=== PATIENT | male | born 1950 | race Caucasian/White ===

== ENCOUNTER 2016-08-28 05:53 | Outpatient (CLI) | payer MEDICARE ==
[~2016-08-28] VITALS: Ht 175.3 cm; Wt 158.9 kg
[~2016-08-28 05:53] MED LIST: ADV500-14 IH; ALBU2.5V4 NEB; AMOX-355 PO; APIX5TAB PO; ASPI-808 PO; ASPI-983 PO; BETA15CR37 TP; BLOO-662 MC; CALC-9 PO; CEFD300C3 PO; CEPH500C PO; CETI1TAB61 PO; CIPR-225 PO; CIPR500T4 PO; CLIN150C17 PO; CLOB15CR2 TP; CLOP75TA; CLOP75TA28 PO; DILT240C47 PO; DOCU100C37 PO; FINA5TAB6 PO; FLUT1BLS IH; FLUT1DIS27 IH; FRSM20T PO; FURO20TA4 PO; FURO40TA4 PO; GLUC1TAB9 PO; GUAI600T59 PO; HYDR-3816 PO; HYDR-700 PO; INSU100C4 SQ; INSU100I10 SQ; INSU100I14 SQ; LACT10SO PO; LEVO25TA5 PO; LEVO750T24 PO; LOSA100T16 PO; LOSA100T28 PO; LVT.025T PO; MAGN400T6 PO; MELO-195 PO; MELO15TA39 PO; METF-380; METO-272 PO; METO5TAB6 PO; MONT10TA24 PO; MTL5T PO; NAPR220T66 PO; NFIPRATRNS NSEACH; NITR-65 PO; ONDA8TAB13 SL; PHEN-640 PO; POTA20TA15 PO; POTA20TA8 PO; PRD10T PO; PRD20T PO; ROSU10TA12; ROSU5TAB PO; ROSU5TAB9 PO; RT-ALBUINH IH; SENN25TA8 PO; SPIR25TA3 PO; TAMS0.4C2 PO; TAMS0.4C98 PO; TIOT4MIS2 IH; [UNRECOGNIZED DRUG - CODE] INH
== END 2016-08-28 13:37 ==
LOC: PREOP 05:53
PROVIDERS: ATTEND Surgery Pediatric Surgery
DX: Z01.818 Encounter for other preprocedural examination (principal); K92.1 Melena; K21.9 Gastro-esophageal reflux disease without esophagitis

== ENCOUNTER 2016-08-30 08:54 | Day surgery (SDC) | payer OTHER, MEDICARE ==
[~2016-08-30] VITALS: Ht 175.3 cm; Wt 158.9 kg
[~2016-08-30 08:54] MED LIST changes: -PANT40TA2 PO
[2016-08-30] MEDS ORDERED: NS IV 500 ML 500 ML ONE (09:20)
[2016-08-30] MEDS ORDERED: LIDOCAINE JELLY 2% (XYLOCAINE) 5 ML TUBE MM PRN (10:00)
[2016-08-30] MEDS ORDERED: FLUMAZENIL (ROMAZICON) 0.1 MG/ML 5 ML VIAL INJ PRN (10:00)
[2016-08-30] MEDS ORDERED: HURRICAINE EXT TUBE (BENZOCAINE) XX PRN (10:00)
[2016-08-30] MEDS ORDERED: fentaNYL INJECTION 100 MCG/2 ML AMP IVP PRN (10:00)
[2016-08-30] MEDS ORDERED: NS IV 500 ML 500 ML IV SCH (10:00)
[2016-08-30] MEDS ORDERED: NALOXONE 0.4 MG/ML 1 ML (NARCAN) VIAL IVP PRN (10:00)
[2016-08-30] MEDS ORDERED: MIDAZOLAM 2 MG/2 ML (VERSED) VIAL IVP PRN (10:00)
[2016-08-30 10:04] VITALS: BP 132/70
--- NOTE | 2016-08-30 10:27 | Progress Note-Pre Operative ---
Pre-Operative Progress Note H&P Reviewed The H&P was reviewed, patient examined and no changes noted. Date H&P Reviewed: Aug 30, 2016 Time H&P Reviewed: 09:52 Pre-Operative Diagnosis: PUD, dark tarry stools HAWK GREENWOOD MD Aug 30, 2016 10:27 am
[2016-08-30] MEDS ORDERED: morphine INJ 10 MG/ML 1ML (SYR OR VIAL) IV PRN (10:30)
[2016-08-30] MEDS ORDERED: ONDANSETRON 4 MG/2 ML (SDV) Z0FRAN IV PRN (10:30)
[2016-08-30] MEDS ORDERED: HYDROcodone/APAP 5 MG/325 MG (LORTAB) TAB PO PRN (10:30)
[2016-08-30] MEDS ORDERED: ACETAMINOPHEN 325 MG TABLET/CAPLET (TYLENOL) PO PRN (10:30)
[2016-08-30] MEDS ORDERED: ROSU5TAB PO (10:33)
[2016-08-30] MEDS ORDERED: MIDAZOLAM 2 MG/2 ML (VERSED) VIAL ONE (11:32)
[2016-08-30] MEDS ORDERED: PROPOFOL INJECTION 50 ML IV ONE (11:32)
[2016-08-30] MEDS ORDERED: proPOfol 200 MG/20 ML (DIPRIVAN) VIAL IV ONE (12:11)
--- NOTE | 2016-08-30 12:39 | Progress Note-Post Operative ---
Post-Operative Progess Note Pre-Operative Diagnosis PUD, dark tarry stools Post-Operative Diagnosis reflux esophagitis(class B), small HH(1cm), moderate gastritis. chronic stage 2 ext and int hemorrhoids, moderate sigmoid diverticulosis, splenic flexure polyp. Post-Op Procedure Note Date of Procedure: Aug 30, 2016 Name of Procedure: EGD with bx. Colonoscopy with bx. Anesthesia Type MAC Estimated blood loss (mL): minimal Specimen(s) collected GE jxn, antrum, splenic flexure polyp HAWK GREENWOOD MD Aug 30, 2016 12:39 pm
[2016-08-30] MEDS ORDERED: PANT40TA2 PO (12:40)
--- NOTE | 2016-08-30 12:41 | Discharge Inst-Surgical ---
D/C Lap Instructions-TIMO New, Converted, or Re-Newed RX: RX on Chart Follow Up 5 years Activity as tolerated High Fiber Diet 25g or more per day Avoid Alcohol, Caffeine, Spicy [place] and Acid foods. Drink 64 fluid oz or more of fluids per day. Symptoms to Report: Fever over 101 degree F, Nausea/Vomiting If any problems/questions: Contact your physician or go to Emergency Room HAWK GREENWOOD MD Aug 30, 2016 12:41 pm
[2016-08-30] MEDS ORDERED: HURRICAINE EXT TUBE (BENZOCAINE) ONE (12:47)
[2016-08-30] MEDS ORDERED: LIDOCAINE JELLY 2% (XYLOCAINE) 5 ML TUBE ONE (12:47)
[2016-08-30 12:50] VITALS: BP 115/59
[2016-08-30 13:20] VITALS: BP 130/70
[2016-08-30 13:25] VITALS: BP 130/70
--- NOTE | 2016-08-31 12:41 | OPERATIVE REPORT ---
PROCEDURE PHYSICIAN: HAWK JOY DATE OF PROCEDURE: 08/30/2016 ATTENDING PHYSICIAN: Dr. Hutton. PREOPERATIVE DIAGNOSIS: 1. Peptic ulcer disease. 2. Screening colonoscopy. POSTOPERATIVE DIAGNOSES: 1. Reflux esophagitis, class B. 2. Small hiatal hernia, approximately 1 cm in size. 3. Moderate severity gastritis. 4. Chronic, stage II external and internal hemorrhoids. 5. Moderate sigmoid diverticulosis. 6. Polyp at near the splenic flexure, approximately 3 mm in size. PROCEDURE: 1. EGD with biopsy. 2. Colonoscopy with biopsy. SURGEON: Dr. Joy. ANESTHESIA: Monitored anesthesia care, administered by anesthesia. ESTIMATED BLOOD LOSS: Minimal. FINDINGS: EGD: 1. Reflux esophagitis, class B. 2. Small hiatal hernia, approximately 1 cm in size. 3. Moderate severity gastritis. 4. Pylorus and duodenum appeared normal. COLONOSCOPY: 1. Chronic stage II external and internal hemorrhoids, not actively edematous or inflamed and no bleeding. 2. Prostate gland was palpable and appeared normal. 3. There was a moderate sigmoid diverticulosis. 4. A small polyp at the splenic flexure approximately 3 mm in size. DISPOSITION: The patient tolerated the procedure well. BRIEF HISTORY: Mr. Augutso Ferraro is a 65-year-old male with a history of multiple medical problems including COPD, hypertension, hypercholesterolemia, as well as history of myocardial infarction in November 2015 and diabetes. He has also recently admitted for pneumonia approximately one month ago and admitted for 3 days. He reports that he did receive steroids and at the time he noticed dark tarry stools followed by black stools. He has a history of peptic ulcer disease. He also reports intermittent episodes of a reflux type of symptoms. He also reports his last colonoscopy was in 1989 due to what sounds to be anorectal pain; however only benign findings. He does not report any family history of colon cancer. PROCEDURE: The patient was brought to the endoscopy suite, laid in the left lateral decubitus position. After adequate IV pain medications and monitored anesthesia care administered by anesthesia, the mouthpiece was applied. The endoscope was placed in the mouth, visualizing the pharynx and hypopharyngeal region. Vocal cords, epiglottis and vallecula identified and appeared to be normal. The endoscope was then gently intubated in the esophageal opening and the esophagus insufflated. The endoscope was advanced through the first, second, and 3rd portions esophagus. At the level of the GE junction, a reflux esophagitis, class B identified. There were no ulcers or strictures identified in this region. A biopsy was taken with forceps with visualization of good hemostasis. The endoscope was then easily advanced into stomach and endoscope retroflexed visualizing a small hiatal hernia, approximately 1 cm in size. There was a moderate severity gastritis more towards the stomach antrum. There were no polyps, ulcers or any neoplasms identified. A biopsy was taken of the stomach antrum, with forceps with visualization of good hemostasis. The endoscope was then advanced through the pylorus and first and second portions of duodenum which appeared normal. The endoscope was slowly withdrawn while taking a second look and suctioning of residual air with no additional findings. The patient tolerated this portion of the procedure well. For his reflux esophagitis, hiatal hernia and gastritis, we will start him on Protonix 40 mg daily, as well as the necessary lifestyle and diet accommodation including smaller, more frequent meals, avoidance of eating at night, as well as head elevation while lying supine. He also needs to avoid caffeinated beverages, spicy, greasy and acidic foods and proceed with a weight loss regimen as well. Under the same monitored anesthesia care, we then proceeded with the colonoscopy portion of the procedure. A digital rectal examination was performed, which revealed chronic, stage II external and internal hemorrhoids which were not actively edematous or inflamed and no bleeding. Normal sphincter tone was felt and there were no palpable masses. Prostate gland was palpable and appeared normal. The endoscope was then intubated into the anus, rectum gently insufflated. The endoscope was then advanced into valves of [place] the rectum with no polyps or any neoplasms identified. We then proceeded through the sigmoid colon where a moderate sigmoid diverticulosis identified. There were no mucosal inflammatory changes to indicate any active diverticulitis. The endoscope was then advanced through descending colon. At approximately the splenic flexure a small sessile polyp, approximately 3 mm in size was identified. This was biopsied and destroyed using forceps and electrocautery with visualization of good hemostasis. The endoscope was then advanced through the remainder of the transverse, and ascending colon to the cecum. These segments were normal. The endoscope was then slowly withdrawn while taking a second look and suctioning residual air with no additional findings. The patient tolerated the procedure well. We will have him continue with medical management with a high fiber diet with least 30 grams of fiber per day, as well as at least 64 fluid ounces of water daily to promote soft stools on a daily basis. We will recommend a follow-up colonoscopy in 5 years. Job ID: [id number] Dictated Date: 08/30/2016 12:47:53 American Sign Language Interpreter Date: 08/31/2016 12:30:45 / elvie BOYER
== END 2016-08-30 13:25 | disposition home or self-care (01) ==
LOC: SDC 08:54
PROVIDERS: ATTEND Surgery Pediatric Surgery
DX: Z12.11 Encounter for screening for malignant neoplasm of colon (principal); K21.0 Gastro-esophageal reflux disease with esophagitis; K44.9 Diaphragmatic hernia without obstruction or gangrene; K64.1 Second degree hemorrhoids; K57.90 Diverticulosis of intestine, part unspecified, without perforation or abscess without bleeding; K63.5 Polyp of colon

== ENCOUNTER → 2016-08-30 | Outpatient (CLI) | payer OTHER, MEDICARE ==
[~2016-08-30] MED LIST changes: +PANT40TA2 PO
--- NOTE | 2016-08-30 14:14 | Diagnostic Imaging Report ---
INDICATION: Pneumonia. TECHNIQUE: PA and lateral views of the chest were obtained. COMPARISON: 07/26/2016. FINDINGS: There is persistent cardiomegaly and pulmonary venous congestion. Mixed interstitial and alveolar density in both lungs has remained stable. There is no evidence of pneumothorax or new infiltrate. There is no significant pleural effusion. Post operative changes in the sternum are again noted. IMPRESSION: The pulmonary densities have not significantly changed and may reflect edema and/or pneumonitis. There is no consolidation or new infiltrate identified. Dictated by: Dictated on workstation # [id number]
== END ==
LOC: RAD 13:54
PROVIDERS: ATTEND Nurse Practitioner Family
DX: J18.9 Pneumonia, unspecified organism (principal)
CPT/HCPCS: 71020

== ENCOUNTER 2016-12-22 11:20 | Outpatient (RCR) | payer OTHER, MEDICARE ==
[~2016-12-22 11:20] MED LIST changes: +PANT40TA2 PO
== END 2016-12-22 12:04 | disposition home or self-care (01) ==
PROVIDERS: ATTEND Orthopaedic Surgery
DX: M25.551 Pain in right hip (principal)

== ENCOUNTER 2017-04-21 14:11 | Inpatient (IN) | payer OTHER, MEDICARE ==
[~2017-04-21] VITALS: Ht 175.3 cm; Wt 161.3 kg
[~2017-04-21 14:11] MED LIST changes: -GUAI600T59 PO; +GUAI600T86 PO; -METO-272 PO; +METO-370 PO
--- OUTSIDE RECORDS SUMMARY | 2017-04-21 14:18 | XMS REPORT | Clinical Summary ---
Author Author User, [employer] America Hutton DO, FACP Address Unknown Phone Allergies, Adverse Reactions, Alerts Allergy Name Reaction Description Start Date Severity Status Provider CODEINE Critical Active America Hutton [facility] NATURAL FISH OIL nausea Critical Active America Hutton STATINS nausea Critical No Longer Active America Hutton FISH OIL nausea Critical No Longer Active America Hutton Conditions or Problems Problem Name Problem Code Onset Date Status Entry Date Provider Comment Standard Description Annotate DIABETES MELLITUS, NONINSULIN DEPENDENT (NIDDM) 250.00 Active America Hutton Diabetes mellitus without mention of complication, type II or unspecified type, not stated as uncontrolled HYPERTENSION 401.1 Active America Hutton Benign essential hypertension HYPERCHOLESTEROLEMIA 272.0 Active America Hutton Pure hypercholesterolemia CAD 414.00 Active America Hutton Coronary atherosclerosis of unspecified type of vessel, [place] or graft CHRONIC AIRWAY OBSTRUCTION (COPD) 496 Resolved America Hutton Chronic airway obstruction, not elsewhere classified VACCINE AGAINST INFLUENZA V04.81 Resolved America Hutton Need for prophylactic vaccination and inoculation against influenza URINARY FREQUENCY 788.41 Resolved America Hutton Urinary frequency UTI 599.0 Resolved America Hutton Urinary tract infection, site not specified PROSTATITIS, ACUTE 601.0 Resolved America Hutton Acute prostatitis INFLUENZA W/RESPIRATORY MANIFESTATION NEC 487.1 Resolved America Hutton Influenza with other respiratory manifestations FEVER 780.6 Resolved America Hutton Fever and other physiologic disturbances of temperature regulation DERMATITIS 692.9 Resolved America Hutton Contact dermatitis and other eczema, unspecified cause WHEEZING 786.07 Resolved America Hutton Wheezing ASTHMA, CHRN OBST W/(ACUTE) EXACERBATION 493.22 Resolved America Hutton Chronic obstructive asthma, with (acute) exacerbation PHARYNGITIS, ACUTE 462 Resolved America Hutton Acute pharyngitis HYPOKALEMIA 276.8 Active America Hutton Hypopotassemia HYPOMAGNESEMIA 275.2 Active America Hutton Disorders of magnesium metabolism SINUSITIS, SPHENOIDAL, ACUTE 461.3 Resolved America Hutton Acute sphenoidal sinusitis RESPIRATORY FAILURE, ACUTE 518.81 Resolved America Hutton Acute respiratory failure LUNG ABSCESS 513.0 Resolved America Hutton Abscess of lung TESTOSTERONE DEFICIENCY 257.2 Active America Hutton Other testicular hypofunction COUGH 786.2 Resolved America Hutton Cough PNEUMONIA 486 Resolved America Hutton Pneumonia, organism unspecified BRONCHIECTASIS 494.0 Resolved America Hutton Bronchiectasis without acute exacerbation MASS, LUNG 786.6 Resolved America Hutton Swelling, mass, or lump in chest CHF 428.0 Active America Hutton Congestive heart failure, unspecified CATARACT ASSOCIATED WITH OTHER SYNDROMES 366.44 Resolved America Hutton Cataract associated with other syndromes BACK PAIN 724.5 Resolved America Hutton Backache, unspecified LEUKOCYTOSIS 288.60 Resolved America Hutton Leukocytosis, unspecified HEALTH SCREENING V70.0 Resolved America Hutton Routine general medical examination at a health care facility URTICARIA, ACUTE 708.9 Resolved America Hutton Unspecified urticaria DERMATITIS 692.9 Resolved America Hutton Contact dermatitis and other eczema, unspecified cause BRONCHITIS 490 Inactive America Hutton Bronchitis, not specified as acute or chronic BRONCHITIS 490 Inactive America Hutton Bronchitis, not specified as acute or chronic WHEEZING 786.07 Inactive America Hutton Wheezing BRONCHITIS 490 Inactive America Hutton Bronchitis, not specified as acute or chronic WHEEZING 786.07 Inactive America Chaveze Hutton Wheezing BRONCHITIS 490 Inactive America Hutton Bronchitis, not specified as acute or chronic WHEEZING 786.07 Inactive America Hutton Wheezing HEALTH SCREENING V70.0 Resolved America Hutton Routine general medical examination at a health care facility HYPOTHYROIDISM, PRIMARY 244.9 Active America Hutton Unspecified hypothyroidism ORTHOSTATIC DIZZINESS 780.4 Resolved America Hutton Dizziness and giddiness OBSTRUCTIVE CHRONIC BRONCHITIS, WITHOUT EXACERBATION 491.20 Active America Hutton Obstructive chronic bronchitis, without exacerbation HEALTH SCREENING V70.0 Resolved America Hutton Routine general medical examination at a health care facility INFLUENZA W/RESPIRATORY MANIFESTATION NEC 487.1 Resolved America Hutton Influenza with other respiratory manifestations ULCER OF OTHER PART OF FOOT 707.15 Active America Hutton Ulcer of other part of foot Medication List Medication Instructions Start Date Stop Date Generic Name NDC Status Provider Patient Instruction GENTAMICIN SULFATE 0.1 % CREA Apply to affected areas BID GENTAMICIN SULFATE 04434499925 Active Ramila Oates NOVOLOG 100 U/ML SOLN 20 units before meals INSULIN ASPART 82420470012 Active America Hutton ATROVENT 0.06 % SOLN 2 puffs each nostril TID prn runny nose 2014 IPRATROPIUM BROMIDE 51785690329 No Longer Active Ramila Oates NYSTATIN 395799 U/ML SUSP 5cc PO QID for 7 days NYSTATIN 52806385506 No Longer Active America Hutton TAMIFLU 75 MG CAPS 1 po BID OSELTAMIVIR PHOSPHATE 77188757835 No Longer Active America Hutton NYSTATIN 204940 UNIT/GM CREA apply to affected areas BID for 7 days NYSTATIN 42124934186 No Longer Active Ramila Oates SPIRIVA HANDIHALER 18 MCG CAPS ONE INHALATION DAILY TIOTROPIUM BROMIDE MONOHYDRATE 99718478859 Active America Hutton ATROVENT HFA 17 MCG/ACT AERS 2 puffs BID IPRATROPIUM BROMIDE HFA 81931325853 No Longer Active America Hutton PERFOROMIST 20 MCG/2ML NEBU 1 vial Neb treatment BID FORMOTEROL FUMARATE 94747922980 No Longer Active America Hutton VENTOLIN HFA 108 (90 BASE) MCG/ACT AERS 2 puffs Q 4 hours prn ALBUTEROL SULFATE 03595882677 No Longer Active America Hutton HYDROXYZINE HCL 25 MG TABS 1 PO Q 6HRS PRN HYDROXYZINE HCL 89891427591 Active Ramila Oates SINGULAIR 10 MG TABS 1 PO AT Q HS MONTELUKAST SODIUM 55456453001 Active America Hutton LANTUS SOLOSTAR 100 UNIT/ML SOLN 20 units at night INSULIN GLARGINE 10059634951 Active America Hutton AMLACTIN 12 % LOTN Apply a small amount to affected areas BID AMMONIUM LACTATE 20147910092 No Longer Active America Hutton ADVAIR DISKUS 500-50 MCG/DOSE AEPB 1 puff BID FLUTICASONE- SALMETEROL 79647831826 Active Ramila Oates POTASSIUM CHLORIDE ER 20 MEQ CR-TABS 1-2 PO BID POTASSIUM CHLORIDE 72950760756 Active Ramila Oates NOVOFINE 30G X 8 MM MISC DIRECTED DX: 250.00 INSULIN PEN NEEDLE 90879095133 Active Ramila Oates PREDNISONE 10 MG TAB 2 PO daily for for 3 days then 1 PO daily for 5 days. PREDNISONE 53059319576 No Longer Active America DE PAZ'Akira NASAL SPRAY (DEXAMETHASONE, GENTAMICIN, SALINE) 2 puffs each nostril TID for [address] STRAUSS NASAL SPRAY ( DEXAMETHASONE, GENTAMICIN, SALINE) No Longer Active America Hutton CEFDINIR 300 MG CAPS 1 PO BID for 6 weeks CEFDINIR 08106878286 No Longer Active America Hutton PREDNISONE 20 MG TAB 2 pills at once for 2 days then 1 pill daily for 5 days PREDNISONE 77035799885 No Longer Active America Hutton DOXYCYCLINE HYCLATE 100 MG CAP 1 po BID DOXYCYCLINE HYCLATE 49245576587 No Longer Active America Hutton NYSTATIN 825295 U/ML SUSP 5cc PO QID for 7 days NYSTATIN 14871118483 No Longer Active America Rivka Hutton NYSTATIN 967133 U/ML SUSP 5cc PO QID for 7 days NYSTATIN 90959484309 No Longer Active America Rikva Hutton ASPIRIN 325 MG TABS 1 PO daily ASPIRIN 06389527341 No Longer Active America Rivka Hutton COZAAR 100 MG TAB 1 PO Daily LOSARTAN POTASSIUM 06711625568 Active Ramila Oates PREDNISONE 20 MG TAB 2 pills at once for 2 days then 1 pill daily for 5 days PREDNISONE 46955734107 No Longer Active America Rivka Hutton DOXYCYCLINE HYCLATE 100 MG CAP 1 po BID DOXYCYCLINE HYCLATE 62563007482 No Longer Active America Rivka Hutton HYZAAR 100-12.5 MG TABS 1 PO daily LOSARTAN POTASSIUM-HCTZ 34961950463 No Longer Active America Rivka Hutton MOBIC 15 MG TABS 1 PO daily for arthritis MELOXICAM 98857669378 Active America Rivka Hutton PREDNISONE 20 MG TAB 2 pills at once for 2 days then 1 pill daily for 5 days PREDNISONE 23594968619 No Longer Active Americaedy Hutton LEVAQUIN 750 MG TABS 1 PO daily LEVOFLOXACIN 66161376430 No Longer Active America Rivka Hutton ANDROGEL PUMP 20.25 MG/ACT (1.62%) GEL rub in two pumps into skin daily TESTOSTERONE 84435279658 No Longer Active America Rivka Hutton ULTRAM 50 MG TAB 1 PO q 6 hrs prn TRAMADOL HCL 52626810280 No Longer Active America Rivka Hutton VITAMIN D 1000 UNIT TABS 1 PO Daily CHOLECALCIFEROL 15333069112 No Longer Active America Rivka Hutton ETODOLAC 400 MG TABS 1 PO BID ETODOLAC 64604134051 No Longer Active Americaedy Hutton LORTAB 7.5 7.5-500 MG TABS 1-2 q 4-6 hrs. prn HYDROCODONE- ACETAMINOPHEN 48518490148 No Longer Active Americaedy Hutton PLAVIX 75 MG TABS 1 po daily CLOPIDOGREL BISULFATE 09292040075 No Longer Active Americaedy Hutton ATARAX 25 MG TAB 1 PO Q6 hours prn HYDROXYZINE HCL Active Rosario Moyer PREDNISONE 20 MG TAB 2 pills at once for 2 days then 1 pill daily for 5 days PREDNISONE 60862774409 No Longer Active Americaedy Hutton ONETOUCH ULTRA BLUE STRP TEST BS QID DX: DIABETES GLUCOSE BLOOD 73084280873 Active Ramila Oates ATARAX 25 MG TAB 1 PO Q6hrs prn HYDROXYZINE HCL No Longer Active Americaedy Hutton PREDNISONE 20 MG TAB 2 pills at once for 2 days then 1 pill daily for 2 days PREDNISONE 67448286379 No Longer Active Americaedy Hutton PEN NEEDLES 5/16" 31G X 8 MM MISC as directed INSULIN PEN NEEDLE 87244681426 No Longer Active Americaedy Hutton NASONEX 50 MCG/ACT SUSP 2 Puffs ea. nostril daily MOMETASONE FUROATE 09094554332 No Longer Active Americaedy Hutton CLARINEX 5 MG TABS 1 po daily DESLORATADINE 15302395666 No Longer Active Americaedy Hutton MIRALAX POWD 1 scoop in 4oz of water PO daily POLYETHYLENE GLYCOL 3350 41919207451 No Longer Active Americaedy Hutton 10% LCD IN THC .1% Apply to arms at bedtime 10% LCD IN THC .1% No Longer Active America Rivka Hutton TRIAMCINOLONE ACETONIDE 0.025 % OINT Apply to rash on arms daily as needed. TRIAMCINOLONE ACETONIDE 00415411609 No Longer Active America Hutton ONE TOUCH ULTRA TEST STRP Test BS TID DX: Diabetes GLUCOSE BLOOD 64456376356 No Longer Active America Hutton BD U/F SHORT PEN NEEDLE 31G X 8 MM MISC as directed with insulin DX: Diabetes INSULIN PEN NEEDLE 13709660401 No Longer Active America Hutton CIALIS 20 MG TABS 1 PO as directed TADALAFIL 02629916277 No Longer Active America Hutton ONE TOUCH ULTRA MINI W/DEVICE KIT BLOOD GLUCOSE MONITORING SUPPL 76520787049 No Longer Active America Hutton PEN NEEDLES /16" 31G X 8 MM MISC as directed INSULIN PEN NEEDLE 13420016979 No Longer Active America Hutton ATARAX 25 MG TAB 1 PO Q6hrs prn itching HYDROXYZINE HCL No Longer Active America Hutton PREDNISONE 20 MG TAB 2 pills at once for 2 days then 1 pill daily for 2 days PREDNISONE 26853199954 No Longer Active America Hutton METFORMIN HCL 500 MG TABS 1 po daily METFORMIN HCL 13611294236 No Longer Active America Hutton CLOTRIMAZOLE 10 MG TROC Dissolve 1 tab in mouth QID for 14 days CLOTRIMAZOLE 78128391295 No Longer Active Ramila Oates PREDNISONE 20 MG TAB 2 pills at once for 3 days then 1 pill daily for 3 days PREDNISONE 27992359665 No Longer Active America Hutton LEVAQUIN 750 MG TABS 1 PO daily for 7 days LEVOFLOXACIN 48302280168 No Longer Active America Hutton MYCELEX 10 MG TROC Dissovle in mouth QID for 14 days CLOTRIMAZOLE 84062152566 No Longer Active Ramírez Gtz LEVITRA 20 MG TABS 1 po daily prn VARDENAFIL HCL 39090153438 No Longer Active Americaedy Hutton PROAIR HFA AERS Inhale 1-2 puffs 4x daily prn ALBUTEROL SULFATE AERS 68872208172 No Longer Active America Hutton PREDNISONE 20 MG TAB 3 pills daily at once for 2 days, 2 pills daily at once for 2 days, 1 once daily for 2 days PREDNISONE 63306752535 No Longer Active America Hutton LEVAQUIN 750 MG TABS 1 PO daily LEVOFLOXACIN 13126769606 No Longer Active America Hutton HUMALOG KWIKPEN 100 UNIT/ML SOLN 40 units before meals INSULIN LISPRO (HUMAN) 61933429717 No Longer Active America Hutton MICRONASE 2.5 MG TAB 1 PO BID GLYBURIDE No Longer Active Ramila Oates SYNTHROID 0.025 MG TAB 1 PO Daily on empty stomach LEVOTHYROXINE SODIUM 40285240822 Active Ramila Oates METFORMIN HCL 1000 MG TABS 1 PO BID METFORMIN HCL 89088692298 No Longer Active America Hutton ATROVENT 0.06 % SOLN 2 puffs each nostril TID prn runny nose 2010 IPRATROPIUM BROMIDE 99296867764 No Longer Active Americaedy Hutton VICTOZA 18 MG/3ML SOLN 0.6mg injection once daily for one month, then 1.2mg injection once daily LIRAGLUTIDE 23951444786 No Longer Active Americaedy Hutton FLONASE 50 MCG/DOSE INHALANT 2 puffs each nostril daily FLONASE 50 MCG/ DOSE INHALANT No Longer Active America Rivka Hutton ZYRTEC 10 MG TAB 1 PO QD CETIRIZINE HCL No Longer Active America Rivka Hutton FLUCONAZOLE 200 MG TABS 1 PO daily for 5 days FLUCONAZOLE 01596533858 No Longer Active America Rivka Hutton ADVAIR DISKUS 500-50 MCG/DOSE MISC 1 puff BID FLUTICASONE-SALMETEROL 35063494317 No Longer Active America Rivka Hutton LEVAQUIN 500 MG TAB 1 PO QD LEVOFLOXACIN 76778906573 No Longer Active America Rivka Hutton ASTEPRO 137 MCG/SPRAY SOLN 2 puffs each nostril QHS AZELASTINE HCL 25770561795 No Longer Active America Rivka Hutton SPIRIVA HANDIHALER 18 MCG CAPS 1 inhalation daily TIOTROPIUM BROMIDE MONOHYDRATE 37882071578 No Longer Active America Rivka Hutton AZALEA-D 24 HOUR 180-240 MG [id number] 1 PO daily FEXOFENADINE-PSEUDOEPHEDRINE 66231869581 No Longer Active America Rivka Hutton BACTRIM DS 800-160 MG TAB 1 PO BID TRIMETHOPRIM- SULFAMETHOXAZOLE 94850458420 No Longer Active America Rivka Hutton LEVAQUIN 500 MG TAB 1 PO QD LEVOFLOXACIN 04558135419 No Longer Active America Rivka Hutton PREDNISONE 20 MG TAB 2 pills at once for 2 days then 1 pill daily for 2 days PREDNISONE 81066025514 No Longer Active America Rivka Hutton ROBITUSSIN A-C 10-100 MG/5ML SYRUP 1 teaspoon PO Q 4-6 hr prn ROBITUSSIN A-C 10-100 MG/5ML SYRUP No Longer Active America Rivka DE PAZ'S NASAL SPRAY (DEXAMETHASONE, GENTAMICIN, SALINE) 2 puffs each nostril TID for [address] STRAUSS NASAL SPRAY ( DEXAMETHASONE, GENTAMICIN, SALINE) No Longer Active America Hutton LEVAQUIN 750 MG TABS 1 po daily for 7 days LEVOFLOXACIN 37827887227 No Longer Active America Hutton BACTRIM DS 800-160 MG TAB 1 PO BID TRIMETHOPRIM- SULFAMETHOXAZOLE 02120446282 No Longer Active America Hutton HUMALOG PEN 100 UNIT/ML SOLN 25 units twice daily INSULIN LISPRO (HUMAN) 02135950373 No Longer Active America Hutton LANTUS FOR OPTICLIK 100 UNIT/ML SOLN 20 units injection every night 09/09 INSULIN GLARGINE 89143561666 No Longer Active America Hutton ROBITUSSIN A-C 10-100 MG/5ML SYRUP 1 teaspoon PO Q 4-6 hr prn ROBITUSSIN A-C 10-100 MG/5ML SYRUP No Longer Active Ramila STRAUSS NASAL SPRAY (DEXAMETHASONE, GENTAMICIN, SALINE) 2 puffs each nostril TID for [address] STRAUSS NASAL SPRAY ( DEXAMETHASONE, GENTAMICIN, SALINE) No Longer Active America Hutton AUGMENTIN 875-125 MG TAB 1 PO BID AMOXICILLIN-POT CLAVULANATE 57221065163 No Longer Active America Hutton ROBITUSSIN A-C 10-100 MG/5ML SYRUP 1 teaspoon PO Q 4-6 hr prn ROBITUSSIN A-C 10-100 MG/5ML SYRUP No Longer Active America STRAUSS NASAL SPRAY (DEXAMETHASONE, GENTAMICIN, SALINE) 2 puffs each nostril TID for [address] STRAUSS NASAL SPRAY ( DEXAMETHASONE, GENTAMICIN, SALINE) No Longer Active Barron Joi LEVAQUIN 500 MG TAB 1 PO QD LEVOFLOXACIN 95559641505 No Longer Active Barron Brunswick PREDNISONE 20 MG TAB 2 pills at once for 2 days then 1 pill daily for 2 days PREDNISONE 34535731509 No Longer Active Americaedy DE PAZ'Akira NASAL SPRAY (DEXAMETHASONE, GENTAMICIN, SALINE) 2 puffs each nostril TID for [address] STRAUSS NASAL SPRAY ( DEXAMETHASONE, GENTAMICIN, SALINE) No Longer Active America Hutton AMOXICILLIN 500 MG CAP 1 PO TID AMOXICILLIN 92149893610 No Longer Active America Hutton LISINOPRIL 10 MG TABS 1 PO Daily LISINOPRIL 76336704199 No Longer Active Ramila Oates FLOMAX 0.4 MG CP24 1 PO QHS for prostate TAMSULOSIN HCL 23527346167 No Longer Active America Hutton MAGNESIUM OXIDE 400 MG TABS 1 PO daily MAGNESIUM OXIDE 30513491963 Active Suyapa Christie LASIX 20 MG TAB Take 2 PO BID FUROSEMIDE 96825232215 Active Ramial Loeratis KEFLEX 500 MG CAP 1 PO TID for 7 days CEPHALEXIN 45227319351 No Longer Active America Hutton ATROVENT 0.06 % SOLN 2 puffs each nostril TID prn runny nose 2008 IPRATROPIUM BROMIDE 70058472267 No Longer Active America Hutton PREDNISONE 20 MG TAB 3 pills daily at once for 3 days, 2 pills daily at once for 3 days, 1 once daily for 3 days PREDNISONE 74330008797 No Longer Active America Hutton LEVAQUIN 500 MG TAB 1 PO QD LEVOFLOXACIN 91718124074 No Longer Active America Hutton CRESTOR 5 MG TABS 1 PO daily ROSUVASTATIN CALCIUM 22007929028 Active America Hutton PREDNISONE 20 MG TAB 2 pills at once for 2 days then 1 pill daily for 2 days PREDNISONE 65719033699 No Longer Active America DE PAZ'Akira NASAL SPRAY (DEXAMETHASONE, GENTAMICIN, SALINE) 2 puffs each nostril TID for [address] STRAUSS NASAL SPRAY ( DEXAMETHASONE, GENTAMICIN, SALINE) No Longer Active America Hutton AUGMENTIN 875-125 MG TAB 1 PO BID AMOXICILLIN-POT CLAVULANATE 84077617077 No Longer Active America Hutton BIAXIN 500 MG TAB 1 PO BID for 7 days CLARITHROMYCIN 84133611896 No Longer Active Da Tse ALBUTEROL SULFATE (2.5 MG/3ML) 0.083% NEBU 1 treatment QID ALBUTEROL SULFATE 55894683089 Active America Hutton ROBITUSSIN A-C 10-100 MG/5ML SYRUP 1 teaspoon PO Q 4-6 hr prn ROBITUSSIN A-C 10-100 MG/5ML SYRUP 87597256794 No Longer Active Y Y DOXYCYCLINE HYCLATE 100 MG CAP 1 po BID. Take with food to avoid nausea. 2007 DOXYCYCLINE HYCLATE 69567089532 No Longer Active Y Y BIAXIN 500 MG TAB 1 PO BID for lung infection CLARITHROMYCIN 85152799312 No Longer Active America Hutton MEVACOR 40 MG TABS 1 PO daily LOVASTATIN 09457666868 No Longer Active America Hutton BYETTA 10 MCG PEN SOLN i injection am and at supper(On hold 09/04/07 while re- starting Humalog) EXENATIDE SOLN 26278321513 No Longer Active America Hutton LEVITRA 10 MG TABS 1 PO as directed VARDENAFIL HCL 91937906213 No Longer Active Tyler Bolton AUGMENTIN 500-125 MG TAB 1 PO BID AMOXICILLIN-POT CLAVULANATE 75634499998 No Longer Active Ramila DE PAZ'Akira NASAL SPRAY (DEXAMETHASONE, GENTAMICIN, SALINE) 2 puffs each nostril TID for [address] STRAUSS NASAL SPRAY ( DEXAMETHASONE, GENTAMICIN, SALINE) No Longer Active Ramila Oates KENALOG 1 injection monthly, 2nd week of the month KENALOG No Longer Active America Hutton VITAMIN B-12 1 injection monthly VITAMIN B-12 No Longer Active America Hutton CHANTIX 1 MG TABS as directed VARENICLINE TARTRATE 09541360372 No Longer Active Americaedy Hutton LEVEMIR FLEXPEN SOLN 15 units QHS INSULIN DETEMIR SOLN 77245525576 No Longer Active Americaedy Hutton CIALIS 20 MG TABS 1po daily prn TADALAFIL 03050177189 No Longer Active Americaedy Hutton VIAGRA 50 MG TABS Take 1 PO prn SILDENAFIL CITRATE 66295921531 No Longer Active Americaedy Hutton LOTRISONE 1-0.05 % CREA Apply to both arms BID CLOTRIMAZOLE-BETAMETHASONE 23109633345 No Longer Active Americaedy Hutton LEVAQUIN 500 MG TAB 1 PO QD LEVOFLOXACIN 20748524047 No Longer Active Americaedy Hutton SPIRONOLACTONE 25 MG TABS 2 po daily SPIRONOLACTONE 57349078052 Active Ramila Oates TAMIFLU 75 MG CAPS 1 po BID x 5 days OSELTAMIVIR PHOSPHATE 49194087559 No Longer Active Americaedy Hutton LANTUS FOR OPTICLIK 100 UNIT/ML SOLN 10 units QHS INSULIN GLARGINE 79442928223 No Longer Active America Rivka Hutton ATROVENT 0.06 % SOLN 2 puffs each nostril BID x 7 days IPRATROPIUM BROMIDE 27508559731 No Longer Active America Chaveze Anni AUGMENTIN 875-125 MG TABS 1 po BID for 7 days. AMOXICILLIN-POT CLAVULANATE 98782059338 No Longer Active America Hutton AZALEA 180 MG TABS 1 po daily FEXOFENADINE HCL 29720159968 No Longer Active Americaedy Chaveze Anni PYRIDIUM 200 MG TABS 1 po TID for 3 days PHENAZOPYRIDINE HCL 17742140167 No Longer Active America Chaveze Anni ZAROXOLYN 5 MG TABS 1 PO daily METOLAZONE Active Ramila Oates NOVOLOG PENFILL SOLN 4 units before meals INSULIN ASPART SOLN 09005646754 No Longer Active America Hutton Immunizations Vaccine Administration Date Value Standard Description pneumococcal immunization administered Done pneumococcal polysaccharide vaccine, 23 valent Influenza vaccine given Done influenza virus vaccine, unspecified formulation Influenza vaccine given done influenza virus vaccine, unspecified formulation Influenza vaccine given 05/23 received influenza virus vaccine, unspecified formulation Vital Signs Date Name Value Unit Range Description blood pressure, diastolic - 8462-4 68 mm[Hg] BP parson blood pressure, systolic - 8480-6 128 mm[Hg] BP sys pulse rate E&M - 8867-4 84 /min Heart rate respiratory rate E&M - 9279-1 14 /min Resp rate weight E&M - 3141-9 330 [lb_av] Weight Measured blood pressure, diastolic - 8462-4 60 mm[Hg] BP parson blood pressure, systolic - 8480-6 120 mm[Hg] BP sys pulse rate E&M - 8867-4 68 /min Heart rate respiratory rate E&M - 9279-1 14 /min Resp rate temperature E&M 98.2 [degF] Body temperature weight E&M - 3141-9 330 [lb_av] Weight Measured blood pressure, diastolic - 8462-4 60 mm[Hg] BP parson blood pressure, systolic - 8480-6 125 mm[Hg] BP sys pulse rate E&M - 8867-4 70 /min Heart rate respiratory rate E&M - 9279-1 14 /min Resp rate temperature E&M 98.6 [degF] Body temperature weight E&M - 3141-9 330 [lb_av] Weight Measured blood pressure, diastolic - 8462-4 70 mm[Hg] BP parson blood pressure, systolic - 8480-6 130 mm[Hg] BP sys pulse rate E&M - 8867-4 80 /min Heart rate respiratory rate E&M - 9279-1 14 /min Resp rate temperature E&M 98.5 [degF] Body temperature weight E&M - 3141-9 330 [lb_av] Weight Measured blood pressure, diastolic - 8462-4 76 mm[Hg] BP parson blood pressure, systolic - 8480-6 120 mm[Hg] BP sys pulse rate E&M - 8867-4 76 /min Heart rate respiratory rate E&M - 9279-1 14 /min Resp rate weight E&M - 3141-9 327 [lb_av] Weight Measured blood pressure, diastolic - 8462-4 70 mm[Hg] BP parson blood pressure, systolic - 8480-6 140 mm[Hg] BP sys pulse rate E&M - 8867-4 50 /min Heart rate respiratory rate E&M - 9279-1 14 /min Resp rate temperature E&M 98.6 [degF] Body temperature weight E&M - 3141-9 320 [lb_av] Weight Measured Diagnostic Results Date Name Value Unit Range Description Clinical Lists Update: CBC,[facility] - Chemistry urea nitrogen, blood 22 mg/dL chloride, serum 93 mmol/L glucose, plasma fasting 294 mg/dL carbon dioxide, venous blood 30.0 mmol/L bilirubin, serum, total 0.5 mg/dL creatinine, serum 1.4 mg/dL potassium, serum 3.9 mmol/L protein, total, serum 7.1 g/dL albumin, serum 3.0 g/dL anion gap, serum 12 alkaline phosphatase, serum 71 U/L aspartate aminotransferase (SGOT), serum 11 U/L alanine aminotransferase (SGPT), serum 18 U/L Estimated Glomerular Filtration Rate (calc) 55 mL/min/1.73m2 calcium, serum 9.6 mg/dL sodium, serum 131 mmol/L Clinical Lists Update: CBC,[facility] - Hematology hematocrit, blood 45 % red blood cell distribution width 13.7 % hemoglobin, blood 14.2 g/dL mean corpuscular volume, RBC 95 fL platelet count 297 10*3/mm3 leukocyte count, blood 15.0 10*3/mm3 erythrocyte (RBC) count 4.76 10*6/mm3 Clinical Lists Update: CBC,[facility] RE: [facility] - Chemistry albumin, serum 4.0 g/dL alkaline phosphatase, serum 87 U/L urea nitrogen, blood 22 mg/dL calcium, serum 10.4 mg/dL chloride, serum 97 mmol/L carbon dioxide, venous blood 26 mmol/L creatinine, serum 1.42 mg/dL potassium, serum 3.8 mmol/L protein, total, serum 7.8 g/dL aspartate aminotransferase (SGOT), serum 13 U/L alanine aminotransferase (SGPT), serum 16 U/L bilirubin, serum, total 0.5 mg/dL sodium, serum 134 mmol/L glucose, plasma fasting 205 mg/dL Estimated Glomerular Filtration Rate (calc) 50 mL/min/1.73m2 Clinical Lists Update: CBC,[facility] RE: [facility] - Hematology erythrocyte (RBC) count 4.75 10*6/mm3 mean corpuscular volume, RBC 87 fL platelet count 342 10*3/mm3 red blood cell distribution width 13.3 % hemoglobin, blood 14.0 g/dL hematocrit, blood 41 % leukocyte count, blood 13.3 10*3/mm3 Clinical Lists Update: CMP,Chol,Trig,TSH,Free T4,HgA1c - Chemistry Estimated Glomerular Filtration Rate (calc) 70 mL/min/1.73m2 glucose, plasma fasting 161 mg/dL anion gap, serum 14 sodium, serum 133 mmol/L triglyceride, serum, fasting 207 mg/dL bilirubin, serum, total 0.5 mg/dL alanine aminotransferase (SGPT), serum 12 U/L aspartate aminotransferase (SGOT), serum 12 U/L protein, total, serum 7.2 g/dL potassium, serum 3.5 mmol/L thyroid stimulating hormone, serum 1.73 u[iU]/mL hemoglobin A1C, blood, as % of total hemoglobin 9.2 % thyroxine, serum, free 0.90 ng/dL creatinine, serum 1.1 mg/dL carbon dioxide, venous blood 23.0 mmol/L cholesterol, serum 144 mg/dL chloride, serum 100 mmol/L calcium, serum 9.3 mg/dL urea nitrogen, blood 13 mg/dL alkaline phosphatase, serum 71 U/L albumin, serum 4.2 g/dL Clinical Lists Update: CMP,FLP,TSH,FREE T4,HGA1C - Chemistry potassium, serum 4.0 mmol/L triglyceride, serum, fasting 126 mg/dL sodium, serum 133 mmol/L urea nitrogen, blood 19 mg/dL protein, total, serum 7.1 g/dL calcium, serum 9.5 mg/dL glucose, plasma fasting 201 mg/dL chloride, serum 98 mmol/L aspartate aminotransferase (SGOT), serum 10 U/L cholesterol, serum 135 mg/dL anion gap, serum 12 carbon dioxide, venous blood 27.0 mmol/L alanine aminotransferase (SGPT), serum 10 U/L creatinine, serum 1.3 mg/dL albumin, serum 4.1 g/dL thyroxine, serum, free 0.80 ng/dL bilirubin, serum, total 0.4 mg/dL HDL cholesterol, serum 32.0 mg/dL hemoglobin A1C, blood, as % of total hemoglobin 9.6 % cholesterol/HDL ratio, serum, percent 4.2 thyroid stimulating hormone, serum 1.34 u[iU]/mL Estimated Glomerular Filtration Rate (calc) 62 mL/min/1.73m2 LDL cholesterol, serum 78 mg/dL alkaline phosphatase, serum 82 U/L Clinical Lists Update: CMP,FLP,TSH,FREE T4,MICROALBUMIN - Chemistry alkaline phosphatase, serum 73 U/L urea nitrogen, blood 16 mg/dL calcium, serum 9.7 mg/dL chloride, serum 98 mmol/L cholesterol, serum 139 mg/dL carbon dioxide, venous blood 27.0 mmol/L creatinine, serum 1.2 mg/dL thyroxine, serum, free 0.95 ng/dL HDL cholesterol, serum 27.0 mg/dL thyroid stimulating hormone, serum 1.83 u[iU]/mL LDL cholesterol, serum 77 mg/dL potassium, serum 3.4 mmol/L protein, total, serum 7.4 g/dL aspartate aminotransferase (SGOT), serum 16 U/L alanine aminotransferase (SGPT), serum 19 U/L bilirubin, serum, total 0.5 mg/dL triglyceride, serum, fasting 177 mg/dL sodium, serum 131 mmol/L anion gap, serum 9 cholesterol/HDL ratio, serum, percent 5.1 glucose, plasma fasting 150 mg/dL Estimated Glomerular Filtration Rate (calc) 62 mL/min/1.73m2 albumin, serum 4.1 g/dL Clinical Lists Update: CMP,FLP,TSH,FREE T4,MICROALBUMIN - Urinalysis microalbumin, urine, semiquantitative 0.3 mg/dL Clinical Lists Update: ER LABS - Chemistry Estimated Glomerular Filtration Rate (calc) 43 mL/min/1.73m2 glucose, plasma fasting 237 mg/dL albumin, serum 4.0 g/dL alkaline phosphatase, serum 95 U/L urea nitrogen, blood 21 mg/dL calcium, serum 10.1 mg/dL chloride, serum 97 mmol/L carbon dioxide, venous blood 24 mmol/L anion gap, serum 17 sodium, serum 134 mmol/L bilirubin, serum, total 0.3 mg/dL alanine aminotransferase (SGPT), serum 17 U/L aspartate aminotransferase (SGOT), serum 13 U/L protein, total, serum 7.5 g/dL potassium, serum 3.8 mmol/L creatinine, serum 1.64 mg/dL Clinical Lists Update: ER LABS - Hematology erythrocyte (RBC) count 4.92 10*6/mm3 leukocyte count, blood 19.36 10*3/mm3 mean corpuscular volume, RBC 89.0 fL red blood cell distribution width 13.0 % hemoglobin, blood 15.2 g/dL platelet count 310 10*3/mm3 hematocrit, blood 43.9 % Clinical Lists Update: HgA1c - Chemistry hemoglobin A1C, blood, as % of total hemoglobin 9.30 % Clinical Lists Update: HgA1c DR [facility] LABS - Chemistry hemoglobin A1C, blood, as % of total hemoglobin 11.3 % Encounters Code Encounter Date Provider Facility CPT-15296 Ofc Vst, Est Level III 19:33:22 CDT America Arellanoner, DO, FACP CPT-28309 Ofc Vst, Est Level III 17:18:19 CDT America Arellanoner, DO, FACP CPT-30255 Ofc Vst, Est Level IV 15:55:02 CDT America Hutton, DO, FACP CPT-55960 Ofc Vst, Est Level IV 12:24:37 MAINTENANCE TECHNICIAN America Hutton, DO, FACP CPT-03516 Ofc Vst, Est Level IV 17:38:12 CDT America Hutton, DO, FACP CPT-11659 Ofc Vst, Est Level III 14:37:41 CDT America Hutton, DO, FACP CPT-45264 Ofc Vst, Est Level III 12:43:48 MAINTENANCE TECHNICIAN America Champion Hutton, DO, FACP CPT-99075 Ofc Vst, Est Level IV 10:57:08 MAINTENANCE TECHNICIAN America Champion Hutton, DO, FACP CPT-78804 Ofc Vst, Est Level IV 16:59:13 CDT America Rivka Champion Anni, DO, FACP CPT-22027 Ofc Vst, Est Level IV 16:43:56 CDT [facility] C[facility]-80642 Ofc Vst, Est Level III 16:27:39 CDT America Rivka Champion Anni, DO, FACP CPT-62772 Ofc Vst, Est Level IV 14:14:50 CDT [facility] Champion Anni, DO, FACP CPT-22974 Ofc Vst, Est Level III 11:30:50 CDT [facility] Champion Hutton, DO, FACP CPT-37041 Ofc Vst, Est Level III 16:29:28 CDT America Champion Hutton, DO, FACP CPT-40422 Ofc Vst, Est Level IV 16:50:49 MAINTENANCE TECHNICIAN America Champion Anni, DO, FACP CPT-93987 Ofc Vst, Est Level IV 11:54:05 CDT America[facility] Champion Hutton, DO, FACP CPT-44758 Ofc Vst, Est Level IV 10:52:34 CDT America Rivka Champion Hutton, DO, FACP CPT-70719 Ofc Vst, Est Level IV 11:30:28 MAINTENANCE TECHNICIAN America Rivka Champion Hutton, DO, FACP CPT-83215 Ofc Vst, Est Level IV 10:48:08 MAINTENANCE TECHNICIAN America Rivka Champion Hutton, DO, FACP CPT-29122 Ofc Vst, Est Level IV 11:36:11 CDT Americaedy Champion Hutton, DO, FACP CPT-38560 Ofc Vst, Est Level IV 10:59:29 CDT America Champion Hutton, DO, FACP CPT-81889 Ofc Vst, Est Level IV 11:57:28 CDT America Rivka Champion Hutton, DO, FACP CPT-58093 Ofc Vst, Est Level IV 11:04:42 MAINTENANCE TECHNICIAN America Champion Anni, DO, FACP CPT-54214 Ofc Vst, Est Level V 11:03:29 MAINTENANCE TECHNICIAN America Champion Anni, DO, FACP CPT-18384 Ofc Vst, Est Level IV 10:53:30 CDT America[facility] Champion Anni, DO, FACP CPT-80878 Ofc Vst, Est Level IV 11:12:42 CDT [facility] Champion Anni, DO, FACP CPT-18578 Ofc Vst, Est Level IV 11:25:49 CDT America Champion Anni, DO, FACP CPT-22453 Ofc Vst, Est Level IV 14:19:05 CDT [facility] Champion Anni, DO, FACP CPT-35656 Ofc Vst, Est Level V 15:01:50 MAINTENANCE TECHNICIAN America Hutton [facility] CPT-80297 Ofc Vst, Est Level IV 11:18:30 MAINTENANCE TECHNICIAN America Champion Anni, DO, FACP CPT-72532 Ofc Vst, Est Level IV 14:33:19 CDT America Champion Anni, DO, FACP CPT-19552 Ofc Vst, Est Level IV 14:24:09 CDT Americaedy Champion Anni, DO, FACP CPT-65749 Ofc Vst, Est Level IV 16:24:25 CDT [facility] CPT-13179 Ofc Vst, Est Level V 12:06:18 CDT America[facility] Champion Anni, DO, FACP CPT-80835 Ofc Vst, Est Level IV 11:32:52 CDT [facility] Champion Anni, DO, FACP CPT-81905 Ofc Vst, Est Level V 15:54:46 CDT America Rivka Champion Anni, DO, FACP CPT-26288 Ofc Vst, Est Level IV 14:32:33 CDT [facility] Champion Anni, DO, FACP CPT-67241 Ofc Vst, Est Level IV 14:06:04 MAINTENANCE TECHNICIAN America Champion Anni, DO, FACP CPT-78244 Ofc Vst, Est Level IV 10:36:45 MAINTENANCE TECHNICIAN America Champion Anni, DO, FACP CPT-78073 Ofc Vst, Est Level IV 13:12:16 CDT America Champion Anni, DO, FACP CPT-39321 Ofc Vst, Est Level IV 15:20:36 CDT America[facility] Champion Anni, DO, FACP CPT-99205 Ofc Vst, Est Level III 12:05:11 CDT America Rivka Champion Anni, DO, FACP CPT-19545 Ofc Vst, Est Level III 13:05:33 CDT [facility] Champion Anni, DO, FACP CPT-95195 Ofc Vst, Est Level IV 14:09:19 CDT America Rivka Champion Hutton, DO, FACP CPT-56612 Ofc Vst, Est Level IV 14:00:30 MAINTENANCE TECHNICIAN America Champion Hutton, DO, FACP CPT-18684 Ofc Vst, Est Level IV 17:29:08 MAINTENANCE TECHNICIAN America Champion Hutton, DO, FACP CPT-20455 Ofc Vst, Est Level III 13:45:01 MAINTENANCE TECHNICIAN America Champion Hutton, DO, FACP CPT-21625 Ofc Vst, Est Level IV 15:24:26 MAINTENANCE TECHNICIAN America Champion Anni, DO, FACP CPT-16523 Ofc Vst, Est Level IV 15:54:58 MAINTENANCE TECHNICIAN America Champion Hutton, DO, FACP CPT-09936 Ofc Vst, Est Level IV 10:17:27 MAINTENANCE TECHNICIAN America Champion Hutton, DO, FACP CPT-25162 Ofc Vst, Est Level IV 11:40:37 CDT America Champion Hutton, DO, FACP CPT-14572 Ofc Vst, New Level IV 17:22:52 CDT America Champion Hutton, DO, FACP Procedures Code Procedure Name Date Entry Date Standard Description CPT-14515 Preventive, Est, (40-64) 13:27:46 CDT CPT-56473 Preventive, Est, (40-64) 21:40:47 CDT CPT-74330 Preventive, Est, (40-64) 20:22:44 MAINTENANCE TECHNICIAN CPT-67772 Injection 11:25:49 CDT CPT-83605 Injection 14:19:05 CDT CPT-28839 Injection 14:33:19 CDT CPT-59266 Injection 14:24:09 CDT CPT-52608 Injection 16:24:25 CDT CPT-93298 Injection 14:32:33 CDT CPT-48971 Injection 14:06:04 MAINTENANCE TECHNICIAN CPT-52268 Biopsy, skin/subcut/mucous membrane; sngl lsn 14:21:51 CDT CPT-G0008 Administration Influenza Vaccine 11:40:37 CDT CPT-72284 Influenza Vaccine 11:40:37 CDT
--- OUTSIDE RECORDS SUMMARY | 2017-04-21 14:21 | XMS REPORT | Clinical Summary ---
Author Author User, [employer] Organization America Hutton DO, FACP Address Unknown [...] Coronary atherosclerosis of unspecified type of vessel, [place] or graft CHRONIC AIRWAY OBSTRUCTION (COPD) 496 [...] Chaveze Hutton Wheezing BRONCHITIS 490 Inactive America Huttno Bronchitis, not specified as acute or chronic [...] care facility INFLUENZA W/RESPIRATORY MANIFESTATION NEC 487.1 Active America Hutton Influenza with other respiratory manifestations ULCER OF OTHER PART OF FOOT 707.15 Active America Hutton Ulcer of other part of foot Medication List Medication Instructions Start Date Stop Date Generic Name NDC Status Provider Patient Instruction TAMIFLU 75 MG CAPS 1 po BID OSELTAMIVIR PHOSPHATE 19062354357 No Longer Active America Hutton NYSTATIN 547659 UNIT/GM CREA apply to affected areas BID for 7 days NYSTATIN 64788515229 No Longer Active Ramila Oates NYSTATIN 380975 U/ML SUSP 5cc PO QID for 7 days NYSTATIN 27459816963 Active Ramila Oates SPIRIVA HANDIHALER 18 MCG CAPS ONE INHALATION DAILY TIOTROPIUM BROMIDE MONOHYDRATE 88673243282 Active America Hutton ATROVENT HFA 17 MCG/ACT AERS 2 puffs BID IPRATROPIUM BROMIDE HFA 67440870139 No Longer Active America Hutton PERFOROMIST 20 MCG/2ML NEBU 1 vial Neb treatment BID FORMOTEROL FUMARATE 87731760098 No Longer Active America Hutton VENTOLIN HFA 108 (90 BASE) MCG/ACT AERS 2 puffs Q 4 hours prn ALBUTEROL SULFATE 59707698445 No Longer Active America Hutton HYDROXYZINE HCL 25 MG TABS 1 PO Q 6HRS PRN HYDROXYZINE HCL 98671210908 Active Ramila Oates SINGULAIR 10 MG TABS 1 PO AT Q HS MONTELUKAST SODIUM 88658505411 Active America Hutton NOVOLOG 100 U/ML SOLN 12 units before meals INSULIN ASPART 04933688087 Active America Hutton LANTUS SOLOSTAR 100 UNIT/ML SOLN 20 units at night INSULIN GLARGINE 55724131705 Active Ramila Oates AMLACTIN 12 % LOTN Apply a small amount to affected areas BID AMMONIUM LACTATE 97219486970 No Longer Active America Hutton ADVAIR DISKUS 500-50 MCG/DOSE AEPB 1 puff BID FLUTICASONE- SALMETEROL 05392409210 Active Ramila Oates POTASSIUM CHLORIDE ER 20 MEQ CR-TABS 1-2 PO BID POTASSIUM CHLORIDE 89533687314 Active Ramila Oates NOVOFINE 30G X 8 MM MISC DIRECTED DX: 250.00 INSULIN PEN NEEDLE 92448349980 Active Ramila Oates PREDNISONE 10 MG TAB 2 PO daily for for 3 days then 1 PO daily for 5 days. PREDNISONE 33668342784 No Longer Active America DE PAZ'Akira NASAL SPRAY (DEXAMETHASONE, GENTAMICIN, SALINE) 2 puffs each nostril TID for [address] DE PAZ'Akira NASAL SPRAY ( DEXAMETHASONE, GENTAMICIN, SALINE) No Longer Active America Hutton CEFDINIR 300 MG CAPS 1 PO BID for 6 weeks CEFDINIR 59704967891 No Longer Active America Hutton PREDNISONE 20 MG TAB 2 pills at once for 2 days then 1 pill daily for 5 days PREDNISONE 11540734948 No Longer Active America Hutton DOXYCYCLINE HYCLATE 100 MG CAP 1 po BID DOXYCYCLINE HYCLATE 39027398393 No Longer Active America Hutton NYSTATIN 607687 U/ML SUSP 5cc PO QID for 7 days NYSTATIN 15983757552 No Longer Active America Hutton NYSTATIN 627189 U/ML SUSP 5cc PO QID for 7 days NYSTATIN 96505223529 No Longer Active America Hutton ASPIRIN 325 MG TABS 1 PO daily ASPIRIN 93246830050 No Longer Active America Rivka Hutton COZAAR 100 MG TAB 1 PO Daily [place] POTASSIUM 97085707995 Active Ramila Oates PREDNISONE 20 MG TAB 2 pills at once for 2 days then 1 pill daily for 5 days PREDNISONE 44148124533 No Longer Active America Rivka Hutton DOXYCYCLINE HYCLATE 100 MG CAP 1 po BID DOXYCYCLINE HYCLATE 56583564489 No Longer Active America Rivka Hutton HYZAAR 100-12.5 MG TABS 1 PO daily LOSART[place] POTASSIUM-HCTZ 27334478708 No Longer Active America Rivka Hutton MOBIC 15 MG TABS 1 PO daily for arthritis MELOXICAM 23238697385 Active America Rivka Hutton PREDNISONE 20 MG TAB 2 pills at once for 2 days then 1 pill daily for 5 days PREDNISONE 31520772039 No Longer Active America Rivka Hutton LEVAQUIN 750 MG TABS 1 PO daily LEVOFLOXACIN 40023094433 No Longer Active America Rivka Hutton ANDROGEL PUMP 20.25 MG/ACT (1.62%) GEL rub in two pumps into skin daily TESTOSTERONE 65740046395 No Longer Active America Rivka Hutton ULTRAM 50 MG TAB 1 PO q 6 hrs prn TRAMADOL HCL 14469661836 No Longer Active America Rivka Hutton VITAMIN D 1000 UNIT TABS 1 PO Daily CHOLECALCIFEROL 28518554878 No Longer Active America Rivka Hutton ETODOLAC 400 MG TABS 1 PO BID ETODOLAC 79788808331 No Longer Active America Rivka Hutton LORTAB 7.5 7.5-500 MG TABS 1-2 q 4-6 hrs. prn HYDROCODONE- ACETAMINOPHEN 60971727306 No Longer Active America Rivka Hutton PLAVIX 75 MG TABS 1 po daily CLOPIDOGREL BISULFATE 27393457982 No Longer Active Americaedy Hutton ATARAX 25 MG TAB 1 PO Q6 hours prn HYDROXYZINE HCL Active Rosario Moyer PREDNISONE 20 MG TAB 2 pills at once for 2 days then 1 pill daily for 5 days PREDNISONE 84579304214 No Longer Active America Rivka Hutton ONETOUCH ULTRA BLUE STRP TEST BS QID DX: DIABETES GLUCOSE BLOOD 27848458188 Active Ramila Oates ATARAX 25 MG TAB 1 PO Q6hrs prn HYDROXYZINE HCL No Longer Active Americaedy Hutton PREDNISONE 20 MG TAB 2 pills at once for 2 days then 1 pill daily for 2 days PREDNISONE 90960328110 No Longer Active America Hutton PEN NEEDLES 5/16" 31G X 8 MM MISC as directed INSULIN PEN NEEDLE 03954791233 No Longer Active Americaedy Hutton NASONEX 50 MCG/ACT SUSP 2 Puffs ea. nostril daily MOMETASONE FUROATE 99575864488 No Longer Active Americaedy Hutton CLARINEX 5 MG TABS 1 po daily DESLORATADINE 62052644381 No Longer Active America Hutton MIRALAX POWD 1 scoop in 4oz of water PO daily POLYETHYLENE GLYCOL 3350 41655250500 No Longer Active Americaedy Hutton 10% LCD IN THC .1% Apply to arms at bedtime 10% LCD IN THC .1% No Longer Active Americaedy Hutton TRIAMCINOLONE ACETONIDE 0.025 % OINT Apply to rash on arms daily as needed. TRIAMCINOLONE ACETONIDE 97514679182 No Longer Active America Hutton ONE TOUCH ULTRA TEST STRP Test BS TID DX: Diabetes GLUCOSE BLOOD 00748229558 No Longer Active Americaedy Hutton BD U/F SHORT PEN NEEDLE 31G X 8 MM MISC as directed with insulin DX: Diabetes INSULIN PEN NEEDLE 82267769012 No Longer Active Americaedy Hutton CIALIS 20 MG TABS 1 PO as directed TADALAFIL 80113080487 No Longer Active Americaedy Hutton ONE TOUCH ULTRA MINI W/DEVICE KIT BLOOD GLUCOSE MONITORING SUPPL 73711787252 No Longer Active Americaedy Hutton PEN NEEDLES /16" 31G X 8 MM MISC as directed INSULIN PEN NEEDLE 32993855442 No Longer Active Americaedy Hutton ATARAX 25 MG TAB 1 PO Q6hrs prn itching HYDROXYZINE HCL No Longer Active Americaedy Hutton PREDNISONE 20 MG TAB 2 pills at once for 2 days then 1 pill daily for 2 days PREDNISONE 80670852280 No Longer Active Americaedy Hutton METFORMIN HCL 500 MG TABS 1 po daily METFORMIN HCL 14893159051 No Longer Active America Hutton CLOTRIMAZOLE 10 MG TROC Dissolve 1 tab in mouth QID for 14 days CLOTRIMAZOLE 93681316606 No Longer Active Ramila Oates PREDNISONE 20 MG TAB 2 pills at once for 3 days then 1 pill daily for 3 days PREDNISONE 57946059856 No Longer Active Americaedy Hutton LEVAQUIN 750 MG TABS 1 PO daily for 7 days LEVOFLOXACIN 36086970841 No Longer Active Americaedy Hutton MYCELEX 10 MG TROC Dissovle in mouth QID for 14 days CLOTRIMAZOLE 37328545377 No Longer Active Ramírez Gtz LEVITRA 20 MG TABS 1 po daily prn VARDENAFIL HCL 14148228236 No Longer Active America Rivka Hutton PROAIR HFA AERS Inhale 1-2 puffs 4x daily prn ALBUTEROL SULFATE AERS 78150696680 No Longer Active America Rivka Hutton PREDNISONE 20 MG TAB 3 pills daily at once for 2 days, 2 pills daily at once for 2 days, 1 once daily for 2 days PREDNISONE 23856703231 No Longer Active America Rivka Hutton LEVAQUIN 750 MG TABS 1 PO daily LEVOFLOXACIN 27509308215 No Longer Active America Rivka Hutton HUMALOG KWIKPEN 100 UNIT/ML SOLN 40 units before meals INSULIN LISPRO (HUMAN) 10177473826 No Longer Active Americaedy Hutton MICRONASE 2.5 MG TAB 1 PO BID GLYBURIDE No Longer Active Ramila Oates SYNTHROID 0.025 MG TAB 1 PO Daily on empty stomach LEVOTHYROXINE SODIUM 98591312384 Active Ramila Oates METFORMIN HCL 1000 MG TABS 1 PO BID METFORMIN HCL 24341619817 No Longer Active America Hutton ATROVENT 0.06 % SOLN 2 puffs each nostril TID prn runny nose 2010 IPRATROPIUM BROMIDE 95629831220 No Longer Active Americaedy Hutton VICTOZA 18 MG/3ML SOLN 0.6mg injection once daily for one month, then 1.2mg injection once daily LIRAGLUTIDE 05496292906 No Longer Active Americaedy Hutton FLONASE 50 MCG/DOSE INHALANT 2 puffs each nostril daily FLONASE 50 MCG/ DOSE INHALANT No Longer Active Americaedy Hutton ZYRTEC 10 MG TAB 1 PO QD CETIRIZINE HCL No Longer Active Americaedy Hutton FLUCONAZOLE 200 MG TABS 1 PO daily for 5 days FLUCONAZOLE 14668703404 No Longer Active America Rivka Hutton ADVAIR DISKUS 500-50 MCG/DOSE MISC 1 puff BID FLUTICASONE-SALMETEROL 49146153090 No Longer Active America Rivka Hutton LEVAQUIN 500 MG TAB 1 PO QD LEVOFLOXACIN 71285741741 No Longer Active America Rivka Hutton ASTEPRO 137 MCG/SPRAY SOLN 2 puffs each nostril QHS AZELASTINE HCL 44715434358 No Longer Active America Rivka Hutton SPIRIVA HANDIHALER 18 MCG CAPS 1 inhalation daily TIOTROPIUM BROMIDE MONOHYDRATE 02107249057 No Longer Active America Rivka Hutton AZALEA-D 24 HOUR 180-240 MG LW12V-RIM 1 PO daily FEXOFENADINE-PSEUDOEPHEDRINE 10101736683 No Longer Active America Rivka Hutton BACTRIM DS 800-160 MG TAB 1 PO BID TRIMETHOPRIM- SULFAMETHOXAZOLE 71625424431 No Longer Active America Rivka Hutton LEVAQUIN 500 MG TAB 1 PO QD LEVOFLOXACIN 18310190003 No Longer Active America Rivka Hutton PREDNISONE 20 MG TAB 2 pills at once for 2 days then 1 pill daily for 2 days PREDNISONE 02718849323 No Longer Active America Rivka Hutton ROBITUSSIN A-C 10-100 MG/5ML SYRUP 1 teaspoon PO Q 4-6 hr prn ROBITUSSIN A-C 10-100 MG/5ML SYRUP No Longer Active America Rivka DE PAZ'S NASAL SPRAY (DEXAMETHASONE, GENTAMICIN, SALINE) 2 puffs each nostril TID for [address] DE PAZ'Akira NASAL SPRAY ( DEXAMETHASONE, GENTAMICIN, SALINE) No Longer Active America Rivka Hutton LEVAQUIN 750 MG TABS 1 po daily for 7 days LEVOFLOXACIN 47210485093 No Longer Active America Hutton BACTRIM DS 800-160 MG TAB 1 PO BID TRIMETHOPRIM- SULFAMETHOXAZOLE 29063701760 No Longer Active America Hutton HUMALOG PEN 100 UNIT/ML SOLN 25 units twice daily INSULIN LISPRO (HUMAN) 35876802195 No Longer Active America Hutton LANTUS FOR OPTICLIK 100 UNIT/ML SOLN 20 units injection every night 09/09 INSULIN GLARGINE 87638200177 No Longer Active America Hutton ROBITUSSIN A-C 10-100 MG/5ML SYRUP 1 teaspoon PO Q 4-6 hr prn ROBITUSSIN A-C 10-100 MG/5ML SYRUP No Longer Active Ramila STRAUSS NASAL SPRAY (DEXAMETHASONE, GENTAMICIN, SALINE) 2 puffs each nostril TID for [address] STRAUSS NASAL SPRAY ( DEXAMETHASONE, GENTAMICIN, SALINE) No Longer Active America Hutton AUGMENTIN 875-125 MG TAB 1 PO BID AMOXICILLIN-POT CLAVULANATE 85893760978 No Longer Active America Hutton ROBITUSSIN A-C 10-100 MG/5ML SYRUP 1 teaspoon PO Q 4-6 hr prn ROBITUSSIN A-C 10-100 MG/5ML SYRUP No Longer Active America STRAUSS NASAL SPRAY (DEXAMETHASONE, GENTAMICIN, SALINE) 2 puffs each nostril TID for [address] STRAUSS NASAL SPRAY ( DEXAMETHASONE, GENTAMICIN, SALINE) No Longer Active Barron Joi LEVAQUIN 500 MG TAB 1 PO QD LEVOFLOXACIN 80497520802 No Longer Active Barron Joi PREDNISONE 20 MG TAB 2 pills at once for 2 days then 1 pill daily for 2 days PREDNISONE 74840025056 No Longer Active America STRAUSS NASAL SPRAY (DEXAMETHASONE, GENTAMICIN, SALINE) 2 puffs each nostril TID for [address] STRAUSS NASAL SPRAY ( DEXAMETHASONE, GENTAMICIN, SALINE) No Longer Active America Hutton AMOXICILLIN 500 MG CAP 1 PO TID AMOXICILLIN 94482121618 No Longer Active America Hutton LISINOPRIL 10 MG TABS 1 PO Daily LISINOPRIL 29571782557 No Longer Active Ramilahattie Loeratis FLOMAX 0.4 MG CP24 1 PO QHS for prostate TAMSULOSIN HCL 28372325963 No Longer Active America Hutton MAGNESIUM OXIDE 400 MG TABS 1 PO daily MAGNESIUM OXIDE 87482040187 Active Suyapa Christie LASIX 20 MG TAB Take 2 PO BID FUROSEMIDE 14476636336 Active Ramila Loeratis KEFLEX 500 MG CAP 1 PO TID for 7 days CEPHALEXIN 59506840885 No Longer Active America Hutton ATROVENT 0.06 % SOLN 2 puffs each nostril TID prn runny nose 2008 IPRATROPIUM BROMIDE 50525018862 No Longer Active America Hutton PREDNISONE 20 MG TAB 3 pills daily at once for 3 days, 2 pills daily at once for 3 days, 1 once daily for 3 days PREDNISONE 13522688236 No Longer Active America Hutton LEVAQUIN 500 MG TAB 1 PO QD LEVOFLOXACIN 28455073457 No Longer Active America Hutton CRESTOR 5 MG TABS 1 PO daily ROSUVASTATIN CALCIUM 24015055309 Active America Hutton PREDNISONE 20 MG TAB 2 pills at once for 2 days then 1 pill daily for 2 days PREDNISONE 30542102639 No Longer Active America STRAUSS NASAL SPRAY (DEXAMETHASONE, GENTAMICIN, SALINE) 2 puffs each nostril TID for [address] DE PAZ'S NASAL SPRAY ( DEXAMETHASONE, GENTAMICIN, SALINE) No Longer Active America Hutton AUGMENTIN 875-125 MG TAB 1 PO BID AMOXICILLIN-POT CLAVULANATE 02961876734 No Longer Active America Hutton BIAXIN 500 MG TAB 1 PO BID for 7 days CLARITHROMYCIN 79957677305 No Longer Active [facility] ALBUTEROL SULFATE (2.5 MG/3ML) 0.083% NEBU 1 treatment QID ALBUTEROL SULFATE 08279615146 Active America Hutton ROBITUSSIN A-C 10-100 MG/5ML SYRUP 1 teaspoon PO Q 4-6 hr prn ROBITUSSIN A-C 10-100 MG/5ML SYRUP 52522944029 No Longer Active Y Y DOXYCYCLINE HYCLATE 100 MG CAP 1 po BID. Take with food to avoid nausea. 2007 DOXYCYCLINE HYCLATE 57803632448 No Longer Active Y Y BIAXIN 500 MG TAB 1 PO BID for lung infection CLARITHROMYCIN 40136577880 No Longer Active America Hutton MEVACOR 40 MG TABS 1 PO daily LOVASTATIN 76166882072 No Longer Active America Hutton BYETTA 10 MCG PEN SOLN i injection am and at supper(On hold 09/04/07 while re- starting Humalog) EXENATIDE SOLN 04903872771 No Longer Active America Hutton LEVITRA 10 MG TABS 1 PO as directed VARDENAFIL HCL 93974536418 No Longer Active Tyler Bolton AUGMENTIN 500-125 MG TAB 1 PO BID AMOXICILLIN-POT CLAVULANATE 52461917872 No Longer Active Ramila STRAUSS NASAL SPRAY (DEXAMETHASONE, GENTAMICIN, SALINE) 2 puffs each nostril TID for [address] STRAUSS NASAL SPRAY ( DEXAMETHASONE, GENTAMICIN, SALINE) No Longer Active Ramila Luana KENALOG 1 injection monthly, 2nd week of the month KENALOG No Longer Active America Rivka Hutton VITAMIN B-12 1 injection monthly VITAMIN B-12 No Longer Active America Rivka Hutton CHANTIX 1 MG TABS as directed VARENICLINE TARTRATE 26853683113 No Longer Active America Rivka Hutton LEVEMIR FLEXPEN SOLN 15 units QHS INSULIN DETEMIR SOLN 28821209720 No Longer Active America Rivka Hutton CIALIS 20 MG TABS 1po daily prn TADALAFIL 78114801937 No Longer Active America Rivka Hutton VIAGRA 50 MG TABS Take 1 PO prn SILDENAFIL CITRATE 08676301339 No Longer Active America Rivka Hutton LOTRISONE 1-0.05 % CREA Apply to both arms BID CLOTRIMAZOLE-BETAMETHASONE 99902422577 No Longer Active America Rivka Hutton LEVAQUIN 500 MG TAB 1 PO QD LEVOFLOXACIN 42626700329 No Longer Active America Rivka Hutton SPIRONOLACTONE 25 MG TABS 2 po daily SPIRONOLACTONE 60529407238 Active Ramila Oates TAMIFLU 75 MG CAPS 1 po BID x 5 days OSELTAMIVIR PHOSPHATE 63963362961 No Longer Active America Rivka Hutton LANTUS FOR OPTICLIK 100 UNIT/ML SOLN 10 units QHS INSULIN GLARGINE 20425912407 No Longer Active America Rivka Hutton ATROVENT 0.06 % SOLN 2 puffs each nostril BID x 7 days IPRATROPIUM BROMIDE 67863805228 No Longer Active America Rivka Hutton AUGMENTIN 875-125 MG TABS 1 po BID for 7 days. AMOXICILLIN-POT CLAVULANATE 71481296093 No Longer Active America Rivka Hutton AZALEA 180 MG TABS 1 po daily FEXOFENADINE HCL 15860797062 No Longer Active America Hutton PYRIDIUM 200 MG TABS 1 po TID for 3 days PHENAZOPYRIDINE HCL 92912816171 No Longer Active America Hutton ZAROXOLYN 5 MG TABS 1 PO daily METOLAZONE 72774558580 Active Ramila Oates NOVOLOG PENFILL SOLN 4 units before meals INSULIN ASPART SOLN 50225309452 No Longer Active America Hutton Immunizations Vaccine Administration Date Value Standard Description pneumococcal immunization administered Done pneumococcal polysaccharide vaccine, 23 valent Influenza vaccine given Done influenza virus vaccine, unspecified formulation Influenza vaccine given done influenza virus vaccine, unspecified formulation Influenza vaccine given 05/23 received influenza virus vaccine, unspecified formulation Vital Signs Date Name Value Unit Range Description blood pressure, diastolic - 8462-4 60 mm[Hg] [...] E&M - 3141-9 320 [lb_av] Weight Measured blood pressure, diastolic - 8462-4 60 mm[Hg] BP parson blood pressure, systolic - 8480-6 122 mm[Hg] BP sys pulse rate E&M - 8867-4 78 /min Heart rate respiratory rate E&M - 9279-1 18 /min Resp rate Diagnostic Results Date Name Value Unit Range Description Clinical Lists Update: CBC,CMP - Chemistry anion gap, serum 12 urea nitrogen, blood 22 mg/dL creatinine, serum 1.4 mg/dL carbon dioxide, venous blood 30.0 mmol/L chloride, serum 93 mmol/L calcium, serum 9.6 mg/dL glucose, plasma fasting 294 mg/dL Estimated Glomerular Filtration Rate (calc) 55 mL/min/1.73m2 protein, total, serum 7.1 g/dL aspartate aminotransferase (SGOT), serum 11 U/L alanine aminotransferase (SGPT), serum 18 U/L albumin, serum 3.0 g/dL bilirubin, serum, total 0.5 mg/dL sodium, serum 131 mmol/L alkaline phosphatase, serum 71 U/L potassium, serum 3.9 mmol/L Clinical Lists Update: CBC,CMP - Hematology red blood cell distribution width 13.7 % mean corpuscular volume, RBC 95 fL leukocyte count, blood 15.0 10*3/mm3 platelet count 297 10*3/mm3 hemoglobin, blood 14.2 g/dL hematocrit, blood 45 % erythrocyte (RBC) count 4.76 10*6/mm3 Clinical Lists Update: CBC,CMP RE: DR SILVESTRE [facility] - Chemistry albumin, serum 4.0 g/dL alkaline phosphatase, serum 87 U/L urea nitrogen, blood 22 mg/dL calcium, serum 10.4 mg/dL chloride, serum 97 mmol/L carbon dioxide, venous blood 26 mmol/L potassium, serum 3.8 mmol/L protein, total, serum 7.8 g/dL aspartate aminotransferase (SGOT), serum 13 U/L alanine aminotransferase (SGPT), serum 16 U/L bilirubin, serum, total 0.5 mg/dL sodium, serum 134 mmol/L glucose, plasma fasting 205 mg/dL Estimated Glomerular Filtration Rate (calc) 50 mL/min/1.73m2 creatinine, serum 1.42 mg/dL Clinical Lists Update: CBC,CMP RE: DR SILVESTRE [facility] - Hematology hemoglobin, blood 14.0 g/dL platelet count 342 10*3/mm3 erythrocyte (RBC) count 4.75 10*6/mm3 leukocyte count, blood 13.3 10*3/mm3 mean corpuscular volume, RBC 87 fL red blood cell distribution width 13.3 % hematocrit, blood 41 % Clinical Lists Update: CMP,Chol,Trig,TSH,Free T4,HgA1c - Chemistry potassium, serum 3.5 mmol/L thyroid stimulating hormone, serum 1.73 u[iU]/mL hemoglobin A1C, blood, as % of total hemoglobin 9.2 % thyroxine, serum, free 0.90 ng/dL creatinine, serum 1.1 mg/dL carbon dioxide, venous blood 23.0 mmol/L cholesterol, serum 144 mg/dL chloride, serum 100 mmol/L calcium, serum 9.3 mg/dL urea nitrogen, blood 13 mg/dL alkaline phosphatase, serum 71 U/L albumin, serum 4.2 g/dL Estimated Glomerular Filtration Rate (calc) 53 mL/min/1.73m2 glucose, plasma fasting 221 mg/dL anion gap, serum 13 sodium, serum 133 mmol/L triglyceride, serum, fasting 196 mg/dL bilirubin, serum, total 0.4 mg/dL alanine aminotransferase (SGPT), serum 14 U/L aspartate aminotransferase (SGOT), serum 13 U/L protein, total, serum 7.6 g/dL potassium, serum 4.2 mmol/L thyroid stimulating hormone, serum 1.36 u[iU]/mL hemoglobin A1C, blood, as % of total hemoglobin 8.9 % thyroxine, serum, free 0.80 ng/dL creatinine, serum 1.4 mg/dL carbon dioxide, venous blood 26.0 mmol/L cholesterol, serum 130 mg/dL chloride, serum 98 mmol/L calcium, serum 9.8 mg/dL urea nitrogen, blood 21 mg/dL alkaline phosphatase, serum 73 U/L albumin, serum 4.3 g/dL Estimated Glomerular Filtration Rate (calc) 70 mL/min/1.73m2 glucose, plasma fasting 161 mg/dL anion gap, serum 14 sodium, serum 133 mmol/L triglyceride, serum, fasting 207 mg/dL bilirubin, serum, total 0.5 mg/dL alanine aminotransferase (SGPT), serum 12 U/L aspartate aminotransferase (SGOT), serum 12 U/L protein, total, serum 7.2 g/dL Clinical Lists Update: CMP,FLP,TSH,FREE T4,HGA1C - Chemistry Estimated Glomerular Filtration Rate (calc) 62 mL/min/1.73m2 albumin, serum 4.1 g/dL cholesterol/HDL ratio, serum, percent 4.2 anion gap, serum 12 sodium, serum 133 mmol/L triglyceride, serum, fasting 126 mg/dL bilirubin, serum, total 0.4 mg/dL alanine aminotransferase (SGPT), serum 10 U/L aspartate aminotransferase (SGOT), serum 10 U/L protein, total, serum 7.1 g/dL potassium, serum 4.0 mmol/L LDL cholesterol, serum 78 mg/dL thyroid stimulating hormone, serum 1.34 u[iU]/mL hemoglobin A1C, blood, as % of total hemoglobin 9.6 % HDL cholesterol, serum 32.0 mg/dL thyroxine, serum, free 0.80 ng/dL creatinine, serum 1.3 mg/dL carbon dioxide, venous blood 27.0 mmol/L cholesterol, serum 135 mg/dL chloride, serum 98 mmol/L calcium, serum 9.5 mg/dL urea nitrogen, blood 19 mg/dL alkaline phosphatase, serum 82 U/L glucose, plasma fasting 201 mg/dL Clinical Lists Update: ER [facility] - Chemistry Estimated Glomerular Filtration Rate (calc) 43 mL/min/1.73m2 glucose, plasma fasting 237 mg/dL anion gap, serum 17 sodium, serum 134 mmol/L bilirubin, serum, total 0.3 mg/dL alanine aminotransferase (SGPT), serum 17 U/L aspartate aminotransferase (SGOT), serum 13 U/L protein, total, serum 7.5 g/dL potassium, serum 3.8 mmol/L creatinine, serum 1.64 mg/dL carbon dioxide, venous blood 24 mmol/L chloride, serum 97 mmol/L calcium, serum 10.1 mg/dL urea nitrogen, blood 21 mg/dL alkaline phosphatase, serum 95 U/L albumin, serum 4.0 g/dL Clinical Lists Update: ER [facility] - Hematology leukocyte count, blood 19.36 10*3/mm3 hemoglobin, blood 15.2 g/dL red blood cell distribution width 13.0 % mean corpuscular volume, RBC 89.0 fL hematocrit, blood 43.9 % erythrocyte (RBC) count 4.92 10*6/mm3 platelet count 310 10*3/mm3 Clinical Lists Update: HgA1c - Chemistry hemoglobin A1C, blood, as % of total hemoglobin 9.30 % Clinical Lists Update: HgA1c DR SILVESTRE [facility] - Chemistry hemoglobin A1C, blood, as % of total hemoglobin 11.3 % Encounters Code Encounter Date Provider Facility CPT-87226 Ofc Vst, Est Level IV 15:55:02 CDT America Hutton DO, FACP CPT-52547 Ofc Vst, Est Level IV 12:24:37 CLAM GRADER America Rivka Hutton America S Hutton, DO, FACP CPT-04806 Ofc Vst, Est Level IV 17:38:12 CDT America Rivka Champion Anni, DO, FACP CPT-58383 Ofc Vst, Est Level III 14:37:41 CDT America Rivka Champion Anni, DO, FACP CPT-31045 Ofc Vst, Est Level III 12:43:48 CLAM GRADER America Champion Hutton, DO, FACP CPT-52527 Ofc Vst, Est Level IV 10:57:08 CLAM GRADER America Champion Anni, DO, FACP CPT-57795 Ofc Vst, Est Level IV 16:59:13 CDT Americaedy Champion Anni, DO, FACP CPT-20636 Ofc Vst, Est Level IV 16:43:56 CDT America Rivka [facility] CPT-32223 Ofc Vst, Est Level III 16:27:39 CDT America Rivka Champion Anni, DO, FACP CPT-49044 Ofc Vst, Est Level IV 14:14:50 CDT Americaedy Champion Anni, DO, FACP CPT-01395 Ofc Vst, Est Level III 11:30:50 CDT America Rivka Champion Anni, DO, FACP CPT-45726 Ofc Vst, Est Level III 16:29:28 CDT America Rivka Champion Anni, DO, FACP CPT-18601 Ofc Vst, Est Level IV 16:50:49 CLAM GRADER America Champion Anni, DO, FACP CPT-83047 Ofc Vst, Est Level IV 11:54:05 CDT America Rivka Champion Anni, DO, FACP CPT-75570 Ofc Vst, Est Level IV 10:52:34 CDT Americaedy Champion Hutton, DO, FACP CPT-18197 Ofc Vst, Est Level IV 11:30:28 CLAM GRADER America Rivka Champion Hutton, DO, FACP CPT-95307 Ofc Vst, Est Level IV 10:48:08 CLAM GRADER America Rivka Champion Hutton, DO, FACP CPT-96140 Ofc Vst, Est Level IV 11:36:11 CDT America Rivka Champion Hutton, DO, FACP CPT-74885 Ofc Vst, Est Level IV 10:59:29 CDT America Rivka Champion Hutton, DO, FACP CPT-79652 Ofc Vst, Est Level IV 11:57:28 CDT America Rivka Champion Hutton, DO, FACP CPT-79006 Ofc Vst, Est Level IV 11:04:42 CLAM GRADER America Champion Hutton, DO, FACP CPT-44814 Ofc Vst, Est Level V 11:03:29 CLAM GRADER America Champion Hutton, DO, FACP CPT-47338 Ofc Vst, Est Level IV 10:53:30 CDT Americaedy Champion Hutton, DO, FACP CPT-71639 Ofc Vst, Est Level IV 11:12:42 CDT America Rivka Champion Hutton, DO, FACP CPT-53914 Ofc Vst, Est Level IV 11:25:49 CDT [place] Riv[place] Cross S Hutton, DO, FACP CPT-74833 Ofc Vst, Est Level IV 14:19:05 CDT Americaedy Champion Hutton, DO, FACP CPT-04655 Ofc Vst, Est Level V 15:01:50 CLAM [employer]ER America Hutton [facility] CPT-85788 Ofc Vst, Est Level IV 11:18:30 CLAM [employer]ER [place] Champion Hutton, DO, FACP CPT-69636 Ofc Vst, Est Level IV 14:33:19 CDT [place] Champion Hutton, DO, FACP CPT-72896 Ofc Vst, Est Level IV 14:24:09 CDT [place] Champion Anni, DO, FACP CPT-29572 Ofc Vst, Est Level IV 16:24:25 CDT [place] Rivka Hutton [facility] CPT-91329 Ofc Vst, Est Level V 12:06:18 CDT [place] Champion Anni, DO, FACP CPT-61531 Ofc Vst, Est Level IV 11:32:52 CDT America[place] Champion Anni, DO, FACP CPT-39377 Ofc Vst, Est Level V 15:54:46 CDT [place] Champion Anni, DO, FACP CPT-29050 Ofc Vst, Est Level IV 14:32:33 CDT [employer] Champion Anni, DO, FACP CPT-12138 Ofc Vst, Est Level IV 14:06:04 CLAM GR[employer]ER [place] Champion Anni, DO, FACP CPT-31543 Ofc Vst, Est Level IV 10:36:45 CLAM GR[employer]ER [place] Champion Anni, DO, FACP CPT-77415 Ofc Vst, Est Level IV 13:12:16 CDT [place] Champion Anni, DO, FACP CPT-83197 Ofc Vst, Est Level IV 15:20:36 CDT [place] Champion Anni, DO, FACP CPT-02571 Ofc Vst, Est Level III 12:05:11 CDT Americaedy Champion Hutton, DO, FACP CPT-46934 Ofc Vst, Est Level III 13:05:33 CDT [place] Champion Hutton, DO, FACP CPT-63182 Ofc Vst, Est Level IV 14:09:19 CDT [place] Champion Hutton, DO, FACP CPT-03891 Ofc Vst, Est Level IV 14:00:30 CLAM GR[employer]ER [place] Champion Hutton, DO, FACP CPT-55996 Ofc Vst, Est Level IV 17:29:08 CLAM GR[employer]ER [place] Champion Hutton, DO, FACP CPT-88161 Ofc Vst, Est Level III 13:45:01 CLAM GRADER [place] Champion Anni, DO, FACP CPT-07323 Ofc Vst, Est Level IV 15:24:26 CLAM GR[employer]ER [place] Champion Hutton, DO, FACP CPT-51477 Ofc Vst, Est Level IV 15:54:58 CLAM GRADER America Champion Hutotn, DO, FACP CPT-78217 Ofc Vst, Est Level IV 10:17:27 CLAM GR[employer]ER [place] Champion Anni, DO, FACP CPT-72380 Ofc Vst, Est Level IV 11:40:37 CDT Americaedy Champion Hutton, DO, FACP CPT-65543 Ofc Vst, New Level IV 17:22:52 CDT [place] Champion Hutton, DO, FACP Procedures Code Procedure Name Date Entry Date Standard Description CPT-44063 Preventive, Est, (40-64) 13:27:46 CDT CPT-37034 Preventive, Est, (40-64) 21:40:47 CDT CPT-35623 Preventive, Est, (40-64) 20:22:44 CLAM GRADER CPT-12711 Injection 11:25:49 CDT CPT-11821 Injection 14:19:05 CDT CPT-40475 Injection 14:33:19 CDT CPT-98512 Injection 14:24:09 CDT CPT-70303 Injection 16:24:25 CDT CPT-93207 Injection 14:32:33 CDT CPT-15589 Injection 14:06:04 CLAM GRADER CPT-65321 Biopsy, skin/subcut/mucous membrane; sngl lsn 14:21:51 CDT CPT-G0008 Administration Influenza Vaccine 11:40:37 CDT CPT-60168 Influenza Vaccine 11:40:37 CDT
--- OUTSIDE RECORDS SUMMARY | 2017-04-21 14:22 | XMS REPORT | Clinical Summary ---
Author Author User, [facility] America Hutton DO, FACP Address Unknown [...] Coronary atherosclerosis of unspecified type of vessel, emmonak or graft CHRONIC AIRWAY OBSTRUCTION (COPD) 496 [...] Generic Name NDC Status Provider Patient Instruction NYSTATIN 122486 U/ML SUSP 5cc PO QID for 7 days NYSTATIN 25073809189 No Longer Active America Hutton TAMIFLU 75 MG CAPS 1 po BID OSELTAMIVIR PHOSPHATE 59397780175 No Longer Active America Hutton NYSTATIN 131599 UNIT/GM CREA apply to affected areas BID for 7 days NYSTATIN 00083854320 No Longer Active Ramila Oates SPIRIVA HANDIHALER 18 MCG CAPS ONE INHALATION DAILY TIOTROPIUM BROMIDE MONOHYDRATE 18680636348 Active America Hutton ATROVENT HFA 17 MCG/ACT AERS 2 puffs BID IPRATROPIUM BROMIDE HFA 80518802122 No Longer Active America Hutton PERFOROMIST 20 MCG/2ML NEBU 1 vial Neb treatment BID FORMOTEROL FUMARATE 73082959264 No Longer Active America Hutton VENTOLIN HFA 108 (90 BASE) MCG/ACT AERS 2 puffs Q 4 hours prn ALBUTEROL SULFATE 58125258600 No Longer Active America Hutton HYDROXYZINE HCL 25 MG TABS 1 PO Q 6HRS PRN HYDROXYZINE HCL 92420473170 Active Ramila Oates SINGULAIR 10 MG TABS 1 PO AT Q HS MONTELUKAST SODIUM 54778574626 Active America Hutton NOVOLOG 100 U/ML SOLN 12 units before meals INSULIN ASPART 68373855977 Active America Hutton LANTUS SOLOSTAR 100 UNIT/ML SOLN 20 units at night INSULIN GLARGINE 97015073911 Active America Hutton AMLACTIN 12 % LOTN Apply a small amount to affected areas BID AMMONIUM LACTATE 23997046240 No Longer Active America Hutton ADVAIR DISKUS 500-50 MCG/DOSE AEPB 1 puff BID FLUTICASONE- SALMETEROL 01973134715 Active Ramila Oates POTASSIUM CHLORIDE ER 20 MEQ CR-TABS 1-2 PO BID POTASSIUM CHLORIDE 25647192678 Active Ramila Oates NOVOFINE 30G X 8 MM MISC DIRECTED DX: 250.00 INSULIN PEN NEEDLE 37217720945 Active Ramila Oates PREDNISONE 10 MG TAB 2 PO daily for for 3 days then 1 PO daily for 5 days. PREDNISONE 88680021274 No Longer Active America DE PAZ'Akira NASAL SPRAY (DEXAMETHASONE, GENTAMICIN, SALINE) 2 puffs each nostril TID for [address] DE PAZ'Akira NASAL SPRAY ( DEXAMETHASONE, GENTAMICIN, SALINE) No Longer Active America Hutton CEFDINIR 300 MG CAPS 1 PO BID for 6 weeks CEFDINIR 70510831691 No Longer Active America Hutton PREDNISONE 20 MG TAB 2 pills at once for 2 days then 1 pill daily for 5 days PREDNISONE 21338341463 No Longer Active America Hutton DOXYCYCLINE HYCLATE 100 MG CAP 1 po BID DOXYCYCLINE HYCLATE 49589303986 No Longer Active America Hutton NYSTATIN 539024 U/ML SUSP 5cc PO QID for 7 days NYSTATIN 03433437286 No Longer Active America Hutton NYSTATIN 237496 U/ML SUSP 5cc PO QID for 7 days NYSTATIN 85844632337 No Longer Active America Rikva Hutton ASPIRIN 325 MG TABS 1 PO daily ASPIRIN 46942790815 No Longer Active America Rivka Hutton COZAAR 100 MG TAB 1 PO Daily LOSARTAN POTASSIUM 60606084430 Active Ramila Иван PREDNISONE 20 MG TAB 2 pills at once for 2 days then 1 pill daily for 5 days PREDNISONE 58383007178 No Longer Active America Rivka Hutton DOXYCYCLINE HYCLATE 100 MG CAP 1 po BID DOXYCYCLINE HYCLATE 03887198250 No Longer Active America Rivka Hutton HYZAAR 100-12.5 MG TABS 1 PO daily LOSARTAN POTASSIUM-HCTZ 21239108026 No Longer Active America Rivka Huttno MOBIC 15 MG TABS 1 PO daily for arthritis MELOXICAM 09367854318 Active America Rivka Hutton PREDNISONE 20 MG TAB 2 pills at once for 2 days then 1 pill daily for 5 days PREDNISONE 83759501040 No Longer Active Americaedy Hutton LEVAQUIN 750 MG TABS 1 PO daily LEVOFLOXACIN 27651432228 No Longer Active Americaedy Hutton ANDROGEL PUMP 20.25 MG/ACT (1.62%) GEL rub in two pumps into skin daily TESTOSTERONE 00969242089 No Longer Active America Rivka Hutton ULTRAM 50 MG TAB 1 PO q 6 hrs prn TRAMADOL HCL 02697173094 No Longer Active America Rivka Hutton VITAMIN D 1000 UNIT TABS 1 PO Daily CHOLECALCIFEROL 57104767264 No Longer Active America Rivka Hutton ETODOLAC 400 MG TABS 1 PO BID ETODOLAC 67252701904 No Longer Active America Rivka Hutton LORTAB 7.5 7.5-500 MG TABS 1-2 q 4-6 hrs. prn HYDROCODONE- ACETAMINOPHEN 20770355432 No Longer Active America Rivka Hutton PLAVIX 75 MG TABS 1 po daily CLOPIDOGREL BISULFATE 39101273539 No Longer Active America Rivka Hutton ATARAX 25 MG TAB 1 PO Q6 hours prn HYDROXYZINE HCL Active Rosario Moyer PREDNISONE 20 MG TAB 2 pills at once for 2 days then 1 pill daily for 5 days PREDNISONE 39425093518 No Longer Active America Rivka Hutton ONETOUCH ULTRA BLUE STRP TEST BS QID DX: DIABETES GLUCOSE BLOOD 61921248456 Active Ramila Oates ATARAX 25 MG TAB 1 PO Q6hrs prn HYDROXYZINE HCL No Longer Active Americaedy Hutton PREDNISONE 20 MG TAB 2 pills at once for 2 days then 1 pill daily for 2 days PREDNISONE 78044326526 No Longer Active Americaedy Hutton PEN NEEDLES 5/16" 31G X 8 MM MISC as directed INSULIN PEN NEEDLE 40806616361 No Longer Active Americaedy Hutton NASONEX 50 MCG/ACT SUSP 2 Puffs ea. nostril daily MOMETASONE FUROATE 65817267079 No Longer Active Americaedy Hutton CLARINEX 5 MG TABS 1 po daily DESLORATADINE 53436827110 No Longer Active Americaedy Hutton MIRALAX POWD 1 scoop in 4oz of water PO daily POLYETHYLENE GLYCOL 3350 87330828335 No Longer Active Americaedy Hutton 10% LCD IN THC .1% Apply to arms at bedtime 10% LCD IN THC .1% No Longer Active America Rivka Hutton TRIAMCINOLONE ACETONIDE 0.025 % OINT Apply to rash on arms daily as needed. TRIAMCINOLONE ACETONIDE 01641010040 No Longer Active Americaedy Hutton ONE TOUCH ULTRA TEST STRP Test BS TID DX: Diabetes GLUCOSE BLOOD 17549809457 No Longer Active America Hutton BD U/F SHORT PEN NEEDLE 31G X 8 MM MISC as directed with insulin DX: Diabetes INSULIN PEN NEEDLE 53052426155 No Longer Active America Hutton CIALIS 20 MG TABS 1 PO as directed TADALAFIL 85399171834 No Longer Active America Hutton ONE TOUCH ULTRA MINI W/DEVICE KIT BLOOD GLUCOSE MONITORING SUPPL 66799905120 No Longer Active America Hutton PEN NEEDLES /16" 31G X 8 MM MISC as directed INSULIN PEN NEEDLE 98616848701 No Longer Active America Hutton ATARAX 25 MG TAB 1 PO Q6hrs prn itching HYDROXYZINE HCL No Longer Active America Hutton PREDNISONE 20 MG TAB 2 pills at once for 2 days then 1 pill daily for 2 days PREDNISONE 57233605541 No Longer Active America Hutton METFORMIN HCL 500 MG TABS 1 po daily METFORMIN HCL 52013218899 No Longer Active America Hutton CLOTRIMAZOLE 10 MG TROC Dissolve 1 tab in mouth QID for 14 days CLOTRIMAZOLE 10880192872 No Longer Active Ramila Oates PREDNISONE 20 MG TAB 2 pills at once for 3 days then 1 pill daily for 3 days PREDNISONE 53054343910 No Longer Active America Hutton LEVAQUIN 750 MG TABS 1 PO daily for 7 days LEVOFLOXACIN 16974764294 No Longer Active America Hutton MYCELEX 10 MG TROC Dissovle in mouth QID for 14 days CLOTRIMAZOLE 59352706259 No Longer Active Ramírez Gtz LEVITRA 20 MG TABS 1 po daily prn VARDENAFIL HCL 71738467587 No Longer Active Americaedy Hutton PROAIR HFA AERS Inhale 1-2 puffs 4x daily prn ALBUTEROL SULFATE AERS 56724555433 No Longer Active America Rivka Hutton PREDNISONE 20 MG TAB 3 pills daily at once for 2 days, 2 pills daily at once for 2 days, 1 once daily for 2 days PREDNISONE 52313091410 No Longer Active America Rivka Hutton LEVAQUIN 750 MG TABS 1 PO daily LEVOFLOXACIN 93613758426 No Longer Active Americaedy Hutton HUMALOG KWIKPEN 100 UNIT/ML SOLN 40 units before meals INSULIN LISPRO (HUMAN) 55515504839 No Longer Active Americaedy Hutton MICRONASE 2.5 MG TAB 1 PO BID GLYBURIDE No Longer Active Ramila Oates SYNTHROID 0.025 MG TAB 1 PO Daily on empty stomach LEVOTHYROXINE SODIUM 59253965984 Active Ramila Oates METFORMIN HCL 1000 MG TABS 1 PO BID METFORMIN HCL 64344782662 No Longer Active America Hutton ATROVENT 0.06 % SOLN 2 puffs each nostril TID prn runny nose 2010 IPRATROPIUM BROMIDE 86969834952 No Longer Active Americaedy Hutton VICTOZA 18 MG/3ML SOLN 0.6mg injection once daily for one month, then 1.2mg injection once daily LIRAGLUTIDE 50202658460 No Longer Active Americaedy Hutton FLONASE 50 MCG/DOSE INHALANT 2 puffs each nostril daily FLONASE 50 MCG/ DOSE INHALANT No Longer Active America Hutton ZYRTEC 10 MG TAB 1 PO QD CETIRIZINE HCL No Longer Active Americaedy Hutton FLUCONAZOLE 200 MG TABS 1 PO daily for 5 days FLUCONAZOLE 05387398629 No Longer Active America Rivka Hutton ADVAIR DISKUS 500-50 MCG/DOSE MISC 1 puff BID FLUTICASONE-SALMETEROL 13567939736 No Longer Active America Rivka Hutton LEVAQUIN 500 MG TAB 1 PO QD LEVOFLOXACIN 28765672742 No Longer Active America Rivka Hutton ASTEPRO 137 MCG/SPRAY SOLN 2 puffs each nostril QHS AZELASTINE HCL 34986434377 No Longer Active America Rivka Hutton SPIRIVA HANDIHALER 18 MCG CAPS 1 inhalation daily TIOTROPIUM BROMIDE MONOHYDRATE 90516839915 No Longer Active America Rivka Hutton AZALEA-D 24 HOUR 180-240 MG [id number] 1 PO daily FEXOFENADINE-PSEUDOEPHEDRINE 85466209847 No Longer Active America Rivka Hutton BACTRIM DS 800-160 MG TAB 1 PO BID TRIMETHOPRIM- SULFAMETHOXAZOLE 38103886023 No Longer Active America Rivka Hutton LEVAQUIN 500 MG TAB 1 PO QD LEVOFLOXACIN 70726493381 No Longer Active America Rivka Hutton PREDNISONE 20 MG TAB 2 pills at once for 2 days then 1 pill daily for 2 days PREDNISONE 73248336766 No Longer Active America Rivka Hutton ROBITUSSIN A-C 10-100 MG/5ML SYRUP 1 teaspoon PO Q 4-6 hr prn ROBITUSSIN A-C 10-100 MG/5ML SYRUP No Longer Active America Rivka DE PAZ'Akira NASAL SPRAY (DEXAMETHASONE, GENTAMICIN, SALINE) 2 puffs each nostril TID for [address] DE PAZ'Akira NASAL SPRAY ( DEXAMETHASONE, GENTAMICIN, SALINE) No Longer Active America Rivka Hutton LEVAQUIN 750 MG TABS 1 po daily for 7 days LEVOFLOXACIN 07938282271 No Longer Active America Hutton BACTRIM DS 800-160 MG TAB 1 PO BID TRIMETHOPRIM- SULFAMETHOXAZOLE 06632061688 No Longer Active America Hutton HUMALOG PEN 100 UNIT/ML SOLN 25 units twice daily INSULIN LISPRO (HUMAN) 90057202839 No Longer Active America Hutton LANTUS FOR OPTICLIK 100 UNIT/ML SOLN 20 units injection every night 09/09 INSULIN GLARGINE 36421232744 No Longer Active America Hutton ROBITUSSIN A-C 10-100 MG/5ML SYRUP 1 teaspoon PO Q 4-6 hr prn ROBITUSSIN A-C 10-100 MG/5ML SYRUP No Longer Active Ramila DE PAZ'Akira NASAL SPRAY (DEXAMETHASONE, GENTAMICIN, SALINE) 2 puffs each nostril TID for [address] STRAUSS NASAL SPRAY ( DEXAMETHASONE, GENTAMICIN, SALINE) No Longer Active America Hutton AUGMENTIN 875-125 MG TAB 1 PO BID AMOXICILLIN-POT CLAVULANATE 78190778485 No Longer Active America Hutton ROBITUSSIN A-C 10-100 MG/5ML SYRUP 1 teaspoon PO Q 4-6 hr prn ROBITUSSIN A-C 10-100 MG/5ML SYRUP No Longer Active America STRAUSS NASAL SPRAY (DEXAMETHASONE, GENTAMICIN, SALINE) 2 puffs each nostril TID for [address] STRAUSS NASAL SPRAY ( DEXAMETHASONE, GENTAMICIN, SALINE) No Longer Active Barron Lowell LEVAQUIN 500 MG TAB 1 PO QD LEVOFLOXACIN 19512144714 No Longer Active Barron Joi PREDNISONE 20 MG TAB 2 pills at once for 2 days then 1 pill daily for 2 days PREDNISONE 00991684161 No Longer Active America STRAUSS NASAL SPRAY (DEXAMETHASONE, GENTAMICIN, SALINE) 2 puffs each nostril TID for [address] STRAUSS NASAL SPRAY ( DEXAMETHASONE, GENTAMICIN, SALINE) No Longer Active America Hutton AMOXICILLIN 500 MG CAP 1 PO TID AMOXICILLIN 83589442570 No Longer Active America Hutton LISINOPRIL 10 MG TABS 1 PO Daily LISINOPRIL 37930145272 No Longer Active Ramila Oates FLOMAX 0.4 MG CP24 1 PO QHS for prostate TAMSULOSIN HCL 64469988124 No Longer Active America Hutton MAGNESIUM OXIDE 400 MG TABS 1 PO daily MAGNESIUM OXIDE 06947568793 Active Suyapa Shahnaz LASIX 20 MG TAB Take 2 PO BID FUROSEMIDE 04724724953 Active Ramila Oates KEFLEX 500 MG CAP 1 PO TID for 7 days CEPHALEXIN 05013298724 No Longer Active America Hutton ATROVENT 0.06 % SOLN 2 puffs each nostril TID prn runny nose 2008 IPRATROPIUM BROMIDE 56641946883 No Longer Active America Hutton PREDNISONE 20 MG TAB 3 pills daily at once for 3 days, 2 pills daily at once for 3 days, 1 once daily for 3 days PREDNISONE 42779392284 No Longer Active America Hutton LEVAQUIN 500 MG TAB 1 PO QD LEVOFLOXACIN 56167006116 No Longer Active America Hutton CRESTOR 5 MG TABS 1 PO daily ROSUVASTATIN CALCIUM 99790444323 Active America Hutton PREDNISONE 20 MG TAB 2 pills at once for 2 days then 1 pill daily for 2 days PREDNISONE 28397988155 No Longer Active America STRAUSS NASAL SPRAY (DEXAMETHASONE, GENTAMICIN, SALINE) 2 puffs each nostril TID for [address] STRAUSS NASAL SPRAY ( DEXAMETHASONE, GENTAMICIN, SALINE) No Longer Active America Hutton AUGMENTIN 875-125 MG TAB 1 PO BID AMOXICILLIN-POT CLAVULANATE 93332699129 No Longer Active America Hutton BIAXIN 500 MG TAB 1 PO BID for 7 days CLARITHROMYCIN 29969561963 No Longer Active [facility] ALBUTEROL SULFATE (2.5 MG/3ML) 0.083% NEBU 1 treatment QID ALBUTEROL SULFATE 03566407039 Active America Hutton ROBITUSSIN A-C 10-100 MG/5ML SYRUP 1 teaspoon PO Q 4-6 hr prn ROBITUSSIN A-C 10-100 MG/5ML SYRUP 35960578009 No Longer Active Y Y DOXYCYCLINE HYCLATE 100 MG CAP 1 po BID. Take with food to avoid nausea. 2007 DOXYCYCLINE HYCLATE 08018527508 No Longer Active Y Y BIAXIN 500 MG TAB 1 PO BID for lung infection CLARITHROMYCIN 78358510481 No Longer Active America Hutton MEVACOR 40 MG TABS 1 PO daily LOVASTATIN 51355695388 No Longer Active America Hutton BYETTA 10 MCG PEN SOLN i injection am and at supper(On hold 09/04/07 while re- starting Humalog) EXENATIDE SOLN 35321805377 No Longer Active America Hutton LEVITRA 10 MG TABS 1 PO as directed VARDENAFIL HCL 68400059574 No Longer Active Tyler Bolton AUGMENTIN 500-125 MG TAB 1 PO BID AMOXICILLIN-POT CLAVULANATE 42878684129 No Longer Active Ramila STRAUSS NASAL SPRAY (DEXAMETHASONE, GENTAMICIN, SALINE) 2 puffs each nostril TID for [address] DE PAZ'S NASAL SPRAY ( DEXAMETHASONE, GENTAMICIN, SALINE) No Longer Active Ramila Oates KENALOG 1 injection monthly, 2nd week of the month KENALOG No Longer Active Americaedy Hutton VITAMIN B-12 1 injection monthly VITAMIN B-12 No Longer Active America Rivka Hutton CHANTIX 1 MG TABS as directed VARENICLINE TARTRATE 35976766234 No Longer Active America Rivka Hutton LEVEMIR FLEXPEN SOLN 15 units QHS INSULIN DETEMIR SOLN 48094780783 No Longer Active America Rivka Hutton CIALIS 20 MG TABS 1po daily prn TADALAFIL 78642019870 No Longer Active America Rivka Hutton VIAGRA 50 MG TABS Take 1 PO prn SILDENAFIL CITRATE 74677654605 No Longer Active America Rivka Hutton LOTRISONE 1-0.05 % CREA Apply to both arms BID CLOTRIMAZOLE-BETAMETHASONE 49176065899 No Longer Active America Rivka Hutton LEVAQUIN 500 MG TAB 1 PO QD LEVOFLOXACIN 09892983344 No Longer Active Americaedy Hutton SPIRONOLACTONE 25 MG TABS 2 po daily SPIRONOLACTONE 57040148758 Active Ramila Oates TAMIFLU 75 MG CAPS 1 po BID x 5 days OSELTAMIVIR PHOSPHATE 91654677389 No Longer Active America Rivka Hutton LANTUS FOR OPTICLIK 100 UNIT/ML SOLN 10 units QHS INSULIN GLARGINE 44263545596 No Longer Active America Rivka Hutton ATROVENT 0.06 % SOLN 2 puffs each nostril BID x 7 days IPRATROPIUM BROMIDE 38487953295 No Longer Active America Rivka Hutton AUGMENTIN 875-125 MG TABS 1 po BID for 7 days. AMOXICILLIN-POT CLAVULANATE 10465597339 No Longer Active America Rivka Hutton AZALEA 180 MG TABS 1 po daily FEXOFENADINE HCL 80328733851 No Longer Active America Hutton PYRIDIUM 200 MG TABS 1 po TID for 3 days PHENAZOPYRIDINE HCL 10311409567 No Longer Active America Hutton ZAROXOLYN 5 MG TABS 1 PO daily METOLAZONE Active Ramila Mcintyre NOVOLOG PENFILL SOLN 4 units before meals INSULIN ASPART SOLN 44479975347 No Longer Active America Arellanoner Immunizations Vaccine Administration Date Value Standard Description [...] Description Clinical Lists Update: CBC,CMP - Chemistry urea nitrogen, blood 22 mg/dL [...] sodium, serum 131 mmol/L Clinical Lists Update: CBC,CMP - Hematology hematocrit, blood 45 % red [...] - Chemistry Estimated Glomerular Filtration Rate (calc) 53 mL/min/1.73m2 Estimated Glomerular Filtration Rate (calc) 70 mL/min/1.73m2 glucose, plasma fasting 221 mg/dL glucose, plasma fasting 161 mg/dL anion gap, serum 13 anion gap, serum 14 sodium, serum 133 mmol/L sodium, serum 133 mmol/L triglyceride, serum, fasting 196 mg/dL triglyceride, serum, fasting 207 mg/dL bilirubin, serum, total 0.4 mg/dL bilirubin, serum, total 0.5 mg/dL alanine aminotransferase (SGPT), serum 14 U/L alanine aminotransferase (SGPT), serum 12 U/L aspartate aminotransferase (SGOT), serum 13 U/L aspartate aminotransferase (SGOT), serum 12 U/L protein, total, serum 7.6 g/dL protein, total, serum 7.2 g/dL potassium, serum 4.2 mmol/L potassium, serum 3.5 mmol/L thyroid stimulating hormone, serum 1.36 u[iU]/mL thyroid stimulating hormone, serum 1.73 u[iU]/mL hemoglobin A1C, blood, as % of total hemoglobin 8.9 % hemoglobin A1C, blood, as % of total hemoglobin 9.2 % thyroxine, serum, free 0.80 ng/dL thyroxine, serum, free 0.90 ng/dL creatinine, serum 1.4 mg/dL creatinine, serum 1.1 mg/dL carbon dioxide, venous blood 26.0 mmol/L carbon dioxide, venous blood 23.0 mmol/L cholesterol, serum 130 mg/dL cholesterol, serum 144 mg/dL chloride, serum 98 mmol/L chloride, serum 100 mmol/L calcium, serum 9.8 mg/dL calcium, serum 9.3 mg/dL urea nitrogen, blood 21 mg/dL urea nitrogen, blood 13 mg/dL alkaline phosphatase, serum 73 U/L alkaline phosphatase, serum 71 U/L albumin, serum 4.3 g/dL albumin, serum 4.2 g/dL Clinical Lists Update: CMP,FLP,TSH,FREE T4,HGA1C - Chemistry alkaline phosphatase, serum 82 U/L triglyceride, serum, fasting 126 mg/dL urea nitrogen, blood 19 mg/dL anion gap, serum 12 calcium, serum 9.5 mg/dL alanine aminotransferase (SGPT), serum 10 U/L chloride, serum 98 mmol/L cholesterol, serum 135 mg/dL cholesterol/HDL ratio, serum, percent 4.2 carbon dioxide, venous blood 27.0 mmol/L bilirubin, serum, total 0.4 mg/dL creatinine, serum 1.3 mg/dL thyroxine, serum, free 0.80 ng/dL HDL cholesterol, serum 32.0 mg/dL albumin, serum 4.1 g/dL glucose, plasma fasting 201 mg/dL protein, total, serum 7.1 g/dL sodium, serum 133 mmol/L potassium, serum 4.0 mmol/L Estimated Glomerular Filtration Rate (calc) 62 mL/min/1.73m2 LDL cholesterol, serum 78 mg/dL thyroid stimulating hormone, serum 1.34 u[iU]/mL hemoglobin A1C, blood, as % of total hemoglobin 9.6 % aspartate aminotransferase (SGOT), serum 10 U/L Clinical Lists Update: ER LABS - Chemistry urea nitrogen, blood 21 mg/dL calcium, serum 10.1 mg/dL chloride, serum 97 mmol/L carbon dioxide, venous blood 24 mmol/L creatinine, serum 1.64 mg/dL albumin, serum 4.0 g/dL potassium, serum 3.8 mmol/L protein, total, serum 7.5 g/dL aspartate aminotransferase (SGOT), serum 13 U/L alanine aminotransferase (SGPT), serum 17 U/L bilirubin, serum, total 0.3 mg/dL sodium, serum 134 mmol/L anion gap, serum 17 glucose, plasma fasting 237 mg/dL alkaline phosphatase, serum 95 U/L Estimated Glomerular Filtration Rate (calc) 43 mL/min/1.73m2 Clinical Lists Update: ER LABS - Hematology hemoglobin, blood 15.2 g/dL hematocrit, blood 43.9 % red blood cell distribution width 13.0 % mean corpuscular volume, RBC 89.0 fL leukocyte count, blood 19.36 10*3/mm3 erythrocyte (RBC) count 4.92 10*6/mm3 platelet count 310 10*3/mm3 Clinical Lists Update: HgA1c - Chemistry hemoglobin A1C, blood, as % of total hemoglobin 9.30 % Clinical Lists Update: HgA1c DR [facility] LABS - Chemistry hemoglobin A1C, blood, as % of total hemoglobin 11.3 % Encounters Code Encounter Date Provider Facility CPT-77806 Ofc Vst, Est Level III 17:18:19 CDT America Rivka Anni Arellanoner, DO, FACP CPT-94361 Ofc Vst, Est Level IV 15:55:02 CDT America Rivka Anni Hutton, DO, FACP CPT-07154 Ofc Vst, Est Level IV 12:24:37 GRIEVANCE COORDINATOR America Rivka Anni Hutton, DO, FACP CPT-95701 Ofc Vst, Est Level IV 17:38:12 CDT America Rivka Anni Hutton, DO, FACP CPT-36424 Ofc Vst, Est Level III 14:37:41 CDT America Rivka Anni Hutton, DO, FACP CPT-39436 Ofc Vst, Est Level III 12:43:48 GRIEVANCE COORDINATOR America Rivka Anni Hutton, DO, FACP CPT-17233 Ofc Vst, Est Level IV 10:57:08 GRIEVANCE COORDINATOR America Hutton, DO, FACP CPT-87047 Ofc Vst, Est Level IV 16:59:13 CDT America Rivka Anni Hutton, DO, FACP CPT-60454 Ofc Vst, Est Level IV 16:43:56 CDT America Rivkabobbi [facility] CPT-14695 Ofc Vst, Est Level III 16:27:39 CDT Americaedy Hutton, DO, FACP CPT-81956 Ofc Vst, Est Level IV 14:14:50 CDT America Rivka Anni Hutton, DO, FACP CPT-69850 Ofc Vst, Est Level III 11:30:50 CDT Americaedy Champion Hutton, DO, FACP CPT-51164 Ofc Vst, Est Level III 16:29:28 CDT America Champion Hutton, DO, FACP CPT-48977 Ofc Vst, Est Level IV 16:50:49 GRIEVANCE COORDINATOR Americaedy Champion Hutton, DO, FACP CPT-84612 Ofc Vst, Est Level IV 11:54:05 CDT Americaedy Champion Hutton, DO, FACP CPT-42566 Ofc Vst, Est Level IV 10:52:34 CDT America Champion Hutton, DO, FACP CPT-99217 Ofc Vst, Est Level IV 11:30:28 GRIEVANCE COORDINATOR America Champion Anni, DO, FACP CPT-30222 Ofc Vst, Est Level IV 10:48:08 GRIEVANCE COORDINATOR America Champion Hutton, DO, FACP CPT-67158 Ofc Vst, Est Level IV 11:36:11 CDT America Champion Hutton, DO, FACP CPT-93547 Ofc Vst, Est Level IV 10:59:29 CDT Americaedy Champion Hutton, DO, FACP CPT-15957 Ofc Vst, Est Level IV 11:57:28 CDT Americaedy Champion Hutton, DO, FACP CPT-58932 Ofc Vst, Est Level IV 11:04:42 GRIEVANCE COORDINATOR America Champion Hutton, DO, FACP CPT-01327 Ofc Vst, Est Level V 11:03:29 GRIEVANCE COORDINATOR mAerica Champion Anni, DO, FACP CPT-14636 Ofc Vst, Est Level IV 10:53:30 CDT America Rivka Champion Hutton, DO, FACP CPT-03346 Ofc Vst, Est Level IV 11:12:42 CDT America Rivka Champion Hutton, DO, FACP CPT-97518 Ofc Vst, Est Level IV 11:25:49 CDT America Rivka Champion Hutton, DO, FACP CPT-68160 Ofc Vst, Est Level IV 14:19:05 CDT America Rivka Champion Hutton, DO, FACP CPT-56541 Ofc Vst, Est Level V 15:01:50 GRIEVANCE COORDINATOR America Hutton [facility] CPT-30471 Ofc Vst, Est Level IV 11:18:30 GRIEVANCE COORDINATOR America Rivka Champion Anni, DO, FACP CPT-87238 Ofc Vst, Est Level IV 14:33:19 CDT America Rivka Champion Hutton, DO, FACP CPT-44402 Ofc Vst, Est Level IV 14:24:09 CDT America Rivka Champion Hutton, DO, FACP CPT-60411 Ofc Vst, Est Level IV 16:24:25 CDT Americaedy Hutton [facility] CPT-92526 Ofc Vst, Est Level V 12:06:18 CDT America Rivka Champion Hutton, DO, FACP CPT-87219 Ofc Vst, Est Level IV 11:32:52 CDT America Rivka Cross S Hutton, DO, FACP CPT-79906 Ofc Vst, Est Level V 15:54:46 CDT America Rivka Champion Hutton, DO, FACP CPT-83378 Ofc Vst, Est Level IV 14:32:33 CDT America Rivka Champion Hutton, DO, FACP CPT-63182 Ofc Vst, Est Level IV 14:06:04 GRIEVANCE COORDINATOR America Champion Hutton, DO, FACP CPT-95197 Ofc Vst, Est Level IV 10:36:45 GRIEVANCE COORDINATOR America Champion Hutton, DO, FACP CPT-30333 Ofc Vst, Est Level IV 13:12:16 CDT America Rivka Champion Hutton, DO, FACP CPT-83923 Ofc Vst, Est Level IV 15:20:36 CDT America Rivka Champion Hutton, DO, FACP CPT-45181 Ofc Vst, Est Level III 12:05:11 CDT America Rivka Champion Hutton, DO, FACP CPT-74537 Ofc Vst, Est Level III 13:05:33 CDT Americaedy Champion Hutton, DO, FACP CPT-78964 Ofc Vst, Est Level IV 14:09:19 CDT Americaedy Champion Hutton, DO, FACP CPT-70188 Ofc Vst, Est Level IV 14:00:30 GRIEVANCE COORDINATOR America Champion Hutton, DO, FACP CPT-33539 Ofc Vst, Est Level IV 17:29:08 GRIEVANCE COORDINATOR America Champion Hutton, DO, FACP CPT-61133 Ofc Vst, Est Level III 13:45:01 GRIEVANCE COORDINATOR America Champion Hutton, DO, FACP CPT-33599 Ofc Vst, Est Level IV 15:24:26 GRIEVANCE COORDINATOR America Cross S Hutton, DO, FACP CPT-95235 Ofc Vst, Est Level IV 15:54:58 GRIEVANCE COORDINATOR America Champion Hutton, DO, FACP CPT-37096 Ofc Vst, Est Level IV 10:17:27 GRIEVANCE COORDINATOR Americaedy Champion DO Anni, FACP CPT-56578 Ofc Vst, Est Level IV 11:40:37 CDT America Rivka Hutton Americaedy Hutton DO, FACP CPT-73531 Ofc Vst, New Level IV 17:22:52 CDT America Arellanoner Aemricaedy Hutton DO, FACP Procedures Code Procedure Name Date Entry Date Standard Description CPT-58832 Preventive, Est, (40-64) 13:27:46 CDT CPT-16736 Preventive, Est, (40-64) 21:40:47 CDT CPT-33234 Preventive, Est, (40-64) 20:22:44 GRIEVANCE COORDINATOR CPT-89992 Injection 11:25:49 CDT CPT-18423 Injection 14:19:05 CDT CPT-40994 Injection 14:33:19 CDT CPT-74332 Injection 14:24:09 CDT CPT-21007 Injection 16:24:25 CDT CPT-32311 Injection 14:32:33 CDT CPT-88669 Injection 14:06:04 GRIEVANCE COORDINATOR CPT-91417 Biopsy, skin/subcut/mucous membrane; sngl lsn 14:21:51 CDT CPT-G0008 Administration Influenza Vaccine 11:40:37 CDT CPT-17168 Influenza Vaccine 11:40:37 CDT
--- OUTSIDE RECORDS SUMMARY | 2017-04-21 14:23 | XMS REPORT | Clinical Summary ---
Author Author User, clipsync Organization America Hutton DO, FACP Address Unknown Phone Allergies, Adverse Reactions, Alerts Allergy Name Reaction Description Start Date Severity Status Provider CODEINE Critical Active America Hutton [facility] NATURAL FISH OIL nausea Critical Active America Hutton STATINS nausea Critical No Longer Active Ameriac Hutton FISH OIL nausea Critical No Longer [...] Coronary atherosclerosis of unspecified type of vessel, penobscot or graft CHRONIC AIRWAY OBSTRUCTION (COPD) 496 [...] acute exacerbation MASS, LUNG 786.6 Resolved America Huttno Swelling, mass, or lump in chest CHF [...] Generic Name NDC Status Provider Patient Instruction ATROVENT 0.06 % SOLN 2 puffs each nostril TID prn runny nose 2014 IPRATROPIUM BROMIDE [id number] No Longer Active Ramila Oates NYSTATIN 411002 U/ML SUSP 5cc PO QID for 7 days NYSTATIN 31489919948 No Longer Active America Hutton TAMIFLU 75 MG CAPS 1 po BID OSELTAMIVIR PHOSPHATE 72844655640 No Longer Active America Hutton NYSTATIN 284514 UNIT/GM CREA apply to affected areas BID for 7 days NYSTATIN 57449278232 No Longer Active Ramila Oates SPIRIVA HANDIHALER 18 MCG CAPS ONE INHALATION DAILY TIOTROPIUM BROMIDE MONOHYDRATE 98719924794 Active America Hutton ATROVENT HFA 17 MCG/ACT AERS 2 puffs BID IPRATROPIUM BROMIDE HFA 45840233361 No Longer Active America Hutton PERFOROMIST 20 MCG/2ML NEBU 1 vial Neb treatment BID FORMOTEROL FUMARATE 10227707181 No Longer Active America Hutton VENTOLIN HFA 108 (90 BASE) MCG/ACT AERS 2 puffs Q 4 hours prn ALBUTEROL SULFATE 90421506755 No Longer Active America Hutton HYDROXYZINE HCL 25 MG TABS 1 PO Q 6HRS PRN HYDROXYZINE HCL 77827101602 Active Ramila Oates SINGULAIR 10 MG TABS 1 PO AT Q HS MONTELUKAST SODIUM 99650212210 Active America Hutton NOVOLOG 100 U/ML SOLN 12 units before meals INSULIN ASPART 35540607875 Active America Hutton LANTUS SOLOSTAR 100 UNIT/ML SOLN 20 units at night INSULIN GLARGINE 36385177712 Active America Hutton AMLACTIN 12 % LOTN Apply a small amount to affected areas BID AMMONIUM LACTATE 87736862149 No Longer Active America Hutton ADVAIR DISKUS 500-50 MCG/DOSE AEPB 1 puff BID FLUTICASONE- SALMETEROL 02146002479 Active Ramila Oates POTASSIUM CHLORIDE ER 20 MEQ CR-TABS 1-2 PO BID POTASSIUM CHLORIDE 28674785469 Active Ramila Oates NOVOFINE 30G X 8 MM MISC DIRECTED DX: 250.00 INSULIN PEN NEEDLE 05854093073 Active Ramila Oates PREDNISONE 10 MG TAB 2 PO daily for for 3 days then 1 PO daily for 5 days. PREDNISONE 67273728665 No Longer Active America DE PAZ'Akira NASAL SPRAY (DEXAMETHASONE, GENTAMICIN, SALINE) 2 puffs each nostril TID for [address] STRAUSS NASAL SPRAY ( DEXAMETHASONE, GENTAMICIN, SALINE) No Longer Active America Hutton CEFDINIR 300 MG CAPS 1 PO BID for 6 weeks CEFDINIR 70257007049 No Longer Active America Hutton PREDNISONE 20 MG TAB 2 pills at once for 2 days then 1 pill daily for 5 days PREDNISONE 07520515794 No Longer Active America Hutton DOXYCYCLINE HYCLATE 100 MG CAP 1 po BID DOXYCYCLINE HYCLATE 82588307779 No Longer Active America Hutton NYSTATIN 060259 U/ML SUSP 5cc PO QID for 7 days NYSTATIN 02926123039 No Longer Active America Rivka Hutton NYSTATIN 306556 U/ML SUSP 5cc PO QID for 7 days NYSTATIN 22598235352 No Longer Active America Rivka Hutton ASPIRIN 325 MG TABS 1 PO daily ASPIRIN 59766621892 No Longer Active America Rivka Hutton COZAAR 100 MG TAB 1 PO Daily LOSARTAN POTASSIUM 55752242573 Active Ramila Oates PREDNISONE 20 MG TAB 2 pills at once for 2 days then 1 pill daily for 5 days PREDNISONE 56721541103 No Longer Active America Rivka Hutton DOXYCYCLINE HYCLATE 100 MG CAP 1 po BID DOXYCYCLINE HYCLATE 99477690376 No Longer Active America Rivka Hutton HYZAAR 100-12.5 MG TABS 1 PO daily LOSARTAN POTASSIUM-HCTZ 24570605325 No Longer Active America Rivka Hutton MOBIC 15 MG TABS 1 PO daily for arthritis MELOXICAM 31828484579 Active America Rivka Hutton PREDNISONE 20 MG TAB 2 pills at once for 2 days then 1 pill daily for 5 days PREDNISONE 59357707371 No Longer Active Americaedy Hutton LEVAQUIN 750 MG TABS 1 PO daily LEVOFLOXACIN 85001865510 No Longer Active America Rivka Hutton ANDROGEL PUMP 20.25 MG/ACT (1.62%) GEL rub in two pumps into skin daily TESTOSTERONE 45702993320 No Longer Active America Rivka Hutton ULTRAM 50 MG TAB 1 PO q 6 hrs prn TRAMADOL HCL 11094789619 No Longer Active America Rivka Hutton VITAMIN D 1000 UNIT TABS 1 PO Daily CHOLECALCIFEROL 17880493318 No Longer Active America Rivka Hutton ETODOLAC 400 MG TABS 1 PO BID ETODOLAC 44202436961 No Longer Active America Rivka Hutton LORTAB 7.5 7.5-500 MG TABS 1-2 q 4-6 hrs. prn HYDROCODONE- ACETAMINOPHEN 81895399177 No Longer Active America Hutton PLAVIX 75 MG TABS 1 po daily CLOPIDOGREL BISULFATE 47373499349 No Longer Active America Hutton ATARAX 25 MG TAB 1 PO Q6 hours prn HYDROXYZINE HCL Active Rosario Moyer PREDNISONE 20 MG TAB 2 pills at once for 2 days then 1 pill daily for 5 days PREDNISONE 21954431581 No Longer Active America Hutton ONETOUCH ULTRA BLUE STRP TEST BS QID DX: DIABETES GLUCOSE BLOOD 33318302136 Active Ramila Oates ATARAX 25 MG TAB 1 PO Q6hrs prn HYDROXYZINE HCL No Longer Active America uHtton PREDNISONE 20 MG TAB 2 pills at once for 2 days then 1 pill daily for 2 days PREDNISONE 12480995664 No Longer Active America Hutton PEN NEEDLES 5/16" 31G X 8 MM MISC as directed INSULIN PEN NEEDLE 71067499376 No Longer Active America Hutton NASONEX 50 MCG/ACT SUSP 2 Puffs ea. nostril daily MOMETASONE FUROATE 13816763415 No Longer Active America Hutton CLARINEX 5 MG TABS 1 po daily DESLORATADINE 08997155426 No Longer Active Americaedy Hutton MIRALAX POWD 1 scoop in 4oz of water PO daily POLYETHYLENE GLYCOL 3350 64914407558 No Longer Active Americaedy Hutton 10% LCD IN THC .1% Apply to arms at bedtime 10% LCD IN THC .1% No Longer Active Americaedy Hutton TRIAMCINOLONE ACETONIDE 0.025 % OINT Apply to rash on arms daily as needed. TRIAMCINOLONE ACETONIDE 41039423094 No Longer Active America Hutton ONE TOUCH ULTRA TEST STRP Test BS TID DX: Diabetes GLUCOSE BLOOD 22781054864 No Longer Active America Hutton BD U/F SHORT PEN NEEDLE 31G X 8 MM MISC as directed with insulin DX: Diabetes INSULIN PEN NEEDLE 87937466347 No Longer Active Americaedy Hutton CIALIS 20 MG TABS 1 PO as directed TADALAFIL 93391467875 No Longer Active Americaedy Hutton ONE TOUCH ULTRA MINI W/DEVICE KIT BLOOD GLUCOSE MONITORING SUPPL 10413982173 No Longer Active America Hutton PEN NEEDLES 5/16" 31G X 8 MM MISC as directed INSULIN PEN NEEDLE 16026914378 No Longer Active America Hutton ATARAX 25 MG TAB 1 PO Q6hrs prn itching HYDROXYZINE HCL No Longer Active Americaedy Hutton PREDNISONE 20 MG TAB 2 pills at once for 2 days then 1 pill daily for 2 days PREDNISONE 41810174712 No Longer Active America Hutton METFORMIN HCL 500 MG TABS 1 po daily METFORMIN HCL 13222088447 No Longer Active America Hutton CLOTRIMAZOLE 10 MG TROC Dissolve 1 tab in mouth QID for 14 days CLOTRIMAZOLE 23388657975 No Longer Active Ramila Oates PREDNISONE 20 MG TAB 2 pills at once for 3 days then 1 pill daily for 3 days PREDNISONE 65513718720 No Longer Active America Hutton LEVAQUIN 750 MG TABS 1 PO daily for 7 days LEVOFLOXACIN 47609304562 No Longer Active America Hutton MYCELEX 10 MG TROC Dissovle in mouth QID for 14 days CLOTRIMAZOLE 67641374430 No Longer Active Ramírez Gtz LEVITRA 20 MG TABS 1 po daily prn VARDENAFIL HCL 34159704474 No Longer Active America Hutton PROAIR HFA AERS Inhale 1-2 puffs 4x daily prn ALBUTEROL SULFATE AERS 89909776601 No Longer Active America Hutton PREDNISONE 20 MG TAB 3 pills daily at once for 2 days, 2 pills daily at once for 2 days, 1 once daily for 2 days PREDNISONE 61037523535 No Longer Active America Hutton LEVAQUIN 750 MG TABS 1 PO daily LEVOFLOXACIN 92073011479 No Longer Active America Hutton HUMALOG KWIKPEN 100 UNIT/ML SOLN 40 units before meals INSULIN LISPRO (HUMAN) 55203121700 No Longer Active America Hutton MICRONASE 2.5 MG TAB 1 PO BID GLYBURIDE No Longer Active Ramila Oates SYNTHROID 0.025 MG TAB 1 PO Daily on empty stomach LEVOTHYROXINE SODIUM 15025735800 Active Ramila Oates METFORMIN HCL 1000 MG TABS 1 PO BID METFORMIN HCL 31294252359 No Longer Active America Hutton ATROVENT 0.06 % SOLN 2 puffs each nostril TID prn runny nose 2010 IPRATROPIUM BROMIDE 88137003574 No Longer Active America Hutton VICTOZA 18 MG/3ML SOLN 0.6mg injection once daily for one month, then 1.2mg injection once daily LIRAGLUTIDE 20024099828 No Longer Active America Hutton FLONASE 50 MCG/DOSE INHALANT 2 puffs each nostril daily FLONASE 50 MCG/ DOSE INHALANT No Longer Active America Hutton ZYRTEC 10 MG TAB 1 PO QD CETIRIZINE HCL No Longer Active America Rivka Hutton FLUCONAZOLE 200 MG TABS 1 PO daily for 5 days FLUCONAZOLE 72041741156 No Longer Active America Rivka Hutton ADVAIR DISKUS 500-50 MCG/DOSE MISC 1 puff BID FLUTICASONE-SALMETEROL 61632369846 No Longer Active America Rivka Hutton LEVAQUIN 500 MG TAB 1 PO QD LEVOFLOXACIN 06545707054 No Longer Active America Rivka Hutton ASTEPRO 137 MCG/SPRAY SOLN 2 puffs each nostril QHS AZELASTINE HCL 22971964602 No Longer Active America Rivka Hutton SPIRIVA HANDIHALER 18 MCG CAPS 1 inhalation daily TIOTROPIUM BROMIDE MONOHYDRATE 92481439031 No Longer Active America Rivka Hutton AZALEA-D 24 HOUR 180-240 MG [id number]-XOD 1 PO daily FEXOFENADINE-PSEUDOEPHEDRINE 13525342586 No Longer Active America Rivka Hutton BACTRIM DS 800-160 MG TAB 1 PO BID TRIMETHOPRIM- SULFAMETHOXAZOLE 09357828042 No Longer Active America Rivka Hutton LEVAQUIN 500 MG TAB 1 PO QD LEVOFLOXACIN 20615544685 No Longer Active America Rivka Hutton PREDNISONE 20 MG TAB 2 pills at once for 2 days then 1 pill daily for 2 days PREDNISONE 71859888515 No Longer Active America Rivka Hutton ROBITUSSIN [...] 1 po daily for 7 days LEVOFLOXACIN 57388639964 No Longer Active America Hutton BACTRIM DS 800-160 MG TAB 1 PO BID TRIMETHOPRIM- SULFAMETHOXAZOLE 25490908465 No Longer Active America Hutton HUMALOG PEN 100 UNIT/ML SOLN 25 units twice daily INSULIN LISPRO (HUMAN) 35799098096 No Longer Active America Hutton LANTUS FOR OPTICLIK 100 UNIT/ML SOLN 20 units injection every night 09/09 INSULIN GLARGINE 92791949107 No Longer Active America Hutton ROBITUSSIN A-C 10-100 MG/5ML SYRUP 1 teaspoon PO Q 4-6 hr prn ROBITUSSIN A-C 10-100 MG/5ML SYRUP No Longer Active Ramila DE PAZ'S NASAL SPRAY (DEXAMETHASONE, GENTAMICIN, SALINE) 2 puffs each nostril TID for [address] STRAUSS NASAL SPRAY ( DEXAMETHASONE, GENTAMICIN, SALINE) No Longer Active America Hutton AUGMENTIN 875-125 MG TAB 1 PO BID AMOXICILLIN-POT CLAVULANATE 92635429942 No Longer Active America Hutton ROBITUSSIN A-C 10-100 MG/5ML SYRUP 1 teaspoon PO Q 4-6 hr prn ROBITUSSIN A-C 10-100 MG/5ML SYRUP No Longer Active America NULLS NASAL SPRAY (DEXAMETHASONE, GENTAMICIN, SALINE) 2 puffs each nostril TID for [address] STRAUSS NASAL SPRAY ( DEXAMETHASONE, GENTAMICIN, SALINE) No Longer Active Barron Joi LEVAQUIN 500 MG TAB 1 PO QD LEVOFLOXACIN 76848456430 No Longer Active Barron [place] PREDNISONE 20 MG TAB 2 pills at once for 2 days then 1 pill daily for 2 days PREDNISONE 03640511813 No Longer Active America DE PAZ'Akira NASAL SPRAY (DEXAMETHASONE, GENTAMICIN, SALINE) 2 puffs each nostril TID for [address] STRAUSS NASAL SPRAY ( DEXAMETHASONE, GENTAMICIN, SALINE) No Longer Active America Hutton AMOXICILLIN 500 MG CAP 1 PO TID AMOXICILLIN 80559998954 No Longer Active America Hutton LISINOPRIL 10 MG TABS 1 PO Daily LISINOPRIL 51361856662 No Longer Active Ramila Oates FLOMAX 0.4 MG CP24 1 PO QHS for prostate TAMSULOSIN HCL 24162452320 No Longer Active America Hutton MAGNESIUM OXIDE 400 MG TABS 1 PO daily MAGNESIUM OXIDE 23653285043 Active Suyapa Christie LASIX 20 MG TAB Take 2 PO BID FUROSEMIDE 19865100294 Active Ramila Oates KEFLEX 500 MG CAP 1 PO TID for 7 days CEPHALEXIN 98707077570 No Longer Active America Hutton ATROVENT 0.06 % SOLN 2 puffs each nostril TID prn runny nose 2008 IPRATROPIUM BROMIDE 11636686565 No Longer Active America Hutton PREDNISONE 20 MG TAB 3 pills daily at once for 3 days, 2 pills daily at once for 3 days, 1 once daily for 3 days PREDNISONE 24794087088 No Longer Active America Hutton LEVAQUIN 500 MG TAB 1 PO QD LEVOFLOXACIN 27467495658 No Longer Active America Hutton CRESTOR 5 MG TABS 1 PO daily ROSUVASTATIN CALCIUM 51497145106 Active America Hutton PREDNISONE 20 MG TAB 2 pills at once for 2 days then 1 pill daily for 2 days PREDNISONE 18329411778 No Longer Active America DE PAZ'Akira NASAL SPRAY (DEXAMETHASONE, GENTAMICIN, SALINE) 2 puffs each nostril TID for [address] STRAUSS NASAL SPRAY ( DEXAMETHASONE, GENTAMICIN, SALINE) No Longer Active America Hutton AUGMENTIN 875-125 MG TAB 1 PO BID AMOXICILLIN-POT CLAVULANATE 80953671495 No Longer Active America Hutton BIAXIN 500 MG TAB 1 PO BID for 7 days CLARITHROMYCIN 28168609587 No Longer Active Da Tse ALBUTEROL SULFATE (2.5 MG/3ML) 0.083% NEBU 1 treatment QID ALBUTEROL SULFATE 45864961558 Active America Hutton ROBITUSSIN A-C 10-100 MG/5ML SYRUP 1 teaspoon PO Q 4-6 hr prn ROBITUSSIN A-C 10-100 MG/5ML SYRUP 40081661147 No Longer Active Y Y DOXYCYCLINE HYCLATE 100 MG CAP 1 po BID. Take with food to avoid nausea. 2007 DOXYCYCLINE HYCLATE 43634490998 No Longer Active Y Y BIAXIN 500 MG TAB 1 PO BID for lung infection CLARITHROMYCIN 91855478428 No Longer Active America Hutton MEVACOR 40 MG TABS 1 PO daily LOVASTATIN 61235447824 No Longer Active America Hutton BYETTA 10 MCG PEN SOLN i injection am and at supper(On hold 09/04/07 while re- starting Humalog) EXENATIDE SOLN 29437248157 No Longer Active America Hutton LEVITRA 10 MG TABS 1 PO as directed VARDENAFIL HCL 43910825353 No Longer Active Tyler Bolton AUGMENTIN 500-125 MG TAB 1 PO BID AMOXICILLIN-POT CLAVULANATE 57493696701 No Longer Active Ramila DE PAZ'Akira NASAL [...] 1 MG TABS as directed VARENICLINE TARTRATE 60070701931 No Longer Active Americaedy Hutton LEVEMIR FLEXPEN SOLN 15 units QHS INSULIN DETEMIR SOLN 20013118550 No Longer Active America Hutton CIALIS 20 MG TABS 1po daily prn TADALAFIL 26155813667 No Longer Active Americaedy Hutton VIAGRA 50 MG TABS Take 1 PO prn SILDENAFIL CITRATE 67219297509 No Longer Active Americaedy Hutton LOTRISONE 1-0.05 % CREA Apply to both arms BID CLOTRIMAZOLE-BETAMETHASONE 08880575587 No Longer Active America Hutton LEVAQUIN 500 MG TAB 1 PO QD LEVOFLOXACIN 93596664666 No Longer Active America Hutton SPIRONOLACTONE 25 MG TABS 2 po daily SPIRONOLACTONE 56673551090 Active Ramila Oates TAMIFLU 75 MG CAPS 1 po BID x 5 days OSELTAMIVIR PHOSPHATE 56942525533 No Longer Active Americaedy Hutton LANTUS FOR OPTICLIK 100 UNIT/ML SOLN 10 units QHS INSULIN GLARGINE 61989202051 No Longer Active Americaedy Hutton ATROVENT 0.06 % SOLN 2 puffs each nostril BID x 7 days IPRATROPIUM BROMIDE 76199183181 No Longer Active America Rivka Arellanoner AUGMENTIN 875-125 MG TABS 1 po BID for 7 days. AMOXICILLIN-POT CLAVULANATE 96187264543 No Longer Active America Hutton AZALEA 180 MG TABS 1 po daily FEXOFENADINE HCL 97708659967 No Longer Active America Hutton PYRIDIUM 200 MG TABS 1 po TID for 3 days PHENAZOPYRIDINE HCL 89344691131 No Longer Active America Hutton ZAROXOLYN 5 MG TABS 1 PO daily METOLAZONE Active Ramila Oates NOVOLOG PENFILL SOLN 4 units before meals INSULIN ASPART SOLN 93750439454 No Longer Active America Hutton Immunizations Vaccine [...] Description Clinical Lists Update: CBC,CMP - Chemistry albumin, serum 3.0 g/dL Estimated Glomerular Filtration Rate (calc) 55 mL/min/1.73m2 urea nitrogen, blood 22 mg/dL calcium, serum 9.6 mg/dL chloride, serum 93 mmol/L carbon dioxide, venous blood 30.0 mmol/L creatinine, serum 1.4 mg/dL potassium, serum 3.9 mmol/L protein, total, serum 7.1 g/dL aspartate aminotransferase (SGOT), serum 11 U/L alanine aminotransferase (SGPT), serum 18 U/L bilirubin, serum, total 0.5 mg/dL sodium, serum 131 mmol/L anion gap, serum 12 glucose, plasma fasting 294 mg/dL alkaline phosphatase, serum 71 U/L Clinical Lists Update: CBC,CMP - Hematology hemoglobin, blood 14.2 g/dL hematocrit, blood 45 % platelet count 297 10*3/mm3 erythrocyte (RBC) count 4.76 10*6/mm3 leukocyte count, blood 15.0 10*3/mm3 mean corpuscular volume, RBC 95 fL red blood cell distribution width 13.7 % Clinical Lists Update: CBC,CMP RE: DR SILVESTRE [facility] - Chemistry potassium, serum 3.8 mmol/L albumin, serum 4.0 g/dL aspartate aminotransferase (SGOT), serum 13 U/L alanine aminotransferase (SGPT), serum 16 U/L bilirubin, serum, total 0.5 mg/dL sodium, serum 134 mmol/L glucose, plasma fasting 205 mg/dL Estimated Glomerular Filtration Rate (calc) 50 mL/min/1.73m2 protein, total, serum 7.8 g/dL alkaline phosphatase, serum 87 U/L urea nitrogen, blood 22 mg/dL calcium, serum 10.4 mg/dL chloride, serum 97 mmol/L carbon dioxide, venous blood 26 mmol/L creatinine, serum 1.42 mg/dL Clinical Lists Update: CBC,CMP RE: DR SILVESTRE [facility] - Hematology hematocrit, blood 41 % hemoglobin, blood 14.0 g/dL platelet count 342 10*3/mm3 erythrocyte (RBC) count 4.75 10*6/mm3 leukocyte count, blood 13.3 10*3/mm3 mean corpuscular volume, RBC 87 fL red blood cell distribution width 13.3 % Clinical Lists Update: CMP,Chol,Trig,TSH,Free T4,HgA1c - Chemistry alkaline phosphatase, serum 71 U/L albumin, serum 4.2 g/dL calcium, serum 9.3 mg/dL chloride, serum 100 mmol/L cholesterol, serum 144 mg/dL carbon dioxide, venous blood 23.0 mmol/L creatinine, serum 1.1 mg/dL thyroxine, serum, free 0.90 ng/dL hemoglobin A1C, blood, as % of total hemoglobin 9.2 % thyroid stimulating hormone, serum 1.73 u[iU]/mL potassium, serum 3.5 mmol/L protein, total, serum 7.2 g/dL aspartate aminotransferase (SGOT), serum 12 U/L alanine aminotransferase (SGPT), serum 12 U/L bilirubin, serum, total 0.5 mg/dL triglyceride, serum, fasting 207 mg/dL sodium, serum 133 mmol/L anion gap, serum 14 glucose, plasma fasting 161 mg/dL Estimated Glomerular Filtration Rate (calc) 70 mL/min/1.73m2 urea nitrogen, blood 13 mg/dL Clinical Lists Update: CMP,FLP,TSH,FREE T4,HGA1C - Chemistry alkaline phosphatase, serum 82 U/L albumin, serum 4.1 g/dL urea nitrogen, blood 19 mg/dL calcium, serum 9.5 mg/dL chloride, serum 98 mmol/L cholesterol, serum 135 mg/dL carbon dioxide, venous blood 27.0 mmol/L creatinine, serum 1.3 mg/dL thyroxine, serum, free 0.80 ng/dL HDL cholesterol, serum 32.0 mg/dL hemoglobin A1C, blood, as % of total hemoglobin 9.6 % thyroid stimulating hormone, serum 1.34 u[iU]/mL LDL cholesterol, serum 78 mg/dL potassium, serum 4.0 mmol/L protein, total, serum 7.1 g/dL aspartate aminotransferase (SGOT), serum 10 U/L alanine aminotransferase (SGPT), serum 10 U/L bilirubin, serum, total 0.4 mg/dL triglyceride, serum, fasting 126 mg/dL sodium, serum 133 mmol/L anion gap, serum 12 cholesterol/HDL ratio, serum, percent 4.2 Estimated Glomerular Filtration Rate (calc) 62 mL/min/1.73m2 glucose, plasma fasting 201 mg/dL Clinical Lists Update: CMP,FLP,TSH,FREE T4,MICROALBUMIN - Chemistry Estimated Glomerular Filtration Rate (calc) 62 mL/min/1.73m2 glucose, plasma fasting 150 mg/dL cholesterol/HDL ratio, serum, percent 5.1 anion gap, serum 9 sodium, serum 131 mmol/L triglyceride, serum, fasting 177 mg/dL bilirubin, serum, total 0.5 mg/dL alanine aminotransferase (SGPT), serum 19 U/L aspartate aminotransferase (SGOT), serum 16 U/L protein, total, serum 7.4 g/dL potassium, serum 3.4 mmol/L LDL cholesterol, serum 77 mg/dL thyroid stimulating hormone, serum 1.83 u[iU]/mL HDL cholesterol, serum 27.0 mg/dL thyroxine, serum, free 0.95 ng/dL creatinine, serum 1.2 mg/dL carbon dioxide, venous blood 27.0 mmol/L cholesterol, serum 139 mg/dL chloride, serum 98 mmol/L calcium, serum 9.7 mg/dL urea nitrogen, blood 16 mg/dL alkaline phosphatase, serum 73 U/L albumin, serum 4.1 g/dL Clinical Lists Update: CMP,FLP,TSH,FREE T4,MICROALBUMIN - Urinalysis microalbumin, urine, semiquantitative 0.3 mg/dL Clinical Lists Update: ER [facility] - Chemistry Estimated Glomerular Filtration Rate (calc) 43 mL/min/1.73m2 albumin, serum 4.0 g/dL alkaline phosphatase, serum 95 U/L urea nitrogen, blood 21 mg/dL calcium, serum 10.1 mg/dL chloride, serum 97 mmol/L carbon dioxide, venous blood 24 mmol/L creatinine, serum 1.64 mg/dL potassium, serum 3.8 mmol/L glucose, plasma fasting 237 mg/dL anion gap, serum 17 sodium, serum 134 mmol/L bilirubin, serum, total 0.3 mg/dL alanine aminotransferase (SGPT), serum 17 U/L aspartate aminotransferase (SGOT), serum 13 U/L protein, total, serum 7.5 g/dL Clinical Lists Update: ER LAB[facility] - Hematology erythrocyte (RBC) count 4.92 10*6/mm3 red blood cell distribution width 13.0 % hematocrit, blood 43.9 % hemoglobin, blood 15.2 g/dL platelet count 310 10*3/mm3 leukocyte count, blood 19.36 10*3/mm3 mean corpuscular volume, RBC 89.0 fL Clinical Lists Update: HgA1c - Chemistry hemoglobin A1C, blood, as % of total hemoglobin 9.30 % Clinical Lists Update: HgA1c DR SILVESTRE [facility] - Chemistry hemoglobin A1C, blood, as % of total hemoglobin 11.3 % Encounters Code Encounter Date Provider Facility CPT-45656 Ofc Vst, Est Level III 17:18:19 CDT Americaedy Hutton, DO, FACP CPT-18465 Ofc Vst, Est Level IV 15:55:02 CDT America Rivka Hutton, DO, FACP CPT-04227 Ofc Vst, Est Level IV 12:24:37 [employer] America Hutton DO, FACP CPT-35500 Ofc Vst, Est Level IV 17:38:12 CDT Americaedy Hutton DO, FACP CPT-67829 Ofc Vst, Est Level III 14:37:41 CDT Americaedy Hutton DO, FACP CPT-89696 Ofc Vst, Est Level III 12:43:48 [employer] America Hutton DO, FACP CPT-30581 Ofc Vst, Est Level IV 10:57:08 [employer] America Hutton DO, FACP CPT-91902 Ofc Vst, Est Level IV 16:59:13 CDT America Hutton DO, FACP CPT-66438 Ofc Vst, Est Level IV 16:43:56 CDT America HAYWOOD CPT-58303 Ofc Vst, Est Level III 16:27:39 CDT America Rivka Hutton America S Hutton, DO, FACP CPT-12300 Ofc Vst, Est Level IV 14:14:50 CDT America Rivka Champion Hutton, DO, FACP CPT-09479 Ofc Vst, Est Level III 11:30:50 CDT America Rivka Champion Hutton, DO, FACP CPT-61202 Ofc Vst, Est Level III 16:29:28 CDT America Rivka Champion Hutton, DO, FACP CPT-06483 Ofc Vst, Est Level IV 16:50:49 [employer] America Champion Anni, DO, FACP CPT-06505 Ofc Vst, Est Level IV 11:54:05 CDT America Rivka Champion Anni, DO, FACP CPT-61102 Ofc Vst, Est Level IV 10:52:34 CDT Americaedy Champion Anni, DO, FACP CPT-55298 Ofc Vst, Est Level IV 11:30:28 [employer] America Champion Anni, DO, FACP CPT-98500 Ofc Vst, Est Level IV 10:48:08 [employer] America Champion Anni, DO, FACP CPT-83042 Ofc Vst, Est Level IV 11:36:11 CDT Americaedy Champion Anni, DO, FACP CPT-18342 Ofc Vst, Est Level IV 10:59:29 CDT America Rivka Champion Anni, DO, FACP CPT-54879 Ofc Vst, Est Level IV 11:57:28 CDT America Champion Anni, DO, FACP CPT-66500 Ofc Vst, Est Level IV 11:04:42 [employer] America Champion Anni, DO, FACP CPT-50286 Ofc Vst, Est Level V 11:03:29 [employer] Americaedy Champion Hutton, DO, FACP CPT-27144 Ofc Vst, Est Level IV 10:53:30 CDT America Rivka Champion Anni, DO, FACP CPT-84056 Ofc Vst, Est Level IV 11:12:42 CDT America Rivka Champion Hutton, DO, FACP CPT-75058 Ofc Vst, Est Level IV 11:25:49 CDT America Rivka Champion Anni, DO, FACP CPT-26757 Ofc Vst, Est Level IV 14:19:05 CDT Americaedy Champion Anni, DO, FACP CPT-28309 Ofc Vst, Est Level V 15:01:50 [employer] Americaedy Hutton [facility] CPT-55015 Ofc Vst, Est Level IV 11:18:30 [employer] America Rivka Champion Anni, DO, FACP CPT-55937 Ofc Vst, Est Level IV 14:33:19 CDT Americaedy Champion Anni, DO, FACP CPT-36687 Ofc Vst, Est Level IV 14:24:09 CDT Americaedy Champion Anni, DO, FACP CPT-23690 Ofc Vst, Est Level IV 16:24:25 CDT Americaedy Hutton [facility] CPT-70260 Ofc Vst, Est Level V 12:06:18 CDT America Rivka Champion Anni, DO, FACP CPT-19207 Ofc Vst, Est Level IV 11:32:52 CDT America Rivka Champion Anni, DO, FACP CPT-28302 Ofc Vst, Est Level V 15:54:46 CDT America Rivka Champion Hutton, DO, FACP CPT-85204 Ofc Vst, Est Level IV 14:32:33 CDT America Rivka Champion Anni, DO, FACP CPT-34074 Ofc Vst, Est Level IV 14:06:04 [employer] America Rivka Champion Hutton, DO, FACP CPT-60669 Ofc Vst, Est Level IV 10:36:45 [employer] [place] Rivka Champion Hutton, DO, FACP CPT-33755 Ofc Vst, Est Level IV 13:12:16 CDT America Rivka Champion Anni, DO, FACP CPT-24332 Ofc Vst, Est Level IV 15:20:36 CDT America Rivka Champion Anni, DO, FACP CPT-57972 Ofc Vst, Est Level III 12:05:11 CDT America Rivka Champion Anni, DO, FACP CPT-06921 Ofc Vst, Est Level III 13:05:33 CDT America Rivka Champion Anni, DO, FACP CPT-49178 Ofc Vst, Est Level IV 14:09:19 CDT America Rivka Champion Anni, DO, FACP CPT-74840 Ofc Vst, Est Level IV 14:00:30 [employer] America Rivka Champion Anni, DO, FACP CPT-72498 Ofc Vst, Est Level IV 17:29:08 [employer] America Champion Anni, DO, FACP CPT-42693 Ofc Vst, Est Level III 13:45:01 [employer] America Cross S Hutton, DO, FACP CPT-49247 Ofc Vst, Est Level IV 15:24:26 [employer] America Rivka Champion Anni, DO, FACP CPT-48493 Ofc Vst, Est Level IV 15:54:58 [employer] America Champion Anni, DO, FACP CPT-33611 Ofc Vst, Est Level IV 10:17:27 [employer] America Champion Anni, DO, FACP CPT-36230 Ofc Vst, Est Level IV 11:40:37 CDT America Champion Anni, DO, FACP CPT-97659 Ofc Vst, New Level IV 17:22:52 CDT America Champion Anni, DO, FACP Procedures Code Procedure Name Date Entry Date Standard Description CPT-27051 Preventive, Est, (40-64) 13:27:46 CDT CPT-24386 Preventive, Est, (40-64) 21:40:47 CDT CPT-79989 Preventive, Est, (40-64) 20:22:44 [employer] CPT-31587 Injection 11:25:49 CDT CPT-11125 Injection 14:19:05 CDT CPT-29372 Injection 14:33:19 CDT CPT-34143 Injection 14:24:09 CDT CPT-92214 Injection 16:24:25 CDT CPT-02124 Injection 14:32:33 CDT CPT-30482 Injection 14:06:04 [employer] CPT-93547 Biopsy, skin/subcut/mucous membrane; sngl lsn 14:21:51 CDT CPT-G0008 Administration Influenza Vaccine 11:40:37 CDT CPT-73636 Influenza Vaccine 11:40:37 CDT
--- OUTSIDE RECORDS SUMMARY | 2017-04-21 14:26 | XMS REPORT | Clinical Summary ---
Author Author User, [email or web address] America Hutton DO, FACP Address Unknown [...] Coronary atherosclerosis of unspecified type of vessel, [place] or graft CHRONIC AIRWAY OBSTRUCTION (COPD) 496 [...] TID prn runny nose 2014 IPRATROPIUM BROMIDE 17725299831 Active Ramila Oates NYSTATIN 304461 U/ML SUSP 5cc PO QID for 7 days NYSTATIN 71623265869 No Longer Active America Hutton TAMIFLU 75 MG CAPS 1 po BID OSELTAMIVIR PHOSPHATE 59041093003 No Longer Active America Hutton NYSTATIN 862327 UNIT/GM CREA apply to affected areas BID for 7 days NYSTATIN 50343873869 No Longer Active Ramila Oates SPIRIVA HANDIHALER 18 MCG CAPS ONE INHALATION DAILY TIOTROPIUM BROMIDE MONOHYDRATE 42658317225 Active America Hutton ATROVENT HFA 17 MCG/ACT AERS 2 puffs BID IPRATROPIUM BROMIDE HFA 20596147104 No Longer Active America Hutton PERFOROMIST 20 MCG/2ML NEBU 1 vial Neb treatment BID FORMOTEROL FUMARATE 21848469225 No Longer Active America Hutton VENTOLIN HFA 108 (90 BASE) MCG/ACT AERS 2 puffs Q 4 hours prn ALBUTEROL SULFATE 29368473871 No Longer Active America Hutton HYDROXYZINE HCL 25 MG TABS 1 PO Q 6HRS PRN HYDROXYZINE HCL 96714096093 Active Ramila Oates SINGULAIR 10 MG TABS 1 PO AT Q HS MONTELUKAST SODIUM 41389370906 Active America Hutton NOVOLOG 100 U/ML SOLN 12 units before meals INSULIN ASPART 14335245762 Active America Hutton LANTUS SOLOSTAR 100 UNIT/ML SOLN 20 units at night INSULIN GLARGINE 92373069437 Active America Hutton AMLACTIN 12 % LOTN Apply a small amount to affected areas BID AMMONIUM LACTATE 25982100962 No Longer Active America Hutton ADVAIR DISKUS 500-50 MCG/DOSE AEPB 1 puff BID FLUTICASONE- SALMETEROL 29872244336 Active Ramila Oates POTASSIUM CHLORIDE ER 20 MEQ CR-TABS 1-2 PO BID POTASSIUM CHLORIDE 74414120738 Active Ramila Oates NOVOFINE 30G X 8 MM MISC DIRECTED DX: 250.00 INSULIN PEN NEEDLE 03716374532 Active Ramila Oates PREDNISONE 10 MG TAB 2 PO daily for for 3 days then 1 PO daily for 5 days. PREDNISONE 66405711341 No Longer Active America DE PAZ'Akira NASAL SPRAY (DEXAMETHASONE, GENTAMICIN, SALINE) 2 puffs each nostril TID for [address] STRAUSS NASAL SPRAY ( DEXAMETHASONE, GENTAMICIN, SALINE) No Longer Active America Hutton CEFDINIR 300 MG CAPS 1 PO BID for 6 weeks CEFDINIR 11768664625 No Longer Active America Hutton PREDNISONE 20 MG TAB 2 pills at once for 2 days then 1 pill daily for 5 days PREDNISONE 55012182256 No Longer Active America Hutton DOXYCYCLINE HYCLATE 100 MG CAP 1 po BID DOXYCYCLINE HYCLATE 81038920706 No Longer Active America Hutton NYSTATIN 656888 U/ML SUSP 5cc PO QID for 7 days NYSTATIN 55643512397 No Longer Active America Rivka Hutton NYSTATIN 483435 U/ML SUSP 5cc PO QID for 7 days NYSTATIN 59242157485 No Longer Active America Rivka Hutton ASPIRIN 325 MG TABS 1 PO daily ASPIRIN 33189802537 No Longer Active America iRvka Hutton COZAAR 100 MG TAB 1 PO Daily LOSARTAN POTASSIUM 37660642739 Active Ramila Oates PREDNISONE 20 MG TAB 2 pills at once for 2 days then 1 pill daily for 5 days PREDNISONE 67322498757 No Longer Active America Rivka Hutton DOXYCYCLINE HYCLATE 100 MG CAP 1 po BID DOXYCYCLINE HYCLATE 70466259892 No Longer Active America Rivka Hutton HYZAAR 100-12.5 MG TABS 1 PO daily LOSARTAN POTASSIUM-HCTZ 05676298405 No Longer Active America Rivka Hutton MOBIC 15 MG TABS 1 PO daily for arthritis MELOXICAM 82930458727 Active America Rivka Hutton PREDNISONE 20 MG TAB 2 pills at once for 2 days then 1 pill daily for 5 days PREDNISONE 94248917977 No Longer Active Americaedy Hutton LEVAQUIN 750 MG TABS 1 PO daily LEVOFLOXACIN 24339222667 No Longer Active America Rivka Hutton ANDROGEL PUMP 20.25 MG/ACT (1.62%) GEL rub in two pumps into skin daily TESTOSTERONE 54029281940 No Longer Active America Rivka Hutton ULTRAM 50 MG TAB 1 PO q 6 hrs prn TRAMADOL HCL 89419065509 No Longer Active America Rivka Hutton VITAMIN D 1000 UNIT TABS 1 PO Daily CHOLECALCIFEROL 25582578234 No Longer Active America Rivka Hutton ETODOLAC 400 MG TABS 1 PO BID ETODOLAC 63499473313 No Longer Active America Rivka Hutton LORTAB 7.5 7.5-500 MG TABS 1-2 q 4-6 hrs. prn HYDROCODONE- ACETAMINOPHEN 42327944624 No Longer Active Americaedy Hutton PLAVIX 75 MG TABS 1 po daily CLOPIDOGREL BISULFATE 20968820064 No Longer Active America Rivka Hutton ATARAX 25 MG TAB 1 PO Q6 hours prn HYDROXYZINE HCL Active Rosario Moyer PREDNISONE 20 MG TAB 2 pills at once for 2 days then 1 pill daily for 5 days PREDNISONE 50624214973 No Longer Active Americaedy Hutton ONETOUCH ULTRA BLUE STRP TEST BS QID DX: DIABETES GLUCOSE BLOOD 36124117133 Active Ramila Oates ATARAX 25 MG TAB 1 PO Q6hrs prn HYDROXYZINE HCL No Longer Active Americaedy Hutton PREDNISONE 20 MG TAB 2 pills at once for 2 days then 1 pill daily for 2 days PREDNISONE 91463832304 No Longer Active Americaedy Hutton PEN NEEDLES 5/16" 31G X 8 MM MISC as directed INSULIN PEN NEEDLE 77641112830 No Longer Active Americaedy Hutton NASONEX 50 MCG/ACT SUSP 2 Puffs ea. nostril daily MOMETASONE FUROATE 93172916513 No Longer Active Americaedy Hutton CLARINEX 5 MG TABS 1 po daily DESLORATADINE 72817251024 No Longer Active Americaedy Hutton MIRALAX POWD 1 scoop in 4oz of water PO daily POLYETHYLENE GLYCOL 3350 80053220906 No Longer Active America Rivka Hutton 10% LCD IN THC .1% Apply to arms at bedtime 10% LCD IN THC .1% No Longer Active America Rivka Hutton TRIAMCINOLONE ACETONIDE 0.025 % OINT Apply to rash on arms daily as needed. TRIAMCINOLONE ACETONIDE 18479942358 No Longer Active America Hutton ONE TOUCH ULTRA TEST STRP Test BS TID DX: Diabetes GLUCOSE BLOOD 24260023519 No Longer Active America Hutton BD U/F SHORT PEN NEEDLE 31G X 8 MM MISC as directed with insulin DX: Diabetes INSULIN PEN NEEDLE 62966233663 No Longer Active Americaedy Hutton CIALIS 20 MG TABS 1 PO as directed TADALAFIL 54021733741 No Longer Active America Hutton ONE TOUCH ULTRA MINI W/DEVICE KIT BLOOD GLUCOSE MONITORING SUPPL 94894781892 No Longer Active America Hutton PEN NEEDLES 5/16" 31G X 8 MM MISC as directed INSULIN PEN NEEDLE 68288564104 No Longer Active America Hutton ATARAX 25 MG TAB 1 PO Q6hrs prn itching HYDROXYZINE HCL No Longer Active Americaedy Hutton PREDNISONE 20 MG TAB 2 pills at once for 2 days then 1 pill daily for 2 days PREDNISONE 80507637988 No Longer Active America Hutton METFORMIN HCL 500 MG TABS 1 po daily METFORMIN HCL 11628922773 No Longer Active America Hutton CLOTRIMAZOLE 10 MG TROC Dissolve 1 tab in mouth QID for 14 days CLOTRIMAZOLE 70278450829 No Longer Active Ramila Oates PREDNISONE 20 MG TAB 2 pills at once for 3 days then 1 pill daily for 3 days PREDNISONE 03934065056 No Longer Active America Hutton LEVAQUIN 750 MG TABS 1 PO daily for 7 days LEVOFLOXACIN 21842652849 No Longer Active America Hutton MYCELEX 10 MG TROC Dissovle in mouth QID for 14 days CLOTRIMAZOLE 40952708631 No Longer Active Ramírez Gtz LEVITRA 20 MG TABS 1 po daily prn VARDENAFIL HCL 50197439446 No Longer Active America Hutton PROAIR HFA AERS Inhale 1-2 puffs 4x daily prn ALBUTEROL SULFATE AERS 02540838513 No Longer Active America Hutton PREDNISONE 20 MG TAB 3 pills daily at once for 2 days, 2 pills daily at once for 2 days, 1 once daily for 2 days PREDNISONE 51978739842 No Longer Active America Hutton LEVAQUIN 750 MG TABS 1 PO daily LEVOFLOXACIN 86595331959 No Longer Active America Hutton HUMALOG KWIKPEN 100 UNIT/ML SOLN 40 units before meals INSULIN LISPRO (HUMAN) 95634349196 No Longer Active America Hutton MICRONASE 2.5 MG TAB 1 PO BID GLYBURIDE No Longer Active Ramila Oates SYNTHROID 0.025 MG TAB 1 PO Daily on empty stomach LEVOTHYROXINE SODIUM 77728233650 Active Ramila Oates METFORMIN HCL 1000 MG TABS 1 PO BID METFORMIN HCL 58848800855 No Longer Active America Hutton ATROVENT 0.06 % SOLN 2 puffs each nostril TID prn runny nose 2010 IPRATROPIUM BROMIDE 63961420266 No Longer Active America Hutton VICTOZA 18 MG/3ML SOLN 0.6mg injection once daily for one month, then 1.2mg injection once daily LIRAGLUTIDE 19676259045 No Longer Active America Hutton FLONASE 50 MCG/DOSE INHALANT 2 puffs each nostril daily FLONASE 50 MCG/ DOSE INHALANT No Longer Active America Hutton ZYRTEC 10 MG TAB 1 PO QD CETIRIZINE HCL No Longer Active America Rivka Hutton FLUCONAZOLE 200 MG TABS 1 PO daily for 5 days FLUCONAZOLE 38303347222 No Longer Active America Rivka Hutton ADVAIR DISKUS 500-50 MCG/DOSE MISC 1 puff BID FLUTICASONE-SALMETEROL 15936008861 No Longer Active America Rivka Hutton LEVAQUIN 500 MG TAB 1 PO QD LEVOFLOXACIN 74432543046 No Longer Active America Rivka Hutton ASTEPRO 137 MCG/SPRAY SOLN 2 puffs each nostril QHS AZELASTINE HCL 46817000650 No Longer Active America Rivka Hutton SPIRIVA HANDIHALER 18 MCG CAPS 1 inhalation daily TIOTROPIUM BROMIDE MONOHYDRATE 75900376726 No Longer Active America Rivka Hutton AZALEA-D 24 HOUR 180-240 MG [id number] 1 PO daily FEXOFENADINE-PSEUDOEPHEDRINE 43267684336 No Longer Active America Rivka Hutton BACTRIM DS 800-160 MG TAB 1 PO BID TRIMETHOPRIM- SULFAMETHOXAZOLE 28864254041 No Longer Active America Rivka Hutton LEVAQUIN 500 MG TAB 1 PO QD LEVOFLOXACIN 10883476440 No Longer Active America Rivka Hutton PREDNISONE 20 MG TAB 2 pills at once for 2 days then 1 pill daily for 2 days PREDNISONE 59798562326 No Longer Active America Rivka Hutton ROBITUSSIN [...] 1 po daily for 7 days LEVOFLOXACIN 95694515170 No Longer Active America Hutton BACTRIM DS 800-160 MG TAB 1 PO BID TRIMETHOPRIM- SULFAMETHOXAZOLE 60123222395 No Longer Active America Hutton HUMALOG PEN 100 UNIT/ML SOLN 25 units twice daily INSULIN LISPRO (HUMAN) 45250593655 No Longer Active America Hutton LANTUS FOR OPTICLIK 100 UNIT/ML SOLN 20 units injection every night 09/09 INSULIN GLARGINE 94712907394 No Longer Active America Hutton ROBITUSSIN A-C 10-100 MG/5ML SYRUP 1 teaspoon PO Q 4-6 hr prn ROBITUSSIN A-C 10-100 MG/5ML SYRUP No Longer Active Ramila DE PAZ'S NASAL SPRAY (DEXAMETHASONE, GENTAMICIN, SALINE) 2 puffs each nostril TID for [address] STRAUSS NASAL SPRAY ( DEXAMETHASONE, GENTAMICIN, SALINE) No Longer Active America Hutton AUGMENTIN 875-125 MG TAB 1 PO BID AMOXICILLIN-POT CLAVULANATE 45725864984 No Longer Active America Hutton ROBITUSSIN A-C 10-100 MG/5ML SYRUP 1 teaspoon PO Q 4-6 hr prn ROBITUSSIN A-C 10-100 MG/5ML SYRUP No Longer Active America STRAUSS NASAL SPRAY (DEXAMETHASONE, GENTAMICIN, SALINE) 2 puffs each nostril TID for [address] STRAUSS NASAL SPRAY ( DEXAMETHASONE, GENTAMICIN, SALINE) No Longer Active Barron [place] LEVAQUIN 500 MG TAB 1 PO QD LEVOFLOXACIN 45485006070 No Longer Active Barron Joi PREDNISONE 20 MG TAB 2 pills at once for 2 days then 1 pill daily for 2 days PREDNISONE 91942098778 No Longer Active America DE PAZ'Akira NASAL SPRAY (DEXAMETHASONE, GENTAMICIN, SALINE) 2 puffs each nostril TID for [address] STRAUSS NASAL SPRAY ( DEXAMETHASONE, GENTAMICIN, SALINE) No Longer Active America Hutton AMOXICILLIN 500 MG CAP 1 PO TID AMOXICILLIN 97095463497 No Longer Active America Hutton LISINOPRIL 10 MG TABS 1 PO Daily LISINOPRIL 40355879777 No Longer Active Ramila Oates FLOMAX 0.4 MG CP24 1 PO QHS for prostate TAMSULOSIN HCL 32762535321 No Longer Active America Hutton MAGNESIUM OXIDE 400 MG TABS 1 PO daily MAGNESIUM OXIDE 81297116291 Active Suyapa Christie LASIX 20 MG TAB Take 2 PO BID FUROSEMIDE 08414613562 Active Ramila Oates KEFLEX 500 MG CAP 1 PO TID for 7 days CEPHALEXIN 35396461923 No Longer Active America Hutton ATROVENT 0.06 % SOLN 2 puffs each nostril TID prn runny nose 2008 IPRATROPIUM BROMIDE 45316909959 No Longer Active America Hutton PREDNISONE 20 MG TAB 3 pills daily at once for 3 days, 2 pills daily at once for 3 days, 1 once daily for 3 days PREDNISONE 76021047532 No Longer Active America Hutton LEVAQUIN 500 MG TAB 1 PO QD LEVOFLOXACIN 22726715113 No Longer Active America Hutton CRESTOR 5 MG TABS 1 PO daily ROSUVASTATIN CALCIUM 11995673034 Active America Hutton PREDNISONE 20 MG TAB 2 pills at once for 2 days then 1 pill daily for 2 days PREDNISONE 95214292835 No Longer Active America DE PAZ'Akira NASAL SPRAY (DEXAMETHASONE, GENTAMICIN, SALINE) 2 puffs each nostril TID for [address] STRAUSS NASAL SPRAY ( DEXAMETHASONE, GENTAMICIN, SALINE) No Longer Active America Hutton AUGMENTIN 875-125 MG TAB 1 PO BID AMOXICILLIN-POT CLAVULANATE 94235405188 No Longer Active America Hutton BIAXIN 500 MG TAB 1 PO BID for 7 days CLARITHROMYCIN 85837822048 No Longer Active [facility] ALBUTEROL SULFATE (2.5 MG/3ML) 0.083% NEBU 1 treatment QID ALBUTEROL SULFATE 04265574462 Active America Hutton ROBITUSSIN A-C 10-100 MG/5ML SYRUP 1 teaspoon PO Q 4-6 hr prn ROBITUSSIN A-C 10-100 MG/5ML SYRUP 14985407488 No Longer Active Y Y DOXYCYCLINE HYCLATE 100 MG CAP 1 po BID. Take with food to avoid nausea. 2007 DOXYCYCLINE HYCLATE 38151009892 No Longer Active Y Y BIAXIN 500 MG TAB 1 PO BID for lung infection CLARITHROMYCIN 50622784587 No Longer Active America Hutton MEVACOR 40 MG TABS 1 PO daily LOVASTATIN 97902449902 No Longer Active America Hutton BYETTA 10 MCG PEN SOLN i injection am and at supper(On hold 09/04/07 while re- starting Humalog) EXENATIDE SOLN 72841452202 No Longer Active America Hutton LEVITRA 10 MG TABS 1 PO as directed VARDENAFIL HCL 71535592541 No Longer Active Tyler Bolton AUGMENTIN 500-125 MG TAB 1 PO BID AMOXICILLIN-POT CLAVULANATE 32570281462 No Longer Active Ramila DE PAZ'Akira NASAL [...] 1 MG TABS as directed VARENICLINE TARTRATE 73493202542 No Longer Active America Rivka Hutton LEVEMIR FLEXPEN SOLN 15 units QHS INSULIN DETEMIR SOLN 14521389770 No Longer Active America Hutton CIALIS 20 MG TABS 1po daily prn TADALAFIL 18955868300 No Longer Active Americaedy Hutton VIAGRA 50 MG TABS Take 1 PO prn SILDENAFIL CITRATE 59240440451 No Longer Active Americaedy Hutton LOTRISONE 1-0.05 % CREA Apply to both arms BID CLOTRIMAZOLE-BETAMETHASONE 71924059255 No Longer Active America Hutton LEVAQUIN 500 MG TAB 1 PO QD LEVOFLOXACIN 68682109372 No Longer Active America Hutton SPIRONOLACTONE 25 MG TABS 2 po daily SPIRONOLACTONE 73061741110 Active Ramila Oates TAMIFLU 75 MG CAPS 1 po BID x 5 days OSELTAMIVIR PHOSPHATE 24280607736 No Longer Active Americaedy uHtton LANTUS FOR OPTICLIK 100 UNIT/ML SOLN 10 units QHS INSULIN GLARGINE 35298933410 No Longer Active Americaedy Hutton ATROVENT 0.06 % SOLN 2 puffs each nostril BID x 7 days IPRATROPIUM BROMIDE 10590940271 No Longer Active America Rivka Hutton AUGMENTIN 875-125 MG TABS 1 po BID for 7 days. AMOXICILLIN-POT CLAVULANATE 30635474305 No Longer Active America Chaveze Anni AZALEA 180 MG TABS 1 po daily FEXOFENADINE HCL 59182832669 No Longer Active America Hutton PYRIDIUM 200 MG TABS 1 po TID for 3 days PHENAZOPYRIDINE HCL 28529541219 No Longer Active Americaedy Chaveze Anni ZAROXOLYN 5 MG TABS 1 PO daily METOLAZONE Active Ramila Oates NOVOLOG PENFILL SOLN 4 units before meals INSULIN ASPART SOLN 71500825551 No Longer Active America Hutton Immunizations Vaccine [...] % Encounters Code Encounter Date Provider Facility CPT-98828 Ofc Vst, Est Level III 17:18:19 CDT America Rivka Hutton, DO, FACP CPT-21553 Ofc Vst, Est Level IV 15:55:02 CDT America Rivka Hutton, DO, FACP CPT-66547 Ofc Vst, Est Level IV 12:24:37 MARKET ANALYSIS DIRECTOR Americaedy Hutton DO, FACP CPT-53574 Ofc Vst, Est Level IV 17:38:12 CDT Americaedy Hutton, DO, FACP CPT-11582 Ofc Vst, Est Level III 14:37:41 CDT Americaedy Hutton, DO, FACP CPT-34637 Ofc Vst, Est Level III 12:43:48 MARKET ANALYSIS DIRECTOR America Hutton, DO, FACP CPT-91430 Ofc Vst, Est Level IV 10:57:08 MARKET ANALYSIS DIRECTOR America Hutton, DO, FACP CPT-01231 Ofc Vst, Est Level IV 16:59:13 CDT Americaedy Hutton, DO, FACP CPT-66761 Ofc Vst, Est Level IV 16:43:56 CDT Americaedy H[place]OD CPT-56057 Ofc Vst, Est Level III 16:27:39 CDT America Rivka Hutton America S Hutton, DO, FACP CPT-77700 Ofc Vst, Est Level IV 14:14:50 CDT America Rivka Champion Anni, DO, FACP CPT-05847 Ofc Vst, Est Level III 11:30:50 CDT America Rivka Champion Hutton, DO, FACP CPT-34562 Ofc Vst, Est Level III 16:29:28 CDT America Rivka Champion Hutton, DO, FACP CPT-28367 Ofc Vst, Est Level IV 16:50:49 MARKET ANALYSIS DIRECTOR America Champion Anni, DO, FACP CPT-77698 Ofc Vst, Est Level IV 11:54:05 CDT America Rivka Champion Anni, DO, FACP CPT-01209 Ofc Vst, Est Level IV 10:52:34 CDT America Rivka Champion Anni, DO, FACP CPT-26745 Ofc Vst, Est Level IV 11:30:28 MARKET ANALYSIS DIRECTOR America Champion Anni, DO, FACP CPT-93648 Ofc Vst, Est Level IV 10:48:08 MARKET ANALYSIS DIRECTOR America Champion nAni, DO, FACP CPT-87587 Ofc Vst, Est Level IV 11:36:11 CDT America Rivka Champion Anni, DO, FACP CPT-85580 Ofc Vst, Est Level IV 10:59:29 CDT America Rivka Champion Anni, DO, FACP CPT-19423 Ofc Vst, Est Level IV 11:57:28 CDT America Rivka Champion Anni, DO, FACP CPT-49558 Ofc Vst, Est Level IV 11:04:42 MARKET ANALYSIS DIRECTOR America Rivka Champion Anni, DO, FACP CPT-93975 Ofc Vst, Est Level V 11:03:29 MARKET ANALYSIS DIRECTOR Americaedy Champion Anni, DO, FACP CPT-14352 Ofc Vst, Est Level IV 10:53:30 CDT America Rivka Champion Anni, DO, FACP CPT-75198 Ofc Vst, Est Level IV 11:12:42 CDT America Rivka Champion Anni, DO, FACP CPT-53178 Ofc Vst, Est Level IV 11:25:49 CDT America Rivka Champion Anni, DO, FACP CPT-91646 Ofc Vst, Est Level IV 14:19:05 CDT America Champion Anni, DO, FACP CPT-91930 Ofc Vst, Est Level V 15:01:50 MARKET ANALYSIS DIRECTOR Americaedy Hutton [facility] CPT-26994 Ofc Vst, Est Level IV 11:18:30 MARKET ANALYSIS DIRECTOR Americaedy Champion Anni, DO, FACP CPT-78113 Ofc Vst, Est Level IV 14:33:19 CDT Americaedy Champion Anni, DO, FACP CPT-21709 Ofc Vst, Est Level IV 14:24:09 CDT Americaedy Champion Anni, DO, FACP CPT-42834 Ofc Vst, Est Level IV 16:24:25 CDT Americadey Hutton [facility] [facility] CPT-86404 Ofc Vst, Est Level V 12:06:18 CDT Americaedy Champion Anni, DO, FACP CPT-66930 Ofc Vst, Est Level IV 11:32:52 CDT Americaedy Champion Anni, DO, FACP CPT-60784 Ofc Vst, Est Level V 15:54:46 CDT America Rivka Champion Hutton, DO, FACP CPT-22336 Ofc Vst, Est Level IV 14:32:33 CDT America Rivka Champion Hutton, DO, FACP CPT-58484 Ofc Vst, Est Level IV 14:06:04 MARKET ANALYSIS DIRECTOR America Champion Hutton, DO, FACP CPT-56106 Ofc Vst, Est Level IV 10:36:45 MARKET ANALYSIS DIRECTOR America Rivka Champion Hutton, DO, FACP CPT-12201 Ofc Vst, Est Level IV 13:12:16 CDT America Rivka Champion Anni, DO, FACP CPT-51663 Ofc Vst, Est Level IV 15:20:36 CDT America Rivka Champion Anni, DO, FACP CPT-06568 Ofc Vst, Est Level III 12:05:11 CDT America Rivka Champion Anni, DO, FACP CPT-37950 Ofc Vst, Est Level III 13:05:33 CDT America Rivka Champion Anni, DO, FACP CPT-14037 Ofc Vst, Est Level IV 14:09:19 CDT Americaedy Champion Anni, DO, FACP CPT-87668 Ofc Vst, Est Level IV 14:00:30 MARKET ANALYSIS DIRECTOR America Rivka Champion Anni, DO, FACP CPT-16564 Ofc Vst, Est Level IV 17:29:08 MARKET ANALYSIS DIRECTOR America Champion Anni, DO, FACP CPT-20158 Ofc Vst, Est Level III 13:45:01 MARKET ANALYSIS DIRECTOR America Champion Anni, DO, FACP CPT-95294 Ofc Vst, Est Level IV 15:24:26 MARKET ANALYSIS DIRECTOR America Rivka Champion Anni, DO, FACP CPT-47618 Ofc Vst, Est Level IV 15:54:58 MARKET ANALYSIS DIRECTOR America Champion Anni DO, FACP CPT-48647 Ofc Vst, Est Level IV 10:17:27 MARKET ANALYSIS DIRECTOR America Champion Anni DO, FACP CPT-41317 Ofc Vst, Est Level IV 11:40:37 CDT America hCampion Anni DO, FACP CPT-24479 Ofc Vst, New Level IV 17:22:52 CDT America Champion Anni, DO, FACP Procedures Code Procedure Name Date Entry Date Standard Description CPT-39135 Preventive, Est, (40-64) 13:27:46 CDT CPT-83768 Preventive, Est, (40-64) 21:40:47 CDT CPT-70522 Preventive, Est, (40-64) 20:22:44 MARKET ANALYSIS DIRECTOR CPT-21407 Injection 11:25:49 CDT CPT-77920 Injection 14:19:05 CDT CPT-85098 Injection 14:33:19 CDT CPT-84265 Injection 14:24:09 CDT CPT-53092 Injection 16:24:25 CDT CPT-38183 Injection 14:32:33 CDT CPT-35612 Injection 14:06:04 MARKET ANALYSIS DIRECTOR CPT-14231 Biopsy, skin/subcut/mucous membrane; sngl lsn 14:21:51 CDT CPT-G0008 Administration Influenza Vaccine 11:40:37 CDT CPT-98186 Influenza Vaccine 11:40:37 CDT
--- OUTSIDE RECORDS SUMMARY | 2017-04-21 14:28 | XMS REPORT | Clinical Summary ---
Author Author User, [employer] America Hutton DO, ERICAP Address Unknown Phone Allergies, Adverse Reactions, Alerts [...] Apply to affected areas BID GENTAMICIN SULFATE 50790784783 Active Ramila Oates NOVOLOG 100 U/ML SOLN 20 units before meals INSULIN ASPART 01914321052 Active Ameirca Hutton ATROVENT 0.06 % SOLN 2 puffs each nostril TID prn runny nose 2014 IPRATROPIUM BROMIDE 30608867855 No Longer Active Ramila Oates NYSTATIN 094031 U/ML SUSP 5cc PO QID for 7 days NYSTATIN 86223866140 No Longer Active America Hutton TAMIFLU 75 MG CAPS 1 po BID OSELTAMIVIR PHOSPHATE 49408963934 No Longer Active America Hutton NYSTATIN 714431 UNIT/GM CREA apply to affected areas BID for 7 days NYSTATIN 40382251844 No Longer Active Ramila Oates SPIRIVA HANDIHALER 18 MCG CAPS ONE INHALATION DAILY TIOTROPIUM BROMIDE MONOHYDRATE 51867843466 Active America Hutton ATROVENT HFA 17 MCG/ACT AERS 2 puffs BID IPRATROPIUM BROMIDE HFA 37852510828 No Longer Active America Hutton PERFOROMIST 20 MCG/2ML NEBU 1 vial Neb treatment BID FORMOTEROL FUMARATE 23543760319 No Longer Active America Hutton VENTOLIN HFA 108 (90 BASE) MCG/ACT AERS 2 puffs Q 4 hours prn ALBUTEROL SULFATE 21926276991 No Longer Active America Hutton HYDROXYZINE HCL 25 MG TABS 1 PO Q 6HRS PRN HYDROXYZINE HCL 44575377661 Active Ramila Oates SINGULAIR 10 MG TABS 1 PO AT Q HS MONTELUKAST SODIUM 72089816356 Active Ramila Oates LANTUS SOLOSTAR 100 UNIT/ML SOLN 20 units at night INSULIN GLARGINE 63534396751 Active America Hutton AMLACTIN 12 % LOTN Apply a small amount to affected areas BID AMMONIUM LACTATE 97419641140 No Longer Active America Hutton ADVAIR DISKUS 500-50 MCG/DOSE AEPB 1 puff BID FLUTICASONE- SALMETEROL 67275034693 Active Ramila Oates POTASSIUM CHLORIDE ER 20 MEQ CR-TABS 1-2 PO BID POTASSIUM CHLORIDE 13174259531 Active Ramila Oates NOVOFINE 30G X 8 MM MISC DIRECTED DX: 250.00 INSULIN PEN NEEDLE 62306305381 Active Ramila Oates PREDNISONE 10 MG TAB 2 PO daily for for 3 days then 1 PO daily for 5 days. PREDNISONE 53918678134 No Longer Active America DE PAZ'Akira NASAL SPRAY (DEXAMETHASONE, GENTAMICIN, SALINE) 2 puffs each nostril TID for [address] STRAUSS NASAL SPRAY ( DEXAMETHASONE, GENTAMICIN, SALINE) No Longer Active America Hutton CEFDINIR 300 MG CAPS 1 PO BID for 6 weeks CEFDINIR 05264111591 No Longer Active America Hutton PREDNISONE 20 MG TAB 2 pills at once for 2 days then 1 pill daily for 5 days PREDNISONE 70847211182 No Longer Active America Hutton DOXYCYCLINE HYCLATE 100 MG CAP 1 po BID DOXYCYCLINE HYCLATE 43828447261 No Longer Active America Hutton NYSTATIN 278762 U/ML SUSP 5cc PO QID for 7 days NYSTATIN 45113912196 No Longer Active America Rivka Hutton NYSTATIN 793940 U/ML SUSP 5cc PO QID for 7 days NYSTATIN 91588877374 No Longer Active America Rivka Hutton ASPIRIN 325 MG TABS 1 PO daily ASPIRIN 31280444777 No Longer Active America Rivka Hutton COZAAR 100 MG TAB 1 PO Daily LOSARTAN POTASSIUM 95355532745 Active Ramila Oates PREDNISONE 20 MG TAB 2 pills at once for 2 days then 1 pill daily for 5 days PREDNISONE 41596059740 No Longer Active America Rivka Hutton DOXYCYCLINE HYCLATE 100 MG CAP 1 po BID DOXYCYCLINE HYCLATE 17009505208 No Longer Active America Rivka Hutton HYZAAR 100-12.5 MG TABS 1 PO daily LOSARTAN POTASSIUM-HCTZ 18168479969 No Longer Active America Rivka Hutton MOBIC 15 MG TABS 1 PO daily for arthritis MELOXICAM 82612618480 Active America Rivka Hutton PREDNISONE 20 MG TAB 2 pills at once for 2 days then 1 pill daily for 5 days PREDNISONE 27329761702 No Longer Active Americaedy Hutton LEVAQUIN 750 MG TABS 1 PO daily LEVOFLOXACIN 50286561396 No Longer Active America Rivka Hutton ANDROGEL PUMP 20.25 MG/ACT (1.62%) GEL rub in two pumps into skin daily TESTOSTERONE 42025332783 No Longer Active America Rivka Hutton ULTRAM 50 MG TAB 1 PO q 6 hrs prn TRAMADOL HCL 89006465342 No Longer Active America Rivka Hutton VITAMIN D 1000 UNIT TABS 1 PO Daily CHOLECALCIFEROL 97370759871 No Longer Active America Rivka Hutton ETODOLAC 400 MG TABS 1 PO BID ETODOLAC 32686755296 No Longer Active Americaedy Hutton LORTAB 7.5 7.5-500 MG TABS 1-2 q 4-6 hrs. prn HYDROCODONE- ACETAMINOPHEN 95042173754 No Longer Active America Rivka Hutton PLAVIX 75 MG TABS 1 po daily CLOPIDOGREL BISULFATE 31118248353 No Longer Active America Rivka Hutton ATARAX 25 MG TAB 1 PO Q6 hours prn HYDROXYZINE HCL Active Rosario Moyer PREDNISONE 20 MG TAB 2 pills at once for 2 days then 1 pill daily for 5 days PREDNISONE 39672867099 No Longer Active Americaedy Hutton ONETOUCH ULTRA BLUE STRP TEST BS QID DX: DIABETES GLUCOSE BLOOD 27778528859 Active Ramila Oates ATARAX 25 MG TAB 1 PO Q6hrs prn HYDROXYZINE HCL No Longer Active Americaedy Hutton PREDNISONE 20 MG TAB 2 pills at once for 2 days then 1 pill daily for 2 days PREDNISONE 29640295384 No Longer Active Americaedy Hutton PEN NEEDLES 5/16" 31G X 8 MM MISC as directed INSULIN PEN NEEDLE 09005481316 No Longer Active Americaedy Hutton NASONEX 50 MCG/ACT SUSP 2 Puffs ea. nostril daily MOMETASONE FUROATE 69504179784 No Longer Active Americaedy Hutton CLARINEX 5 MG TABS 1 po daily DESLORATADINE 39313501506 No Longer Active Americaedy Hutton MIRALAX POWD 1 scoop in 4oz of water PO daily POLYETHYLENE GLYCOL 3350 33126211326 No Longer Active Americaedy Hutton 10% LCD IN THC .1% Apply to arms at bedtime 10% LCD IN THC .1% No Longer Active America Rivka Hutton TRIAMCINOLONE ACETONIDE 0.025 % OINT Apply to rash on arms daily as needed. TRIAMCINOLONE ACETONIDE 33419603950 No Longer Active Americaedy Hutton ONE TOUCH ULTRA TEST STRP Test BS TID DX: Diabetes GLUCOSE BLOOD 66106732438 No Longer Active Americaedy Hutton BD U/F SHORT PEN NEEDLE 31G X 8 MM MISC as directed with insulin DX: Diabetes INSULIN PEN NEEDLE 10516212183 No Longer Active Americaedy Hutton CIALIS 20 MG TABS 1 PO as directed TADALAFIL 16381898986 No Longer Active Americaedy Hutton ONE TOUCH ULTRA MINI W/DEVICE KIT BLOOD GLUCOSE MONITORING SUPPL 94838560255 No Longer Active Americaedy Hutton PEN NEEDLES /16" 31G X 8 MM MISC as directed INSULIN PEN NEEDLE 15365751748 No Longer Active America Hutton ATARAX 25 MG TAB 1 PO Q6hrs prn itching HYDROXYZINE HCL No Longer Active Americaedy Hutton PREDNISONE 20 MG TAB 2 pills at once for 2 days then 1 pill daily for 2 days PREDNISONE 08017787914 No Longer Active America Hutton METFORMIN HCL 500 MG TABS 1 po daily METFORMIN HCL 88802873871 No Longer Active Americaedy Hutton CLOTRIMAZOLE 10 MG TROC Dissolve 1 tab in mouth QID for 14 days CLOTRIMAZOLE 35628571845 No Longer Active Ramila Oates PREDNISONE 20 MG TAB 2 pills at once for 3 days then 1 pill daily for 3 days PREDNISONE 99506943302 No Longer Active Americaedy Hutton LEVAQUIN 750 MG TABS 1 PO daily for 7 days LEVOFLOXACIN 07521677129 No Longer Active America Rivka Hutton MYCELEX 10 MG TROC Dissovle in mouth QID for 14 days CLOTRIMAZOLE 08400356641 No Longer Active Ramírez Gtz LEVITRA 20 MG TABS 1 po daily prn VARDENAFIL HCL 95709823696 No Longer Active Americaedy Hutton PROAIR HFA AERS Inhale 1-2 puffs 4x daily prn ALBUTEROL SULFATE AERS 59546179072 No Longer Active America Hutton PREDNISONE 20 MG TAB 3 pills daily at once for 2 days, 2 pills daily at once for 2 days, 1 once daily for 2 days PREDNISONE 40522142098 No Longer Active America Hutton LEVAQUIN 750 MG TABS 1 PO daily LEVOFLOXACIN 49323483503 No Longer Active America Hutton HUMALOG KWIKPEN 100 UNIT/ML SOLN 40 units before meals INSULIN LISPRO (HUMAN) 28949532931 No Longer Active America Hutton MICRONASE 2.5 MG TAB 1 PO BID GLYBURIDE No Longer Active Ramila Oates SYNTHROID 0.025 MG TAB 1 PO Daily on empty stomach LEVOTHYROXINE SODIUM 32654518819 Active Ramila Oates METFORMIN HCL 1000 MG TABS 1 PO BID METFORMIN HCL 08421070918 No Longer Active America Hutton ATROVENT 0.06 % SOLN 2 puffs each nostril TID prn runny nose 2010 IPRATROPIUM BROMIDE 92729838858 No Longer Active Americaedy Hutton VICTOZA 18 MG/3ML SOLN 0.6mg injection once daily for one month, then 1.2mg injection once daily LIRAGLUTIDE 90507104383 No Longer Active Americaedy Hutton FLONASE 50 MCG/DOSE INHALANT 2 puffs each nostril daily FLONASE 50 MCG/ DOSE INHALANT No Longer Active America Rivka Hutton ZYRTEC 10 MG TAB 1 PO QD CETIRIZINE HCL No Longer Active America Rivka Hutton FLUCONAZOLE 200 MG TABS 1 PO daily for 5 days FLUCONAZOLE 46979484711 No Longer Active America Rivka Hutton ADVAIR DISKUS 500-50 MCG/DOSE MISC 1 puff BID FLUTICASONE-SALMETEROL 46000528370 No Longer Active America Rivka Hutton LEVAQUIN 500 MG TAB 1 PO QD LEVOFLOXACIN 67802251391 No Longer Active America Rivka Hutton ASTEPRO 137 MCG/SPRAY SOLN 2 puffs each nostril QHS AZELASTINE HCL 94981809641 No Longer Active America Rivka Hutton SPIRIVA HANDIHALER 18 MCG CAPS 1 inhalation daily TIOTROPIUM BROMIDE MONOHYDRATE 73611665227 No Longer Active America Rivka Hutton AZALEA-D 24 HOUR 180-240 MG [id number] 1 PO daily FEXOFENADINE-PSEUDOEPHEDRINE 94879736519 No Longer Active America Rivka Hutton BACTRIM DS 800-160 MG TAB 1 PO BID TRIMETHOPRIM- SULFAMETHOXAZOLE 23577291769 No Longer Active America Rivka Hutton LEVAQUIN 500 MG TAB 1 PO QD LEVOFLOXACIN 53661304216 No Longer Active America Rivka Hutton PREDNISONE 20 MG TAB 2 pills at once for 2 days then 1 pill daily for 2 days PREDNISONE 08227149363 No Longer Active America Rivka Hutton ROBITUSSIN [...] 1 po daily for 7 days LEVOFLOXACIN 47177672407 No Longer Active America Hutton BACTRIM DS 800-160 MG TAB 1 PO BID TRIMETHOPRIM- SULFAMETHOXAZOLE 04265998111 No Longer Active America Hutton HUMALOG PEN 100 UNIT/ML SOLN 25 units twice daily INSULIN LISPRO (HUMAN) 33476598641 No Longer Active America Hutton LANTUS FOR OPTICLIK 100 UNIT/ML SOLN 20 units injection every night 09/09 INSULIN GLARGINE 24840221464 No Longer Active America Hutton ROBITUSSIN A-C 10-100 MG/5ML SYRUP 1 teaspoon PO Q 4-6 hr prn ROBITUSSIN A-C 10-100 MG/5ML SYRUP No Longer Active Ramila STRAUSS NASAL SPRAY (DEXAMETHASONE, GENTAMICIN, SALINE) 2 puffs each nostril TID for [address] STRAUSS NASAL SPRAY ( DEXAMETHASONE, GENTAMICIN, SALINE) No Longer Active America Hutton AUGMENTIN 875-125 MG TAB 1 PO BID AMOXICILLIN-POT CLAVULANATE 63115506096 No Longer Active America Hutton ROBITUSSIN A-C 10-100 MG/5ML SYRUP 1 teaspoon PO Q 4-6 hr prn ROBITUSSIN A-C 10-100 MG/5ML SYRUP No Longer Active America STRAUSS NASAL SPRAY (DEXAMETHASONE, GENTAMICIN, SALINE) 2 puffs each nostril TID for [address] STRAUSS NASAL SPRAY ( DEXAMETHASONE, GENTAMICIN, SALINE) No Longer Active Barron Cazenovia LEVAQUIN 500 MG TAB 1 PO QD LEVOFLOXACIN 80940265080 No Longer Active Barron Joi PREDNISONE 20 MG TAB 2 pills at once for 2 days then 1 pill daily for 2 days PREDNISONE 61079954890 No Longer Active America DE PAZ'Akira NASAL SPRAY (DEXAMETHASONE, GENTAMICIN, SALINE) 2 puffs each nostril TID for [address] STRAUSS NASAL SPRAY ( DEXAMETHASONE, GENTAMICIN, SALINE) No Longer Active America Hutton AMOXICILLIN 500 MG CAP 1 PO TID AMOXICILLIN 94497643736 No Longer Active America Hutton LISINOPRIL 10 MG TABS 1 PO Daily LISINOPRIL 01281022153 No Longer Active Ramila Oates FLOMAX 0.4 MG CP24 1 PO QHS for prostate TAMSULOSIN HCL 38895768892 No Longer Active America Hutton MAGNESIUM OXIDE 400 MG TABS 1 PO daily MAGNESIUM OXIDE 00570964740 Active Suyapa Christie LASIX 20 MG TAB Take 2 PO BID FUROSEMIDE 43667850943 Active Ramila Loeratis KEFLEX 500 MG CAP 1 PO TID for 7 days CEPHALEXIN 90214003322 No Longer Active America Hutton ATROVENT 0.06 % SOLN 2 puffs each nostril TID prn runny nose 2008 IPRATROPIUM BROMIDE 29956995409 No Longer Active America Hutton PREDNISONE 20 MG TAB 3 pills daily at once for 3 days, 2 pills daily at once for 3 days, 1 once daily for 3 days PREDNISONE 10475589054 No Longer Active America Hutton LEVAQUIN 500 MG TAB 1 PO QD LEVOFLOXACIN 00746183153 No Longer Active America Hutton CRESTOR 5 MG TABS 1 PO daily ROSUVASTATIN CALCIUM 44188816284 Active America Hutton PREDNISONE 20 MG TAB 2 pills at once for 2 days then 1 pill daily for 2 days PREDNISONE 31037060211 No Longer Active America DE PAZ'Akira NASAL SPRAY (DEXAMETHASONE, GENTAMICIN, SALINE) 2 puffs each nostril TID for [address] STRAUSS NASAL SPRAY ( DEXAMETHASONE, GENTAMICIN, SALINE) No Longer Active America Hutton AUGMENTIN 875-125 MG TAB 1 PO BID AMOXICILLIN-POT CLAVULANATE 81900849820 No Longer Active America Hutton BIAXIN 500 MG TAB 1 PO BID for 7 days CLARITHROMYCIN 80957837818 No Longer Active Da Tse ALBUTEROL SULFATE (2.5 MG/3ML) 0.083% NEBU 1 treatment QID ALBUTEROL SULFATE 65634153107 Active America Hutton ROBITUSSIN A-C 10-100 MG/5ML SYRUP 1 teaspoon PO Q 4-6 hr prn ROBITUSSIN A-C 10-100 MG/5ML SYRUP 06724261450 No Longer Active Y Y DOXYCYCLINE HYCLATE 100 MG CAP 1 po BID. Take with food to avoid nausea. 2007 DOXYCYCLINE HYCLATE 19904903797 No Longer Active Y Y BIAXIN 500 MG TAB 1 PO BID for lung infection CLARITHROMYCIN 64538005219 No Longer Active America Hutton MEVACOR 40 MG TABS 1 PO daily LOVASTATIN 58039996386 No Longer Active America Hutton BYETTA 10 MCG PEN SOLN i injection am and at supper(On hold 09/04/07 while re- starting Humalog) EXENATIDE SOLN 42786589411 No Longer Active America Hutton LEVITRA 10 MG TABS 1 PO as directed VARDENAFIL HCL 18406647008 No Longer Active Tyler Bolton AUGMENTIN 500-125 MG TAB 1 PO BID AMOXICILLIN-POT CLAVULANATE 70675495314 No Longer Active Ramila DE PAZ'S NASAL [...] 1 MG TABS as directed VARENICLINE TARTRATE 81214436472 No Longer Active Americaedy Hutton LEVEMIR FLEXPEN SOLN 15 units QHS INSULIN DETEMIR SOLN 69676564084 No Longer Active Americaedy Hutton CIALIS 20 MG TABS 1po daily prn TADALAFIL 01776117876 No Longer Active Americaedy Hutton VIAGRA 50 MG TABS Take 1 PO prn SILDENAFIL CITRATE 87105040425 No Longer Active Americaedy Hutton LOTRISONE 1-0.05 % CREA Apply to both arms BID CLOTRIMAZOLE-BETAMETHASONE 27971902947 No Longer Active Americaedy Hutton LEVAQUIN 500 MG TAB 1 PO QD LEVOFLOXACIN 82520879965 No Longer Active Americaedy Hutton SPIRONOLACTONE 25 MG TABS 2 po daily SPIRONOLACTONE 26052228633 Active Ramila Oates TAMIFLU 75 MG CAPS 1 po BID x 5 days OSELTAMIVIR PHOSPHATE 50492633492 No Longer Active Americaedy Hutton LANTUS FOR OPTICLIK 100 UNIT/ML SOLN 10 units QHS INSULIN GLARGINE 58736075331 No Longer Active America Rivka Hutton ATROVENT 0.06 % SOLN 2 puffs each nostril BID x 7 days IPRATROPIUM BROMIDE 26387678340 No Longer Active America Hansonanne Anni AUGMENTIN 875-125 MG TABS 1 po BID for 7 days. AMOXICILLIN-POT CLAVULANATE 59744326621 No Longer Active America Chaveze Anni AZALEA 180 MG TABS 1 po daily FEXOFENADINE HCL 37612289453 No Longer Active America Rivka Anni PYRIDIUM 200 MG TABS 1 po TID for 3 days PHENAZOPYRIDINE HCL 88036087709 No Longer Active America Chaveze Anni ZAROXOLYN 5 MG TABS 1 PO daily METOLAZONE Active Ramila Oates NOVOLOG PENFILL SOLN 4 units before meals INSULIN ASPART SOLN 23544274736 No Longer Active America Hutton Immunizations Vaccine [...] Value Unit Range Description Clinical Lists Update: CBC,[facility] - Chemistry albumin, serum 3.0 g/dL Estimated [...] phosphatase, serum 71 U/L Clinical Lists Update: CBC,[facility] - Hematology hemoglobin, blood 14.2 g/dL hematocrit, blood 45 % platelet count 297 10*3/mm3 erythrocyte (RBC) count 4.76 10*6/mm3 leukocyte count, blood 15.0 10*3/mm3 mean corpuscular volume, RBC 95 fL red blood cell distribution width 13.7 % Clinical Lists Update: CBC,[facility] RE: [facility] - Chemistry potassium, [...] % Encounters Code Encounter Date Provider Facility CPT-79954 Ofc Vst, Est Level III 19:33:22 CDT America Arellanoner, DO, FACP CPT-90673 Ofc Vst, Est Level III 17:18:19 CDT America Arellanoner, DO, FACP CPT-75778 Ofc Vst, Est Level IV 15:55:02 CDT America Hutton, DO, FACP CPT-55654 Ofc Vst, Est Level IV 12:24:37 CYLINDER PRESS OPERATOR APPRENTICE America Hutton, DO, FACP CPT-73262 Ofc Vst, Est Level IV 17:38:12 CDT America Hutton, DO, FACP CPT-48903 Ofc Vst, Est Level III 14:37:41 CDT America Hutton, DO, FACP CPT-92706 Ofc Vst, Est Level III 12:43:48 CYLINDER PRESS OPERATOR APPRENTICE America Champion Hutton, DO, FACP CPT-87323 Ofc Vst, Est Level IV 10:57:08 CYLINDER PRESS OPERATOR APPRENTICE America Champion Hutton, DO, FACP CPT-55648 Ofc Vst, Est Level IV 16:59:13 CDT America Rivka Champion Anni, DO, FACP CPT-98506 Ofc Vst, Est Level IV 16:43:56 CDT [facility] C[facility] Ofc Vst, Est Level III 16:27:39 CDT America Rivka Champion Anni, DO, FACP CPT-10959 Ofc Vst, Est Level IV 14:14:50 CDT Americaedy Champion Anni, DO, FACP CPT-99478 Ofc Vst, Est Level III 11:30:50 CDT Americaedy Champion Anni, DO, FACP CPT-94224 Ofc Vst, Est Level III 16:29:28 CDT Americaedy Champion Hutton, DO, FACP CPT-27094 Ofc Vst, Est Level IV 16:50:49 CYLINDER PRESS OPERATOR APPRENTICE America Champion Anni, DO, FACP CPT-76058 Ofc Vst, Est Level IV 11:54:05 CDT America Rivka Champion Hutton, DO, FACP CPT-94596 Ofc Vst, Est Level IV 10:52:34 CDT America Rivka Champion Hutton, DO, FACP CPT-71974 Ofc Vst, Est Level IV 11:30:28 CYLINDER PRESS OPERATOR APPRENTICE America Rivka Champion Hutton, DO, FACP CPT-72967 Ofc Vst, Est Level IV 10:48:08 CYLINDER PRESS OPERATOR APPRENTICE America Rivka Champion Hutton, DO, FACP CPT-39180 Ofc Vst, Est Level IV 11:36:11 CDT Americaedy Champion Hutton, DO, FACP CPT-50115 Ofc Vst, Est Level IV 10:59:29 CDT America Champion Hutton, DO, FACP CPT-89671 Ofc Vst, Est Level IV 11:57:28 CDT America Rivka Champino Hutton, DO, FACP CPT-01774 Ofc Vst, Est Level IV 11:04:42 CYLINDER PRESS OPERATOR APPRENTICE America Champion Anni, DO, FACP CPT-94869 Ofc Vst, Est Level V 11:03:29 CYLINDER PRESS OPERATOR APPRENTICE America Champion Hutton, DO, FACP CPT-74310 Ofc Vst, Est Level IV 10:53:30 CDT Americaedy Champion Anni, DO, FACP CPT-05392 Ofc Vst, Est Level IV 11:12:42 CDT Americaedy Champion Anni, DO, FACP CPT-66062 Ofc Vst, Est Level IV 11:25:49 CDT America Champion Anni, DO, FACP CPT-65957 Ofc Vst, Est Level IV 14:19:05 CDT Americaedy Champion Anni, DO, FACP CPT-52809 Ofc Vst, Est Level V 15:01:50 CYLINDER PRESS OPERATOR APPRENTICE America Hutton [facility] CPT-39402 Ofc Vst, Est Level IV 11:18:30 CYLINDER PRESS OPERATOR APPRENTICE America Champion Anni, DO, FACP CPT-44967 Ofc Vst, Est Level IV 14:33:19 CDT America Champion Anni, DO, FACP CPT-15473 Ofc Vst, Est Level IV 14:24:09 CDT Americaedy Champion Anni, DO, FACP CPT-74432 Ofc Vst, Est Level IV 16:24:25 CDT Americaedy [facility] CPT-41602 Ofc Vst, Est Level V 12:06:18 CDT Americadey Champion Anni, DO, FACP CPT-57795 Ofc Vst, Est Level IV 11:32:52 CDT Americaedy Champion Anni, DO, FACP CPT-82618 Ofc Vst, Est Level V 15:54:46 CDT America Rivka Champion Anni, DO, FACP CPT-30109 Ofc Vst, Est Level IV 14:32:33 CDT America Champion Anni, DO, FACP CPT-55528 Ofc Vst, Est Level IV 14:06:04 CYLINDER PRESS OPERATOR APPRENTICE America Champion Anni, DO, FACP CPT-73474 Ofc Vst, Est Level IV 10:36:45 CYLINDER PRESS OPERATOR APPRENTICE America Champion Hutton, DO, FACP CPT-89516 Ofc Vst, Est Level IV 13:12:16 CDT America Champion Anni, DO, FACP CPT-72401 Ofc Vst, Est Level IV 15:20:36 CDT Americaedy Champion Anni, DO, FACP CPT-92160 Ofc Vst, Est Level III 12:05:11 CDT America Rivka Champion Hutton, DO, FACP CPT-98603 Ofc Vst, Est Level III 13:05:33 CDT Americaedy Champion Anni, DO, FACP CPT-20905 Ofc Vst, Est Level IV 14:09:19 CDT Americaedy Champion Hutton, DO, FACP CPT-56639 Ofc Vst, Est Level IV 14:00:30 CYLINDER PRESS OPERATOR APPRENTICE America Champion Hutton, DO, FACP CPT-53734 Ofc Vst, Est Level IV 17:29:08 CYLINDER PRESS OPERATOR APPRENTICE America Champion Hutton, DO, FACP CPT-33478 Ofc Vst, Est Level III 13:45:01 CYLINDER PRESS OPERATOR APPRENTICE America Champion Hutton, DO, FACP CPT-20076 Ofc Vst, Est Level IV 15:24:26 CYLINDER PRESS OPERATOR APPRENTICE America Champion Hutton, DO, FACP CPT-18883 Ofc Vst, Est Level IV 15:54:58 CYLINDER PRESS OPERATOR APPRENTICE America Champion Hutton, DO, FACP CPT-37220 Ofc Vst, Est Level IV 10:17:27 CYLINDER PRESS OPERATOR APPRENTICE America Champion Hutton, DO, FACP CPT-43673 Ofc Vst, Est Level IV 11:40:37 CDT America Champion Hutton, DO, FACP CPT-13722 Ofc Vst, New Level IV 17:22:52 CDT America Champion Hutton, DO, FACP Procedures Code Procedure Name Date Entry Date Standard Description CPT-04685 Preventive, Est, (40-64) 13:27:46 CDT CPT-76780 Preventive, Est, (40-64) 21:40:47 CDT CPT-69354 Preventive, Est, (40-64) 20:22:44 CYLINDER PRESS OPERATOR APPRENTICE CPT-04449 Injection 11:25:49 CDT CPT-10927 Injection 14:19:05 CDT CPT-61702 Injection 14:33:19 CDT CPT-52894 Injection 14:24:09 CDT CPT-48346 Injection 16:24:25 CDT CPT-96929 Injection 14:32:33 CDT CPT-45343 Injection 14:06:04 CYLINDER PRESS OPERATOR APPRENTICE CPT-32078 Biopsy, skin/subcut/mucous membrane; sngl lsn 14:21:51 CDT CPT-G0008 Administration Influenza Vaccine 11:40:37 CDT CPT-03854 Influenza Vaccine 11:40:37 CDT
--- OUTSIDE RECORDS SUMMARY | 2017-04-21 14:30 | XMS REPORT | Clinical Summary ---
Author Author User, [employer] America Hutton DO, FACP Address Unknown [...] Coronary atherosclerosis of unspecified type of vessel, ramona or graft CHRONIC AIRWAY OBSTRUCTION (COPD) 496 [...] Generic Name NDC Status Provider Patient Instruction NOVOLOG 100 U/ML SOLN 20 units before meals INSULIN ASPART 64803993312 Active America Hutton ATROVENT 0.06 % SOLN 2 puffs each nostril TID prn runny nose 2014 IPRATROPIUM BROMIDE 50837496813 No Longer Active Ramila Oates NYSTATIN 017675 U/ML SUSP 5cc PO QID for 7 days NYSTATIN 37604054007 No Longer Active America Hutton TAMIFLU 75 MG CAPS 1 po BID OSELTAMIVIR PHOSPHATE 84274039341 No Longer Active America Hutton NYSTATIN 909722 UNIT/GM CREA apply to affected areas BID for 7 days NYSTATIN 69372815377 No Longer Active Ramila Oates SPIRIVA HANDIHALER 18 MCG CAPS ONE INHALATION DAILY TIOTROPIUM BROMIDE MONOHYDRATE 89209418324 Active America Hutton ATROVENT HFA 17 MCG/ACT AERS 2 puffs BID IPRATROPIUM BROMIDE HFA 65786279059 No Longer Active America Hutton PERFOROMIST 20 MCG/2ML NEBU 1 vial Neb treatment BID FORMOTEROL FUMARATE 71385131027 No Longer Active America Hutton VENTOLIN HFA 108 (90 BASE) MCG/ACT AERS 2 puffs Q 4 hours prn ALBUTEROL SULFATE 08685322917 No Longer Active America Hutton HYDROXYZINE HCL 25 MG TABS 1 PO Q 6HRS PRN HYDROXYZINE HCL 71697801324 Active Ramila Oates SINGULAIR 10 MG TABS 1 PO AT Q HS MONTELUKAST SODIUM 69446551092 Active America Hutton LANTUS SOLOSTAR 100 UNIT/ML SOLN 20 units at night INSULIN GLARGINE 76248640783 Active America Hutton AMLACTIN 12 % LOTN Apply a small amount to affected areas BID AMMONIUM LACTATE 74343169803 No Longer Active America Hutton ADVAIR DISKUS 500-50 MCG/DOSE AEPB 1 puff BID FLUTICASONE- SALMETEROL 56760134562 Active Ramila Oates POTASSIUM CHLORIDE ER 20 MEQ CR-TABS 1-2 PO BID POTASSIUM CHLORIDE 78959819108 Active Ramila Oates NOVOFINE 30G X 8 MM MISC DIRECTED DX: 250.00 INSULIN PEN NEEDLE 22680111959 Active Ramila Oates PREDNISONE 10 MG TAB 2 PO daily for for 3 days then 1 PO daily for 5 days. PREDNISONE 67864118314 No Longer Active America DE PAZ'Akira NASAL SPRAY (DEXAMETHASONE, GENTAMICIN, SALINE) 2 puffs each nostril TID for [address] DE PAZ'Akira NASAL SPRAY ( DEXAMETHASONE, GENTAMICIN, SALINE) No Longer Active America Hutton CEFDINIR 300 MG CAPS 1 PO BID for 6 weeks CEFDINIR 48978903079 No Longer Active America Hutton PREDNISONE 20 MG TAB 2 pills at once for 2 days then 1 pill daily for 5 days PREDNISONE 75816261314 No Longer Active America Hutton DOXYCYCLINE HYCLATE 100 MG CAP 1 po BID DOXYCYCLINE HYCLATE 08045477870 No Longer Active America Hutton NYSTATIN 206833 U/ML SUSP 5cc PO QID for 7 days NYSTATIN 40083737846 No Longer Active America Rivka Hutton NYSTATIN 437705 U/ML SUSP 5cc PO QID for 7 days NYSTATIN 98312845851 No Longer Active America Rivka Hutton ASPIRIN 325 MG TABS 1 PO daily ASPIRIN 09127858492 No Longer Active America Rivka Hutton COZAAR 100 MG TAB 1 PO Daily LOSARTAN POTASSIUM 87261431557 Active Ramila Oates PREDNISONE 20 MG TAB 2 pills at once for 2 days then 1 pill daily for 5 days PREDNISONE 73488030637 No Longer Active America Rivka Hutton DOXYCYCLINE HYCLATE 100 MG CAP 1 po BID DOXYCYCLINE HYCLATE 18360188113 No Longer Active America Rivka Hutton HYZAAR 100-12.5 MG TABS 1 PO daily LOSARTAN POTASSIUM-HCTZ 69896784629 No Longer Active America Rivka Hutton MOBIC 15 MG TABS 1 PO daily for arthritis MELOXICAM 66040842013 Active America Rivka Hutton PREDNISONE 20 MG TAB 2 pills at once for 2 days then 1 pill daily for 5 days PREDNISONE 05125171745 No Longer Active Americaedy Hutton LEVAQUIN 750 MG TABS 1 PO daily LEVOFLOXACIN 88679093263 No Longer Active Americaedy Hutton ANDROGEL PUMP 20.25 MG/ACT (1.62%) GEL rub in two pumps into skin daily TESTOSTERONE 08536113445 No Longer Active America Rivka Hutton ULTRAM 50 MG TAB 1 PO q 6 hrs prn TRAMADOL HCL 99787091715 No Longer Active America Rivka Hutton VITAMIN D 1000 UNIT TABS 1 PO Daily CHOLECALCIFEROL 87685301702 No Longer Active America Rivka Hutton ETODOLAC 400 MG TABS 1 PO BID ETODOLAC 11466461482 No Longer Active America Rivka Hutton LORTAB 7.5 7.5-500 MG TABS 1-2 q 4-6 hrs. prn HYDROCODONE- ACETAMINOPHEN 10279381458 No Longer Active Americaedy Hutton PLAVIX 75 MG TABS 1 po daily CLOPIDOGREL BISULFATE 33285953904 No Longer Active Americaedy Hutton ATARAX 25 MG TAB 1 PO Q6 hours prn HYDROXYZINE HCL Active Rosario Moyer PREDNISONE 20 MG TAB 2 pills at once for 2 days then 1 pill daily for 5 days PREDNISONE 35768263258 No Longer Active Americaedy Hutton ONETOUCH ULTRA BLUE STRP TEST BS QID DX: DIABETES GLUCOSE BLOOD 10188224892 Active Ramila Oates ATARAX 25 MG TAB 1 PO Q6hrs prn HYDROXYZINE HCL No Longer Active Americaedy Hutton PREDNISONE 20 MG TAB 2 pills at once for 2 days then 1 pill daily for 2 days PREDNISONE 09907154372 No Longer Active Americaedy Hutton PEN NEEDLES /16" 31G X 8 MM MISC as directed INSULIN PEN NEEDLE 33615490305 No Longer Active Americaedy Hutton NASONEX 50 MCG/ACT SUSP 2 Puffs ea. nostril daily MOMETASONE FUROATE 20398486203 No Longer Active Americaedy Hutton CLARINEX 5 MG TABS 1 po daily DESLORATADINE 30388431040 No Longer Active Americaedy Hutton MIRALAX POWD 1 scoop in 4oz of water PO daily POLYETHYLENE GLYCOL 3350 21060384562 No Longer Active Americaedy Hutton 10% LCD IN THC .1% Apply to arms at bedtime 10% LCD IN THC .1% No Longer Active America Rivka Hutton TRIAMCINOLONE ACETONIDE 0.025 % OINT Apply to rash on arms daily as needed. TRIAMCINOLONE ACETONIDE 41478909320 No Longer Active America Hutton ONE TOUCH ULTRA TEST STRP Test BS TID DX: Diabetes GLUCOSE BLOOD 80015641991 No Longer Active America Hutton BD U/F SHORT PEN NEEDLE 31G X 8 MM MISC as directed with insulin DX: Diabetes INSULIN PEN NEEDLE 88613685761 No Longer Active Americaedy Hutton CIALIS 20 MG TABS 1 PO as directed TADALAFIL 00214110035 No Longer Active America Hutton ONE TOUCH ULTRA MINI W/DEVICE KIT BLOOD GLUCOSE MONITORING SUPPL 56623982945 No Longer Active America Hutton PEN NEEDLES 5/16" 31G X 8 MM MISC as directed INSULIN PEN NEEDLE 06835222277 No Longer Active America Hutton ATARAX 25 MG TAB 1 PO Q6hrs prn itching HYDROXYZINE HCL No Longer Active Americaedy Hutton PREDNISONE 20 MG TAB 2 pills at once for 2 days then 1 pill daily for 2 days PREDNISONE 72663140495 No Longer Active America Hutton METFORMIN HCL 500 MG TABS 1 po daily METFORMIN HCL 79635879953 No Longer Active America Hutton CLOTRIMAZOLE 10 MG TROC Dissolve 1 tab in mouth QID for 14 days CLOTRIMAZOLE 82416753320 No Longer Active Ramila Oates PREDNISONE 20 MG TAB 2 pills at once for 3 days then 1 pill daily for 3 days PREDNISONE 21417353427 No Longer Active America Hutton LEVAQUIN 750 MG TABS 1 PO daily for 7 days LEVOFLOXACIN 84432090629 No Longer Active America Hutton MYCELEX 10 MG TROC Dissovle in mouth QID for 14 days CLOTRIMAZOLE 89117671312 No Longer Active Ramírez Gtz LEVITRA 20 MG TABS 1 po daily prn VARDENAFIL HCL 43311206152 No Longer Active America Hutton PROAIR HFA AERS Inhale 1-2 puffs 4x daily prn ALBUTEROL SULFATE AERS 77178522507 No Longer Active America Hutton PREDNISONE 20 MG TAB 3 pills daily at once for 2 days, 2 pills daily at once for 2 days, 1 once daily for 2 days PREDNISONE 24453905418 No Longer Active America Hutton LEVAQUIN 750 MG TABS 1 PO daily LEVOFLOXACIN 97186531365 No Longer Active America Hutton HUMALOG KWIKPEN 100 UNIT/ML SOLN 40 units before meals INSULIN LISPRO (HUMAN) 07731068278 No Longer Active America Hutton MICRONASE 2.5 MG TAB 1 PO BID GLYBURIDE No Longer Active Ramila Oates SYNTHROID 0.025 MG TAB 1 PO Daily on empty stomach LEVOTHYROXINE SODIUM 68455625085 Active Ramila Oates METFORMIN HCL 1000 MG TABS 1 PO BID METFORMIN HCL 10196121545 No Longer Active America Hutton ATROVENT 0.06 % SOLN 2 puffs each nostril TID prn runny nose 2010 IPRATROPIUM BROMIDE 02458169261 No Longer Active America Hutton VICTOZA 18 MG/3ML SOLN 0.6mg injection once daily for one month, then 1.2mg injection once daily LIRAGLUTIDE 91157279166 No Longer Active America Hutton FLONASE 50 MCG/DOSE INHALANT 2 puffs each nostril daily FLONASE 50 MCG/ DOSE INHALANT No Longer Active America Hutton ZYRTEC 10 MG TAB 1 PO QD CETIRIZINE HCL No Longer Active America Rivka Hutton FLUCONAZOLE 200 MG TABS 1 PO daily for 5 days FLUCONAZOLE 05707066638 No Longer Active America Rivka Hutton ADVAIR DISKUS 500-50 MCG/DOSE MISC 1 puff BID FLUTICASONE-SALMETEROL 18971222873 No Longer Active America Rivka Hutton LEVAQUIN 500 MG TAB 1 PO QD LEVOFLOXACIN 70427788354 No Longer Active America Rivka Hutton ASTEPRO 137 MCG/SPRAY SOLN 2 puffs each nostril QHS AZELASTINE HCL 35220784856 No Longer Active America Rivka Hutton SPIRIVA HANDIHALER 18 MCG CAPS 1 inhalation daily TIOTROPIUM BROMIDE MONOHYDRATE 63201471630 No Longer Active America Rivka Hutton AZALEA-D 24 HOUR 180-240 MG [id number] 1 PO daily FEXOFENADINE-PSEUDOEPHEDRINE 51278340292 No Longer Active America Rivka Hutton BACTRIM DS 800-160 MG TAB 1 PO BID TRIMETHOPRIM- SULFAMETHOXAZOLE 31498813730 No Longer Active America Rivka Hutton LEVAQUIN 500 MG TAB 1 PO QD LEVOFLOXACIN 68974524975 No Longer Active America Rivka Hutton PREDNISONE 20 MG TAB 2 pills at once for 2 days then 1 pill daily for 2 days PREDNISONE 88747770251 No Longer Active America Rivka Hutton ROBITUSSIN [...] 1 po daily for 7 days LEVOFLOXACIN 49493605319 No Longer Active America Hutton BACTRIM DS 800-160 MG TAB 1 PO BID TRIMETHOPRIM- SULFAMETHOXAZOLE 63107008281 No Longer Active America Hutton HUMALOG PEN 100 UNIT/ML SOLN 25 units twice daily INSULIN LISPRO (HUMAN) 10761676486 No Longer Active America Hutton LANTUS FOR OPTICLIK 100 UNIT/ML SOLN 20 units injection every night 09/09 INSULIN GLARGINE 59723073050 No Longer Active America Hutton ROBITUSSIN A-C 10-100 MG/5ML SYRUP 1 teaspoon PO Q 4-6 hr prn ROBITUSSIN A-C 10-100 MG/5ML SYRUP No Longer Active Ramila DE PAZ'Akira NASAL SPRAY (DEXAMETHASONE, GENTAMICIN, SALINE) 2 puffs each nostril TID for [address] STRAUSS NASAL SPRAY ( DEXAMETHASONE, GENTAMICIN, SALINE) No Longer Active America Hutton AUGMENTIN 875-125 MG TAB 1 PO BID AMOXICILLIN-POT CLAVULANATE 56862637279 No Longer Active America Hutton ROBITUSSIN A-C 10-100 MG/5ML SYRUP 1 teaspoon PO Q 4-6 hr prn ROBITUSSIN A-C 10-100 MG/5ML SYRUP No Longer Active America STRAUSS NASAL SPRAY (DEXAMETHASONE, GENTAMICIN, SALINE) 2 puffs each nostril TID for [address] STRAUSS NASAL SPRAY ( DEXAMETHASONE, GENTAMICIN, SALINE) No Longer Active Barron Walkerton LEVAQUIN 500 MG TAB 1 PO QD LEVOFLOXACIN 51291148921 No Longer Active Barron Walkerton PREDNISONE 20 MG TAB 2 pills at once for 2 days then 1 pill daily for 2 days PREDNISONE 82750962829 No Longer Active America DE PAZ'Akira NASAL SPRAY (DEXAMETHASONE, GENTAMICIN, SALINE) 2 puffs each nostril TID for [address] STRAUSS NASAL SPRAY ( DEXAMETHASONE, GENTAMICIN, SALINE) No Longer Active America Hutton AMOXICILLIN 500 MG CAP 1 PO TID AMOXICILLIN 71766198197 No Longer Active America Hutton LISINOPRIL 10 MG TABS 1 PO Daily LISINOPRIL 15936815796 No Longer Active Ramila Oates FLOMAX 0.4 MG CP24 1 PO QHS for prostate TAMSULOSIN HCL 60680316573 No Longer Active America Hutton MAGNESIUM OXIDE 400 MG TABS 1 PO daily MAGNESIUM OXIDE 12998830326 Active Suyapa Christie LASIX 20 MG TAB Take 2 PO BID FUROSEMIDE 68362012358 Active Ramila Oates KEFLEX 500 MG CAP 1 PO TID for 7 days CEPHALEXIN 12300792439 No Longer Active America Hutton ATROVENT 0.06 % SOLN 2 puffs each nostril TID prn runny nose 2008 IPRATROPIUM BROMIDE 05799864959 No Longer Active America Hutton PREDNISONE 20 MG TAB 3 pills daily at once for 3 days, 2 pills daily at once for 3 days, 1 once daily for 3 days PREDNISONE 81607260145 No Longer Active America Hutton LEVAQUIN 500 MG TAB 1 PO QD LEVOFLOXACIN 18716071682 No Longer Active America Hutton CRESTOR 5 MG TABS 1 PO daily ROSUVASTATIN CALCIUM 72580620359 Active America Hutton PREDNISONE 20 MG TAB 2 pills at once for 2 days then 1 pill daily for 2 days PREDNISONE 73974233211 No Longer Active America DE PAZ'S NASAL SPRAY (DEXAMETHASONE, GENTAMICIN, SALINE) 2 puffs each nostril TID for [address] DE PAZ'Akira NASAL SPRAY ( DEXAMETHASONE, GENTAMICIN, SALINE) No Longer Active America Hutton AUGMENTIN 875-125 MG TAB 1 PO BID AMOXICILLIN-POT CLAVULANATE 97966968209 No Longer Active America Hutton BIAXIN 500 MG TAB 1 PO BID for 7 days CLARITHROMYCIN 59843125212 No Longer Active [facility] ALBUTEROL SULFATE (2.5 MG/3ML) 0.083% NEBU 1 treatment QID ALBUTEROL SULFATE 33112535558 Active America Hutton ROBITUSSIN A-C 10-100 MG/5ML SYRUP 1 teaspoon PO Q 4-6 hr prn ROBITUSSIN A-C 10-100 MG/5ML SYRUP 89256344564 No Longer Active Y Y DOXYCYCLINE HYCLATE 100 MG CAP 1 po BID. Take with food to avoid nausea. 2007 DOXYCYCLINE HYCLATE 90137619509 No Longer Active Y Y BIAXIN 500 MG TAB 1 PO BID for lung infection CLARITHROMYCIN 78803650182 No Longer Active America Hutton MEVACOR 40 MG TABS 1 PO daily LOVASTATIN 86565103878 No Longer Active America Hutton BYETTA 10 MCG PEN SOLN i injection am and at supper(On hold 09/04/07 while re- starting Humalog) EXENATIDE SOLN 92718481411 No Longer Active America Hutton LEVITRA 10 MG TABS 1 PO as directed VARDENAFIL HCL 54421536312 No Longer Active Tyler Bolton AUGMENTIN 500-125 MG TAB 1 PO BID AMOXICILLIN-POT CLAVULANATE 24139826926 No Longer Active Ramila STRAUSS NASAL SPRAY [...] 1 MG TABS as directed VARENICLINE TARTRATE 82182098719 No Longer Active Americaedy Hutton LEVEMIR FLEXPEN SOLN 15 units QHS INSULIN DETEMIR SOLN 80636519912 No Longer Active America Hutton CIALIS 20 MG TABS 1po daily prn TADALAFIL 15922990141 No Longer Active Americaedy Hutton VIAGRA 50 MG TABS Take 1 PO prn SILDENAFIL CITRATE 94696799345 No Longer Active Americaedy Hutton LOTRISONE 1-0.05 % CREA Apply to both arms BID CLOTRIMAZOLE-BETAMETHASONE 62461104094 No Longer Active America Hutton LEVAQUIN 500 MG TAB 1 PO QD LEVOFLOXACIN 67433427924 No Longer Active Americaedy Hutton SPIRONOLACTONE 25 MG TABS 2 po daily SPIRONOLACTONE 07767030255 Active Ramila Oates TAMIFLU 75 MG CAPS 1 po BID x 5 days OSELTAMIVIR PHOSPHATE 66937092859 No Longer Active Americaedy Hutton LANTUS FOR OPTICLIK 100 UNIT/ML SOLN 10 units QHS INSULIN GLARGINE 88910978291 No Longer Active Americaedy Hutton ATROVENT 0.06 % SOLN 2 puffs each nostril BID x 7 days IPRATROPIUM BROMIDE 72130100253 No Longer Active America Rivka Hutton AUGMENTIN 875-125 MG TABS 1 po BID for 7 days. AMOXICILLIN-POT CLAVULANATE 04390883017 No Longer Active America Hutton AZALEA 180 MG TABS 1 po daily FEXOFENADINE HCL 77264578238 No Longer Active America Hutton PYRIDIUM 200 MG TABS 1 po TID for 3 days PHENAZOPYRIDINE HCL 56104719383 No Longer Active America Hutton ZAROXOLYN 5 MG TABS 1 PO daily METOLAZONE Active Ramila Oates NOVOLOG PENFILL SOLN 4 units before meals INSULIN ASPART SOLN 34046018933 No Longer Active America Hutton Immunizations Vaccine [...] phosphatase, serum 71 U/L Clinical Lists Update: CBC,[facility] - Hematology hemoglobin, blood 14.2 g/dL hematocrit, blood 45 % platelet count 297 10*3/mm3 erythrocyte (RBC) count 4.76 10*6/mm3 leukocyte count, blood 15.0 10*3/mm3 mean corpuscular volume, RBC 95 fL red blood cell distribution width 13.7 % Clinical Lists Update: CBC,[facility] RE: [facility] - Chemistry potassium, [...] % Encounters Code Encounter Date Provider Facility CPT-69547 Ofc Vst, Est Level III 19:33:22 CDT Americaedy Hutton, DO, FACP CPT-96266 Ofc Vst, Est Level III 17:18:19 CDT Americaedy Arellanoner, DO, FACP CPT-78607 Ofc Vst, Est Level IV 15:55:02 CDT America Arellanoner, DO, FACP CPT-79100 Ofc Vst, Est Level IV 12:24:37 VENDING MACHINE REFILLER America Hutton, DO, FACP CPT-10400 Ofc Vst, Est Level IV 17:38:12 CDT Americaedy Arellanoner, DO, FACP CPT-31195 Ofc Vst, Est Level III 14:37:41 CDT America Hutton, DO, FACP CPT-11112 Ofc Vst, Est Level III 12:43:48 VENDING MACHINE REFILLER America Hutton, DO, FACP CPT-97587 Ofc Vst, Est Level IV 10:57:08 VENDING MACHINE REFILLER Americaedy Champion Hutton, DO, FACP CPT-40823 Ofc Vst, Est Level IV 16:59:13 CDT America Rivka Champion Hutton, DO, FACP CPT-31594 Ofc Vst, Est Level IV 16:43:56 CDT America Rivka [facility] CPT-40320 Ofc Vst, Est Level III 16:27:39 CDT America Rivka Champion Hutton, DO, FACP CPT-55924 Ofc Vst, Est Level IV 14:14:50 CDT America Rivka Champion Hutton, DO, FACP CPT-58304 Ofc Vst, Est Level III 11:30:50 CDT America Rivka Champion Anni, DO, FACP CPT-39196 Ofc Vst, Est Level III 16:29:28 CDT America Rivka Champion Hutton, DO, FACP CPT-31994 Ofc Vst, Est Level IV 16:50:49 VENDING MACHINE REFILLER America Champion Hutton, DO, FACP CPT-79685 Ofc Vst, Est Level IV 11:54:05 CDT Americaedy Champion Anni, DO, FACP CPT-68767 Ofc Vst, Est Level IV 10:52:34 CDT America Rivka Champion Hutton, DO, FACP CPT-75130 Ofc Vst, Est Level IV 11:30:28 VENDING MACHINE REFILLER America Rivka Champion Hutton, DO, FACP CPT-75013 Ofc Vst, Est Level IV 10:48:08 VENDING MACHINE REFILLER America Rivka Champion Hutton, DO, FACP CPT-80703 Ofc Vst, Est Level IV 11:36:11 CDT America Rivka Champion Anni, DO, FACP CPT-21013 Ofc Vst, Est Level IV 10:59:29 CDT America Rivka Champion Hutton, DO, FACP CPT-46210 Ofc Vst, Est Level IV 11:57:28 CDT America Rivka Champion Anni, DO, FACP CPT-81256 Ofc Vst, Est Level IV 11:04:42 VENDING MACHINE REFILLER Americaedy Champion Anni, DO, FACP CPT-99531 Ofc Vst, Est Level V 11:03:29 VENDING MACHINE REFILLER America Champion Anni, DO, FACP CPT-59551 Ofc Vst, Est Level IV 10:53:30 CDT America Rivka Champion Anni, DO, FACP CPT-23343 Ofc Vst, Est Level IV 11:12:42 CDT America Rivka Champion Anni, DO, FACP CPT-35388 Ofc Vst, Est Level IV 11:25:49 CDT Americaedy Champion Anni, DO, FACP CPT-09464 Ofc Vst, Est Level IV 14:19:05 CDT Americaedy Champion Anni, DO, FACP CPT-51850 Ofc Vst, Est Level V 15:01:50 VENDING MACHINE REFILLER America [facility] CPT-97826 Ofc Vst, Est Level IV 11:18:30 VENDING MACHINE REFILLER America Champion Anni, DO, FACP CPT-04157 Ofc Vst, Est Level IV 14:33:19 CDT America Champion Anni, DO, FACP CPT-58485 Ofc Vst, Est Level IV 14:24:09 CDT America Rivka Champion Anni, DO, FACP CPT-43029 Ofc Vst, Est Level IV 16:24:25 CDT America Rivka Hutton [facility] CPT-54839 Ofc Vst, Est Level V 12:06:18 CDT America Rivka Champion Hutton, DO, FACP CPT-27769 Ofc Vst, Est Level IV 11:32:52 CDT America Rivka Champion Hutton, DO, FACP CPT-31062 Ofc Vst, Est Level V 15:54:46 CDT America Rivka Betancuri S Hutton, DO, FACP CPT-17294 Ofc Vst, Est Level IV 14:32:33 CDT America Rivka Champion Anni, DO, FACP CPT-78628 Ofc Vst, Est Level IV 14:06:04 VENDING MACHINE REFILLER [place]er[place] Rivka Champion Anni, DO, FACP CPT-61242 Ofc Vst, Est Level IV 10:36:45 VENDING MACHINE REFILLER America Rivka Betancuri Akira Anni, DO, FACP CPT-26228 Ofc Vst, Est Level IV 13:12:16 CDT America Rivka Champion Anni, DO, FACP CPT-70192 Ofc Vst, Est Level IV 15:20:36 CDT America Rivka Champion Anni, DO, FACP CPT-50976 Ofc Vst, Est Level III 12:05:11 CDT America Rivka Champion Anni, DO, FACP CPT-71187 Ofc Vst, Est Level III 13:05:33 CDT America Rivka Cross S Anni, DO, FACP CPT-10111 Ofc Vst, Est Level IV 14:09:19 CDT America Rivka Cross S Anni, DO, FACP CPT-56209 Ofc Vst, Est Level IV 14:00:30 VENDING MACHINE REFILLER America Champion Hutton, DO, FACP CPT-18519 Ofc Vst, Est Level IV 17:29:08 VENDING MACHINE REFILLER America Champion Hutton, DO, FACP CPT-77129 Ofc Vst, Est Level III 13:45:01 VENDING MACHINE REFILLER America Champion Hutton, DO, FACP CPT-16438 Ofc Vst, Est Level IV 15:24:26 VENDING MACHINE REFILLER America Champion Hutton, DO, FACP CPT-18386 Ofc Vst, Est Level IV 15:54:58 VENDING MACHINE REFILLER America Champion Hutton, DO, FACP CPT-22737 Ofc Vst, Est Level IV 10:17:27 VENDING MACHINE REFILLER America Champion Hutton, DO, FACP CPT-94971 Ofc Vst, Est Level IV 11:40:37 CDT America Hutton, DO, FACP CPT-09819 Ofc Vst, New Level IV 17:22:52 CDT America Champion Hutton, DO, FACP Procedures Code Procedure Name Date Entry Date Standard Description CPT-49912 Preventive, Est, (40-64) 13:27:46 CDT CPT-62649 Preventive, Est, (40-64) 21:40:47 CDT CPT-29552 Preventive, Est, (40-64) 20:22:44 VENDING MACHINE REFILLER CPT-45573 Injection 11:25:49 CDT CPT-63115 Injection 14:19:05 CDT CPT-59696 Injection 14:33:19 CDT CPT-45652 Injection 14:24:09 CDT CPT-40162 Injection 16:24:25 CDT CPT-88764 Injection 14:32:33 CDT CPT-72256 Injection 14:06:04 VENDING MACHINE REFILLER CPT-38547 Biopsy, skin/subcut/mucous membrane; sngl lsn 14:21:51 CDT CPT-G0008 Administration Influenza Vaccine 11:40:37 CDT CPT-04797 Influenza Vaccine 11:40:37 CDT
--- OUTSIDE RECORDS SUMMARY | 2017-04-21 14:32 | XMS REPORT | Clinical Summary ---
Author Author User, [employer] Organization America Hutton DO, FACP Address Unknown [...] Coronary atherosclerosis of unspecified type of vessel, [place] or graft CHRONIC AIRWAY OBSTRUCTION (COPD) 496 [...] Apply to affected areas BID GENTAMICIN SULFATE 24459218456 Active Ramila Oates NOVOLOG 100 U/ML SOLN 20 units before meals INSULIN ASPART 55859196152 Active America Hutton ATROVENT 0.06 % SOLN 2 puffs each nostril TID prn runny nose 2014 IPRATROPIUM BROMIDE 57174091625 No Longer Active Ramila Oates NYSTATIN 868344 U/ML SUSP 5cc PO QID for 7 days NYSTATIN 24323399008 No Longer Active America Hutton TAMIFLU 75 MG CAPS 1 po BID OSELTAMIVIR PHOSPHATE 56253744422 No Longer Active America Hutton NYSTATIN 604065 UNIT/GM CREA apply to affected areas BID for 7 days NYSTATIN 85983530558 No Longer Active Ramila Oates SPIRIVA HANDIHALER 18 MCG CAPS ONE INHALATION DAILY TIOTROPIUM BROMIDE MONOHYDRATE 88908356235 Active America Hutton ATROVENT HFA 17 MCG/ACT AERS 2 puffs BID IPRATROPIUM BROMIDE HFA 77509140046 No Longer Active America Hutton PERFOROMIST 20 MCG/2ML NEBU 1 vial Neb treatment BID FORMOTEROL FUMARATE 29538254633 No Longer Active America Hutton VENTOLIN HFA 108 (90 BASE) MCG/ACT AERS 2 puffs Q 4 hours prn ALBUTEROL SULFATE 92974508455 No Longer Active America Hutton HYDROXYZINE HCL 25 MG TABS 1 PO Q 6HRS PRN HYDROXYZINE HCL 21895040175 Active Ramila Oates SINGULAIR 10 MG TABS 1 PO AT Q HS MONTELUKAST SODIUM 99444214967 Active America Hutton LANTUS SOLOSTAR 100 UNIT/ML SOLN 20 units at night INSULIN GLARGINE 83880564496 Active America Hutton AMLACTIN 12 % LOTN Apply a small amount to affected areas BID AMMONIUM LACTATE 88857068393 No Longer Active America Hutton ADVAIR DISKUS 500-50 MCG/DOSE AEPB 1 puff BID FLUTICASONE- SALMETEROL 65653970734 Active Ramila Oates POTASSIUM CHLORIDE ER 20 MEQ CR-TABS 1-2 PO BID POTASSIUM CHLORIDE 88430769212 Active Ramila Oates NOVOFINE 30G X 8 MM MISC DIRECTED DX: 250.00 INSULIN PEN NEEDLE 21105974518 Active Ramila Oates PREDNISONE 10 MG TAB 2 PO daily for for 3 days then 1 PO daily for 5 days. PREDNISONE 19606447795 No Longer Active America DE PAZ'Akira NASAL SPRAY (DEXAMETHASONE, GENTAMICIN, SALINE) 2 puffs each nostril TID for [address] STRAUSS NASAL SPRAY ( DEXAMETHASONE, GENTAMICIN, SALINE) No Longer Active America Hutton CEFDINIR 300 MG CAPS 1 PO BID for 6 weeks CEFDINIR 95525968718 No Longer Active America Hutton PREDNISONE 20 MG TAB 2 pills at once for 2 days then 1 pill daily for 5 days PREDNISONE 86324604901 No Longer Active America Hutton DOXYCYCLINE HYCLATE 100 MG CAP 1 po BID DOXYCYCLINE HYCLATE 53957002472 No Longer Active America Hutton NYSTATIN 700323 U/ML SUSP 5cc PO QID for 7 days NYSTATIN 02372951953 No Longer Active America Rivka Hutton NYSTATIN 960287 U/ML SUSP 5cc PO QID for 7 days NYSTATIN 68140016768 No Longer Active America Rivka Hutton ASPIRIN 325 MG TABS 1 PO daily ASPIRIN 67984722025 No Longer Active America Rivka Hutton COZAAR 100 MG TAB 1 PO Daily LOSARTAN POTASSIUM 80538755601 Active Ramila Oates PREDNISONE 20 MG TAB 2 pills at once for 2 days then 1 pill daily for 5 days PREDNISONE 61415671981 No Longer Active America Rivka Hutton DOXYCYCLINE HYCLATE 100 MG CAP 1 po BID DOXYCYCLINE HYCLATE 75076805114 No Longer Active America Rivka Hutton HYZAAR 100-12.5 MG TABS 1 PO daily LOSARTAN POTASSIUM-HCTZ 71376807614 No Longer Active America Rivka Hutton MOBIC 15 MG TABS 1 PO daily for arthritis MELOXICAM 63195555367 Active America Rivka Hutton PREDNISONE 20 MG TAB 2 pills at once for 2 days then 1 pill daily for 5 days PREDNISONE 78194143015 No Longer Active Americaedy Hutton LEVAQUIN 750 MG TABS 1 PO daily LEVOFLOXACIN 86822832136 No Longer Active America Rivka Hutton ANDROGEL PUMP 20.25 MG/ACT (1.62%) GEL rub in two pumps into skin daily TESTOSTERONE 80515051493 No Longer Active America Rivka Hutton ULTRAM 50 MG TAB 1 PO q 6 hrs prn TRAMADOL HCL 60562077703 No Longer Active America Rivka Hutton VITAMIN D 1000 UNIT TABS 1 PO Daily CHOLECALCIFEROL 69497503663 No Longer Active America Rivka Hutton ETODOLAC 400 MG TABS 1 PO BID ETODOLAC 04676626877 No Longer Active Americaedy Hutton LORTAB 7.5 7.5-500 MG TABS 1-2 q 4-6 hrs. prn HYDROCODONE- ACETAMINOPHEN 46533734495 No Longer Active Americaedy Hutton PLAVIX 75 MG TABS 1 po daily CLOPIDOGREL BISULFATE 03025984884 No Longer Active Americaedy Hutton ATARAX 25 MG TAB 1 PO Q6 hours prn HYDROXYZINE HCL Active Rosario Moyer PREDNISONE 20 MG TAB 2 pills at once for 2 days then 1 pill daily for 5 days PREDNISONE 90658378697 No Longer Active Americaedy Hutton ONETOUCH ULTRA BLUE STRP TEST BS QID DX: DIABETES GLUCOSE BLOOD 19866841742 Active Ramila Oates ATARAX 25 MG TAB 1 PO Q6hrs prn HYDROXYZINE HCL No Longer Active Americaedy Hutton PREDNISONE 20 MG TAB 2 pills at once for 2 days then 1 pill daily for 2 days PREDNISONE 49952416597 No Longer Active Americaedy Hutton PEN NEEDLES 5/16" 31G X 8 MM MISC as directed INSULIN PEN NEEDLE 42904060745 No Longer Active Americaedy Hutton NASONEX 50 MCG/ACT SUSP 2 Puffs ea. nostril daily MOMETASONE FUROATE 93335290208 No Longer Active Americaedy Hutton CLARINEX 5 MG TABS 1 po daily DESLORATADINE 19682650367 No Longer Active Americaedy Hutton MIRALAX POWD 1 scoop in 4oz of water PO daily POLYETHYLENE GLYCOL 3350 90626728260 No Longer Active Americaedy Hutton 10% LCD IN THC .1% Apply to arms at bedtime 10% LCD IN THC .1% No Longer Active America Rivka Hutton TRIAMCINOLONE ACETONIDE 0.025 % OINT Apply to rash on arms daily as needed. TRIAMCINOLONE ACETONIDE 47502204240 No Longer Active America Hutton ONE TOUCH ULTRA TEST STRP Test BS TID DX: Diabetes GLUCOSE BLOOD 69324615298 No Longer Active America Hutton BD U/F SHORT PEN NEEDLE 31G X 8 MM MISC as directed with insulin DX: Diabetes INSULIN PEN NEEDLE 01147381072 No Longer Active America Hutton CIALIS 20 MG TABS 1 PO as directed TADALAFIL 35121295318 No Longer Active America Hutton ONE TOUCH ULTRA MINI W/DEVICE KIT BLOOD GLUCOSE MONITORING SUPPL 47671523953 No Longer Active America Hutton PEN NEEDLES /16" 31G X 8 MM MISC as directed INSULIN PEN NEEDLE 22555354001 No Longer Active America Hutton ATARAX 25 MG TAB 1 PO Q6hrs prn itching HYDROXYZINE HCL No Longer Active America Hutton PREDNISONE 20 MG TAB 2 pills at once for 2 days then 1 pill daily for 2 days PREDNISONE 49983925734 No Longer Active America Hutton METFORMIN HCL 500 MG TABS 1 po daily METFORMIN HCL 20060040464 No Longer Active America Hutton CLOTRIMAZOLE 10 MG TROC Dissolve 1 tab in mouth QID for 14 days CLOTRIMAZOLE 28166332010 No Longer Active Ramila Oates PREDNISONE 20 MG TAB 2 pills at once for 3 days then 1 pill daily for 3 days PREDNISONE 96403657666 No Longer Active America Hutton LEVAQUIN 750 MG TABS 1 PO daily for 7 days LEVOFLOXACIN 46942439773 No Longer Active America Hutton MYCELEX 10 MG TROC Dissovle in mouth QID for 14 days CLOTRIMAZOLE 93841808382 No Longer Active Ramírez Gtz LEVITRA 20 MG TABS 1 po daily prn VARDENAFIL HCL 51097508363 No Longer Active Americaedy Hutton PROAIR HFA AERS Inhale 1-2 puffs 4x daily prn ALBUTEROL SULFATE AERS 72553490195 No Longer Active America Hutton PREDNISONE 20 MG TAB 3 pills daily at once for 2 days, 2 pills daily at once for 2 days, 1 once daily for 2 days PREDNISONE 18882948982 No Longer Active America Hutton LEVAQUIN 750 MG TABS 1 PO daily LEVOFLOXACIN 15122544006 No Longer Active America Hutton HUMALOG KWIKPEN 100 UNIT/ML SOLN 40 units before meals INSULIN LISPRO (HUMAN) 60701115472 No Longer Active America Hutton MICRONASE 2.5 MG TAB 1 PO BID GLYBURIDE No Longer Active Ramila Oates SYNTHROID 0.025 MG TAB 1 PO Daily on empty stomach LEVOTHYROXINE SODIUM 75528835136 Active Ramila Oates METFORMIN HCL 1000 MG TABS 1 PO BID METFORMIN HCL 68150855013 No Longer Active America Hutton ATROVENT 0.06 % SOLN 2 puffs each nostril TID prn runny nose 2010 IPRATROPIUM BROMIDE 89475633111 No Longer Active Americaedy Hutton VICTOZA 18 MG/3ML SOLN 0.6mg injection once daily for one month, then 1.2mg injection once daily LIRAGLUTIDE 14163612847 No Longer Active Americaedy Hutton FLONASE 50 MCG/DOSE INHALANT 2 puffs each nostril daily FLONASE 50 MCG/ DOSE INHALANT No Longer Active America Rivka Hutton ZYRTEC 10 MG TAB 1 PO QD CETIRIZINE HCL No Longer Active America Rivka Hutton FLUCONAZOLE 200 MG TABS 1 PO daily for 5 days FLUCONAZOLE 74524975896 No Longer Active America Rivka Hutton ADVAIR DISKUS 500-50 MCG/DOSE MISC 1 puff BID FLUTICASONE-SALMETEROL 32597911296 No Longer Active America Rivka Hutton LEVAQUIN 500 MG TAB 1 PO QD LEVOFLOXACIN 76311422425 No Longer Active America Rivka Hutton ASTEPRO 137 MCG/SPRAY SOLN 2 puffs each nostril QHS AZELASTINE HCL 76641259495 No Longer Active America Rivka Hutton SPIRIVA HANDIHALER 18 MCG CAPS 1 inhalation daily TIOTROPIUM BROMIDE MONOHYDRATE 23272412706 No Longer Active America Rivka Hutton AZALEA-D 24 HOUR 180-240 MG SL64W-PVO 1 PO daily FEXOFENADINE-PSEUDOEPHEDRINE 29040210708 No Longer Active America Rivka Hutton BACTRIM DS 800-160 MG TAB 1 PO BID TRIMETHOPRIM- SULFAMETHOXAZOLE 90240417296 No Longer Active America Rivka Hutton LEVAQUIN 500 MG TAB 1 PO QD LEVOFLOXACIN 23581025409 No Longer Active America Rivka Hutton PREDNISONE 20 MG TAB 2 pills at once for 2 days then 1 pill daily for 2 days PREDNISONE 32753552397 No Longer Active America Rivka Hutton ROBITUSSIN [...] 1 po daily for 7 days LEVOFLOXACIN 33827411416 No Longer Active America uHtton BACTRIM DS 800-160 MG TAB 1 PO BID TRIMETHOPRIM- SULFAMETHOXAZOLE 53846251228 No Longer Active America Hutton HUMALOG PEN 100 UNIT/ML SOLN 25 units twice daily INSULIN LISPRO (HUMAN) 13924011512 No Longer Active America Hutton LANTUS FOR OPTICLIK 100 UNIT/ML SOLN 20 units injection every night 09/09 INSULIN GLARGINE 75602797364 No Longer Active America Hutton ROBITUSSIN A-C 10-100 MG/5ML SYRUP 1 teaspoon PO Q 4-6 hr prn ROBITUSSIN A-C 10-100 MG/5ML SYRUP No Longer Active Ramila STRAUSS NASAL SPRAY (DEXAMETHASONE, GENTAMICIN, SALINE) 2 puffs each nostril TID for [address] STRAUSS NASAL SPRAY ( DEXAMETHASONE, GENTAMICIN, SALINE) No Longer Active America Hutton AUGMENTIN 875-125 MG TAB 1 PO BID AMOXICILLIN-POT CLAVULANATE 23803931572 No Longer Active America Hutton ROBITUSSIN A-C 10-100 MG/5ML SYRUP 1 teaspoon PO Q 4-6 hr prn ROBITUSSIN A-C 10-100 MG/5ML SYRUP No Longer Active America STRAUSS NASAL SPRAY (DEXAMETHASONE, GENTAMICIN, SALINE) 2 puffs each nostril TID for [address] STRAUSS NASAL SPRAY ( DEXAMETHASONE, GENTAMICIN, SALINE) No Longer Active Barron Joi LEVAQUIN 500 MG TAB 1 PO QD LEVOFLOXACIN 17263788284 No Longer Active Barron Oilton PREDNISONE 20 MG TAB 2 pills at once for 2 days then 1 pill daily for 2 days PREDNISONE 90771383486 No Longer Active Americaedy DE PAZ'Akira NASAL SPRAY (DEXAMETHASONE, GENTAMICIN, SALINE) 2 puffs each nostril TID for [address] STRAUSS NASAL SPRAY ( DEXAMETHASONE, GENTAMICIN, SALINE) No Longer Active America Hutton AMOXICILLIN 500 MG CAP 1 PO TID AMOXICILLIN 41165210093 No Longer Active America Hutton LISINOPRIL 10 MG TABS 1 PO Daily LISINOPRIL 79659856177 No Longer Active Ramila Oates FLOMAX 0.4 MG CP24 1 PO QHS for prostate TAMSULOSIN HCL 27454357954 No Longer Active America Hutton MAGNESIUM OXIDE 400 MG TABS 1 PO daily MAGNESIUM OXIDE 18483916379 Active Suyapa Christie LASIX 20 MG TAB Take 2 PO BID FUROSEMIDE 60284540979 Active Ramila Loeratis KEFLEX 500 MG CAP 1 PO TID for 7 days CEPHALEXIN 99140865350 No Longer Active America Hutton ATROVENT 0.06 % SOLN 2 puffs each nostril TID prn runny nose 2008 IPRATROPIUM BROMIDE 17125628116 No Longer Active America Hutton PREDNISONE 20 MG TAB 3 pills daily at once for 3 days, 2 pills daily at once for 3 days, 1 once daily for 3 days PREDNISONE 19244181657 No Longer Active America Hutton LEVAQUIN 500 MG TAB 1 PO QD LEVOFLOXACIN 75163763668 No Longer Active America Hutton CRESTOR 5 MG TABS 1 PO daily ROSUVASTATIN CALCIUM 29057644538 Active America Hutton PREDNISONE 20 MG TAB 2 pills at once for 2 days then 1 pill daily for 2 days PREDNISONE 00498658498 No Longer Active America DE PAZ'Akira NASAL SPRAY (DEXAMETHASONE, GENTAMICIN, SALINE) 2 puffs each nostril TID for [address] STRAUSS NASAL SPRAY ( DEXAMETHASONE, GENTAMICIN, SALINE) No Longer Active America Hutton AUGMENTIN 875-125 MG TAB 1 PO BID AMOXICILLIN-POT CLAVULANATE 88771466860 No Longer Active America Hutton BIAXIN 500 MG TAB 1 PO BID for 7 days CLARITHROMYCIN 63641151081 No Longer Active Da Tse ALBUTEROL SULFATE (2.5 MG/3ML) 0.083% NEBU 1 treatment QID ALBUTEROL SULFATE 69126009139 Active America Hutton ROBITUSSIN A-C 10-100 MG/5ML SYRUP 1 teaspoon PO Q 4-6 hr prn ROBITUSSIN A-C 10-100 MG/5ML SYRUP 33300826878 No Longer Active Y Y DOXYCYCLINE HYCLATE 100 MG CAP 1 po BID. Take with food to avoid nausea. 2007 DOXYCYCLINE HYCLATE 08316784928 No Longer Active Y Y BIAXIN 500 MG TAB 1 PO BID for lung infection CLARITHROMYCIN 62897754588 No Longer Active America Hutton MEVACOR 40 MG TABS 1 PO daily LOVASTATIN 03131504957 No Longer Active America Hutton BYETTA 10 MCG PEN SOLN i injection am and at supper(On hold 09/04/07 while re- starting Humalog) EXENATIDE SOLN 11440323657 No Longer Active America Hutton LEVITRA 10 MG TABS 1 PO as directed VARDENAFIL HCL 06849315231 No Longer Active Tyler Bolton AUGMENTIN 500-125 MG TAB 1 PO BID AMOXICILLIN-POT CLAVULANATE 46023230467 No Longer Active Ramila DE PAZ'Akira NASAL [...] 1 MG TABS as directed VARENICLINE TARTRATE 36597067168 No Longer Active Americaedy Hutton LEVEMIR FLEXPEN SOLN 15 units QHS INSULIN DETEMIR SOLN 51154351204 No Longer Active Americaedy Hutton CIALIS 20 MG TABS 1po daily prn TADALAFIL 41947170736 No Longer Active Americaedy Hutton VIAGRA 50 MG TABS Take 1 PO prn SILDENAFIL CITRATE 11274602253 No Longer Active Americaedy Hutton LOTRISONE 1-0.05 % CREA Apply to both arms BID CLOTRIMAZOLE-BETAMETHASONE 45991287572 No Longer Active Americaedy Hutton LEVAQUIN 500 MG TAB 1 PO QD LEVOFLOXACIN 81781863508 No Longer Active Americaedy Hutton SPIRONOLACTONE 25 MG TABS 2 po daily SPIRONOLACTONE 37464936634 Active Ramila Oates TAMIFLU 75 MG CAPS 1 po BID x 5 days OSELTAMIVIR PHOSPHATE 03277783202 No Longer Active Americaedy Hutton LANTUS FOR OPTICLIK 100 UNIT/ML SOLN 10 units QHS INSULIN GLARGINE 62275956779 No Longer Active America Rivka Hutton ATROVENT 0.06 % SOLN 2 puffs each nostril BID x 7 days IPRATROPIUM BROMIDE 47842275901 No Longer Active America Chaveze Anni AUGMENTIN 875-125 MG TABS 1 po BID for 7 days. AMOXICILLIN-POT CLAVULANATE 09592701983 No Longer Active America Hutton AZALEA 180 MG TABS 1 po daily FEXOFENADINE HCL 16624783160 No Longer Active Americaedy Chaveze Anni PYRIDIUM 200 MG TABS 1 po TID for 3 days PHENAZOPYRIDINE HCL 45910349419 No Longer Active America Chaveze Anni ZAROXOLYN 5 MG TABS 1 PO daily METOLAZONE Active Ramila Oates NOVOLOG PENFILL SOLN 4 units before meals INSULIN ASPART SOLN 08503995351 No Longer Active America Hutton Immunizations Vaccine [...] Value Unit Range Description Clinical Lists Update: CBC,[facility] - Chemistry albumin, serum 3.0 g/dL Estimated [...] phosphatase, serum 71 U/L Clinical Lists Update: CBC,[facility] - Hematology hemoglobin, blood 14.2 g/dL hematocrit, blood 45 % platelet count 297 10*3/mm3 erythrocyte (RBC) count 4.76 10*6/mm3 leukocyte count, blood 15.0 10*3/mm3 mean corpuscular volume, RBC 95 fL red blood cell distribution width 13.7 % Clinical Lists Update: CBC,[facility] RE: [facility] - Chemistry potassium, [...] % Encounters Code Encounter Date Provider Facility CPT-69952 Ofc Vst, Est Level III 19:33:22 CDT America Arellanoner, DO, FACP CPT-40914 Ofc Vst, Est Level III 17:18:19 CDT America Arellanoner, DO, FACP CPT-46765 Ofc Vst, Est Level IV 15:55:02 CDT America Hutton, DO, FACP CPT-39900 Ofc Vst, Est Level IV 12:24:37 [employer] America Hutton, DO, FACP CPT-01181 Ofc Vst, Est Level IV 17:38:12 CDT America Hutton, DO, FACP CPT-86931 Ofc Vst, Est Level III 14:37:41 CDT America Htuton, DO, FACP CPT-02389 Ofc Vst, Est Level III 12:43:48 [employer] America Champion Hutton, DO, FACP CPT-10843 Ofc Vst, Est Level IV 10:57:08 [employer] America Champion Hutton, DO, FACP CPT-63600 Ofc Vst, Est Level IV 16:59:13 CDT America Rivka Champion Anni, DO, FACP CPT-09049 Ofc Vst, Est Level IV 16:43:56 CDT Americaedy [facility] CPT-21260 Ofc Vst, Est Level III 16:27:39 CDT America Rivka Champion Anni, DO, FACP CPT-14591 Ofc Vst, Est Level IV 14:14:50 CDT Americaedy Champion Anni, DO, FACP CPT-97810 Ofc Vst, Est Level III 11:30:50 CDT Americaedy Champion Hutton, DO, FACP CPT-38374 Ofc Vst, Est Level III 16:29:28 CDT America Champion Hutton, DO, FACP CPT-31025 Ofc Vst, Est Level IV 16:50:49 [employer] America Champion Anni, DO, FACP CPT-40087 Ofc Vst, Est Level IV 11:54:05 CDT Americaedy Champion Hutton, DO, FACP CPT-37959 Ofc Vst, Est Level IV 10:52:34 CDT America Rivka Champion Hutton, DO, FACP CPT-07812 Ofc Vst, Est Level IV 11:30:28 [employer] America Rivka Champion Hutton, DO, FACP CPT-72277 Ofc Vst, Est Level IV 10:48:08 [employer] America Rivka Champion Hutton, DO, FACP CPT-93840 Ofc Vst, Est Level IV 11:36:11 CDT Americaedy Champion Hutton, DO, FACP CPT-36225 Ofc Vst, Est Level IV 10:59:29 CDT America Champion Hutton, DO, FACP CPT-99060 Ofc Vst, Est Level IV 11:57:28 CDT America Rivka Champion Hutton, DO, FACP CPT-24287 Ofc Vst, Est Level IV 11:04:42 [employer] America Champion Anni, DO, FACP CPT-65039 Ofc Vst, Est Level V 11:03:29 [employer] America Champion Anni, DO, FACP CPT-34754 Ofc Vst, Est Level IV 10:53:30 CDT Americaedy Champion Anni, DO, FACP CPT-43491 Ofc Vst, Est Level IV 11:12:42 CDT Americaedy Champion Anni, DO, FACP CPT-06672 Ofc Vst, Est Level IV 11:25:49 CDT America Champion Anni, DO, FACP CPT-21473 Ofc Vst, Est Level IV 14:19:05 CDT Americaedy Champion Anni, DO, FACP CPT-29515 Ofc Vst, Est Level V 15:01:50 [employer] America Hutton [facility] CPT-95709 Ofc Vst, Est Level IV 11:18:30 [employer] America Champion Anni, DO, FACP CPT-49049 Ofc Vst, Est Level IV 14:33:19 CDT America Champion Anni, DO, FACP CPT-69476 Ofc Vst, Est Level IV 14:24:09 CDT Americaedy Champion Anni, DO, FACP CPT-84389 Ofc Vst, Est Level IV 16:24:25 CDT Americaedy [facility] CPT-35346 Ofc Vst, Est Level V 12:06:18 CDT Americaedy Champion Anni, DO, FACP CPT-67174 Ofc Vst, Est Level IV 11:32:52 CDT Americaedy Champion Anni, DO, FACP CPT-85376 Ofc Vst, Est Level V 15:54:46 CDT America Rivka Champion Anni, DO, FACP CPT-45324 Ofc Vst, Est Level IV 14:32:33 CDT Americaedy Champion Anni, DO, FACP CPT-70011 Ofc Vst, Est Level IV 14:06:04 [employer] America Champion Anni, DO, FACP CPT-37320 Ofc Vst, Est Level IV 10:36:45 [employer] America Champion Anni, DO, FACP CPT-64766 Ofc Vst, Est Level IV 13:12:16 CDT America Champion Anni, DO, FACP CPT-96263 Ofc Vst, Est Level IV 15:20:36 CDT Americaedy Champion Anni, DO, FACP CPT-04103 Ofc Vst, Est Level III 12:05:11 CDT America Rivka Champion Anni, DO, FACP CPT-94676 Ofc Vst, Est Level III 13:05:33 CDT Americaedy Champion Anni, DO, FACP CPT-26167 Ofc Vst, Est Level IV 14:09:19 CDT America Rivka Champion Hutton, DO, FACP CPT-68508 Ofc Vst, Est Level IV 14:00:30 [employer] America Champion Hutton, DO, FACP CPT-55795 Ofc Vst, Est Level IV 17:29:08 [employer] America Champion Hutton, DO, FACP CPT-33170 Ofc Vst, Est Level III 13:45:01 [employer] America Champion Hutton, DO, FACP CPT-09962 Ofc Vst, Est Level IV 15:24:26 [employer] America Champion Anni, DO, FACP CPT-98225 Ofc Vst, Est Level IV 15:54:58 [employer] America Champion Hutton, DO, FACP CPT-46037 Ofc Vst, Est Level IV 10:17:27 [employer] America Champion Hutton, DO, FACP CPT-95124 Ofc Vst, Est Level IV 11:40:37 CDT America Champion Hutton, DO, FACP CPT-33497 Ofc Vst, New Level IV 17:22:52 CDT America Champion Hutton, DO, FACP Procedures Code Procedure Name Date Entry Date Standard Description CPT-46818 Preventive, Est, (40-64) 13:27:46 CDT CPT-53010 Preventive, Est, (40-64) 21:40:47 CDT CPT-85706 Preventive, Est, (40-64) 20:22:44 [employer] CPT-27173 Injection 11:25:49 CDT CPT-10781 Injection 14:19:05 CDT CPT-13762 Injection 14:33:19 CDT CPT-97638 Injection 14:24:09 CDT CPT-93397 Injection 16:24:25 CDT CPT-28236 Injection 14:32:33 CDT CPT-22336 Injection 14:06:04 [employer] CPT-17190 Biopsy, skin/subcut/mucous membrane; sngl lsn 14:21:51 CDT CPT-G0008 Administration Influenza Vaccine 11:40:37 CDT CPT-46241 Influenza Vaccine 11:40:37 CDT
[2017-04-21 14:33] LABS: BASOPHILS # (AUTO) 0.1 10^3/uL (0.0-0.1); BASOPHILS % (AUTO) 1 % (0-10); EOSINOPHILS # (AUTO) 0.8 10^3/uL (0.0-0.3); EOSINOPHILS % (AUTO) 6 % (0-10); LYMPHOCYTES # (AUTO) 2.3 X 10^3 (1.0-4.0); LYMPHOCYTES % (AUTO) 19 % (12-44); MEAN CORPUSCULAR HEMOGLOBIN 28 PG (25-34); MEAN CORPUSCULAR HGB CONC 33 G/DL (32-36); MEAN CORPUSCULAR VOLUME 85 FL (80-99); MEAN PLATELET VOLUME 10.4 FL (7.4-10.4); MONOCYTES # (AUTO) 1.5 X 10^3 (0.0-1.0); MONOCYTES % (AUTO) 12 % (0-12); NEUTROPHILS # (AUTO) 7.3 X 10^3 (1.8-7.8); NEUTROPHILS % (AUTO) 62 % (42-75); PLATELET COUNT 255 10^3/uL (130-400); RED CELL DISTRIBUTION WIDTH 17.5 % (10.0-14.5); WHITE BLOOD COUNT 11.8 10^3/uL (4.3-11.0)
--- OUTSIDE RECORDS SUMMARY | 2017-04-21 14:34 | XMS REPORT | Clinical Summary ---
Author Author User, [employer] America Hutton DO, FACP Address Unknown [...] Coronary atherosclerosis of unspecified type of vessel, salamatof or graft CHRONIC AIRWAY OBSTRUCTION (COPD) 496 [...] Name NDC Status Provider Patient Instruction NYSTATIN 007678 U/ML SUSP 5cc PO QID for 7 days NYSTATIN [id number] No Longer Active America Hutton TAMIFLU 75 MG CAPS 1 po BID OSELTAMIVIR PHOSPHATE 73480566471 No Longer Active America Hutton NYSTATIN 218354 UNIT/GM CREA apply to affected areas BID for 7 days NYSTATIN 32438072824 No Longer Active Ramila Oates SPIRIVA HANDIHALER 18 MCG CAPS ONE INHALATION DAILY TIOTROPIUM BROMIDE MONOHYDRATE 06658421708 Active America Hutton ATROVENT HFA 17 MCG/ACT AERS 2 puffs BID IPRATROPIUM BROMIDE HFA 83894982207 No Longer Active America Hutton PERFOROMIST 20 MCG/2ML NEBU 1 vial Neb treatment BID FORMOTEROL FUMARATE 93699363474 No Longer Active America Hutton VENTOLIN HFA 108 (90 BASE) MCG/ACT AERS 2 puffs Q 4 hours prn ALBUTEROL SULFATE 89713684692 No Longer Active America Hutton HYDROXYZINE HCL 25 MG TABS 1 PO Q 6HRS PRN HYDROXYZINE HCL 49304199639 Active Ramila Oates SINGULAIR 10 MG TABS 1 PO AT Q HS MONTELUKAST SODIUM 81640379059 Active America Hutton NOVOLOG 100 U/ML SOLN 12 units before meals INSULIN ASPART 61592748067 Active America Hutton LANTUS SOLOSTAR 100 UNIT/ML SOLN 20 units at night INSULIN GLARGINE 44066252259 Active America Hutton AMLACTIN 12 % LOTN Apply a small amount to affected areas BID AMMONIUM LACTATE 67353679805 No Longer Active America Hutton ADVAIR DISKUS 500-50 MCG/DOSE AEPB 1 puff BID FLUTICASONE- SALMETEROL 97275757153 Active Ramila Oates POTASSIUM CHLORIDE ER 20 MEQ CR-TABS 1-2 PO BID POTASSIUM CHLORIDE 36167304476 Active Ramila Oates NOVOFINE 30G X 8 MM MISC DIRECTED DX: 250.00 INSULIN PEN NEEDLE 57004036409 Active Ramila Oates PREDNISONE 10 MG TAB 2 PO daily for for 3 days then 1 PO daily for 5 days. PREDNISONE 10627836799 No Longer Active America DE PAZ'Akira NASAL SPRAY (DEXAMETHASONE, GENTAMICIN, SALINE) 2 puffs each nostril TID for [address] DE PAZ'Akira NASAL SPRAY ( DEXAMETHASONE, GENTAMICIN, SALINE) No Longer Active America Hutton CEFDINIR 300 MG CAPS 1 PO BID for 6 weeks CEFDINIR 55442458619 No Longer Active America Hutton PREDNISONE 20 MG TAB 2 pills at once for 2 days then 1 pill daily for 5 days PREDNISONE 11918569179 No Longer Active America Hutton DOXYCYCLINE HYCLATE 100 MG CAP 1 po BID DOXYCYCLINE HYCLATE 32381930736 No Longer Active America Hutton NYSTATIN 363563 U/ML SUSP 5cc PO QID for 7 days NYSTATIN 02219128257 No Longer Active America Hutton NYSTATIN 143278 U/ML SUSP 5cc PO QID for 7 days NYSTATIN 02397829791 No Longer Active America Rivka Hutton ASPIRIN 325 MG TABS 1 PO daily ASPIRIN 21010107955 No Longer Active America Rivka Hutton COZAAR 100 MG TAB 1 PO Daily LOSARTAN POTASSIUM 55988335463 Active Ramila Иван PREDNISONE 20 MG TAB 2 pills at once for 2 days then 1 pill daily for 5 days PREDNISONE 67096147388 No Longer Active America Rivka Hutton DOXYCYCLINE HYCLATE 100 MG CAP 1 po BID DOXYCYCLINE HYCLATE 89190645435 No Longer Active America Rivka Hutton HYZAAR 100-12.5 MG TABS 1 PO daily LOSARTAN POTASSIUM-HCTZ 84808540471 No Longer Active America Rivka Hutton MOBIC 15 MG TABS 1 PO daily for arthritis MELOXICAM 68270182669 Active America Rivka Hutton PREDNISONE 20 MG TAB 2 pills at once for 2 days then 1 pill daily for 5 days PREDNISONE 98910207960 No Longer Active Americaedy Hutton LEVAQUIN 750 MG TABS 1 PO daily LEVOFLOXACIN 60139942714 No Longer Active Americaedy Hutton ANDROGEL PUMP 20.25 MG/ACT (1.62%) GEL rub in two pumps into skin daily TESTOSTERONE 21764150979 No Longer Active America Rivka Hutton ULTRAM 50 MG TAB 1 PO q 6 hrs prn TRAMADOL HCL 47838180995 No Longer Active America Rivka Hutton VITAMIN D 1000 UNIT TABS 1 PO Daily CHOLECALCIFEROL 17109456497 No Longer Active America Rivka Hutton ETODOLAC 400 MG TABS 1 PO BID ETODOLAC 08022637572 No Longer Active America Rivka Hutton LORTAB 7.5 7.5-500 MG TABS 1-2 q 4-6 hrs. prn HYDROCODONE- ACETAMINOPHEN 70083380818 No Longer Active America Rivka Hutton PLAVIX 75 MG TABS 1 po daily CLOPIDOGREL BISULFATE 47201724763 No Longer Active America Rivka Hutton ATARAX 25 MG TAB 1 PO Q6 hours prn HYDROXYZINE HCL Active Rosario Moyer PREDNISONE 20 MG TAB 2 pills at once for 2 days then 1 pill daily for 5 days PREDNISONE 46800809109 No Longer Active America Rivka Hutton ONETOUCH ULTRA BLUE STRP TEST BS QID DX: DIABETES GLUCOSE BLOOD 31814696677 Active Ramila Oates ATARAX 25 MG TAB 1 PO Q6hrs prn HYDROXYZINE HCL No Longer Active Americaedy Hutton PREDNISONE 20 MG TAB 2 pills at once for 2 days then 1 pill daily for 2 days PREDNISONE 16566872826 No Longer Active Americaedy Hutton PEN NEEDLES 5/16" 31G X 8 MM MISC as directed INSULIN PEN NEEDLE 87850534195 No Longer Active Americaedy Hutton NASONEX 50 MCG/ACT SUSP 2 Puffs ea. nostril daily MOMETASONE FUROATE 51507407343 No Longer Active Americaedy Hutton CLARINEX 5 MG TABS 1 po daily DESLORATADINE 56336768633 No Longer Active Americaedy Hutton MIRALAX POWD 1 scoop in 4oz of water PO daily POLYETHYLENE GLYCOL 3350 33972402815 No Longer Active Americaedy Hutton 10% LCD IN THC .1% Apply to arms at bedtime 10% LCD IN THC .1% No Longer Active America Rivka Hutton TRIAMCINOLONE ACETONIDE 0.025 % OINT Apply to rash on arms daily as needed. TRIAMCINOLONE ACETONIDE 54253752496 No Longer Active Americaedy Hutton ONE TOUCH ULTRA TEST STRP Test BS TID DX: Diabetes GLUCOSE BLOOD 81099610001 No Longer Active America Hutton BD U/F SHORT PEN NEEDLE 31G X 8 MM MISC as directed with insulin DX: Diabetes INSULIN PEN NEEDLE 56187100140 No Longer Active America Hutton CIALIS 20 MG TABS 1 PO as directed TADALAFIL 86977589651 No Longer Active America Hutton ONE TOUCH ULTRA MINI W/DEVICE KIT BLOOD GLUCOSE MONITORING SUPPL 66642809197 No Longer Active America Hutton PEN NEEDLES /16" 31G X 8 MM MISC as directed INSULIN PEN NEEDLE 64167104081 No Longer Active America Hutton ATARAX 25 MG TAB 1 PO Q6hrs prn itching HYDROXYZINE HCL No Longer Active America Hutton PREDNISONE 20 MG TAB 2 pills at once for 2 days then 1 pill daily for 2 days PREDNISONE 69368187632 No Longer Active America Hutton METFORMIN HCL 500 MG TABS 1 po daily METFORMIN HCL 20716361262 No Longer Active America Hutton CLOTRIMAZOLE 10 MG TROC Dissolve 1 tab in mouth QID for 14 days CLOTRIMAZOLE 29900918743 No Longer Active Ramila Oates PREDNISONE 20 MG TAB 2 pills at once for 3 days then 1 pill daily for 3 days PREDNISONE 84510622760 No Longer Active America Hutton LEVAQUIN 750 MG TABS 1 PO daily for 7 days LEVOFLOXACIN 88812677366 No Longer Active America Hutton MYCELEX 10 MG TROC Dissovle in mouth QID for 14 days CLOTRIMAZOLE 93070638800 No Longer Active Ramírez Gtz LEVITRA 20 MG TABS 1 po daily prn VARDENAFIL HCL 73722486871 No Longer Active Americaedy Hutton PROAIR HFA AERS Inhale 1-2 puffs 4x daily prn ALBUTEROL SULFATE AERS 39380828907 No Longer Active America Rivka Hutton PREDNISONE 20 MG TAB 3 pills daily at once for 2 days, 2 pills daily at once for 2 days, 1 once daily for 2 days PREDNISONE 03814963907 No Longer Active America Rivka Hutton LEVAQUIN 750 MG TABS 1 PO daily LEVOFLOXACIN 88179194862 No Longer Active Americaedy Hutton HUMALOG KWIKPEN 100 UNIT/ML SOLN 40 units before meals INSULIN LISPRO (HUMAN) 14533943240 No Longer Active Americaedy Hutton MICRONASE 2.5 MG TAB 1 PO BID GLYBURIDE No Longer Active Ramila Oates SYNTHROID 0.025 MG TAB 1 PO Daily on empty stomach LEVOTHYROXINE SODIUM 82382123396 Active Ramila Oates METFORMIN HCL 1000 MG TABS 1 PO BID METFORMIN HCL 82079936845 No Longer Active America Hutton ATROVENT 0.06 % SOLN 2 puffs each nostril TID prn runny nose 2010 IPRATROPIUM BROMIDE 63168523922 No Longer Active Americaedy Hutton VICTOZA 18 MG/3ML SOLN 0.6mg injection once daily for one month, then 1.2mg injection once daily LIRAGLUTIDE 39901001451 No Longer Active Americaedy Hutton FLONASE 50 MCG/DOSE INHALANT 2 puffs each nostril daily FLONASE 50 MCG/ DOSE INHALANT No Longer Active America Hutton ZYRTEC 10 MG TAB 1 PO QD CETIRIZINE HCL No Longer Active Americaedy Hutton FLUCONAZOLE 200 MG TABS 1 PO daily for 5 days FLUCONAZOLE 50589510249 No Longer Active America Rivka Hutton ADVAIR DISKUS 500-50 MCG/DOSE MISC 1 puff BID FLUTICASONE-SALMETEROL 05842786783 No Longer Active America Rivka Hutton LEVAQUIN 500 MG TAB 1 PO QD LEVOFLOXACIN 83879425997 No Longer Active America Rivka Hutton ASTEPRO 137 MCG/SPRAY SOLN 2 puffs each nostril QHS AZELASTINE HCL 53830749180 No Longer Active America Rivka Hutton SPIRIVA HANDIHALER 18 MCG CAPS 1 inhalation daily TIOTROPIUM BROMIDE MONOHYDRATE 13405156190 No Longer Active America Rivka Hutton AZALEA-D 24 HOUR 180-240 MG [id number]-[id number] 1 PO daily FEXOFENADINE-PSEUDOEPHEDRINE 24719605493 No Longer Active America Rivka Hutton BACTRIM DS 800-160 MG TAB 1 PO BID TRIMETHOPRIM- SULFAMETHOXAZOLE 27397647721 No Longer Active America Rivka Hutton LEVAQUIN 500 MG TAB 1 PO QD LEVOFLOXACIN 42649811619 No Longer Active America Rivka Hutton PREDNISONE 20 MG TAB 2 pills at once for 2 days then 1 pill daily for 2 days PREDNISONE 51211862249 No Longer Active America Rivka Hutton ROBITUSSIN [...] 1 po daily for 7 days LEVOFLOXACIN 21458279290 No Longer Active America Hutton BACTRIM DS 800-160 MG TAB 1 PO BID TRIMETHOPRIM- SULFAMETHOXAZOLE 38914026480 No Longer Active America Hutton HUMALOG PEN 100 UNIT/ML SOLN 25 units twice daily INSULIN LISPRO (HUMAN) 25604059931 No Longer Active America Hutton LANTUS FOR OPTICLIK 100 UNIT/ML SOLN 20 units injection every night 09/09 INSULIN GLARGINE 80222362056 No Longer Active America Hutton ROBITUSSIN A-C 10-100 MG/5ML SYRUP 1 teaspoon PO Q 4-6 hr prn ROBITUSSIN A-C 10-100 MG/5ML SYRUP No Longer Active Ramila DE PAZ'Akira NASAL SPRAY (DEXAMETHASONE, GENTAMICIN, SALINE) 2 puffs each nostril TID for [address] STRAUSS NASAL SPRAY ( DEXAMETHASONE, GENTAMICIN, SALINE) No Longer Active America Hutton AUGMENTIN 875-125 MG TAB 1 PO BID AMOXICILLIN-POT CLAVULANATE 67775923705 No Longer Active America Hutton ROBITUSSIN A-C 10-100 MG/5ML SYRUP 1 teaspoon PO Q 4-6 hr prn ROBITUSSIN A-C 10-100 MG/5ML SYRUP No Longer Active America STRAUSS NASAL SPRAY (DEXAMETHASONE, GENTAMICIN, SALINE) 2 puffs each nostril TID for [address] STRAUSS NASAL SPRAY ( DEXAMETHASONE, GENTAMICIN, SALINE) No Longer Active Barron [place] LEVAQUIN 500 MG TAB 1 PO QD LEVOFLOXACIN 16997413308 No Longer Active Barron Joi PREDNISONE 20 MG TAB 2 pills at once for 2 days then 1 pill daily for 2 days PREDNISONE 30649989633 No Longer Active America STRAUSS NASAL SPRAY (DEXAMETHASONE, GENTAMICIN, SALINE) 2 puffs each nostril TID for [address] STRAUSS NASAL SPRAY ( DEXAMETHASONE, GENTAMICIN, SALINE) No Longer Active America Hutton AMOXICILLIN 500 MG CAP 1 PO TID AMOXICILLIN 93159095157 No Longer Active America Hutton LISINOPRIL 10 MG TABS 1 PO Daily LISINOPRIL 05244167744 No Longer Active Ramila Oates FLOMAX 0.4 MG CP24 1 PO QHS for prostate TAMSULOSIN HCL 96208121982 No Longer Active America Hutton MAGNESIUM OXIDE 400 MG TABS 1 PO daily MAGNESIUM OXIDE 92783374502 Active Suyapa Shahnaz LASIX 20 MG TAB Take 2 PO BID FUROSEMIDE 58533079908 Active Ramila Oates KEFLEX 500 MG CAP 1 PO TID for 7 days CEPHALEXIN 81756795572 No Longer Active America Hutton ATROVENT 0.06 % SOLN 2 puffs each nostril TID prn runny nose 2008 IPRATROPIUM BROMIDE 15523608531 No Longer Active America Hutton PREDNISONE 20 MG TAB 3 pills daily at once for 3 days, 2 pills daily at once for 3 days, 1 once daily for 3 days PREDNISONE 74154820343 No Longer Active America Hutton LEVAQUIN 500 MG TAB 1 PO QD LEVOFLOXACIN 99913373042 No Longer Active America Hutton CRESTOR 5 MG TABS 1 PO daily ROSUVASTATIN CALCIUM 43251474574 Active America Hutton PREDNISONE 20 MG TAB 2 pills at once for 2 days then 1 pill daily for 2 days PREDNISONE 45392779336 No Longer Active America STRAUSS NASAL SPRAY (DEXAMETHASONE, GENTAMICIN, SALINE) 2 puffs each nostril TID for [address] STRAUSS NASAL SPRAY ( DEXAMETHASONE, GENTAMICIN, SALINE) No Longer Active America Hutton AUGMENTIN 875-125 MG TAB 1 PO BID AMOXICILLIN-POT CLAVULANATE 92408523503 No Longer Active America Hutton BIAXIN 500 MG TAB 1 PO BID for 7 days CLARITHROMYCIN 04908523523 No Longer Active [facility] ALBUTEROL SULFATE (2.5 MG/3ML) 0.083% NEBU 1 treatment QID ALBUTEROL SULFATE 07516794272 Active America Hutton ROBITUSSIN A-C 10-100 MG/5ML SYRUP 1 teaspoon PO Q 4-6 hr prn ROBITUSSIN A-C 10-100 MG/5ML SYRUP 57181073342 No Longer Active Y Y DOXYCYCLINE HYCLATE 100 MG CAP 1 po BID. Take with food to avoid nausea. 2007 DOXYCYCLINE HYCLATE 82895431603 No Longer Active Y Y BIAXIN 500 MG TAB 1 PO BID for lung infection CLARITHROMYCIN 77246611221 No Longer Active America Hutton MEVACOR 40 MG TABS 1 PO daily LOVASTATIN 73219493746 No Longer Active America Hutton BYETTA 10 MCG PEN SOLN i injection am and at supper(On hold 09/04/07 while re- starting Humalog) EXENATIDE SOLN 95840626887 No Longer Active America Hutton LEVITRA 10 MG TABS 1 PO as directed VARDENAFIL HCL 94186853605 No Longer Active Tyler Bolton AUGMENTIN 500-125 MG TAB 1 PO BID AMOXICILLIN-POT CLAVULANATE 05107860636 No Longer Active Ramila STRAUSS NASAL SPRAY [...] 1 MG TABS as directed VARENICLINE TARTRATE 19541323537 No Longer Active America Rivka Hutton LEVEMIR FLEXPEN SOLN 15 units QHS INSULIN DETEMIR SOLN 32367914376 No Longer Active America Rivka Hutton CIALIS 20 MG TABS 1po daily prn TADALAFIL 38235691159 No Longer Active America Rivka Hutton VIAGRA 50 MG TABS Take 1 PO prn SILDENAFIL CITRATE 17863183202 No Longer Active America Rivka Hutton LOTRISONE 1-0.05 % CREA Apply to both arms BID CLOTRIMAZOLE-BETAMETHASONE 03183669893 No Longer Active America Rivka Hutton LEVAQUIN 500 MG TAB 1 PO QD LEVOFLOXACIN 41465395017 No Longer Active Americaedy Hutton SPIRONOLACTONE 25 MG TABS 2 po daily SPIRONOLACTONE 99052420909 Active Ramila Oates TAMIFLU 75 MG CAPS 1 po BID x 5 days OSELTAMIVIR PHOSPHATE 76897558616 No Longer Active America Rivka Hutton LANTUS FOR OPTICLIK 100 UNIT/ML SOLN 10 units QHS INSULIN GLARGINE 57712939066 No Longer Active America Rivka Hutton ATROVENT 0.06 % SOLN 2 puffs each nostril BID x 7 days IPRATROPIUM BROMIDE 52001292265 No Longer Active America Rivka Hutton AUGMENTIN 875-125 MG TABS 1 po BID for 7 days. AMOXICILLIN-POT CLAVULANATE 58873445211 No Longer Active America Rivka Hutton AZALEA 180 MG TABS 1 po daily FEXOFENADINE HCL 99196192487 No Longer Active America Hutton PYRIDIUM 200 MG TABS 1 po TID for 3 days PHENAZOPYRIDINE HCL 29736407173 No Longer Active America Hutton ZAROXOLYN 5 MG TABS 1 PO daily METOLAZONE 91799036208 Active Ramila Oates NOVOLOG PENFILL SOLN 4 units before meals INSULIN ASPART SOLN 31039775572 No Longer Active America Tineo Hutton Immunizations Vaccine Administration Date Value Standard [...] % Encounters Code Encounter Date Provider Facility CPT-07676 Ofc Vst, Est Level III 17:18:19 CDT America Rivka Hutton, DO, FACP CPT-01499 Ofc Vst, Est Level IV 15:55:02 CDT America Rivka Hutton, DO, FACP CPT-15482 Ofc Vst, Est Level IV 12:24:37 [facility] Americaedy Hutton, DO, FACP CPT-77304 Ofc Vst, Est Level IV 17:38:12 CDT Americaedy Hutton, DO, FACP CPT-64430 Ofc Vst, Est Level III 14:37:41 CDT America Rivka Hutton, DO, FACP CPT-66860 Ofc Vst, Est Level III 12:43:48 [facility] America Hutton, DO, FACP CPT-79510 Ofc Vst, Est Level IV 10:57:08 [facility] America Hutton, DO, FACP CPT-38809 Ofc Vst, Est Level IV 16:59:13 CDT Americaedy Hutton, DO, FACP CPT-64939 Ofc Vst, Est Level IV 16:43:56 CDT Americaedy [facility] CPT-34759 Ofc Vst, Est Level III 16:27:39 CDT Americaedy Hutton, DO, FACP CPT-19737 Ofc Vst, Est Level IV 14:14:50 CDT America Rivka Hutton America S Hutton, DO, FACP CPT-91128 Ofc Vst, Est Level III 11:30:50 CDT America Rivka Champion Anni, DO, FACP CPT-50598 Ofc Vst, Est Level III 16:29:28 CDT America Rivka Champion Hutton, DO, FACP CPT-90572 Ofc Vst, Est Level IV 16:50:49 [facility] Americaedy Champion nAni, DO, FACP CPT-38635 Ofc Vst, Est Level IV 11:54:05 CDT America Rivka Champion Anni, DO, FACP CPT-75744 Ofc Vst, Est Level IV 10:52:34 CDT Americaedy Champion Anni, DO, FACP CPT-40343 Ofc Vst, Est Level IV 11:30:28 [facility] America Champion Anni, DO, FACP CPT-67839 Ofc Vst, Est Level IV 10:48:08 [facility] America Champion Anni, DO, FACP CPT-66249 Ofc Vst, Est Level IV 11:36:11 CDT Americaedy Champion Anni, DO, FACP CPT-23918 Ofc Vst, Est Level IV 10:59:29 CDT America Rivka Champion Anni, DO, FACP CPT-73912 Ofc Vst, Est Level IV 11:57:28 CDT America Rivka Champion Anni, DO, FACP CPT-03765 Ofc Vst, Est Level IV 11:04:42 [facility] America Champion Anni, DO, FACP CPT-72754 Ofc Vst, Est Level V 11:03:29 [facility] America Champion Anin, DO, FACP CPT-69249 Ofc Vst, Est Level IV 10:53:30 CDT America Rivka Champion Hutton, DO, FACP CPT-71270 Ofc Vst, Est Level IV 11:12:42 CDT America Rivka Champion Hutton, DO, FACP CPT-58974 Ofc Vst, Est Level IV 11:25:49 CDT America Rivka Champion Hutton, DO, FACP CPT-27060 Ofc Vst, Est Level IV 14:19:05 CDT America Rivka Champion Hutton, DO, FACP CPT-58540 Ofc Vst, Est Level V 15:01:50 [facility] America Hutton [place] [facility] CPT-12677 Ofc Vst, Est Level IV 11:18:30 [facility] America Rivka Champion Anni, DO, FACP CPT-55588 Ofc Vst, Est Level IV 14:33:19 CDT America Rivka Champion Hutton, DO, FACP CPT-26253 Ofc Vst, Est Level IV 14:24:09 CDT America Rivka Champion Anni, DO, FACP CPT-61700 Ofc Vst, Est Level IV 16:24:25 CDT Americaedy Hutton [place] [facility] CPT-84703 Ofc Vst, Est Level V 12:06:18 CDT America Rivka Champion Hutton, DO, FACP CPT-51930 Ofc Vst, Est Level IV 11:32:52 CDT America Rivka [place] Hutton, DO, FACP CPT-94912 Ofc Vst, Est Level V 15:54:46 CDT America Rivka Champion Anni, DO, FACP CPT-37199 Ofc Vst, Est Level IV 14:32:33 CDT America Rivka Champion Hutton, DO, FACP CPT-26445 Ofc Vst, Est Level IV 14:06:04 [facility] America Champion Hutton, DO, FACP CPT-26284 Ofc Vst, Est Level IV 10:36:45 [facility] America Champion Hutton, DO, FACP CPT-62489 Ofc Vst, Est Level IV 13:12:16 CDT America Rivka Champion Anni, DO, FACP CPT-08361 Ofc Vst, Est Level IV 15:20:36 CDT America Rivka Champion Anni, DO, FACP CPT-13845 Ofc Vst, Est Level III 12:05:11 CDT America Rivka Champion Anni, DO, FACP CPT-77731 Ofc Vst, Est Level III 13:05:33 CDT America Rivka Champion Anni, DO, FACP CPT-14937 Ofc Vst, Est Level IV 14:09:19 CDT America Rivka Champion Anni, DO, FACP CPT-06766 Ofc Vst, Est Level IV 14:00:30 [facility] America Champion Anni, DO, FACP CPT-76284 Ofc Vst, Est Level IV 17:29:08 [facility] America Champion Hutton, DO, FACP CPT-05293 Ofc Vst, Est Level III 13:45:01 [facility] America Cross [place] Hutton, DO, FACP CPT-76171 Ofc Vst, Est Level IV 15:24:26 [facility] America [place] Hutton, DO, FACP CPT-28291 Ofc Vst, Est Level IV 15:54:58 [facility] America Rivka Champion Anni, DO, FACP CPT-66043 Ofc Vst, Est Level IV 10:17:27 [facility] America Betancuri Akira DO Anni, FACP CPT-04808 Ofc Vst, Est Level IV 11:40:37 CDT America Tineo Hutton Americaedy Hutton DO, FACP CPT-16291 Ofc Vst, New Level IV 17:22:52 CDT America Betancuri Akira DO Anni, FACP Procedures Code Procedure Name Date Entry Date Standard Description CPT-92864 Preventive, Est, (40-64) 13:27:46 CDT CPT-22095 Preventive, Est, (40-64) 21:40:47 CDT CPT-66625 Preventive, Est, (40-64) 20:22:44 [facility] CPT-24629 Injection 11:25:49 CDT CPT-40727 Injection 14:19:05 CDT CPT-89576 Injection 14:33:19 CDT CPT-63384 Injection 14:24:09 CDT CPT-76474 Injection 16:24:25 CDT CPT-97383 Injection 14:32:33 CDT CPT-65088 Injection 14:06:04 [facility] CPT-43409 Biopsy, skin/subcut/mucous membrane; sngl lsn 14:21:51 CDT CPT-G0008 Administration Influenza Vaccine 11:40:37 CDT CPT-80954 Influenza Vaccine 11:40:37 CDT
--- NOTE | 2017-04-21 14:36 | ED Respiratory ---
General Chief Complaint: Respiratory Problems Stated Complaint: SOA Source: patient History of Present Illness Time seen by provider: 14:15 Initial Comments PT ARRIVES VIA POV FROM HOME, IN ELECTRIC WHEELCHAIR C/O SHORTNESS OF BREATH--CHRONIC PROBLEM, WORSE FOR THE LAST SEVERAL DAYS AND TODAY WAS THE WORST NO CHEST PAIN HAS CHRONIC LEG SWELLING, HAD BEEN BETTER, THEN STARTED TO SWELL MORE THE LAST MONTH OR TWO AND WORSE FOR THE LAST FEW DAYS HAS HAD MINIMAL COUGH TODAY, BUT HAS BEEN COUGHING MORE THAN NORMAL LATELY--NON- PRODUCTIVE. COUGHED SO HARD A FEW DAYS AGO THAT HE PASSED OUT. NO FEVER/SWEATS/CHILLS PT HAS BEEN ON OXYGEN IN THE PAST, STATES HE WAS ON IT FOR 10 YEARS "THEN MEDICARE TOOK IT AWAY" --NONE FOR A COUPLE OF YEARS DOES HAVE NEBULIZER AND USED IT X 2 TODAY WITH SLIGHT IMPROVEMENT PT WITH HX OF ATRIAL FIBRILLATION--IS ON ELIQUIS AND PLAVIX PT WITH HX OF CAD--S/P CABG AND STENTS X 2 PT ALSO WITH COPD PCP: DR. PAT MAINTENANCE PLUMBER: DR. PENALOZA LEGGER PRESS OPERATOR: DR. MATTHEWS Allergies and Home Medications Allergies Coded Allergies: Mxlklja-Wjx-Ahg Reductase Inhibitor (Verified Allergy, Unknown, 11/27/15) codeine (Verified Allergy, Unknown, 11/27/15) fish oil (Verified Allergy, Unknown, 11/27/15) Home Medications Albuterol Sulfate 2.5 Mg/3 Ml Vial.neb, 2.5 MG NEB QID, (Reported) Albuterol Sulfate 18 Gm Hfa.aer.ad, 1 PUFF IH Q4H PRN for SHORTNESS OF BREATH, ( Reported) Apixaban 5 Mg Tablet, 5 MG PO BID, (Reported) Cetirizine HCl/Pseudoephedrine 1 Each Tab.er.12h, 1 TAB PO BID, (Reported) Clopidogrel Bisulfate 75 Mg Tablet, 75 MG PO DAILY, (Reported) Diltiazem HCl 240 Mg Cap.er.deg, 240 MG PO DAILY, (Reported) Fluticasone/Salmeterol 1 Each Blst.w.dev, 1 PUFF IH BID, (Reported) Hydrocodone/Acetaminophen 1 Each Tablet, 1 TAB PO Q6H PRN for PAIN, (Reported) Insulin Aspart 300 Units/3 Ml Solution, 20 UNITS SQ ACHS, (Reported) WILL HOLD IF BS IS 140-150 Insulin Glargine,Hum.rec.anlog 100 Unit/1 Ml Insuln.pen, 20 UNITS SQ HS, ( Reported) Ipratropium Modale 15 Ml Naspr, 1 SPRAY NSEACH HS, (Reported) LAST FILLED 12-06-15 Lactulose 10 Gm/15 Ml Solution, 60 ML PO HS PRN for CONSTIPATION, (Reported) Levothyroxine Sodium 25 Mcg Tablet, 25 MCG PO DAILY, (Reported) Metoprolol Succinate 50 Mg Tab.er.24h, 50 MG PO DAILY, (Reported) Pantoprazole Sodium 40 Mg Tablet.dr, 40 MG PO DAILY, #90 Prescribed by: HAWK GREENWOOD on 08/30/16 1240 Potassium Chloride 20 Meq Tab.er.prt, 40 MEQ PO BID, (Reported) TAKES 2 (20MEQ) TABLETS Rosuvastatin Calcium 5 Mg Tablet, 5 MG PO HS, (Reported) Rosuvastatin Calcium 5 Mg Tablet, 5 MG PO DAILY, (Reported) Tiotropium Modale 4 Gm Mist.inhal, 1 PUFF IH DAILY, (Reported) LAST FILLED 05-20-16 Constitutional: no symptoms reported EENTM: no symptoms reported Respiratory: see HPI, dyspnea on exertion, short of breath Cardiovascular: No chest pain, edema, No palpitations, vascular heart diseas Gastrointestinal: no symptoms reported Genitourinary: no symptoms reported Musculoskeletal: see HPI Skin: no symptoms reported Psychiatric/Neurological: No Symptoms Reported Hematologic/Lymphatic: No Symptoms Reported Immunological/Allergic: no symptoms reported Past Asneyuz-Qbnofm-Lnungy Hx Patient Social History Alcohol Use: Occasionally Uses Alcohol Beverage of Choice: Other Recreational Drug Use: No Smoking Status: Former Smoker (1 PPD, QUIT APPROXIMATELY 2006, PER PT ON ) Type Used: Cigarettes Former Smoker, Quit: Aug 13, 1996 Recent Foreign Travel: No Contact w/Someone Who Travel: No Recent Hopitalizations: No Physical Abuse: No Sexual Abuse: No Immunizations Up To Date Tetanus Booster (TDap): Less than 5yrs Date of Pneumonia Vaccine: May 13, 2015 Date of Influenza Vaccine: May 13, 2016 Seasonal Allergies Seasonal Allergies: Yes Surgeries History of Surgeries: Yes (CABG; STENTS X 2 ) Surgeries: Adenoidectomy, Cardiac, CABG, Coronary Stent, Tonsillectomy, Transurethral Resection, Vasectomy Respiratory History of Respiratory Disorde: Yes (SEVERE ASTHMA/COPD, CHRONIC RESP/LUNG INFECTION; HX OF PEANUT ASPIRATION) Respiratory Disorders: Asthma, Pneumonia, Chronic Bronchitis, Sleep Apnea, COPD Currently Using CPAP: Yes Cardiovascular History of Cardiac Disorders: Yes Cardiac Disorders: Chronic Edema/Swelling, Coronary Artery Disease, Heart Attack, High Cholesterol, Hypertension Neurological History of Neurological Disord: Yes Neurological Disorders: Neuropathy Reproductive System Hx Reproductive Disorders: No Genitourinary History of Genitourinary Disor: Yes Genitourinary Disorders: Benign Prostatic Hyperpl, UTI-Chronic Gastrointestinal History of Gastrointestinal Di: Yes Gastrointestinal Disorders: Gastroesophageal Reflux, Irritable Bowel Musculoskeletal History of Musculoskeletal Dis: Yes (MINIMALLY AMBULATORY DUE TO OBESITY--USES ELECTRIC WHEELCHAIR) Musculoskeletal Disorders: Arthritis Endocrine History of Endocrine Disorders: Yes (MORBID OBESITY) Endocrine Disorders: Diabetes, Insulin dep, Hypothyroidsim HEENT History of HEENT Disorders: No Cancer History of Cancer: No Psychosocial History of Psychiatric Problem: Yes Behavioral Health Disorders: Sleep Difficulties, Anxiety Suicide Risk Score: 0 Integumentary History of Skin or Integumenta: Yes Skin/Integumentary Disorders: Pruritis Blood Transfusions History of Blood Disorders: No Adverse Reaction to a Blood Tr: No Family Medical History Significant Family History: No Pertinent Family Hx Family Medial History: Cancer 03 FATHER Congestive heart failure 03 MOTHER Family history: Arthritis 03 MOTHER Family history: Asthma 03 MOTHER Family history: Cardiovascular disease 03 MOTHER Family history: Diabetes mellitus 09 BROTHER Family history: Gastrointestinal disease 03 FATHER History of drug abuse 09 BROTHER Physical Exam Vital Signs Vital Sign - Last 12Hours 04/21/17 14:15 Temp 98.9 Pulse 66 Resp 26 B/P (MAP) 120/72 Pulse Ox 94 O2 Delivery Nasal Cannula O2 Flow Rate 2.00 Capillary Refill : General Appearance: obese, other (MILDLY DYSPNEIC WITH MINIMAL EXERTION) HEENT: PERRL/EOMI Neck: normal inspection Respiratory: decreased breath sounds (DIMISHED IN BASES BILATERALLY), No rales , No rhonchi, No wheezing, other (MILDLY DYSPNEIC WITH MINIMAL EXERTION) Cardiovascular: no murmur, irregularly irregular Gastrointestinal: non tender, soft Extremities: non-tender, no calf tenderness, pedal edema (2-3 + PITTING EDEMA BILATERALLY--DIFFICULT TO DETERMINE EXACTLY HOW MUCH EDEMA PT HAS DUE TO BODY HABITUS) Neurologic/Psychiatric: tube worker II-XII nml as tested, no motor/sensory deficits ( GROSSLY INTACT), alert, normal mood/affect, oriented x 3 Skin: normal color, warm/dry Laceration Repair : Suture Size: 4-0 Progress/Results/Core Measures Results/Orders Lab Results Laboratory Tests Test 04/21/17 14:25 Range/Units White Blood Count 11.8 H 4.3-11.0 10^3/uL Red Blood Count 4.10 L 4.35-5.85 10^6/uL Hemoglobin 11.4 L 13.3-17.7 G/DL Hematocrit 35 L 40-54 % Mean Corpuscular Volume 85 80-99 FL Mean Corpuscular Hemoglobin 28 25-34 PG Mean Corpuscular Hemoglobin Concent 33 32-36 G/DL Red Cell Distribution Width 17.5 H 10.0-14.5 % Platelet Count 255 130-400 10^3/uL Mean Platelet Volume 10.4 7.4-10.4 FL Neutrophils (%) (Auto) 62 42-75 % Lymphocytes (%) (Auto) 19 12-44 % Monocytes (%) (Auto) 12 0-12 % Eosinophils (%) (Auto) 6 0-10 % Basophils (%) (Auto) 1 0-10 % Neutrophils # (Auto) 7.3 1.8-7.8 X 10^3 Lymphocytes # (Auto) 2.3 1.0-4.0 X 10^3 Monocytes # (Auto) 1.5 H 0.0-1.0 X 10^3 Eosinophils # (Auto) 0.8 H 0.0-0.3 10^3/uL Basophils # (Auto) 0.1 0.0-0.1 10^3/uL Prothrombin Time 18.6 H 12.2-14.7 SEC INR Comment 1.6 H 0.8-1.4 Activated Partial Thromboplast Time 40 H 24-35 SEC Sodium Level 138 135-145 MMOL/L Potassium Level 3.9 3.6-5.0 MMOL/L Chloride Level 105 98-107 MMOL/L Carbon Dioxide Level 22 21-32 MMOL/L Anion Gap 11 5-14 MMOL/L Blood Urea Nitrogen 21 H 7-18 MG/DL Creatinine 1.60 H 0.60-1.30 MG/DL Estimat Glomerular Filtration Rate 43 BUN/Creatinine Ratio 13 Glucose Level 87 70-105 MG/DL Calcium Level 9.5 8.5-10.1 MG/DL Magnesium Level 2.2 1.8-2.4 MG/DL Total Bilirubin 0.6 0.1-1.0 MG/DL Aspartate Amino Transf (AST/SGOT) 21 5-34 U/L Alanine Aminotransferase (ALT/SGPT) 22 0-55 U/L Alkaline Phosphatase 88 40-136 U/L Total Creatine Kinase 73 30-200 U/L Creatine Kinase MB 2.0 <6.6 NG/ML Troponin I < 0.30 <0.30 NG/ML B-Type Natriuretic Peptide 168.0 H <100.0 PG/ML Total Protein 8.2 6.4-8.2 GM/DL Albumin 4.1 3.2-4.5 GM/DL My Orders Orders - LORENE GOMEZ DO Saline Lock/Iv-Start (04/21/17 14:15) Ekg Tracing (04/21/17 14:15) O2 (04/21/17 14:15) Monitor-Rhythm Ecg Trace Only (04/21/17 14:15) BNP (04/21/17 14:15) Cbc With Automated Diff (04/21/17 14:15) Comprehensive Metabolic Panel (04/21/17 14:15) Creatine Kinase (04/21/17 14:15) Creatine Kinase Mb (04/21/17 14:15) Magnesium (04/21/17 14:15) Protime With Inr (04/21/17 14:15) Partial Thromboplastin Time (04/21/17 14:15) Troponin I (04/21/17 14:15) Chest 1 View, Ap/Pa Only (04/21/17 14:15) Methylprednisolone Sod Succ (Solu-Medrol (04/21/17 16:15) Furosemide Injection (Lasix Injection) (04/21/17 16:15) Albuterol/Ipra Inhalation Soln (Duoneb I (04/21/17 16:15) Dexamethasone Injection (Decadron Inject (04/21/17 16:15) Rt Request For Service (04/21/17 16:13) Svn Sm Volume Nebulizer Rt-Rfs (04/21/17 16:13) Svn Sm Volume Nebulizer Rt-Rfs (04/21/17 16:13) Medications Given in ED Current Medications Medications Dose Ordered Sig/Jt Route Start Time Stop Time Status Last Admin Dose Admin Albuterol/ Ipratropium 3 ml ONCE ONCE INH 04/21/17 16:15 04/21/17 16:16 DC 04/21/17 16:32 3 ML Dexamethasone Sodium Phosphate 20 mg ONCE ONCE IH 04/21/17 16:15 04/21/17 16:16 DC 04/21/17 16:15 20 MG Furosemide 80 mg ONCE ONCE IVP 04/21/17 16:15 04/21/17 16:16 DC 04/21/17 16:21 80 MG Methylprednisolone Sodium Succinate 125 mg ONCE ONCE IVP 04/21/17 16:15 04/21/17 16:16 DC 04/21/17 16:13 125 MG Vital Signs/I&O Vital Sign - Last 12Hours 04/21/17 04/21/17 14:15 14:45 Temp 98.9 Pulse 66 Resp 26 B/P (MAP) 120/72 Pulse Ox 94 O2 Delivery Nasal Cannula Nasal Cannula O2 Flow Rate 2.00 2.00 Progress Note : Progress Note O2 SATS 90-92 ON ROOM AIR, UP TO 96% ON 2L/NC, BUT STILL DYSPNEIC AT REST AND VERY DYSPNEIC WITH VERY MINIMAL ACTIVITY SUCH TRANSFERRING FROM CART TO WHEEL CHAIR OR VICE-VERSA. NO DETERIORATION IN PT'S CONDITION DURING ER STAY ECG Initial ECG Impression Time: 14:17 Initial ECG Rate: 68 Initial ECG Rhythm: A Fib/Flutter Initial ECG Comparisson: No Previous ECG Available Diagnostic Imaging Comments CXR--CARDIOMEGALY WITH PULMONARY VASCULAR CONGESTION--PER RADIOLOGIST REPORT @ 1606 Reviewed: Reviewed by Me Departure Communication (Admissions) Progress Notes 1614--ATTEMPTING TO CONTACT DR. DELACRUZ, HOSPITALIST, MESSAGE LEFT ON CELL PHONE 1626--SPOKE WITH DR. DELACRUZ, ACCEPTS PT FOR ADMIT. WILL BE DOWN TO SEE PT 1630--DR. DELACRUZ HERE, CARE TURNED OVER TO HER Impression Impression: Primary Impression: COPD (chronic obstructive pulmonary disease) Additional Impressions: CHF (congestive heart failure) Chronic atrial fibrillation Morbid obesity IDDM (insulin dependent diabetes mellitus) Hypoxia Disposition: ADMITTED INPATIENT Condition: Stable Admissions Decision to Admit Reason: Admit from ER (General) Decision to Admit/Date: Apr 21, 2017 Time/Decision to Admit Time: 16:25 Departure-Patient Inst. Referrals: JENNIFER GODOY DO (PCP) Primary Care Physician LORENE GOMEZ DO Apr 21, 2017 14:36
--- OUTSIDE RECORDS SUMMARY | 2017-04-21 14:36 | XMS REPORT | Clinical Summary ---
Author Author User, Direct Access Software Organization America Hutton DO, FACP Address Unknown [...] Coronary atherosclerosis of unspecified type of vessel, tlingit & ha[place] or graft CHRONIC AIRWAY OBSTRUCTION (COPD) 496 [...] 100 U/ML SOLN 20 units before meals and QHS INSULIN ASPART 37483750390 Active America Hutton GENTAMICIN SULFATE 0.1 % CREA Apply to affected areas BID GENTAMICIN SULFATE 56646171859 Active Ramila Oates ATROVENT 0.06 % SOLN 2 puffs each nostril TID prn runny nose 2014 IPRATROPIUM BROMIDE 24497596600 No Longer Active Ramila Oates NYSTATIN 015382 U/ML SUSP 5cc PO QID for 7 days NYSTATIN 85275692004 No Longer Active America Hutton TAMIFLU 75 MG CAPS 1 po BID OSELTAMIVIR PHOSPHATE 41060619611 No Longer Active America Hutton NYSTATIN 039263 UNIT/GM CREA apply to affected areas BID for 7 days NYSTATIN 75913015965 No Longer Active Ramila Oates SPIRIVA HANDIHALER 18 MCG CAPS ONE INHALATION DAILY TIOTROPIUM BROMIDE MONOHYDRATE 85314327091 Active America Hutton ATROVENT HFA 17 MCG/ACT AERS 2 puffs BID IPRATROPIUM BROMIDE HFA 85738729266 No Longer Active America Hutton PERFOROMIST 20 MCG/2ML NEBU 1 vial Neb treatment BID FORMOTEROL FUMARATE 53164839957 No Longer Active America Hutton VENTOLIN HFA 108 (90 BASE) MCG/ACT AERS 2 puffs Q 4 hours prn ALBUTEROL SULFATE 18727944180 No Longer Active America Hutton HYDROXYZINE HCL 25 MG TABS 1 PO Q 6HRS PRN HYDROXYZINE HCL 00977000633 Active Ramila Oates SINGULAIR 10 MG TABS 1 PO AT Q HS MONTELUKAST SODIUM 61872993220 Active Ramila Oates LANTUS SOLOSTAR 100 UNIT/ML SOLN 20 units at night INSULIN GLARGINE 71351831287 Active America Hutton AMLACTIN 12 % LOTN Apply a small amount to affected areas BID AMMONIUM LACTATE 43694735206 No Longer Active America Hutton ADVAIR DISKUS 500-50 MCG/DOSE AEPB 1 puff BID FLUTICASONE- SALMETEROL 40134352399 Active Ramila Oates POTASSIUM CHLORIDE ER 20 MEQ CR-TABS 1-2 PO BID POTASSIUM CHLORIDE 64351478354 Active Ramila Oates NOVOFINE 30G X 8 MM MISC DIRECTED DX: 250.00 INSULIN PEN NEEDLE 52868595085 Active Ramila Oates PREDNISONE 10 MG TAB 2 PO daily for for 3 days then 1 PO daily for 5 days. PREDNISONE 45038774341 No Longer Active America STRAUSS NASAL SPRAY (DEXAMETHASONE, GENTAMICIN, SALINE) 2 puffs each nostril TID for [address] STRAUSS NASAL SPRAY ( DEXAMETHASONE, GENTAMICIN, SALINE) No Longer Active America Hutton CEFDINIR 300 MG CAPS 1 PO BID for 6 weeks CEFDINIR 29445958041 No Longer Active America Hutton PREDNISONE 20 MG TAB 2 pills at once for 2 days then 1 pill daily for 5 days PREDNISONE 22156450764 No Longer Active America Hutton DOXYCYCLINE HYCLATE 100 MG CAP 1 po BID DOXYCYCLINE HYCLATE 41937509974 No Longer Active America Hutton NYSTATIN 387373 U/ML SUSP 5cc PO QID for 7 days NYSTATIN 09101829708 No Longer Active America Rivka Hutton NYSTATIN 931998 U/ML SUSP 5cc PO QID for 7 days NYSTATIN 42259597490 No Longer Active America Rivka Hutton ASPIRIN 325 MG TABS 1 PO daily ASPIRIN 21532363972 No Longer Active America Rivka Hutton COZAAR 100 MG TAB 1 PO Daily LOSARTAN POTASSIUM 32432911139 Active Ramila Oates PREDNISONE 20 MG TAB 2 pills at once for 2 days then 1 pill daily for 5 days PREDNISONE 05188739990 No Longer Active Americaedy Hutton DOXYCYCLINE HYCLATE 100 MG CAP 1 po BID DOXYCYCLINE HYCLATE 22055123087 No Longer Active America Rivka Hutton HYZAAR 100-12.5 MG TABS 1 PO daily LOSARTAN POTASSIUM-HCTZ 55979419440 No Longer Active America Rivka Hutton MOBIC 15 MG TABS 1 PO daily for arthritis MELOXICAM 16460528911 Active America Rivka Hutton PREDNISONE 20 MG TAB 2 pills at once for 2 days then 1 pill daily for 5 days PREDNISONE 65488878948 No Longer Active Americaedy Hutton LEVAQUIN 750 MG TABS 1 PO daily LEVOFLOXACIN 63346427920 No Longer Active Americaedy Hutton ANDROGEL PUMP 20.25 MG/ACT (1.62%) GEL rub in two pumps into skin daily TESTOSTERONE 41753334294 No Longer Active America Rivka Hutton ULTRAM 50 MG TAB 1 PO q 6 hrs prn TRAMADOL HCL 17911366851 No Longer Active Americaedy Hutton VITAMIN D 1000 UNIT TABS 1 PO Daily CHOLECALCIFEROL 06459478205 No Longer Active America Rivka Hutton ETODOLAC 400 MG TABS 1 PO BID ETODOLAC 15481439139 No Longer Active America Rivka Hutton LORTAB 7.5 7.5-500 MG TABS 1-2 q 4-6 hrs. prn HYDROCODONE- ACETAMINOPHEN 64590139196 No Longer Active America Rivka Hutton PLAVIX 75 MG TABS 1 po daily CLOPIDOGREL BISULFATE 95109804188 No Longer Active America Rivka Hutton ATARAX 25 MG TAB 1 PO Q6 hours prn HYDROXYZINE HCL Active Rosario Moyer PREDNISONE 20 MG TAB 2 pills at once for 2 days then 1 pill daily for 5 days PREDNISONE 55689458114 No Longer Active America Rivka Hutton ONETOUCH ULTRA BLUE STRP TEST BS QID DX: DIABETES GLUCOSE BLOOD 40080480874 Active Ramila Иван ATARAX 25 MG TAB 1 PO Q6hrs prn HYDROXYZINE HCL No Longer Active America Rivka Hutton PREDNISONE 20 MG TAB 2 pills at once for 2 days then 1 pill daily for 2 days PREDNISONE 93140248153 No Longer Active Americaedy Hutton PEN NEEDLES 5/16" 31G X 8 MM MISC as directed INSULIN PEN NEEDLE 47238782538 No Longer Active America Rivka Hutton NASONEX 50 MCG/ACT SUSP 2 Puffs ea. nostril daily MOMETASONE FUROATE 51684934567 No Longer Active America Rivka Hutton CLARINEX 5 MG TABS 1 po daily DESLORATADINE 18859291158 No Longer Active America Rivka Hutton MIRALAX POWD 1 scoop in 4oz of water PO daily POLYETHYLENE GLYCOL 3350 50504345643 No Longer Active America Rivka Hutton 10% LCD IN THC .1% Apply to arms at bedtime 10% LCD IN THC .1% No Longer Active America Rivka Hutton TRIAMCINOLONE ACETONIDE 0.025 % OINT Apply to rash on arms daily as needed. TRIAMCINOLONE ACETONIDE 37900330268 No Longer Active America Hutton ONE TOUCH ULTRA TEST STRP Test BS TID DX: Diabetes GLUCOSE BLOOD 95465308780 No Longer Active America Hutton BD U/F SHORT PEN NEEDLE 31G X 8 MM MISC as directed with insulin DX: Diabetes INSULIN PEN NEEDLE 96799058146 No Longer Active America Hutton CIALIS 20 MG TABS 1 PO as directed TADALAFIL 32884107106 No Longer Active America Hutton ONE TOUCH ULTRA MINI W/DEVICE KIT BLOOD GLUCOSE MONITORING SUPPL 09711128508 No Longer Active America Hutton PEN NEEDLES 5/16" 31G X 8 MM MISC as directed INSULIN PEN NEEDLE 92972295434 No Longer Active America Hutton ATARAX 25 MG TAB 1 PO Q6hrs prn itching HYDROXYZINE HCL No Longer Active America Hutton PREDNISONE 20 MG TAB 2 pills at once for 2 days then 1 pill daily for 2 days PREDNISONE 79936675175 No Longer Active America Hutton METFORMIN HCL 500 MG TABS 1 po daily METFORMIN HCL 23511526154 No Longer Active America Hutton CLOTRIMAZOLE 10 MG TROC Dissolve 1 tab in mouth QID for 14 days CLOTRIMAZOLE 47028218274 No Longer Active Ramila Oates PREDNISONE 20 MG TAB 2 pills at once for 3 days then 1 pill daily for 3 days PREDNISONE 71824454023 No Longer Active America Hutton LEVAQUIN 750 MG TABS 1 PO daily for 7 days LEVOFLOXACIN 78725693472 No Longer Active America Hutton MYCELEX 10 MG TROC Dissovle in mouth QID for 14 days CLOTRIMAZOLE 57422205762 No Longer Active Ramírez Gtz LEVITRA 20 MG TABS 1 po daily prn VARDENAFIL HCL 25737972074 No Longer Active America Hutton PROAIR HFA AERS Inhale 1-2 puffs 4x daily prn ALBUTEROL SULFATE AERS 99705302616 No Longer Active America Hutton PREDNISONE 20 MG TAB 3 pills daily at once for 2 days, 2 pills daily at once for 2 days, 1 once daily for 2 days PREDNISONE 94719154949 No Longer Active America Hutton LEVAQUIN 750 MG TABS 1 PO daily LEVOFLOXACIN 88171952920 No Longer Active America Hutton HUMALOG KWIKPEN 100 UNIT/ML SOLN 40 units before meals INSULIN LISPRO (HUMAN) 23136524011 No Longer Active America Hutton MICRONASE 2.5 MG TAB 1 PO BID GLYBURIDE No Longer Active Ramila Oates SYNTHROID 0.025 MG TAB 1 PO Daily on empty stomach LEVOTHYROXINE SODIUM 13046168653 Active Ramila Oates METFORMIN HCL 1000 MG TABS 1 PO BID METFORMIN HCL 68129425782 No Longer Active America Hutton ATROVENT 0.06 % SOLN 2 puffs each nostril TID prn runny nose 2010 IPRATROPIUM BROMIDE 88993747703 No Longer Active America Hutton VICTOZA 18 MG/3ML SOLN 0.6mg injection once daily for one month, then 1.2mg injection once daily LIRAGLUTIDE 44131808459 No Longer Active America Hutton FLONASE 50 MCG/DOSE INHALANT 2 puffs each nostril daily FLONASE 50 MCG/ DOSE INHALANT No Longer Active America Rivka Hutton ZYRTEC 10 MG TAB 1 PO QD CETIRIZINE HCL No Longer Active America Rivka Hutton FLUCONAZOLE 200 MG TABS 1 PO daily for 5 days FLUCONAZOLE 81186669300 No Longer Active America Rivka Hutton ADVAIR DISKUS 500-50 MCG/DOSE MISC 1 puff BID FLUTICASONE-SALMETEROL 50112257390 No Longer Active America Rivka Hutton LEVAQUIN 500 MG TAB 1 PO QD LEVOFLOXACIN 29035431425 No Longer Active America Rivka Hutton ASTEPRO 137 MCG/SPRAY SOLN 2 puffs each nostril QHS AZELASTINE HCL 55643961181 No Longer Active America Rivka Hutton SPIRIVA HANDIHALER 18 MCG CAPS 1 inhalation daily TIOTROPIUM BROMIDE MONOHYDRATE 33592687385 No Longer Active America Rivka Hutton AZALEA-D 24 HOUR 180-240 MG FH54F-POS 1 PO daily FEXOFENADINE-PSEUDOEPHEDRINE 82768774789 No Longer Active America Rivka Hutton BACTRIM DS 800-160 MG TAB 1 PO BID TRIMETHOPRIM- SULFAMETHOXAZOLE 20307304828 No Longer Active America Rivka Hutton LEVAQUIN 500 MG TAB 1 PO QD LEVOFLOXACIN 63035217314 No Longer Active America Rivka Hutton PREDNISONE 20 MG TAB 2 pills at once for 2 days then 1 pill daily for 2 days PREDNISONE 30905013287 No Longer Active America Rivka Hutton ROBITUSSIN A-C 10-100 MG/5ML SYRUP 1 teaspoon PO Q 4-6 hr prn ROBITUSSIN A-C 10-100 MG/5ML SYRUP No Longer Active America Rivka Hutton DR. DE PAZ'S NASAL SPRAY (DEXAMETHASONE, GENTAMICIN, SALINE) 2 puffs each nostril TID for [address] STRAUSS NASAL SPRAY ( DEXAMETHASONE, GENTAMICIN, SALINE) No Longer Active America Hutton LEVAQUIN 750 MG TABS 1 po daily for 7 days LEVOFLOXACIN 50597705147 No Longer Active America Hutton BACTRIM DS 800-160 MG TAB 1 PO BID TRIMETHOPRIM- SULFAMETHOXAZOLE 14257514593 No Longer Active America Hutton HUMALOG PEN 100 UNIT/ML SOLN 25 units twice daily INSULIN LISPRO (HUMAN) 21396313578 No Longer Active America Hutton LANTUS FOR OPTICLIK 100 UNIT/ML SOLN 20 units injection every night 09/09 INSULIN GLARGINE 20073908865 No Longer Active America Hutton ROBITUSSIN A-C 10-100 MG/5ML SYRUP 1 teaspoon PO Q 4-6 hr prn ROBITUSSIN A-C 10-100 MG/5ML SYRUP No Longer Active Ramila STRAUSS NASAL SPRAY (DEXAMETHASONE, GENTAMICIN, SALINE) 2 puffs each nostril TID for [address] STRAUSS NASAL SPRAY ( DEXAMETHASONE, GENTAMICIN, SALINE) No Longer Active America Hutton AUGMENTIN 875-125 MG TAB 1 PO BID AMOXICILLIN-POT CLAVULANATE 00261102872 No Longer Active America Hutton ROBITUSSIN A-C 10-100 MG/5ML SYRUP 1 teaspoon PO Q 4-6 hr prn ROBITUSSIN A-C 10-100 MG/5ML SYRUP No Longer Active America STRAUSS NASAL SPRAY (DEXAMETHASONE, GENTAMICIN, SALINE) 2 puffs each nostril TID for [address] STRAUSS NASAL SPRAY ( DEXAMETHASONE, GENTAMICIN, SALINE) No Longer Active Barron Whitewater LEVAQUIN 500 MG TAB 1 PO QD LEVOFLOXACIN 79365994219 No Longer Active Barron Joi PREDNISONE 20 MG TAB 2 pills at once for 2 days then 1 pill daily for 2 days PREDNISONE 11005706533 No Longer Active America DE PAZ'Akira NASAL SPRAY (DEXAMETHASONE, GENTAMICIN, SALINE) 2 puffs each nostril TID for [address] DE PAZ'Akira NASAL SPRAY ( DEXAMETHASONE, GENTAMICIN, SALINE) No Longer Active America Hutton AMOXICILLIN 500 MG CAP 1 PO TID AMOXICILLIN 00472437237 No Longer Active America Hutton LISINOPRIL 10 MG TABS 1 PO Daily LISINOPRIL 26570860762 No Longer Active Ramila Oates FLOMAX 0.4 MG CP24 1 PO QHS for prostate TAMSULOSIN HCL 75158488292 No Longer Active America Hutton MAGNESIUM OXIDE 400 MG TABS 1 PO daily MAGNESIUM OXIDE 96734164554 Active Suyapa Shahnaz LASIX 20 MG TAB Take 2 PO BID FUROSEMIDE 70116874810 Active Ramila Oates KEFLEX 500 MG CAP 1 PO TID for 7 days CEPHALEXIN 65955942838 No Longer Active America Hutton ATROVENT 0.06 % SOLN 2 puffs each nostril TID prn runny nose 2008 IPRATROPIUM BROMIDE 09835677577 No Longer Active America Hutton PREDNISONE 20 MG TAB 3 pills daily at once for 3 days, 2 pills daily at once for 3 days, 1 once daily for 3 days PREDNISONE 52959790659 No Longer Active America Hutton LEVAQUIN 500 MG TAB 1 PO QD LEVOFLOXACIN 96256642143 No Longer Active America Hutton CRESTOR 5 MG TABS 1 PO daily ROSUVASTATIN CALCIUM 85093535023 Active America Hutton PREDNISONE 20 MG TAB 2 pills at once for 2 days then 1 pill daily for 2 days PREDNISONE 14736824314 No Longer Active America DE PAZ'Akira NASAL SPRAY (DEXAMETHASONE, GENTAMICIN, SALINE) 2 puffs each nostril TID for [address] STRAUSS NASAL SPRAY ( DEXAMETHASONE, GENTAMICIN, SALINE) No Longer Active America Hutton AUGMENTIN 875-125 MG TAB 1 PO BID AMOXICILLIN-POT CLAVULANATE 52485648066 No Longer Active America Hutton BIAXIN 500 MG TAB 1 PO BID for 7 days CLARITHROMYCIN 27390821330 No Longer Active Da Tse ALBUTEROL SULFATE (2.5 MG/3ML) 0.083% NEBU 1 treatment QID ALBUTEROL SULFATE 74101843830 Active America Hutton ROBITUSSIN A-C 10-100 MG/5ML SYRUP 1 teaspoon PO Q 4-6 hr prn ROBITUSSIN A-C 10-100 MG/5ML SYRUP 95770917526 No Longer Active Y Y DOXYCYCLINE HYCLATE 100 MG CAP 1 po BID. Take with food to avoid nausea. 2007 DOXYCYCLINE HYCLATE 10367383682 No Longer Active Y Y BIAXIN 500 MG TAB 1 PO BID for lung infection CLARITHROMYCIN 22023757709 No Longer Active America Hutton MEVACOR 40 MG TABS 1 PO daily LOVASTATIN 35228132437 No Longer Active America Hutton BYETTA 10 MCG PEN SOLN i injection am and at supper(On hold 09/04/07 while re- starting Humalog) EXENATIDE SOLN 30955063742 No Longer Active America Hutton LEVITRA 10 MG TABS 1 PO as directed VARDENAFIL HCL 54711003319 No Longer Active Tyler Bolton AUGMENTIN 500-125 MG TAB 1 PO BID AMOXICILLIN-POT CLAVULANATE 89753954124 No Longer Active Ramila DE PAZ'Akira NASAL [...] 1 MG TABS as directed VARENICLINE TARTRATE 14143912076 No Longer Active America Hutton LEVEMIR FLEXPEN SOLN 15 units QHS INSULIN DETEMIR SOLN 94154124829 No Longer Active America Hutton CIALIS 20 MG TABS 1po daily prn TADALAFIL 88407188318 No Longer Active America Hutton VIAGRA 50 MG TABS Take 1 PO prn SILDENAFIL CITRATE 21143676807 No Longer Active America Hutton LOTRISONE 1-0.05 % CREA Apply to both arms BID CLOTRIMAZOLE-BETAMETHASONE 30216586848 No Longer Active America Hutton LEVAQUIN 500 MG TAB 1 PO QD LEVOFLOXACIN 58497311371 No Longer Active America Hutton SPIRONOLACTONE 25 MG TABS 2 po daily SPIRONOLACTONE 45134147526 Active Ramila Oates TAMIFLU 75 MG CAPS 1 po BID x 5 days OSELTAMIVIR PHOSPHATE 99013762817 No Longer Active Amercia Hutton LANTUS FOR OPTICLIK 100 UNIT/ML SOLN 10 units QHS INSULIN GLARGINE 31084241652 No Longer Active America Hutton ATROVENT 0.06 % SOLN 2 puffs each nostril BID x 7 days IPRATROPIUM BROMIDE 67355796788 No Longer Active America Hansonanne Anni AUGMENTIN 875-125 MG TABS 1 po BID for 7 days. AMOXICILLIN-POT CLAVULANATE 03287146969 No Longer Active Americaedy Chaveze Anni AZALEA 180 MG TABS 1 po daily FEXOFENADINE HCL 29662896302 No Longer Active Americaedy Chaveze Anni PYRIDIUM 200 MG TABS 1 po TID for 3 days PHENAZOPYRIDINE HCL 41690740385 No Longer Active America Rivka Anni ZAROXOLYN 5 MG TABS 1 PO daily METOLAZONE Active Ramila Oates NOVOLOG PENFILL SOLN 4 units before meals INSULIN ASPART SOLN 59927829332 No Longer Active America Hutton Immunizations Vaccine [...] phosphatase, serum 71 U/L Clinical Lists Update: [facility] - Hematology hemoglobin, blood 14.2 g/dL hematocrit, [...] % Encounters Code Encounter Date Provider Facility CPT-83910 Ofc Vst, Est Level III 19:33:22 CDT America Hutton, DO, FACP CPT-47984 Ofc Vst, Est Level III 17:18:19 CDT America Arellanoner, DO, FACP CPT-20195 Ofc Vst, Est Level IV 15:55:02 CDT America Hutton, DO, FACP CPT-61162 Ofc Vst, Est Level IV 12:24:37 [employer] Americaedy Arellanoner, DO, FACP CPT-05583 Ofc Vst, Est Level IV 17:38:12 CDT America Hutton, DO, FACP CPT-34220 Ofc Vst, Est Level III 14:37:41 CDT America Hutton, DO, FACP CPT-70744 Ofc Vst, Est Level III 12:43:48 [employer] America Champion Hutton, DO, FACP CPT-02320 Ofc Vst, Est Level IV 10:57:08 [employer] America Champion Hutton, DO, FACP CPT-36345 Ofc Vst, Est Level IV 16:59:13 CDT America Rivka Champion Hutton, DO, FACP CPT-22391 Ofc Vst, Est Level IV 16:43:56 CDT Americaedy [facility] CPT-11865 Ofc Vst, Est Level III 16:27:39 CDT America Rivka Champion Hutton, DO, FACP CPT-49825 Ofc Vst, Est Level IV 14:14:50 CDT America Rivka Champion Anni, DO, FACP CPT-63307 Ofc Vst, Est Level III 11:30:50 CDT Americaedy Champion Hutton, DO, FACP CPT-69325 Ofc Vst, Est Level III 16:29:28 CDT America Rivka Champion Hutton, DO, FACP CPT-11050 Ofc Vst, Est Level IV 16:50:49 [employer] America Champion Anni, DO, FACP CPT-30994 Ofc Vst, Est Level IV 11:54:05 CDT America Rivka Champion Hutton, DO, FACP CPT-89950 Ofc Vst, Est Level IV 10:52:34 CDT America Rivka Champion Hutton, DO, FACP CPT-02924 Ofc Vst, Est Level IV 11:30:28 [employer] America Rivka Champion Hutton, DO, FACP CPT-31106 Ofc Vst, Est Level IV 10:48:08 [employer] America Rivka Cross S Hutton, DO, FACP CPT-36872 Ofc Vst, Est Level IV 11:36:11 CDT America Rivka Champion Anni, DO, FACP CPT-42072 Ofc Vst, Est Level IV 10:59:29 CDT America Rivka Champion Hutton, DO, FACP CPT-55684 Ofc Vst, Est Level IV 11:57:28 CDT America Rivka Champion Hutton, DO, FACP CPT-57629 Ofc Vst, Est Level IV 11:04:42 [employer] America Champion Anni, DO, FACP CPT-62254 Ofc Vst, Est Level V 11:03:29 [employer] America Champion Anni, DO, FACP CPT-27825 Ofc Vst, Est Level IV 10:53:30 CDT America Rivka Champion Anni, DO, FACP CPT-76153 Ofc Vst, Est Level IV 11:12:42 CDT Americaedy Champion Anni, DO, FACP CPT-47078 Ofc Vst, Est Level IV 11:25:49 CDT America Champion Anni, DO, FACP CPT-19137 Ofc Vst, Est Level IV 14:19:05 CDT America Rivka Champion Anni, DO, FACP CPT-63376 Ofc Vst, Est Level V 15:01:50 [employer] America Hutton [place] [facility] CPT-40075 Ofc Vst, Est Level IV 11:18:30 [employer] America Champion Anni, DO, FACP CPT-58581 Ofc Vst, Est Level IV 14:33:19 CDT America Rivka Champion Anni, DO, FACP CPT-23722 Ofc Vst, Est Level IV 14:24:09 CDT Americaedy Champion Hutton, DO, FACP CPT-34424 Ofc Vst, Est Level IV 16:24:25 CDT Americaedy [place] [facility] CPT-05964 Ofc Vst, Est Level V 12:06:18 CDT America Rivka Champion Hutton, DO, FACP CPT-53482 Ofc Vst, Est Level IV 11:32:52 CDT Americaedy Champion Hutton, DO, FACP CPT-97339 Ofc Vst, Est Level V 15:54:46 CDT America Rivka Champion Hutton, DO, FACP CPT-11612 Ofc Vst, Est Level IV 14:32:33 CDT Americaedy Champion Anni, DO, FACP CPT-20669 Ofc Vst, Est Level IV 14:06:04 [employer] America Champion Hutton, DO, FACP CPT-28045 Ofc Vst, Est Level IV 10:36:45 [employer] America Champion Hutton, DO, FACP CPT-95488 Ofc Vst, Est Level IV 13:12:16 CDT America Champion Anni, DO, FACP CPT-26498 Ofc Vst, Est Level IV 15:20:36 CDT America Rivka Champion Hutton, DO, FACP CPT-13141 Ofc Vst, Est Level III 12:05:11 CDT America Rivka Champion Hutton, DO, FACP CPT-52867 Ofc Vst, Est Level III 13:05:33 CDT Americaedy Betancuri Akira Hutton, DO, FACP CPT-14112 Ofc Vst, Est Level IV 14:09:19 CDT Americaedy Champion Hutton, DO, FACP CPT-64485 Ofc Vst, Est Level IV 14:00:30 [employer] America Champion Hutton, DO, FACP CPT-33196 Ofc Vst, Est Level IV 17:29:08 [employer] America Champion Hutton, DO, FACP CPT-75492 Ofc Vst, Est Level III 13:45:01 [employer] America Champion Hutton, DO, FACP CPT-39302 Ofc Vst, Est Level IV 15:24:26 [employer] America Champion Anni, DO, FACP CPT-45323 Ofc Vst, Est Level IV 15:54:58 [employer] America Champion Hutton, DO, FACP CPT-40468 Ofc Vst, Est Level IV 10:17:27 [employer] America Hutton, DO, FACP CPT-67429 Ofc Vst, Est Level IV 11:40:37 CDT America Champion Hutton, DO, FACP CPT-95601 Ofc Vst, New Level IV 17:22:52 CDT America Champion Hutton, DO, FACP Procedures Code Procedure Name Date Entry Date Standard Description CPT-41407 Preventive, Est, (40-64) 13:27:46 CDT CPT-30960 Preventive, Est, (40-64) 21:40:47 CDT CPT-98563 Preventive, Est, (40-64) 20:22:44 [employer]NER CPT-68916 Injection 11:25:49 CDT CPT-15748 Injection 14:19:05 CDT CPT-68599 Injection 14:33:19 CDT CPT-58415 Injection 14:24:09 CDT CPT-96179 Injection 16:24:25 CDT CPT-64012 Injection 14:32:33 CDT CPT-80913 Injection 14:06:04 [employer] CPT-75074 Biopsy, skin/subcut/mucous membrane; sngl lsn 14:21:51 CDT CPT-G0008 Administration Influenza Vaccine 11:40:37 CDT CPT-78639 Influenza Vaccine 11:40:37 CDT
--- OUTSIDE RECORDS SUMMARY | 2017-04-21 14:40 | XMS REPORT | Clinical Summary ---
Author Author User, [employer] Organization America Hutton DO, FACP Address Unknown [...] Coronary atherosclerosis of unspecified type of vessel, [place] or graft CHRONIC AIRWAY OBSTRUCTION (COPD) 496 [...] Name NDC Status Provider Patient Instruction NYSTATIN 642920 U/ML SUSP 5cc PO QID for 7 days NYSTATIN 73447234876 No Longer Active America Hutton TAMIFLU 75 MG CAPS 1 po BID OSELTAMIVIR PHOSPHATE 53863216077 No Longer Active America Hutton NYSTATIN 184212 UNIT/GM CREA apply to affected areas BID for 7 days NYSTATIN 86711505792 No Longer Active Ramila Oates SPIRIVA HANDIHALER 18 MCG CAPS ONE INHALATION DAILY TIOTROPIUM BROMIDE MONOHYDRATE 68574491638 Active America Hutton ATROVENT HFA 17 MCG/ACT AERS 2 puffs BID IPRATROPIUM BROMIDE HFA 65753789402 No Longer Active America Hutton PERFOROMIST 20 MCG/2ML NEBU 1 vial Neb treatment BID FORMOTEROL FUMARATE 74990706999 No Longer Active America Hutton VENTOLIN HFA 108 (90 BASE) MCG/ACT AERS 2 puffs Q 4 hours prn ALBUTEROL SULFATE 59180920043 No Longer Active America Hutton HYDROXYZINE HCL 25 MG TABS 1 PO Q 6HRS PRN HYDROXYZINE HCL 49166788431 Active Ramila Oates SINGULAIR 10 MG TABS 1 PO AT Q HS MONTELUKAST SODIUM 07984432587 Active America Hutton NOVOLOG 100 U/ML SOLN 12 units before meals INSULIN ASPART 54459318098 Active America Hutton LANTUS SOLOSTAR 100 UNIT/ML SOLN 20 units at night INSULIN GLARGINE 16676692683 Active America Hutton AMLACTIN 12 % LOTN Apply a small amount to affected areas BID AMMONIUM LACTATE 81925456068 No Longer Active America Hutton ADVAIR DISKUS 500-50 MCG/DOSE AEPB 1 puff BID FLUTICASONE- SALMETEROL 75056092309 Active Ramila Oates POTASSIUM CHLORIDE ER 20 MEQ CR-TABS 1-2 PO BID POTASSIUM CHLORIDE 08231596762 Active Ramila Oates NOVOFINE 30G X 8 MM MISC DIRECTED DX: 250.00 INSULIN PEN NEEDLE 01035958200 Active Ramila Oates PREDNISONE 10 MG TAB 2 PO daily for for 3 days then 1 PO daily for 5 days. PREDNISONE 48580438616 No Longer Active America DE PAZ'Akira NASAL SPRAY (DEXAMETHASONE, GENTAMICIN, SALINE) 2 puffs each nostril TID for [address] DE PAZ'Akira NASAL SPRAY ( DEXAMETHASONE, GENTAMICIN, SALINE) No Longer Active America Hutton CEFDINIR 300 MG CAPS 1 PO BID for 6 weeks CEFDINIR 19764953709 No Longer Active America Hutton PREDNISONE 20 MG TAB 2 pills at once for 2 days then 1 pill daily for 5 days PREDNISONE 33464154810 No Longer Active America Hutton DOXYCYCLINE HYCLATE 100 MG CAP 1 po BID DOXYCYCLINE HYCLATE 12230534702 No Longer Active America Hutton NYSTATIN 952043 U/ML SUSP 5cc PO QID for 7 days NYSTATIN 16876468366 No Longer Active America Hutton NYSTATIN 593146 U/ML SUSP 5cc PO QID for 7 days NYSTATIN 96596537471 No Longer Active America Rivka Hutton ASPIRIN 325 MG TABS 1 PO daily ASPIRIN 17185417659 No Longer Active America Rivka Hutton COZAAR 100 MG TAB 1 PO Daily LOSARTAN POTASSIUM 71670969315 Active Ramila Иван PREDNISONE 20 MG TAB 2 pills at once for 2 days then 1 pill daily for 5 days PREDNISONE 67450472723 No Longer Active America Rivka Hutton DOXYCYCLINE HYCLATE 100 MG CAP 1 po BID DOXYCYCLINE HYCLATE 73941263672 No Longer Active America Rivka Hutton HYZAAR 100-12.5 MG TABS 1 PO daily LOSARTAN POTASSIUM-HCTZ 29561779210 No Longer Active America Rivka Hutton MOBIC 15 MG TABS 1 PO daily for arthritis MELOXICAM 13817804870 Active America Rivka Hutton PREDNISONE 20 MG TAB 2 pills at once for 2 days then 1 pill daily for 5 days PREDNISONE 45972322792 No Longer Active Americaedy Hutton LEVAQUIN 750 MG TABS 1 PO daily LEVOFLOXACIN 54706361818 No Longer Active Americaedy Hutton ANDROGEL PUMP 20.25 MG/ACT (1.62%) GEL rub in two pumps into skin daily TESTOSTERONE 90587123057 No Longer Active America Rivka Hutton ULTRAM 50 MG TAB 1 PO q 6 hrs prn TRAMADOL HCL 66018013593 No Longer Active America Rivka Hutton VITAMIN D 1000 UNIT TABS 1 PO Daily CHOLECALCIFEROL 69473666288 No Longer Active America Rivka Hutton ETODOLAC 400 MG TABS 1 PO BID ETODOLAC 42567275216 No Longer Active America Rivka Hutton LORTAB 7.5 7.5-500 MG TABS 1-2 q 4-6 hrs. prn HYDROCODONE- ACETAMINOPHEN 04623345897 No Longer Active America Rivka Hutton PLAVIX 75 MG TABS 1 po daily CLOPIDOGREL BISULFATE 06253213141 No Longer Active America Rivka Hutton ATARAX 25 MG TAB 1 PO Q6 hours prn HYDROXYZINE HCL Active Rosario Moyer PREDNISONE 20 MG TAB 2 pills at once for 2 days then 1 pill daily for 5 days PREDNISONE 57902758166 No Longer Active America Rivka Hutton ONETOUCH ULTRA BLUE STRP TEST BS QID DX: DIABETES GLUCOSE BLOOD 49383370292 Active Ramila Oates ATARAX 25 MG TAB 1 PO Q6hrs prn HYDROXYZINE HCL No Longer Active Americaedy Hutton PREDNISONE 20 MG TAB 2 pills at once for 2 days then 1 pill daily for 2 days PREDNISONE 98168318361 No Longer Active Americaedy Hutton PEN NEEDLES 5/16" 31G X 8 MM MISC as directed INSULIN PEN NEEDLE 41296086454 No Longer Active Americaedy Hutton NASONEX 50 MCG/ACT SUSP 2 Puffs ea. nostril daily MOMETASONE FUROATE 25236353511 No Longer Active Americaedy Hutton CLARINEX 5 MG TABS 1 po daily DESLORATADINE 56134861833 No Longer Active Americaedy Hutton MIRALAX POWD 1 scoop in 4oz of water PO daily POLYETHYLENE GLYCOL 3350 60989476961 No Longer Active Americaedy Hutton 10% LCD IN THC .1% Apply to arms at bedtime 10% LCD IN THC .1% No Longer Active America Rivka Hutton TRIAMCINOLONE ACETONIDE 0.025 % OINT Apply to rash on arms daily as needed. TRIAMCINOLONE ACETONIDE 95098991807 No Longer Active Americaedy Hutton ONE TOUCH ULTRA TEST STRP Test BS TID DX: Diabetes GLUCOSE BLOOD 61468945038 No Longer Active America Hutton BD U/F SHORT PEN NEEDLE 31G X 8 MM MISC as directed with insulin DX: Diabetes INSULIN PEN NEEDLE 12495293772 No Longer Active America Hutton CIALIS 20 MG TABS 1 PO as directed TADALAFIL 75378690579 No Longer Active America Hutton ONE TOUCH ULTRA MINI W/DEVICE KIT BLOOD GLUCOSE MONITORING SUPPL 12449337701 No Longer Active America Hutton PEN NEEDLES /16" 31G X 8 MM MISC as directed INSULIN PEN NEEDLE 81922375839 No Longer Active America Hutton ATARAX 25 MG TAB 1 PO Q6hrs prn itching HYDROXYZINE HCL No Longer Active America Hutton PREDNISONE 20 MG TAB 2 pills at once for 2 days then 1 pill daily for 2 days PREDNISONE 44741340770 No Longer Active America Hutton METFORMIN HCL 500 MG TABS 1 po daily METFORMIN HCL 82156258932 No Longer Active America Hutton CLOTRIMAZOLE 10 MG TROC Dissolve 1 tab in mouth QID for 14 days CLOTRIMAZOLE 93634816886 No Longer Active Ramila Oates PREDNISONE 20 MG TAB 2 pills at once for 3 days then 1 pill daily for 3 days PREDNISONE 60057073852 No Longer Active America Hutton LEVAQUIN 750 MG TABS 1 PO daily for 7 days LEVOFLOXACIN 61189888992 No Longer Active America Hutton MYCELEX 10 MG TROC Dissovle in mouth QID for 14 days CLOTRIMAZOLE 62391672892 No Longer Active Ramírez Gtz LEVITRA 20 MG TABS 1 po daily prn VARDENAFIL HCL 85580778069 No Longer Active Americaedy Hutton PROAIR HFA AERS Inhale 1-2 puffs 4x daily prn ALBUTEROL SULFATE AERS 81483593550 No Longer Active America Rivka Hutton PREDNISONE 20 MG TAB 3 pills daily at once for 2 days, 2 pills daily at once for 2 days, 1 once daily for 2 days PREDNISONE 51163435555 No Longer Active America Rivka Hutton LEVAQUIN 750 MG TABS 1 PO daily LEVOFLOXACIN 46953723580 No Longer Active Americaedy Hutton HUMALOG KWIKPEN 100 UNIT/ML SOLN 40 units before meals INSULIN LISPRO (HUMAN) 22491277325 No Longer Active Americaedy Hutton MICRONASE 2.5 MG TAB 1 PO BID GLYBURIDE No Longer Active Ramila Oates SYNTHROID 0.025 MG TAB 1 PO Daily on empty stomach LEVOTHYROXINE SODIUM 82506322030 Active Ramila Oates METFORMIN HCL 1000 MG TABS 1 PO BID METFORMIN HCL 70087350440 No Longer Active America Hutton ATROVENT 0.06 % SOLN 2 puffs each nostril TID prn runny nose 2010 IPRATROPIUM BROMIDE 54099732165 No Longer Active Americaedy Hutton VICTOZA 18 MG/3ML SOLN 0.6mg injection once daily for one month, then 1.2mg injection once daily LIRAGLUTIDE 71636150873 No Longer Active Americaedy Hutton FLONASE 50 MCG/DOSE INHALANT 2 puffs each nostril daily FLONASE 50 MCG/ DOSE INHALANT No Longer Active America Hutton ZYRTEC 10 MG TAB 1 PO QD CETIRIZINE HCL No Longer Active Americaedy Hutton FLUCONAZOLE 200 MG TABS 1 PO daily for 5 days FLUCONAZOLE 03654025689 No Longer Active America Rivka Hutton ADVAIR DISKUS 500-50 MCG/DOSE MISC 1 puff BID FLUTICASONE-SALMETEROL 31934598281 No Longer Active America Rivka Hutton LEVAQUIN 500 MG TAB 1 PO QD LEVOFLOXACIN 69214034173 No Longer Active America Rivka Hutton ASTEPRO 137 MCG/SPRAY SOLN 2 puffs each nostril QHS AZELASTINE HCL 90282016175 No Longer Active America Rivka Hutton SPIRIVA HANDIHALER 18 MCG CAPS 1 inhalation daily TIOTROPIUM BROMIDE MONOHYDRATE 07229556588 No Longer Active America Rivka Hutton AZALEA-D 24 HOUR 180-240 MG [id number] 1 PO daily FEXOFENADINE-PSEUDOEPHEDRINE 94206005866 No Longer Active America Rivka Hutton BACTRIM DS 800-160 MG TAB 1 PO BID TRIMETHOPRIM- SULFAMETHOXAZOLE 95008990586 No Longer Active America Rivka Hutton LEVAQUIN 500 MG TAB 1 PO QD LEVOFLOXACIN 59741128055 No Longer Active America Rivka Hutton PREDNISONE 20 MG TAB 2 pills at once for 2 days then 1 pill daily for 2 days PREDNISONE 95186094265 No Longer Active America Rivka Hutton ROBITUSSIN [...] 1 po daily for 7 days LEVOFLOXACIN 34049758374 No Longer Active America Hutton BACTRIM DS 800-160 MG TAB 1 PO BID TRIMETHOPRIM- SULFAMETHOXAZOLE 48021973668 No Longer Active America Hutton HUMALOG PEN 100 UNIT/ML SOLN 25 units twice daily INSULIN LISPRO (HUMAN) 28937220692 No Longer Active America Hutton LANTUS FOR OPTICLIK 100 UNIT/ML SOLN 20 units injection every night 09/09 INSULIN GLARGINE 40738658155 No Longer Active America Hutton ROBITUSSIN A-C 10-100 MG/5ML SYRUP 1 teaspoon PO Q 4-6 hr prn ROBITUSSIN A-C 10-100 MG/5ML SYRUP No Longer Active Ramila DE PAZ'Akira NASAL SPRAY (DEXAMETHASONE, GENTAMICIN, SALINE) 2 puffs each nostril TID for [address] STRAUSS NASAL SPRAY ( DEXAMETHASONE, GENTAMICIN, SALINE) No Longer Active America Hutton AUGMENTIN 875-125 MG TAB 1 PO BID AMOXICILLIN-POT CLAVULANATE 53034424192 No Longer Active America Hutton ROBITUSSIN A-C 10-100 MG/5ML SYRUP 1 teaspoon PO Q 4-6 hr prn ROBITUSSIN A-C 10-100 MG/5ML SYRUP No Longer Active America STRAUSS NASAL SPRAY (DEXAMETHASONE, GENTAMICIN, SALINE) 2 puffs each nostril TID for [address] STRAUSS NASAL SPRAY ( DEXAMETHASONE, GENTAMICIN, SALINE) No Longer Active [employer] LEVAQUIN 500 MG TAB 1 PO QD LEVOFLOXACIN 23126384113 No Longer Active Barron Joi PREDNISONE 20 MG TAB 2 pills at once for 2 days then 1 pill daily for 2 days PREDNISONE 76814934159 No Longer Active America STRAUSS NASAL SPRAY (DEXAMETHASONE, GENTAMICIN, SALINE) 2 puffs each nostril TID for [address] STRAUSS NASAL SPRAY ( DEXAMETHASONE, GENTAMICIN, SALINE) No Longer Active America Hutton AMOXICILLIN 500 MG CAP 1 PO TID AMOXICILLIN 35977635076 No Longer Active America Hutton LISINOPRIL 10 MG TABS 1 PO Daily LISINOPRIL 48305733522 No Longer Active Ramila Oates FLOMAX 0.4 MG CP24 1 PO QHS for prostate TAMSULOSIN HCL 01810820191 No Longer Active America Hutton MAGNESIUM OXIDE 400 MG TABS 1 PO daily MAGNESIUM OXIDE 57062498190 Active Suyapa Shahnaz LASIX 20 MG TAB Take 2 PO BID FUROSEMIDE 62632677357 Active Ramila Oates KEFLEX 500 MG CAP 1 PO TID for 7 days CEPHALEXIN 90374587025 No Longer Active America Hutton ATROVENT 0.06 % SOLN 2 puffs each nostril TID prn runny nose 2008 IPRATROPIUM BROMIDE 73437711446 No Longer Active America Hutton PREDNISONE 20 MG TAB 3 pills daily at once for 3 days, 2 pills daily at once for 3 days, 1 once daily for 3 days PREDNISONE 31629669969 No Longer Active America Hutton LEVAQUIN 500 MG TAB 1 PO QD LEVOFLOXACIN 81459800821 No Longer Active America Hutton CRESTOR 5 MG TABS 1 PO daily ROSUVASTATIN CALCIUM 44832401507 Active America Hutton PREDNISONE 20 MG TAB 2 pills at once for 2 days then 1 pill daily for 2 days PREDNISONE 38241489892 No Longer Active America STRAUSS NASAL SPRAY (DEXAMETHASONE, GENTAMICIN, SALINE) 2 puffs each nostril TID for [address] STRAUSS NASAL SPRAY ( DEXAMETHASONE, GENTAMICIN, SALINE) No Longer Active America Hutton AUGMENTIN 875-125 MG TAB 1 PO BID AMOXICILLIN-POT CLAVULANATE 86757372298 No Longer Active America Hutton BIAXIN 500 MG TAB 1 PO BID for 7 days CLARITHROMYCIN 61620453808 No Longer Active [facility] ALBUTEROL SULFATE (2.5 MG/3ML) 0.083% NEBU 1 treatment QID ALBUTEROL SULFATE 18639028200 Active America Hutton ROBITUSSIN A-C 10-100 MG/5ML SYRUP 1 teaspoon PO Q 4-6 hr prn ROBITUSSIN A-C 10-100 MG/5ML SYRUP 27229787409 No Longer Active Y Y DOXYCYCLINE HYCLATE 100 MG CAP 1 po BID. Take with food to avoid nausea. 2007 DOXYCYCLINE HYCLATE 03506949877 No Longer Active Y Y BIAXIN 500 MG TAB 1 PO BID for lung infection CLARITHROMYCIN 46354025473 No Longer Active America Hutton MEVACOR 40 MG TABS 1 PO daily LOVASTATIN 69755101592 No Longer Active America Hutton BYETTA 10 MCG PEN SOLN i injection am and at supper(On hold 09/04/07 while re- starting Humalog) EXENATIDE SOLN 78042582722 No Longer Active America Hutton LEVITRA 10 MG TABS 1 PO as directed VARDENAFIL HCL 61231420015 No Longer Active Tyler Bolton AUGMENTIN 500-125 MG TAB 1 PO BID AMOXICILLIN-POT CLAVULANATE 09722341830 No Longer Active Ramila STRAUSS NASAL SPRAY [...] 1 MG TABS as directed VARENICLINE TARTRATE 73268075767 No Longer Active America Rivka Hutton LEVEMIR FLEXPEN SOLN 15 units QHS INSULIN DETEMIR SOLN 11084135905 No Longer Active America Rivka Hutton CIALIS 20 MG TABS 1po daily prn TADALAFIL 12100741968 No Longer Active America Rivka Hutton VIAGRA 50 MG TABS Take 1 PO prn SILDENAFIL CITRATE 62312056095 No Longer Active America Rivka Hutton LOTRISONE 1-0.05 % CREA Apply to both arms BID CLOTRIMAZOLE-BETAMETHASONE 86908891638 No Longer Active America Rivka Hutton LEVAQUIN 500 MG TAB 1 PO QD LEVOFLOXACIN 95202255159 No Longer Active Americaedy Hutton SPIRONOLACTONE 25 MG TABS 2 po daily SPIRONOLACTONE 12425425399 Active Ramila Oates TAMIFLU 75 MG CAPS 1 po BID x 5 days OSELTAMIVIR PHOSPHATE 55341423918 No Longer Active America Rivka Hutton LANTUS FOR OPTICLIK 100 UNIT/ML SOLN 10 units QHS INSULIN GLARGINE 05419412489 No Longer Active America Rivka Hutton ATROVENT 0.06 % SOLN 2 puffs each nostril BID x 7 days IPRATROPIUM BROMIDE 09576608360 No Longer Active America Rivka Hutton AUGMENTIN 875-125 MG TABS 1 po BID for 7 days. AMOXICILLIN-POT CLAVULANATE 29766848380 No Longer Active America Rivka Hutton AZALEA 180 MG TABS 1 po daily FEXOFENADINE HCL 26337196643 No Longer Active America Hutton PYRIDIUM 200 MG TABS 1 po TID for 3 days PHENAZOPYRIDINE HCL 71820718259 No Longer Active America Hutton ZAROXOLYN 5 MG TABS 1 PO daily METOLAZONE Active Ramila [place] NOVOLOG PENFILL SOLN 4 units before meals INSULIN ASPART SOLN 45476591263 No Longer Active America Arellanoner Immunizations Vaccine [...] % Encounters Code Encounter Date Provider Facility CPT-56281 Ofc Vst, Est Level III 17:18:19 CDT America Rivka Anni Arellanoner, DO, FACP CPT-20738 Ofc Vst, Est Level IV 15:55:02 CDT America Rivka Anni Hutton, DO, FACP CPT-47580 Ofc Vst, Est Level IV 12:24:37 STROKE COORDINATOR America Rivka Anni Hutton, DO, FACP CPT-45355 Ofc Vst, Est Level IV 17:38:12 CDT America Rivka Anni Hutton, DO, FACP CPT-86880 Ofc Vst, Est Level III 14:37:41 CDT America Rivka Anni Hutton, DO, FACP CPT-32457 Ofc Vst, Est Level III 12:43:48 STROKE COORDINATOR America Rivka Anni Hutton, DO, FACP CPT-54195 Ofc Vst, Est Level IV 10:57:08 STROKE COORDINATOR America Hutton, DO, FACP CPT-59428 Ofc Vst, Est Level IV 16:59:13 CDT America Rivka Anni Hutton, DO, FACP CPT-80601 Ofc Vst, Est Level IV 16:43:56 CDT America Rivkabobbi [facility] CPT-24013 Ofc Vst, Est Level III 16:27:39 CDT Americaedy Hutton, DO, FACP CPT-46653 Ofc Vst, Est Level IV 14:14:50 CDT America Rivka Anni Hutton, DO, FACP CPT-86459 Ofc Vst, Est Level III 11:30:50 CDT Americaedy Champion Hutton, DO, FACP CPT-01347 Ofc Vst, Est Level III 16:29:28 CDT America Champion Hutton, DO, FACP CPT-34356 Ofc Vst, Est Level IV 16:50:49 STROKE COORDINATOR Americaedy Champion Hutton, DO, FACP CPT-76935 Ofc Vst, Est Level IV 11:54:05 CDT Americaedy Champion Hutton, DO, FACP CPT-55443 Ofc Vst, Est Level IV 10:52:34 CDT America Champion Hutton, DO, FACP CPT-85427 Ofc Vst, Est Level IV 11:30:28 STROKE COORDINATOR America Champion Anni, DO, FACP CPT-14079 Ofc Vst, Est Level IV 10:48:08 STROKE COORDINATOR America Champion Hutton, DO, FACP CPT-80785 Ofc Vst, Est Level IV 11:36:11 CDT America Champion Hutton, DO, FACP CPT-32876 Ofc Vst, Est Level IV 10:59:29 CDT Americaedy Champion Hutton, DO, FACP CPT-12863 Ofc Vst, Est Level IV 11:57:28 CDT Americaedy Champion Hutton, DO, FACP CPT-60324 Ofc Vst, Est Level IV 11:04:42 STROKE COORDINATOR America Champion Hutton, DO, FACP CPT-21183 Ofc Vst, Est Level V 11:03:29 STROKE COORDINATOR America Champion Anni, DO, FACP CPT-83668 Ofc Vst, Est Level IV 10:53:30 CDT America Rivka Champion Hutton, DO, FACP CPT-15959 Ofc Vst, Est Level IV 11:12:42 CDT America Rivka Champion Hutton, DO, FACP CPT-45978 Ofc Vst, Est Level IV 11:25:49 CDT America Rivka Champion Hutton, DO, FACP CPT-11546 Ofc Vst, Est Level IV 14:19:05 CDT America Rivka Champion Hutton, DO, FACP CPT-29516 Ofc Vst, Est Level V 15:01:50 STROKE COORDINATOR America Hutton [facility] CPT-20666 Ofc Vst, Est Level IV 11:18:30 STROKE COORDINATOR America Rivka Champion Anni, DO, FACP CPT-29972 Ofc Vst, Est Level IV 14:33:19 CDT America Rivka Champion Hutton, DO, FACP CPT-86676 Ofc Vst, Est Level IV 14:24:09 CDT America Rivka Champion Hutton, DO, FACP CPT-00837 Ofc Vst, Est Level IV 16:24:25 CDT Americaedy Hutton [facility] CPT-86518 Ofc Vst, Est Level V 12:06:18 CDT America Rivka Champion Hutton, DO, FACP CPT-40421 Ofc Vst, Est Level IV 11:32:52 CDT America Rivka Cross S Hutton, DO, FACP CPT-05206 Ofc Vst, Est Level V 15:54:46 CDT America Rivka Champion Hutton, DO, FACP CPT-13006 Ofc Vst, Est Level IV 14:32:33 CDT America Rivka Champion Hutton, DO, FACP CPT-88526 Ofc Vst, Est Level IV 14:06:04 STROKE COORDINATOR America Champion Hutton, DO, FACP CPT-18322 Ofc Vst, Est Level IV 10:36:45 STROKE COORDINATOR America Champion Hutton, DO, FACP CPT-74604 Ofc Vst, Est Level IV 13:12:16 CDT America Rivka Champion Hutton, DO, FACP CPT-92214 Ofc Vst, Est Level IV 15:20:36 CDT America Rivka Champion Hutton, DO, FACP CPT-45296 Ofc Vst, Est Level III 12:05:11 CDT America Rivka Champion Hutton, DO, FACP CPT-65467 Ofc Vst, Est Level III 13:05:33 CDT Americaedy Champion Hutton, DO, FACP CPT-33673 Ofc Vst, Est Level IV 14:09:19 CDT Americaedy Champion Hutton, DO, FACP CPT-46138 Ofc Vst, Est Level IV 14:00:30 STROKE COORDINATOR America Champion Hutton, DO, FACP CPT-54668 Ofc Vst, Est Level IV 17:29:08 STROKE COORDINATOR America Champion Hutton, DO, FACP CPT-22348 Ofc Vst, Est Level III 13:45:01 STROKE COORDINATOR America Champion Hutton, DO, FACP CPT-05961 Ofc Vst, Est Level IV 15:24:26 STROKE COORDINATOR America Cross S Hutton, DO, FACP CPT-60001 Ofc Vst, Est Level IV 15:54:58 STROKE COORDINATOR America Champion Hutton, DO, FACP CPT-53753 Ofc Vst, Est Level IV 10:17:27 STROKE COORDINATOR Americaedy Champion DO Anni, FACP CPT-67921 Ofc Vst, Est Level IV 11:40:37 CDT America Rivka Hutton Americaedy Hutton DO, FACP CPT-05322 Ofc Vst, New Level IV 17:22:52 CDT America Arellanoner Americaedy Hutton DO, FACP Procedures Code Procedure Name Date Entry Date Standard Description CPT-43095 Preventive, Est, (40-64) 13:27:46 CDT CPT-64980 Preventive, Est, (40-64) 21:40:47 CDT CPT-33876 Preventive, Est, (40-64) 20:22:44 STROKE COORDINATOR CPT-10549 Injection 11:25:49 CDT CPT-26630 Injection 14:19:05 CDT CPT-47740 Injection 14:33:19 CDT CPT-80199 Injection 14:24:09 CDT CPT-04006 Injection 16:24:25 CDT CPT-15338 Injection 14:32:33 CDT CPT-85019 Injection 14:06:04 STROKE COORDINATOR CPT-73292 Biopsy, skin/subcut/mucous membrane; sngl lsn 14:21:51 CDT CPT-G0008 Administration Influenza Vaccine 11:40:37 CDT CPT-89657 Influenza Vaccine 11:40:37 CDT
--- OUTSIDE RECORDS SUMMARY | 2017-04-21 14:43 | XMS REPORT | Clinical Summary ---
Author Author User, [employer] America Hutton DO, FACP Address [...] Coronary atherosclerosis of unspecified type of vessel, [place] or graft CHRONIC AIRWAY OBSTRUCTION (COPD) 496 [...] INFLUENZA W/RESPIRATORY MANIFESTATION NEC 487.1 Resolved America uHtton Influenza with other respiratory manifestations FEVER 780.6 [...] respiratory failure LUNG ABSCESS 513.0 Resolved America Hutotn Abscess of lung TESTOSTERONE DEFICIENCY 257.2 Active [...] Name NDC Status Provider Patient Instruction NYSTATIN 731852 U/ML SUSP 5cc PO QID for 7 days NYSTATIN 45780505541 No Longer Active America Hutton TAMIFLU 75 MG CAPS 1 po BID OSELTAMIVIR PHOSPHATE 53735786940 No Longer Active America Hutton NYSTATIN 483045 UNIT/GM CREA apply to affected areas BID for 7 days NYSTATIN 63865646451 No Longer Active Ramila Oates SPIRIVA HANDIHALER 18 MCG CAPS ONE INHALATION DAILY TIOTROPIUM BROMIDE MONOHYDRATE 75243582887 Active America Hutton ATROVENT HFA 17 MCG/ACT AERS 2 puffs BID IPRATROPIUM BROMIDE HFA 90867789955 No Longer Active America Hutton PERFOROMIST 20 MCG/2ML NEBU 1 vial Neb treatment BID FORMOTEROL FUMARATE 88661595882 No Longer Active America Hutton VENTOLIN HFA 108 (90 BASE) MCG/ACT AERS 2 puffs Q 4 hours prn ALBUTEROL SULFATE 47172587270 No Longer Active America Hutton HYDROXYZINE HCL 25 MG TABS 1 PO Q 6HRS PRN HYDROXYZINE HCL 26808795875 Active Ramila Oates SINGULAIR 10 MG TABS 1 PO AT Q HS MONTELUKAST SODIUM 98440583774 Active America Hutton NOVOLOG 100 U/ML SOLN 12 units before meals INSULIN ASPART 60267767271 Active America Hutton LANTUS SOLOSTAR 100 UNIT/ML SOLN 20 units at night INSULIN GLARGINE 64112167598 Active America Hutton AMLACTIN 12 % LOTN Apply a small amount to affected areas BID AMMONIUM LACTATE 28717232754 No Longer Active America Hutton ADVAIR DISKUS 500-50 MCG/DOSE AEPB 1 puff BID FLUTICASONE- SALMETEROL 64852456614 Active Ramila Oates POTASSIUM CHLORIDE ER 20 MEQ CR-TABS 1-2 PO BID POTASSIUM CHLORIDE 24576826855 Active Ramila Oates NOVOFINE 30G X 8 MM MISC DIRECTED DX: 250.00 INSULIN PEN NEEDLE 82507756715 Active Ramila Oates PREDNISONE 10 MG TAB 2 PO daily for for 3 days then 1 PO daily for 5 days. PREDNISONE 80940756436 No Longer Active America DE PAZ'Akira NASAL SPRAY (DEXAMETHASONE, GENTAMICIN, SALINE) 2 puffs each nostril TID for [address] DE PAZ'Akira NASAL SPRAY ( DEXAMETHASONE, GENTAMICIN, SALINE) No Longer Active America Hutton CEFDINIR 300 MG CAPS 1 PO BID for 6 weeks CEFDINIR 97513990141 No Longer Active America Hutton PREDNISONE 20 MG TAB 2 pills at once for 2 days then 1 pill daily for 5 days PREDNISONE 79570767155 No Longer Active America Hutton DOXYCYCLINE HYCLATE 100 MG CAP 1 po BID DOXYCYCLINE HYCLATE 79919367824 No Longer Active America Hutton NYSTATIN 664290 U/ML SUSP 5cc PO QID for 7 days NYSTATIN 23978302880 No Longer Active America Hutton NYSTATIN 583956 U/ML SUSP 5cc PO QID for 7 days NYSTATIN 28449163412 No Longer Active America Rivka Hutton ASPIRIN 325 MG TABS 1 PO daily ASPIRIN 62225276145 No Longer Active America Rivka Hutton COZAAR 100 MG TAB 1 PO Daily LOSARTAN POTASSIUM 74255642335 Active Ramila Иван PREDNISONE 20 MG TAB 2 pills at once for 2 days then 1 pill daily for 5 days PREDNISONE 34810893866 No Longer Active America Rivak Hutton DOXYCYCLINE HYCLATE 100 MG CAP 1 po BID DOXYCYCLINE HYCLATE 70273975038 No Longer Active America Rivka Hutton HYZAAR 100-12.5 MG TABS 1 PO daily LOSARTAN POTASSIUM-HCTZ 38073926668 No Longer Active America Rivka Hutton MOBIC 15 MG TABS 1 PO daily for arthritis MELOXICAM 04756705643 Active America Rivka Hutton PREDNISONE 20 MG TAB 2 pills at once for 2 days then 1 pill daily for 5 days PREDNISONE 55350225072 No Longer Active Americaedy Hutton LEVAQUIN 750 MG TABS 1 PO daily LEVOFLOXACIN 49032660460 No Longer Active Americaedy Hutton ANDROGEL PUMP 20.25 MG/ACT (1.62%) GEL rub in two pumps into skin daily TESTOSTERONE 62639530754 No Longer Active America Rivka Hutton ULTRAM 50 MG TAB 1 PO q 6 hrs prn TRAMADOL HCL 16906236679 No Longer Active America Rivka Hutton VITAMIN D 1000 UNIT TABS 1 PO Daily CHOLECALCIFEROL 30965040734 No Longer Active America Rivka Hutton ETODOLAC 400 MG TABS 1 PO BID ETODOLAC 90547244244 No Longer Active America Rivka Hutton LORTAB 7.5 7.5-500 MG TABS 1-2 q 4-6 hrs. prn HYDROCODONE- ACETAMINOPHEN 19111871448 No Longer Active America Rivka Hutton PLAVIX 75 MG TABS 1 po daily CLOPIDOGREL BISULFATE 96610200952 No Longer Active America Rivka Hutton ATARAX 25 MG TAB 1 PO Q6 hours prn HYDROXYZINE HCL Active Rosario Moyer PREDNISONE 20 MG TAB 2 pills at once for 2 days then 1 pill daily for 5 days PREDNISONE 45871301915 No Longer Active America Rivka Hutton ONETOUCH ULTRA BLUE STRP TEST BS QID DX: DIABETES GLUCOSE BLOOD 91444849348 Active Ramila Oates ATARAX 25 MG TAB 1 PO Q6hrs prn HYDROXYZINE HCL No Longer Active Americaedy Hutton PREDNISONE 20 MG TAB 2 pills at once for 2 days then 1 pill daily for 2 days PREDNISONE 95721544404 No Longer Active Americaedy Hutton PEN NEEDLES 5/16" 31G X 8 MM MISC as directed INSULIN PEN NEEDLE 40985454154 No Longer Active Americaedy Hutton NASONEX 50 MCG/ACT SUSP 2 Puffs ea. nostril daily MOMETASONE FUROATE 94438338488 No Longer Active Americaedy Hutton CLARINEX 5 MG TABS 1 po daily DESLORATADINE 82538287569 No Longer Active Americaedy Hutton MIRALAX POWD 1 scoop in 4oz of water PO daily POLYETHYLENE GLYCOL 3350 87678481316 No Longer Active Americaedy Hutton 10% LCD IN THC .1% Apply to arms at bedtime 10% LCD IN THC .1% No Longer Active America Rivka Hutton TRIAMCINOLONE ACETONIDE 0.025 % OINT Apply to rash on arms daily as needed. TRIAMCINOLONE ACETONIDE 10861450868 No Longer Active Americaedy Hutton ONE TOUCH ULTRA TEST STRP Test BS TID DX: Diabetes GLUCOSE BLOOD 51101131169 No Longer Active America Hutton BD U/F SHORT PEN NEEDLE 31G X 8 MM MISC as directed with insulin DX: Diabetes INSULIN PEN NEEDLE 53586340552 No Longer Active America Hutton CIALIS 20 MG TABS 1 PO as directed TADALAFIL 80151273784 No Longer Active America Hutton ONE TOUCH ULTRA MINI W/DEVICE KIT BLOOD GLUCOSE MONITORING SUPPL 84860734730 No Longer Active America Hutton PEN NEEDLES /16" 31G X 8 MM MISC as directed INSULIN PEN NEEDLE 04990864316 No Longer Active America Hutton ATARAX 25 MG TAB 1 PO Q6hrs prn itching HYDROXYZINE HCL No Longer Active America Hutton PREDNISONE 20 MG TAB 2 pills at once for 2 days then 1 pill daily for 2 days PREDNISONE 27923756318 No Longer Active America Hutton METFORMIN HCL 500 MG TABS 1 po daily METFORMIN HCL 21810341681 No Longer Active America Hutton CLOTRIMAZOLE 10 MG TROC Dissolve 1 tab in mouth QID for 14 days CLOTRIMAZOLE 14519240064 No Longer Active Ramila Oates PREDNISONE 20 MG TAB 2 pills at once for 3 days then 1 pill daily for 3 days PREDNISONE 45419545937 No Longer Active America Hutton LEVAQUIN 750 MG TABS 1 PO daily for 7 days LEVOFLOXACIN 08450716000 No Longer Active America Hutton MYCELEX 10 MG TROC Dissovle in mouth QID for 14 days CLOTRIMAZOLE 89541990632 No Longer Active Ramírez Gtz LEVITRA 20 MG TABS 1 po daily prn VARDENAFIL HCL 67456093734 No Longer Active Americaedy Hutton PROAIR HFA AERS Inhale 1-2 puffs 4x daily prn ALBUTEROL SULFATE AERS 45911325357 No Longer Active America Rivka Hutton PREDNISONE 20 MG TAB 3 pills daily at once for 2 days, 2 pills daily at once for 2 days, 1 once daily for 2 days PREDNISONE 29060384484 No Longer Active America Rivka Hutton LEVAQUIN 750 MG TABS 1 PO daily LEVOFLOXACIN 85724482740 No Longer Active Americaedy Hutton HUMALOG KWIKPEN 100 UNIT/ML SOLN 40 units before meals INSULIN LISPRO (HUMAN) 32138648331 No Longer Active Americaedy Hutton MICRONASE 2.5 MG TAB 1 PO BID GLYBURIDE No Longer Active Ramila Oates SYNTHROID 0.025 MG TAB 1 PO Daily on empty stomach LEVOTHYROXINE SODIUM 20021228488 Active Ramila Oates METFORMIN HCL 1000 MG TABS 1 PO BID METFORMIN HCL 78064872798 No Longer Active America Hutton ATROVENT 0.06 % SOLN 2 puffs each nostril TID prn runny nose 2010 IPRATROPIUM BROMIDE 00727535224 No Longer Active Americaedy Hutton VICTOZA 18 MG/3ML SOLN 0.6mg injection once daily for one month, then 1.2mg injection once daily LIRAGLUTIDE 49194038405 No Longer Active Americaedy Hutton FLONASE 50 MCG/DOSE INHALANT 2 puffs each nostril daily FLONASE 50 MCG/ DOSE INHALANT No Longer Active America Hutton ZYRTEC 10 MG TAB 1 PO QD CETIRIZINE HCL No Longer Active Americaedy Hutton FLUCONAZOLE 200 MG TABS 1 PO daily for 5 days FLUCONAZOLE 85055643604 No Longer Active America Rivka Hutton ADVAIR DISKUS 500-50 MCG/DOSE MISC 1 puff BID FLUTICASONE-SALMETEROL 37615108961 No Longer Active America Rivka Hutton LEVAQUIN 500 MG TAB 1 PO QD LEVOFLOXACIN 40055991075 No Longer Active America Rivka Hutton ASTEPRO 137 MCG/SPRAY SOLN 2 puffs each nostril QHS AZELASTINE HCL 17835110002 No Longer Active America Rivka Hutton SPIRIVA HANDIHALER 18 MCG CAPS 1 inhalation daily TIOTROPIUM BROMIDE MONOHYDRATE 30336743936 No Longer Active America Rivka Hutton AZALEA-D 24 HOUR 180-240 MG YX42W-MAN 1 PO daily FEXOFENADINE-PSEUDOEPHEDRINE 12484189244 No Longer Active America Rivka Hutton BACTRIM DS 800-160 MG TAB 1 PO BID TRIMETHOPRIM- SULFAMETHOXAZOLE 42728261658 No Longer Active America Rivka Hutton LEVAQUIN 500 MG TAB 1 PO QD LEVOFLOXACIN 24923212053 No Longer Active America Rivka Hutton PREDNISONE 20 MG TAB 2 pills at once for 2 days then 1 pill daily for 2 days PREDNISONE 93941004866 No Longer Active America Rivka Hutton ROBITUSSIN [...] 1 po daily for 7 days LEVOFLOXACIN 86032686165 No Longer Active America Hutton BACTRIM DS 800-160 MG TAB 1 PO BID TRIMETHOPRIM- SULFAMETHOXAZOLE 13233304856 No Longer Active America Hutton HUMALOG PEN 100 UNIT/ML SOLN 25 units twice daily INSULIN LISPRO (HUMAN) 59345174037 No Longer Active America Hutton LANTUS FOR OPTICLIK 100 UNIT/ML SOLN 20 units injection every night 09/09 INSULIN GLARGINE 55005473298 No Longer Active America Hutton ROBITUSSIN A-C 10-100 MG/5ML SYRUP 1 teaspoon PO Q 4-6 hr prn ROBITUSSIN A-C 10-100 MG/5ML SYRUP No Longer Active Ramila DE PAZ'Akira NASAL SPRAY (DEXAMETHASONE, GENTAMICIN, SALINE) 2 puffs each nostril TID for [address] STRAUSS NASAL SPRAY ( DEXAMETHASONE, GENTAMICIN, SALINE) No Longer Active America Hutton AUGMENTIN 875-125 MG TAB 1 PO BID AMOXICILLIN-POT CLAVULANATE 05326910781 No Longer Active America Hutton ROBITUSSIN A-C 10-100 MG/5ML SYRUP 1 teaspoon PO Q 4-6 hr prn ROBITUSSIN A-C 10-100 MG/5ML SYRUP No Longer Active America STRAUSS NASAL SPRAY (DEXAMETHASONE, GENTAMICIN, SALINE) 2 puffs each nostril TID for [address] STRAUSS NASAL SPRAY ( DEXAMETHASONE, GENTAMICIN, SALINE) No Longer Active Barron Dilworth LEVAQUIN 500 MG TAB 1 PO QD LEVOFLOXACIN 82260461993 No Longer Active Barron Joi PREDNISONE 20 MG TAB 2 pills at once for 2 days then 1 pill daily for 2 days PREDNISONE 04338664917 No Longer Active America STRAUSS NASAL SPRAY (DEXAMETHASONE, GENTAMICIN, SALINE) 2 puffs each nostril TID for [address] STRAUSS NASAL SPRAY ( DEXAMETHASONE, GENTAMICIN, SALINE) No Longer Active America Hutton AMOXICILLIN 500 MG CAP 1 PO TID AMOXICILLIN 61124866819 No Longer Active America Hutton LISINOPRIL 10 MG TABS 1 PO Daily LISINOPRIL 08834796852 No Longer Active Ramila Oates FLOMAX 0.4 MG CP24 1 PO QHS for prostate TAMSULOSIN HCL 84445271143 No Longer Active America Hutton MAGNESIUM OXIDE 400 MG TABS 1 PO daily MAGNESIUM OXIDE 42431865463 Active Suyapa Shahnaz LASIX 20 MG TAB Take 2 PO BID FUROSEMIDE 19384628651 Active Ramila Oates KEFLEX 500 MG CAP 1 PO TID for 7 days CEPHALEXIN 11508102617 No Longer Active America Hutton ATROVENT 0.06 % SOLN 2 puffs each nostril TID prn runny nose 2008 IPRATROPIUM BROMIDE 78798857563 No Longer Active America Hutton PREDNISONE 20 MG TAB 3 pills daily at once for 3 days, 2 pills daily at once for 3 days, 1 once daily for 3 days PREDNISONE 50324301895 No Longer Active America Hutton LEVAQUIN 500 MG TAB 1 PO QD LEVOFLOXACIN 72198357264 No Longer Active America Hutton CRESTOR 5 MG TABS 1 PO daily ROSUVASTATIN CALCIUM 57956128470 Active America Hutton PREDNISONE 20 MG TAB 2 pills at once for 2 days then 1 pill daily for 2 days PREDNISONE 35772992208 No Longer Active America STRAUSS NASAL SPRAY (DEXAMETHASONE, GENTAMICIN, SALINE) 2 puffs each nostril TID for [address] STRAUSS NASAL SPRAY ( DEXAMETHASONE, GENTAMICIN, SALINE) No Longer Active America Hutton AUGMENTIN 875-125 MG TAB 1 PO BID AMOXICILLIN-POT CLAVULANATE 92817969759 No Longer Active America Hutton BIAXIN 500 MG TAB 1 PO BID for 7 days CLARITHROMYCIN 65242055210 No Longer Active [facility] ALBUTEROL SULFATE (2.5 MG/3ML) 0.083% NEBU 1 treatment QID ALBUTEROL SULFATE 80520743583 Active America Hutton ROBITUSSIN A-C 10-100 MG/5ML SYRUP 1 teaspoon PO Q 4-6 hr prn ROBITUSSIN A-C 10-100 MG/5ML SYRUP 05371274601 No Longer Active Y Y DOXYCYCLINE HYCLATE 100 MG CAP 1 po BID. Take with food to avoid nausea. 2007 DOXYCYCLINE HYCLATE 42560571066 No Longer Active Y Y BIAXIN 500 MG TAB 1 PO BID for lung infection CLARITHROMYCIN 66222410001 No Longer Active America Hutton MEVACOR 40 MG TABS 1 PO daily LOVASTATIN 90856688303 No Longer Active America Hutton BYETTA 10 MCG PEN SOLN i injection am and at supper(On hold 09/04/07 while re- starting Humalog) EXENATIDE SOLN 53080851955 No Longer Active America Hutton LEVITRA 10 MG TABS 1 PO as directed VARDENAFIL HCL 56781381746 No Longer Active Tyler Bolton AUGMENTIN 500-125 MG TAB 1 PO BID AMOXICILLIN-POT CLAVULANATE 06441754352 No Longer Active Ramila STRAUSS NASAL SPRAY [...] 1 MG TABS as directed VARENICLINE TARTRATE 68856594429 No Longer Active America Rivka Hutton LEVEMIR FLEXPEN SOLN 15 units QHS INSULIN DETEMIR SOLN 38057467704 No Longer Active America Rivka Hutton CIALIS 20 MG TABS 1po daily prn TADALAFIL 95066543927 No Longer Active America Rivka Hutton VIAGRA 50 MG TABS Take 1 PO prn SILDENAFIL CITRATE 56624486227 No Longer Active America Rivka Hutton LOTRISONE 1-0.05 % CREA Apply to both arms BID CLOTRIMAZOLE-BETAMETHASONE 47777520392 No Longer Active America Rivka Hutton LEVAQUIN 500 MG TAB 1 PO QD LEVOFLOXACIN 18336680962 No Longer Active Americaedy Hutton SPIRONOLACTONE 25 MG TABS 2 po daily SPIRONOLACTONE 45977904538 Active Ramila Oates TAMIFLU 75 MG CAPS 1 po BID x 5 days OSELTAMIVIR PHOSPHATE 28182580534 No Longer Active America Rivka Hutton LANTUS FOR OPTICLIK 100 UNIT/ML SOLN 10 units QHS INSULIN GLARGINE 21178273869 No Longer Active America Rivka Hutton ATROVENT 0.06 % SOLN 2 puffs each nostril BID x 7 days IPRATROPIUM BROMIDE 96754179266 No Longer Active America Rivka Hutton AUGMENTIN 875-125 MG TABS 1 po BID for 7 days. AMOXICILLIN-POT CLAVULANATE 50312188849 No Longer Active America Rivka Hutton AZALEA 180 MG TABS 1 po daily FEXOFENADINE HCL 34146828121 No Longer Active America Hutton PYRIDIUM 200 MG TABS 1 po TID for 3 days PHENAZOPYRIDINE HCL 43629330873 No Longer Active America Hutton ZAROXOLYN 5 MG TABS 1 PO daily METOLAZONE Active Ramila [place] NOVOLOG PENFILL SOLN 4 units before meals INSULIN ASPART SOLN 50234977559 No Longer Active America Arellanoner Immunizations Vaccine [...] % Encounters Code Encounter Date Provider Facility CPT-87868 Ofc Vst, Est Level III 17:18:19 CDT America Rivka Anni Arellanoner, DO, FACP CPT-00591 Ofc Vst, Est Level IV 15:55:02 CDT America Rivka Anni Hutton, DO, FACP CPT-33511 Ofc Vst, Est Level IV 12:24:37 BENDING PRESS OPERATOR America Rivka Anni Hutton, DO, FACP CPT-29015 Ofc Vst, Est Level IV 17:38:12 CDT America Rivka Anni Hutton, DO, FACP CPT-33176 Ofc Vst, Est Level III 14:37:41 CDT America Rivka Anni Hutton, DO, FACP CPT-54371 Ofc Vst, Est Level III 12:43:48 BENDING PRESS OPERATOR America Rivka Anni Hutton, DO, FACP CPT-23254 Ofc Vst, Est Level IV 10:57:08 BENDING PRESS OPERATOR America Hutton, DO, FACP CPT-26938 Ofc Vst, Est Level IV 16:59:13 CDT America Rivka Anni Hutton, DO, FACP CPT-03080 Ofc Vst, Est Level IV 16:43:56 CDT America Rivkabobbi [facility] CPT-54244 Ofc Vst, Est Level III 16:27:39 CDT Americaedy Hutton, DO, FACP CPT-63174 Ofc Vst, Est Level IV 14:14:50 CDT America Rivka Anni Hutton, DO, FACP CPT-26753 Ofc Vst, Est Level III 11:30:50 CDT Americaedy Champion Hutton, DO, FACP CPT-07136 Ofc Vst, Est Level III 16:29:28 CDT America Champion Hutton, DO, FACP CPT-50232 Ofc Vst, Est Level IV 16:50:49 BENDING PRESS OPERATOR Americaedy Champion Hutton, DO, FACP CPT-24472 Ofc Vst, Est Level IV 11:54:05 CDT Americaedy Champion Hutton, DO, FACP CPT-20828 Ofc Vst, Est Level IV 10:52:34 CDT America Champion Hutton, DO, FACP CPT-28810 Ofc Vst, Est Level IV 11:30:28 BENDING PRESS OPERATOR America Champion Anni, DO, FACP CPT-09038 Ofc Vst, Est Level IV 10:48:08 BENDING PRESS OPERATOR America Champion Hutton, DO, FACP CPT-90979 Ofc Vst, Est Level IV 11:36:11 CDT America Champion Hutton, DO, FACP CPT-86586 Ofc Vst, Est Level IV 10:59:29 CDT Americaedy Champion Hutton, DO, FACP CPT-21864 Ofc Vst, Est Level IV 11:57:28 CDT Americaedy Champion Hutton, DO, FACP CPT-12594 Ofc Vst, Est Level IV 11:04:42 BENDING PRESS OPERATOR America Champion Hutton, DO, FACP CPT-78670 Ofc Vst, Est Level V 11:03:29 BENDING PRESS OPERATOR America Champion Anni, DO, FACP CPT-78251 Ofc Vst, Est Level IV 10:53:30 CDT America Rivka Champion Hutton, DO, FACP CPT-76244 Ofc Vst, Est Level IV 11:12:42 CDT America Rivka Champion Hutotn, DO, FACP CPT-77420 Ofc Vst, Est Level IV 11:25:49 CDT America Rivka Champion Hutton, DO, FACP CPT-56648 Ofc Vst, Est Level IV 14:19:05 CDT America Rivka Champion Hutton, DO, FACP CPT-74691 Ofc Vst, Est Level V 15:01:50 BENDING PRESS OPERATOR America Hutton [facility] CPT-43109 Ofc Vst, Est Level IV 11:18:30 BENDING PRESS OPERATOR America Rivka Champion Anni, DO, FACP CPT-57748 Ofc Vst, Est Level IV 14:33:19 CDT America Rivka Champion Hutton, DO, FACP CPT-04500 Ofc Vst, Est Level IV 14:24:09 CDT America Rivka Champion Hutton, DO, FACP CPT-50758 Ofc Vst, Est Level IV 16:24:25 CDT Americaedy Hutton [facility] CPT-01613 Ofc Vst, Est Level V 12:06:18 CDT America Rivka Champion Hutton, DO, FACP CPT-22782 Ofc Vst, Est Level IV 11:32:52 CDT America Rivka Cross S Hutton, DO, FACP CPT-03607 Ofc Vst, Est Level V 15:54:46 CDT America Rivka Champion Hutton, DO, FACP CPT-20985 Ofc Vst, Est Level IV 14:32:33 CDT America Rivka Champion Hutton, DO, FACP CPT-35763 Ofc Vst, Est Level IV 14:06:04 BENDING PRESS OPERATOR America Champion Hutton, DO, FACP CPT-02768 Ofc Vst, Est Level IV 10:36:45 BENDING PRESS OPERATOR America Champion Hutton, DO, FACP CPT-21360 Ofc Vst, Est Level IV 13:12:16 CDT America Rivka Champion Hutton, DO, FACP CPT-44989 Ofc Vst, Est Level IV 15:20:36 CDT America Rivka Champion Hutton, DO, FACP CPT-16755 Ofc Vst, Est Level III 12:05:11 CDT America Rivka Champion Hutton, DO, FACP CPT-74788 Ofc Vst, Est Level III 13:05:33 CDT Americaedy Champion Hutton, DO, FACP CPT-66572 Ofc Vst, Est Level IV 14:09:19 CDT Americaedy Champion Hutton, DO, FACP CPT-83441 Ofc Vst, Est Level IV 14:00:30 BENDING PRESS OPERATOR America Champion Hutton, DO, FACP CPT-27411 Ofc Vst, Est Level IV 17:29:08 BENDING PRESS OPERATOR America Champion Hutton, DO, FACP CPT-76435 Ofc Vst, Est Level III 13:45:01 BENDING PRESS OPERATOR America Champion Hutton, DO, FACP CPT-41578 Ofc Vst, Est Level IV 15:24:26 BENDING PRESS OPERATOR America Cross S Hutton, DO, FACP CPT-18717 Ofc Vst, Est Level IV 15:54:58 BENDING PRESS OPERATOR America Champion Hutton, DO, FACP CPT-96511 Ofc Vst, Est Level IV 10:17:27 BENDING PRESS OPERATOR Americaedy Champion DO Anni, FACP CPT-75995 Ofc Vst, Est Level IV 11:40:37 CDT America Rivka Hutton Americaedy Hutton DO, FACP CPT-97807 Ofc Vst, New Level IV 17:22:52 CDT America Arellanoner Americaedy Hutton DO, FACP Procedures Code Procedure Name Date Entry Date Standard Description CPT-71159 Preventive, Est, (40-64) 13:27:46 CDT CPT-88054 Preventive, Est, (40-64) 21:40:47 CDT CPT-77592 Preventive, Est, (40-64) 20:22:44 BENDING PRESS OPERATOR CPT-64333 Injection 11:25:49 CDT CPT-35758 Injection 14:19:05 CDT CPT-27990 Injection 14:33:19 CDT CPT-00400 Injection 14:24:09 CDT CPT-57832 Injection 16:24:25 CDT CPT-26248 Injection 14:32:33 CDT CPT-77747 Injection 14:06:04 BENDING PRESS OPERATOR CPT-95277 Biopsy, skin/subcut/mucous membrane; sngl lsn 14:21:51 CDT CPT-G0008 Administration Influenza Vaccine 11:40:37 CDT CPT-60762 Influenza Vaccine 11:40:37 CDT
[2017-04-21 14:46] LABS: INR 1.6 (0.8-1.4); PROTHROMBIN TIME PATIENT 18.6 SEC (12.2-14.7)
[2017-04-21 14:53] LABS: ALANINE AMINOTRANSFERASE 22 U/L (0-55); ALBUMIN 4.1 GM/DL (3.2-4.5); ANION GAP 11 MMOL/L (5-14); ASPARTATE AMINO TRANSFERASE 21 U/L (5-34); BILIRUBIN,TOTAL 0.6 MG/DL (0.1-1.0); BLOOD UREA NITROGEN 21 MG/DL (7-18); BUN/CREATININE RATIO 13; CALCIUM 9.5 MG/DL (8.5-10.1); CARBON DIOXIDE 22 MMOL/L (21-32); CHLORIDE 105 MMOL/L (98-107); CREATINE KINASE 73 U/L (30-200); GFR ESTIMATED 43; GLUCOSE 87 MG/DL (70-105); MAGNESIUM 2.2 MG/DL (1.8-2.4); POTASSIUM 3.9 MMOL/L (3.6-5.0); SODIUM 138 MMOL/L (135-145); TOTAL PROTEIN 8.2 GM/DL (6.4-8.2)
[2017-04-21 14:59] LABS: TROPONIN I < 0.30 NG/ML (<0.30)
--- NOTE | 2017-04-21 15:59 | Diagnostic Imaging Report ---
EXAM: chest 1 view, AP/PA only. INDICATION: Shortness of breath. COMPARISON: Chest radiograph of 08/30/2016. FINDINGS: Persistent cardiomegaly and pulmonary venous congestion. No dense consolidation, pleural effusion or pneumothorax. Sternotomy. IMPRESSION: Persistent cardiomegaly and pulmonary venous congestion. Dictated by: Dictated on workstation # [id number]
[2017-04-21] MEDS ORDERED: RT-ALBUTEROL/IPRATROPIUM 3 ML (DUONEB) VIAL INH ONE (16:15)
[2017-04-21] MEDS ORDERED: methylPREDNISolone 125 MG (Solu-MEDROL) VIAL IVP ONE (16:15)
[2017-04-21] MEDS ORDERED: FUROSEMIDE 40 MG/4 ML INJ (LASIX) IVP ONE (16:15)
[2017-04-21] MEDS ORDERED: DEXAMETHASONE 4 MG/ML SDV (DECADRON) IH ONE (16:15)
--- NOTE | 2017-04-21 16:58 | History & Physical-Hospitalist ---
HPI History of Present Illness: HPI/Chief Complaint chief complaint: Shortness of breath History of present illness:Patient is a 66-year-old male with a past medical history of coronary disease status post CABG and stenting hypertension chronic A. fib obstructive sleep apnea and some lipid and diabetes type II chronic kidney disease and congestive heart failure who presented to the emergency department with chief complaint of shortness of breath for the past one week to 10 days. He reports it's been getting worse over the past few days , He denies any fever or sputum production but he does have a dry cough. He has dyspnea on exertion that he is mostly wheelchair-bound and is hard for him to even transfer. He does not wear oxygen at home he had previously worn it for 10 years but for the past year he has had no longer worn it. He is noticed increased swelling in his legs and orthopnea. He does endorse a history of asthma but denies any wheezing or increased inhaler use. Source: patient, RN/MD, old records Exam Limitations: no limitations Date Seen 04/21/17 Time Seen by Provider: 16:30 Attending Physician Branden Santiago MD PCP Abilio Schwarz DO Referring Physician Date of Admission Home Medications & Allergies Home Medications Reviewed patient Home Medication Reconciliation Form Allergies Allergies Coded Allergies Dfgvlal-Xdx-Ryi Reductase Inhibitor (Verified Allergy, Unknown, 11/27/15) codeine (Verified Allergy, Unknown, 11/27/15) fish oil (Verified Allergy, Unknown, 11/27/15) Past Rxnzobv-Gzwlhf-Vkienk Hx Patient Social History Marrital Status: Alcohol Use: Occasionally Uses Alcohol Beverage of Choice: Other Recreational Drug Use: No Smoking Status: Former Smoker (1 PPD, QUIT APPROXIMATELY 2006, PER PT ON ) Former Smoker, Quit: Aug 13, 1996 Type Used: Cigarettes Recent Foreign Travel: No Contact w/other who traveled: No Recent Hopitalizations: No Recent Infectious Disease Expo: No Immunizations Up To Date Tetanus Booster (TDap): Less than 5yrs Date of Pneumonia Vaccine: May 13, 2015 Date of Influenza Vaccine: May 13, 2016 Seasonal Allergies Seasonal Allergies: Yes Surgeries Yes (CABG; STENTS X 2 ) Adenoidectomy, Cardiac, CABG, Coronary Stent, Tonsillectomy, Transurethral Resection, Vasectomy Respiratory Yes (SEVERE ASTHMA/COPD, CHRONIC RESP/LUNG INFECTION; HX OF PEANUT ASPIRATION) Chronic Bronchitis, COPD, Pneumonia, Sleep Apnea Currently Using CPAP: Yes Cardiovascular Yes Chronic Edema/Swelling, Coronary Artery Disease, Heart Attack, High Cholesterol , Hypertension Neurological Yes Neuropathy Reproductive System Hx Reproductive Disorders: No Genitourinary Yes Benign Prostatic Hyperpl, UTI-Chronic Gastrointestinal Yes Gastroesophageal Reflux, Irritable Bowel Musculoskeletal Yes (MINIMALLY AMBULATORY DUE TO OBESITY--USES ELECTRIC WHEELCHAIR) Arthritis Endocrine History of Endocrine Disorders: Yes (MORBID OBESITY) Endocrine Disorders: Diabetes, Insulin dep, Hypothyroidsim HEENT History of HEENT Disorders: No Cancer No Psychosocial History of Psychiatric Problem: Yes Behavioral Health Disorders: Sleep Difficulties, Anxiety Integumentary History of Skin or Integumenta: Yes Skin/Integumentary Disorders: Pruritis Blood Transfusions History of Blood Disorders: No Adverse Reaction to a Blood Tr: No Family Medical History Significant Family History: Asthma, Heart Disease, Hypertension Family Hx: Cancer 03 FATHER Congestive heart failure 03 MOTHER Family history: Arthritis 03 MOTHER Family history: Asthma 03 MOTHER Family history: Cardiovascular disease 03 MOTHER Family history: Diabetes mellitus 09 BROTHER Family history: Gastrointestinal disease 03 FATHER History of drug abuse 09 BROTHER Review of Systems Constitutional: No chills, No fever EENTM: No blurred vision, No double vision Respiratory: cough, dyspnea on exertion, orthopnea, No phlegm, short of breath , No wheezing Cardiovascular: No chest pain, No palpitations Gastrointestinal: No abdominal pain, No constipation, No diarrhea, No nausea, No vomiting Genitourinary: No dysuria, No frequency Musculoskeletal: joint pain Skin: No lesions, No rash Psychiatric/Neurological: Denies Headache, Denies Weakness Physical Exam Physical Exam Vital Signs Vital Sign - Last 12Hours 04/21/17 14:15 Temp 98.9 Pulse 66 Resp 26 B/P (MAP) 120/72 Pulse Ox 94 O2 Delivery Nasal Cannula O2 Flow Rate 2.00 Capillary Refill : Less Than 3 Seconds General Appearance: No Apparent Distress, Obese HEENT: PERRL/EOMI, No Scleral Icterus (L), No Scleral Icterus (R) Neck: Non Tender, Supple, JVD Respiratory: No Accessory Muscle Use, No Respiratory Distress, Crackles, Wheezing Cardiovascular: No No Murmur, Normal Peripheral Pulses, Irregularly Irregular Gastrointestinal: Normal Bowel Sounds, Non Tender, Soft Extremity: No Calf Tenderness, Swelling (3-4+ pitting edema bilaterally to knees) Neurologic/Psychiatric: Alert, Oriented x3, Normal Mood/Affect Skin: Normal Color, Warm/Dry, Other (venous stasis dermatitis noted bilaterally ) Results Results/Procedures Lab Laboratory Tests 04/21/17 14:25 Radiology Chest 1 View: IMPRESSION: Persistent cardiomegaly and pulmonary venous congestion. Assessment/Plan Admission Diagnosis Acutely decompensated heart failure Diagnosis/Problems Diagnosis/Problems (1) Congestive heart failure with preserved LV function, NYHA class 3 Status: Acute Assessment & Plan: Acutely decompensated heart failure CXR consistent with vascular congestion Review of old echos shows essentially preserved EF Will diurese with IV lasix Monitor I/Os Low Na Diet Fluid Restrict 1.5L (2) COPD (chronic obstructive pulmonary disease) Status: Chronic Assessment & Plan: Wheezing on exam as well but less rest of exam less consistent with COPD exacerbation MAT Protocol and Duonebs Will hold further steroids (3) Essential (primary) hypertension Status: Chronic Assessment & Plan: Well controlled, continue home medications (4) Hypothyroidism Status: Chronic Assessment & Plan: Continue home Synthroid Qualifiers: Qualified Codes: E03.9 - Hypothyroidism, unspecified (5) JOSE MANUEL (obstructive sleep apnea) Status: Chronic Assessment & Plan: Wears CPAP, reports will bring in home CPAP to wear tonight (6) Obesity hypoventilation syndrome Status: Chronic (7) Chronic kidney disease Status: Chronic Assessment & Plan: At baseline, will watch renal function with diuresis (8) CAD (coronary artery disease) Status: Chronic Assessment & Plan: At baseline, continue on Plavix Has allergy to Statin Qualifiers: Qualified Codes: I25.810 - Atherosclerosis of coronary artery bypass graft(s ) without angina pectoris (9) IDDM (insulin dependent diabetes mellitus) Status: Chronic Assessment & Plan: Continue on home insulin SSI B (10) Chronic atrial fibrillation Status: Chronic Assessment & Plan: Rate well controlled Continue Eliquis (11) Prophylactic measure Assessment & Plan: Eliquis for a-fib, no further DVT ppx Low Sodium Diet Saline Lock BRANDEN SANTIAGO MD Apr 21, 2017 16:58
[2017-04-21] MEDS ORDERED: PATIENT MAY USE OWN MEDS, ALL MC SCH (17:30)
[2017-04-21] MEDS ORDERED: RT-ALBUTEROL SULF 2.5 MG/3 ML PRE-MIX VIAL IH PRN (17:30)
[2017-04-21] MEDS ORDERED: PATIENT MAY USE OWN MEDS, ALL PO SCH (17:30)
[2017-04-21] MEDS ORDERED: ACETAMINOPHEN 325 MG TABLET/CAPLET (TYLENOL) PO PRN (18:00)
[2017-04-21] MEDS ORDERED: ANTACID SUSP 30 ML UDC (MYLANTA) PO PRN (18:00)
[2017-04-21] MEDS ORDERED: MILK OF MAGNESIA 400 MG/5 ML 30 ML UDC PO PRN (18:00)
[2017-04-21] MEDS ORDERED: HYDROcodone/APAP 7.5 MG/325 MG (LORTAB, LORCET PLUS) TABLET PO PRN (18:00)
[2017-04-21] MEDS: RT-ALBUTEROL/IPRATROPIUM 3 ML (DUONEB) VIAL INH SCH ×2 (18:37→21:58)
[2017-04-21] MEDS: KCL 20 MEQ TAB (K-DUR) PO SCH (18:53)
[2017-04-21] MEDS: inSUlin ASPART (NovoLOG) 1 UNIT/0.01 ML (CHARGE PER UNIT) SC SCH ×2 (18:54→21:25)
[2017-04-21 20:00] VITALS: BP 177/83
[2017-04-21] MEDS: ROSUVASTATIN 5 MG (CRESTOR) TABLET PO SCH (21:24)
[2017-04-21] MEDS: APIXABAN 5 MG (ELIQUIS) TABLET PO SCH (21:24)
[2017-04-21] MEDS: methylPREDNISolone 125 MG (Solu-MEDROL) VIAL IV SCH (21:24)
[2017-04-21] MEDS: inSUlin DETERMIR 1 UNIT/0.01 ML (LEVEMIR) CHARGE PER UNIT SQ SCH (21:25)
[2017-04-21] MEDS: FUROSEMIDE 40 MG/4 ML INJ (LASIX) IV SCH (21:29)
[2017-04-21] MEDS ORDERED: FUROSEMIDE 40 MG/4 ML INJ (LASIX) IV SCH (22:00)
[2017-04-22] VITALS (10 sets, daily range): BP systolic 100–151; BP diastolic 55–98
[2017-04-22] MEDS: inSUlin ASPART (NovoLOG) 1 UNIT/0.01 ML (CHARGE PER UNIT) SC SCH ×14 (00:29→21:42)
[2017-04-22] MEDS: RT-ALBUTEROL/IPRATROPIUM 3 ML (DUONEB) VIAL INH SCH ×6 (02:02→22:26)
[2017-04-22] MEDS: methylPREDNISolone 125 MG (Solu-MEDROL) VIAL IV SCH (02:47)
[2017-04-22 04:55] LABS: BASOPHILS % (AUTO) 0 % (0-10); EOSINOPHILS % (AUTO) 0 % (0-10); LYMPHOCYTES # (AUTO) 0.8 X 10^3 (1.0-4.0); LYMPHOCYTES % (AUTO) 7 % (12-44); MEAN CORPUSCULAR HEMOGLOBIN 28 PG (25-34); MEAN CORPUSCULAR HGB CONC 33 G/DL (32-36); MEAN CORPUSCULAR VOLUME 85 FL (80-99); MONOCYTES # (AUTO) 0.1 X 10^3 (0.0-1.0); MONOCYTES % (AUTO) 1 % (0-12); NEUTROPHILS # (AUTO) 11.7 X 10^3 (1.8-7.8); NEUTROPHILS % (AUTO) 93 % (42-75); PLATELET COUNT 229 10^3/uL (130-400); RED BLOOD COUNT 3.99 10^6/uL (4.35-5.85); RED CELL DISTRIBUTION WIDTH 17.5 % (10.0-14.5); WHITE BLOOD COUNT 12.6 10^3/uL (4.3-11.0)
[2017-04-22 05:16] LABS: ALBUMIN 4.1 GM/DL (3.2-4.5); BILIRUBIN,TOTAL 0.5 MG/DL (0.1-1.0); CALCIUM 9.1 MG/DL (8.5-10.1); CREATININE SERUM 2.11 MG/DL (0.60-1.30); POTASSIUM 3.7 MMOL/L (3.6-5.0); TOTAL PROTEIN 8.1 GM/DL (6.4-8.2)
[2017-04-22] MEDS ORDERED: DEXTROSE 50% 50 ML (IMS) SYR IV PRN (06:30)
[2017-04-22] MEDS ORDERED: inSUlin (REGULAR) HUMAN 1 UNIT/0.01 ML (CHARGE PER UNIT) IV PRN (06:30)
[2017-04-22] MEDS: KCL 20 MEQ TAB (K-DUR) PO SCH ×2 (06:58→19:27)
[2017-04-22] MEDS: PANTOPRAZOLE 40 MG (PROTONIX) TAB PO SCH (06:58)
[2017-04-22] MEDS: LEVOTHYROXINE 25 MCG (LEVOTHROID) TAB PO SCH (06:58)
[2017-04-22] MEDS: APIXABAN 5 MG (ELIQUIS) TABLET PO SCH ×2 (08:31→22:34)
[2017-04-22] MEDS: FUROSEMIDE 40 MG/4 ML INJ (LASIX) IV SCH ×2 (08:31→21:41)
[2017-04-22] MEDS: DILTIAZEM 240 MG (CARDIZEM CD) CAP PO SCH (08:31)
[2017-04-22] MEDS: INSULIN DRIP 250 UNITS/NS 250 ML IV SCH ×2 (08:31)
[2017-04-22] MEDS: meTOproloL SUCCINATE 50 MG (TOPROL XL) TAB PO SCH (08:32)
[2017-04-22] MEDS: CLOPIDOGREL 75 MG (PLAVIX) TABLET PO SCH (08:32)
--- NOTE | 2017-04-22 09:39 | Diagnostic Imaging Report ---
INDICATION: Shortness of breath. Comparison with 04/21/2017. FINDINGS: There has been increasing cardiac size. There has been development of bilateral pulmonary venous congestion with bilateral interstitial infiltrates. Could not exclude small pleural effusions as well. IMPRESSION: 1. Finding consistent with congestive failure with cardiomegaly and increasing bilateral interstitial infiltrates as well as pulmonary venous congestion. Dictated by: Dictated on workstation # [id number]
[2017-04-22] MEDS: RT-ADVAIR HFA 115/21 MCG PER PUFF IH SCH ×2 (10:19→19:01)
[2017-04-22] MEDS: UMECLIDINIUM BROMIDE (INCRUSE ELLIPTA) 7'S IH SCH (10:19)
--- NOTE | 2017-04-22 11:15 | Progress Note-Hospitalist ---
Subjective HPI/CC On Admission Date Seen by Provider: Apr 22, 2017 Time Seen by Provider: 10:55 chief complaint: Shortness of breath History of present illness:Patient is a 66-year-old male with a past medical history of coronary disease status post CABG and stenting hypertension chronic A. fib obstructive sleep apnea and some lipid and diabetes type II chronic kidney disease and congestive heart failure who presented to the emergency department with chief complaint of shortness of breath for the past one week to 10 days. He reports it's been getting worse over the past few days , He denies any fever or sputum production but he does have a dry cough. He has dyspnea on exertion that he is mostly wheelchair-bound and is hard for him to even transfer. He does not wear oxygen at home he had previously worn it for 10 years but for the past year he has had no longer worn it. He is noticed increased swelling in his legs and orthopnea. He does endorse a history of asthma but denies any wheezing or increased inhaler use. Subjective/Events-last exam Pt. reports feeling slightly better than yesterday. Still feels somewhat SOB but feels less swollen. Continue to have good urine output.Is worried about getting oxygen back at his home. Objective Exam Vital Signs Vital Sign - Last 12Hours 04/21/17 14:15 Temp 98.9 Pulse 66 Resp 26 B/P (MAP) 120/72 Pulse Ox 94 O2 Delivery Nasal Cannula O2 Flow Rate 2.00 Capillary Refill : Less Than 3 Seconds General Appearance: No Apparent Distress, WD/WN Respiratory: Decreased Breath Sounds (bilateral bases, no crackles/wheezes) Cardiovascular: Regular Rate, Rhythm, No Murmur Gastrointestinal: Normal Bowel Sounds, Non Tender, Soft Neurologic/Psychiatric: Alert, Oriented x3 Results/Procedures Lab Laboratory Tests 04/21/17 14:25 04/22/17 04:05 04/22/17 04:08 Assessment/Plan Assessment and Plan Assess & Plan/Chief Complaint CHF exacerbation Diagnosis/Problems Diagnosis/Problems (1) Congestive heart failure with preserved LV function, NYHA class 3 Status: Acute Assessment & Plan: Acutely decompensated heart failure CXR consistent with vascular congestion Review of old echos shows essentially preserved EF Continue to diurese with IV lasix Monitor I/Os Low Na Diet Fluid Restrict 1.5L (2) IDDM (insulin dependent diabetes mellitus) Status: Chronic Assessment & Plan: Blood sugars very elevated overnight, DC steroids Concerning for DKA (new acidosis on BMP this AM) but given fluid overloaded and already apparent respiratory compromise will hold IVF for now Started on insulin gtt A1c ordered Repeat BMP ordered for now (3) Chronic kidney disease Status: Chronic Assessment & Plan: Near baseline (baseline ~1.8), but up from yesterday If further elevation tomorrow will need to adjust lasix dosing (4) COPD (chronic obstructive pulmonary disease) Status: Chronic Assessment & Plan: Wheezing on exam as well but rest of exam less consistent with COPD exacerbation MAT Protocol and Duonebs Will hold further steroids (5) Essential (primary) hypertension Status: Chronic Assessment & Plan: Well controlled, continue home medications (6) Hypothyroidism Status: Chronic Assessment & Plan: Continue home Synthroid Qualifiers: Qualified Codes: E03.9 - Hypothyroidism, unspecified (7) JOSE MANUEL (obstructive sleep apnea) Status: Chronic Assessment & Plan: Wears CPAP, reports will bring in home CPAP to wear tonight (8) Obesity hypoventilation syndrome Status: Chronic (9) CAD (coronary artery disease) Status: Chronic Assessment & Plan: At baseline, continue on Plavix Has allergy to Statin Qualifiers: Qualified Codes: I25.810 - Atherosclerosis of coronary artery bypass graft(s ) without angina pectoris (10) Chronic atrial fibrillation Status: Chronic Assessment & Plan: Rate well controlled Continue Eliquis (11) Prophylactic measure Assessment & Plan: Eliquis for a-fib, no further DVT ppx Low Sodium Diet Saline Lock BRANDEN DELACRUZ MD Apr 22, 2017 11:15
[2017-04-22 12:53] LABS: CALCIUM 9.5 MG/DL (8.5-10.1); CREATININE SERUM 2.08 MG/DL (0.60-1.30); POTASSIUM 3.2 MMOL/L (3.6-5.0)
[2017-04-22] MEDS ORDERED: SULF-11 PO (16:48)
[2017-04-22] MEDS ORDERED: MELO15TA39 PO (16:48)
[2017-04-22] MEDS ORDERED: POTA10TA10 PO (16:48)
[2017-04-22] MEDS ORDERED: MONT10TA24 PO (16:48)
[2017-04-22] MEDS ORDERED: INSU100I23 SQ (16:48)
[2017-04-22] MEDS ORDERED: SPIR25TA3 PO (16:48)
[2017-04-22] MEDS ORDERED: FURO40TA4 PO (16:48)
[2017-04-22] MEDS ORDERED: METO5TAB6 PO (16:48)
[2017-04-22] MEDS ORDERED: TAMS0.4C2 PO (16:48)
[2017-04-22] MEDS ORDERED: ONDA8TAB13 PO (16:48)
[2017-04-22 21:05] LABS: CALCIUM 9.6 MG/DL (8.5-10.1); CREATININE SERUM 2.23 MG/DL (0.60-1.30); MAGNESIUM 2.1 MG/DL (1.8-2.4); POTASSIUM 3.2 MMOL/L (3.6-5.0)
[2017-04-22] MEDS ORDERED: D5 NS 1000 ML IV SOLUTION 1,000 ML IV ONE (21:23)
[2017-04-22] MEDS ORDERED: POTASSIUM CL 10MEQ/50ML IVPB 300 ML IV ONE (21:24)
[2017-04-22] MEDS ORDERED: MAGNESIUM 1 GM/100 ML IVPB 200 ML IV ONE (21:24)
[2017-04-22] MEDS ORDERED: LIDOCAINE UROJET 2% GEL 10 ML PKG ONE (21:39)
[2017-04-22] MEDS: inSUlin DETERMIR 1 UNIT/0.01 ML (LEVEMIR) CHARGE PER UNIT SQ SCH (21:42)
[2017-04-22] MEDS: POTASSIUM CL 10 MEQ/50 ML IVPB (PRE-MIX) IV SCH ×2 (22:19→23:28)
[2017-04-22] MEDS: MAGNESIUM 1 GM/D5W 100 ML IVPB IV SCH ×2 (22:23→23:28)
[2017-04-22] MEDS: ROSUVASTATIN 5 MG (CRESTOR) TABLET PO SCH (22:33)
[2017-04-22] MEDS: D5 NS 1000 ML IV SOLUTION 1,000 ML IV SCH (22:34)
[2017-04-23] VITALS (16 sets, daily range): BP systolic 97–169; BP diastolic 41–96
[2017-04-23] MEDS: POTASSIUM CL 10 MEQ/50 ML IVPB (PRE-MIX) IV SCH ×4 (01:07→03:28)
[2017-04-23 01:40] LABS: CREATININE SERUM 2.06 MG/DL (0.60-1.30); MAGNESIUM 2.4 MG/DL (1.8-2.4); PHOSPHORUS 4.7 MG/DL (2.3-4.7); POTASSIUM 3.8 MMOL/L (3.6-5.0)
[2017-04-23] MEDS: inSUlin ASPART (NovoLOG) 1 UNIT/0.01 ML (CHARGE PER UNIT) SC SCH ×9 (03:36→20:13)
[2017-04-23] MEDS: RT-ALBUTEROL/IPRATROPIUM 3 ML (DUONEB) VIAL INH SCH ×2 (03:39→06:39)
[2017-04-23 04:10] LABS: BASOPHILS % (AUTO) 0 % (0-10); EOSINOPHILS # (AUTO) 0.1 10^3/uL (0.0-0.3); EOSINOPHILS % (AUTO) 0 % (0-10); LYMPHOCYTES # (AUTO) 1.1 X 10^3 (1.0-4.0); LYMPHOCYTES % (AUTO) 5 % (12-44); MEAN CORPUSCULAR HEMOGLOBIN 28 PG (25-34); MEAN CORPUSCULAR HGB CONC 33 G/DL (32-36); MEAN CORPUSCULAR VOLUME 84 FL (80-99); MEAN PLATELET VOLUME 10.6 FL (7.4-10.4); MONOCYTES # (AUTO) 1.3 X 10^3 (0.0-1.0); MONOCYTES % (AUTO) 5 % (0-12); NEUTROPHILS # (AUTO) 21.3 X 10^3 (1.8-7.8); NEUTROPHILS % (AUTO) 90 % (42-75); PLATELET COUNT 237 10^3/uL (130-400); RED BLOOD COUNT 3.86 10^6/uL (4.35-5.85); RED CELL DISTRIBUTION WIDTH 17.3 % (10.0-14.5); WHITE BLOOD COUNT 23.7 10^3/uL (4.3-11.0)
[2017-04-23 04:25] LABS: BAND NEUTROPHILS 5 %; LYMPHOCYTES % (MANUAL) 1 %; NEUTROPHILS % (MANUAL) 88 %
[2017-04-23 04:27] LABS: CALCIUM 8.8 MG/DL (8.5-10.1); CREATININE SERUM 1.96 MG/DL (0.60-1.30); MAGNESIUM 2.4 MG/DL (1.8-2.4); POTASSIUM 3.6 MMOL/L (3.6-5.0)
[2017-04-23] MEDS ORDERED: NORMAL SALINE 250 ML ONE (04:59)
[2017-04-23] MEDS: PANTOPRAZOLE 40 MG (PROTONIX) TAB PO SCH (05:17)
[2017-04-23] MEDS: LEVOTHYROXINE 25 MCG (LEVOTHROID) TAB PO SCH (05:17)
[2017-04-23] MEDS: KCL 20 MEQ TAB (K-DUR) PO SCH ×2 (05:17→18:18)
[2017-04-23] MEDS: INSULIN DRIP 250 UNITS/NS 250 ML IV SCH ×2 (05:45)
[2017-04-23] MEDS: RT-ADVAIR HFA 115/21 MCG PER PUFF IH SCH ×2 (06:41→18:14)
[2017-04-23] MEDS: UMECLIDINIUM BROMIDE (INCRUSE ELLIPTA) 7'S IH SCH (06:41)
[2017-04-23] MEDS: D5 NS 1000 ML IV SOLUTION 1,000 ML IV SCH (07:51)
[2017-04-23] MEDS ORDERED: inSUlin DETERMIR 1 UNIT/0.01 ML (LEVEMIR) CHARGE PER UNIT SQ NR (09:00)
[2017-04-23] MEDS: DILTIAZEM 240 MG (CARDIZEM CD) CAP PO SCH (09:03)
[2017-04-23] MEDS: APIXABAN 5 MG (ELIQUIS) TABLET PO SCH ×2 (09:03→20:03)
[2017-04-23] MEDS: meTOproloL SUCCINATE 50 MG (TOPROL XL) TAB PO SCH (09:03)
[2017-04-23] MEDS: CLOPIDOGREL 75 MG (PLAVIX) TABLET PO SCH (09:03)
[2017-04-23] MEDS ORDERED: RT-ALBUTEROL SULF 2.5 MG/3 ML PRE-MIX VIAL IH PRN (09:15)
--- NOTE | 2017-04-23 09:20 | Pulmonary Consultation ---
History of Present Illness History of Present Illness Date of Consultation 04/23/17 09:04 Time Seen by Provider: 09:04 Date of Admission History of Present Illness 66yo with hx of JOSE MANUEL, CAD, asthma, CHF, Afib, and DM II presented to ED secondary to worsening SOB over the last 10 days. Pt was placed on insulin gtt secondary to hyperglycemia. Pt is wheel chair bound. He has had pedal edema. He does have 3 liters of oxygen with his home CPAP set up at home however he does not use it continuously. He also complains of asthma over the last week. I am consulted for pulmonary/CC management. Allergies and Home Medications Allergies Coded Allergies: Zebjzuy-Njp-Tzx Reductase Inhibitor (Verified Allergy, Unknown, 11/27/15) codeine (Verified Allergy, Unknown, 11/27/15) fish oil (Verified Allergy, Unknown, 11/27/15) Home Medications Albuterol Sulfate 2.5 Mg/3 Ml Vial.neb, 2.5 MG NEB QID, (Reported) Albuterol Sulfate 18 Gm Hfa.aer.ad, 1 PUFF IH Q4H PRN for SHORTNESS OF BREATH, ( Reported) Apixaban 5 Mg Tablet, 5 MG PO BID, (Reported) Cetirizine HCl/Pseudoephedrine 1 Each Tab.er.12h, 1 TAB PO DAILY, (Reported) Clopidogrel Bisulfate 75 Mg Tablet, 75 MG PO DAILY, (Reported) Diltiazem HCl 240 Mg Cap.er.deg, 240 MG PO DAILY, (Reported) Fluticasone/Salmeterol 1 Each Blst.w.dev, 1 PUFF IH BID, (Reported) Furosemide 40 Mg Tablet, 40 MG PO DAILY, (Reported) Hydrocodone/Acetaminophen 1 Each Tablet, 1 TAB PO Q6H PRN for PAIN-MODERATE, ( Reported) Insulin Glargine,Hum.rec.anlog 100 Unit/1 Ml Insuln.pen, 20 UNITS SQ HS, ( Reported) Insulin Lispro 100 Unit/1 Ml Insuln.pen, 20 UNITS SQ QID, (Reported) Levothyroxine Sodium 25 Mcg Tablet, 25 MCG PO DAILY, (Reported) Meloxicam 15 Mg Tablet, 15 MG PO DAILY, (Reported) Metolazone 5 Mg Tablet, 5 MG PO DAILY, (Reported) Metoprolol Succinate 50 Mg Tab.er.24h, 50 MG PO DAILY, (Reported) Montelukast Sodium 10 Mg Tablet, 10 MG PO HS, (Reported) Ondansetron 8 Mg Tab.rapdis, 8 MG PO Q4H PRN for NAUSEA/VOMITING-1ST LINE, ( Reported) Potassium Chloride 10 Meq Tablet.er, 10 MEQ PO BID, (Reported) Rosuvastatin Calcium 5 Mg Tablet, 5 MG PO DAILY, (Reported) Spironolactone 25 Mg Tablet, 25 MG PO DAILY, (Reported) Sulfamethoxazole/Trimethoprim 1 Each Tablet, 0.5 MG PO HS, (Reported) Tamsulosin HCl 0.4 Mg Cap.er.24h, 0.4 MG PO DAILY, (Reported) Tiotropium Everetts 4 Gm Mist.inhal, 1 PUFF IH DAILY, (Reported) Past Kmdalsf-Lkyygx-Ypznzc Hx Patient Social History Alcohol Use: Occasionally Uses Number of Drinks Today: 1 Alcohol Beverage of Choice: Whiskey Recreational Drug Use: No Smoking Status: Former Smoker Type Used: Cigarettes Former Smoker, Quit: Aug 13, 1996 Recent Foreign Travel: No Contact w/Someone Who Travel: No Recent Infectious Disease Expo: No Recent Hopitalizations: No Physical Abuse: No Sexual Abuse: No Immunizations Up To Date Tetanus Booster (TDap): Less than 5yrs PED Vaccines UTD: Yes Date of Pneumonia Vaccine: Jan 11, 2017 Date of Influenza Vaccine: May 13, 2016 Seasonal Allergies Seasonal Allergies: Yes Surgeries History of Surgeries: Yes Surgeries: Adenoidectomy, Cardiac, CABG, Coronary Stent, Tonsillectomy, Transurethral Resection, Vasectomy Respiratory History of Respiratory Disorde: Yes Respiratory Disorders: Asthma, Sleep Apnea, COPD Currently Using CPAP: Yes Cardiovascular History of Cardiac Disorders: Yes Cardiac Disorders: Chronic Edema/Swelling, Coronary Artery Disease, Heart Attack, High Cholesterol, Hypertension Neurological History of Neurological Disord: No Neurological Disorders: Neuropathy Reproductive System Hx Reproductive Disorders: No Genitourinary History of Genitourinary Disor: Yes Genitourinary Disorders: Bladder Infection, UTI-Chronic Gastrointestinal History of Gastrointestinal Di: Yes Gastrointestinal Disorders: Chronic Constipation Musculoskeletal History of Musculoskeletal Dis: Yes Musculoskeletal Disorders: Arthritis, Chronic Back Pain Endocrine History of Endocrine Disorders: Yes Endocrine Disorders: Diabetes, Insulin dep, Hypothyroidsim Are Your Blood Sugars Over 250: No HEENT History of HEENT Disorders: No Cancer History of Cancer: No Psychosocial History of Psychiatric Problem: No Behavioral Health Disorders: Sleep Difficulties, Anxiety Suicide Risk Score: 0 Integumentary History of Skin or Integumenta: No Skin/Integumentary Disorders: Pruritis Blood Transfusions History of Blood Disorders: No Adverse Reaction to a Blood Tr: No Family Medical History Significant Family History: Asthma, Heart Disease, Hypertension Family Medial History: Cancer 03 FATHER Congestive heart failure 03 MOTHER Family history: Arthritis 03 MOTHER Family history: Asthma 03 MOTHER Family history: Cardiovascular disease 03 MOTHER Family history: Diabetes mellitus 09 BROTHER Family history: Gastrointestinal disease 03 FATHER History of drug abuse 09 BROTHER Review of Systems Time Seen by Provider: 09:31 Exam Exam Vital Signs Date Time Temp Pulse Resp B/P (MAP) Pulse Ox O2 Delivery O2 Flow Rate FiO2 04/23/17 08:00 70 111/82 95 Nasal Cannula 3.00 04/23/17 07:00 77 26 114/56 94 Nasal Cannula 3.00 04/23/17 07:00 77 04/23/17 06:39 95 Nasal Cannula 4.50 04/23/17 06:00 74 26 129/87 92 Nasal Cannula 3.00 04/23/17 05:00 58 21 121/69 95 Nasal Cannula 3.00 04/23/17 04:00 98.8 04/23/17 04:00 70 34 113/54 90 Nasal Cannula 3.00 04/23/17 03:00 58 23 114/49 93 Nasal Cannula 3.00 04/23/17 02:00 68 39 123/61 91 Nasal Cannula 3.00 04/23/17 01:00 63 17 113/83 94 Nasal Cannula 3.00 04/23/17 01:00 68 04/23/17 00:00 61 13 93 Nasal Cannula 3.00 04/22/17 23:00 62 21 114/73 96 Nasal Cannula 3.00 04/22/17 22:26 96 NIV CPAP 3.00 04/22/17 22:00 61 30 100/55 96 Nasal Cannula 3.00 04/22/17 21:00 65 28 112/59 97 Nasal Cannula 3.00 04/22/17 21:00 Nasal Cannula 2.00 04/22/17 20:00 61 20 136/89 95 Nasal Cannula 3.00 04/22/17 19:45 97.3 66 24 142/73 96 Nasal Cannula 3.00 04/22/17 19:00 92 3.00 04/22/17 19:00 72 33 151/98 95 Room Air 04/22/17 19:00 73 04/22/17 18:44 Room Air 04/22/17 18:00 61 32 94 Room Air 04/22/17 17:00 60 17 96 Room Air 04/22/17 16:00 71 95 Room Air 04/22/17 14:57 97 2.00 04/22/17 13:00 73 04/22/17 12:00 98.0 78 24 130/78 96 Nasal Cannula 2.00 04/22/17 10:20 92 2.00 I & O 04/24/17 07:00 Intake Total 1000 ml Balance 1000 ml General Appearance: No Apparent Distress, WD/WN HEENT: PERRL/EOMI, No Scleral Icterus (L), No Scleral Icterus (R) Neck: Non Tender, Supple, JVD Respiratory: Decreased Breath Sounds (bilateral bases, no crackles/wheezes) Cardiovascular: Regular Rate, Rhythm, No Murmur Capillary Refill: Less Than 3 Seconds Gastrointestinal: non tender, soft Extremity: No Calf Tenderness, Swelling (3-4+ pitting edema bilaterally to knees) Neurologic/Psychiatric: Alert, Oriented x3 Skin: Normal Color, Warm/Dry, Other (venous stasis dermatitis noted bilaterally ) Results Lab Laboratory Tests 04/21/17 14:25 04/22/17 04:05 04/22/17 04:08 04/22/17 12:14 04/22/17 20:32 04/23/17 01:13 04/23/17 03:35 Assessment/Plan Assessment/Plan COPD/asthma -oxygen, SVNS -Check CT of chest Leukocytosis probably secondary to steroids -Steroids have been D/Cd CHF -Lasix, monitor JOSE MANUEL -Pt is compliant with CPAP and uses 3 liters of oxygen with it. CKD -monitor IDDM Restart home insulin -D/C insulin gtt Chronic Afib - controlled 255 Diagnosis/Problems Problems/Diagonsis (1) Congestive heart failure with preserved LV function, NYHA class 3 Status: Acute Assessment & Plan: Acutely decompensated heart failure CXR consistent with vascular congestion Review of old echos shows essentially preserved EF Continue to diurese with IV lasix Monitor I/Os Low Na Diet Fluid Restrict 1.5L (2) IDDM (insulin dependent diabetes mellitus) Status: Chronic Assessment & Plan: Blood sugars very elevated overnight, DC steroids Concerning for DKA (new acidosis on BMP this AM) but given fluid overloaded and already apparent respiratory compromise will hold IVF for now Started on insulin gtt A1c ordered Repeat BMP ordered for now (3) Chronic kidney disease Status: Chronic Assessment & Plan: Near baseline (baseline ~1.8), but up from yesterday If further elevation tomorrow will need to adjust lasix dosing (4) COPD (chronic obstructive pulmonary disease) Status: Chronic Assessment & Plan: Wheezing on exam as well but rest of exam less consistent with COPD exacerbation MAT Protocol and Duonebs Will hold further steroids (5) Essential (primary) hypertension Status: Chronic Assessment & Plan: Well controlled, continue home medications (6) Hypothyroidism Status: Chronic Assessment & Plan: Continue home Synthroid Qualifiers: Qualified Codes: E03.9 - Hypothyroidism, unspecified (7) JOSE MANUEL (obstructive sleep apnea) Status: Chronic Assessment & Plan: Wears CPAP, reports will bring in home CPAP to wear tonight (8) Obesity hypoventilation syndrome Status: Chronic (9) CAD (coronary artery disease) Status: Chronic Assessment & Plan: At baseline, continue on Plavix Has allergy to Statin Qualifiers: Qualified Codes: I25.810 - Atherosclerosis of coronary artery bypass graft(s ) without angina pectoris (10) Chronic atrial fibrillation Status: Chronic Assessment & Plan: Rate well controlled Continue Eliquis (11) Prophylactic measure Assessment & Plan: Eliquis for a-fib, no further DVT ppx Low Sodium Diet Saline Lock Clinical Quality Measures DVT/VTE Risk/Contraindication: Risk Factor Score Per Nursin RFS Level Per Nursing on Admit: 4+=Very High RAIMUNDO MATTHEWS DO Apr 23, 2017 09:20
--- NOTE | 2017-04-23 09:33 | Diagnostic Imaging Report ---
EXAMINATION: Portable upright radiograph of the chest. INDICATION: COPD. COMPARISON: 04/22/2017. FINDINGS: There is cardiomegaly with persistent pulmonary vascular congestion. The mediastinum and claribel appear unremarkable. There are low lung volumes. No effusion or pneumothorax. Fractured sternotomy wires are again seen. IMPRESSION: Cardiomegaly with pulmonary vascular congestion. No significant change. Dictated by: Dictated on workstation # [id number]
[2017-04-23 09:39] LABS: CALCIUM 9.2 MG/DL (8.5-10.1); CREATININE SERUM 1.84 MG/DL (0.60-1.30); MAGNESIUM 2.4 MG/DL (1.8-2.4); PHOSPHORUS 3.9 MG/DL (2.3-4.7); POTASSIUM 3.7 MMOL/L (3.6-5.0)
[2017-04-23] MEDS: RT-ALBUTEROL SULF 2.5 MG/3 ML PRE-MIX VIAL IH SCH ×4 (09:51→21:53)
--- NOTE | 2017-04-23 09:58 | Progress Note-Hospitalist ---
Progress Note HPI/CC on Admission chief complaint: Shortness of breath History of present illness:Patient is a 66-year-old male with a past medical history of coronary disease status post CABG and stenting hypertension chronic A. fib obstructive sleep apnea and some lipid and diabetes type II chronic kidney disease and congestive heart failure who presented to the emergency department with chief complaint of shortness of breath for the past one week to 10 days. He reports it's been getting worse over the past few days , He denies any fever or sputum production but he does have a dry cough. He has dyspnea on exertion that he is mostly wheelchair-bound and is hard for him to even transfer. He does not wear oxygen at home he had previously worn it for 10 years but for the past year he has had no longer worn it. He is noticed increased swelling in his legs and orthopnea. He does endorse a history of asthma but denies any wheezing or increased inhaler use. Progress Notes/Assess & Plan Date Seen 04/23/17 Time Seen by Provider: 10:30 Diagonsis/Assessment & Plan Patient feeling better today Less SOB Sugars are improved Checked meds and labs No pain is reported Wants catheter out AFVSS, Pleasant, O x 3, sitting in chair, improved irr Irr, CTAB diminished in bases Noted edema Assessment: (1) Congestive heart failure with preserved LV function, NYHA class 3 Status: Acute Assessment & Plan: Acutely decompensated heart failure CXR consistent with vascular congestion Review of old echos shows essentially preserved EF Continue to diurese with IV lasix Monitor I/Os Low Na Diet Fluid Restrict 1.5L (2) IDDM (insulin dependent diabetes mellitus) Status: Chronic Assessment & Plan: Blood sugars very elevated overnight, DC steroids Concerning for DKA (new acidosis on BMP this AM) but given fluid overloaded and already apparent respiratory compromise will hold IVF for now Started on insulin gtt yesterday now transitioning to SQ home dosing A1c ordered (3) Chronic kidney disease Status: Chronic Assessment & Plan: Near baseline (baseline ~1.8), but up from yesterday If further elevation will need to adjust lasix dosing (4) COPD (chronic obstructive pulmonary disease) Status: Chronic Assessment & Plan: Wheezing on exam as well but rest of exam less consistent with COPD exacerbation MAT Protocol and Duonebs Will hold further steroids (5) Essential (primary) hypertension Status: Chronic Assessment & Plan: Well controlled, continue home medications (6) Hypothyroidism Status: Chronic Assessment & Plan: Continue home Synthroid Qualifiers: Qualified Codes: E03.9 - Hypothyroidism, unspecified (7) JOSE MANUEL (obstructive sleep apnea) Status: Chronic Assessment & Plan: Wears CPAP, reports will bring in home CPAP to wear tonight (8) Obesity hypoventilation syndrome Status: Chronic (9) CAD (coronary artery disease) Status: Chronic Assessment & Plan: At baseline, continue on Plavix Has allergy to Statin Qualifiers: Qualified Codes: I25.810 - Atherosclerosis of coronary artery bypass graft(s ) without angina pectoris (10) Chronic atrial fibrillation Status: Chronic Assessment & Plan: Rate well controlled Continue Eliquis (11) Prophylactic measure Assessment & Plan: Eliquis for a-fib, no further DVT ppx Low Sodium Diet Saline Lock Plan: DC catheter Appreciate Pulmonary and Cardiology management CHAO PAT DO Apr 23, 2017 09:58
--- NOTE | 2017-04-23 10:10 | Consultation-Cardiology ---
HPI-Cardiology Cardiology Consultation: Date of Consultation 04/23/17 Time Seen by Provider: 10:10 Date of Admission 04-21-17 Attending Physician America Hutton DO Admitting Physician Jennifer Schwarz DO Consulting Physician Kayla Bishop MD HPI: Chief Complaint: Dyspnea Mr. Garcia is a 66 year old male admitted to ICU 6. He reports for approx the last 10 days prior to admission he has been having increasing shortness of breath and swelling. He reports frequent non-productive cough. He reports chills in the evening. He currently is sitting up in a chair at the bedside. He states he is feeling much better. He reports the LE edema is much better. No c/o CP, palpitations, syncope or near syncope. Review of Systems-Cardiology Review of Systems Constitutional: As described under HPI, No As described under HPI, chills, No fever, No lightheadedness Eyes: No blindness, No blurred vision, No contact lenses, No drainage, No decreased acuity, No foreign body sensation, No pain, No vision change Ears/Nose/Throat: No chronic hearing loss, No ear discharge, No ear pain, nasal drainage, No ulcerations Respiratory: As described under HPI Cardiovascular: As described under HPI Gastrointestinal: No abdomen distended, No abdominal pain, No blood streaked bowels, No constipation, No diarrhea, No nausea, No vomiting, No stool coloration changes Genitourinary: No burning, No dysuria, No discharge, No frequency, No flank pain, No hematuria, No urgency Musculoskeletal: joint pain (chronic) Skin: No rash, No skin related problems, No ulcerations Psychiatric/Neurological: No anxiety, No depression, No seizure, No focal weakness, No syncope Hematologic: No bleeding abnormalities UQI-Uqwzxb-Vqgpmc Hx Patient Social History Marrital Status: Alcohol Use: Occasionally Uses Recreational Drug Use: No Smoking Status: Former Smoker Former smoker/When Quit: Aug 13, 2006 Type Used: Cigarettes Recent Foreign Travel: No Recent Infectious Disease Expo: No Hospitalization with Isolation: Denies Physical Abuse Screen: No Sexual Abuse: No Immunizations Up To Date Tetanus Booster (TDap): Less than 5yrs Date of Pneumonia Vaccine: Jan 11, 2017 Date of Influenza Vaccine: May 13, 2016 Past Medical History PMH As described under Assessment. Family Medical History Family Medical History: Reports mother had CAD and CHF. No reported h/o premature CAD or SCD. Family History: Cancer 03 FATHER Congestive heart failure 03 MOTHER Family history: Arthritis 03 MOTHER Family history: Asthma 03 MOTHER Family history: Cardiovascular disease 03 MOTHER Family history: Diabetes mellitus 09 BROTHER Family history: Gastrointestinal disease 03 FATHER History of drug abuse 09 BROTHER Allergies and Home Medications Allergies Coded Allergies: Ssqfmwz-Xpt-Yxj Reductase Inhibitor (Verified Allergy, Unknown, 11/27/15) codeine (Verified Allergy, Unknown, 11/27/15) fish oil (Verified Allergy, Unknown, 11/27/15) Home Medications Albuterol Sulfate 2.5 Mg/3 Ml Vial.neb, 2.5 MG NEB QID, (Reported) Albuterol Sulfate 18 Gm Hfa.aer.ad, 1 PUFF IH Q4H PRN for SHORTNESS OF BREATH, ( Reported) Apixaban 5 Mg Tablet, 5 MG PO BID, (Reported) Cetirizine HCl/Pseudoephedrine 1 Each Tab.er.12h, 1 TAB PO DAILY, (Reported) Clopidogrel Bisulfate 75 Mg Tablet, 75 MG PO DAILY, (Reported) Diltiazem HCl 240 Mg Cap.er.deg, 240 MG PO DAILY, (Reported) Fluticasone/Salmeterol 1 Each Blst.w.dev, 1 PUFF IH BID, (Reported) Furosemide 40 Mg Tablet, 40 MG PO DAILY, (Reported) Hydrocodone/Acetaminophen 1 Each Tablet, 1 TAB PO Q6H PRN for PAIN-MODERATE, ( Reported) Insulin Glargine,Hum.rec.anlog 100 Unit/1 Ml Insuln.pen, 20 UNITS SQ HS, ( Reported) Insulin Lispro 100 Unit/1 Ml Insuln.pen, 20 UNITS SQ QID, (Reported) Levothyroxine Sodium 25 Mcg Tablet, 25 MCG PO DAILY, (Reported) Meloxicam 15 Mg Tablet, 15 MG PO DAILY, (Reported) Metolazone 5 Mg Tablet, 5 MG PO DAILY, (Reported) Metoprolol Succinate 50 Mg Tab.er.24h, 50 MG PO DAILY, (Reported) Montelukast Sodium 10 Mg Tablet, 10 MG PO HS, (Reported) Ondansetron 8 Mg Tab.rapdis, 8 MG PO Q4H PRN for NAUSEA/VOMITING-1ST LINE, ( Reported) Potassium Chloride 10 Meq Tablet.er, 10 MEQ PO BID, (Reported) Rosuvastatin Calcium 5 Mg Tablet, 5 MG PO DAILY, (Reported) Spironolactone 25 Mg Tablet, 25 MG PO DAILY, (Reported) Sulfamethoxazole/Trimethoprim 1 Each Tablet, 0.5 MG PO HS, (Reported) Tamsulosin HCl 0.4 Mg Cap.er.24h, 0.4 MG PO DAILY, (Reported) Tiotropium [place] 4 Gm Mist.inhal, 1 PUFF IH DAILY, (Reported) Physical Exam-Cardiology Physical Exam Vital Signs/I&O Vital Sign - Last 12Hours 04/23/17 04/23/17 04/23/17 04/23/17 06:00 06:39 07:00 07:00 Pulse 74 77 77 Resp 26 26 B/P (MAP) 129/87 114/56 Pulse Ox 92 95 94 O2 Delivery Nasal Cannula Nasal Cannula Nasal Cannula O2 Flow Rate 3.00 4.50 3.00 04/23/17 04/23/17 04/23/17 04/23/17 08:00 08:00 09:00 09:00 Temp 97.7 Pulse 70 77 B/P (MAP) 111/82 126/ Pulse Ox 95 94 O2 Delivery Nasal Cannula Nasal Cannula Nasal Cannula Nasal Cannula O2 Flow Rate 2.00 3.00 2.00 2.00 04/23/17 04/23/17 04/23/17 04/23/17 09:51 10:00 11:00 12:00 Pulse 77 68 65 Resp 24 21 25 B/P (MAP) 117/ 128/73 109/41 Pulse Ox 96 95 94 94 O2 Delivery Nasal Cannula Nasal Cannula Nasal Cannula Nasal Cannula O2 Flow Rate 2.00 2.00 2.00 2.00 04/23/17 04/23/17 04/23/17 04/23/17 12:00 13:00 13:00 13:00 Temp 97.4 Pulse 62 61 Resp 14 B/P (MAP) Pulse Ox 93 O2 Delivery Nasal Cannula Nasal Cannula Nasal Cannula O2 Flow Rate 2.00 2.00 2.00 04/23/17 04/23/17 04/23/17 04/23/17 14:00 14:11 15:00 16:00 Pulse 61 56 56 Resp 18 32 15 B/P (MAP) 97/81 127/84 Pulse Ox 95 95 92 95 O2 Delivery Nasal Cannula Nasal Cannula Nasal Cannula Nasal Cannula O2 Flow Rate 2.00 2.00 1.00 1.00 04/23/17 04/23/17 16:13 16:16 Temp 97.4 O2 Delivery Nasal Cannula Nasal Cannula O2 Flow Rate 2.00 1.00 Intake and Output 04/24/17 00:00 Intake Total 480 ml Output Total 600 ml Balance -120 ml Capillary Refill : Less Than 3 Seconds Constitutional: appears stated age, No apparent distress, well-developed, well- nourished HEENT: PERRL, No discharge, hearing is well preserved, oral hygience is good, No ulceration, No xanthelasmas are seen Neck: No carotid bruit, carotid pulses are 2 + bilaterally Respiratory: lungs clear to auscultation, other (prolonged expiratory phase) Gastrointestinal: No tender, soft, No spleenomegaly Extremities: No clubbing, No cyanosis, significant edema (mod bilat pedal edema ) Neurologic/Psychiatric: alert, oriented x 3, power is 5/5 both on sides Skin: No rash, No ulcerations Data Review Labs Laboratory Tests 04/22/17 18:12: Glucometer 246H 04/22/17 19:20: Glucometer 240H 04/22/17 20:32: Sodium Level 134L, Potassium Level 3.2L, Chloride Level 97L, Carbon Dioxide Level 21, Anion Gap 16H, Blood Urea Nitrogen 47H, Creatinine 2.23H, Estimat Glomerular Filtration Rate 30, BUN/Creatinine Ratio 21, Glucose Level 176H, Lactic Acid Level 2.74*H, Calcium Level 9.6, Phosphorus Level 4.0, Magnesium Level 2.1 04/22/17 20:35: Glucometer 163H 04/22/17 21:40: Glucometer 164H 04/22/17 22:31: Glucometer 154H 04/22/17 22:55: Lactic Acid Level 2.83*H 04/22/17 23:33: Glucometer 243H 04/23/17 00:41: Glucometer 312H 04/23/17 01:13: Sodium Level 132L, Potassium Level 3.8, Chloride Level 96L, Carbon Dioxide Level 20L, Anion Gap 16H, Blood Urea Nitrogen 50H, Creatinine 2.06H, Estimat Glomerular Filtration Rate 32, BUN/Creatinine Ratio 24, Glucose Level 327H, Lactic Acid Level 2.23*H, Calcium Level 9.0, Phosphorus Level 4.7, Magnesium Level 2.4 04/23/17 01:36: Glucometer 330H 04/23/17 02:34: Glucometer 330H 04/23/17 03:35: White Blood Count 23.7H, Red Blood Count 3.86L, Hemoglobin 10.6L, Hematocrit 32L , Mean Corpuscular Volume 84, Mean Corpuscular Hemoglobin 28, Mean Corpuscular Hemoglobin Concent 33, Red Cell Distribution Width 17.3H, Platelet Count 237, Mean Platelet Volume 10.6H, Neutrophils (%) (Auto) 90H, Lymphocytes (%) (Auto) 5L, Monocytes (%) (Auto) 5, Eosinophils (%) (Auto) 0, Basophils (%) (Auto) 0, Neutrophils # (Auto) 21.3H, Lymphocytes # (Auto) 1.1, Monocytes # (Auto) 1.3H, Eosinophils # (Auto) 0.1, Basophils # (Auto) 0.0, Neutrophils % (Manual) 88, Lymphocytes % (Manual) 1, Monocytes % (Manual) 6, Band Neutrophils 5, Blood Morphology Comment NORMAL, Sodium Level 133L, Potassium Level 3.6, Chloride Level 98, Carbon Dioxide Level 21, Anion Gap 14, Blood Urea Nitrogen 50H, Creatinine 1.96H, Estimat Glomerular Filtration Rate 34, BUN/Creatinine Ratio 26 , Glucose Level 327H, Lactic Acid Level 1.81, Calcium Level 8.8, Phosphorus Level 4.0, Magnesium Level 2.4 04/23/17 03:40: Glucometer 324H 04/23/17 04:31: Glucometer 297H 04/23/17 05:38: Glucometer 256H 04/23/17 06:44: Glucometer 247H 04/23/17 07:50: Glucometer 249H 04/23/17 09:09: Sodium Level 136, Potassium Level 3.7, Chloride Level 101, Carbon Dioxide Level 23, Anion Gap 12, Blood Urea Nitrogen 53H, Creatinine 1.84H, Estimat Glomerular Filtration Rate 37, BUN/Creatinine Ratio 29, Glucose Level 125H, Calcium Level 9.2, Phosphorus Level 3.9, Magnesium Level 2.4 04/23/17 09:45: B-Type Natriuretic Peptide 246.7H 04/23/17 11:05: Glucometer 211H Radiology NAME: JENNIFER GARCIA REC#: [id number] PT STATUS: ADM IN : 1950 PHYSICIAN: RAIMUNDO MATTHEWS DO ADMIT DATE: 04/21/17/ICU Draft Date of Exam:04/23/17 CHEST 1 VIEW, AP/PA ONLY EXAMINATION: Portable upright radiograph of the chest. INDICATION: COPD. COMPARISON: 04/22/2017. FINDINGS: There is cardiomegaly with persistent pulmonary vascular congestion. The mediastinum and claribel appear unremarkable. There are low lung volumes. No effusion or pneumothorax. Fractured sternotomy wires are again seen. IMPRESSION: Cardiomegaly with pulmonary vascular congestion. No significant change. Dictated on workstation # [id number] Dict: 04/23/1725 Trans: 04/23/1733 [id number] Interpreted by: KATLEYNN WADDELL MD Electronically signed by: A/P-Cardiology Assessment/Admission Diagnosis Multifactorial shortness of breath (see below) Acute on chronic exacerbation of COPD Acute on chronic diastolic CHF. Echo of 04/23/17: mod cardiomegaly, LVEF 50-55%, mild MR, PASP 35 mmHg Obesity-hypoventilation syndrome Persistent a-fib first diagnosed in early February 2016, rate controlled DKA - management per medical services OAC with Eliquis Sepsis with fever and recurrent right lower extremity cellulitis with history of ulcerations of the right foot in January 2016 CAD with a h/o CABG in 2006 at [facility] in [place], [place]. On cardiac cath of 11-11-15: Multivessel coronary disease including multiple more than 90% stenosis of the proximal and mid left anterior descending artery. The mid to distal left anterior descending artery is protected with a widely patent left internal mammary artery graft. The left circumflex artery had 99% ostial/ proximal stenosis to which successful stenting was carried out with Promus Premier 3.5 x 20 mm stent with a reduction of stenosis to 0% residual. The distal left circumflex and its obtuse marginal branches have diffuse moderate to moderately severe disease which were not intervened on. The right coronary artery is dominant and had 90% proximal stenosis to which successful stenting was carried out with Promus Premier 2.75 x 28 mm stent with reduction of stenosis to 0% residual. The distal right coronary artery has multiple stenoses of 50 to 60%, which were not intervened on. Cardiac cath of 11-11-15 showed well preserved global left ventricular systolic function and ejection fraction of 55 to 60%. Elevated left ventricular end- diastolic pressure which was measured at approximately 20 mmHg. No significant mitral regurgitation. ABIs on 01/13/16 at [place], [place]: 1.1 on both sides Echocardiogram of July 2016: LVEF 55-60%. Mild TR. PASP approx 30mmHg. No evidence of valvular stenosis Hypertension Quit smoking in early Obesity with BMI approx 50 DM II Diabetic R foot ulcer, being managed by Dr Estrella Acute on Chronic renal insufficiency - chronic likely due in some part to diabetic nephropathy Sleep apnea syndrome - CPAP therapy - managed by Dr. Paris Minimal carotid dz on u/s of November 2015 Discussion and Recomendations Dyspnea likely multifactorial. Acute on chronic exacerbation of COPD which is being managed by medical services. Acute on chronic diastolic CHF for which he has received IV diuretics. We will continue home diuretic regimen. Chronic a- fib with a controlled rate. We will continue CCB and BB. We will also continue OAC with Eliquis for stroke prophylaxis. We will continue Plavix d/t known CAD. Monitor lab closely. DKA being managed by medical services. We would like to thank medical services for this consult. Further recommendations will be based on his hospital course. This consult is being scribed by Simon Gabriel APRN on behalf of Dr. Bishop after discussion regarding plan of care. Clinical Quality Measures DVT/VTE Risk/Contraindication: Risk Factor Score Per Nursin RFS Level Per Nursing on Admit: 4+=Very High Physician Assessment Physician Assessment Lungs: fair to good air entry Cor: irreg, soft FELECIA at card base Ext: mod edema A&R * As documented in our note above that I updated (italics) and as noted below * We discussed echo results * We discussed pathophys of his shortness of breath and our treatment plan * Monitor labs BENJAMIN GABRIEL STAMPING BENCH DIE MAKER Apr 23, 2017 10:10 KAYLA BISHOP MD FACP [facility] Apr 23, 2017 17:51
--- NOTE | 2017-04-23 11:19 | Diagnostic Imaging Report ---
PROCEDURE: CT chest without contrast. TECHNIQUE: Multiple contiguous axial images were obtained through the chest without the use of intravenous contrast. INDICATION: Shortness of breath. FINDINGS: There are nonspecific mild groundglass opacities in the lower lobes which may relate to atelectasis. There is no significant consolidation, mass, or suspicious pulmonary nodule otherwise. There is mild respiratory motion artifact affecting particularly the mid and lower lung zones. The heart size is mildly enlarged. There are prominent coronary artery calcifications seen. There are no significant pleural or pericardial effusions. The thoracic aorta is normal in caliber. 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 There is distraction between the two sides of the sternum with an average gap width of about 7 mm at the sternotomy site. At the inferior aspect of the sternotomy, there is dense material, probably related to cement. A nonspecific mildly enlarged 1.4 cm aortopulmonary lymph node and prevascular lymph nodes of about 1 cm in size are seen. Also, there is a right paratracheal lymph node measuring 1.6 cm also noted. These are slightly more prominent compared to 03/21/2016. The etiology is indeterminate. In the upper abdomen, there is thickening of the gallbladder wall and stranding around the gallbladder. This is not entirely included on this exam. No obvious calcified stone is noted. The osseous structures demonstrate multiple old rib fractures on the right side, some demonstrating nonunion, without significant displacement. There is also multilevel significant likely degenerative changes at the mid and lower thoracic spine levels, similar to 03/21/2016. IMPRESSION: 1. Gallbladder wall thickening and stranding around it is seen, concerning for cholecystitis. No obvious calcified stone. Correlate clinically and with a gallbladder ultrasound as needed. 2. Minimal groundglass opacities in the lower lobes are nonspecific, possibly related to mild atelectasis. 3. 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 The sternotomy wires are fractured. 4. The findings in the gallbladder were discussed with Dr. Whitney at the time of dictation. Dictated by: Dictated on workstation # [id number]
[2017-04-23] MEDS: NS IV 1000 ML 1,000 ML IV SCH ×3 (11:25→20:03)
--- NOTE | 2017-04-23 12:42 | Diagnostic Imaging Report ---
PROCEDURE: US Abdomen, limited. TECHNIQUE: Multiple realtime grayscale images were obtained over the abdomen in various projections. INDICATION: Gallbladder wall thickening seen on CT scan. FINDINGS: The pancreas is obscured by bowel gas. The liver is fairly homogeneous with no focal lesion. Its echogenicity is increased with mild enlargement of the liver measuring 20 cm craniocaudally. The gallbladder demonstrates prominent wall thickening measuring 1.1 cm without stones or pericholecystic fluid. The CBD is obscured. Sonographic Pablo sign is reportedly negative. Hepatopetal flow in the portal vein is seen. The right kidney is 11.7 cm in length with no hydronephrosis or focal lesion. No fluid collection is identified. IMPRESSION: 1. Mild hepatomegaly. The liver echogenicity is also increased which could relate to hepatitis or fatty infiltration. 2. Significant gallbladder wall thickening without stones or pericholecystic fluid. This could relate to acalculus cholecystitis. Sonographic Pablo sign however is reportedly negative. Alternatively, this could be secondary to liver disease. Correlate clinically. Dictated by: Dictated on workstation # [id number]
[2017-04-23] MEDS: ROSUVASTATIN 5 MG (CRESTOR) TABLET PO SCH (20:03)
[2017-04-23] MEDS: inSUlin DETERMIR 1 UNIT/0.01 ML (LEVEMIR) CHARGE PER UNIT SQ SCH (20:06)
[2017-04-24] MEDS: RT-ALBUTEROL SULF 2.5 MG/3 ML PRE-MIX VIAL IH SCH ×6 (02:07→22:03)
[2017-04-24] MEDS: NS IV 1000 ML 1,000 ML IV SCH ×3 (02:53→20:20)
[2017-04-24 04:00] VITALS: BP 154/89
[2017-04-24 05:12] LABS: BASOPHILS % (AUTO) 0 % (0-10); EOSINOPHILS % (AUTO) 0 % (0-10); LYMPHOCYTES # (AUTO) 2.6 X 10^3 (1.0-4.0); LYMPHOCYTES % (AUTO) 11 % (12-44); MEAN CORPUSCULAR HEMOGLOBIN 28 PG (25-34); MEAN CORPUSCULAR HGB CONC 33 G/DL (32-36); MEAN CORPUSCULAR VOLUME 84 FL (80-99); MEAN PLATELET VOLUME 10.6 FL (7.4-10.4); MONOCYTES # (AUTO) 2.4 X 10^3 (0.0-1.0); MONOCYTES % (AUTO) 10 % (0-12); NEUTROPHILS # (AUTO) 18.1 X 10^3 (1.8-7.8); NEUTROPHILS % (AUTO) 79 % (42-75); PLATELET COUNT 267 10^3/uL (130-400); RED BLOOD COUNT 4.04 10^6/uL (4.35-5.85); RED CELL DISTRIBUTION WIDTH 17.4 % (10.0-14.5); WHITE BLOOD COUNT 23.1 10^3/uL (4.3-11.0)
[2017-04-24 05:30] LABS: CALCIUM 8.6 MG/DL (8.5-10.1); CREATININE SERUM 1.45 MG/DL (0.60-1.30); MAGNESIUM 2.5 MG/DL (1.8-2.4); PHOSPHORUS 3.6 MG/DL (2.3-4.7); POTASSIUM 3.3 MMOL/L (3.6-5.0)
[2017-04-24] MEDS: inSUlin ASPART (NovoLOG) 1 UNIT/0.01 ML (CHARGE PER UNIT) SC SCH ×8 (05:51→21:24)
[2017-04-24] MEDS: UMECLIDINIUM BROMIDE (INCRUSE ELLIPTA) 7'S IH SCH (06:26)
[2017-04-24] MEDS: RT-ADVAIR HFA 115/21 MCG PER PUFF IH SCH ×2 (06:26→18:49)
[2017-04-24] MEDS: KCL 20 MEQ TAB (K-DUR) PO SCH ×2 (06:43→17:28)
[2017-04-24] MEDS: PANTOPRAZOLE 40 MG (PROTONIX) TAB PO SCH (06:43)
[2017-04-24] MEDS: LEVOTHYROXINE 25 MCG (LEVOTHROID) TAB PO SCH (06:43)
--- NOTE | 2017-04-24 07:06 | Diagnostic Imaging Report ---
INDICATION: COPD. COMPARISON: 04/23/2017 FINDINGS: 2 frontal radiographic views of the chest were obtained and demonstrate persistent moderate cardiomegaly and prominence of the pulmonary vasculature. Lung araiza show slight prominence of the interstitium. There is no focal alveolar consolidation, large effusion, pneumothorax. Bony structures show no gross acute abnormalities. Sternotomy wires are noted. IMPRESSION: 1. Essentially stable exam of the chest showing cardiomegaly, pulmonary vascular congestion and probable mild diffuse interstitial edema. Dictated by: Dictated on workstation # [id number]
--- NOTE | 2017-04-24 07:12 | Pulmonary Progress Note ---
Subjective Time Seen by Provider: 07:07 Subjective/Events-last exam Pt is doing better however still SOB and strong nonproductive cough. Exam Exam Vital Signs Date Time Temp Pulse Resp B/P (MAP) Pulse Ox O2 Delivery O2 Flow Rate FiO2 04/24/17 06:26 95 Nasal Cannula 1.00 04/24/17 04:00 97.6 77 18 154/89 95 Nasal Cannula 1.00 04/24/17 02:09 98 NIV CPAP 4.00 04/24/17 01:00 60 04/23/17 23:51 97.3 73 16 169/96 94 Nasal Cannula 2.00 04/23/17 21:57 95 NIV CPAP 4.00 04/23/17 21:00 Nasal Cannula 2.00 04/23/17 19:59 97.7 67 18 143/80 94 Nasal Cannula 1.00 04/23/17 19:00 75 04/23/17 18:16 93 04/23/17 16:16 97.4 Nasal Cannula 1.00 04/23/17 16:13 Nasal Cannula 2.00 04/23/17 16:00 56 15 127/84 95 Nasal Cannula 1.00 04/23/17 15:00 56 32 97/81 92 Nasal Cannula 1.00 04/23/17 14:11 95 Nasal Cannula 2.00 04/23/17 14:00 61 18 95 Nasal Cannula 2.00 04/23/17 13:00 61 04/23/17 13:00 62 14 93 Nasal Cannula 2.00 04/23/17 13:00 Nasal Cannula 2.00 04/23/17 12:00 97.4 Nasal Cannula 2.00 04/23/17 12:00 65 25 109/41 94 Nasal Cannula 2.00 04/23/17 11:00 68 21 128/73 94 Nasal Cannula 2.00 04/23/17 10:00 77 24 117/ 95 Nasal Cannula 2.00 04/23/17 09:51 96 Nasal Cannula 2.00 04/23/17 09:00 77 126/ 94 Nasal Cannula 2.00 04/23/17 09:00 Nasal Cannula 2.00 04/23/17 08:00 70 111/82 95 Nasal Cannula 3.00 04/23/17 08:00 97.7 Nasal Cannula 2.00 General Appearance: No Apparent Distress, WD/WN HEENT: PERRL/EOMI, No Scleral Icterus (L), No Scleral Icterus (R) Neck: Non Tender, Supple, JVD Respiratory: Decreased Breath Sounds (bilateral bases, no crackles/wheezes) Cardiovascular: Regular Rate, Rhythm, No Murmur Capillary Refill: Less Than 3 Seconds Gastrointestinal: non tender, soft Extremity: No Calf Tenderness, Swelling (3-4+ pitting edema bilaterally to knees) Neurologic/Psychiatric: Alert, Oriented x3 Skin: Normal Color, Warm/Dry, Other (venous stasis dermatitis noted bilaterally ) Results Lab Laboratory Tests 04/22/17 12:14 04/22/17 20:32 04/23/17 01:13 04/23/17 03:35 04/23/17 09:09 04/24/17 04:57 04/24/17 04:59 Assessment/Plan Assessment/Plan COPD/asthmaAE - No signs of PNA -oxygen, SVNS -CT of chest reviewed -solumedrol 40 IV Q 6 -Will give 1hr long SVN today Leukocytosis probably secondary to steroids -Steroids have been D/Cd -Cabrera culture - hold off on Abx for now CHF -Lasix, monitor JOSE MANUEL -Pt is compliant with CPAP and uses 3 liters of oxygen with it. CKD -monitor IDDM Restart home insulin -D/C insulin gtt Chronic Afib - controlled 233 Clinical Quality Measures DVT/VTE Risk/Contraindication: Risk Factor Score Per Nursin RFS Level Per Nursing on Admit: 4+=Very High RAIMUNDO MATTHEWS DO Apr 24, 2017 07:12
[2017-04-24 08:00] VITALS: BP 155/88
[2017-04-24] MEDS ORDERED: RT-ALBUTEROL SULF 2.5 MG/3 ML PRE-MIX VIAL IH ONE (08:00)
[2017-04-24] MEDS ORDERED: RT-IPRATROPIUM (ATROVENT) 0.5MG/2.5ML AMP IH ONE (08:00)
[2017-04-24] MEDS: CLOPIDOGREL 75 MG (PLAVIX) TABLET PO SCH (08:17)
[2017-04-24] MEDS: APIXABAN 5 MG (ELIQUIS) TABLET PO SCH ×2 (08:17→21:23)
[2017-04-24] MEDS: DILTIAZEM 240 MG (CARDIZEM CD) CAP PO SCH (08:17)
[2017-04-24] MEDS: SPIRONOLACTONE 25 MG (ALDACTONE) TAB PO SCH (08:17)
[2017-04-24] MEDS: FUROSEMIDE 40 MG (LASIX) TAB PO SCH (08:17)
[2017-04-24] MEDS: meTOproloL SUCCINATE 50 MG (TOPROL XL) TAB PO SCH (08:17)
[2017-04-24 08:54] LABS: BILIRUBIN,URINE NEGATIVE (NEGATIVE); KETONES,URINE NEGATIVE (NEGATIVE); LEUKOCYTE ESTERASE ,URINE NEGATIVE (NEGATIVE); NITRITE,URINE NEGATIVE (NEGATIVE); PH,URINE 6 (5-9); PROTEIN,URINE NEGATIVE (NEGATIVE); UROBILINOGEN,URINE NORMAL (NORMAL)
[2017-04-24 09:02] LABS: SQUAMOUS EPITHELIAL CELL,UR RARE /HPF; WBC,URINE RARE /HPF
--- NOTE | 2017-04-24 09:04 | Progress Note-Cardiology ---
Cardiology SOAP Progress Note Subjective: Sitting up in a chair at the bedside. Feels more SOB today. No c/o CP, palpitations, syncope or near syncope. Objective: I&O/Vital Signs Vital Sign - Last 12Hours 04/24/17 04/24/17 04/24/17 04/24/17 06:26 08:00 08:14 09:00 Temp 97.3 Pulse 88 Resp 20 B/P (MAP) 155/88 Pulse Ox 95 93 94 O2 Delivery Nasal Cannula Room Air Room Air Room Air O2 Flow Rate 1.00 04/24/17 04/24/17 04/24/17 04/24/17 09:07 11:20 12:00 13:00 Temp 97.7 Pulse 77 92 80 Resp 20 B/P (MAP) 145/87 Pulse Ox 96 93 O2 Delivery Room Air Room Air 04/24/17 04/24/17 13:41 13:42 Pulse 80 Pulse Ox 98 98 O2 Delivery Room Air Weight (Pounds): 392 Weight (Ounces): 5.0 Weight (Calculated Kilograms): 177.645539 Constitutional: appears stated age, No apparent distress, well-developed, well- nourished Respiratory: wheezing (scattered expiratory), other (prolonged expiratory phase ) Gastrointestional: No tender, soft, No spleenomegaly Extremities: No clubbing, No cyanosis, significant edema (mod bilat pedal edema ) Neurologic/Psychiatric: alert, oriented x 3, power is 5/5 both on sides Skin: No rash, No ulcerations Results/Procedures: Labs Laboratory Tests 04/23/17 18:12: Glucometer 358H 04/23/17 20:05: Glucometer 352H 04/24/17 04:57: Sodium Level 136, Potassium Level 3.3L, Chloride Level 104, Carbon Dioxide Level 16L, Anion Gap 16H, Blood Urea Nitrogen 43H, Creatinine 1.45H, Estimat Glomerular Filtration Rate 49, BUN/Creatinine Ratio 30, Glucose Level 111H, Calcium Level 8.6, Phosphorus Level 3.6, Magnesium Level 2.5H 04/24/17 04:59: White Blood Count 23.1H, Red Blood Count 4.04L, Hemoglobin 11.2L, Hematocrit 34L , Mean Corpuscular Volume 84, Mean Corpuscular Hemoglobin 28, Mean Corpuscular Hemoglobin Concent 33, Red Cell Distribution Width 17.4H, Platelet Count 267, Mean Platelet Volume 10.6H, Neutrophils (%) (Auto) 79H, Lymphocytes (%) (Auto) 11L, Monocytes (%) (Auto) 10, Eosinophils (%) (Auto) 0, Basophils (%) (Auto) 0, Neutrophils # (Auto) 18.1H, Lymphocytes # (Auto) 2.6, Monocytes # (Auto) 2.4H, Eosinophils # (Auto) 0.0, Basophils # (Auto) 0.0 04/24/17 08:00: Lactic Acid Level 2.28*H 04/24/17 08:15: B-Type Natriuretic Peptide 172.7H 04/24/17 08:40: Urine Color YELLOW, Urine Clarity CLEAR, Urine pH 6, Urine Specific Emmett 1.010L, Urine Protein NEGATIVE, Urine Glucose (UA) NEGATIVE, Urine Ketones NEGATIVE, Urine Nitrite NEGATIVE, Urine Bilirubin NEGATIVE, Urine Urobilinogen NORMAL, Urine Leukocyte Esterase NEGATIVE, Urine RBC (Auto) 2+H, Urine RBC 2-5H , Urine WBC RARE, Urine Squamous Epithelial Cells RARE, Urine Crystals NONE, Urine Bacteria NEGATIVE, Urine Casts NONE, Urine Mucus NEGATIVE, Urine Culture Indicated NO 04/24/17 10:55: Lactic Acid Level 2.79*H 04/24/17 11:10: Glucometer 190H Laboratory Tests 04/22/17 20:32 04/23/17 01:13 04/23/17 03:35 04/23/17 09:09 04/24/17 04:57 04/24/17 04:59 A/P: Assessment: Multifactorial shortness of breath (see below) Acute on chronic exacerbation of COPD Acute on chronic diastolic CHF. Echo of 04/23/17: mod cardiomegaly, LVEF 50-55%, mild MR, PASP 35 mmHg Obesity-hypoventilation syndrome Persistent a-fib first diagnosed in early February 2016, rate controlled DKA - management per medical services OAC with Eliquis Sepsis with fever and recurrent right lower extremity cellulitis with history of ulcerations of the right foot in January 2016 CAD with a h/o CABG in 2006 at [facility] in [place], [place]. On cardiac cath of 11-11-15: Multivessel coronary disease including multiple more than 90% stenosis of the proximal and mid left anterior descending artery. The mid to distal left anterior descending artery is protected with a widely patent left internal mammary artery graft. The left circumflex artery had 99% ostial/ proximal stenosis to which successful stenting was carried out with Promus Premier 3.5 x 20 mm stent with a reduction of stenosis to 0% residual. The distal left circumflex and its obtuse marginal branches have diffuse moderate to moderately severe disease which were not intervened on. The right coronary artery is dominant and had 90% proximal stenosis to which successful stenting was carried out with Promus Premier 2.75 x 28 mm stent with reduction of stenosis to 0% residual. The distal right coronary artery has multiple stenoses of 50 to 60%, which were not intervened on. Cardiac cath of 11-11-15 showed well preserved global left ventricular systolic function and ejection fraction of 55 to 60%. Elevated left ventricular end- diastolic pressure which was measured at approximately 20 mmHg. No significant mitral regurgitation. ABIs on 01/13/[address] [facility] [place]: 1.1 on both sides Echocardiogram of July 2016: LVEF 55-60%. Mild TR. PASP approx 30mmHg. No evidence of valvular stenosis Hypertension Quit smoking in early Obesity with BMI approx 50 DM II Diabetic R foot ulcer, being managed by Dr Estrella Acute on Chronic renal insufficiency - chronic likely due in some part to diabetic nephropathy Sleep apnea syndrome - CPAP therapy - managed by Dr. Pairs Minimal carotid dz on u/s of November 2015 Plan: Dyspnea likely multifactorial. Acute on chronic exacerbation of COPD which is being managed by medical services. Acute on chronic diastolic CHF - clinically improved - continue diuretics Chronic a-fib with a controlled rate. We will continue CCB and BB. Continue OAC with Eliquis for stroke prophylaxis. Continue Plavix d/t known CAD. Monitor lab closely Replace electrolytes Physician Assessment Physician Assessment Lungs: fair to good air entry Cor: irreg, soft FELECIA at card base Abd: mod distention, audible bs, nontender Ext: mod edema A&R * As documented in our note above that I updated (italics) and as noted below * Complex management due to multiple comorbidities * Continues to be acidotic and has has leucocytosis. This is being managed by the Med and ICU services * Monitor labs BENJAMIN ARROYO BALL SHAGGER Apr 24, 2017 09:04 CATY PENALOZA MD FACP FAC CCDS Apr 24, 2017 16:06
--- NOTE | 2017-04-24 11:08 | Progress Note-Hospitalist ---
Subjective HPI/CC On Admission Date Seen by Provider: Apr 24, 2017 Time Seen by Provider: 09:15 chief complaint: Shortness of breath History of present illness:Patient is a 66-year-old male with a past medical history of coronary disease status post CABG and stenting hypertension chronic A. fib obstructive sleep apnea and some lipid and diabetes type II chronic kidney disease and congestive heart failure who presented to the emergency department with chief complaint of shortness of breath for the past one week to 10 days. He reports it's been getting worse over the past few days , He denies any fever or sputum production but he does have a dry cough. He has dyspnea on exertion that he is mostly wheelchair-bound and is hard for him to even transfer. He does not wear oxygen at home he had previously worn it for 10 years but for the past year he has had no longer worn it. He is noticed increased swelling in his legs and orthopnea. He does endorse a history of asthma but denies any wheezing or increased inhaler use. Subjective/Events-last exam Mr. pineda reported feeling more short of breath with increased wheezing this morning. He was given an hour-long breathing treatment upon my arrival was feeling a little bit better reporting only mild shortness of breath. He was maintaining saturations 95-96 percent on room air. His cough continues to be nonproductive. He denies chest pain only reporting shortness of breath and a restricted breathing sensation. He reports edema in the lower extremities continues to decrease. Appetite is improved a little. Objective Exam Vital Signs Vital Sign - Last 12Hours 04/21/17 14:15 Temp 98.9 Pulse 66 Resp 26 B/P (MAP) 120/72 Pulse Ox 94 O2 Delivery Nasal Cannula O2 Flow Rate 2.00 Capillary Refill : Less Than 3 Seconds General Appearance: Anxious, Chronically ill, Mild Distress, Obese Respiratory: Other (breath sounds throughout with mild expiratory wheezing bilaterally. He is using accessory muscles of respiration mildly with respiratory rate of 20) Cardiovascular: No Gallop, No Murmur, Irregularly Irregular Gastrointestinal: Normal Bowel Sounds, Non Tender, Soft, Other (due to morbid obesity unable to evaluate for organomegaly) Extremity: Other (on a bilateral 1-2+ lower extremity edema pitting with mild erythema. No evidence for skin breakdown is noted. No tenderness is noted.) Results/Procedures Lab Laboratory Tests 04/24/17 04:57 04/24/17 04:59 Assessment/Plan Assessment and Plan Assess & Plan/Chief Complaint 1. Acute on chronic COPD exacerbation no evidence for bacterial infection continue bronchodilator therapy and pulmonary toilet. Due to some increase in distress will hold transfer to fourth floor and continue to monitor. Chest x- ray are continues to reveal no evidence for pneumonia. His lactic acid level however was slightly higher at 2.2 this morning. He does not meet sepsis criteria and suspected bump due to diminished oxygenation overnight. 2. Leukocytosis likely steroid related. Dr. Whitney is holding steroids for now but he'll have to be reinitiated if breathing does not improve. 3. Acute on chronic diastolic heart failure appears to be moderating and is not likely contributing to this patient's shortness of breath considering BNP levels that are normalizing now just a little over 100. We'll continue to monitor. 4. Peripheral edema secondary to COPD with pulmonary hypertension and diastolic heart failure improving. 5. Type II diabetes mellitus insulin requiring patient has been switched back to basal bolus therapy from his insulin drip. No evidence for ketoacidosis. 6. Stage III chronic renal disease with decreasing BUN/creatinine ratio. Diagnosis/Problems Diagnosis/Problems (1) Congestive heart failure with preserved LV function, NYHA class 3 Status: Acute Assessment & Plan: Acutely decompensated heart failure CXR consistent with vascular congestion Review of old echos shows essentially preserved EF Continue to diurese with IV lasix Monitor I/Os Low Na Diet Fluid Restrict 1.5L (2) IDDM (insulin dependent diabetes mellitus) Status: Chronic Assessment & Plan: Blood sugars very elevated overnight, DC steroids Concerning for DKA (new acidosis on BMP this AM) but given fluid overloaded and already apparent respiratory compromise will hold IVF for now Started on insulin gtt A1c ordered Repeat BMP ordered for now (3) Chronic kidney disease Status: Chronic Assessment & Plan: Near baseline (baseline ~1.8), but up from yesterday If further elevation tomorrow will need to adjust lasix dosing (4) COPD (chronic obstructive pulmonary disease) Status: Chronic Assessment & Plan: Wheezing on exam as well but rest of exam less consistent with COPD exacerbation MAT Protocol and Duonebs Will hold further steroids (5) Essential (primary) hypertension Status: Chronic Assessment & Plan: Well controlled, continue home medications (6) Hypothyroidism Status: Chronic Assessment & Plan: Continue home Synthroid Qualifiers: Qualified Codes: E03.9 - Hypothyroidism, unspecified (7) JOSE MANUEL (obstructive sleep apnea) Status: Chronic Assessment & Plan: Wears CPAP, reports will bring in home CPAP to wear tonight (8) Obesity hypoventilation syndrome Status: Chronic (9) CAD (coronary artery disease) Status: Chronic Assessment & Plan: At baseline, continue on Plavix Has allergy to Statin Qualifiers: Qualified Codes: I25.810 - Atherosclerosis of coronary artery bypass graft(s ) without angina pectoris (10) Chronic atrial fibrillation Status: Chronic Assessment & Plan: Rate well controlled Continue Eliquis (11) Prophylactic measure Assessment & Plan: Eliquis for a-fib, no further DVT ppx Low Sodium Diet Saline Lock JOCELYNE MENJIVAR MD Apr 24, 2017 11:08
[2017-04-24] MEDS: methylPREDNISolone 40 MG/ML (Solu-MEDROL) VIAL IV SCH ×2 (11:55→17:29)
[2017-04-24 12:00] VITALS: BP 145/87
[2017-04-24 13:42] VITALS: BP 142/82
[2017-04-24 16:00] VITALS: BP 173/74
[2017-04-24] MEDS: ROSUVASTATIN 5 MG (CRESTOR) TABLET PO SCH (21:23)
[2017-04-24] MEDS: inSUlin DETERMIR 1 UNIT/0.01 ML (LEVEMIR) CHARGE PER UNIT SQ SCH (21:25)
[2017-04-25 00:27] VITALS: BP 146/86
[2017-04-25] MEDS: methylPREDNISolone 40 MG/ML (Solu-MEDROL) VIAL IV SCH ×3 (00:30→17:35)
[2017-04-25] MEDS: RT-ALBUTEROL SULF 2.5 MG/3 ML PRE-MIX VIAL IH SCH ×5 (02:53→21:11)
[2017-04-25] MEDS: NS IV 1000 ML 1,000 ML IV SCH (03:02)
[2017-04-25 04:27] VITALS: BP 140/80
[2017-04-25 06:08] LABS: BASOPHILS % (AUTO) 0 % (0-10); EOSINOPHILS % (AUTO) 0 % (0-10); LYMPHOCYTES % (AUTO) 8 % (12-44); MEAN CORPUSCULAR HEMOGLOBIN 28 PG (25-34); MEAN CORPUSCULAR HGB CONC 33 G/DL (32-36); MEAN CORPUSCULAR VOLUME 85 FL (80-99); MEAN PLATELET VOLUME 10.7 FL (7.4-10.4); MONOCYTES # (AUTO) 0.5 X 10^3 (0.0-1.0); MONOCYTES % (AUTO) 4 % (0-12); NEUTROPHILS # (AUTO) 12.3 X 10^3 (1.8-7.8); NEUTROPHILS % (AUTO) 89 % (42-75); PLATELET COUNT 244 10^3/uL (130-400); RED BLOOD COUNT 3.99 10^6/uL (4.35-5.85); RED CELL DISTRIBUTION WIDTH 17.4 % (10.0-14.5); WHITE BLOOD COUNT 13.9 10^3/uL (4.3-11.0)
--- NOTE | 2017-04-25 06:18 | Pulmonary Progress Note ---
Subjective Time Seen by Provider: 06:30 Subjective/Events-last exam No complications noted. Pt is currently Sp02 92% on RA. Exam Exam Vital Signs Date Time Temp Pulse Resp B/P (MAP) Pulse Ox O2 Delivery O2 Flow Rate FiO2 04/25/17 04:32 Room Air 04/25/17 04:27 97.5 66 16 140/80 92 NIV CPAP 3.00 04/25/17 02:53 92 NIV CPAP 3.00 04/25/17 01:00 66 04/25/17 00:27 97.6 75 16 146/86 92 NIV CPAP 3.00 04/25/17 00:00 90 Room Air 04/24/17 22:03 92 Room Air 04/24/17 21:00 Room Air 04/24/17 20:00 90 Room Air 04/24/17 19:00 77 04/24/17 18:47 92 Room Air 04/24/17 16:00 98.6 73 20 173/74 93 Room Air 04/24/17 13:42 80 98 04/24/17 13:41 98 Room Air 04/24/17 13:00 80 04/24/17 12:00 97.7 92 20 145/87 93 Room Air 04/24/17 11:20 96 Room Air 04/24/17 09:07 77 04/24/17 09:00 Room Air 04/24/17 08:14 94 Room Air 04/24/17 08:00 97.3 88 20 155/88 93 Room Air 04/24/17 06:26 95 Nasal Cannula 1.00 General Appearance: No Apparent Distress, WD/WN HEENT: PERRL/EOMI, No Scleral Icterus (L), No Scleral Icterus (R) Neck: Non Tender, Supple, JVD Respiratory: Decreased Breath Sounds (bilateral bases, no crackles/wheezes-- improved) Cardiovascular: Regular Rate, Rhythm, No Murmur Capillary Refill: Less Than 3 Seconds Gastrointestinal: non tender, soft Extremity: No Calf Tenderness, Swelling (3-4+ pitting edema bilaterally to knees) Neurologic/Psychiatric: Alert, Oriented x3 Skin: Normal Color, Warm/Dry, Other (venous stasis dermatitis noted bilaterally ) Results Lab Laboratory Tests 04/23/17 09:09 04/24/17 04:57 04/24/17 04:59 04/25/17 05:49 Assessment/Plan Assessment/Plan COPD/asthmaAE - No signs of PNA -oxygen, SVNS -CT of chest reviewed -solumedrol 40 IV Q 6 -- change to prednisone taper Leukocytosis probably secondary to steroids -Steroids have been D/Cd -Cabrrea culture - hold off on Abx for now CHF diastolic EF 50-55% -Lasix, monitor JOSE MANUEL -Pt is compliant with CPAP and uses 3 liters of oxygen with it. CKD -monitor IDDM Restart home insulin -D/C insulin gtt Chronic Afib - controlled To 4th floor if ok with cardiology pt is currently cardiac step down status. 232 Clinical Quality Measures DVT/VTE Risk/Contraindication: Risk Factor Score Per Nursin RFS Level Per Nursing on Admit: 4+=Very High RAIUMNDO MATTHEWS DO Apr 25, 2017 06:18
[2017-04-25 06:25] LABS: CALCIUM 8.7 MG/DL (8.5-10.1); CREATININE SERUM 1.29 MG/DL (0.60-1.30); MAGNESIUM 2.5 MG/DL (1.8-2.4); PHOSPHORUS 2.4 MG/DL (2.3-4.7); POTASSIUM 3.6 MMOL/L (3.6-5.0)
[2017-04-25] MEDS: LEVOTHYROXINE 25 MCG (LEVOTHROID) TAB PO SCH (06:44)
[2017-04-25] MEDS: RT-ADVAIR HFA 115/21 MCG PER PUFF IH SCH ×2 (06:44→21:14)
[2017-04-25] MEDS: PANTOPRAZOLE 40 MG (PROTONIX) TAB PO SCH (06:44)
[2017-04-25] MEDS: inSUlin ASPART (NovoLOG) 1 UNIT/0.01 ML (CHARGE PER UNIT) SC SCH ×8 (06:45→21:27)
[2017-04-25] MEDS: UMECLIDINIUM BROMIDE (INCRUSE ELLIPTA) 7'S IH SCH (06:45)
[2017-04-25] MEDS: KCL 20 MEQ TAB (K-DUR) PO SCH (06:45)
[2017-04-25 08:00] VITALS: BP 154/101
[2017-04-25] MEDS: SPIRONOLACTONE 25 MG (ALDACTONE) TAB PO SCH (08:37)
[2017-04-25] MEDS: APIXABAN 5 MG (ELIQUIS) TABLET PO SCH ×2 (08:37→21:26)
[2017-04-25] MEDS: meTOproloL SUCCINATE 50 MG (TOPROL XL) TAB PO SCH (08:37)
[2017-04-25] MEDS: DILTIAZEM 240 MG (CARDIZEM CD) CAP PO SCH (08:37)
[2017-04-25] MEDS: FUROSEMIDE 40 MG (LASIX) TAB PO SCH (08:37)
[2017-04-25] MEDS: CLOPIDOGREL 75 MG (PLAVIX) TABLET PO SCH (08:37)
[2017-04-25] MEDS ORDERED: predniSONE 10 MG TAB PO SCH (09:00)
--- NOTE | 2017-04-25 09:16 | Diagnostic Imaging Report ---
EXAMINATION: Portable upright radiograph of the chest. COMPARISON: 04/24/2017. FINDINGS: The cardiac size is moderately enlarged. There is minimal vascular congestion suggested with no focal infiltrate. The mediastinum and claribel appear unremarkable. Fractured sternotomy wires are seen. There is slight improvement in the lung aeration compared to the prior study. IMPRESSION: Cardiomegaly with minimal vascular congestion. Dictated by: Dictated on workstation # [id number]
[2017-04-25] MEDS ORDERED: ONDANSETRON 8 MG (ZOFRAN) ORAL DISSOLVE TAB PO PRN (10:00)
[2017-04-25] MEDS ORDERED: RT-ALBUTEROL SULF 2.5 MG/3 ML PRE-MIX VIAL IH PRN (10:30)
--- NOTE | 2017-04-25 11:13 | Progress Note-Cardiology ---
Cardiology SOAP Progress Note Subjective: He feels that his abd is bloated that causes him to be short of breath. No cp or palp or syncope Objective: I&O/Vital Signs Vital Sign - Last 12Hours 04/25/17 04/25/17 04/25/17 04/25/17 00:00 00:27 01:00 02:53 Temp 97.6 Pulse 75 66 Resp 16 B/P (MAP) 146/86 Pulse Ox 90 92 92 O2 Delivery Room Air NIV CPAP NIV CPAP O2 Flow Rate 3.00 3.00 04/25/17 04/25/17 04/25/17 04/25/17 04:27 04:32 06:40 07:00 Temp 97.5 Pulse 66 92 Resp 16 B/P (MAP) 140/80 Pulse Ox 92 91 O2 Delivery NIV CPAP Room Air Room Air O2 Flow Rate 3.00 04/25/17 08:00 Temp 96.7 Pulse 72 Resp 24 B/P (MAP) 154/101 Pulse Ox 94 O2 Delivery Nasal Cannula O2 Flow Rate 3.00 Weight (Pounds): 394 Weight (Ounces): 0.0 Weight (Calculated Kilograms): 178.588821 Constitutional: appears stated age, No apparent distress, well-developed, well- nourished Respiratory: wheezing (scattered expiratory), other (prolonged expiratory phase ) Gastrointestional: No tender, soft, No spleenomegaly Extremities: No clubbing, No cyanosis, significant edema (mod bilat pedal edema ) Neurologic/Psychiatric: alert, oriented x 3, power is 5/5 both on sides Skin: No rash, No ulcerations Results/Procedures: Labs Laboratory Tests 04/24/17 16:43: Glucometer 284H 04/24/17 21:05: Glucometer 329H 04/25/17 05:49: White Blood Count 13.9H, Red Blood Count 3.99L, Hemoglobin 11.0L, Hematocrit 34L , Mean Corpuscular Volume 85, Mean Corpuscular Hemoglobin 28, Mean Corpuscular Hemoglobin Concent 33, Red Cell Distribution Width 17.4H, Platelet Count 244, Mean Platelet Volume 10.7H, Neutrophils (%) (Auto) 89H, Lymphocytes (%) (Auto) 8L, Monocytes (%) (Auto) 4, Eosinophils (%) (Auto) 0, Basophils (%) (Auto) 0, Neutrophils # (Auto) 12.3H, Lymphocytes # (Auto) 1.0, Monocytes # (Auto) 0.5, Eosinophils # (Auto) 0.0, Basophils # (Auto) 0.0, Sodium Level 136, Potassium Level 3.6, Chloride Level 103, Carbon Dioxide Level 23, Anion Gap 10, Blood Urea Nitrogen 32H, Creatinine 1.29, Estimat Glomerular Filtration Rate 56, BUN/ Creatinine Ratio 25, Glucose Level 192H, Lactic Acid Level 1.62, Calcium Level 8.7, Phosphorus Level 2.4, Magnesium Level 2.5H 04/25/17 11:01: Laboratory Tests 04/24/17 04:57 04/24/17 04:59 04/25/17 05:49 Laboratory Tests 04/24/17 04:57 04/24/17 04:59 04/25/17 05:49 A/P: Assessment: Multifactorial shortness of breath (see below) Acute on chronic exacerbation of COPD Acute on chronic diastolic CHF. This appears clinically improved Echo of 04/23/17: mod cardiomegaly, LVEF 50-55%, mild MR, PASP 35 mmHg Obesity-hypoventilation syndrome Persistent a-fib first diagnosed in early February 2016, rate controlled DKA - management per medical services OAC with Eliquis Sepsis with fever and recurrent right lower extremity cellulitis with history of ulcerations of the right foot in January 2016 CAD with a h/o CABG in 2006 at [facility] in [place], [place]. On cardiac cath of 11-11-15: Multivessel coronary disease including multiple more than 90% stenosis of the proximal and mid left anterior descending artery. The mid to distal left anterior descending artery is protected with a widely patent left internal mammary artery graft. The left circumflex artery had 99% ostial/ proximal stenosis to which successful stenting was carried out with Promus Premier 3.5 x 20 mm stent with a reduction of stenosis to 0% residual. The distal left circumflex and its obtuse marginal branches have diffuse moderate to moderately severe disease which were not intervened on. The right coronary artery is dominant and had 90% proximal stenosis to which successful stenting was carried out with Promus Premier 2.75 x 28 mm stent with reduction of stenosis to 0% residual. The distal right coronary artery has multiple stenoses of 50 to 60%, which were not intervened on. Cardiac cath of 11-11-15 showed well preserved global left ventricular systolic function and ejection fraction of 55 to 60%. Elevated left ventricular end- diastolic pressure which was measured at approximately 20 mmHg. No significant mitral regurgitation. ABIs on 01/13/16 at [place], [place]: 1.1 on both sides Echocardiogram of July 2016: LVEF 55-60%. Mild TR. PASP approx 30mmHg. No evidence of valvular stenosis Hypertension Quit smoking in early Obesity with BMI approx 50 DM II Diabetic R foot ulcer, being managed by Dr Estrella Acute on Chronic renal insufficiency - chronic likely due in some part to diabetic nephropathy Sleep apnea syndrome - CPAP therapy - managed by Dr. Paris Minimal carotid dz on u/s of November 2015 Plan: Continue current regimen Monitor labs CATY PENALOZA MD FACP FAC CCDS Apr 25, 2017 11:13
--- NOTE | 2017-04-25 11:24 | Progress Note-Hospitalist ---
Progress Note HPI/CC on Admission chief complaint: Shortness of breath History of present illness:Patient is a 66-year-old male with a past medical history of coronary disease status post CABG and stenting hypertension chronic A. fib obstructive sleep apnea and some lipid and diabetes type II chronic kidney disease and congestive heart failure who presented to the emergency department with chief complaint of shortness of breath for the past one week to 10 days. He reports it's been getting worse over the past few days , He denies any fever or sputum production but he does have a dry cough. He has dyspnea on exertion that he is mostly wheelchair-bound and is hard for him to even transfer. He does not wear oxygen at home he had previously worn it for 10 years but for the past year he has had no longer worn it. He is noticed increased swelling in his legs and orthopnea. He does endorse a history of asthma but denies any wheezing or increased inhaler use. Progress Notes/Assess & Plan Date Seen 04/25/17 Time Seen by Provider: 10:00 Diagonsis/Assessment & Plan Chart Review: WBC elevated Lactic acid still normal Dr. Whitney Review: Dr. 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 Whitney has put in transfer orders for pt to 4th Pt is complaining of SOB, but pt is at 96% O2 US showed gallbladder thickening. There is not currently a general surgeon yet. Family is very curious about his treatment Patient Interview: US discussed with pt and is shows gallbladder thickening. Labs look okay. Pt admits to seeing Dr. Joy for general surgery. Pt states he knows he has some gallbladder issues and has had them for decades. Pt admits feeling SOB. Pt states that Dr. Whitney started him on Prednisone after he was seen coughing up 'garbage'. Pt was informed that he will be moving to 4th floor. Physical exam stable. Lungs sound okay Pt states that his SOB started to get worse during the humid weather recently. Pt asked if his gallbladder issues have caused some of his SOB. I informed him that we will confer with Dr. Joy for more information on this. AFVSS, Pleasant, O x 3, sitting in chair, unchanged essentially irr Irr, CTAB diminished in bases Noted trace edema Assessment: (1) Congestive heart failure with preserved LV function, NYHA class 3 Status: Acute Assessment & Plan: Acutely decompensated heart failure CXR consistent with vascular congestion Review of old echos shows essentially preserved EF Continue to diurese with IV lasix Monitor I/Os Low Na Diet Fluid Restrict 1.5L (2) IDDM (insulin dependent diabetes mellitus) Status: Chronic Assessment & Plan: Blood sugars very elevated overnight, DC steroids Concerning for DKA (new acidosis on BMP this AM) but given fluid overloaded and already apparent respiratory compromise will hold IVF for now Started on insulin gtt 3 days ago now transitioned to SQ home dosing A1c ordered (3) Chronic kidney disease Status: Chronic Assessment & Plan: Near baseline (baseline ~1.8), but up from yesterday If further elevation will need to adjust lasix dosing (4) COPD (chronic obstructive pulmonary disease) Status: Chronic Assessment & Plan: Wheezing on exam as well but rest of exam less consistent with COPD exacerbation MAT Protocol and Duonebs IV steroids low dose due to PO prednisone not as effective for the patient in the past (5) Essential (primary) hypertension Status: Chronic Assessment & Plan: Well controlled, continue home medications (6) Hypothyroidism Status: Chronic Assessment & Plan: Continue home Synthroid Qualifiers: Qualified Codes: E03.9 - Hypothyroidism, unspecified (7) JOSE MANUEL (obstructive sleep apnea) Status: Chronic Assessment & Plan: Wears CPAP, reports will bring in home CPAP to wear tonight (8) Obesity hypoventilation syndrome Status: Chronic (9) CAD (coronary artery disease) Status: Chronic Assessment & Plan: At baseline, continue on Plavix Has allergy to Statin Qualifiers: Qualified Codes: I25.810 - Atherosclerosis of coronary artery bypass graft(s ) without angina pectoris (10) Chronic atrial fibrillation Status: Chronic Assessment & Plan: Rate well controlled Continue Eliquis (11) Prophylactic measure Assessment & Plan: Eliquis for a-fib, no further DVT ppx Low Sodium Diet Saline Lock Plan: Appreciate Pulmonary and Cardiology management Conferred with Dr. Joy Possible DC next week? Heplock IVF Transfer to 4th floor Swingbed eval? restart IV steroids Scribed by Sarah Dowling under the direct supervision of Dr. Pat. CHAO PAT DO Apr 25, 2017 11:23
[2017-04-25 12:00] VITALS: BP 166/74
--- NOTE | 2017-04-25 13:32 | CONSULTATION REPORT ---
DATE OF SERVICE: 04/25/2017 ATTENDING/PRIMARY CARE PHYSICIAN: Dr. America Hutton. HISTORY OF PRESENT ILLNESS: The patient is a 66-year-old male known to us. We had seen him in 07/2016 for endoscopy. This gentleman has multiple medical problems including COPD, hypertension, hypercholesterolemia, history of myocardial infarction in 11/2015, atrial fibrillation, coronary artery disease as well as diabetes. He has been admitted for pneumonia several times with the most recent one being at this admission and exacerbation of COPD. He reports that he became short of breath at rest and could not keep his breath. He was admitted to the ICU where scans were performed which were consistent with pneumonia. He was started on IV antibiotics and over time has improved some. A CT scan was also performed of the chest as well as the upper abdomen. There was an incidental finding of gallbladder wall thickening as well as mild inflammatory changes around the gallbladder. He reports that he has had some intermittent issues with pain in the upper abdomen in the past; however, this has been ongoing for greater than 10 years. He states at this time this may occur few times a month; however, may not occur for a year. He reports at this time there is no pain along the right upper abdomen as well as no pain with radiation towards the back. He also does not report any nausea or vomiting. Upon palpation of the right upper abdominal quadrant, there is no pain. PAST MEDICAL HISTORY: COPD, asthma, chronic pharyngitis, prostatitis, hypertension, hypercholesterolemia, history of myocardial infarction, coronary artery disease, diabetes, peptic ulcer disease, atrial fibrillation. PAST SURGICAL HISTORY: Coronary artery bypass graft x 1 vessel in 2007, cardiac catheterization and stent placement x 2 vessels 11/2015. ALLERGIES: STATINS and FISH OIL cause nausea. MEDICATIONS: Metaxalone 5 mg daily, Synthroid 25 mcg daily, potassium 20 mEq daily, Eliquis 5 mg b.i.d., aspirin 81 mg daily, Plavix 75 mg daily, Cardizem 120 mg daily, Spiriva 2.5 mcg 2 puffs daily, Zofran p.r.n., hydrocodone p.r.n., insulin sliding scale, Lantus insulin 20 units each day at bedtime, Singulair 10 mg daily, albuterol nebulizer q.i.d., Atrovent t.i.d., Zyrtec daily, Crestor 5 mg daily, metoprolol 50 mg daily, Advair Diskus 500/50 mg b.i.d., spironolactone 25 mg b.i.d., Proscar 5 mg daily, Flomax 0.4 mg daily. SOCIAL HISTORY: Previous smoker quit 1999, mild social alcohol. FAMILY HISTORY: Noncontributory. VITAL SIGNS: Temperature 96.7, blood pressure 154/101, pulse 72, respirations 24, pulse ox 94% on 3 L nasal cannula. REVIEW OF SYSTEMS: This is a well-nourished male currently in no acute distress. He is on oxygen nasal cannula and states that his shortness of breath has improved; however, it is worsened upon ambulation. He reports some cough and sputum production; however, this has improved as well. No nausea, vomiting, no diarrhea or constipation, no red blood per rectum, no dark tarry stools. No fever or chills. No recent inadvertent weight loss. All other review of systems negative. PHYSICAL EXAMINATION: CHEST: Scattered wheezes and rhonchi bilaterally with decreased breath sounds at the lung bases. HEART: Regular, no murmurs. EXTREMITIES: +2/3 bilateral lower extremity edema, negative Homans sign. HEENT: No scleral icterus. No cervical lymphadenopathy. ABDOMEN: Obese with a large overlying pannus. Upon deep palpation of the right upper abdominal quadrant as well as the epigastric region, there is no elicited pain. SKIN: Warm and dry. LABORATORY DATA: WBC 13.9, hemoglobin 11.0, hematocrit 34, platelets 244. Liver function enzymes are normal. ASSESSMENT AND PLAN: A 66-year-old male with chronic acalculous cholecystitis. He reports having intermittent symptoms in the past; however, this has been greater than 10 years. He does have a multitude of medical problems and most likely he did have exacerbation of COPD from pneumonia. Upon physical examination, he does not have any Pablo's sign as well as no pain in the abdomen or in the epigastric region as well as no radiation of pain towards his shoulder or back. He is also tolerating a regular diet without any nausea or vomiting. His initial white count was elevated; however, this has improved. At this time, due to his multitude of medical problems including exacerbation of COPD and being oxygen dependent as well as being on anticoagulation for atrial fibrillation, we will recommend conservative management. We will continue antibiotics as well as low fat diet; however, if he becomes symptomatic with increasing frequencies of pain in the right upper abdominal quadrant as well as the epigastric region with radiation towards the back as well as possible fevers and chills and nausea and vomiting, he may potentially need surgery and we would want him to be an optimal condition with optimal cardiorespiratory status and potentially plan this as an outpatient with cessation of blood thinners and bridging with Lovenox. For the time being, we will continue to monitor his progress. Job ID: [id number] DocumentID: [id number] Dictated Date: 04/25/2017 12:31:07 Medical Cost Consultant Date: 04/25/2017 13:22:38 Dictated By: HAWK GREENWOOD MD MTDD
[2017-04-25 16:13] VITALS: BP 151/85
[2017-04-25 19:36] VITALS: BP 179/88
[2017-04-25] MEDS: ROSUVASTATIN 5 MG (CRESTOR) TABLET PO SCH (21:25)
[2017-04-25] MEDS: MONTELUKAST 10 MG (SINGULAIR) TAB PO SCH (21:26)
[2017-04-25] MEDS: KCL 10 MEQ TAB (MICRO K) PO SCH (21:26)
[2017-04-25] MEDS: inSUlin DETERMIR 1 UNIT/0.01 ML (LEVEMIR) CHARGE PER UNIT SQ SCH (21:27)
[2017-04-26] VITALS: BP 117/81
[2017-04-26] MEDS: methylPREDNISolone 40 MG/ML (Solu-MEDROL) VIAL IV SCH ×4 (00:21→21:26)
[2017-04-26 04:00] VITALS: BP 153/90
[2017-04-26] MEDS: inSUlin ASPART (NovoLOG) 1 UNIT/0.01 ML (CHARGE PER UNIT) SC SCH ×8 (05:36→21:28)
[2017-04-26] MEDS: PANTOPRAZOLE 40 MG (PROTONIX) TAB PO SCH (05:44)
[2017-04-26] MEDS: LEVOTHYROXINE 25 MCG (LEVOTHROID) TAB PO SCH (05:44)
[2017-04-26 05:45] LABS: BASOPHILS % (AUTO) 0 % (0-10); EOSINOPHILS % (AUTO) 0 % (0-10); LYMPHOCYTES # (AUTO) 1.3 X 10^3 (1.0-4.0); LYMPHOCYTES % (AUTO) 7 % (12-44); MEAN CORPUSCULAR HEMOGLOBIN 28 PG (25-34); MEAN CORPUSCULAR HGB CONC 33 G/DL (32-36); MEAN CORPUSCULAR VOLUME 86 FL (80-99); MEAN PLATELET VOLUME 10.8 FL (7.4-10.4); MONOCYTES # (AUTO) 1.2 X 10^3 (0.0-1.0); MONOCYTES % (AUTO) 6 % (0-12); NEUTROPHILS # (AUTO) 16.4 X 10^3 (1.8-7.8); NEUTROPHILS % (AUTO) 87 % (42-75); PLATELET COUNT 247 10^3/uL (130-400); RED BLOOD COUNT 4.06 10^6/uL (4.35-5.85); RED CELL DISTRIBUTION WIDTH 17.5 % (10.0-14.5); WHITE BLOOD COUNT 18.8 10^3/uL (4.3-11.0)
[2017-04-26 06:06] LABS: CALCIUM 8.9 MG/DL (8.5-10.1); CREATININE SERUM 1.33 MG/DL (0.60-1.30); POTASSIUM 3.5 MMOL/L (3.6-5.0)
--- NOTE | 2017-04-26 06:09 | Pulmonary Progress Note ---
Subjective Time Seen by Provider: 09:37 Subjective/Events-last exam No complications noted. Exam Exam Vital Signs Date Time Temp Pulse Resp B/P (MAP) Pulse Ox O2 Delivery O2 Flow Rate FiO2 04/26/17 00:00 99.1 77 19 117/81 93 Room Air 04/25/17 21:23 94 Nasal Cannula 2.50 04/25/17 21:15 93 Nasal Cannula 2.50 04/25/17 21:00 Nasal Cannula 2.00 04/25/17 19:36 98.7 66 18 179/88 95 Nasal Cannula 3.00 04/25/17 16:13 97.8 64 20 151/85 92 Nasal Cannula 3.00 04/25/17 14:51 91 Room Air 04/25/17 12:00 97.7 77 24 166/74 94 Nasal Cannula 3.00 04/25/17 09:00 Room Air 04/25/17 08:00 96.7 72 24 154/101 94 Nasal Cannula 3.00 04/25/17 07:00 92 04/25/17 06:40 91 Room Air General Appearance: No Apparent Distress, WD/WN HEENT: PERRL/EOMI, No Scleral Icterus (L), No Scleral Icterus (R) Neck: Non Tender, Supple, JVD Respiratory: Decreased Breath Sounds (bilateral bases, no crackles/wheezes-- improved) Cardiovascular: Regular Rate, Rhythm, No Murmur Capillary Refill: Less Than 3 Seconds Gastrointestinal: non tender, soft Extremity: No Calf Tenderness, Swelling (3-4+ pitting edema bilaterally to knees) Neurologic/Psychiatric: Alert, Oriented x3 Skin: Normal Color, Warm/Dry, Other (venous stasis dermatitis noted bilaterally ) Results Lab Laboratory Tests 04/25/17 05:49 04/26/17 05:11 Assessment/Plan Assessment/Plan COPD/asthmaAE - No signs of PNA -oxygen, SVNS -CT of chest reviewed -solumedrol 40 IV Q 6 -- change to Q12 Leukocytosis probably secondary to steroids -Steroids have been D/Cd -Cabrera culture - hold off on Abx for now CHF diastolic EF 50-55% -Lasix, monitor JOSE MANUEL -Pt is compliant with CPAP and uses 3 liters of oxygen with it. CKD -monitor IDDM Restart home insulin -D/C insulin gtt Chronic Afib - controlled 232 Clinical Quality Measures DVT/VTE Risk/Contraindication: Risk Factor Score Per Nursin RFS Level Per Nursing on Admit: 4+=Very High RAIMUNDO MATTHEWS DO Apr 26, 2017 06:09
[2017-04-26] MEDS: RT-ALBUTEROL SULF 2.5 MG/3 ML PRE-MIX VIAL IH SCH ×4 (06:45→19:48)
[2017-04-26] MEDS: RT-ADVAIR HFA 115/21 MCG PER PUFF IH SCH ×2 (06:46→19:48)
[2017-04-26] MEDS: meTOproloL SUCCINATE 50 MG (TOPROL XL) TAB PO SCH (08:17)
[2017-04-26] MEDS: KCL 10 MEQ TAB (MICRO K) PO SCH ×2 (08:17→21:26)
[2017-04-26] MEDS: CLOPIDOGREL 75 MG (PLAVIX) TABLET PO SCH (08:17)
[2017-04-26] MEDS: METOLAZONE 5 MG (ZAROXOLYN) TAB PO SCH (08:17)
[2017-04-26] MEDS: APIXABAN 5 MG (ELIQUIS) TABLET PO SCH ×2 (08:17→21:26)
[2017-04-26] MEDS: FUROSEMIDE 40 MG (LASIX) TAB PO SCH (08:17)
[2017-04-26] MEDS: SPIRONOLACTONE 25 MG (ALDACTONE) TAB PO SCH (08:17)
[2017-04-26] MEDS: DILTIAZEM 240 MG (CARDIZEM CD) CAP PO SCH (08:17)
[2017-04-26 08:26] VITALS: BP 149/77
[2017-04-26] MEDS ORDERED: FUROSEMIDE 40 MG (LASIX) TAB PO SCH (09:00)
[2017-04-26] MEDS ORDERED: SPIRONOLACTONE 25 MG (ALDACTONE) TAB PO SCH (09:00)
[2017-04-26] MEDS ORDERED: KCL 20 MEQ TAB (K-DUR) PO ONE (09:45)
[2017-04-26] MEDS ORDERED: FUROSEMIDE 40 MG/4 ML INJ (LASIX) IVP ONE (09:45)
--- NOTE | 2017-04-26 09:46 | Progress Note-Cardiology ---
Cardiology SOAP Progress Note Subjective: C/O SOB and orthopnea. No c/o CP, palpitations, syncope or near syncope. States he does not feel much better from yesterday. C/O LE edema. Objective: I&O/Vital Signs Vital Sign - Last 12Hours 04/26/17 04/26/17 04/26/17 04/26/17 06:47 06:47 08:20 08:26 Temp 97.8 Pulse 73 Resp 22 B/P (MAP) 149/77 Pulse Ox 89 90 92 94 O2 Delivery Room Air Room Air Nasal Cannula Room Air O2 Flow Rate 2.00 04/26/17 04/26/17 04/26/17 04/26/17 10:44 12:00 14:34 16:36 Temp 98.7 96.7 Pulse 77 70 Resp 22 19 B/P (MAP) 139/70 171/78 Pulse Ox 92 92 92 96 O2 Delivery Nasal Cannula Room Air Nasal Cannula Room Air O2 Flow Rate 2.00 2.00 Intake and Output 04/27/17 00:00 Intake Total 1276 ml Output Total 3050 ml Balance -1774 ml Weight (Pounds): 399 Weight (Ounces): 6.0 Weight (Calculated Kilograms): [phone] Constitutional: appears stated age, No apparent distress, well-developed, well- nourished Respiratory: wheezing (scattered throughout all araiza; orthopnea), other ( prolonged expiratory phase) Cardiovascular: irregularly irregular Gastrointestional: No tender, soft, No spleenomegaly Extremities: No clubbing, No cyanosis, significant edema (2-3(+) bilat pitting edema) Neurologic/Psychiatric: alert, oriented x 3, power is 5/5 both on sides Skin: No rash, No ulcerations Results/Procedures: Labs Laboratory Tests 04/25/17 20:29: Glucometer 191H 04/26/17 05:11: White Blood Count 18.8H, Red Blood Count 4.06L, Hemoglobin 11.3L, Hematocrit 35L , Mean Corpuscular Volume 86, Mean Corpuscular Hemoglobin 28, Mean Corpuscular Hemoglobin Concent 33, Red Cell Distribution Width 17.5H, Platelet Count 247, Mean Platelet Volume 10.8H, Neutrophils (%) (Auto) 87H, Lymphocytes (%) (Auto) 7L, Monocytes (%) (Auto) 6, Eosinophils (%) (Auto) 0, Basophils (%) (Auto) 0, Neutrophils # (Auto) 16.4H, Lymphocytes # (Auto) 1.3, Monocytes # (Auto) 1.2H, Eosinophils # (Auto) 0.0, Basophils # (Auto) 0.0, Sodium Level 138, Potassium Level 3.5L, Chloride Level 102, Carbon Dioxide Level 25, Anion Gap 11, Blood Urea Nitrogen 36H, Creatinine 1.33H, Estimat Glomerular Filtration Rate 54, BUN/ Creatinine Ratio 27, Glucose Level 101, Calcium Level 8.9 04/26/17 05:36: Glucometer 125H 04/26/17 11:29: Glucometer 198H 04/26/17 16:32: Glucometer 174H Microbiology 04/24/17 Blood Culture - Preliminary, Resulted No growth A/P: Assessment: Multifactorial shortness of breath (see below) Acute on chronic exacerbation of COPD Acute on chronic diastolic CHF Echo of 04/23/17: mod cardiomegaly, LVEF 50-55%, mild MR, PASP 35 mmHg Obesity-hypoventilation syndrome Persistent a-fib first diagnosed in early February 2016, rate controlled DKA - management per medical services OAC with Eliquis Sepsis with fever and recurrent right lower extremity cellulitis with history of ulcerations of the right foot in January 2016 CAD with a h/o CABG in 2006 at [facility] in [place], [place]. On cardiac cath of 11-11-15: Multivessel coronary disease including multiple more than 90% stenosis of the proximal and mid left anterior descending artery. The mid to distal left anterior descending artery is protected with a widely patent left internal mammary artery graft. The left circumflex artery had 99% ostial/ proximal stenosis to which successful stenting was carried out with Promus Premier 3.5 x 20 mm stent with a reduction of stenosis to 0% residual. The distal left circumflex and its obtuse marginal branches have diffuse moderate to moderately severe disease which were not intervened on. The right coronary artery is dominant and had 90% proximal stenosis to which successful stenting was carried out with Promus Premier 2.75 x 28 mm stent with reduction of stenosis to 0% residual. The distal right coronary artery has multiple stenoses of 50 to 60%, which were not intervened on. Cardiac cath of 11-11-15 showed well preserved global left ventricular systolic function and ejection fraction of 55 to 60%. Elevated left ventricular end- diastolic pressure which was measured at approximately 20 mmHg. No significant mitral regurgitation. ABIs on 01/13/16 at [place], [place]: 1.1 on both sides Echocardiogram of July 2016: LVEF 55-60%. Mild TR. PASP approx 30mmHg. No evidence of valvular stenosis Hypertension Quit smoking in early Obesity with BMI approx 50 DM II Diabetic R foot ulcer, being managed by Dr Estrella Acute on Chronic renal insufficiency - chronic likely due in some part to diabetic nephropathy Sleep apnea syndrome - CPAP therapy - managed by Dr. Paris Minimal carotid dz on u/s of November 2015 Plan: Worsening dyspnea, weight gain and lower extremity edema - give additional Lasix IV x 1 dose today Replace electrolytes Monitor lab closely CXR - pending Physician Assessment Physician Assessment Feels short of breath w/o oxygen. No other complaints Lungs: good bilat air entry Cor: reg Ext: no c/c A&R * As documented in our note above that I updated (italics) and as noted below * Continue current cardiac regimen BENJAMIN ARROYO TEAM FACILITATOR Apr 26, 2017 09:46 CTAY PENALOZA MD FACP FAC CCDS Apr 26, 2017 18:33
--- NOTE | 2017-04-26 09:50 | Diagnostic Imaging Report ---
INDICATION: COPD. Frontal chest obtained at 3:46 a.m. and compared to yesterday. FINDINGS: There is cardiomegaly and poststernotomy change. There is no pneumothorax or pleural fluid. There is central vascular congestion. IMPRESSION: Cardiomegaly and poststernotomy change with central vascular congestion. No focal infiltrate or pneumothorax or pleural fluid. Dictated by: Dictated on workstation # [id number]
--- NOTE | 2017-04-26 11:48 | Progress Note-Hospitalist ---
Progress Note HPI/CC on Admission chief complaint: Shortness of breath History of present illness:Patient is a 66-year-old male with a past medical history of coronary disease status post CABG and stenting hypertension chronic A. fib obstructive sleep apnea and some lipid and diabetes type II chronic kidney disease and congestive heart failure who presented to the emergency department with chief complaint of shortness of breath for the past one week to 10 days. He reports it's been getting worse over the past few days , He denies any fever or sputum production but he does have a dry cough. He has dyspnea on exertion that he is mostly wheelchair-bound and is hard for him to even transfer. He does not wear oxygen at home he had previously worn it for 10 years but for the past year he has had no longer worn it. He is noticed increased swelling in his legs and orthopnea. He does endorse a history of asthma but denies any wheezing or increased inhaler use. 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 Dr. Estrella will be consulted Patient Interview: Bloodwork and CXR discussed Pt asked about weaning off O2. Pt was informed that he needs to stay on O2 to support his lungs Pt denies having BMs Pt confirms eating and drinking Physical exam stable. Lungs still wheezing Pt was informed that he will need to stay at [facility] due to his lung function for a few more days and the pt was not very happy with this. Pt would like a small O2 tank so he could be more mobile in the halls. Pt states he called [facility] and had it set up for DC, but pt would like it for the rest of his stay as well AFVSS, Pleasant, O x 3, sitting in chair, unchanged essentially irr Irr, CTAB diminished in bases w/wheezing Noted trace edema Assessment: (1) Congestive heart failure with preserved LV function, NYHA class 3 Status: Acute Assessment & Plan: Acutely decompensated heart failure CXR consistent with vascular congestion Review of old echos shows essentially preserved EF Continue to diurese with IV lasix Monitor I/Os Low Na Diet Fluid Restrict 1.5L (2) IDDM (insulin dependent diabetes mellitus) Status: Chronic Assessment & Plan: Blood sugars very elevated overnight, DC steroids Concerning for DKA (new acidosis on BMP this AM) but given fluid overloaded and already apparent respiratory compromise will hold IVF for now Started on insulin gtt 3 days ago now transitioned to SQ home dosing A1c ordered (3) Chronic kidney disease Status: Chronic Assessment & Plan: Near baseline (baseline ~1.8), but up from yesterday If further elevation will need to adjust lasix dosing (4) COPD (chronic obstructive pulmonary disease) Status: Chronic Assessment & Plan: Wheezing on exam as well but rest of exam less consistent with COPD exacerbation MAT Protocol and Duonebs IV steroids low dose due to PO prednisone not as effective for the patient in the past (5) Essential (primary) hypertension Status: Chronic Assessment & Plan: Well controlled, continue home medications (6) Hypothyroidism Status: Chronic Assessment & Plan: Continue home Synthroid Qualifiers: Qualified Codes: E03.9 - Hypothyroidism, unspecified (7) JOSE MANUEL (obstructive sleep apnea) Status: Chronic Assessment & Plan: Wears CPAP, reports will bring in home CPAP to wear tonight (8) Obesity hypoventilation syndrome Status: Chronic (9) CAD (coronary artery disease) Status: Chronic Assessment & Plan: At baseline, continue on Plavix Has allergy to Statin Qualifiers: Qualified Codes: I25.810 - Atherosclerosis of coronary artery bypass graft(s ) without angina pectoris (10) Chronic atrial fibrillation Status: Chronic Assessment & Plan: Rate well controlled Continue Eliquis (11) Prophylactic measure Assessment & Plan: Eliquis for a-fib, no further DVT ppx Low Sodium Diet Saline Lock 12. Toe ulcer Plan: Appreciate Pulmonary and Cardiology management Possible DC next week? Heplock IVF Swingbed eval? Restart IV steroids Dr. Estrella consult for foot wound Small O2 tank to ambulate in the halls End point is unclear at this time due to complex chronic conditions Scribed by Sarah Dowling under the direct supervision of Dr. Hutton. CHAO HUTTON DO Apr 26, 2017 11:48
[2017-04-26 12:00] VITALS: BP 139/70
[2017-04-26] MEDS: UMECLIDINIUM BROMIDE (INCRUSE ELLIPTA) 7'S IH SCH (14:34)
[2017-04-26 16:36] VITALS: BP 171/78
--- NOTE | 2017-04-26 17:45 | Progress Note (SOAP) ---
Subjective Date Seen by Provider: Apr 26, 2017 Time Seen by Provider: 17:40 Subjective/Events-last exam doing ok. no abdominal pain. tolerating diet. still has exertional SOB and cough. Objective Exam Vital Signs Date Time Temp Pulse Resp B/P (MAP) Pulse Ox O2 Delivery O2 Flow Rate FiO2 04/26/17 16:36 96.7 70 19 171/78 96 Room Air 04/26/17 14:34 92 Nasal Cannula 2.00 04/26/17 12:00 98.7 77 22 139/70 92 Room Air 04/26/17 10:44 92 Nasal Cannula 2.00 04/26/17 08:26 97.8 73 22 149/77 94 Room Air 04/26/17 08:20 92 Nasal Cannula 2.00 04/26/17 06:47 90 Room Air 04/26/17 06:47 89 Room Air 04/26/17 04:00 98.7 68 18 153/90 99 NIV CPAP 04/26/17 00:00 99.1 77 19 117/81 93 Room Air 04/25/17 21:23 94 Nasal Cannula 2.50 04/25/17 21:15 93 Nasal Cannula 2.50 04/25/17 21:00 Nasal Cannula 2.00 04/25/17 19:36 98.7 66 18 179/88 95 Nasal Cannula 3.00 I & O 04/27/17 07:00 Intake Total 1276 ml Output Total 3050 ml Balance -1774 ml Capillary Refill : Less Than 3 Seconds General Appearance: No Apparent Distress HEENT: PERRL/EOMI Neck: Full Range of Motion Respiratory: Rales, Rhonci, Wheezing Cardiovascular: Regular Rate, Rhythm Gastrointestinal: normal bowel sounds, non tender, soft Extremity: Normal Capillary Refill Neurologic/Psychiatric: Alert, Oriented x3 Skin: Normal Color Lymphatic: No Adenopathy Results Lab Laboratory Tests 04/25/17 20:29: Glucometer 191H 04/26/17 05:11: White Blood Count 18.8H, Red Blood Count 4.06L, Hemoglobin 11.3L, Hematocrit 35L , Mean Corpuscular Volume 86, Mean Corpuscular Hemoglobin 28, Mean Corpuscular Hemoglobin Concent 33, Red Cell Distribution Width 17.5H, Platelet Count 247, Mean Platelet Volume 10.8H, Neutrophils (%) (Auto) 87H, Lymphocytes (%) (Auto) 7L, Monocytes (%) (Auto) 6, Eosinophils (%) (Auto) 0, Basophils (%) (Auto) 0, Neutrophils # (Auto) 16.4H, Lymphocytes # (Auto) 1.3, Monocytes # (Auto) 1.2H, Eosinophils # (Auto) 0.0, Basophils # (Auto) 0.0, Sodium Level 138, Potassium Level 3.5L, Chloride Level 102, Carbon Dioxide Level 25, Anion Gap 11, Blood Urea Nitrogen 36H, Creatinine 1.33H, Estimat Glomerular Filtration Rate 54, BUN/ Creatinine Ratio 27, Glucose Level 101, Calcium Level 8.9 04/26/17 05:36: Glucometer 125H 04/26/17 11:29: Glucometer 198H 04/26/17 16:32: Glucometer 174H Microbiology 04/24/17 Blood Culture - Preliminary, Resulted No growth Assessment/Plan Assessment/Plan Assess & Plan/Chief Complaint exacerbation COPD, pneumonia, asymptomatic chronic acalculous cholecystitis. increase ambulation and exercise ability. low fat diet. ok for home per PMD Clinical Quality Measures DVT/VTE Risk/Contraindication: Risk Factor Score Per Nursin RFS Level Per Nursing on Admit: 4+=Very High HAWK GREENWOOD MD Apr 26, 2017 5:45 pm
[2017-04-26 20:00] VITALS: BP 168/80
[2017-04-26] MEDS: MONTELUKAST 10 MG (SINGULAIR) TAB PO SCH (21:26)
[2017-04-26] MEDS: ROSUVASTATIN 5 MG (CRESTOR) TABLET PO SCH (21:26)
[2017-04-26] MEDS: inSUlin DETERMIR 1 UNIT/0.01 ML (LEVEMIR) CHARGE PER UNIT SQ SCH (21:27)
--- NOTE | 2017-04-26 23:32 | Wound Care Progress Note ---
Subjective Subjective Subjective/Events-last exam 66 year old male known to me from previous diabetic foot ulcer, now with dark callus overlying area of previous ulceration at the base of the R 3rd toe. Will plan to remove callus tomorrow. PMH: DM, CAD, COPD Review of Systems Date Seen by Provider: Apr 26, 2017 Time Seen by Provider: 17:30 General: No Chills Pulmonary: Dyspnea (Mild) Cardiovascular: No: Chest Pain Objective Exam Last Set of Vital Signs Vital Signs Date Time Temp Pulse Resp B/P (MAP) Pulse Ox O2 Delivery O2 Flow Rate FiO2 04/26/17 19:48 93 Nasal Cannula 3.00 04/26/17 16:36 96.7 70 19 171/78 Capillary Refill : Less Than 3 Seconds I&O Intake and Output 04/27/17 00:00 Intake Total 1698 ml Output Total 3750 ml Balance -2052 ml Intake Oral 1698 ml Output Urine Total 3750 ml General: Alert, No Acute Distress Lungs: Normal Air Movement Skin: Other (Base of R 3rd toe --- 0.8 x 1.2 x 0.1 cm, 100% eschar.) Results Lab Laboratory Tests 04/26/17 05:11: White Blood Count 18.8H, Red Blood Count 4.06L, Hemoglobin 11.3L, Hematocrit 35L , Mean Corpuscular Volume 86, Mean Corpuscular Hemoglobin 28, Mean Corpuscular Hemoglobin Concent 33, Red Cell Distribution Width 17.5H, Platelet Count 247, Mean Platelet Volume 10.8H, Neutrophils (%) (Auto) 87H, Lymphocytes (%) (Auto) 7L, Monocytes (%) (Auto) 6, Eosinophils (%) (Auto) 0, Basophils (%) (Auto) 0, Neutrophils # (Auto) 16.4H, Lymphocytes # (Auto) 1.3, Monocytes # (Auto) 1.2H, Eosinophils # (Auto) 0.0, Basophils # (Auto) 0.0, Sodium Level 138, Potassium Level 3.5L, Chloride Level 102, Carbon Dioxide Level 25, Anion Gap 11, Blood Urea Nitrogen 36H, Creatinine 1.33H, Estimat Glomerular Filtration Rate 54, BUN/ Creatinine Ratio 27, Glucose Level 101, Calcium Level 8.9 04/26/17 05:36: Glucometer 125H 04/26/17 11:29: Glucometer 198H 04/26/17 16:32: Glucometer 174H 04/26/17 21:04: Glucometer 282H Microbiology 04/24/17 Blood Culture - Preliminary, Resulted No growth Assessment/Plan Assessment/Plan Assessment/Plan 1. Diabetic foot ulcer, R 3rd toe, appears superficial. 2. Diabetic neuropathy. 3. COPD, with exacerbation. Plan: Will debride to make sure there is no underlying ulcer. MATI ZIMMERMAN MD Apr 26, 2017 23:32
[2017-04-27] VITALS: BP 145/84
[2017-04-27 04:00] VITALS: BP 162/89
[2017-04-27 05:36] LABS: BASOPHILS % (AUTO) 0 % (0-10); EOSINOPHILS % (AUTO) 0 % (0-10); LYMPHOCYTES # (AUTO) 1.3 X 10^3 (1.0-4.0); LYMPHOCYTES % (AUTO) 6 % (12-44); MEAN CORPUSCULAR HEMOGLOBIN 28 PG (25-34); MEAN CORPUSCULAR HGB CONC 33 G/DL (32-36); MEAN CORPUSCULAR VOLUME 84 FL (80-99); MEAN PLATELET VOLUME 10.5 FL (7.4-10.4); MONOCYTES # (AUTO) 1.6 X 10^3 (0.0-1.0); MONOCYTES % (AUTO) 7 % (0-12); NEUTROPHILS # (AUTO) 19.2 X 10^3 (1.8-7.8); NEUTROPHILS % (AUTO) 87 % (42-75); PLATELET COUNT 248 10^3/uL (130-400); RED BLOOD COUNT 4.15 10^6/uL (4.35-5.85); RED CELL DISTRIBUTION WIDTH 17.3 % (10.0-14.5); WHITE BLOOD COUNT 22.1 10^3/uL (4.3-11.0)
[2017-04-27 05:56] LABS: CREATININE SERUM 1.23 MG/DL (0.60-1.30); MAGNESIUM 2.5 MG/DL (1.8-2.4); POTASSIUM 3.1 MMOL/L (3.6-5.0)
[2017-04-27] MEDS: inSUlin ASPART (NovoLOG) 1 UNIT/0.01 ML (CHARGE PER UNIT) SC SCH ×4 (06:05→11:49)
[2017-04-27] MEDS: LEVOTHYROXINE 25 MCG (LEVOTHROID) TAB PO SCH (06:05)
[2017-04-27] MEDS: PANTOPRAZOLE 40 MG (PROTONIX) TAB PO SCH (06:05)
[2017-04-27 08:00] VITALS: BP 124/64
[2017-04-27] MEDS: meTOproloL SUCCINATE 50 MG (TOPROL XL) TAB PO SCH (08:25)
[2017-04-27] MEDS: FUROSEMIDE 40 MG (LASIX) TAB PO SCH (08:25)
[2017-04-27] MEDS: APIXABAN 5 MG (ELIQUIS) TABLET PO SCH (08:25)
[2017-04-27] MEDS: METOLAZONE 5 MG (ZAROXOLYN) TAB PO SCH (08:25)
[2017-04-27] MEDS: CLOPIDOGREL 75 MG (PLAVIX) TABLET PO SCH (08:25)
[2017-04-27] MEDS: DILTIAZEM 240 MG (CARDIZEM CD) CAP PO SCH (08:25)
[2017-04-27] MEDS: SPIRONOLACTONE 25 MG (ALDACTONE) TAB PO SCH (08:25)
[2017-04-27] MEDS: KCL 10 MEQ TAB (MICRO K) PO SCH (08:25)
[2017-04-27] MEDS: methylPREDNISolone 40 MG/ML (Solu-MEDROL) VIAL IV SCH (08:25)
[2017-04-27] MEDS: RT-ADVAIR HFA 115/21 MCG PER PUFF IH SCH (09:11)
[2017-04-27] MEDS: RT-ALBUTEROL SULF 2.5 MG/3 ML PRE-MIX VIAL IH SCH ×2 (09:11→11:45)
[2017-04-27] MEDS: UMECLIDINIUM BROMIDE (INCRUSE ELLIPTA) 7'S IH SCH (09:11)
--- NOTE | 2017-04-27 09:46 | Pulmonary Progress Note ---
Subjective Time Seen by Provider: 09:46 Subjective/Events-last exam NO complications noted.. Exam Exam Vital Signs Date Time Temp Pulse Resp B/P (MAP) Pulse Ox O2 Delivery O2 Flow Rate FiO2 04/27/17 09:11 93 Nasal Cannula 3.00 04/27/17 04:00 97.8 87 20 162/89 95 NIV CPAP 04/27/17 00:00 98.7 78 24 145/84 94 NIV CPAP 04/26/17 21:00 92 Nasal Cannula 2.00 04/26/17 20:00 97.0 64 28 168/80 92 Room Air 04/26/17 19:48 93 Nasal Cannula 3.00 04/26/17 16:36 96.7 70 19 171/78 96 Room Air 04/26/17 14:34 92 Nasal Cannula 2.00 04/26/17 12:00 98.7 77 22 139/70 92 Room Air 04/26/17 10:44 92 Nasal Cannula 2.00 General Appearance: No Apparent Distress, WD/WN HEENT: PERRL/EOMI, No Scleral Icterus (L), No Scleral Icterus (R) Neck: Non Tender, Supple, JVD Respiratory: Decreased Breath Sounds (bilateral bases, no crackles/wheezes-- improved) Cardiovascular: Regular Rate, Rhythm, No Murmur Capillary Refill: Less Than 3 Seconds Gastrointestinal: non tender, soft Extremity: No Calf Tenderness, Swelling (3-4+ pitting edema bilaterally to knees) Neurologic/Psychiatric: Alert, Oriented x3 Skin: Normal Color, Warm/Dry, Other (venous stasis dermatitis noted bilaterally ) Lymphatic: No Adenopathy Results Lab Laboratory Tests 04/26/17 05:11 04/27/17 05:24 Assessment/Plan Assessment/Plan COPD/asthmaAE - No signs of PNA -oxygen, SVNS -CT of chest reviewed Leukocytosis probably secondary to steroids -Cabrera culture - hold off on Abx for now CHF diastolic EF 50-55% -Lasix, monitor JOSE MANUEL -Pt is compliant with CPAP and uses 3 liters of oxygen with it. CKD -monitor IDDM Chronic Afib - controlled PT is ok from pulmonary standpoint for d/c with steroid taper. I will have him f /u with me 232 Clinical Quality Measures DVT/VTE Risk/Contraindication: Risk Factor Score Per Nursin RFS Level Per Nursing on Admit: 4+=Very High RAIMUNDO MATTHEWS DO Apr 27, 2017 09:46
[2017-04-27] MEDS ORDERED: PRED10TA22 PO (10:52)
[2017-04-27] MEDS ORDERED: PANT40TA3 PO (10:52)
--- NOTE | 2017-04-27 10:53 | Discharge Summary-Hospitalist ---
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 Dr. Estrella will be consulted Patient Interview: Bloodwork and CXR discussed Pt asked about weaning off O2. Pt was informed that he needs to stay on O2 to support his lungs Pt denies having BMs Pt confirms eating and drinking Physical exam stable. Lungs still wheezing Pt was informed that he will need to stay at [facility] due to his lung function for a few more days and the pt was not very happy with this. Pt would like a small O2 tank so he could be more mobile in the halls. Pt states he called [facility] and had it set up for DC, but pt would like it for the rest of his stay as well AFVSS, Pleasant, O x 3, sitting in chair, unchanged essentially irr Irr, CTAB diminished in bases w/wheezing Noted trace edema Assessment: (1) Congestive heart failure with preserved LV function, NYHA class 3 Status: Acute Assessment & Plan: Acutely decompensated heart failure CXR consistent with vascular congestion Review of old echos shows essentially preserved EF Continue to diurese with IV lasix Monitor I/Os Low Na Diet Fluid Restrict 1.5L (2) IDDM (insulin dependent diabetes mellitus) Status: Chronic Assessment & Plan: Blood sugars very elevated overnight, DC steroids Concerning for DKA (new acidosis on BMP this AM) but given fluid overloaded and already apparent respiratory compromise will hold IVF for now Started on insulin gtt 3 days ago now transitioned to SQ home dosing A1c ordered (3) Chronic kidney disease Status: Chronic Assessment & Plan: Near baseline (baseline ~1.8), but up from yesterday If further elevation will need to adjust lasix dosing (4) COPD (chronic obstructive pulmonary disease) Status: Chronic Assessment & Plan: Wheezing on exam as well but rest of exam less consistent with COPD exacerbation MAT Protocol and Duonebs IV steroids low dose due to PO prednisone not as effective for the patient in the past (5) Essential (primary) hypertension Status: Chronic Assessment & Plan: Well controlled, continue home medications (6) Hypothyroidism Status: Chronic Assessment & Plan: Continue home Synthroid Qualifiers: Qualified Codes: E03.9 - Hypothyroidism, unspecified (7) JOSE MANUEL (obstructive sleep apnea) Status: Chronic Assessment & Plan: Wears CPAP, reports will bring in home CPAP to wear tonight (8) Obesity hypoventilation syndrome Status: Chronic (9) CAD (coronary artery disease) Status: Chronic Assessment & Plan: At baseline, continue on Plavix Has allergy to Statin Qualifiers: Qualified Codes: I25.810 - Atherosclerosis of coronary artery bypass graft(s ) without angina pectoris (10) Chronic atrial fibrillation Status: Chronic Assessment & Plan: Rate well controlled Continue Eliquis (11) Prophylactic measure Assessment & Plan: Eliquis for a-fib, no further DVT ppx Low Sodium Diet Saline Lock 12. Toe ulcer Plan: Appreciate Pulmonary and Cardiology management Possible DC next week? Heplock IVF Swingbed eval? Restart IV steroids Dr. Estrella consult for foot wound Small O2 tank to ambulate in the halls End point is unclear at this time due to complex chronic conditions Scribed by Sarah Dowling under the direct supervision of Dr. Pat. Notes from 04/27/17 SW Review: Pt is adamant about not wanting to stay here. Pt knows he is not breathing well , but he does not believe he can afford to stay Pt's weight looks like it is down Pt was not moving Patient Interview: Pt looks good but confirms that he is still experiencing congestion Home O2, 2L, discussed and pt was advised to use it when he is up and around, even if he is not technically exerting himself. Pt confirms wearing O2 at night Pt confirms having BMs, but denies having one last night Physical exam stable. Lungs sound good Pt confirms pharmacy as [facility] Pt discussed his insurance and his dislike for it. Steroids discussed and pt agreed to start on 3 pills. Pt states he cannot sleep if he is on 4-5 tablets. Plan: Follow up with me in clinic 04/30/17, [address] Chelo DANG on steroids 2L home O2 on exertion Scribed by Sarah Dowling under the direct supervision of Dr. Pat. (1) Congestive heart failure with preserved LV function, NYHA class 3 Status: Acute Assessment & Plan: Acutely decompensated heart failure CXR consistent with vascular congestion Review of old echos shows essentially preserved EF Continue to diurese with IV lasix Monitor I/Os Low Na Diet Fluid Restrict 1.5L (2) IDDM (insulin dependent diabetes mellitus) Status: Chronic Assessment & Plan: Blood sugars very elevated overnight, DC steroids Concerning for DKA (new acidosis on BMP this AM) but given fluid overloaded and already apparent respiratory compromise will hold IVF for now Started on insulin gtt A1c ordered Repeat BMP ordered for now (3) Chronic kidney disease Status: Chronic Assessment & Plan: Near baseline (baseline ~1.8), but up from yesterday If further elevation tomorrow will need to adjust lasix dosing (4) COPD (chronic obstructive pulmonary disease) Status: Chronic Assessment & Plan: Wheezing on exam as well but rest of exam less consistent with COPD exacerbation MAT Protocol and Duonebs Will hold further steroids (5) Essential (primary) hypertension Status: Chronic Assessment & Plan: Well controlled, continue home medications (6) Hypothyroidism Status: Chronic Assessment & Plan: Continue home Synthroid (7) JOSE MANUEL (obstructive sleep apnea) Status: Chronic Assessment & Plan: Wears CPAP, reports will bring in home CPAP to wear tonight (8) Obesity hypoventilation syndrome Status: Chronic (9) CAD (coronary artery disease) Status: Chronic Assessment & Plan: At baseline, continue on Plavix Has allergy to Statin (10) Chronic atrial fibrillation Status: Chronic Assessment & Plan: Rate well controlled Continue Eliquis (11) Prophylactic measure Assessment & Plan: Eliquis for a-fib, no further DVT ppx Low Sodium Diet Saline Lock Discharge Summary Discharge Physical Examination Allergies: Coded Allergies: Cokuhiu-Ahi-Gvf Reductase Inhibitor (Verified Allergy, Unknown, 11/27/15) codeine (Verified Allergy, Unknown, 11/27/15) fish oil (Verified Allergy, Unknown, 11/27/15) Vitals & I&Os Vital Signs Date Time Temp Pulse Resp B/P (MAP) Pulse Ox O2 Delivery O2 Flow Rate FiO2 04/27/17 09:25 3 92.00 04/27/17 09:11 Nasal Cannula 04/27/17 08:00 97.5 50 20 124/64 Hospital Course Hospital course: Patient had a lengthy hospital course which began in the ICU due to severe shortness of breath due to exacerbation of COPD and volume overload. He is placed on steroids along with other medication and ultimately became severely hyperglycemic and required insulin drip with good results. Overall patient progressed slowly and diuresis well require 2 L of oxygen on exertion and those orders were placed and overall such significant comorbidities all were deemed stable for discharge and he was ready and in agreement for planned with close follow-up. Prednisone taper dose will be continued and home insulin dose maintained and will return if worsens but overall prognosis guarded considering the severity of his COPD. Labs (last 24 hrs) Laboratory Tests 04/26/17 11:29: Glucometer 198H 04/26/17 16:32: Glucometer 174H 04/26/17 21:04: Glucometer 282H 04/27/17 05:22: Glucometer 110 04/27/17 05:24: White Blood Count 22.1H, Red Blood Count 4.15L, Hemoglobin 11.4L, Hematocrit 35L , Mean Corpuscular Volume 84, Mean Corpuscular Hemoglobin 28, Mean Corpuscular Hemoglobin Concent 33, Red Cell Distribution Width 17.3H, Platelet Count 248, Mean Platelet Volume 10.5H, Neutrophils (%) (Auto) 87H, Lymphocytes (%) (Auto) 6L, Monocytes (%) (Auto) 7, Eosinophils (%) (Auto) 0, Basophils (%) (Auto) 0, Neutrophils # (Auto) 19.2H, Lymphocytes # (Auto) 1.3, Monocytes # (Auto) 1.6H, Eosinophils # (Auto) 0.0, Basophils # (Auto) 0.0, Sodium Level 136, Potassium Level 3.1L, Chloride Level 96L, Carbon Dioxide Level 26, Anion Gap 14, Blood Urea Nitrogen 34H, Creatinine 1.23, Estimat Glomerular Filtration Rate 59, BUN/ Creatinine Ratio 28, Glucose Level 96, Calcium Level 9.0, Magnesium Level 2.5H Microbiology 04/24/17 Blood Culture - Preliminary, Resulted No growth Pending Labs Laboratory Tests 04/27/17 05:22: Glucometer 110 04/27/17 05:24: White Blood Count 22.1, Red Blood Count 4.15, Hemoglobin 11.4, Hematocrit 35, Mean Corpuscular Volume 84, Mean Corpuscular Hemoglobin 28, Mean Corpuscular Hemoglobin Concent 33, Red Cell Distribution Width 17.3, Platelet Count 248, Mean Platelet Volume 10.5, Neutrophils (%) (Auto) 87, Lymphocytes (%) (Auto) 6, Monocytes (%) (Auto) 7, Eosinophils (%) (Auto) 0, Basophils (%) (Auto) 0, Neutrophils # (Auto) 19.2, Lymphocytes # (Auto) 1.3, Monocytes # (Auto) 1.6, Eosinophils # (Auto) 0.0, Basophils # (Auto) 0.0, Sodium Level 136, Potassium Level 3.1, Chloride Level 96, Carbon Dioxide Level 26, Anion Gap 14, Blood Urea Nitrogen 34, Creatinine 1.23, Estimat Glomerular Filtration Rate 59, BUN/ Creatinine Ratio 28, Glucose Level 96, Calcium Level 9.0, Magnesium Level 2.5 Discharge Home Medications: Active Scripts Active Prednisone 10 Mg Tab.ds.pk 10 Mg PO DAILY Take 3 pills once daily for 2 days then 2 pills once daily for 2 days then 1 pill daily for 5 days Pantoprazole Sodium 40 Mg Tablet.dr 40 Mg PO DAILY@0700 Reported Metolazone 5 Mg Tablet 5 Mg PO DAILY Furosemide 40 Mg Tablet 40 Mg PO DAILY Spironolactone 25 Mg Tablet 25 Mg PO DAILY Meloxicam 15 Mg Tablet 15 Mg PO DAILY Humalog Kwikpen (Insulin Lispro) 100 Unit/1 Ml Insuln.pen 20 Units SQ QID Ondansetron Odt (Ondansetron) 8 Mg Tab.rapdis 8 Mg PO Q4H PRN Sulfamethoxazole-Tmp Ss Tablet (Sulfamethoxazole/Trimethoprim) 1 Each Tablet 0.5 Mg PO HS Potassium Chloride 10 Meq Tablet.er 10 Meq PO BID Tamsulosin HCl 0.4 Mg Cap.er.24h 0.4 Mg PO DAILY Montelukast Sodium 10 Mg Tablet 10 Mg PO HS Eliquis (Apixaban) 5 Mg Tablet 5 Mg PO BID Rosuvastatin Calcium 5 Mg Tablet 5 Mg PO DAILY Dilt-Xr (Diltiazem HCl) 240 Mg Cap.er.deg 240 Mg PO DAILY Advair 500-50 Diskus (Fluticasone/Salmeterol) 1 Each Blst.w.dev 1 Puff IH BID Clopidogrel (Clopidogrel Bisulfate) 75 Mg Tablet 75 Mg PO DAILY Metoprolol Succinate 50 Mg Tab.er.24h 50 Mg PO DAILY Lantus Solostar (Insulin Glargine,Hum.rec.anlog) 100 Unit/1 Ml Insuln.pen 20 Units SQ HS Hydrocodon-Acetaminoph 7.5-325 (Hydrocodone/Acetaminophen) 1 Each Tablet 1 Tab PO Q6H PRN Ventolin Hfa (Albuterol Sulfate) 18 Gm Hfa.aer.ad 1 Puff IH Q4H PRN Albuterol Sulfate 2.5 Mg/3 Ml Vial.neb 2.5 Mg NEB QID Levothyroxine Sodium 25 Mcg Tablet 25 Mcg PO DAILY Zyrtec-D Tablet (Cetirizine HCl/Pseudoephedrine) 1 Each Tab.er.12h 1 Tab PO DAILY Spiriva Respimat 2.5MCG/ACTUATION (Tiotropium [place]) 4 Gm Mist.inhal 1 Puff IH DAILY Instructions to patient/family Please see electronic discharge instructions given to patient. Clinical Quality Measures DVT/VTE Risk/Contraindication: Risk Factor Score Per Nursin RFS Level Per Nursing on Admit: 4+=Very High Problem Qualifiers (1) Hypothyroidism: Hypothyroidism type: unspecified Qualified Codes: E03.9 - Hypothyroidism, unspecified (2) CAD (coronary artery disease): Coronary Disease-Associated Artery/Lesion type: bypass graft, autologous artery Associated angina: without angina Qualified Codes: I25.810 - Atherosclerosis of coronary artery bypass graft(s) without angina pectoris CHAO PAT DO Apr 27, 2017 10:53
--- NOTE | 2017-04-27 18:52 | Wound Care Progress Note ---
Subjective Subjective Subjective/Events-last exam Seen today for debridement of R foot ulcer. No new complaints. Plans to go home later today. PMH: DM, COPD, CAD. Review of Systems Date Seen by Provider: Apr 27, 2017 Time Seen by Provider: 11:15 General: No Chills Pulmonary: No Dyspnea Cardiovascular: No: Chest Pain Objective Exam Last Set of Vital Signs Vital Signs Date Time Temp Pulse Resp B/P (MAP) Pulse Ox O2 Delivery O2 Flow Rate FiO2 04/27/17 13:30 04/27/17 11:45 92 Nasal Cannula 3.00 04/27/17 08:00 97.5 50 20 Capillary Refill : Less Than 3 Seconds I&O Intake and Output 04/28/17 00:00 Intake Total 150 ml Balance 150 ml Intake Oral 150 ml # Voids 2 General: Alert, No Acute Distress Lungs: Normal Air Movement Skin: Other (R 3rd toe, base --- 0.6 x 1.1 x 0.1 cm, 100% eschar, no drainage.) Results Lab Laboratory Tests 04/26/17 21:04: Glucometer 282H 04/27/17 05:22: Glucometer 110 04/27/17 05:24: White Blood Count 22.1H, Red Blood Count 4.15L, Hemoglobin 11.4L, Hematocrit 35L , Mean Corpuscular Volume 84, Mean Corpuscular Hemoglobin 28, Mean Corpuscular Hemoglobin Concent 33, Red Cell Distribution Width 17.3H, Platelet Count 248, Mean Platelet Volume 10.5H, Neutrophils (%) (Auto) 87H, Lymphocytes (%) (Auto) 6L, Monocytes (%) (Auto) 7, Eosinophils (%) (Auto) 0, Basophils (%) (Auto) 0, Neutrophils # (Auto) 19.2H, Lymphocytes # (Auto) 1.3, Monocytes # (Auto) 1.6H, Eosinophils # (Auto) 0.0, Basophils # (Auto) 0.0, Sodium Level 136, Potassium Level 3.1L, Chloride Level 96L, Carbon Dioxide Level 26, Anion Gap 14, Blood Urea Nitrogen 34H, Creatinine 1.23, Estimat Glomerular Filtration Rate 59, BUN/ Creatinine Ratio 28, Glucose Level 96, Calcium Level 9.0, Magnesium Level 2.5H 04/27/17 11:24: Glucometer 169H Microbiology 04/24/17 Blood Culture - Preliminary, Resulted No growth Procedures Procedures Following appropriate consent and time out procedure, under on topical anesthesia, excisional debridement was performed using a #15 scalpel, removing Skin, callus, eschar, slough, and subcutaneous tissue. The deepest tissue removed was subcutaneous tissue. The patient tolerated the procedure well, with no procedural or post-procedural pain. Minimal bleeding was controlled with pressure. Assessment/Plan Assessment/Plan Assessment/Plan 1. Diabetic R 3rd toe ulcer, Grade 2. 2. COPD. Plan: Dressings ordered. Will follow in Wound Clinic. MATI ZIMMERMAN MD Apr 27, 2017 18:52
[2017-04-28] MEDS ORDERED: predniSONE 10 MG TAB PO SCH (09:00)
== END 2017-04-27 13:30 | disposition home or self-care (01) | DRG 264 ==
LOC: EDUNIT# 14:11 → ER 14:12 → ICU 16:20 → 4TH 04-25 11:17
PROVIDERS: ADMIT Family Medicine; ATTEND Internal Medicine
PROC: 0JBQ0ZZ Excision of Right Foot Subcutaneous Tissue and Fascia, Open Approach (ICD-10-PCS; principal; 2017-04-27)
DX: I50.33 Acute on chronic diastolic (congestive) heart failure (principal); E66.2 Morbid (severe) obesity with alveolar hypoventilation; Z68.43 Body mass index [BMI] 50.0-59.9, adult; J44.1 Chronic obstructive pulmonary disease with (acute) exacerbation; L97.511 Non-pressure chronic ulcer of other part of right foot limited to breakdown of skin; J45.901 Unspecified asthma with (acute) exacerbation; I12.9 Hypertensive chronic kidney disease with stage 1 through stage 4 chronic kidney disease, or unspecified chronic kidney disease; E03.9 Hypothyroidism, unspecified; L84 Corns and callosities; E11.621 Type 2 diabetes mellitus with foot ulcer; N18.3 Chronic kidney disease, stage 3 (moderate); I25.10 Atherosclerotic heart disease of native coronary artery without angina pectoris; E11.21 Type 2 diabetes mellitus with diabetic nephropathy; I48.2 Chronic atrial fibrillation; F41.9 Anxiety disorder, unspecified; K81.1 Chronic cholecystitis; I25.2 Old myocardial infarction; T38.0X5A Adverse effect of glucocorticoids and synthetic analogues, initial encounter; Z79.4 Long term (current) use of insulin; Z95.1 Presence of aortocoronary bypass graft; Z95.5 Presence of coronary angioplasty implant and graft; Z87.891 Personal history of nicotine dependence; Z79.01 Long term (current) use of anticoagulants; D72.829 Elevated white blood cell count, unspecified
CPT/HCPCS: 36415; 71010; 71250; 76705; 80048; 80053; 81000; 82550; 82553; 82962; 83036; 83605; 83735; 83880; 84100; 84484; 85007; 85025; 85027; 85610; 85730; 87040; 93005; 93041; 93306; 94640; 94760; 94761; 96374; 96375

== ENCOUNTER → 2017-05-02 | Outpatient (CLI) | payer OTHER, MEDICARE ==
[~2017-05-02] MED LIST changes: +INSU100I23 SQ; +ONDA8TAB13 PO; +PANT40TA3 PO; +POTA10TA10 PO; +PRED10TA22 PO; +SULF-11 PO
== END ==
LOC: WOUNDCARE 08:25
PROVIDERS: ATTEND Surgery
DX: E11.621 Type 2 diabetes mellitus with foot ulcer (principal); L97.511 Non-pressure chronic ulcer of other part of right foot limited to breakdown of skin; I70.235 Atherosclerosis of native arteries of right leg with ulceration of other part of foot; E11.42 Type 2 diabetes mellitus with diabetic polyneuropathy; E11.65 Type 2 diabetes mellitus with hyperglycemia; I89.0 Lymphedema, not elsewhere classified; J44.9 Chronic obstructive pulmonary disease, unspecified; E66.01 Morbid (severe) obesity due to excess calories; Z68.43 Body mass index [BMI] 50.0-59.9, adult
CPT/HCPCS: 97597

== ENCOUNTER → 2017-05-07 | Outpatient (CLI) | payer OTHER, MEDICARE ==
[~2017-05-07] MED LIST changes: +METO-272 PO; -METO-370 PO
== END ==
LOC: WOUNDCARE 09:25
PROVIDERS: ATTEND Surgery
DX: E11.621 Type 2 diabetes mellitus with foot ulcer (principal); E11.42 Type 2 diabetes mellitus with diabetic polyneuropathy; E11.65 Type 2 diabetes mellitus with hyperglycemia; L97.511 Non-pressure chronic ulcer of other part of right foot limited to breakdown of skin; I70.235 Atherosclerosis of native arteries of right leg with ulceration of other part of foot; I89.0 Lymphedema, not elsewhere classified; J44.9 Chronic obstructive pulmonary disease, unspecified; E66.01 Morbid (severe) obesity due to excess calories; Z68.43 Body mass index [BMI] 50.0-59.9, adult
CPT/HCPCS: 99212

== ENCOUNTER 2017-05-21 12:02 | Emergency (ER) | payer OTHER, MEDICARE ==
[~2017-05-21] VITALS: Ht 175.3 cm; Wt 161.3 kg
[2017-05-21 13:13] LABS: BILIRUBIN,URINE NEGATIVE (NEGATIVE); KETONES,URINE 1+ (NEGATIVE); LEUKOCYTE ESTERASE ,URINE 3+ (NEGATIVE); NITRITE,URINE NEGATIVE (NEGATIVE); PH,URINE 5 (5-9); PROTEIN,URINE 3+ (NEGATIVE); UROBILINOGEN,URINE 1 MG/DL (NORMAL)
[2017-05-21 13:28] LABS: WBC,URINE TNTC /HPF
--- NOTE | 2017-05-21 13:57 | ED GU-Male ---
General Chief Complaint: -Male Stated Complaint: UTI Nursing Triage Note: C/o burning and difficulty urinating since last night- freq issue Source: patient, old records Exam Limitations: no limitations Allergies and Home Medications Allergies Coded Allergies: Lyoovxv-Gdt-Bjo Reductase Inhibitor (Verified Allergy, Unknown, 11/27/15) codeine (Verified Allergy, Unknown, 11/27/15) fish oil (Verified Allergy, Unknown, 11/27/15) Home Medications Albuterol Sulfate 2.5 Mg/3 Ml Vial.neb, 2.5 MG NEB QID, (Reported) Albuterol Sulfate 18 Gm Hfa.aer.ad, 1 PUFF IH Q4H PRN for SHORTNESS OF BREATH, ( Reported) Apixaban 5 Mg Tablet, 5 MG PO BID, (Reported) Cetirizine HCl/Pseudoephedrine 1 Each Tab.er.12h, 1 TAB PO DAILY, (Reported) Clopidogrel Bisulfate 75 Mg Tablet, 75 MG PO DAILY, (Reported) Diltiazem HCl 240 Mg Cap.er.deg, 240 MG PO DAILY, (Reported) Fluticasone/Salmeterol 1 Each Blst.w.dev, 1 PUFF IH BID, (Reported) Furosemide 40 Mg Tablet, 40 MG PO DAILY, (Reported) Hydrocodone/Acetaminophen 1 Each Tablet, 1 TAB PO Q6H PRN for PAIN-MODERATE, ( Reported) Insulin Glargine,Hum.rec.anlog 100 Unit/1 Ml Insuln.pen, 20 UNITS SQ HS, ( Reported) Insulin Lispro 100 Unit/1 Ml Insuln.pen, 20 UNITS SQ QID, (Reported) Levothyroxine Sodium 25 Mcg Tablet, 25 MCG PO DAILY, (Reported) Meloxicam 15 Mg Tablet, 15 MG PO DAILY, (Reported) Metolazone 5 Mg Tablet, 5 MG PO DAILY, (Reported) Metoprolol Succinate 50 Mg Tab.er.24h, 50 MG PO DAILY, (Reported) Montelukast Sodium 10 Mg Tablet, 10 MG PO HS, (Reported) Ondansetron 8 Mg Tab.rapdis, 8 MG PO Q4H PRN for NAUSEA/VOMITING-1ST LINE, ( Reported) Pantoprazole Sodium 40 Mg Tablet.dr, 40 MG PO DAILY@0700, #30 Prescribed by: CHAO PAT on 04/27/17 1052 Potassium Chloride 10 Meq Tablet.er, 10 MEQ PO BID, (Reported) Prednisone 10 Mg Tab.ds.pk, 10 MG PO DAILY, #15 Take 3 pills once daily for 2 days then 2 pills once daily for 2 days then 1 pill daily for 5 days Prescribed by: CHAO PAT on 04/27/17 1052 Rosuvastatin Calcium 5 Mg Tablet, 5 MG PO DAILY, (Reported) Spironolactone 25 Mg Tablet, 25 MG PO DAILY, (Reported) Sulfamethoxazole/Trimethoprim 1 Each Tablet, 0.5 MG PO HS, (Reported) Tamsulosin HCl 0.4 Mg Cap.er.24h, 0.4 MG PO DAILY, (Reported) Tiotropium Willis 4 Gm Mist.inhal, 1 PUFF IH DAILY, (Reported) Past Huigkqj-Aimwvn-Pjqxtg Hx Patient Social History Alcohol Use: Denies Use Number of Drinks Today: GG Alcohol Beverage of Choice: Whiskey Recreational Drug Use: No Type Used: Cigarettes Former Smoker, Quit: Aug 13, 1996 Recent Foreign Travel: No Contact w/Someone Who Travel: No Recent Infectious Disease Expo: No Recent Hopitalizations: No Physical Abuse: No Sexual Abuse: No Mistreated: No Fear: No Immunizations Up To Date Tetanus Booster (TDap): Less than 5yrs PED Vaccines UTD: Yes Date of Pneumonia Vaccine: Jan 11, 2017 Date of Influenza Vaccine: May 13, 2016 Seasonal Allergies Seasonal Allergies: Yes Surgeries History of Surgeries: Yes Surgeries: Adenoidectomy, Cardiac, CABG, Coronary Stent, Tonsillectomy, Transurethral Resection, Vasectomy Respiratory History of Respiratory Disorde: Yes Respiratory Disorders: Asthma, Sleep Apnea, COPD Currently Using CPAP: Yes Cardiovascular History of Cardiac Disorders: Yes Cardiac Disorders: Chronic Edema/Swelling, Coronary Artery Disease, Heart Attack, High Cholesterol, Hypertension Neurological History of Neurological Disord: No Neurological Disorders: Neuropathy Reproductive System Hx Reproductive Disorders: No Genitourinary History of Genitourinary Disor: Yes Genitourinary Disorders: Bladder Infection, UTI-Chronic Gastrointestinal History of Gastrointestinal Di: Yes Gastrointestinal Disorders: Chronic Constipation Musculoskeletal History of Musculoskeletal Dis: Yes Musculoskeletal Disorders: Arthritis, Chronic Back Pain Endocrine History of Endocrine Disorders: Yes Endocrine Disorders: Diabetes, Insulin dep, Hypothyroidsim HEENT History of HEENT Disorders: No Cancer History of Cancer: No Psychosocial History of Psychiatric Problem: No Behavioral Health Disorders: Sleep Difficulties, Anxiety Suicide Risk Score: 0 Integumentary History of Skin or Integumenta: No Skin/Integumentary Disorders: Pruritis Blood Transfusions History of Blood Disorders: No Adverse Reaction to a Blood Tr: No Family Medical History Significant Family History: Asthma, Heart Disease, Hypertension Family Medial History: Cancer 03 FATHER Congestive heart failure 03 MOTHER Family history: Arthritis 03 MOTHER Family history: Asthma 03 MOTHER Family history: Cardiovascular disease 03 MOTHER Family history: Diabetes mellitus 09 BROTHER Family history: Gastrointestinal disease 03 FATHER History of drug abuse 09 BROTHER Physical Exam Vital Signs Vital Sign - Last 12Hours 05/21/17 12:56 Temp 98.4 Pulse 91 Resp 18 B/P (MAP) 125/106 Pulse Ox 98 O2 Delivery Nasal Cannula O2 Flow Rate 2.00 Capillary Refill : Less Than 3 Seconds Laceration Repair : Suture Size: 4-0 Progress/Results/Core Measures Results/Orders Lab Results Laboratory Tests Test 05/21/17 12:57 Range/Units Urine Color BROWN H Urine Clarity SLIGHTLY CLOUDY Urine pH 5 5-9 Urine Specific [place] 1.020 1.016-1.022 Urine Protein 3+ H NEGATIVE Urine Glucose (UA) 2+ H NEGATIVE Urine Ketones 1+ H NEGATIVE Urine Nitrite NEGATIVE NEGATIVE Urine Bilirubin NEGATIVE NEGATIVE Urine Urobilinogen 1 NORMAL MG/DL Urine Leukocyte Esterase 3+ H NEGATIVE Urine RBC (Auto) 2+ H NEGATIVE Urine RBC NONE /HPF Urine WBC TNTC H /HPF Urine Squamous Epithelial Cells 2-5 /HPF Urine Crystals NONE /LPF Urine Bacteria FEW H /HPF Urine Casts NONE /LPF Urine Mucus NEGATIVE /LPF Urine Culture Indicated YES My Orders Orders - MERLE VYAS MD Ua Culture If Indicated (05/21/17 12:31) Urine Culture (05/21/17 12:57) Ceftriaxone Injection (Rocephin Injectio (05/21/17 14:00) Lidocaine 1% Injection (Xylocaine 1% Inj (05/21/17 14:00) Vital Signs/I&O Vital Sign - Last 12Hours 05/21/17 12:56 Temp 98.4 Pulse 91 Resp 18 B/P (MAP) 125/106 Pulse Ox 98 O2 Delivery Nasal Cannula O2 Flow Rate 2.00 Blood Pressure Mean: 112 Departure Impression Impression: Primary Impression: Urinary tract infection Qualified Codes: N39.0 - Urinary tract infection, site not specified Disposition: 01 HOME, SELF-CARE Condition: Improved Departure-Patient Inst. Decision time for Depature: 13:45 Referrals: CHAO PAT DO (PCP/Family) Primary Care Physician Patient Instructions: Urinary Tract Infections in Adults Add. Discharge Instructions: Complete your antibiotic as prescribed. Drink plenty of clear liquids. Follow- up with Dr. Gonzáles late this week. Return to the emergency room or call your doctors if you are having any problems or concerns. All discharge instructions reviewed with patient and/or family. Voiced understanding. Scripts Cefdinir (Cefdinir) 300 Mg Capsule 300 MG PO BID, #14 CAP Prov: MERLE VYAS MD 05/21/17 MRELE VYAS MD May 21, 2017 13:57
[2017-05-21] MEDS ORDERED: CEFD300C3 PO (13:59)
[2017-05-21] MEDS ORDERED: cefTRIAXone 1 GM (ROCEPHIN) VIAL IM ONE (14:00)
[2017-05-21] MEDS ORDERED: LIDOCAINE 1% INJ 20 ML (XYLOCAINE) VIAL INJ ONE (14:00)
[2017-05-21 14:10] VITALS: BP 118/71
== END 2017-05-21 14:09 | disposition home or self-care (01) ==
LOC: EDUNIT# 12:02 → ER 12:04
DX: N39.0 Urinary tract infection, site not specified (principal); F41.9 Anxiety disorder, unspecified; K59.09 Other constipation; E11.40 Type 2 diabetes mellitus with diabetic neuropathy, unspecified; J44.9 Chronic obstructive pulmonary disease, unspecified; G47.30 Sleep apnea, unspecified; E03.9 Hypothyroidism, unspecified; I25.2 Old myocardial infarction; I25.10 Atherosclerotic heart disease of native coronary artery without angina pectoris; I10 Essential (primary) hypertension; Z87.891 Personal history of nicotine dependence; Z90.89 Acquired absence of other organs; Z98.52 Vasectomy status; Z90.79 Acquired absence of other genital organ(s); Z95.1 Presence of aortocoronary bypass graft; Z79.4 Long term (current) use of insulin; Z82.49 Family history of ischemic heart disease and other diseases of the circulatory system
CPT/HCPCS: 81000; 87088; 87186; 99284

== ENCOUNTER 2017-08-30 18:18 | Emergency (ER) | payer MEDICARE, OTHER ==
[~2017-08-30] VITALS: Ht 177.8 cm; Wt 158.8 kg
[~2017-08-30 18:18] MED LIST changes: -METO-272 PO; +METO-370 PO; +ROSU5TAB11 PO; -ROSU5TAB9 PO
--- NOTE | 2017-08-30 19:16 | ED Upper Extremity ---
General Chief Complaint: Upper Extremity Stated Complaint: PT FELL,LT ELBOW SWELLING History of Present Illness Date Seen by Provider: Aug 30, 2017 Time Seen by Provider: 19:15 Initial Comments Pt is a 66 yo male who presents to the ED in his power wheelchair via PV c/o L elbow pain onset yesterday s/p falling forward out of his power chair onto the ground, landing on both elbows. Pt states that he was playing with his grandkids and that is what caused the fall. Pt denies any head injury, loc, syncope, dizziness, vision changes or any other associated sx. Pt is on two blood thinners and states that he does have some L elbow swelling and bruising and scratches on both arms, but otherwise is able to move them both freely. States his made him come in to make sure nothing is bborken. Denies any R arm or elbow pain. Severity: mild Pain/Injury Location: left elbow Method of Injury: fell Modifying Factors: Improves With Movement (RAIN [employer]W MEDICAL STUDENT) Allergies and Home Medications Allergies Coded Allergies: Liroxnq-Zno-Xog Reductase Inhibitor (Verified Allergy, Unknown, 11/27/15) codeine (Verified Allergy, Unknown, 11/27/15) fish oil (Verified Allergy, Unknown, 11/27/15) Home Medications Albuterol Sulfate 2.5 Mg/3 Ml Vial.neb, 2.5 MG NEB QID, (Reported) Albuterol Sulfate 18 Gm Hfa.aer.ad, 1 PUFF IH Q4H PRN for SHORTNESS OF BREATH, ( Reported) Apixaban 5 Mg Tablet, 5 MG PO BID, (Reported) Cefdinir 300 Mg Capsule, 300 MG PO BID, #14 Prescribed by: MERLE BLAKE on 05/21/17 4349 Cetirizine HCl/Pseudoephedrine 1 Each Tab.er.12h, 1 TAB PO DAILY, (Reported) Clopidogrel Bisulfate 75 Mg Tablet, 75 MG PO DAILY, (Reported) Diltiazem HCl 240 Mg Cap.er.deg, 240 MG PO DAILY, (Reported) Fluticasone/Salmeterol 1 Each Blst.w.dev, 1 PUFF IH BID, (Reported) Furosemide 40 Mg Tablet, 40 MG PO DAILY, (Reported) Hydrocodone/Acetaminophen 1 Each Tablet, 1 TAB PO Q6H PRN for PAIN-MODERATE, ( Reported) Insulin Glargine,Hum.rec.anlog 100 Unit/1 Ml Insuln.pen, 20 UNITS SQ HS, ( Reported) Insulin Lispro 100 Unit/1 Ml Insuln.pen, 20 UNITS SQ QID, (Reported) Levothyroxine Sodium 25 Mcg Tablet, 25 MCG PO DAILY, (Reported) Meloxicam 15 Mg Tablet, 15 MG PO DAILY, (Reported) Metolazone 5 Mg Tablet, 5 MG PO DAILY, (Reported) Metoprolol Succinate 50 Mg Tab.er.24h, 50 MG PO DAILY, (Reported) Montelukast Sodium 10 Mg Tablet, 10 MG PO HS, (Reported) Ondansetron 8 Mg Tab.rapdis, 8 MG PO Q4H PRN for NAUSEA/VOMITING-1ST LINE, ( Reported) Pantoprazole Sodium 40 Mg Tablet.dr, 40 MG PO DAILY@0700, #30 Prescribed by: CHAO PAT on 04/27/17 1052 Potassium Chloride 10 Meq Tablet.er, 10 MEQ PO BID, (Reported) Prednisone 10 Mg Tab.ds.pk, 10 MG PO DAILY, #15 Take 3 pills once daily for 2 days then 2 pills once daily for 2 days then 1 pill daily for 5 days Prescribed by: CHAO PAT on 04/27/17 1052 Rosuvastatin Calcium 5 Mg Tablet, 5 MG PO DAILY, (Reported) Spironolactone 25 Mg Tablet, 25 MG PO DAILY, (Reported) Sulfamethoxazole/Trimethoprim 1 Each Tablet, 0.5 MG PO HS, (Reported) Tamsulosin HCl 0.4 Mg Cap.er.24h, 0.4 MG PO DAILY, (Reported) Tiotropium Headrick 4 Gm Mist.inhal, 1 PUFF IH DAILY, (Reported) Constitutional: no symptoms reported, No dizziness, No fever, No weakness EENTM: no symptoms reported, No blurred vision, No double vision, No eye pain, No vision loss Respiratory: no symptoms reported, No cough, No short of breath Cardiovascular: no symptoms reported, No chest pain, No palpitations Gastrointestinal: No abdominal pain, No constipation, No diarrhea, No nausea, No vomiting Musculoskeletal: joint pain (L elbow), joint swelling (L elbow) Skin: No rash, other (bruising and abrasions L elbow and R arm) (RA[employer]W MEDICAL STUDENT) All Other Systems Reviewed Negative Unless Noted: Yes (Negative excepted noted.) (RAIN [employer]W MEDICAL STUDENT) Past Neyekwt-Evcodx-Yrzbmi Hx Patient Social History Alcohol Beverage of Choice: Whiskey Type Used: Cigarettes Former Smoker, Quit: Aug 13, 1996 Recent Foreign Travel: No Contact w/Someone Who Travel: No Recent Hopitalizations: No (RA[employer]W MEDICAL STUDENT) Immunizations Up To Date Tetanus Booster (TDap): Less than 5yrs PED Vaccines UTD: Yes Date of Pneumonia Vaccine: Jan 11, 2017 Date of Influenza Vaccine: May 13, 2016 (RA[employer]W MEDICAL STUDENT) Seasonal Allergies Seasonal Allergies: Yes ([employer]W MED[employer] STUDENT) Surgeries History of Surgeries: Yes Surgeries: Adenoidectomy, Cardiac, CABG, Coronary Stent, Tonsillectomy, Transurethral Resection, Vasectomy ([employer]W MEDICAL STUDENT) Respiratory History of Respiratory Disorde: Yes Respiratory Disorders: Asthma, Sleep Apnea, COPD Currently Using CPAP: Yes ([employer] MED[employer] STUDENT) Cardiovascular History of Cardiac Disorders: Yes Cardiac Disorders: Chronic Edema/Swelling, Coronary Artery Disease, Heart Attack, High Cholesterol, Hypertension ([employer] MED[employer] STUDENT) Neurological History of Neurological Disord: No Neurological Disorders: Neuropathy ([employer] MEDICAL STUDENT) Reproductive System Hx Reproductive Disorders: No ([employer]W MEDICAL STUDENT) Genitourinary History of Genitourinary Disor: Yes Genitourinary Disorders: Bladder Infection, UTI-Chronic ([employer] MEDICAL STUDENT) Gastrointestinal History of Gastrointestinal Di: Yes Gastrointestinal Disorders: Chronic Constipation ([employer] MEDICAL STUDENT) Musculoskeletal History of Musculoskeletal Dis: Yes Musculoskeletal Disorders: Arthritis, Chronic Back Pain (RA[employer]W MEDICAL STUDENT) Endocrine History of Endocrine Disorders: Yes Endocrine Disorders: Diabetes, Insulin dep, Hypothyroidsim ([employer]W MEDICAL STUDENT) HEENT History of HEENT Disorders: No (RA[employer]W MEDICAL STUDENT) Cancer History of Cancer: No (RA[employer]W MEDICAL STUDENT) Psychosocial History of Psychiatric Problem: Yes Behavioral Health Disorders: Sleep Difficulties, Anxiety ([employer]W MEDICAL STUDENT) Integumentary History of Skin or Integumenta: Yes Skin/Integumentary Disorders: Pruritis ([employer]W MEDICAL STUDENT) Blood Transfusions History of Blood Disorders: No Adverse Reaction to a Blood Tr: No (RA[employer]W MEDICAL STUDENT) Family Medical History Significant Family History: Asthma, Heart Disease, Hypertension Family Medial History: Cancer 03 FATHER Congestive heart failure 03 MOTHER Family history: Arthritis 03 MOTHER Family history: Asthma 03 MOTHER Family history: Cardiovascular disease 03 MOTHER Family history: Diabetes mellitus 09 BROTHER Family history: Gastrointestinal disease 03 FATHER History of drug abuse 09 BROTHER (RA[employer] ANDREW MEDICAL STUDENT) Family Medial History: Cancer 03 FATHER Congestive heart failure 03 MOTHER Family history: Arthritis 03 MOTHER Family history: Asthma 03 MOTHER Family history: Cardiovascular disease 03 MOTHER Family history: Diabetes mellitus 09 BROTHER Family history: Gastrointestinal disease 03 FATHER History of drug abuse 09 BROTHER (CIRILO PAEZ MD) Physical Exam Vital Signs Vital Sign - Last 12Hours 08/30/17 18:30 Temp 98.2 Pulse 86 Resp 18 B/P (MAP) 145/90 (108) Pulse Ox 95 O2 Delivery Nasal Cannula (CIRILO PAEZ MD) Vital Signs Capillary Refill : ([employer]W MEDICAL STUDENT) General Appearance: no apparent distress, obese HEENT: TMs normal, pharynx normal Neck: non-tender, full range of motion, normal inspection Cardiovascular: normal peripheral pulses, regular rate, rhythm Respiratory: chest non-tender, normal breath sounds, no respiratory distress Elbow/Forearm: abrasions (bilat elbows), ecchymosis (bilat elbows and arms), soft tissue tenderness (L elbow), swelling (L elbow) Wrist: Yes normal inspection, Yes non-tender, Yes no evidence of injury, Yes normal ROM Hand: normal inspection, non-tender, no evidence of injury, Bilateral Neurologic/Tendon: normal sensation, normal motor functions, normal tendon functions, no evidence tendon injury Neurologic/Psychiatric: alert, normal mood/affect, oriented x 3 Skin: ecchymosis (L elbow, bilat arms), other (L elbow hematoma) (RA[employer]W MEDICAL STUDENT) Laceration Repair : Suture Size: 4-0 (RAIN ANDREW MEDICAL STUDENT) Progress/Results/Core Measures Results/Orders My Orders Orders - CIRILO PAEZ MD Elbow, Left, 3 Views (08/30/17 18:51) (CIRILO PAEZ MD) Vital Signs/I&O Vital Sign - Last 12Hours 08/30/17 18:30 Temp 98.2 Pulse 86 Resp 18 B/P (MAP) 145/90 (108) Pulse Ox 95 O2 Delivery Nasal Cannula (CIRILO PAEZ MD) Progress Note : Time: 19:24 Progress Note Pt is a 66 yo male on two blood thinners who fell out of his wheelchair and landed on his elbows. Pt denies any head injury, loc, vision changes, hearing changes, n/v, or anything to provide clinical suspicion of a head injury causing a bleed, feel not necessary to perform a head CT at this time. Pt is able to flex and move bilat arms and elbows without any difficulty or much pain , it looks like there is a hematoma in the L elbow, anticpate RICE therapy with DERICK wrap and to return to have it drained if it continues to get bigger. Will get 3 view L elbow x-ray to confirm. (RA[employer] AND[employer]W MEDICAL STUDENT) Progress Note : Progress Note I have seen and evaluated the patient and agree with above except as indicated. Have directed the plan of care. Patient is here after fall with complaint of left elbow swelling. Patient has free range of motion of the left elbow without any pain. There is hematoma noted and he is concerned about fracture. Patient did not hit his head and adamantly denies any symptoms related to head injury including vision problems, vomiting, weakness or dizziness. X-ray of the left elbow ordered and completed and does not show any significant findings. Derick wrap to left elbow. Discharged home with return precautions. Patient verbalize understanding instructions and agreement with plan. (CIRILO PAEZ MD) Departure Impression Impression: Primary Impression: Contusion of left elbow Qualified Codes: S50.02XA - Contusion of left elbow, initial encounter Additional Impression: Abrasion forearm Disposition: 01 HOME, SELF-CARE Condition: Improved Departure-Patient Inst. Decision time for Depature: 20:10 (CIRILO PAEZ MD) Referrals: CHAO PAT DO (PCP/Family) Primary Care Physician Patient Instructions: Contusion (DC), Skin Abrasions (DC) Add. Discharge Instructions: All discharge instructions reviewed with patient and/or family. Voiced understanding. Continue medications as directed. You may use the Derick wrap to the left elbow daily for the next few days to help reduce swelling and hematoma. We do believe there is a blood collection there that should reabsorb on its own in time. If it worsens or pain increases, you should follow-up for recheck and reevaluation as this may need to be drained. Return for worse pain, weakness, fever, decreased range of motion or sensation or other concerns as needed. You may use ice packs to the area of concern 20 minutes per hour. The skin abrasions may be covered with antibiotic ointment and dressing as needed. RAIN ANDREW MEDICAL STUDENT Aug 30, 2017 19:16 CIRILO PAEZ MD Aug 30, 2017 20:11
--- NOTE | 2017-08-30 19:26 | Diagnostic Imaging Report ---
INDICATION: Fall. Elbow pain. COMPARISON: None FINDINGS: 3 views of the left elbow are obtained. No acute fracture, malalignment or osseous destructive process is seen. There is some soft tissue swelling dorsal to the proximal ulna. IMPRESSION: Soft tissue swelling. No acute osseous abnormality is demonstrated. Dictated by: Dictated on workstation # [id number]
[2017-08-30 20:19] VITALS: BP 135/76
== END 2017-08-30 20:18 | disposition home or self-care (01) ==
LOC: EDUNIT# 18:18 → ER 18:20
DX: S50.02XA Contusion of left elbow, initial encounter (principal); S50.811A Abrasion of right forearm, initial encounter; S50.812A Abrasion of left forearm, initial encounter; F41.9 Anxiety disorder, unspecified; J44.9 Chronic obstructive pulmonary disease, unspecified; G47.30 Sleep apnea, unspecified; E11.40 Type 2 diabetes mellitus with diabetic neuropathy, unspecified; I25.10 Atherosclerotic heart disease of native coronary artery without angina pectoris; I25.2 Old myocardial infarction; E78.00 Pure hypercholesterolemia, unspecified; I10 Essential (primary) hypertension; E03.9 Hypothyroidism, unspecified; Z95.1 Presence of aortocoronary bypass graft; Z95.5 Presence of coronary angioplasty implant and graft; Z90.89 Acquired absence of other organs; Z90.79 Acquired absence of other genital organ(s); Z98.52 Vasectomy status; Z87.891 Personal history of nicotine dependence; Z79.4 Long term (current) use of insulin; Z82.49 Family history of ischemic heart disease and other diseases of the circulatory system; W05.0XXA Fall from non-moving wheelchair, initial encounter
CPT/HCPCS: 73080; 99282

== ENCOUNTER → 2017-10-08 | Outpatient (CLI) | payer OTHER, MEDICARE ==
[~2017-10-08] MED LIST changes: +CEPH-507 PO; +HYDR-34 PO; -HYDR-3816 PO; +INSU100I29 SC; +LIDO700A45 TP
--- NOTE | 2017-10-08 10:09 | Diagnostic Imaging Report ---
PROCEDURE: US abdomen complete. TECHNIQUE: Multiple real-time grayscale images were obtained over the abdomen in various projections. INDICATION: Abdominal pain. FINDINGS: The liver is enlarged at 22 cm. The portal vein is patent and demonstrates normal direction of flow. No discrete liver mass is identified. The gallbladder does contain a small stone. The gallbladder wall is borderline in thickness at 3-4 mm. No pericholecystic fluid is identified. No biliary ductal dilatation is identified. The spleen is normal in size at 12.2 cm. The pancreas and aorta were obscured by bowel gas. The right and left kidneys appear grossly unremarkable. No calculi or hydronephrosis is identified. No discrete renal mass is seen. There is no ascites. IMPRESSION: 1. Hepatomegaly. 2. Cholelithiasis with borderline gallbladder wall thickening. Acute cholecystitis cannot be entirely excluded. If there is clinical concern for acute cholecystitis, hepatobiliary scan could be performed. Dictated by: Dictated on workstation # [id number]
== END ==
LOC: RAD 08:08
PROVIDERS: ATTEND Internal Medicine
DX: R10.9 Unspecified abdominal pain (principal); R16.0 Hepatomegaly, not elsewhere classified; Z90.49 Acquired absence of other specified parts of digestive tract
CPT/HCPCS: 76700

== ENCOUNTER 2017-10-15 10:07 | Day surgery (SDC) | payer OTHER, MEDICARE ==
[~2017-10-15] VITALS: Ht 172.7 cm; Wt 171.6 kg
[2017-10-15 09:10] VITALS: BP 167/84
[2017-10-15] MEDS ORDERED: PHARMACY TO DOSE IV SCH (10:15)
[2017-10-15] MEDS ORDERED: PIPERACILLIN SODIUM/TAZOBACTAM 4.5 GM in NS (IVPB) 100 ML IV ONE (10:15)
[2017-10-15] MEDS ORDERED: VANCOMYCIN INJECTION 1,000 MG in NS (IVPB) 250 ML IV SCH (10:15)
[2017-10-15] MEDS ORDERED: PIPERACILLIN SODIUM/TAZOBACTAM 4.5 GM in NS (IVPB) 100 ML IV NR ×4 (10:30)
[2017-10-15] MEDS ORDERED: VANCOMYCIN 2000 MG/NS 500 ML IVPB IV SCH ×2 (11:00)
--- NOTE | 2017-10-15 11:07 | Diagnostic Imaging Report ---
INDICATION: Shortness of air and COPD. Time of exam 10:57 AM Correlation is made with prior study from 09/13/2017. The heart is enlarged. There are changes of median sternotomy and CABG. Lungs do show some hyperinflation consistent with COPD. No infiltrate or failure is detected. No effusion or pneumothorax is identified. IMPRESSION: Cardiomegaly and COPD. No other significant abnormality is detected. Dictated by: Dictated on workstation # [id number]
[2017-10-15 11:24] LABS: BASOPHILS # (AUTO) 0.1 10^3/uL (0.0-0.1); BASOPHILS % (AUTO) 1 % (0-10); EOSINOPHILS # (AUTO) 0.3 10^3/uL (0.0-0.3); EOSINOPHILS % (AUTO) 3 % (0-10); HEMATOCRIT 37 % (40-54); HEMOGLOBIN 12.2 G/DL (13.3-17.7); LYMPHOCYTES # (AUTO) 1.9 X 10^3 (1.0-4.0); LYMPHOCYTES % (AUTO) 18 % (12-44); MEAN CORPUSCULAR HEMOGLOBIN 28 PG (25-34); MEAN CORPUSCULAR HGB CONC 33 G/DL (32-36); MEAN CORPUSCULAR VOLUME 85 FL (80-99); MEAN PLATELET VOLUME 10.1 FL (7.4-10.4); MONOCYTES # (AUTO) 1.2 X 10^3 (0.0-1.0); MONOCYTES % (AUTO) 11 % (0-12); NEUTROPHILS # (AUTO) 7.2 X 10^3 (1.8-7.8); NEUTROPHILS % (AUTO) 67 % (42-75); PLATELET COUNT 260 10^3/uL (130-400); RED CELL DISTRIBUTION WIDTH 16.3 % (10.0-14.5); WHITE BLOOD COUNT 10.7 10^3/uL (4.3-11.0)
[2017-10-15 11:37] LABS: ABG BASE EXCESS 1.2 MMOL/L (-2.5-2.5); ABG OXYGEN SATURATION 97 % (94-100); ABG PCO2 34 MMHG (35-45); ABG PH 7.47 (7.37-7.43); ABG PO2 71 MMHG (79-93); ABG TCO2 25.7 MMOL/L (21.0-31.0)
[2017-10-15] MEDS: inSUlin ASPART (NovoLOG) 1 UNIT/0.01 ML (CHARGE PER UNIT) SC SCH ×5 (11:40→20:48)
[2017-10-15 11:43] LABS: ALLENS TEST POSITIVE; INSPIRED O2 2 L; PATIENT TEMP 97.7; VENTILATOR NO
[2017-10-15 11:47] LABS: ALANINE AMINOTRANSFERASE 15 U/L (0-55); ALBUMIN 4.3 GM/DL (3.2-4.5); ALKALINE PHOSPHATASE 83 U/L (40-136); BILIRUBIN,TOTAL 0.6 MG/DL (0.1-1.0); BUN/CREATININE RATIO 14; CALCIUM 9.9 MG/DL (8.5-10.1); CARBON DIOXIDE 27 MMOL/L (21-32); CHLORIDE 97 MMOL/L (98-107); CREATININE SERUM 1.32 MG/DL (0.60-1.30); GFR ESTIMATED 54; GLUCOSE 117 MG/DL (70-105); POTASSIUM 3.5 MMOL/L (3.6-5.0); SODIUM 133 MMOL/L (135-145); TOTAL PROTEIN 8.5 GM/DL (6.4-8.2)
[2017-10-15] MEDS: methylPREDNISolone 40 MG/ML (Solu-MEDROL) VIAL IV SCH ×2 (11:54→18:10)
[2017-10-15 12:00] VITALS: BP 135/71
[2017-10-15] MEDS: RT-ALBUTEROL/IPRATROPIUM 3 ML (DUONEB) VIAL INH SCH ×2 (14:28→19:17)
[2017-10-15] MEDS ORDERED: DOCU-143 PO (14:57)
[2017-10-15] MEDS ORDERED: SENN15TA PO (14:57)
[2017-10-15 16:00] VITALS: BP 136/77
--- NOTE | 2017-10-15 16:27 | History & Physical-Hospitalist ---
HPI History of Present Illness: HPI/Chief Complaint Pt is a 66yoCM with a PMH of COPD, CHF who was admitted to the hospital by his PCP Dr Hutton today for cough. He reports that he is having a cough and some postnasal drainage. He states that Dr Hutton was worried about a lung infection. He denies any SOB and other than the cough feels "pretty good." He does complain of some abdominal pain and has been undergoing a workup as outpatient for his gallbladder. He was scheduled to have it removed on 10/18/17. He states that when his pain is bad it makes him short of breath. Source: patient Exam Limitations: no limitations Date Seen 10/15/17 Time Seen by Provider: 16:30 Attending Physician America Hutton DO PCP America Hutton DO Referring Physician Date of Admission Oct 15, 2017 at 10:07 Home Medications & Allergies Home Medications Reviewed patient Home Medication Reconciliation Form Allergies Allergies Coded Allergies Lynwwfk-Pvh-Kxj Reductase Inhibitor (Verified Allergy, Unknown, 10/15/17) codeine (Verified Allergy, Unknown, 10/15/17) fish oil (Verified Allergy, Unknown, 10/15/17) Past Sfmfybm-Flgnog-Tvbvdn Hx Patient Social History Marrital Status: Employed/Student: retired Alcohol Use: Occasionally Uses Alcohol Beverage of Choice: Whiskey Smoking Status: Former Smoker Former Smoker, Quit: Aug 13, 1996 Type Used: Cigarettes Recent Foreign Travel: No Contact w/other who traveled: No Recent Hopitalizations: No Recent Infectious Disease Expo: No Immunizations Up To Date Tetanus Booster (TDap): Less than 5yrs Pediatric: Yes Date of Pneumonia Vaccine: Jan 11, 2017 Date of Influenza Vaccine: May 13, 2017 Seasonal Allergies Seasonal Allergies: Yes Surgeries Yes Adenoidectomy, Cardiac, CABG, Coronary Stent, Tonsillectomy, Transurethral Resection, Vasectomy Respiratory Yes Chronic Bronchitis, COPD, Pneumonia, Sleep Apnea Currently Using CPAP: Yes Currently Using BIPAP: No Cardiovascular Yes Atrial Fibrillation, Chronic Edema/Swelling, Coronary Artery Disease, Heart Attack, High Cholesterol, Hypertension Neurological No Neuropathy Reproductive System Hx Reproductive Disorders: No Genitourinary Yes Prostate Problems, Bladder Infection, UTI-Chronic Gastrointestinal Yes Chronic Constipation Musculoskeletal Yes Degenerate Disk Disease, Arthritis, Chronic Back Pain Endocrine History of Endocrine Disorders: Yes Endocrine Disorders: Diabetes, Insulin dep, Hypothyroidsim HEENT History of HEENT Disorders: Yes HEENT Disorders: Cataract Loss of Vision: Denies Hearing Impairment: Hard of Hearing Cancer No Psychosocial History of Psychiatric Problem: Yes Behavioral Health Disorders: Sleep Difficulties, Anxiety Integumentary History of Skin or Integumenta: Yes Skin/Integumentary Disorders: Pruritis Blood Transfusions History of Blood Disorders: No Adverse Reaction to a Blood Tr: No Family Medical History Significant Family History: Asthma, Heart Disease, Hypertension Family Hx: Cancer 03 FATHER Congestive heart failure 03 MOTHER Family history: Arthritis 03 MOTHER Family history: Asthma 03 MOTHER Family history: Cardiovascular disease 03 MOTHER Family history: Diabetes mellitus 09 BROTHER Family history: Gastrointestinal disease 03 FATHER History of drug abuse 09 BROTHER Review of Systems Constitutional: No chills, No fever EENTM: No blurred vision, No double vision, No nose congestion, No throat pain Respiratory: cough, No dyspnea on exertion, No phlegm, No short of breath, No wheezing Cardiovascular: No chest pain, No edema, No palpitations Gastrointestinal: abdominal pain (RUQ), No constipation, No diarrhea, No nausea , No vomiting Genitourinary: No dysuria, No frequency Musculoskeletal: No joint pain, No muscle pain Skin: No lesions, No rash Psychiatric/Neurological: Denies Headache, Denies Numbness, Denies Tingling Physical Exam Physical Exam Vital Signs Vital Signs - First Documented 10/15/17 10/15/17 09:10 11:38 Temp 98.0 Pulse 85 Resp 20 B/P (MAP) 167/84 (111) Pulse Ox 97 O2 Delivery Nasal Cannula O2 Flow Rate 2.00 FiO2 28 Capillary Refill : General Appearance: No Apparent Distress, Obese HEENT: Moist Mucous Membranes, No Scleral Icterus (L), No Scleral Icterus (R) Neck: No Supple, No JVD, No Thyromegaly Respiratory: Lungs Clear, No Accessory Muscle Use, No Respiratory Distress, Other (on oxygen) Cardiovascular: Regular Rate, Rhythm, No Murmur Gastrointestinal: Normal Bowel Sounds, Non Tender, Soft Extremity: No Calf Tenderness, No Pedal Edema Neurologic/Psychiatric: Alert, Oriented x3 Skin: Normal Color, Warm/Dry Lymphatic: No Adenopathy Results Results/Procedures Lab Laboratory Tests 10/15/17 11:04 Radiology Signed Date of Exam: 10/15/17 CHEST PA/LAT (2 VIEW) INDICATION: Shortness of air and COPD. Time of exam 10:57 AM Correlation is made with prior study from 09/13/2017. The heart is enlarged. There are changes of median sternotomy and CABG. Lungs do show some hyperinflation consistent with COPD. No infiltrate or failure is detected. No effusion or pneumothorax is identified. IMPRESSION: Cardiomegaly and COPD. No other significant abnormality is detected. Assessment/Plan Admission Diagnosis Cough Admission Status: Observation Diagnosis/Problems Diagnosis/Problems (1) Cough Assessment & Plan: Having cough Will monitor overnight MAT Protocol Pulm consulted, appreciate recs (2) Cholecystitis Assessment & Plan: Dr Joy consulted, appreciate recs Abx as above (3) Chronic atrial fibrillation Status: Chronic Assessment & Plan: Will start Lovenox tonight, hold Eliquis for surgery Continue metoprolol (4) COPD (chronic obstructive pulmonary disease) Status: Chronic Assessment & Plan: Continue home inhalers Pulm consulted (5) IDDM (insulin dependent diabetes mellitus) Status: Chronic Assessment & Plan: Continue home insulin (6) Essential (primary) hypertension Status: Chronic Assessment & Plan: Continue home meds (7) Hypothyroidism Status: Chronic Assessment & Plan: Continue home synthroid Qualifiers: Qualified Codes: E03.9 - Hypothyroidism, unspecified (8) CAD (coronary artery disease) Status: Chronic Assessment & Plan: Cardiology consulted, appreciate recs No chest pain Clinical Quality Measures DVT/VTE Risk/Contraindication: Risk Factor Score Per Nursin RFS Level Per Nursing on Admit: 4+=Very High BRANDEN DELACRUZ MD Oct 15, 2017 16:27
[2017-10-15] MEDS ORDERED: DOCUSATE SODIUM 100 MG (COLACE) CAP PO PRN (16:45)
[2017-10-15] MEDS ORDERED: SENNOSIDES 8.6 MG (SENOKOT) TAB PO PRN (17:15)
[2017-10-15] MEDS ORDERED: PATIENT MAY USE OWN MEDS, ALL MC SCH (17:15)
[2017-10-15] MEDS ORDERED: LACTULOSE SYRUP 10GM/15ML (ENULOSE) 30ML UDC PO PRN (17:15)
[2017-10-15] MEDS: KCL 10 MEQ TAB (MICRO K) PO SCH ×2 (18:11→19:49)
[2017-10-15] MEDS ORDERED: PIPERACILLIN SODIUM/TAZOBACTAM 4.5 GM in NS (IVPB) 100 ML IV SCH (19:00)
--- NOTE | 2017-10-15 19:08 | CONSULTATION REPORT ---
DATE OF SERVICE: 10/15/2017 ATTENDING PRIMARY CARE PHYSICIAN: Dr. Hutton. ADMITTING PHYSICIAN: Dr. Kim. HISTORY OF PRESENT ILLNESS: The patient is a 66-year-old male known to us. He has a multitude of medical problems including COPD, hypertension, hypercholesterolemia, history of myocardial infarction in November 2015, coronary artery disease and diabetes. He did have gastrointestinal symptoms in the past and underwent an EGD and colonoscopy on 08/30/2016 and found to have a reflux esophagitis class B, small hiatal hernia and a moderate severity gastritis. Biopsies were negative for H. pylori; however, positive for Roth esophagus and he continues to be treated medically. Colonoscopy showed a moderate sigmoid diverticulosis as well as a small polyp of the splenic flexure, which was benign. We have seen before him before for pain in the right upper abdominal quadrant with associated nausea and vomiting. He was seen for this issue in 04/2017 during an admission for exacerbation of COPD. A CT scan was performed, which did show gallbladder wall thickening as well as gallstones. Upon further questioning, he had reported pain in the right upper abdominal quadrant now ongoing for greater than 10 years. Another episode did occur in more recently with pain in the right upper abdominal quadrant, which was on an intermittent basis with radiation towards the back with associated nausea; however, no vomiting. He also did not report any fever nor chills as well as no recent inadvertent weight loss. An ultrasound was performed at the time, which did show gallbladder wall thickening as well as cholelithiasis. He states that his symptoms have increased in frequency as well as severity. Today, he had reported again the pain; however, because of the pain, also some worsening shortness of breath and a mild exacerbation of COPD. He is currently on breathing treatments as well as incentive spirometer and prophylactic antibiotics for pneumonia. Due to his progressive symptomatology of his gallbladder and risk of acute cholecystitis, he would like to have his gallbladder removed on this admission, which we will proceed with. We will also continue to consult pulmonology, cardiology as well as internal medicine. He will need a close monitoring as well as aggressive pulmonary support after surgery. PAST MEDICAL HISTORY: COPD, asthma, chronic pharyngitis, prostatitis, hypertension, hypercholesterolemia, history of myocardial infarction in 11/2015, coronary artery disease, peptic ulcer disease, history of Roth's esophagus, chronic symptomatic calculous cholecystitis. PAST SURGICAL HISTORY: Coronary artery bypass grafting x1 vessel in 2007, cardiac catheterization and stent placement x2 in 11/2015. ALLERGIES: STATINS, FISH OIL. MEDICATIONS: Metaxalone 5 mg daily, lactulose 10 mg p.r.n., Synthroid 25 mcg daily, potassium 20 mEq daily, Eliquis 5 mg b.i.d., aspirin 81 mg daily, Plavix 75 mg daily, Cardizem 120 mg daily, Spiriva 2.5 mcg 2 puffs daily, hydroxyzine 25 mcg p.r.n., Zofran p.r.n., hydrocodone p.r.n., insulin sliding scale, Lantus insulin 20 units at bedtime, Singulair 10 mg daily, albuterol nebulizer q.i.d., Atrovent t.i.d., Zyrtec daily, Crestor 5 mg daily, metoprolol 50 mg daily, Advair Diskus 500/50 mg b.i.d., spironolactone 25 mg b.i.d., Proscar 5 mg daily, Flomax 0.4 mg daily, clindamycin 150 mg daily. SOCIAL HISTORY: Previous smoker, quit in 1999. Mild social alcohol. FAMILY HISTORY: Noncontributory. VITAL SIGNS: Blood pressure 167/84, temperature 98.0, pulse 85, respirations 20, pulse ox 97% on O2 nasal cannula at 2 liters. Current weight is approximately 280 pounds and 5 feet 9 inches with an approximate body mass index of 56.0. REVIEW OF SYSTEMS: Well-nourished male, currently in no acute distress. He states that his respiratory status was initially worsened over the weekend; however, has gone back to baseline over today. He is on oxygen nasal cannula at the same rate, which he normally is at home. He does not report any cough or sputum production. No chest pain, palpitations or any diaphoresis. He does report pain in the right upper abdominal quadrant with associated nausea; however, is able to eat and no vomiting. No diarrhea, constipation. No red blood per rectum, no dark tarry stools. No fever, chills. No recent inadvertent weight loss. The patient states that overall feels better than he normally has in the past despite the pain in the right upper abdominal quadrant. All other review of systems negative. PHYSICAL EXAMINATION: CHEST: Scattered rales, rhonchi and expiratory wheezes bilaterally. HEART: Regular, no murmurs. EXTREMITIES: A +2/3 bilateral lower extremity edema. Negative Homans sign. HEENT: No scleral icterus. NECK: No cervical lymphadenopathy. ABDOMEN: Soft, nondistended. There is pain in the right upper abdominal quadrant upon deep palpation. No peritoneal signs. SKIN: Warm, dry. ASSESSMENT AND PLAN: A 66-year-old male with symptomatic chronic calculous cholecystitis. We initially tried to manage this conservatively; however, he has had increased frequency as well as severity of symptoms related to gallbladder with findings of gallbladder wall inflammation consistent with a progression of the disease process. The risks and benefits of laparoscopic cholecystectomy as well as possible open cholecystectomy were explained to the patient, also in lieu with his multitude of medical problems. He is in full understanding of these risks and benefits. However, due to the symptoms, we would like to proceed with surgery, which we will schedule on this admission. Again, we will involve all consultants and proceed with their evaluations and input as well as preventive strategies including aggressive pulmonary support and tight glycemic control and adequate blood pressure and rate maintenance. Job ID: [id number] DocumentID: [id number] Dictated Date: 10/15/2017 18:23:48 Auto Vinyl Top Installer Date: 10/15/2017 19:08:14 Dictated By: HAWK GREENWOOD MD
[2017-10-15 20:00] VITALS: BP 147/76
[2017-10-15] MEDS ORDERED: ADVAIR HFA 115/21 MCG INHALER 8 GM IH SCH (20:00)
[2017-10-15] MEDS ORDERED: RT-ADVAIR HFA 115/21 MCG PER PUFF IH SCH (20:00)
[2017-10-15] MEDS: MONTELUKAST 10 MG (SINGULAIR) TAB PO SCH (20:32)
[2017-10-15] MEDS: PIPERACILLIN SODIUM/TAZOBACTAM 4.5 GM in NS (IVPB) 100 ML IV SCH (20:33)
[2017-10-15] MEDS: inSUlin DETERMIR 1 UNIT/0.01 ML (LEVEMIR) CHARGE PER UNIT SQ SCH (20:48)
[2017-10-15] MEDS: LIDOCAINE PATCH REMOVAL TP SCH (20:49)
[2017-10-15] MEDS: ADVAIR HFA 115/21 MCG INHALER 8 GM IH SCH (21:26)
[2017-10-16] VITALS: BP 128/59
[2017-10-16] MEDS: methylPREDNISolone 40 MG/ML (Solu-MEDROL) VIAL IV SCH ×4 (00:06→15:45)
[2017-10-16] MEDS ORDERED: VANCOMYCIN 1250 MG/NS 250 ML IVPB IV SCH ×2 (02:00)
[2017-10-16] MEDS: PIPERACILLIN SODIUM/TAZOBACTAM 4.5 GM in NS (IVPB) 100 ML IV SCH ×3 (03:12→20:54)
[2017-10-16 04:00] VITALS: BP 173/79
[2017-10-16 06:00] VITALS: BP 149/80
[2017-10-16] MEDS: KCL 10 MEQ TAB (MICRO K) PO SCH ×2 (06:41→18:13)
[2017-10-16] MEDS: LEVOTHYROXINE 25 MCG (LEVOTHROID) TAB PO SCH (06:41)
[2017-10-16] MEDS: inSUlin ASPART (NovoLOG) 1 UNIT/0.01 ML (CHARGE PER UNIT) SC SCH ×8 (06:41→20:55)
--- NOTE | 2017-10-16 06:42 | Pulmonary Consultation ---
History of Present Illness History of Present Illness Date of Consultation 10/16/17 06:37 Date of Admission History of Present Illness 66yo with hx of COPD, morbid obesity, JOSE MANUEL and multiple hospitalizations. PT has been diagnosed with chronic cholecystitis and has been having progressive symptoms. Dr. Joy is planning on performing cholecystectomy today. PT was admitted secondary to pending surgery and persistent cough and RUQ pain. Secondary to patients comorbidities pt is high risk for surgery. Pt wants surgery JAZMINE secondary to persistent worsening symptoms. I am consulted for pulmonary management and to assist with optimizing patients pulmonary status prior to surgery. Allergies and Home Medications Allergies Coded Allergies: Pvebfyj-Ycs-Hvn Reductase Inhibitor (Verified Allergy, Unknown, 10/15/17) codeine (Verified Allergy, Unknown, 10/15/17) fish oil (Verified Allergy, Unknown, 10/15/17) Home Medications Albuterol Sulfate 2.5 Mg/3 Ml Vial.neb, 2.5 MG NEB QID, (Reported) Albuterol Sulfate 18 Gm Hfa.aer.ad, 1 PUFF IH Q4H PRN for SHORTNESS OF BREATH, ( Reported) Apixaban 5 Mg Tablet, 5 MG PO BID, (Reported) Cetirizine HCl/Pseudoephedrine 1 Each Tab.er.12h, 1 TAB PO DAILY, (Reported) Clopidogrel Bisulfate 75 Mg Tablet, 75 MG PO DAILY, (Reported) Diltiazem HCl 240 Mg Cap.er.deg, 240 MG PO DAILY, (Reported) Docusate Sodium 100 Mg Capsule, 500 MG PO DAILY PRN for CONSTIPATION-1ST LINE, ( Reported) Finasteride 5 Mg Tablet, 2.5 MG PO HS, (Reported) TAKES 1/2 (5MG) TABLET Fluticasone/Salmeterol 1 Each Blst.w.dev, 1 PUFF IH BID, (Reported) Furosemide 40 Mg Tablet, 80 MG PO DAILY, (Reported) Hydrocodone Bit/Acetaminophen 1 Each Tablet, 1 TAB PO Q6H PRN for PAIN-MODERATE, (Reported) Insulin Detemir 100 Unit/1 Ml Insuln.pen, 20 UNITS SC BID, (Reported) Insulin Lispro 100 Unit/1 Ml Insuln.pen, 50 UNITS SQ ACHS, (Reported) Lactulose 10 Gm/15 Ml Solution, 2 TBS PO Q4H PRN for CONSTIPATION-3RD LINE, ( Reported) Levothyroxine Sodium 25 Mcg Tablet, 25 MCG PO DAILY, (Reported) Lidocaine 1 Each Adh..patch, 1 PATCH TP DAILY, (Reported) 5% Meloxicam 15 Mg Tablet, 15 MG PO DAILY, (Reported) Metolazone 5 Mg Tablet, 5 MG PO DAILY, (Reported) Metoprolol Succinate 50 Mg Tab.er.24h, 50 MG PO DAILY, (Reported) Montelukast Sodium 10 Mg Tablet, 10 MG PO HS, (Reported) Potassium Chloride 10 Meq Tablet.er, 20 MEQ PO BID, (Reported) TAKES 2 (10MEQ) TABLETS Rosuvastatin Calcium 5 Mg Tablet, 5 MG PO DAILY, (Reported) Sennosides 15 Mg Tablet, 5 TAB PO DAILY PRN for CONSTIPATION-2ND LINE, (Reported ) Spironolactone 25 Mg Tablet, 50 MG PO DAILY, (Reported) Tamsulosin HCl 0.4 Mg Cap.er.24h, 0.4 MG PO DAILY, (Reported) Tiotropium [place] 4 Gm Mist.inhal, 2 PUFF IH DAILY, (Reported) Past Ckqrgfi-Ndyrks-Skpiwn Hx Patient Social History Alcohol Use: Occasionally Uses Alcohol Beverage of Choice: [employer]time[employer] Smoking Status: Former Smoker Type Used: Cigarettes Former Smoker, Quit: Aug 13, 1996 Recent Foreign Travel: No Contact w/Someone Who Travel: No Recent Infectious Disease Expo: No Recent Hopitalizations: No Immunizations Up To Date Tetanus Booster (TDap): Less than 5yrs PED Vaccines UTD: Yes Date of Pneumonia Vaccine: Jan 11, 2017 Date of Influenza Vaccine: May 13, 2017 Seasonal Allergies Seasonal Allergies: Yes Surgeries History of Surgeries: Yes Surgeries: Adenoidectomy, Cardiac, CABG, Coronary Stent, Tonsillectomy, Transurethral Resection, Vasectomy Respiratory History of Respiratory Disorde: Yes Respiratory Disorders: Asthma, Pneumonia, Sleep Apnea, COPD Currently Using CPAP: Yes Currently Using BIPAP: No Cardiovascular History of Cardiac Disorders: Yes Cardiac Disorders: Atrial Fibrillation, Chronic Edema/Swelling, Coronary Artery Disease, Heart Attack, High Cholesterol, Hypertension Neurological History of Neurological Disord: No Neurological Disorders: Neuropathy Reproductive System Hx Reproductive Disorders: No Genitourinary History of Genitourinary Disor: Yes Genitourinary Disorders: Prostate Problems, Bladder Infection, UTI-Chronic Gastrointestinal History of Gastrointestinal Di: Yes Gastrointestinal Disorders: Chronic Constipation Musculoskeletal History of Musculoskeletal Dis: Yes Musculoskeletal Disorders: Degenerate Disk Disease, Arthritis, Chronic Back Pain Endocrine History of Endocrine Disorders: Yes Endocrine Disorders: Diabetes, Insulin dep, Hypothyroidsim HEENT History of HEENT Disorders: Yes HEENT Disorders: Cataract Loss of Vision: Denies Hearing Impairment: Hard of Hearing Cancer History of Cancer: No Psychosocial History of Psychiatric Problem: Yes Behavioral Health Disorders: Sleep Difficulties, Anxiety Integumentary History of Skin or Integumenta: Yes Skin/Integumentary Disorders: Pruritis Blood Transfusions History of Blood Disorders: No Adverse Reaction to a Blood Tr: No Family Medical History Significant Family History: Asthma, Heart Disease, Hypertension Family Medial History: Cancer 03 FATHER Congestive heart failure 03 MOTHER Family history: Arthritis 03 MOTHER Family history: Asthma 03 MOTHER Family history: Cardiovascular disease 03 MOTHER Family history: Diabetes mellitus 09 BROTHER Family history: Gastrointestinal disease 03 FATHER History of drug abuse 09 BROTHER Exam Exam Vital Signs Date Time Temp Pulse Resp B/P (MAP) Pulse Ox O2 Delivery O2 Flow Rate FiO2 10/16/17 01:00 81 10/16/17 00:00 97.6 72 18 128/59 (82) 97 NIV CPAP 10/15/17 21:26 93 Nasal Cannula 2.00 10/15/17 21:00 Nasal Cannula 2.00 10/15/17 20:00 98.6 78 20 147/76 (99) 94 Nasal Cannula 2.00 10/15/17 19:17 93 Nasal Cannula 2.00 10/15/17 19:00 85 10/15/17 16:00 97.7 75 20 136/77 (96) 98 Nasal Cannula 2.00 10/15/17 14:28 97 Nasal Cannula 2.00 10/15/17 13:00 61 10/15/17 12:00 98.0 63 20 135/71 (92) 97 Nasal Cannula 2.00 10/15/17 11:38 87 96 28 10/15/17 11:00 Nasal Cannula 2.00 10/15/17 09:10 98.0 85 20 167/84 (111) 97 Nasal Cannula 2.00 I & O 10/16/17 07:00 Intake Total 1360 ml Balance 1360 ml General Appearance: No Apparent Distress, Obese HEENT: Moist Mucous Membranes, No Scleral Icterus (L), No Scleral Icterus (R) Neck: No Supple, No JVD, No Thyromegaly Respiratory: Lungs Clear, No Accessory Muscle Use, No Respiratory Distress, Other (on oxygen) Cardiovascular: Regular Rate, Rhythm, No Murmur Extremity: No Calf Tenderness, No Pedal Edema Neurologic/Psychiatric: Alert, Oriented x3 Skin: Normal Color, Warm/Dry Lymphatic: No Adenopathy Results Lab Laboratory Tests 10/15/17 11:04 Assessment/Plan Assessment/Plan Symptomatic chronic calculous cholecystitis with worsening symptoms -Pt is at least a moderate to severe risk of surgery however his pulmonary status is currently at his baseline. Pt is ok to proceed with surgery from pulmonary standpoint. I will continue to follow and help manage any pulmonary complications. -Scheduled for surgery today COPD with persistent cough- -Continue Solumedrol for now -SVNs Morbid obesity with JOSE MANUEL -Home CPAP Chronic Afib and CAD -Cardiology following CKD IDDM [id number] RAIMUNDO MATTHEWS DO Oct 16, 2017 06:42
[2017-10-16 06:49] LABS: BASOPHILS % (AUTO) 0 % (0-10); EOSINOPHILS % (AUTO) 0 % (0-10); HEMATOCRIT 35 % (40-54); HEMOGLOBIN 11.7 G/DL (13.3-17.7); LYMPHOCYTES % (AUTO) 7 % (12-44); MEAN CORPUSCULAR HEMOGLOBIN 28 PG (25-34); MEAN CORPUSCULAR HGB CONC 34 G/DL (32-36); MEAN CORPUSCULAR VOLUME 84 FL (80-99); MEAN PLATELET VOLUME 10.1 FL (7.4-10.4); MONOCYTES # (AUTO) 0.3 X 10^3 (0.0-1.0); MONOCYTES % (AUTO) 2 % (0-12); NEUTROPHILS # (AUTO) 13.5 X 10^3 (1.8-7.8); NEUTROPHILS % (AUTO) 91 % (42-75); PLATELET COUNT 240 10^3/uL (130-400); RED BLOOD COUNT 4.14 10^6/uL (4.35-5.85); WHITE BLOOD COUNT 14.8 10^3/uL (4.3-11.0)
[2017-10-16] MEDS: RT-ALBUTEROL/IPRATROPIUM 3 ML (DUONEB) VIAL INH SCH ×4 (07:04→19:36)
[2017-10-16] MEDS: ADVAIR HFA 115/21 MCG INHALER 8 GM IH SCH ×2 (07:08→19:36)
[2017-10-16 07:10] LABS: ALBUMIN 4.2 GM/DL (3.2-4.5); BILIRUBIN,TOTAL 0.7 MG/DL (0.1-1.0); CALCIUM 9.4 MG/DL (8.5-10.1); CREATININE SERUM 1.36 MG/DL (0.60-1.30); TOTAL PROTEIN 8.5 GM/DL (6.4-8.2)
[2017-10-16 07:25] LABS: BAND NEUTROPHILS 1 %; BASOPHILS % (MANUAL) 0 %; EOSINOPHILS % (MANUAL) 0 %; LYMPHOCYTES % (MANUAL) 7 %; MONOCYTES % (MANUAL) 4 %; NEUTROPHILS % (MANUAL) 88 %
[2017-10-16 07:26] LABS: ANISOCYTOSIS SLIGHT
[2017-10-16] MEDS: meTOproloL SUCCINATE 50 MG (TOPROL XL) TAB PO SCH (07:54)
[2017-10-16] MEDS: HYDROcodone/APAP 7.5 MG/325 MG (LORTAB, LORCET PLUS) TABLET PO PRN ×2 (07:54→15:45)
[2017-10-16 08:00] VITALS: BP 136/68
[2017-10-16] MEDS ORDERED: UMECLIDINIUM BROMIDE (INCRUSE ELLIPTA) 7'S IH SCH (08:00)
[2017-10-16] MEDS: METOLAZONE 5 MG (ZAROXOLYN) TAB PO SCH (09:08)
[2017-10-16] MEDS: PSEUDOEPHEDRINE HCL 30 MG (SUDAFED) TAB PO SCH ×4 (09:08→20:55)
[2017-10-16] MEDS: SPIRONOLACTONE 25 MG (ALDACTONE) TAB PO SCH (09:08)
[2017-10-16] MEDS: TAMSULOSIN 0.4 MG (FLOMAX) CAP PO SCH (09:09)
[2017-10-16] MEDS: FUROSEMIDE 40 MG (LASIX) TAB PO SCH (09:09)
[2017-10-16] MEDS: ROSUVASTATIN 5 MG (CRESTOR) TABLET PO SCH (09:09)
[2017-10-16] MEDS: LORATADINE (CLARITIN) 10 MG TAB PO SCH (09:09)
[2017-10-16] MEDS: inSUlin DETERMIR 1 UNIT/0.01 ML (LEVEMIR) CHARGE PER UNIT SQ SCH ×2 (09:09→20:54)
[2017-10-16] MEDS: LIDOCAINE (LIDODERM) 5% PATCH TP SCH (09:11)
[2017-10-16] MEDS ORDERED: TROUGH ORDER-PHARMACY XX NR ×2 (10:00→13:00)
[2017-10-16] MEDS ORDERED: BUP/EPI 0.5% 1:200,000 (SENSORCAINE) 30 ML VIAL ONE (10:11)
--- NOTE | 2017-10-16 10:40 | Consultation-Cardiology ---
HPI-Cardiology Cardiology Consultation: Date of Consultation 10/16/17 Time Seen by Provider: 10:30 Date of Admission 10-15-17 Attending Physician America Pat DO Admitting Physician America Pat DO Consulting Physician Kayla Bishop MD HPI: Chief Complaint: SOB Mr. Garcia is a 66 year old male admitted to [facility] with c/o increased shortness of breath and RUQ pain for which he is scheduled to undergo cholecystectomy later today. He reports he feels his shortness of breath is chronic and unchanged in the recent past. He denies any c/o CP, palpitations, syncope or near syncope. He has chronic bilat LE edema, which he feels is unchanged. He does report RUQ discomfort. Review of Systems-Cardiology Review of Systems Constitutional: No chills, No fever Eyes: No vision change Ears/Nose/Throat: No recent hearing loss Respiratory: As described under HPI Cardiovascular: As described under HPI Gastrointestinal: constipation, other (RUQ pain) Genitourinary: No dysuria, No hematuria Musculoskeletal: joint swelling (chronic) Skin: rash (left forearm), No ulcerations Psychiatric/Neurological: No anxiety, No seizure, No focal weakness, No syncope Hematologic: No bleeding abnormalities VYH-Zexwwr-Rcfupd Hx Patient Social History Marrital Status: Employed/Student: retired Alcohol Use: Occasionally Uses Smoking Status: Former Smoker Former smoker/When Quit: Aug 13, 2006 Type Used: Cigarettes Recent Foreign Travel: No Recent Infectious Disease Expo: No Immunizations Up To Date Tetanus Booster (TDap): Less than 5yrs Date of Pneumonia Vaccine: Jan 11, 2017 Date of Influenza Vaccine: May 13, 2017 Past Medical History PMH As described under Assessment. Family Medical History Family Medical History: Reports mother had CAD and CHF. No reported h/o premature CAD or SCD. Family History: 03 FATHER Cancer Family history: Gastrointestinal disease 03 MOTHER Congestive heart failure Family history: Arthritis Family history: Asthma Family history: Cardiovascular disease 09 BROTHER Family history: Diabetes mellitus History of drug abuse Allergies and Home Medications Allergies Coded Allergies: Dkiwhmf-Rzu-Vnr Reductase Inhibitor (Verified Allergy, Unknown, 10/15/17) codeine (Verified Allergy, Unknown, 10/15/17) fish oil (Verified Allergy, Unknown, 10/15/17) Home Medications Albuterol Sulfate 2.5 Mg/3 Ml Vial.neb, 2.5 MG NEB QID, (Reported) Albuterol Sulfate 18 Gm Hfa.aer.ad, 1 PUFF IH Q4H PRN for SHORTNESS OF BREATH, ( Reported) Apixaban 5 Mg Tablet, 5 MG PO BID, (Reported) Cetirizine HCl/Pseudoephedrine 1 Each Tab.er.12h, 1 TAB PO DAILY, (Reported) Clopidogrel Bisulfate 75 Mg Tablet, 75 MG PO DAILY, (Reported) Diltiazem HCl 240 Mg Cap.er.deg, 240 MG PO DAILY, (Reported) Docusate Sodium 100 Mg Capsule, 500 MG PO DAILY PRN for CONSTIPATION-1ST LINE, ( Reported) Finasteride 5 Mg Tablet, 2.5 MG PO HS, (Reported) TAKES 1/2 (5MG) TABLET Fluticasone/Salmeterol 1 Each Blst.w.dev, 1 PUFF IH BID, (Reported) Furosemide 40 Mg Tablet, 80 MG PO DAILY, (Reported) Hydrocodone Bit/Acetaminophen 1 Each Tablet, 1 TAB PO Q6H PRN for PAIN-MODERATE, (Reported) Insulin Detemir 100 Unit/1 Ml Insuln.pen, 20 UNITS SC BID, (Reported) Insulin Lispro 100 Unit/1 Ml Insuln.pen, 50 UNITS SQ ACHS, (Reported) Lactulose 10 Gm/15 Ml Solution, 2 TBS PO Q4H PRN for CONSTIPATION-3RD LINE, ( Reported) Levothyroxine Sodium 25 Mcg Tablet, 25 MCG PO DAILY, (Reported) Lidocaine 1 Each Adh..patch, 1 PATCH TP DAILY, (Reported) 5% Meloxicam 15 Mg Tablet, 15 MG PO DAILY, (Reported) Metolazone 5 Mg Tablet, 5 MG PO DAILY, (Reported) Metoprolol Succinate 50 Mg Tab.er.24h, 50 MG PO DAILY, (Reported) Montelukast Sodium 10 Mg Tablet, 10 MG PO HS, (Reported) Potassium Chloride 10 Meq Tablet.er, 20 MEQ PO BID, (Reported) TAKES 2 (10MEQ) TABLETS Rosuvastatin Calcium 5 Mg Tablet, 5 MG PO DAILY, (Reported) Sennosides 15 Mg Tablet, 5 TAB PO DAILY PRN for CONSTIPATION-2ND LINE, (Reported ) Spironolactone 25 Mg Tablet, 50 MG PO DAILY, (Reported) Tamsulosin HCl 0.4 Mg Cap.er.24h, 0.4 MG PO DAILY, (Reported) Tiotropium [place] 4 Gm Mist.inhal, 2 PUFF IH DAILY, (Reported) Patient Home Medication List Home Medication List Reviewed: Yes Physical Exam-Cardiology Physical Exam Vital Signs/I&O Vital Sign - Last 12Hours 10/16/17 10/16/17 10/16/17 10/16/17 06:00 07:05 08:00 15:32 Temp 96.2 Pulse 70 Resp 20 B/P (MAP) 149/80 (103) 136/68 (90) Pulse Ox 94 O2 Delivery Nasal Cannula Nasal Cannula Room Air O2 Flow Rate 2.00 2.00 Intake and Output 10/16/17 00:00 Intake Total 1360 ml Balance 1360 ml Capillary Refill : Constitutional: AAO x 3, well-developed, well-nourished HEENT: PERRL, hearing is well preserved, oral hygience is good Neck: No carotid bruit, carotid pulses are 2 + bilaterally Respiratory: No accessory muscle use, No respiratory distress, chest expansion is symmetric, other (good air entry) Cardiovascular: irregularly irregular, No JVD, S1 and S2, systolic murmur Gastrointestinal: No soft, No round, audible bowel sounds Rectal: deferred Extremities: significant edema (2 (+) bilat pedal/ankle edema) Neurologic/Psychiatric: grossly intact, power is 5/5 both on sides Skin: rash (left posterior foream with macular/papular rash with excoriations) Data Review Labs Laboratory Tests 10/15/17 20:37: Glucometer 374H 10/16/17 06:31: Glucometer 277H 10/16/17 06:35: White Blood Count 14.8H, Red Blood Count 4.14L, Hemoglobin 11.7L, Hematocrit 35L , Mean Corpuscular Volume 84, Mean Corpuscular Hemoglobin 28, Mean Corpuscular Hemoglobin Concent 34, Red Cell Distribution Width 16.0H, Platelet Count 240, Mean Platelet Volume 10.1, Neutrophils (%) (Auto) 91H, Lymphocytes (%) (Auto) 7L , Monocytes (%) (Auto) 2, Eosinophils (%) (Auto) 0, Basophils (%) (Auto) 0, Neutrophils # (Auto) 13.5H, Lymphocytes # (Auto) 1.0, Monocytes # (Auto) 0.3, Eosinophils # (Auto) 0.0, Basophils # (Auto) 0.0, Neutrophils % (Manual) 88, Lymphocytes % (Manual) 7, Monocytes % (Manual) 4, Eosinophils % (Manual) 0, Basophils % (Manual) 0, Band Neutrophils 1, Anisocytosis SLIGHT, Sodium Level 132L, Potassium Level 4.0, Chloride Level 100, Carbon Dioxide Level 17L, Anion Gap 15H, Blood Urea Nitrogen 24H, Creatinine 1.36H, Estimat Glomerular Filtration Rate 52, BUN/Creatinine Ratio 18, Glucose Level 285H, Calcium Level 9.4, Total Bilirubin 0.7, Aspartate Amino Transf (AST/SGOT) 20, Alanine Aminotransferase (ALT/SGPT) 20, Alkaline Phosphatase 81, Total Protein 8.5H, Albumin 4.2 10/16/17 10:45: Glucometer 305H 10/16/17 14:36: Glucometer 291H 10/16/17 16:04: Glucometer 348H Microbiology 10/15/17 Blood Culture - Preliminary, Resulted No growth Radiology NAME: JENNIFER GARCIA [facility] REC#: [id number] PT STATUS: ADM IN : 1950 PHYSICIAN: AMERICA PAT DO ADMIT DATE: 10/15/17 Signed Date of Exam: 10/15/17 CHEST PA/LAT (2 VIEW) INDICATION: Shortness of air and COPD. Time of exam 10:57 AM Correlation is made with prior study from 09/13/2017. The heart is enlarged. There are changes of median sternotomy and CABG. Lungs do show some hyperinflation consistent with COPD. No infiltrate or failure is detected. No effusion or pneumothorax is identified. IMPRESSION: Cardiomegaly and COPD. No other significant abnormality is detected. Dictated by: Dictated on workstation # [id number] Dict: 10/15/17 1051 Trans: 10/15/17 1602 Interpreted by: LOREN COLEMAN MD Electronically signed by: LOREN COLEMAN MD 10/15/17 1608 A/P-Cardiology Assessment/Admission Diagnosis Dyspnea, multi-factorial (see below) Mobid obesity with BMI approx 57 Obesity hypoventilation Chronic intermittent diastolic CHF Persistent a-fib first diagnosed in early February 2016, rate controlled COPD Quit smoking in early 2000s Cholecystitis - s/p laparoscopic cholecystectomy on 10/16/[address] Joy Recurrent leg cellulitis in Sep 2017 OAC with Eliquis CAD with a h/o CABG in 2006 at [facility] in [place], [place]. On cardiac cath of 11-11-15: Multivessel coronary disease including multiple more than 90% stenosis of the proximal and mid left anterior descending artery. The mid to distal left anterior descending artery is protected with a widely patent left internal mammary artery graft. The left circumflex artery had 99% ostial/ proximal stenosis to which successful stenting was carried out with Promus Premier 3.5 x 20 mm stent with a reduction of stenosis to 0% residual. The distal left circumflex and its obtuse marginal branches have diffuse moderate to moderately severe disease which were not intervened on. The right coronary artery is dominant and had 90% proximal stenosis to which successful stenting was carried out with Promus Premier 2.75 x 28 mm stent with reduction of stenosis to 0% residual. The distal right coronary artery has multiple stenoses of 50 to 60%, which were not intervened on. Cardiac cath of 11-11-15 showed well preserved global left ventricular systolic function and ejection fraction of 55 to 60%. Elevated left ventricular end- diastolic pressure which was measured at approximately 20 mmHg. No significant mitral regurgitation. ABIs on 01/13/16 at [place], [place]: 1.1 on both sides Echocardiogram of 09/14/17 (Dr Costello): LVEF 55-65%, dilated LA, supotimal study Chronic bilat leg swelling, likely due to venous insuff, no evidence of DVT on on venous duplex of 09/13/17 Hypertension Obesity-hypoventilation syndrome DM II Diabetic R foot ulcer, being managed by Dr Estrella Chronic renal insufficiency - chronic likely due in some part to diabetic nephropathy Sleep apnea syndrome - CPAP therapy - managed by Dr. Paris Minimal carotid dz on u/s of November 2015 Discussion and Recomendations Multi-factorial dyspnea as noted above Continue current regimen Chronic PAF for which he is on OAC with Eliquis for stroke prophylaxis. This is currently being withheld d/t surgery. Advise resumption JAZMINE following surgery when ok from surgical stand point CAD with h/o stenting approx 2 years ago. Plavix being withheld for now d/t surgery. Resume when ok with surgical services Continue current regimen Monitor lab closely We would like to thank medical services for this consult Further recs will be based on his hospital course Risk considered to be intermediate. We have discussed with him his cardiac risks. He verbalizes understanding. OK to proceed with necessary surgery. This consult is being scribed by Simon Gabriel APRN on behalf of Dr. Bishop after discussion regarding plan of care. Clinical Quality Measures DVT/VTE Risk/Contraindication: Risk Factor Score Per Nursin RFS Level Per Nursing on Admit: 4+=Very High Physician Assessment Physician Assessment Reports shortness of breath (chronic, mod to severe), no cp, no palp, no syncope Cor: irreg Lungs: dec bs at bases, prolonged exp Ext: 2+ edema A&R * As documented in our note above that I updated (italics) as the time of this writing * I spoke with him and discussed his CV issues * Monitor labs BENJAMIN GABRIEL Oct 16, 2017 10:40 KAYLA BISHOP MD [facility] Oct 16, 2017 16:53
--- NOTE | 2017-10-16 10:42 | Progress Note-Hospitalist ---
Subjective HPI/CC On Admission Date Seen by Provider: Oct 16, 2017 Time Seen by Provider: 10:10 Pt is a 66yoCM with a PMH of COPD, CHF who was admitted to the hospital by his PCP Dr Hutton today for cough. He reports that he is having a cough and some postnasal drainage. He states that Dr Hutton was worried about a lung infection. He denies any SOB and other than the cough feels "pretty good." He does complain of some abdominal pain and has been undergoing a workup as outpatient for his gallbladder. He was scheduled to have it removed on 10/18/17. He states that when his pain is bad it makes him short of breath. Subjective/Events-last exam Pt reports feeling well. Ready for surgery. Would like to know when it will be. Otherwise no complaints. Reports breathing well. No cough or SOB. Abd pain ok today. Objective Exam Vital Signs Vital Signs Date Time Temp Pulse Resp B/P (MAP) Pulse Ox O2 Delivery O2 Flow Rate FiO2 10/15/17 09:10 98.0 85 20 167/84 (111) 97 Nasal Cannula 2.00 10/15/17 11:38 28 Capillary Refill : General Appearance: No Apparent Distress, Chronically ill, Obese Respiratory: Lungs Clear, No Respiratory Distress, Other (on oxygen) Cardiovascular: Regular Rate, Rhythm, No Murmur Gastrointestinal: Normal Bowel Sounds, Non Tender, Soft Extremity: Non Tender, No Calf Tenderness Neurologic/Psychiatric: Alert, Oriented x3 Results/Procedures Lab Laboratory Tests 10/15/17 11:04 10/16/17 06:35 Assessment/Plan Assessment and Plan Assess & Plan/Chief Complaint Cough Diagnosis/Problems Diagnosis/Problems (1) Cholecystitis Assessment & Plan: Dr Joy consulted, appreciate recs Planning for OR today to cholecystectomy On Vanc and Zosyn No indication that I can see for Vanc so will DC (2) Cough Assessment & Plan: Cough improving Will monitor overnight MAT Protocol Pulm consulted, appreciate recs (3) Chronic atrial fibrillation Status: Chronic Assessment & Plan: Holding anticoagulation for surgery (4) COPD (chronic obstructive pulmonary disease) Status: Chronic Assessment & Plan: Continue home inhalers Pulm consulted Qualifiers: Qualified Codes: J44.9 - Chronic obstructive pulmonary disease, unspecified (5) IDDM (insulin dependent diabetes mellitus) Status: Chronic Assessment & Plan: Continue home insulin (6) Essential (primary) hypertension Status: Chronic Assessment & Plan: Continue home meds (7) Hypothyroidism Status: Chronic Assessment & Plan: Continue home synthroid Qualifiers: Qualified Codes: E03.9 - Hypothyroidism, unspecified (8) CAD (coronary artery disease) Status: Chronic Assessment & Plan: Cardiology consulted, appreciate recs No chest pain Qualifiers: Qualified Codes: I25.10 - Atherosclerotic heart disease of [place] coronary artery without angina pectoris BRANDEN DELACRUZ MD Oct 16, 2017 10:42 am
[2017-10-16] MEDS: LACTATED RINGERS 1,000 ML IV PRN ×2 (10:53→13:40)
[2017-10-16] MEDS ORDERED: ROCURONIUM 10 MG/ML 5 ML SYRINGE IV ONE ×2 (10:57→13:16)
[2017-10-16] MEDS ORDERED: SUCCINYLCHOLINE INJ 100 MG/5 ML SYR ONE (10:57)
[2017-10-16] MEDS ORDERED: fentaNYL INJECTION 100 MCG/2 ML AMP ONE (10:57)
[2017-10-16] MEDS ORDERED: LIDOCAINE PF 2% 5 ML (XYLOCAINE) VIAL ONE (10:57)
[2017-10-16] MEDS ORDERED: SEVOFLURANE (ULTANE) 15 ML INHAL SOLN ONE (10:57)
[2017-10-16] MEDS ORDERED: ONDANSETRON 4 MG/2 ML (SDV) Z0FRAN ONE (10:57)
[2017-10-16] MEDS ORDERED: proPOfol 200 MG/20 ML (DIPRIVAN) VIAL IV ONE (10:57)
[2017-10-16] MEDS ORDERED: MIDAZOLAM 2 MG/2 ML (VERSED) VIAL ONE (10:58)
--- NOTE | 2017-10-16 11:36 | Progress Note-Pre Operative ---
Pre-Operative Progress Note H&P Reviewed The H&P was reviewed, patient examined and no changes noted. Date Seen by Provider: Oct 16, 2017 Time Seen by Provider: 11:30 Date H&P Reviewed: Oct 16, 2017 Time H&P Reviewed: :30 Pre-Operative Diagnosis: symptomatic chronic calculous cholecystitis HAWK GREENWOOD MD Oct 16, 2017 11:36
[2017-10-16] MEDS ORDERED: ONDANSETRON 4 MG/2 ML (SDV) Z0FRAN IVP PRN ×2 (11:45→14:30)
[2017-10-16] MEDS ORDERED: fentaNYL INJECTION 100 MCG/2 ML AMP IVP PRN (11:45)
[2017-10-16] MEDS ORDERED: LABETALOL HCL 20 MG/4 ML VIAL ONE (12:38)
[2017-10-16] MEDS: DILTIAZEM 240 MG (CARDIZEM CD) CAP PO SCH (13:06)
[2017-10-16] MEDS ORDERED: LACTATED RINGERS 1,000 ML IV ONE (13:21)
[2017-10-16] MEDS ORDERED: GLYCOPYRROLATE 0.2 MG/ML (ROBINUL) 2 ML VIAL ONE (13:37)
[2017-10-16] MEDS ORDERED: NEOSTIGMINE 1 MG/ML 5 ML SYRINGE ONE (13:37)
--- NOTE | 2017-10-16 13:43 | Progress Note-Post Operative ---
Post-Operative Progess Note Surgeon (s)/Mechanical Spreader Operator (s) Surgeon HAWK GREENWOOD MD Mechanical Spreader Operator: juan dejesus DIRECTOR GIFT Pre-Operative Diagnosis symptomatic chronic calculous cholecystitis Post-Operative Diagnosis same Procedure & Operative Findings Date of Procedure 10/16/17 Procedure Performed/Findings laparoscopic cholecystectomy. Anesthesia Type GET Estimated Blood Loss Estimated blood loss (mL): minimal Specimens/Packing Specimens Removed gallbladder HAWK GREENWOOD MD Oct 16, 2017 13:43
[2017-10-16] MEDS: fentaNYL INJECTION 100 MCG/2 ML AMP IVP PRN ×2 (14:25→14:30)
[2017-10-16] MEDS ORDERED: RT-ALBUTEROL SULF 2.5 MG/3 ML PRE-MIX VIAL ONE (15:03)
[2017-10-16] MEDS ORDERED: RT-ALBUTEROL SULF 2.5 MG/3 ML PRE-MIX VIAL INH ONE (15:15)
[2017-10-16 16:00] VITALS: BP 138/76
[2017-10-16] MEDS: LACTATED RINGERS 1,000 ML IV SCH ×2 (18:09→20:54)
--- NOTE | 2017-10-16 18:25 | OPERATIVE REPORT ---
DATE OF SERVICE: 10/16/2017 ATTENDING PRIMARY CARE PHYSICIAN: Dr. Hutton. PREOPERATIVE DIAGNOSIS: Symptomatic chronic calculous cholecystitis. POSTOPERATIVE DIAGNOSIS: Symptomatic chronic calculous cholecystitis. PROCEDURE: Laparoscopic cholecystectomy. SURGEON: Dr. Greenwood. ANESTHESIA: General endotracheal. ESTIMATED BLOOD LOSS: Minimal. FINDINGS: Hepatomegaly with a significant gallbladder wall thickening with multiple stones. DISPOSITION: The patient tolerated the procedure well. The patient is a 66-year-old male known to us. He has a multitude of medical problems including COPD, hypertension, hypercholesterolemia, history of myocardial infarction in 11/2015, coronary artery disease and diabetes. He also has had previous gastrointestinal symptoms and underwent an EGD and colonoscopy 08/30/2016 and found to have a reflux esophagitis class B, small hiatal hernia as well as a moderate severity gastritis. 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 He was treated medically. Colonoscopy showed moderate sigmoid diverticulosis as well as a small polyp of the splenic flexure, which was benign. He has had pain in the right upper abdominal quadrant with associated nausea and vomiting. This has been an ongoing issue. He was seen for this as an inpatient on 04/29/2017 during admission for exacerbation of COPD. CT scan did show gallbladder wall thickening as well as gallstones. He had reported that he has had this type of discomfort, as well as the nausea and vomiting for the past 10 years; however, this has become much more frequent as well as much more severe. An ultrasound was performed of the gallbladder as well, which again showed gallbladder wall thickening as well as cholelithiasis. Due to his progressive symptomatology of his gallbladder and risk of acute cholecystitis, he would like to have his gallbladder removed on this admission. He does have significant risk factors and we will continue to consult pulmonology, cardiology as well as internal medicine and proceed with a close monitoring with aggressive pulmonary support. DESCRIPTION OF PROCEDURE: The patient was brought to the operating room, laid supine on the table. After adequate IV pain and sedating medications and general endotracheal intubation, the abdomen was prepped and draped in standard surgical fashion. A 0.5% Marcaine with epinephrine was used to anesthetize the overlying skin in the left upper abdominal quadrant. A small transverse skin incision was made using 15 blade. An 0 silk suture was applied to the medial aspect of the incision for retraction and a Veress needle inserted with a low opening pressure of 0 mmHg and the abdomen was then insufflated to 15 mmHg pressure. The Veress needle was removed and a 5 mm Xcel trocar placed followed by a 5 mm 45-degree angle laparoscope visualizing the peritoneal cavity. A four-quadrant abdominal exploration was performed. Hepatomegaly was identified as well as a very thick omentum and mesentery. Under direct visualization, we then proceed to place a supraumbilical 10 mm port after the skin and peritoneal lining were anesthetized using 0.5% Marcaine with epinephrine and a transverse skin incision was made using a 15 blade. In a similar manner, 2 right upper abdominal quadrant 5 mm ports were placed. The patient was then placed in steep reverse Trendelenburg position as well as placed right side up, left side down. The gallbladder fundus was then retracted anteriorly and superiorly and the neck retracted right lateral. The hepatoduodenal ligament was then opened using electrocautery on the hook instrument as well as blunt dissection. The entire critical view of safety was identified including the triangle of Calot as well as the cystic duct and artery as the only two structures going into the gallbladder as well as the cystic plate behind the proximal gallbladder. A timeout was then taken and the cystic duct and artery were then clipped proximally and distally and cut with EndoShears. The gallbladder was then dissected off the liver bed using electrocautery and hook instrument with visualization of good hemostasis as well as no leaking ducts of [place]. FloSeal was then placed in the hepatic bed due to his recent administration of anticoagulation. Good hemostasis was observed. The gallbladder was removed through the 10 mm port site using an EndoCatch bag. The gallbladder was examined on the back table with visualization of a thick gallbladder wall as well as multiple gallstones. The fascia and peritoneum to the 10 mm port were then closed under direct visualization using Nik-Katja device and 0 Vicryl suture. The abdomen was desufflated and remaining ports were removed. All skin incisions were closed using 4-0 Monocryl running subcuticular sutures. Wounds were then cleaned and covered with Dermabond. The patient tolerated the procedure well. We will admit him back to the floor. We will again start with aggressive respiratory therapy with breathing treatments as well as incentive spirometry as well as early ambulation and sitting upright. We will also continue with DVT prophylaxis with calf SCDs and restarting of his Eliquis. Job ID: [id number] DocumentID: [id number] Dictated Date: 10/16/2017 13:55:42 Modeling Teacher Date: 10/16/2017 18:25:23 Dictated By: HAWK GREENWOOD MD
[2017-10-16 20:00] VITALS: BP 169/71
[2017-10-16] MEDS: MONTELUKAST 10 MG (SINGULAIR) TAB PO SCH (20:55)
[2017-10-16] MEDS: LIDOCAINE PATCH REMOVAL TP SCH (20:59)
[2017-10-17] VITALS: BP 139/67
[2017-10-17] MEDS: methylPREDNISolone 40 MG/ML (Solu-MEDROL) VIAL IV SCH ×2 (00:29→06:28)
[2017-10-17 04:00] VITALS: BP 124/84
[2017-10-17] MEDS: PIPERACILLIN SODIUM/TAZOBACTAM 4.5 GM in NS (IVPB) 100 ML IV SCH (04:46)
[2017-10-17] MEDS: KCL 10 MEQ TAB (MICRO K) PO SCH (06:28)
[2017-10-17] MEDS: LACTATED RINGERS 1,000 ML IV SCH (06:28)
[2017-10-17] MEDS: inSUlin ASPART (NovoLOG) 1 UNIT/0.01 ML (CHARGE PER UNIT) SC SCH ×2 (06:28)
[2017-10-17] MEDS: LEVOTHYROXINE 25 MCG (LEVOTHROID) TAB PO SCH (06:29)
--- NOTE | 2017-10-17 06:42 | Pulmonary Progress Note ---
Subjective Time Seen by Provider: 06:40 Subjective/Events-last exam No complications noted. Pt did well with surgery. Exam Exam Vital Signs Date Time Temp Pulse Resp B/P (MAP) Pulse Ox O2 Delivery O2 Flow Rate FiO2 10/17/17 01:00 65 10/17/17 00:00 98.4 68 22 139/67 (91) 92 NIV CPAP 4.00 10/16/17 21:00 Nasal Cannula 2.00 10/16/17 20:00 96.8 76 18 169/71 (103) 98 Nasal Cannula 4.00 10/16/17 19:36 94 Nasal Cannula 4.00 10/16/17 19:36 94 Nasal Cannula 4.00 10/16/17 19:00 64 10/16/17 16:00 96.9 62 16 138/76 (96) 94 OxyMask 10/16/17 15:32 Room Air 10/16/17 08:00 96.2 70 20 136/68 (90) Nasal Cannula 2.00 10/16/17 07:05 94 Nasal Cannula 2.00 I & O 10/17/17 07:00 Intake Total 3800 ml Output Total 1850 ml Balance 1950 ml General Appearance: No Apparent Distress, Chronically ill, Obese HEENT: Moist Mucous Membranes, No Scleral Icterus (L), No Scleral Icterus (R) Neck: No Supple, No JVD, No Thyromegaly Respiratory: Lungs Clear, No Respiratory Distress, Other (on oxygen) Cardiovascular: Regular Rate, Rhythm, No Murmur Extremity: Non Tender, No Calf Tenderness Neurologic/Psychiatric: Alert, Oriented x3 Skin: Normal Color, Warm/Dry Lymphatic: No Adenopathy Results Lab Laboratory Tests 10/15/17 11:04 10/16/17 06:35 Assessment/Plan Assessment/Plan Symptomatic chronic calculous cholecystitis with worsening symptoms -S/p surgery - pt did well. No complications noted. COPD with persistent cough- -Solumedrol-- D/C -SVNs Morbid obesity with JOSE MANUEL -Home CPAP Chronic Afib and CAD -Cardiology following CKD IDDM Will have pt f/u with me in 1-2 wks. RAIMUNDO MATTHEWS DO Oct 17, 2017 06:42
[2017-10-17 08:00] VITALS: BP 146/88
[2017-10-17] MEDS: ADVAIR HFA 115/21 MCG INHALER 8 GM IH SCH (08:07)
[2017-10-17] MEDS: RT-ALBUTEROL/IPRATROPIUM 3 ML (DUONEB) VIAL INH SCH (08:07)
--- NOTE | 2017-10-17 08:17 | Discharge Inst-Simple/Standard ---
Discharge Inst-Standard Discharge Medications New, Converted or Re-Newed RX: Other Patient Instructions/Follow Up Plan of Care/Instructions/FU: Please continue to take your medications as written. You can resume you Eliquis tomorrow as you normally take it. Please follow up with Dr Whitney in 1-[address] Joy in 2 weeks. Please follow up with Dr Hutton as scheduled. If your symptoms return or worse please seek evaluation. Activity as Tolerated: Yes Discharge Diet: ADA Diet, Cardiac Diet BRANDEN DELACRUZ MD Oct 17, 2017 08:17
--- NOTE | 2017-10-17 08:56 | Discharge Summary-Hospitalist ---
Diagnosis/Chief Complaint Date of Admission Oct 15, 2017 at 10:07 am Date of Discharge Admission Diagnosis Cough Discharge Diagnosis Cough (1) Cholecystitis Assessment & Plan: Dr Joy consulted, chapin barker Underwent cholecystectomy on 10/16 (2) Cough Status: Resolved Assessment & Plan: MAT Protocol Pulm consulted, chapin barker (3) Chronic atrial fibrillation Status: Chronic Assessment & Plan: Holding anticoagulation for surgery (4) COPD (chronic obstructive pulmonary disease) Status: Chronic Assessment & Plan: Continue home inhalers Pulm consulted (5) IDDM (insulin dependent diabetes mellitus) Status: Chronic Assessment & Plan: Continue home insulin (6) Essential (primary) hypertension Status: Chronic Assessment & Plan: Continue home meds (7) Hypothyroidism Status: Chronic Assessment & Plan: Continue home synthroid (8) CAD (coronary artery disease) Status: Chronic Assessment & Plan: Cardiology consulted, chapin barker No chest pain Discharge Summary Consultations Dr Chelo Joy Discharge Physical Examination Allergies: Coded Allergies: [id number] Reductase Inhibitor (Verified Allergy, Unknown, 10/15/17) codeine (Verified Allergy, Unknown, 10/15/17) fish oil (Verified Allergy, Unknown, 10/15/17) Vitals & I&Os Vital Signs Date Time Temp Pulse Resp B/P (MAP) Pulse Ox O2 Delivery O2 Flow Rate FiO2 10/17/17 09:00 Nasal Cannula 2.00 10/17/17 08:11 97 10/17/17 08:00 97.0 74 18 146/88 (107) 10/15/17 11:38 28 Hospital Course Pt is a 66yoCM who was direct admitted by his PCP Dr Pat due to complaints of cough. He has COPD and CHF with chronic oxygen requirement. He underwent work up for pna and respiratory infection which were both negative. He was to have a cholecystectomy done on 10/18/[address] Joy but has was admitted currently and pain may have been contributing to SOB he underwent cholecystectomy on 10/16 without incident. Today he reported he was breathing better and was able to sleep well without any pain. He requested discharge today as he was feeling well. Discussed with consulted who were in agreement. Labs (last 24 hrs) Laboratory Tests 10/16/17 14:36: Glucometer 291H 10/16/17 16:04: Glucometer 348H 10/16/17 20:46: Glucometer 499*H 10/17/17 06:23: Glucometer 224H Microbiology 10/15/17 Blood Culture - Preliminary, Resulted No growth 10/15/17 MRSA Screen - Final, Complete MRSA not isolated Pending Labs Laboratory Tests 10/17/17 06:23: Glucometer 224 Discussion & Recommendations Discharge Planning: >30 minutes discharge planning Discharge Home Medications: Active Scripts Active Reported Ex-Lax (Sennosides) 15 Mg Tablet 5 Tab PO DAILY PRN Colace (Docusate Sodium) 100 Mg Capsule 500 Mg PO DAILY PRN Lactulose 10 Gm/15 Ml Solution 2 Tbs PO Q4H PRN Lidocaine 1 Each Adh..patch 1 Patch TP DAILY 5% Finasteride 5 Mg Tablet 2.5 Mg PO HS TAKES 1/2 (5MG) TABLET Levemir Flextouch (Insulin Detemir) 100 Unit/1 Ml Insuln.pen 20 Units SC BID Metolazone 5 Mg Tablet 5 Mg PO DAILY Furosemide 40 Mg Tablet 80 Mg PO DAILY Spironolactone 25 Mg Tablet 50 Mg PO DAILY Meloxicam 15 Mg Tablet 15 Mg PO DAILY Humalog Kwikpen (Insulin Lispro) 100 Unit/1 Ml Insuln.pen 50 Units SQ ACHS Potassium Chloride 10 Meq Tablet.er 20 Meq PO BID TAKES 2 (10MEQ) TABLETS Tamsulosin HCl 0.4 Mg Cap.er.24h 0.4 Mg PO DAILY Montelukast Sodium 10 Mg Tablet 10 Mg PO HS Eliquis (Apixaban) 5 Mg Tablet 5 Mg PO BID Rosuvastatin Calcium 5 Mg Tablet 5 Mg PO DAILY Dilt-Xr (Diltiazem HCl) 240 Mg Cap.er.deg 240 Mg PO DAILY Advair 500-50 Diskus (Fluticasone/Salmeterol) 1 Each Blst.w.dev 1 Puff IH BID Clopidogrel (Clopidogrel Bisulfate) 75 Mg Tablet 75 Mg PO DAILY Metoprolol Succinate 50 Mg Tab.er.24h 50 Mg PO DAILY Lortab 7.5 Mg Tablet (Acetaminophen/Hydrocodone Bitart) 1 Each Tablet 1 Tab PO Q6H PRN Ventolin Hfa (Albuterol Sulfate) 18 Gm Hfa.aer.ad 1 Puff IH Q4H PRN Albuterol Sulfate 2.5 Mg/3 Ml Vial.neb 2.5 Mg NEB QID Levothyroxine Sodium 25 Mcg Tablet 25 Mcg PO DAILY Zyrtec-D Tablet (Cetirizine HCl/Pseudoephedrine) 1 Each Tab.er.12h 1 Tab PO DAILY Spiriva Respimat 2.5MCG/ACTUATION (Tiotropium [place]) 4 Gm Mist.inhal 2 Puff IH DAILY Instructions to patient/family Please see electronic discharge instructions given to patient. Clinical Quality Measures DVT/VTE Risk/Contraindication: Risk Factor Score Per Nursin RFS Level Per Nursing on Admit: 4+=Very High Copy Copies To 1: CHAO PAT DO Problem Qualifiers (1) COPD (chronic obstructive pulmonary disease): COPD type: unspecified COPD Qualified Codes: J44.9 - Chronic obstructive pulmonary disease, unspecified (2) Hypothyroidism: Hypothyroidism type: unspecified Qualified Codes: E03.9 - Hypothyroidism, unspecified (3) CAD (coronary artery disease): Coronary Disease-Associated Artery/Lesion type: [place] artery [place] vs. transplanted heart: [place] heart Associated angina: without angina Qualified Codes: I25.10 - Atherosclerotic heart disease of [place] coronary artery without angina pectoris BRANDEN DELACRUZ MD Oct 17, 2017 08:56
[2017-10-17] MEDS: SPIRONOLACTONE 25 MG (ALDACTONE) TAB PO SCH (09:14)
[2017-10-17] MEDS: METOLAZONE 5 MG (ZAROXOLYN) TAB PO SCH (09:14)
[2017-10-17] MEDS: ROSUVASTATIN 5 MG (CRESTOR) TABLET PO SCH (09:14)
[2017-10-17] MEDS: meTOproloL SUCCINATE 50 MG (TOPROL XL) TAB PO SCH (09:15)
[2017-10-17] MEDS: DILTIAZEM 240 MG (CARDIZEM CD) CAP PO SCH (09:15)
[2017-10-17] MEDS: PSEUDOEPHEDRINE HCL 30 MG (SUDAFED) TAB PO SCH (09:15)
[2017-10-17] MEDS: FUROSEMIDE 40 MG (LASIX) TAB PO SCH (09:15)
[2017-10-17] MEDS: TAMSULOSIN 0.4 MG (FLOMAX) CAP PO SCH (09:15)
[2017-10-17] MEDS: inSUlin DETERMIR 1 UNIT/0.01 ML (LEVEMIR) CHARGE PER UNIT SQ SCH (09:16)
[2017-10-17] MEDS: LIDOCAINE (LIDODERM) 5% PATCH TP SCH (09:19)
[2017-10-17] MEDS: LORATADINE (CLARITIN) 10 MG TAB PO SCH (09:19)
--- NOTE | 2017-10-17 10:18 | Progress Note-Cardiology ---
Cardiology SOAP Progress Note Subjective: Shortness of breath back to usual baseline today No cp or palp or syncope Chronic mild to mod leg swelling as before Objective: I&O/Vital Signs Vital Sign - Last 12Hours 10/17/17 10/17/17 10/17/17 10/17/17 00:00 01:00 04:00 07:00 Temp 98.4 97.8 Pulse 68 65 82 74 Resp 22 19 B/P (MAP) 139/67 (91) 124/84 (97) Pulse Ox 92 94 O2 Delivery NIV CPAP NIV CPAP O2 Flow Rate 4.00 4.00 10/17/17 10/17/17 10/17/17 10/17/17 08:00 08:08 08:10 08:11 Temp 97.0 Pulse 74 Resp 18 B/P (MAP) 146/88 (107) Pulse Ox 94 97 97 97 O2 Delivery NIV CPAP Nasal Cannula Nasal Cannula Nasal Cannula O2 Flow Rate 4.00 4.00 4.00 Intake and Output 10/17/17 00:00 Intake Total 3300 ml Output Total 1250 ml Balance 2050 ml Weight (Pounds): 378 Weight (Ounces): 4.0 Weight (Calculated Kilograms): [id number] Constitutional: AAO x 3, well-developed, well-nourished Respiratory: No accessory muscle use, No respiratory distress, chest expansion is symmetric, other (good air entry) Cardiovascular: irregularly irregular, No JVD, S1 and S2, systolic murmur Gastrointestional: No soft, No round, audible bowel sounds Extremities: significant edema (2 (+) bilat pedal/ankle edema) Neurologic/Psychiatric: grossly intact, power is 5/5 both on sides Skin: rash (left posterior foream with macular/papular rash with excoriations) Results/Procedures: Labs Laboratory Tests 10/16/17 10:45: Glucometer 305H 10/16/17 14:36: Glucometer 291H 10/16/17 16:04: Glucometer 348H 10/16/17 20:46: Glucometer 499*H 10/17/17 06:23: Glucometer 224H Microbiology 10/15/17 Blood Culture - Preliminary, Resulted No growth 10/15/17 MRSA Screen - Final, Complete MRSA not isolated Laboratory Tests 10/15/17 11:04 10/16/17 06:35 A/P: Assessment: Dyspnea, multi-factorial (see below) Mobid obesity with BMI approx 57 Obesity hypoventilation Chronic intermittent diastolic CHF Persistent a-fib first diagnosed in early February 2016, rate controlled COPD Quit smoking in early Cholecystitis - s/p laparoscopic cholecystectomy on 10/16/[address] Joy Recurrent leg cellulitis in Sep 2017 OAC with Eliquis CAD with a h/o CABG in 2006 at [facility] in [place], [place]. On cardiac cath of 11-11-15: Multivessel coronary disease including multiple more than 90% stenosis of the proximal and mid left anterior descending artery. The mid to distal left anterior descending artery is protected with a widely patent left internal mammary artery graft. The left circumflex artery had 99% ostial/ proximal stenosis to which successful stenting was carried out with Promus Premier 3.5 x 20 mm stent with a reduction of stenosis to 0% residual. The distal left circumflex and its obtuse marginal branches have diffuse moderate to moderately severe disease which were not intervened on. The right coronary artery is dominant and had 90% proximal stenosis to which successful stenting was carried out with Promus Premier 2.75 x 28 mm stent with reduction of stenosis to 0% residual. The distal right coronary artery has multiple stenoses of 50 to 60%, which were not intervened on. Cardiac cath of 11-11-15 showed well preserved global left ventricular systolic function and ejection fraction of 55 to 60%. Elevated left ventricular end- diastolic pressure which was measured at approximately 20 mmHg. No significant mitral regurgitation. ABIs on 01/13/16 at [place], [place]: 1.1 on both sides Echocardiogram of 09/14/17 (Dr Costello): LVEF 55-65%, dilated LA, supotimal study Chronic bilat leg swelling, likely due to venous insuff, no evidence of DVT on on venous duplex of 09/13/17 Hypertension Obesity-hypoventilation syndrome DM II Diabetic R foot ulcer, being managed by Dr Estrella Chronic renal insufficiency - chronic likely due in some part to diabetic nephropathy Sleep apnea syndrome - CPAP therapy - managed by Dr. Paris Minimal carotid dz on u/s of November 2015 Plan: Resume Eliquis this evening and Plavix in am, if OK with the Surgical Svce Monitor labs I spoke with him and answered CV-related questions and management plan CATY PENALOZA MD FACP FACC CCDS Oct 17, 2017 10:18
--- NOTE | 2017-10-17 14:30 | Anesthesia-General Post-Op ---
General Patient Condition Mental Status/LOC: Same as Preop Cardiovascular: Satisfactory Nausea/Vomiting: Absent Respiratory: Satisfactory Pain: Controlled Complications: Absent Post Op Complications Complications None Follow Up Care/Instructions Patient Instructions None needed. Anesthesia/Patient Condition Patient Condition Patient is doing well, no complaints, stable vital signs, no apparent adverse anesthesia problems. No complications reported per nursing. RUMA DAVIS CRNA Oct 17, 2017 14:30
[2017-10-17] MEDS ORDERED: APIXABAN 5 MG (ELIQUIS) TABLET PO SCH ×2 (21:00→21:15)
[2017-10-18] MEDS ORDERED: APIXABAN 5 MG (ELIQUIS) TABLET PO SCH (08:45)
[2017-10-18] MEDS ORDERED: CLOPIDOGREL 75 MG (PLAVIX) TABLET PO SCH ×3 (09:00)
== END 2017-10-17 10:35 | disposition home or self-care (01) ==
LOC: 4TH 10:07 → SDC 10:07 → 4TH 10:07 → UNDOADMOB 10:07 → INTOOBSV 10:07 → 4TH 15:49 → UNDODISOB 10-17 10:35 → SDC 10-17 10:35
PROVIDERS: ATTEND Internal Medicine
DX: K80.10 Calculus of gallbladder with chronic cholecystitis without obstruction (principal); R16.0 Hepatomegaly, not elsewhere classified; K21.0 Gastro-esophageal reflux disease with esophagitis; K44.9 Diaphragmatic hernia without obstruction or gangrene; K29.70 Gastritis, unspecified, without bleeding; K22.70 Barrett's esophagus without dysplasia; E11.22 Type 2 diabetes mellitus with diabetic chronic kidney disease; I12.9 Hypertensive chronic kidney disease with stage 1 through stage 4 chronic kidney disease, or unspecified chronic kidney disease; N18.9 Chronic kidney disease, unspecified; E66.2 Morbid (severe) obesity with alveolar hypoventilation; Z68.43 Body mass index [BMI] 50.0-59.9, adult; R60.0 Localized edema; I50.32 Chronic diastolic (congestive) heart failure; I25.10 Atherosclerotic heart disease of native coronary artery without angina pectoris; I48.2 Chronic atrial fibrillation; J44.9 Chronic obstructive pulmonary disease, unspecified; E03.9 Hypothyroidism, unspecified; E78.00 Pure hypercholesterolemia, unspecified; R05 Cough; I25.2 Old myocardial infarction; Z79.4 Long term (current) use of insulin; Z87.891 Personal history of nicotine dependence; Z95.1 Presence of aortocoronary bypass graft; Z95.5 Presence of coronary angioplasty implant and graft
CPT/HCPCS: 36415; 71046; 80053; 82805; 82962; 83605; 83880; 84484; 85007; 85025; 85027; 87040; 87081; 93005; 94640; 94760; 99211

== ENCOUNTER 2017-10-22 21:16 | Emergency (ER) | payer OTHER, MEDICARE ==
[~2017-10-22] VITALS: Ht 172.7 cm; Wt 173.7 kg
[~2017-10-22 21:16] MED LIST changes: +DOCU-143 PO; +SENN15TA PO
[2017-10-22 23:15] LABS: BASOPHILS # (AUTO) 0.1 10^3/uL (0.0-0.1); BASOPHILS % (AUTO) 0 % (0-10); EOSINOPHILS # (AUTO) 0.3 10^3/uL (0.0-0.3); EOSINOPHILS % (AUTO) 2 % (0-10); HEMATOCRIT 39 % (40-54); HEMOGLOBIN 12.7 G/DL (13.3-17.7); LYMPHOCYTES # (AUTO) 1.5 X 10^3 (1.0-4.0); LYMPHOCYTES % (AUTO) 9 % (12-44); MEAN CORPUSCULAR HEMOGLOBIN 28 PG (25-34); MEAN CORPUSCULAR HGB CONC 33 G/DL (32-36); MEAN CORPUSCULAR VOLUME 85 FL (80-99); MEAN PLATELET VOLUME 9.8 FL (7.4-10.4); MONOCYTES # (AUTO) 1.6 X 10^3 (0.0-1.0); MONOCYTES % (AUTO) 10 % (0-12); NEUTROPHILS # (AUTO) 12.9 X 10^3 (1.8-7.8); NEUTROPHILS % (AUTO) 79 % (42-75); PLATELET COUNT 297 10^3/uL (130-400); RED BLOOD COUNT 4.55 10^6/uL (4.35-5.85); RED CELL DISTRIBUTION WIDTH 16.5 % (10.0-14.5); WHITE BLOOD COUNT 16.3 10^3/uL (4.3-11.0)
[2017-10-22 23:28] LABS: BAND NEUTROPHILS 0 %; BASOPHILS % (MANUAL) 0 %; EOSINOPHILS % (MANUAL) 2 %; LYMPHOCYTES % (MANUAL) 5 %; MONOCYTES % (MANUAL) 8 %; NEUTROPHILS % (MANUAL) 85 %; RBC MORPH NORMAL
--- NOTE | 2017-10-22 23:41 | ED EENT ---
History of Present Illness General Chief Complaint: Nasal Problems Stated Complaint: BLOODY NOSE/ON BLOOD THINNERS Nursing Triage Note: pt reports nose bleed starting at 1730. resolved while in the waiting room. reports it was bleeding 4 approx 4 hours. Source: patient Exam Limitations: no limitations History of Present Illness Date Seen by Provider: Oct 22, 2017 Time Seen by Provider: 22:00 Initial Comments Here with report of nosebleed that started about 530 p.m. States that it persisted for several hours until arrival here. He is on blood thinners. He is oxygen dependent. He did call his doctor who instructed him to come to the ER for the persistent nosebleed. He has skipped his dose of eliquis tonight. He did take his Plavix this morning. Had gallbladder surgery last week. Seen by his provider today and started on prednisone for probable COPD exacerbation. Lungs are improved now. Denies fevers. Nose bleeding has stopped at time of arrival. Timing/Duration: abrupt Severity: moderate Location: nose Prearrival Treatment: squeezing nostrils Associated Symptoms: cough, No fever, No sinus infection Allergies and Home Medications Allergies Coded Allergies: Vokuhib-Osq-Ajc Reductase Inhibitor (Verified Allergy, Unknown, 10/15/17) codeine (Verified Allergy, Unknown, 10/15/17) fish oil (Verified Allergy, Unknown, 10/15/17) Home Medications Albuterol Sulfate 2.5 Mg/3 Ml Vial.neb, 2.5 MG NEB QID, (Reported) Albuterol Sulfate 18 Gm Hfa.aer.ad, 1 PUFF IH Q4H PRN for SHORTNESS OF BREATH, ( Reported) Apixaban 5 Mg Tablet, 5 MG PO BID, (Reported) Cetirizine HCl/Pseudoephedrine 1 Each Tab.er.12h, 1 TAB PO DAILY, (Reported) Clopidogrel Bisulfate 75 Mg Tablet, 75 MG PO DAILY, (Reported) Diltiazem HCl 240 Mg Cap.er.deg, 240 MG PO DAILY, (Reported) Docusate Sodium 100 Mg Capsule, 500 MG PO DAILY PRN for CONSTIPATION-1ST LINE, ( Reported) Finasteride 5 Mg Tablet, 2.5 MG PO HS, (Reported) TAKES 1/2 (5MG) TABLET Fluticasone/Salmeterol 1 Each Blst.w.dev, 1 PUFF IH BID, (Reported) Furosemide 40 Mg Tablet, 80 MG PO DAILY, (Reported) Hydrocodone Bit/Acetaminophen 1 Each Tablet, 1 TAB PO Q6H PRN for PAIN-MODERATE, (Reported) Insulin Detemir 100 Unit/1 Ml Insuln.pen, 20 UNITS SC BID, (Reported) Insulin Lispro 100 Unit/1 Ml Insuln.pen, 50 UNITS SQ ACHS, (Reported) Lactulose 10 Gm/15 Ml Solution, 2 TBS PO Q4H PRN for CONSTIPATION-3RD LINE, ( Reported) Levothyroxine Sodium 25 Mcg Tablet, 25 MCG PO DAILY, (Reported) Lidocaine 1 Each Adh..patch, 1 PATCH TP DAILY, (Reported) 5% Meloxicam 15 Mg Tablet, 15 MG PO DAILY, (Reported) Metolazone 5 Mg Tablet, 5 MG PO DAILY, (Reported) Metoprolol Succinate 50 Mg Tab.er.24h, 50 MG PO DAILY, (Reported) Montelukast Sodium 10 Mg Tablet, 10 MG PO HS, (Reported) Potassium Chloride 10 Meq Tablet.er, 20 MEQ PO BID, (Reported) TAKES 2 (10MEQ) TABLETS Rosuvastatin Calcium 5 Mg Tablet, 5 MG PO DAILY, (Reported) Sennosides 15 Mg Tablet, 5 TAB PO DAILY PRN for CONSTIPATION-2ND LINE, (Reported ) Spironolactone 25 Mg Tablet, 50 MG PO DAILY, (Reported) Tamsulosin HCl 0.4 Mg Cap.er.24h, 0.4 MG PO DAILY, (Reported) Tiotropium [place] 4 Gm Mist.inhal, 2 PUFF IH DAILY, (Reported) Patient Home Medication List Home Medication List Reviewed: Yes Review of Systems Constitutional: see HPI, No chills, No fever Eyes: No Symptoms Reported Nose: see HPI, clots, epistaxis, denies pain Mouth: no symptoms reported Throat: no symptoms reported Respiratory: see HPI, cough, wheezing Cardiovascular: no symptoms reported Gastrointestinal: No abdominal pain, No nausea, No vomiting Past Tgwjnwf-Kwamhl-Sstots Hx Patient Social History Alcohol Use: Rarely Uses Number of Drinks Today: GG Alcohol Beverage of Choice: Whiskey Recreational Drug Use: No Smoking Status: Former Smoker Type Used: Cigarettes Former Smoker, Quit: Aug 13, 1996 Recent Foreign Travel: No Contact w/Someone Who Travel: No Recent Infectious Disease Expo: No Recent Hopitalizations: No Physical Abuse: No Sexual Abuse: No Mistreated: No Fear: No Immunizations Up To Date Tetanus Booster (TDap): Less than 5yrs PED Vaccines UTD: Yes Date of Pneumonia Vaccine: Jan 11, 2017 Date of Influenza Vaccine: May 13, 2017 Seasonal Allergies Seasonal Allergies: Yes Surgeries History of Surgeries: Yes Surgeries: Adenoidectomy, Cardiac, CABG, Coronary Stent, Tonsillectomy, Transurethral Resection, Vasectomy Respiratory History of Respiratory Disorde: Yes Respiratory Disorders: Asthma, Pneumonia, Sleep Apnea, COPD Currently Using CPAP: Yes Currently Using BIPAP: No Cardiovascular History of Cardiac Disorders: Yes Cardiac Disorders: Atrial Fibrillation, Chronic Edema/Swelling, Coronary Artery Disease, Heart Attack, High Cholesterol, Hypertension Neurological History of Neurological Disord: No Neurological Disorders: Neuropathy Reproductive System Hx Reproductive Disorders: No Genitourinary History of Genitourinary Disor: Yes Genitourinary Disorders: Prostate Problems, Bladder Infection, UTI-Chronic Gastrointestinal History of Gastrointestinal Di: Yes Gastrointestinal Disorders: Chronic Constipation Musculoskeletal History of Musculoskeletal Dis: Yes Musculoskeletal Disorders: Degenerate Disk Disease, Arthritis, Chronic Back Pain Endocrine History of Endocrine Disorders: Yes Endocrine Disorders: Diabetes, Insulin dep, Hypothyroidsim HEENT History of HEENT Disorders: Yes HEENT Disorders: Cataract Loss of Vision: Denies Hearing Impairment: Hard of Hearing Cancer History of Cancer: No Psychosocial History of Psychiatric Problem: Yes Behavioral Health Disorders: Sleep Difficulties, Anxiety Suicide Risk Score: 0 Integumentary History of Skin or Integumenta: Yes Skin/Integumentary Disorders: Pruritis Blood Transfusions History of Blood Disorders: No Adverse Reaction to a Blood Tr: No Reviewed Nursing Assessment Reviewed/Agree w Nursing PMH: Yes Family Medical History Significant Family History: Asthma, Heart Disease, Hypertension Family Medial History: Cancer 03 FATHER Congestive heart failure 03 MOTHER Family history: Arthritis 03 MOTHER Family history: Asthma 03 MOTHER Family history: Cardiovascular disease 03 MOTHER Family history: Diabetes mellitus 09 BROTHER Family history: Gastrointestinal disease 03 FATHER History of drug abuse 09 BROTHER Physical Exam Vital Signs Vital Signs - First Documented 10/22/17 21:56 Temp 98.5 Pulse 85 Resp 22 B/P (MAP) 150/68 (95) General Appearance: WD/WN, no apparent distress Nose: No active bleeding, dried blood (left near), No sinus tenderness Mouth/Throat: pharynx normal, No voice changes Neck: full range of motion, supple Cardiovascular: regular rate, rhythm, no murmur Respiratory: no respiratory distress, no accessory muscle use, wheezing (a few trace wheezes scattered throughout) Neurologic/Psychiatric: alert, oriented x 3 Skin: normal color, warm/dry Laceration Repair : Suture Size: 4-0 Progress/Results/Core Measures Results/Orders Lab Results Laboratory Tests Test 10/22/17 23:06 Range/Units White Blood Count 16.3 H 4.3-11.0 10^3/uL Red Blood Count 4.55 4.35-5.85 10^6/uL Hemoglobin 12.7 L 13.3-17.7 G/DL Hematocrit 39 L 40-54 % Mean Corpuscular Volume 85 80-99 FL Mean Corpuscular Hemoglobin 28 25-34 PG Mean Corpuscular Hemoglobin Concent 33 32-36 G/DL Red Cell Distribution Width 16.5 H 10.0-14.5 % Platelet Count 297 130-400 10^3/uL Mean Platelet Volume 9.8 7.4-10.4 FL Neutrophils (%) (Auto) 79 H 42-75 % Lymphocytes (%) (Auto) 9 L 12-44 % Monocytes (%) (Auto) 10 0-12 % Eosinophils (%) (Auto) 2 0-10 % Basophils (%) (Auto) 0 0-10 % Neutrophils # (Auto) 12.9 H 1.8-7.8 X 10^3 Lymphocytes # (Auto) 1.5 1.0-4.0 X 10^3 Monocytes # (Auto) 1.6 H 0.0-1.0 X 10^3 Eosinophils # (Auto) 0.3 0.0-0.3 10^3/uL Basophils # (Auto) 0.1 0.0-0.1 10^3/uL Neutrophils % (Manual) 85 % Lymphocytes % (Manual) 5 % Monocytes % (Manual) 8 % Eosinophils % (Manual) 2 % Basophils % (Manual) 0 % Band Neutrophils 0 % Blood Morphology Comment NORMAL My Orders Orders - CIRILO PAEZ MD Cbc With Automated Diff (10/22/17 22:00) Manual Differential (10/22/17 23:06) Vital Signs/I&O Vital Sign - Last 12Hours 10/22/17 21:56 Temp 98.5 Pulse 85 Resp 22 B/P (MAP) 150/68 (95) Blood Pressure Mean: 95 Progress Note : Progress Note Seen at triage. CBC ordered. For evaluation after being roomed. CBC shows blood counts improved with respect to hemoglobin from last week. White count is elevated but he is on steroids now. Bleeding has remained stopped. He has kept his oxygen and his mouth and that is working to keep his O2 saturations in normal range. I did reevaluate the nose and he has no active bleeding. Nasal clamp was given in case bleeding returned. Instructions were given. Discharge home with return precautions. Patient verbalize understanding instructions and agreement with plan. Departure Impression Impression: Primary Impression: Epistaxis Disposition: HOME, SELF-CARE Condition: Improved Departure-Patient Inst. Decision time for Depature: 23:48 Referrals: CHAO PAT DO (PCP/Family) Primary Care Physician Patient Instructions: Nosebleeds (DC) Add. Discharge Instructions: All discharge instructions reviewed with patient and/or family. Voiced understanding. Use Afrin nasal spray the generic, 12 hour relief, 2 sprays to each nostril twice daily for 1 or 2 days and then stop. Do not use more than 3 days. Follow package directions if you have a different version of the abdomen that has different times of dosing but still did not use more than 3 days. Do not blow your nose for the next couple of days to reduce the chance of rebleeding. You may use nasal clamp as instructed if bleeding returns. If bleeding does not stop within 15 minutes, return to the ER for further evaluation. Follow-up with your DrNelly in a few days for recheck. Return for worse pain, fever, vomiting , weakness, breathing problems or other concerns as needed. CIRILO PAEZ MD Oct 22, 2017 23:41
[2017-10-23] VITALS: BP 123/78
== END 2017-10-23 | disposition home or self-care (01) ==
LOC: EDUNIT# 21:16 → ER 21:17
DX: R04.0 Epistaxis (principal); F41.9 Anxiety disorder, unspecified; G47.9 Sleep disorder, unspecified; E11.40 Type 2 diabetes mellitus with diabetic neuropathy, unspecified; E03.9 Hypothyroidism, unspecified; M47.9 Spondylosis, unspecified; K59.09 Other constipation; I48.91 Unspecified atrial fibrillation; I25.10 Atherosclerotic heart disease of native coronary artery without angina pectoris; I25.2 Old myocardial infarction; J44.9 Chronic obstructive pulmonary disease, unspecified; E78.00 Pure hypercholesterolemia, unspecified; I10 Essential (primary) hypertension; Z95.5 Presence of coronary angioplasty implant and graft; Z95.1 Presence of aortocoronary bypass graft; Z90.89 Acquired absence of other organs; Z90.79 Acquired absence of other genital organ(s); Z98.52 Vasectomy status; Z87.891 Personal history of nicotine dependence; Z79.4 Long term (current) use of insulin; Z88.5 Allergy status to narcotic agent; Z79.02 Long term (current) use of antithrombotics/antiplatelets
CPT/HCPCS: 36415; 85007; 85027; 99283

== ENCOUNTER 2017-11-25 21:17 | Inpatient (IN) | payer OTHER, MEDICARE ==
[~2017-11-25] VITALS: Ht 172.7 cm; Wt 184.2 kg
[2017-11-25] MEDS ORDERED: RT-ALBUTEROL SULF 2.5 MG/3 ML PRE-MIX VIAL INH STA (21:34)
--- NOTE | 2017-11-25 21:42 | ED Respiratory ---
General Chief Complaint: Respiratory Problems Stated Complaint: SOB Nursing Triage Note: pt presents to er with complaint of sob, bloating. states he had gallbladder surgery 5 weeks ago. Source: patient Exam Limitations: no limitations History of Present Illness Date Seen by Provider: Nov 25, 2017 Time Seen by Provider: 21:29 Initial Comments The patient presents to the ER by private conveyance with his significant other and a power wheelchair and a chief complaint that his shortness of breath progressively gotten worse today. He is having orthopnea, nonproductive cough. No fevers or chills or chest pain. He has a history of congestive heart failure on Lasix 40 mg twice a day, bumetanide 5 mg and spent a lactate and 25 mg. He is followed by Dr. Bishop and was recently in the hospital about 5 weeks ago with a gallbladder surgery. He is having no early pain but he feels his belly is getting tight in his legs have gotten more swollen than the last few days. He is also having some redness on his right lower extremity which she thought might of been his cellulitis coming back. He takes breathing treatments at home and is had 4 today so far. Allergies and Home Medications Allergies Coded Allergies: Qgljuzd-Jcr-Wnm Reductase Inhibitor (Verified Allergy, Unknown, 10/15/17) codeine (Verified Allergy, Unknown, 10/15/17) fish oil (Verified Allergy, Unknown, 10/15/17) Home Medications Albuterol Sulfate 2.5 Mg/3 Ml Vial.neb, 2.5 MG NEB QID, (Reported) Albuterol Sulfate 18 Gm Hfa.aer.ad, 1 PUFF IH Q4H PRN for SHORTNESS OF BREATH, ( Reported) Apixaban 5 Mg Tablet, 5 MG PO BID, (Reported) Cetirizine HCl/Pseudoephedrine 1 Each Tab.er.12h, 1 TAB PO DAILY, (Reported) Clopidogrel Bisulfate 75 Mg Tablet, 75 MG PO DAILY, (Reported) Diltiazem HCl 240 Mg Cap.er.deg, 240 MG PO DAILY, (Reported) Docusate Sodium 100 Mg Capsule, 500 MG PO DAILY PRN for CONSTIPATION-1ST LINE, ( Reported) Finasteride 5 Mg Tablet, 2.5 MG PO HS, (Reported) TAKES 1/2 (5MG) TABLET Fluticasone/Salmeterol 1 Each Blst.w.dev, 1 PUFF IH BID, (Reported) Furosemide 40 Mg Tablet, 80 MG PO DAILY, (Reported) Hydrocodone Bit/Acetaminophen 1 Each Tablet, 1 TAB PO Q6H PRN for PAIN-MODERATE, (Reported) Insulin Detemir 100 Unit/1 Ml Insuln.pen, 20 UNITS SC BID, (Reported) Insulin Lispro 100 Unit/1 Ml Insuln.pen, 50 UNITS SQ ACHS, (Reported) Lactulose 10 Gm/15 Ml Solution, 2 TBS PO Q4H PRN for CONSTIPATION-3RD LINE, ( Reported) Levothyroxine Sodium 25 Mcg Tablet, 25 MCG PO DAILY, (Reported) Lidocaine 1 Each Adh..patch, 1 PATCH TP DAILY, (Reported) 5% Meloxicam 15 Mg Tablet, 15 MG PO DAILY, (Reported) Metolazone 5 Mg Tablet, 5 MG PO DAILY, (Reported) Metoprolol Succinate 50 Mg Tab.er.24h, 50 MG PO DAILY, (Reported) Montelukast Sodium 10 Mg Tablet, 10 MG PO HS, (Reported) Potassium Chloride 10 Meq Tablet.er, 20 MEQ PO BID, (Reported) TAKES 2 (10MEQ) TABLETS Rosuvastatin Calcium 5 Mg Tablet, 5 MG PO DAILY, (Reported) Sennosides 15 Mg Tablet, 5 TAB PO DAILY PRN for CONSTIPATION-2ND LINE, (Reported ) Spironolactone 25 Mg Tablet, 50 MG PO DAILY, (Reported) Tamsulosin HCl 0.4 Mg Cap.er.24h, 0.4 MG PO DAILY, (Reported) Tiotropium [place] 4 Gm Mist.inhal, 2 PUFF IH DAILY, (Reported) Patient Home Medication List Home Medication List Reviewed: Yes Review of Systems Constitutional: No chills, No diaphoresis, No fever, No malaise EENTM: No ear discharge, No ear pain Respiratory: cough; No hemoptysis; orthopnea; No phlegm; short of breath; No wheezing Cardiovascular: No chest pain; edema; No palpitations; vascular heart diseas Gastrointestinal: No abdominal pain, No constipation, No diarrhea, No nausea, No vomiting Genitourinary: No discharge, No dysuria Musculoskeletal: No back pain, No joint pain Skin: No pruritus, No rash Psychiatric/Neurological: Denies Headache, Denies Numbness Past Sndpbia-Tvlcbd-Ccenvj Hx Patient Social History Alcohol Use: Occasionally Uses Number of Drinks Today: GG Alcohol Beverage of Choice: Whiskey Recreational Drug Use: No Smoking Status: Former Smoker Type Used: Cigarettes Former Smoker, Quit: Aug 13, 1996 Recent Foreign Travel: No Contact w/Someone Who Travel: No Recent Infectious Disease Expo: No Recent Hopitalizations: No Immunizations Up To Date Tetanus Booster (TDap): Less than 5yrs PED Vaccines UTD: Yes Date of Pneumonia Vaccine: Jan 11, 2017 Date of Influenza Vaccine: May 13, 2017 Seasonal Allergies Seasonal Allergies: Yes Past Medical History Surgeries: Yes Adenoidectomy, Cardiac, CABG, Coronary Stent, Gallbladder, Tonsillectomy, Transurethral Resection, Vasectomy Respiratory: Yes Asthma, Pneumonia, Sleep Apnea, COPD Currently Using CPAP: Yes Currently Using BIPAP: No Cardiac: Yes Atrial Fibrillation, Chronic Edema/Swelling, Coronary Artery Disease, Heart Attack, High Cholesterol, Hypertension Neurological: No Neuropathy Reproductive Disorders: No Genitourinary: Yes Prostate Problems, Bladder Infection, UTI-Chronic Gastrointestinal: Yes Chronic Constipation Musculoskeletal: Yes Degenerate Disk Disease, Arthritis, Chronic Back Pain Endocrine: Yes Diabetes, Insulin dep, Hypothyroidsim HEENT: Yes Cataract Loss of Vision: Denies Hearing Impairment: Hard of Hearing Cancer: No Psychosocial: Yes Sleep Difficulties, Anxiety Integumentary: Yes Pruritis Blood Disorders: No Adverse Reaction/Blood Tranf: No Family Medical History Cancer 03 FATHER Congestive heart failure 03 MOTHER Family history: Arthritis 03 MOTHER Family history: Asthma 03 MOTHER Family history: Cardiovascular disease 03 MOTHER Family history: Diabetes mellitus 09 BROTHER Family history: Gastrointestinal disease 03 FATHER History of drug abuse 09 BROTHER Asthma, Heart Disease, Hypertension Physical Exam Vital Signs Vital Signs - First Documented 11/25/17 11/25/17 21:20 22:02 Temp 97.0 Pulse 78 Resp 20 B/P (MAP) 132/76 (94) Pulse Ox 93 O2 Delivery Nasal Cannula O2 Flow Rate 3.00 Capillary Refill : Less Than 3 Seconds General Appearance: WD/WN, no apparent distress Eyes: Bilateral Eye Normal Inspection, Bilateral Eye PERRL, Bilateral Eye EOMI HEENT: PERRL/EOMI, normal ENT inspection, pharynx normal (oral mucosa is moist) Neck: full range of motion, normal inspection Respiratory: chest non-tender, respiratory distress (mild), decreased breath sounds, accessory muscle use (mild), wheezing (faint) Cardiovascular: normal peripheral pulses, regular rate, rhythm, other (edema from his feet up to his low abdomen. 2+ pitting) Gastrointestinal: normal bowel sounds, non tender, soft Neurologic/Psychiatric: alert, oriented x 3 Skin: normal color, warm/dry Focused Exam Lactate Level 11/25/17 23:02: Lactic Acid Level 2.22*H Lactic Acid Level Laboratory Tests Test 11/25/17 23:02 Lactic Acid Level 2.22 MMOL/L (0.50-2.00) *H Procedures/Interventions Suture Size: 4-0 Progress/Results/Core Measures Suspected Sepsis Recent Fever Within 48 Hours: No Infection Criteria Present: None New/Unexplained Altered Menta: No Sepsis Screen: No Definite Risk SIRS Temperature:97.0 Pulse: 78 Respiratory Rate: 20 Laboratory Tests 11/25/17 21:31: White Blood Count 12.2H Blood Pressure 132 /76 Mean: 94 11/25/17 23:02: Lactic Acid Level 2.22*H Laboratory Tests 11/25/17 21:31: Creatinine 1.66H, Platelet Count 349, Total Bilirubin 0.4 Results/Orders Lab Results Laboratory Tests Test 11/25/17 21:31 11/25/17 22:19 11/25/17 23:00 11/25/17 23:02 Range/Units White Blood Count 12.2 H 4.3-11.0 10^3/uL Red Blood Count 3.02 L 4.35-5.85 10^6/uL Hemoglobin 8.2 L 13.3-17.7 G/DL Hematocrit 26 L 40-54 % Mean Corpuscular Volume 85 80-99 FL Mean Corpuscular Hemoglobin 27 25-34 PG Mean Corpuscular Hemoglobin Concent 32 32-36 G/DL Red Cell Distribution Width 15.5 H 10.0-14.5 % Platelet Count 349 130-400 10^3/uL Mean Platelet Volume 9.3 7.4-10.4 FL Neutrophils (%) (Auto) 64 42-75 % Lymphocytes (%) (Auto) 20 12-44 % Monocytes (%) (Auto) 12 0-12 % Eosinophils (%) (Auto) 4 0-10 % Basophils (%) (Auto) 0 0-10 % Neutrophils # (Auto) 7.8 1.8-7.8 X 10^3 Lymphocytes # (Auto) 2.4 1.0-4.0 X 10^3 Monocytes # (Auto) 1.5 H 0.0-1.0 X 10^3 Eosinophils # (Auto) 0.4 H 0.0-0.3 10^3/uL Basophils # (Auto) 0.1 0.0-0.1 10^3/uL Sodium Level 137 135-145 MMOL/L Potassium Level 3.2 L 3.6-5.0 MMOL/L Chloride Level 101 98-107 MMOL/L Carbon Dioxide Level 23 21-32 MMOL/L Anion Gap 13 5-14 MMOL/L Blood Urea Nitrogen 21 H 7-18 MG/DL Creatinine 1.66 H 0.60-1.30 MG/DL Estimat Glomerular Filtration Rate 42 BUN/Creatinine Ratio 13 Glucose Level 186 H 70-105 MG/DL Calcium Level 9.4 8.5-10.1 MG/DL Magnesium Level 1.9 1.8-2.4 MG/DL Total Bilirubin 0.4 0.1-1.0 MG/DL Aspartate Amino Transf (AST/SGOT) 12 5-34 U/L Alanine Aminotransferase (ALT/SGPT) 15 0-55 U/L Alkaline Phosphatase 89 40-136 U/L Troponin I < 0.30 <0.30 NG/ML C-Reactive Protein High Sensitivity 1.48 H 0.00-0.50 MG/DL B-Type Natriuretic Peptide 186.0 H <100.0 PG/ML Total Protein 7.7 6.4-8.2 GM/DL Albumin 4.1 3.2-4.5 GM/DL Blood Gas Puncture Site LEFT RADIAL Blood Gas Patient Temperature 97.0 Arterial Blood pH 7.50 H 7.37-7.43 Arterial Blood Partial Pressure CO2 34 L 35-45 MMHG Arterial Blood Partial Pressure O2 69 L 79-93 MMHG Arterial Blood HCO3 27 23-27 MMOL/L Arterial Blood Total CO2 27.7 21.0-31.0 MMOL/L Arterial Blood Oxygen Saturation 97 94-100 % Arterial Blood Base Excess 3.3 H -2.5-2.5 MMOL/L Michael Test POSITIVE Blood Gas Ventilator Setting NO Blood Gas Inspired Oxygen 3L Urine Color YELLOW Urine Clarity CLEAR Urine pH 6 5-9 Urine Specific Painter 1.010 L 1.016-1.022 Urine Protein NEGATIVE NEGATIVE Urine Glucose (UA) NEGATIVE NEGATIVE Urine Ketones NEGATIVE NEGATIVE Urine Nitrite NEGATIVE NEGATIVE Urine Bilirubin NEGATIVE NEGATIVE Urine Urobilinogen NORMAL NORMAL MG/DL Urine Leukocyte Esterase NEGATIVE NEGATIVE Urine RBC (Auto) NEGATIVE NEGATIVE Urine RBC RARE /HPF Urine WBC 0-2 /HPF Urine Squamous Epithelial Cells 0-2 /HPF Urine Crystals NONE /LPF Urine Bacteria NEGATIVE /HPF Urine Casts PRESENT /LPF Urine Hyaline Casts 5-10 H /LPF Urine Mucus NEGATIVE /LPF Urine Culture Indicated NO Lactic Acid Level 2.22 *H 0.50-2.00 MMOL/L My Orders Orders - WIL POTTS BNP (11/25/17 21:34) Cbc With Automated Diff (11/25/17 21:34) Comprehensive Metabolic Panel (11/25/17 21:34) Hs C Reactive Protein (11/25/17 21:34) Magnesium (11/25/17 21:34) Troponin I (11/25/17 21:34) Ua Culture If Indicated (11/25/17 21:34) Albuterol Pre-Mix Nebs (Rt) (Proventil (11/25/17 21:34) Albuterol/Ipra Inhalation Soln (Duoneb I (11/25/17 21:45) Chest 1 View, Ap/Pa Only (11/25/17 21:34) Ekg Tracing (11/25/17 21:34) Saline Lock/Iv-Start (11/25/17 21:34) Monitor-Rhythm Ecg Trace Only (11/25/17 21:34) Svn Sm Volume Nebulizer Rt-Rfs (11/25/17 21:34) Furosemide Injection (Lasix Injection) (11/25/17 21:45) Arterial Blood Gas (11/25/17 22:24) Blood Culture (11/25/17 22:59) Lactic Acid Analyzer (11/25/17 22:59) Cefepime Injection (Maxipime Injection) (11/25/17 23:15) Medications Given in ED Current Medications Medications Dose Ordered Sig/Jt Route Start Time Stop Time Status Last Admin Dose Admin Albuterol/ Ipratropium 3 ml ONCE ONCE INH 11/25/17 21:45 11/25/17 21:46 DC 11/25/17 22:01 3 ML Cefepime HCl 2000 mg/Sodium Chloride 100 ml @ 200 mls/hr ONCE ONCE IV 11/25/17 23:15 11/25/17 23:44 11/25/17 23:20 200 MLS/HR Furosemide 80 mg ONCE ONCE IVP 11/25/17 21:45 11/25/17 21:46 DC 11/25/17 21:46 80 MG Vital Signs/I&O 11/25/17 11/25/17 11/25/17 21:20 22:02 22:10 Temp 97.0 Pulse 78 Resp 20 B/P (MAP) 132/76 (94) Pulse Ox 93 99 O2 Delivery Nasal Cannula Nasal Cannula O2 Flow Rate 3.00 3.00 Capillary Refill : Less Than 3 Seconds Blood Pressure Mean: 94 Progress Note #1: Time: 21:41 Progress Note 80 mg IV Lasix, establish an IV get some lab work look for evidence of inflammatory inflammation or infection. The redness on his feet could be consistent with cellulitis and we may cover him on Keflex or Rocephin. We have an ABG to see what his respirator status and it get some breathing treatments. History of coronary artery disease and CABG in 2006 with [facility] in [facility]. Cardiac catheter 2015 showed multivessel coronary disease with more than 90% proximal mid left anterior descending artery. Echocardiogram from September [address] Costello shows a left ventricular ejection fraction of 55-65% with a dilated left atrium. Cellulitis September 2017. Progress Note #2: Time: 22:50 Progress Note BNP is only 180 which would be inconsistent with CHF exacerbation however he is having quite a bit of edema. He has some erythema on his legs could be consistent with cellulitis as well as an elevated white count. Rocephin could be a good choice to cover for long since he has a cough elevated white count and also the cellulitis. His breathing is pretty much the same after the breathing treatment. He is not really having any wheezing. . And the ABG reveals that he is actually a little on the alkalotic side meaning he's blowing off all of his CO2 secondary to hypoxia most likely and would also be more consistent with a primary diagnosis of pneumonia community acquired. Progress Note #3: Time: 23:25 Progress Note Patient's oxygenating okay on 3 L per nasal cannula room switch him over to his home CPAP For his obesity hypoventilation syndrome. Lactate mildly elevated which is probably due to being hypovolemic. He did not put out much volume with 80 of Lasix and his BNP is not impressive so give him a small fluid bolus 500 cc an hour over the next 2 hours which would be less than the typical 20 mL/kg and run some fluids in overnight. We have held all of his diuretics. ECG Initial ECG Impression Date: Nov 25, 2017 Initial ECG Impression Time: 21:34 Initial ECG Rate: 72 Initial ECG Rhythm: A Fib/Flutter Initial ECG Intervals: QT (451) Initial ECG Impression: Atrial Fibrillation Initial ECG Comparisson: Unchanged Comment A 2 fibrillation without rapid ventricular response. No ST segment elevation or depression. Diagnostic Imaging Diagonstic Imaging: Xray Plain Films/CT/US/NM/MRI: chest (1v) Comments Technically difficult study secondary to body habitus. Underpenetrated but no definite infiltrate or pulmonary congestion. Reviewed: Reviewed by Me Departure Communication (Admissions) Time/Spoke to Admitting Phy: 23:20 Discussed case lab imaging findings with Dr. Richey. He will see the patient. He agrees with plan for cefepime, holding diuretics and a small volume fluid bolus. He would like to have Dr. Whitney, pulmonology consult in the morning. Impression Primary Impression: Pneumonia Qualified Codes: J18.9 - Pneumonia, unspecified organism Additional Impressions: Cellulitis and abscess of foot Hypoxemia Disposition: 09 ADMITTED INPATIENT Condition: Stable Admissions Decision to Admit Reason: Admit from ER (General) Decision to Admit/Date: Nov 25, 2017 Time/Decision to Admit Time: 22:57 Departure-Patient Inst. Referrals: CHAO PAT DO (PCP/Family) Primary Care Physician Copy Copies To 1: CHAO PAT TITUS J Nov 25, 2017 21:42
[2017-11-25 21:44] LABS: BASOPHILS # (AUTO) 0.1 10^3/uL (0.0-0.1); BASOPHILS % (AUTO) 0 % (0-10); EOSINOPHILS # (AUTO) 0.4 10^3/uL (0.0-0.3); EOSINOPHILS % (AUTO) 4 % (0-10); HEMATOCRIT 26 % (40-54); HEMOGLOBIN 8.2 G/DL (13.3-17.7); LYMPHOCYTES # (AUTO) 2.4 X 10^3 (1.0-4.0); LYMPHOCYTES % (AUTO) 20 % (12-44); MEAN CORPUSCULAR HEMOGLOBIN 27 PG (25-34); MEAN CORPUSCULAR HGB CONC 32 G/DL (32-36); MEAN CORPUSCULAR VOLUME 85 FL (80-99); MEAN PLATELET VOLUME 9.3 FL (7.4-10.4); MONOCYTES # (AUTO) 1.5 X 10^3 (0.0-1.0); MONOCYTES % (AUTO) 12 % (0-12); NEUTROPHILS # (AUTO) 7.8 X 10^3 (1.8-7.8); NEUTROPHILS % (AUTO) 64 % (42-75); PLATELET COUNT 349 10^3/uL (130-400); RED BLOOD COUNT 3.02 10^6/uL (4.35-5.85); RED CELL DISTRIBUTION WIDTH 15.5 % (10.0-14.5); WHITE BLOOD COUNT 12.2 10^3/uL (4.3-11.0)
[2017-11-25] MEDS ORDERED: FUROSEMIDE 40 MG/4 ML INJ (LASIX) IVP ONE (21:45)
[2017-11-25] MEDS ORDERED: RT-ALBUTEROL/IPRATROPIUM 3 ML (DUONEB) VIAL INH ONE (21:45)
[2017-11-25 22:03] LABS: ALANINE AMINOTRANSFERASE 15 U/L (0-55); ALBUMIN 4.1 GM/DL (3.2-4.5); ALKALINE PHOSPHATASE 89 U/L (40-136); BILIRUBIN,TOTAL 0.4 MG/DL (0.1-1.0); BUN/CREATININE RATIO 13; CALCIUM 9.4 MG/DL (8.5-10.1); CARBON DIOXIDE 23 MMOL/L (21-32); CHLORIDE 101 MMOL/L (98-107); CREATININE SERUM 1.66 MG/DL (0.60-1.30); GFR ESTIMATED 42; GLUCOSE 186 MG/DL (70-105); MAGNESIUM 1.9 MG/DL (1.8-2.4); POTASSIUM 3.2 MMOL/L (3.6-5.0); SODIUM 137 MMOL/L (135-145); TOTAL PROTEIN 7.7 GM/DL (6.4-8.2)
[2017-11-25 22:30] LABS: ABG BASE EXCESS 3.3 MMOL/L (-2.5-2.5); ABG OXYGEN SATURATION 97 % (94-100); ABG PCO2 34 MMHG (35-45); ABG PO2 69 MMHG (79-93); ABG TCO2 27.7 MMOL/L (21.0-31.0)
[2017-11-25 22:32] LABS: ALLENS TEST POSITIVE; INSPIRED O2 3L; VENTILATOR NO
[2017-11-25 23:10] LABS: BILIRUBIN,URINE NEGATIVE (NEGATIVE); COLOR,URINE YELLOW; GLUCOSE, URINE (UA) NEGATIVE (NEGATIVE); KETONES,URINE NEGATIVE (NEGATIVE); LEUKOCYTE ESTERASE ,URINE NEGATIVE (NEGATIVE); NITRITE,URINE NEGATIVE (NEGATIVE); PH,URINE 6 (5-9); PROTEIN,URINE NEGATIVE (NEGATIVE); UROBILINOGEN,URINE NORMAL (NORMAL)
[2017-11-25] MEDS ORDERED: CEFEPIME INJECTION 2,000 MG in NS (IVPB) 100 ML IV ONE (23:15)
[2017-11-25 23:17] LABS: BACTERIA,URINE NEGATIVE /HPF; CLARITY,URINE CLEAR; RBC,URINE RARE /HPF; SQUAMOUS EPITHELIAL CELL,UR 0-2 /HPF; WBC,URINE 0-2 /HPF
[2017-11-25] MEDS ORDERED: NS IV 1000 ML 1,000 ML IV SCH (23:28)
[2017-11-26] VITALS (7 sets, daily range): BP systolic 109–156; BP diastolic 58–76
[2017-11-26] MEDS ORDERED: RT-ALBUTEROL/IPRATROPIUM 3 ML (DUONEB) VIAL INH PRN ×2 (01:15→13:15)
[2017-11-26] MEDS ORDERED: ONDANSETRON 4 MG/2 ML (SDV) Z0FRAN IV PRN (03:00)
[2017-11-26] MEDS ORDERED: ACETAMINOPHEN 500 MG TAB (TYLENOL) PO PRN (03:00)
[2017-11-26] MEDS: RT-ALBUTEROL/IPRATROPIUM 3 ML (DUONEB) VIAL INH SCH ×5 (03:08→22:10)
[2017-11-26] MEDS: 1/2 NS W/KCL 20 MEQ/L 1,000 ML IV SCH ×2 (03:28→11:45)
[2017-11-26 06:01] LABS: BASOPHILS % (AUTO) 0 % (0-10); EOSINOPHILS # (AUTO) 0.4 10^3/uL (0.0-0.3); EOSINOPHILS % (AUTO) 4 % (0-10); HEMATOCRIT 25 % (40-54); HEMOGLOBIN 7.6 G/DL (13.3-17.7); LYMPHOCYTES # (AUTO) 1.6 X 10^3 (1.0-4.0); LYMPHOCYTES % (AUTO) 16 % (12-44); MEAN CORPUSCULAR HEMOGLOBIN 27 PG (25-34); MEAN CORPUSCULAR HGB CONC 31 G/DL (32-36); MEAN CORPUSCULAR VOLUME 86 FL (80-99); MEAN PLATELET VOLUME 9.8 FL (7.4-10.4); MONOCYTES # (AUTO) 1.2 X 10^3 (0.0-1.0); MONOCYTES % (AUTO) 12 % (0-12); NEUTROPHILS # (AUTO) 6.6 X 10^3 (1.8-7.8); NEUTROPHILS % (AUTO) 67 % (42-75); PLATELET COUNT 303 10^3/uL (130-400); RED BLOOD COUNT 2.86 10^6/uL (4.35-5.85); RED CELL DISTRIBUTION WIDTH 15.6 % (10.0-14.5); WHITE BLOOD COUNT 9.9 10^3/uL (4.3-11.0)
--- NOTE | 2017-11-26 06:04 | Pulmonary Consultation ---
History of Present Illness History of Present Illness Date of Consultation 11/26/17 05:59 Time Seen by Provider: 05:59 Date of Admission History of Present Illness 66yo with hx of COPD, morbid obesity, CHF and recent hospitalization presented to ED secondary to worsening SOB, bilateral LE edema, and nonproductive cough over the last 1-2 days. No fevers or chills or chest pain. He also complains of RLE erythema and does have a hx of cellulitis. He has had previous episodes in the past. I am consulted for pulmonary management. Allergies and Home Medications Allergies Coded Allergies: Hguuwdo-Pbp-Pjl Reductase Inhibitor (Verified Allergy, Unknown, 10/15/17) codeine (Verified Allergy, Unknown, 10/15/17) fish oil (Verified Allergy, Unknown, 10/15/17) Home Medications Albuterol Sulfate 2.5 Mg/3 Ml Vial.neb, 2.5 MG NEB QID, (Reported) Albuterol Sulfate 18 Gm Hfa.aer.ad, 1 PUFF IH Q4H PRN for SHORTNESS OF BREATH, ( Reported) Apixaban 5 Mg Tablet, 5 MG PO BID, (Reported) Cetirizine HCl/Pseudoephedrine 1 Each Tab.er.12h, 1 TAB PO DAILY, (Reported) Clopidogrel Bisulfate 75 Mg Tablet, 75 MG PO DAILY, (Reported) Diltiazem HCl 240 Mg Cap.er.deg, 240 MG PO DAILY, (Reported) Docusate Sodium 100 Mg Capsule, 500 MG PO DAILY PRN for CONSTIPATION-1ST LINE, ( Reported) Finasteride 5 Mg Tablet, 2.5 MG PO HS, (Reported) TAKES 1/2 (5MG) TABLET Fluticasone/Salmeterol 1 Each Blst.w.dev, 1 PUFF IH BID, (Reported) Furosemide 40 Mg Tablet, 80 MG PO DAILY, (Reported) Hydrocodone Bit/Acetaminophen 1 Each Tablet, 1 TAB PO Q6H PRN for PAIN-MODERATE, (Reported) Insulin Detemir 100 Unit/1 Ml Insuln.pen, 20 UNITS SC BID, (Reported) Insulin Lispro 100 Unit/1 Ml Insuln.pen, 50 UNITS SQ ACHS, (Reported) Lactulose 10 Gm/15 Ml Solution, 2 TBS PO Q4H PRN for CONSTIPATION-3RD LINE, ( Reported) Levothyroxine Sodium 25 Mcg Tablet, 25 MCG PO DAILY, (Reported) Lidocaine 1 Each Adh..patch, 1 PATCH TP DAILY, (Reported) 5% Meloxicam 15 Mg Tablet, 15 MG PO DAILY, (Reported) Metolazone 5 Mg Tablet, 5 MG PO DAILY, (Reported) Metoprolol Succinate 50 Mg Tab.er.24h, 50 MG PO DAILY, (Reported) Montelukast Sodium 10 Mg Tablet, 10 MG PO HS, (Reported) Potassium Chloride 10 Meq Tablet.er, 20 MEQ PO BID, (Reported) TAKES 2 (10MEQ) TABLETS Rosuvastatin Calcium 5 Mg Tablet, 5 MG PO DAILY, (Reported) Sennosides 15 Mg Tablet, 5 TAB PO DAILY PRN for CONSTIPATION-2ND LINE, (Reported ) Spironolactone 25 Mg Tablet, 50 MG PO DAILY, (Reported) Tamsulosin HCl 0.4 Mg Cap.er.24h, 0.4 MG PO DAILY, (Reported) Tiotropium [place] 4 Gm Mist.inhal, 2 PUFF IH DAILY, (Reported) Past Yrgezzh-Lznxyp-Ugedfs Hx Patient Social History Alcohol Use: Occasionally Uses Number of Drinks Today: GG Alcohol Beverage of Choice: Whiskey Recreational Drug Use: No Smoking Status: Former Smoker Type Used: Cigarettes Former Smoker, Quit: Aug 13, 1996 Recent Foreign Travel: No Contact w/Someone Who Travel: No Recent Infectious Disease Expo: No Recent Hopitalizations: Yes Immunizations Up To Date Tetanus Booster (TDap): Less than 5yrs PED Vaccines UTD: No Date of Pneumonia Vaccine: May 13, 2017 Date of Influenza Vaccine: May 13, 2017 Seasonal Allergies Seasonal Allergies: Yes Past Medical History Surgeries: Yes Adenoidectomy, Cardiac, CABG, Coronary Stent, Gallbladder, Tonsillectomy, Transurethral Resection, Vasectomy Respiratory: Yes Asthma, Pneumonia, COPD Currently Using CPAP: Yes Currently Using BIPAP: No Cardiac: Yes Atrial Fibrillation, Chronic Edema/Swelling, Coronary Artery Disease, Heart Attack, High Cholesterol, Hypertension Neurological: Yes Neuropathy Reproductive Disorders: No Genitourinary: Yes Prostate Problems, Bladder Infection, UTI-Chronic Gastrointestinal: Yes Chronic Constipation Musculoskeletal: Yes Arthritis, Chronic Back Pain Endocrine: Yes Diabetes, Insulin dep, Hypothyroidsim Are Your Blood Sugars Over 250: No HEENT: Yes Cataract Loss of Vision: Denies Hearing Impairment: Denies Cancer: No Psychosocial: Yes Anxiety Integumentary: Yes Pruritis Blood Disorders: No Adverse Reaction/Blood Tranf: No Family Medical History Cancer 03 FATHER Congestive heart failure 03 MOTHER Family history: Arthritis 03 MOTHER Family history: Asthma 03 MOTHER Family history: Cardiovascular disease 03 MOTHER Family history: Diabetes mellitus 09 BROTHER Family history: Gastrointestinal disease 03 FATHER History of drug abuse 09 BROTHER Asthma, Heart Disease, Hypertension Exam Exam Vital Signs Date Time Temp Pulse Resp B/P (MAP) Pulse Ox O2 Delivery O2 Flow Rate FiO2 11/26/17 04:00 98.0 73 18 109/58 (75) 97 NIV CPAP 3.00 3.00 11/26/17 03:11 98 NIV CPAP 3.00 11/26/17 01:01 87 95 11/26/17 00:30 97.7 87 26 142/65 (90) Nasal Cannula 3.00 11/26/17 00:25 Nasal Cannula 3.00 11/26/17 00:20 98.3 80 20 127/91 99 Nasal Cannula 3.00 11/26/17 00:20 98.3 80 20 127/91 (94) 95 Nasal Cannula 3.00 11/25/17 23:15 97.9 83 20 102/51 96 Nasal Cannula 3.00 11/25/17 22:15 97.2 83 20 123/74 100 Nasal Cannula 3.00 11/25/17 22:10 99 Nasal Cannula 3.00 11/25/17 22:02 93 Nasal Cannula 3.00 11/25/17 21:20 97.0 78 20 132/76 95 Nasal Cannula 3.00 11/25/17 21:20 97.0 78 20 132/76 (94) I & O 11/26/17 07:00 Intake Total 100 ml Balance 100 ml Capillary Refill: Less Than 3 Seconds Gastrointestinal: normal bowel sounds, non tender, soft Results Lab Laboratory Tests 11/25/17 21:31 Assessment/Plan Assessment/Plan Acute on chronic respiratory failure -Monitor, oxygen -Check 2 view CXR this AM COPDAE with persistent cough- -oxygen -SVNs PNA -Check [place]rera cultures -Continue cefepime -IVF -oxygen Anemia -monitor -check occult stools. Allergic rhiniits -start Claritin, Singulair, and Flonase. Morbid obesity with JOSE MANUEL -Home CPAP Chronic Afib and CAD -Cardiology following CKD IDDM Cellulitis and abscess of foot 255 RAIMUNDO MATTHEWS DO Nov 26, 2017 06:04
[2017-11-26 06:21] LABS: CALCIUM 8.9 MG/DL (8.5-10.1); CREATININE SERUM 1.67 MG/DL (0.60-1.30); POTASSIUM 3.3 MMOL/L (3.6-5.0)
[2017-11-26] MEDS: LEVOTHYROXINE 25 MCG (LEVOTHROID) TAB PO SCH (06:38)
[2017-11-26] MEDS: inSUlin (REGULAR) HUMAN 1 UNIT/0.01 ML (CHARGE PER UNIT) SC SCH ×4 (06:38→21:22)
[2017-11-26] MEDS: inSUlin ASPART (NovoLOG) 1 UNIT/0.01 ML (CHARGE PER UNIT) SC SCH ×4 (06:38→21:21)
--- NOTE | 2017-11-26 07:52 | Diagnostic Imaging Report ---
INDICATION: Cough, congestion, and shortness of air. Compared 10/15/2017. FINDINGS: The heart is enlarged and increased in size from prior, similar degrees of distention of the vascularity are noted. No focal consolidation, effusion or pneumothorax. Displaced fractured sternal wires unchanged from prior. IMPRESSION: Worsened cardiomegaly and vascular congestion but no focal pleural fluid, pneumothorax or jd alveolar consolidation. Dictated by: Dictated on workstation # [id number]
[2017-11-26] MEDS: CLOPIDOGREL 75 MG (PLAVIX) TABLET PO SCH (08:23)
[2017-11-26] MEDS: APIXABAN 5 MG (ELIQUIS) TABLET PO SCH ×2 (08:23→21:21)
[2017-11-26] MEDS: DILTIAZEM 240 MG (CARDIZEM CD) CAP PO SCH (08:23)
[2017-11-26] MEDS: LORATADINE (CLARITIN) 10 MG TAB PO SCH (08:24)
[2017-11-26] MEDS: inSUlin DETERMIR 1 UNIT/0.01 ML (LEVEMIR) CHARGE PER UNIT SQ SCH ×2 (08:24→21:21)
[2017-11-26] MEDS: meTOproloL SUCCINATE 50 MG (TOPROL XL) TAB PO SCH (08:24)
[2017-11-26] MEDS: CEFEPIME 2 GM/NS 100 ML IVPB IV SCH ×4 (08:24→21:22)
[2017-11-26] MEDS: FLUTICASONE NASAL SPRAY (FLONASE) 16 GM BTL NS SCH ×2 (08:24→21:22)
--- NOTE | 2017-11-26 09:16 | Diagnostic Imaging Report ---
INDICATION: Pneumonia and hypoxia. Time of exam 8:36 AM Correlation is made with prior study from 11/25/2017. The heart is enlarged but stable. Changes of median sternotomy are noted. There are interstitial changes in both lungs perhaps on basis of mild congestive failure. No parenchymal consolidation is seen. No effusion is identified. There is no pneumothorax. IMPRESSION: Cardiomegaly and interstitial changes, perhaps owing into mild congestive site. Overall appearance is similar to the exam from one day earlier. Dictated by: Dictated on workstation # [id number]
[2017-11-26] MEDS ORDERED: RT-ALBUINH INH (09:33)
[2017-11-26] MEDS ORDERED: SULF-222 PO (09:33)
[2017-11-26] MEDS ORDERED: ESOM20CA58 PO (09:43)
--- NOTE | 2017-11-26 13:11 | History & Physical-Hospitalist ---
History of Present Illness HPI/Chief Complaint Pt is a 66yoCM with a PMH of COPD, CAD, CHF who presented to the ER for increased SOB. He states over the past month he has had increased SOB but over the past few days he had been needing his inhalers every 2-3 hours. Despite this he has had cough and orthopnea. He also has heart failure for which he takes lasix, bumetanide, and spirolactone but this as not helped. He also thought he right leg was more red than normal and was concerned that his cellulitis was getting worse. Source: patient Exam Limitations: no limitations Date Seen 11/26/17 Time Seen by Provider: 13:09 Attending Physician Sam Richey MD PCP America Hutton DO Referring Physician Date of Admission Nov 25, 2017 at 11:10 pm Home Medications & Allergies Home Medications Reviewed patient Home Medication Reconciliation performed by pharmacy medication reconciliations prosthetic lab technician and/or nursing. Patients Allergies have been reviewed. Allergies Allergies Coded Allergies Twnqtsq-Ade-Eph Reductase Inhibitor (Verified Allergy, Unknown, 10/15/17) codeine (Verified Allergy, Unknown, 10/15/17) fish oil (Verified Allergy, Unknown, 10/15/17) Past Cweezol-Unxjto-Bqvqmr Hx Past Med/Social Hx: Reviewed Nursing Past Med/Soc Hx, Reviewed and Corrections made Patient Social History Marrital Status: Alcohol Use: Occasionally Uses Number of Drinks Today: GG Alcohol Beverage of Choice: Whiskey Recreational Drug Use: No Smoking Status: Former Smoker Former Smoker, Quit: Aug 13, 1996 Type Used: Cigarettes Physical Abuse Screen: No Sexual Abuse: No Recent Foreign Travel: No Contact w/other who traveled: No Recent Hopitalizations: Yes Recent Infectious Disease Expo: No Immunizations Up To Date Tetanus Booster (TDap): Less than 5yrs Pediatric: No Date of Pneumonia Vaccine: May 13, 2017 Date of Influenza Vaccine: May 13, 2017 Seasonal Allergies Seasonal Allergies: Yes Past Medical History Surgeries: Adenoidectomy, Cardiac, CABG, Coronary Stent, Gallbladder, Tonsillectomy, Transurethral Resection, Vasectomy Respiratory: Chronic Bronchitis, COPD, Pneumonia, Sleep Apnea Currently Using CPAP: Yes Currently Using BIPAP: No Cardiac: Atrial Fibrillation, Chronic Edema/Swelling, Coronary Artery Disease, Heart Attack, High Cholesterol, Hypertension Neurological: Neuropathy Reproductive: No Genitourinary: Prostate Problems, Bladder Infection, UTI-Chronic Gastrointestinal: Chronic Constipation Musculoskeletal: Arthritis, Chronic Back Pain Endocrine: Diabetes, Insulin dep, Hypothyroidsim Are Your Blood Sugars Over 250: No HEENT: Cataract Loss of Vision: Denies Hearing Impairment: Denies Psychosocial: Anxiety Skin/Integumentary: Pruritis History of Blood Disorders: No Adverse Reaction to Blood Leal: No Family History Cancer 03 FATHER Congestive heart failure 03 MOTHER Family history: Arthritis 03 MOTHER Family history: Asthma 03 MOTHER Family history: Cardiovascular disease 03 MOTHER Family history: Diabetes mellitus 09 BROTHER Family history: Gastrointestinal disease 03 FATHER History of drug abuse 09 BROTHER Asthma, Heart Disease, Hypertension Review of Systems Constitutional: No chills, No fever EENTM: No blurred vision, No double vision, No nose congestion, No throat pain Respiratory: see HPI, cough, dyspnea on exertion, orthopnea, short of breath, wheezing Cardiovascular: No chest pain, No edema, No palpitations Gastrointestinal: No abdominal pain, No constipation, No diarrhea, No nausea, No vomiting Genitourinary: No dysuria, No frequency Musculoskeletal: No joint pain, No muscle pain Skin: see HPI; No lesions, No rash Psychiatric/Neurological: Denies Headache, Denies Numbness, Denies Tingling Physical Exam Physical Exam Vital Signs Vital Signs - First Documented 11/25/17 21:20 Temp 97.0 Pulse 78 Resp 20 B/P (MAP) 132/76 (94) Pulse Ox 95 O2 Delivery Nasal Cannula O2 Flow Rate 3.00 Capillary Refill : Less Than 3 Seconds General Appearance: No Apparent Distress, WD/WN HEENT: PERRL/EOMI, Moist Mucous Membranes Neck: Non Tender, Supple Respiratory: No Respiratory Distress, Wheezing Cardiovascular: Regular Rate, Rhythm, No Murmur Gastrointestinal: Normal Bowel Sounds, Non Tender, Soft Extremity: Normal Capillary Refill, No Calf Tenderness Neurologic/Psychiatric: Alert, Oriented x3, No Motor/Sensory Deficits, Normal Mood/Affect Skin: Normal Color, Warm/Dry, Erythema (lower extremity) Results Results/Procedures Labs Laboratory Tests 11/25/17 21:31 11/26/17 05:24 Patient resulted labs reviewed. Imaging: Reviewed Imaging Report Assessment/Plan Admission Diagnosis Dyspnea Admission Status: Inpatient Order (span 2 midnights) Reason for Inpatient Admission: failed outpatient oral diuretics, no IV antibiotics Diagnosis/Problems Diagnosis/Problems (1) COPD (chronic obstructive pulmonary disease) Status: Chronic Assessment & Plan: Pulm consulted, appreciate recs Continue on inhalers MAT Protocol Will add mucomyst as he feels congested Consider steroids if no improvement Qualifiers: COPD type: unspecified COPD Qualified Codes: J44.9 - Chronic obstructive pulmonary disease, unspecified (2) IDDM (insulin dependent diabetes mellitus) Status: Chronic Assessment & Plan: Continue home insulin SSI (3) CAD (coronary artery disease) Status: Chronic Assessment & Plan: Cardiology consulted appreciate recs Continue diuretics Qualifiers: Coronary Disease-Associated Artery/Lesion type: [place] artery [place] vs. transplanted heart: [place] heart Associated angina: without angina Qualified Codes: I25.10 - Atherosclerotic heart disease of [place] coronary artery without angina pectoris (4) Chronic atrial fibrillation Status: Chronic Assessment & Plan: Continue home medications (5) Cellulitis Assessment & Plan: Continue on cefepime Does not appear to have sepsis Lactic acid likely to due CHF Qualifiers: Site of cellulitis: extremity Site of cellulitis of extremity: lower extremity Laterality: right Qualified Codes: L03.115 - Cellulitis of right lower limb (6) Chronic kidney disease Status: Chronic Assessment & Plan: Near baseline Qualifiers: Chronic kidney disease stage: stage 3 (moderate) Qualified Codes: N18.3 - Chronic kidney disease, stage 3 (moderate) (7) Prophylactic measure Assessment & Plan: Eliquis ADA Saline Lock Clinical Quality Measures DVT/VTE Risk/Contraindication: Risk Factor Score Per Nursin RFS Level Per Nursing on Admit: 4+=Very High BRANDEN DELACRUZ MD Nov 26, 2017 1:11 pm
[2017-11-26] MEDS ORDERED: NON-FORMULARY MEDICATION 1 EA EA (Fluticasone/Salmeterol (Advair 500-50 Diskus) 1 PUFF) IH SCH (13:15)
[2017-11-26] MEDS ORDERED: aCETylcysteine 20% (MUCOMYST) 30ML SOLN VIAL ONE (15:05)
[2017-11-26] MEDS: aCETylcysteine 20% (MUCOMYST) 30ML SOLN VIAL INH SCH (18:31)
[2017-11-26] MEDS ORDERED: RT-ADVAIR HFA 115/21 MCG PER PUFF IH SCH (20:00)
[2017-11-26] MEDS: FINASTERIDE (PROSCAR) 5 MG TAB PO SCH (21:21)
[2017-11-26] MEDS: MONTELUKAST 10 MG (SINGULAIR) TAB PO SCH (21:21)
[2017-11-27 00:03] VITALS: BP 157/85
[2017-11-27] MEDS: RT-ALBUTEROL/IPRATROPIUM 3 ML (DUONEB) VIAL INH SCH ×6 (02:22→22:42)
[2017-11-27 04:00] VITALS: BP 143/65
[2017-11-27] MEDS: inSUlin (REGULAR) HUMAN 1 UNIT/0.01 ML (CHARGE PER UNIT) SC SCH (05:31)
[2017-11-27] MEDS: LEVOTHYROXINE 25 MCG (LEVOTHROID) TAB PO SCH (06:37)
[2017-11-27] MEDS: inSUlin ASPART (NovoLOG) 1 UNIT/0.01 ML (CHARGE PER UNIT) SC SCH ×7 (06:37→21:47)
[2017-11-27 06:55] LABS: BASOPHILS # (AUTO) 0.1 10^3/uL (0.0-0.1); BASOPHILS % (AUTO) 1 % (0-10); EOSINOPHILS # (AUTO) 0.5 10^3/uL (0.0-0.3); EOSINOPHILS % (AUTO) 5 % (0-10); HEMATOCRIT 26 % (40-54); LYMPHOCYTES # (AUTO) 1.6 X 10^3 (1.0-4.0); LYMPHOCYTES % (AUTO) 14 % (12-44); MEAN CORPUSCULAR HEMOGLOBIN 26 PG (25-34); MEAN CORPUSCULAR HGB CONC 31 G/DL (32-36); MEAN CORPUSCULAR VOLUME 86 FL (80-99); MONOCYTES # (AUTO) 1.3 X 10^3 (0.0-1.0); MONOCYTES % (AUTO) 11 % (0-12); NEUTROPHILS # (AUTO) 7.8 X 10^3 (1.8-7.8); NEUTROPHILS % (AUTO) 69 % (42-75); PLATELET COUNT 330 10^3/uL (130-400); RED BLOOD COUNT 3.04 10^6/uL (4.35-5.85); RED CELL DISTRIBUTION WIDTH 15.6 % (10.0-14.5); WHITE BLOOD COUNT 11.3 10^3/uL (4.3-11.0)
[2017-11-27 07:20] LABS: CREATININE SERUM 1.25 MG/DL (0.60-1.30); POTASSIUM 3.1 MMOL/L (3.6-5.0)
[2017-11-27 08:00] VITALS: BP 139/78
[2017-11-27] MEDS: APIXABAN 5 MG (ELIQUIS) TABLET PO SCH ×2 (08:01→21:46)
[2017-11-27] MEDS: CLOPIDOGREL 75 MG (PLAVIX) TABLET PO SCH (08:01)
[2017-11-27] MEDS: METOLAZONE 5 MG (ZAROXOLYN) TAB PO SCH (08:01)
[2017-11-27] MEDS: FUROSEMIDE 40 MG (LASIX) TAB PO SCH (08:01)
[2017-11-27] MEDS: LORATADINE (CLARITIN) 10 MG TAB PO SCH (08:01)
[2017-11-27] MEDS: meTOproloL SUCCINATE 50 MG (TOPROL XL) TAB PO SCH (08:02)
[2017-11-27] MEDS: DILTIAZEM 240 MG (CARDIZEM CD) CAP PO SCH (08:02)
[2017-11-27] MEDS: FLUTICASONE NASAL SPRAY (FLONASE) 16 GM BTL NS SCH ×2 (08:02→21:46)
--- NOTE | 2017-11-27 08:08 | Consultation-Cardiology ---
HPI-Cardiology Cardiology Consultation: Date of Consultation 11/27/17 Time Seen by Provider: 08:15 Date of Admission 11/25/17 Attending Physician Chelsie Veras MD Admitting Physician America Hutton DO Consulting Physician Kayla Bishop MD HPI: Chief Complaint: Dyspnea Lower extremity edema Mr. Garcia is a 66 year old male admitted to 408 from the ED with c/o increasing shortness of breath and lower extremity edema. He reports he has chronic SOB, but starting on Sunday it became progressively worse. He reports his chronic lower extremity edema also became increasingly worse. He reports he had some redness to his legs bilat and was concerned this was d/t cellulitis. He reports occ lose cough. He reports chills on Sunday. He denies any CP, palpitations, syncope or near syncope. He states he feels his breathing is better today, but not yet back to baseline. He also reports the redness and swelling to his legs has also improved. No c/o n/v/d. No report of fever. Review of Systems-Cardiology Review of Systems Constitutional: chills; No fever Eyes: No vision change Ears/Nose/Throat: No epistaxis, No nasal drainage Respiratory: As described under HPI Cardiovascular: As described under HPI Gastrointestinal: No constipation, No diarrhea, No nausea, No vomiting Genitourinary: No dysuria, No hematuria Musculoskeletal: joint pain (chronic) Skin: As described under HPI Psychiatric/Neurological: No anxiety, No depression, No focal weakness, No syncope Hematologic: No bleeding abnormalities WKM-Qolgjc-Laarvw Hx Patient Social History Marrital Status: Alcohol Use: Occasionally Uses Recreational Drug Use: No Smoking Status: Former Smoker Former smoker/When Quit: Aug 13, 2006 Type Used: Cigarettes Recent Foreign Travel: No Recent Infectious Disease Expo: No Hospitalization with Isolation: Contact Physical Abuse Screen: No Sexual Abuse: No Immunizations Up To Date Tetanus Booster (TDap): Less than 5yrs Date of Pneumonia Vaccine: May 13, 2017 Date of Influenza Vaccine: May 13, 2017 Past Medical History PMH As described under Assessment. Family Medical History Family Medical History: Reports mother had CAD and CHF. No reported h/o premature CAD or SCD. Family History: Cancer 03 FATHER Congestive heart failure 03 MOTHER Family history: Arthritis 03 MOTHER Family history: Asthma 03 MOTHER Family history: Cardiovascular disease 03 MOTHER Family history: Diabetes mellitus 09 BROTHER Family history: Gastrointestinal disease 03 FATHER History of drug abuse 09 BROTHER Allergies and Home Medications Allergies Coded Allergies: Klbtxfg-Iey-Ysp Reductase Inhibitor (Verified Allergy, Unknown, 10/15/17) codeine (Verified Allergy, Unknown, 10/15/17) fish oil (Verified Allergy, Unknown, 10/15/17) Home Medications Albuterol Sulfate 2.5 Mg/3 Ml Vial.neb, 2.5 MG NEB Q4H PRN for SHORTNESS OF BREATH, (Reported) Albuterol Sulfate 1 Puff Puff, 2 PUFF INH Q4H PRN for SHORTNESS OF BREATH, ( Reported) Apixaban 5 Mg Tablet, 5 MG PO BID, (Reported) Cetirizine HCl/Pseudoephedrine 1 Each Tab.er.12h, 1 TAB PO DAILY, (Reported) Clopidogrel Bisulfate 75 Mg Tablet, 75 MG PO DAILY, (Reported) Diltiazem HCl 240 Mg Cap.er.deg, 240 MG PO DAILY, (Reported) Docusate Sodium 100 Mg Capsule, 500 MG PO DAILY PRN for CONSTIPATION-1ST LINE, ( Reported) Esomeprazole Magnesium 20 Mg Capsule.dr, 20 MG PO HS, (Reported) Finasteride 5 Mg Tablet, 2.5 MG PO HS, (Reported) TAKES 1/2 (5MG) TABLET Fluticasone/Salmeterol 1 Each Blst.w.dev, 1 PUFF IH BID, (Reported) Furosemide 40 Mg Tablet, 80 MG PO DAILY, (Reported) TAKES 2 (40MG) TABLETS Hydrocodone Bit/Acetaminophen 1 Each Tablet, 1 TAB PO Q6H PRN for PAIN-MODERATE, (Reported) Insulin Detemir 100 Unit/1 Ml Insuln.pen, 20 UNITS SC BID, (Reported) Insulin Lispro 100 Unit/1 Ml Insuln.pen, 50 UNITS SQ ACHS, (Reported) Lactulose 10 Gm/15 Ml Solution, 2 TBS PO Q4H PRN for CONSTIPATION-3RD LINE, ( Reported) Levothyroxine Sodium 25 Mcg Tablet, 25 MCG PO DAILY, (Reported) Lidocaine 1 Each Adh..patch, 1 PATCH TP DAILY PRN for KNEE/BACK PAIN, (Reported) 5% Meloxicam 15 Mg Tablet, 15 MG PO DAILY, (Reported) Metolazone 5 Mg Tablet, 5 MG PO DAILY, (Reported) Metoprolol Succinate 50 Mg Tab.er.24h, 50 MG PO DAILY, (Reported) Montelukast Sodium 10 Mg Tablet, 10 MG PO HS, (Reported) Potassium Chloride 10 Meq Tablet.er, 20 MEQ PO BID, (Reported) TAKES 2 (10MEQ) TABLETS Rosuvastatin Calcium 5 Mg Tablet, 5 MG PO DAILY, (Reported) Sennosides 15 Mg Tablet, 1 TAB PO DAILY PRN for CONSTIPATION-5TH LINE, (Reported ) Spironolactone 25 Mg Tablet, 50 MG PO DAILY, (Reported) TAKES 2 (25MG) TABLETS Sulfamethoxazole/Trimethoprim 1 Each Tablet, 1 TAB PO DAILY, (Reported) Tamsulosin HCl 0.4 Mg Cap.er.24h, 0.4 MG PO DAILY, (Reported) Patient Home Medication List Home Medication List Reviewed: Yes Physical Exam-Cardiology Physical Exam Vital Signs/I&O 11/27/17 11/27/17 11/28/17 11/28/17 21:00 22:43 00:00 02:15 Temp 97.5 Pulse 68 Resp 21 B/P (MAP) 121/63 (82) Pulse Ox 95 97 92 O2 Delivery Nasal Cannula NIV CPAP NIV CPAP Nasal Cannula O2 Flow Rate 3.00 3.00 3.00 3.00 11/28/17 11/28/17 11/28/17 04:00 06:55 07:43 Temp 97.5 97.9 Pulse 65 78 Resp 19 20 B/P (MAP) 109/56 (73) 130/61 (84) Pulse Ox 96 95 93 O2 Delivery NIV CPAP Nasal Cannula Nasal Cannula O2 Flow Rate 3.00 3.00 3.00 11/28/17 00:00 Intake Total 2040 ml Output Total 3975 ml Balance -1935 ml Capillary Refill : Less Than 3 Seconds Constitutional: AAO x 3, well-developed, well-nourished HEENT: PERRL, hearing is well preserved, oral hygience is good; No xanthelasmas are seen Neck: No carotid bruit Respiratory: crackles (bi-basilar), other (prolonged expiratory phase) Cardiovascular: irregularly irregular; No JVD; S1 and S2 Gastrointestinal: No tender; soft, audible bowel sounds Rectal: deferred Extremities: significant edema (bilat LE edema) Neurologic/Psychiatric: grossly intact, power is 5/5 both on sides Skin: other (redness to LE bilat) Data Review Labs Laboratory Tests 11/27/17 11:18: Glucometer 212H 11/27/17 15:36: Glucometer 299H 11/27/17 20:17: Glucometer 319H 11/28/17 05:09: White Blood Count 13.1H, Red Blood Count 2.99L, Hemoglobin 8.1L, Hematocrit 25L , Mean Corpuscular Volume 85, Mean Corpuscular Hemoglobin 27, Mean Corpuscular Hemoglobin Concent 32, Red Cell Distribution Width 15.8H, Platelet Count 357, Mean Platelet Volume 9.9, Neutrophils (%) (Auto) 78H, Lymphocytes (%) (Auto) 13 , Monocytes (%) (Auto) 10, Eosinophils (%) (Auto) 0, Basophils (%) (Auto) 0, Neutrophils # (Auto) 10.2H, Lymphocytes # (Auto) 1.6, Monocytes # (Auto) 1.3H, Eosinophils # (Auto) 0.0, Basophils # (Auto) 0.0, Sodium Level 134L, Potassium Level 3.5L, Chloride Level 99, Carbon Dioxide Level 24, Anion Gap 11, Blood Urea Nitrogen 25H, Creatinine 1.25, Estimat Glomerular Filtration Rate 58, BUN/ Creatinine Ratio 20, Glucose Level 178H, Calcium Level 9.6, Magnesium Level 2.0 , Total Bilirubin 0.5, Aspartate Amino Transf (AST/SGOT) 16, Alanine Aminotransferase (ALT/SGPT) 15, Alkaline Phosphatase 77, Total Protein 7.6, Albumin 4.0 11/28/17 05:39: Glucometer 181H Microbiology 11/25/17 Blood Culture - Preliminary, Resulted No growth 11/26/17 Gram Stain - Final, Resulted 11/26/17 Sputum Culture - Preliminary, Resulted Enterobacter aerogenes Radiology NAME: [facility] GARC[facility] REC#: [id number] PT STATUS: ADM IN : 1950 PHYSICIAN: CHELSIE VERAS MD ADMIT DATE: 11/25/17 Signed Date of Exam: 11/26/17 CHEST PA/LAT (2 VIEW) INDICATION: Pneumonia and hypoxia. Time of exam 8:36 AM Correlation is made with prior study from 11/25/2017. The heart is enlarged but stable. Changes of median sternotomy are noted. There are interstitial changes in both lungs perhaps on basis of mild congestive failure. No parenchymal consolidation is seen. No effusion is identified. There is no pneumothorax. IMPRESSION: Cardiomegaly and interstitial changes, perhaps owing into mild congestive site. Overall appearance is similar to the exam from one day earlier. Dictated by: Dictated on workstation # [id number] Dict: 11/26/17 0911 Trans: 11/26/17 1611 Interpreted by: LOREN COLEMAN MD Electronically signed by: LOREN COLEMAN MD 11/26/17 1611 ECG Impression ECG Initial ECG Impression: Atrial Fibrillation A/P-Cardiology Assessment/Admission Diagnosis Dyspnea likely multifactorial - ac on chronic diastolic CHF, ac exacerbation of COPD, pneumonia and obesity hypoventilation syndrome Acute on chr exacerbation of COPD Pneumonia - management per medical services Ac on chronic diastolic CHF - continue diuretic regimen Persistent a-fib first diagnosed in early February 2016, rate controlled Anemia of undetermined etiology OAC with Eliquis CAD with a h/o CABG in 2006 at [facility] in [place], [place]. On cardiac cath of 11-11-15: Multivessel coronary disease including multiple more than 90% stenosis of the proximal and mid left anterior descending artery. The mid to distal left anterior descending artery is protected with a widely patent left internal mammary artery graft. The left circumflex artery had 99% ostial/ proximal stenosis to which successful stenting was carried out with Promus Premier 3.5 x 20 mm stent with a reduction of stenosis to 0% residual. The distal left circumflex and its obtuse marginal branches have diffuse moderate to moderately severe disease which were not intervened on. The right coronary artery is dominant and had 90% proximal stenosis to which successful stenting was carried out with Promus Premier 2.75 x 28 mm stent with reduction of stenosis to 0% residual. The distal right coronary artery has multiple stenoses of 50 to 60%, which were not intervened on. Cardiac cath of 11-11-15 showed well preserved global left ventricular systolic function and ejection fraction of 55 to 60%. Elevated left ventricular end- diastolic pressure which was measured at approximately 20 mmHg. No significant mitral regurgitation. ABIs on 01/13/16 at [place], [place]: 1.1 on both sides Echocardiogram of 09/14/17 (Dr Costello): LVEF 55-65%, dilated LA, supotimal study Chronic bilat leg swelling, likely due to venous insuff, no evidence of DVT on on venous duplex of 09/13/17 Hypertension COPD Quit smoking in early Obesity with BMI approx 63 Obesity-hypoventilation syndrome DM II Diabetic R foot ulcer with cellulitis, being managed by Dr Estrella and medical services Chronic renal insufficiency - chronic likely due in some part to diabetic nephropathy Sleep apnea syndrome - CPAP therapy - managed by Dr. Paris Minimal carotid dz on u/s of November 2015 Electrolyte abnormalities - likely d/t diuretic tx - replace Clinical Quality Measures DVT/VTE Risk/Contraindication: Risk Factor Score Per Nursin RFS Level Per Nursing on Admit: 4+=Very High BENJAMIN ARROYO Nov 27, 2017 08:08
[2017-11-27] MEDS: CEFEPIME 2 GM/NS 100 ML IVPB IV SCH ×4 (08:10→21:45)
[2017-11-27] MEDS: inSUlin DETERMIR 1 UNIT/0.01 ML (LEVEMIR) CHARGE PER UNIT SQ SCH ×2 (08:10→21:47)
[2017-11-27] MEDS ORDERED: KCL 20 MEQ TAB (K-DUR) PO NR ×2 (09:00→12:00)
[2017-11-27] MEDS: ADVAIR HFA 115/21 MCG INHALER 8 GM IH SCH ×2 (10:25→18:23)
[2017-11-27] MEDS: aCETylcysteine 20% (MUCOMYST) 30ML SOLN VIAL INH SCH ×2 (10:26→18:23)
[2017-11-27 12:00] VITALS: BP 128/67
--- NOTE | 2017-11-27 12:10 | Progress Note-Hospitalist ---
Subjective HPI/CC On Admission Date Seen by Provider: Nov 27, 2017 Time Seen by Provider: 12:05 Pt is a 66yoCM with a PMH of COPD, CAD, CHF who presented to the ER for increased SOB. He states over the past month he has had increased SOB but over the past few days he had been needing his inhalers every 2-3 hours. Despite this he has had cough and orthopnea. He also has heart failure for which he takes lasix, bumetanide, and spirolactone but this as not helped. He also thought he right leg was more red than normal and was concerned that his cellulitis was getting worse. Subjective/Events-last exam Pt reports breathing slightly better but still SOB and wheezing. Otherwise eating and drinking well. RN Reports pitting edema in legs. Focused Exam Lactate Level 11/25/17 23:02: Lactic Acid Level 2.22*H 11/26/17 01:00: Lactic Acid Level 1.44 Objective Exam Vital Signs Vital Signs Date Time Temp Pulse Resp B/P (MAP) Pulse Ox O2 Delivery O2 Flow Rate FiO2 11/25/17 21:20 97.0 78 20 132/76 (94) 11/25/17 21:20 95 Nasal Cannula 3.00 Capillary Refill : Less Than 3 Seconds General Appearance: No Apparent Distress, WD/WN Respiratory: No Respiratory Distress, Wheezing Cardiovascular: Regular Rate, Rhythm, No Murmur Gastrointestinal: Normal Bowel Sounds, Soft Extremity: Swelling (2+ to calves) Neurologic/Psychiatric: Alert, Oriented x3, Normal Mood/Affect Results/Procedures Lab Laboratory Tests 11/27/17 05:36 Patient resulted labs reviewed. Imaging: Reviewed Imaging Report Assessment/Plan Assessment and Plan Assess & Plan/Chief Complaint COPD Exacerbation Diagnosis/Problems Diagnosis/Problems (1) COPD (chronic obstructive pulmonary disease) Status: Chronic Assessment & Plan: Pulm consulted, appreciate recs Continue on inhalers Will add steroids for persistent wheezing and dyspnea MAT Protocol Continue mucomyst as he feels congested Qualifiers: COPD type: COPD with acute exacerbation Qualified Codes: J44.1 - Chronic obstructive pulmonary disease with (acute) exacerbation (2) Pneumonia Status: Acute Assessment & Plan: Continue Cefepime Sputum growing GNR Await ID and sensitivities Qualifiers: Pneumonia type: due to unspecified organism Laterality: unspecified laterality Lung location: unspecified part of lung Qualified Codes: J18.9 - Pneumonia, unspecified organism (3) IDDM (insulin dependent diabetes mellitus) Status: Chronic Assessment & Plan: Continue home insulin SSI C May need increase given steroids (4) CAD (coronary artery disease) Status: Chronic Assessment & Plan: Cardiology consulted appreciate recs Continue diuretics Qualifiers: Coronary Disease-Associated Artery/Lesion type: [place] artery [place] vs. transplanted heart: [place] heart Associated angina: without angina Qualified Codes: I25.10 - Atherosclerotic heart disease of [place] coronary artery without angina pectoris (5) Chronic atrial fibrillation Status: Chronic Assessment & Plan: Continue home medications On Eliquis for anticoagulation Cardiology consulted, appreciate recs (6) Cellulitis Assessment & Plan: Continue on cefepime Does not appear to have sepsis Lactic acid likely to due CHF Qualifiers: Site of cellulitis: extremity Site of cellulitis of extremity: lower extremity Laterality: right Qualified Codes: L03.115 - Cellulitis of right lower limb (7) Hypokalemia Assessment & Plan: likely due to diuretics Replaced per cardiology this AM Check in AM (8) Chronic kidney disease Status: Chronic Assessment & Plan: Tobacco Educator 1.25 today Qualifiers: Chronic kidney disease stage: stage 3 (moderate) Qualified Codes: N18.3 - Chronic kidney disease, stage 3 (moderate) (9) Prophylactic measure Assessment & Plan: Eliquis ADA Saline Lock Clinical Quality Measures DVT/VTE Risk/Contraindication: Risk Factor Score Per Nursin RFS Level Per Nursing on Admit: 4+=Very High BRANDEN DELACRUZ MD Nov 27, 2017 12:10 pm
[2017-11-27] MEDS: predniSONE 20 MG TAB PO SCH (14:05)
--- NOTE | 2017-11-27 15:11 | Pulmonary Progress Note ---
Subjective Time Seen by Provider: 15:10 Focused Exam Lactate Level 11/25/17 23:02: Lactic Acid Level 2.22*H 11/26/17 01:00: Lactic Acid Level 1.44 Exam Exam Vital Signs Date Time Temp Pulse Resp B/P (MAP) Pulse Ox O2 Delivery O2 Flow Rate FiO2 11/27/17 14:55 95 Nasal Cannula 3.00 11/27/17 12:00 96.8 78 20 128/67 (87) 95 Nasal Cannula 3.00 11/27/17 10:30 94 Nasal Cannula 3.00 11/27/17 09:00 Nasal Cannula 3.00 11/27/17 08:00 96.5 89 22 139/78 (98) 95 Nasal Cannula 3.00 11/27/17 06:40 94 Nasal Cannula 3.00 11/27/17 04:00 99.1 69 22 143/65 (91) 95 NIV CPAP 3.00 11/27/17 02:23 97 NIV CPAP 3.00 11/27/17 00:03 98.0 78 24 157/85 (109) 97 NIV CPAP 3.00 11/26/17 22:13 90 NIV CPAP 3.00 11/26/17 21:00 Nasal Cannula 3.00 11/26/17 20:28 98.2 75 18 129/60 (83) 100 Nasal Cannula 3.00 3.00 11/26/17 18:34 96 Nasal Cannula 3.00 11/26/17 16:13 97.1 67 26 122/59 (80) 98 Nasal Cannula 3.00 3.00 11/26/17 15:15 98 Nasal Cannula 3.00 I & O 11/27/17 07:00 Intake Total 3270 ml Output Total 2950 ml Balance 320 ml General Appearance: No Apparent Distress, WD/WN HEENT: PERRL/EOMI, Moist Mucous Membranes Neck: Non Tender, Supple Respiratory: No Respiratory Distress, Wheezing Cardiovascular: Regular Rate, Rhythm, No Murmur Capillary Refill: Less Than 3 Seconds Gastrointestinal: normal bowel sounds, non tender, soft Extremity: Swelling (2+ to calves) Neurologic/Psychiatric: Alert, Oriented x3, Normal Mood/Affect Skin: Normal Color, Warm/Dry, Erythema (lower extremity) Results Lab Laboratory Tests 11/25/17 21:31 11/26/17 05:24 11/27/17 05:36 Assessment/Plan Assessment/Plan Acute on chronic respiratory failure -Monitor, oxygen -Check 2 view CXR this AM COPDAE with persistent cough- -oxygen -SVNs PNA -Check Cabrera cultures - cefepime -IVF -oxygen Anemia -monitor -check occult stools. Allergic rhinitis -Claritin, Singulair, and Flonase. Morbid obesity with JOSE MANUEL -Home CPAP Chronic Afib and CAD -Cardiology following CKD IDDM Cellulitis and abscess of foot 232 RAIMUNDO MATTHEWS DO Nov 27, 2017 15:10
[2017-11-27 15:33] VITALS: BP 122/70
--- NOTE | 2017-11-27 16:41 | Consultation-Cardiology ---
HPI-Cardiology Cardiology Consultation: Date of Consultation 11/27/17 Time Seen by Provider: 16:15 Date of Admission Attending Physician Sam Richey MD Admitting Physician America Hutton DO Consulting Physician CATY PENALOZA MD, MA, FACP, FACC, FSCAI, CCDS HPI: Chief Complaint: Dyspnea Lower extremity edema Mr. Ferraro is a 66 year old male admitted to [facility] from the ED with c/o increasing shortness of breath and lower extremity edema. He reports he has chronic SOB, but starting on Sunday it became progressively worse. He reports his chronic lower extremity edema also became increasingly worse. He reports he had some redness to his legs bilat and was concerned this was d/t cellulitis. He reports occ lose cough. He reports chills on Sunday. He denies any CP, palpitations, syncope or near syncope. He states he feels his breathing is better today, but not yet back to baseline. He also reports the redness and swelling to his legs has also improved. No c/o n/v/d. No report of fever. Review of Systems-Cardiology Review of Systems Constitutional: chills; No fever Eyes: No vision change Ears/Nose/Throat: No epistaxis, No nasal drainage Respiratory: As described under HPI Cardiovascular: As described under HPI Gastrointestinal: No constipation, No diarrhea, No nausea, No vomiting Genitourinary: No dysuria, No hematuria Musculoskeletal: joint pain (chronic) Skin: As described under HPI Psychiatric/Neurological: No anxiety, No depression, No focal weakness, No syncope Hematologic: No bleeding abnormalities RDF-Yaqcni-Ctpime Hx Patient Social History Marrital Status: Alcohol Use: Occasionally Uses Recreational Drug Use: No Smoking Status: Former Smoker Former smoker/When Quit: Aug 13, 2006 Type Used: Cigarettes Recent Foreign Travel: No Recent Infectious Disease Expo: No Hospitalization with Isolation: Contact Physical Abuse Screen: No Sexual Abuse: No Immunizations Up To Date Tetanus Booster (TDap): Less than 5yrs Date of Pneumonia Vaccine: May 13, 2017 Date of Influenza Vaccine: May 13, 2017 Past Medical History PMH As described under Assessment. Family Medical History Family Medical History: Reports mother had CAD and CHF. No reported h/o premature CAD or SCD. Family History: Cancer 03 FATHER Congestive heart failure 03 MOTHER Family history: Arthritis 03 MOTHER Family history: Asthma 03 MOTHER Family history: Cardiovascular disease 03 MOTHER Family history: Diabetes mellitus 09 BROTHER Family history: Gastrointestinal disease 03 FATHER History of drug abuse 09 BROTHER Allergies and Home Medications Allergies Coded Allergies: Wtrzgut-Xgv-Dfo Reductase Inhibitor (Verified Allergy, Unknown, 10/15/17) codeine (Verified Allergy, Unknown, 10/15/17) fish oil (Verified Allergy, Unknown, 10/15/17) Home Medications Albuterol Sulfate 2.5 Mg/3 Ml Vial.neb, 2.5 MG NEB Q4H PRN for SHORTNESS OF BREATH, (Reported) Albuterol Sulfate 1 Puff Puff, 2 PUFF INH Q4H PRN for SHORTNESS OF BREATH, ( Reported) Apixaban 5 Mg Tablet, 5 MG PO BID, (Reported) Cetirizine HCl/Pseudoephedrine 1 Each Tab.er.12h, 1 TAB PO DAILY, (Reported) Clopidogrel Bisulfate 75 Mg Tablet, 75 MG PO DAILY, (Reported) Diltiazem HCl 240 Mg Cap.er.deg, 240 MG PO DAILY, (Reported) Docusate Sodium 100 Mg Capsule, 500 MG PO DAILY PRN for CONSTIPATION-1ST LINE, ( Reported) Esomeprazole Magnesium 20 Mg Capsule.dr, 20 MG PO HS, (Reported) Finasteride 5 Mg Tablet, 2.5 MG PO HS, (Reported) TAKES 1/2 (5MG) TABLET Fluticasone/Salmeterol 1 Each Blst.w.dev, 1 PUFF IH BID, (Reported) Furosemide 40 Mg Tablet, 80 MG PO DAILY, (Reported) TAKES 2 (40MG) TABLETS Hydrocodone Bit/Acetaminophen 1 Each Tablet, 1 TAB PO Q6H PRN for PAIN-MODERATE, (Reported) Insulin Detemir 100 Unit/1 Ml Insuln.pen, 20 UNITS SC BID, (Reported) Insulin Lispro 100 Unit/1 Ml Insuln.pen, 50 UNITS SQ ACHS, (Reported) Lactulose 10 Gm/15 Ml Solution, 2 TBS PO Q4H PRN for CONSTIPATION-3RD LINE, ( Reported) Levothyroxine Sodium 25 Mcg Tablet, 25 MCG PO DAILY, (Reported) Lidocaine 1 Each Adh..patch, 1 PATCH TP DAILY PRN for KNEE/BACK PAIN, (Reported) 5% Meloxicam 15 Mg Tablet, 15 MG PO DAILY, (Reported) Metolazone 5 Mg Tablet, 5 MG PO DAILY, (Reported) Metoprolol Succinate 50 Mg Tab.er.24h, 50 MG PO DAILY, (Reported) Montelukast Sodium 10 Mg Tablet, 10 MG PO HS, (Reported) Potassium Chloride 10 Meq Tablet.er, 20 MEQ PO BID, (Reported) TAKES 2 (10MEQ) TABLETS Rosuvastatin Calcium 5 Mg Tablet, 5 MG PO DAILY, (Reported) Sennosides 15 Mg Tablet, 1 TAB PO DAILY PRN for CONSTIPATION-5TH LINE, (Reported ) Spironolactone 25 Mg Tablet, 50 MG PO DAILY, (Reported) TAKES 2 (25MG) TABLETS Sulfamethoxazole/Trimethoprim 1 Each Tablet, 1 TAB PO DAILY, (Reported) Tamsulosin HCl 0.4 Mg Cap.er.24h, 0.4 MG PO DAILY, (Reported) Patient Home Medication List Home Medication List Reviewed: Yes Physical Exam-Cardiology Physical Exam Vital Signs/I&O 11/27/17 11/27/17 11/27/17 11/27/17 06:40 08:00 09:00 10:30 Temp 96.5 Pulse 89 Resp 22 B/P (MAP) 139/78 (98) Pulse Ox 94 95 94 O2 Delivery Nasal Cannula Nasal Cannula Nasal Cannula Nasal Cannula O2 Flow Rate 3.00 3.00 3.00 3.00 11/27/17 11/27/17 12:00 14:55 Temp 96.8 Pulse 78 Resp 20 B/P (MAP) 128/67 (87) Pulse Ox 95 95 O2 Delivery Nasal Cannula Nasal Cannula O2 Flow Rate 3.00 3.00 11/27/17 00:00 Intake Total 1990 ml Output Total 1850 ml Balance 140 ml Capillary Refill : Less Than 3 Seconds Constitutional: AAO x 3, well-developed, well-nourished HEENT: PERRL, hearing is well preserved, oral hygience is good; No xanthelasmas are seen Neck: No carotid bruit Respiratory: crackles (bi-basilar), other (prolonged expiratory phase) Cardiovascular: irregularly irregular; No JVD; S1 and S2 Gastrointestinal: No tender; soft, audible bowel sounds Rectal: deferred Extremities: significant edema (bilat LE edema) Neurologic/Psychiatric: grossly intact, power is 5/5 both on sides Skin: other (redness to LE bilat) Data Review Labs Laboratory Tests 11/26/17 20:27: Glucometer 162H 11/27/17 01:50: Glucometer 72 11/27/17 05:28: Glucometer 118H 11/27/17 05:36: White Blood Count 11.3H, Red Blood Count 3.04L, Hemoglobin 8.0L, Hematocrit 26L , Mean Corpuscular Volume 86, Mean Corpuscular Hemoglobin 26, Mean Corpuscular Hemoglobin Concent 31L, Red Cell Distribution Width 15.6H, Platelet Count 330, Mean Platelet Volume 10.0, Neutrophils (%) (Auto) 69, Lymphocytes (%) (Auto) 14 , Monocytes (%) (Auto) 11, Eosinophils (%) (Auto) 5, Basophils (%) (Auto) 1, Neutrophils # (Auto) 7.8, Lymphocytes # (Auto) 1.6, Monocytes # (Auto) 1.3H, Eosinophils # (Auto) 0.5H, Basophils # (Auto) 0.1, Sodium Level 134L, Potassium Level 3.1L, Chloride Level 100, Carbon Dioxide Level 24, Anion Gap 10, Blood Urea Nitrogen 23H, Creatinine 1.25, Estimat Glomerular Filtration Rate 58, BUN/ Creatinine Ratio 18, Glucose Level 101, Calcium Level 9.0 11/27/17 11:18: Glucometer 212H 11/27/17 15:36: Glucometer 299H Microbiology 11/25/17 Blood Culture - Preliminary, Resulted No growth 11/26/17 Gram Stain - Final, Resulted 11/26/17 Sputum Culture - Preliminary, Resulted Enterobacter aerogenes A/P-Cardiology Assessment/Admission Diagnosis Dyspnea likely multifactorial - ac on chronic diastolic CHF, ac exacerbation of COPD, pneumonia and obesity hypoventilation syndrome Acute on chr exacerbation of COPD Pneumonia - management per medical services Ac on chronic diastolic CHF - continue diuretic regimen Persistent a-fib first diagnosed in early February 2016, rate controlled Anemia of undetermined etiology OAC with Eliquis CAD with a h/o CABG in 2006 at [facility] in [place], [place]. On cardiac cath of 11-11-15: Multivessel coronary disease including multiple more than 90% stenosis of the proximal and mid left anterior descending artery. The mid to distal left anterior descending artery is protected with a widely patent left internal mammary artery graft. The left circumflex artery had 99% ostial/ proximal stenosis to which successful stenting was carried out with Promus Premier 3.5 x 20 mm stent with a reduction of stenosis to 0% residual. The distal left circumflex and its obtuse marginal branches have diffuse moderate to moderately severe disease which were not intervened on. The right coronary artery is dominant and had 90% proximal stenosis to which successful stenting was carried out with Promus Premier 2.75 x 28 mm stent with reduction of stenosis to 0% residual. The distal right coronary artery has multiple stenoses of 50 to 60%, which were not intervened on. Cardiac cath of 11-11-15 showed well preserved global left ventricular systolic function and ejection fraction of 55 to 60%. Elevated left ventricular end- diastolic pressure which was measured at approximately 20 mmHg. No significant mitral regurgitation. ABIs on 01/13/16 at [place], [place]: 1.1 on both sides Echocardiogram of 09/14/17 (Dr Costello): LVEF 55-65%, dilated LA, supotimal study Chronic bilat leg swelling, likely due to venous insuff, no evidence of DVT on on venous duplex of 09/13/17 Hypertension COPD Quit smoking in early Obesity with BMI approx 63 Obesity-hypoventilation syndrome DM II Diabetic R foot ulcer with cellulitis, being managed by Dr Estrella and medical services Chronic renal insufficiency - chronic likely due in some part to diabetic nephropathy Sleep apnea syndrome - CPAP therapy - managed by Dr. Paris Minimal carotid dz on u/s of November 2015 Electrolyte abnormalities - likely d/t diuretic tx - replace Discussion and Recomendations * He suffers from multiple comorbidities that are outlined above * Continue diuretic regimen * Monitor labs * I discussed his CV issues with him and answered questions Clinical Quality Measures DVT/VTE Risk/Contraindication: Risk Factor Score Per Nursin RFS Level Per Nursing on Admit: 4+=Very High CATY PENALOZA MD FACP FAC CCDS Nov 27, 2017 16:41
[2017-11-27 19:17] VITALS: BP 135/80
[2017-11-27] MEDS: FINASTERIDE (PROSCAR) 5 MG TAB PO SCH (21:46)
[2017-11-27] MEDS: MONTELUKAST 10 MG (SINGULAIR) TAB PO SCH (21:46)
[2017-11-28] VITALS: BP 121/63
[2017-11-28] MEDS: RT-ALBUTEROL/IPRATROPIUM 3 ML (DUONEB) VIAL INH SCH ×6 (02:14→22:54)
[2017-11-28 04:00] VITALS: BP 109/56
--- NOTE | 2017-11-28 05:32 | Pulmonary Progress Note ---
Focused Exam Lactate Level 11/25/17 23:02: Lactic Acid Level 2.22*H 11/26/17 01:00: Lactic Acid Level 1.44 Exam Exam Vital Signs Date Time Temp Pulse Resp B/P (MAP) Pulse Ox O2 Delivery O2 Flow Rate FiO2 11/28/17 02:15 92 Nasal Cannula 3.00 11/28/17 00:00 97.5 68 21 121/63 (82) 97 NIV CPAP 3.00 11/27/17 22:43 95 NIV CPAP 3.00 11/27/17 21:00 Nasal Cannula 3.00 11/27/17 19:17 98.8 77 22 135/80 (98) 94 Nasal Cannula 3.00 11/27/17 18:26 93 Nasal Cannula 3.00 11/27/17 15:33 98.4 72 18 122/70 (87) 98 Nasal Cannula 3.00 11/27/17 14:55 95 Nasal Cannula 3.00 11/27/17 12:00 96.8 78 20 128/67 (87) 95 Nasal Cannula 3.00 11/27/17 10:30 94 Nasal Cannula 3.00 11/27/17 09:00 Nasal Cannula 3.00 11/27/17 08:00 96.5 89 22 139/78 (98) 95 Nasal Cannula 3.00 11/27/17 06:40 94 Nasal Cannula 3.00 I & O 11/28/17 07:00 Intake Total 2140 ml Output Total 3975 ml Balance -1835 ml General Appearance: No Apparent Distress, WD/WN HEENT: PERRL/EOMI, Moist Mucous Membranes Neck: Non Tender, Supple Respiratory: No Respiratory Distress, Wheezing Cardiovascular: Regular Rate, Rhythm, No Murmur Capillary Refill: Less Than 3 Seconds Gastrointestinal: normal bowel sounds, non tender, soft Extremity: Swelling (2+ to calves) Neurologic/Psychiatric: Alert, Oriented x3, Normal Mood/Affect Skin: Normal Color, Warm/Dry, Erythema (lower extremity) Results Lab Laboratory Tests 11/27/17 05:36 Assessment/Plan Assessment/Plan Acute on chronic respiratory failure -Monitor, oxygen -Check 2 view CXR this AM COPDAE with persistent cough- -oxygen -SVNs -prednisone Pulmonary edema -Continue lasix PNA with Enterobacter -Check Cabrera cultures - cefepime -IVF -oxygen Anemia -monitor -check occult stools. Allergic rhinitis -Claritin, Singulair, and Flonase. Morbid obesity with JOSE MANUEL -Home CPAP Chronic Afib and CAD -Cardiology following CKD IDDM Cellulitis and abscess of foot 232 RAIMUNDO MATTHEWS DO Nov 28, 2017 05:32
[2017-11-28] MEDS: KCL 10 MEQ TAB (MICRO K) PO SCH (06:04)
[2017-11-28] MEDS: inSUlin ASPART (NovoLOG) 1 UNIT/0.01 ML (CHARGE PER UNIT) SC SCH ×8 (06:04→21:00)
[2017-11-28] MEDS: LEVOTHYROXINE 25 MCG (LEVOTHROID) TAB PO SCH (06:04)
[2017-11-28] MEDS: predniSONE 20 MG TAB PO SCH (06:04)
[2017-11-28 06:14] LABS: BASOPHILS % (AUTO) 0 % (0-10); EOSINOPHILS % (AUTO) 0 % (0-10); HEMATOCRIT 25 % (40-54); HEMOGLOBIN 8.1 G/DL (13.3-17.7); LYMPHOCYTES # (AUTO) 1.6 X 10^3 (1.0-4.0); LYMPHOCYTES % (AUTO) 13 % (12-44); MEAN CORPUSCULAR HEMOGLOBIN 27 PG (25-34); MEAN CORPUSCULAR HGB CONC 32 G/DL (32-36); MEAN CORPUSCULAR VOLUME 85 FL (80-99); MEAN PLATELET VOLUME 9.9 FL (7.4-10.4); MONOCYTES # (AUTO) 1.3 X 10^3 (0.0-1.0); MONOCYTES % (AUTO) 10 % (0-12); NEUTROPHILS # (AUTO) 10.2 X 10^3 (1.8-7.8); NEUTROPHILS % (AUTO) 78 % (42-75); PLATELET COUNT 357 10^3/uL (130-400); RED BLOOD COUNT 2.99 10^6/uL (4.35-5.85); RED CELL DISTRIBUTION WIDTH 15.8 % (10.0-14.5); WHITE BLOOD COUNT 13.1 10^3/uL (4.3-11.0)
[2017-11-28 06:38] LABS: BILIRUBIN,TOTAL 0.5 MG/DL (0.1-1.0); CALCIUM 9.6 MG/DL (8.5-10.1); CREATININE SERUM 1.25 MG/DL (0.60-1.30); POTASSIUM 3.5 MMOL/L (3.6-5.0); TOTAL PROTEIN 7.6 GM/DL (6.4-8.2)
[2017-11-28] MEDS: aCETylcysteine 20% (MUCOMYST) 30ML SOLN VIAL INH SCH ×2 (06:55→18:31)
[2017-11-28] MEDS: ADVAIR HFA 115/21 MCG INHALER 8 GM IH SCH ×2 (06:57→18:34)
[2017-11-28 07:43] VITALS: BP 130/61
[2017-11-28] MEDS: inSUlin DETERMIR 1 UNIT/0.01 ML (LEVEMIR) CHARGE PER UNIT SQ SCH ×2 (09:31→20:59)
[2017-11-28] MEDS: METOLAZONE 5 MG (ZAROXOLYN) TAB PO SCH (09:32)
[2017-11-28] MEDS: CIPROFLOXACIN 500 MG (CIPRO) TABLET PO SCH ×2 (09:32→21:00)
[2017-11-28] MEDS: LORATADINE (CLARITIN) 10 MG TAB PO SCH (09:32)
[2017-11-28] MEDS: DILTIAZEM 240 MG (CARDIZEM CD) CAP PO SCH (09:32)
[2017-11-28] MEDS: meTOproloL SUCCINATE 50 MG (TOPROL XL) TAB PO SCH (09:32)
[2017-11-28] MEDS: APIXABAN 5 MG (ELIQUIS) TABLET PO SCH ×2 (09:32→21:00)
[2017-11-28] MEDS: FLUTICASONE NASAL SPRAY (FLONASE) 16 GM BTL NS SCH ×2 (09:32→20:59)
[2017-11-28] MEDS: CLOPIDOGREL 75 MG (PLAVIX) TABLET PO SCH (09:32)
[2017-11-28] MEDS: FUROSEMIDE 40 MG (LASIX) TAB PO SCH (09:32)
--- NOTE | 2017-11-28 09:49 | Progress Note-Cardiology ---
Cardiology SOAP Progress Note Subjective: C/O SOB and feeling congested in his lungs. No c/o CP or palpitations. Feels LE edema has improved Objective: I&O/Vital Signs 11/28/17 11/28/17 11/28/17 11/28/17 02:15 04:00 06:55 07:43 Temp 97.5 97.9 Pulse 65 78 Resp 19 20 B/P (MAP) 109/56 (73) 130/61 (84) Pulse Ox 92 96 95 93 O2 Delivery Nasal Cannula NIV CPAP Nasal Cannula Nasal Cannula O2 Flow Rate 3.00 3.00 3.00 3.00 11/28/17 10:39 Pulse Ox 96 O2 Delivery Nasal Cannula O2 Flow Rate 3.00 11/28/17 00:00 Intake Total 2040 ml Output Total 3975 ml Balance -1935 ml Weight (Pounds): 403 Weight (Ounces): 2.0 Weight (Calculated Kilograms): [phone] Constitutional: AAO x 3, well-developed, well-nourished Respiratory: crackles (bi-basilar), other (prolonged expiratory phase) Cardiovascular: irregularly irregular; No JVD; S1 and S2 Gastrointestional: No tender; soft, audible bowel sounds Extremities: significant edema (bilat LE edema) Neurologic/Psychiatric: grossly intact, power is 5/5 both on sides Skin: No rash, No ulcerations Results/Procedures: Labs Laboratory Tests 11/27/17 15:36: Glucometer 299H 11/27/17 20:17: Glucometer 319H 11/28/17 05:09: White Blood Count 13.1H, Red Blood Count 2.99L, Hemoglobin 8.1L, Hematocrit 25L , Mean Corpuscular Volume 85, Mean Corpuscular Hemoglobin 27, Mean Corpuscular Hemoglobin Concent 32, Red Cell Distribution Width 15.8H, Platelet Count 357, Mean Platelet Volume 9.9, Neutrophils (%) (Auto) 78H, Lymphocytes (%) (Auto) 13 , Monocytes (%) (Auto) 10, Eosinophils (%) (Auto) 0, Basophils (%) (Auto) 0, Neutrophils # (Auto) 10.2H, Lymphocytes # (Auto) 1.6, Monocytes # (Auto) 1.3H, Eosinophils # (Auto) 0.0, Basophils # (Auto) 0.0, Sodium Level 134L, Potassium Level 3.5L, Chloride Level 99, Carbon Dioxide Level 24, Anion Gap 11, Blood Urea Nitrogen 25H, Creatinine 1.25, Estimat Glomerular Filtration Rate 58, BUN/ Creatinine Ratio 20, Glucose Level 178H, Calcium Level 9.6, Magnesium Level 2.0 , Total Bilirubin 0.5, Aspartate Amino Transf (AST/SGOT) 16, Alanine Aminotransferase (ALT/SGPT) 15, Alkaline Phosphatase 77, Total Protein 7.6, Albumin 4.0 11/28/17 05:39: Glucometer 181H 11/28/17 10:52: Glucometer 205H Microbiology 11/25/17 Blood Culture - Preliminary, Resulted No growth 11/26/17 Gram Stain - Final, Complete 11/26/17 Sputum Culture - Final, Complete Enterobacter aerogenes Normal swetha Laboratory Tests 11/27/17 05:36 11/28/17 05:09 A/P: Assessment: Dyspnea likely multifactorial - ac on chronic diastolic CHF, ac exacerbation of COPD, pneumonia and obesity hypoventilation syndrome Acute on chr exacerbation of COPD Pneumonia - management per medical services Ac on chronic diastolic CHF - continue diuretic regimen Persistent a-fib first diagnosed in early February 2016, rate controlled Anemia of undetermined etiology OAC with Eliquis CAD with a h/o CABG in 2006 at [facility] in [place], [place]. On cardiac cath of 11-11-15: Multivessel coronary disease including multiple more than 90% stenosis of the proximal and mid left anterior descending artery. The mid to distal left anterior descending artery is protected with a widely patent left internal mammary artery graft. The left circumflex artery had 99% ostial/ proximal stenosis to which successful stenting was carried out with Promus Premier 3.5 x 20 mm stent with a reduction of stenosis to 0% residual. The distal left circumflex and its obtuse marginal branches have diffuse moderate to moderately severe disease which were not intervened on. The right coronary artery is dominant and had 90% proximal stenosis to which successful stenting was carried out with Promus Premier 2.75 x 28 mm stent with reduction of stenosis to 0% residual. The distal right coronary artery has multiple stenoses of 50 to 60%, which were not intervened on. Cardiac cath of 11-11-15 showed well preserved global left ventricular systolic function and ejection fraction of 55 to 60%. Elevated left ventricular end- diastolic pressure which was measured at approximately 20 mmHg. No significant mitral regurgitation. ABIs on 01/13/16 at [facility], [place], [place]: 1.1 on both sides Echocardiogram of 09/14/17 (Dr Costello): LVEF 55-65%, dilated LA, supotimal study Chronic bilat leg swelling, likely due to venous insuff, no evidence of DVT on on venous duplex of 09/13/17 Hypertension COPD Quit smoking in early Obesity with BMI approx 63 Obesity-hypoventilation syndrome DM II Chronic renal insufficiency - chronic likely due in some part to diabetic nephropathy Sleep apnea syndrome - CPAP therapy - managed by Dr. Paris Minimal carotid dz on u/s of November 2015 Electrolyte abnormalities - likely d/t diuretic tx - replace Plan: * He suffers from multiple comorbidities that are outlined above * Continue diuretic regimen * Monitor labs * Dr. Bishop discussed his CV issues with him and answered questions * Anemia of undetermined etiology - management per medical services * Replace electrolytes BENJAMIN ARROYO Nov 28, 2017 09:49
--- NOTE | 2017-11-28 10:22 | Progress Note-Hospitalist ---
Subjective HPI/CC On Admission Date Seen by Provider: Nov 28, 2017 Time Seen by Provider: 10:00 Pt is a 66yoCM with a PMH of COPD, CAD, CHF who presented to the ER for increased SOB. He states over the past month he has had increased SOB but over the past few days he had been needing his inhalers every 2-3 hours. Despite this he has had cough and orthopnea. He also has heart failure for which he takes lasix, bumetanide, and spirolactone but this as not helped. He also thought he right leg was more red than normal and was concerned that his cellulitis was getting worse. Subjective/Events-last exam Patient doing a little better but still feels upper respiratory infection congestion Reviewed sputum culture and modified antibiotics to Cipjerald Hasn't had a BM since this weekend when he had several loose stools after taking lactulose Denies any pain issues Not able to walk around too much Overall he is stable but his prognosis remains poor considering his advanced COPD and volume overload and multiple other medical issues Checked meds and labs and imaging scans Review of Systems General: Malaise Pulmonary: Dyspnea, Cough Gastrointestinal: Constipation Focused Exam Lactate Level 11/25/17 23:02: Lactic Acid Level 2.22*H 11/26/17 01:00: Lactic Acid Level 1.44 Objective Exam Vital Signs Vital Signs Date Time Temp Pulse Resp B/P (MAP) Pulse Ox O2 Delivery O2 Flow Rate FiO2 11/28/17 07:43 97.9 78 20 130/61 (84) 93 Nasal Cannula 3.00 Capillary Refill : Less Than 3 Seconds General Appearance: No Apparent Distress, WD/WN, Chronically ill, Obese Respiratory: Lungs Clear, Normal Breath Sounds, No Accessory Muscle Use, No Respiratory Distress Cardiovascular: Irregularly Irregular Extremity: Pedal Edema Neurologic/Psychiatric: Alert, Oriented x3, No Motor/Sensory Deficits, Normal Mood/Affect, elevated guard II-XII Norm as Tested Skin: Normal Color, Warm/Dry Lymphatic: No Adenopathy Results/Procedures Lab Laboratory Tests 11/28/17 05:09 Patient resulted labs reviewed. Imaging: Reviewed Imaging Report Assessment/Plan Assessment and Plan Assess & Plan/Chief Complaint Pneumonia with Enterobacter Volume overload AECOPD AF CHF DM CRI JOSE MANUEL Constipation Plan: Cipro Nebs O2 Constipation treatment Home meds insulin Diagnosis/Problems Diagnosis/Problems (1) Pneumonia Status: Acute Qualifiers: Pneumonia type: due to unspecified organism Laterality: unspecified laterality Lung location: unspecified part of lung Qualified Codes: J18.9 - Pneumonia, unspecified organism (2) COPD (chronic obstructive pulmonary disease) with acute bronchitis Status: Acute (3) Chronic atrial fibrillation Status: Chronic (4) Chronic kidney disease Status: Chronic Qualifiers: Chronic kidney disease stage: stage 3 (moderate) Qualified Codes: N18.3 - Chronic kidney disease, stage 3 (moderate) (5) CAD (coronary artery disease) Status: Chronic Qualifiers: Coronary Disease-Associated Artery/Lesion type: [place] artery [place] vs. transplanted heart: [place] heart Associated angina: without angina Qualified Codes: I25.10 - Atherosclerotic heart disease of [place] coronary artery without angina pectoris (6) IDDM (insulin dependent diabetes mellitus) Status: Chronic Clinical Quality Measures DVT/VTE Risk/Contraindication: Risk Factor Score Per Nursin RFS Level Per Nursing on Admit: 4+=Very High CHAO PAT DO Nov 28, 2017 10:21
[2017-11-28] MEDS: POLYETHYLENE GLYCOL 17 GM (MIRALAX) PACK PO SCH ×2 (11:48→20:59)
[2017-11-28 12:00] VITALS: BP 121/63
--- NOTE | 2017-11-28 13:28 | Diagnostic Imaging Report ---
INDICATION: Abnormal breath sounds. TECHNIQUE: Two view chest at 10:53 AM. CORRELATION STUDY: 11/26/2017. FINDINGS: Post sternotomy changes with multiple fragmented sternal wires. Unchanged cardiac enlargement. There is presence of vascular congestion which does appear to be slightly improved. Mildly prominent interstitial markings appear improved with overall improved aeration through the lung araiza. No definitive consolidating infiltrate. Multilevel degenerative changes about the thoracic spine. Disc space narrowing and endplate osteophyte formation are present. Asymmetrically advanced degenerative changes of the left shoulder. IMPRESSION: There is cardiac enlargement and pulmonary vascular congestion which overall appear to be somewhat less severe from the prior study. Dictated by: Dictated on workstation # [id number]
[2017-11-28 16:00] VITALS: BP 131/73
[2017-11-28] MEDS: MONTELUKAST 10 MG (SINGULAIR) TAB PO SCH (21:00)
[2017-11-28] MEDS: SENNA W/DOCUSATE (SENOKOT S) TABLET PO SCH (21:00)
[2017-11-28] MEDS: FINASTERIDE (PROSCAR) 5 MG TAB PO SCH (21:00)
[2017-11-29] VITALS: BP 105/47
[2017-11-29] MEDS: RT-ALBUTEROL/IPRATROPIUM 3 ML (DUONEB) VIAL INH SCH ×6 (02:50→22:09)
[2017-11-29] MEDS: KCL 10 MEQ TAB (MICRO K) PO SCH (05:35)
[2017-11-29] MEDS: inSUlin ASPART (NovoLOG) 1 UNIT/0.01 ML (CHARGE PER UNIT) SC SCH ×8 (05:35→20:39)
[2017-11-29] MEDS: predniSONE 20 MG TAB PO SCH (05:35)
[2017-11-29] MEDS: LEVOTHYROXINE 25 MCG (LEVOTHROID) TAB PO SCH (05:35)
[2017-11-29 05:45] LABS: BASOPHILS # (AUTO) 0.1 10^3/uL (0.0-0.1); BASOPHILS % (AUTO) 0 % (0-10); EOSINOPHILS # (AUTO) 0.3 10^3/uL (0.0-0.3); EOSINOPHILS % (AUTO) 2 % (0-10); HEMATOCRIT 27 % (40-54); HEMOGLOBIN 8.3 G/DL (13.3-17.7); LYMPHOCYTES # (AUTO) 2.8 X 10^3 (1.0-4.0); LYMPHOCYTES % (AUTO) 18 % (12-44); MEAN CORPUSCULAR HEMOGLOBIN 26 PG (25-34); MEAN CORPUSCULAR HGB CONC 31 G/DL (32-36); MEAN CORPUSCULAR VOLUME 85 FL (80-99); MEAN PLATELET VOLUME 9.1 FL (7.4-10.4); MONOCYTES % (AUTO) 13 % (0-12); NEUTROPHILS # (AUTO) 10.1 X 10^3 (1.8-7.8); NEUTROPHILS % (AUTO) 66 % (42-75); PLATELET COUNT 352 10^3/uL (130-400); RED BLOOD COUNT 3.14 10^6/uL (4.35-5.85); RED CELL DISTRIBUTION WIDTH 15.6 % (10.0-14.5); WHITE BLOOD COUNT 15.3 10^3/uL (4.3-11.0)
[2017-11-29 05:59] LABS: ANISOCYTOSIS SLIGHT; BAND NEUTROPHILS 2 %; BASOPHILS % (MANUAL) 0 %; EOSINOPHILS % (MANUAL) 2 %; HYPOCHROMASIA SLIGHT; LYMPHOCYTES % (MANUAL) 23 %; MONOCYTES % (MANUAL) 11 %; NEUTROPHILS % (MANUAL) 62 %; POLYCHROMASIA SLIGHT; STOMATOCYTES SLIGHT; TARGET CELLS SLIGHT
[2017-11-29 06:07] LABS: ALBUMIN 3.8 GM/DL (3.2-4.5); BILIRUBIN,TOTAL 0.3 MG/DL (0.1-1.0); CALCIUM 9.4 MG/DL (8.5-10.1); CREATININE SERUM 1.26 MG/DL (0.60-1.30); POTASSIUM 3.1 MMOL/L (3.6-5.0); TOTAL PROTEIN 7.2 GM/DL (6.4-8.2)
--- NOTE | 2017-11-29 07:07 | Pulmonary Progress Note ---
Subjective Time Seen by Provider: 07:09 Subjective/Events-last exam Pt is doing better. He is setting up on edge of bed eating a large breakfast. Exam Exam Vital Signs Date Time Temp Pulse Resp B/P (MAP) Pulse Ox O2 Delivery O2 Flow Rate FiO2 11/29/17 02:51 96 NIV CPAP 3.00 11/29/17 00:00 97.3 78 22 105/47 (66) 93 NIV CPAP 3.00 11/28/17 22:55 96 NIV CPAP 3.00 11/28/17 21:00 Nasal Cannula 3.00 11/28/17 18:32 96 Nasal Cannula 3.00 11/28/17 16:00 97.9 75 24 131/73 (92) 94 Nasal Cannula 3.00 11/28/17 14:38 95 Nasal Cannula 3.00 11/28/17 12:00 98.0 77 20 121/63 (82) 93 Nasal Cannula 3.00 11/28/17 10:39 96 Nasal Cannula 3.00 11/28/17 09:00 Nasal Cannula 3.00 11/28/17 07:43 97.9 78 20 130/61 (84) 93 Nasal Cannula 3.00 I & O 11/29/17 07:00 Intake Total 2220 ml Output Total 3825 ml Balance -1605 ml General Appearance: No Apparent Distress, WD/WN, Chronically ill, Obese HEENT: PERRL/EOMI, Moist Mucous Membranes Neck: Non Tender, Supple Respiratory: Lungs Clear, Normal Breath Sounds, No Accessory Muscle Use, No Respiratory Distress Cardiovascular: Irregularly Irregular Capillary Refill: Less Than 3 Seconds Gastrointestinal: normal bowel sounds, non tender, soft Extremity: Pedal Edema Neurologic/Psychiatric: Alert, Oriented x3, No Motor/Sensory Deficits, Normal Mood/Affect, product support specialist II-XII Norm as Tested Skin: Normal Color, Warm/Dry Lymphatic: No Adenopathy Results Lab Laboratory Tests 11/28/17 05:09 11/29/17 05:33 Assessment/Plan Assessment/Plan Acute on chronic respiratory failure - pt is back to his baseline -Monitor, oxygen COPDAE with persistent cough- -oxygen -SVNs -prednisone taper Pulmonary edema - lasix PNA with Enterobacter - cefepime switched to Cipro secondary to sensitivities -oxygen Anemia -monitor -check occult stools. Allergic rhinitis -Claritin, Singulair, and Flonase. Morbid obesity with JOSE MANUEL -Home CPAP Chronic Afib and CAD -Cardiology following CKD IDDM Cellulitis and abscess of foot PT is ok from pulmonary standpoint for discharge with cipro PO x total 7 days 232 RAIMUNDO MATTHEWS DO Nov 29, 2017 07:07
[2017-11-29] MEDS: aCETylcysteine 20% (MUCOMYST) 30ML SOLN VIAL INH SCH ×2 (07:12→22:09)
[2017-11-29] MEDS: ADVAIR HFA 115/21 MCG INHALER 8 GM IH SCH ×2 (07:13→19:02)
[2017-11-29 08:00] VITALS: BP 130/61
[2017-11-29] MEDS: meTOproloL SUCCINATE 50 MG (TOPROL XL) TAB PO SCH (08:21)
[2017-11-29] MEDS: METOLAZONE 5 MG (ZAROXOLYN) TAB PO SCH (08:21)
[2017-11-29] MEDS: LORATADINE (CLARITIN) 10 MG TAB PO SCH (08:21)
[2017-11-29] MEDS: DILTIAZEM 240 MG (CARDIZEM CD) CAP PO SCH (08:21)
[2017-11-29] MEDS: SENNA W/DOCUSATE (SENOKOT S) TABLET PO SCH ×2 (08:21→20:40)
[2017-11-29] MEDS: APIXABAN 5 MG (ELIQUIS) TABLET PO SCH ×2 (08:21→20:40)
[2017-11-29] MEDS: FUROSEMIDE 40 MG (LASIX) TAB PO SCH (08:21)
[2017-11-29] MEDS: CLOPIDOGREL 75 MG (PLAVIX) TABLET PO SCH (08:21)
[2017-11-29] MEDS: CIPROFLOXACIN 500 MG (CIPRO) TABLET PO SCH ×2 (08:21→20:40)
[2017-11-29] MEDS: inSUlin DETERMIR 1 UNIT/0.01 ML (LEVEMIR) CHARGE PER UNIT SQ SCH ×2 (08:22→20:39)
[2017-11-29] MEDS: POLYETHYLENE GLYCOL 17 GM (MIRALAX) PACK PO SCH ×2 (08:22→20:39)
[2017-11-29] MEDS: FLUTICASONE NASAL SPRAY (FLONASE) 16 GM BTL NS SCH ×2 (08:22→20:40)
[2017-11-29] MEDS ORDERED: BUMETANIDE 1 MG (BUMEX) TAB PO NR (10:00)
--- NOTE | 2017-11-29 10:06 | Progress Note-Cardiology ---
Cardiology SOAP Progress Note Subjective: Sitting up on the side of the bed. He feels his breathing is somewhat better than yesterday. No c/o CP or palpitations. Objective: I&O/Vital Signs 11/28/17 11/29/17 11/29/17 11/29/17 22:55 00:00 02:51 07:13 Temp 97.3 Pulse 78 Resp 22 B/P (MAP) 105/47 (66) Pulse Ox 96 93 96 94 O2 Delivery NIV CPAP NIV CPAP NIV CPAP Nasal Cannula O2 Flow Rate 3.00 3.00 3.00 3.00 11/29/17 11/29/17 08:00 09:00 Temp 97.9 Pulse 78 Resp 20 B/P (MAP) 130/61 (84) Pulse Ox 93 O2 Delivery Nasal Cannula Nasal Cannula O2 Flow Rate 3.00 3.00 11/29/17 00:00 Intake Total 2020 ml Output Total 3575 ml Balance -1555 ml Weight (Pounds): 405 Weight (Ounces): 8.0 Weight (Calculated Kilograms): [phone] Constitutional: AAO x 3, well-developed, well-nourished Respiratory: crackles (bi-basilar), other (prolonged expiratory phase) Cardiovascular: irregularly irregular; No JVD; S1 and S2 Gastrointestional: No tender; soft, audible bowel sounds Extremities: significant edema (bilat LE edema) Neurologic/Psychiatric: grossly intact, power is 5/5 both on sides Skin: No rash, No ulcerations Results/Procedures: Labs Laboratory Tests 11/28/17 10:52: Glucometer 205H 11/28/17 15:38: Glucometer 303H 11/28/17 20:18: Glucometer 416*H 11/28/17 21:43: Stool Occult Blood Immunoassay POSITIVEH 11/29/17 05:08: Glucometer 90 11/29/17 05:33: White Blood Count 15.3H, Red Blood Count 3.14L, Hemoglobin 8.3L, Hematocrit 27L , Mean Corpuscular Volume 85, Mean Corpuscular Hemoglobin 26, Mean Corpuscular Hemoglobin Concent 31L, Red Cell Distribution Width 15.6H, Platelet Count 352, Mean Platelet Volume 9.1, Neutrophils (%) (Auto) 66, Lymphocytes (%) (Auto) 18, Monocytes (%) (Auto) 13H, Eosinophils (%) (Auto) 2, Basophils (%) (Auto) 0, Neutrophils # (Auto) 10.1H, Lymphocytes # (Auto) 2.8, Monocytes # (Auto) 2.0H, Eosinophils # (Auto) 0.3, Basophils # (Auto) 0.1, Neutrophils % (Manual) 62, Lymphocytes % (Manual) 23, Monocytes % (Manual) 11, Eosinophils % (Manual) 2, Basophils % (Manual) 0, Band Neutrophils 2, Polychromasia SLIGHT, Hypochromasia SLIGHT, Anisocytosis SLIGHT, Target Cells SLIGHT, Stomatocytes SLIGHT, Sodium Level 138, Potassium Level 3.1L, Chloride Level 101, Carbon Dioxide Level 25, Anion Gap 12, Blood Urea Nitrogen 31H, Creatinine 1.26, Estimat Glomerular Filtration Rate 57, BUN/Creatinine Ratio 25, Glucose Level 80, Calcium Level 9.4 , Total Bilirubin 0.3, Aspartate Amino Transf (AST/SGOT) 15, Alanine Aminotransferase (ALT/SGPT) 15, Alkaline Phosphatase 74, Total Protein 7.2, Albumin 3.8 Microbiology 11/25/17 Blood Culture - Preliminary, Resulted No growth 11/26/17 Gram Stain - Final, Complete 11/26/17 Sputum Culture - Final, Complete Enterobacter aerogenes Normal swetha Laboratory Tests 11/28/17 05:09 11/29/17 05:33 A/P: Assessment: Dyspnea likely multifactorial - ac on chronic diastolic CHF, ac exacerbation of COPD, pneumonia and obesity hypoventilation syndrome Obesity (BMI approx 62) with obesity-hypoventilation Acute on chr exacerbation of COPD Pneumonia - management per medical services Ac on chronic diastolic CHF - continue diuretic regimen Persistent a-fib first diagnosed in early February 2016, rate controlled Anemia of undetermined etiology OAC with Eliquis CAD with a h/o CABG in 2006 at [facility] in [place], [place]. On cardiac cath of 11-11-15: Multivessel coronary disease including multiple more than 90% stenosis of the proximal and mid left anterior descending artery. The mid to distal left anterior descending artery is protected with a widely patent left internal mammary artery graft. The left circumflex artery had 99% ostial/ proximal stenosis to which successful stenting was carried out with Promus Premier 3.5 x 20 mm stent with a reduction of stenosis to 0% residual. The distal left circumflex and its obtuse marginal branches have diffuse moderate to moderately severe disease which were not intervened on. The right coronary artery is dominant and had 90% proximal stenosis to which successful stenting was carried out with Promus Premier 2.75 x 28 mm stent with reduction of stenosis to 0% residual. The distal right coronary artery has multiple stenoses of 50 to 60%, which were not intervened on. Cardiac cath of 11-11-15 showed well preserved global left ventricular systolic function and ejection fraction of 55 to 60%. Elevated left ventricular end- diastolic pressure which was measured at approximately 20 mmHg. No significant mitral regurgitation. ABIs on 01/13/16 at [facility], [place]: 1.1 on both sides Echocardiogram of 09/14/17 (Dr Costello): LVEF 55-65%, dilated LA, supotimal study Chronic bilat leg swelling, likely due to venous insuff, no evidence of DVT on on venous duplex of 09/13/17 Hypertension COPD Quit smoking in early DM II Chronic renal insufficiency - chronic likely due in some part to diabetic nephropathy Sleep apnea syndrome - CPAP therapy - managed by Dr. Paris Minimal carotid dz on u/s of November 2015 Electrolyte abnormalities - likely d/t diuretic tx - replace Plan: * He suffers from multiple comorbidities that are outlined above * Spoke with Dr. Santiago this morning * We will change diuretic regimen. We will stop the Lasix and change it to Bumex. * Monitor labs * Dr. Bishop discussed his CV issues with him and answered questions * Anemia of undetermined etiology - management per medical services - H/H gradually improving * Occult stool (+) * Replace electrolytes Physician Assessment Physician Assessment Shortness of breath better, but not resolved Leg swelling as before No cp or palp or syncope Lungs: fair entry, diminished at the bases Cor: irreg Ext: 2-3+ pitting and nonpitting edema A&R * As documented in our note above that I updated (italics) and as noted below * Has multiple comorbidities that make management complex * Does not seem to be in significant clinical heart failure at this time * Reasonable to switch furosemide to bumetanide for leg swelling control * Replenish K * Monitor labs * W/u and treatment of anemia is recommended BENJAMIN ARROYO CYLINDER GRINDER Nov 29, 2017 10:06 CATY BISHOP MD [facility] Nov 29, 2017 10:55
[2017-11-29] MEDS ORDERED: KCL 20 MEQ TAB (K-DUR) PO NR ×2 (10:15→13:00)
--- NOTE | 2017-11-29 11:12 | Progress Note-Hospitalist ---
Subjective HPI/CC On Admission Date Seen by Provider: Nov 29, 2017 Time Seen by Provider: 10:45 Pt is a 66yoCM with a PMH of COPD, CAD, CHF who presented to the ER for increased SOB. He states over the past month he has had increased SOB but over the past few days he had been needing his inhalers every 2-3 hours. Despite this he has had cough and orthopnea. He also has heart failure for which he takes lasix, bumetanide, and spirolactone but this as not helped. He also thought he right leg was more red than normal and was concerned that his cellulitis was getting worse. Subjective/Events-last exam Patient feels less congested since he coughed last night and is productive of sputum now Bumex will replace Lasix to obtain more diuretic power to stop readmissions for COPD exacerbations and heart failure volume overload issues Bowels are moving a little bit after MiraLAX and Dulcolax Denies any pain Cipro will be continued for 7 days Will plan for discharge tomorrow Review of Systems Pulmonary: Dyspnea, Cough Gastrointestinal: Constipation Objective Exam Vital Signs Vital Signs Date Time Temp Pulse Resp B/P (MAP) Pulse Ox O2 Delivery O2 Flow Rate FiO2 11/29/17 10:54 96 Nasal Cannula 3.00 11/29/17 08:00 97.9 78 20 130/61 (84) Capillary Refill : Less Than 3 Seconds General Appearance: No Apparent Distress, WD/WN, Chronically ill, Obese Neck: Full Range of Motion, Normal Inspection Respiratory: Lungs Clear, Normal Breath Sounds, Decreased Breath Sounds Extremity: Pedal Edema Neurologic/Psychiatric: Alert, Oriented x3, No Motor/Sensory Deficits, Normal Mood/Affect, dealership 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 Imaging: Reviewed Imaging Report Assessment/Plan Assessment and Plan Assess & Plan/Chief Complaint Pneumonia with Enterobacter ESBL on Cipro Volume overload AECOPD AF CHF DM CRI JOSE MANUEL Constipation Hypokalemia Anemia with hemoccult + stools Plan: Cipro Nebs O2 Constipation treatment Home meds Insulin Change Lasix to Bumex DC tomorrow Replace potassium Diagnosis/Problems Diagnosis/Problems (1) Pneumonia Status: Acute Qualifiers: Pneumonia type: due to unspecified organism Laterality: unspecified laterality Lung location: unspecified part of lung Qualified Codes: J18.9 - Pneumonia, unspecified organism (2) COPD (chronic obstructive pulmonary disease) with acute bronchitis Status: Acute (3) Chronic atrial fibrillation Status: Chronic (4) Chronic kidney disease Status: Chronic Qualifiers: Chronic kidney disease stage: stage 3 (moderate) Qualified Codes: N18.3 - Chronic kidney disease, stage 3 (moderate) (5) CAD (coronary artery disease) Status: Chronic Qualifiers: Coronary Disease-Associated Artery/Lesion type: [place] artery [place] vs. transplanted heart: [place] heart Associated angina: without angina Qualified Codes: I25.10 - Atherosclerotic heart disease of [place] coronary artery without angina pectoris (6) IDDM (insulin dependent diabetes mellitus) Status: Chronic Clinical Quality Measures DVT/VTE Risk/Contraindication: Risk Factor Score Per Nursin RFS Level Per Nursing on Admit: 4+=Very High CHAO PAT DO Nov 29, 2017 11:12
[2017-11-29 15:28] VITALS: BP 158/81
[2017-11-29] MEDS: FINASTERIDE (PROSCAR) 5 MG TAB PO SCH (20:40)
[2017-11-29] MEDS: MONTELUKAST 10 MG (SINGULAIR) TAB PO SCH (20:40)
[2017-11-30] VITALS: BP 132/74
[2017-11-30] MEDS: RT-ALBUTEROL/IPRATROPIUM 3 ML (DUONEB) VIAL INH SCH ×3 (02:11→10:36)
[2017-11-30 05:36] LABS: BASOPHILS # (AUTO) 0.1 10^3/uL (0.0-0.1); BASOPHILS % (AUTO) 0 % (0-10); EOSINOPHILS # (AUTO) 0.3 10^3/uL (0.0-0.3); EOSINOPHILS % (AUTO) 2 % (0-10); HEMATOCRIT 27 % (40-54); HEMOGLOBIN 8.3 G/DL (13.3-17.7); LYMPHOCYTES # (AUTO) 3.3 X 10^3 (1.0-4.0); LYMPHOCYTES % (AUTO) 21 % (12-44); MEAN CORPUSCULAR HEMOGLOBIN 26 PG (25-34); MEAN CORPUSCULAR HGB CONC 31 G/DL (32-36); MEAN CORPUSCULAR VOLUME 85 FL (80-99); MONOCYTES # (AUTO) 2.2 X 10^3 (0.0-1.0); MONOCYTES % (AUTO) 14 % (0-12); NEUTROPHILS # (AUTO) 9.7 X 10^3 (1.8-7.8); NEUTROPHILS % (AUTO) 62 % (42-75); PLATELET COUNT 389 10^3/uL (130-400); RED BLOOD COUNT 3.17 10^6/uL (4.35-5.85); RED CELL DISTRIBUTION WIDTH 15.7 % (10.0-14.5); WHITE BLOOD COUNT 15.6 10^3/uL (4.3-11.0)
[2017-11-30 05:57] LABS: ALBUMIN 4.1 GM/DL (3.2-4.5); BILIRUBIN,TOTAL 0.4 MG/DL (0.1-1.0); CALCIUM 9.6 MG/DL (8.5-10.1); CREATININE SERUM 1.39 MG/DL (0.60-1.30); MAGNESIUM 1.8 MG/DL (1.8-2.4); POTASSIUM 3.1 MMOL/L (3.6-5.0); TOTAL PROTEIN 7.4 GM/DL (6.4-8.2)
[2017-11-30] MEDS: predniSONE 20 MG TAB PO SCH (06:07)
[2017-11-30] MEDS: LEVOTHYROXINE 25 MCG (LEVOTHROID) TAB PO SCH (06:07)
[2017-11-30] MEDS: inSUlin ASPART (NovoLOG) 1 UNIT/0.01 ML (CHARGE PER UNIT) SC SCH ×4 (06:07→11:50)
--- NOTE | 2017-11-30 06:45 | Pulmonary Progress Note ---
Exam Exam Vital Signs Date Time Temp Pulse Resp B/P (MAP) Pulse Ox O2 Delivery O2 Flow Rate FiO2 11/30/17 02:11 97 NIV CPAP 3.00 11/30/17 00:00 96.3 87 19 132/74 (93) 96 Nasal Cannula 3.00 11/29/17 22:09 97 Nasal Cannula 3.00 11/29/17 21:00 Nasal Cannula 3.00 11/29/17 19:01 95 Nasal Cannula 3.00 11/29/17 15:28 97.4 82 20 158/81 (106) 96 Nasal Cannula 3.00 11/29/17 13:43 95 Nasal Cannula 3.00 11/29/17 10:54 96 Nasal Cannula 3.00 11/29/17 09:00 Nasal Cannula 3.00 11/29/17 08:00 97.9 78 20 130/61 (84) 93 Nasal Cannula 3.00 11/29/17 07:13 94 Nasal Cannula 3.00 I & O 11/30/17 07:00 Intake Total 3200 ml Output Total 6900 ml Balance -3700 ml General Appearance: No Apparent Distress, WD/WN, Chronically ill, Obese HEENT: PERRL/EOMI, Moist Mucous Membranes Neck: Full Range of Motion, Normal Inspection Respiratory: Lungs Clear, Normal Breath Sounds, Decreased Breath Sounds Cardiovascular: Irregularly Irregular Capillary Refill: Less Than 3 Seconds Gastrointestinal: normal bowel sounds, non tender, soft Extremity: Pedal Edema Neurologic/Psychiatric: Alert, Oriented x3, No Motor/Sensory Deficits, Normal Mood/Affect, creative 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 Allergic rhinitis -Claritin, Singulair, and Flonase. Morbid obesity with JOSE MANUEL -Home CPAP Chronic Afib and CAD -Cardiology following CKD IDDM Cellulitis and abscess of foot possible discharge today with cipro PO x total 7 days 232 RAIMUNDO MATTHEWS DO Nov 30, 2017 06:45
[2017-11-30] MEDS: ADVAIR HFA 115/21 MCG INHALER 8 GM IH SCH (06:53)
[2017-11-30] MEDS: aCETylcysteine 20% (MUCOMYST) 30ML SOLN VIAL INH SCH (06:53)
[2017-11-30] MEDS ORDERED: KCL 20 MEQ TAB (K-DUR) PO SCH (07:00)
[2017-11-30] MEDS ORDERED: BUMETANIDE 1 MG (BUMEX) TAB PO SCH (07:00)
[2017-11-30 08:00] VITALS: BP 142/81
[2017-11-30] MEDS: DILTIAZEM 240 MG (CARDIZEM CD) CAP PO SCH (08:24)
[2017-11-30] MEDS: LORATADINE (CLARITIN) 10 MG TAB PO SCH (08:24)
[2017-11-30] MEDS: APIXABAN 5 MG (ELIQUIS) TABLET PO SCH (08:24)
[2017-11-30] MEDS: CLOPIDOGREL 75 MG (PLAVIX) TABLET PO SCH (08:24)
[2017-11-30] MEDS: POLYETHYLENE GLYCOL 17 GM (MIRALAX) PACK PO SCH (08:24)
[2017-11-30] MEDS: CIPROFLOXACIN 500 MG (CIPRO) TABLET PO SCH (08:24)
[2017-11-30] MEDS: SENNA W/DOCUSATE (SENOKOT S) TABLET PO SCH (08:25)
[2017-11-30] MEDS: FLUTICASONE NASAL SPRAY (FLONASE) 16 GM BTL NS SCH (08:25)
[2017-11-30] MEDS: METOLAZONE 5 MG (ZAROXOLYN) TAB PO SCH (08:25)
[2017-11-30] MEDS: inSUlin DETERMIR 1 UNIT/0.01 ML (LEVEMIR) CHARGE PER UNIT SQ SCH (08:25)
[2017-11-30] MEDS: meTOproloL SUCCINATE 50 MG (TOPROL XL) TAB PO SCH (08:25)
[2017-11-30] MEDS ORDERED: BUME1TAB4 PO (11:35)
[2017-11-30] MEDS ORDERED: PRD10T PO (11:35)
[2017-11-30] MEDS ORDERED: CIPR500T4 PO (11:35)
[2017-11-30] MEDS ORDERED: FLUT16SP22 NS (11:35)
--- NOTE | 2017-11-30 12:31 | Discharge Summary-Hospitalist ---
Diagnosis/Chief Complaint Date of Admission Nov 25, 2017 at 23:10 Date of Discharge Discharge Date: Nov 30, 2017 Admission Diagnosis Dyspnea Discharge Diagnosis Pneumonia with Enterobacter ESBL on Cipro Volume overload AECOPD AF CHF DM CRI JOSE MANUEL Constipation Hypokalemia Anemia with hemoccult + stools Plan: Cipro Nebs O2 Constipation treatment Home meds Insulin Change Lasix to Bumex DC tomorrow Replace potassium (1) Pneumonia Status: Acute (2) COPD (chronic obstructive pulmonary disease) with acute bronchitis Status: Acute (3) Chronic atrial fibrillation Status: Chronic (4) Chronic kidney disease Status: Chronic (5) CAD (coronary artery disease) Status: Chronic (6) IDDM (insulin dependent diabetes mellitus) Status: Chronic Discharge Summary Discharge Physical Exam Allergies: Coded Allergies: Osgxdof-Swh-Kds Reductase Inhibitor (Verified Allergy, Unknown, 10/15/17) codeine (Verified Allergy, Unknown, 10/15/17) fish oil (Verified Allergy, Unknown, 10/15/17) Vitals & I&Os Vital Signs Date Time Temp Pulse Resp B/P (MAP) Pulse Ox O2 Delivery O2 Flow Rate FiO2 11/30/17 09:00 Nasal Cannula 3.00 11/30/17 08:00 98.0 77 20 142/81 (101) 99 General Appearance: Alert, Oriented X3, Cooperative Respiratory: Clear to Auscultation, Normal Air Movement Cardiovascular: Other (Irr Irr) Extremities: Other (edema lower legs) Neuro: Normal Gait, Normal Speech, Strength at 5/5 X4 Ext Hospital Course Hospital course: Patient had an uneventful hospital course although it was lengthy period due to severe comorbidities of end-stage COPD with 24/7 oxygen dependency along with diabetes mellitus [id number] chronic active fibrillation and propensity for volume overload due to diastolic dysfunction and CAD previous stent placed with bypass surgery in the past who presented to the ER with shortness of breath was found to have infiltrate on chest x-ray that sputum revealed ESBL so patient was placed on empiric antibiotics with steroids and insulin regimen along with diuresis by cardiology and improved quickly. Due to the significant obesity with JOSE MANUEL maintained on sleep apnea treatment and other comorbidities he is high risk for readmissions so pulmonary [facility] was [facility] with [facility] and that was arranged with social media sr strategy manager and I will see the patient on Sunday with close follow-up evaluate the change of the Bumex and discontinuation of the Lasix in addition to completing Cipro 750 MG twice daily for 7 days and we'll might monitor closely by cardiology also from Dr. Bishop in 2 weeks. Labs (last 24 hrs) Laboratory Tests 11/29/17 15:30: Glucometer 427*H 11/29/17 20:23: Glucometer 330H 11/30/17 05:21: Glucometer 179H 11/30/17 05:25: White Blood Count 15.6H, Red Blood Count 3.17L, Hemoglobin 8.3L, Hematocrit 27L , Mean Corpuscular Volume 85, Mean Corpuscular Hemoglobin 26, Mean Corpuscular Hemoglobin Concent 31L, Red Cell Distribution Width 15.7H, Platelet Count 389, Mean Platelet Volume 9.0, Neutrophils (%) (Auto) 62, Lymphocytes (%) (Auto) 21, Monocytes (%) (Auto) 14H, Eosinophils (%) (Auto) 2, Basophils (%) (Auto) 0, Neutrophils # (Auto) 9.7H, Lymphocytes # (Auto) 3.3, Monocytes # (Auto) 2.2H, Eosinophils # (Auto) 0.3, Basophils # (Auto) 0.1, Sodium Level 137, Potassium Level 3.1L, Chloride Level 99, Carbon Dioxide Level 26, Anion Gap 12, Blood Urea Nitrogen 36H, Creatinine 1.39H, Estimat Glomerular Filtration Rate 51, BUN/ Creatinine Ratio 26, Glucose Level 84, Calcium Level 9.6, Magnesium Level 1.8, Total Bilirubin 0.4, Aspartate Amino Transf (AST/SGOT) 17, Alanine Aminotransferase (ALT/SGPT) 17, Alkaline Phosphatase 83, Total Protein 7.4, Albumin 4.1 11/30/17 11:34: Glucometer 236H Microbiology 11/25/17 Blood Culture - Preliminary, Resulted No growth 11/26/17 Gram Stain - Final, Complete 11/26/17 Sputum Culture - Final, Complete Enterobacter aerogenes Normal swetha Patient resulted labs reviewed. Pending Labs Laboratory Tests 11/30/17 05:21: Glucometer 179 11/30/17 05:25: White Blood Count 15.6, Red Blood Count 3.17, Hemoglobin 8.3, Hematocrit 27, Mean Corpuscular Volume 85, Mean Corpuscular Hemoglobin 26, Mean Corpuscular Hemoglobin Concent 31, Red Cell Distribution Width 15.7, Platelet Count 389, Mean Platelet Volume 9.0, Neutrophils (%) (Auto) 62, Lymphocytes (%) (Auto) 21, Monocytes (%) (Auto) 14, Eosinophils (%) (Auto) 2, Basophils (%) (Auto) 0, Neutrophils # (Auto) 9.7, Lymphocytes # (Auto) 3.3, Monocytes # (Auto) 2.2, Eosinophils # (Auto) 0.3, Basophils # (Auto) 0.1, Sodium Level 137, Potassium Level 3.1, Chloride Level 99, Carbon Dioxide Level 26, Anion Gap 12, Blood Urea Nitrogen 36, Creatinine 1.39, Estimat Glomerular Filtration Rate 51, BUN/ Creatinine Ratio 26, Glucose Level 84, Calcium Level 9.6, Magnesium Level 1.8, Total Bilirubin 0.4, Aspartate Amino Transf (AST/SGOT) 17, Alanine Aminotransferase (ALT/SGPT) 17, Alkaline Phosphatase 83, Total Protein 7.4, Albumin 4.1 11/30/17 11:34: Glucometer 236 Imaging: Reviewed Imaging Report Discussion & Recommendations Discharge Planning: <30 minutes discharge planning Discharge Home Medications: Active Scripts Active Prednisone 10 Mg Tab 20 Mg PO DAILY 2 pills once daily for 3 days then 1 pill norma for 4 days Fluticasone Propionate 16 Gm [place].susp 2 [place] NS BID Bumetanide 1 Mg Tablet 2 Mg PO DAILY@0700 Ciprofloxacin HCl 500 Mg Tablet 750 Mg PO BID Reported Nexium 24Hr (Esomeprazole Magnesium) 20 Mg Capsule.dr 20 Mg PO HS Proair Hfa (Albuterol Sulfate) 1 Puff Puff 2 Puff INH Q4H PRN Sulfamethoxazole-Tmp Ds Tablet (Sulfamethoxazole/Trimethoprim) 1 Each Tablet 1 Tab PO DAILY Ex-Lax (Sennosides) 15 Mg Tablet 1 Tab PO DAILY PRN Colace (Docusate Sodium) 100 Mg Capsule 500 Mg PO DAILY PRN Lactulose 10 Gm/15 Ml Solution 2 Tbs PO Q4H PRN Lidocaine 1 Each Adh..patch 1 Patch TP DAILY PRN 5% Finasteride 5 Mg Tablet 2.5 Mg PO HS TAKES 1/2 (5MG) TABLET Levemir Flextouch (Insulin Detemir) 100 Unit/1 Ml Insuln.pen 20 Units SC BID Metolazone 5 Mg Tablet 5 Mg PO DAILY Furosemide 40 Mg Tablet 80 Mg PO DAILY TAKES 2 (40MG) TABLETS Spironolactone 25 Mg Tablet 50 Mg PO DAILY TAKES 2 (25MG) TABLETS Meloxicam 15 Mg Tablet 15 Mg PO DAILY Humalog Kwikpen (Insulin Lispro) 100 Unit/1 Ml Insuln.pen 50 Units SQ ACHS Potassium Chloride 10 Meq Tablet.er 20 Meq PO BID TAKES 2 (10MEQ) TABLETS Tamsulosin HCl 0.4 Mg Cap.er.24h 0.4 Mg PO DAILY Montelukast Sodium 10 Mg Tablet 10 Mg PO HS Eliquis (Apixaban) 5 Mg Tablet 5 Mg PO BID Rosuvastatin Calcium 5 Mg Tablet 5 Mg PO DAILY Dilt-Xr (Diltiazem HCl) 240 Mg Cap.er.deg 240 Mg PO DAILY Advair 500-50 Diskus (Fluticasone/Salmeterol) 1 Each Blst.w.dev 1 Puff IH BID Clopidogrel (Clopidogrel Bisulfate) 75 Mg Tablet 75 Mg PO DAILY Metoprolol Succinate 50 Mg Tab.er.24h 50 Mg PO DAILY Lortab 7.5 Mg Tablet (Acetaminophen/Hydrocodone Bitart) 1 Each Tablet 1 Tab PO Q6H PRN Albuterol Sulfate 2.5 Mg/3 Ml Vial.neb 2.5 Mg NEB Q4H PRN Levothyroxine Sodium 25 Mcg Tablet 25 Mcg PO DAILY Zyrtec-D Tablet (Cetirizine HCl/Pseudoephedrine) 1 Each Tab.er.12h 1 Tab PO DAILY Instructions to patient/family Please see electronic discharge instructions given to patient. Clinical Quality Measures DVT/VTE Risk/Contraindication: Risk Factor Score Per Nursin RFS Level Per Nursing on Admit: 4+=Very High Problem Qualifiers (1) Pneumonia: Pneumonia type: due to unspecified organism Laterality: unspecified laterality Lung location: unspecified part of lung Qualified Codes: J18.9 - Pneumonia, unspecified organism (2) Chronic kidney disease: Chronic kidney disease stage: stage 3 (moderate) Qualified Codes: N18.3 - Chronic kidney disease, stage 3 (moderate) (3) CAD (coronary artery disease): Coronary Disease-Associated Artery/Lesion type: [place] artery [place] vs. transplanted heart: [place] heart Associated angina: without angina Qualified Codes: I25.10 - Atherosclerotic heart disease of [place] coronary artery without angina pectoris CHAO PAT DO Nov 30, 2017 12:30
--- NOTE | 2017-11-30 15:04 | Progress Note-Cardiology ---
Cardiology SOAP Progress Note Subjective: Feels well today No cp Shortness of breath and leg swelling at their usual baseline now Objective: I&O/Vital Signs 11/30/17 11/30/17 11/30/17 11/30/17 06:54 08:00 09:00 13:25 Temp 98.0 Pulse 77 Resp 20 B/P (MAP) 142/81 (101) Pulse Ox 94 99 O2 Delivery Nasal Cannula Nasal Cannula Nasal Cannula O2 Flow Rate 3.00 3.00 3.00 11/30/17 00:00 Intake Total 2200 ml Output Total 6000 ml Balance -3800 ml Weight (Pounds): 406 Weight (Ounces): 8.0 Weight (Calculated Kilograms): [phone] Constitutional: AAO x 3, well-developed, well-nourished Respiratory: crackles (bi-basilar), other (prolonged expiratory phase) Cardiovascular: irregularly irregular; No JVD; S1 and S2 Gastrointestional: No tender; soft, audible bowel sounds Extremities: significant edema (bilat LE edema) Neurologic/Psychiatric: grossly intact, power is 5/5 both on sides Skin: No rash, No ulcerations Results/Procedures: Labs Laboratory Tests 11/29/17 15:30: Glucometer 427*H 11/29/17 20:23: Glucometer 330H 11/30/17 05:21: Glucometer 179H 11/30/17 05:25: White Blood Count 15.6H, Red Blood Count 3.17L, Hemoglobin 8.3L, Hematocrit 27L , Mean Corpuscular Volume 85, Mean Corpuscular Hemoglobin 26, Mean Corpuscular Hemoglobin Concent 31L, Red Cell Distribution Width 15.7H, Platelet Count 389, Mean Platelet Volume 9.0, Neutrophils (%) (Auto) 62, Lymphocytes (%) (Auto) 21, Monocytes (%) (Auto) 14H, Eosinophils (%) (Auto) 2, Basophils (%) (Auto) 0, Neutrophils # (Auto) 9.7H, Lymphocytes # (Auto) 3.3, Monocytes # (Auto) 2.2H, Eosinophils # (Auto) 0.3, Basophils # (Auto) 0.1, Sodium Level 137, Potassium Level 3.1L, Chloride Level 99, Carbon Dioxide Level 26, Anion Gap 12, Blood Urea Nitrogen 36H, Creatinine 1.39H, Estimat Glomerular Filtration Rate 51, BUN/ Creatinine Ratio 26, Glucose Level 84, Calcium Level 9.6, Magnesium Level 1.8, Total Bilirubin 0.4, Aspartate Amino Transf (AST/SGOT) 17, Alanine Aminotransferase (ALT/SGPT) 17, Alkaline Phosphatase 83, Total Protein 7.4, Albumin 4.1 11/30/17 11:34: Glucometer 236H Microbiology 11/25/17 Blood Culture - Preliminary, Resulted No growth 11/26/17 Gram Stain - Final, Complete 11/26/17 Sputum Culture - Final, Complete Enterobacter aerogenes Normal swetha A/P: Assessment: Dyspnea likely multifactorial - ac on chronic diastolic CHF, ac exacerbation of COPD, pneumonia and obesity hypoventilation syndrome Obesity (BMI approx 62) with obesity-hypoventilation Acute on chr exacerbation of COPD Pneumonia - management per medical services Ac on chronic diastolic CHF - continue diuretic regimen Persistent a-fib first diagnosed in early February 2016, rate controlled Anemia of undetermined etiology OAC with Eliquis CAD with a h/o CABG in 2006 at [facility] in [place], [place]. On cardiac cath of 11-11-15: Multivessel coronary disease including multiple more than 90% stenosis of the proximal and mid left anterior descending artery. The mid to distal left anterior descending artery is protected with a widely patent left internal mammary artery graft. The left circumflex artery had 99% ostial/ proximal stenosis to which successful stenting was carried out with Promus Premier 3.5 x 20 mm stent with a reduction of stenosis to 0% residual. The distal left circumflex and its obtuse marginal branches have diffuse moderate to moderately severe disease which were not intervened on. The right coronary artery is dominant and had 90% proximal stenosis to which successful stenting was carried out with Promus Premier 2.75 x 28 mm stent with reduction of stenosis to 0% residual. The distal right coronary artery has multiple stenoses of 50 to 60%, which were not intervened on. Cardiac cath of 11-11-15 showed well preserved global left ventricular systolic function and ejection fraction of 55 to 60%. Elevated left ventricular end- diastolic pressure which was measured at approximately 20 mmHg. No significant mitral regurgitation. ABIs on 01/13/16 at [place], [place]: 1.1 on both sides Echocardiogram of 09/14/17 (Dr Costello): LVEF 55-65%, dilated LA, supotimal study Chronic bilat leg swelling, likely due to venous insuff, no evidence of DVT on on venous duplex of 09/13/17 Hypertension COPD Quit smoking in early DM II Chronic renal insufficiency - chronic likely due in some part to diabetic nephropathy Sleep apnea syndrome - CPAP therapy - managed by Dr. Paris Minimal carotid dz on u/s of November 2015 Electrolyte abnormalities - likely d/t diuretic tx - replace Plan: * He suffers from multiple comorbidities that are outlined above * Continue current card regimen * Outpt f/u advised * I discussed his case with Dr Santiago this am CATY PENALOZA MD FACP FACC CCDS Nov 30, 2017 15:04
== END 2017-11-30 13:30 | disposition home or self-care (01) | DRG 189 ==
LOC: EDUNIT# 21:17 → ER 21:18 → 4TH 23:10
PROVIDERS: ADMIT Internal Medicine; ATTEND Internal Medicine
DX: J96.20 Acute and chronic respiratory failure, unspecified whether with hypoxia or hypercapnia (principal); J44.1 Chronic obstructive pulmonary disease with (acute) exacerbation; J15.6 Pneumonia due to other Gram-negative bacteria; J44.0 Chronic obstructive pulmonary disease with (acute) lower respiratory infection; L03.115 Cellulitis of right lower limb; L03.116 Cellulitis of left lower limb; I13.0 Hypertensive heart and chronic kidney disease with heart failure and stage 1 through stage 4 chronic kidney disease, or unspecified chronic kidney disease; I50.33 Acute on chronic diastolic (congestive) heart failure; N18.3 Chronic kidney disease, stage 3 (moderate); E11.21 Type 2 diabetes mellitus with diabetic nephropathy; E11.65 Type 2 diabetes mellitus with hyperglycemia; E66.2 Morbid (severe) obesity with alveolar hypoventilation; Z68.44 Body mass index [BMI] 60.0-69.9, adult; R60.0 Localized edema; D64.9 Anemia, unspecified; R19.5 Other fecal abnormalities; E87.6 Hypokalemia; I48.2 Chronic atrial fibrillation; I25.10 Atherosclerotic heart disease of native coronary artery without angina pectoris; J45.909 Unspecified asthma, uncomplicated; E78.00 Pure hypercholesterolemia, unspecified; K59.09 Other constipation; E03.9 Hypothyroidism, unspecified; I25.2 Old myocardial infarction; Z79.4 Long term (current) use of insulin; Z95.0 Presence of cardiac pacemaker; Z95.5 Presence of coronary angioplasty implant and graft; Z87.891 Personal history of nicotine dependence
CPT/HCPCS: 36415; 36600; 71045; 71046; 80048; 80053; 81000; 82274; 82805; 82962; 83605; 83735; 83880; 84484; 85007; 85025; 85027; 86141; 87040; 87070; 87077; 87186; 87205; 94640; 94664; 94760; 96365; 96375

== ENCOUNTER 2017-12-06 22:29 | Emergency (ER) | payer OTHER, MEDICARE ==
[~2017-12-06] VITALS: Ht 172.7 cm; Wt 172.4 kg
[~2017-12-06 22:29] MED LIST changes: +BUME1TAB4 PO; +ESOM20CA58 PO; +FLUT16SP22 NS; +RT-ALBUINH INH; +SULF-222 PO
[2017-12-06] MEDS ORDERED: LIDOCAINE/EPI 2% 1:100,00 (XYLOCAINE) 20 ML VIAL ONE (23:12)
--- NOTE | 2017-12-06 23:26 | ED Lower Extremity ---
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 PT REPORTS HE HAS DIABETIC NEUROPATHY ET DENIES KNOWLEDGE OF INJURY. STATES "I LOOKED DOWN AND WAS BLEEDING". NO OTHER C/O VOICED Nursing Sepsis Screen: No Definite Risk Source: patient Exam Limitations: no limitations History of Present Illness Date Seen by Provider: Dec 06, 2017 Time Seen by Provider: 22:45 Initial Comments Here with complaint of laceration to the bottom of the left foot. He is not sure what he cut it on. He was in the bathroom and then noted some burning of his foot and then noticed the blood. He is on 2 blood thinners. Does have history of diabetes and neuropathy of both feet. Previously recently hospitalized for pneumonia and was discharged discharge to few days ago. Does note some bilateral lower extremity edema. Tetanus is up-to-date within the last 3 years. Onset: just prior to arrival Severity: moderate Pain/Injury Location: left foot Method of Injury: unknown Modifying Factors: Improves With Immobilization Allergies and Home Medications Allergies Coded Allergies: Yfxcrra-Eai-Fsw Reductase Inhibitor (Verified Allergy, Unknown, 10/15/17) codeine (Verified Allergy, Unknown, 10/15/17) fish oil (Verified Allergy, Unknown, 10/15/17) Home Medications Albuterol Sulfate 2.5 Mg/3 Ml Vial.neb, 2.5 MG NEB Q4H PRN for SHORTNESS OF BREATH, (Reported) Albuterol Sulfate 1 Puff Puff, 2 PUFF INH Q4H PRN for SHORTNESS OF BREATH, ( Reported) Apixaban 5 Mg Tablet, 5 MG PO BID, (Reported) Bumetanide 1 Mg Tablet, 2 MG PO DAILY@0700 Prescribed by: CHAO PAT on 11/30/17 1135 Cetirizine HCl/Pseudoephedrine 1 Each Tab.er.12h, 1 TAB PO DAILY, (Reported) Ciprofloxacin HCl 500 Mg Tablet, 750 MG PO BID Prescribed by: CHAO PAT on 11/30/17 1135 Clopidogrel Bisulfate 75 Mg Tablet, 75 MG PO DAILY, (Reported) Diltiazem HCl 240 Mg Cap.er.deg, 240 MG PO DAILY, (Reported) Docusate Sodium 100 Mg Capsule, 500 MG PO DAILY PRN for CONSTIPATION-1ST LINE, ( Reported) Esomeprazole Magnesium 20 Mg Capsule.dr, 20 MG PO HS, (Reported) Finasteride 5 Mg Tablet, 2.5 MG PO HS, (Reported) TAKES 1/2 (5MG) TABLET Fluticasone Propionate 16 Gm [place].susp, 2 SPRAY NS BID Prescribed by: CHAO PAT on 11/30/17 1135 Fluticasone/Salmeterol 1 Each Blst.w.dev, 1 PUFF IH BID, (Reported) Hydrocodone Bit/Acetaminophen 1 Each Tablet, 1 TAB PO Q6H PRN for PAIN-MODERATE, (Reported) Insulin Detemir 100 Unit/1 Ml Insuln.pen, 20 UNITS SC BID, (Reported) Insulin Lispro 100 Unit/1 Ml Insuln.pen, 50 UNITS SQ ACHS, (Reported) Lactulose 10 Gm/15 Ml Solution, 2 TBS PO Q4H PRN for CONSTIPATION-3RD LINE, ( Reported) Levothyroxine Sodium 25 Mcg Tablet, 25 MCG PO DAILY, (Reported) Lidocaine 1 Each Adh..patch, 1 PATCH TP DAILY PRN for KNEE/BACK PAIN, (Reported) 5% Meloxicam 15 Mg Tablet, 15 MG PO DAILY, (Reported) Metolazone 5 Mg Tablet, 5 MG PO DAILY, (Reported) Metoprolol Succinate 50 Mg Tab.er.24h, 50 MG PO DAILY, (Reported) Montelukast Sodium 10 Mg Tablet, 10 MG PO HS, (Reported) Potassium Chloride 10 Meq Tablet.er, 20 MEQ PO BID, (Reported) TAKES 2 (10MEQ) TABLETS Prednisone 10 Mg Tab, 20 MG PO DAILY 2 pills once daily for 3 days then 1 pill norma for 4 days Prescribed by: CHAO PAT on 11/30/171134 Rosuvastatin Calcium 5 Mg Tablet, 5 MG PO DAILY, (Reported) Sennosides 15 Mg Tablet, 1 TAB PO DAILY PRN for CONSTIPATION-5TH LINE, (Reported ) Spironolactone 25 Mg Tablet, 50 MG PO DAILY, (Reported) TAKES 2 (25MG) TABLETS Sulfamethoxazole/Trimethoprim 1 Each Tablet, 1 TAB PO DAILY, (Reported) Tamsulosin HCl 0.4 Mg Cap.er.24h, 0.4 MG PO DAILY, (Reported) Patient Home Medication List Home Medication List Reviewed: Yes Constitutional: no symptoms reported Respiratory: No cough, No short of breath Cardiovascular: No chest pain; edema Musculoskeletal: no symptoms reported; No muscle pain, No muscle weakness Skin: see HPI; No change in color; lesions Psychiatric/Neurological: See HPI, Paresthesia; Denies Weakness Past Mfvfgvx-Rijjrh-Qsecne Hx Past Med/Social Hx: Reviewed Nursing Past Med/Soc Hx Patient Social History Alcohol Use: Occasionally Uses Number of Drinks Today: GG Alcohol Beverage of Choice: Whiskey Recreational Drug Use: No Smoking Status: Former Smoker Type Used: Cigarettes Former Smoker, Quit: Aug 13, 1996 Recent Foreign Travel: No Contact w/Someone Who Travel: No Recent Infectious Disease Expo: No Recent Hopitalizations: Yes Physical Abuse: No Sexual Abuse: No Mistreated: No Fear: No Immunizations Up To Date Tetanus Booster (TDap): Less than 5yrs PED Vaccines UTD: No Date of Pneumonia Vaccine: May 13, 2017 Date of Influenza Vaccine: May 13, 2017 Seasonal Allergies Seasonal Allergies: Yes Past Medical History Surgeries: Yes Adenoidectomy, Cardiac, CABG, Coronary Stent, Gallbladder, Tonsillectomy, Transurethral Resection, Vasectomy Respiratory: Yes Asthma, Pneumonia, COPD Currently Using CPAP: Yes Currently Using BIPAP: No Cardiac: Yes Atrial Fibrillation, Chronic Edema/Swelling, Coronary Artery Disease, Heart Attack, High Cholesterol, Hypertension Neurological: Yes Neuropathy Reproductive Disorders: No Genitourinary: Yes Prostate Problems, Bladder Infection, UTI-Chronic Gastrointestinal: Yes Chronic Constipation Musculoskeletal: Yes Arthritis, Chronic Back Pain Endocrine: Yes Diabetes, Insulin dep, Hypothyroidsim HEENT: Yes Cataract Loss of Vision: Denies Hearing Impairment: Denies Cancer: No Psychosocial: Yes Anxiety Nursing Suicide Risk Score: 0 Integumentary: Yes Pruritis Blood Disorders: No Adverse Reaction/Blood Tranf: No Family Medical History Reviewed Nursing Family Hx Cancer 03 FATHER Congestive heart failure 03 MOTHER Family history: Arthritis 03 MOTHER Family history: Asthma 03 MOTHER Family history: Cardiovascular disease 03 MOTHER Family history: Diabetes mellitus 09 BROTHER Family history: Gastrointestinal disease 03 FATHER History of drug abuse 09 BROTHER Asthma, Heart Disease, Hypertension Physical Exam Vital Signs Vital Signs - First Documented 12/06/17 22:31 Temp 98.1 Pulse 86 Resp 24 B/P (MAP) 130/87 (101) Pulse Ox 96 O2 Delivery Nasal Cannula O2 Flow Rate 2.00 Capillary Refill : Less Than 3 Seconds General Appearance: WD/WN, no apparent distress Cardiovascular: regular rate, rhythm, no murmur Respiratory: lungs clear, normal breath sounds Feet: bilateral foot swelling; left foot other (approximately 6 cm laceration to the bottom of the left foot with persistent bleeding despite pressure dressing and ice pack.) Neurologic/Psychiatric: alert, oriented x 3 Skin: warm/dry, other (laceration as noted above.) Procedures/Interventions Wound Location: Lower Extremities Other Wound Location Left foot on the sole Wound Length (cm): 8 Wound's Depth, Shape: linear Wound Explored: contaminated Irrigated w/ Saline (ccs): 250 Betadine Prep?: Yes Anesthesia: Lidocaine w/ Epi Volume Anesthetic (ccs): 6 Suture: Prolene Suture Size: 4-0 Number of Sutures: 9 Layer Closure?: 1 Number Deep Layer Sutures: 0 Sterile Dressing Applied?: Yes Progress Covered with antibiotic ointment and dressing. Tolerated procedure well with no complications. Bleeding controlled. Progress/Results/Core Measures My Orders Orders - CIRILO PAEZ MD Lidocaine/Epi 2% 1:100,000 (Xylocaine/Ep (12/06/17 23:12) Lidocaine/Epi 2% 1:100,000 (Xylocaine/Ep (12/06/17 23:30) Medications Given in ED Current Medications Medications Dose Ordered Sig/Jt Route Start Time Stop Time Status Last Admin Dose Admin Lidocaine/ Epinephrine 20 ml ONCE ONCE INJ 12/06/17 23:30 12/06/17 23:31 DC 12/06/17 23:34 20 ML Vital Signs/I&O 12/06/17 22:31 Temp 98.1 Pulse 86 Resp 24 B/P (MAP) 130/87 (101) Pulse Ox 96 O2 Delivery Nasal Cannula O2 Flow Rate 2.00 Blood Pressure Mean: 101 Progress Note : Progress Note Seen and evaluated. Pressure dressing and ice pack placed. Rechecked approximately 20 minutes later and bleeding continues. This will require suture repair. Discussed with patient who agrees. Repair by me. Covered with dressing and antibiotic ointment. Discharged home with return precautions. Patient verbalize understanding instructions and agreement with plan. Departure Impression Primary Impression: Laceration of left foot excluding toes Qualified Codes: S91.312A - Laceration without foreign body, left foot, initial encounter Disposition: HOME, SELF-CARE Condition: Improved Departure-Patient Inst. Decision time for Depature: 23:26 Referrals: CHAO PAT DO (PCP/Family) Primary Care Physician Patient Instructions: Laceration Repair With Stitches (DC) Add. Discharge Instructions: All discharge instructions reviewed with patient and/or family. Voiced understanding. Sutures out in 10-14 days. Use antibiotic ointment and dressing over foot. Replace dressing once or twice daily for the next several days and then as needed. Follow-up with your Dr. in a few days for recheck as needed. Return for worse pain, fever, vomiting, weakness, breathing problems, persistent bleeding or other concerns as needed. CIRILO PAEZ MD Dec 06, 2017 23:26
[2017-12-06] MEDS: LIDOCAINE/EPI 2% 1:100,00 (XYLOCAINE) 20 ML VIAL INJ ONE (23:34)
[2017-12-07 00:09] VITALS: BP 139/81
[2017-12-19] MEDS ORDERED: PRD20T PO (11:43)
[2017-12-19] MEDS ORDERED: FURO80TA83 PO (11:43)
[2017-12-19] MEDS ORDERED: FLUC100T PO (11:43)
[2017-12-19] MEDS ORDERED: ASPI-999 PO (11:43)
== END 2017-12-07 00:09 | disposition home or self-care (01) ==
LOC: EDUNIT# 22:29 → ER 22:31
DX: S91.312A Laceration without foreign body, left foot, initial encounter (principal); J44.9 Chronic obstructive pulmonary disease, unspecified; I48.91 Unspecified atrial fibrillation; I25.10 Atherosclerotic heart disease of native coronary artery without angina pectoris; I25.2 Old myocardial infarction; E78.00 Pure hypercholesterolemia, unspecified; I10 Essential (primary) hypertension; E03.9 Hypothyroidism, unspecified; E11.42 Type 2 diabetes mellitus with diabetic polyneuropathy; F41.9 Anxiety disorder, unspecified; Z87.19 Personal history of other diseases of the digestive system; Z87.440 Personal history of urinary (tract) infections; Z87.891 Personal history of nicotine dependence; Z95.1 Presence of aortocoronary bypass graft; Z95.5 Presence of coronary angioplasty implant and graft; Z82.49 Family history of ischemic heart disease and other diseases of the circulatory system; Z90.89 Acquired absence of other organs; Z98.52 Vasectomy status; Z79.51 Long term (current) use of inhaled steroids; Z79.4 Long term (current) use of insulin; Z87.01 Personal history of pneumonia (recurrent); Z88.5 Allergy status to narcotic agent; Z91.018 Allergy to other foods; X58.XXXA Exposure to other specified factors, initial encounter
CPT/HCPCS: 12002

== ENCOUNTER 2017-12-11 22:21 | Inpatient (IN) | payer OTHER, MEDICARE ==
[~2017-12-11] VITALS: Ht 172.7 cm; Wt 183.4 kg
--- NOTE | 2017-12-11 22:34 | ED Respiratory ---
General Chief Complaint: Respiratory Problems Stated Complaint: SOA Source: patient Exam Limitations: no limitations History of Present Illness Date Seen by Provider: December 11, 2017 Time Seen by Provider: 22:22 Initial Comments Here with report of worsening shortness of breath. Also complains of increasing eye bilateral lower extremities. Recent changes to his Lasix to Bumex and states that is not working. Denies chest pain. Denies fever. Did recently pull his left groin and has swelling and bruising from that. Patient is on Plavix and eliquis. Denies nausea or vomiting. Shortness of breath was so severe he was unable to walk to the car. EMS brought patient in on CPAP which greatly improved his symptoms. Timing/Duration: this afternoon, getting worse Severity: severe Prior Episodes/Possible Cause: occasional episodes Modifying Factors: Worse With Coughing; Improves With Oxygen Associated Symptoms: No cough, No fever/chills, No nasal congestion; shortness of breath; No wheezing Allergies and Home Medications Allergies Coded Allergies: Bbjnynn-Ipg-Qil Reductase Inhibitor (Verified Allergy, Unknown, 10/15/17) codeine (Verified Allergy, Unknown, 10/15/17) fish oil (Verified Allergy, Unknown, 10/15/17) Home Medications Albuterol Sulfate 2.5 Mg/3 Ml Vial.neb, 2.5 MG NEB Q4H PRN for SHORTNESS OF BREATH, (Reported) Albuterol Sulfate 1 Puff Puff, 2 PUFF INH Q4H PRN for SHORTNESS OF BREATH, ( Reported) Apixaban 5 Mg Tablet, 5 MG PO BID, (Reported) Bumetanide 1 Mg Tablet, 2 MG PO DAILY@0700 Prescribed by: CHAO PAT on 11/30/17 1135 Cetirizine HCl/Pseudoephedrine 1 Each Tab.er.12h, 1 TAB PO DAILY, (Reported) Ciprofloxacin HCl 500 Mg Tablet, 750 MG PO BID Prescribed by: CHAO PAT on 11/30/17 1135 Clopidogrel Bisulfate 75 Mg Tablet, 75 MG PO DAILY, (Reported) Diltiazem HCl 240 Mg Cap.er.deg, 240 MG PO DAILY, (Reported) Docusate Sodium 100 Mg Capsule, 500 MG PO DAILY PRN for CONSTIPATION-1ST LINE, ( Reported) Esomeprazole Magnesium 20 Mg Capsule.dr, 20 MG PO HS, (Reported) Finasteride 5 Mg Tablet, 2.5 MG PO HS, (Reported) TAKES 1/2 (5MG) TABLET Fluticasone Propionate 16 Gm [place].susp, 2 SPRAY NS BID Prescribed by: CHAO PAT on 11/30/17 1135 Fluticasone/Salmeterol 1 Each Blst.w.dev, 1 PUFF IH BID, (Reported) Hydrocodone Bit/Acetaminophen 1 Each Tablet, 1 TAB PO Q6H PRN for PAIN-MODERATE, (Reported) Insulin Detemir 100 Unit/1 Ml Insuln.pen, 20 UNITS SC BID, (Reported) Insulin Lispro 100 Unit/1 Ml Insuln.pen, 50 UNITS SQ ACHS, (Reported) Lactulose 10 Gm/15 Ml Solution, 2 TBS PO Q4H PRN for CONSTIPATION-3RD LINE, ( Reported) Levothyroxine Sodium 25 Mcg Tablet, 25 MCG PO DAILY, (Reported) Lidocaine 1 Each Adh..patch, 1 PATCH TP DAILY PRN for KNEE/BACK PAIN, (Reported) 5% Meloxicam 15 Mg Tablet, 15 MG PO DAILY, (Reported) Metolazone 5 Mg Tablet, 5 MG PO DAILY, (Reported) Metoprolol Succinate 50 Mg Tab.er.24h, 50 MG PO DAILY, (Reported) Montelukast Sodium 10 Mg Tablet, 10 MG PO HS, (Reported) Potassium Chloride 10 Meq Tablet.er, 20 MEQ PO BID, (Reported) TAKES 2 (10MEQ) TABLETS Prednisone 10 Mg Tab, 20 MG PO DAILY 2 pills once daily for 3 days then 1 pill norma for 4 days Prescribed by: CHAO PAT on 11/30/17 113 Rosuvastatin Calcium 5 Mg Tablet, 5 MG PO DAILY, (Reported) Sennosides 15 Mg Tablet, 1 TAB PO DAILY PRN for CONSTIPATION-5TH LINE, (Reported ) Spironolactone 25 Mg Tablet, 50 MG PO DAILY, (Reported) TAKES 2 (25MG) TABLETS Sulfamethoxazole/Trimethoprim 1 Each Tablet, 1 TAB PO DAILY, (Reported) Tamsulosin HCl 0.4 Mg Cap.er.24h, 0.4 MG PO DAILY, (Reported) Patient Home Medication List Home Medication List Reviewed: Yes Review of Systems Constitutional: see HPI; No chills, No fever EENTM: no symptoms reported Respiratory: see HPI, short of breath; No wheezing Cardiovascular: No chest pain, No edema, No palpitations Gastrointestinal: No abdominal pain, No nausea, No vomiting Genitourinary: no symptoms reported Musculoskeletal: see HPI, muscle pain, muscle stiffness Skin: change in color; No lesions Psychiatric/Neurological: Denies Anxiety; Weakness Hematologic/Lymphatic: Easy Bleeding, Easy Bruising All Other Systems Reviewed Negative Unless Noted: Yes Past Igaeden-Iijvhy-Cglsuu Hx Past Med/Social Hx: Reviewed Nursing Past Med/Soc Hx Patient Social History Alcohol Use: Occasionally Uses Alcohol Beverage of Choice: Whiskey Recreational Drug Use: No Smoking Status: Former Smoker Type Used: Cigarettes Former Smoker, Quit: Aug 13, 1996 Recent Hopitalizations: Yes Immunizations Up To Date Tetanus Booster (TDap): Less than 5yrs PED Vaccines UTD: No Date of Pneumonia Vaccine: May 13, 2017 Date of Influenza Vaccine: May 13, 2017 Seasonal Allergies Seasonal Allergies: Yes Past Medical History Surgeries: Yes Adenoidectomy, Cardiac, CABG, Coronary Stent, Gallbladder, Tonsillectomy, Transurethral Resection, Vasectomy Respiratory: Yes Asthma, Pneumonia, COPD Currently Using CPAP: Yes Currently Using BIPAP: No Cardiac: Yes Atrial Fibrillation, Chronic Edema/Swelling, Coronary Artery Disease, Heart Attack, High Cholesterol, Hypertension Neurological: Yes Neuropathy Reproductive Disorders: No Genitourinary: Yes Prostate Problems, Bladder Infection, UTI-Chronic Gastrointestinal: Yes Chronic Constipation Musculoskeletal: Yes Arthritis, Chronic Back Pain Endocrine: Yes Diabetes, Insulin dep, Hypothyroidsim HEENT: Yes Cataract Loss of Vision: Denies Hearing Impairment: Denies Cancer: No Psychosocial: Yes Anxiety Integumentary: Yes Pruritis Blood Disorders: No Adverse Reaction/Blood Tranf: No Family Medical History Reviewed Nursing Family Hx Cancer 03 FATHER Congestive heart failure 03 MOTHER Family history: Arthritis 03 MOTHER Family history: Asthma 03 MOTHER Family history: Cardiovascular disease 03 MOTHER Family history: Diabetes mellitus 09 BROTHER Family history: Gastrointestinal disease 03 FATHER History of drug abuse 09 BROTHER Asthma, Heart Disease, Hypertension Physical Exam Vital Signs Vital Signs - First Documented 12/11/17 12/11/17 22:23 22:29 Temp 98.4 Pulse 83 Resp 25 B/P (MAP) 108/78 (88) Pulse Ox 100 O2 Delivery NIV/Bilevel O2 Flow Rate 50.00 Capillary Refill : General Appearance: WD/WN, no apparent distress HEENT: PERRL/EOMI, pharynx normal Neck: full range of motion, supple Respiratory: lungs clear (on BiPAP); No wheezing Cardiovascular: regular rate, rhythm, no murmur Gastrointestinal: non tender, soft Extremities: non-tender, normal inspection Neurologic/Psychiatric: alert, oriented x 3 Skin: normal color, warm/dry Focused Exam Lactate Level 12/11/17 00:00: Lactic Acid Level Laboratory Tests Test 12/11/17 00:00 Procedures/Interventions Suture Size: 4-0 Progress/Results/Core Measures Suspected Sepsis SIRS Temperature: Pulse: Respiratory Rate: Laboratory Tests 12/11/17 22:25: White Blood Count 16.9H Blood Pressure / Mean: 12/11/17 00:00: Laboratory Tests 12/11/17 22:25: Creatinine 1.58H, INR Comment 1.5H, Platelet Count 322, Total Bilirubin 0.8 Results/Orders Lab Results Laboratory Tests Test 12/11/17 00:00 12/11/17 22:25 12/11/17 22:32 Range/Units White Blood Count 16.9 H 4.3-11.0 10^3/uL Red Blood Count 2.72 L 4.35-5.85 10^6/uL Hemoglobin 7.0 L 13.3-17.7 G/DL Hematocrit 23 L 40-54 % Mean Corpuscular Volume 83 80-99 FL Mean Corpuscular Hemoglobin 26 25-34 PG Mean Corpuscular Hemoglobin Concent 31 L 32-36 G/DL Red Cell Distribution Width 15.7 H 10.0-14.5 % Platelet Count 322 130-400 10^3/uL Mean Platelet Volume 9.4 7.4-10.4 FL Neutrophils (%) (Auto) 76 H 42-75 % Lymphocytes (%) (Auto) 11 L 12-44 % Monocytes (%) (Auto) 10 0-12 % Eosinophils (%) (Auto) 3 0-10 % Basophils (%) (Auto) 0 0-10 % Neutrophils # (Auto) 12.8 H 1.8-7.8 X 10^3 Lymphocytes # (Auto) 1.9 1.0-4.0 X 10^3 Monocytes # (Auto) 1.6 H 0.0-1.0 X 10^3 Eosinophils # (Auto) 0.6 H 0.0-0.3 10^3/uL Basophils # (Auto) 0.0 0.0-0.1 10^3/uL Neutrophils % (Manual) 86 % Lymphocytes % (Manual) 4 % Monocytes % (Manual) 5 % Eosinophils % (Manual) 1 % Basophils % (Manual) 0 % Band Neutrophils 4 % Blood Morphology Comment NORMAL Prothrombin Time 17.9 H 12.2-14.7 SEC INR Comment 1.5 H 0.8-1.4 Activated Partial Thromboplast Time 46 H 24-35 SEC Sodium Level 136 135-145 MMOL/L Potassium Level 3.5 L 3.6-5.0 MMOL/L Chloride Level 100 98-107 MMOL/L Carbon Dioxide Level 24 21-32 MMOL/L Anion Gap 12 5-14 MMOL/L Blood Urea Nitrogen 24 H 7-18 MG/DL Creatinine 1.58 H 0.60-1.30 MG/DL Estimat Glomerular Filtration Rate 44 BUN/Creatinine Ratio 15 Glucose Level 283 H 70-105 MG/DL Calcium Level 8.9 8.5-10.1 MG/DL Magnesium Level 1.9 1.8-2.4 MG/DL Total Bilirubin 0.8 0.1-1.0 MG/DL Aspartate Amino Transf (AST/SGOT) 18 5-34 U/L Alanine Aminotransferase (ALT/SGPT) 17 0-55 U/L Alkaline Phosphatase 80 40-136 U/L C-Reactive Protein High Sensitivity 4.54 H 0.00-0.50 MG/DL B-Type Natriuretic Peptide 162.1 H <100.0 PG/ML Total Protein 7.1 6.4-8.2 GM/DL Albumin 3.7 3.2-4.5 GM/DL Blood Gas Puncture Site RIGHT RADIAL Blood Gas Patient Temperature 98.4 Arterial Blood pH 7.43 7.37-7.43 Arterial Blood Partial Pressure CO2 39 35-45 MMHG Arterial Blood Partial Pressure O2 163 H 79-93 MMHG Arterial Blood HCO3 25 23-27 MMOL/L Arterial Blood Total CO2 26.6 21.0-31.0 MMOL/L Arterial Blood Oxygen Saturation 100 94-100 % Arterial Blood Base Excess 1.6 -2.5-2.5 MMOL/L Michael Test POSITIVE Blood Gas Ventilator Setting NO Blood Gas Inspired Oxygen 50% BIPAP My Orders Orders - CIRILO PAEZ MD Arterial Blood Gas (12/11/17 22:28) BNP (12/11/17 22:28) Cbc With Automated Diff (12/11/17 22:28) Comprehensive Metabolic Panel (12/11/17 22:28) Hs C Reactive Protein (12/11/17 22:28) Magnesium (12/11/17 22:28) Protime With Inr (12/11/17 22:28) Partial Thromboplastin Time (12/11/17 22:28) Chest 1 View, Ap/Pa Only (12/11/17 22:28) Ekg Tracing (12/11/17 22:34) Albuterol/Ipra Inhalation Soln (Duoneb I (12/11/17 22:40) Manual Differential (12/11/17 22:25) Furosemide Injection (Lasix Injection) (12/11/17 23:31) Lactic Acid Analyzer (12/11/17 23:34) Blood Culture (12/11/17 23:34) Meropenem (Merrem 500 Mg) (12/12/17 00:00) Medications Given in ED Current Medications Medications Dose Ordered Sig/Jt Route Start Time Stop Time Status Last Admin Dose Admin Albuterol/ Ipratropium 3 ml STK-MED ONCE .ROUTE 12/11/17 22:40 12/11/17 22:45 DC 12/11/17 22:45 3 ML Vital Signs/I&O 12/11/17 12/11/17 12/11/17 22:23 22:29 22:45 Temp 98.4 Pulse 83 76 80 Resp 25 20 31 B/P (MAP) 108/78 (88) Pulse Ox 100 99 98 O2 Delivery NIV/Bilevel O2 Flow Rate 50.00 40.00 Capillary Refill : Progress Note : Progress Note Seen and evaluated. IV by EMS. Labs, chest x-ray and ABG ordered. Patient converted to BiPAP at 16/8 on 50 percent with excellent response. Monitor patient. 2332: I did discuss the case with Dr. Noel, patient's primary. She accepts patient for admission, inpatient status. Patient does have elevated white count and findings concerning for the possibility of pneumonia. Does have history of resistant organism that is sensitive to meropenem and Cipro. I will initiate meropenem currently and adjustments can be made later. Meropenem 500 mg IV ordered. We will also put the patient on vancomycin given his multiple recent hospitalizations. Patient to be admitted to cardiac step down. Findings concerns discussed with patient and family who agree with plan. Lasix 80 mg IV ordered. ECG Initial ECG Impression Date: December 11, 2017 Initial ECG Impression Time: 22:52 Initial ECG Rate: 85 Initial ECG Rhythm: A Fib/Flutter Initial ECG Comparisson: Unchanged Comment Atrial fibrillation with normal axis. No evidence of ST elevation NC. Similar to previous. Interpreted by me. Diagnostic Imaging Diagonstic Imaging: Xray Plain Films/CT/US/NM/MRI: chest Comments Left lower lobe infiltrate with moderate pulmonary vascular congestion. Departure Impression Primary Impression: Left lower lobe pneumonia Qualified Codes: J18.1 - Lobar pneumonia, unspecified organism Additional Impressions: Bilateral lower extremity edema Respiratory failure Qualified Codes: J96.01 - Acute respiratory failure with hypoxia Disposition: 09 ADMITTED INPATIENT Condition: Stable Admissions Decision to Admit Reason: Admit from ER (General) Decision to Admit/Date: December 11, 2017 Time/Decision to Admit Time: 23:32 Departure-Patient Inst. Referrals: CHAO PAT DO (PCP/Family) Primary Care Physician CIRILO PAEZ MD December 11, 2017 22:34
[2017-12-11 22:35] LABS: BASOPHILS % (AUTO) 0 % (0-10); EOSINOPHILS # (AUTO) 0.6 10^3/uL (0.0-0.3); EOSINOPHILS % (AUTO) 3 % (0-10); HEMATOCRIT 23 % (40-54); LYMPHOCYTES # (AUTO) 1.9 X 10^3 (1.0-4.0); LYMPHOCYTES % (AUTO) 11 % (12-44); MEAN CORPUSCULAR HEMOGLOBIN 26 PG (25-34); MEAN CORPUSCULAR HGB CONC 31 G/DL (32-36); MEAN CORPUSCULAR VOLUME 83 FL (80-99); MEAN PLATELET VOLUME 9.4 FL (7.4-10.4); MONOCYTES # (AUTO) 1.6 X 10^3 (0.0-1.0); MONOCYTES % (AUTO) 10 % (0-12); NEUTROPHILS # (AUTO) 12.8 X 10^3 (1.8-7.8); NEUTROPHILS % (AUTO) 76 % (42-75); PLATELET COUNT 322 10^3/uL (130-400); RED BLOOD COUNT 2.72 10^6/uL (4.35-5.85); RED CELL DISTRIBUTION WIDTH 15.7 % (10.0-14.5); WHITE BLOOD COUNT 16.9 10^3/uL (4.3-11.0)
[2017-12-11] MEDS ORDERED: RT-ALBUTEROL/IPRATROPIUM 3 ML (DUONEB) VIAL ONE (22:40)
[2017-12-11 22:43] LABS: ABG BASE EXCESS 1.6 MMOL/L (-2.5-2.5); ABG OXYGEN SATURATION 100 % (94-100); ABG PCO2 39 MMHG (35-45); ABG PH 7.43 (7.37-7.43); ABG PO2 163 MMHG (79-93); ABG TCO2 26.6 MMOL/L (21.0-31.0)
[2017-12-11 22:44] LABS: ALLENS TEST POSITIVE; INSPIRED O2 50% BIPAP; PATIENT TEMP 98.4; VENTILATOR NO
[2017-12-11 22:47] LABS: INR 1.5 (0.8-1.4); PROTHROMBIN TIME PATIENT 17.9 SEC (12.2-14.7)
[2017-12-11 22:54] LABS: ALBUMIN 3.7 GM/DL (3.2-4.5); BILIRUBIN,TOTAL 0.8 MG/DL (0.1-1.0); CALCIUM 8.9 MG/DL (8.5-10.1); CREATININE SERUM 1.58 MG/DL (0.60-1.30); MAGNESIUM 1.9 MG/DL (1.8-2.4); POTASSIUM 3.5 MMOL/L (3.6-5.0); TOTAL PROTEIN 7.1 GM/DL (6.4-8.2)
[2017-12-11 23:14] LABS: BAND NEUTROPHILS 4 %; BASOPHILS % (MANUAL) 0 %; EOSINOPHILS % (MANUAL) 1 %; LYMPHOCYTES % (MANUAL) 4 %; MONOCYTES % (MANUAL) 5 %; NEUTROPHILS % (MANUAL) 86 %; RBC MORPH NORMAL
[2017-12-11] MEDS ORDERED: FUROSEMIDE 40 MG/4 ML INJ (LASIX) IV STA (23:31)
[2017-12-12] VITALS (27 sets, daily range): BP systolic 80–165; BP diastolic 30–102
[2017-12-12] MEDS ORDERED: MEROPENEM 500 MG in NS (IVPB) 100 ML IV ONE ×2
[2017-12-12] MEDS ORDERED: RT-ALBUTEROL/IPRATROPIUM 3 ML (DUONEB) VIAL INH PRN (03:15)
[2017-12-12 03:53] LABS: BASOPHILS % (AUTO) 0 % (0-10); EOSINOPHILS # (AUTO) 0.5 10^3/uL (0.0-0.3); EOSINOPHILS % (AUTO) 4 % (0-10); HEMATOCRIT 23 % (40-54); LYMPHOCYTES # (AUTO) 1.8 X 10^3 (1.0-4.0); LYMPHOCYTES % (AUTO) 12 % (12-44); MEAN CORPUSCULAR HEMOGLOBIN 25 PG (25-34); MEAN CORPUSCULAR HGB CONC 30 G/DL (32-36); MEAN CORPUSCULAR VOLUME 83 FL (80-99); MONOCYTES # (AUTO) 1.5 X 10^3 (0.0-1.0); MONOCYTES % (AUTO) 9 % (0-12); NEUTROPHILS # (AUTO) 11.6 X 10^3 (1.8-7.8); NEUTROPHILS % (AUTO) 75 % (42-75); PLATELET COUNT 328 10^3/uL (130-400); RED BLOOD COUNT 2.76 10^6/uL (4.35-5.85); WHITE BLOOD COUNT 15.5 10^3/uL (4.3-11.0)
[2017-12-12 04:22] LABS: ALBUMIN 3.8 GM/DL (3.2-4.5); BILIRUBIN,TOTAL 0.9 MG/DL (0.1-1.0); CALCIUM 9.1 MG/DL (8.5-10.1); CREATININE SERUM 1.5 MG/DL (0.60-1.30); MAGNESIUM 1.8 MG/DL (1.8-2.4); PHOSPHORUS 2.8 MG/DL (2.3-4.7); POTASSIUM 3.5 MMOL/L (3.6-5.0); TOTAL PROTEIN 7.4 GM/DL (6.4-8.2)
[2017-12-12] MEDS ORDERED: VANCOMYCIN 1 GM/NS 250 ML IVPB IV SCH ×2 (04:30)
[2017-12-12] MEDS ORDERED: CATHETER FLUSH 10 ML SYR IV PRN (04:30)
[2017-12-12] MEDS: MAGNESIUM 1 GM/100 ML IVPB 100 ML IV SCH (04:54)
[2017-12-12] MEDS: POTASSIUM CL 10MEQ/50ML IVPB 50 ML IV SCH (04:54)
[2017-12-12] MEDS: KCL 20 MEQ TAB (K-DUR) PO SCH (04:55)
[2017-12-12] MEDS: NS IV 1000 ML 1,000 ML IV SCH (05:08)
[2017-12-12] MEDS: CATHETER FLUSH 10 ML SYR IV SCH ×2 (05:09→14:30)
[2017-12-12] MEDS: RT-ALBUTEROL/IPRATROPIUM 3 ML (DUONEB) VIAL INH SCH ×5 (06:32→22:43)
--- NOTE | 2017-12-12 06:45 | Diagnostic Imaging Report ---
INDICATION: Shortness of breath with swelling of legs. Comparison with 11/28/2017. FINDINGS: Study is quite limited due to morbid obesity and portable technique. There is cardiomegaly. There does appear to be some pulmonary edema. There is probable left basilar effusion. Median sternotomy changes are present. IMPRESSION: Very limited study with findings suggesting mild congestive failure. Dictated by: Dictated on workstation # [id number]
[2017-12-12] MEDS: MEROPENEM 500 MG in NS (IVPB) 100 ML IV SCH ×3 (07:45→18:55)
[2017-12-12] MEDS: inSUlin ASPART (NovoLOG) 1 UNIT/0.01 ML (CHARGE PER UNIT) SC SCH ×6 (07:45→17:56)
--- NOTE | 2017-12-12 07:54 | Diagnostic Imaging Report ---
INDICATION: Respiratory distress. Hypoxia. Comparison with 12/11/2017. FINDINGS: There has been improved aeration since previous exam. There continues to be cardiomegaly with median sternotomy changes. The lungs appear well-aerated and clear. No pneumothorax or pleural effusion. Study is limited due to morbid obesity and portable technique. IMPRESSION: 1. Continued cardiomegaly with no changes to suggest congestive failure or pneumonia. Dictated by: Dictated on workstation # [id number]
[2017-12-12] MEDS ORDERED: VANCOMYCIN 750 MG/NS 250 ML IVPB IV NR ×2 (08:03)
--- NOTE | 2017-12-12 08:53 | Consultation-Cardiology ---
HPI-Cardiology Cardiology Consultation: Date of Consultation 12/12/17 Time Seen by Provider: 09:00 Date of Admission 12-11-17 Attending Physician America Pat DO Admitting Physician America Pat DO Consulting Physician Kayla Bishop MD HPI: Chief Complaint: Respiratory failure Dyspnea Mr. Ferraro is a 66 year old male admitted to ICU2 from the ED. He reports increasing shortness of breath over the last few days. He reports his shortness of breath is limiting his ability to do his activities of daily living. He reports an occ loose cough. He reports increasing bilat LE edema. He states he does have a wound, which required 9 stitches to the bottom of he left foot a few days ago. He states he has been having several nose bleeds. He reports he stood up by his chair at home on Sunday and felt something pull in his left leg and he fell down. He reports he notice he had bruising from behind his knee to his thigh. He reports he has intermittent sharp, abdominal pain. No c/o CP, fever or palpitations. No c/o syncope or near syncope. Review of Systems-Cardiology Review of Systems Constitutional: malaise Eyes: No vision change Ears/Nose/Throat: epistaxis Respiratory: As described under HPI Cardiovascular: As described under HPI Gastrointestinal: As described under HPI; No constipation, No diarrhea Genitourinary: No dysuria, No hematuria Musculoskeletal: No joint swelling, No muscle pain Skin: As described under HPI Psychiatric/Neurological: No seizure, No focal weakness, No syncope Hematologic: As described under HPI All Other Systems Reviewed Negative Unless Noted: Yes SSY-Gfvzii-Festlz Hx Patient Social History Alcohol Use: Occasionally Uses Recreational Drug Use: No Smoking Status: Former Smoker Former smoker/When Quit: Aug 13, 2006 Type Used: Cigarettes 2nd Hand Smoke Exposure: No Recent Foreign Travel: No Recent Infectious Disease Expo: No Hospitalization with Isolation: Denies Physical Abuse Screen: No Sexual Abuse: No Immunizations Up To Date Tetanus Booster (TDap): Less than 5yrs Date of Pneumonia Vaccine: May 13, 2017 Date of Influenza Vaccine: May 13, 2017 Past Medical History PMH As described under Assessment. Family Medical History Family Medical History: Reports mother had CAD and CHF. No reported h/o premature CAD or SCD. Family History: Cancer 03 FATHER Congestive heart failure 03 MOTHER Family history: Arthritis 03 MOTHER Family history: Asthma 03 MOTHER Family history: Cardiovascular disease 03 MOTHER Family history: Diabetes mellitus 09 BROTHER Family history: Gastrointestinal disease 03 FATHER History of drug abuse 09 BROTHER Allergies and Home Medications Allergies Coded Allergies: Dapqwkz-Qpr-Bkb Reductase Inhibitor (Verified Allergy, Unknown, 10/15/17) codeine (Verified Allergy, Unknown, 10/15/17) fish oil (Verified Allergy, Unknown, 10/15/17) Home Medications Albuterol Sulfate 2.5 Mg/3 Ml Vial.neb, 2.5 MG NEB Q4H PRN for SHORTNESS OF BREATH, (Reported) Albuterol Sulfate 1 Puff Puff, 2 PUFF INH Q4H PRN for SHORTNESS OF BREATH, ( Reported) Apixaban 5 Mg Tablet, 5 MG PO BID, (Reported) Bumetanide 1 Mg Tablet, 2 MG PO DAILY@0700 Prescribed by: AMERICA PAT on 11/30/17 8338 Cetirizine HCl/Pseudoephedrine 1 Each Tab.er.12h, 1 TAB PO DAILY, (Reported) Clopidogrel Bisulfate 75 Mg Tablet, 75 MG PO DAILY, (Reported) Diltiazem HCl 240 Mg Cap.er.deg, 240 MG PO DAILY, (Reported) Docusate Sodium 100 Mg Capsule, 500 MG PO DAILY PRN for CONSTIPATION-1ST LINE, ( Reported) Esomeprazole Magnesium 20 Mg Capsule.dr, 20 MG PO HS, (Reported) Finasteride 5 Mg Tablet, 2.5 MG PO HS, (Reported) TAKES 1/2 (5MG) TABLET Fluticasone Propionate 16 Gm [place].susp, 2 SPRAYS NS HS, (Reported) Fluticasone/Salmeterol 1 Each Blst.w.dev, 1 PUFF IH BID, (Reported) Hydrocodone Bit/Acetaminophen 1 Each Tablet, 1 TAB PO Q6H PRN for PAIN-MODERATE, (Reported) Insulin Detemir 100 Unit/1 Ml Insuln.pen, 20 UNITS SC BID, (Reported) Insulin Lispro 100 Unit/1 Ml Insuln.pen, 50 UNITS SQ ACHS, (Reported) Lactulose 10 Gm/15 Ml Solution, 2 TBS PO Q4H PRN for CONSTIPATION-3RD LINE, ( Reported) Levothyroxine Sodium 25 Mcg Tablet, 25 MCG PO DAILY, (Reported) Lidocaine 1 Each Adh..patch, 1 PATCH TP DAILY PRN for KNEE/BACK PAIN, (Reported) 5% Meloxicam 15 Mg Tablet, 15 MG PO DAILY, (Reported) Metolazone 5 Mg Tablet, 5 MG PO DAILY, (Reported) Metoprolol Succinate 50 Mg Tab.er.24h, 50 MG PO DAILY, (Reported) Montelukast Sodium 10 Mg Tablet, 10 MG PO HS, (Reported) Potassium Chloride 10 Meq Tablet.er, 20 MEQ PO BID, (Reported) TAKES 2 (10MEQ) TABLETS Rosuvastatin Calcium 5 Mg Tablet, 5 MG PO DAILY, (Reported) Sennosides 15 Mg Tablet, 1 TAB PO DAILY PRN for CONSTIPATION-5TH LINE, (Reported ) Spironolactone 25 Mg Tablet, 50 MG PO DAILY, (Reported) TAKES 2 (25MG) TABLETS Sulfamethoxazole/Trimethoprim 1 Each Tablet, 1 TAB PO DAILY, (Reported) Tamsulosin HCl 0.4 Mg Cap.er.24h, 0.4 MG PO DAILY, (Reported) Umeclidinium [place] 62.5 Mcg Blst.w.dev, 1 PUFF INH DAILY, (Reported) Patient Home Medication List Home Medication List Reviewed: Yes Physical Exam-Cardiology Physical Exam Vital Signs/I&O 12/12/17 12/12/17 12/12/17 12/12/17 22:00 22:20 22:43 23:00 Pulse 87 90 90 Resp 24 28 33 B/P (MAP) 132/74 (93) 109/66 (80) Pulse Ox 95 93 92 95 O2 Delivery High Flow N/C NIV Bilevel Nasal Cannula NIV Bilevel O2 Flow Rate 8.00 3.00 8.00 3.00 12/13/17 12/13/17 12/13/17 12/13/17 00:00 00:00 00:00 01:00 Temp 97.8 Pulse 81 95 Resp 23 23 B/P (MAP) 112/57 (75) 143/91 (108) Pulse Ox 94 100 O2 Delivery NIV CPAP NIV Bilevel NIV Bilevel O2 Flow Rate 3.00 3.00 3.00 12/13/17 12/13/17 12/13/17 12/13/17 01:00 02:00 03:00 03:07 Pulse 95 77 67 Resp 19 17 B/P (MAP) 131/64 (86) 138/72 (94) Pulse Ox 96 95 95 O2 Delivery NIV Bilevel NIV Bilevel Nasal Cannula O2 Flow Rate 3.00 3.00 3.00 12/13/17 12/13/17 12/13/17 12/13/17 04:00 04:00 04:00 05:00 Temp 98.0 Pulse 70 81 Resp 21 19 B/P (MAP) 127/72 (90) 144/92 (109) Pulse Ox 93 O2 Delivery NIV CPAP NIV Bilevel NIV Bilevel O2 Flow Rate 3.00 3.00 3.00 12/13/17 12/13/17 12/13/17 12/13/17 06:00 07:01 08:00 09:00 Pulse 66 Resp 22 B/P (MAP) 121/59 (79) Pulse Ox 96 95 O2 Delivery NIV Bilevel Nasal Cannula NIV CPAP High Flow N/C O2 Flow Rate 3.00 3.00 3.00 5.00 12/13/17 00:00 Intake Total 2140 ml Output Total 2875 ml Balance -735 ml Capillary Refill : Less Than 3 Seconds Constitutional: AAO x 3, well-developed HEENT: PERRL, hearing is well preserved, oral hygience is good Neck: carotid pulses are 2 + bilaterally Respiratory: other (good air entry) Cardiovascular: irregularly irregular, S1 and S2, systolic murmur Gastrointestinal: No tender; soft Extremities: other (bilat pitting and non-pitting LE edema) Neurologic/Psychiatric: oriented x 3 Skin: ecchymosis (Left leg from the groin area, inner thigh to knee; dressing to left foot ) Data Review Labs Laboratory Tests 12/12/17 12:15: Glucometer 302H 12/12/17 14:36: Glucometer 363H 12/12/17 16:03: Glucometer 379H 12/12/17 17:08: Glucometer 449*H 12/12/17 17:59: Glucometer 326H 12/12/17 18:36: Glucometer 379H 12/12/17 19:25: Glucometer 412*H 12/12/17 21:13: Glucometer 183H 12/12/17 21:50: Glucometer 139H 12/12/17 22:49: Glucometer 136H 12/12/17 23:44: Glucometer 134H 12/13/17 00:49: Glucometer 149H 12/13/17 01:47: Glucometer 152H 12/13/17 02:54: Glucometer 160H 12/13/17 03:11: White Blood Count 14.5H, Red Blood Count 2.92L, Hemoglobin 7.5L, Hematocrit 24L , Mean Corpuscular Volume 81, Mean Corpuscular Hemoglobin 26, Mean Corpuscular Hemoglobin Concent 32, Red Cell Distribution Width 15.3H, Platelet Count 329, Mean Platelet Volume 9.8, Neutrophils (%) (Auto) 93H, Lymphocytes (%) (Auto) 5L , Monocytes (%) (Auto) 2, Eosinophils (%) (Auto) 0, Basophils (%) (Auto) 0, Neutrophils # (Auto) 13.5H, Lymphocytes # (Auto) 0.8L, Monocytes # (Auto) 0.2, Eosinophils # (Auto) 0.0, Basophils # (Auto) 0.0, Sodium Level 133L, Potassium Level 3.2L, Chloride Level 95L, Carbon Dioxide Level 25, Anion Gap 13, Blood Urea Nitrogen 29H, Creatinine 1.41H, Estimat Glomerular Filtration Rate 50, BUN/ Creatinine Ratio 21, Glucose Level 136H, Calcium Level 9.1, Phosphorus Level 3.2 , Magnesium Level 1.8, Total Bilirubin 0.9, Aspartate Amino Transf (AST/SGOT) 26 , Alanine Aminotransferase (ALT/SGPT) 15, Alkaline Phosphatase 75, Total Protein 6.9, Albumin 3.6 12/13/17 04:07: Glucometer 154H 12/13/17 05:16: Glucometer 151H 12/13/17 06:10: Glucometer 157H 12/13/17 07:37: Glucometer 141H 12/13/17 08:30: Glucometer 161H Microbiology 12/12/17 Blood Culture - Preliminary, Resulted No growth Radiology NAME: JOSEJENNIFER Sanches [place] REC#: [id number] PT STATUS: ADM IN : 1950 PHYSICIAN: AMERICA PAT DO ADMIT DATE: 12/11/17/ICU Draft Date of Exam:12/12/17 CHEST 1 VIEW, AP/PA ONLY INDICATION: Respiratory distress. Hypoxia. Comparison with 12/11/2017. FINDINGS: There has been improved aeration since previous exam. There continues to be cardiomegaly with median sternotomy changes. The lungs appear well-aerated and clear. No pneumothorax or pleural effusion. Study is limited due to morbid obesity and portable technique. IMPRESSION: 1. Continued cardiomegaly with no changes to suggest congestive failure or pneumonia. Dictated on workstation # [id number] Dict: 12/12/17 0746 Trans: 12/12/17 [id number] [id number] Interpreted by: MARTINE ROSE MD Electronically signed by: A/P-Cardiology Assessment/Admission Diagnosis Dyspnea likely multifactorial - ac on chronic diastolic CHF, ac exacerbation of COPD, pneumonia and obesity hypoventilation syndrome Obesity (BMI approx 62) with obesity-hypoventilation Acute on chr exacerbation of COPD Pneumonia - management per medical services Ac on chronic diastolic CHF - continue diuretic regimen Persistent a-fib first diagnosed in early February 2016, rate controlled Anemia of undetermined etiology - management by Dr. Pat of medical services OAC with Eliquis CAD with a h/o CABG in 2006 at [facility] in [place], [place]. On cardiac cath of 11-11-15: Multivessel coronary disease including multiple more than 90% stenosis of the proximal and mid left anterior descending artery. The mid to distal left anterior descending artery is protected with a widely patent left internal mammary artery graft. The left circumflex artery had 99% ostial/ proximal stenosis to which successful stenting was carried out with Promus Premier 3.5 x 20 mm stent with a reduction of stenosis to 0% residual. The distal left circumflex and its obtuse marginal branches have diffuse moderate to moderately severe disease which were not intervened on. The right coronary artery is dominant and had 90% proximal stenosis to which successful stenting was carried out with Promus Premier 2.75 x 28 mm stent with reduction of stenosis to 0% residual. The distal right coronary artery has multiple stenoses of 50 to 60%, which were not intervened on. Cardiac cath of 11-11-15 showed well preserved global left ventricular systolic function and ejection fraction of 55 to 60%. Elevated left ventricular end- diastolic pressure which was measured at approximately 20 mmHg. No significant mitral regurgitation. ABIs on 01/13/16 at [place], [place]: 1.1 on both sides Echocardiogram of 09/14/17 (Dr Costello): LVEF 55-65%, dilated LA, supotimal study Chronic bilat leg swelling, likely due to venous insuff, no evidence of DVT on on venous duplex of 09/13/17 Hypertension COPD Quit smoking in early DM II Chronic renal insufficiency - chronic likely due in some part to diabetic nephropathy Sleep apnea syndrome - CPAP therapy - managed by Dr. Paris Minimal carotid dz on u/s of November 2015 Electrolyte abnormalities - likely d/t diuretic tx - replace Clinical Quality Measures DVT/VTE Risk/Contraindication: Risk Factor Score Per Nursin RFS Level Per Nursing on Admit: 2=Moderate BENJAMIN ARROYO December 12, 2017 08:53
[2017-12-12] MEDS ORDERED: KCL 20 MEQ TAB (K-DUR) PO ONE (09:00)
[2017-12-12] MEDS ORDERED: FLUT16SP22 NS (09:35)
[2017-12-12] MEDS ORDERED: UMEC62.5 INH (09:35)
[2017-12-12] MEDS ORDERED: SENNOSIDES PO PRN (10:00)
[2017-12-12] MEDS ORDERED: RT-ALBUTEROL SULF 2.5 MG/3 ML PRE-MIX VIAL IH PRN ×2 (10:00→10:30)
[2017-12-12] MEDS ORDERED: LIDOCAINE (LIDODERM) 5% PATCH TP PRN (10:00)
[2017-12-12] MEDS ORDERED: NON-FORMULARY MEDICATION 1 EA EA (Albuterol Sulfate (Proair Hfa) 2 PUFF) INH PRN (10:00)
[2017-12-12] MEDS ORDERED: LACTULOSE 10 GM/15 ML 30 ML POUR BOTTLE FOR ENEMA PO PRN (10:00)
[2017-12-12] MEDS ORDERED: LIDODERM PATCH REMOVAL TP PRN (10:15)
[2017-12-12] MEDS ORDERED: FUROSEMIDE 40 MG/4 ML INJ (LASIX) ONE ×2 (10:23→10:32)
[2017-12-12] MEDS ORDERED: SENNOSIDES 8.6 MG (SENOKOT) TAB PO PRN (10:45)
[2017-12-12] MEDS: FUROSEMIDE 40 MG/4 ML INJ (LASIX) IVP SCH ×2 (10:46→16:59)
[2017-12-12] MEDS ORDERED: INSULIN LISPRO 50 UNIT SQ SCH (11:00)
[2017-12-12] MEDS ORDERED: NS IV 1000 ML 1,000 ML IV SCH (11:24)
[2017-12-12] MEDS ORDERED: NS IV 500 ML 500 ML IV SCH (11:28)
[2017-12-12] MEDS ORDERED: methylPREDNISolone 40 MG/ML (Solu-MEDROL) VIAL ONE (11:29)
[2017-12-12] MEDS ORDERED: inSUlin (REGULAR) HUMAN 1 UNIT/0.01 ML (CHARGE PER UNIT) IV ONE (11:30)
[2017-12-12] MEDS ORDERED: SENNOSIDES 8.6 MG (SENOKOT) TAB PO NR (11:30)
--- NOTE | 2017-12-12 11:35 | History & Physical-Hospitalist ---
History of Present Illness HPI/Chief Complaint CC: Dyspnea HPI: This is a 66yoWM clinic patient of mine who has had multiple hospital stays in the last 6 months for either congestive heart failure or exacerbation of COPD or pneumonia who presented to the ER with shortness of breath after his brought him on a ride around town. He reports that he has had syncopal episodes at home several per day of which he failed to mention to me when I saw him on Sunday but his has made it clear that he is declining rapidly and became upset during this interview process. I did have Sid with palliative care with me during this visit because the severe medical conditions he has is apparently declining rapidly and I had a long talk with him about the fact that all of his medical problems had up to multiple issues resulting in a major decline in his status. He reports no evidence of any fever but did lose a lot of blood when he had a cut on his left foot and presented to the ER and had sutures but has been having bleeding episodes from different type of minor abrasion since that time and his hemoglobin is 7.0. He is also having abdominal cramping severe in nature that is occurring periodically that was present before gallbladder removal but has since returned at times. I will have Dr. Joy see him likely will need transfusion but volume overload is a concern. He was placed on empiric antibiotics for presumed pneumonia but chest x-ray reveals only atelectasis but will continue the current treatment that he is wheezing so I will add Solu-Medrol and initiate non-DKA insulin infusion protocol. Source: patient, RN/MD, caregiver Exam Limitations: no limitations Date Seen 12/12/17 Time Seen by Provider: 10:00 Attending Physician America Hutton DO PCP America Hutton DO Referring Physician Date of Admission December 11, 2017 at 23:40 Home Medications & Allergies Home Medications Reviewed patient Home Medication Reconciliation performed by pharmacy medication reconciliations pharmacy technician inpatient and/or nursing. Patients Allergies have been reviewed. Allergies Allergies Coded Allergies Rfrldve-Mcc-Hwa Reductase Inhibitor (Verified Allergy, Unknown, 10/15/17) codeine (Verified Allergy, Unknown, 10/15/17) fish oil (Verified Allergy, Unknown, 10/15/17) Past Ykgjqps-Fmjlzo-Jwnspi Hx Past Med/Social Hx: Reviewed Nursing Past Med/Soc Hx, Reviewed and Corrections made Patient Social History Marrital Status: Employed/Student: retired Alcohol Use: Occasionally Uses Number of Drinks Today: 0 Alcohol Beverage of Choice: Whiskey Recreational Drug Use: No Smoking Status: Former Smoker Former Smoker, Quit: Aug 13, 1996 Type Used: Cigarettes 2nd Hand Smoke Exposure: No Physical Abuse Screen: No Sexual Abuse: No Recent Foreign Travel: No Contact w/other who traveled: No Recent Hopitalizations: Yes Recent Infectious Disease Expo: No Immunizations Up To Date Tetanus Booster (TDap): Less than 5yrs Pediatric: No Date of Pneumonia Vaccine: May 13, 2017 Date of Influenza Vaccine: May 13, 2017 Seasonal Allergies Seasonal Allergies: Yes Past Medical History Surgeries: Adenoidectomy, Cardiac, CABG, Coronary Stent, Gallbladder, Tonsillectomy, Transurethral Resection, Vasectomy Respiratory: Chronic Bronchitis, COPD, Pneumonia, Sleep Apnea Currently Using CPAP: Yes Currently Using BIPAP: No Cardiac: Atrial Fibrillation, Chronic Edema/Swelling, Coronary Artery Disease, Heart Attack, High Cholesterol, Hypertension Neurological: Neuropathy Reproductive: No Genitourinary: Prostate Problems, Bladder Infection, UTI-Chronic Gastrointestinal: Chronic Constipation Musculoskeletal: Arthritis, Chronic Back Pain Endocrine: Diabetes, Insulin dep, Hypothyroidsim HEENT: Cataract Loss of Vision: Denies Hearing Impairment: Denies Psychosocial: Anxiety Skin/Integumentary: Pruritis History of Blood Disorders: No Adverse Reaction to Blood Leal: No Family History Reviewed Nursing Family Hx Cancer 03 FATHER Congestive heart failure 03 MOTHER Family history: Arthritis 03 MOTHER Family history: Asthma 03 MOTHER Family history: Cardiovascular disease 03 MOTHER Family history: Diabetes mellitus 09 BROTHER Family history: Gastrointestinal disease 03 FATHER History of drug abuse 09 BROTHER Asthma, Heart Disease, Hypertension Review of Systems Constitutional: see HPI, dizziness, weakness EENTM: no symptoms reported Respiratory: dyspnea on exertion, short of breath, wheezing Cardiovascular: no symptoms reported Gastrointestinal: abdominal pain (RUQ) Genitourinary: no symptoms reported Musculoskeletal: back pain Skin: no symptoms reported Psychiatric/Neurological: Anxiety, Depressed, Weakness All Other Systems Reviewed Negative Unless Noted: Yes Physical Exam Physical Exam Vital Signs Vital Signs - First Documented 12/11/17 12/11/17 12/12/17 22:23 22:29 02:00 Temp 98.4 Pulse 83 Resp 25 B/P (MAP) 108/78 (88) Pulse Ox 100 O2 Delivery NIV/Bilevel O2 Flow Rate 50.00 FiO2 40 Capillary Refill : Less Than 3 Seconds General Appearance: No Apparent Distress, WD/WN, Chronically ill, Obese Eyes: Bilateral Eye Normal Inspection, Bilateral Eye PERRL HEENT: PERRL/EOMI, Normal ENT Inspection, Pharynx Normal Neck: Full Range of Motion, Normal Inspection, Non Tender, Supple, Carotid Bruit Respiratory: Chest Non Tender, No Accessory Muscle Use, No Respiratory Distress , Wheezing Cardiovascular: No Edema, No Gallop, No JVD, No Murmur, Normal Peripheral Pulses, Irregularly Irregular Gastrointestinal: Normal Bowel Sounds, No Organomegaly, No Pulsatile Mass, Non Tender, Soft Back: Normal Inspection, No CVA Tenderness, No Vertebral Tenderness Extremity: Normal Capillary Refill, Normal Inspection, Normal Range of Motion, Non Tender, No Calf Tenderness, Pedal Edema Neurologic/Psychiatric: Alert, Oriented x3, No Motor/Sensory Deficits, Normal Mood/Affect Skin: Normal Color, Warm/Dry Lymphatic: No Adenopathy Results Results/Procedures Labs Laboratory Tests 12/11/17 22:25 12/12/17 03:23 Patient resulted labs reviewed. Assessment/Plan Admission Diagnosis Dyspnea due to early pneumonia/bacterial bronchitis with exacerbation of COPD with severe anemia Plan: Transfuse 1 unit of blood Consult Dr. Joy Reconcile all home meds High-dose steroids with non-DKA insulin infusion protocol Palliative care consult Poor prognosis long-term Admission Status: Inpatient Order (span 2 midnights) Reason for Inpatient Admission: Severe anemia with acute exacerbation of COPD with volume overload Diagnosis/Problems Diagnosis/Problems (1) Respiratory failure Status: Acute Qualifiers: Chronicity: acute Respiratory failure complication: hypoxia Qualified Codes: J96.01 - Acute respiratory failure with hypoxia (2) Anemia Status: Acute Qualifiers: Anemia type: iron deficiency Iron deficiency anemia type: chronic blood loss Qualified Codes: D50.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) (3) Abdominal pain Status: Chronic Qualifiers: Abdominal location: right upper quadrant Qualified Codes: R10.11 - Right upper quadrant pain (4) COPD (chronic obstructive pulmonary disease) with acute bronchitis Status: Acute (5) Chronic atrial fibrillation Status: Chronic (6) Chronic kidney disease Status: Chronic Qualifiers: Chronic kidney disease stage: stage 3 (moderate) Qualified Codes: N18.3 - Chronic kidney disease, stage 3 (moderate) (7) CAD (coronary artery disease) Status: Chronic Qualifiers: Coronary Disease-Associated Artery/Lesion type: [place] artery [place] vs. transplanted heart: [place] heart Associated angina: without angina Qualified Codes: I25.10 - Atherosclerotic heart disease of [place] coronary artery without angina pectoris (8) IDDM (insulin dependent diabetes mellitus) Status: Chronic (9) Hypothyroidism Status: Chronic (10) Obesity hypoventilation syndrome Status: Chronic (11) JOSE MANUEL (obstructive sleep apnea) Status: Chronic (12) Poor prognosis Status: Chronic Clinical Quality Measures DVT/VTE Risk/Contraindication: Risk Factor Score Per Nursin RFS Level Per Nursing on Admit: 2=Moderate AMERICA HUTTON DO December 12, 2017 11:35
[2017-12-12] MEDS: SPIRONOLACTONE 25 MG (ALDACTONE) TAB PO SCH (11:40)
[2017-12-12] MEDS: METOLAZONE 5 MG (ZAROXOLYN) TAB PO SCH (11:40)
[2017-12-12] MEDS: meTOproloL SUCCINATE 50 MG (TOPROL XL) TAB PO SCH (11:40)
[2017-12-12] MEDS: CLOPIDOGREL 75 MG (PLAVIX) TABLET PO SCH (11:43)
[2017-12-12] MEDS ORDERED: methylPREDNISolone 125 MG (Solu-MEDROL) VIAL IV SCH (12:00)
[2017-12-12] MEDS ORDERED: methylPREDNISolone 40 MG/ML (Solu-MEDROL) VIAL IV NR (12:00)
[2017-12-12] MEDS ORDERED: methylPREDNISolone 40 MG/ML (Solu-MEDROL) VIAL IV SCH (12:00)
[2017-12-12] MEDS: inSUlin REGULAR TPN/DRIP ONLY 250 UNITS in NORMAL SALINE 250 ML IV SCH (14:47)
--- NOTE | 2017-12-12 16:01 | CONSULTATION REPORT ---
DATE OF SERVICE: 12/12/2017 ATTENDING PRIMARY CARE PHYSICIAN: America Hutton DO. HISTORY OF PRESENT ILLNESS: The patient is a 66-year-old male known to us. He has a multitude of medical problems including COPD, hypertension, hypercholesterolemia, history of myocardial infarction in November of 2015, coronary artery disease and diabetes. He has had gastrointestinal issues before in the past and underwent an EGD and colonoscopy by us in March of 2017. The EGD did show a small hiatal hernia as well as a reflux esophagitis as well as a moderate gastritis; however, there were no ulcers, polyps or any neoplasms identified as well as no H. pylori. Colonoscopy showed a moderate diverticulosis as well as a small polyp of the splenic flexure, which is benign. This gentleman also had developed pain in the right upper abdominal quadrant and a CT scan was performed, which did show gallbladder wall thickening as well as gallstones. He had recurrent discomfort and symptoms and he did undergo a laparoscopic cholecystectomy on 10/16/2017. He did well after the surgery and was discharged home. He was admitted late last night for worsening shortness of breath as well as bilateral lower extremity edema. This is not a new phenomenon and he is oxygen dependent at home. Based on his signs and symptoms, it appears that he is fluid overloaded and does have bilateral lower extremity edema; however, also does have exacerbation of COPD with pneumonia. On this admission, he was also found to be anemic with a hemoglobin of 7.1. He does not report any episodes of nausea or vomiting and states that he is tolerating a regular diet. He also does not report any red blood per rectum nor any dark tarry stools; however, has had constipation in the past. PAST MEDICAL HISTORY: COPD, asthma, chronic pharyngitis, prostatitis, hypertension, hypercholesterolemia, history of myocardial infarction 11/2015, coronary artery disease, peptic ulcer disease, history of Roth esophagus, and bilateral lower extremity edema. PAST SURGICAL HISTORY: Coronary artery bypass grafting x1 vessel in 2007, cardiac catheterization and stent placement x2 11/2015 and laparoscopic cholecystectomy 10/2017. ALLERGIES: STATINS and FISH OIL. MEDICATIONS: Metaxalone 5 mg daily, lactulose 10 mg p.r.n., Synthroid 25 mcg daily, potassium 20 mEq daily, Eliquis 5 mg b.i.d., Plavix 75 mg daily, aspirin 81 mg daily, Cardizem 120 mg daily, Spiriva 2.5 mcg 2 puffs daily, hydroxyzine 25 mcg p.r.n., Zofran p.r.n., hydrocodone p.r.n., insulin sliding scale, Lantus insulin 20 units each at bedtime, Singulair 10 mg daily, albuterol nebulizer q.i.d., Atrovent inhaler t.i.d., Zyrtec daily, Crestor 5 mg daily, metoprolol 50 mg daily, Advair Diskus 500/50 mg b.i.d., spironolactone 25 mg b.i.d., Proscar 5 mg daily and Flomax 0.4 mg daily. SOCIAL HISTORY: Previous smoker, quit in 1999 and mild social alcohol. FAMILY HISTORY: Noncontributory. REVIEW OF SYSTEMS: A well-nourished male currently awake and alert, sitting at bedside. He does have some labored breathing; however, tolerable with oxygen therapy. He does report cough; however, states that this occurs most of the time. He does not report any new sputum production. No chest pain, palpitations or diaphoresis. No nausea or vomiting, history of chronic constipation, no red blood per rectum, no dark tarry stools. No fever, chills and no recent inadvertent weight loss. There is bilateral lower extremity edema, negative Shruthi's sign. All other review of systems is negative. PHYSICAL EXAMINATION: VITAL SIGNS: Temperature 97.6, blood pressure 129/70, pulse 101, respirations 30, pulse ox 92% on 8 liters nasal cannula. CHEST: Scattered rales and rhonchi bilaterally as well as expiratory wheezes. HEART: Regular, no murmurs. EXTREMITIES: +3/3 bilateral lower extremity edema. Negative Shruthi's sign. HEENT: No scleral icterus. NECK: No cervical lymphadenopathy. ABDOMEN: Soft, nontender and nondistended. SKIN: Warm and dry. LABORATORY DATA: WBCs 15.5, hemoglobin 7.0, hematocrit 23 and platelets 328. ASSESSMENT AND PLAN: A 66-year-old male with exacerbation of COPD, congestive heart failure and bilateral lower extremity edema as well as pneumonia and anemia. He does have a history of coronary artery disease and is on 3 different anticoagulants. We did do an EGD and colonoscopy on him March of 2017, which did not show any active bleeding as well as no potential bleeding sources. At this time, we feel that his anemia is multifactorial and may be due to his multiple disease processes versus small amounts of gastrointestinal bleeding due to the anticoagulation that is undetected. For now, we will recommend conservative management with continued monitoring of hemoglobin as well as proton pump inhibitor and prevention of constipation. Job ID: [id number] DocumentID: [id number] Dictated Date: 12/12/2017 15:09:20 Stringed Instrument Repairer Date: 12/12/2017 16:00:44 Dictated By: HAWK GREENWOOD MD MTDMary Lou
--- NOTE | 2017-12-12 16:54 | Consultation-Cardiology ---
HPI-Cardiology Cardiology Consultation: Date of Consultation 12/12/17 Time Seen by Provider: 12:30 Date of Admission Attending Physician America Pat DO Admitting Physician America Pat DO Consulting Physician CATY PENALOZA MD, FACP, FACC HPI: Chief Complaint: Respiratory failure Dyspnea Mr. Ferraro is a 66 year old male admitted to ICU2 from the ED. He reports increasing shortness of breath over the last few days. He reports his shortness of breath is limiting his ability to do his activities of daily living. He reports an occ loose cough. He reports increasing bilat LE edema. He states he does have a wound, which required 9 stitches to the bottom of he left foot a few days ago. He states he has been having several nose bleeds. He reports he stood up by his chair at home on Sunday and felt something pull in his left leg and he fell down. He reports he notice he had bruising from behind his knee to his thigh. He reports he has intermittent sharp, abdominal pain. No c/o CP, fever or palpitations. No c/o syncope or near syncope. Review of Systems-Cardiology Review of Systems Constitutional: malaise Eyes: No vision change Ears/Nose/Throat: epistaxis Respiratory: As described under HPI Cardiovascular: As described under HPI Gastrointestinal: As described under HPI; No constipation, No diarrhea Genitourinary: No dysuria, No hematuria Musculoskeletal: No joint swelling, No muscle pain Skin: As described under HPI Psychiatric/Neurological: No seizure, No focal weakness, No syncope Hematologic: As described under HPI All Other Systems Reviewed Negative Unless Noted: Yes WZD-Jamnau-Fsieom Hx Patient Social History Marrital Status: Employed/Student: retired Alcohol Use: Occasionally Uses Recreational Drug Use: No Smoking Status: Former Smoker Former smoker/When Quit: Aug 13, 2006 Type Used: Cigarettes 2nd Hand Smoke Exposure: No Recent Foreign Travel: No Recent Infectious Disease Expo: No Hospitalization with Isolation: Denies Physical Abuse Screen: No Sexual Abuse: No Immunizations Up To Date Tetanus Booster (TDap): Less than 5yrs Date of Pneumonia Vaccine: May 13, 2017 Date of Influenza Vaccine: May 13, 2017 Past Medical History PMH As described under Assessment. Family Medical History Family Medical History: Reports mother had CAD and CHF. No reported h/o premature CAD or SCD. Family History: Cancer 03 FATHER Congestive heart failure 03 MOTHER Family history: Arthritis 03 MOTHER Family history: Asthma 03 MOTHER Family history: Cardiovascular disease 03 MOTHER Family history: Diabetes mellitus 09 BROTHER Family history: Gastrointestinal disease 03 FATHER History of drug abuse 09 BROTHER Allergies and Home Medications Allergies Coded Allergies: Bgavfry-Rky-Fyo Reductase Inhibitor (Verified Allergy, Unknown, 10/15/17) codeine (Verified Allergy, Unknown, 10/15/17) fish oil (Verified Allergy, Unknown, 10/15/17) Home Medications Albuterol Sulfate 2.5 Mg/3 Ml Vial.neb, 2.5 MG NEB Q4H PRN for SHORTNESS OF BREATH, (Reported) Albuterol Sulfate 1 Puff Puff, 2 PUFF INH Q4H PRN for SHORTNESS OF BREATH, ( Reported) Apixaban 5 Mg Tablet, 5 MG PO BID, (Reported) Bumetanide 1 Mg Tablet, 2 MG PO DAILY@0700 Prescribed by: AMERICA PAT on 11/30/17 1135 Cetirizine HCl/Pseudoephedrine 1 Each Tab.er.12h, 1 TAB PO DAILY, (Reported) Clopidogrel Bisulfate 75 Mg Tablet, 75 MG PO DAILY, (Reported) Diltiazem HCl 240 Mg Cap.er.deg, 240 MG PO DAILY, (Reported) Docusate Sodium 100 Mg Capsule, 500 MG PO DAILY PRN for CONSTIPATION-1ST LINE, ( Reported) Esomeprazole Magnesium 20 Mg Capsule.dr, 20 MG PO HS, (Reported) Finasteride 5 Mg Tablet, 2.5 MG PO HS, (Reported) TAKES 1/2 (5MG) TABLET Fluticasone Propionate 16 Gm Petroleum.susp, 2 SPRAYS NS HS, (Reported) Fluticasone/Salmeterol 1 Each Blst.w.dev, 1 PUFF IH BID, (Reported) Hydrocodone Bit/Acetaminophen 1 Each Tablet, 1 TAB PO Q6H PRN for PAIN-MODERATE, (Reported) Insulin Detemir 100 Unit/1 Ml Insuln.pen, 20 UNITS SC BID, (Reported) Insulin Lispro 100 Unit/1 Ml Insuln.pen, 50 UNITS SQ ACHS, (Reported) Lactulose 10 Gm/15 Ml Solution, 2 TBS PO Q4H PRN for CONSTIPATION-3RD LINE, ( Reported) Levothyroxine Sodium 25 Mcg Tablet, 25 MCG PO DAILY, (Reported) Lidocaine 1 Each Adh..patch, 1 PATCH TP DAILY PRN for KNEE/BACK PAIN, (Reported) 5% Meloxicam 15 Mg Tablet, 15 MG PO DAILY, (Reported) Metolazone 5 Mg Tablet, 5 MG PO DAILY, (Reported) Metoprolol Succinate 50 Mg Tab.er.24h, 50 MG PO DAILY, (Reported) Montelukast Sodium 10 Mg Tablet, 10 MG PO HS, (Reported) Potassium Chloride 10 Meq Tablet.er, 20 MEQ PO BID, (Reported) TAKES 2 (10MEQ) TABLETS Rosuvastatin Calcium 5 Mg Tablet, 5 MG PO DAILY, (Reported) Sennosides 15 Mg Tablet, 1 TAB PO DAILY PRN for CONSTIPATION-5TH LINE, (Reported ) Spironolactone 25 Mg Tablet, 50 MG PO DAILY, (Reported) TAKES 2 (25MG) TABLETS Sulfamethoxazole/Trimethoprim 1 Each Tablet, 1 TAB PO DAILY, (Reported) Tamsulosin HCl 0.4 Mg Cap.er.24h, 0.4 MG PO DAILY, (Reported) Umeclidinium [place] 62.5 Mcg Blst.w.dev, 1 PUFF INH DAILY, (Reported) Patient Home Medication List Home Medication List Reviewed: Yes Physical Exam-Cardiology Physical Exam Vital Signs/I&O 12/12/17 12/12/17 12/12/17 12/12/17 05:00 06:00 06:32 06:40 Pulse 76 93 80 Resp 17 19 25 B/P (MAP) 80/54 (63) 105/57 (73) Pulse Ox 100 99 97 O2 Delivery NIV Bilevel NIV Bilevel High Flow N/C O2 Flow Rate 40.00 40.00 40.00 8.00 12/12/17 12/12/17 12/12/17 12/12/17 06:46 07:00 08:00 08:00 Pulse 88 Pulse Ox 92 O2 Delivery Nasal Cannula High Flow N/C High Flow N/C O2 Flow Rate 8.00 8.00 8.00 12/12/17 12/12/17 12/12/17 12/12/17 08:00 11:32 12:00 12:00 Temp 99.0 97.6 Pulse 101 Resp 30 B/P (MAP) 129/70 (89) Pulse Ox 96 92 O2 Delivery High Flow N/C Nasal Cannula High Flow N/C O2 Flow Rate 8.00 8.00 8.00 5/2/18 5/2/18 5/2/18 5/2/18 14:27 15:12 15:27 16:00 Temp 99.1 98.8 Pulse 92 86 Resp 16 22 B/P (MAP) 154/89 139/71 Pulse Ox 92 92 100 O2 Delivery Nasal Cannula High Flow N/C High Flow N/C High Flow N/C O2 Flow Rate 8.00 8.00 8.00 8.00 Capillary Refill : Less Than 3 Seconds Constitutional: AAO x 3, well-developed HEENT: PERRL, hearing is well preserved, oral hygience is good Neck: carotid pulses are 2 + bilaterally Respiratory: other (good air entry) Cardiovascular: irregularly irregular, S1 and S2, systolic murmur Gastrointestinal: No tender; soft Extremities: other (bilat pitting and non-pitting LE edema) Neurologic/Psychiatric: oriented x 3 Skin: ecchymosis (Left leg from the groin area, inner thigh to knee; dressing to left foot ) Data Review Labs Laboratory Tests 12/11/17 22:25: White Blood Count 16.9H, Red Blood Count 2.72L, Hemoglobin 7.0L, Hematocrit 23L , Mean Corpuscular Volume 83, Mean Corpuscular Hemoglobin 26, Mean Corpuscular Hemoglobin Concent 31L, Red Cell Distribution Width 15.7H, Platelet Count 322, Mean Platelet Volume 9.4, Neutrophils (%) (Auto) 76H, Lymphocytes (%) (Auto) 11L , Monocytes (%) (Auto) 10, Eosinophils (%) (Auto) 3, Basophils (%) (Auto) 0, Neutrophils # (Auto) 12.8H, Lymphocytes # (Auto) 1.9, Monocytes # (Auto) 1.6H, Eosinophils # (Auto) 0.6H, Basophils # (Auto) 0.0, Neutrophils % (Manual) 86, Lymphocytes % (Manual) 4, Monocytes % (Manual) 5, Eosinophils % (Manual) 1, Basophils % (Manual) 0, Band Neutrophils 4, Blood Morphology Comment NORMAL, Prothrombin Time 17.9H, INR Comment 1.5H, Activated Partial Thromboplast Time 46H, Sodium Level 136, Potassium Level 3.5L, Chloride Level 100, Carbon Dioxide Level 24, Anion Gap 12, Blood Urea Nitrogen 24H, Creatinine 1.58H, Estimat Glomerular Filtration Rate 44, BUN/Creatinine Ratio 15, Glucose Level 283H, Calcium Level 8.9, Magnesium Level 1.9, Total Bilirubin 0.8, Aspartate Amino Transf (AST/SGOT) 18, Alanine Aminotransferase (ALT/SGPT) 17, Alkaline Phosphatase 80, C-Reactive Protein High Sensitivity 4.54H, B-Type Natriuretic Peptide 162.1H, Total Protein 7.1, Albumin 3.7 12/11/17 22:32: Blood Gas Puncture Site RIGHT RADIAL, Blood Gas Patient Temperature 98.4, Arterial Blood pH 7.43, Arterial Blood Partial Pressure CO2 39, Arterial Blood Partial Pressure O2 163H, Arterial Blood HCO3 25, Arterial Blood Total CO2 26.6 , Arterial Blood Oxygen Saturation 100, Arterial Blood Base Excess 1.6, Michael Test POSITIVE, Blood Gas Ventilator Setting NO, Blood Gas Inspired Oxygen 50% BIPAP 12/12/17 00:07: Lactic Acid Level 1.11 12/12/17 03:23: White Blood Count 15.5H, Red Blood Count 2.76L, Hemoglobin 7.0L, Hematocrit 23L , Mean Corpuscular Volume 83, Mean Corpuscular Hemoglobin 25, Mean Corpuscular Hemoglobin Concent 30L, Red Cell Distribution Width 16.0H, Platelet Count 328, Mean Platelet Volume 10.0, Neutrophils (%) (Auto) 75, Lymphocytes (%) (Auto) 12 , Monocytes (%) (Auto) 9, Eosinophils (%) (Auto) 4, Basophils (%) (Auto) 0, Neutrophils # (Auto) 11.6H, Lymphocytes # (Auto) 1.8, Monocytes # (Auto) 1.5H, Eosinophils # (Auto) 0.5H, Basophils # (Auto) 0.0, Sodium Level 136, Potassium Level 3.5L, Chloride Level 99, Carbon Dioxide Level 25, Anion Gap 12, Blood Urea Nitrogen 23H, Creatinine 1.50H, Estimat Glomerular Filtration Rate 47, BUN/ Creatinine Ratio 15, Glucose Level 264H, Calcium Level 9.1, Magnesium Level 1.8 , Total Bilirubin 0.9, Aspartate Amino Transf (AST/SGOT) 22, Alanine Aminotransferase (ALT/SGPT) 14, Alkaline Phosphatase 79, Total Protein 7.4, Albumin 3.8, Phosphorus Level 2.8 12/12/17 12:15: Glucometer 302H 12/12/17 14:36: Glucometer 363H 12/12/17 16:03: Glucometer 379H Microbiology 12/12/17 Blood Culture - Preliminary, Resulted No growth A/P-Cardiology Assessment/Admission Diagnosis Dyspnea likely multifactorial - ac on chronic diastolic CHF, ac exacerbation of COPD, pneumonia and obesity hypoventilation syndrome Obesity (BMI approx 62) with obesity-hypoventilation Acute on chr exacerbation of COPD Pneumonia - management per medical services Ac on chronic diastolic CHF - continue diuretic regimen Persistent a-fib first diagnosed in early February 2016, rate controlled Anemia of undetermined etiology - management by Dr. Pat of medical services OAC with Eliquis CAD with a h/o CABG in 2006 at [facility] in [place], [place]. On cardiac cath of 11-11-15: Multivessel coronary disease including multiple more than 90% stenosis of the proximal and mid left anterior descending artery. The mid to distal left anterior descending artery is protected with a widely patent left internal mammary artery graft. The left circumflex artery had 99% ostial/ proximal stenosis to which successful stenting was carried out with Promus Premier 3.5 x 20 mm stent with a reduction of stenosis to 0% residual. The distal left circumflex and its obtuse marginal branches have diffuse moderate to moderately severe disease which were not intervened on. The right coronary artery is dominant and had 90% proximal stenosis to which successful stenting was carried out with Promus Premier 2.75 x 28 mm stent with reduction of stenosis to 0% residual. The distal right coronary artery has multiple stenoses of 50 to 60%, which were not intervened on. Cardiac cath of 11-11-15 showed well preserved global left ventricular systolic function and ejection fraction of 55 to 60%. Elevated left ventricular end- diastolic pressure which was measured at approximately 20 mmHg. No significant mitral regurgitation. ABIs on 01/13/16 at [place], [place]: 1.1 on both sides Echocardiogram of 09/14/17 (Dr Costello): LVEF 55-65%, dilated LA, supotimal study Chronic bilat leg swelling, likely due to venous insuff, no evidence of DVT on on venous duplex of 09/13/17 Hypertension COPD Quit smoking in early DM II Chronic renal insufficiency - chronic likely due in some part to diabetic nephropathy Sleep apnea syndrome - CPAP therapy - managed by Dr. aPris Minimal carotid dz on u/s of November 2015 Electrolyte abnormalities - likely d/t diuretic tx - replace Discussion and Recomendations * Complex management issue * Transfuse to maintain Hgb 10 or greater * Stop OAC * Investigate anemia * iv diuretics * Treat pneumonia * I spoke with him and answered questions Clinical Quality Measures DVT/VTE Risk/Contraindication: Risk Factor Score Per Nursin RFS Level Per Nursing on Admit: 2=Moderate CATY PENALOZA MD FACP [facility] December 12, 2017 16:54
[2017-12-12] MEDS: KCL 10 MEQ TAB (MICRO K) PO SCH (17:04)
[2017-12-12] MEDS: ENOXAPARIN 40 MG/0.4 ML (LOVENOX) SYR SC SCH (17:55)
[2017-12-12] MEDS: methylPREDNISolone 125 MG (Solu-MEDROL) VIAL IV SCH (17:56)
[2017-12-12] MEDS: TAMSULOSIN 0.4 MG (FLOMAX) CAP PO SCH (17:56)
[2017-12-12] MEDS: RT-ADVAIR HFA 115/21 MCG PER PUFF IH SCH (19:30)
[2017-12-12] MEDS ORDERED: FINASTERIDE PO SCH (21:00)
[2017-12-12] MEDS ORDERED: NON-FORMULARY MEDICATION 1 EA EA (Montelukast Sodium 10 MG) PO SCH (21:00)
[2017-12-12] MEDS ORDERED: NON-FORMULARY MEDICATION 1 EA EA (Fluticasone/Salmeterol (Advair 500-50 Diskus) 1 PUFF) IH SCH (21:00)
[2017-12-12] MEDS ORDERED: NON-FORMULARY MEDICATION 1 EA EA (Fluticasone Propionate 2 SPRAYS) NS SCH (21:00)
[2017-12-12] MEDS ORDERED: inSUlin DETERMIR 1 UNIT/0.01 ML (LEVEMIR) CHARGE PER UNIT SQ SCH (21:00)
[2017-12-12] MEDS ORDERED: APIXABAN 5 MG (ELIQUIS) TABLET PO SCH (21:00)
[2017-12-12] MEDS ORDERED: NON-FORMULARY MEDICATION 1 EA EA (Insulin Detemir (Levemir Flextouch) 20 UNITS) SC SCH (21:00)
[2017-12-12] MEDS ORDERED: NON-FORMULARY MEDICATION 1 EA EA (Esomeprazole Magnesium (Nexium 24Hr) 20 MG) PO SCH (21:00)
[2017-12-12] MEDS ORDERED: inSUlin DETERMIR 1 UNIT/0.01 ML (LEVEMIR) CHARGE PER UNIT SQ ONE (21:06)
[2017-12-12] MEDS: HYDROcodone/APAP 7.5 MG/325 MG (LORTAB, LORCET PLUS) TABLET PO PRN (21:15)
[2017-12-12] MEDS: inSUlin DETERMIR 1 UNIT/0.01 ML (LEVEMIR) CHARGE PER UNIT SQ SCH (21:16)
[2017-12-12] MEDS: PANTOPRAZOLE 20 MG TABLET (PROTONIX) PO SCH (21:16)
[2017-12-12] MEDS: MONTELUKAST 10 MG (SINGULAIR) TAB PO SCH (21:16)
[2017-12-12] MEDS: FINASTERIDE (PROSCAR) 5 MG TAB PO SCH (21:16)
[2017-12-13] VITALS (16 sets, daily range): BP systolic 97–149; BP diastolic 57–99
[2017-12-13] MEDS: methylPREDNISolone 125 MG (Solu-MEDROL) VIAL IV SCH ×4 (01:05→17:59)
[2017-12-13] MEDS: MEROPENEM 500 MG in NS (IVPB) 100 ML IV SCH ×4 (01:05→17:59)
[2017-12-13] MEDS: RT-ALBUTEROL/IPRATROPIUM 3 ML (DUONEB) VIAL INH SCH ×6 (03:07→22:50)
[2017-12-13 03:36] LABS: BASOPHILS % (AUTO) 0 % (0-10); EOSINOPHILS % (AUTO) 0 % (0-10); HEMATOCRIT 24 % (40-54); HEMOGLOBIN 7.5 G/DL (13.3-17.7); LYMPHOCYTES # (AUTO) 0.8 X 10^3 (1.0-4.0); LYMPHOCYTES % (AUTO) 5 % (12-44); MEAN CORPUSCULAR HEMOGLOBIN 26 PG (25-34); MEAN CORPUSCULAR HGB CONC 32 G/DL (32-36); MEAN CORPUSCULAR VOLUME 81 FL (80-99); MEAN PLATELET VOLUME 9.8 FL (7.4-10.4); MONOCYTES # (AUTO) 0.2 X 10^3 (0.0-1.0); MONOCYTES % (AUTO) 2 % (0-12); NEUTROPHILS # (AUTO) 13.5 X 10^3 (1.8-7.8); NEUTROPHILS % (AUTO) 93 % (42-75); PLATELET COUNT 329 10^3/uL (130-400); RED BLOOD COUNT 2.92 10^6/uL (4.35-5.85); RED CELL DISTRIBUTION WIDTH 15.3 % (10.0-14.5); WHITE BLOOD COUNT 14.5 10^3/uL (4.3-11.0)
[2017-12-13 04:03] LABS: ALBUMIN 3.6 GM/DL (3.2-4.5); BILIRUBIN,TOTAL 0.9 MG/DL (0.1-1.0); CALCIUM 9.1 MG/DL (8.5-10.1); CREATININE SERUM 1.41 MG/DL (0.60-1.30); MAGNESIUM 1.8 MG/DL (1.8-2.4); PHOSPHORUS 3.2 MG/DL (2.3-4.7); POTASSIUM 3.2 MMOL/L (3.6-5.0); TOTAL PROTEIN 6.9 GM/DL (6.4-8.2)
[2017-12-13] MEDS ORDERED: VANCOMYCIN INJECTION 1,750 MG in NS IV 500 ML 500 ML IV SCH (06:00)
[2017-12-13] MEDS: CATHETER FLUSH 10 ML SYR IV SCH ×4 (06:19→22:00)
[2017-12-13] MEDS: NS IV 1000 ML 1,000 ML IV SCH (06:20)
[2017-12-13] MEDS: POTASSIUM CL 10MEQ/50ML IVPB 50 ML IV SCH (06:20)
[2017-12-13] MEDS: MAGNESIUM 1 GM/100 ML IVPB 100 ML IV SCH (06:20)
[2017-12-13] MEDS: KCL 20 MEQ TAB (K-DUR) PO SCH (06:46)
[2017-12-13] MEDS: LEVOTHYROXINE 25 MCG (LEVOTHROID) TAB PO SCH (06:54)
[2017-12-13] MEDS: RT-ADVAIR HFA 115/21 MCG PER PUFF IH SCH ×2 (07:01→19:03)
[2017-12-13] MEDS: UMECLIDINIUM BROMIDE (INCRUSE ELLIPTA) 7'S IH SCH (07:01)
[2017-12-13] MEDS: KCL 10 MEQ TAB (MICRO K) PO SCH ×2 (08:14→17:59)
[2017-12-13] MEDS: SPIRONOLACTONE 25 MG (ALDACTONE) TAB PO SCH (08:14)
[2017-12-13] MEDS: CLOPIDOGREL 75 MG (PLAVIX) TABLET PO SCH (08:15)
[2017-12-13] MEDS: PSEUDOEPHEDRINE HCL 30 MG (SUDAFED) TAB PO SCH (08:15)
[2017-12-13] MEDS: ROSUVASTATIN 5 MG (CRESTOR) TABLET PO SCH (08:15)
[2017-12-13] MEDS: METOLAZONE 5 MG (ZAROXOLYN) TAB PO SCH (08:15)
[2017-12-13] MEDS: MELOXICAM 7.5 MG (MOBIC) TABLET PO SCH (08:15)
[2017-12-13] MEDS: meTOproloL SUCCINATE 50 MG (TOPROL XL) TAB PO SCH (08:15)
[2017-12-13] MEDS: LORATADINE (CLARITIN) 10 MG TAB PO SCH (08:16)
[2017-12-13] MEDS: TRIM/SULFAMETH 160/800 (SEPTRA DS) TAB PO SCH (08:16)
[2017-12-13] MEDS: FUROSEMIDE 40 MG/4 ML INJ (LASIX) IVP SCH ×2 (08:16→17:58)
[2017-12-13] MEDS: DILTIAZEM 240 MG (CARDIZEM CD) CAP PO SCH (08:16)
--- NOTE | 2017-12-13 08:36 | Diagnostic Imaging Report ---
INDICATION: Respiratory failure, hypoxia.. TECHNIQUE: Single view chest 3:18 AM. CORRELATION STUDY: 12/12/2017 FINDINGS: Sternotomy changes with multiple fragmented sternal wires. Cardiac enlargement, prominent mediastinum appears increased. Vascular remains prominent perhaps slightly less severe. Right pleural effusion is present. Superimposed edema versus infiltrate is noted. IMPRESSION: 1. Cardiac enlargement and vascular congestion. The severity of congestion may presently be minimally improved. Pleural effusions, scattered areas of atelectasis, infiltrate or edema throughout both lung araiza. Dictated by: Dictated on workstation # [id number]
[2017-12-13] MEDS ORDERED: TRIMETHOPRIM PO SCH (09:00)
[2017-12-13] MEDS ORDERED: KCL 20 MEQ TAB (K-DUR) PO ONE ×2 (09:00→11:00)
[2017-12-13] MEDS ORDERED: NON-FORMULARY MEDICATION 1 EA EA (Metoprolol Succinate 50 MG) PO SCH (09:00)
[2017-12-13] MEDS ORDERED: METOLAZONE 5 MG PO SCH (09:00)
[2017-12-13] MEDS ORDERED: PSEUDOEPHEDRINE PO SCH (09:00)
[2017-12-13] MEDS ORDERED: SULFAMETHOXAZOLE PO SCH (09:00)
[2017-12-13] MEDS ORDERED: CETIRIZINE HCL PO SCH (09:00)
[2017-12-13] MEDS ORDERED: [UNRECOGNIZED DRUG - OTHER] PO SCH (09:00)
[2017-12-13] MEDS ORDERED: NON-FORMULARY MEDICATION 1 EA EA (Diltiazem HCl (Dilt-Xr) 240 MG) PO SCH (09:00)
[2017-12-13] MEDS ORDERED: TAMSULOSIN 0.4 MG (FLOMAX) CAP PO SCH (09:00)
[2017-12-13] MEDS ORDERED: NON-FORMULARY MEDICATION 1 EA EA (Meloxicam 15 MG) PO SCH (09:00)
[2017-12-13] MEDS ORDERED: [UNRECOGNIZED DRUG - OTHER] PO SCH (09:00)
--- NOTE | 2017-12-13 09:19 | Progress Note-Cardiology ---
Cardiology SOAP Progress Note Subjective: Sitting up on the side of the bed. States he feels his breathing is better today. No c/o CP or palpitations. Feels LE swelling is somewhat better. Objective: I&O/Vital Signs 12/12/17 12/12/17 12/13/17 12/13/17 22:43 23:00 00:00 00:00 Temp 97.8 Pulse 90 Resp 33 B/P (MAP) 109/66 (80) Pulse Ox 92 95 O2 Delivery Nasal Cannula NIV Bilevel NIV CPAP O2 Flow Rate 8.00 3.00 3.00 12/13/17 12/13/17 12/13/17 12/13/17 00:00 01:00 01:00 02:00 Pulse 81 95 95 77 Resp 23 23 19 B/P (MAP) 112/57 (75) 143/91 (108) 131/64 (86) Pulse Ox 94 100 96 O2 Delivery NIV Bilevel NIV Bilevel NIV Bilevel O2 Flow Rate 3.00 3.00 3.00 12/13/17 12/13/17 12/13/17 12/13/17 03:00 03:07 04:00 04:00 Temp 98.0 Pulse 67 Resp 17 B/P (MAP) 138/72 (94) Pulse Ox 95 95 O2 Delivery NIV Bilevel Nasal Cannula NIV CPAP O2 Flow Rate 3.00 3.00 3.00 12/13/17 12/13/17 12/13/17 12/13/17 04:00 05:00 06:00 07:00 Pulse 70 81 66 88 Resp 21 19 22 B/P (MAP) 127/72 (90) 144/92 (109) 121/59 (79) Pulse Ox 93 96 O2 Delivery NIV Bilevel NIV Bilevel NIV Bilevel O2 Flow Rate 3.00 3.00 3.00 12/13/17 12/13/17 12/13/17 07:01 08:00 09:00 Pulse Ox 95 O2 Delivery Nasal Cannula NIV CPAP High Flow N/C O2 Flow Rate 3.00 3.00 5.12/13/17 00:00 Intake Total 2140 ml Output Total 2875 ml Balance -735 ml Weight (Pounds): 400 Weight (Ounces): 0.0 Weight (Calculated Kilograms): [phone] Constitutional: AAO x 3, well-developed Respiratory: other (good air entry) Cardiovascular: irregularly irregular, S1 and S2, systolic murmur Gastrointestional: No tender; soft Extremities: other (bilat pitting and non-pitting LE edema) Neurologic/Psychiatric: oriented x 3 Skin: ecchymosis (Left leg from the groin area, inner thigh to knee; dressing to left foot ) Results/Procedures: Labs Laboratory Tests 12/12/17 12:15: Glucometer 302H 12/12/17 14:36: Glucometer 363H 12/12/17 16:03: Glucometer 379H 12/12/17 17:08: Glucometer 449*H 12/12/17 17:59: Glucometer 326H 12/12/17 18:36: Glucometer 379H 12/12/17 19:25: Glucometer 412*H 12/12/17 21:13: Glucometer 183H 12/12/17 21:50: Glucometer 139H 12/12/17 22:49: Glucometer 136H 12/12/17 23:44: Glucometer 134H 12/13/17 00:49: Glucometer 149H 12/13/17 01:47: Glucometer 152H 12/13/17 02:54: Glucometer 160H 12/13/17 03:11: White Blood Count 14.5H, Red Blood Count 2.92L, Hemoglobin 7.5L, Hematocrit 24L , Mean Corpuscular Volume 81, Mean Corpuscular Hemoglobin 26, Mean Corpuscular Hemoglobin Concent 32, Red Cell Distribution Width 15.3H, Platelet Count 329, Mean Platelet Volume 9.8, Neutrophils (%) (Auto) 93H, Lymphocytes (%) (Auto) 5L , Monocytes (%) (Auto) 2, Eosinophils (%) (Auto) 0, Basophils (%) (Auto) 0, Neutrophils # (Auto) 13.5H, Lymphocytes # (Auto) 0.8L, Monocytes # (Auto) 0.2, Eosinophils # (Auto) 0.0, Basophils # (Auto) 0.0, Sodium Level 133L, Potassium Level 3.2L, Chloride Level 95L, Carbon Dioxide Level 25, Anion Gap 13, Blood Urea Nitrogen 29H, Creatinine 1.41H, Estimat Glomerular Filtration Rate 50, BUN/ Creatinine Ratio 21, Glucose Level 136H, Calcium Level 9.1, Phosphorus Level 3.2 , Magnesium Level 1.8, Total Bilirubin 0.9, Aspartate Amino Transf (AST/SGOT) 26 , Alanine Aminotransferase (ALT/SGPT) 15, Alkaline Phosphatase 75, Total Protein 6.9, Albumin 3.6 12/13/17 04:07: Glucometer 154H 12/13/17 05:16: Glucometer 151H 12/13/17 06:10: Glucometer 157H 12/13/17 07:37: Glucometer 141H 12/13/17 08:30: Glucometer 161H 12/13/17 09:33: Glucometer 173H Microbiology 12/12/17 Blood Culture - Preliminary, Resulted No growth Procedures NAME: JENNIFER GARCIA [facility] REC#: [id number] PT STATUS: ADM IN : 1950 PHYSICIAN: CHAO PAT DO ADMIT DATE: 12/11/17/ICU Signed Date of Exam: 12/13/17 CHEST 1 VIEW, AP/PA ONLY INDICATION: Respiratory failure, hypoxia.. TECHNIQUE: Single view chest 3:18 AM. CORRELATION STUDY: 12/12/2017 FINDINGS: Sternotomy changes with multiple fragmented sternal wires. Cardiac enlargement, prominent mediastinum appears increased. Vascular remains prominent perhaps slightly less severe. Right pleural effusion is present. Superimposed edema versus infiltrate is noted. IMPRESSION: 1. Cardiac enlargement and vascular congestion. The severity of congestion may presently be minimally improved. Pleural effusions, scattered areas of atelectasis, infiltrate or edema throughout both lung araiza. Dictated by: Dictated on workstation # [id number] Dict: 12/13/17 0748 Trans: 12/13/17 0834 Interpreted by: TATI ESPAÑA DO Electronically signed by: TATI ESPAÑA DO 12/13/17 0834 A/P: Assessment: Dyspnea likely multifactorial - ac on chronic diastolic CHF, ac exacerbation of COPD, pneumonia and obesity hypoventilation syndrome Obesity (BMI approx 62) with obesity-hypoventilation Acute on chr exacerbation of COPD Pneumonia - management per medical services Ac on chronic diastolic CHF - continue diuretic regimen Persistent a-fib first diagnosed in early February 2016, rate controlled Anemia of undetermined etiology - management by Dr. Pat of medical services OAC with Eliquis - currently being held d/t anemia that is suspected to be due to occult bleeding and that is requiring multiple blood transfusions CAD with a h/o CABG in 2006 at [facility] in [place], [place]. On cardiac cath of 11-11-15: Multivessel coronary disease including multiple more than 90% stenosis of the proximal and mid left anterior descending artery. The mid to distal left anterior descending artery is protected with a widely patent left internal mammary artery graft. The left circumflex artery had 99% ostial/ proximal stenosis to which successful stenting was carried out with Promus Premier 3.5 x 20 mm stent with a reduction of stenosis to 0% residual. The distal left circumflex and its obtuse marginal branches have diffuse moderate to moderately severe disease which were not intervened on. The right coronary artery is dominant and had 90% proximal stenosis to which successful stenting was carried out with Promus Premier 2.75 x 28 mm stent with reduction of stenosis to 0% residual. The distal right coronary artery has multiple stenoses of 50 to 60%, which were not intervened on. Cardiac cath of 11-11-15 showed well preserved global left ventricular systolic function and ejection fraction of 55 to 60%. Elevated left ventricular end- diastolic pressure which was measured at approximately 20 mmHg. No significant mitral regurgitation. ABIs on 01/13/16 at [place], [place]: 1.1 on both sides Echocardiogram of 09/14/17 (Dr Costello): LVEF 55-65%, dilated LA, supotimal study Chronic bilat leg swelling, likely due to venous insuff, no evidence of DVT on on venous duplex of 09/13/17 Hypertension COPD Quit smoking in early DM II Chronic renal insufficiency - chronic likely due in some part to diabetic nephropathy Sleep apnea syndrome - CPAP therapy - managed by Dr. Paris Minimal carotid dz on u/s of November 2015 Electrolyte abnormalities - likely d/t diuretic tx - replace Plan: * Complex management issue * Transfuse to maintain Hgb 10 or greater - H/H 7.5/24 after one unit - give 2 units today * Stop OAC * Investigate anemia - Dr. Joy has been consulted per medical services * iv diuretics * Treat pneumonia * Replace electrolytes * Palliative care consult per medical services Physician Assessment Physician Assessment Shortness of breath modestly improved. No cp or palp. Leg swelling present Lungs: diminished air entry at the bases Cor: irreg Ext: 2-3+ edema A&R * As documented in our note above that I updated at the time of this writing ( italics) and as noted below * Transfuse blood * Continue diuretics * Monitor labs * I spoke with him and answered CV-related questions BENJAMIN ARROYO GERIATRIC NURSING ASSISTANT December 13, 2017 09:19 CATY PENALOZA MD FACP [facility] December 13, 2017 10:23
[2017-12-13] MEDS ORDERED: NS IV 500 ML 500 ML IV SCH (09:25)
--- NOTE | 2017-12-13 09:30 | Progress Note-Hospitalist ---
Subjective HPI/CC On Admission Date Seen by Provider: December 13, 2017 Time Seen by Provider: 09:00 CC: Dyspnea HPI: This is a 66yoWM clinic patient of mine who has had multiple hospital stays in the last 6 months for either congestive heart failure or exacerbation of COPD or pneumonia who presented to the ER with shortness of breath after his brought him on a ride around [facility]. He reports that he has had syncopal episodes at home several per day of which he failed to mention to me when I saw him on Sunday but his has made it clear that he is declining rapidly and became upset during this interview process. I did have Sid with palliative care with me during this visit because the severe medical conditions he has is apparently declining rapidly and I had a long talk with him about the fact that all of his medical problems had up to multiple issues resulting in a major decline in his status. He reports no evidence of any fever but did lose a lot of blood when he had a cut on his left foot and presented to the ER and had sutures but has been having bleeding episodes from different type of minor abrasion since that time and his hemoglobin is 7.0. He is also having abdominal cramping severe in nature that is occurring periodically that was present before gallbladder removal but has since returned at times. I will have Dr. Joy see him likely will need transfusion but volume overload is a concern. He was placed on empiric antibiotics for presumed pneumonia but chest x-ray reveals only atelectasis but will continue the current treatment that he is wheezing so I will add Solu-Medrol and initiate non-DKA insulin infusion protocol. Subjective/Events-last exam Patient requiring 2 more units of blood transfusions due to hemoglobin only rising to 7.5 up from 7.0 after one unit transfused yesterday Feels about the same Palliative care nurse saw patient with me Creatinine stable We'll discontinue vancomycin and maintain meropenem due to ESBL history We'll hold anticoagulation due to the severity of the anemia and significant bleeding Review of Systems Pulmonary: Dyspnea Cardiovascular: Edema Focused Exam Lactate Level 12/12/17 00:07: Lactic Acid Level 1.11 Objective Exam Vital Signs Vital Signs Date Time Temp Pulse Resp B/P (MAP) Pulse Ox O2 Delivery O2 Flow Rate FiO2 12/13/17 19:30 98.5 12/13/17 19:00 88 12/13/17 18:03 97/62 12/13/17 16:02 20 96 Nasal Cannula 5.00 12/12/17 04:00 40 Capillary Refill : Less Than 3 Seconds General Appearance: No Apparent Distress, WD/WN, Chronically ill, Obese Respiratory: Decreased Breath Sounds, Wheezing Cardiovascular: Irregularly Irregular, Tachycardia Extremity: Pedal Edema Neurologic/Psychiatric: Alert, Oriented x3, No Motor/Sensory Deficits, Normal Mood/Affect, information systems security officer II-XII Norm as Tested Skin: Normal Color, Warm/Dry Results/Procedures Lab Laboratory Tests 12/13/17 03:11 Patient resulted labs reviewed. Assessment/Plan Assessment and Plan Assess & Plan/Chief Complaint Assessment: Acute on chronic respiratory failure Exacerbation of COPD requiring IV steroids Diabetes mellitus [id number] with early DKA placed on non-DKA insulin infusion Profound anemia requiring discontinuation of anticoagulation temporarily requiring 3 units packed red blood cells since admission Chronic renal insufficiency Early pneumonia/bacterial bronchitis Congestive heart failure Cardiomyopathy Plan: Complete 3 units of packed red blood cells since admission Lasix Oxygen Nebulizers Hold anticoagulation Prognosis guarded Diagnosis/Problems Diagnosis/Problems (1) Respiratory failure Status: Acute Qualifiers: Chronicity: acute Respiratory failure complication: hypoxia Qualified Codes: J96.01 - Acute respiratory failure with hypoxia (2) Anemia Status: Acute Qualifiers: Anemia type: iron deficiency Iron deficiency anemia type: chronic blood loss Qualified Codes: D50.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) (3) Abdominal pain Status: Chronic Qualifiers: Abdominal location: right upper quadrant Qualified Codes: R10.11 - Right upper quadrant pain (4) COPD (chronic obstructive pulmonary disease) with acute bronchitis Status: Acute (5) Chronic atrial fibrillation Status: Chronic (6) Chronic kidney disease Status: Chronic Qualifiers: Chronic kidney disease stage: stage 3 (moderate) Qualified Codes: N18.3 - Chronic kidney disease, stage 3 (moderate) (7) CAD (coronary artery disease) Status: Chronic Qualifiers: Coronary Disease-Associated Artery/Lesion type: [place] artery [place] vs. transplanted heart: [place] heart Associated angina: without angina Qualified Codes: I25.10 - Atherosclerotic heart disease of [place] coronary artery without angina pectoris (8) IDDM (insulin dependent diabetes mellitus) Status: Chronic (9) Hypothyroidism Status: Chronic (10) Obesity hypoventilation syndrome Status: Chronic (11) JOSE MANUEL (obstructive sleep apnea) Status: Chronic (12) Poor prognosis Status: Chronic Clinical Quality Measures DVT/VTE Risk/Contraindication: Risk Factor Score Per Nursin RFS Level Per Nursing on Admit: 2=Moderate CHAO PAT DO December 13, 2017 09:30
[2017-12-13] MEDS ORDERED: BISACODYL 10 MG SUPP (DULCOLAX) PR NR (09:32)
[2017-12-13] MEDS ORDERED: KCL 20 MEQ TAB (K-DUR) PO NR (09:35)
[2017-12-13] MEDS: LACTULOSE SYRUP 10GM/15ML (ENULOSE) 30ML UDC PO PRN (09:58)
[2017-12-13] MEDS ORDERED: FUROSEMIDE 40 MG/4 ML INJ (LASIX) IVP SCH (10:15)
[2017-12-13] MEDS: inSUlin REGULAR TPN/DRIP ONLY 250 UNITS in NORMAL SALINE 250 ML IV SCH ×2 (11:04→15:12)
--- NOTE | 2017-12-13 15:45 | Progress Note (SOAP) ---
Subjective Date Seen by Provider: December 13, 2017 Time Seen by Provider: 12:00 Subjective/Events-last exam doing better today. no SOB with O2 NC at 5L/min. no fever/chills. bilat leg compression stockings on. Hb increase 0.5 after one unit. no clinical bleeding. scheduled for slow infusion 2 more PRBC. Focused Exam Lactate Level 12/12/17 00:07: Lactic Acid Level 1.11 Objective Exam Vital Signs Date Time Temp Pulse Resp B/P (MAP) Pulse Ox O2 Delivery O2 Flow Rate FiO2 12/13/17 14:21 92 Nasal Cannula 3.00 12/13/17 13:01 97.8 81 20 149/99 91 Nasal Cannula 5.00 12/13/17 13:00 86 12/13/17 12:00 98.0 93 22 125/73 (90) Nasal Cannula 5.00 12/13/17 11:15 NIV CPAP 3.00 12/13/17 11:03 97.6 92 20 116/88 97 Nasal Cannula 5.00 12/13/17 10:48 97.2 20 138/81 98 Nasal Cannula 5.00 12/13/17 10:38 93 Nasal Cannula 3.00 12/13/17 09:00 High Flow N/C 5.00 12/13/17 08:00 NIV CPAP 3.00 12/13/17 08:00 97.6 87 20 149/89 (109) 96 Nasal Cannula 5.00 12/13/17 07:01 95 Nasal Cannula 3.00 12/13/17 07:00 88 12/13/17 06:00 66 22 121/59 (79) 96 NIV Bilevel 3.00 12/13/17 05:00 81 19 144/92 (109) NIV Bilevel 3.00 12/13/17 04:00 70 21 127/72 (90) 93 NIV Bilevel 3.00 12/13/17 04:00 98.0 12/13/17 04:00 NIV CPAP 3.00 12/13/17 03:07 95 Nasal Cannula 3.00 12/13/17 03:00 67 17 138/72 (94) 95 NIV Bilevel 3.00 12/13/17 02:00 77 19 131/64 (86) 96 NIV Bilevel 3.00 12/13/17 01:00 95 12/13/17 01:00 95 23 143/91 (108) 100 NIV Bilevel 3.00 12/13/17 00:00 81 23 112/57 (75) 94 NIV Bilevel 3.00 12/13/17 00:00 NIV CPAP 3.00 12/13/17 00:00 97.8 12/12/17 23:00 90 33 109/66 (80) 95 NIV Bilevel 3.00 12/12/17 22:43 92 Nasal Cannula 8.00 12/12/17 22:20 90 28 93 NIV Bilevel 3.00 12/12/17 22:00 87 24 132/74 (93) 95 High Flow N/C 8.00 12/12/17 21:00 High Flow N/C 8.00 12/12/17 21:00 93 16 155/86 (109) 98 High Flow N/C 8.00 12/12/17 20:00 High Flow N/C 8.00 12/12/17 20:00 90 20 107/82 (90) 90 High Flow N/C 8.00 12/12/17 20:00 98.1 12/12/17 19:30 92 Nasal Cannula 10.00 12/12/17 19:00 91 23 121/68 (85) 90 High Flow N/C 8.00 12/12/17 19:00 91 12/12/17 18:04 99.2 101 24 140/99 93 High Flow N/C 8.00 12/12/17 17:00 82 19 165/90 (115) 100 High Flow N/C 8.00 12/12/17 16:45 99.0 12/12/17 16:00 High Flow N/C 8.00 12/12/17 16:00 93 17 97 High Flow N/C 8.00 I & O 12/13/17 07:00 Intake Total 2480 ml Output Total 4575 ml Balance -2095 ml Capillary Refill : Less Than 3 Seconds General Appearance: No Apparent Distress HEENT: PERRL/EOMI Neck: Full Range of Motion Respiratory: Chest Non Tender, Rales, Rhonci, Wheezing Cardiovascular: Regular Rate, Rhythm Gastrointestinal: normal bowel sounds, non tender, soft Extremity: Normal Capillary Refill Neurologic/Psychiatric: Alert, Oriented x3 Skin: Normal Color Lymphatic: No Adenopathy Results Lab Laboratory Tests 12/12/17 16:03: Glucometer 379H 5/2/18 17:08: Glucometer 449*H 12/12/17 17:59: Glucometer 326H 12/12/17 18:36: Glucometer 379H 12/12/17 19:25: Glucometer 412*H 12/12/17 21:13: Glucometer 183H 12/12/17 21:50: Glucometer 139H 12/12/17 22:49: Glucometer 136H 12/12/17 23:44: Glucometer 134H 12/13/17 00:49: Glucometer 149H 12/13/17 01:47: Glucometer 152H 12/13/17 02:54: Glucometer 160H 12/13/17 03:11: White Blood Count 14.5H, Red Blood Count 2.92L, Hemoglobin 7.5L, Hematocrit 24L , Mean Corpuscular Volume 81, Mean Corpuscular Hemoglobin 26, Mean Corpuscular Hemoglobin Concent 32, Red Cell Distribution Width 15.3H, Platelet Count 329, Mean Platelet Volume 9.8, Neutrophils (%) (Auto) 93H, Lymphocytes (%) (Auto) 5L , Monocytes (%) (Auto) 2, Eosinophils (%) (Auto) 0, Basophils (%) (Auto) 0, Neutrophils # (Auto) 13.5H, Lymphocytes # (Auto) 0.8L, Monocytes # (Auto) 0.2, Eosinophils # (Auto) 0.0, Basophils # (Auto) 0.0, Sodium Level 133L, Potassium Level 3.2L, Chloride Level 95L, Carbon Dioxide Level 25, Anion Gap 13, Blood Urea Nitrogen 29H, Creatinine 1.41H, Estimat Glomerular Filtration Rate 50, BUN/ Creatinine Ratio 21, Glucose Level 136H, Calcium Level 9.1, Phosphorus Level 3.2 , Magnesium Level 1.8, Total Bilirubin 0.9, Aspartate Amino Transf (AST/SGOT) 26 , Alanine Aminotransferase (ALT/SGPT) 15, Alkaline Phosphatase 75, Total Protein 6.9, Albumin 3.6 12/13/17 04:07: Glucometer 154H 12/13/17 05:16: Glucometer 151H 12/13/17 06:10: Glucometer 157H 12/13/17 07:37: Glucometer 141H 12/13/17 08:30: Glucometer 161H 12/13/17 09:33: Glucometer 173H 12/13/17 10:38: Glucometer 182H 12/13/17 11:39: Glucometer 215H 12/13/17 12:56: Glucometer 302H 12/13/17 12:58: Lab Scanned Report Transfusion Reaction Form 12/13/17 13:58: Glucometer 269H 12/13/17 14:58: Glucometer 245H Microbiology 12/12/17 Blood Culture - Preliminary, Resulted No growth Assessment/Plan Assessment/Plan Assess & Plan/Chief Complaint exacerbation COPD with pneumonia and anemia. no clinical bleeding. Hb stable after first unit and patient clinically improving. scheduled for 2 units slow infusion PRBC. continue conservative management. Clinical Quality Measures DVT/VTE Risk/Contraindication: Risk Factor Score Per Nursin RFS Level Per Nursing on Admit: 2=Moderate HAWK GREENWOOD MD December 13, 2017 3:45 pm
[2017-12-13] MEDS: ENOXAPARIN 40 MG/0.4 ML (LOVENOX) SYR SC SCH (17:59)
[2017-12-13] MEDS: TAMSULOSIN 0.4 MG (FLOMAX) CAP PO SCH (18:00)
[2017-12-13] MEDS: FINASTERIDE (PROSCAR) 5 MG TAB PO SCH (20:35)
[2017-12-13] MEDS: MONTELUKAST 10 MG (SINGULAIR) TAB PO SCH (20:35)
[2017-12-13] MEDS: PANTOPRAZOLE 20 MG TABLET (PROTONIX) PO SCH (20:35)
[2017-12-13] MEDS: inSUlin DETERMIR 1 UNIT/0.01 ML (LEVEMIR) CHARGE PER UNIT SQ SCH (20:35)
[2017-12-13] MEDS: FLUTICASONE NASAL SPRAY (FLONASE) 16 GM BTL NS SCH ×2 (20:36→21:00)
[2017-12-13] MEDS ORDERED: NS (IVPB) 0 ML ONE (22:34)
[2017-12-13] MEDS ORDERED: inSUlin (REGULAR) HUMAN 1 UNIT/0.01 ML (CHARGE PER UNIT) ONE ×3 (22:35→23:30)
[2017-12-13] MEDS ORDERED: NORMAL SALINE 250 ML ONE (22:37)
[2017-12-14] VITALS (10 sets, daily range): BP systolic 121–154; BP diastolic 66–94
[2017-12-14] MEDS: MEROPENEM 500 MG in NS (IVPB) 100 ML IV SCH ×5 (00:02→23:33)
[2017-12-14] MEDS: methylPREDNISolone 125 MG (Solu-MEDROL) VIAL IV SCH ×2 (00:05→06:12)
[2017-12-14] MEDS: NS IV 1000 ML 1,000 ML IV SCH (00:18)
[2017-12-14] MEDS: RT-ALBUTEROL/IPRATROPIUM 3 ML (DUONEB) VIAL INH SCH ×5 (03:30→21:46)
[2017-12-14 03:39] LABS: BASOPHILS % (AUTO) 0 % (0-10); EOSINOPHILS % (AUTO) 0 % (0-10); HEMATOCRIT 28 % (40-54); HEMOGLOBIN 8.8 G/DL (13.3-17.7); LYMPHOCYTES # (AUTO) 0.8 X 10^3 (1.0-4.0); LYMPHOCYTES % (AUTO) 3 % (12-44); MEAN CORPUSCULAR HEMOGLOBIN 26 PG (25-34); MEAN CORPUSCULAR HGB CONC 32 G/DL (32-36); MEAN CORPUSCULAR VOLUME 81 FL (80-99); MEAN PLATELET VOLUME 9.7 FL (7.4-10.4); MONOCYTES # (AUTO) 1.2 X 10^3 (0.0-1.0); MONOCYTES % (AUTO) 5 % (0-12); NEUTROPHILS # (AUTO) 21.6 X 10^3 (1.8-7.8); NEUTROPHILS % (AUTO) 92 % (42-75); PLATELET COUNT 353 10^3/uL (130-400); RED BLOOD COUNT 3.41 10^6/uL (4.35-5.85); WHITE BLOOD COUNT 23.5 10^3/uL (4.3-11.0)
[2017-12-14 03:59] LABS: CALCIUM 9.2 MG/DL (8.5-10.1); CREATININE SERUM 1.48 MG/DL (0.60-1.30); MAGNESIUM 1.9 MG/DL (1.8-2.4); PHOSPHORUS 4.2 MG/DL (2.3-4.7); POTASSIUM 2.7 MMOL/L (3.6-5.0)
[2017-12-14] MEDS: FUROSEMIDE 40 MG/4 ML INJ (LASIX) IVP SCH ×2 (06:12→16:42)
[2017-12-14] MEDS: CATHETER FLUSH 10 ML SYR IV SCH ×3 (06:12→21:44)
[2017-12-14] MEDS: TRIM/SULFAMETH 160/800 (SEPTRA DS) TAB PO SCH (06:13)
[2017-12-14] MEDS: KCL 10 MEQ TAB (MICRO K) PO SCH ×2 (06:13→16:40)
[2017-12-14] MEDS: MAGNESIUM 1 GM/100 ML IVPB 100 ML IV SCH (06:13)
[2017-12-14] MEDS: LEVOTHYROXINE 25 MCG (LEVOTHROID) TAB PO SCH (06:13)
[2017-12-14] MEDS: POTASSIUM CL 10MEQ/50ML IVPB 50 ML IV SCH (06:25)
[2017-12-14] MEDS: KCL 20 MEQ TAB (K-DUR) PO SCH (06:25)
[2017-12-14] MEDS: RT-ADVAIR HFA 115/21 MCG PER PUFF IH SCH ×2 (06:28→19:01)
[2017-12-14] MEDS: LORATADINE (CLARITIN) 10 MG TAB PO SCH (07:53)
[2017-12-14] MEDS: PSEUDOEPHEDRINE HCL 30 MG (SUDAFED) TAB PO SCH (07:53)
[2017-12-14] MEDS: SPIRONOLACTONE 25 MG (ALDACTONE) TAB PO SCH (07:55)
[2017-12-14] MEDS: DILTIAZEM 240 MG (CARDIZEM CD) CAP PO SCH (07:56)
[2017-12-14] MEDS: MELOXICAM 7.5 MG (MOBIC) TABLET PO SCH (07:56)
[2017-12-14] MEDS: ROSUVASTATIN 5 MG (CRESTOR) TABLET PO SCH (07:57)
[2017-12-14] MEDS: meTOproloL SUCCINATE 50 MG (TOPROL XL) TAB PO SCH (07:57)
[2017-12-14] MEDS: METOLAZONE 5 MG (ZAROXOLYN) TAB PO SCH (07:57)
[2017-12-14] MEDS ORDERED: KCL 20 MEQ TAB (K-DUR) PO NR ×4 (08:00→14:00)
--- NOTE | 2017-12-14 08:28 | Diagnostic Imaging Report ---
INDICATION: Hypoxia and pneumonia. Comparison is made with prior examination 12/13/2017. FINDINGS: There is cardiomegaly. There is some minimal venous congestion. There is no pleural effusion or pneumothorax. There has been previous median sternotomy. IMPRESSION: Cardiomegaly and some mild central pulmonary venous congestion. Dictated by: Dictated on workstation # [id number]
--- NOTE | 2017-12-14 08:45 | Progress Note-Cardiology ---
Cardiology SOAP Progress Note Subjective: He feels his breathing is better today. Feels LE swelling is worse today. No c /o CP or palpitations. No c/o syncope or near syncope. Objective: I&O/Vital Signs 12/14/17 12/14/17 12/14/17 12/14/17 03:30 04:00 04:00 06:29 Temp 96.8 Pulse Ox 94 94 O2 Delivery NIV CPAP NIV CPAP Nasal Cannula O2 Flow Rate 3.00 3.00 3.00 12/14/17 12/14/17 12/14/17 12/14/17 07:00 08:00 08:00 09:00 Temp 97.6 Pulse 83 85 Resp 20 B/P (MAP) 154/90 (111) Pulse Ox 96 O2 Delivery Nasal Cannula NIV CPAP NIV CPAP O2 Flow Rate 5.00 5.00 5.00 12/14/17 12/14/17 12/14/17 12/14/17 09:54 11:56 12:00 12:00 Temp 98.7 98.6 Pulse 85 89 Resp 22 24 B/P (MAP) 133/66 132/75 (94) Pulse Ox 94 96 93 O2 Delivery Nasal Cannula Nasal Cannula NIV CPAP Nasal Cannula O2 Flow Rate 3.00 5.00 5.00 5.00 12/14/17 12/14/17 12/14/17 12/14/17 12:11 14:29 14:52 15:06 Temp 98.5 98.6 98.6 97.2 Pulse 83 82 104 83 Resp 18 20 24 20 B/P (MAP) 121/77 141/75 141/75 145/83 Pulse Ox 98 93 94 O2 Delivery Nasal Cannula Nasal Cannula Nasal Cannula O2 Flow Rate 5.00 5.00 5.00 12/14/17 00:00 Intake Total 1637.5 ml Output Total 2650 ml Balance -1012.5 ml Weight (Pounds): 400 Weight (Ounces): 0.0 Weight (Calculated Kilograms): [phone] Constitutional: AAO x 3, well-developed Respiratory: other (good air entry) Cardiovascular: irregularly irregular, S1 and S2, systolic murmur Gastrointestional: No tender; soft Extremities: other (bilat pitting 4 + and non-pitting LE edema) Neurologic/Psychiatric: oriented x 3 Skin: ecchymosis (Left leg from the groin area, inner thigh to knee; dressing to left foot ) Results/Procedures: Labs Laboratory Tests 12/13/17 16:04: Glucometer 207H 12/13/17 17:07: Glucometer 166H 12/13/17 18:22: Glucometer 144H 12/13/17 18:47: Glucometer 134H 12/13/17 20:09: Glucometer 112H 12/13/17 21:00: Glucometer 80 12/13/17 21:55: Glucometer 98 12/13/17 22:59: Glucometer 152H 12/13/17 23:59: Glucometer 141H 12/14/17 00:59: Glucometer 121H 12/14/17 02:04: Glucometer 66L 12/14/17 02:39: Glucometer 90 12/14/17 03:25: White Blood Count 23.5H, Red Blood Count 3.41L, Hemoglobin 8.8L, Hematocrit 28L , Mean Corpuscular Volume 81, Mean Corpuscular Hemoglobin 26, Mean Corpuscular Hemoglobin Concent 32, Red Cell Distribution Width 16.0H, Platelet Count 353, Mean Platelet Volume 9.7, Neutrophils (%) (Auto) 92H, Lymphocytes (%) (Auto) 3L , Monocytes (%) (Auto) 5, Eosinophils (%) (Auto) 0, Basophils (%) (Auto) 0, Neutrophils # (Auto) 21.6H, Lymphocytes # (Auto) 0.8L, Monocytes # (Auto) 1.2H, Eosinophils # (Auto) 0.0, Basophils # (Auto) 0.0, Sodium Level 135, Potassium Level 2.7L, Chloride Level 96L, Carbon Dioxide Level 23, Anion Gap 16H, Blood Urea Nitrogen 42H, Creatinine 1.48H, Estimat Glomerular Filtration Rate 47, BUN/ Creatinine Ratio 28, Glucose Level 63L, Calcium Level 9.2, Phosphorus Level 4.2 , Magnesium Level 1.9 12/14/17 03:39: Glucometer 73 12/14/17 04:36: Glucometer 64L 12/14/17 05:03: Glucometer 92 12/14/17 06:10: Glucometer 88 12/14/17 07:24: Glucometer 104 12/14/17 08:02: Glucometer 135H 12/14/17 09:08: Glucometer 125H 12/14/17 10:08: Glucometer 136H 12/14/17 10:46: Glucometer 171H Microbiology 12/12/17 Blood Culture - Preliminary, Resulted No growth Laboratory Tests 12/13/17 03:11 12/14/17 03:25 Procedures NAME: JENNIFER GARCIA REC#: [id number] PT STATUS: ADM IN : 1950 PHYSICIAN: CHAO PAT DO ADMIT DATE: 12/11/17/ICU Draft Date of Exam:12/14/17 CHEST 1 VIEW, AP/PA ONLY INDICATION: Hypoxia and pneumonia. Comparison is made with prior examination 12/13/2017. FINDINGS: There is cardiomegaly. There is some minimal venous congestion. There is no pleural effusion or pneumothorax. There has been previous median sternotomy. IMPRESSION: Cardiomegaly and some mild central pulmonary venous congestion. Dictated on workstation # [id number] Dict: 12/14/17 0736 Trans: 12/14/17 0828 [id number] Interpreted by: ANDREW GRAMAJO MD Electronically signed by: A/P: Assessment: Dyspnea likely multifactorial - ac on chronic diastolic CHF, ac exacerbation of COPD, pneumonia and obesity hypoventilation syndrome Obesity (BMI approx 62) with obesity-hypoventilation Acute on chr exacerbation of COPD due to pneumonia - management by Dr Pat Ac on chronic diastolic CHF - continue diuretic regimen Persistent a-fib first diagnosed in early February 2016, rate controlled Anemia of undetermined etiology; ongoing occult bleed suspected - management by Dr. Pat of medical services OAC with Eliquis - currently being held d/t anemia that is suspected to be due to occult bleeding and that is requiring multiple blood transfusions CAD with a h/o CABG in 2006 at [facility] in [place], [place]. On cardiac cath of 11-11-15: Multivessel coronary disease including multiple more than 90% stenosis of the proximal and mid left anterior descending artery. The mid to distal left anterior descending artery is protected with a widely patent left internal mammary artery graft. The left circumflex artery had 99% ostial/ proximal stenosis to which successful stenting was carried out with Promus Premier 3.5 x 20 mm stent with a reduction of stenosis to 0% residual. The distal left circumflex and its obtuse marginal branches have diffuse moderate to moderately severe disease which were not intervened on. The right coronary artery is dominant and had 90% proximal stenosis to which successful stenting was carried out with Promus Premier 2.75 x 28 mm stent with reduction of stenosis to 0% residual. The distal right coronary artery has multiple stenoses of 50 to 60%, which were not intervened on. Cardiac cath of 11-11-15 showed well preserved global left ventricular systolic function and ejection fraction of 55 to 60%. Elevated left ventricular end- diastolic pressure which was measured at approximately 20 mmHg. No significant mitral regurgitation. ABIs on 01/13/16 at [place], [place]: 1.1 on both sides Echocardiogram of 09/14/17 (Dr Costello): LVEF 55-65%, dilated LA, supotimal study Chronic bilat leg swelling, likely due to venous insuff, no evidence of DVT on on venous duplex of 09/13/17 Hypertension COPD Quit smoking in early DM II Chronic renal insufficiency - chronic likely due in some part to diabetic nephropathy Sleep apnea syndrome - CPAP therapy - managed by Dr. Paris Minimal carotid dz on u/s of November 2015 Electrolyte abnormalities - likely d/t diuretic tx - replace Plan: * Complex management issue * Transfuse to maintain Hgb 10 or greater - H/H 8.04/09 after a total of 3 units have been given * Continue to hold OAC * Stop Plavix since last stenting was greater than 2 years ago * Start low dose ASA d/t CAD * Continue enoxaparin for DVT prophylaxis * Investigate anemia - Dr. Joy has been consulted per medical services * Continue IV diuretics - give additional lasix today along with increased metolazone * Monitor lab closely and replace electrolytes as indicated * Treat pneumonia * Replace electrolytes * Palliative care consult per medical services Physician Assessment Physician Assessment Shortness of breath modestly improved. No cp or palp. Leg swelling present Lungs: diminished air entry at the bases Cor: irreg Ext: 2-3+ edema A&R * As documented in our note above that I updated at the time of this writing ( italics) and as noted below * Transfuse more blood * Hold OAC and antiplatelet therapy because of likely ongoing occult bleeding requiring multiple transfusions * Bolster diuretics * Replenish lytes * Monitor labs * I spoke with him and answered CV-related questions * Dr Costello covering over the weekend BENJAMIN ARROYO PART MAKER December 14, 2017 08:44 CATY PENALOZA MD FACP FAC CCDS December 14, 2017 15:24
[2017-12-14] MEDS: UMECLIDINIUM BROMIDE (INCRUSE ELLIPTA) 7'S IH SCH (09:53)
[2017-12-14] MEDS ORDERED: MAGNESIUM 1 GM/100 ML IVPB 100 ML IV ONE ×2 (10:00)
[2017-12-14] MEDS ORDERED: METOLAZONE 5 MG (ZAROXOLYN) TAB PO NR (10:00)
[2017-12-14] MEDS ORDERED: FUROSEMIDE 40 MG/4 ML INJ (LASIX) IVP NR ×2 (10:00)
--- NOTE | 2017-12-14 10:35 | Progress Note-Hospitalist ---
Subjective HPI/CC On Admission Date Seen by Provider: December 14, 2017 Time Seen by Provider: 09:30 CC: Dyspnea HPI: This is a 66yoWM clinic patient of mine who has had multiple hospital stays in the last 6 months for either congestive heart failure or exacerbation of COPD or pneumonia who presented to the ER with shortness of breath after his brought him on a ride around [facility]. He reports that he has had syncopal episodes at home several per day of which he failed to mention to me when I saw him on Sunday but his has made it clear that he is declining rapidly and became upset during this interview process. I did have Sid with palliative care with me during this visit because the severe medical conditions he has is apparently declining rapidly and I had a long talk with him about the fact that all of his medical problems had up to multiple issues resulting in a major decline in his status. He reports no evidence of any fever but did lose a lot of blood when he had a cut on his left foot and presented to the ER and had sutures but has been having bleeding episodes from different type of minor abrasion since that time and his hemoglobin is 7.0. He is also having abdominal cramping severe in nature that is occurring periodically that was present before gallbladder removal but has since returned at times. I will have Dr. Joy see him likely will need transfusion but volume overload is a concern. He was placed on empiric antibiotics for presumed pneumonia but chest x-ray reveals only atelectasis but will continue the current treatment that he is wheezing so I will add Solu-Medrol and initiate non-DKA insulin infusion protocol. 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 Cadet No bowel movement yet after multiple meds so will initiate fleets and soapsuds enema Laboratory Tests 12/14/17 03:25 Review of Systems Pulmonary: Dyspnea Gastrointestinal: Constipation Focused Exam Lactate Level 12/12/17 00:07: Lactic Acid Level 1.11 Objective Exam Vital Signs Vital Signs Date Time Temp Pulse Resp B/P (MAP) Pulse Ox O2 Delivery O2 Flow Rate FiO2 12/14/17 09:54 94 Nasal Cannula 3.00 12/14/17 07:00 83 12/14/17 04:00 96.8 12/13/17 18:03 97/62 12/13/17 16:02 20 12/12/17 04:00 40 Capillary Refill : Less Than 3 Seconds General Appearance: No Apparent Distress, WD/WN, Chronically ill, Obese Respiratory: Wheezing Cardiovascular: Irregularly Irregular, Tachycardia Extremity: Pedal Edema (2+) Neurologic/Psychiatric: Alert, Oriented x3, No Motor/Sensory Deficits, Normal Mood/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 Assessment/Plan Assessment and Plan Assess & Plan/Chief Complaint Assessment: Acute on chronic respiratory failure Exacerbation of COPD requiring IV steroids changing to PO steroids today 12/14/17 Diabetes mellitus [id number] with early DKA placed on non-DKA insulin infusion now placing on SSI and ac/hs accuchecks Profound anemia requiring discontinuation of anticoagulation temporarily requiring 3 units packed red blood cells since admission Chronic renal insufficiency Early pneumonia/bacterial bronchitis on Rhonda due to ESBL Congestive heart failure Cardiomyopathy Plan: Complete 2 more units of packed red blood cells to equal 5 units since admission Lasix Oxygen Nebulizers Hold anticoagulation Prognosis guarded Diagnosis/Problems Diagnosis/Problems (1) Respiratory failure Status: Acute Qualifiers: Chronicity: acute Respiratory failure complication: hypoxia Qualified Codes: J96.01 - Acute respiratory failure with hypoxia (2) Anemia Status: Acute Qualifiers: Anemia type: iron deficiency Iron deficiency anemia type: chronic blood loss Qualified Codes: D50.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) (3) Abdominal pain Status: Chronic Qualifiers: Abdominal location: right upper quadrant Qualified Codes: R10.11 - Right upper quadrant pain (4) COPD (chronic obstructive pulmonary disease) with acute bronchitis Status: Acute (5) Chronic atrial fibrillation Status: Chronic (6) Chronic kidney disease Status: Chronic Qualifiers: Chronic kidney disease stage: stage 3 (moderate) Qualified Codes: N18.3 - Chronic kidney disease, stage 3 (moderate) (7) CAD (coronary artery disease) Status: Chronic Qualifiers: Coronary Disease-Associated Artery/Lesion type: [place] artery [place] vs. transplanted heart: [place] heart Associated angina: without angina Qualified Codes: I25.10 - Atherosclerotic heart disease of [place] coronary artery without angina pectoris (8) IDDM (insulin dependent diabetes mellitus) Status: Chronic (9) Hypothyroidism Status: Chronic (10) Obesity hypoventilation syndrome Status: Chronic (11) JOSE MANUEL (obstructive sleep apnea) Status: Chronic (12) Poor prognosis Status: Chronic Clinical Quality Measures DVT/VTE Risk/Contraindication: Risk Factor Score Per Nursin RFS Level Per Nursing on Admit: 2=Moderate CHAO PAT DO December 14, 2017 10:35
[2017-12-14] MEDS ORDERED: FLEET ENEMA ADULT 1 EA BTL PR NR (10:45)
[2017-12-14] MEDS ORDERED: FLEET ENEMA ADULT 1 EA BTL PR PRN (10:45)
[2017-12-14] MEDS: inSUlin ASPART (NovoLOG) 1 UNIT/0.01 ML (CHARGE PER UNIT) SC SCH ×3 (11:00→21:43)
--- NOTE | 2017-12-14 13:02 | Progress Note (SOAP) ---
Subjective Date Seen by Provider: December 14, 2017 Time Seen by Provider: 12:00 Subjective/Events-last exam doing better. clinically improving. Hb 8.0 after 3 units PRBC but states most of 1st unit did not infuse due to dislodgement catheter. no clinical signs of bleeding. Focused Exam Lactate Level 12/12/17 00:07: Lactic Acid Level 1.11 Objective Exam Vital Signs Date Time Temp Pulse Resp B/P (MAP) Pulse Ox O2 Delivery O2 Flow Rate FiO2 12/14/17 12:11 98.5 83 18 121/77 98 Nasal Cannula 5.00 12/14/17 12:00 NIV CPAP 5.00 12/14/17 11:56 98.7 85 22 133/66 96 Nasal Cannula 5.00 12/14/17 09:54 94 Nasal Cannula 3.00 12/14/17 09:00 NIV CPAP 5.00 12/14/17 08:00 NIV CPAP 5.00 12/14/17 07:00 83 12/14/17 06:29 94 Nasal Cannula 3.00 12/14/17 04:00 96.8 12/14/17 04:00 NIV CPAP 3.00 12/14/17 03:30 94 NIV CPAP 3.00 12/14/17 01:00 77 12/14/17 00:20 NIV CPAP 3.00 12/14/17 00:00 98.1 12/14/17 00:00 NIV CPAP 3.00 12/13/17 22:50 92 NIV CPAP 3.00 12/13/17 22:45 NIV CPAP 3.00 12/13/17 21:30 High Flow N/C 5.00 12/13/17 20:15 Nasal Cannula 5.00 12/13/17 19:30 98.5 12/13/17 19:03 95 Nasal Cannula 3.00 12/13/17 19:00 88 12/13/17 18:03 98.5 83 97/62 12/13/17 16:02 97.6 77 20 127/80 96 Nasal Cannula 5.00 12/13/17 16:00 NIV CPAP 5.00 12/13/17 16:00 98.1 86 20 127/80 (96) 95 Nasal Cannula 5.00 12/13/17 15:40 97.8 86 22 147/91 97 Nasal Cannula 5.00 12/13/17 14:21 92 Nasal Cannula 3.00 12/13/17 13:01 97.8 81 20 149/99 91 Nasal Cannula 5.00 12/13/17 13:00 86 I & O 12/14/17 07:00 Intake Total 3397.5 ml Output Total 3800 ml Balance -402.5 ml Capillary Refill : Less Than 3 Seconds General Appearance: No Apparent Distress HEENT: PERRL/EOMI Neck: Full Range of Motion Respiratory: Decreased Breath Sounds, Rhonci, Wheezing Cardiovascular: Regular Rate, Rhythm Gastrointestinal: normal bowel sounds, non tender, soft Extremity: Normal Capillary Refill Neurologic/Psychiatric: Alert, Oriented x3 Skin: Normal Color Lymphatic: No Adenopathy Results Lab Laboratory Tests 12/13/17 13:58: Glucometer 269H 12/13/17 14:58: Glucometer 245H 12/13/17 16:04: Glucometer 207H 12/13/17 17:07: Glucometer 166H 12/13/17 18:22: Glucometer 144H 12/13/17 18:47: Glucometer 134H 12/13/17 20:09: Glucometer 112H 12/13/17 21:00: Glucometer 80 12/13/17 21:55: Glucometer 98 12/13/17 22:59: Glucometer 152H 12/13/17 23:59: Glucometer 141H 12/14/17 00:59: Glucometer 121H 12/14/17 02:04: Glucometer 66L 12/14/17 02:39: Glucometer 90 12/14/17 03:25: White Blood Count 23.5H, Red Blood Count 3.41L, Hemoglobin 8.8L, Hematocrit 28L , Mean Corpuscular Volume 81, Mean Corpuscular Hemoglobin 26, Mean Corpuscular Hemoglobin Concent 32, Red Cell Distribution Width 16.0H, Platelet Count 353, Mean Platelet Volume 9.7, Neutrophils (%) (Auto) 92H, Lymphocytes (%) (Auto) 3L , Monocytes (%) (Auto) 5, Eosinophils (%) (Auto) 0, Basophils (%) (Auto) 0, Neutrophils # (Auto) 21.6H, Lymphocytes # (Auto) 0.8L, Monocytes # (Auto) 1.2H, Eosinophils # (Auto) 0.0, Basophils # (Auto) 0.0, Sodium Level 135, Potassium Level 2.7L, Chloride Level 96L, Carbon Dioxide Level 23, Anion Gap 16H, Blood Urea Nitrogen 42H, Creatinine 1.48H, Estimat Glomerular Filtration Rate 47, BUN/ Creatinine Ratio 28, Glucose Level 63L, Calcium Level 9.2, Phosphorus Level 4.2 , Magnesium Level 1.9 12/14/17 03:39: Glucometer 73 12/14/17 04:36: Glucometer 64L 12/14/17 05:03: Glucometer 92 12/14/17 06:10: Glucometer 88 12/14/17 07:24: Glucometer 104 12/14/17 08:02: Glucometer 135H 12/14/17 09:08: Glucometer 125H 12/14/17 10:08: Glucometer 136H 12/14/17 10:46: Glucometer 171H Microbiology 12/12/17 Blood Culture - Preliminary, Resulted No growth Assessment/Plan Assessment/Plan Assess & Plan/Chief Complaint exacerbation COPD with pneumonia and anemia. no clinical bleeding. Hb stable at 8 and clinically improving. scheduled for 2 more units over weekend. continue conservative management. Clinical Quality Measures DVT/VTE Risk/Contraindication: Risk Factor Score Per Nursin RFS Level Per Nursing on Admit: 2=Moderate HAWK GREENWOOD MD December 14, 2017 1:02 pm
[2017-12-14] MEDS ORDERED: FUROSEMIDE 40 MG/4 ML INJ (LASIX) IVP ONE (14:45)
[2017-12-14] MEDS: ENOXAPARIN 40 MG/0.4 ML (LOVENOX) SYR SC SCH (16:39)
[2017-12-14] MEDS: predniSONE 20 MG TAB PO SCH (16:41)
[2017-12-14] MEDS: TAMSULOSIN 0.4 MG (FLOMAX) CAP PO SCH (16:58)
[2017-12-14] MEDS: inSUlin REGULAR TPN/DRIP ONLY 250 UNITS in NORMAL SALINE 250 ML IV SCH (18:05)
[2017-12-14 19:23] LABS: HEMOGLOBIN 10.4 G/DL (13.3-17.7)
[2017-12-14] MEDS: PANTOPRAZOLE 20 MG TABLET (PROTONIX) PO SCH (20:13)
[2017-12-14] MEDS: MONTELUKAST 10 MG (SINGULAIR) TAB PO SCH (20:13)
[2017-12-14] MEDS: FLUTICASONE NASAL SPRAY (FLONASE) 16 GM BTL NS SCH (20:13)
[2017-12-14] MEDS: FINASTERIDE (PROSCAR) 5 MG TAB PO SCH (20:13)
[2017-12-14] MEDS: inSUlin DETERMIR 1 UNIT/0.01 ML (LEVEMIR) CHARGE PER UNIT SQ SCH (20:13)
[2017-12-14] MEDS: ADVAIR HFA 115/21 MCG INHALER 8 GM IH SCH (21:50)
[2017-12-15] MEDS: RT-ALBUTEROL/IPRATROPIUM 3 ML (DUONEB) VIAL INH SCH ×6 (01:53→21:24)
[2017-12-15 03:47] LABS: BASOPHILS % (AUTO) 0 % (0-10); EOSINOPHILS % (AUTO) 0 % (0-10); HEMATOCRIT 31 % (40-54); HEMOGLOBIN 10.1 G/DL (13.3-17.7); LYMPHOCYTES # (AUTO) 0.5 X 10^3 (1.0-4.0); LYMPHOCYTES % (AUTO) 2 % (12-44); MEAN CORPUSCULAR HEMOGLOBIN 26 PG (25-34); MEAN CORPUSCULAR HGB CONC 33 G/DL (32-36); MEAN CORPUSCULAR VOLUME 81 FL (80-99); MEAN PLATELET VOLUME 9.6 FL (7.4-10.4); MONOCYTES # (AUTO) 1.4 X 10^3 (0.0-1.0); MONOCYTES % (AUTO) 7 % (0-12); NEUTROPHILS # (AUTO) 18.2 X 10^3 (1.8-7.8); NEUTROPHILS % (AUTO) 91 % (42-75); PLATELET COUNT 371 10^3/uL (130-400); RED BLOOD COUNT 3.86 10^6/uL (4.35-5.85); RED CELL DISTRIBUTION WIDTH 15.7 % (10.0-14.5); WHITE BLOOD COUNT 20.1 10^3/uL (4.3-11.0)
[2017-12-15 04:00] VITALS: BP 163/85
[2017-12-15 04:07] LABS: CREATININE SERUM 1.79 MG/DL (0.60-1.30); MAGNESIUM 2.2 MG/DL (1.8-2.4); PHOSPHORUS 4.9 MG/DL (2.3-4.7)
[2017-12-15] MEDS: KCL 20 MEQ TAB (K-DUR) PO SCH (05:31)
[2017-12-15] MEDS: inSUlin ASPART (NovoLOG) 1 UNIT/0.01 ML (CHARGE PER UNIT) SC SCH ×4 (05:31→22:05)
[2017-12-15] MEDS: MAGNESIUM 1 GM/100 ML IVPB 100 ML IV SCH (05:31)
[2017-12-15] MEDS: POTASSIUM CL 10MEQ/50ML IVPB 50 ML IV SCH (05:31)
[2017-12-15] MEDS: KCL 10 MEQ TAB (MICRO K) PO SCH ×2 (06:29→16:20)
[2017-12-15] MEDS: predniSONE 20 MG TAB PO SCH ×2 (06:29→16:20)
[2017-12-15] MEDS: CATHETER FLUSH 10 ML SYR IV SCH ×3 (06:29→22:07)
[2017-12-15] MEDS: MEROPENEM 500 MG in NS (IVPB) 100 ML IV SCH ×3 (06:29→17:29)
[2017-12-15] MEDS: TRIM/SULFAMETH 160/800 (SEPTRA DS) TAB PO SCH (06:29)
[2017-12-15] MEDS: LEVOTHYROXINE 25 MCG (LEVOTHROID) TAB PO SCH (06:29)
[2017-12-15] MEDS: FUROSEMIDE 40 MG/4 ML INJ (LASIX) IVP SCH ×2 (06:30→16:20)
[2017-12-15] MEDS: UMECLIDINIUM BROMIDE (INCRUSE ELLIPTA) 7'S IH SCH (06:39)
[2017-12-15] MEDS: ADVAIR HFA 115/21 MCG INHALER 8 GM IH SCH ×2 (06:39→18:27)
--- NOTE | 2017-12-15 08:01 | Diagnostic Imaging Report ---
PATIENT HISTORY: Pneumonia, respiratory failure, hypoxia. TECHNIQUE: Single frontal view of the chest COMPARISON: 12/14/2017 FINDINGS: There is haziness throughout the lungs, likely due to overlying soft tissue. There is marked cardiomegaly. There is interstitial prominence. No large pleural effusion or pneumothorax is seen. Fractured sternotomy wires are noted. IMPRESSION: Suboptimal examination due to body habitus. There is marked cardiomegaly with interstitial edema. Dictated by: Dictated on workstation # [id number]
[2017-12-15] MEDS ORDERED: inSUlin DETERMIR 1 UNIT/0.01 ML (LEVEMIR) CHARGE PER UNIT SQ NR (08:15)
--- NOTE | 2017-12-15 08:38 | Progress Note-Hospitalist ---
Subjective HPI/CC On Admission Date Seen by Provider: December 15, 2017 Time Seen by Provider: 08:10 CC: Dyspnea HPI: This is a 66yoWM clinic patient of mine who has had multiple hospital stays in the last 6 months for either congestive heart failure or exacerbation of COPD or pneumonia who presented to the ER with shortness of breath after his brought him on a ride around [facility]. He reports that he has had syncopal episodes at home several per day of which he failed to mention to me when I saw him on Sunday but his has made it clear that he is declining rapidly and became upset during this interview process. I did have Sid with palliative care with me during this visit because the severe medical conditions he has is apparently declining rapidly and I had a long talk with him about the fact that all of his medical problems had up to multiple issues resulting in a major decline in his status. He reports no evidence of any fever but did lose a lot of blood when he had a cut on his left foot and presented to the ER and had sutures but has been having bleeding episodes from different type of minor abrasion since that time and his hemoglobin is 7.0. He is also having abdominal cramping severe in nature that is occurring periodically that was present before gallbladder removal but has since returned at times. I will have Dr. Joy see him likely will need transfusion but volume overload is a concern. He was placed on empiric antibiotics for presumed pneumonia but chest x-ray reveals only atelectasis but will continue the current treatment that he is wheezing so I will add Solu-Medrol and initiate non-DKA insulin infusion protocol. Subjective/Events-last exam Patient doing much better but has not had a bowel movement and has had multiple doses of MiraLAX and Senokot Tried fleets and that didn't really help either Insulin drip had to be restarted due to significantly elevated too high to read blood sugars Prednisone maintained Hemoglobin much improved at 10.1 No wheezing today on exam Patient appears to be improved overall but prognosis remains poor Review of Systems Pulmonary: Dyspnea Gastrointestinal: Constipation Objective Exam Vital Signs Vital Signs Date Time Temp Pulse Resp B/P (MAP) Pulse Ox O2 Delivery O2 Flow Rate FiO2 12/15/17 15:32 Nasal Cannula 3.00 12/15/17 15:28 96.9 74 20 150/92 (111) 12/15/17 12:14 96 12/15/17 09:34 38 Capillary Refill : Less Than 3 Seconds General Appearance: No Apparent Distress, WD/WN, Chronically ill, Obese Respiratory: Lungs Clear, Normal Breath Sounds, Decreased Breath Sounds Cardiovascular: Irregularly Irregular Gastrointestinal: Non Tender, Soft Neurologic/Psychiatric: Alert, Oriented x3, No Motor/Sensory Deficits, Normal Mood/Affect, 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 Assessment/Plan Assessment and Plan Assess & Plan/Chief Complaint Assessment: Acute on chronic respiratory failure Exacerbation of COPD requiring IV steroids changing to PO steroids today 12/14/17 Diabetes mellitus [id number] with early DKA placed on non-DKA insulin infusion now placing on SSI and ac/hs accuchecks Profound anemia requiring discontinuation of anticoagulation temporarily requiring 3 units packed red blood cells since admission Chronic renal insufficiency Early pneumonia/bacterial bronchitis on Rhonda due to ESBL Congestive heart failure Cardiomyopathy Constipation Plan: Completed 2 more units of packed red blood cells to equal 5 units since admission Lasix Oxygen Nebulizers Hold anticoagulation Prognosis guarded BM regimen Diagnosis/Problems Diagnosis/Problems (1) Respiratory failure Status: Chronic Qualifiers: Chronicity: acute Respiratory failure complication: hypoxia Qualified Codes: J96.01 - Acute respiratory failure with hypoxia (2) Anemia Status: Acute Qualifiers: Anemia type: iron deficiency Iron deficiency anemia type: chronic blood loss Qualified Codes: D50.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) (3) Abdominal pain Status: Chronic Qualifiers: Abdominal location: right upper quadrant Qualified Codes: R10.11 - Right upper quadrant pain (4) COPD (chronic obstructive pulmonary disease) with acute bronchitis Status: Acute (5) Chronic atrial fibrillation Status: Chronic (6) Chronic kidney disease Status: Chronic Qualifiers: Chronic kidney disease stage: stage 3 (moderate) Qualified Codes: N18.3 - Chronic kidney disease, stage 3 (moderate) (7) CAD (coronary artery disease) Status: Chronic Qualifiers: Coronary Disease-Associated Artery/Lesion type: [place] artery [place] vs. transplanted heart: [place] heart Associated angina: without angina Qualified Codes: I25.10 - Atherosclerotic heart disease of [place] coronary artery without angina pectoris (8) IDDM (insulin dependent diabetes mellitus) Status: Chronic (9) Hypothyroidism Status: Chronic (10) Obesity hypoventilation syndrome Status: Chronic (11) JOSE MANUEL (obstructive sleep apnea) Status: Chronic (12) Poor prognosis Status: Chronic (13) Constipation Status: Acute Qualifiers: Constipation type: slow transit constipation Qualified Codes: K59.01 - Slow transit constipation Clinical Quality Measures DVT/VTE Risk/Contraindication: Risk Factor Score Per Nursin RFS Level Per Nursing on Admit: 2=Moderate CHAO PAT DO December 15, 2017 08:38
[2017-12-15] MEDS ORDERED: ASPIRIN 325 MG (5 GR) TABLET PO SCH (09:00)
[2017-12-15] MEDS: LACTULOSE SYRUP 10GM/15ML (ENULOSE) 30ML UDC PO PRN (09:06)
[2017-12-15] MEDS: DILTIAZEM 240 MG (CARDIZEM CD) CAP PO SCH (09:07)
[2017-12-15] MEDS: LORATADINE (CLARITIN) 10 MG TAB PO SCH (09:07)
[2017-12-15] MEDS: DOCUSATE SODIUM 100 MG (COLACE) CAP PO PRN (09:07)
[2017-12-15] MEDS: METOLAZONE 5 MG (ZAROXOLYN) TAB PO SCH (09:07)
[2017-12-15] MEDS: MELOXICAM 7.5 MG (MOBIC) TABLET PO SCH (09:08)
[2017-12-15] MEDS: ROSUVASTATIN 5 MG (CRESTOR) TABLET PO SCH (09:08)
[2017-12-15] MEDS: meTOproloL SUCCINATE 50 MG (TOPROL XL) TAB PO SCH (09:08)
[2017-12-15] MEDS: ASPIRIN 81 MG CHEW (CHILDREN'S ASA) PO SCH (09:08)
[2017-12-15] MEDS: SPIRONOLACTONE 25 MG (ALDACTONE) TAB PO SCH (09:08)
[2017-12-15] MEDS: PSEUDOEPHEDRINE HCL 30 MG (SUDAFED) TAB PO SCH (09:08)
[2017-12-15] MEDS: HYDROcodone/APAP 7.5 MG/325 MG (LORTAB, LORCET PLUS) TABLET PO PRN (09:09)
[2017-12-15 09:15] VITALS: BP 136/76
[2017-12-15] MEDS: inSUlin DETERMIR 1 UNIT/0.01 ML (LEVEMIR) CHARGE PER UNIT SQ SCH ×2 (10:14→22:04)
[2017-12-15 12:14] VITALS: BP 103/60
[2017-12-15] MEDS: inSUlin REGULAR TPN/DRIP ONLY 250 UNITS in NORMAL SALINE 250 ML IV SCH ×2 (12:32→22:07)
[2017-12-15 15:28] VITALS: BP 150/92
--- NOTE | 2017-12-15 15:48 | Cardiology Progress Note ---
Cardiology SOAP Progress Note Subjective: Improved shortness of breath. Objective: I&O/Vital Signs 12/15/17 12/15/17 12/15/17 12/15/17 04:00 04:00 06:40 08:45 Temp 97.0 Pulse 95 B/P (MAP) 163/85 (111) Pulse Ox 96 90 O2 Delivery NIV CPAP NIV CPAP High Flow N/C Nasal Cannula O2 Flow Rate 3.00 3.00 4.00 3.00 12/15/17 12/15/17 12/15/17 12/15/17 08:45 09:15 09:34 11:00 Temp 97.4 Pulse 80 80 Resp 22 B/P (MAP) 136/76 (96) Pulse Ox 96 O2 Delivery High Flow N/C Nasal Cannula High Flow N/C O2 Flow Rate 3.00 3.00 4.00 FiO2 38 12/15/17 12/15/17 12/15/17 12/15/17 11:38 12:14 13:00 14:47 Temp 97.0 Pulse 86 84 Resp 20 B/P (MAP) 103/60 (74) Pulse Ox 96 O2 Delivery Nasal Cannula Nasal Cannula High Flow N/C O2 Flow Rate 3.00 3.00 4.00 12/15/17 12/15/17 15:28 15:32 Temp 96.9 Pulse 74 Resp 20 B/P (MAP) 150/92 (111) O2 Delivery Nasal Cannula Nasal Cannula O2 Flow Rate 3.00 3.00 12/15/17 00:00 Intake Total 2420 ml Output Total 3650 ml Balance -1230 ml Weight (Pounds): 391 Weight (Ounces): 8.0 Weight (Calculated Kilograms): 177.966050 Constitutional: AAO x 3, well-developed, well-nourished Respiratory: No accessory muscle use, No respiratory distress, No chest tender , No chest expansion is symmetric; chest is bilaterally symmetric; No lungs clear to percussion; lungs clear to auscultation; No crackles, No rhonchi, No rales, No stridor, No wheezing, No pleural rub; other (good air entry) Cardiovascular: No regular rate-rhythm; irregularly irregular; No extra beats, No parasternal heave is noted, No JVD, No edema, No bradycardia, No tachycardia , No point of maximal impulse, No cardiac thrills are palpable; S1 and S2; No gallop/S3, No gallop/S4, No diastolic murmur; systolic murmur; No friction rub, No click, No other Gastrointestional: No tender; soft; No round, No distended, No pulsatile mass, No organomegaly, No guarding, No rebound, No tenderness, No hernia, No mass, No audible bowel sounds, No abnormal bowel sounds, No abdominal bruits, No spleenomegaly, No other Extremities: No normal range of motion, No non-tender, No normal inspection, No pedal edema, No calf tenderness, No normal capillary refill, No pelvis stable , No calf tenderness, No inflammation, No pedal edema, No slow capillary refill , No swelling; other (bilat pitting 4 + and non-pitting LE edema); No abrasion, No clubbing, No cyanosis, No ecchymosis, No laceration, No no lower extremity edema bilateral, No significant edema, No tenderness, No wound Neurologic/Psychiatric: No block trimmer II-XII nml as tested; no motor/sensory deficits , alert, normal mood/affect, oriented x 3; No abnormal cerebellar tests, No abnormal block trimmer II-XII, No abnormal gait, No aphasia, No EOM palsy, No facial droop , No motor weakness, No sensory deficit, No depressed affect, No disoriented x 3 , No other, No grossly intact, No power is 5/5 both on sides Skin: No normal color, No warm/dry, No cyanosis, No cool, No diaphoresis, No damp; ecchymosis (Left leg from the groin area, inner thigh to knee; dressing to left foot ); No jaundice, No mottled, No pallor, No rash, No tattoos/ piercings, No ulcerations, No rash on exposed areas, No ulcerations on exposed areas, No other Results/Procedures: Labs Laboratory Tests 12/14/17 16:48: Glucometer 584*H 12/14/17 16:48: Lab Scanned Report Transfusion Reaction Form 12/14/17 17:32: Glucometer > 600*H 12/14/17 18:57: Glucometer > 600*H 12/14/17 19:15: Hemoglobin 10.4L, Hematocrit 32L 12/14/17 20:08: Glucometer 571*H 12/14/17 21:11: Glucometer 482*H 12/14/17 22:16: Glucometer 413*H 12/14/17 23:29: Glucometer 381H 12/15/17 00:39: Glucometer 296H 12/15/17 01:42: Glucometer 314H 12/15/17 02:39: Glucometer 267H 12/15/17 03:35: White Blood Count 20.1H, Red Blood Count 3.86L, Hemoglobin 10.1L, Hematocrit 31L , Mean Corpuscular Volume 81, Mean Corpuscular Hemoglobin 26, Mean Corpuscular Hemoglobin Concent 33, Red Cell Distribution Width 15.7H, Platelet Count 371, Mean Platelet Volume 9.6, Neutrophils (%) (Auto) 91H, Lymphocytes (%) (Auto) 2L , Monocytes (%) (Auto) 7, Eosinophils (%) (Auto) 0, Basophils (%) (Auto) 0, Neutrophils # (Auto) 18.2H, Lymphocytes # (Auto) 0.5L, Monocytes # (Auto) 1.4H, Eosinophils # (Auto) 0.0, Basophils # (Auto) 0.0, Sodium Level 134L, Potassium Level 3.0L, Chloride Level 94L, Carbon Dioxide Level 25, Anion Gap 15H, Blood Urea Nitrogen 57H, Creatinine 1.79H, Estimat Glomerular Filtration Rate 38, BUN/ Creatinine Ratio 32, Glucose Level 200H, Calcium Level 9.0, Phosphorus Level 4.9H, Magnesium Level 2.2 12/15/17 03:42: Glucometer 218H 12/15/17 05:11: Glucometer 165H 12/15/17 06:38: Glucometer 135H 12/15/17 07:42: Glucometer 193H 12/15/17 08:52: Glucometer 257H 12/15/17 10:12: Glucometer 261H 12/15/17 10:52: Glucometer 246H 12/15/17 12:09: Glucometer 304H 12/15/17 13:16: Glucometer 215H 12/15/17 14:27: Glucometer 201H 12/15/17 15:32: Glucometer 113H Microbiology 12/12/17 Blood Culture - Preliminary, Resulted No growth A/P: Assessment/Dx: Shortness of breath, chronic diastolic congestive heart failure, COPD, Pneumonia, Obesity hypoventilation syndrome, Morbid obesity, Persistent atrial fibrillation, Anemia CAD, Sleep apnea, Chronic kidney disease Plan: Dyspnea likely multifactorial - improved. But still requiring oxygen through nasal cannula. Acute on chronic diastolic CHF, ac exacerbation of COPD, pneumonia and obesity hypoventilation syndrome Obesity (BMI approx 62) with obesity-hypoventilation Acute on chr exacerbation of COPD due to pneumonia - management by primary team. Ac on chronic diastolic CHF - continue diuretic regimen Persistent a-fib first diagnosed in early February 2016, rate controlled Anemia of undetermined etiology; ongoing occult bleed suspected OAC with Eliquis - currently being held d/t anemia that is suspected to be due to occult bleeding and that is requiring multiple blood transfusions CAD: Continue aspirin. Plavix discontinued. CAD with a h/o CABG in 2006 at [facility] in [place], [place]. On cardiac cath of 11-11-15: Multivessel coronary disease including multiple more than 90% stenosis of the proximal and mid left anterior descending artery. The mid to distal left anterior descending artery is protected with a widely patent left internal mammary artery graft. The left circumflex artery had 99% ostial/proximal stenosis to which successful stenting was carried out with Promus Premier 3.5 x 20 mm stent with a reduction of stenosis to 0% residual. The distal left circumflex and its obtuse marginal branches have diffuse moderate to moderately severe disease which were not intervened on. The right coronary artery is dominant and had 90% proximal stenosis to which successful stenting was carried out with Promus Premier 2.75 x 28 mm stent with reduction of stenosis to 0% residual. The distal right coronary artery has multiple stenoses of 50 to 60%, which were not intervened on. Cardiac cath of 11-11-15 showed well preserved global left ventricular systolic function and ejection fraction of 55 to 60%. Elevated left ventricular end- diastolic pressure which was measured at approximately 20 mmHg. No significant mitral regurgitation. ABIs on 01/13/16 at [place], [place]: 1.1 on both sides Echocardiogram of 09/14/17, LVEF 55-65%, dilated LA, supotimal study Chronic bilat leg swelling, likely due to venous insuff, no evidence of DVT on on venous duplex of 09/13/17 Hypertension COPD Quit smoking in early DM II Chronic renal insufficiency - chronic likely due in some part to diabetic nephropathy Sleep apnea syndrome - CPAP therapy - managed by Dr. Paris Minimal carotid dz on u/s of November 2015 Electrolyte abnormalities - likely d/t diuretic tx - replace Thank you for your consultation. Please call me if you have any questions. Symone Costello MD, FACP, FACC, FSCAI, FHRS, CCDS Interventional Cardiology Cardiac Electrophysiology Vascular Medicine and Endovascular Interventions Patricia COSTELLO MD December 15, 2017 3:48 pm
[2017-12-15] MEDS: ENOXAPARIN 40 MG/0.4 ML (LOVENOX) SYR SC SCH (16:20)
[2017-12-15] MEDS: TAMSULOSIN 0.4 MG (FLOMAX) CAP PO SCH (17:29)
[2017-12-15 20:00] VITALS: BP 168/93
[2017-12-15] MEDS: FLUTICASONE NASAL SPRAY (FLONASE) 16 GM BTL NS SCH (22:04)
[2017-12-15] MEDS: MONTELUKAST 10 MG (SINGULAIR) TAB PO SCH (22:04)
[2017-12-15] MEDS: PANTOPRAZOLE 20 MG TABLET (PROTONIX) PO SCH (22:04)
[2017-12-15] MEDS: FINASTERIDE (PROSCAR) 5 MG TAB PO SCH (22:04)
[2017-12-16] VITALS: BP 168/93
[2017-12-16] MEDS: MEROPENEM 500 MG in NS (IVPB) 100 ML IV SCH ×5 (00:49→23:39)
[2017-12-16] MEDS: RT-ALBUTEROL/IPRATROPIUM 3 ML (DUONEB) VIAL INH SCH ×6 (01:51→21:43)
[2017-12-16 04:00] VITALS: BP 168/93
[2017-12-16 05:54] LABS: BASOPHILS % (AUTO) 0 % (0-10); EOSINOPHILS % (AUTO) 0 % (0-10); HEMATOCRIT 30 % (40-54); HEMOGLOBIN 9.7 G/DL (13.3-17.7); LYMPHOCYTES # (AUTO) 0.6 X 10^3 (1.0-4.0); LYMPHOCYTES % (AUTO) 4 % (12-44); MEAN CORPUSCULAR HEMOGLOBIN 26 PG (25-34); MEAN CORPUSCULAR HGB CONC 33 G/DL (32-36); MEAN CORPUSCULAR VOLUME 81 FL (80-99); MEAN PLATELET VOLUME 9.9 FL (7.4-10.4); MONOCYTES # (AUTO) 1.1 X 10^3 (0.0-1.0); MONOCYTES % (AUTO) 7 % (0-12); NEUTROPHILS # (AUTO) 14.9 X 10^3 (1.8-7.8); NEUTROPHILS % (AUTO) 90 % (42-75); PLATELET COUNT 305 10^3/uL (130-400); RED BLOOD COUNT 3.67 10^6/uL (4.35-5.85); RED CELL DISTRIBUTION WIDTH 16.1 % (10.0-14.5); WHITE BLOOD COUNT 16.6 10^3/uL (4.3-11.0)
[2017-12-16 06:13] LABS: CALCIUM 8.5 MG/DL (8.5-10.1); CREATININE SERUM 1.56 MG/DL (0.60-1.30); MAGNESIUM 2.2 MG/DL (1.8-2.4); PHOSPHORUS 4.6 MG/DL (2.3-4.7); POTASSIUM 3.4 MMOL/L (3.6-5.0)
[2017-12-16] MEDS: MAGNESIUM 1 GM/100 ML IVPB 100 ML IV SCH (06:15)
[2017-12-16] MEDS: POTASSIUM CL 10MEQ/50ML IVPB 50 ML IV SCH (06:16)
[2017-12-16] MEDS: KCL 20 MEQ TAB (K-DUR) PO SCH (06:16)
[2017-12-16] MEDS: CATHETER FLUSH 10 ML SYR IV SCH ×3 (06:51→20:53)
[2017-12-16] MEDS: LEVOTHYROXINE 25 MCG (LEVOTHROID) TAB PO SCH (06:52)
[2017-12-16] MEDS: inSUlin ASPART (NovoLOG) 1 UNIT/0.01 ML (CHARGE PER UNIT) SC SCH ×5 (06:52→21:02)
[2017-12-16] MEDS: ADVAIR HFA 115/21 MCG INHALER 8 GM IH SCH ×2 (06:54→21:43)
[2017-12-16] MEDS: UMECLIDINIUM BROMIDE (INCRUSE ELLIPTA) 7'S IH SCH (06:54)
[2017-12-16] MEDS: METOLAZONE 5 MG (ZAROXOLYN) TAB PO SCH (08:16)
[2017-12-16] MEDS: LORATADINE (CLARITIN) 10 MG TAB PO SCH (08:16)
[2017-12-16] MEDS: inSUlin DETERMIR 1 UNIT/0.01 ML (LEVEMIR) CHARGE PER UNIT SQ SCH ×2 (08:16→21:01)
[2017-12-16] MEDS: SPIRONOLACTONE 25 MG (ALDACTONE) TAB PO SCH (08:17)
[2017-12-16] MEDS: predniSONE 20 MG TAB PO SCH (08:17)
[2017-12-16] MEDS: MELOXICAM 7.5 MG (MOBIC) TABLET PO SCH (08:17)
[2017-12-16] MEDS: PSEUDOEPHEDRINE HCL 30 MG (SUDAFED) TAB PO SCH (08:17)
[2017-12-16] MEDS: ROSUVASTATIN 5 MG (CRESTOR) TABLET PO SCH (08:17)
[2017-12-16] MEDS: DILTIAZEM 240 MG (CARDIZEM CD) CAP PO SCH (08:18)
[2017-12-16] MEDS: TRIM/SULFAMETH 160/800 (SEPTRA DS) TAB PO SCH (08:18)
[2017-12-16] MEDS: ASPIRIN 81 MG CHEW (CHILDREN'S ASA) PO SCH (08:18)
[2017-12-16] MEDS: meTOproloL SUCCINATE 50 MG (TOPROL XL) TAB PO SCH (08:18)
[2017-12-16] MEDS: KCL 10 MEQ TAB (MICRO K) PO SCH ×2 (08:18→17:13)
[2017-12-16] MEDS: FUROSEMIDE 40 MG/4 ML INJ (LASIX) IVP SCH ×2 (08:19→17:14)
[2017-12-16 08:21] VITALS: BP 137/68
[2017-12-16] MEDS ORDERED: KCL 20 MEQ TAB (K-DUR) PO ONE (09:00)
--- NOTE | 2017-12-16 09:07 | Diagnostic Imaging Report ---
PATIENT HISTORY: Pneumonia, respiratory failure, hypoxia. TECHNIQUE: Single frontal view of the chest COMPARISON: 12/15/2017 FINDINGS: Images are suboptimal due to body habitus. There appears to be airspace opacities in the lung bases bilaterally, which appear unchanged. There is stable cardiomegaly. There is central vascular congestion. No pneumothorax is seen. IMPRESSION: 1. Stable cardiomegaly with central vascular congestion. 2. Unchanged bibasilar airspace opacities, with additional hazy opacity likely due to overlying soft tissue. Dictated by: Dictated on workstation # [id number]
[2017-12-16 12:30] VITALS: BP 141/68
--- NOTE | 2017-12-16 12:32 | Progress Note-Hospitalist ---
Subjective HPI/CC On Admission Date Seen by Provider: December 16, 2017 Time Seen by Provider: 10:30 CC: Dyspnea HPI: This is a 66yoWM clinic patient of mine who has had multiple hospital stays in the last 6 months for either congestive heart failure or exacerbation of COPD or pneumonia who presented to the ER with shortness of breath after his brought him on a ride around [facility]. He reports that he has had syncopal episodes at home several per day of which he failed to mention to me when I saw him on Sunday but his has made it clear that he is declining rapidly and became upset during this interview process. I did have Sid with palliative care with me during this visit because the severe medical conditions he has is apparently declining rapidly and I had a long talk with him about the fact that all of his medical problems had up to multiple issues resulting in a major decline in his status. He reports no evidence of any fever but did lose a lot of blood when he had a cut on his left foot and presented to the ER and had sutures but has been having bleeding episodes from different type of minor abrasion since that time and his hemoglobin is 7.0. He is also having abdominal cramping severe in nature that is occurring periodically that was present before gallbladder removal but has since returned at times. I will have Dr. Joy see him likely will need transfusion but volume overload is a concern. He was placed on empiric antibiotics for presumed pneumonia but chest x-ray reveals only atelectasis but will continue the current treatment that he is wheezing so I will add Solu-Medrol and initiate non-DKA insulin infusion protocol. Subjective/Events-last exam Patient is doing much better at bedside Moving to fourth floor Hemoglobin dropped a little bit and Hemoccult-positive stools noticeable confer with Dr. Joy Sutures need to be removed from left foot so will have Dr. Joy evaluate that tomorrow and then figure out if endoscopy is needed Overall prognosis remains guarded and patient will ultimately declined to the point that Admission or even after that require intubation and will have difficulty weaning and set the course for long-term care facility for ventilator in addition to other multisystem organ failure's cyst the family is not interested in end-stage management and since prognosis is so poor he has a hospice candidate in my medical opinion Patient is monitor closely and will remain in the hospital for now Review of Systems General: Fatigue, Malaise Pulmonary: Dyspnea Objective Exam Vital Signs Vital Signs Date Time Temp Pulse Resp B/P (MAP) Pulse Ox O2 Delivery O2 Flow Rate FiO2 12/16/17 10:38 95 Nasal Cannula 4.00 12/16/17 08:21 97.2 79 20 137/68 (91) 12/15/17 09:34 38 Capillary Refill : Less Than 3 Seconds General Appearance: No Apparent Distress, WD/WN, Chronically ill, Obese Respiratory: Lungs Clear, Normal Breath Sounds Cardiovascular: Irregularly Irregular, Tachycardia Extremity: Pedal Edema Neurologic/Psychiatric: Alert, Oriented x3, No Motor/Sensory Deficits, Normal Mood/Affect, strategic planning director II-XII Norm as Tested Results/Procedures Lab Laboratory Tests 12/16/17 05:05 Patient resulted labs reviewed. Assessment/Plan Assessment and Plan Assess & Plan/Chief Complaint Assessment: Acute on chronic respiratory failure Exacerbation of COPD requiring IV steroids changing to PO steroids today 12/14/17 Diabetes mellitus [id number] with early DKA placed on non-DKA insulin infusion now placing on SSI and ac/hs accuchecks Profound anemia requiring discontinuation of anticoagulation temporarily requiring 3 units packed red blood cells since admission Chronic renal insufficiency Early pneumonia/bacterial bronchitis on Rhonda due to ESBL Congestive heart failure Cardiomyopathy Constipation resolved Plan: Completed 2 more units of packed red blood cells to equal 5 units since admission Lasix Oxygen Nebulizers Hold anticoagulation Prognosis guarded BM regimen Remove sutures in left foot tomorrow and will need Dr Joy to evaluate the heme + stools Diagnosis/Problems Diagnosis/Problems (1) Respiratory failure Status: Resolved Qualifiers: Chronicity: acute Respiratory failure complication: hypoxia Qualified Codes: J96.01 - Acute respiratory failure with hypoxia (2) Anemia Status: Acute Qualifiers: Anemia type: iron deficiency Iron deficiency anemia type: chronic blood loss Qualified Codes: D50.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) (3) Abdominal pain Status: Resolved Qualifiers: Abdominal location: right upper quadrant Qualified Codes: R10.11 - Right upper quadrant pain (4) COPD (chronic obstructive pulmonary disease) with acute bronchitis Status: Chronic (5) Chronic atrial fibrillation Status: Chronic (6) Chronic kidney disease Status: Chronic Qualifiers: Chronic kidney disease stage: stage 3 (moderate) Qualified Codes: N18.3 - Chronic kidney disease, stage 3 (moderate) (7) CAD (coronary artery disease) Status: Chronic Qualifiers: Coronary Disease-Associated Artery/Lesion type: [place] artery [place] vs. transplanted heart: [place] heart Associated angina: without angina Qualified Codes: I25.10 - Atherosclerotic heart disease of [place] coronary artery without angina pectoris (8) IDDM (insulin dependent diabetes mellitus) Status: Chronic (9) Hypothyroidism Status: Chronic (10) Obesity hypoventilation syndrome Status: Chronic (11) JOSE MANUEL (obstructive sleep apnea) Status: Chronic (12) Poor prognosis Status: Chronic (13) Constipation Status: Resolved Qualifiers: Constipation type: slow transit constipation Qualified Codes: K59.01 - Slow transit constipation (14) GI bleed Status: Acute Qualifiers: GI bleed type/associated pathology: unspecified gastrointestinal hemorrhage type Qualified Codes: K92.2 - Gastrointestinal hemorrhage, unspecified Clinical Quality Measures DVT/VTE Risk/Contraindication: Risk Factor Score Per Nursin RFS Level Per Nursing on Admit: 2=Moderate CHAO PAT DO December 16, 2017 12:32
--- NOTE | 2017-12-16 14:54 | Cardiology Progress Note ---
Cardiology SOAP Progress Note Subjective: Looks better than yesterday. Objective: I&O/Vital Signs 12/16/17 12/16/17 12/16/17 12/16/17 04:00 04:00 06:57 06:58 Temp 96.7 Pulse 83 Resp 20 B/P (MAP) 168/93 (118) Pulse Ox 98 95 O2 Delivery Nasal Cannula Nasal Cannula Nasal Cannula High Flow N/C O2 Flow Rate 3.00 3.00 4.00 4.00 3.00 12/16/17 12/16/17 12/16/17 12/16/17 06:59 06:59 08:21 08:30 Temp 97.2 Pulse 83 79 Resp 20 B/P (MAP) 137/68 (91) Pulse Ox 97 O2 Delivery High Flow N/C Nasal Cannula High Flow N/C O2 Flow Rate 4.00 3.00 3.00 12/16/17 12/16/17 12/16/17 12/16/17 08:30 10:38 13:00 13:13 Pulse 77 Pulse Ox 95 95 O2 Delivery High Flow N/C Nasal Cannula Nasal Cannula O2 Flow Rate 3.00 4.00 4.00 12/16/17 00:00 Intake Total 974.5 ml Output Total 1050 ml Balance -75.5 ml Weight (Pounds): 391 Weight (Ounces): 8.0 Weight (Calculated Kilograms): 177.615611 Constitutional: AAO x 3, well-developed, well-nourished Respiratory: No accessory muscle use, No respiratory distress, No chest tender , No chest expansion is symmetric; chest is bilaterally symmetric; No lungs clear to percussion; lungs clear to auscultation; No crackles, No rhonchi, No rales, No stridor, No wheezing, No pleural rub; other (good air entry) Cardiovascular: No regular rate-rhythm; irregularly irregular; No extra beats, No parasternal heave is noted, No JVD, No edema, No bradycardia, No tachycardia , No point of maximal impulse, No cardiac thrills are palpable; S1 and S2; No gallop/S3, No gallop/S4, No diastolic murmur; systolic murmur; No friction rub, No click, No other Gastrointestional: No tender; soft; No round, No distended, No pulsatile mass, No organomegaly, No guarding, No rebound, No tenderness, No hernia, No mass, No audible bowel sounds, No abnormal bowel sounds, No abdominal bruits, No spleenomegaly, No other Extremities: No normal range of motion, No non-tender, No normal inspection, No pedal edema, No calf tenderness, No normal capillary refill, No pelvis stable , No calf tenderness, No inflammation, No pedal edema, No slow capillary refill , No swelling; other (bilat pitting 4 + and non-pitting LE edema); No abrasion, No clubbing, No cyanosis, No ecchymosis, No laceration, No no lower extremity edema bilateral, No significant edema, No tenderness, No wound Neurologic/Psychiatric: No engineer/conductor II-XII nml as tested; no motor/sensory deficits , alert, normal mood/affect, oriented x 3; No abnormal cerebellar tests, No abnormal engineer/conductor II-XII, No abnormal gait, No aphasia, No EOM palsy, No facial droop , No motor weakness, No sensory deficit, No depressed affect, No disoriented x 3 , No other, No grossly intact, No power is 5/5 both on sides Skin: No normal color, No warm/dry, No cyanosis, No cool, No diaphoresis, No damp; ecchymosis (Left leg from the groin area, inner thigh to knee; dressing to left foot ); No jaundice, No mottled, No pallor, No rash, No tattoos/ piercings, No ulcerations, No rash on exposed areas, No ulcerations on exposed areas, No other Results/Procedures: Labs Laboratory Tests 12/15/17 15:32: Glucometer 113H 12/15/17 16:18: Glucometer 114H 12/15/17 17:33: Glucometer 78 12/15/17 18:03: Glucometer 79 12/15/17 18:28: Glucometer 70 12/15/17 18:55: Glucometer 103 12/15/17 20:02: Glucometer 172H 12/15/17 21:00: Glucometer 177H 12/15/17 22:11: Glucometer 67L 12/15/17 22:44: Glucometer 95 12/15/17 22:47: Stool Occult Blood Immunoassay POSITIVEH 12/15/17 23:48: Glucometer 61L 12/16/17 00:20: Glucometer 57*L 12/16/17 00:46: Glucometer 105 12/16/17 01:46: Glucometer 73 12/16/17 02:16: Glucometer 77 12/16/17 02:45: Glucometer 87 12/16/17 03:17: Glucometer 115H 12/16/17 04:20: Glucometer 134H 12/16/17 05:05: White Blood Count 16.6H, Red Blood Count 3.67L, Hemoglobin 9.7L, Hematocrit 30L , Mean Corpuscular Volume 81, Mean Corpuscular Hemoglobin 26, Mean Corpuscular Hemoglobin Concent 33, Red Cell Distribution Width 16.1H, Platelet Count 305, Mean Platelet Volume 9.9, Neutrophils (%) (Auto) 90H, Lymphocytes (%) (Auto) 4L , Monocytes (%) (Auto) 7, Eosinophils (%) (Auto) 0, Basophils (%) (Auto) 0, Neutrophils # (Auto) 14.9H, Lymphocytes # (Auto) 0.6L, Monocytes # (Auto) 1.1H, Eosinophils # (Auto) 0.0, Basophils # (Auto) 0.0, Sodium Level 135, Potassium Level 3.4L, Chloride Level 97L, Carbon Dioxide Level 24, Anion Gap 14, Blood Urea Nitrogen 62H, Creatinine 1.56H, Estimat Glomerular Filtration Rate 45, BUN/ Creatinine Ratio 40, Glucose Level 107H, Calcium Level 8.5, Phosphorus Level 4.6 , Magnesium Level 2.2 12/16/17 05:34: Glucometer 109 12/16/17 06:47: Glucometer 106 12/16/17 08:07: Glucometer 225H 12/16/17 09:22: Glucometer 242H 12/16/17 10:25: Glucometer 283H 12/16/17 11:34: Glucometer 143H 12/16/17 12:11: Glucometer 121H 12/16/17 13:15: Glucometer 81 12/16/17 13:47: Glucometer 75 12/16/17 14:27: Glucometer 172H Microbiology 12/12/17 Blood Culture - Preliminary, Resulted No growth A/P: Assessment/Dx: Shortness of breath, chronic diastolic congestive heart failure, COPD, Pneumonia, Obesity hypoventilation syndrome, Morbid obesity, Persistent atrial fibrillation, Anemia CAD, Sleep apnea, Chronic kidney disease Plan: Dyspnea likely multifactorial - improved. But still requiring oxygen through nasal cannula. Transferred out from ICU to a regular medical telemetry floor. Acute on chronic diastolic CHF, ac exacerbation of COPD, pneumonia and obesity hypoventilation syndrome Obesity (BMI approx 62) with obesity-hypoventilation Acute on chr exacerbation of COPD due to pneumonia - management by primary team. Ac on chronic diastolic CHF - continue diuretic regimen Persistent a-fib first diagnosed in early February 2016, rate controlled Anemia of undetermined etiology; ongoing occult bleed suspected. Positive stool for blood. OAC with Eliquis - currently being held d/t anemia that is suspected to be due to occult bleeding and that is requiring multiple blood transfusions CAD: Continue aspirin. Plavix discontinued. CAD with a h/o CABG in 2006 at [facility] in [place], [place]. On cardiac cath of 11-11-15: Multivessel coronary disease including multiple more than 90% stenosis of the proximal and mid left anterior descending artery. The mid to distal left anterior descending artery is protected with a widely patent left internal mammary artery graft. The left circumflex artery had 99% ostial/proximal stenosis to which successful stenting was carried out with Promus Premier 3.5 x 20 mm stent with a reduction of stenosis to 0% residual. The distal left circumflex and its obtuse marginal branches have diffuse moderate to moderately severe disease which were not intervened on. The right coronary artery is dominant and had 90% proximal stenosis to which successful stenting was carried out with Promus Premier 2.75 x 28 mm stent with reduction of stenosis to 0% residual. The distal right coronary artery has multiple stenoses of 50 to 60%, which were not intervened on. Cardiac cath of 11-11-15 showed well preserved global left ventricular systolic function and ejection fraction of 55 to 60%. Elevated left ventricular end- diastolic pressure which was measured at approximately 20 mmHg. No significant mitral regurgitation. ABIs on 01/13/16 at [place], [place]: 1.1 on both sides Echocardiogram of 09/14/17, LVEF 55-65%, dilated LA, supotimal study Chronic bilat leg swelling, likely due to venous insuff, no evidence of DVT on on venous duplex of 09/13/17 Hypertension COPD Quit smoking in early 2000s DM II Chronic renal insufficiency - chronic likely due in some part to diabetic nephropathy Sleep apnea syndrome - CPAP therapy - managed by Dr. Paris Minimal carotid dz on u/s of November 2015 Electrolyte abnormalities - likely d/t diuretic tx - replace Thank you for your consultation. Please call me if you have any questions. Symone Costello MD, FACP, FACC, FSCAI, FHRS, CCDS Interventional Cardiology Cardiac Electrophysiology Vascular Medicine and Endovascular Interventions Patricia COSTELLO MD December 16, 2017 2:54 pm
[2017-12-16] MEDS: ENOXAPARIN 40 MG/0.4 ML (LOVENOX) SYR SC SCH (17:14)
[2017-12-16] MEDS: TAMSULOSIN 0.4 MG (FLOMAX) CAP PO SCH (17:14)
[2017-12-16 20:00] VITALS: BP 160/96
[2017-12-16] MEDS: PANTOPRAZOLE 20 MG TABLET (PROTONIX) PO SCH (20:52)
[2017-12-16] MEDS: MONTELUKAST 10 MG (SINGULAIR) TAB PO SCH (20:52)
[2017-12-16] MEDS: FINASTERIDE (PROSCAR) 5 MG TAB PO SCH (20:52)
[2017-12-16] MEDS: FLUTICASONE NASAL SPRAY (FLONASE) 16 GM BTL NS SCH (20:53)
[2017-12-16] MEDS ORDERED: NITROGLYCERIN 2% OINT 1 GM UNIT DOSE PACKET TOP PRN (22:00)
[2017-12-16 22:19] VITALS: BP 130/72
[2017-12-17] VITALS: BP 107/60
[2017-12-17] MEDS: inSUlin ASPART (NovoLOG) 1 UNIT/0.01 ML (CHARGE PER UNIT) SC SCH ×7 (00:22→20:45)
[2017-12-17] MEDS: RT-ALBUTEROL/IPRATROPIUM 3 ML (DUONEB) VIAL INH SCH ×6 (01:58→22:23)
[2017-12-17 03:15] VITALS: BP 112/61
[2017-12-17] MEDS: MEROPENEM 500 MG in NS (IVPB) 100 ML IV SCH ×3 (05:23→18:09)
[2017-12-17] MEDS: CATHETER FLUSH 10 ML SYR IV SCH ×3 (05:24→22:00)
[2017-12-17 06:33] LABS: BASOPHILS % (AUTO) 0 % (0-10); EOSINOPHILS # (AUTO) 0.1 10^3/uL (0.0-0.3); EOSINOPHILS % (AUTO) 0 % (0-10); HEMATOCRIT 31 % (40-54); HEMOGLOBIN 9.6 G/DL (13.3-17.7); LYMPHOCYTES # (AUTO) 1.8 X 10^3 (1.0-4.0); LYMPHOCYTES % (AUTO) 14 % (12-44); MEAN CORPUSCULAR HEMOGLOBIN 26 PG (25-34); MEAN CORPUSCULAR HGB CONC 31 G/DL (32-36); MEAN CORPUSCULAR VOLUME 83 FL (80-99); MONOCYTES # (AUTO) 1.6 X 10^3 (0.0-1.0); MONOCYTES % (AUTO) 12 % (0-12); NEUTROPHILS % (AUTO) 74 % (42-75); PLATELET COUNT 319 10^3/uL (130-400); RED BLOOD COUNT 3.73 10^6/uL (4.35-5.85); RED CELL DISTRIBUTION WIDTH 16.1 % (10.0-14.5); WHITE BLOOD COUNT 13.5 10^3/uL (4.3-11.0)
[2017-12-17] MEDS: predniSONE 20 MG TAB PO SCH (06:44)
[2017-12-17] MEDS: LEVOTHYROXINE 25 MCG (LEVOTHROID) TAB PO SCH (06:44)
[2017-12-17] MEDS: TRIM/SULFAMETH 160/800 (SEPTRA DS) TAB PO SCH (06:45)
[2017-12-17] MEDS: FUROSEMIDE 40 MG/4 ML INJ (LASIX) IVP SCH ×2 (06:45→18:08)
[2017-12-17] MEDS: KCL 10 MEQ TAB (MICRO K) PO SCH ×2 (06:45→18:08)
[2017-12-17 06:46] LABS: CALCIUM 8.9 MG/DL (8.5-10.1); CREATININE SERUM 1.54 MG/DL (0.60-1.30); MAGNESIUM 2.2 MG/DL (1.8-2.4); PHOSPHORUS 3.8 MG/DL (2.3-4.7); POTASSIUM 3.6 MMOL/L (3.6-5.0)
[2017-12-17] MEDS: ADVAIR HFA 115/21 MCG INHALER 8 GM IH SCH ×2 (07:04→22:26)
[2017-12-17] MEDS: UMECLIDINIUM BROMIDE (INCRUSE ELLIPTA) 7'S IH SCH (07:05)
[2017-12-17 08:30] VITALS: BP 136/82
[2017-12-17] MEDS: ASPIRIN 81 MG CHEW (CHILDREN'S ASA) PO SCH (08:31)
[2017-12-17] MEDS: meTOproloL SUCCINATE 50 MG (TOPROL XL) TAB PO SCH (08:31)
[2017-12-17] MEDS: DILTIAZEM 240 MG (CARDIZEM CD) CAP PO SCH (08:31)
[2017-12-17] MEDS: PSEUDOEPHEDRINE HCL 30 MG (SUDAFED) TAB PO SCH (08:31)
[2017-12-17] MEDS: LORATADINE (CLARITIN) 10 MG TAB PO SCH (08:31)
[2017-12-17] MEDS: HYDROcodone/APAP 7.5 MG/325 MG (LORTAB, LORCET PLUS) TABLET PO PRN (08:31)
[2017-12-17] MEDS: DOCUSATE SODIUM 100 MG (COLACE) CAP PO PRN (08:32)
[2017-12-17] MEDS: inSUlin DETERMIR 1 UNIT/0.01 ML (LEVEMIR) CHARGE PER UNIT SQ SCH ×2 (08:32→20:45)
[2017-12-17] MEDS: SPIRONOLACTONE 25 MG (ALDACTONE) TAB PO SCH (08:33)
[2017-12-17] MEDS: METOLAZONE 5 MG (ZAROXOLYN) TAB PO SCH (08:33)
[2017-12-17] MEDS: ROSUVASTATIN 5 MG (CRESTOR) TABLET PO SCH (08:34)
[2017-12-17] MEDS: MELOXICAM 7.5 MG (MOBIC) TABLET PO SCH (08:34)
--- NOTE | 2017-12-17 08:35 | Progress Note-Cardiology ---
Cardiology SOAP Progress Note Subjective: States he felt SOB yesterday, but feels this has improved. LE swelling persists. Occ non-productive cough. No c/o CP or palpitations. Objective: I&O/Vital Signs 12/17/17 12/17/17 12/17/17 12/17/17 03:15 07:03 07:30 08:30 Temp 97.7 98.0 Pulse 62 83 83 Resp 22 20 B/P (MAP) 112/61 (78) 136/82 (100) Pulse Ox 98 98 97 O2 Delivery NIV CPAP Nasal Cannula High Flow N/C O2 Flow Rate 3.00 3.00 3.00 12/17/17 12/17/17 11:15 13:04 Pulse 60 Pulse Ox 98 O2 Delivery Nasal Cannula O2 Flow Rate 3.00 12/17/17 00:00 Intake Total 500 ml Output Total 1250 ml Balance -750 ml Weight (Pounds): 410 Weight (Ounces): 8.0 Weight (Calculated Kilograms): [id number] Constitutional: AAO x 3, well-developed, well-nourished Respiratory: chest is bilaterally symmetric, lungs clear to auscultation, wheezing (scattered exp wheezes), other (good air entry with prolonged expiratory phase) Cardiovascular: irregularly irregular, S1 and S2, systolic murmur Gastrointestional: soft, audible bowel sounds Extremities: other (bilat pitting 4 + and non-pitting LE edema) Neurologic/Psychiatric: grossly intact Skin: ecchymosis (Left leg from the groin area, inner thigh to knee; dressing to left foot ) Results/Procedures: Labs Laboratory Tests 12/16/17 17:44: Glucometer 377H 12/16/17 20:51: Glucometer 394H 12/17/17 00:06: Glucometer 364H 12/17/17 03:17: Glucometer 269H 12/17/17 05:20: White Blood Count 13.5H, Red Blood Count 3.73L, Hemoglobin 9.6L, Hematocrit 31L , Mean Corpuscular Volume 83, Mean Corpuscular Hemoglobin 26, Mean Corpuscular Hemoglobin Concent 31L, Red Cell Distribution Width 16.1H, Platelet Count 319, Mean Platelet Volume 10.0, Neutrophils (%) (Auto) 74, Lymphocytes (%) (Auto) 14 , Monocytes (%) (Auto) 12, Eosinophils (%) (Auto) 0, Basophils (%) (Auto) 0, Neutrophils # (Auto) 10.0H, Lymphocytes # (Auto) 1.8, Monocytes # (Auto) 1.6H, Eosinophils # (Auto) 0.1, Basophils # (Auto) 0.0, Sodium Level 135, Potassium Level 3.6, Chloride Level 94L, Carbon Dioxide Level 33H, Anion Gap 8, Blood Urea Nitrogen 61H, Creatinine 1.54H, Estimat Glomerular Filtration Rate 45, BUN/ Creatinine Ratio 40, Glucose Level 211H, Calcium Level 8.9, Phosphorus Level 3.8 , Magnesium Level 2.2, Iron Level 53 12/17/17 05:39: Glucometer 218H 12/17/17 08:49: Glucometer 202H 12/17/17 12:21: Glucometer 355H 12/17/17 13:57: Lab Scanned Report Transfusion Reaction Form Microbiology 12/12/17 Blood Culture - Preliminary, Resulted No growth 12/15/17 MRSA Screen - Final, Complete MRSA not isolated Laboratory Tests 12/16/17 05:05 12/17/17 05:20 A/P: Assessment: Dyspnea likely multifactorial - ac on chronic diastolic CHF, ac exacerbation of COPD, pneumonia and obesity hypoventilation syndrome Obesity (BMI approx 62) with obesity-hypoventilation Acute on chr exacerbation of COPD due to pneumonia - management by Dr Hutton Ac on chronic diastolic CHF - continue diuretic regimen Persistent a-fib first diagnosed in early February 2016, rate controlled Anemia of undetermined etiology; ongoing occult bleed suspected - management by Dr. Hutton of medical services OAC with Eliquis - currently being held d/t anemia that is suspected to be due to occult bleeding and that is requiring multiple blood transfusions CAD with a h/o CABG in 2006 at [facility] in [place], [place]. On cardiac cath of 11-11-15: Multivessel coronary disease including multiple more than 90% stenosis of the proximal and mid left anterior descending artery. The mid to distal left anterior descending artery is protected with a widely patent left internal mammary artery graft. The left circumflex artery had 99% ostial/ proximal stenosis to which successful stenting was carried out with Promus Premier 3.5 x 20 mm stent with a reduction of stenosis to 0% residual. The distal left circumflex and its obtuse marginal branches have diffuse moderate to moderately severe disease which were not intervened on. The right coronary artery is dominant and had 90% proximal stenosis to which successful stenting was carried out with Promus Premier 2.75 x 28 mm stent with reduction of stenosis to 0% residual. The distal right coronary artery has multiple stenoses of 50 to 60%, which were not intervened on. Cardiac cath of 11-11-15 showed well preserved global left ventricular systolic function and ejection fraction of 55 to 60%. Elevated left ventricular end- diastolic pressure which was measured at approximately 20 mmHg. No significant mitral regurgitation. ABIs on 01/13/16 at [place], [place]: 1.1 on both sides Echocardiogram of 09/14/17 (Dr Costello): LVEF 55-65%, dilated LA, supotimal study Chronic bilat leg swelling, likely due to venous insuff, no evidence of DVT on on venous duplex of 09/13/17 Hypertension COPD Quit smoking in early DM II Chronic renal insufficiency - chronic likely due in some part to diabetic nephropathy Sleep apnea syndrome - CPAP therapy - managed by Dr. Paris Minimal carotid dz on u/s of November 2015 Electrolyte abnormalities - likely d/t diuretic tx - replace Plan: * Complex management issue * Transfuse to maintain Hgb 10 or greater - after 5 units PRBC H/H had improved to greater than 10, now slowly trending down * Continue to hold OAC * Stop Plavix since last stenting was greater than 2 years ago * Continue low dose ASA d/t CAD * Continue enoxaparin for DVT prophylaxis * Investigate anemia - Dr. Joy has been consulted per medical services - occult (+) stool * Continue IV diuretics - give additional lasix today along with increased metolazone - change metolazone time to be administered 30 minutes prior to Lasix * Monitor lab closely and replace electrolytes as indicated * Pneumonia per medical services * Replace electrolytes * Palliative care consult per medical services - pt/spouse have declined services at this time Physician Assessment Physician Assessment Shortness of breath modestly improved. No cp or palp or syncope Lungs: dec bs at bases Cor: irreg Ext: mod bilat leg edema A&R * As documented in our note above that I updated (italics) and as noted below * I had a detailed discussion with him and his regarding his CV issues * Monitor labs BENJAMIN ARROYO December 17, 2017 08:35 CATY PENALOZA MD FACP FACC CCDS December 17, 2017 14:58
--- NOTE | 2017-12-17 10:13 | Progress Note-Hospitalist ---
Subjective HPI/CC On Admission Date Seen by Provider: December 17, 2017 Time Seen by Provider: 09:15 CC: Dyspnea HPI: This is a 66yoWM clinic patient of mine who has had multiple hospital stays in the last 6 months for either congestive heart failure or exacerbation of COPD or pneumonia who presented to the ER with shortness of breath after his brought [facility]. He reports that he has had syncopal episodes at home several per day of which he failed to mention to me when I saw him on Sunday but his has made it clear that he is declining rapidly and became upset during this interview process. I did have Sid with palliative care with me during this visit because the severe medical conditions he has is apparently declining rapidly and I had a long talk with him about the fact that all of his medical problems had up to multiple issues resulting in a major decline in his status. He reports no evidence of any fever but did lose a lot of blood when he had a cut on his left foot and presented to the ER and had sutures but has been having bleeding episodes from different type of minor abrasion since that time and his hemoglobin is 7.0. He is also having abdominal cramping severe in nature that is occurring periodically that was present before gallbladder removal but has since returned at times. I will have Dr. Joy see him likely will need transfusion but volume overload is a concern. He was placed on empiric antibiotics for presumed pneumonia but chest x-ray reveals only atelectasis but will continue the current treatment that he is wheezing so I will add Solu-Medrol and initiate non-DKA insulin infusion protocol. Subjective/Events-last exam Patient doing about the same and we are trying to do whatever we can to decrease readmissions Patient is so complicated that there is only so much that can be modified because the poor prognosis long-term persist Will initiate swing bed or inpatient rehabilitation I spoke to Dr. Joy about Hemoccult-positive stools and removing sutures out of left foot which looks good and appears to be well-healed without any erythema Meropenem will be discontinued today since 7 days of treatment have been completed Checked meds and labs Overall prognosis extremely poor and likely if patient declines once discharged home he will suffer respiratory failure requiring intubation and/or cardiac arrest respiratory arrest and possibly need higher level of care at that time. They are not interested in end-of-life for hospice conversations. Review of Systems General: Malaise Pulmonary: Dyspnea Cardiovascular: Edema Objective Exam Vital Signs Vital Signs Date Time Temp Pulse Resp B/P (MAP) Pulse Ox O2 Delivery O2 Flow Rate FiO2 12/17/17 07:30 83 12/17/17 07:03 98 Nasal Cannula 4.00 12/17/17 03:15 97.7 22 112/61 (78) 12/15/17 09:34 38 Capillary Refill : Less Than 3 Seconds General Appearance: No Apparent Distress, WD/WN, Chronically ill, Obese Respiratory: Lungs Clear, Normal Breath Sounds, Decreased Breath Sounds Cardiovascular: Irregularly Irregular Neurologic/Psychiatric: Alert, Oriented x3, No Motor/Sensory Deficits, Normal Mood/Affect Skin: Normal Color, Warm/Dry Lymphatic: No Adenopathy Results/Procedures Lab Laboratory Tests 12/17/17 05:20 Patient resulted labs reviewed. Assessment/Plan Assessment and Plan Assess & Plan/Chief Complaint Assessment: Acute on chronic respiratory failure but unable to modify anything to prevent readmits Exacerbation of COPD requiring IV steroids changed to PO steroids on 12/14/17 Diabetes mellitus [id number] with early DKA placed on non-DKA insulin infusion now placing on SSI and ac/hs accuchecks Profound anemia requiring discontinuation of anticoagulation temporarily requiring 3 units packed red blood cells since admission Chronic renal insufficiency Early pneumonia/bacterial bronchitis on Rhonda due to ESBL s/p completed 7 days of treatment Congestive heart failure Cardiomyopathy Constipation resolved Plan: Completed 5 units of blood since admission Lasix Oxygen Nebulizers Hold anticoagulation Prognosis guarded BM regimen Remove sutures in left foot today and will Dr Joy will creat the plan for heme + stools Diagnosis/Problems Diagnosis/Problems (1) Respiratory failure Status: Resolved Qualifiers: Chronicity: acute Respiratory failure complication: hypoxia Qualified Codes: J96.01 - Acute respiratory failure with hypoxia (2) Anemia Status: Acute Qualifiers: Anemia type: iron deficiency Iron deficiency anemia type: chronic blood loss Qualified Codes: D50.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) (3) Abdominal pain Status: Resolved Qualifiers: Abdominal location: right upper quadrant Qualified Codes: R10.11 - Right upper quadrant pain (4) COPD (chronic obstructive pulmonary disease) with acute bronchitis Status: Chronic (5) Chronic atrial fibrillation Status: Chronic (6) Chronic kidney disease Status: Chronic Qualifiers: Chronic kidney disease stage: stage 3 (moderate) Qualified Codes: N18.3 - Chronic kidney disease, stage 3 (moderate) (7) CAD (coronary artery disease) Status: Chronic Qualifiers: Coronary Disease-Associated Artery/Lesion type: [place] artery [place] vs. transplanted heart: [place] heart Associated angina: without angina Qualified Codes: I25.10 - Atherosclerotic heart disease of [place] coronary artery without angina pectoris (8) IDDM (insulin dependent diabetes mellitus) Status: Chronic (9) Hypothyroidism Status: Chronic (10) Obesity hypoventilation syndrome Status: Chronic (11) JOSE MANUEL (obstructive sleep apnea) Status: Chronic (12) Poor prognosis Status: Chronic (13) Constipation Status: Resolved Qualifiers: Constipation type: slow transit constipation Qualified Codes: K59.01 - Slow transit constipation (14) GI bleed Status: Acute Qualifiers: GI bleed type/associated pathology: unspecified gastrointestinal hemorrhage type Qualified Codes: K92.2 - Gastrointestinal hemorrhage, unspecified Clinical Quality Measures DVT/VTE Risk/Contraindication: Risk Factor Score Per Nursin RFS Level Per Nursing on Admit: 2=Moderate CHAO PAT DO December 17, 2017 10:13
--- NOTE | 2017-12-17 11:48 | Physical Therapy Evaluation ---
PT Evaluation-General Medical Diagnosis Admission Date December 11, 2017 at 23:40 Medical Diagnosis: pneumonia/resp. failure Onset Date: December 11, 2017 Therapy Diagnosis Therapy Diagnosis: debility/weakness Height/Weight Height (Feet): 5 Height (Inches): 8.00 Weight (Pounds): 410 Weight (Ounces): 8.0 Precautions Precautions/Isolations: Contact Isolation, Standard Precautions Weight Bear Status Right Lower Extremity: Right Full Weight Bearing Full Weight Bearing Referral Physician: Anni Reason for Referral: Evaluation/Treatment Medical History Pertinent Medical History: CABG, COPD, DM, Heart Failure, Hypothroidism Additional Medical History morbid obesity Current History EMS secondary to SOB requiring CPap to recover in EMS Reviewed History: Yes Social History Home: Single Level Current Living Status: Spouse Entry Into Home: Ramp Prior/Core FIM Prior Level of Function Functional [place] Measure 0=Not Assessed/NA 4=Minimal Assistance 1=Total Assistance 5=Supervision or Setup 2=Maximal Assistance 6=Modified [place] 3=Moderate Assistance 7=Complete [place] Bed Mobility: 6 Transfers (B,C,W/C) (FIM): 6 Gait: 1 Locomotion: 6 (powerchair/scooter) PT Evaluation-Current Subjective Patient agrees to PT. Pain Numeric Pain Scale: 0-No Pain Location: No Pain Reported Objective Patient Orientation: Normal For Age Problem Solving: Fair Attachments: Oxygen (3L) ROM/Strength ROM Lower Extremities bilateral LE WNL Strength Lower Extremities 4/5 grossly bilaterally Integumentary/Posture Integumentary refer to nursing notes Bowel Incontinence: No Bladder Incontinence: No Posture WFL Neuromuscular (Tone, Coordination, Reflexes) grossly intact with all/patient is inactive PLOF and ambulates only short distances and utilizes scooter for mobility. Sensory Vision: Functional Hearing: Functional Sensation Right Lower Extremit: Impaired Sensation Left Lower Extremity: Impaired Transfers Functional [place] Measure 0=Not Assessed/NA 4=Minimal Assistance 1=Total Assistance 5=Supervision or Setup 2=Maximal Assistance 6=Modified [place] 3=Moderate Assistance 7=Complete [place] Transfers (B, C, W/C) (FIM): 6 Scootin Sit to/from Stand: 6 Gait Mode of Locomotion: Both Anticipated Mode of Locomotion: Both Gait (FIM): 1 Distance (FIM): 1=up to 49 ft Distance: 30' x 4 Gait Level of Assist: 6 Gait Assistive Device: FWW Comments/Gait Description FWW for energy conservation/patient reports he will not utilize this in the home Balance Sitting Static: Normal Sitting Dynamic: Normal Standing Static: Normal Standing Dynamic: Normal Assessment/Needs 66 y.o. male, will be seen short term by skilled PT to address functional mobility to improve pulmonary function with mobility. Patient is inactive PLOF and ambulates short distances only and utilizes power scooter for mobility. Rehab Potential: Fair Post Rehab Potential-Barriers: compliance/morbid obesity PT Ice Cutter Goals Group Home Goals PT Group Home Goals Time Frame: December 26, 2017 Transfers (B,C,W/C) (FIM): 6 Gait (FIM): 1 Gait distance (FIM): 1=up to 49 ft Distance: 45' x 4 Gait Level of Assist: 6 Gait Assistive Device: FWW PT Plan Problem List Problem List: Activity Tolerance, Other (morbid obesity/inactivity PLOF) Treatment/Plan Treatment Plan: Continue Plan of Care Treatment Plan: Bed Mobility, Education, Functional Activity Rl, Functional Strength, Gait, Safety, Therapeutic Exercise, Transfers Treatment Duration: December 26, 2017 Frequency: 6 times per week Estimated Hrs Per Day: .25 hour per day Patient and/or Family Agrees t: Yes Safety Risks/Education Patient Education: Safety Issues Teaching Recipient: Patient Teaching Methods: Discussion Response to Teaching: Verbalize Understanding Discharge Recommendations Therapy D/C Recommendations: Home w/ Family Support Time/GCodes Time In: 1055 Time Out: 1110 Total Billed Treatment Time: 20 Total Billed Treatment 1 visit EVModC 20 min RIO REYNOLDS PT December 17, 2017 11:47
[2017-12-17 12:30] VITALS: BP 135/85
--- NOTE | 2017-12-17 16:42 | Occupational Therapy Eval ---
OT Evaluation-General/PLF Medical Diagnosis Admission Date December 11, 2017 at 23:40 Medical Diagnosis: pneumonia/resp. failure Onset Date: December 11, 2017 Therapy Diagnosis Therapy Diagnosis: Weakness Height/Weight Height (Feet): 5 Height (Inches): 8.00 Weight (Pounds): 410 Weight (Ounces): 8.0 Precautions Precautions/Isolations: Contact Isolation, Standard Precautions Safety Interventions: None Weight Bear Status Weight Bearing Restriction: Weight Bearing/Tolerated Referral Physician: Anni Referral Reason: Activity Tolerance, Self Care, Evaluation/Treatment, Strengthening/ROM Medical History Pertinent Medical History: Atrial Fib, CABG, COPD, DM, Heart Failure, Hypothroidism Additional Medical History Anemia, CHF, CABG Current History Pt. has had recent hospitalizations due to respiratory failure. Reviewed History: Yes Social History Home: Single Level Current Living Status: Spouse Entry Into Home: Stairs With Railing Steps Into Home: 4 Pt. uses walker for steps, and power chair otherwise when outside of the home. ADL-Prior Level of Function ADL PLOF Comments Spouse in room and states that she helps pt. bathe. Otherwise, she lays his clothes out for him and he dresses himself. DME/Equipment Comments Pt. has a power chair. Spouse also states that her family is building him a large walk in shower with bench right now. Drive Self: Yes OT Current Status Subjective No pain reported. Pt. states that he is feeling better. Appearance Pt. is sitting on side of bed when OT comes into room. Pt. has already showered with spouse assist. Mental Status/Objective Patient Orientation: Person, Place, Time, Situation Attachments: Oxygen Current Hand Dominance: Right Upper Extremity ROM Right- WFL Left- pt. is only able to extend left shoulder to approximately 90 degrees. States that he has an old injury. Upper Extremity Strength 4/5 right UE 2+/5 left UE ADL-Treatment Functional [place] Measure 0=Not Assessed/NA 4=Minimal Assistance 1=Total Assistance 5=Supervision or Setup 2=Maximal Assistance 6=Modified [place] 3=Moderate Assistance 7=Complete IndependenceIRFPAI Quality Coding Scale 6 Independent with activity with or without an assistive device 5 Patient requires set up or clean up by helper. Patient completes activity by themselves 4 Supervision or touching assist (CGA). [place] provide cues , steadying assist 3 The helper provides less than half the effort to complete the activity 2 The helper provides more than half the effort to complete the activity 1 Dependent. The helper does all the effort to complete an activity 7 Patient refused to complete or attempt activity 9 The patient did not perform the activity before the current illness or injury 88 Not attempted due to Medical conditions or safety concerns Transfers (B, C, W/C) (FIM): 5 Other Treatments Pt. has already showered. States that occassionally he has difficulty with socks, but his spouse assists. Pt. states that he would like to increase overall endurance. Education OT Patient Education: Correct positioning, Modified ADL techniques, Progress toward Goal/Update tx plan, Purpose of tx/functional activities, Reviewed precautions, Rehab process, Transfer techniques Teaching Recipient: Patient, Family Teaching Methods: Demonstration, Discussion Response to Teaching: Verbalize Understanding OT Short Term Goals Short Term Goals 1=Demonstrate adherence to instructed precautions during ADL tasks. 2=Patient will verbalize/demonstrate understanding of assistive devices/ modifications for ADL. 3=Patient will improve strength/tolerance for activity to enable patient to perform ADL's. OT Aquaculture Program Director Goals Aquaculture Program Director Goals Time Frame: December 24, 2017 Eating (FIM): 6 Grooming(FIM): 6 Bathing(FIM): 5 Upper Body Dressing(FIM): 6 Lower Body Dressing(FIM): 6 Toileting(FIM): 6 Transfers (B,C,W/C) (FIM): 6 Toilet/Commode Transfer(FIM): 6 Shower Transfer(FIM): 5 Additional Goals: 1-Demonstrate ADL Tasks, 2-Verbalize Understanding, 3- ImproveStrength/Rl 1=Demonstrate adherence to instructed precautions during ADL tasks. 2=Patient will verbalize/demonstrate understanding of assistive devices/ modifications for ADL. 3=Patient will improve strength/tolerance for activity to enable patient to perform ADL's. OT Education/Plan Problem List/Assessment Assessment: Decreased Activ Tolerance, Decreased UE Strength, Impaired I ADL's , Impaired Self-Care Skills Discharge Recommendations Plan/Recommendations: Continue POC Therapy D/C Recommendations: Home w/ Family Support Equpiment Recommendations-D/C: Hip Kit Treatment Plan/Plan of Care Treatment,Training & Education: Yes Patient would benefit from OT for education, treatment and training to promote independence in ADL's, mobility, safety and/or upper extremity function for ADL' s. Plan of Care: ADL Retraining, Caregiver Training, Functional Mobility, UE Funct Exercise/Act Treatment Duration: December 24, 2017 Frequency: 5 times per week Estimated Hrs Per Day: .25 hour per day Agreement: Yes Rehab Potential: Fair Time/GCodes Start Time: 14:25 Stop Time: 14:45 Total Time Billed (hr/min): 20 Billed Treatment Time 1, DORITA GARZA OT December 17, 2017 16:42
[2017-12-17 16:54] VITALS: BP 140/71
--- NOTE | 2017-12-17 17:07 | Progress Note (SOAP) ---
Subjective Date Seen by Provider: December 17, 2017 Time Seen by Provider: 17:00 Subjective/Events-last exam clinically doing ok however multiple chronic medical issues. Hb relatively stable after 5units PRBC. no clinical bleed. does report hx GERD/PUD and several issues of dark/black stools in past 6-8 weeks. no bright red blood per rectum. Objective Exam Vital Signs Date Time Temp Pulse Resp B/P (MAP) Pulse Ox O2 Delivery O2 Flow Rate FiO2 12/17/17 16:54 97.5 80 20 140/71 (94) 95 High Flow N/C 3.00 12/17/17 15:09 93 Nasal Cannula 3.00 12/17/17 13:04 60 12/17/17 12:30 97.7 80 20 135/85 (102) 97 High Flow N/C 3.00 12/17/17 11:15 98 Nasal Cannula 3.00 12/17/17 08:30 98.0 83 20 136/82 (100) 97 High Flow N/C 3.00 12/17/17 07:30 83 12/17/17 07:03 98 Nasal Cannula 3.00 12/17/17 03:15 97.7 62 22 112/61 (78) 98 NIV CPAP 3.00 12/17/17 01:58 94 High Flow N/C 4.00 12/17/17 01:00 71 12/17/17 00:00 96.6 70 22 107/60 (76) 97 NIV CPAP 3.00 12/16/17 22:19 72 130/72 (91) 12/16/17 21:48 High Flow N/C 3.00 12/16/17 21:43 97 High Flow N/C 3.00 12/16/17 20:50 High Flow N/C 3.00 12/16/17 20:00 97.3 67 24 160/96 (117) 100 High Flow N/C 3.00 12/16/17 19:08 93 NIV CPAP 4.00 12/16/17 19:00 66 12/16/17 18:35 High Flow N/C 3.00 I & O 12/17/17 07:00 Intake Total 2356 ml Output Total 4000 ml Balance -1644 ml Capillary Refill : Less Than 3 Seconds General Appearance: No Apparent Distress HEENT: PERRL/EOMI Neck: Full Range of Motion Respiratory: Rales, Rhonci, Wheezing Cardiovascular: Regular Rate, Rhythm Gastrointestinal: normal bowel sounds, non tender, soft Extremity: Normal Capillary Refill Neurologic/Psychiatric: Alert, Oriented x3 Skin: Normal Color Lymphatic: No Adenopathy Results Lab Laboratory Tests 12/16/17 17:44: Glucometer 377H 12/16/17 20:51: Glucometer 394H 12/17/17 00:06: Glucometer 364H 12/17/17 03:17: Glucometer 269H 12/17/17 05:20: White Blood Count 13.5H, Red Blood Count 3.73L, Hemoglobin 9.6L, Hematocrit 31L , Mean Corpuscular Volume 83, Mean Corpuscular Hemoglobin 26, Mean Corpuscular Hemoglobin Concent 31L, Red Cell Distribution Width 16.1H, Platelet Count 319, Mean Platelet Volume 10.0, Neutrophils (%) (Auto) 74, Lymphocytes (%) (Auto) 14 , Monocytes (%) (Auto) 12, Eosinophils (%) (Auto) 0, Basophils (%) (Auto) 0, Neutrophils # (Auto) 10.0H, Lymphocytes # (Auto) 1.8, Monocytes # (Auto) 1.6H, Eosinophils # (Auto) 0.1, Basophils # (Auto) 0.0, Sodium Level 135, Potassium Level 3.6, Chloride Level 94L, Carbon Dioxide Level 33H, Anion Gap 8, Blood Urea Nitrogen 61H, Creatinine 1.54H, Estimat Glomerular Filtration Rate 45, BUN/ Creatinine Ratio 40, Glucose Level 211H, Calcium Level 8.9, Phosphorus Level 3.8 , Magnesium Level 2.2, Iron Level 53 12/17/17 05:39: Glucometer 218H 12/17/17 08:49: Glucometer 202H 12/17/17 12:21: Glucometer 355H 12/17/17 13:57: Lab Scanned Report Transfusion Reaction Form Microbiology 12/12/17 Blood Culture - Preliminary, Resulted No growth 12/15/17 MRSA Screen - Final, Complete MRSA not isolated Assessment/Plan Assessment/Plan Assess & Plan/Chief Complaint exacerbation COPD with pneumonia and anemia. no clinical bleeding however subnormal Hb elevation after 5 units PRBC. off PO anticoagulants now and only on lovenox for DVT prophylaxis. states no red blood per rectum but did have several episodes dark/black stools in past 6 weeks. will plan for EGD on Sunday(12/19) and remove previously placed sutures left foot at same time. Clinical Quality Measures DVT/VTE Risk/Contraindication: Risk Factor Score Per Nursin RFS Level Per Nursing on Admit: 2=Moderate HAWK GREENWOOD MD December 17, 2017 5:07 pm
[2017-12-17] MEDS: ENOXAPARIN 40 MG/0.4 ML (LOVENOX) SYR SC SCH (18:07)
[2017-12-17] MEDS: TAMSULOSIN 0.4 MG (FLOMAX) CAP PO SCH (18:09)
[2017-12-17] MEDS: FINASTERIDE (PROSCAR) 5 MG TAB PO SCH (20:43)
[2017-12-17] MEDS: PANTOPRAZOLE 20 MG TABLET (PROTONIX) PO SCH (20:43)
[2017-12-17] MEDS: FLUTICASONE NASAL SPRAY (FLONASE) 16 GM BTL NS SCH (20:44)
[2017-12-17] MEDS: MONTELUKAST 10 MG (SINGULAIR) TAB PO SCH (20:53)
[2017-12-18] VITALS: BP 136/61
[2017-12-18] MEDS: RT-ALBUTEROL/IPRATROPIUM 3 ML (DUONEB) VIAL INH SCH ×6 (02:47→22:37)
[2017-12-18 05:08] LABS: BASOPHILS % (AUTO) 0 % (0-10); EOSINOPHILS # (AUTO) 0.2 10^3/uL (0.0-0.3); EOSINOPHILS % (AUTO) 2 % (0-10); HEMATOCRIT 32 % (40-54); HEMOGLOBIN 9.9 G/DL (13.3-17.7); LYMPHOCYTES # (AUTO) 2.2 X 10^3 (1.0-4.0); LYMPHOCYTES % (AUTO) 17 % (12-44); MEAN CORPUSCULAR HEMOGLOBIN 26 PG (25-34); MEAN CORPUSCULAR HGB CONC 31 G/DL (32-36); MEAN CORPUSCULAR VOLUME 84 FL (80-99); MONOCYTES # (AUTO) 1.7 X 10^3 (0.0-1.0); MONOCYTES % (AUTO) 13 % (0-12); NEUTROPHILS # (AUTO) 8.9 X 10^3 (1.8-7.8); NEUTROPHILS % (AUTO) 69 % (42-75); PLATELET COUNT 345 10^3/uL (130-400); RED BLOOD COUNT 3.81 10^6/uL (4.35-5.85); RED CELL DISTRIBUTION WIDTH 16.6 % (10.0-14.5); WHITE BLOOD COUNT 12.9 10^3/uL (4.3-11.0)
[2017-12-18 05:25] LABS: CREATININE SERUM 1.48 MG/DL (0.60-1.30); MAGNESIUM 2.3 MG/DL (1.8-2.4); PHOSPHORUS 3.3 MG/DL (2.3-4.7); POTASSIUM 4.1 MMOL/L (3.6-5.0)
[2017-12-18] MEDS: LEVOTHYROXINE 25 MCG (LEVOTHROID) TAB PO SCH (06:07)
[2017-12-18] MEDS: METOLAZONE 5 MG (ZAROXOLYN) TAB PO SCH (06:07)
[2017-12-18] MEDS: KCL 10 MEQ TAB (MICRO K) PO SCH ×2 (06:10→16:53)
[2017-12-18] MEDS: predniSONE 20 MG TAB PO SCH (06:10)
[2017-12-18] MEDS: inSUlin ASPART (NovoLOG) 1 UNIT/0.01 ML (CHARGE PER UNIT) SC SCH ×4 (06:11→20:53)
[2017-12-18] MEDS: CATHETER FLUSH 10 ML SYR IV SCH ×3 (06:11→22:00)
[2017-12-18] MEDS: TRIM/SULFAMETH 160/800 (SEPTRA DS) TAB PO SCH (06:12)
[2017-12-18] MEDS: FUROSEMIDE 40 MG/4 ML INJ (LASIX) IVP SCH ×2 (06:41→16:54)
[2017-12-18 07:52] VITALS: BP 136/61
[2017-12-18] MEDS: UMECLIDINIUM BROMIDE (INCRUSE ELLIPTA) 7'S IH SCH (07:54)
[2017-12-18] MEDS: ADVAIR HFA 115/21 MCG INHALER 8 GM IH SCH ×2 (07:54→18:49)
[2017-12-18 08:00] VITALS: BP 128/67
[2017-12-18] MEDS: LORATADINE (CLARITIN) 10 MG TAB PO SCH (08:36)
[2017-12-18] MEDS: PSEUDOEPHEDRINE HCL 30 MG (SUDAFED) TAB PO SCH (08:36)
[2017-12-18] MEDS: ROSUVASTATIN 5 MG (CRESTOR) TABLET PO SCH (08:36)
[2017-12-18] MEDS: SPIRONOLACTONE 25 MG (ALDACTONE) TAB PO SCH (08:37)
[2017-12-18] MEDS: meTOproloL SUCCINATE 50 MG (TOPROL XL) TAB PO SCH (08:37)
[2017-12-18] MEDS: DILTIAZEM 240 MG (CARDIZEM CD) CAP PO SCH (08:37)
[2017-12-18] MEDS: ASPIRIN 81 MG CHEW (CHILDREN'S ASA) PO SCH (08:37)
[2017-12-18] MEDS: inSUlin DETERMIR 1 UNIT/0.01 ML (LEVEMIR) CHARGE PER UNIT SQ SCH ×2 (08:38→20:53)
[2017-12-18] MEDS: MELOXICAM 7.5 MG (MOBIC) TABLET PO SCH (08:40)
--- NOTE | 2017-12-18 10:09 | Progress Note-Hospitalist ---
Subjective HPI/CC On Admission Date Seen by Provider: December 18, 2017 Time Seen by Provider: 09:15 CC: Dyspnea HPI: This is a 66yoWM clinic patient of mine who has had multiple hospital stays in the last 6 months for either congestive heart failure or exacerbation of COPD or pneumonia who presented to the ER with shortness of breath after his brought him on a ride around [facility]. He reports that he has had syncopal episodes at home several per day of which he failed to mention to me when I saw him on Sunday but his has made it clear that he is declining rapidly and became upset during this interview process. I did have Sid with palliative care with me during this visit because the severe medical conditions he has is apparently declining rapidly and I had a long talk with him about the fact that all of his medical problems had up to multiple issues resulting in a major decline in his status. He reports no evidence of any fever but did lose a lot of blood when he had a cut on his left foot and presented to the ER and had sutures but has been having bleeding episodes from different type of minor abrasion since that time and his hemoglobin is 7.0. He is also having abdominal cramping severe in nature that is occurring periodically that was present before gallbladder removal but has since returned at times. I will have Dr. Joy see him likely will need transfusion but volume overload is a concern. He was placed on empiric antibiotics for presumed pneumonia but chest x-ray reveals only atelectasis but will continue the current treatment that he is wheezing so I will add Solu-Medrol and initiate non-DKA insulin infusion protocol. Subjective/Events-last exam Patient doing much better EGD tomorrow morning by Dr. Joy We'll check iron level Hemoglobin stable at 9.9 Creatinine good at 1.4 Tentative discharge date for tomorrow afternoon or morning. Review of Systems Pulmonary: Dyspnea Objective Exam Vital Signs Vital Signs Date Time Temp Pulse Resp B/P (MAP) Pulse Ox O2 Delivery O2 Flow Rate FiO2 12/18/17 08:00 High Flow N/C 3.00 12/18/17 07:52 98 12/18/17 00:00 99.0 72 20 136/61 (86) 12/15/17 09:34 38 Capillary Refill : Less Than 3 Seconds General Appearance: No Apparent Distress, WD/WN, Chronically ill, Obese Respiratory: Lungs Clear, Normal Breath Sounds Cardiovascular: Irregularly Irregular, Tachycardia Extremity: Pedal Edema Neurologic/Psychiatric: Alert, Oriented x3, No Motor/Sensory Deficits, Normal Mood/Affect Results/Procedures Lab Laboratory Tests 12/18/17 04:23 Patient resulted labs reviewed. Assessment/Plan Assessment and Plan Assess & Plan/Chief Complaint Assessment: Acute on chronic respiratory failure but unable to modify anything to prevent readmits Exacerbation of COPD requiring IV steroids changed to PO steroids on 12/14/17 Diabetes mellitus [id number] with early DKA placed on non-DKA insulin infusion now placing on SSI and ac/hs accuchecks Profound anemia requiring discontinuation of anticoagulation temporarily requiring 3 units packed red blood cells since admission Chronic renal insufficiency Early pneumonia/bacterial bronchitis on Rhonda due to ESBL s/p completed 7 days of treatment Congestive heart failure Cardiomyopathy Constipation resolved Plan: Completed 5 units of blood since admission Lasix Oxygen Nebulizers Hold anticoagulation Prognosis guarded BM regimen Dr Benita MAYERS in am Check iron level Diagnosis/Problems Diagnosis/Problems (1) Respiratory failure Status: Resolved Qualifiers: Chronicity: acute Respiratory failure complication: hypoxia Qualified Codes: J96.01 - Acute respiratory failure with hypoxia (2) Anemia Status: Acute Qualifiers: Anemia type: iron deficiency Iron deficiency anemia type: chronic blood loss Qualified Codes: D50.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) (3) Abdominal pain Status: Resolved Qualifiers: Abdominal location: right upper quadrant Qualified Codes: R10.11 - Right upper quadrant pain (4) COPD (chronic obstructive pulmonary disease) with acute bronchitis Status: Chronic (5) Chronic atrial fibrillation Status: Chronic (6) Chronic kidney disease Status: Chronic Qualifiers: Chronic kidney disease stage: stage 3 (moderate) Qualified Codes: N18.3 - Chronic kidney disease, stage 3 (moderate) (7) CAD (coronary artery disease) Status: Chronic Qualifiers: Coronary Disease-Associated Artery/Lesion type: [place] artery [place] vs. transplanted heart: jackson heart Associated angina: without angina Qualified Codes: I25.10 - Atherosclerotic heart disease of jackson coronary artery without angina pectoris (8) IDDM (insulin dependent diabetes mellitus) Status: Chronic (9) Hypothyroidism Status: Chronic (10) Obesity hypoventilation syndrome Status: Chronic (11) JOSE MANUEL (obstructive sleep apnea) Status: Chronic (12) Poor prognosis Status: Chronic (13) Constipation Status: Resolved Qualifiers: Constipation type: slow transit constipation Qualified Codes: K59.01 - Slow transit constipation (14) GI bleed Status: Acute Qualifiers: GI bleed type/associated pathology: unspecified gastrointestinal hemorrhage type Qualified Codes: K92.2 - Gastrointestinal hemorrhage, unspecified Clinical Quality Measures DVT/VTE Risk/Contraindication: Risk Factor Score Per Nursin RFS Level Per Nursing on Admit: 2=Moderate CHAO PAT DO December 18, 2017 10:09
--- NOTE | 2017-12-18 10:14 | Progress Note-Cardiology ---
Cardiology SOAP Progress Note Subjective: Sitting up on the side of the bed. No c/o CP. States he feels stronger today. Feels SOB has improved. Objective: I&O/Vital Signs 12/18/17 12/18/17 12/18/17 12/18/17 07:52 07:52 08:00 08:00 Temp 97.0 Pulse 58 72 Resp 20 B/P (MAP) 128/67 (87) Pulse Ox 98 98 99 O2 Delivery Nasal Cannula NIV CPAP High Flow N/C O2 Flow Rate 3.00 3.00 12/18/17 12/18/17 12/18/17 11:37 14:53 16:08 Temp 98.7 Pulse 69 Resp 19 B/P (MAP) 173/78 (109) Pulse Ox 97 98 97 O2 Delivery Nasal Cannula Nasal Cannula High Flow N/C O2 Flow Rate 3.00 3.00 3.00 12/18/17 00:00 Intake Total 2400 ml Output Total 5050 ml Balance -2650 ml Weight (Pounds): 404 Weight (Ounces): 12.8 Weight (Calculated Kilograms): [phone] Constitutional: AAO x 3, well-developed, well-nourished Respiratory: chest is bilaterally symmetric, lungs clear to auscultation, wheezing (scattered exp wheezes), other (good air entry with prolonged expiratory phase) Cardiovascular: irregularly irregular, S1 and S2, systolic murmur Gastrointestional: soft, audible bowel sounds Extremities: other (bilat pitting 4 + and non-pitting LE edema) Neurologic/Psychiatric: grossly intact Skin: ecchymosis (Left leg from the groin area, inner thigh to knee; dressing to left foot ) Results/Procedures: Labs Laboratory Tests 12/17/17 16:56: Glucometer 403*H 12/17/17 20:26: Glucometer 249H 12/18/17 04:23: White Blood Count 12.9H, Red Blood Count 3.81L, Hemoglobin 9.9L, Hematocrit 32L , Mean Corpuscular Volume 84, Mean Corpuscular Hemoglobin 26, Mean Corpuscular Hemoglobin Concent 31L, Red Cell Distribution Width 16.6H, Platelet Count 345, Mean Platelet Volume 10.0, Neutrophils (%) (Auto) 69, Lymphocytes (%) (Auto) 17 , Monocytes (%) (Auto) 13H, Eosinophils (%) (Auto) 2, Basophils (%) (Auto) 0, Neutrophils # (Auto) 8.9H, Lymphocytes # (Auto) 2.2, Monocytes # (Auto) 1.7H, Eosinophils # (Auto) 0.2, Basophils # (Auto) 0.0, Sodium Level 139, Potassium Level 4.1, Chloride Level 97L, Carbon Dioxide Level 31, Anion Gap 11, Blood Urea Nitrogen 56H, Creatinine 1.48H, Estimat Glomerular Filtration Rate 47, BUN/ Creatinine Ratio 38, Glucose Level 180H, Calcium Level 9.0, Phosphorus Level 3.3 , Magnesium Level 2.3, Iron Level 59 12/18/17 05:25: Glucometer 226H 12/18/17 11:20: Glucometer 276H Microbiology 12/12/17 Blood Culture - Final, Complete No growth 12/15/17 MRSA Screen - Final, Complete MRSA not isolated A/P: Assessment: Dyspnea likely multifactorial - ac on chronic diastolic CHF, ac exacerbation of COPD, pneumonia and obesity hypoventilation syndrome Obesity (BMI approx 62) with obesity-hypoventilation Acute on chr exacerbation of COPD due to pneumonia - management by Dr Hutton Ac on chronic diastolic CHF - continue diuretic regimen Persistent a-fib first diagnosed in early February 2016, rate controlled Anemia of undetermined etiology; ongoing occult bleed suspected - management by Dr. Hutton of medical services OAC with Eliquis - currently being held d/t anemia that is suspected to be due to occult bleeding and that is requiring multiple blood transfusions CAD with a h/o CABG in 2006 at [facility] in [place], [place]. On cardiac cath of 11-11-15: Multivessel coronary disease including multiple more than 90% stenosis of the proximal and mid left anterior descending artery. The mid to distal left anterior descending artery is protected with a widely patent left internal mammary artery graft. The left circumflex artery had 99% ostial/ proximal stenosis to which successful stenting was carried out with Promus Premier 3.5 x 20 mm stent with a reduction of stenosis to 0% residual. The distal left circumflex and its obtuse marginal branches have diffuse moderate to moderately severe disease which were not intervened on. The right coronary artery is dominant and had 90% proximal stenosis to which successful stenting was carried out with Promus Premier 2.75 x 28 mm stent with reduction of stenosis to 0% residual. The distal right coronary artery has multiple stenoses of 50 to 60%, which were not intervened on. Cardiac cath of 11-11-15 showed well preserved global left ventricular systolic function and ejection fraction of 55 to 60%. Elevated left ventricular end- diastolic pressure which was measured at approximately 20 mmHg. No significant mitral regurgitation. ABIs on 01/13/16 at [place], [place]: 1.1 on both sides Echocardiogram of 09/14/17 (Dr Costello): LVEF 55-65%, dilated LA, supotimal study Chronic bilat leg swelling, likely due to venous insuff, no evidence of DVT on on venous duplex of 09/13/17 Hypertension COPD Quit smoking in early DM II Chronic renal insufficiency - chronic likely due in some part to diabetic nephropathy Sleep apnea syndrome - CPAP therapy - managed by Dr. Paris Minimal carotid dz on u/s of November 2015 Electrolyte abnormalities - likely d/t diuretic tx - replace Plan: * Complex management issue * Transfuse to maintain Hgb 10 or greater - after 5 units PRBC H/H had improved to greater than 10 - H/H has stabilized * Continue to hold OAC until source of bleeding has been determined and treated * Stop Plavix since last stenting was greater than 2 years ago * Continue low dose ASA d/t CAD * Continue enoxaparin for DVT prophylaxis * Investigate anemia - Dr. Joy has been consulted per medical services - occult (+) stool - scope is planned for tomorrow * Continue IV/oral diuretics for now - consider changing to oral Lasix soon * Monitor lab closely and replace electrolytes as indicated * Pneumonia per medical services * Replace electrolytes * Palliative care consult per medical services - pt/spouse have declined services at this time Physician Assessment Physician Assessment Shortness of breath and leg swelling somewhat improved. No cp or palp or syncope Lungs: dec bs at bases Cor: irreg Ext: mod bilat leg edema A&R * As documented in our note above that I updated (italics) and as noted below * I discussed his CV issues with him * Monitor labs BENJAMIN ARROYO WINDING LATHE OPERATOR December 18, 2017 10:14 CATY PENALOZA MD [facility] December 18, 2017 16:27
--- NOTE | 2017-12-18 11:12 | Occupational Ther Daily Note ---
OT Current Status-Daily Note Subjective Pt alert, sitting in motorized w/c talking on the phone. Pt agreed to therapy. No c/o pain at this time. Mental Status/Objective Patient Orientation: Person, Place, Time, Situation Functional [place] Measure 0=Not Assessed/NA 4=Minimal Assistance 1=Total Assistance 5=Supervision or Setup 2=Maximal Assistance 6=Modified [place] 3=Moderate Assistance 7=Complete Major ADL-Treatment Toileting (FIM): 6 (Pt able to complete own toileting. Able to manipulate clothing using grabbars to stabilize self.) Toilet/Commode Transfer (FIM): 6 (Pt ambulated into bathroom using mulligan and countertops for hand holds. Used grabbars to sit on toilet.) Other Treatment Pt given theraband and HEP. Pt demonstrated ability to complete 5 theraband exercises. Pt instructed to complete 10 reps multiple times throughout day to increase strength and activity tolerance for daily functional tasks. Pt left in care of PT. All needs met in room. OT Short Term Goals Short Term Goals 1=Demonstrate adherence to instructed precautions during ADL tasks. 2=Patient will verbalize/demonstrate understanding of assistive devices/ modifications for ADL. 3=Patient will improve strength/tolerance for activity to enable patient to perform ADL's. OT Prison Goals Prison Goals Time Frame: December 24, 2017 Eating (FIM): 6 Grooming(FIM): 6 Bathing(FIM): 5 Upper Body Dressing(FIM): 6 Lower Body Dressing(FIM): 6 Toileting(FIM): 6 Transfers (B,C,W/C) (FIM): 6 Toilet/Commode Transfer(FIM): 6 Shower Transfer(FIM): 5 Additional Goals: 1-Demonstrate ADL Tasks, 2-Verbalize Understanding, 3- ImproveStrength/Rl 1=Demonstrate adherence to instructed precautions during ADL tasks. 2=Patient will verbalize/demonstrate understanding of assistive devices/ modifications for ADL. 3=Patient will improve strength/tolerance for activity to enable patient to perform ADL's. OT Education/Plan Discharge Recommendations Plan/Recommendations: Continue POC Treatment Plan/Plan of Care Patient would benefit from OT for education, treatment and training to promote independence in ADL's, mobility, safety and/or upper extremity function for ADL' s. Plan of Care: ADL Retraining, Caregiver Training, Functional Mobility, UE Funct Exercise/Act Treatment Duration: December 24, 2017 Frequency: 5 times per week Estimated Hrs Per Day: .25 hour per day Agreement: Yes Rehab Potential: Fair Time/GCodes Start Time: 10:45 Stop Time: 11:00 Total Time Billed (hr/min): 15 Billed Treatment Time 1 visit-FA 1 (15 min) CONNER GUEVARA December 18, 2017 11:12
--- NOTE | 2017-12-18 11:29 | Physical Therapy Daily Note ---
PT Daily Note-Current Subjective Patient just complete with OT and reports fatigue. Agrees to PT. Pain Numeric Pain Scale: 5-Moderate Pain Location: Right, Left Location Body Site: Knee Pain Description: Chronic Mental Status Patient Orientation: Normal For Age Attachments: Oxygen Transfers Functional [place] Measure 0=Not Assessed/NA 4=Minimal Assistance 1=Total Assistance 5=Supervision or Setup 2=Maximal Assistance 6=Modified [place] 3=Moderate Assistance 7=Complete IndependenceIRFPAI Quality Coding Scale 6 Independent with activity with or without an assistive device 5 Patient requires set up or clean up by helper. Patient completes activity by themselves 4 Supervision or touching assist (CGA). [place] provide cues , steadying assist 3 The helper provides less than half the effort to complete the activity 2 The helper provides more than half the effort to complete the activity 1 Dependent. The helper does all the effort to complete an activity 7 Patient refused to complete or attempt activity 9 The patient did not perform the activity before the current illness or injury 88 Not attempted due to Medical conditions or safety concerns Transfers (B, C, W/C) (FIM): 6 Scootin Sit to/from Stand: 6 Weight Bearing Right Lower Extremity: Right Full Weight Bearing Full Weight Bearing Gait Training Gait (FIM): 6 Distance (FIM): 3=150 ft Distance: 150' Gait Level of Assist: 6 Gait Assistive Device: FWW trunk flexed posture in stand with FWW use. PT assist for O2 tank. Assessment Patient is currently at [facility] with gross motor skills. PT will continue to address functional mobility to improve pulmonary function. PT Student Outreach Coordinator Goals Student Outreach Coordinator Goals PT Student Outreach Coordinator Goals Time Frame: December 26, 2017 Transfers (B,C,W/C) (FIM): 6 Gait (FIM): 1 Gait distance (FIM): 1=up to 49 ft Distance: 45' x 4 Gait Level of Assist: 6 Gait Assistive Device: FWW PT Plan Treatment/Plan Treatment Plan: Continue Plan of Care Treatment Plan: Bed Mobility, Education, Functional Activity Rl, Functional Strength, Gait, Safety, Therapeutic Exercise, Transfers Treatment Duration: December 26, 2017 Frequency: 6 times per week Estimated Hrs Per Day: .25 hour per day Patient and/or Family Agrees t: Yes Time/GCodes Time In: 1100 Time Out: 1108 Total Billed Treatment Time: 8 Total Billed Treatment 1 visit FA 8 min RIO REYNOLDS PT December 18, 2017 11:29
[2017-12-18 16:08] VITALS: BP 173/78
[2017-12-18] MEDS: ENOXAPARIN 40 MG/0.4 ML (LOVENOX) SYR SC SCH (16:53)
[2017-12-18] MEDS: TAMSULOSIN 0.4 MG (FLOMAX) CAP PO SCH (16:53)
--- NOTE | 2017-12-18 18:43 | Progress Note (SOAP) ---
Subjective Date Seen by Provider: December 18, 2017 Time Seen by Provider: 12:00 Subjective/Events-last exam doing well. no new complaints. having bowel movements with no red blood or dark tarry. Hb has been stable with slight increase to 9.9 today. will be started on PO iron. Objective Exam Vital Signs Date Time Temp Pulse Resp B/P (MAP) Pulse Ox O2 Delivery O2 Flow Rate FiO2 12/18/17 16:08 98.7 69 19 173/78 (109) 97 High Flow N/C 3.00 12/18/17 14:53 98 Nasal Cannula 3.00 12/18/17 11:37 97 Nasal Cannula 3.00 12/18/17 08:00 High Flow N/C 3.00 12/18/17 08:00 97.0 72 20 128/67 (87) 99 NIV CPAP 12/18/17 07:52 98 Nasal Cannula 3.00 12/18/17 07:52 58 98 12/18/17 02:48 96 NIV CPAP 4.00 12/18/17 00:00 99.0 72 20 136/61 (86) 95 NIV CPAP 12/17/17 22:26 94 NIV CPAP 4.00 12/17/17 20:00 High Flow N/C 3.00 I & O 12/18/17 07:00 Intake Total 3060 ml Output Total 6050 ml Balance -2990 ml Capillary Refill : Less Than 3 Seconds General Appearance: No Apparent Distress HEENT: PERRL/EOMI, TMs Normal Neck: Full Range of Motion Respiratory: Decreased Breath Sounds, Wheezing Cardiovascular: Regular Rate, Rhythm Gastrointestinal: normal bowel sounds, non tender, soft Extremity: Normal Capillary Refill Neurologic/Psychiatric: Alert, Oriented x3 Skin: Normal Color Lymphatic: No Adenopathy Results Lab Laboratory Tests 12/17/17 20:26: Glucometer 249H 12/18/17 04:23: White Blood Count 12.9H, Red Blood Count 3.81L, Hemoglobin 9.9L, Hematocrit 32L , Mean Corpuscular Volume 84, Mean Corpuscular Hemoglobin 26, Mean Corpuscular Hemoglobin Concent 31L, Red Cell Distribution Width 16.6H, Platelet Count 345, Mean Platelet Volume 10.0, Neutrophils (%) (Auto) 69, Lymphocytes (%) (Auto) 17 , Monocytes (%) (Auto) 13H, Eosinophils (%) (Auto) 2, Basophils (%) (Auto) 0, Neutrophils # (Auto) 8.9H, Lymphocytes # (Auto) 2.2, Monocytes # (Auto) 1.7H, Eosinophils # (Auto) 0.2, Basophils # (Auto) 0.0, Sodium Level 139, Potassium Level 4.1, Chloride Level 97L, Carbon Dioxide Level 31, Anion Gap 11, Blood Urea Nitrogen 56H, Creatinine 1.48H, Estimat Glomerular Filtration Rate 47, BUN/ Creatinine Ratio 38, Glucose Level 180H, Calcium Level 9.0, Phosphorus Level 3.3 , Magnesium Level 2.3, Iron Level 59 12/18/17 05:25: Glucometer 226H 12/18/17 11:20: Glucometer 276H 12/18/17 16:08: Glucometer 342H Microbiology 12/12/17 Blood Culture - Final, Complete No growth 12/15/17 MRSA Screen - Final, Complete MRSA not isolated Assessment/Plan Assessment/Plan Assess & Plan/Chief Complaint exacerbation COPD with pneumonia and anemia. no clinical bleeding however subnormal Hb elevation after 5 units PRBC. off PO anticoagulants now and only on lovenox for DVT prophylaxis. states no red blood per rectum but did have several episodes dark/black stools in past 6 weeks. will plan for EGD on Sunday(12/19) and remove previously placed sutures left foot at same time. if no major pathology found on EGD with stable Hb, may be discharged to location of preference per PMD. Clinical Quality Measures DVT/VTE Risk/Contraindication: Risk Factor Score Per Nursin RFS Level Per Nursing on Admit: 2=Moderate HAWK GREENWOOD MD December 18, 2017 18:43
[2017-12-18] MEDS: PANTOPRAZOLE 20 MG TABLET (PROTONIX) PO SCH (20:46)
[2017-12-18] MEDS: FLUTICASONE NASAL SPRAY (FLONASE) 16 GM BTL NS SCH (20:46)
[2017-12-18] MEDS: FINASTERIDE (PROSCAR) 5 MG TAB PO SCH (20:47)
[2017-12-18] MEDS: MONTELUKAST 10 MG (SINGULAIR) TAB PO SCH (20:47)
[2017-12-19] VITALS: BP 143/78
[2017-12-19] MEDS: RT-ALBUTEROL/IPRATROPIUM 3 ML (DUONEB) VIAL INH SCH ×3 (02:28→11:49)
[2017-12-19 06:06] LABS: BASOPHILS % (AUTO) 0 % (0-10); EOSINOPHILS # (AUTO) 0.3 10^3/uL (0.0-0.3); EOSINOPHILS % (AUTO) 2 % (0-10); HEMATOCRIT 33 % (40-54); HEMOGLOBIN 10.4 G/DL (13.3-17.7); LYMPHOCYTES # (AUTO) 2.4 X 10^3 (1.0-4.0); LYMPHOCYTES % (AUTO) 17 % (12-44); MEAN CORPUSCULAR HEMOGLOBIN 26 PG (25-34); MEAN CORPUSCULAR HGB CONC 31 G/DL (32-36); MEAN CORPUSCULAR VOLUME 84 FL (80-99); MEAN PLATELET VOLUME 9.8 FL (7.4-10.4); MONOCYTES # (AUTO) 1.7 X 10^3 (0.0-1.0); MONOCYTES % (AUTO) 12 % (0-12); NEUTROPHILS # (AUTO) 9.7 X 10^3 (1.8-7.8); NEUTROPHILS % (AUTO) 69 % (42-75); PLATELET COUNT 357 10^3/uL (130-400); RED BLOOD COUNT 3.96 10^6/uL (4.35-5.85); RED CELL DISTRIBUTION WIDTH 16.5 % (10.0-14.5); WHITE BLOOD COUNT 14.2 10^3/uL (4.3-11.0)
[2017-12-19] MEDS: LEVOTHYROXINE 25 MCG (LEVOTHROID) TAB PO SCH (06:12)
[2017-12-19] MEDS: CATHETER FLUSH 10 ML SYR IV SCH (06:12)
[2017-12-19] MEDS: METOLAZONE 5 MG (ZAROXOLYN) TAB PO SCH (06:13)
[2017-12-19 06:28] LABS: CALCIUM 9.4 MG/DL (8.5-10.1); CREATININE SERUM 1.29 MG/DL (0.60-1.30); MAGNESIUM 2.3 MG/DL (1.8-2.4); PHOSPHORUS 3.6 MG/DL (2.3-4.7); POTASSIUM 3.7 MMOL/L (3.6-5.0)
[2017-12-19] MEDS ORDERED: DEXTROSE 50% 50 ML (IMS) SYR ONE (06:30)
[2017-12-19] MEDS: inSUlin ASPART (NovoLOG) 1 UNIT/0.01 ML (CHARGE PER UNIT) SC SCH ×2 (06:40→12:30)
[2017-12-19] MEDS ORDERED: DEXTROSE 50% 50 ML (IMS) SYR IV ONE (06:45)
[2017-12-19] MEDS: FUROSEMIDE 40 MG/4 ML INJ (LASIX) IVP SCH (06:50)
[2017-12-19] MEDS: ADVAIR HFA 115/21 MCG INHALER 8 GM IH SCH (07:49)
[2017-12-19] MEDS: UMECLIDINIUM BROMIDE (INCRUSE ELLIPTA) 7'S IH SCH (07:49)
[2017-12-19 08:00] VITALS: BP 163/81
--- NOTE | 2017-12-19 08:09 | Progress Note-Cardiology ---
Cardiology SOAP Progress Note Subjective: Slow and modest improvement of shortness of breath and leg swelling Objective: I&O/Vital Signs 12/18/17 12/18/17 12/19/17 12/19/17 20:10 22:39 00:00 02:33 Temp 98.2 Pulse 74 Resp 19 B/P (MAP) 143/78 (99) Pulse Ox 96 96 96 O2 Delivery High Flow N/C Nasal Cannula NIV CPAP Nasal Cannula O2 Flow Rate 3.00 3.00 3.00 3.00 12/19/17 07:49 Pulse Ox 92 O2 Delivery Nasal Cannula O2 Flow Rate 3.00 12/19/17 00:00 Intake Total 1655 ml Output Total 4950 ml Balance -3295 ml Weight (Pounds): 404 Weight (Ounces): 6.2 Weight (Calculated Kilograms): [phone] Constitutional: AAO x 3, well-developed, well-nourished Respiratory: chest is bilaterally symmetric, lungs clear to auscultation, wheezing (scattered exp wheezes), other (good air entry with prolonged expiratory phase) Cardiovascular: irregularly irregular, S1 and S2, systolic murmur Gastrointestional: soft, audible bowel sounds Extremities: other (bilat pitting 4 + and non-pitting LE edema) Neurologic/Psychiatric: grossly intact Skin: ecchymosis (Left leg from the groin area, inner thigh to knee; dressing to left foot ) Results/Procedures: Labs Laboratory Tests 12/18/17 11:20: Glucometer 276H 12/18/17 16:08: Glucometer 342H 12/18/17 20:42: Glucometer 233H 12/19/17 05:40: Sodium Level 140, Potassium Level 3.7, Chloride Level 95L, Carbon Dioxide Level 33H, Anion Gap 12, Blood Urea Nitrogen 56H, Creatinine 1.29, Estimat Glomerular Filtration Rate 55, BUN/Creatinine Ratio 43, Glucose Level 44*L, Calcium Level 9.4, Phosphorus Level 3.6, Magnesium Level 2.3 12/19/17 05:46: White Blood Count 14.2H, Red Blood Count 3.96L, Hemoglobin 10.4L, Hematocrit 33L , Mean Corpuscular Volume 84, Mean Corpuscular Hemoglobin 26, Mean Corpuscular Hemoglobin Concent 31L, Red Cell Distribution Width 16.5H, Platelet Count 357, Mean Platelet Volume 9.8, Neutrophils (%) (Auto) 69, Lymphocytes (%) (Auto) 17, Monocytes (%) (Auto) 12, Eosinophils (%) (Auto) 2, Basophils (%) (Auto) 0, Neutrophils # (Auto) 9.7H, Lymphocytes # (Auto) 2.4, Monocytes # (Auto) 1.7H, Eosinophils # (Auto) 0.3, Basophils # (Auto) 0.0 12/19/17 06:54: Glucometer 90 Microbiology 12/12/17 Blood Culture - Final, Complete No growth 12/15/17 MRSA Screen - Final, Complete MRSA not isolated Laboratory Tests 12/18/17 04:23 12/19/17 05:40 12/19/17 05:46 A/P: Assessment: Dyspnea likely multifactorial - ac on chronic diastolic CHF, ac exacerbation of COPD, pneumonia and obesity hypoventilation syndrome Obesity (BMI approx 62) with obesity-hypoventilation Acute on chr exacerbation of COPD due to pneumonia - management by Dr Hutton Ac on chronic diastolic CHF - continue diuretic regimen Persistent a-fib first diagnosed in early February 2016, rate controlled Anemia of undetermined etiology; ongoing occult bleed suspected - management by Dr. Hutton of medical services OAC with Eliquis - currently being held d/t anemia that is suspected to be due to occult bleeding and that is requiring multiple blood transfusions CAD with a h/o CABG in [address] [facility] in [place], [place]. On cardiac cath of 11-11-15: Multivessel coronary disease including multiple more than 90% stenosis of the proximal and mid left anterior descending artery. The mid to distal left anterior descending artery is protected with a widely patent left internal mammary artery graft. The left circumflex artery had 99% ostial/ proximal stenosis to which successful stenting was carried out with Promus Premier 3.5 x 20 mm stent with a reduction of stenosis to 0% residual. The distal left circumflex and its obtuse marginal branches have diffuse moderate to moderately severe disease which were not intervened on. The right coronary artery is dominant and had 90% proximal stenosis to which successful stenting was carried out with Promus Premier 2.75 x 28 mm stent with reduction of stenosis to 0% residual. The distal right coronary artery has multiple stenoses of 50 to 60%, which were not intervened on. Cardiac cath of 11-11-15 showed well preserved global left ventricular systolic function and ejection fraction of 55 to 60%. Elevated left ventricular end- diastolic pressure which was measured at approximately 20 mmHg. No significant mitral regurgitation. ABIs on 01/13/16 at [place], [place]: 1.1 on both sides Echocardiogram of 09/14/17 (Dr Costello): LVEF 55-65%, dilated LA, supotimal study Chronic bilat leg swelling, likely due to venous insuff, no evidence of DVT on on venous duplex of 09/13/17 Hypertension COPD Quit smoking in early DM II Chronic renal insufficiency - chronic likely due in some part to diabetic nephropathy Sleep apnea syndrome - CPAP therapy - managed by Dr. Paris Minimal carotid dz on u/s of November 2015 Electrolyte abnormalities - likely d/t diuretic tx - replace Plan: * Complex management issue * Continue to hold OAC until source of bleeding has been determined and treated * Stop Plavix since last stenting was greater than 2 years ago * Continue low dose ASA d/t CAD * Continue enoxaparin for DVT prophylaxis * Investigate anemia - Dr. Joy has been consulted per medical services - occult (+) stool - scope is planned * Continue IV/oral diuretics for now - consider changing to oral Lasix soon * Monitor lab closely and replace electrolytes as indicated * Pneumonia per medical services CATY PENALOZA MD FACP FAC CCDS December 19, 2017 08:09
[2017-12-19] MEDS ORDERED: MIDAZOLAM 2 MG/2 ML (VERSED) VIAL ONE ×2 (10:20)
[2017-12-19] MEDS ORDERED: fentaNYL INJECTION 100 MCG/2 ML AMP ONE (10:21)
[2017-12-19] MEDS ORDERED: HURRICAINE EXT TUBE (BENZOCAINE) ONE (10:21)
[2017-12-19] MEDS ORDERED: LIDOCAINE JELLY 2% (XYLOCAINE) 5 ML TUBE ONE (10:21)
[2017-12-19] MEDS: fentaNYL INJECTION 100 MCG/2 ML AMP IVP PRN ×2 (10:30→10:45)
[2017-12-19] MEDS: MIDAZOLAM 2 MG/2 ML (VERSED) VIAL IVP PRN ×2 (10:40→10:50)
[2017-12-19] MEDS ORDERED: LACTATED RINGERS 1,000 ML IV STA (11:05)
--- NOTE | 2017-12-19 11:07 | Occ Therapy Progress Note ---
Therapy Progress Note Attempted to see pt. Pt was going for and EGD procedure. Long handle sponge and toileting tongs given to the pt. Pt and were given a verbal description of each piece of AE and use. [id number], 1 visit CONNER GUEVARA December 19, 2017 11:07
[2017-12-19] MEDS ORDERED: LIDOCAINE JELLY 2% (XYLOCAINE) 5 ML TUBE MM PRN (11:15)
[2017-12-19] MEDS ORDERED: HURRICAINE EXT TUBE (BENZOCAINE) XX PRN (11:15)
[2017-12-19] MEDS ORDERED: LACTATED RINGERS 1,000 ML IV ONE (11:16)
--- NOTE | 2017-12-19 11:19 | Conscious Sedation/ASA ---
Conscious Sedation Pre-Proced Time Reviewed: 09:00 ASA Class: 3 Airway Mallampati Classification: (campo appropriate class) I. II. III, IV Lungs Heart ASA score ASA 1: a normal healthy patient ASA 2: a patient with a mild systemic disease (mid diabetes, controlled hypertension, obesity ASA 3: a patient with a severe systemic disease that limits activity (angina , COPD, prior Myocardial infarction) ASA 4: a patient with an incapacitating disease that is a constant threat to life (CHF, renal failure) ASA 5: a moribund patient not expected to survive 24 hrs. (ruptured aneurysm) ASA 6: a declared brain patient whose organs are being harvested. For emergent operations, add the letter E after the classification Grade 3 Sedation Plan: Analgesia, Amnesia, Plan communicated to team members, Discussed options with patient/fam, Discussed risks with patient/fam Note The patient is an appropriate candidate to undergo the planned procedure, sedation, and anesthesia. The patient immediately re-assessed prior to indication. HAWK GREENWOOD MD December 19, 2017 11:19 am
--- NOTE | 2017-12-19 11:20 | Progress Note-Pre Operative ---
Pre-Operative Progress Note H&P Reviewed The H&P was reviewed, patient examined and no changes noted. Date Seen by Provider: December 19, 2017 Time Seen by Provider: 09:00 Date H&P Reviewed: December 19, 2017 Time H&P Reviewed: 09:00 Pre-Operative Diagnosis: persistent anemia with hx dark stools HAWK GREENWOOD MD December 19, 2017 11:19 am
--- NOTE | 2017-12-19 11:21 | Progress Note-Post Operative ---
Post-Operative Progess Note Surgeon (s)/Contract Consultant (s) Surgeon HAWK GREENWOOD MD Contract Consultant: none Pre-Operative Diagnosis persistent anemia with hx dark stools Post-Operative Diagnosis distal 2/3 esophageal candidiasis, reflux esophagitis(class B), small HH(1cm), moderate diffuse gastritis, no active bleed. Procedure & Operative Findings Date of Procedure 12/19/17 Procedure Performed/Findings EGD with bx and brushings Anesthesia Type CS Estimated Blood Loss Estimated blood loss (mL): minimal Specimens/Packing Specimens Removed esophageal brushings, GE jxn, antrum HAWK GREENWOOD MD December 19, 2017 11:21 am
[2017-12-19] MEDS ORDERED: fluCOnazole (DIFLUCAN) 100 MG TAB PO NR (11:36)
[2017-12-19] MEDS ORDERED: ASPI-999 PO (11:43)
[2017-12-19] MEDS ORDERED: FLUC100T PO (11:43)
[2017-12-19] MEDS ORDERED: FURO80TA83 PO (11:43)
[2017-12-19] MEDS ORDERED: PRD20T PO (11:43)
--- NOTE | 2017-12-19 11:47 | Discharge Summary-Hospitalist ---
Diagnosis/Chief Complaint Date of Admission December 11, 2017 at 23:40 Date of Discharge Discharge Date: December 19, 2017 Admission Diagnosis Dyspnea due to early pneumonia/bacterial bronchitis with exacerbation of COPD with severe anemia Plan: Transfuse 1 unit of blood Consult Dr. Joy Reconcile all home meds High-dose steroids with non-DKA insulin infusion protocol Palliative care consult Poor prognosis long-term Discharge Diagnosis Assessment: Acute on chronic respiratory failure but unable to modify anything to prevent readmits Exacerbation of COPD requiring IV steroids changed to PO steroids on 12/14/17 Diabetes mellitus [id number] with early DKA placed on non-DKA insulin infusion now placing on SSI and ac/hs accuchecks Profound anemia requiring discontinuation of anticoagulation temporarily requiring 3 units packed red blood cells since admission Chronic renal insufficiency Early pneumonia/bacterial bronchitis on Rhonda due to ESBL s/p completed 7 days of treatment Congestive heart failure Cardiomyopathy Constipation resolved Plan: Completed 5 units of blood since admission Lasix Oxygen Nebulizers Hold anticoagulation Prognosis guarded BM regimen Dr Joy EGD in am Check iron level (1) Respiratory failure Status: Resolved (2) Anemia Status: Acute (3) Abdominal pain Status: Resolved (4) COPD (chronic obstructive pulmonary disease) with acute bronchitis Status: Chronic (5) Chronic atrial fibrillation Status: Chronic (6) Chronic kidney disease Status: Chronic (7) CAD (coronary artery disease) Status: Chronic (8) IDDM (insulin dependent diabetes mellitus) Status: Chronic (9) Hypothyroidism Status: Chronic (10) Obesity hypoventilation syndrome Status: Chronic (11) JOSE MANUEL (obstructive sleep apnea) Status: Chronic (12) Poor prognosis Status: Chronic (13) Constipation Status: Resolved (14) GI bleed Status: Acute (15) Esophageal yeast infection Status: Acute Discharge Summary Discharge Physical Exam Allergies: Coded Allergies: Smxltpc-Ose-Dsu Reductase Inhibitor (Verified Allergy, Unknown, 10/15/17) codeine (Verified Allergy, Unknown, 10/15/17) fish oil (Verified Allergy, Unknown, 10/15/17) Vitals & I&Os Vital Signs Date Time Temp Pulse Resp B/P (MAP) Pulse Ox O2 Delivery O2 Flow Rate FiO2 12/19/17 11:49 93 Nasal Cannula 4.00 12/19/17 08:00 95.5 84 18 163/81 (108) 12/15/17 09:34 38 General Appearance: Alert, Oriented X3, Cooperative, Other (morbid obesity, end stage status) Respiratory: Normal Air Movement, Other (subtle wheeze noted) Cardiovascular: Other (Irr Irr) Neuro: Normal Gait Psych/Mental Status: Mental Status NL, Mood NL Hospital Course Hospital course: Patient had a very complex and lengthy hospital course. He was admitted for shortness of breath found to have ESBL acute bronchitis with exacerbation of COPD and severe anemia. Anticoagulation was eventually stopped due to risk outweighing the benefits and required 5 units of packed red blood cell transfusion during the hospital course. He was given Lasix IV for severe volume overload since the Bumex that he was sent out on as a change of medication to help modify readmission risk was unsuccessful. Plavix and aspirin were maintained but anticoagulation will be on hold until patient has a follow-up with Dr. Bishop. Patient completed Meropenem seven-day treatment while hospitalized. Insulin drip for non-DKA status was maintained for several days due to the significantly elevated blood sugars from IV Solu-Medrol. Iron level was checked and it was 59. Overall patient improved enough to undergo EGD by Dr. Joy which revealed no evidence of bleeding although Hemoccult was positive and found that he had esophageal yeast infection so that will be treated with Diflucan once a day for 2 weeks. Overall his prognosis remains very poor patient and the family did not want to discuss hospice or end-of-life care and even wanted to change sizing sprayer to Miguel Angel sizing sprayer who we have seen before. I think given the fact that the dissatisfaction that patient and his have which is not related to the expertise and competency of the physicians in this hospital he will likely request to go to [facility] if and when he is hospitalized again which will be his choice and entirely open to whatever helps the patient and wherever he is comfortable obtaining his care. I will see him close follow-up on Sunday in my clinic and if he requires hospital stay I will send to [facility]. Labs (last 24 hrs) Laboratory Tests 12/18/17 16:08: Glucometer 342H 12/18/17 20:42: Glucometer 233H 12/19/17 05:40: Sodium Level 140, Potassium Level 3.7, Chloride Level 95L, Carbon Dioxide Level 33H, Anion Gap 12, Blood Urea Nitrogen 56H, Creatinine 1.29, Estimat Glomerular Filtration Rate 55, BUN/Creatinine Ratio 43, Glucose Level 44*L, Calcium Level 9.4, Phosphorus Level 3.6, Magnesium Level 2.3 12/19/17 05:46: White Blood Count 14.2H, Red Blood Count 3.96L, Hemoglobin 10.4L, Hematocrit 33L , Mean Corpuscular Volume 84, Mean Corpuscular Hemoglobin 26, Mean Corpuscular Hemoglobin Concent 31L, Red Cell Distribution Width 16.5H, Platelet Count 357, Mean Platelet Volume 9.8, Neutrophils (%) (Auto) 69, Lymphocytes (%) (Auto) 17, Monocytes (%) (Auto) 12, Eosinophils (%) (Auto) 2, Basophils (%) (Auto) 0, Neutrophils # (Auto) 9.7H, Lymphocytes # (Auto) 2.4, Monocytes # (Auto) 1.7H, Eosinophils # (Auto) 0.3, Basophils # (Auto) 0.0 12/19/17 06:54: Glucometer 90 12/19/17 11:43: Glucometer 91 Microbiology 12/12/17 Blood Culture - Final, Complete No growth 12/15/17 MRSA Screen - Final, Complete MRSA not isolated Patient resulted labs reviewed. Pending Labs Laboratory Tests 12/19/17 05:40: Sodium Level 140, Potassium Level 3.7, Chloride Level 95, Carbon Dioxide Level 33, Anion Gap 12, Blood Urea Nitrogen 56, Creatinine 1.29, Estimat Glomerular Filtration Rate 55, BUN/Creatinine Ratio 43, Glucose Level 44, Calcium Level 9.4 , Phosphorus Level 3.6, Magnesium Level 2.3 12/19/17 05:46: White Blood Count 14.2, Red Blood Count 3.96, Hemoglobin 10.4, Hematocrit 33, Mean Corpuscular Volume 84, Mean Corpuscular Hemoglobin 26, Mean Corpuscular Hemoglobin Concent 31, Red Cell Distribution Width 16.5, Platelet Count 357, Mean Platelet Volume 9.8, Neutrophils (%) (Auto) 69, Lymphocytes (%) (Auto) 17, Monocytes (%) (Auto) 12, Eosinophils (%) (Auto) 2, Basophils (%) (Auto) 0, Neutrophils # (Auto) 9.7, Lymphocytes # (Auto) 2.4, Monocytes # (Auto) 1.7, Eosinophils # (Auto) 0.3, Basophils # (Auto) 0.0 12/19/17 06:54: Glucometer 90 12/19/17 11:43: Glucometer 91 Discussion & Recommendations Discharge Planning: >30 minutes discharge planning Discharge Home Medications: Active Scripts Active Diflucan (Fluconazole) 100 Mg Tablet 100 Mg PO DAILY Prednisone 20 Mg Tab 20 Mg PO DAILY Lasix (Furosemide) 80 Mg Tablet 80 Mg PO BID Aspirin 81 Mg Tab.chew 81 Mg PO DAILY@0900 Bumetanide 1 Mg Tablet 2 Mg PO DAILY@0700 Reported Fluticasone Propionate 16 Gm Corn.susp 2 Sprays NS HS Incruse Ellipta (Umeclidinium [place]) 62.5 Mcg Blst.w.dev 1 Puff INH DAILY Nexium 24Hr (Esomeprazole Magnesium) 20 Mg Capsule.dr 20 Mg PO HS Proair Hfa (Albuterol Sulfate) 1 Puff Puff 2 Puff INH Q4H PRN Sulfamethoxazole-Tmp Ds Tablet (Sulfamethoxazole/Trimethoprim) 1 Each Tablet 1 Tab PO DAILY Ex-Lax (Sennosides) 15 Mg Tablet 1 Tab PO DAILY PRN Colace (Docusate Sodium) 100 Mg Capsule 500 Mg PO DAILY PRN Lactulose 10 Gm/15 Ml Solution 2 Tbs PO Q4H PRN Lidocaine 1 Each Adh..patch 1 Patch TP DAILY PRN 5% Finasteride 5 Mg Tablet 2.5 Mg PO HS TAKES 1/2 (5MG) TABLET Levemir Flextouch (Insulin Detemir) 100 Unit/1 Ml Insuln.pen 20 Units SC BID Metolazone 5 Mg Tablet 5 Mg PO DAILY Spironolactone 25 Mg Tablet 50 Mg PO DAILY TAKES 2 (25MG) TABLETS Meloxicam 15 Mg Tablet 15 Mg PO DAILY Humalog Kwikpen (Insulin Lispro) 100 Unit/1 Ml Insuln.pen 50 Units SQ ACHS Potassium Chloride 10 Meq Tablet.er 20 Meq PO BID TAKES 2 (10MEQ) TABLETS Tamsulosin HCl 0.4 Mg Cap.er.24h 0.4 Mg PO DAILY Montelukast Sodium 10 Mg Tablet 10 Mg PO HS Eliquis (Apixaban) 5 Mg Tablet 5 Mg PO BID Rosuvastatin Calcium 5 Mg Tablet 5 Mg PO DAILY Dilt-Xr (Diltiazem HCl) 240 Mg Cap.er.deg 240 Mg PO DAILY Advair 500-50 Diskus (Fluticasone/Salmeterol) 1 Each Blst.w.dev 1 Puff IH BID Clopidogrel (Clopidogrel Bisulfate) 75 Mg Tablet 75 Mg PO DAILY Metoprolol Succinate 50 Mg Tab.er.24h 50 Mg PO DAILY Lortab 7.5 Mg Tablet (Acetaminophen/Hydrocodone Bitart) 1 Each Tablet 1 Tab PO Q6H PRN Albuterol Sulfate 2.5 Mg/3 Ml Vial.neb 2.5 Mg NEB Q4H PRN Levothyroxine Sodium 25 Mcg Tablet 25 Mcg PO DAILY Zyrtec-D Tablet (Cetirizine HCl/Pseudoephedrine) 1 Each Tab.er.12h 1 Tab PO DAILY Instructions to patient/family Please see electronic discharge instructions given to patient. Clinical Quality Measures DVT/VTE Risk/Contraindication: Risk Factor Score Per Nursin RFS Level Per Nursing on Admit: 2=Moderate Problem Qualifiers (1) Respiratory failure: Chronicity: acute Respiratory failure complication: hypoxia Qualified Codes : J96.01 - Acute respiratory failure with hypoxia (2) Anemia: Anemia type: iron deficiency Iron deficiency anemia type: chronic blood loss Qualified Codes: D50.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) (3) Abdominal pain: Abdominal location: right upper quadrant Qualified Codes: R10.11 - Right upper quadrant pain (4) Chronic kidney disease: Chronic kidney disease stage: stage 3 (moderate) Qualified Codes: N18.3 - Chronic kidney disease, stage 3 (moderate) (5) CAD (coronary artery disease): Coronary Disease-Associated Artery/Lesion type: [place] artery [place] vs. transplanted heart: [place] heart Associated angina: without angina Qualified Codes: I25.10 - Atherosclerotic heart disease of [place] coronary artery without angina pectoris (6) Constipation: Constipation type: slow transit constipation Qualified Codes: K59.01 - Slow transit constipation (7) GI bleed: GI bleed type/associated pathology: unspecified gastrointestinal hemorrhage type Qualified Codes: K92.2 - Gastrointestinal hemorrhage, unspecified CHAO PAT DO December 19, 2017 11:47
[2017-12-19] MEDS: KCL 10 MEQ TAB (MICRO K) PO SCH (12:27)
[2017-12-19] MEDS: ASPIRIN 81 MG CHEW (CHILDREN'S ASA) PO SCH (12:28)
[2017-12-19] MEDS: MELOXICAM 7.5 MG (MOBIC) TABLET PO SCH (12:28)
[2017-12-19] MEDS: TRIM/SULFAMETH 160/800 (SEPTRA DS) TAB PO SCH (12:28)
[2017-12-19] MEDS: SPIRONOLACTONE 25 MG (ALDACTONE) TAB PO SCH (12:28)
[2017-12-19] MEDS: predniSONE 20 MG TAB PO SCH (12:28)
[2017-12-19] MEDS: PSEUDOEPHEDRINE HCL 30 MG (SUDAFED) TAB PO SCH (12:29)
[2017-12-19] MEDS: ROSUVASTATIN 5 MG (CRESTOR) TABLET PO SCH (12:29)
[2017-12-19] MEDS: meTOproloL SUCCINATE 50 MG (TOPROL XL) TAB PO SCH (12:29)
[2017-12-19] MEDS: DILTIAZEM 240 MG (CARDIZEM CD) CAP PO SCH (12:29)
[2017-12-19] MEDS: LORATADINE (CLARITIN) 10 MG TAB PO SCH (12:29)
[2017-12-19] MEDS: inSUlin DETERMIR 1 UNIT/0.01 ML (LEVEMIR) CHARGE PER UNIT SQ SCH (12:30)
--- NOTE | 2017-12-19 14:32 | Physical Therapy Progress Note ---
Therapy Progress Note Pt in procedure this morning at 1st attempt. Afternoon attempt, pt declines tx since he is "just waiting on grandson to get out after school for ride". WAX PATTERN REPAIRER confirmed with nursing. 1 visit, no tx rendered TOO DAMON WAX PATTERN REPAIRER December 19, 2017 14:32
--- NOTE | 2017-12-19 21:24 | OPERATIVE REPORT ---
DATE OF SERVICE: 12/19/2017 ATTENDING PRIMARY CARE PHYSICIAN: Dr. America Hutton. PREOPERATIVE DIAGNOSIS: Persistent anemia with a history of dark tarry stools. POSTOPERATIVE DIAGNOSIS: Esophageal candidiasis, reflux esophagitis class B, small hiatal hernia, moderate gastritis. No active bleeding. PROCEDURE: EGD with biopsy and brushings. SURGEON: Hawk Greenwood MD ANESTHESIA: Conscious sedation. ESTIMATED BLOOD LOSS: Minimal. FINDINGS: Esophageal candidiasis encompassing the lower two thirds of the esophagus. There were no ulcerations or any active bleeding identified. Reflux esophagitis class B with no strictures identified. A small hiatal hernia approximately 1 cm in size. Moderate severity gastritis, which was diffuse in nature. There were no formal ulcerations or any bleeding source is identified. Pylorus and duodenum appeared normal with no distal obstructions or ulcerations. DISPOSITION: The patient tolerated the procedure well. INDICATIONS: The patient is a 67-year-old male known to us. He has had multiple medical problems including CHF, COPD, coronary artery disease and lower extremity edema. He has been on a number of different anticoagulants and was admitted for pneumonia as well as exacerbation of COPD. He was found to be anemic with hemoglobin of 7.0. He did receive a total of 5 units of packed red blood cells; however, it appeared that he did not have appropriate elevation of his hemoglobin levels. Since being monitored and medically treated, his hemoglobin has stabilized upon further questioning. He did undergo an EGD and colonoscopy by us in 03/2017, which did not show any active bleeding sources at that time. He does report that he approximately 6 weeks ago he did have an episode of dark stools or what he called an appearance of dirt after having a bowel movement. No red blood per rectum. DESCRIPTION OF PROCEDURE: The patient was brought to the endoscopy suite, laid supine with the head elevated. After adequate IV pain and sedative medications and conscious sedation anesthesia, the mouthpiece was applied with oxygen Ventimask. Endoscope was placed in the mouth, visualizing the pharynx and hypopharyngeal region. Vocal cords, epiglottis and vallecula identified and appeared to be normal. The endoscope was gently intubated in the esophageal opening and esophagus insufflated. The endoscope was then advanced to the first, second and third portions of the esophagus. At the distal two-thirds of the esophagus, there was a white plaque-like material coating the majority of the esophagus, which appeared to be consistent with an esophageal candidiasis. There were no ulcerations or any active bleeding identified. Brushings were taken and sent for AFB and fungal cultures. The endoscope was then advanced through the GE junction where a reflux esophagitis class B identified. There were no ulcers or strictures identified in this region as well as no bleeding sources. A biopsy was taken with forceps with electrocautery with visualization of good hemostasis. The endoscope was then advanced in the stomach and endoscope retroflexed, visualizing a small hiatal hernia approximately 1 cm in size. There was a moderate severity of diffuse gastritis; however, there were no formal ulcerations, polyps or any active bleeding source is identified. A biopsy was taken in the antrum for H. pylori with forceps and electrocautery with visualization of good hemostasis. The endoscope was then advanced to the pylorus and the first and second portions of the duodenum, which appeared normal with no distal obstructions. The endoscope was then slowly withdrawn while taking a second look and suctioning of residual air with no additional findings. The patient tolerated the procedure well. We will have him continue with medical management for now and he is currently on Nexium and we will recommend that he continues to take that; however, he needs to proceed with the necessary lifestyle and diet accommodation including small and more frequent meals, avoidance of eating at night as well as head elevation while lying supine. He also needs to proceed with the proper diet and exercise regimen and adequate weight reduction, which would decrease the reflux and reflux of food in the esophagus and eventual fungal growth. We will treat him with Diflucan for 14 days as well. Job ID: [id number] DocumentID: [id number] Dictated Date: 12/19/2017 11:12:22 Plugger Man Date: 12/19/2017 21:23:48 Dictated By: HAWK GREENWOOD MD [facility]
== END 2017-12-19 14:30 | disposition home or self-care (01) | DRG 189 ==
LOC: ER 22:21 → EDUNIT# 22:21 → ICU 23:40 → 4TH 12-16 12:14
PROVIDERS: ADMIT Internal Medicine; ATTEND Internal Medicine
PROC: 0DB68ZZ Excision of Stomach, Via Natural or Artificial Opening Endoscopic (ICD-10-PCS; 2017-12-19)
PROC: 0DD58ZX Extraction of Esophagus, Via Natural or Artificial Opening Endoscopic, Diagnostic (ICD-10-PCS; 2017-12-19)
PROC: 0DB48ZZ Excision of Esophagogastric Junction, Via Natural or Artificial Opening Endoscopic (ICD-10-PCS; principal; 2017-12-19 10:25)
DX: J96.21 Acute and chronic respiratory failure with hypoxia (principal); J44.1 Chronic obstructive pulmonary disease with (acute) exacerbation; J44.0 Chronic obstructive pulmonary disease with (acute) lower respiratory infection; J20.9 Acute bronchitis, unspecified; B37.81 Candidal esophagitis; R19.5 Other fecal abnormalities; I13.0 Hypertensive heart and chronic kidney disease with heart failure and stage 1 through stage 4 chronic kidney disease, or unspecified chronic kidney disease; I50.33 Acute on chronic diastolic (congestive) heart failure; N18.3 Chronic kidney disease, stage 3 (moderate); D50.0 Iron deficiency anemia secondary to blood loss (chronic); E66.2 Morbid (severe) obesity with alveolar hypoventilation; Z68.44 Body mass index [BMI] 60.0-69.9, adult; I42.9 Cardiomyopathy, unspecified; E11.21 Type 2 diabetes mellitus with diabetic nephropathy; E87.6 Hypokalemia; R60.0 Localized edema; J45.909 Unspecified asthma, uncomplicated; I48.91 Unspecified atrial fibrillation; I25.10 Atherosclerotic heart disease of native coronary artery without angina pectoris; E78.00 Pure hypercholesterolemia, unspecified; K59.09 Other constipation; E03.9 Hypothyroidism, unspecified; K21.0 Gastro-esophageal reflux disease with esophagitis; K29.70 Gastritis, unspecified, without bleeding; K44.9 Diaphragmatic hernia without obstruction or gangrene; E11.65 Type 2 diabetes mellitus with hyperglycemia; B96.20 Unspecified Escherichia coli [E. coli] as the cause of diseases classified elsewhere; Z79.01 Long term (current) use of anticoagulants; Z79.4 Long term (current) use of insulin; Z95.1 Presence of aortocoronary bypass graft
CPT/HCPCS: 36415; 36600; 71045; 80048; 80053; 82274; 82805; 82962; 83540; 83605; 83735; 83880; 84100; 85007; 85014; 85018; 85025; 85027; 85610; 85730; 86141; 86850; 86900; 86901; 86920; 87040; 87081; 87101; 87106; 88305; 93005; 94640; 94660; 94664; 94760; 96365; 96375

== ENCOUNTER 2018-03-28 09:00 | Outpatient (RCR) | payer OTHER, MEDICARE ==
[2018-02-19 08:50] VITALS: BP 122/70
[2018-02-19 09:58] VITALS: BP 112/78
[2018-02-21 08:55] VITALS: BP 112/58
[2018-02-21 09:46] VITALS: BP 116/70
[2018-02-26 09:00] VITALS: BP 140/50
[2018-02-26 10:00] VITALS: BP 140/60
[2018-02-28 09:00] VITALS: BP 140/50
[2018-02-28 10:00] VITALS: BP 130/58
[2018-03-05 09:00] VITALS: BP 140/60
[2018-03-05 10:00] VITALS: BP 150/60
[2018-03-07 08:55] VITALS: BP 130/40
[2018-03-07 09:00] VITALS: BP 130/40
[2018-03-12 08:55] VITALS: BP 142/60
[2018-03-12 09:45] VITALS: BP 138/60
[2018-03-14 09:00] VITALS: BP 145/60
[2018-03-14 10:00] VITALS: BP 120/58
[2018-03-19 09:10] VITALS: BP 160/40
[2018-03-19 10:00] VITALS: BP 147/70
[2018-03-21 08:55] VITALS: BP 116/63
[2018-03-21 09:00] VITALS: BP 116/63
[2018-03-21 10:00] VITALS: BP 145/50
[2018-03-26 10:09] VITALS: BP 139/70
[2018-03-28 09:00] VITALS: BP 108/72
[~2018-03-28 09:00] MED LIST changes: +ASPI-999 PO; +FLUC100T PO; +FURO80TA83 PO; -ROSU5TAB11 PO; +ROSU5TAB12 PO; -SPIR25TA3 PO; +SPIR25TA5 PO; +UMEC62.5 INH
[2018-04-02 09:45] VITALS: BP 123/68
[2018-04-02 10:00] VITALS: BP 145/50
== END 2018-03-31 | disposition home or self-care (01) ==
LOC: PULM 09:00
PROVIDERS: ATTEND Internal Medicine
DX: J44.1 Chronic obstructive pulmonary disease with (acute) exacerbation (principal)
CPT/HCPCS: 99211

== ENCOUNTER 2018-04-11 09:00 | Outpatient (RCR) | payer OTHER, MEDICARE ==
[2018-04-04 09:00] VITALS: BP 130/60
[2018-04-04 10:00] VITALS: BP 120/50
[2018-04-09 09:00] VITALS: BP 160/50
[2018-04-09 10:00] VITALS: BP 130/60
[2018-04-11 08:53] VITALS: BP 130/78
[~2018-04-11 09:00] MED LIST changes: -LOSA100T28 PO; +LOSA100T8 PO
[2018-04-11 09:48] VITALS: BP 120/80
== END 2018-04-12 | disposition home or self-care (01) ==
LOC: PULM 09:00
PROVIDERS: ATTEND Internal Medicine
DX: J44.1 Chronic obstructive pulmonary disease with (acute) exacerbation (principal); J44.0 Chronic obstructive pulmonary disease with (acute) lower respiratory infection; J22 Unspecified acute lower respiratory infection

== ENCOUNTER 2018-05-28 15:57 | Inpatient (IN) | payer OTHER, MEDICARE ==
[~2018-05-28] VITALS: Ht 172.7 cm; Wt 193.2 kg
[2018-05-28] MEDS ORDERED: ONDANSETRON 4 MG/2 ML (SDV) Z0FRAN IVP PRN (16:00)
[2018-05-28] MEDS ORDERED: ACETAMINOPHEN 500 MG TAB (TYLENOL) PO PRN (16:00)
[2018-05-28] MEDS ORDERED: DOCUSATE SODIUM 100 MG (COLACE) CAP PO PRN (16:00)
[2018-05-28] MEDS ORDERED: HYDROcodone/APAP 5 MG/325 MG (LORTAB) TAB PO PRN (16:00)
[2018-05-28 18:00] VITALS: BP 115/100
[2018-05-28] MEDS ORDERED: CATHETER FLUSH 10 ML SYR IV PRN (18:00)
[2018-05-28] MEDS ORDERED: PIPERACILLIN/TAZO 4.5 GM/NS 100 ML IV NR ×2 (18:00)
[2018-05-28 18:15] VITALS: BP 150/90
[2018-05-28] MEDS: methylPREDNISolone 40 MG/ML (Solu-MEDROL) VIAL IV SCH ×2 (18:26→23:30)
--- NOTE | 2018-05-28 18:37 | Diagnostic Imaging Report ---
Indication: Dyspnea. Time of exam: 6:10 PM Correlation is made with prior study from 12/16/2017. The heart is enlarged but stable. There are changes of median sternotomy. Lungs appear to be fairly clear. No definite infiltrate or failure is detected. No effusion or pneumothorax is seen. Impression: Cardiomegaly. No acute feature is detected. Dictated by: Dictated on workstation # [id number]
[2018-05-28] MEDS ORDERED: FLU QUADRIvalent (5+ YOA) 2018-2019 (AFLURIA) 0.5 ML IM ONE (19:00)
[2018-05-28] MEDS: RT-ALBUTEROL/IPRATROPIUM 3 ML (DUONEB) VIAL INH SCH ×2 (19:19→22:04)
[2018-05-28 19:29] LABS: BASOPHILS % (AUTO) 0 % (0-10); EOSINOPHILS # (AUTO) 0.5 10^3/uL (0.0-0.3); EOSINOPHILS % (AUTO) 5 % (0-10); HEMATOCRIT 35 % (40-54); HEMOGLOBIN 11.6 G/DL (13.3-17.7); LYMPHOCYTES # (AUTO) 1.9 X 10^3 (1.0-4.0); LYMPHOCYTES % (AUTO) 19 % (12-44); MEAN CORPUSCULAR HEMOGLOBIN 29 PG (25-34); MEAN CORPUSCULAR HGB CONC 33 G/DL (32-36); MEAN CORPUSCULAR VOLUME 88 FL (80-99); MEAN PLATELET VOLUME 9.9 FL (7.4-10.4); MONOCYTES # (AUTO) 0.9 X 10^3 (0.0-1.0); MONOCYTES % (AUTO) 9 % (0-12); NEUTROPHILS # (AUTO) 6.8 X 10^3 (1.8-7.8); NEUTROPHILS % (AUTO) 67 % (42-75); PLATELET COUNT 281 10^3/uL (130-400); RED BLOOD COUNT 4.01 10^6/uL (4.35-5.85); RED CELL DISTRIBUTION WIDTH 14.7 % (10.0-14.5); WHITE BLOOD COUNT 10.1 10^3/uL (4.3-11.0)
[2018-05-28 19:32] LABS: ABG BASE EXCESS 3.1 MMOL/L (-2.5-2.5); ABG OXYGEN SATURATION 96 % (94-100); ABG PCO2 38 MMHG (35-45); ABG PH 7.46 (7.37-7.43); ABG PO2 80 MMHG (79-93)
[2018-05-28 19:33] LABS: ALLENS TEST POSITIVE; INSPIRED O2 3L; PATIENT TEMP 97.7; VENTILATOR NO
[2018-05-28 19:47] LABS: ALANINE AMINOTRANSFERASE 15 U/L (0-55); ALBUMIN 4.4 GM/DL (3.2-4.5); ALKALINE PHOSPHATASE 98 U/L (40-136); BILIRUBIN,TOTAL 0.6 MG/DL (0.1-1.0); BUN/CREATININE RATIO 13; CALCIUM 9.7 MG/DL (8.5-10.1); CARBON DIOXIDE 23 MMOL/L (21-32); CHLORIDE 93 MMOL/L (98-107); CREATININE SERUM 1.71 MG/DL (0.60-1.30); GFR ESTIMATED 40; GLUCOSE 338 MG/DL (70-105); POTASSIUM 3.3 MMOL/L (3.6-5.0); SODIUM 133 MMOL/L (135-145); TOTAL PROTEIN 8.2 GM/DL (6.4-8.2)
[2018-05-28 19:59] VITALS: BP 165/84
[2018-05-28 20:55] VITALS: BP 165/84
[2018-05-28] MEDS ORDERED: inSUlin DETERMIR 1 UNIT/0.01 ML (LEVEMIR) CHARGE PER UNIT SQ SCH (21:00)
--- NOTE | 2018-05-28 21:32 | Progress Note-Hospitalist ---
Progress Note Patient admitted directly from my clinic for AECOPD. He has such severe co- morbidities and severe COPD he will require 3 days of in-pt stay for IV abx and IV steroids. Dr Bishop notified. CHAO PAT DO May 28, 2018 21:32
[2018-05-28] MEDS: inSUlin ASPART (NovoLOG) 1 UNIT/0.01 ML (CHARGE PER UNIT) SC SCH (21:53)
[2018-05-28] MEDS: CATHETER FLUSH 10 ML SYR IV SCH (21:53)
[2018-05-28] MEDS: RT-BUDESONIDE NEBS 0.5 MG/2ML (PULMICORT) AMP INH SCH (22:05)
[2018-05-28] MEDS: PIPERACILLIN SODIUM/TAZOBACTAM 4.5 GM in NS (IVPB) 100 ML IV SCH (23:45)
[2018-05-29] VITALS (8 sets, daily range): BP systolic 124–169; BP diastolic 50–93
[2018-05-29] MEDS: RT-ALBUTEROL/IPRATROPIUM 3 ML (DUONEB) VIAL INH SCH ×6 (03:29→22:28)
[2018-05-29 04:19] LABS: BASOPHILS % (AUTO) 0 % (0-10); EOSINOPHILS % (AUTO) 0 % (0-10); HEMATOCRIT 36 % (40-54); HEMOGLOBIN 12.1 G/DL (13.3-17.7); LYMPHOCYTES # (AUTO) 0.9 X 10^3 (1.0-4.0); LYMPHOCYTES % (AUTO) 8 % (12-44); MEAN CORPUSCULAR HEMOGLOBIN 29 PG (25-34); MEAN CORPUSCULAR HGB CONC 34 G/DL (32-36); MEAN CORPUSCULAR VOLUME 86 FL (80-99); MEAN PLATELET VOLUME 10.1 FL (7.4-10.4); MONOCYTES # (AUTO) 0.1 X 10^3 (0.0-1.0); MONOCYTES % (AUTO) 1 % (0-12); NEUTROPHILS # (AUTO) 10.5 X 10^3 (1.8-7.8); NEUTROPHILS % (AUTO) 91 % (42-75); PLATELET COUNT 259 10^3/uL (130-400); RED BLOOD COUNT 4.14 10^6/uL (4.35-5.85); RED CELL DISTRIBUTION WIDTH 14.4 % (10.0-14.5); WHITE BLOOD COUNT 11.5 10^3/uL (4.3-11.0)
[2018-05-29 04:43] LABS: ALBUMIN 4.3 GM/DL (3.2-4.5); BILIRUBIN,TOTAL 0.6 MG/DL (0.1-1.0); CALCIUM 9.8 MG/DL (8.5-10.1); CREATININE SERUM 1.76 MG/DL (0.60-1.30); PHOSPHORUS 3.2 MG/DL (2.3-4.7); POTASSIUM 4.4 MMOL/L (3.6-5.0); TOTAL PROTEIN 8.2 GM/DL (6.4-8.2)
[2018-05-29 04:45] LABS: ANISOCYTOSIS SLIGHT; BAND NEUTROPHILS 1 %; BASOPHILS % (MANUAL) 0 %; EOSINOPHILS % (MANUAL) 0 %; LYMPHOCYTES % (MANUAL) 5 %; MONOCYTES % (MANUAL) 2 %; NEUTROPHILS % (MANUAL) 90 %; POLYCHROMASIA SLIGHT; REACTIVE LYMPHOCYTES 2 %; TOXIC GRANULATION/VACUOLAZATIO 1+
[2018-05-29] MEDS: methylPREDNISolone 40 MG/ML (Solu-MEDROL) VIAL IV SCH ×3 (05:27→20:11)
[2018-05-29] MEDS: CATHETER FLUSH 10 ML SYR IV SCH ×2 (05:27→18:56)
[2018-05-29] MEDS: inSUlin ASPART (NovoLOG) 1 UNIT/0.01 ML (CHARGE PER UNIT) SC SCH ×6 (05:28→21:42)
--- NOTE | 2018-05-29 06:29 | Pulmonary Consultation ---
History of Present Illness History of Present Illness Date of Consultation 05/29/18 06:24 Time Seen by Provider: 06:24 Date of Admission History of Present Illness 67yo with hx of morbid obesity, severe COPD oxygen dependent presented to ICU as a direct admit from Dr. Hutton's office secondary to worsening SOB. Allergies and Home Medications Allergies Coded Allergies: Ywpvhws-Hje-Rhq Reductase Inhibitor (Verified Allergy, Unknown, 10/15/17) codeine (Verified Allergy, Unknown, Takes Lortab at home, 05/28/18) fish oil (Verified Allergy, Unknown, 10/15/17) Home Medications Albuterol Sulfate 2.5 Mg/3 Ml Vial.neb, 2.5 MG NEB Q4H PRN for SHORTNESS OF BREATH, (Reported) Albuterol Sulfate 1 Puff Puff, 2 PUFF INH Q4H PRN for SHORTNESS OF BREATH, ( Reported) Aspirin 81 Mg Tab.chew, 81 MG PO DAILY, (Reported) Cefdinir 300 Mg Capsule, 300 MG PO BID Prescribed by: CHAO HUTTON on 06/01/18 1246 Cetirizine HCl/Pseudoephedrine 1 Each Tab.er.12h, 1 TAB PO DAILY, (Reported) Diltiazem HCl 240 Mg Cap.er.deg, 240 MG PO DAILY, (Reported) Docusate Sodium 100 Mg Capsule, 500 MG PO DAILY PRN for CONSTIPATION-1ST LINE, ( Reported) Esomeprazole Magnesium 20 Mg Capsule.dr, 20 MG PO HS, (Reported) Finasteride 5 Mg Tablet, 5 MG PO DAILY, (Reported) Fluticasone Propionate 16 Gm [place].susp, 2 SPRAYS NS HS, (Reported) Fluticasone/Salmeterol 1 Each Blst.w.dev, 1 PUFF IH BID, (Reported) Furosemide 80 Mg Tablet, 80 MG PO 1300, (Reported) Hydrocodone Bit/Acetaminophen 1 Each Tablet, 1 TAB PO Q6H PRN for PAIN-MODERATE, (Reported) Insulin Detemir 100 Unit/1 Ml Insuln.pen, 40 UNITS SC BID, (Reported) Insulin Lispro 100 Unit/1 Ml Insuln.pen, 50 UNITS SQ ACHS, (Reported) Lactulose 10 Gm/15 Ml Solution, 2 TBS PO Q4H PRN for CONSTIPATION-3RD LINE, ( Reported) Levothyroxine Sodium 25 Mcg Tablet, 25 MCG PO DAILY, (Reported) Lidocaine 1 Each Adh..patch, 1 PATCH TP DAILY PRN for KNEE/BACK PAIN, (Reported) 5% Meloxicam 15 Mg Tablet, 15 MG PO DAILY, (Reported) Metolazone 5 Mg Tablet, 5 MG PO 1300, (Reported) Metoprolol Succinate 50 Mg Tab.er.24h, 50 MG PO DAILY, (Reported) Montelukast Sodium 10 Mg Tablet, 10 MG PO HS, (Reported) Potassium Chloride 10 Meq Tablet.er, 20 MEQ PO BID, (Reported) TAKES 2 (10MEQ) TABLETS Rosuvastatin Calcium 5 Mg Tablet, 5 MG PO DAILY, (Reported) Sennosides 15 Mg Tablet, 1 TAB PO DAILY PRN for CONSTIPATION-5TH LINE, (Reported ) Spironolactone 25 Mg Tablet, 50 MG PO 1300, (Reported) TAKES 2 (25MG) TABLETS Sulfamethoxazole/Trimethoprim 1 Each Tablet, 0.5 TAB PO HS, (Reported) TAKES 1/2 TABLET Tamsulosin HCl 0.4 Mg Cap.er.24h, 0.4 MG PO DAILY, (Reported) Umeclidinium [place] 62.5 Mcg Blst.w.dev, 1 PUFF INH DAILY, (Reported) Past Dxmyora-Mrhhgd-Zoqgxq Hx Patient Social History Alcohol Use: Denies Use Alcohol Beverage of Choice: Whiskey Recreational Drug Use: No Smoking Status: Former Smoker Type Used: Cigarettes Former Smoker, Quit: Aug 13, 1996 2nd Hand Smoke Exposure: No Recent Foreign Travel: No Contact w/Someone Who Travel: No Recent Infectious Disease Expo: No Recent Hopitalizations: No Immunizations Up To Date Tetanus Booster (TDap): Less than 5yrs PED Vaccines UTD: No Date of Pneumonia Vaccine: May 13, 2017 Date of Influenza Vaccine: May 13, 2017 Seasonal Allergies Seasonal Allergies: Yes Past Medical History Surgeries: Yes Adenoidectomy, Cardiac, CABG, Coronary Stent, Gallbladder, Tonsillectomy, Transurethral Resection, Vasectomy Respiratory: Yes Asthma, Pneumonia, COPD Currently Using CPAP: Yes Currently Using BIPAP: No Cardiac: Yes Atrial Fibrillation, Chronic Edema/Swelling, Coronary Artery Disease, Heart Attack, High Cholesterol, Hypertension Neurological: Yes Neuropathy Reproductive Disorders: No Genitourinary: Yes Prostate Problems, Bladder Infection, UTI-Chronic Gastrointestinal: Yes Chronic Constipation Musculoskeletal: Yes Arthritis, Chronic Back Pain Endocrine: Yes Diabetes, Insulin dep, Hypothyroidsim HEENT: Yes Cataract Loss of Vision: Denies Hearing Impairment: Denies Cancer: No Psychosocial: Yes Anxiety Integumentary: Yes Pruritis Blood Disorders: No Adverse Reaction/Blood Tranf: No Family Medical History Cancer 03 FATHER Congestive heart failure 03 MOTHER Family history: Arthritis 03 MOTHER Family history: Asthma 03 MOTHER Family history: Cardiovascular disease 03 MOTHER Family history: Diabetes mellitus 09 BROTHER Family history: Gastrointestinal disease 03 FATHER History of drug abuse 09 BROTHER Asthma, Heart Disease, Hypertension Review of Systems Time Seen by Provider: 13:17 Sepsis Event Evaluation Height, Weight, BMI Height: 5'8.00" Weight: 412lbs. 0.2oz. 186.477279nn; 62.7 BMI Method:Stated Exam Exam Vital Signs Date Time Temp Pulse Resp B/P (MAP) Pulse Ox O2 Delivery O2 Flow Rate FiO2 05/29/18 04:00 95 Nasal Cannula 3.00 05/29/18 03:30 96 Nasal Cannula 3.00 05/29/18 03:23 97.9 64 21 169/87 (114) 94 Nasal Cannula 3.00 05/29/18 01:05 97.8 05/29/18 01:00 95 05/29/18 00:00 96 Nasal Cannula 3.00 05/29/18 00:00 62 27 124/50 (74) 97 Nasal Cannula 3.00 05/28/18 22:14 99 NIV CPAP 3.00 05/28/18 22:05 97 NIV CPAP 3.00 05/28/18 20:55 86 95 32 05/28/18 20:00 95 Nasal Cannula 3.00 05/28/18 19:59 98.0 65 21 165/84 (111) 95 Nasal Cannula 3.00 05/28/18 19:52 98.0 05/28/18 19:19 Nasal Cannula 3.00 05/28/18 19:00 79 05/28/18 18:15 70 22 150/90 (110) 97 Nasal Cannula 3.00 05/28/18 18:10 68 05/28/18 18:00 65 29 115/100 (105) 97 Nasal Cannula 3.00 05/28/18 17:45 97 Nasal Cannula 3.00 I & O 05/29/18 07:00 Intake Total 450 ml Output Total 500 ml Balance -50 ml Height & Weight Height: 5'8.00" Weight: 412lbs. 0.2oz. 186.967934oi; 62.7 BMI Method:Stated General Appearance: No Apparent Distress, WD/WN HEENT: PERRL/EOMI, Normal ENT Inspection Neck: Full Range of Motion, Non Tender, Supple Respiratory: No Accessory Muscle Use, No Respiratory Distress, Decreased Breath Sounds Cardiovascular: Regular Rate, Rhythm, No Gallop, No JVD, No Murmur Gastrointestinal: normal bowel sounds, non tender, soft Extremity: Normal Capillary Refill Neurologic/Psychiatric: Alert Skin: Normal Color Results Lab Laboratory Tests 05/28/18 19:15 05/29/18 04:10 Assessment/Plan Assessment/Plan Acute on chronic respiratory failure -Monitor, oxygen COPDAE with persistent cough- -oxygen -SVNs -Solumedrol - change to 40 IV Q 6 Morbid obesity with JOSE MANUEL -Home CPAP Hyponatremia -monitor Chronic Afib and CAD -Cardiology following CKD IDDM hx of Cellulitis and abscess of foot RAIMUNDO MATTHEWS DO May 29, 2018 06:29
[2018-05-29] MEDS: RT-BUDESONIDE NEBS 0.5 MG/2ML (PULMICORT) AMP INH SCH ×2 (06:32→18:50)
[2018-05-29] MEDS ORDERED: inSUlin ASPART (NovoLOG) 1 UNIT/0.01 ML (CHARGE PER UNIT) SC ONE (07:00)
--- NOTE | 2018-05-29 07:58 | Consultation-Cardiology ---
HPI-Cardiology Cardiology Consultation: Date of Consultation 05/29/18 Time Seen by a Provider: 08:45 Date of Admission 05-28-18 Attending Physician America Pat DO Admitting Physician America Pat DO Consulting Physician Kayla Bishop MD HPI: Chief Complaint: Dyspnea Mr. Garcia is a 67 year old male admitted to ICU 1 as a direct admit from his PCP 's office yesterday with increasing SOB. He reports starting a few days ago he began to have worsening dyspnea with a dry, hacking cough. He reports increasing bilat LE edema over the last few days as well. No c/o CP, palpitations, syncope or near syncope. He reports abdominal distension as well which he feels is some fluid retention. Denies fever or chills. No n/v/d. Review of Systems-Cardiology Review of Systems Constitutional: No chills, No fever Eyes: No vision change Ears/Nose/Throat: No epistaxis, No recent hearing loss Respiratory: As described under HPI Cardiovascular: As described under HPI Gastrointestinal: No constipation, No diarrhea, No nausea, No vomiting Genitourinary: No dysuria, No hematuria Musculoskeletal: other (chronic back and joint discomfort) Skin: No rash, No ulcerations Psychiatric/Neurological: No anxiety, No depression, No seizure, No focal weakness, No syncope Hematologic: No bleeding abnormalities HQR-Hbpepy-Nyadav Hx Patient Social History Alcohol Use: Denies Use Recreational Drug Use: No Smoking Status: Former Smoker Former smoker/When Quit: Aug 13, 2006 Type Used: Cigarettes 2nd Hand Smoke Exposure: No Recent Foreign Travel: No Recent Infectious Disease Expo: No Physical Abuse Screen: No Sexual Abuse: No Immunizations Up To Date Tetanus Booster (TDap): Less than 5yrs Date of Pneumonia Vaccine: May 13, 2017 Date of Influenza Vaccine: May 13, 2017 Past Medical History PMH As described under Assessment. Family Medical History Family Medical History: Reports mother had CAD and CHF. No reported h/o premature CAD or SCD. Family History: Cancer 03 FATHER Congestive heart failure 03 MOTHER Family history: Arthritis 03 MOTHER Family history: Asthma 03 MOTHER Family history: Cardiovascular disease 03 MOTHER Family history: Diabetes mellitus 09 BROTHER Family history: Gastrointestinal disease 03 FATHER History of drug abuse 09 BROTHER Allergies and Home Medications Allergies Coded Allergies: Choxazn-Kxr-Fwf Reductase Inhibitor (Verified Allergy, Unknown, 10/15/17) codeine (Verified Allergy, Unknown, Takes Lortab at home, 05/28/18) fish oil (Verified Allergy, Unknown, 10/15/17) Home Medications Albuterol Sulfate 2.5 Mg/3 Ml Vial.neb, 2.5 MG NEB Q4H PRN for SHORTNESS OF BREATH, (Reported) Albuterol Sulfate 1 Puff Puff, 2 PUFF INH Q4H PRN for SHORTNESS OF BREATH, ( Reported) Aspirin 81 Mg Tab.chew, 81 MG PO DAILY, (Reported) Cetirizine HCl/Pseudoephedrine 1 Each Tab.er.12h, 1 TAB PO DAILY, (Reported) Diltiazem HCl 240 Mg Cap.er.deg, 240 MG PO DAILY, (Reported) Docusate Sodium 100 Mg Capsule, 500 MG PO DAILY PRN for CONSTIPATION-1ST LINE, ( Reported) Esomeprazole Magnesium 20 Mg Capsule.dr, 20 MG PO HS, (Reported) Finasteride 5 Mg Tablet, 5 MG PO DAILY, (Reported) Fluticasone Propionate 16 Gm [place].susp, 2 SPRAYS NS HS, (Reported) Fluticasone/Salmeterol 1 Each Blst.w.dev, 1 PUFF IH BID, (Reported) Furosemide 80 Mg Tablet, 80 MG PO 1300, (Reported) Hydrocodone Bit/Acetaminophen 1 Each Tablet, 1 TAB PO Q6H PRN for PAIN-MODERATE, (Reported) Insulin Detemir 100 Unit/1 Ml Insuln.pen, 40 UNITS SC BID, (Reported) Insulin Lispro 100 Unit/1 Ml Insuln.pen, 50 UNITS SQ ACHS, (Reported) Lactulose 10 Gm/15 Ml Solution, 2 TBS PO Q4H PRN for CONSTIPATION-3RD LINE, ( Reported) Levothyroxine Sodium 25 Mcg Tablet, 25 MCG PO DAILY, (Reported) Lidocaine 1 Each Adh..patch, 1 PATCH TP DAILY PRN for KNEE/BACK PAIN, (Reported) 5% Meloxicam 15 Mg Tablet, 15 MG PO DAILY, (Reported) Metolazone 5 Mg Tablet, 5 MG PO 1300, (Reported) Metoprolol Succinate 50 Mg Tab.er.24h, 50 MG PO DAILY, (Reported) Montelukast Sodium 10 Mg Tablet, 10 MG PO HS, (Reported) Potassium Chloride 10 Meq Tablet.er, 20 MEQ PO BID, (Reported) TAKES 2 (10MEQ) TABLETS Rosuvastatin Calcium 5 Mg Tablet, 5 MG PO DAILY, (Reported) Sennosides 15 Mg Tablet, 1 TAB PO DAILY PRN for CONSTIPATION-5TH LINE, (Reported ) Spironolactone 25 Mg Tablet, 50 MG PO 1300, (Reported) TAKES 2 (25MG) TABLETS Sulfamethoxazole/Trimethoprim 1 Each Tablet, 0.5 TAB PO HS, (Reported) TAKES 1/2 TABLET Tamsulosin HCl 0.4 Mg Cap.er.24h, 0.4 MG PO DAILY, (Reported) Umeclidinium [place] 62.5 Mcg Blst.w.dev, 1 PUFF INH DAILY, (Reported) Physical Exam-Cardiology Physical Exam Vital Signs/I&O 05/29/18 05/30/18 05/30/18 05/30/18 22:28 00:00 00:00 01:00 Pulse 57 64 B/P (MAP) 140/68 (92) Pulse Ox 95 95 99 O2 Delivery Nasal Cannula Nasal Cannula Nasal Cannula O2 Flow Rate 3.00 3.00 3.00 05/30/18 05/30/18 05/30/18 05/30/18 01:35 04:00 04:00 06:37 Pulse 68 B/P (MAP) 163/91 (115) Pulse Ox 95 95 O2 Delivery Nasal Cannula Nasal Cannula Nasal Cannula Nasal Cannula O2 Flow Rate 3.00 3.00 3.00 3.00 05/30/18 00:00 Intake Total 1150 ml Output Total 2500 ml Balance -1350 ml Capillary Refill : Constitutional: AAO x 3, well-developed, well-nourished HEENT: PERRL, hearing is well preserved, oral hygience is good Neck: No carotid bruit; carotid pulses are 2 + bilaterally Respiratory: No accessory muscle use, No respiratory distress; chest expansion is symmetric, chest is bilaterally symmetric, crackles (bilat lower lobes with scattered rhonchi; frequent non-productive cough) Cardiovascular: irregularly irregular; No JVD; S1 and S2, systolic murmur Gastrointestinal: No tender; round, distended, audible bowel sounds Rectal: deferred Extremities: significant edema (bilat pitting and non-pitting edema) Neurologic/Psychiatric: grossly intact, power is 5/5 both on sides Skin: No rash, No ulcerations Data Review Labs Laboratory Tests 05/29/18 13:18: Glucometer 531*H 05/29/18 14:52: Glucometer 546*H 05/29/18 16:11: Glucometer 445*H 05/29/18 17:09: Glucometer 393H 05/29/18 18:08: Glucometer 387H 05/29/18 19:04: Glucometer 267H 05/29/18 20:09: Glucometer 196H 05/29/18 21:09: Glucometer 158H 05/29/18 22:05: Glucometer 168H 05/29/18 22:58: Glucometer 200H 05/29/18 23:58: Glucometer 212H 05/30/18 00:56: Glucometer 190H 05/30/18 02:02: Glucometer 178H 05/30/18 03:08: Glucometer 148H 05/30/18 03:58: Glucometer 133H 05/30/18 04:27: White Blood Count 20.5H, Red Blood Count 3.95L, Hemoglobin 11.5L, Hematocrit 34L , Mean Corpuscular Volume 86, Mean Corpuscular Hemoglobin 29, Mean Corpuscular Hemoglobin Concent 34, Red Cell Distribution Width 14.6H, Platelet Count 254, Mean Platelet Volume 10.0, Sodium Level 133L, Potassium Level 3.0L, Chloride Level 96L, Carbon Dioxide Level 20L, Anion Gap 17H, Blood Urea Nitrogen 47H, Creatinine 1.70H, Estimat Glomerular Filtration Rate 40, BUN/Creatinine Ratio 28 , Glucose Level 132H, Calcium Level 9.4, Corrected Calcium 9.3, Magnesium Level 2.2, Total Bilirubin 0.4, Aspartate Amino Transf (AST/SGOT) 30, Alanine Aminotransferase (ALT/SGPT) 32, Alkaline Phosphatase 88, Total Protein 7.7, Albumin 4.1 05/30/18 05:10: Glucometer 102 05/30/18 06:01: Glucometer 87 05/30/18 07:18: Glucometer 107 05/30/18 08:02: Glucometer 150H Microbiology 05/28/18 Blood Culture - Preliminary, Resulted No growth Radiology NAME: JENNIFER GARCIA REC#: [id number] PT STATUS: ADM IN : 1950 PHYSICIAN: AMERICA PAT DO ADMIT DATE: 05/28/18/ICU Signed Date of Exam: 05/28/18 CHEST 1 VIEW, AP/PA ONLY Indication: Dyspnea. Time of exam: 6:10 PM Correlation is made with prior study from 12/16/2017. The heart is enlarged but stable. There are changes of median sternotomy. Lungs appear to be fairly clear. No definite infiltrate or failure is detected. No effusion or pneumothorax is seen. Impression: Cardiomegaly. No acute feature is detected. Dictated by: Dictated on workstation # [id number] Dict: 05/28/181820 Trans: 05/28/181839 Interpreted by: LOREN COLEMAN MD Electronically signed by: LOREN COLEMAN MD 05/28/181839 A/P-Cardiology Assessment/Admission Diagnosis Dyspnea likely multifactorial - ac on chronic diastolic CHF, ac exacerbation of COPD, pneumonia and obesity-hypoventilation syndrome Obesity (BMI approx 62) with obesity-hypoventilation Chronic diastolic CHF - continue diuretic regimen Persistent a-fib first diagnosed in early February 2016, rate controlled Anemia of undetermined etiology; ongoing occult bleed suspected - management by Dr. Pat of medical services. Dr Pat has not allowed reinitiation of OAC - ASA tx only CAD with a h/o CABG in 2006 at [facility] in [place], [place]. On cardiac cath of 11-11-15: Multivessel coronary disease including multiple more than 90% stenosis of the proximal and mid left anterior descending artery. The mid to distal left anterior descending artery is protected with a widely patent left internal mammary artery graft. The left circumflex artery had 99% ostial/ proximal stenosis to which successful stenting was carried out with Promus Premier 3.5 x 20 mm stent with a reduction of stenosis to 0% residual. The distal left circumflex and its obtuse marginal branches have diffuse moderate to moderately severe disease which were not intervened on. The right coronary artery is dominant and had 90% proximal stenosis to which successful stenting was carried out with Promus Premier 2.75 x 28 mm stent with reduction of stenosis to 0% residual. The distal right coronary artery has multiple stenoses of 50 to 60%, which were not intervened on. Cardiac cath of 11-11-15 showed well preserved global left ventricular systolic function and ejection fraction of 55 to 60%. Elevated left ventricular end- diastolic pressure which was measured at approximately 20 mmHg. No significant mitral regurgitation. ABIs on 01/13/16 at [place], [place]: 1.1 on both sides Echocardiogram of 09/14/17 (Dr Costello): LVEF 55-65%, dilated LA, supotimal study Chronic bilat leg swelling, likely due to venous insuff, no evidence of DVT on on venous duplex of 09/13/17 Hypertension COPD Quit smoking in early DM II Chronic renal insufficiency - chronic likely due in some part to diabetic nephropathy Sleep apnea syndrome - CPAP therapy - managed by Dr. Paris Minimal carotid dz on u/s of November 2015 Discussion and Recomendations Multi-factorial dyspnea as listed above Acute exacerbation of COPD with poss pneumonia - management per medical and pulmonary services Acute on chronic diastolic CHF - tx with diuretics Continue CCB and BB for rate control He has chronic a-fib for which ideally we would like him to be on OAC for stroke prophylaxis other than ASA. However, d/t chronic anemia for which slow GI bleed is suspected, which is worse when taking stronger OAC, ASA 81mg has only been allowed by PCP Monitor lab closely Further recs will be based on his hospital course We would like to thank medical services for this consult Clinical Quality Measures DVT/VTE Risk/Contraindication: Risk Factor Score Per Nursin RFS Level Per Nursing on Admit: 4+=Very High BENJAMIN ARROYO May 29, 2018 07:57
--- NOTE | 2018-05-29 08:35 | Diagnostic Imaging Report ---
INDICATION: COPD exacerbation. TECHNIQUE: Single view chest at 3:05 AM. CORRELATION STUDY: 05/28/2018. FINDINGS: The patient is post sternotomy. Multiple sternal wires are fragmented. The heart size is enlarged and the mediastinum is prominent. The vasculature overall appears increased. Mild diffuse opacification of the lung araiza may be reflective of underlying edema. No dj lobar consolidation. Probable effusions. IMPRESSION: Cardiac enlargement with pulmonary vascular congestion, likely a component of pulmonary edema. No jd pulmonary infiltrate. Dictated by: Dictated on workstation # [id number]
[2018-05-29] MEDS: PIPERACILLIN SODIUM/TAZOBACTAM 4.5 GM in NS (IVPB) 100 ML IV SCH ×2 (08:52→16:37)
--- NOTE | 2018-05-29 08:55 | History & Physical-Hospitalist ---
AMERICA PAT DO 05/29/18 0855: History of Present Illness HPI/Chief Complaint CC: Dyspnea HPI: This is a 67yoWM clinic patient of mine for the past 12 yrs w/h/o frequent hospitalizations due to AECOPD. He presented to my office with dyspnea and was found to be hypoxic and in need of IV steroids and IV abx. I conferred with Dr Bishop after he evaluated him and he was found to have recurrent volume overload from diastolic dysfunction and ordered Lasix and recommended Lapband so I spoke to Dr Joy well known to him from prior choly and he will see him in consultation. Source: patient Exam Limitations: no limitations Date Seen 05/29/18 Time Seen by a Provider: 09:00 Attending Physician America Pat DO PCP America Pat DO Referring Physician Date of Admission May 28, 2018 at 17:40 Home Medications & Allergies Home Medications Reviewed patient Home Medication Reconciliation performed by pharmacy medication reconciliations vehicle modification technician and/or nursing. Patients Allergies have been reviewed. Allergies Allergies Coded Allergies Mdpjqms-Vkr-Kmr Reductase Inhibitor (Verified Allergy, Unknown, 10/15/17) codeine (Verified Allergy, Unknown, Takes Lortab at home, 05/28/18) fish oil (Verified Allergy, Unknown, 10/15/17) Past Ehiaiyw-Rczvme-Bxzdsr Hx Past Med/Social Hx: Reviewed Nursing Past Med/Soc Hx, Reviewed and Corrections made Patient Social History Marrital Status: Employed/Student: employed ([employer]) Alcohol Use: Denies Use Alcohol Beverage of Choice: Whiskey Recreational Drug Use: No Smoking Status: Former Smoker Former Smoker, Quit: Aug 13, 1996 Type Used: Cigarettes 2nd Hand Smoke Exposure: No Physical Abuse Screen: No Sexual Abuse: No Recent Foreign Travel: No Contact w/other who traveled: No Recent Hopitalizations: No Recent Infectious Disease Expo: No Immunizations Up To Date Tetanus Booster (TDap): Less than 5yrs Pediatric: No Date of Pneumonia Vaccine: May 13, 2017 Date of Influenza Vaccine: May 13, 2017 Seasonal Allergies Seasonal Allergies: Yes Past Medical History Surgeries: Adenoidectomy, Cardiac, CABG, Coronary Stent, Gallbladder, Tonsillectomy, Transurethral Resection, Vasectomy Respiratory: Chronic Bronchitis, COPD, Pneumonia, Sleep Apnea Currently Using CPAP: Yes Currently Using BIPAP: No Cardiac: Atrial Fibrillation, Chronic Edema/Swelling, Coronary Artery Disease, Heart Attack, High Cholesterol, Hypertension Neurological: Neuropathy Reproductive: No Genitourinary: Prostate Problems, Bladder Infection, UTI-Chronic Gastrointestinal: Chronic Constipation Musculoskeletal: Arthritis, Chronic Back Pain Endocrine: Diabetes, Insulin dep, Hypothyroidsim HEENT: Cataract Loss of Vision: Denies Hearing Impairment: Denies Psychosocial: Anxiety Skin/Integumentary: Pruritis History of Blood Disorders: No Adverse Reaction to Blood Leal: No Family History Cancer 03 FATHER Congestive heart failure 03 MOTHER Family history: Arthritis 03 MOTHER Family history: Asthma 03 MOTHER Family history: Cardiovascular disease 03 MOTHER Family history: Diabetes mellitus 09 BROTHER Family history: Gastrointestinal disease 03 FATHER History of drug abuse 09 BROTHER Asthma, Heart Disease, Hypertension Review of Systems Constitutional: see HPI, weakness EENTM: no symptoms reported Respiratory: cough, dyspnea on exertion, orthopnea, short of breath, wheezing Cardiovascular: no symptoms reported Gastrointestinal: nausea Genitourinary: no symptoms reported Musculoskeletal: back pain, joint pain Skin: no symptoms reported Psychiatric/Neurological: No Symptoms Reported All Other Systems Reviewed Negative Unless Noted: Yes Physical Exam Physical Exam Vital Signs Vital Signs - First Documented 05/28/18 05/28/18 05/28/18 05/28/18 17:45 18:00 19:52 20:55 Temp 98.0 Pulse 65 Resp 29 B/P (MAP) 115/100 (105) Pulse Ox 97 O2 Delivery Nasal Cannula O2 Flow Rate 3.00 FiO2 32 Capillary Refill : Height, Weight, BMI Height: 5'8.00" Weight: 411lbs. 3.0oz. [id number]; 62.7 BMI Method:Stated General Appearance: WD/WN, Chronically ill, Mild Distress (due to tachypnea), Obese Eyes: Bilateral Eye Normal Inspection, Bilateral Eye PERRL HEENT: PERRL/EOMI, Normal ENT Inspection, Pharynx Normal Neck: Full Range of Motion, Normal Inspection, Non Tender, Supple, Carotid Bruit Respiratory: Chest Non Tender, No Accessory Muscle Use, No Respiratory Distress , Crackles, Decreased Breath Sounds, Wheezing Cardiovascular: No Edema, No Gallop, No JVD, No Murmur, Normal Peripheral Pulses, Irregularly Irregular Gastrointestinal: Normal Bowel Sounds, No Organomegaly, No Pulsatile Mass, Non Tender, Soft Back: Normal Inspection, No CVA Tenderness, No Vertebral Tenderness Extremity: Normal Capillary Refill, Normal Inspection, Normal Range of Motion, Non Tender, No Calf Tenderness, Pedal Edema Neurologic/Psychiatric: Alert, Oriented x3, No Motor/Sensory Deficits, Normal Mood/Affect Skin: Normal Color, Warm/Dry Lymphatic: No Adenopathy Results Results/Procedures Labs Laboratory Tests 05/28/18 19:15 05/29/18 04:10 Patient resulted labs reviewed. Assessment/Plan Admission Diagnosis Assessment: AECOPD Acute on chronic bronchitis Volume overload due to diastolic dysfunction requiring IV Lasix and Cardiology consultation Chronic AF DM OOC due to steroids HTN HLP Morbid obesity needs Lapband Not an anticoagulation candidate due to life threatening bleed 3 months ago requiring 5 units of blood Knee pain DJD spine Admission Status: Inpatient Order (span 2 midnights) Reason for Inpatient Admission: IV steroids along with IV Lasix required for at least 3 days Assessment and Plan Plan: IV steroids IV insulin IV abx Lapband consultation Abx Diagnosis/Problems Diagnosis/Problems (1) COPD exacerbation Status: Acute Assessment & Plan: Consult pulmonology Solumedrol Abx: Pip/tazo Albuterol/Ipratropium (2) Diastolic CHF Status: Acute Assessment & Plan: Likely contributing to dyspnea Retaining fluid, developing significant edema Lasix Consult cardiology Qualifiers: Heart failure chronicity: acute Qualified Codes: I50.31 - Acute diastolic (congestive) heart failure (3) Diabetes mellitus Status: Chronic Assessment & Plan: Insulin therapy Qualifiers: Diabetes mellitus type: type 2 Diabetes mellitus long term care social worker insulin use: with nursing home use Diabetes mellitus complication status: with circulatory complication Diabetes mellitus complication detail: with other circulatory complications Qualified Codes: E11.59 - Type 2 diabetes mellitus with other circulatory complications; 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 transplanted heart: [place] heart Associated angina: without angina Qualified Codes: I25.10 - Atherosclerotic heart disease of [place] coronary artery without angina pectoris Clinical Quality Measures DVT/VTE Risk/Contraindication: Risk Factor Score Per Nursin RFS Level Per Nursing on Admit: 4+=Very High VY ROSARIO MEDICAL STUDENT 05/29/18 4557: History of Present Illness HPI/Chief Complaint CC: SOB Pt is 67 WM with a hx of COPD, CHF, DM and obesity who was directly admitted from PCPs office due to SOB. He is chronically 02 dependent, but has felt increasingly weak and dyspnic. He is a prior smoker, quit in and has sleep apnea managed with CPAP. He denies fever, chills or recent sick contact. He denies experiencing any CP. He does have a non-productive cough. Admitted to ICU for treatment of COPDAE. Source: patient Past Aycrksp-Ajnpsp-Ukltxr Hx Past Med/Social Hx: Reviewed Nursing Past Med/Soc Hx Patient Social History Alcohol Use: Denies Use Recreational Drug Use: No Smoking Status: Former Smoker Immunizations Up To Date Tetanus Booster (TDap): Less than 5yrs Pediatric: No Seasonal Allergies Seasonal Allergies: Yes Past Medical History Surgeries: Adenoidectomy, Cardiac, CABG, Coronary Stent, Gallbladder, Tonsillectomy, Transurethral Resection, Vasectomy Respiratory: Chronic Bronchitis, COPD, Pneumonia, Sleep Apnea Currently Using CPAP: Yes Currently Using BIPAP: No Cardiac: Atrial Fibrillation, Chronic Edema/Swelling, Coronary Artery Disease, Heart Attack, High Cholesterol, Hypertension Neurological: Neuropathy Genitourinary: Prostate Problems, Bladder Infection, UTI-Chronic Gastrointestinal: Chronic Constipation Musculoskeletal: Arthritis, Chronic Back Pain Endocrine: Diabetes, Insulin dep, Hypothyroidsim HEENT: Cataract Loss of Vision: Denies Hearing Impairment: Denies Family History Reviewed Nursing Family Hx Cancer 03 FATHER Congestive heart failure 03 MOTHER Family history: Arthritis 03 MOTHER Family history: Asthma 03 MOTHER Family history: Cardiovascular disease 03 MOTHER Family history: Diabetes mellitus 09 BROTHER Family history: Gastrointestinal disease 03 FATHER History of drug abuse 09 BROTHER Asthma, Heart Disease, Hypertension Review of Systems Constitutional: No chills, No fever Respiratory: cough; No hemoptysis, No phlegm; short of breath Cardiovascular: edema Gastrointestinal: No abdominal pain Physical Exam Physical Exam General Appearance: No Apparent Distress, WD/WN HEENT: Normal ENT Inspection Neck: Full Range of Motion, Normal Inspection, Non Tender, Supple, Carotid Bruit Cardiovascular: Regular Rate, Rhythm, No Edema, No Gallop, No JVD, No Murmur, Normal Peripheral Pulses Results Results/Procedures Imaging: Reviewed Imaging Report Imaging Date of Exam: 05/29/18 CHEST 1 VIEW, AP/PA ONLY INDICATION: COPD exacerbation. TECHNIQUE: Single view chest at 3:05 AM. CORRELATION STUDY: 05/28/2018. FINDINGS: The patient is post sternotomy. Multiple sternal wires are fragmented. The heart size is enlarged and the mediastinum is prominent. The vasculature overall appears increased. Mild diffuse opacification of the lung araiza may be reflective of underlying edema. No jd lobar consolidation. Probable effusions. IMPRESSION: Cardiac enlargement with pulmonary vascular congestion, likely a component of pulmonary edema. No jd pulmonary infiltrate. Diagnosis/Problems Diagnosis/Problems (1) COPD exacerbation Status: Acute Assessment & Plan: Consult pulmonology Solumedrol Abx: Pip/tazo Albuterol/Ipratropium (2) Diastolic CHF Status: Acute Assessment & Plan: Likely contributing to dyspnea Retaining fluid, developing significant edema Lasix Consult cardiology Qualifiers: Heart failure chronicity: acute Qualified Codes: I50.31 - Acute diastolic (congestive) heart failure (3) Diabetes mellitus Status: Chronic Assessment & Plan: Insulin therapy Qualifiers: Diabetes mellitus type: type 2 Diabetes mellitus long term care social worker insulin use: with nursing home use Diabetes mellitus complication status: with circulatory complication Diabetes mellitus complication detail: with other circulatory complications Qualified Codes: E11.59 - Type 2 diabetes mellitus with other circulatory complications; Z79.4 - [facility] (current) use of insulin (4) Obesity hypoventilation syndrome Status: Chronic (5) Chronic atrial fibrillation Status: Chronic Assessment & Plan: Followed by cardiology (6) CAD (coronary artery disease) Status: Chronic Qualifiers: Coronary Disease-Associated Artery/Lesion type: [place] artery [place] vs. transplanted heart: [place] heart Associated angina: without angina Qualified Codes: I25.10 - Atherosclerotic heart disease of [place] coronary artery without angina pectoris AMERICA PAT DO May 29, 2018 08:55 VY ROSARIO MEDICAL STUDENT May 29, 2018 16:27
[2018-05-29] MEDS ORDERED: meTOproloL SUCCINATE 50 MG (TOPROL XL) TAB PO NR (09:15)
[2018-05-29] MEDS ORDERED: FUROSEMIDE 40 MG/4 ML INJ (LASIX) IVP NR (09:15)
[2018-05-29] MEDS ORDERED: DILTIAZEM 240 MG (CARDIZEM CD) CAP PO NR (09:15)
[2018-05-29] MEDS ORDERED: FURO80TA3 PO (10:38)
[2018-05-29] MEDS ORDERED: ASPI-999 PO (10:38)
[2018-05-29] MEDS ORDERED: LIDOCAINE (LIDODERM) 5% PATCH TP PRN (11:30)
[2018-05-29] MEDS ORDERED: LACTULOSE 10 GM/15 ML 30 ML POUR BOTTLE FOR ENEMA PO PRN (11:30)
[2018-05-29] MEDS ORDERED: HYDROcodone/APAP 7.5 MG/325 MG (LORTAB, LORCET PLUS) TABLET PO PRN (11:30)
[2018-05-29] MEDS ORDERED: RT-ALBUTEROL SULF 2.5 MG/3 ML PRE-MIX VIAL IH PRN (11:30)
[2018-05-29] MEDS ORDERED: DOCUSATE SODIUM 100 MG (COLACE) CAP PO PRN (11:30)
[2018-05-29] MEDS ORDERED: RT-ALBUTEROL SULF 2.5 MG/3 ML PRE-MIX VIAL INH PRN (11:30)
[2018-05-29] MEDS ORDERED: SENNOSIDES PO PRN (11:30)
[2018-05-29] MEDS ORDERED: LACTULOSE SYRUP 10GM/15ML (ENULOSE) 30ML UDC PO PRN (12:00)
[2018-05-29] MEDS ORDERED: methylPREDNISolone 40 MG/ML (Solu-MEDROL) VIAL IV SCH (12:00)
[2018-05-29] MEDS ORDERED: SENNOSIDES 8.6 MG (SENOKOT) TAB PO PRN (12:15)
[2018-05-29] MEDS ORDERED: LIDOCAINE PATCH REMOVAL TP PRN (12:15)
[2018-05-29] MEDS: SPIRONOLACTONE 25 MG (ALDACTONE) TAB PO SCH (13:40)
[2018-05-29] MEDS: ALPRAZolam 0.25 MG (XANAX) TAB PO PRN (13:40)
[2018-05-29] MEDS ORDERED: NS IV 1000 ML 1,000 ML IV SCH (13:48)
[2018-05-29] MEDS ORDERED: inSUlin (REGULAR) HUMAN 1 UNIT/0.01 ML (CHARGE PER UNIT) IV NR (14:00)
[2018-05-29] MEDS: inSUlin REGULAR TPN/DRIP ONLY 250 UNITS in NORMAL SALINE 250 ML IV SCH (15:06)
[2018-05-29] MEDS ORDERED: INSULIN LISPRO 50 UNIT SQ SCH (16:00)
[2018-05-29] MEDS: FUROSEMIDE 40 MG/4 ML INJ (LASIX) IVP SCH (16:38)
[2018-05-29] MEDS: KCL 10 MEQ TAB (MICRO K) PO SCH (16:38)
--- NOTE | 2018-05-29 17:44 | Consultation-Cardiology ---
HPI-Cardiology Cardiology Consultation: Date of Consultation 05/29/18 Time Seen by a Provider: 09:30 Date of Admission Attending Physician America Hutton DO Admitting Physician America Hutton DO Consulting Physician CATY PENALOZA MD, MA, FACP, FACC, FSCAI, CCDS Physician requesting consult: Dr Hutton HPI: Chief Complaint: CC: Shortness of breath HPI Mr. Ferraro is a 67 year old male admitted to ICU 1 as a direct admit from his PCP 's office yesterday with increasing SOB. He reports starting a few days ago he began to have worsening dyspnea with a dry, hacking cough. He reports increasing bilat LE edema over the last few days as well. No c/o CP, palpitations, syncope or near syncope. He reports abdominal distension as well which he feels is some fluid retention. Denies fever or chills. No n/v/d. Review of Systems-Cardiology Review of Systems Constitutional: No chills, No fever Eyes: No vision change Ears/Nose/Throat: No epistaxis, No recent hearing loss Respiratory: As described under HPI Cardiovascular: As described under HPI Gastrointestinal: No constipation, No diarrhea, No nausea, No vomiting Genitourinary: No dysuria, No hematuria Musculoskeletal: other (chronic back and joint discomfort) Skin: No rash, No ulcerations Psychiatric/Neurological: No anxiety, No depression, No seizure, No focal weakness, No syncope Hematologic: No bleeding abnormalities FJK-Qneymj-Yqdazq Hx Patient Social History Alcohol Use: Denies Use Recreational Drug Use: No Smoking Status: Former Smoker Former smoker/When Quit: Aug 13, 2006 Type Used: Cigarettes 2nd Hand Smoke Exposure: No Recent Foreign Travel: No Recent Infectious Disease Expo: No Physical Abuse Screen: No Sexual Abuse: No Immunizations Up To Date Tetanus Booster (TDap): Less than 5yrs Date of Pneumonia Vaccine: May 13, 2017 Date of Influenza Vaccine: May 13, 2017 Past Medical History PMH As described under Assessment. Family Medical History Family Medical History: Reports mother had CAD and CHF. No reported h/o premature CAD or SCD. Family History: Cancer 03 FATHER Congestive heart failure 03 MOTHER Family history: Arthritis 03 MOTHER Family history: Asthma 03 MOTHER Family history: Cardiovascular disease 03 MOTHER Family history: Diabetes mellitus 09 BROTHER Family history: Gastrointestinal disease 03 FATHER History of drug abuse 09 BROTHER Allergies and Home Medications Allergies Coded Allergies: Bvqvoul-Ehh-Aoh Reductase Inhibitor (Verified Allergy, Unknown, 10/15/17) codeine (Verified Allergy, Unknown, Takes Lortab at home, 05/28/18) fish oil (Verified Allergy, Unknown, 10/15/17) Home Medications Albuterol Sulfate 2.5 Mg/3 Ml Vial.neb, 2.5 MG NEB Q4H PRN for SHORTNESS OF BREATH, (Reported) Albuterol Sulfate 1 Puff Puff, 2 PUFF INH Q4H PRN for SHORTNESS OF BREATH, ( Reported) Aspirin 81 Mg Tab.chew, 81 MG PO DAILY, (Reported) Cetirizine HCl/Pseudoephedrine 1 Each Tab.er.12h, 1 TAB PO DAILY, (Reported) Diltiazem HCl 240 Mg Cap.er.deg, 240 MG PO DAILY, (Reported) Docusate Sodium 100 Mg Capsule, 500 MG PO DAILY PRN for CONSTIPATION-1ST LINE, ( Reported) Esomeprazole Magnesium 20 Mg Capsule.dr, 20 MG PO HS, (Reported) Finasteride 5 Mg Tablet, 5 MG PO DAILY, (Reported) Fluticasone Propionate [address]susp, 2 SPRAYS NS HS, (Reported) Fluticasone/Salmeterol 1 Each Blst.w.dev, 1 PUFF IH BID, (Reported) Furosemide 80 Mg Tablet, 80 MG PO 1300, (Reported) Hydrocodone Bit/Acetaminophen 1 Each Tablet, 1 TAB PO Q6H PRN for PAIN-MODERATE, (Reported) Insulin Detemir 100 Unit/1 Ml Insuln.pen, 40 UNITS SC BID, (Reported) Insulin Lispro 100 Unit/1 Ml Insuln.pen, 50 UNITS SQ ACHS, (Reported) Lactulose 10 Gm/15 Ml Solution, 2 TBS PO Q4H PRN for CONSTIPATION-3RD LINE, ( Reported) Levothyroxine Sodium 25 Mcg Tablet, 25 MCG PO DAILY, (Reported) Lidocaine 1 Each Adh..patch, 1 PATCH TP DAILY PRN for KNEE/BACK PAIN, (Reported) 5% Meloxicam 15 Mg Tablet, 15 MG PO DAILY, (Reported) Metolazone 5 Mg Tablet, 5 MG PO 1300, (Reported) Metoprolol Succinate 50 Mg Tab.er.24h, 50 MG PO DAILY, (Reported) Montelukast Sodium 10 Mg Tablet, 10 MG PO HS, (Reported) Potassium Chloride 10 Meq Tablet.er, 20 MEQ PO BID, (Reported) TAKES 2 (10MEQ) TABLETS Rosuvastatin Calcium 5 Mg Tablet, 5 MG PO DAILY, (Reported) Sennosides 15 Mg Tablet, 1 TAB PO DAILY PRN for CONSTIPATION-5TH LINE, (Reported ) Spironolactone 25 Mg Tablet, 50 MG PO 1300, (Reported) TAKES 2 (25MG) TABLETS Sulfamethoxazole/Trimethoprim 1 Each Tablet, 0.5 TAB PO HS, (Reported) TAKES 1/2 TABLET Tamsulosin HCl 0.4 Mg Cap.er.24h, 0.4 MG PO DAILY, (Reported) Umeclidinium [place]on 62.5 Mcg Blst.w.dev, 1 PUFF INH DAILY, (Reported) Patient Home Medication List Home Medication List Reviewed: Yes Physical Exam-Cardiology Physical Exam Vital Signs/I&O 05/29/18 05/29/18 05/29/18 05/29/18 06:32 06:33 07:00 08:00 Pulse 86 Pulse Ox 97 97 95 O2 Delivery Nasal Cannula Nasal Cannula Nasal Cannula O2 Flow Rate 3.00 3.00 3.00 05/29/18 05/29/18 05/29/18 05/29/18 10:57 12:00 13:00 14:33 Pulse 75 Pulse Ox 97 95 97 O2 Delivery Nasal Cannula Nasal Cannula Nasal Cannula O2 Flow Rate 3.00 3.00 3.00 05/29/18 00:00 Intake Total 450 ml Output Total 500 ml Balance -50 ml Capillary Refill : Constitutional: AAO x 3, well-developed, well-nourished HEENT: PERRL, hearing is well preserved, oral hygience is good Neck: No carotid bruit; carotid pulses are 2 + bilaterally Respiratory: No accessory muscle use, No respiratory distress; chest expansion is symmetric, chest is bilaterally symmetric, crackles (bilat lower lobes with scattered rhonchi; frequent non-productive cough) Cardiovascular: irregularly irregular; No JVD; S1 and S2, systolic murmur Gastrointestinal: No tender; round, distended, audible bowel sounds Rectal: deferred Extremities: significant edema (bilat pitting and non-pitting edema) Neurologic/Psychiatric: grossly intact, power is 5/5 both on sides Skin: No rash, No ulcerations Data Review Labs Laboratory Tests 05/28/18 19:10: B-Type Natriuretic Peptide 117.1H 05/28/18 19:15: White Blood Count 10.1, Red Blood Count 4.01L, Hemoglobin 11.6L, Hematocrit 35L , Mean Corpuscular Volume 88, Mean Corpuscular Hemoglobin 29, Mean Corpuscular Hemoglobin Concent 33, Red Cell Distribution Width 14.7H, Platelet Count 281, Mean Platelet Volume 9.9, Neutrophils (%) (Auto) 67, Lymphocytes (%) (Auto) 19, Monocytes (%) (Auto) 9, Eosinophils (%) (Auto) 5, Basophils (%) (Auto) 0, Neutrophils # (Auto) 6.8, Lymphocytes # (Auto) 1.9, Monocytes # (Auto) 0.9, Eosinophils # (Auto) 0.5H, Basophils # (Auto) 0.0, Blood Gas Puncture Site RIGHT RADIAL, Blood Gas Patient Temperature 97.7, Arterial Blood pH 7.46H, Arterial Blood Partial Pressure CO2 38, Arterial Blood Partial Pressure O2 80, Arterial Blood HCO3 27, Arterial Blood Total CO2 28.0, Arterial Blood Oxygen Saturation 96, Arterial Blood Base Excess 3.1H, Michael Test POSITIVE, Blood Gas Ventilator Setting NO, Blood Gas Inspired Oxygen 3L, Sodium Level 133L, Potassium Level 3.3L, Chloride Level 93L, Carbon Dioxide Level 23, Anion Gap 17H , Blood Urea Nitrogen 23H, Creatinine 1.71H, Estimat Glomerular Filtration Rate 40, BUN/Creatinine Ratio 13, Glucose Level 338H, Lactic Acid Level 1.90, Calcium Level 9.7, Corrected Calcium 9.4, Total Bilirubin 0.6, Aspartate Amino Transf (AST/SGOT) 10, Alanine Aminotransferase (ALT/SGPT) 15, Alkaline Phosphatase 98, Troponin I < 0.30, Total Protein 8.2, Albumin 4.4 05/28/18 21:48: Glucometer 347H 05/29/18 04:10: White Blood Count 11.5H, Red Blood Count 4.14L, Hemoglobin 12.1L, Hematocrit 36L , Mean Corpuscular Volume 86, Mean Corpuscular Hemoglobin 29, Mean Corpuscular Hemoglobin Concent 34, Red Cell Distribution Width 14.4, Platelet Count 259, Mean Platelet Volume 10.1, Neutrophils (%) (Auto) 91H, Lymphocytes (%) (Auto) 8L , Monocytes (%) (Auto) 1, Eosinophils (%) (Auto) 0, Basophils (%) (Auto) 0, Neutrophils # (Auto) 10.5H, Lymphocytes # (Auto) 0.9L, Monocytes # (Auto) 0.1, Eosinophils # (Auto) 0.0, Basophils # (Auto) 0.0, Sodium Level 130L, Potassium Level 4.4, Chloride Level 93L, Carbon Dioxide Level 22, Anion Gap 15H, Blood Urea Nitrogen 28H, Creatinine 1.76H, Estimat Glomerular Filtration Rate 39, BUN/ Creatinine Ratio 16, Glucose Level 466*H, Calcium Level 9.8, Corrected Calcium 9.6, Total Bilirubin 0.6, Aspartate Amino Transf (AST/SGOT) 30, Alanine Aminotransferase (ALT/SGPT) 30, Alkaline Phosphatase 105, Total Protein 8.2, Albumin 4.3, Neutrophils % (Manual) 90, Lymphocytes % (Manual) 5, Monocytes % ( Manual) 2, Eosinophils % (Manual) 0, Basophils % (Manual) 0, Band Neutrophils 1 , Reactive Lymphocytes 2, Toxic Granulation 1+, Polychromasia SLIGHT, Anisocytosis SLIGHT, Phosphorus Level 3.2, Magnesium Level 2.0 05/29/18 06:47: Glucometer 449*H 05/29/18 13:18: Glucometer 531*H 05/29/18 14:52: Glucometer 546*H 05/29/18 16:11: Glucometer 445*H 05/29/18 17:09: Glucometer 393H Microbiology 05/28/18 Blood Culture - Preliminary, Resulted No growth Laboratory Tests 05/28/18 19:15 05/29/18 04:10 A/P-Cardiology Assessment/Admission Diagnosis Dyspnea likely multifactorial - obesity-hypoventilation syndrome, ac on chronic diastolic CHF, ac exacerbation of COPD Obesity (BMI approx 62) with obesity-hypoventilation Chronic diastolic CHF - continue diuretic regimen Persistent a-fib first diagnosed in early February 2016, rate controlled Anemia of undetermined etiology; ongoing occult bleed suspected - management by Dr. Hutton of medical services. Dr Hutton has not allowed reinitiation of OAC - ASA tx only CAD with a h/o CABG in 2006 at [facility] in [place], [place]. On cardiac cath of 11-11-15: Multivessel coronary disease including multiple more than 90% stenosis of the proximal and mid left anterior descending artery. The mid to distal left anterior descending artery is protected with a widely patent left internal mammary artery graft. The left circumflex artery had 99% ostial/ proximal stenosis to which successful stenting was carried out with Promus Premier 3.5 x 20 mm stent with a reduction of stenosis to 0% residual. The distal left circumflex and its obtuse marginal branches have diffuse moderate to moderately severe disease which were not intervened on. The right coronary artery is dominant and had 90% proximal stenosis to which successful stenting was carried out with Promus Premier 2.75 x 28 mm stent with reduction of stenosis to 0% residual. The distal right coronary artery has multiple stenoses of 50 to 60%, which were not intervened on. Cardiac cath of 11-11-15 showed well preserved global left ventricular systolic function and ejection fraction of 55 to 60%. Elevated left ventricular end- diastolic pressure which was measured at approximately 20 mmHg. No significant mitral regurgitation. ABIs on 01/13/16 at [place], [place]: 1.1 on both sides Echocardiogram of 09/14/17 (Dr Costello): LVEF 55-65%, dilated LA, supotimal study Chronic bilat leg swelling, likely due to venous insuff, no evidence of DVT on on venous duplex of 09/13/17 Hypertension COPD Quit smoking in early DM II Chronic renal insufficiency - chronic likely due in some part to diabetic nephropathy Sleep apnea syndrome - CPAP therapy - managed by Dr. Paris Minimal carotid dz on u/s of November 2015 Discussion and Recomendations * Complex management. Multiple issues * Multi-factorial dyspnea as listed above * Acute on chronic diastolic CHF - tx with diuretics * Acute exacerbation of COPD with poss pneumonia - management per medical and pulmonary services * Continue CCB and BB for rate control * He has chronic a-fib for which ideally we would like him to be on OAC for stroke prophylaxis other than ASA. However, d/t chronic anemia for which slow GI bleed is suspected, which is worse when taking stronger OAC, only ASA 81mg has only been allowed by PCP * Monitor lab closely * I discussed his case with Dr Hutton. Obesity and growing BMI are a major source of his symptoms. Bariatric surgery to control wgt should be considered. Dr Hutton will discuss with the patient and make appropriate referrals Clinical Quality Measures DVT/VTE Risk/Contraindication: Risk Factor Score Per Nursin RFS Level Per Nursing on Admit: 4+=Very High CATY PENALOZA MD FAC FAC CCDS May 29, 2018 17:43
[2018-05-29] MEDS: RT-ADVAIR HFA 115/21 MCG PER PUFF IH SCH (18:49)
[2018-05-29] MEDS: FLUTICASONE NASAL SPRAY (FLONASE) 16 GM BTL NS SCH (20:11)
[2018-05-29] MEDS: MONTELUKAST 10 MG (SINGULAIR) TAB PO SCH (20:11)
[2018-05-29] MEDS: PANTOPRAZOLE 20 MG TABLET (PROTONIX) PO SCH (20:11)
[2018-05-29] MEDS ORDERED: NON-FORMULARY MEDICATION 1 EA EA (Esomeprazole Magnesium (Nexium 24Hr) 20 MG) PO SCH (21:00)
[2018-05-29] MEDS ORDERED: NON-FORMULARY MEDICATION 1 EA EA (Insulin Detemir (Levemir Flextouch) 40 UNITS) SC SCH (21:00)
[2018-05-29] MEDS ORDERED: KCL 10 MEQ TAB (MICRO K) PO SCH (21:00)
[2018-05-29] MEDS ORDERED: NON-FORMULARY MEDICATION 1 EA EA (Fluticasone/Salmeterol (Advair 500-50 Diskus) 1 PUFF) IH SCH (21:00)
[2018-05-29] MEDS: inSUlin DETERMIR 1 UNIT/0.01 ML (LEVEMIR) CHARGE PER UNIT SQ SCH (21:42)
[2018-05-30] VITALS: BP 140/68
[2018-05-30] MEDS: PIPERACILLIN SODIUM/TAZOBACTAM 4.5 GM in NS (IVPB) 100 ML IV SCH ×4 (00:01→23:58)
[2018-05-30] MEDS: CATHETER FLUSH 10 ML SYR IV SCH ×4 (00:14→20:40)
[2018-05-30] MEDS: RT-ALBUTEROL/IPRATROPIUM 3 ML (DUONEB) VIAL INH SCH ×6 (01:35→22:29)
[2018-05-30 04:00] VITALS: BP 163/91
[2018-05-30 04:34] LABS: HEMOGLOBIN 11.5 G/DL (13.3-17.7); RED BLOOD COUNT 3.95 10^6/uL (4.35-5.85); RED CELL DISTRIBUTION WIDTH 14.6 % (10.0-14.5); WHITE BLOOD COUNT 20.5 10^3/uL (4.3-11.0)
[2018-05-30 04:55] LABS: ALBUMIN 4.1 GM/DL (3.2-4.5); BILIRUBIN,TOTAL 0.4 MG/DL (0.1-1.0); CALCIUM 9.4 MG/DL (8.5-10.1); CREATININE SERUM 1.7 MG/DL (0.60-1.30); MAGNESIUM 2.2 MG/DL (1.8-2.4); TOTAL PROTEIN 7.7 GM/DL (6.4-8.2)
[2018-05-30] MEDS: FUROSEMIDE 40 MG/4 ML INJ (LASIX) IVP SCH ×2 (06:04→17:20)
[2018-05-30] MEDS: inSUlin ASPART (NovoLOG) 1 UNIT/0.01 ML (CHARGE PER UNIT) SC SCH ×8 (06:05→20:41)
[2018-05-30] MEDS: KCL 10 MEQ TAB (MICRO K) PO SCH ×2 (06:05→17:21)
[2018-05-30] MEDS: LEVOTHYROXINE 25 MCG (LEVOTHROID) TAB PO SCH (06:05)
[2018-05-30] MEDS: RT-BUDESONIDE NEBS 0.5 MG/2ML (PULMICORT) AMP INH SCH ×2 (06:36→22:29)
[2018-05-30] MEDS: UMECLIDINIUM BROMIDE (INCRUSE ELLIPTA) 7'S IH SCH (06:37)
--- NOTE | 2018-05-30 06:54 | Pulmonary Progress Note ---
Subjective Time Seen by a Provider: 07:01 Subjective/Events-last exam PT is currently on insulin gtt. Sepsis Event Evaluation Height, Weight, BMI Height: 5'8.00" Weight: 418lbs. 1.0oz. 189.983801rd; 62.7 BMI Method:Stated Focused Exam Lactate Level 05/28/18 19:15: Lactic Acid Level 1.90 Exam Exam Vital Signs Date Time Temp Pulse Resp B/P (MAP) Pulse Ox O2 Delivery O2 Flow Rate FiO2 05/30/18 06:37 95 Nasal Cannula 3.00 05/30/18 04:00 95 Nasal Cannula 3.00 05/30/18 04:00 68 163/91 (115) Nasal Cannula 3.00 05/30/18 01:35 Nasal Cannula 3.00 05/30/18 01:00 64 05/30/18 00:00 57 140/68 (92) 99 Nasal Cannula 3.00 05/30/18 00:00 95 Nasal Cannula 3.00 05/29/18 22:28 95 Nasal Cannula 3.00 05/29/18 20:00 95 Nasal Cannula 3.00 05/29/18 20:00 77 153/90 (111) Nasal Cannula 3.00 05/29/18 19:00 99 Nasal Cannula 3.00 05/29/18 19:00 73 05/29/18 18:51 97 Nasal Cannula 3.00 05/29/18 17:57 97.6 65 125/93 (104) 92 Nasal Cannula 3.00 05/29/18 17:49 95 Nasal Cannula 3.00 05/29/18 17:48 97.6 65 125/93 (104) 92 Nasal Cannula 3.00 05/29/18 16:00 95 Nasal Cannula 3.00 05/29/18 16:00 97.6 65 125/93 (104) 92 Nasal Cannula 3.00 05/29/18 14:33 97 Nasal Cannula 3.00 05/29/18 13:00 75 05/29/18 12:22 97.6 65 126/76 (93) 92 Nasal Cannula 3.00 05/29/18 12:00 95 Nasal Cannula 3.00 05/29/18 10:57 97 Nasal Cannula 3.00 05/29/18 08:00 95 Nasal Cannula 3.00 05/29/18 08:00 97.9 77 21 166/84 (111) 95 Nasal Cannula 3.00 05/29/18 07:00 86 I & O 05/30/18 07:00 Intake Total 1650 ml Output Total 3500 ml Balance -1850 ml Height & Weight Height: 5'8.00" Weight: 418lbs. 1.0oz. 189.617620il; 62.7 BMI Method:Stated General Appearance: WD/WN, Chronically ill, Mild Distress (due to tachypnea), Obese HEENT: PERRL/EOMI, Normal ENT Inspection, Pharynx Normal Neck: Full Range of Motion, Normal Inspection, Non Tender, Supple, Carotid Bruit Respiratory: Chest Non Tender, No Accessory Muscle Use, No Respiratory Distress , Crackles, Decreased Breath Sounds, Wheezing Cardiovascular: No Edema, No Gallop, No JVD, No Murmur, Normal Peripheral Pulses, Irregularly Irregular Extremity: Normal Capillary Refill, Normal Inspection, Normal Range of Motion, Non Tender, No Calf Tenderness, Pedal Edema Neurologic/Psychiatric: Alert, Oriented x3, No Motor/Sensory Deficits, Normal Mood/Affect Skin: Normal Color, Warm/Dry Lymphatic: No Adenopathy Results Lab Laboratory Tests 05/28/18 19:15 05/29/18 04:10 05/30/18 04:27 Assessment/Plan Assessment/Plan Acute on chronic respiratory failure -Monitor, oxygen COPDAE with persistent cough- -oxygen -SVNs -Solumedrol - D/C IDDM- uncontrolled -Pt is currently on insulin gtt -He was receiving Levemir 40 units BID yesterday. Currently on hold secondary to insulin gtt. Will resume Levemir and titrate insulin gtt to D/C. -I am also d/cing steroids PUlmonary edema -Lasix was given this AM 80mg IV Q12 Morbid obesity with JOSE MANUEL -Home CPAP Hyponatremia -monitor Chronic Afib and CAD -Cardiology following CKD hx of Cellulitis and abscess of foot RAIMUNDO MATTHEWS DO May 30, 2018 6:54 am
[2018-05-30] MEDS ORDERED: KCL 10 MEQ TAB (MICRO K) PO NR (07:00)
[2018-05-30] MEDS: inSUlin DETERMIR 1 UNIT/0.01 ML (LEVEMIR) CHARGE PER UNIT SQ SCH ×4 (07:39→20:40)
[2018-05-30] MEDS: POTASSIUM CL 10MEQ/50ML IVPB 50 ML IV SCH ×4 (07:40→10:53)
[2018-05-30] MEDS: DILTIAZEM 240 MG (CARDIZEM CD) CAP PO SCH (08:27)
[2018-05-30] MEDS: TAMSULOSIN 0.4 MG (FLOMAX) CAP PO SCH (08:27)
[2018-05-30] MEDS: meTOproloL SUCCINATE 50 MG (TOPROL XL) TAB PO SCH (08:28)
[2018-05-30] MEDS: MELOXICAM 7.5 MG (MOBIC) TABLET PO SCH (08:28)
[2018-05-30] MEDS: ALPRAZolam 0.25 MG (XANAX) TAB PO PRN (08:29)
[2018-05-30] MEDS: FINASTERIDE (PROSCAR) 5 MG TAB PO SCH (08:29)
[2018-05-30] MEDS: ROSUVASTATIN 5 MG (CRESTOR) TABLET PO SCH (08:37)
[2018-05-30] MEDS: ASPIRIN 81 MG CHEW (CHILDREN'S ASA) PO SCH (08:38)
[2018-05-30] MEDS ORDERED: meTOproloL SUCCINATE 50 MG (TOPROL XL) TAB PO SCH (09:00)
[2018-05-30] MEDS ORDERED: NON-FORMULARY MEDICATION 1 EA EA (Meloxicam 15 MG) PO SCH (09:00)
[2018-05-30] MEDS ORDERED: NON-FORMULARY MEDICATION 1 EA EA (Diltiazem HCl (Dilt-Xr) 240 MG) PO SCH (09:00)
--- NOTE | 2018-05-30 09:03 | Progress Note-Cardiology ---
Cardiology SOAP Progress Note Subjective: Sitting up on the side of the bed. Feels his breathing is somewhat better today. No c/o CP, palpitations, syncope or near syncope. Feels LE edema is better this morning. Reports he was on an insulin gtt over night. Objective: I&O/Vital Signs 05/30/18 05/30/18 05/30/18 05/30/18 01:00 01:35 04:00 04:00 Pulse 64 68 B/P (MAP) 163/91 (115) Pulse Ox 95 O2 Delivery Nasal Cannula Nasal Cannula Nasal Cannula O2 Flow Rate 3.00 3.00 3.00 05/30/18 05/30/18 05/30/18 05/30/18 06:37 07:00 08:00 08:58 Temp 96.4 Pulse 96 Pulse Ox 95 95 O2 Delivery Nasal Cannula Nasal Cannula O2 Flow Rate 3.00 3.00 05/30/18 05/30/18 09:29 10:46 Pulse Ox 95 95 O2 Delivery Nasal Cannula Nasal Cannula O2 Flow Rate 3.00 3.00 05/30/18 00:00 Intake Total 1150 ml Output Total 2500 ml Balance -1350 ml Weight (Pounds): 418 Weight (Ounces): 1.0 Weight (Calculated Kilograms): 189.548566 Constitutional: AAO x 3, well-developed, well-nourished Respiratory: No accessory muscle use, No respiratory distress; chest expansion is symmetric, chest is bilaterally symmetric, crackles (bilat lower lobes with scattered rhonchi; frequent non-productive cough) Cardiovascular: irregularly irregular; No JVD; S1 and S2, systolic murmur Gastrointestional: No tender; round, distended, audible bowel sounds Extremities: significant edema (bilat pitting and non-pitting edema) Neurologic/Psychiatric: grossly intact, power is 5/5 both on sides Skin: No rash, No ulcerations Results/Procedures: Labs Laboratory Tests 05/29/18 13:18: Glucometer 531*H 05/29/18 14:52: Glucometer 546*H 05/29/18 16:11: Glucometer 445*H 05/29/18 17:09: Glucometer 393H 05/29/18 18:08: Glucometer 387H 05/29/18 19:04: Glucometer 267H 05/29/18 20:09: Glucometer 196H 05/29/18 21:09: Glucometer 158H 05/29/18 22:05: Glucometer 168H 05/29/18 22:58: Glucometer 200H 05/29/18 23:58: Glucometer 212H 05/30/18 00:56: Glucometer 190H 05/30/18 02:02: Glucometer 178H 05/30/18 03:08: Glucometer 148H 05/30/18 03:58: Glucometer 133H 05/30/18 04:27: White Blood Count 20.5H, Red Blood Count 3.95L, Hemoglobin 11.5L, Hematocrit 34L , Mean Corpuscular Volume 86, Mean Corpuscular Hemoglobin 29, Mean Corpuscular Hemoglobin Concent 34, Red Cell Distribution Width 14.6H, Platelet Count 254, Mean Platelet Volume 10.0, Sodium Level 133L, Potassium Level 3.0L, Chloride Level 96L, Carbon Dioxide Level 20L, Anion Gap 17H, Blood Urea Nitrogen 47H, Creatinine 1.70H, Estimat Glomerular Filtration Rate 40, BUN/Creatinine Ratio 28 , Glucose Level 132H, Calcium Level 9.4, Corrected Calcium 9.3, Magnesium Level 2.2, Total Bilirubin 0.4, Aspartate Amino Transf (AST/SGOT) 30, Alanine Aminotransferase (ALT/SGPT) 32, Alkaline Phosphatase 88, Total Protein 7.7, Albumin 4.1 05/30/18 05:10: Glucometer 102 05/30/18 06:01: Glucometer 87 05/30/18 07:18: Glucometer 107 05/30/18 08:02: Glucometer 150H 05/30/18 09:04: Glucometer 210H 05/30/18 10:00: Glucometer 201H 05/30/18 11:06: Glucometer 246H Microbiology 05/28/18 Blood Culture - Preliminary, Resulted No growth Laboratory Tests 05/28/18 19:15 05/29/18 04:10 05/30/18 04:27 A/P: Assessment: Dyspnea likely multifactorial - obesity-hypoventilation syndrome, ac on chronic diastolic CHF, ac exacerbation of COPD Obesity (BMI approx 62) with obesity-hypoventilation Chronic diastolic CHF - continue diuretic regimen Persistent a-fib first diagnosed in early February 2016, rate controlled Hypokalemia Hyponatremia - improving Anemia of undetermined etiology; ongoing occult bleed suspected - management by Dr. Hutton of medical services. Dr Hutton has not allowed reinitiation of OAC - ASA tx only CAD with a h/o CABG in 2006 at [facility] in [place], [place]. On cardiac cath of 11-11-15: Multivessel coronary disease including multiple more than 90% stenosis of the proximal and mid left anterior descending artery. The mid to distal left anterior descending artery is protected with a widely patent left internal mammary artery graft. The left circumflex artery had 99% ostial/ proximal stenosis to which successful stenting was carried out with Promus Premier 3.5 x 20 mm stent with a reduction of stenosis to 0% residual. The distal left circumflex and its obtuse marginal branches have diffuse moderate to moderately severe disease which were not intervened on. The right coronary artery is dominant and had 90% proximal stenosis to which successful stenting was carried out with Promus Premier 2.75 x 28 mm stent with reduction of stenosis to 0% residual. The distal right coronary artery has multiple stenoses of 50 to 60%, which were not intervened on. Cardiac cath of 11-11-15 showed well preserved global left ventricular systolic function and ejection fraction of 55 to 60%. Elevated left ventricular end- diastolic pressure which was measured at approximately 20 mmHg. No significant mitral regurgitation. ABIs on 01/13/16 at [place], [place]: 1.1 on both sides Echocardiogram of 09/14/17 (Dr Costello): LVEF 55-65%, dilated LA, supotimal study Chronic bilat leg swelling, likely due to venous insuff, no evidence of DVT on on venous duplex of 09/13/17 Hypertension COPD Quit smoking in early DM II Chronic renal insufficiency - chronic likely due in some part to diabetic nephropathy Sleep apnea syndrome - CPAP therapy - managed by Dr. Paris Minimal carotid dz on u/s of November 2015 Plan: * Complex management. Multiple issues * Multi-factorial dyspnea as listed above * Acute on chronic diastolic CHF - tx with diuretics * Replace electrolytes * Acute exacerbation of COPD - management per medical and pulmonary services * Continue CCB and BB for rate control * He has chronic a-fib for which ideally we would like him to be on OAC for stroke prophylaxis other than ASA. However, d/t chronic anemia for which slow GI bleed is suspected, which is worse when taking stronger OAC, only ASA 81mg has only been allowed by PCP * Monitor lab closely * Dr. Bishop has discussed his case with Dr Hutton. Obesity and growing BMI are a major source of his symptoms. Bariatric surgery to control wgt should be considered. Dr Hutton will discuss with the patient and make appropriate referrals Physician Assessment Physician Assessment Shortness of breath and leg swelling are modestly improved No cp or palp or syncope Lungs: diminished air entry at lung bases Cor: irreg Ext: 2+ edema. No c/c A&R * As documented in our note above that I updated (italics) and as noted below * Replenish lytes * Monitor labs * I again reviewed with him his CV issues and our treatment plan BENJAMIN ARROYO May 30, 2018 09:03 CATY BISHOP MD FACP [facility] May 30, 2018 12:19
--- NOTE | 2018-05-30 10:11 | Physician Query Clarification ---
PQ-Conflicting Diagnosis Admission/Discharge Admission Date: May 28, 2018 at 17:40 Discharge Date: The medical record reflects the following clinical scenario: History/Risk Factors: Acute exacerbation of COPD. Acute on chronic diastolic congestive heart failure. Clinical Findings:Hypoxia, dyspnea,tachypnea. Pulse 65, Resp 29, Pulse ox 97%. Blood gases: pH 7.46, pC02 38, pO2 80 Treatment: NIV CPAP, Nasal cannula 3L 02. Question: Do you agree with the impression of the Acute on chronic respiratory failure per Dr. Whitney. Please document a response below. PHYSICIAN RESPONSE Do you agree w/Consulting Dx?: Yes In responding to this query, please exercise your independent professional judgment. The purpose of this communication is to more accurately reflect the complexity of your patients condition. The fact that a question is asked does not imply that any particular answer is desired or expected. Thank you for your timely response to this clarification. Requestors name: Hyacinth Zafar [facility] Phone # [phone] THIS PHYSICIAN QUERY FORM IS A PERMANENT PART OF THE MEDICAL RECORD HYACINTH ZAFAR May 30, 2018 10:11 CHAO PAT DO May 31, 2018 17:29
[2018-05-30] MEDS: ADVAIR HFA 115/21 MCG INHALER 8 GM IH SCH ×2 (10:46→19:21)
--- NOTE | 2018-05-30 11:29 | Progress Note-Hospitalist ---
CHAO PAT DO 05/30/18 1128: Subjective HPI/CC On Admission Date Seen by Provider: May 30, 2018 Time Seen by Provider: 10:00 CC: Dyspnea HPI: This is a 67yoWM clinic patient of mine for the past 12 yrs w/h/o frequent hospitalizations due to AECOPD. He presented to my office with dyspnea and was found to be hypoxic and in need of IV steroids and IV abx. I conferred with Dr Bishop after he evaluated him and he was found to have recurrent volume overload from diastolic dysfunction and ordered Lasix and recommended Lapband so I spoke to Dr Joy well known to him from prior choly and he will see him in consultation. Subjective/Events-last exam Patient feels better Glucose improved Creat 1.89 Potassium being supplemented No pain is reported BM+ last night Checked meds and labs Review of Systems Pulmonary: Dyspnea Focused Exam Lactate Level 05/28/18 19:15: Lactic Acid Level 1.90 Objective Exam Vital Signs Vital Signs Date Time Temp Pulse Resp B/P (MAP) Pulse Ox O2 Delivery O2 Flow Rate FiO2 05/31/18 10:17 98 Nasal Cannula 3.00 05/31/18 08:00 97.5 67 22 104/87 (93) 05/31/18 07:11 32 Capillary Refill : General Appearance: No Apparent Distress, WD/WN, Chronically ill, Obese Respiratory: Chest Non Tender, Lungs Clear, No Accessory Muscle Use, No Respiratory Distress, Decreased Breath Sounds Cardiovascular: Regular Rate, Rhythm, No Edema, No Gallop, No JVD, No Murmur, Normal Peripheral Pulses Extremity: Pedal Edema Neurologic/Psychiatric: Alert, Oriented x3, No Motor/Sensory Deficits, Normal Mood/Affect Results/Procedures Lab Laboratory Tests 05/31/18 03:40 Patient resulted labs reviewed. Imaging: Reviewed Imaging Report Assessment/Plan Assessment and Plan Assess & Plan/Chief Complaint Assessment: AECOPD Volume overload DM OOC Plan: IV steroids IV insulin IV abx Lapband consultation Abx Diagnosis/Problems Diagnosis/Problems (1) COPD exacerbation Status: Acute Assessment & Plan: Consult pulmonology Solumedrol Abx: Pip/tazo Albuterol/Ipratropium (2) Diastolic CHF Status: Acute Assessment & Plan: Likely contributing to dyspnea Retaining fluid, developing significant edema Lasix Consult cardiology Qualifiers: Heart failure chronicity: acute Qualified Codes: I50.31 - Acute diastolic (congestive) heart failure (3) Diabetes mellitus Status: Chronic Assessment & Plan: Insulin therapy Qualifiers: Diabetes mellitus type: type 2 Diabetes mellitus ad terminal makeup operator insulin use: with ad terminal makeup operator use Diabetes mellitus complication status: with circulatory complication Diabetes mellitus complication detail: with other circulatory complications Qualified Codes: E11.59 - Type 2 diabetes mellitus with other circulatory complications; Z79.4 - CHCF (current) use of insulin (4) Obesity hypoventilation syndrome Status: Chronic (5) Chronic atrial fibrillation Status: Chronic Assessment & Plan: Followed by cardiology (6) CAD (coronary artery disease) Status: Chronic Qualifiers: Coronary Disease-Associated Artery/Lesion type: [place] artery [place] vs. transplanted heart: [place] heart Associated angina: without angina Qualified Codes: I25.10 - Atherosclerotic heart disease of [place] coronary artery without angina pectoris Clinical Quality Measures DVT/VTE Risk/Contraindication: Risk Factor Score Per Nursin RFS Level Per Nursing on Admit: 4+=Very High VY ROSARIO MEDICAL STUDENT 05/31/18 1112: CHAO PAT DO May 30, 2018 11:28 VY ROSARIO MEDICAL STUDENT May 31, 2018 11:12
[2018-05-30] MEDS ORDERED: LACTULOSE SYRUP 10GM/15ML (ENULOSE) 30ML UDC PO NR (11:45)
[2018-05-30] MEDS: inSUlin REGULAR TPN/DRIP ONLY 250 UNITS in NORMAL SALINE 250 ML IV SCH (14:26)
[2018-05-30] MEDS: SPIRONOLACTONE 25 MG (ALDACTONE) TAB PO SCH (14:31)
[2018-05-30 16:00] VITALS: BP 154/78
[2018-05-30] MEDS: POLYETHYLENE GLYCOL 17 GM (MIRALAX) PACK PO SCH ×2 (17:02→20:40)
[2018-05-30] MEDS: FLUTICASONE NASAL SPRAY (FLONASE) 16 GM BTL NS SCH (20:39)
[2018-05-30] MEDS: MONTELUKAST 10 MG (SINGULAIR) TAB PO SCH (20:39)
[2018-05-30] MEDS: PANTOPRAZOLE 20 MG TABLET (PROTONIX) PO SCH (20:39)
[2018-05-30 20:55] VITALS: BP 154/78
[2018-05-31 00:13] VITALS: BP 105/53
[2018-05-31] MEDS: RT-ALBUTEROL/IPRATROPIUM 3 ML (DUONEB) VIAL INH SCH ×6 (02:46→21:25)
[2018-05-31 04:01] LABS: HEMOGLOBIN 11.3 G/DL (13.3-17.7); MEAN PLATELET VOLUME 9.8 FL (7.4-10.4); RED BLOOD COUNT 3.82 10^6/uL (4.35-5.85); RED CELL DISTRIBUTION WIDTH 14.7 % (10.0-14.5); WHITE BLOOD COUNT 17.6 10^3/uL (4.3-11.0)
[2018-05-31 04:24] LABS: CALCIUM 8.7 MG/DL (8.5-10.1); CREATININE SERUM 1.89 MG/DL (0.60-1.30); POTASSIUM 3.1 MMOL/L (3.6-5.0)
[2018-05-31] MEDS ORDERED: KCL 10 MEQ TAB (MICRO K) PO ONE (05:15)
--- NOTE | 2018-05-31 06:06 | Pulmonary Progress Note ---
Subjective Time Seen by a Provider: 06:09 Subjective/Events-last exam PT appears to be doing better. He is off insulin gtt now. He did have an episode of hypoglycemia during the night. RN woke him up to eat. Sepsis Event Evaluation Height, Weight, BMI Height: 5'8.00" Weight: 418lbs. 1.0oz. 189.993825xc; 62.7 BMI Method:Stated Focused Exam Lactate Level 05/28/18 19:15: Lactic Acid Level 1.90 Exam Exam Vital Signs Date Time Temp Pulse Resp B/P (MAP) Pulse Ox O2 Delivery O2 Flow Rate FiO2 05/31/18 02:46 95 Nasal Cannula 3.00 05/31/18 01:00 74 05/31/18 00:13 72 105/53 (70) 94 Nasal Cannula 3.00 05/31/18 00:00 95 Nasal Cannula 3.00 05/30/18 22:37 95 Nasal Cannula 3.00 05/30/18 22:32 95 Nasal Cannula 3.00 05/30/18 20:55 154/78 (103) 05/30/18 20:00 95 Nasal Cannula 3.00 05/30/18 19:22 95 Nasal Cannula 3.00 05/30/18 19:00 74 05/30/18 16:00 68 154/78 (103) Nasal Cannula 3.00 05/30/18 16:00 95 Nasal Cannula 3.00 05/30/18 13:47 95 Nasal Cannula 3.00 05/30/18 12:21 96.3 05/30/18 12:00 95 Nasal Cannula 3.00 05/30/18 10:46 95 Nasal Cannula 3.00 05/30/18 09:29 95 Nasal Cannula 3.00 05/30/18 08:58 96.4 05/30/18 08:00 95 Nasal Cannula 3.00 05/30/18 07:00 96 05/30/18 06:37 95 Nasal Cannula 3.00 I & O 05/31/18 07:00 Intake Total 850 ml Output Total 1050 ml Balance -200 ml Height & Weight Height: 5'8.00" Weight: 418lbs. 1.0oz. 189.279809wo; 62.7 BMI Method:Stated General Appearance: No Apparent Distress, WD/WN, Chronically ill, Obese HEENT: PERRL/EOMI, Normal ENT Inspection, Pharynx Normal Neck: Full Range of Motion, Normal Inspection, Non Tender, Supple, Carotid Bruit Respiratory: Chest Non Tender, No Accessory Muscle Use, No Respiratory Distress , Crackles, Decreased Breath Sounds, Wheezing Cardiovascular: No Edema, No Gallop, No JVD, No Murmur, Normal Peripheral Pulses, Irregularly Irregular Extremity: Normal Capillary Refill, Normal Inspection, Normal Range of Motion, Non Tender, No Calf Tenderness, Pedal Edema Neurologic/Psychiatric: Alert, Oriented x3, No Motor/Sensory Deficits, Normal Mood/Affect Skin: Normal Color, Warm/Dry Lymphatic: No Adenopathy Results Lab Laboratory Tests 05/30/18 04:27 05/31/18 03:40 Assessment/Plan Assessment/Plan Acute on chronic respiratory failure -Monitor, oxygen -CHeck PA/Lat CXR this AM COPDAE with persistent cough- -oxygen -SVNs -Solumedrol - D/C Worsening renal function -Hold spironolactone and decrease Lasix to 40 daily -Continue to monitor renal and lung function close IDDM- uncontrolled -Pt is off insulin gtt PUlmonary edema -Lasix was given this AM 80mg IV Q12 Morbid obesity with JOSE MANUEL -Home CPAP Hyponatremia -monitor Chronic Afib and CAD -Cardiology following CKD hx of Cellulitis and abscess of foot RAIMUNDO MATTHEWS DO May 31, 2018 06:06
[2018-05-31] MEDS: inSUlin ASPART (NovoLOG) 1 UNIT/0.01 ML (CHARGE PER UNIT) SC SCH ×8 (06:09→21:23)
[2018-05-31] MEDS: CATHETER FLUSH 10 ML SYR IV SCH ×3 (06:09→21:22)
[2018-05-31] MEDS: LEVOTHYROXINE 25 MCG (LEVOTHROID) TAB PO SCH (06:09)
[2018-05-31] MEDS: KCL 10 MEQ TAB (MICRO K) PO SCH ×2 (06:10→16:38)
[2018-05-31] MEDS: RT-ADVAIR HFA 115/21 MCG PER PUFF IH SCH (06:11)
[2018-05-31] MEDS: ADVAIR HFA 115/21 MCG INHALER 8 GM IH SCH ×2 (06:23→21:35)
[2018-05-31] MEDS: RT-BUDESONIDE NEBS 0.5 MG/2ML (PULMICORT) AMP INH SCH ×2 (06:24→18:15)
[2018-05-31 07:11] VITALS: BP 105/53
[2018-05-31] MEDS: UMECLIDINIUM BROMIDE (INCRUSE ELLIPTA) 7'S IH SCH (07:16)
[2018-05-31 08:00] VITALS: BP 104/87
--- NOTE | 2018-05-31 08:29 | Progress Note-Cardiology ---
Cardiology SOAP Progress Note Subjective: Transferred to room 404. States he feels his breathing is better this morning. No c/o CP or palpitations, C/O LE edema, but feels it has improved in his calves, worse in his ankles and feet. Reports episode of low blood sugar early this morning. Objective: I&O/Vital Signs 05/31/18 05/31/18 05/31/18 05/31/18 06:20 07:00 07:11 08:00 Temp 97.5 Pulse 71 67 Resp 22 B/P (MAP) 104/87 (93) Pulse Ox 100 100 98 O2 Delivery Nasal Cannula Nasal Cannula O2 Flow Rate 3.00 3.00 FiO2 32 05/31/18 05/31/18 05/31/18 05/31/18 09:00 10:17 12:00 14:29 Temp 97.7 Pulse 80 Resp 20 B/P (MAP) 140/84 (102) Pulse Ox 98 95 97 O2 Delivery Nasal Cannula Nasal Cannula Nasal Cannula Nasal Cannula O2 Flow Rate 3.00 3.00 3.00 3.00 05/31/18 00:00 Intake Total 850 ml Output Total 1050 ml Balance -200 ml Weight (Pounds): 418 Weight (Ounces): 1.0 Weight (Calculated Kilograms): 189.343543 Constitutional: AAO x 3, well-developed, well-nourished Respiratory: No accessory muscle use, No respiratory distress; chest expansion is symmetric, chest is bilaterally symmetric, crackles (bilat lower lobes with scattered rhonchi) Cardiovascular: irregularly irregular; No JVD; S1 and S2, systolic murmur Gastrointestional: No tender; round, distended, audible bowel sounds Extremities: significant edema (bilat pitting and non-pitting edema) Neurologic/Psychiatric: grossly intact, power is 5/5 both on sides Skin: No rash, No ulcerations Results/Procedures: Labs Laboratory Tests 05/30/18 16:56: Glucometer 198H 05/30/18 20:28: Glucometer 157H 05/31/18 00:21: Glucometer 59*L 05/31/18 00:30: Glucometer 61L 05/31/18 00:40: Glucometer 79 05/31/18 03:40: White Blood Count 17.6H, Red Blood Count 3.82L, Hemoglobin 11.3L, Hematocrit 33L , Mean Corpuscular Volume 87, Mean Corpuscular Hemoglobin 30, Mean Corpuscular Hemoglobin Concent 34, Red Cell Distribution Width 14.7H, Platelet Count 263, Mean Platelet Volume 9.8, Sodium Level 134L, Potassium Level 3.1L, Chloride Level 96L, Carbon Dioxide Level 20L, Anion Gap 18H, Blood Urea Nitrogen 59H, Creatinine 1.89H, Estimat Glomerular Filtration Rate 36, BUN/Creatinine Ratio 31 , Glucose Level 190H, Calcium Level 8.7 05/31/18 05:22: Glucometer 215H 05/31/18 11:20: Glucometer 251H 05/31/18 16:08: Glucometer 117H Microbiology 05/28/18 Blood Culture - Preliminary, Resulted No growth Laboratory Tests 05/30/18 04:27 05/31/18 03:40 A/P: Assessment: Dyspnea likely multifactorial - obesity-hypoventilation syndrome, ac on chronic diastolic CHF, ac exacerbation of COPD Obesity (BMI approx 62) with obesity-hypoventilation Chronic diastolic CHF - continue diuretic regimen Persistent a-fib first diagnosed in early February 2016, rate controlled Hypokalemia Hyponatremia - improving Acute on chronic renal insufficiency - chronic likely due in some part to diabetic nephropathy; acute likely d/t aggressive diuresis Anemia of undetermined etiology; ongoing occult bleed suspected - management by Dr. uHtton of medical services. Dr Hutton has not allowed reinitiation of OAC - ASA tx only CAD with a h/o CABG in 2006 at [facility] in [place], [place]. On cardiac cath of 11-11-15: Multivessel coronary disease including multiple more than 90% stenosis of the proximal and mid left anterior descending artery. The mid to distal left anterior descending artery is protected with a widely patent left internal mammary artery graft. The left circumflex artery had 99% ostial/ proximal stenosis to which successful stenting was carried out with Promus Premier 3.5 x 20 mm stent with a reduction of stenosis to 0% residual. The distal left circumflex and its obtuse marginal branches have diffuse moderate to moderately severe disease which were not intervened on. The right coronary artery is dominant and had 90% proximal stenosis to which successful stenting was carried out with Promus Premier 2.75 x 28 mm stent with reduction of stenosis to 0% residual. The distal right coronary artery has multiple stenoses of 50 to 60%, which were not intervened on. Cardiac cath of 11-11-15 showed well preserved global left ventricular systolic function and ejection fraction of 55 to 60%. Elevated left ventricular end- diastolic pressure which was measured at approximately 20 mmHg. No significant mitral regurgitation. ABIs on 01/13/16 at [facility], [place], [place]: 1.1 on both sides Echocardiogram of 09/14/17 (Dr Costello): LVEF 55-65%, dilated LA, supotimal study Chronic bilat leg swelling, likely due to venous insuff, no evidence of DVT on on venous duplex of 09/13/17 Hypertension COPD Quit smoking in early DM II Sleep apnea syndrome - CPAP therapy - managed by Dr. Paris Minimal carotid dz on u/s of November 2015 Plan: * Complex management. Multiple issues * Multi-factorial dyspnea as listed above * Acute on chronic diastolic CHF - clinically improving * Replace electrolytes * Acute exacerbation of COPD - management per medical and pulmonary services * Continue CCB and BB for rate control * He has chronic a-fib for which ideally we would like him to be on OAC for stroke prophylaxis other than ASA. However, d/t chronic anemia for which slow GI bleed is suspected, which is worse when taking stronger OAC, only ASA 81mg has only been allowed by PCP * Monitor lab closely * Dr. Bishop has discussed his case with Dr Hutton. Obesity and growing BMI are a major source of his symptoms. Bariatric surgery to control wgt should be considered. Dr Hutton will discuss with the patient and make appropriate referrals * Worsening renal function likely in part d/t aggressive diuresis - dose has been reduced by pulmonary services Physician Assessment Physician Assessment Shortness of breath and leg swelling are modestly improved No cp or palp or syncope Lungs: diminished air entry at lung bases Cor: irreg Ext: 2+ edema. No c/c A&R * As documented in our note above that I updated (italics) and as noted below * Replenish lytes * Monitor labs * I again reviewed with him his CV issues and our treatment plan * Ok for d/c from card standpoint * Outpt card f/u advised * Dr Costello covering Card BENJAMIN Salmeron [facility] May 31, 2018 08:29 CATY BISHOP MD [facility] May 31, 2018 16:36
[2018-05-31] MEDS: MELOXICAM 7.5 MG (MOBIC) TABLET PO SCH (08:33)
[2018-05-31] MEDS: ROSUVASTATIN 5 MG (CRESTOR) TABLET PO SCH (08:33)
[2018-05-31] MEDS: TAMSULOSIN 0.4 MG (FLOMAX) CAP PO SCH (08:33)
[2018-05-31] MEDS: FINASTERIDE (PROSCAR) 5 MG TAB PO SCH (08:33)
[2018-05-31] MEDS: DILTIAZEM 240 MG (CARDIZEM CD) CAP PO SCH (08:33)
[2018-05-31] MEDS: ASPIRIN 81 MG CHEW (CHILDREN'S ASA) PO SCH (08:33)
[2018-05-31] MEDS: POLYETHYLENE GLYCOL 17 GM (MIRALAX) PACK PO SCH ×2 (08:34→21:22)
[2018-05-31] MEDS: FUROSEMIDE 40 MG/4 ML INJ (LASIX) IVP SCH (09:18)
[2018-05-31] MEDS: meTOproloL SUCCINATE 50 MG (TOPROL XL) TAB PO SCH (09:18)
[2018-05-31] MEDS: inSUlin DETERMIR 1 UNIT/0.01 ML (LEVEMIR) CHARGE PER UNIT SQ SCH ×2 (09:19→21:23)
[2018-05-31] MEDS: PIPERACILLIN SODIUM/TAZOBACTAM 4.5 GM in NS (IVPB) 100 ML IV SCH ×3 (09:19→23:45)
--- NOTE | 2018-05-31 10:01 | Diagnostic Imaging Report ---
INDICATION: Extreme shortness of breath. TECHNIQUE: Two view chest 9:44 AM CORRELATION STUDY: 05/29/2018 FINDINGS: Patient's poststernotomy with multiple fragmented sternal wires. Cardiac enlargement with presence of pulmonary vasculature perihilar edema. Severity of congestive changes appearing slightly less severe from previous study. Lung araiza appear generally stable. No significant pneumothorax. IMPRESSION: 1. Cardiac enlargement presence of pulmonary vascular congestion but overall appearing less severe from previous study. Dictated by: Dictated on workstation # [id number]
[2018-05-31 12:00] VITALS: BP 140/84
[2018-05-31 16:00] VITALS: BP 156/74
[2018-05-31 20:00] VITALS: BP 146/70
[2018-05-31] MEDS: FLUTICASONE NASAL SPRAY (FLONASE) 16 GM BTL NS SCH (21:22)
[2018-05-31] MEDS: MONTELUKAST 10 MG (SINGULAIR) TAB PO SCH (21:22)
[2018-05-31] MEDS: PANTOPRAZOLE 20 MG TABLET (PROTONIX) PO SCH (21:22)
[2018-06-01] VITALS: BP 145/90
[2018-06-01 00:04] VITALS: BP 165/84
[2018-06-01] MEDS: RT-ALBUTEROL/IPRATROPIUM 3 ML (DUONEB) VIAL INH SCH ×4 (02:08→14:32)
[2018-06-01 04:00] VITALS: BP 140/80
--- NOTE | 2018-06-01 05:50 | Pulmonary Progress Note ---
Subjective Time Seen by a Provider: 05:50 Subjective/Events-last exam NO complications from pulmonary standpoint noted. Sepsis Event Evaluation Height, Weight, BMI Height: 5'8.00" Weight: 417lbs. 1.0oz. 189.316679jw; 62.7 BMI Method:Stated Exam Exam Vital Signs Date Time Temp Pulse Resp B/P (MAP) Pulse Ox O2 Delivery O2 Flow Rate FiO2 06/01/18 02:08 97 Nasal Cannula 3.50 06/01/18 01:00 74 06/01/18 00:04 86 95 32 06/01/18 00:00 98.6 73 16 145/90 (108) 97 Nasal Cannula 3.00 05/31/18 23:52 95 Nasal Cannula 3.00 05/31/18 21:30 97 Nasal Cannula 3.00 05/31/18 21:25 97 Nasal Cannula 3.00 05/31/18 21:00 Nasal Cannula 3.00 05/31/18 20:00 97.6 80 16 146/70 (95) 96 Nasal Cannula 3.00 05/31/18 19:00 84 05/31/18 18:26 97 Nasal Cannula 3.00 05/31/18 18:16 96 Nasal Cannula 3.00 05/31/18 16:00 97.8 71 18 156/74 (101) 97 Nasal Cannula 3.00 05/31/18 14:29 97 Nasal Cannula 3.00 05/31/18 12:00 97.7 80 20 140/84 (102) 95 Nasal Cannula 3.00 05/31/18 10:17 98 Nasal Cannula 3.00 05/31/18 09:00 Nasal Cannula 3.00 05/31/18 08:00 97.5 67 22 104/87 (93) 98 Nasal Cannula 3.00 05/31/18 07:11 100 32 05/31/18 07:00 71 05/31/18 06:20 100 Nasal Cannula 3.00 I & O 06/01/18 07:00 Intake Total 1530 ml Output Total 2900 ml Balance -1370 ml Height & Weight Height: 5'8.00" Weight: 417lbs. 1.0oz. 189.204767ha; 62.7 BMI Method:Stated General Appearance: No Apparent Distress, WD/WN, Chronically ill, Obese HEENT: PERRL/EOMI, Normal ENT Inspection, Pharynx Normal Neck: Full Range of Motion, Normal Inspection, Non Tender, Supple, Carotid Bruit Respiratory: Chest Non Tender, Lungs Clear, No Accessory Muscle Use, No Respiratory Distress, Decreased Breath Sounds Cardiovascular: Regular Rate, Rhythm, No Edema, No Gallop, No JVD, No Murmur, Normal Peripheral Pulses Extremity: Pedal Edema Neurologic/Psychiatric: Alert, Oriented x3, No Motor/Sensory Deficits, Normal Mood/Affect Skin: Normal Color, Warm/Dry Lymphatic: No Adenopathy Results Lab Laboratory Tests 05/31/18 03:40 Assessment/Plan Assessment/Plan Acute on chronic respiratory failure -Monitor, oxygen COPDAE with persistent cough- improved -oxygen -SVNs -Solumedrol - D/C Renal failure - monitor -labs pending IDDM- uncontrolled -Pt is off insulin gtt PUlmonary edema -Lasix Morbid obesity with JOSE MANUEL -Home CPAP Hyponatremia -monitor Chronic Afib and CAD -Cardiology following CKD hx of Cellulitis and abscess of foot PT is ok from pulmonary standpoint for discharge without steroids or Abx RAIMUNDO MATTHEWS DO Jun 01, 2018 05:50
[2018-06-01] MEDS: RT-BUDESONIDE NEBS 0.5 MG/2ML (PULMICORT) AMP INH SCH (06:53)
[2018-06-01] MEDS: ADVAIR HFA 115/21 MCG INHALER 8 GM IH SCH (06:57)
[2018-06-01] MEDS: UMECLIDINIUM BROMIDE (INCRUSE ELLIPTA) 7'S IH SCH (06:58)
[2018-06-01 08:00] VITALS: BP 181/84
[2018-06-01] MEDS: FUROSEMIDE 40 MG/4 ML INJ (LASIX) IVP SCH (08:29)
[2018-06-01] MEDS: inSUlin DETERMIR 1 UNIT/0.01 ML (LEVEMIR) CHARGE PER UNIT SQ SCH (08:30)
[2018-06-01] MEDS: inSUlin ASPART (NovoLOG) 1 UNIT/0.01 ML (CHARGE PER UNIT) SC SCH ×4 (08:30→11:26)
[2018-06-01] MEDS: CATHETER FLUSH 10 ML SYR IV SCH (08:31)
[2018-06-01] MEDS: TAMSULOSIN 0.4 MG (FLOMAX) CAP PO SCH (08:32)
[2018-06-01] MEDS: FINASTERIDE (PROSCAR) 5 MG TAB PO SCH (08:32)
[2018-06-01] MEDS: DILTIAZEM 240 MG (CARDIZEM CD) CAP PO SCH (08:32)
[2018-06-01] MEDS: KCL 10 MEQ TAB (MICRO K) PO SCH (08:32)
[2018-06-01] MEDS: LEVOTHYROXINE 25 MCG (LEVOTHROID) TAB PO SCH (08:32)
[2018-06-01] MEDS: ROSUVASTATIN 5 MG (CRESTOR) TABLET PO SCH (08:33)
[2018-06-01] MEDS: MELOXICAM 7.5 MG (MOBIC) TABLET PO SCH (08:33)
[2018-06-01] MEDS: meTOproloL SUCCINATE 50 MG (TOPROL XL) TAB PO SCH (08:33)
[2018-06-01] MEDS: POLYETHYLENE GLYCOL 17 GM (MIRALAX) PACK PO SCH (08:40)
[2018-06-01] MEDS: PIPERACILLIN SODIUM/TAZOBACTAM 4.5 GM in NS (IVPB) 100 ML IV SCH (08:49)
[2018-06-01] MEDS: ASPIRIN 81 MG CHEW (CHILDREN'S ASA) PO SCH (08:49)
[2018-06-01 11:37] LABS: BASOPHILS % (AUTO) 0 % (0-10); EOSINOPHILS # (AUTO) 0.1 10^3/uL (0.0-0.3); EOSINOPHILS % (AUTO) 1 % (0-10); HEMATOCRIT 36 % (40-54); HEMOGLOBIN 11.7 G/DL (13.3-17.7); LYMPHOCYTES # (AUTO) 1.6 X 10^3 (1.0-4.0); LYMPHOCYTES % (AUTO) 12 % (12-44); MEAN CORPUSCULAR HEMOGLOBIN 29 PG (25-34); MEAN CORPUSCULAR HGB CONC 33 G/DL (32-36); MEAN CORPUSCULAR VOLUME 88 FL (80-99); MEAN PLATELET VOLUME 9.9 FL (7.4-10.4); MONOCYTES # (AUTO) 1.4 X 10^3 (0.0-1.0); MONOCYTES % (AUTO) 11 % (0-12); NEUTROPHILS # (AUTO) 10.1 X 10^3 (1.8-7.8); NEUTROPHILS % (AUTO) 76 % (42-75); PLATELET COUNT 283 10^3/uL (130-400); RED BLOOD COUNT 4.02 10^6/uL (4.35-5.85); RED CELL DISTRIBUTION WIDTH 14.9 % (10.0-14.5); WHITE BLOOD COUNT 13.3 10^3/uL (4.3-11.0)
[2018-06-01 11:44] VITALS: BP 152/72
[2018-06-01 12:04] LABS: ALBUMIN 4.3 GM/DL (3.2-4.5); BILIRUBIN,TOTAL 0.6 MG/DL (0.1-1.0); CALCIUM 9.3 MG/DL (8.5-10.1); CREATININE SERUM 1.69 MG/DL (0.60-1.30); POTASSIUM 3.4 MMOL/L (3.6-5.0); TOTAL PROTEIN 7.8 GM/DL (6.4-8.2)
[2018-06-01] MEDS ORDERED: CEFD300C3 PO (12:46)
--- NOTE | 2018-06-01 12:48 | Discharge Summary-Hospitalist ---
Diagnosis/Chief Complaint Date of Admission May 28, 2018 at 17:40 Date of Discharge Discharge Date: Jun 01, 2018 Admission Diagnosis Assessment: AECOPD Acute on chronic bronchitis Volume overload due to diastolic dysfunction requiring IV Lasix and Cardiology consultation Chronic AF DM OOC due to steroids HTN HLP Morbid obesity needs Lapband Not an anticoagulation candidate due to life threatening bleed 3 months ago requiring 5 units of blood Knee pain DJD spine Discharge Diagnosis (1) Obesity hypoventilation syndrome Status: Acute (2) COPD exacerbation Status: Acute Assessment & Plan: Consult pulmonology Solumedrol Abx: Pip/tazo Albuterol/Ipratropium (3) Diastolic CHF Status: Acute Assessment & Plan: Likely contributing to dyspnea Retaining fluid, developing significant edema Lasix Consult cardiology (4) Diabetes mellitus Status: Chronic Assessment & Plan: Insulin therapy (5) Chronic atrial fibrillation Status: Chronic Assessment & Plan: Followed by cardiology (6) CAD (coronary artery disease) Status: Chronic Discharge Summary Discharge Physical Exam Allergies: Coded Allergies: Mhatvbg-Rge-Owe Reductase Inhibitor (Verified Allergy, Unknown, 10/15/17) codeine (Verified Allergy, Unknown, Takes Lortab at home, 05/28/18) fish oil (Verified Allergy, Unknown, 10/15/17) Vitals & I&Os Vital Signs Date Time Temp Pulse Resp B/P (MAP) Pulse Ox O2 Delivery O2 Flow Rate FiO2 06/01/18 11:44 98.6 72 20 152/72 (98) 98 Nasal Cannula 3.00 06/01/18 00:04 32 General Appearance: No Apparent Distress, WD/WN, Chronically ill, Obese Cardiovascular: No Edema, No Gallop, No JVD, No Murmur, Normal Peripheral Pulses, Irregularly Irregular Gastrointestinal: Normal Bowel Sounds, No Organomegaly, No Pulsatile Mass, Non Tender, Soft Extremity: Pedal Edema Neurologic/Psychiatric: Alert, Oriented x3, No Motor/Sensory Deficits, Normal Mood/Affect Hospital Course Hospital course: This is a 67yoWM clinic patient of [facility] with multiple admissions for obesity hypoventilation syndrome and volume overload who was admitted from my office due to acute on chronic bronchitis and volume overload. Pulmonology and Cardiology were consulted and he was given IV Lasix along with steroids and IV abx. Severe hyperglycemia required IV insulin drip with good results. Steroids were DC and patient was deemed stable for DC with almost back to baseline CRI and wbc. Pt will have close f/u with me and already has an appt with Pulmonology Dr Cadet on Sunday morning. Overall prognosis poor and he declines Lapband for weight loss. Labs (last 24 hrs) Laboratory Tests 05/31/18 16:08: Glucometer 117H 05/31/18 20:27: Glucometer 70 05/31/18 21:20: Glucometer 111H 06/01/18 05:34: Glucometer 194H 06/01/18 08:15: Glucometer 306H 06/01/18 11:20: Glucometer 470*H 06/01/18 11:30: White Blood Count 13.3H, Red Blood Count 4.02L, Hemoglobin 11.7L, Hematocrit 36L , Mean Corpuscular Volume 88, Mean Corpuscular Hemoglobin 29, Mean Corpuscular Hemoglobin Concent 33, Red Cell Distribution Width 14.9H, Platelet Count 283, Mean Platelet Volume 9.9, Neutrophils (%) (Auto) 76H, Lymphocytes (%) (Auto) 12 , Monocytes (%) (Auto) 11, Eosinophils (%) (Auto) 1, Basophils (%) (Auto) 0, Neutrophils # (Auto) 10.1H, Lymphocytes # (Auto) 1.6, Monocytes # (Auto) 1.4H, Eosinophils # (Auto) 0.1, Basophils # (Auto) 0.0, Sodium Level 133L, Potassium Level 3.4L, Chloride Level 94L, Carbon Dioxide Level 24, Anion Gap 15H, Blood Urea Nitrogen 48H, Creatinine 1.69H, Estimat Glomerular Filtration Rate 41, BUN/ Creatinine Ratio 28, Glucose Level 435*H, Calcium Level 9.3, Corrected Calcium 9.1, Total Bilirubin 0.6, Aspartate Amino Transf (AST/SGOT) 27, Alanine Aminotransferase (ALT/SGPT) 43, Alkaline Phosphatase 89, Total Protein 7.8, Albumin 4.3 Microbiology 05/28/18 Blood Culture - Preliminary, Resulted No growth Patient resulted labs reviewed. Pending Labs Laboratory Tests 06/01/18 08:15: Glucometer 306 06/01/18 11:20: Glucometer 470 06/01/18 11:30: White Blood Count 13.3, Red Blood Count 4.02, Hemoglobin 11.7, Hematocrit 36, Mean Corpuscular Volume 88, Mean Corpuscular Hemoglobin 29, Mean Corpuscular Hemoglobin Concent 33, Red Cell Distribution Width 14.9, Platelet Count 283, Mean Platelet Volume 9.9, Neutrophils (%) (Auto) 76, Lymphocytes (%) (Auto) 12, Monocytes (%) (Auto) 11, Eosinophils (%) (Auto) 1, Basophils (%) (Auto) 0, Neutrophils # (Auto) 10.1, Lymphocytes # (Auto) 1.6, Monocytes # (Auto) 1.4, Eosinophils # (Auto) 0.1, Basophils # (Auto) 0.0, Sodium Level 133, Potassium Level 3.4, Chloride Level 94, Carbon Dioxide Level 24, Anion Gap 15, Blood Urea Nitrogen 48, Creatinine 1.69, Estimat Glomerular Filtration Rate 41, BUN/ Creatinine Ratio 28, Glucose Level 435, Calcium Level 9.3, Corrected Calcium 9.1 , Total Bilirubin 0.6, Aspartate Amino Transf (AST/SGOT) 27, Alanine Aminotransferase (ALT/SGPT) 43, Alkaline Phosphatase 89, Total Protein 7.8, Albumin 4.3 Imaging: Reviewed Imaging Report Discussion & Recommendations Discharge Planning: <30 minutes discharge planning Discharge Home Medications: Active Scripts Active Cefdinir 300 Mg Capsule 300 Mg PO BID Reported Aspirin 81 Mg Tab.chew 81 Mg PO DAILY Furosemide 80 Mg Tablet 80 Mg PO 1300 Fluticasone Propionate 16 Gm [place].susp 2 Sprays NS HS Incruse Ellipta (Umeclidinium [place]) 62.5 Mcg Blst.w.dev 1 Puff INH DAILY Nexium 24Hr (Esomeprazole Magnesium) 20 Mg Capsule.dr 20 Mg PO HS Proair Hfa (Albuterol Sulfate) 1 Puff Puff 2 Puff INH Q4H PRN Sulfamethoxazole-Tmp Ds Tablet (Sulfamethoxazole/Trimethoprim) 1 Each Tablet 0.5 Tab PO HS TAKES 1/2 TABLET Ex-Lax (Sennosides) 15 Mg Tablet 1 Tab PO DAILY PRN Colace (Docusate Sodium) 100 Mg Capsule 500 Mg PO DAILY PRN Lactulose 10 Gm/15 Ml Solution 2 Tbs PO Q4H PRN Lidocaine 1 Each Adh..patch 1 Patch TP DAILY PRN 5% Finasteride 5 Mg Tablet 5 Mg PO DAILY Levemir Flextouch (Insulin Detemir) 100 Unit/1 Ml Insuln.pen 40 Units SC BID Metolazone 5 Mg Tablet 5 Mg PO 1300 Spironolactone 25 Mg Tablet 50 Mg PO 1300 TAKES 2 (25MG) TABLETS Meloxicam 15 Mg Tablet 15 Mg PO DAILY Humalog Kwikpen (Insulin Lispro) 100 Unit/1 Ml Insuln.pen 50 Units SQ ACHS Potassium Chloride 10 Meq Tablet.er 20 Meq PO BID TAKES 2 (10MEQ) TABLETS Tamsulosin HCl 0.4 Mg Cap.er.24h 0.4 Mg PO DAILY Montelukast Sodium 10 Mg Tablet 10 Mg PO HS Rosuvastatin Calcium 5 Mg Tablet 5 Mg PO DAILY Dilt-Xr (Diltiazem HCl) 240 Mg Cap.er.deg 240 Mg PO DAILY Advair 500-50 Diskus (Fluticasone/Salmeterol) 1 Each Blst.w.dev 1 Puff IH BID Metoprolol Succinate 50 Mg Tab.er.24h 50 Mg PO DAILY Lortab 7.5 Mg Tablet (Acetaminophen/Hydrocodone Bitart) 1 Each Tablet 1 Tab PO Q6H PRN Albuterol Sulfate 2.5 Mg/3 Ml Vial.neb 2.5 Mg NEB Q4H PRN Levothyroxine Sodium 25 Mcg Tablet 25 Mcg PO DAILY Zyrtec-D Tablet (Cetirizine HCl/Pseudoephedrine) 1 Each Tab.er.12h 1 Tab PO DAILY Instructions to patient/family Please see electronic discharge instructions given to patient. Clinical Quality Measures DVT/VTE Risk/Contraindication: Risk Factor Score Per Nursin RFS Level Per Nursing on Admit: 4+=Very High Problem Qualifiers (1) Diastolic CHF: Heart failure chronicity: acute Qualified Codes: I50.31 - Acute diastolic ( congestive) heart failure (2) Diabetes mellitus: Diabetes mellitus type: type 2 Diabetes mellitus retirement insulin use: with long term care social worker use Diabetes mellitus complication status: with circulatory complication Diabetes mellitus complication detail: with other circulatory complications Qualified Codes: E11.59 - Type 2 diabetes mellitus with other circulatory complications; Z79.4 - correction (current) use of insulin (3) CAD (coronary artery disease): Coronary Disease-Associated Artery/Lesion type: [place] artery [place] vs. transplanted heart: [place] heart Associated angina: without angina Qualified Codes: I25.10 - Atherosclerotic heart disease of [place] coronary artery without angina pectoris CHAO PAT DO Jun 01, 2018 12:48
--- NOTE | 2018-06-01 14:09 | Cardiology Progress Note ---
Cardiology SOAP Progress Note Subjective: Improved shortness of breath. Objective: I&O/Vital Signs 06/01/18 06/01/18 06/01/18 06/01/18 04:00 07:00 07:04 08:00 Temp 98.2 98.4 Pulse 79 76 87 Resp 16 22 B/P (MAP) 140/80 (100) 181/84 (116) Pulse Ox 97 96 97 O2 Delivery Nasal Cannula Nasal Cannula Nasal Cannula O2 Flow Rate 3.00 3.50 3.00 06/01/18 06/01/18 06/01/18 08:45 10:48 11:44 Temp 98.6 Pulse 72 Resp 20 B/P (MAP) 152/72 (98) Pulse Ox 98 O2 Delivery Nasal Cannula Nasal Cannula Nasal Cannula O2 Flow Rate 3.00 3.50 3.00 06/01/18 00:00 Intake Total 1530 ml Output Total 2900 ml Balance -1370 ml Weight (Pounds): 426 Weight (Ounces): 1.0 Weight (Calculated Kilograms): 193.679892 Constitutional: AAO x 3, well-developed, well-nourished Respiratory: No accessory muscle use, No respiratory distress; chest expansion is symmetric, chest is bilaterally symmetric, crackles (bilat lower lobes with scattered rhonchi) Cardiovascular: irregularly irregular; No JVD; S1 and S2, systolic murmur Gastrointestional: No tender; round, distended, audible bowel sounds Extremities: significant edema (bilat pitting and non-pitting edema) Neurologic/Psychiatric: grossly intact, power is 5/5 both on sides Skin: No rash, No ulcerations Results/Procedures: Labs Laboratory Tests 05/31/18 16:08: Glucometer 117H 05/31/18 20:27: Glucometer 70 05/31/18 21:20: Glucometer 111H 06/01/18 05:34: Glucometer 194H 06/01/18 08:15: Glucometer 306H 06/01/18 11:20: Glucometer 470*H 06/01/18 11:30: White Blood Count 13.3H, Red Blood Count 4.02L, Hemoglobin 11.7L, Hematocrit 36L , Mean Corpuscular Volume 88, Mean Corpuscular Hemoglobin 29, Mean Corpuscular Hemoglobin Concent 33, Red Cell Distribution Width 14.9H, Platelet Count 283, Mean Platelet Volume 9.9, Neutrophils (%) (Auto) 76H, Lymphocytes (%) (Auto) 12 , Monocytes (%) (Auto) 11, Eosinophils (%) (Auto) 1, Basophils (%) (Auto) 0, Neutrophils # (Auto) 10.1H, Lymphocytes # (Auto) 1.6, Monocytes # (Auto) 1.4H, Eosinophils # (Auto) 0.1, Basophils # (Auto) 0.0, Sodium Level 133L, Potassium Level 3.4L, Chloride Level 94L, Carbon Dioxide Level 24, Anion Gap 15H, Blood Urea Nitrogen 48H, Creatinine 1.69H, Estimat Glomerular Filtration Rate 41, BUN/ Creatinine Ratio 28, Glucose Level 435*H, Calcium Level 9.3, Corrected Calcium 9.1, Total Bilirubin 0.6, Aspartate Amino Transf (AST/SGOT) 27, Alanine Aminotransferase (ALT/SGPT) 43, Alkaline Phosphatase 89, Total Protein 7.8, Albumin 4.3 Microbiology 05/28/18 Blood Culture - Preliminary, Resulted No growth A/P: Assessment/Dx: Assessment: Dyspnea likely multifactorial - obesity-hypoventilation syndrome, ac on chronic diastolic CHF, ac exacerbation of COPD Obesity (BMI approx 62) with obesity-hypoventilation Chronic diastolic CHF - continue diuretic regimen Persistent a-fib first diagnosed in early February 2016, rate controlled Hypokalemia Hyponatremia - improving Acute on chronic renal insufficiency - chronic likely due in some part to diabetic nephropathy; acute likely d/t aggressive diuresis Anemia of undetermined etiology; ongoing occult bleed suspected - management by Dr. Hutton of medical services. Dr Hutton has not allowed reinitiation of OAC - ASA tx only CAD with a h/o CABG in 2006 at [facility] in [place], [place]. On cardiac cath of 11-11-15: Multivessel coronary disease including multiple more than 90% stenosis of the proximal and mid left anterior descending artery. The mid to distal left anterior descending artery is protected with a widely patent left internal mammary artery graft. The left circumflex artery had 99% ostial/ proximal stenosis to which successful stenting was carried out with Promus Premier 3.5 x 20 mm stent with a reduction of stenosis to 0% residual. The distal left circumflex and its obtuse marginal branches have diffuse moderate to moderately severe disease which were not intervened on. The right coronary artery is dominant and had 90% proximal stenosis to which successful stenting was carried out with Promus Premier 2.75 x 28 mm stent with reduction of stenosis to 0% residual. The distal right coronary artery has multiple stenoses of 50 to 60%, which were not intervened on. Cardiac cath of 11-11-15 showed well preserved global left ventricular systolic function and ejection fraction of 55 to 60%. Elevated left ventricular end- diastolic pressure which was measured at approximately 20 mmHg. No significant mitral regurgitation. ABIs on 01/13/16 at [place], [place]: 1.1 on both sides Echocardiogram of 09/14/17 (Dr Costello): LVEF 55-65%, dilated LA, supotimal study Chronic bilat leg swelling, likely due to venous insuff, no evidence of DVT on on venous duplex of 09/13/17 Hypertension COPD Quit smoking in early DM II Sleep apnea syndrome - CPAP therapy - managed by Dr. Paris Minimal carotid dz on u/s of November 2015 Plan: Plan: * Complex management. Multiple issues * Multi-factorial dyspnea as listed above * Acute on chronic diastolic CHF - clinically improving * Replace electrolytes * Acute exacerbation of COPD - management per medical and pulmonary services * Continue CCB and BB for rate control * He has chronic a-fib for which ideally we would like him to be on OAC for stroke prophylaxis other than ASA. However, d/t chronic anemia for which slow GI bleed is suspected, which is worse when taking stronger OAC, only ASA 81mg has only been allowed by PCP * Monitor lab closely * Obesity and growing BMI are a major source of his symptoms. Bariatric surgery to control wgt should be considered. * Worsening renal function likely in part d/t aggressive diuresis - dose has been reduced by pulmonary services Thank you for your consultation. Please call me if you have any questions. Symone Costello MD, FACP, FACC, FSCAI, FHRS, CCDS Interventional Cardiology Cardiac Electrophysiology Vascular Medicine and Endovascular Interventions Patricia COSTELLO MD Jun 01, 2018 2:09 pm
== END 2018-06-01 14:30 | disposition home or self-care (01) | DRG 189 ==
LOC: ICU 17:40 → 4TH 05-31 08:00
PROVIDERS: ADMIT Internal Medicine; ATTEND Internal Medicine
DX: J96.20 Acute and chronic respiratory failure, unspecified whether with hypoxia or hypercapnia (principal); J44.1 Chronic obstructive pulmonary disease with (acute) exacerbation; J20.9 Acute bronchitis, unspecified; E66.2 Morbid (severe) obesity with alveolar hypoventilation; Z68.44 Body mass index [BMI] 60.0-69.9, adult; I13.0 Hypertensive heart and chronic kidney disease with heart failure and stage 1 through stage 4 chronic kidney disease, or unspecified chronic kidney disease; I50.33 Acute on chronic diastolic (congestive) heart failure; N18.9 Chronic kidney disease, unspecified; E11.21 Type 2 diabetes mellitus with diabetic nephropathy; E87.1 Hypo-osmolality and hyponatremia; I48.1 Persistent atrial fibrillation; J81.1 Chronic pulmonary edema; E87.6 Hypokalemia; I25.10 Atherosclerotic heart disease of native coronary artery without angina pectoris; E11.65 Type 2 diabetes mellitus with hyperglycemia; T38.0X5A Adverse effect of glucocorticoids and synthetic analogues, initial encounter; E11.40 Type 2 diabetes mellitus with diabetic neuropathy, unspecified; E11.649 Type 2 diabetes mellitus with hypoglycemia without coma; E78.00 Pure hypercholesterolemia, unspecified; E03.9 Hypothyroidism, unspecified; F41.9 Anxiety disorder, unspecified; K59.09 Other constipation; D50.0 Iron deficiency anemia secondary to blood loss (chronic); I87.2 Venous insufficiency (chronic) (peripheral); Z79.4 Long term (current) use of insulin; Z95.1 Presence of aortocoronary bypass graft; Z95.5 Presence of coronary angioplasty implant and graft; Z87.891 Personal history of nicotine dependence; Z99.81 Dependence on supplemental oxygen; Z23 Encounter for immunization
CPT/HCPCS: 36415; 71045; 71046; 80048; 80053; 82805; 82962; 83605; 83735; 83880; 84100; 84484; 85007; 85025; 85027; 87040; 90471; 90686; 94640

== ENCOUNTER → 2018-06-09 | Outpatient (CLI) | payer OTHER, MEDICARE ==
[~2018-06-09] MED LIST changes: +FURO80TA3 PO
--- NOTE | 2018-06-09 10:17 | Diagnostic Imaging Report ---
INDICATION: Bilateral knee pain with no known discrete injury. FINDINGS: LEFT KNEE: Tricompartmental arthritis most severe at the medial tibiofemoral compartment but substantially involving the patellofemoral joint as well. No loose body or joint effusion. RIGHT KNEE: Substantial tricompartmental osteoarthritis also greater medial than lateral with substantial involvement of the patellofemoral joint with a bulky osteophyte off the inferior patellar pole present. On the right, there is likely a small joint effusion. No loose body. IMPRESSION: Significant degrees of bilateral osteoarthritis most severely involves the medial tibiofemoral and patellofemoral compartments with suggestion of a right-sided knee joint effusion. Dictated by: Dictated on workstation # [id number]
== END ==
LOC: RAD 09:42
PROVIDERS: ATTEND Orthopaedic Surgery
DX: M17.0 Bilateral primary osteoarthritis of knee (principal)

== ENCOUNTER 2018-07-15 07:04 | Inpatient (IN) | payer MEDICARE, OTHER ==
[~2018-07-15] VITALS: Ht 172.7 cm; Wt 174.6 kg
[2018-07-15] MEDS ORDERED: RT-ALBUTEROL/IPRATROPIUM 3 ML (DUONEB) VIAL INH ONE (07:30)
[2018-07-15] MEDS ORDERED: RT-ALBUTEROL/IPRATROPIUM 3 ML (DUONEB) VIAL ONE (07:30)
[2018-07-15] MEDS ORDERED: methylPREDNISolone 125 MG (Solu-MEDROL) VIAL IVP ONE (07:30)
--- NOTE | 2018-07-15 07:30 | ED Cough/URI ---
General Stated Complaint: SOB Source: patient Exam Limitations: no limitations History of Present Illness Date Seen by Provider: Jul 15, 2018 Time Seen by Provider: 07:28 Initial Comments This is a 67-year-old white male presents with a history of shortness of breath has been progressive for the last several days. Patient has had a history of multiple similar presentations from pneumonia. The patient denies associated hemoptysis, chest pain, diaphoresis, or nausea or vomiting. The patient is diabetic. Patient has required steroids with his antibiotics for his pneumonia in the past. Allergies and Home Medications Allergies Coded Allergies: Eczkxhy-Mab-Afw Reductase Inhibitor (Verified Allergy, Unknown, 10/15/17) codeine (Verified Allergy, Unknown, Takes Lortab at home, 05/28/18) fish oil (Verified Allergy, Unknown, 10/15/17) Home Medications Albuterol Sulfate 2.5 Mg/3 Ml Vial.neb, 2.5 MG NEB Q4H PRN for SHORTNESS OF BREATH, (Reported) Albuterol Sulfate 1 Puff Puff, 2 PUFF INH Q4H PRN for SHORTNESS OF BREATH, ( Reported) Aspirin 81 Mg Tab.chew, 81 MG PO DAILY, (Reported) Cefdinir 300 Mg Capsule, 300 MG PO BID Prescribed by: CHAO PAT on 06/01/18 1246 Cetirizine HCl/Pseudoephedrine 1 Each Tab.er.12h, 1 TAB PO DAILY, (Reported) Diltiazem HCl 240 Mg Cap.er.deg, 240 MG PO DAILY, (Reported) Docusate Sodium 100 Mg Capsule, 500 MG PO DAILY PRN for CONSTIPATION-1ST LINE, ( Reported) Esomeprazole Magnesium 20 Mg Capsule.dr, 20 MG PO HS, (Reported) Finasteride 5 Mg Tablet, 5 MG PO DAILY, (Reported) Fluticasone Propionate 16 Gm [place].susp, 2 SPRAYS NS HS, (Reported) Fluticasone/Salmeterol 1 Each Blst.w.dev, 1 PUFF IH BID, (Reported) Furosemide 80 Mg Tablet, 80 MG PO 1300, (Reported) Hydrocodone Bit/Acetaminophen 1 Each Tablet, 1 TAB PO Q6H PRN for PAIN-MODERATE, (Reported) Insulin Detemir 100 Unit/1 Ml Insuln.pen, 40 UNITS SC BID, (Reported) Insulin Lispro 100 Unit/1 Ml Insuln.pen, 50 UNITS SQ ACHS, (Reported) Lactulose 10 Gm/15 Ml Solution, 2 TBS PO Q4H PRN for CONSTIPATION-3RD LINE, ( Reported) Levothyroxine Sodium 25 Mcg Tablet, 25 MCG PO DAILY, (Reported) Lidocaine 1 Each Adh..patch, 1 PATCH TP DAILY PRN for KNEE/BACK PAIN, (Reported) 5% Meloxicam 15 Mg Tablet, 15 MG PO DAILY, (Reported) Metolazone 5 Mg Tablet, 5 MG PO 1300, (Reported) Metoprolol Succinate 50 Mg Tab.er.24h, 50 MG PO DAILY, (Reported) Montelukast Sodium 10 Mg Tablet, 10 MG PO HS, (Reported) Potassium Chloride 10 Meq Tablet.er, 20 MEQ PO BID, (Reported) TAKES 2 (10MEQ) TABLETS Rosuvastatin Calcium 5 Mg Tablet, 5 MG PO DAILY, (Reported) Sennosides 15 Mg Tablet, 1 TAB PO DAILY PRN for CONSTIPATION-5TH LINE, (Reported ) Spironolactone 25 Mg Tablet, 50 MG PO 1300, (Reported) TAKES 2 (25MG) TABLETS Sulfamethoxazole/Trimethoprim 1 Each Tablet, 0.5 TAB PO HS, (Reported) TAKES 1/2 TABLET Tamsulosin HCl 0.4 Mg Cap.er.24h, 0.4 MG PO DAILY, (Reported) Umeclidinium Logan 62.5 Mcg Blst.w.dev, 1 PUFF INH DAILY, (Reported) Patient Home Medication List Home Medication List Reviewed: Yes Review of Systems Review of Systems Constitutional: see HPI ( ), malaise, weakness Respiratory: see HPI, cough, short of breath Cardiovascular: No chest pain, No palpitations Gastrointestinal: No abdominal pain, No diarrhea, No vomiting Genitourinary: no symptoms reported Musculoskeletal: no symptoms reported Skin: no symptoms reported; No rash Psychiatric/Neurological: No Symptoms Reported Hematologic/Lymphatic: No Symptoms Reported Immunological/Allergic: no symptoms reported Past Lzdrked-Pruclo-Kinmye Hx Past Med/Social Hx: Reviewed Nursing Past Med/Soc Hx Patient Social History Alcohol Beverage of Choice: Whiskey Type Used: Cigarettes Former Smoker, Quit: Aug 13, 1996 2nd Hand Smoke Exposure: No Recent Hopitalizations: No Immunizations Up To Date Tetanus Booster (TDap): Less than 5yrs PED Vaccines UTD: No Date of Pneumonia Vaccine: May 13, 2017 Date of Influenza Vaccine: May 13, 2017 Seasonal Allergies Seasonal Allergies: Yes Past Medical History Surgeries: Yes Adenoidectomy, Cardiac, CABG, Coronary Stent, Gallbladder, Tonsillectomy, Transurethral Resection, Vasectomy Respiratory: Yes Asthma, Pneumonia, COPD Currently Using CPAP: Yes Currently Using BIPAP: No Cardiac: Yes Atrial Fibrillation, Chronic Edema/Swelling, Coronary Artery Disease, Heart Attack, High Cholesterol, Hypertension Neurological: Yes Neuropathy Reproductive Disorders: No Genitourinary: Yes Prostate Problems, Bladder Infection, UTI-Chronic Gastrointestinal: Yes Chronic Constipation Musculoskeletal: Yes Arthritis, Chronic Back Pain Endocrine: Yes Diabetes, Insulin dep, Hypothyroidsim HEENT: Yes Cataract Loss of Vision: Denies Hearing Impairment: Denies Cancer: No Psychosocial: Yes Anxiety Integumentary: Yes Pruritis Blood Disorders: No Adverse Reaction/Blood Tranf: No Family Medical History Cancer 03 FATHER Congestive heart failure 03 MOTHER Family history: Arthritis 03 MOTHER Family history: Asthma 03 MOTHER Family history: Cardiovascular disease 03 MOTHER Family history: Diabetes mellitus 09 BROTHER Family history: Gastrointestinal disease 03 FATHER History of drug abuse 09 BROTHER Asthma, Heart Disease, Hypertension Physical Exam Vital Signs - First Documented 07/15/18 07/15/18 07:04 07:38 Temp 98.1 Pulse 63 Resp 18 B/P (MAP) 129/53 (78) Pulse Ox 98 O2 Delivery Room Air O2 Flow Rate 3.00 Capillary Refill : Height: 5'8.00" Weight: 426lbs. 1.0oz. 193.290577qg; 62.7 BMI Method:Stated General Appearance: WD/WN, mild distress Eyes: Bilateral Eye Normal Inspection HEENT: normal ENT inspection Neck: normal inspection Respiratory: decreased breath sounds Cardiovascular: regular rate, rhythm Gastrointestinal: normal bowel sounds, non tender, soft Extremities: normal range of motion Neurologic/Psychiatric: no motor/sensory deficits, alert, normal mood/affect, oriented x 3 Skin: normal color, warm/dry; No rash Focused Exam Lactate Level 07/15/18 07:20: Lactic Acid Level 2.68*H Lactic Acid Level Laboratory Tests Test 07/15/18 07:20 Lactic Acid Level 2.68 MMOL/L (0.50-2.00) *H Procedures/Interventions Suture Size: 4-0 Progress/Results/Core Measures Suspected Sepsis SIRS Temperature: Pulse: Respiratory Rate: Laboratory Tests 07/15/18 07:20: White Blood Count 9.3 Blood Pressure / Mean: 07/15/18 07:20: Lactic Acid Level 2.68*H Laboratory Tests 07/15/18 07:20: Creatinine 1.76H, Platelet Count 225, Total Bilirubin 0.7 Results/Orders Lab Results Laboratory Tests Test 07/15/18 07:20 Range/Units White Blood Count 9.3 4.3-11.0 10^3/uL Red Blood Count 3.77 L 4.35-5.85 10^6/uL Hemoglobin 10.7 L 13.3-17.7 G/DL Hematocrit 34 L 40-54 % Mean Corpuscular Volume 90 80-99 FL Mean Corpuscular Hemoglobin 28 25-34 PG Mean Corpuscular Hemoglobin Concent 32 32-36 G/DL Red Cell Distribution Width 14.9 H 10.0-14.5 % Platelet Count 225 130-400 10^3/uL Mean Platelet Volume 9.6 7.4-10.4 FL Neutrophils (%) (Auto) 68 42-75 % Lymphocytes (%) (Auto) 16 12-44 % Monocytes (%) (Auto) 11 0-12 % Eosinophils (%) (Auto) 5 0-10 % Basophils (%) (Auto) 0 0-10 % Neutrophils # (Auto) 6.3 1.8-7.8 X 10^3 Lymphocytes # (Auto) 1.5 1.0-4.0 X 10^3 Monocytes # (Auto) 1.0 0.0-1.0 X 10^3 Eosinophils # (Auto) 0.4 H 0.0-0.3 10^3/uL Basophils # (Auto) 0.0 0.0-0.1 10^3/uL D-Dimer 1.28 H 0.00-0.49 UG/ML Sodium Level 136 135-145 MMOL/L Potassium Level 3.6 3.6-5.0 MMOL/L Chloride Level 98 98-107 MMOL/L Carbon Dioxide Level 25 21-32 MMOL/L Anion Gap 13 5-14 MMOL/L Blood Urea Nitrogen 23 H 7-18 MG/DL Creatinine 1.76 H 0.60-1.30 MG/DL Estimat Glomerular Filtration Rate 39 BUN/Creatinine Ratio 13 Glucose Level 250 H 70-105 MG/DL Lactic Acid Level 2.68 *H 0.50-2.00 MMOL/L Calcium Level 10.2 H 8.5-10.1 MG/DL Corrected Calcium 9.8 8.5-10.1 MG/DL Total Bilirubin 0.7 0.1-1.0 MG/DL Aspartate Amino Transf (AST/SGOT) 11 5-34 U/L Alanine Aminotransferase (ALT/SGPT) 12 0-55 U/L Alkaline Phosphatase 102 40-136 U/L Troponin I < 0.30 <0.30 NG/ML B-Type Natriuretic Peptide 171.3 H <100.0 PG/ML Total Protein 8.0 6.4-8.2 GM/DL Albumin 4.5 3.2-4.5 GM/DL My Orders Orders - JOCELYNE ESPANA MD Chest 1 View, Ap/Pa Only (07/15/18 07:24) Ekg Tracing (07/15/18 07:24) Comprehensive Metabolic Panel (07/15/18 07:24) Blood Culture (07/15/18 07:24) Lactic Acid Analyzer (07/15/18 07:24) Troponin I (07/15/18 07:24) BNP (07/15/18 07:24) Fibrin Degradation Products (07/15/18 07:24) Methylprednisolone Sod Succ (Solu-Medrol (07/15/18 07:30) Albuterol/Ipra Inhalation Soln (Duoneb I (07/15/18 07:30) Svn Small Volume Nebulizer (07/15/18 07:30) Albuterol/Ipra Inhalation Soln (Duoneb I (07/15/18 07:30) Cbc With Automated Diff (07/15/18 07:48) Blood Culture (07/15/18 07:48) Enoxaparin Injection (Lovenox Injection) (07/15/18 08:45) Ceftriaxone For Iv Use (Rocephin For I (07/15/18 08:45) Medications Given in ED Current Medications Medications Dose Ordered Sig/Jt Route Start Time Stop Time Status Last Admin Dose Admin Albuterol/ Ipratropium 3 ml ONCE ONCE INH 07/15/18 07:30 12 07:31 DC 07/15/18 07:37 3 ML Methylprednisolone Sodium Succinate 125 mg ONCE ONCE IVP 07/15/18 07:30 07/15/18 07:31 DC 07/15/18 07:32 125 MG Vital Signs/I&O 07/15/18 07/15/18 07:04 07:38 Temp 98.1 Pulse 63 Resp 18 B/P (MAP) 129/53 (78) Pulse Ox 98 95 O2 Delivery Room Air Nasal Cannula O2 Flow Rate 3.00 Capillary Refill : Progress Note : Time: 09:05 Progress Note The patient's workup demonstrated an elevated lactic acid. Blood cultures had been obtained. The patient's chest x-ray demonstrated cardiomegaly but no evidence of an acute infiltrate. The remainder the patient's laboratory evaluation was largely unremarkable other than an elevated d-dimer. Telephone consultation was undertaken with Dr. Kim. Patient was admitted. Initiated antibiotics for the patient's probable occult pneumonia with 2 g Rocephin IV. I gave the patient Lovenox 120 mg subcutaneous. Although this would be an inadequate total body weight dose IA was concerned because of the patient's previous spontaneous bleeding while on [facility] course. Departure Communication (Admissions) Time/Spoke to Admitting Phy: 08:30 Dr. Santiago. Impression Primary Impression: Upper respiratory infection Qualified Codes: J06.9 - Acute upper respiratory infection, unspecified Disposition: ADMITTED INPATIENT Condition: Improved Admissions Decision to Admit Reason: Admit from ER (General) Decision to Admit/Date: Jul 15, 2018 Time/Decision to Admit Time: 09:09 Departure-Patient Inst. Referrals: CHAO PAT DO (PCP/Family) Primary Care Physician JOCELYNE ESPANA MD Jul 15, 2018 07:29
[2018-07-15 07:54] LABS: ALANINE AMINOTRANSFERASE 12 U/L (0-55); ALBUMIN 4.5 GM/DL (3.2-4.5); ALKALINE PHOSPHATASE 102 U/L (40-136); BILIRUBIN,TOTAL 0.7 MG/DL (0.1-1.0); BUN/CREATININE RATIO 13; CALCIUM 10.2 MG/DL (8.5-10.1); CARBON DIOXIDE 25 MMOL/L (21-32); CHLORIDE 98 MMOL/L (98-107); CREATININE SERUM 1.76 MG/DL (0.60-1.30); GFR ESTIMATED 39; GLUCOSE 250 MG/DL (70-105); POTASSIUM 3.6 MMOL/L (3.6-5.0); SODIUM 136 MMOL/L (135-145)
[2018-07-15 07:58] LABS: BASOPHILS % (AUTO) 0 % (0-10); EOSINOPHILS # (AUTO) 0.4 10^3/uL (0.0-0.3); EOSINOPHILS % (AUTO) 5 % (0-10); HEMATOCRIT 34 % (40-54); HEMOGLOBIN 10.7 G/DL (13.3-17.7); LYMPHOCYTES # (AUTO) 1.5 X 10^3 (1.0-4.0); LYMPHOCYTES % (AUTO) 16 % (12-44); MEAN CORPUSCULAR HEMOGLOBIN 28 PG (25-34); MEAN CORPUSCULAR HGB CONC 32 G/DL (32-36); MEAN CORPUSCULAR VOLUME 90 FL (80-99); MEAN PLATELET VOLUME 9.6 FL (7.4-10.4); MONOCYTES % (AUTO) 11 % (0-12); NEUTROPHILS # (AUTO) 6.3 X 10^3 (1.8-7.8); NEUTROPHILS % (AUTO) 68 % (42-75); PLATELET COUNT 225 10^3/uL (130-400); RED BLOOD COUNT 3.77 10^6/uL (4.35-5.85); RED CELL DISTRIBUTION WIDTH 14.9 % (10.0-14.5); WHITE BLOOD COUNT 9.3 10^3/uL (4.3-11.0)
--- NOTE | 2018-07-15 08:02 | Diagnostic Imaging Report ---
Indication: Dyspnea and muscle cramps Portable upright AP view of the chest is obtained with comparison made study of 05/31/2018. There is generalized cardiomegaly and pulmonary venous congestion. No pneumothorax is identified. No definite pleural fluid is seen. Impression: Cardiomegaly and pulmonary venous congestion without significant adverse change when compared to previous study. Dictated by: Dictated on workstation # [id number]
[2018-07-15] MEDS ORDERED: ENOXAPARIN 60 MG/0.6 ML (LOVENOX) SYR SC ONE (08:45)
[2018-07-15] MEDS ORDERED: cefTRIAXone FOR IV USE 2,000 MG in NS (IVPB) 50 ML IV ONE (08:45)
[2018-07-15 10:00] VITALS: BP 115/59
[2018-07-15] MEDS ORDERED: CATHETER FLUSH 10 ML SYR IV PRN (10:15)
[2018-07-15 12:00] VITALS: BP 104/55
[2018-07-15] MEDS: methylPREDNISolone 125 MG (Solu-MEDROL) VIAL IV SCH ×2 (12:43→17:31)
[2018-07-15] MEDS: NS IV 1000 ML 1,000 ML IV SCH (12:43)
--- NOTE | 2018-07-15 12:54 | History & Physical-Hospitalist ---
History of Present Illness HPI/Chief Complaint Pt is a 67yoCM known to me from previous admissions who presented to the ER due to cough and SOB that had been worsening for the past few days. He complains of nasal congestion and sputum production that had been worsening as well. He reports he felt like he was getting pneumonia so decided to come in to be evaluated because he has had very severe cases of pneumonia. He otherwise has not complaints. Source: patient Date Seen 07/15/18 Time Seen by a Provider: 12:49 Attending Physician Luz Santiago MD PCP America Hutton DO Referring Physician Date of Admission Jul 15, 2018 at 08:48 Home Medications & Allergies Home Medications Reviewed patient Home Medication Reconciliation performed by pharmacy medication reconciliations preventative maintenance technician and/or nursing. Patients Allergies have been reviewed. Allergies Allergies Coded Allergies Rzntptt-Uvn-Tvc Reductase Inhibitor (Verified Allergy, Unknown, 10/15/17) codeine (Verified Allergy, Unknown, Takes Lortab at home, 05/28/18) fish oil (Verified Allergy, Unknown, 10/15/17) Past Zgsoild-Kjgfka-Dletjp Hx Past Med/Social Hx: Reviewed Nursing Past Med/Soc Hx Patient Social History Marrital Status: Employed/Student: retired Alcohol Use: Denies Use Number of Drinks Today: GG Alcohol Beverage of Choice: Whiskey Recreational Drug Use: No Smoking Status: Former Smoker Former Smoker, Quit: Aug 13, 1996 Type Used: Cigarettes 2nd Hand Smoke Exposure: No Physical Abuse Screen: No Sexual Abuse: No Recent Foreign Travel: No Contact w/other who traveled: No Recent Hopitalizations: No Recent Infectious Disease Expo: No Immunizations Up To Date Tetanus Booster (TDap): Less than 5yrs Pediatric: No Date of Pneumonia Vaccine: May 13, 2017 Date of Influenza Vaccine: May 22, 2018 Seasonal Allergies Seasonal Allergies: Yes Past Medical History Surgeries: Adenoidectomy, Cardiac, CABG, Coronary Stent, Gallbladder, Tonsillectomy, Transurethral Resection, Vasectomy Respiratory: Chronic Bronchitis, COPD, Pneumonia, Sleep Apnea Currently Using CPAP: Yes Currently Using BIPAP: No Cardiac: Atrial Fibrillation, Chronic Edema/Swelling, Coronary Artery Disease, Heart Attack, High Cholesterol, Hypertension Neurological: Neuropathy Reproductive: No Genitourinary: Prostate Problems, Bladder Infection, UTI-Chronic Gastrointestinal: Chronic Constipation Musculoskeletal: Arthritis, Chronic Back Pain Endocrine: Diabetes, Insulin dep, Hypothyroidsim Are Your Blood Sugars Over 250: Yes (sometimes, when he forgets to take his insulin) HEENT: Cataract Loss of Vision: Denies Hearing Impairment: Denies Psychosocial: Anxiety Skin/Integumentary: Pruritis History of Blood Disorders: No Adverse Reaction to Blood Leal: No Family History Reviewed Nursing Family Hx Cancer 03 FATHER Congestive heart failure 03 MOTHER Family history: Arthritis 03 MOTHER Family history: Asthma 03 MOTHER Family history: Cardiovascular disease 03 MOTHER Family history: Diabetes mellitus 09 BROTHER Family history: Gastrointestinal disease 03 FATHER History of drug abuse 09 BROTHER Asthma, Heart Disease, Hypertension Review of Systems Constitutional: No fever EENTM: nose congestion Respiratory: cough, phlegm Cardiovascular: No chest pain, No edema, No palpitations Gastrointestinal: No abdominal pain, No constipation, No diarrhea, No nausea, No vomiting Genitourinary: No dysuria, No frequency Musculoskeletal: No joint pain, No muscle pain Skin: No lesions, No rash Psychiatric/Neurological: Denies Headache, Denies Numbness, Denies Tingling Physical Exam Physical Exam Vital Signs Vital Signs - First Documented 07/15/18 07/15/18 07:04 07:38 Temp 98.1 Pulse 63 Resp 18 B/P (MAP) 129/53 (78) Pulse Ox 98 O2 Delivery Room Air O2 Flow Rate 3.00 Capillary Refill : Less Than 3 Seconds Height, Weight, BMI Height: 5'8.00" Weight: 385lbs. 0.0oz. 174.135469mb; 58.5 BMI Method:Stated General Appearance: No Apparent Distress, Chronically ill, Obese HEENT: Moist Mucous Membranes; No Scleral Icterus (L), No Scleral Icterus (R) Respiratory: No Accessory Muscle Use, No Respiratory Distress, Decreased Breath Sounds; No Wheezing Cardiovascular: Regular Rate, Rhythm, No Murmur Gastrointestinal: Normal Bowel Sounds, Non Tender, Soft Neurologic/Psychiatric: Alert, Oriented x3, Normal Mood/Affect Skin: Normal Color, Warm/Dry Results Results/Procedures Labs Laboratory Tests 07/15/18 07:20 Patient resulted labs reviewed. Imaging: Reviewed Imaging Report Assessment/Plan Admission Diagnosis Pneumonia with lactic acidosis Admission Status: Inpatient Order (span 2 midnights) Reason for Inpatient Admission: Iv abx Diagnosis/Problems Diagnosis/Problems (1) PNA (pneumonia) Status: Acute Assessment & Plan: Significant cardiomegaly likley obscuring PNA on imaging Continue on Rocephin Consult Pulm No sepsis criteria met Qualifiers: Pneumonia type: due to unspecified organism Laterality: unspecified laterality Lung location: unspecified part of lung Qualified Codes: J18.9 - Pneumonia, unspecified organism (2) IDDM (insulin dependent diabetes mellitus) Status: Chronic Assessment & Plan: Continue home insulin SSI ordered (3) COPD (chronic obstructive pulmonary disease) Status: Chronic Assessment & Plan: Follows with [facility] Will consult Continue steroids MAT Protocol Qualifiers: COPD type: unspecified COPD Qualified Codes: J44.9 - Chronic obstructive pulmonary disease, unspecified (4) Hypothyroidism Status: Chronic Assessment & Plan: Continue home synthroid Qualifiers: Hypothyroidism type: acquired Qualified Codes: E03.9 - Hypothyroidism, unspecified (5) Renal insufficiency Status: Acute Assessment & Plan: Chronic kidney disease at baseline Stage 3 (6) Congestive heart failure with preserved LV function, NYHA class 3 Status: Acute Assessment & Plan: Does not appear to be in acute heart failure trend (7) Essential (primary) hypertension Status: Chronic Assessment & Plan: Well controlled, trend Clinical Quality Measures DVT/VTE Risk/Contraindication: Risk Factor Score Per Nursin RFS Level Per Nursing on Admit: 4+=Very High LUZ SANTIAGO MD Jul 15, 2018 12:54
[2018-07-15] MEDS ORDERED: inSUlin ASPART (NovoLOG) 1 UNIT/0.01 ML (CHARGE PER UNIT) SC ONE (13:30)
[2018-07-15] MEDS ORDERED: LIDOCAINE (LIDODERM) 5% PATCH TP PRN (14:30)
[2018-07-15] MEDS ORDERED: DOCUSATE SODIUM 100 MG (COLACE) CAP PO PRN (14:30)
[2018-07-15] MEDS ORDERED: HYDROcodone/APAP 7.5 MG/325 MG (LORTAB, LORCET PLUS) TABLET PO PRN (14:30)
[2018-07-15] MEDS ORDERED: SENNOSIDES PO PRN (14:30)
[2018-07-15] MEDS ORDERED: LIDODERM PATCH REMOVAL TP PRN (15:00)
[2018-07-15] MEDS ORDERED: SENNOSIDES 8.6 MG (SENOKOT) TAB PO PRN (15:15)
[2018-07-15 16:00] VITALS: BP 125/68
[2018-07-15] MEDS ORDERED: inSUlin ASPART (NovoLOG) 1 UNIT/0.01 ML (CHARGE PER UNIT) SC SCH (16:00)
[2018-07-15] MEDS ORDERED: INSULIN LISPRO 50 UNIT SQ SCH (16:00)
[2018-07-15] MEDS: inSUlin ASPART (NovoLOG) 1 UNIT/0.01 ML (CHARGE PER UNIT) SC SCH ×2 (16:29→21:53)
[2018-07-15] MEDS: TRIM/SULFAMETH 160/800 (SEPTRA DS) TAB PO SCH (17:30)
[2018-07-15] MEDS: KCL 10 MEQ TAB (MICRO K) PO SCH (17:31)
[2018-07-15] MEDS: RT-ADVAIR HFA 115/21 MCG PER PUFF IH SCH (19:26)
[2018-07-15] MEDS: RT-ALBUTEROL SULF 2.5 MG/3 ML PRE-MIX VIAL INH PRN (19:26)
[2018-07-15 20:00] VITALS: BP 146/65
[2018-07-15] MEDS ORDERED: TRIMETHOPRIM PO SCH (21:00)
[2018-07-15] MEDS ORDERED: SULFAMETHOXAZOLE PO SCH (21:00)
[2018-07-15] MEDS ORDERED: NON-FORMULARY MEDICATION 1 EA EA (Insulin Detemir (Levemir Flextouch) 40 UNITS) SC SCH (21:00)
[2018-07-15] MEDS ORDERED: NON-FORMULARY MEDICATION 1 EA EA (Fluticasone/Salmeterol (Advair 500-50 Diskus) 1 PUFF) IH SCH (21:00)
[2018-07-15] MEDS ORDERED: [UNRECOGNIZED DRUG - OTHER] PO SCH (21:00)
[2018-07-15] MEDS: ENOXAPARIN 300 MG/3 ML (LOVENOX) MULTI-DOSE VIAL SQ SCH (21:52)
[2018-07-15] MEDS: inSUlin DETERMIR 1 UNIT/0.01 ML (LEVEMIR) CHARGE PER UNIT SQ SCH (21:53)
[2018-07-15] MEDS: MONTELUKAST 10 MG (SINGULAIR) TAB PO SCH (21:53)
[2018-07-15] MEDS: FLUTICASONE NASAL SPRAY (FLONASE) 16 GM BTL NS SCH (21:54)
[2018-07-15 23:00] VITALS: BP 146/65
[2018-07-16] VITALS (7 sets, daily range): BP systolic 125–143; BP diastolic 60–78
[2018-07-16] MEDS: methylPREDNISolone 125 MG (Solu-MEDROL) VIAL IV SCH ×2 (00:39→06:33)
[2018-07-16] MEDS: RT-ALBUTEROL/IPRATROPIUM 3 ML (DUONEB) VIAL INH SCH ×4 (03:01→20:12)
[2018-07-16 06:17] LABS: BASOPHILS % (AUTO) 0 % (0-10); EOSINOPHILS % (AUTO) 0 % (0-10); HEMATOCRIT 32 % (40-54); HEMOGLOBIN 10.3 G/DL (13.3-17.7); LYMPHOCYTES # (AUTO) 0.8 X 10^3 (1.0-4.0); LYMPHOCYTES % (AUTO) 6 % (12-44); MEAN CORPUSCULAR HEMOGLOBIN 29 PG (25-34); MEAN CORPUSCULAR HGB CONC 32 G/DL (32-36); MEAN CORPUSCULAR VOLUME 88 FL (80-99); MEAN PLATELET VOLUME 10.8 FL (7.4-10.4); MONOCYTES # (AUTO) 0.2 X 10^3 (0.0-1.0); MONOCYTES % (AUTO) 1 % (0-12); NEUTROPHILS # (AUTO) 12.3 X 10^3 (1.8-7.8); NEUTROPHILS % (AUTO) 93 % (42-75); PLATELET COUNT 248 10^3/uL (130-400); RED BLOOD COUNT 3.61 10^6/uL (4.35-5.85); RED CELL DISTRIBUTION WIDTH 14.9 % (10.0-14.5); WHITE BLOOD COUNT 13.2 10^3/uL (4.3-11.0)
[2018-07-16] MEDS: inSUlin ASPART (NovoLOG) 1 UNIT/0.01 ML (CHARGE PER UNIT) SC SCH ×3 (06:34→11:34)
[2018-07-16] MEDS: LEVOTHYROXINE 25 MCG (LEVOTHROID) TAB PO SCH (06:34)
[2018-07-16] MEDS: KCL 10 MEQ TAB (MICRO K) PO SCH ×2 (06:34→18:09)
[2018-07-16 06:47] LABS: ALBUMIN 4.2 GM/DL (3.2-4.5); BILIRUBIN,TOTAL 0.5 MG/DL (0.1-1.0); CALCIUM 9.7 MG/DL (8.5-10.1); CREATININE SERUM 1.83 MG/DL (0.60-1.30); POTASSIUM 4.3 MMOL/L (3.6-5.0); TOTAL PROTEIN 8.3 GM/DL (6.4-8.2)
[2018-07-16 07:26] LABS: BAND NEUTROPHILS 2 %; LYMPHOCYTES % (MANUAL) 4 %; MONOCYTES % (MANUAL) 1 %; NEUTROPHILS % (MANUAL) 93 %; RBC MORPH NORMAL
--- NOTE | 2018-07-16 07:47 | Diagnostic Imaging Report ---
INDICATION: Tachycardia. Comparison made with prior examination 07/15/2018. FINDINGS: There is cardiomegaly. There has been previous median sternotomy. There is moderate central pulmonary venous congestion. There is no pleural effusion or pneumothorax. Mediastinum is unremarkable. IMPRESSION: Cardiomegaly and moderate central pulmonary venous congestion. Dictated by: Dictated on workstation # [id number]
[2018-07-16] MEDS ORDERED: cefTRIAXone 1 GM/NS 50 ML IVPB IV SCH ×2 (09:00)
[2018-07-16] MEDS ORDERED: CETIRIZINE HCL PO SCH (09:00)
[2018-07-16] MEDS ORDERED: PSEUDOEPHEDRINE PO SCH (09:00)
[2018-07-16] MEDS ORDERED: NON-FORMULARY MEDICATION 1 EA EA (Diltiazem HCl (Dilt-Xr) 240 MG) PO SCH (09:00)
[2018-07-16] MEDS ORDERED: [UNRECOGNIZED DRUG - OTHER] PO SCH (09:00)
[2018-07-16] MEDS: RT-ADVAIR HFA 115/21 MCG PER PUFF IH SCH ×2 (09:03→20:13)
[2018-07-16] MEDS: UMECLIDINIUM BROMIDE (INCRUSE ELLIPTA) 7'S IH SCH (09:03)
[2018-07-16] MEDS: LORATADINE (CLARITIN) 10 MG TAB PO SCH (09:59)
[2018-07-16] MEDS: ASPIRIN 81 MG CHEW (CHILDREN'S ASA) PO SCH (09:59)
[2018-07-16] MEDS: meTOproloL SUCCINATE 50 MG (TOPROL XL) TAB PO SCH (09:59)
[2018-07-16] MEDS: ROSUVASTATIN 5 MG (CRESTOR) TABLET PO SCH (09:59)
[2018-07-16] MEDS: FINASTERIDE (PROSCAR) 5 MG TAB PO SCH (09:59)
[2018-07-16] MEDS: TAMSULOSIN 0.4 MG (FLOMAX) CAP PO SCH (09:59)
[2018-07-16] MEDS: DILTIAZEM 240 MG (CARDIZEM CD) CAP PO SCH (09:59)
[2018-07-16] MEDS: inSUlin DETERMIR 1 UNIT/0.01 ML (LEVEMIR) CHARGE PER UNIT SQ SCH ×2 (09:59→20:34)
[2018-07-16] MEDS: ENOXAPARIN 300 MG/3 ML (LOVENOX) MULTI-DOSE VIAL SQ SCH (10:00)
--- NOTE | 2018-07-16 10:05 | Progress Note-Hospitalist ---
CHAO PAT 07/16/18 1005: Subjective HPI/CC On Admission Date Seen by Provider: Jul 16, 2018 Time Seen by Provider: 09:45 Pt is a 67yoCM known to me from previous admissions who presented to the ER due to cough and SOB that had been worsening for the past few days. He complains of nasal congestion and sputum production that had been worsening as well. He reports he felt like he was getting pneumonia so decided to come in to be evaluated because he has had very severe cases of pneumonia. He otherwise has not complaints. Subjective/Events-last exam Patient is quite complex and difficult to remain outside the hospital for very long Chronic dyspnea from restrictive lung disease per Pulmonology in [place] Acute on chronic bronchitis and high sugars require insulin drip every time he is here due to steroid requirement Very declined overall Review of Systems Pulmonary: Dyspnea Focused Exam Lactate Level 07/15/18 07:20: Lactic Acid Level 2.68*H 07/15/18 09:44: Lactic Acid Level 2.12*H Objective Exam Vital Signs Vital Signs Date Time Temp Pulse Resp B/P (MAP) Pulse Ox O2 Delivery O2 Flow Rate FiO2 07/16/18 16:30 98.2 75 20 131/61 (84) 94 Nasal Cannula 3.00 Capillary Refill : Less Than 3 Seconds General Appearance: WD/WN, Chronically ill, Mild Distress, Obese HEENT: PERRL/EOMI Neck: Full Range of Motion, Normal Inspection, Non Tender, Supple, Carotid Bruit Respiratory: Chest Non Tender, No Accessory Muscle Use, No Respiratory Distress , Crackles, Decreased Breath Sounds, Wheezing Cardiovascular: No Edema, No Gallop, No JVD, No Murmur, Normal Peripheral Pulses, Irregularly Irregular Neurologic/Psychiatric: Alert, Oriented x3, No Motor/Sensory Deficits, Normal Mood/Affect Skin: Normal Color, Warm/Dry Results/Procedures Lab Laboratory Tests 07/16/18 05:15 Patient resulted labs reviewed. 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 Diagnosis/Problems Diagnosis/Problems (1) COPD (chronic obstructive pulmonary disease) with acute bronchitis Status: Acute (2) Chronic atrial fibrillation Status: Chronic (3) Obesity hypoventilation syndrome Status: Chronic (4) Diabetes mellitus Status: Chronic Qualifiers: Diabetes mellitus type: type 2 Diabetes mellitus [facility] insulin use: with marine oil terminal superintendent use Diabetes mellitus complication status: with circulatory complication Diabetes mellitus complication detail: with other circulatory complications Qualified Codes: E11.59 - Type 2 diabetes mellitus with other circulatory complications; Z79.4 - prison (current) use of insulin (5) COPD exacerbation Status: Acute (6) Diastolic CHF Status: Acute Qualifiers: Heart failure chronicity: acute on chronic Qualified Codes: I50.33 - Acute on chronic diastolic (congestive) heart failure (7) Hypothyroidism Status: Chronic Qualifiers: Hypothyroidism type: acquired Qualified Codes: E03.9 - Hypothyroidism, unspecified (8) Renal insufficiency Status: Acute (9) Essential (primary) hypertension Status: Chronic (10) CAD (coronary artery disease) Status: Chronic (11) Poor prognosis Status: Chronic (12) JOSE MANUEL (obstructive sleep apnea) Status: Chronic Clinical Quality Measures DVT/VTE Risk/Contraindication: Risk Factor Score Per Nursin RFS Level Per Nursing on Admit: 4+=Very High MERLE PORRAS MED STUDENT 07/16/18 1021: Subjective Subjective/Events-last exam Patient states that he is feeling about the same as yesterday Still having a cough that is sometimes productive Patient complains of headaches and sinus congestion He states that he also has multiple bug bites on his legs and buttocks which he attributes to fleas Objective Exam General Appearance: No Apparent Distress, WD/WN HEENT: PERRL/EOMI Neck: Full Range of Motion, Normal Inspection, Non Tender, Supple Respiratory: Chest Non Tender, No Accessory Muscle Use, No Respiratory Distress , Wheezing Cardiovascular: Regular Rate, Rhythm, No Gallop, No JVD, No Murmur Gastrointestinal: Normal Bowel Sounds Neurologic/Psychiatric: Alert, Oriented x3, No Motor/Sensory Deficits, Normal Mood/Affect Skin: Normal Color, Warm/Dry Lymphatic: No Adenopathy Assessment/Plan Assessment and Plan Assess & Plan/Chief Complaint Assessment: 1) Pneumonia 2) COPD 3) Obesity 4) HTN 5) CAD 6) Diabetes Plan: 1) IV antibiotics 2) Albuterol treatments 3) Continue insulin therapy CHAO PAT DO Jul 16, 2018 10:05 MERLE PORRAS MED STUDENT Jul 16, 2018 10:21
[2018-07-16] MEDS ORDERED: FUROSEMIDE 40 MG/4 ML INJ (LASIX) IVP SCH ×2 (10:12→17:00)
[2018-07-16] MEDS ORDERED: PIPERACILLIN/TAZO 4.5 GM/NS 100 ML IV NR ×2 (10:24)
--- NOTE | 2018-07-16 10:53 | Consultation-Cardiology ---
HPI-Cardiology Cardiology Consultation: Date of Consultation 07/16/18 Time Seen by a Provider: 11:10 Date of Admission 07-15-18 Attending Physician Branden Delacruz MD Admitting Physician America Hutton DO Consulting Physician Kayla Bishop MD HPI: Chief Complaint: Dyspnea Mr. Garcia is a 67 year old male admitted to 418 from the ED with c/o increasing shortness of breath. He reports worsening dyspnea with productive cough over the course of the last few days. He reports orthopnea. He reports increasing bilat LE edema. No c/o CP, palpitations, syncope, near syncope. No c/o fever or chills. No c/o n/v/d. Review of Systems-Cardiology Review of Systems Constitutional: No chills, No fever Eyes: No vision change Ears/Nose/Throat: No epistaxis, No recent hearing loss Respiratory: As described under HPI Cardiovascular: As described under HPI Gastrointestinal: No constipation, No diarrhea, No nausea, No vomiting Genitourinary: No dysuria Skin: other (excoriations to torso, hips, upper legs) Psychiatric/Neurological: No seizure, No focal weakness, No syncope Hematologic: No bleeding abnormalities KTJ-Kupdzs-Cqhjkt Hx Patient Social History Marrital Status: Employed/Student: retired Alcohol Use: Denies Use Recreational Drug Use: No Smoking Status: Former Smoker Former smoker/When Quit: Aug 13, 2006 Type Used: Cigarettes 2nd Hand Smoke Exposure: No Recent Foreign Travel: No Recent Infectious Disease Expo: No Hospitalization with Isolation: Denies Physical Abuse Screen: No Sexual Abuse: No Immunizations Up To Date Tetanus Booster (TDap): Less than 5yrs Date of Pneumonia Vaccine: May 13, 2017 Date of Influenza Vaccine: May 22, 2018 Past Medical History PMH As described under Assessment. Family Medical History Family Medical History: Reports mother had CAD and CHF. No reported h/o premature CAD or SCD. Family History: Cancer 03 FATHER Congestive heart failure 03 MOTHER Family history: Arthritis 03 MOTHER Family history: Asthma 03 MOTHER Family history: Cardiovascular disease 03 MOTHER Family history: Diabetes mellitus 09 BROTHER Family history: Gastrointestinal disease 03 FATHER History of drug abuse 09 BROTHER Allergies and Home Medications Allergies Coded Allergies: Btxrujd-Xdx-Qot Reductase Inhibitor (Verified Allergy, Unknown, 10/15/17) codeine (Verified Allergy, Unknown, Takes Lortab at home, 05/28/18) fish oil (Verified Allergy, Unknown, 10/15/17) Home Medications Albuterol Sulfate 2.5 Mg/3 Ml Vial.neb, 2.5 MG NEB Q4H PRN for SHORTNESS OF BREATH, (Reported) Albuterol Sulfate 1 Puff Puff, 2 PUFF INH Q4H PRN for SHORTNESS OF BREATH, ( Reported) Aspirin 81 Mg Tab.chew, 81 MG PO DAILY, (Reported) Cetirizine HCl/Pseudoephedrine 1 Each Tab.er.12h, 1 TAB PO DAILY, (Reported) Diltiazem HCl 240 Mg Cap.er.deg, 240 MG PO DAILY, (Reported) Docusate Sodium 100 Mg Capsule, 500 MG PO DAILY PRN for CONSTIPATION-1ST LINE, ( Reported) Esomeprazole Magnesium 20 Mg Capsule.dr, 20 MG PO HS, (Reported) Finasteride 5 Mg Tablet, 5 MG PO DAILY, (Reported) Fluticasone Propionate 16 Gm [place].susp, 2 SPRAYS NS HS, (Reported) Fluticasone/Salmeterol 1 Each Blst.w.dev, 1 PUFF IH BID, (Reported) Furosemide 80 Mg Tablet, 80 MG PO 1300, (Reported) Hydrocodone Bit/Acetaminophen 1 Each Tablet, 1 TAB PO Q6H PRN for PAIN-MODERATE, (Reported) Insulin Detemir 100 Unit/1 Ml Insuln.pen, 40 UNITS SC BID, (Reported) Insulin Lispro 100 Unit/1 Ml Insuln.pen, 50 UNITS SQ ACHS, (Reported) Lactulose 10 Gm/15 Ml Solution, 2 TBS PO Q4H PRN for CONSTIPATION-3RD LINE, ( Reported) Levothyroxine Sodium 25 Mcg Tablet, 25 MCG PO DAILY, (Reported) Lidocaine 1 Each Adh..patch, 1 PATCH TP DAILY PRN for KNEE/BACK PAIN, (Reported) 5% Meloxicam 15 Mg Tablet, 15 MG PO DAILY, (Reported) Metolazone 5 Mg Tablet, 5 MG PO 1300, (Reported) Metoprolol Succinate 50 Mg Tab.er.24h, 50 MG PO DAILY, (Reported) Montelukast Sodium 10 Mg Tablet, 10 MG PO HS, (Reported) Potassium Chloride 10 Meq Tablet.er, 20 MEQ PO BID, (Reported) TAKES 2 (10MEQ) TABLETS Rosuvastatin Calcium 5 Mg Tablet, 5 MG PO DAILY, (Reported) Sennosides 15 Mg Tablet, 1 TAB PO DAILY PRN for CONSTIPATION-5TH LINE, (Reported ) Spironolactone 25 Mg Tablet, 50 MG PO 1300, (Reported) LAST FILLED #180 03-11-18 TAKES 2 (25MG) TABLETS Sulfamethoxazole/Trimethoprim 1 Each Tablet, 0.5 TAB PO HS, (Reported) TAKES 1/2 TABLET Tamsulosin HCl 0.4 Mg Cap.er.24h, 0.4 MG PO DAILY, (Reported) Umeclidinium [place] 62.5 Mcg Blst.w.dev, 1 PUFF INH DAILY, (Reported) Physical Exam-Cardiology Physical Exam Vital Signs/I&O 07/16/18 07/16/18 07/16/18 07/17/18 22:05 23:14 23:49 01:00 Temp 98.2 Pulse 74 68 67 61 Resp 24 22 36 B/P (MAP) 143/62 (89) Pulse Ox 98 94 98 O2 Delivery Nasal Cannula O2 Flow Rate 35.00 3.00 35.00 07/17/18 07/17/18 07/17/18 07/17/18 01:35 04:00 04:09 07:00 Temp 96.9 Pulse 70 67 71 71 Resp 18 20 25 B/P (MAP) 134/63 (86) Pulse Ox 98 100 99 O2 Delivery NIV Bilevel O2 Flow Rate 35.00 35.00 07/17/18 07/17/18 07/17/18 07:42 08:39 08:41 Temp 97.3 Pulse 74 Resp 20 B/P (MAP) 128/60 (82) Pulse Ox 94 94 O2 Delivery Nasal Cannula Nasal Cannula Nasal Cannula O2 Flow Rate 3.50 3.00 3.00 07/17/18 00:00 Intake Total 2040 ml Output Total 4280 ml Balance -2240 ml Capillary Refill : Less Than 3 Seconds Constitutional: AAO x 3, well-developed, well-nourished HEENT: PERRL, hearing is well preserved Neck: No carotid bruit; carotid pulses are 2 + bilaterally Respiratory: No accessory muscle use, No respiratory distress; chest expansion is symmetric, chest is bilaterally symmetric, other (diminished; fair air entry) Cardiovascular: irregularly irregular, S1 and S2, systolic murmur Gastrointestinal: No tender; soft, round, audible bowel sounds Extremities: significant edema (bilat LE pitting edema) Neurologic/Psychiatric: grossly intact Skin: other (multiple areas of excoriation to his torso, hips; dressing to left great toe (not removed)) Lymphatic: no adenopathy Data Review Labs Laboratory Tests 07/16/18 11:12: Glucometer 543*H 07/16/18 15:02: Glucometer 503*H 07/16/18 16:09: Glucometer 422*H 07/16/18 17:02: Glucometer 422*H 07/16/18 17:55: Glucometer 390H 07/16/18 18:56: Glucometer 439*H 07/16/18 20:07: Glucometer 450*H 07/16/18 21:25: Glucometer 410*H 07/16/18 22:25: Glucometer 333H 07/16/18 23:24: Glucometer 328H 07/17/18 00:23: Glucometer 247H 07/17/18 01:25: Glucometer 195H 07/17/18 02:38: Glucometer 192H 07/17/18 03:44: Glucometer 132H 07/17/18 04:59: Glucometer 127H 07/17/18 06:04: Glucometer 118H 07/17/18 06:10: White Blood Count 18.4H, Red Blood Count 3.71L, Hemoglobin 10.5L, Hematocrit 33L , Mean Corpuscular Volume 88, Mean Corpuscular Hemoglobin 28, Mean Corpuscular Hemoglobin Concent 32, Red Cell Distribution Width 14.8H, Platelet Count 254, Mean Platelet Volume 10.4, Neutrophils (%) (Auto) 92H, Lymphocytes (%) (Auto) 4L , Monocytes (%) (Auto) 4, Eosinophils (%) (Auto) 0, Basophils (%) (Auto) 0, Neutrophils # (Auto) 17.0H, Lymphocytes # (Auto) 0.7L, Monocytes # (Auto) 0.8, Eosinophils # (Auto) 0.0, Basophils # (Auto) 0.0, Sodium Level 136, Potassium Level 2.7L, Chloride Level 98, Carbon Dioxide Level 22, Anion Gap 16H, Blood Urea Nitrogen 50H, Creatinine 1.76H, Estimat Glomerular Filtration Rate 39, BUN/ Creatinine Ratio 28, Glucose Level 106H, Calcium Level 9.7, Corrected Calcium 9.3, Magnesium Level 2.1, Total Bilirubin 0.4, Aspartate Amino Transf (AST/SGOT ) 17, Alanine Aminotransferase (ALT/SGPT) 15, Alkaline Phosphatase 91, Total Protein 8.5H, Albumin 4.5 07/17/18 07:03: Glucometer 176H 07/17/18 08:05: Glucometer 182H Microbiology 07/15/18 Blood Culture - Preliminary, Resulted No growth Radiology NAME: JENNIFER GARCIA REC#: [id number] PT STATUS: ADM IN : 1950 PHYSICIAN: BRANDEN DELACRUZ MD ADMIT DATE: 07/15/18 Signed Date of Exam: 07/16/18 CHEST 1 VIEW, AP/PA ONLY INDICATION: Tachycardia. Comparison made with prior examination 07/15/2018. FINDINGS: There is cardiomegaly. There has been previous median sternotomy. There is moderate central pulmonary venous congestion. There is no pleural effusion or pneumothorax. Mediastinum is unremarkable. IMPRESSION: Cardiomegaly and moderate central pulmonary venous congestion. Dictated by: Dictated on workstation # [id number] Dict: 07/16/18714 Trans: 07/16/18815 Interpreted by: ANDREW GRAMAJO MD Electronically signed by: ANDREW GRAMAJO MD 07/16/18815 A/P-Cardiology Assessment/Admission Diagnosis Dyspnea likely multifactorial - ac on chronic diastolic CHF, ac exacerbation of COPD, pneumonia and obesity-hypoventilation syndrome (Several hospitalizations in 2018) Obesity (BMI approx 60) with obesity-hypoventilation Acute on Chronic diastolic CHF Persistent a-fib first diagnosed in early February 2016, rate controlled Anemia of undetermined etiology; ongoing occult bleed suspected - management by Dr. Hutton of medical services. Dr Hutton has not allowed reinitiation of OAC - ASA tx only CAD with a h/o CABG in 2006 at [facility] in [place], [place]. On cardiac cath of 11-11-15: Multivessel coronary disease including multiple more than 90% stenosis of the proximal and mid left anterior descending artery. The mid to distal left anterior descending artery is protected with a widely patent left internal mammary artery graft. The left circumflex artery had 99% ostial/ proximal stenosis to which successful stenting was carried out with Promus Premier 3.5 x 20 mm stent with a reduction of stenosis to 0% residual. The distal left circumflex and its obtuse marginal branches have diffuse moderate to moderately severe disease which were not intervened on. The right coronary artery is dominant and had 90% proximal stenosis to which successful stenting was carried out with Promus Premier 2.75 x 28 mm stent with reduction of stenosis to 0% residual. The distal right coronary artery has multiple stenoses of 50 to 60%, which were not intervened on. Cardiac cath of 11-11-15 showed well preserved global left ventricular systolic function and ejection fraction of 55 to 60%. Elevated left ventricular end- diastolic pressure which was measured at approximately 20 mmHg. No significant mitral regurgitation. ABIs on 01/13/16 at [place], [place]: 1.1 on both sides Echocardiogram of 09/14/17 (Dr Costello): LVEF 55-65%, dilated LA, suboptimal study Chronic bilat leg swelling, likely due to venous insuff, no evidence of DVT on on venous duplex of 09/13/17 Hypertension Asthma - follows with Dr. Cadet Quit smoking in early DM II Chronic renal insufficiency - chronic likely due in some part to diabetic nephropathy Sleep apnea syndrome - CPAP therapy - managed by Dr. Paris and Dr. Cadet Minimal carotid dz on u/s of November 2015 Discussion and Recomendations Multi-factorial dyspnea as noted above Treat ac on chr diastolic CHF with diuretics Monitor lab closely Pneumonia management by medical services Continue home medication regimen including ASA, BB, Diltiazem, Aldactone, Metolazone, and statin Deemed not a suitable candidate for OAC d/t reasons noted above, therefore, will continue ASA Further recs will be based on his hospital course We would like to thank medical services for this consult Clinical Quality Measures DVT/VTE Risk/Contraindication: Risk Factor Score Per Nursin RFS Level Per Nursing on Admit: 4+=Very High BENJAMIN ARROYO Jul 16, 2018 10:53
[2018-07-16] MEDS ORDERED: FUROSEMIDE 40 MG/4 ML INJ (LASIX) IVP NR (11:45)
[2018-07-16] MEDS ORDERED: METOLAZONE 5 MG (ZAROXOLYN) TAB PO NR (11:45)
[2018-07-16] MEDS ORDERED: inSUlin REGULAR TPN/DRIP ONLY 250 UNITS in NORMAL SALINE 250 ML IV SCH ×2 (12:30→13:00)
[2018-07-16] MEDS ORDERED: NS IV 1000 ML 1,000 ML IV SCH (12:50)
[2018-07-16] MEDS ORDERED: FUROSEMIDE 40 MG (LASIX) TAB PO SCH (13:00)
[2018-07-16] MEDS ORDERED: METOLAZONE 5 MG PO SCH (13:00)
[2018-07-16] MEDS ORDERED: NON-FORMULARY MEDICATION 1 EA EA (Furosemide 80 MG) PO SCH (13:00)
[2018-07-16] MEDS ORDERED: inSUlin (REGULAR) HUMAN 1 UNIT/0.01 ML (CHARGE PER UNIT) IV NR ×2 (13:00→15:23)
[2018-07-16] MEDS ORDERED: DEXTROSE 50% 50 ML (IMS) SYR IV PRN ×2 (13:00)
[2018-07-16] MEDS ORDERED: METOLAZONE 5 MG (ZAROXOLYN) TAB PO SCH (13:00)
[2018-07-16] MEDS: NS IV 1000 ML 1,000 ML IV SCH (14:44)
[2018-07-16] MEDS: SPIRONOLACTONE 25 MG (ALDACTONE) TAB PO SCH (15:01)
--- NOTE | 2018-07-16 16:24 | Diagnostic Imaging Report ---
INDICATION: PICC line placement. TIME OF EXAM: 04:04 p.m. Correlation is made with prior study from earlier the same day. FINDINGS: The heart is enlarged but stable. Changes of median sternotomy are noted. Left upper extremity PICC line has been placed. The tip is difficult to locate but appears to be in the region of the left innominate vein. The tip appears to be near the midline. No pneumothorax is seen. There is no effusion. IMPRESSION: PICC line placement, as described. Dictated by: Dictated on workstation # [id number]
--- NOTE | 2018-07-16 16:43 | Consultation-Cardiology ---
HPI-Cardiology Cardiology Consultation: Date of Consultation 07/16/18 Time Seen by a Provider: 16:10 Date of Admission Attending Physician Luz Santiago MD Admitting Physician America Hutton DO Consulting Physician CATY PENALOZA MD, MA, FACP, FACC, FSCAI, CCDS HPI: Chief Complaint: Dyspnea Mr. Ferraro is a 67 year old male admitted to 418 from the ED with c/o increasing shortness of breath. He reports worsening dyspnea with productive cough over the course of the last few days. He reports orthopnea. He reports increasing bilat LE edema. No c/o CP, palpitations, syncope, near syncope. No c/o fever or chills. No c/o n/v/d. Review of Systems-Cardiology Review of Systems Constitutional: No chills, No fever Eyes: No vision change Ears/Nose/Throat: No epistaxis, No recent hearing loss Respiratory: As described under HPI Cardiovascular: As described under HPI Gastrointestinal: No constipation, No diarrhea, No nausea, No vomiting Genitourinary: No dysuria Skin: other (excoriations to torso, hips, upper legs) Psychiatric/Neurological: No seizure, No focal weakness, No syncope Hematologic: No bleeding abnormalities JWT-Ahmxrf-Dbmqve Hx Patient Social History Marrital Status: Employed/Student: retired Alcohol Use: Denies Use Recreational Drug Use: No Smoking Status: Former Smoker Former smoker/When Quit: Aug 13, 2006 Type Used: Cigarettes 2nd Hand Smoke Exposure: No Recent Foreign Travel: No Recent Infectious Disease Expo: No Hospitalization with Isolation: Denies Physical Abuse Screen: No Sexual Abuse: No Immunizations Up To Date Tetanus Booster (TDap): Less than 5yrs Date of Pneumonia Vaccine: May 13, 2017 Date of Influenza Vaccine: May 22, 2018 Past Medical History PMH As described under Assessment. Family Medical History Family Medical History: Reports mother had CAD and CHF. No reported h/o premature CAD or SCD. Family History: Cancer 03 FATHER Congestive heart failure 03 MOTHER Family history: Arthritis 03 MOTHER Family history: Asthma 03 MOTHER Family history: Cardiovascular disease 03 MOTHER Family history: Diabetes mellitus 09 BROTHER Family history: Gastrointestinal disease 03 FATHER History of drug abuse 09 BROTHER Allergies and Home Medications Allergies Coded Allergies: Obkcwyp-Nbv-Yby Reductase Inhibitor (Verified Allergy, Unknown, 10/15/17) codeine (Verified Allergy, Unknown, Takes Lortab at home, 05/28/18) fish oil (Verified Allergy, Unknown, 10/15/17) Home Medications Albuterol Sulfate 2.5 Mg/3 Ml Vial.neb, 2.5 MG NEB Q4H PRN for SHORTNESS OF BREATH, (Reported) Albuterol Sulfate 1 Puff Puff, 2 PUFF INH Q4H PRN for SHORTNESS OF BREATH, ( Reported) Aspirin 81 Mg Tab.chew, 81 MG PO DAILY, (Reported) Cetirizine HCl/Pseudoephedrine 1 Each Tab.er.12h, 1 TAB PO DAILY, (Reported) Diltiazem HCl 240 Mg Cap.er.deg, 240 MG PO DAILY, (Reported) Docusate Sodium 100 Mg Capsule, 500 MG PO DAILY PRN for CONSTIPATION-1ST LINE, ( Reported) Esomeprazole Magnesium 20 Mg Capsule.dr, 20 MG PO HS, (Reported) Finasteride 5 Mg Tablet, 5 MG PO DAILY, (Reported) Fluticasone Propionate 16 Gm [place].susp, 2 SPRAYS NS HS, (Reported) Fluticasone/Salmeterol 1 Each Blst.w.dev, 1 PUFF IH BID, (Reported) Furosemide 80 Mg Tablet, 80 MG PO 1300, (Reported) Hydrocodone Bit/Acetaminophen 1 Each Tablet, 1 TAB PO Q6H PRN for PAIN-MODERATE, (Reported) Insulin Detemir 100 Unit/1 Ml Insuln.pen, 40 UNITS SC BID, (Reported) Insulin Lispro 100 Unit/1 Ml Insuln.pen, 50 UNITS SQ ACHS, (Reported) Lactulose 10 Gm/15 Ml Solution, 2 TBS PO Q4H PRN for CONSTIPATION-3RD LINE, ( Reported) Levothyroxine Sodium 25 Mcg Tablet, 25 MCG PO DAILY, (Reported) Lidocaine 1 Each Adh..patch, 1 PATCH TP DAILY PRN for KNEE/BACK PAIN, (Reported) 5% Meloxicam 15 Mg Tablet, 15 MG PO DAILY, (Reported) Metolazone 5 Mg Tablet, 5 MG PO 1300, (Reported) Metoprolol Succinate 50 Mg Tab.er.24h, 50 MG PO DAILY, (Reported) Montelukast Sodium 10 Mg Tablet, 10 MG PO HS, (Reported) Potassium Chloride 10 Meq Tablet.er, 20 MEQ PO BID, (Reported) TAKES 2 (10MEQ) TABLETS Rosuvastatin Calcium 5 Mg Tablet, 5 MG PO DAILY, (Reported) Sennosides 15 Mg Tablet, 1 TAB PO DAILY PRN for CONSTIPATION-5TH LINE, (Reported ) Spironolactone 25 Mg Tablet, 50 MG PO 1300, (Reported) LAST FILLED #180 03-11-18 TAKES 2 (25MG) TABLETS Sulfamethoxazole/Trimethoprim 1 Each Tablet, 0.5 TAB PO HS, (Reported) TAKES 1/2 TABLET Tamsulosin HCl 0.4 Mg Cap.er.24h, 0.4 MG PO DAILY, (Reported) Umeclidinium [place] 62.5 Mcg Blst.w.dev, 1 PUFF INH DAILY, (Reported) Patient Home Medication List Home Medication List Reviewed: Yes Physical Exam-Cardiology Physical Exam Vital Signs/I&O 07/16/18 07/16/18 07/16/18 07/16/18 07:00 08:00 09:04 09:25 Temp 98.1 Pulse 75 76 Resp 20 B/P (MAP) 130/60 (83) Pulse Ox 96 94 O2 Delivery Nasal Cannula Nasal Cannula Nasal Cannula O2 Flow Rate 3.00 3.00 3.00 07/16/18 07/16/18 07/16/18 07/16/18 09:25 11:36 12:00 13:04 Temp 97.1 97.3 Pulse 72 71 Resp 20 B/P (MAP) 143/78 (99) Pulse Ox 96 O2 Delivery Nasal Cannula Nasal Cannula O2 Flow Rate 3.00 3.00 07/16/18 15:53 Pulse Ox 94 O2 Delivery Nasal Cannula O2 Flow Rate 3.00 07/16/18 00:00 Intake Total 1430 ml Output Total 750 ml Balance 680 ml Capillary Refill : Less Than 3 Seconds Constitutional: AAO x 3, well-developed, well-nourished HEENT: PERRL, hearing is well preserved Neck: No carotid bruit; carotid pulses are 2 + bilaterally Respiratory: No accessory muscle use, No respiratory distress; chest expansion is symmetric, chest is bilaterally symmetric, other (diminished; fair air entry) Cardiovascular: irregularly irregular, S1 and S2, systolic murmur Gastrointestinal: No tender; soft, round, audible bowel sounds Extremities: significant edema (bilat LE pitting edema) Neurologic/Psychiatric: grossly intact Skin: other (multiple areas of excoriation to his torso, hips; dressing to left great toe (not removed)) Lymphatic: no adenopathy Data Review Labs Laboratory Tests 07/15/18 21:15: Glucometer 475*H 07/16/18 05:15: White Blood Count 13.2H, Red Blood Count 3.61L, Hemoglobin 10.3L, Hematocrit 32L , Mean Corpuscular Volume 88, Mean Corpuscular Hemoglobin 29, Mean Corpuscular Hemoglobin Concent 32, Red Cell Distribution Width 14.9H, Platelet Count 248, Mean Platelet Volume 10.8H, Neutrophils (%) (Auto) 93H, Lymphocytes (%) (Auto) 6L, Monocytes (%) (Auto) 1, Eosinophils (%) (Auto) 0, Basophils (%) (Auto) 0, Neutrophils # (Auto) 12.3H, Lymphocytes # (Auto) 0.8L, Monocytes # (Auto) 0.2, Eosinophils # (Auto) 0.0, Basophils # (Auto) 0.0, Neutrophils % (Manual) 93, Lymphocytes % (Manual) 4, Monocytes % (Manual) 1, Band Neutrophils 2, Blood Morphology Comment NORMAL, Sodium Level 131L, Potassium Level 4.3, Chloride Level 96L, Carbon Dioxide Level 19L, Anion Gap 16H, Blood Urea Nitrogen 36H, Creatinine 1.83H, Estimat Glomerular Filtration Rate 37, BUN/Creatinine Ratio 20 , Glucose Level 464*H, Calcium Level 9.7, Corrected Calcium 9.5, Total Bilirubin 0.5, Aspartate Amino Transf (AST/SGOT) 20, Alanine Aminotransferase ( ALT/SGPT) 17, Alkaline Phosphatase 106, Total Protein 8.3H, Albumin 4.2 07/16/18 05:29: Glucometer 419*H 07/16/18 11:12: Glucometer 543*H 07/16/18 15:02: Glucometer 503*H 07/16/18 16:09: Glucometer 422*H Microbiology 07/15/18 Blood Culture - Preliminary, Resulted No growth A/P-Cardiology Assessment/Admission Diagnosis Dyspnea likely multifactorial - ac on chronic diastolic CHF, ac exacerbation of COPD, pneumonia and obesity-hypoventilation syndrome (Several hospitalizations in 2018) Obesity (BMI approx 60) with obesity-hypoventilation Acute on Chronic diastolic CHF Persistent a-fib first diagnosed in early February 2016, rate controlled Anemia of undetermined etiology; ongoing occult bleed suspected - management by Dr. Hutton of medical services. Dr Hutton has not allowed reinitiation of OAC - ASA tx only CAD with a h/o CABG in 2006 at [facility] in [place], [place]. On cardiac cath of 11-11-15: Multivessel coronary disease including multiple more than 90% stenosis of the proximal and mid left anterior descending artery. The mid to distal left anterior descending artery is protected with a widely patent left internal mammary artery graft. The left circumflex artery had 99% ostial/ proximal stenosis to which successful stenting was carried out with Promus Premier 3.5 x 20 mm stent with a reduction of stenosis to 0% residual. The distal left circumflex and its obtuse marginal branches have diffuse moderate to moderately severe disease which were not intervened on. The right coronary artery is dominant and had 90% proximal stenosis to which successful stenting was carried out with Promus Premier 2.75 x 28 mm stent with reduction of stenosis to 0% residual. The distal right coronary artery has multiple stenoses of 50 to 60%, which were not intervened on. Cardiac cath of 11-11-15 showed well preserved global left ventricular systolic function and ejection fraction of 55 to 60%. Elevated left ventricular end- diastolic pressure which was measured at approximately 20 mmHg. No significant mitral regurgitation. ABIs on 01/13/16 at [place], [place]: 1.1 on both sides Echocardiogram of 09/14/17 (Dr Costello): LVEF 55-65%, dilated LA, suboptimal study Chronic bilat leg swelling, likely due to venous insuff, no evidence of DVT on on venous duplex of 09/13/17 Hypertension Asthma - follows with Dr. Cadet Quit smoking in early DM II Chronic renal insufficiency - chronic likely due in some part to diabetic nephropathy Sleep apnea syndrome - CPAP therapy - managed by Dr. Paris and Dr. Cadet Minimal carotid dz on u/s of November 2015 Discussion and Recomendations Multi-factorial dyspnea as noted above Treat ac on chr diastolic CHF with diuretics Monitor lab closely Pneumonia management by medical services Continue home medication regimen including ASA, BB, Diltiazem, Aldactone, Metolazone, and statin Deemed not a suitable candidate for OAC d/t reasons noted above, therefore, will continue ASA Further recs will be based on his hospital course We would like to thank medical services for this consult Clinical Quality Measures DVT/VTE Risk/Contraindication: Risk Factor Score Per Nursin RFS Level Per Nursing on Admit: 4+=Very High CATY PENALOZA MD FACP FAC CCD Jul 16, 2018 16:43
[2018-07-16] MEDS: FUROSEMIDE 40 MG/4 ML INJ (LASIX) IVP SCH (18:08)
[2018-07-16] MEDS: methylPREDNISolone 40 MG/ML (Solu-MEDROL) VIAL IV SCH (18:08)
[2018-07-16] MEDS: TRIM/SULFAMETH 160/800 (SEPTRA DS) TAB PO SCH (18:09)
[2018-07-16] MEDS: PIPERACILLIN SODIUM/TAZOBACTAM 4.5 GM in NS (IVPB) 100 ML IV SCH (18:50)
[2018-07-16] MEDS: MONTELUKAST 10 MG (SINGULAIR) TAB PO SCH (20:34)
[2018-07-16] MEDS: FLUTICASONE NASAL SPRAY (FLONASE) 16 GM BTL NS SCH (20:34)
[2018-07-16] MEDS: RT-ALBUTEROL SULF 2.5 MG/3 ML PRE-MIX VIAL INH PRN (22:05)
[2018-07-17] MEDS: RT-ALBUTEROL/IPRATROPIUM 3 ML (DUONEB) VIAL INH SCH (01:35)
[2018-07-17] MEDS: methylPREDNISolone 40 MG/ML (Solu-MEDROL) VIAL IV SCH ×3 (01:54→20:52)
[2018-07-17] MEDS: PIPERACILLIN SODIUM/TAZOBACTAM 4.5 GM in NS (IVPB) 100 ML IV SCH ×3 (01:55→16:49)
[2018-07-17 04:00] VITALS: BP 134/63
[2018-07-17] MEDS: RT-ALBUTEROL SULF 2.5 MG/3 ML PRE-MIX VIAL INH PRN (04:07)
[2018-07-17] MEDS: FUROSEMIDE 40 MG/4 ML INJ (LASIX) IVP SCH ×2 (06:00→16:49)
[2018-07-17] MEDS: METOLAZONE 5 MG (ZAROXOLYN) TAB PO SCH (06:01)
[2018-07-17] MEDS: KCL 10 MEQ TAB (MICRO K) PO SCH ×2 (06:01→16:49)
[2018-07-17] MEDS: LEVOTHYROXINE 25 MCG (LEVOTHROID) TAB PO SCH (06:02)
[2018-07-17 06:23] LABS: BASOPHILS % (AUTO) 0 % (0-10); EOSINOPHILS % (AUTO) 0 % (0-10); HEMATOCRIT 33 % (40-54); HEMOGLOBIN 10.5 G/DL (13.3-17.7); LYMPHOCYTES # (AUTO) 0.7 X 10^3 (1.0-4.0); LYMPHOCYTES % (AUTO) 4 % (12-44); MEAN CORPUSCULAR HEMOGLOBIN 28 PG (25-34); MEAN CORPUSCULAR HGB CONC 32 G/DL (32-36); MEAN CORPUSCULAR VOLUME 88 FL (80-99); MEAN PLATELET VOLUME 10.4 FL (7.4-10.4); MONOCYTES # (AUTO) 0.8 X 10^3 (0.0-1.0); MONOCYTES % (AUTO) 4 % (0-12); NEUTROPHILS % (AUTO) 92 % (42-75); PLATELET COUNT 254 10^3/uL (130-400); RED BLOOD COUNT 3.71 10^6/uL (4.35-5.85); RED CELL DISTRIBUTION WIDTH 14.8 % (10.0-14.5); WHITE BLOOD COUNT 18.4 10^3/uL (4.3-11.0)
[2018-07-17 06:47] LABS: ALBUMIN 4.5 GM/DL (3.2-4.5); BILIRUBIN,TOTAL 0.4 MG/DL (0.1-1.0); CALCIUM 9.7 MG/DL (8.5-10.1); CREATININE SERUM 1.76 MG/DL (0.60-1.30); MAGNESIUM 2.1 MG/DL (1.8-2.4); POTASSIUM 2.7 MMOL/L (3.6-5.0); TOTAL PROTEIN 8.5 GM/DL (6.4-8.2)
[2018-07-17 07:42] VITALS: BP 128/60
[2018-07-17] MEDS: inSUlin DETERMIR 1 UNIT/0.01 ML (LEVEMIR) CHARGE PER UNIT SQ SCH ×2 (08:20→20:53)
[2018-07-17] MEDS: ASPIRIN 81 MG CHEW (CHILDREN'S ASA) PO SCH (08:20)
[2018-07-17] MEDS: TAMSULOSIN 0.4 MG (FLOMAX) CAP PO SCH (08:20)
[2018-07-17] MEDS: meTOproloL SUCCINATE 50 MG (TOPROL XL) TAB PO SCH (08:20)
[2018-07-17] MEDS: ROSUVASTATIN 5 MG (CRESTOR) TABLET PO SCH (08:20)
[2018-07-17] MEDS: FINASTERIDE (PROSCAR) 5 MG TAB PO SCH (08:20)
[2018-07-17] MEDS: LORATADINE (CLARITIN) 10 MG TAB PO SCH (08:20)
[2018-07-17] MEDS: DILTIAZEM 240 MG (CARDIZEM CD) CAP PO SCH (08:20)
[2018-07-17] MEDS: ENOXAPARIN 60 MG/0.6 ML (LOVENOX) SYR SC SCH ×2 (08:21→20:52)
[2018-07-17] MEDS: UMECLIDINIUM BROMIDE (INCRUSE ELLIPTA) 7'S IH SCH (08:39)
[2018-07-17] MEDS: RT-ADVAIR HFA 115/21 MCG PER PUFF IH SCH ×2 (08:39→18:45)
[2018-07-17] MEDS ORDERED: KCL 20 MEQ TAB (K-DUR) PO NR ×2 (09:15→12:00)
--- NOTE | 2018-07-17 09:29 | Progress Note-Hospitalist ---
CHAO PAT 07/17/18 0929: Subjective HPI/CC On Admission Pt is a 67yoCM known to me from previous admissions who presented to the ER due to cough and SOB that had been worsening for the past few days. He complains of nasal congestion and sputum production that had been worsening as well. He reports he felt like he was getting pneumonia so decided to come in to be evaluated because he has had very severe cases of pneumonia. He otherwise has not complaints. Subjective/Events-last exam Patient is doing a bit better BM starting with meds Insulin drip has been stopped due to improved insulin Abx and Nebs tolerated Nebs Q4hrs ordered Review of Systems Pulmonary: Dyspnea, Cough Focused Exam Lactate Level 07/15/18 07:20: Lactic Acid Level 2.68*H 07/15/18 09:44: Lactic Acid Level 2.12*H Objective Exam Vital Signs Vital Signs Date Time Temp Pulse Resp B/P (MAP) Pulse Ox O2 Delivery O2 Flow Rate FiO2 07/17/18 16:00 98.1 70 22 131/60 (83) 94 Nasal Cannula 3.00 Capillary Refill : Less Than 3 Seconds General Appearance: No Apparent Distress, WD/WN, Chronically ill, Obese Neck: Full Range of Motion, Normal Inspection, Non Tender, Supple, Carotid Bruit Respiratory: Chest Non Tender, Normal Breath Sounds, No Accessory Muscle Use, No Respiratory Distress, Decreased Breath Sounds, Wheezing Cardiovascular: No Edema, No Gallop, No JVD, No Murmur, Normal Peripheral Pulses, Irregularly Irregular Neurologic/Psychiatric: Alert, Oriented x3, No Motor/Sensory Deficits, Normal Mood/Affect Results/Procedures Lab Laboratory Tests 07/17/18 06:10 Patient resulted labs reviewed. Imaging: Reviewed Imaging Report Assessment/Plan Assessment and Plan Assess & Plan/Chief Complaint Assessment: Acute on chronic bronchitis Severe hyperglycemia requiring insulin drip now DC and on large doses of SQ insulin Severe lung disease dx with restrictive lung disease along with COPD due to previous smoking hx CAD h/o CABG CRI HTN Chronic AF HLP BPH Chronic UTI's Plan: IV abx IV steroids Nebs O2 SQ insulin Home meds Prognosis terminal superintendent is guarded Diagnosis/Problems Diagnosis/Problems (1) COPD (chronic obstructive pulmonary disease) with acute bronchitis Status: Acute (2) Chronic atrial fibrillation Status: Chronic (3) Obesity hypoventilation syndrome Status: Chronic (4) Diabetes mellitus Status: Chronic Qualifiers: Diabetes mellitus type: type 2 Diabetes mellitus [facility] insulin use: with [facility] use Diabetes mellitus complication status: with circulatory complication Diabetes mellitus complication detail: with other circulatory complications Qualified Codes: E11.59 - Type 2 diabetes mellitus with other circulatory complications; Z79.4 - termite control servicer (current) use of insulin (5) COPD exacerbation Status: Acute (6) Diastolic CHF Status: Acute Qualifiers: Heart failure chronicity: acute on chronic Qualified Codes: I50.33 - Acute on chronic diastolic (congestive) heart failure (7) Hypothyroidism Status: Chronic Qualifiers: Hypothyroidism type: acquired Qualified Codes: E03.9 - Hypothyroidism, unspecified (8) Renal insufficiency Status: Acute (9) Essential (primary) hypertension Status: Chronic (10) CAD (coronary artery disease) Status: Chronic (11) Poor prognosis Status: Chronic (12) JOSE MANUEL (obstructive sleep apnea) Status: Chronic Clinical Quality Measures DVT/VTE Risk/Contraindication: Risk Factor Score Per Nursin RFS Level Per Nursing on Admit: 4+=Very High JANELLE WINSTON MED STUDENT 07/17/18 1043: Subjective HPI/CC On Admission Date Seen by Provider: Jul 17, 2018 Time Seen by Provider: 08:00 Subjective/Events-last exam Pt reports that his SOB has improved since yesterday Breathing tx are currently scheduled q6 and pt requested to increase them to q4 since that is what he usually does at home Severe hyperglycemia overnight (420-450), but has come down to 118 this morning Hypokalemia and leukocytosis noted on morning labs. Objective Exam General Appearance: Chronically ill, Obese Respiratory: Lungs Clear, Decreased Breath Sounds, Wheezing Gastrointestinal: Normal Bowel Sounds Extremity: Pedal Edema Neurologic/Psychiatric: Alert, Oriented x3, Normal Mood/Affect Assessment/Plan Assessment and Plan Assess & Plan/Chief Complaint Assessment: 1. Acute on chronic bronchitis 2. Severe hyperglycemia 3. Chronic AF 4. HTN 5. HLP 6. Restrictive lung disease 7. Morbid obesity Plan: 1. Increase breathing treatments to q4 2. Decrease IV steroids due to hyperglycemia and leukocytosis 3. Continue IV zosyn 4. PO potassium for hypokalemia 5. Stop insulin drip- resume normal insulin schedule 6. Monitor labs closely Diagnosis/Problems Diagnosis/Problems (1) Acute exacerbation of chronic bronchitis (2) CAD (coronary artery disease) Status: Chronic (3) Diabetes mellitus Status: Chronic Qualifiers: Diabetes mellitus type: type 2 Diabetes mellitus terminal superintendent insulin use: with terminal superintendent use Diabetes mellitus complication status: with circulatory complication Diabetes mellitus complication detail: with other circulatory complications Qualified Codes: E11.59 - Type 2 diabetes mellitus with other circulatory complications; Z79.4 - termite control servicer (current) use of insulin (4) Hypokalemia Status: Acute (5) Diabetic foot ulcers Status: Acute (6) JOSE MANUEL (obstructive sleep apnea) Status: Chronic (7) Chronic atrial fibrillation Status: Chronic (8) Obesity hypoventilation syndrome Status: Chronic CHAO PAT DO Jul 17, 2018 09:29 JANELLE WINSTON STUDENT Jul 17, 2018 10:43
[2018-07-17] MEDS: NS IV 1000 ML 1,000 ML IV SCH (11:31)
[2018-07-17] MEDS: inSUlin ASPART (NovoLOG) 1 UNIT/0.01 ML (CHARGE PER UNIT) SC SCH ×3 (11:42→20:53)
[2018-07-17 11:49] VITALS: BP 119/58
--- NOTE | 2018-07-17 12:22 | Progress Note-Cardiology ---
Cardiology SOAP Progress Note Subjective: Shortness of breath modestly improved No cp or palp or syncope Leg swelling unchanged Objective: I&O/Vital Signs 07/17/18 07/17/18 07/17/18 07/17/18 01:00 01:35 04:00 04:09 Temp 96.9 Pulse 61 70 67 71 Resp 18 20 25 B/P (MAP) 134/63 (86) Pulse Ox 98 100 99 O2 Delivery NIV Bilevel O2 Flow Rate 35.00 35.00 07/17/18 07/17/18 07/17/18 07/17/18 07:00 07:42 08:39 08:41 Temp 97.3 Pulse 71 74 Resp 20 B/P (MAP) 128/60 (82) Pulse Ox 94 94 O2 Delivery Nasal Cannula Nasal Cannula Nasal Cannula O2 Flow Rate 3.50 3.00 3.00 07/17/18 07/17/18 10:28 11:49 Temp 98.5 Pulse 73 Resp 16 B/P (MAP) 119/58 (78) Pulse Ox 94 95 O2 Delivery Nasal Cannula Nasal Cannula O2 Flow Rate 3.00 3.50 07/17/18 00:00 Intake Total 2040 ml Output Total 4280 ml Balance -2240 ml Weight (Pounds): 385 Weight (Ounces): 0.0 Weight (Calculated Kilograms): 174.740101 Constitutional: AAO x 3, well-developed, well-nourished Respiratory: No accessory muscle use, No respiratory distress; chest expansion is symmetric, chest is bilaterally symmetric, other (diminished; fair air entry) Cardiovascular: irregularly irregular, S1 and S2, systolic murmur Gastrointestional: No tender; soft, round, audible bowel sounds Extremities: significant edema (bilat LE pitting edema) Neurologic/Psychiatric: grossly intact Skin: other (multiple areas of excoriation to his torso, hips; dressing to left great toe (not removed)) Results/Procedures: Labs Laboratory Tests 07/16/18 15:02: Glucometer 503*H 07/16/18 16:09: Glucometer 422*H 07/16/18 17:02: Glucometer 422*H 07/16/18 17:55: Glucometer 390H 07/16/18 18:56: Glucometer 439*H 07/16/18 20:07: Glucometer 450*H 07/16/18 21:25: Glucometer 410*H 07/16/18 22:25: Glucometer 333H 07/16/18 23:24: Glucometer 328H 07/17/18 00:23: Glucometer 247H 07/17/18 01:25: Glucometer 195H 07/17/18 02:38: Glucometer 192H 07/17/18 03:44: Glucometer 132H 07/17/18 04:59: Glucometer 127H 07/17/18 06:04: Glucometer 118H 07/17/18 06:10: White Blood Count 18.4H, Red Blood Count 3.71L, Hemoglobin 10.5L, Hematocrit 33L , Mean Corpuscular Volume 88, Mean Corpuscular Hemoglobin 28, Mean Corpuscular Hemoglobin Concent 32, Red Cell Distribution Width 14.8H, Platelet Count 254, Mean Platelet Volume 10.4, Neutrophils (%) (Auto) 92H, Lymphocytes (%) (Auto) 4L , Monocytes (%) (Auto) 4, Eosinophils (%) (Auto) 0, Basophils (%) (Auto) 0, Neutrophils # (Auto) 17.0H, Lymphocytes # (Auto) 0.7L, Monocytes # (Auto) 0.8, Eosinophils # (Auto) 0.0, Basophils # (Auto) 0.0, Sodium Level 136, Potassium Level 2.7L, Chloride Level 98, Carbon Dioxide Level 22, Anion Gap 16H, Blood Urea Nitrogen 50H, Creatinine 1.76H, Estimat Glomerular Filtration Rate 39, BUN/ Creatinine Ratio 28, Glucose Level 106H, Calcium Level 9.7, Corrected Calcium 9.3, Magnesium Level 2.1, Total Bilirubin 0.4, Aspartate Amino Transf (AST/SGOT ) 17, Alanine Aminotransferase (ALT/SGPT) 15, Alkaline Phosphatase 91, Total Protein 8.5H, Albumin 4.5 07/17/18 07:03: Glucometer 176H 07/17/18 08:05: Glucometer 182H 07/17/18 09:18: Glucometer 196H 07/17/18 11:41: Glucometer 150H Microbiology 07/15/18 Blood Culture - Preliminary, Resulted No growth Laboratory Tests 07/16/18 05:15 07/17/18 06:10 A/P: Assessment: Dyspnea likely multifactorial - ac on chronic diastolic CHF, ac exacerbation of COPD, pneumonia and obesity-hypoventilation syndrome (Several hospitalizations in 2018) Obesity (BMI approx 60) with obesity-hypoventilation Acute on Chronic diastolic CHF Persistent a-fib first diagnosed in early February 2016, rate controlled Anemia of undetermined etiology; ongoing occult bleed suspected - management by Dr. Hutton of medical services. Dr Hutton has not allowed reinitiation of OAC - ASA tx only CAD with a h/o CABG in 2006 at [facility] in [place], [place]. On cardiac cath of 11-11-15: Multivessel coronary disease including multiple more than 90% stenosis of the proximal and mid left anterior descending artery. The mid to distal left anterior descending artery is protected with a widely patent left internal mammary artery graft. The left circumflex artery had 99% ostial/ proximal stenosis to which successful stenting was carried out with Promus Premier 3.5 x 20 mm stent with a reduction of stenosis to 0% residual. The distal left circumflex and its obtuse marginal branches have diffuse moderate to moderately severe disease which were not intervened on. The right coronary artery is dominant and had 90% proximal stenosis to which successful stenting was carried out with Promus Premier 2.75 x 28 mm stent with reduction of stenosis to 0% residual. The distal right coronary artery has multiple stenoses of 50 to 60%, which were not intervened on. Cardiac cath of 11-11-15 showed well preserved global left ventricular systolic function and ejection fraction of 55 to 60%. Elevated left ventricular end- diastolic pressure which was measured at approximately 20 mmHg. No significant mitral regurgitation. ABIs on 01/13/16 at [place], [place]: 1.1 on both sides Echocardiogram of 09/14/17 (Dr Costello): LVEF 55-65%, dilated LA, suboptimal study Chronic bilat leg swelling, likely due to venous insuff, no evidence of DVT on on venous duplex of 09/13/17 Hypertension Asthma - follows with Dr. 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 Paris and Dr. Cadet Minimal carotid dz on u/s of November 2015 Plan: * Complex management due to multiple comorbidities noted above * Treat ac on chr diastolic CHF with diuretics * Replenish K * Monitor lab closely * Pneumonia management by Medical Services * Continue home medication regimen including ASA, BB, Diltiazem, Aldactone, Metolazone, and statin * Deemed not a suitable candidate for OAC d/t reasons noted above, therefore, will continue ASA * Further recs will be based on his hospital course * I spoke with him and answered questions CATY PENALOZA MD FACP [facility] Jul 17, 2018 12:22
[2018-07-17] MEDS: SPIRONOLACTONE 25 MG (ALDACTONE) TAB PO SCH (13:04)
[2018-07-17 16:00] VITALS: BP 131/60
[2018-07-17] MEDS: RT-ALBUTEROL SULF 2.5 MG/3 ML PRE-MIX VIAL INH SCH ×2 (18:45→21:38)
[2018-07-17 20:00] VITALS: BP 122/64
[2018-07-17] MEDS: MONTELUKAST 10 MG (SINGULAIR) TAB PO SCH (20:52)
[2018-07-17] MEDS: FLUTICASONE NASAL SPRAY (FLONASE) 16 GM BTL NS SCH (20:52)
[2018-07-18] VITALS (7 sets, daily range): BP systolic 133–169; BP diastolic 69–80
[2018-07-18] MEDS: RT-ALBUTEROL SULF 2.5 MG/3 ML PRE-MIX VIAL INH SCH ×6 (01:22→21:18)
[2018-07-18] MEDS: PIPERACILLIN SODIUM/TAZOBACTAM 4.5 GM in NS (IVPB) 100 ML IV SCH ×3 (01:28→16:41)
[2018-07-18 05:43] LABS: BASOPHILS % (AUTO) 0 % (0-10); EOSINOPHILS % (AUTO) 0 % (0-10); HEMATOCRIT 31 % (40-54); HEMOGLOBIN 10.2 G/DL (13.3-17.7); LYMPHOCYTES # (AUTO) 0.7 X 10^3 (1.0-4.0); LYMPHOCYTES % (AUTO) 4 % (12-44); MEAN CORPUSCULAR HEMOGLOBIN 29 PG (25-34); MEAN CORPUSCULAR HGB CONC 33 G/DL (32-36); MEAN CORPUSCULAR VOLUME 88 FL (80-99); MEAN PLATELET VOLUME 10.5 FL (7.4-10.4); MONOCYTES # (AUTO) 0.8 X 10^3 (0.0-1.0); MONOCYTES % (AUTO) 5 % (0-12); NEUTROPHILS # (AUTO) 13.9 X 10^3 (1.8-7.8); NEUTROPHILS % (AUTO) 90 % (42-75); PLATELET COUNT 254 10^3/uL (130-400); RED BLOOD COUNT 3.48 10^6/uL (4.35-5.85); RED CELL DISTRIBUTION WIDTH 14.9 % (10.0-14.5); WHITE BLOOD COUNT 15.5 10^3/uL (4.3-11.0)
[2018-07-18] MEDS: inSUlin ASPART (NovoLOG) 1 UNIT/0.01 ML (CHARGE PER UNIT) SC SCH (06:09)
[2018-07-18] MEDS: FUROSEMIDE 40 MG/4 ML INJ (LASIX) IVP SCH (06:09)
[2018-07-18] MEDS: METOLAZONE 5 MG (ZAROXOLYN) TAB PO SCH (06:09)
[2018-07-18] MEDS: KCL 10 MEQ TAB (MICRO K) PO SCH ×2 (06:09→16:41)
[2018-07-18] MEDS: LEVOTHYROXINE 25 MCG (LEVOTHROID) TAB PO SCH (06:09)
[2018-07-18 06:30] LABS: ALBUMIN 4.4 GM/DL (3.2-4.5); BILIRUBIN,TOTAL 0.5 MG/DL (0.1-1.0); CALCIUM 9.3 MG/DL (8.5-10.1); CREATININE SERUM 1.87 MG/DL (0.60-1.30); MAGNESIUM 2.4 MG/DL (1.8-2.4); TOTAL PROTEIN 8.3 GM/DL (6.4-8.2)
[2018-07-18] MEDS: UMECLIDINIUM BROMIDE (INCRUSE ELLIPTA) 7'S IH SCH (07:40)
[2018-07-18] MEDS: RT-ADVAIR HFA 115/21 MCG PER PUFF IH SCH ×2 (07:40→21:19)
--- NOTE | 2018-07-18 09:14 | Progress Note-Cardiology ---
Cardiology SOAP Progress Note Subjective: Sitting up in a chair at the bedside. Feels breathing is improving. Feels LE swelling improving. No c/o CP or palpitations. Objective: I&O/Vital Signs 07/18/18 07/18/18 07/18/18 07/18/18 19:51 20:00 20:30 21:29 Temp 98.1 Pulse 74 81 68 Resp 24 21 B/P (MAP) 169/80 (109) Pulse Ox 98 98 O2 Delivery Nasal Cannula NIV Bilevel O2 Flow Rate 3.00 30.00 07/18/18 07/18/18 07/19/18 07/19/18 21:38 23:40 01:00 03:01 Temp 97.7 Pulse 71 82 Resp 20 B/P (MAP) 148/71 (96) Pulse Ox 95 94 O2 Delivery NIV Bilevel NIV Bilevel Nasal Cannula O2 Flow Rate 3.00 07/19/18 07/19/18 07/19/18 04:00 07:02 07:03 Temp 97.8 Pulse 69 Resp 22 B/P (MAP) 150/70 (96) Pulse Ox 99 94 O2 Delivery Nasal Cannula Nasal Cannula NIV Bilevel O2 Flow Rate 3.00 3.00 07/18/18 23:59 Intake Total 2340 ml Output Total 3502 ml Balance -1162 ml Weight (Pounds): 385 Weight (Ounces): 0.0 Weight (Calculated Kilograms): 174.781757 Constitutional: AAO x 3, well-developed, well-nourished Respiratory: No accessory muscle use, No respiratory distress; chest expansion is symmetric, chest is bilaterally symmetric, other (diminished; fair air entry) Cardiovascular: irregularly irregular, S1 and S2, systolic murmur Gastrointestional: No tender; soft, round, audible bowel sounds Extremities: significant edema (bilat LE pitting edema) Neurologic/Psychiatric: grossly intact Skin: other (multiple areas of excoriation to his torso, hips; dressing to left great toe (not removed)) Results/Procedures: Labs Laboratory Tests 07/18/18 11:43: Glucometer 446*H 07/18/18 15:57: Glucometer 433*H 07/18/18 20:40: Glucometer 435*H 07/19/18 05:40: White Blood Count 14.9H, Red Blood Count 3.65L, Hemoglobin 10.3L, Hematocrit 32L , Mean Corpuscular Volume 89, Mean Corpuscular Hemoglobin 28, Mean Corpuscular Hemoglobin Concent 32, Red Cell Distribution Width 14.7H, Platelet Count 230, Mean Platelet Volume 10.6H, Neutrophils (%) (Auto) 83H, Lymphocytes (%) (Auto) 7L, Monocytes (%) (Auto) 10, Eosinophils (%) (Auto) 0, Basophils (%) (Auto) 0, Neutrophils # (Auto) 12.4H, Lymphocytes # (Auto) 1.1, Monocytes # (Auto) 1.5H, Eosinophils # (Auto) 0.0, Basophils # (Auto) 0.0, Sodium Level 135, Potassium Level 3.7, Chloride Level 97L, Carbon Dioxide Level 23, Anion Gap 15H, Blood Urea Nitrogen 49H, Creatinine 1.71H, Estimat Glomerular Filtration Rate 40, BUN/ Creatinine Ratio 29, Glucose Level 382H, Calcium Level 9.3, Corrected Calcium 9.1, Total Bilirubin 0.5, Aspartate Amino Transf (AST/SGOT) 21, Alanine Aminotransferase (ALT/SGPT) 27, Alkaline Phosphatase 79, Total Protein 8.0, Albumin 4.3 07/19/18 06:25: Glucometer 338H Microbiology 07/15/18 Blood Culture - Preliminary, Resulted No growth A/P: Assessment: Dyspnea likely multifactorial - ac on chronic diastolic CHF, ac exacerbation of COPD, pneumonia and obesity-hypoventilation syndrome (Several hospitalizations in 2018) Obesity (BMI approx 60) with obesity-hypoventilation Acute on Chronic diastolic CHF - clinically improving Persistent a-fib first diagnosed in early February 2016, rate controlled Anemia of undetermined etiology; ongoing occult bleed suspected - management by Dr. Hutton of medical services. Dr Hutton has not allowed reinitiation of OAC - ASA tx only CAD with a h/o CABG in 2006 at [facility] in [place], [place]. On cardiac cath of 11-11-15: Multivessel coronary disease including multiple more than 90% stenosis of the proximal and mid left anterior descending artery. The mid to distal left anterior descending artery is protected with a widely patent left internal mammary artery graft. The left circumflex artery had 99% ostial/ proximal stenosis to which successful stenting was carried out with Promus Premier 3.5 x 20 mm stent with a reduction of stenosis to 0% residual. The distal left circumflex and its obtuse marginal branches have diffuse moderate to moderately severe disease which were not intervened on. The right coronary artery is dominant and had 90% proximal stenosis to which successful stenting was carried out with Promus Premier 2.75 x 28 mm stent with reduction of stenosis to 0% residual. The distal right coronary artery has multiple stenoses of 50 to 60%, which were not intervened on. Cardiac cath of 11-11-15 showed well preserved global left ventricular systolic function and ejection fraction of 55 to 60%. Elevated left ventricular end- diastolic pressure which was measured at approximately 20 mmHg. No significant mitral regurgitation. ABIs on 01/13/16 at [place], [place]: 1.1 on both sides Echocardiogram of 09/14/17 (Dr Costello): LVEF 55-65%, dilated LA, suboptimal study Chronic bilat leg swelling, likely due to venous insuff, no evidence of DVT on on venous duplex of 09/13/17 Hypertension Asthma - follows with Dr. 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 Paris and Dr. Cadet Minimal carotid dz on u/s of November 2015 Plan: * Complex management due to multiple comorbidities noted above * Treat ac on chr diastolic CHF with diuretics * Acute on chronic renal insufficiency - worsening Cr likely d/t aggressive diuretics - reduce dose * Replenish K * Monitor lab closely * Pneumonia management by Medical Services * Continue home medication regimen including ASA, BB, Diltiazem, Aldactone, Metolazone, and statin * Deemed not a suitable candidate for OAC d/t reasons noted above, therefore, will continue ASA * Further recs will be based on his hospital course * I spoke with him and answered questions BENJAMIN ARROYO Jul 18, 2018 09:14
[2018-07-18] MEDS ORDERED: KCL 20 MEQ TAB (K-DUR) PO ONE ×3 (09:15→15:00)
[2018-07-18] MEDS: meTOproloL SUCCINATE 50 MG (TOPROL XL) TAB PO SCH (09:21)
[2018-07-18] MEDS: ASPIRIN 81 MG CHEW (CHILDREN'S ASA) PO SCH (09:21)
[2018-07-18] MEDS: LORATADINE (CLARITIN) 10 MG TAB PO SCH (09:21)
[2018-07-18] MEDS: FINASTERIDE (PROSCAR) 5 MG TAB PO SCH (09:21)
[2018-07-18] MEDS: DILTIAZEM 240 MG (CARDIZEM CD) CAP PO SCH (09:21)
[2018-07-18] MEDS: TAMSULOSIN 0.4 MG (FLOMAX) CAP PO SCH (09:21)
[2018-07-18] MEDS: ROSUVASTATIN 5 MG (CRESTOR) TABLET PO SCH (09:21)
[2018-07-18] MEDS: methylPREDNISolone 40 MG/ML (Solu-MEDROL) VIAL IV SCH (09:22)
[2018-07-18] MEDS: ENOXAPARIN 60 MG/0.6 ML (LOVENOX) SYR SC SCH (09:23)
[2018-07-18] MEDS: inSUlin DETERMIR 1 UNIT/0.01 ML (LEVEMIR) CHARGE PER UNIT SQ SCH ×2 (09:23→21:17)
[2018-07-18] MEDS ORDERED: KCL 10 MEQ TAB (MICRO K) PO NR ×3 (09:30→15:00)
[2018-07-18] MEDS: NS IV 1000 ML 1,000 ML IV SCH (10:58)
--- NOTE | 2018-07-18 11:27 | Progress Note-Hospitalist ---
CHAO PAT DO 07/18/18 1127: Subjective HPI/CC On Admission Date Seen by Provider: Jul 18, 2018 Time Seen by Provider: 11:00 Pt is a 67yoCM known to me from previous admissions who presented to the ER due to cough and SOB that had been worsening for the past few days. He complains of nasal congestion and sputum production that had been worsening as well. He reports he felt like he was getting pneumonia so decided to come in to be evaluated because he has had very severe cases of pneumonia. He otherwise has not complaints. Subjective/Events-last exam Patient is much better likely due to clearance of phlegm when he had the severe coughing episode Bowels not moving Stop Lovenox due to life threatening bleed in the past now bleeding again profusely May DC tomorrow Review of Systems General: Fatigue Objective Exam Vital Signs Vital Signs Date Time Temp Pulse Resp B/P (MAP) Pulse Ox O2 Delivery O2 Flow Rate FiO2 07/19/18 07:03 NIV Bilevel 07/19/18 07:02 94 3.00 07/19/18 04:00 97.8 69 22 150/70 (96) Capillary Refill : Less Than 3 Seconds General Appearance: No Apparent Distress, WD/WN, Chronically ill, Obese Respiratory: Chest Non Tender, Lungs Clear, Normal Breath Sounds, No Accessory Muscle Use, No Respiratory Distress Cardiovascular: Regular Rate, Rhythm, No Edema, No Gallop, No JVD, No Murmur, Normal Peripheral Pulses Neurologic/Psychiatric: Alert, Oriented x3, No Motor/Sensory Deficits, Normal Mood/Affect Skin: Normal Color, Warm/Dry Results/Procedures Lab Laboratory Tests 07/19/18 05:40 Patient resulted labs reviewed. Imaging: Reviewed Imaging Report Assessment/Plan Assessment and Plan Assess & Plan/Chief Complaint Assessment: Acute on chronic bronchitis improved after coughing episode after aspirated potassium Severe hyperglycemia requiring insulin drip now DC and on large doses of SQ insulin and changed to regular insulin Severe lung disease dx with restrictive lung disease along with COPD due to previous smoking hx CAD h/o CABG CRI HTN Chronic AF HLP BPH Chronic UTI's Plan: IV abx IV steroids but minimize Nebs O2 SQ insulin but DC Novolog and give regular Home meds Prognosis long-term is guarded Diagnosis/Problems Diagnosis/Problems (1) COPD (chronic obstructive pulmonary disease) with acute bronchitis Status: Acute (2) Chronic atrial fibrillation Status: Chronic (3) Obesity hypoventilation syndrome Status: Chronic (4) Diabetes mellitus Status: Chronic Qualifiers: Diabetes mellitus type: type 2 Diabetes mellitus terminal make up operator insulin use: with terminal make up operator use Diabetes mellitus complication status: with circulatory complication Diabetes mellitus complication detail: with other circulatory complications Qualified Codes: E11.59 - Type 2 diabetes mellitus with other circulatory complications; Z79.4 - shelter (current) use of insulin (5) COPD exacerbation Status: Acute (6) Diastolic CHF Status: Acute Qualifiers: Heart failure chronicity: acute on chronic Qualified Codes: I50.33 - Acute on chronic diastolic (congestive) heart failure (7) Hypothyroidism Status: Chronic Qualifiers: Hypothyroidism type: acquired Qualified Codes: E03.9 - Hypothyroidism, unspecified (8) Renal insufficiency Status: Acute (9) Essential (primary) hypertension Status: Chronic (10) CAD (coronary artery disease) Status: Chronic (11) Poor prognosis Status: Chronic (12) JOSE MANUEL (obstructive sleep apnea) Status: Chronic Clinical Quality Measures DVT/VTE Risk/Contraindication: Risk Factor Score Per Nursin RFS Level Per Nursing on Admit: 4+=Very High Contraindications-Pharm: Other *list below* Other: bleeding MERLE PORRAS MED STUDENT 07/18/18 1152: Subjective Subjective/Events-last exam Patient states that he is feeling much better this morning He reports that he choked on a potassium pill yesterday and coughed until he started expectorating blood He reports that his central IV "blew out" last night and he bled everywhere Patient has not had a BM since Sunday Objective Exam General Appearance: No Apparent Distress, WD/WN, Chronically ill, Obese Respiratory: Chest Non Tender, No Accessory Muscle Use, No Respiratory Distress , Wheezing Cardiovascular: Regular Rate, Rhythm, No Gallop, No JVD, No Murmur Gastrointestinal: Normal Bowel Sounds Neurologic/Psychiatric: Alert, Oriented x3, No Motor/Sensory Deficits, Normal Mood/Affect Skin: Normal Color, Warm/Dry Assessment/Plan Assessment and Plan Assess & Plan/Chief Complaint Assessment: 1) COPD exacerbation 2) Diabetes 3) Obesity 4) CRI Plan: 1) Continue IV steroids 2) Continue IV antibiotics 3) Continue breathing treatments CHAO PAT DO Jul 18, 2018 11:27 MERLE PORRAS MED STUDENT Jul 18, 2018 11:52
[2018-07-18] MEDS ORDERED: inSUlin (REGULAR) HUMAN 1 UNIT/0.01 ML (CHARGE PER UNIT) SC NR (12:00)
[2018-07-18] MEDS: LACTULOSE SYRUP 10GM/15ML (ENULOSE) 30ML UDC PO SCH ×2 (12:08→21:17)
[2018-07-18] MEDS: SPIRONOLACTONE 25 MG (ALDACTONE) TAB PO SCH (12:08)
[2018-07-18] MEDS: SENNA W/DOCUSATE (SENOKOT S) TABLET PO SCH ×2 (12:17→21:17)
--- NOTE | 2018-07-18 13:36 | Progress Note-Cardiology ---
Cardiology SOAP Progress Note Subjective: Shortness of breath and leg swelling somewhat better No cp or palp or syncope Objective: I&O/Vital Signs 07/18/18 07/18/18 07/18/18 07/18/18 03:40 03:55 07:01 07:43 Temp 97.2 Pulse 72 79 81 Resp 25 20 B/P (MAP) 165/76 (105) Pulse Ox 97 97 95 O2 Delivery NIV Bilevel Nasal Cannula O2 Flow Rate 30.00 3.00 07/18/18 07/18/18 07/18/18 08:46 10:53 11:41 Temp 97.3 97.7 Pulse 78 68 Resp 22 22 B/P (MAP) 138/70 (92) 136/70 (92) Pulse Ox 96 93 O2 Delivery NIV Bilevel Nasal Cannula NIV Bilevel O2 Flow Rate 3.00 07/18/18 00:00 Intake Total 1440 ml Output Total 2565 ml Balance -1125 ml Weight (Pounds): 385 Weight (Ounces): 0.0 Weight (Calculated Kilograms): 174.988900 Constitutional: AAO x 3, well-developed, well-nourished Respiratory: No accessory muscle use, No respiratory distress; chest expansion is symmetric, chest is bilaterally symmetric, other (diminished; fair air entry) Cardiovascular: irregularly irregular, S1 and S2, systolic murmur Gastrointestional: No tender; soft, round, audible bowel sounds Extremities: significant edema (bilat LE pitting edema) Neurologic/Psychiatric: grossly intact Skin: other (multiple areas of excoriation to his torso, hips; dressing to left great toe (not removed)) Results/Procedures: Labs Laboratory Tests 07/17/18 15:47: Glucometer 327H 07/17/18 20:36: Glucometer 447*H 07/18/18 04:50: White Blood Count 15.5H, Red Blood Count 3.48L, Hemoglobin 10.2L, Hematocrit 31L , Mean Corpuscular Volume 88, Mean Corpuscular Hemoglobin 29, Mean Corpuscular Hemoglobin Concent 33, Red Cell Distribution Width 14.9H, Platelet Count 254, Mean Platelet Volume 10.5H, Neutrophils (%) (Auto) 90H, Lymphocytes (%) (Auto) 4L, Monocytes (%) (Auto) 5, Eosinophils (%) (Auto) 0, Basophils (%) (Auto) 0, Neutrophils # (Auto) 13.9H, Lymphocytes # (Auto) 0.7L, Monocytes # (Auto) 0.8, Eosinophils # (Auto) 0.0, Basophils # (Auto) 0.0, Sodium Level 135, Potassium Level 3.0L, Chloride Level 96L, Carbon Dioxide Level 21, Anion Gap 18H, Blood Urea Nitrogen 55H, Creatinine 1.87H, Estimat Glomerular Filtration Rate 36, BUN/ Creatinine Ratio 29, Glucose Level 315H, Calcium Level 9.3, Corrected Calcium 9.0, Magnesium Level 2.4, Total Bilirubin 0.5, Aspartate Amino Transf (AST/SGOT ) 25, Alanine Aminotransferase (ALT/SGPT) 23, Alkaline Phosphatase 83, Total Protein 8.3H, Albumin 4.4 07/18/18 05:35: Glucometer 301H 07/18/18 11:43: Glucometer 446*H Microbiology 07/15/18 Blood Culture - Preliminary, Resulted No growth Laboratory Tests 07/17/18 06:10 07/18/18 04:50 A/P: Assessment: Dyspnea likely multifactorial - ac on chronic diastolic CHF, ac exacerbation of COPD, pneumonia and obesity-hypoventilation syndrome (Several hospitalizations in 2018) Obesity (BMI approx 60) with obesity-hypoventilation Acute on Chronic diastolic CHF - clinically improving Persistent a-fib first diagnosed in early February 2016, rate controlled Anemia of undetermined etiology; ongoing occult bleed suspected - management by Dr. Hutton of medical services. Dr Hutton has not allowed reinitiation of OAC - ASA tx only CAD with a h/o CABG in 2006 at [facility] in [place], [place]. On cardiac cath of 11-11-15: Multivessel coronary disease including multiple more than 90% stenosis of the proximal and mid left anterior descending artery. The mid to distal left anterior descending artery is protected with a widely patent left internal mammary artery graft. The left circumflex artery had 99% ostial/ proximal stenosis to which successful stenting was carried out with Promus Premier 3.5 x 20 mm stent with a reduction of stenosis to 0% residual. The distal left circumflex and its obtuse marginal branches have diffuse moderate to moderately severe disease which were not intervened on. The right coronary artery is dominant and had 90% proximal stenosis to which successful stenting was carried out with Promus Premier 2.75 x 28 mm stent with reduction of stenosis to 0% residual. The distal right coronary artery has multiple stenoses of 50 to 60%, which were not intervened on. Cardiac cath of 11-11-15 showed well preserved global left ventricular systolic function and ejection fraction of 55 to 60%. Elevated left ventricular end- diastolic pressure which was measured at approximately 20 mmHg. No significant mitral regurgitation. ABIs on 01/13/16 at [place], [place]: 1.1 on both sides Echocardiogram of 09/14/17 (Dr Costello): LVEF 55-65%, dilated LA, suboptimal study Chronic bilat leg swelling, likely due to venous insuff, no evidence of DVT on on venous duplex of 09/13/17 Hypertension Asthma - follows with Dr. 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 Paris and Dr. Cadet Minimal carotid dz on u/s of November 2015 Plan: * Complex management due to multiple comorbidities noted above * Treat ac on chr diastolic CHF with diuretics * Acute on chronic renal insufficiency - worsening Cr likely d/t aggressive diuretics - reduce dose * Replenish K * Monitor lab closely * Pneumonia management by Medical Services * Continue home medication regimen including ASA, BB, Diltiazem, Aldactone, Metolazone, and statin * Deemed not a suitable candidate for OAC d/t reasons noted above, therefore, will continue ASA * Further recs will be based on his hospital course * I spoke with him and answered questions CATY PENALOZA MD FACP FAC CCDS Jul 18, 2018 13:35
[2018-07-18] MEDS: BISACODYL 10 MG SUPP (DULCOLAX) PR SCH ×2 (13:56→21:17)
[2018-07-18] MEDS ORDERED: inSUlin (REGULAR) HUMAN 1 UNIT/0.01 ML (CHARGE PER UNIT) SC SCH (16:00)
[2018-07-18] MEDS: inSUlin (REGULAR) HUMAN 1 UNIT/0.01 ML (CHARGE PER UNIT) SC SCH (16:32)
[2018-07-18] MEDS: MONTELUKAST 10 MG (SINGULAIR) TAB PO SCH (21:17)
[2018-07-18] MEDS: FLUTICASONE NASAL SPRAY (FLONASE) 16 GM BTL NS SCH (21:23)
[2018-07-19] MEDS: PIPERACILLIN SODIUM/TAZOBACTAM 4.5 GM in NS (IVPB) 100 ML IV SCH ×2 (02:08→10:06)
[2018-07-19] MEDS: RT-ALBUTEROL SULF 2.5 MG/3 ML PRE-MIX VIAL INH SCH ×3 (02:59→10:40)
[2018-07-19 04:00] VITALS: BP 150/70
[2018-07-19 06:04] LABS: BASOPHILS % (AUTO) 0 % (0-10); EOSINOPHILS % (AUTO) 0 % (0-10); HEMATOCRIT 32 % (40-54); HEMOGLOBIN 10.3 G/DL (13.3-17.7); LYMPHOCYTES # (AUTO) 1.1 X 10^3 (1.0-4.0); LYMPHOCYTES % (AUTO) 7 % (12-44); MEAN CORPUSCULAR HEMOGLOBIN 28 PG (25-34); MEAN CORPUSCULAR HGB CONC 32 G/DL (32-36); MEAN CORPUSCULAR VOLUME 89 FL (80-99); MEAN PLATELET VOLUME 10.6 FL (7.4-10.4); MONOCYTES # (AUTO) 1.5 X 10^3 (0.0-1.0); MONOCYTES % (AUTO) 10 % (0-12); NEUTROPHILS # (AUTO) 12.4 X 10^3 (1.8-7.8); NEUTROPHILS % (AUTO) 83 % (42-75); PLATELET COUNT 230 10^3/uL (130-400); RED BLOOD COUNT 3.65 10^6/uL (4.35-5.85); RED CELL DISTRIBUTION WIDTH 14.7 % (10.0-14.5); WHITE BLOOD COUNT 14.9 10^3/uL (4.3-11.0)
[2018-07-19 06:20] LABS: ALBUMIN 4.3 GM/DL (3.2-4.5); BILIRUBIN,TOTAL 0.5 MG/DL (0.1-1.0); CALCIUM 9.3 MG/DL (8.5-10.1); CREATININE SERUM 1.71 MG/DL (0.60-1.30); POTASSIUM 3.7 MMOL/L (3.6-5.0)
[2018-07-19] MEDS: inSUlin (REGULAR) HUMAN 1 UNIT/0.01 ML (CHARGE PER UNIT) SC SCH ×2 (06:37→12:31)
[2018-07-19] MEDS: KCL 10 MEQ TAB (MICRO K) PO SCH (06:38)
[2018-07-19] MEDS: LEVOTHYROXINE 25 MCG (LEVOTHROID) TAB PO SCH (06:38)
[2018-07-19] MEDS: METOLAZONE 5 MG (ZAROXOLYN) TAB PO SCH (06:38)
[2018-07-19] MEDS ORDERED: FUROSEMIDE 40 MG/4 ML INJ (LASIX) IVP SCH (07:00)
[2018-07-19] MEDS: UMECLIDINIUM BROMIDE (INCRUSE ELLIPTA) 7'S IH SCH (07:02)
[2018-07-19] MEDS: RT-ADVAIR HFA 115/21 MCG PER PUFF IH SCH (07:02)
[2018-07-19 08:00] VITALS: BP 142/77
[2018-07-19] MEDS: LACTULOSE SYRUP 10GM/15ML (ENULOSE) 30ML UDC PO SCH (10:04)
[2018-07-19] MEDS: ASPIRIN 81 MG CHEW (CHILDREN'S ASA) PO SCH (10:05)
[2018-07-19] MEDS: inSUlin DETERMIR 1 UNIT/0.01 ML (LEVEMIR) CHARGE PER UNIT SQ SCH (10:05)
[2018-07-19] MEDS: SENNA W/DOCUSATE (SENOKOT S) TABLET PO SCH (10:05)
[2018-07-19] MEDS: meTOproloL SUCCINATE 50 MG (TOPROL XL) TAB PO SCH (10:05)
[2018-07-19] MEDS: LORATADINE (CLARITIN) 10 MG TAB PO SCH (10:06)
[2018-07-19] MEDS: FINASTERIDE (PROSCAR) 5 MG TAB PO SCH (10:06)
[2018-07-19] MEDS: DILTIAZEM 240 MG (CARDIZEM CD) CAP PO SCH (10:06)
[2018-07-19] MEDS: TAMSULOSIN 0.4 MG (FLOMAX) CAP PO SCH (10:06)
[2018-07-19] MEDS: ROSUVASTATIN 5 MG (CRESTOR) TABLET PO SCH (10:06)
[2018-07-19] MEDS: BISACODYL 10 MG SUPP (DULCOLAX) PR SCH (10:07)
[2018-07-19] MEDS ORDERED: PRED10TA22 PO (11:03)
[2018-07-19] MEDS ORDERED: CEFD300C3 PO (11:03)
--- NOTE | 2018-07-19 11:05 | Discharge Summary-Hospitalist ---
Diagnosis/Chief Complaint Date of Admission Jul 15, 2018 at 08:48 Date of Discharge Discharge Date: Jul 19, 2018 Admission Diagnosis Pneumonia with lactic acidosis Discharge Diagnosis (1) Acute exacerbation of chronic bronchitis Status: Acute (2) CAD (coronary artery disease) Status: Chronic (3) Diabetes mellitus Status: Chronic (4) Hypokalemia Status: Acute (5) Diabetic foot ulcers Status: Acute (6) JOSE MANUEL (obstructive sleep apnea) Status: Chronic (7) Chronic atrial fibrillation Status: Chronic (8) Obesity hypoventilation syndrome Status: Chronic Discharge Summary Discharge Physical Exam Allergies: Coded Allergies: Msexips-Jow-Mlr Reductase Inhibitor (Verified Allergy, Unknown, 10/15/17) codeine (Verified Allergy, Unknown, Takes Lortab at home, 05/28/18) fish oil (Verified Allergy, Unknown, 10/15/17) Vitals & I&Os Vital Signs Date Time Temp Pulse Resp B/P (MAP) Pulse Ox O2 Delivery O2 Flow Rate FiO2 07/19/18 16:03 81 20 146/73 93 NIV Bilevel 3.00 07/19/18 12:00 97.1 General Appearance: No Apparent Distress, WD/WN, Chronically ill, Obese Respiratory: Chest Non Tender, Normal Breath Sounds, No Accessory Muscle Use, No Respiratory Distress, Wheezing (Subtle) Cardiovascular: No Edema, No Gallop, No JVD, No Murmur, Normal Peripheral Pulses, Irregularly Irregular Neurologic/Psychiatric: Alert, Oriented x3, No Motor/Sensory Deficits, Normal Mood/Affect Hospital Course Hospital course: Patient had a lengthy hospital course he was admitted for severe dyspnea with wheezing and acute on chronic respiratory failure. No evidence of infiltrate on chest x-ray so acute on chronic bronchitis diagnosed placed on IV steroids which resulted in severe hyperglycemia and required insulin drip for non-DKA. Antibiotics were given empirically broad-spectrum with Zosyn with good results. Bowel function returned back to normal home medication was given in transition from NovoLog to regular insulin with modest improvement in severe hyperglycemia. Patient is severely noncompliant with diet and other recommendations and his prognosis remains guarded and poor with multiple hospitalizations predicted in the future. Patient improved enough to be discharged in improved condition although fair prognosis overall and I will see him in the clinic with close follow-up. Labs (last 24 hrs) Microbiology 07/15/18 Blood Culture - Final, Complete No growth Patient resulted labs reviewed. Pending Labs Imaging: Reviewed Imaging Report Discussion & Recommendations Discharge Planning: <30 minutes discharge planning Discharge Home Medications: Active Scripts Active Prednisone 10 Mg Tab.ds.pk 20 Mg PO DAILY Take 6 tabs(60mg)daily,decrease by 1 tab(10MG)daily. Cefdinir 300 Mg Capsule 300 Mg PO BID Reported Aspirin 81 Mg Tab.chew 81 Mg PO DAILY Furosemide 80 Mg Tablet 80 Mg PO 1300 Fluticasone Propionate 16 Gm [place].susp 2 Sprays NS HS Incruse Ellipta (Umeclidinium [place]) 62.5 Mcg Blst.w.dev 1 Puff INH DAILY Nexium 24Hr (Esomeprazole Magnesium) 20 Mg Capsule.dr 20 Mg PO HS Proair Hfa (Albuterol Sulfate) 1 Puff Puff 2 Puff INH Q4H PRN Sulfamethoxazole-Tmp Ds Tablet (Sulfamethoxazole/Trimethoprim) 1 Each Tablet 0.5 Tab PO HS TAKES 1/2 TABLET Ex-Lax (Sennosides) 15 Mg Tablet 1 Tab PO DAILY PRN Colace (Docusate Sodium) 100 Mg Capsule 500 Mg PO DAILY PRN Lactulose 10 Gm/15 Ml Solution 2 Tbs PO Q4H PRN Lidocaine 1 Each Adh..patch 1 Patch TP DAILY PRN 5% Finasteride 5 Mg Tablet 5 Mg PO DAILY Levemir Flextouch (Insulin Detemir) 100 Unit/1 Ml Insuln.pen 40 Units SC BID Metolazone 5 Mg Tablet 5 Mg PO 1300 Spironolactone 25 Mg Tablet 50 Mg PO 1300 LAST FILLED #180 03-11-18 TAKES 2 (25MG) TABLETS Meloxicam 15 Mg Tablet 15 Mg PO DAILY Humalog Kwikpen (Insulin Lispro) 100 Unit/1 Ml Insuln.pen 50 Units SQ ACHS Potassium Chloride 10 Meq Tablet.er 20 Meq PO BID TAKES 2 (10MEQ) TABLETS Tamsulosin HCl 0.4 Mg Cap.er.24h 0.4 Mg PO DAILY Montelukast Sodium 10 Mg Tablet 10 Mg PO HS Rosuvastatin Calcium 5 Mg Tablet 5 Mg PO DAILY Dilt-Xr (Diltiazem HCl) 240 Mg Cap.er.deg 240 Mg PO DAILY Advair 500-50 Diskus (Fluticasone/Salmeterol) 1 Each Blst.w.dev 1 Puff IH BID Metoprolol Succinate 50 Mg Tab.er.24h 50 Mg PO DAILY Lortab 7.5 Mg Tablet (Acetaminophen/Hydrocodone Bitart) 1 Each Tablet 1 Tab PO Q6H PRN Albuterol Sulfate 2.5 Mg/3 Ml Vial.neb 2.5 Mg NEB Q4H PRN Levothyroxine Sodium 25 Mcg Tablet 25 Mcg PO DAILY Zyrtec-D Tablet (Cetirizine HCl/Pseudoephedrine) 1 Each Tab.er.12h 1 Tab PO DAILY Instructions to patient/family Please see electronic discharge instructions given to patient. Clinical Quality Measures DVT/VTE Risk/Contraindication: Risk Factor Score Per Nursin RFS Level Per Nursing on Admit: 4+=Very High Contraindications-Pharm: Other *list below* Other: bleeding Problem Qualifiers (1) Diabetes mellitus: Diabetes mellitus type: type 2 Diabetes mellitus halfway insulin use: with halfway use Diabetes mellitus complication status: with circulatory complication Diabetes mellitus complication detail: with other circulatory complications Qualified Codes: E11.59 - Type 2 diabetes mellitus with other circulatory complications; Z79.4 - correction (current) use of insulin CHAO PAT DO Jul 19, 2018 11:05
[2018-07-19 12:00] VITALS: BP 146/73
[2018-07-19] MEDS: SPIRONOLACTONE 25 MG (ALDACTONE) TAB PO SCH (13:53)
--- NOTE | 2018-07-19 14:36 | Progress Note-Cardiology ---
Cardiology SOAP Progress Note Subjective: Shortness of breath somewhat better No cp or syncope or palp Objective: I&O/Vital Signs 07/19/18 07/19/18 07/19/18 07/19/18 03:01 04:00 07:00 07:02 Temp 97.8 Pulse 69 80 Resp 22 B/P (MAP) 150/70 (96) Pulse Ox 94 99 94 O2 Delivery Nasal Cannula Nasal Cannula Nasal Cannula O2 Flow Rate 3.00 3.00 3.00 07/19/18 07/19/18 07/19/18 07/19/18 07:03 08:00 10:40 12:00 Temp 98.0 97.1 Pulse 94 81 Resp 20 20 B/P (MAP) 142/77 (98) 146/73 (97) Pulse Ox 96 95 93 O2 Delivery NIV Bilevel Nasal Cannula Nasal Cannula NIV Bilevel O2 Flow Rate 3.00 3.00 07/19/18 00:00 Intake Total 2340 ml Output Total 3502 ml Balance -1162 ml Weight (Pounds): 385 Weight (Ounces): 0.0 Weight (Calculated Kilograms): 174.596730 Constitutional: AAO x 3, well-developed, well-nourished Respiratory: No accessory muscle use, No respiratory distress; chest expansion is symmetric, chest is bilaterally symmetric, other (diminished; fair air entry) Cardiovascular: irregularly irregular, S1 and S2, systolic murmur Gastrointestional: No tender; soft, round, audible bowel sounds Extremities: significant edema (bilat LE pitting edema) Neurologic/Psychiatric: grossly intact Skin: other (multiple areas of excoriation to his torso, hips; dressing to left great toe (not removed)) Results/Procedures: Labs Laboratory Tests 07/18/18 15:57: Glucometer 433*H 07/18/18 20:40: Glucometer 435*H 07/19/18 05:40: White Blood Count 14.9H, Red Blood Count 3.65L, Hemoglobin 10.3L, Hematocrit 32L , Mean Corpuscular Volume 89, Mean Corpuscular Hemoglobin 28, Mean Corpuscular Hemoglobin Concent 32, Red Cell Distribution Width 14.7H, Platelet Count 230, Mean Platelet Volume 10.6H, Neutrophils (%) (Auto) 83H, Lymphocytes (%) (Auto) 7L, Monocytes (%) (Auto) 10, Eosinophils (%) (Auto) 0, Basophils (%) (Auto) 0, Neutrophils # (Auto) 12.4H, Lymphocytes # (Auto) 1.1, Monocytes # (Auto) 1.5H, Eosinophils # (Auto) 0.0, Basophils # (Auto) 0.0, Sodium Level 135, Potassium Level 3.7, Chloride Level 97L, Carbon Dioxide Level 23, Anion Gap 15H, Blood Urea Nitrogen 49H, Creatinine 1.71H, Estimat Glomerular Filtration Rate 40, BUN/ Creatinine Ratio 29, Glucose Level 382H, Calcium Level 9.3, Corrected Calcium 9.1, Total Bilirubin 0.5, Aspartate Amino Transf (AST/SGOT) 21, Alanine Aminotransferase (ALT/SGPT) 27, Alkaline Phosphatase 79, Total Protein 8.0, Albumin 4.3 07/19/18 06:25: Glucometer 338H 07/19/18 11:16: Glucometer 479*H Microbiology 07/15/18 Blood Culture - Preliminary, Resulted No growth Laboratory Tests 07/18/18 04:50 07/19/18 05:40 A/P: Assessment: Dyspnea likely multifactorial - ac on chronic diastolic CHF, ac exacerbation of COPD, pneumonia and obesity-hypoventilation syndrome (Several hospitalizations in 2018) Obesity (BMI approx 60) with obesity-hypoventilation Acute on Chronic diastolic CHF - clinically improving Persistent a-fib first diagnosed in early February 2016, rate controlled Anemia of undetermined etiology; ongoing occult bleed suspected - management by Dr. Hutton of medical services. Dr Hutton has not allowed reinitiation of OAC - ASA tx only CAD with a h/o CABG in 2006 at [facility] in [place], [place]. On cardiac cath of 11-11-15: Multivessel coronary disease including multiple more than 90% stenosis of the proximal and mid left anterior descending artery. The mid to distal left anterior descending artery is protected with a widely patent left internal mammary artery graft. The left circumflex artery had 99% ostial/ proximal stenosis to which successful stenting was carried out with Promus Premier 3.5 x 20 mm stent with a reduction of stenosis to 0% residual. The distal left circumflex and its obtuse marginal branches have diffuse moderate to moderately severe disease which were not intervened on. The right coronary artery is dominant and had 90% proximal stenosis to which successful stenting was carried out with Promus Premier 2.75 x 28 mm stent with reduction of stenosis to 0% residual. The distal right coronary artery has multiple stenoses of 50 to 60%, which were not intervened on. Cardiac cath of 11-11-15 showed well preserved global left ventricular systolic function and ejection fraction of 55 to 60%. Elevated left ventricular end- diastolic pressure which was measured at approximately 20 mmHg. No significant mitral regurgitation. ABIs on 01/13/16 at [place], [place]: 1.1 on both sides Echocardiogram of 09/14/17 (Dr Costello): LVEF 55-65%, dilated LA, suboptimal study Chronic bilat leg swelling, likely due to venous insuff, no evidence of DVT on on venous duplex of 09/13/17 Hypertension Asthma - follows with Dr. 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 Paris and Dr. Cadet Minimal carotid dz on u/s of November 2015 Plan: * Complex management due to multiple comorbidities noted above * Treat ac on chr diastolic CHF with diuretics * Monitor lab closely * Pneumonia management by Medical Services * Deemed not a suitable candidate for OAC d/t reasons noted above, continue CATY AUGUSTIN MD FACP FAC CCDS Jul 19, 2018 14:36
[2018-07-19 16:03] VITALS: BP 146/73
== END 2018-07-19 16:03 | disposition home or self-care (01) | DRG 190 ==
LOC: EDUNIT# 07:04 → ER 07:05 → 4TH 08:48
PROVIDERS: ADMIT Family Medicine; ATTEND Family Medicine
PROC: 02HV33Z Insertion of Infusion Device into Superior Vena Cava, Percutaneous Approach (ICD-10-PCS; principal; 2018-07-16)
DX: J44.0 Chronic obstructive pulmonary disease with (acute) lower respiratory infection (principal); J20.9 Acute bronchitis, unspecified; J44.1 Chronic obstructive pulmonary disease with (acute) exacerbation; I13.0 Hypertensive heart and chronic kidney disease with heart failure and stage 1 through stage 4 chronic kidney disease, or unspecified chronic kidney disease; I50.33 Acute on chronic diastolic (congestive) heart failure; N18.3 Chronic kidney disease, stage 3 (moderate); J96.20 Acute and chronic respiratory failure, unspecified whether with hypoxia or hypercapnia; E66.2 Morbid (severe) obesity with alveolar hypoventilation; Z68.43 Body mass index [BMI] 50.0-59.9, adult; E87.2 Acidosis; I25.10 Atherosclerotic heart disease of native coronary artery without angina pectoris; E03.9 Hypothyroidism, unspecified; E11.65 Type 2 diabetes mellitus with hyperglycemia; E11.40 Type 2 diabetes mellitus with diabetic neuropathy, unspecified; E78.00 Pure hypercholesterolemia, unspecified; I48.2 Chronic atrial fibrillation; M19.91 Primary osteoarthritis, unspecified site; K59.09 Other constipation; S31.825A Open bite of left buttock, initial encounter; S31.815A Open bite of right buttock, initial encounter; D50.0 Iron deficiency anemia secondary to blood loss (chronic); I87.2 Venous insufficiency (chronic) (peripheral); E11.21 Type 2 diabetes mellitus with diabetic nephropathy; E87.6 Hypokalemia; I25.2 Old myocardial infarction; Z79.4 Long term (current) use of insulin; Z95.1 Presence of aortocoronary bypass graft; Z95.5 Presence of coronary angioplasty implant and graft; Z87.891 Personal history of nicotine dependence; Z91.11 Patient's noncompliance with dietary regimen
CPT/HCPCS: 36415; 71045; 76937; 80053; 82962; 83605; 83735; 83880; 84484; 85007; 85025; 85027; 85379; 87040; 93005; 94640; 94660; 94760; 96372; 96374; 96375

== ENCOUNTER 2018-08-15 17:13 | Inpatient (IN) | payer MEDICARE, OTHER | END 2018-08-21 13:53 | disposition designated cancer center or children's hospital (05) | LOC: ICU 17:13 → 4TH 08-17 11:47 | DX: I13.0 Hypertensive heart and chronic kidney disease with heart failure and stage 1 through stage 4 chronic kidney disease, or unspecified chronic kidney disease (principal); I50.33 Acute on chronic diastolic (congestive) heart failure; N18.3 Chronic kidney disease, stage 3 (moderate); J44.1 Chronic obstructive pulmonary disease with (acute) exacerbation; N28.9 Disorder of kidney and ureter, unspecified; I27.81 Cor pulmonale (chronic); I48.2 Chronic atrial fibrillation; E11.21 Type 2 diabetes mellitus with diabetic nephropathy; I87.2 Venous insufficiency (chronic) (peripheral); I25.2 Old myocardial infarction; E66.01 Morbid (severe) obesity due to excess calories; G47.33 Obstructive sleep apnea (adult) (pediatric); E11.65 Type 2 diabetes mellitus with hyperglycemia; I25.10 Atherosclerotic heart disease of native coronary artery without angina pectoris; E78.00 Pure hypercholesterolemia, unspecified; E11.40 Type 2 diabetes mellitus with diabetic neuropathy, unspecified; F41.9 Anxiety disorder, unspecified; E03.9 Hypothyroidism, unspecified; M19.91 Primary osteoarthritis, unspecified site; K59.09 Other constipation; M54.9 Dorsalgia, unspecified; D64.9 Anemia, unspecified; T50.2X5A Adverse effect of carbonic-anhydrase inhibitors, benzothiadiazides and other diuretics, initial encounter; Z79.4 Long term (current) use of insulin; Z95.1 Presence of aortocoronary bypass graft; Z95.5 Presence of coronary angioplasty implant and graft; Z87.891 Personal history of nicotine dependence ==

== ENCOUNTER 2018-09-11 18:10 | Emergency (ER) | payer OTHER, MEDICARE ==
[~2018-09-11] VITALS: Ht 175.3 cm; Wt 188.7 kg
[~2018-09-11 18:10] MED LIST changes: +FLUC100T6 PO; +LOSA100T57 PO; -LOSA100T8 PO; +METH40VI2 IV; +PIPE4.5F IV
[2018-09-11 18:22] VITALS: BP 101/81
--- NOTE | 2018-09-11 18:27 | ED Respiratory ---
General Chief Complaint: Respiratory Problems Stated Complaint: SOB Source: patient, EMS Exam Limitations: no limitations History of Present Illness Date Seen by Provider: Sep 11, 2018 Time Seen by Provider: 18:17 Initial Comments Patient presents to ER by EMS with chief complaint of shortness of air. EMS found him on his 2 L nasal cannula in the low 90s. They switched him over to CPAP which helped his respiratory distress immensely. On any exertion the patient's saturations would go down to the mid 80s. He has been to [place], [place] multiple times for for his heart failure, asthma, insulin-dependent diabetes. 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 They've been making lots of changes to his diuretics including Bumex. Currently he is on 40 Lasix in the morning and 80 in the afternoon +50 of spironolactone. He says for the past 3 days she's not been output any urine out. His weight went from 387 on Sunday, 3 days ago to the 416 today. He has orthopnea and increased swelling in his legs. He is denying any chest pain or acute distress. There is a chronic history of atrial fibrillation. He is also on metolazone and Bumex 5 and 2 mg respectively. He is followed by Dr. Shook and Dr. Cadet at [facility]. History of CABG and 2 stents. Blood sugar is 165 per EMS. He is not on a blood thinner for his atrial fibrillation since May 2018 since he had a lot of internal bleeding and had to receive several units of blood. Allergies and Home Medications Allergies Coded Allergies: Hqnvoor-Ome-Szm Reductase Inhibitor (Verified Allergy, Unknown, 10/15/17) codeine (Verified Allergy, Unknown, Takes Lortab at home, 05/28/18) fish oil (Verified Allergy, Unknown, 10/15/17) Home Medications Albuterol Sulfate 2.5 Mg/3 Ml Vial.neb, 2.5 MG NEB Q4H PRN for SHORTNESS OF BREATH, (Reported) Albuterol Sulfate 1 Puff Puff, 2 PUFF INH Q4H PRN for SHORTNESS OF BREATH, ( Reported) Aspirin 81 Mg Tab.chew, 81 MG PO DAILY, (Reported) Cetirizine HCl/Pseudoephedrine 1 Each Tab.er.12h, 1 TAB PO DAILY, (Reported) Diltiazem HCl 240 Mg Cap.er.deg, 240 MG PO DAILY, (Reported) Docusate Sodium 100 Mg Capsule, 500 MG PO DAILY PRN for CONSTIPATION-1ST LINE, ( Reported) Esomeprazole Magnesium 20 Mg Capsule.dr, 20 MG PO HS, (Reported) Finasteride 5 Mg Tablet, 5 MG PO DAILY, (Reported) Fluconazole 100 Mg Tablet, 100 MG PO DAILY Prescribed by: CHAO PAT on 08/21/18950 Fluticasone Propionate 16 Gm [place].susp, 2 SPRAYS NS HS, (Reported) Fluticasone/Salmeterol 1 Each Blst.w.dev, 1 PUFF IH BID, (Reported) Furosemide 80 Mg Tablet, 80 MG PO 1300, (Reported) Hydrocodone Bit/Acetaminophen 1 Each Tablet, 1 TAB PO Q6H PRN for PAIN-MODERATE, (Reported) Insulin Detemir 100 Unit/1 Ml Insuln.pen, 40 UNITS SC BID, (Reported) Insulin Lispro 100 Unit/1 Ml Insuln.pen, 50 UNITS SQ ACHS, (Reported) Lactulose 10 Gm/15 Ml Solution, 2 TBS PO Q4H PRN for CONSTIPATION-3RD LINE, ( Reported) Levothyroxine Sodium 25 Mcg Tablet, 25 MCG PO DAILY, (Reported) Lidocaine 1 Each Adh..patch, 1 PATCH TP DAILY PRN for KNEE/BACK PAIN, (Reported) 5% Meloxicam 15 Mg Tablet, 15 MG PO DAILY, (Reported) LAST FILLED #30 --18 Methylprednisolone Sod Succ/Pf 40 Mg/1 Ml Vial, 40 MG IV Q12H Prescribed by: CHAO PAT on 08/21/18951 Metolazone 5 Mg Tablet, 5 MG PO 1300, (Reported) Metoprolol Succinate 50 Mg Tab.er.24h, 50 MG PO DAILY, (Reported) Montelukast Sodium 10 Mg Tablet, 10 MG PO HS, (Reported) Aatusgujmtah-Nhvz-Rdqyfcwe,Iso 4.5 Gm/100 Ml Froz.piggy, 4.5 GM IV Q8H Prescribed by: CHAO PAT on 08/21/18951 Potassium Chloride 10 Meq Tablet.er, 20 MEQ PO BID, (Reported) TAKES 2 (10MEQ) TABLETS Rosuvastatin Calcium 5 Mg Tablet, 5 MG PO DAILY, (Reported) Sennosides 15 Mg Tablet, 1 TAB PO DAILY PRN for CONSTIPATION-5TH LINE, (Reported ) Spironolactone 25 Mg Tablet, 50 MG PO 1300, (Reported) TAKES 2 (25MG) TABLETS Sulfamethoxazole/Trimethoprim 1 Each Tablet, 0.5 TAB PO HS, (Reported) TAKES 1/2 TABLET Tamsulosin HCl 0.4 Mg Cap.er.24h, 0.4 MG PO DAILY, (Reported) Umeclidinium Bradford 62.5 Mcg Blst.w.dev, 1 PUFF INH DAILY, (Reported) Patient Home Medication List Home Medication List Reviewed: Yes Review of Systems Review of Systems Constitutional: No chills, No diaphoresis, No fever, No malaise EENTM: No ear discharge, No hearing loss Respiratory: No cough; short of breath, wheezing Cardiovascular: No chest pain, No edema; Hx of Intervention; No palpitations; vascular heart diseas Gastrointestinal: No abdominal pain, No constipation, No diarrhea, No nausea Genitourinary: No discharge, No dysuria Musculoskeletal: No back pain, No joint pain Skin: No pruritus, No rash Psychiatric/Neurological: Denies Headache, Denies Numbness Past Sednyvs-Bpmsqe-Btcswd Hx Patient Social History Alcohol Use: Denies Use Alcohol Beverage of Choice: Whiskey Recreational Drug Use: No Smoking Status: Former Smoker Type Used: Cigarettes Former Smoker, Quit: Aug 13, 1996 2nd Hand Smoke Exposure: No Recent Foreign Travel: No Contact w/Someone Who Travel: No Recent Hopitalizations: No Immunizations Up To Date Tetanus Booster (TDap): Less than 5yrs PED Vaccines UTD: No Date of Pneumonia Vaccine: May 13, 2017 Date of Influenza Vaccine: May 22, 2018 Seasonal Allergies Seasonal Allergies: Yes Past Medical History Surgeries: Yes Adenoidectomy, Cardiac, CABG, Coronary Stent, Gallbladder, Tonsillectomy, Transurethral Resection, Vasectomy Respiratory: Yes Asthma, Pneumonia, COPD Currently Using CPAP: Yes Currently Using BIPAP: No Cardiac: Yes Atrial Fibrillation, Chronic Edema/Swelling, Coronary Artery Disease, Heart Attack, High Cholesterol, Hypertension Neurological: No Neuropathy Reproductive Disorders: No Sexually Transmitted Disease: No HIV/AIDS: No Genitourinary: Yes Prostate Problems, Bladder Infection, UTI-Chronic Gastrointestinal: Yes Gastrointestinal Bleed, Chronic Constipation Musculoskeletal: Yes Arthritis, Chronic Back Pain Endocrine: Yes Diabetes, Insulin dep, Hypothyroidsim HEENT: Yes Cataract Loss of Vision: Denies Hearing Impairment: Denies Cancer: No Psychosocial: Yes Anxiety Integumentary: Yes Pruritis Blood Disorders: No Adverse Reaction/Blood Tranf: No Family Medical History Cancer 03 FATHER Congestive heart failure 03 MOTHER Family history: Arthritis 03 MOTHER Family history: Asthma 03 MOTHER Family history: Cardiovascular disease 03 MOTHER Family history: Diabetes mellitus 09 BROTHER Family history: Gastrointestinal disease 03 FATHER History of drug abuse 09 BROTHER Asthma, Heart Disease, Hypertension Physical Exam Vital Signs - First Documented 09/11/18 09/11/18 18:10 18:22 Temp 98.0 Pulse 53 Resp 20 B/P (MAP) 101/81 (88) Pulse Ox 94 O2 Delivery NIV/CPAP O2 Flow Rate 50.00 Capillary Refill : Height: 5'8.00" Weight: 385lbs. 0.0oz. 174.643870cc; 58.5 BMI Method:Stated General Appearance: mild distress, obese Eyes: Bilateral Eye Normal Inspection, Bilateral Eye PERRL, Bilateral Eye EOMI HEENT: PERRL/EOMI, normal ENT inspection, TMs normal, pharynx normal Neck: non-tender, full range of motion, normal inspection Respiratory: chest non-tender, decreased breath sounds, wheezing, expiration Cardiovascular: normal peripheral pulses, regular rate, rhythm, other ( bilateral lower extremities 2+ pitting edema) Gastrointestinal: normal bowel sounds, non tender, soft Extremities: normal capillary refill, pedal edema (2+ bilateral lower extremity ) Neurologic/Psychiatric: alert, normal mood/affect, oriented x 3 Skin: normal color, warm/dry Procedures/Interventions Lumen: triple Central Line Procedure: betadine prep (chlorhexidine prep), sterile drapes applied, sterile dressing applied Position: internal jugular (R) Anesthesia: Lidocaine Volume Anesthetic (ccs): 3 Complications: none Post Position: sutured, good blood return, position confirmed w/ CXR Patient was explained the risks, benefits and alternatives and he consented verbally. We then looked at the right IJ on ultrasound it was a good compressible full IJ. Easily accessible. We then draped patient on usual sterile fashion using chlorhexidine preps to prep the skin. We put on gowns, gloves and masks and headgear. We then draped the patient on the usual sterile fashion. We flushed the triple-lumen catheter was sterile saline putting claves on all but the brown central line. We then used ultrasound guidance to follow the tip of the introducer needle into the skin through the area with already numbed with lidocaine and guided into the right internal jugular. We easily passed a guidewire without causing ectopy on the monitor. Then made a small lindsay in the skin using 11 blade and removed the needle. Then passed the dilator and removed it. We then passed the central lumen of the triple-lumen catheter and placed it at about 17 cm. We then removed the guidewire and flushed central lumen. The clavus passed on the brown central lumen. We then put the bile patch on stitched the central line in place in 3 different points and placed a sterile dressing. Patient tolerated the procedure well. Chest x-ray was obtained demonstrating good position on the right side with the tip ending just above the right atrium in the superior vena cava. Suture Size: 4-0 Progress/Results/Core Measures Suspected Sepsis SIRS Temperature: Pulse: Respiratory Rate: Laboratory Tests 09/11/18 18:10: White Blood Count 8.9 Blood Pressure / Mean: Laboratory Tests 09/11/18 18:10: Creatinine 3.48H, Platelet Count 343, Total Bilirubin 0.5 Results/Orders Lab Results Laboratory Tests Test 09/11/18 18:10 09/11/18 18:18 09/11/18 18:35 Range/Units White Blood Count 8.9 4.3-11.0 10^3/uL Red Blood Count 3.13 L 4.35-5.85 10^6/uL Hemoglobin 8.6 L 13.3-17.7 G/DL Hematocrit 27 L 40-54 % Mean Corpuscular Volume 85 80-99 FL Mean Corpuscular Hemoglobin 27 25-34 PG Mean Corpuscular Hemoglobin Concent 33 32-36 G/DL Red Cell Distribution Width 17.1 H 10.0-14.5 % Platelet Count 343 130-400 10^3/uL Mean Platelet Volume 9.3 7.4-10.4 FL Neutrophils (%) (Auto) 66 42-75 % Lymphocytes (%) (Auto) 15 12-44 % Monocytes (%) (Auto) 12 0-12 % Eosinophils (%) (Auto) 7 0-10 % Basophils (%) (Auto) 0 0-10 % Neutrophils # (Auto) 5.9 1.8-7.8 X 10^3 Lymphocytes # (Auto) 1.3 1.0-4.0 X 10^3 Monocytes # (Auto) 1.1 H 0.0-1.0 X 10^3 Eosinophils # (Auto) 0.6 H 0.0-0.3 10^3/uL Basophils # (Auto) 0.0 0.0-0.1 10^3/uL Sodium Level 130 L 135-145 MMOL/L Potassium Level 5.7 H 3.6-5.0 MMOL/L Chloride Level 96 L 98-107 MMOL/L Carbon Dioxide Level 22 21-32 MMOL/L Anion Gap 12 5-14 MMOL/L Blood Urea Nitrogen 51 H 7-18 MG/DL Creatinine 3.48 H 0.60-1.30 MG/DL Estimat Glomerular Filtration Rate 18 BUN/Creatinine Ratio 15 Glucose Level 140 H 70-105 MG/DL Calcium Level 8.8 8.5-10.1 MG/DL Corrected Calcium 9.0 8.5-10.1 MG/DL Magnesium Level 2.1 1.8-2.4 MG/DL Total Bilirubin 0.5 0.1-1.0 MG/DL Aspartate Amino Transf (AST/SGOT) 18 5-34 U/L Alanine Aminotransferase (ALT/SGPT) 18 0-55 U/L Alkaline Phosphatase 82 40-136 U/L C-Reactive Protein High Sensitivity 2.28 H 0.00-0.50 MG/DL B-Type Natriuretic Peptide 239.7 H <100.0 PG/ML Total Protein 7.3 6.4-8.2 GM/DL Albumin 3.7 3.2-4.5 GM/DL D-Dimer 1.05 H 0.00-0.49 UG/ML Blood Gas Puncture Site LT RAD Blood Gas Patient Temperature 99.0 Arterial Blood pH 7.39 7.37-7.43 Arterial Blood Partial Pressure CO2 34 L 35-45 MMHG Arterial Blood Partial Pressure O2 201 H 79-93 MMHG Arterial Blood HCO3 20 L 23-27 MMOL/L Arterial Blood Total CO2 21.1 21.0-31.0 MMOL/L Arterial Blood Oxygen Saturation 100 94-100 % Arterial Blood Base Excess -4.0 L -2.5-2.5 MMOL/L Michael Test YES-POS Blood Gas Ventilator Setting NO Blood Gas Inspired Oxygen 50% My Orders Orders - WIL POTTS Arterial Blood Gas (09/11/18 18:22) BNP (09/11/18 18:22) Cbc With Automated Diff (09/11/18 18:22) Comprehensive Metabolic Panel (09/11/18 18:22) Hs C Reactive Protein (09/11/18 18:22) Magnesium (09/11/18 18:22) Ua Culture If Indicated (09/11/18 18:22) Chest 1 View, Ap/Pa Only (09/11/18 18:22) Albuterol/Ipra Inhalation Soln (Duoneb I (09/11/18 18:30) Ekg Tracing (09/11/18 18:22) O2 (09/11/18 18:22) Saline Lock/Iv-Start (09/11/18 18:22) Monitor-Rhythm Ecg Trace Only (09/11/18 18:22) Svn Small Volume Nebulizer (09/11/18 18:22) Furosemide Injection (Lasix Injection) (09/11/18 19:00) Norepinephrine (Levophed) (09/11/18 19:30) Fibrin Degradation Products (09/11/18 19:26) Chest 1 View, Ap/Pa Only (09/11/18 19:55) Cefazolin 2 Gm Iv Premixed (Ancef 2 Gm P (09/11/18 20:00) Heparin Drip 88524 Unit/500ml (Heparin (09/11/18 20:30) Heparin (Bolus Per Protocol) (Heparin (B (09/11/18 20:30) Medications Given in ED Current Medications Medications Dose Ordered Sig/Jt Route Start Time Stop Time Status Last Admin Dose Admin Cefazolin Sodium/ Dextrose 50 ml @ 140 mls/hr ONCE ONCE IV 09/11/18 20:00 09/11/18 20:21 DC 09/11/18 20:29 140 MLS/HR Furosemide 60 mg ONCE ONCE IVP 09/11/18 19:00 09/11/18 19:01 DC 09/11/18 20:02 60 MG Vital Signs/I&O 09/11/18 09/11/18 09/11/18 09/11/18 18:10 18:22 19:00 20:05 Temp 98.0 Pulse 53 56 48 50 Resp 20 26 12 18 B/P (MAP) 101/81 (88) 84/61 (69) Pulse Ox 94 100 98 100 O2 Delivery NIV/CPAP NIV CPAP O2 Flow Rate 50.00 50.00 50.00 Capillary Refill : Progress Note : Time: 18:32 Progress Note Labs included BNP, ABG, chest x-ray. Plan to give the 60-80 mg a 6. EKG and troponin. Obesity hypoventilation syndrome, COPD, acute diastolic CHF. Chronic permanent atrial fibrillation since 2015 rate controlled not on anticoagulants. Cardiac catheterization from October 2015 showed multivessel coronary disease with 90% stenosis of the proximal and mid left anterior descending artery. The mid to distal left anterior descending arteries protected with a widely patent left internal mammary artery graft. The left circumflex artery had 99% ostial proximal stenosis to which successful staining was carried out with promise per meter 3.5 x 20 mm stent with a reduction of stenosis to 0% residual. The distal left circumflex and its obtuse marginal branches have diffuse moderate to moderately severe disease were not intervened on. The right coronary artery is dominant and had 90% proximal stenosis to which successful staining was carried out with a promus Premier 2.75 x 28 mm stent with reduction of stenosis to 0% residual. The distal right coronary artery had multiple stenoses of 50-60% which were not intervened on. There is well preserved global left ventricular systolic function and ejection fraction of 55-60% and elevated left ventricular end diastolic diastolic pressure which was measured at approximately 20 mmHg. No significant mitral regurg. Echocardiogram from September 2017 showed an left ventricular ejection fraction of 55-60% with dilated left atrium suboptimal study. ECG Initial ECG Impression Date: Sep 11, 2018 Initial ECG Impression Time: 18:26 Initial ECG Rate: 50 Initial ECG Rhythm: A Fib/Flutter Initial ECG Intervals: Normal Initial ECG Impression: Atrial Fibrillation Initial ECG Comparisson: Unchanged Comment No ST changes. Atrial fibrillation without rapid ventricular response. Diagnostic Imaging Diagonstic Imaging: Xray Plain Films/CT/US/NM/MRI: chest (1v) Comments NAME: JENNIFER GARCIA REC#: [id number] PHYSICIAN: WIL POTTS MD CC: CIRILO OJEDA MD; WIL POTTS Page 1 of 1 RADIOLOGY REPORT [facility] [place] [place] CC: CIRILO OJEDA MD; WIL POTTS Page 1 of 1 RADIOLOGY REPORT NAME: JENNIFER GARCIA REC#: [id number] PT STATUS: REG ER : 1950 PHYSICIAN: WIL POTTS MD ADMIT DATE: 09/11/18/ER Signed Date of Exam: 09/11/18 CHEST 1 VIEW, AP/PA ONLY INDICATION: Shortness of breath Portable chest 6:50 PM There is cardiomegaly. There are postop changes from median sternotomy. Pulmonary vascularity is normal. Lungs are clear. There are no effusions or pneumothoraces. IMPRESSION: Cardiomegaly without evidence of pulmonary venous hypertension. Dictated by: Dictated on workstation # [id number] Dict: 09/11/181857 Trans: 09/11/181904 Interpreted by: CIRILO OJEDA MD Electronically signed by: CIRILO OJEDA MD 09/11/181904 Reviewed: Reviewed by Me Diagonstic Imaging: Xray Plain Films/CT/US/NM/MRI: chest (1 view) Comments Post central line shows the distal tip of the central line in good position in the superior vena cava just above the right atrium. No evidence of pneumothorax. No other acute cardiopulmonary processes noted. Otherwise Unchanged from previous x-ray. Reviewed: Reviewed by Me Consults Consults : Consulting Physician: Patricia SANDERSON MD Consults Notes Discussed case lab imaging findings and he agrees with Levophed. Lasix. We'll check a d-dimer. Departure Communication (PCP) Spoke to Dr. Pat; primary care provider and internal medicine and she recommends this patient is not stable for this hospital. We also do not have any ICU beds available. 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 Impression Primary Impression: Acute decompensated heart failure Additional Impressions: Pulmonary embolism Qualified Codes: I26.09 - Other pulmonary embolism with acute cor pulmonale Shortness of breath on exertion Acute kidney injury (nontraumatic) Disposition: XFER SHT-TRM HOSP Condition: Critical Transfer Time Spoke to Accepting Phy: 19:15 Transfer Progress Notes Discussed the case with Dr. Morataya and he agrees to accept the patient. Transfer Facility: [place], [place] Method of Transfer: EMS Departure-Patient Inst. Referrals: CHAO PAT DO (PCP/Family) Primary Care Physician WIL POTTS Sep 11, 2018 18:27
--- NOTE | 2018-09-11 18:29 | NUR ---
FAMILY BROUGHT INTO THE ROOM.
[2018-09-11] MEDS ORDERED: RT-ALBUTEROL/IPRATROPIUM 3 ML (DUONEB) VIAL INH ONE (18:30)
[2018-09-11 18:37] LABS: BASOPHILS % (AUTO) 0 % (0-10); EOSINOPHILS # (AUTO) 0.6 10^3/uL (0.0-0.3); EOSINOPHILS % (AUTO) 7 % (0-10); HEMATOCRIT 27 % (40-54); HEMOGLOBIN 8.6 G/DL (13.3-17.7); LYMPHOCYTES # (AUTO) 1.3 X 10^3 (1.0-4.0); LYMPHOCYTES % (AUTO) 15 % (12-44); MEAN CORPUSCULAR HGB CONC 33 G/DL (32-36); MEAN CORPUSCULAR VOLUME 85 FL (80-99); MEAN PLATELET VOLUME 9.3 FL (7.4-10.4); MONOCYTES # (AUTO) 1.1 X 10^3 (0.0-1.0); MONOCYTES % (AUTO) 12 % (0-12); NEUTROPHILS # (AUTO) 5.9 X 10^3 (1.8-7.8); NEUTROPHILS % (AUTO) 66 % (42-75); PLATELET COUNT 343 10^3/uL (130-400); RED CELL DISTRIBUTION WIDTH 17.1 % (10.0-14.5); WHITE BLOOD COUNT 8.9 10^3/uL (4.3-11.0)
[2018-09-11 18:38] LABS: MEAN CORPUSCULAR HEMOGLOBIN 27 PG (25-34)
[2018-09-11 18:42] LABS: ABG OXYGEN SATURATION 100 % (94-100); ABG PCO2 34 MMHG (35-45); ABG PH 7.39 (7.37-7.43); ABG PO2 201 MMHG (79-93); ABG TCO2 21.1 MMOL/L (21.0-31.0)
[2018-09-11 18:43] LABS: ALLENS TEST YES-POS; INSPIRED O2 50%; VENTILATOR NO
[2018-09-11 18:51] LABS: ALBUMIN 3.7 GM/DL (3.2-4.5); BILIRUBIN,TOTAL 0.5 MG/DL (0.1-1.0); CALCIUM 8.8 MG/DL (8.5-10.1); CREATININE SERUM 3.48 MG/DL (0.60-1.30); MAGNESIUM 2.1 MG/DL (1.8-2.4); POTASSIUM 5.7 MMOL/L (3.6-5.0); TOTAL PROTEIN 7.3 GM/DL (6.4-8.2)
--- NOTE | 2018-09-11 18:53 | NUR ---
REPORT GIVEN TO
[2018-09-11 19:00] VITALS: BP 84/61
[2018-09-11] MEDS ORDERED: FUROSEMIDE 40 MG/4 ML INJ (LASIX) IVP ONE (19:00)
--- NOTE | 2018-09-11 19:00 | Diagnostic Imaging Report ---
INDICATION: Shortness of breath Portable chest 6:50 PM There is cardiomegaly. There are postop changes from median sternotomy. Pulmonary vascularity is normal. Lungs are clear. There are no effusions or pneumothoraces. IMPRESSION: Cardiomegaly without evidence of pulmonary venous hypertension. Dictated by: Dictated on workstation # [id number]
--- NOTE | 2018-09-11 19:20 | NUR ---
consent for central line placement obtained. pt/family verbalized understanding.
[2018-09-11] MEDS ORDERED: NOREPINEPHRINE 4 MG in NS (IVPB) 250 ML IV SCH (19:30)
[2018-09-11] MEDS ORDERED: ceFAZolin 2 GM IV Premixed 50 ML IV ONE (20:00)
[2018-09-11 20:05] VITALS: BP 83/46
--- NOTE | 2018-09-11 20:10 | NUR ---
hs called for iv antibiotic.
--- NOTE | 2018-09-11 20:15 | NUR ---
ems shift captain notified of pending transfer.
--- NOTE | 2018-09-11 20:17 | Diagnostic Imaging Report ---
INDICATION: PICC line placement Portable chest 8 PM Right EJ PICC line tip projects over the SVC. There are postop changes from a median sternotomy. There is cardiomegaly. Vascularity is normal. Lungs are clear. IMPRESSION: Cardiomegaly without evidence of pulmonary venous hypertension Dictated by: Dictated on workstation # [id number]
[2018-09-11] MEDS ORDERED: HEParin DRIP 25000 UNIT/500ML 500 ML IV ONE (20:30)
[2018-09-11] MEDS ORDERED: HEParin 1000 UNIT/ML (10ML VIAL) FOR BOLUS IV ONE (20:30)
[2018-09-11 21:19] VITALS: BP 120/90
== END 2018-09-11 21:22 | disposition short-term general hospital (02) ==
LOC: EDUNIT# 18:10 → ER 18:11
DX: I11.0 Hypertensive heart disease with heart failure (principal); I50.9 Heart failure, unspecified; I26.09 Other pulmonary embolism with acute cor pulmonale; N17.9 Acute kidney failure, unspecified; I25.2 Old myocardial infarction; J44.9 Chronic obstructive pulmonary disease, unspecified; I48.91 Unspecified atrial fibrillation; I25.10 Atherosclerotic heart disease of native coronary artery without angina pectoris; E78.00 Pure hypercholesterolemia, unspecified; E11.40 Type 2 diabetes mellitus with diabetic neuropathy, unspecified; F41.9 Anxiety disorder, unspecified; E03.9 Hypothyroidism, unspecified; Z95.1 Presence of aortocoronary bypass graft; Z95.5 Presence of coronary angioplasty implant and graft; Z82.49 Family history of ischemic heart disease and other diseases of the circulatory system; Z91.14 Patient's other noncompliance with medication regimen; Z87.440 Personal history of urinary (tract) infections; Z87.448 Personal history of other diseases of urinary system; Z87.19 Personal history of other diseases of the digestive system; Z87.891 Personal history of nicotine dependence; Z90.89 Acquired absence of other organs; Z98.890 Other specified postprocedural states; Z90.79 Acquired absence of other genital organ(s); Z98.52 Vasectomy status; Z87.01 Personal history of pneumonia (recurrent); Z88.5 Allergy status to narcotic agent; Z79.51 Long term (current) use of inhaled steroids; Z79.82 Long term (current) use of aspirin; Z79.52 Long term (current) use of systemic steroids; Z79.4 Long term (current) use of insulin
CPT/HCPCS: 36415; 36600; 71045; 80053; 82805; 83735; 83880; 85025; 85379; 86141; 93005; 93041

== ENCOUNTER 2018-10-08 16:07 | Emergency (ER) | payer OTHER, MEDICARE ==
[~2018-10-08] VITALS: Ht 175.3 cm; Wt 181.4 kg
[2018-10-08 16:28] LABS: BASOPHILS % (AUTO) 0 % (0-10); EOSINOPHILS # (AUTO) 0.4 10^3/uL (0.0-0.3); EOSINOPHILS % (AUTO) 3 % (0-10); HEMATOCRIT 27 % (40-54); HEMOGLOBIN 8.9 G/DL (13.3-17.7); LYMPHOCYTES # (AUTO) 1.8 X 10^3 (1.0-4.0); LYMPHOCYTES % (AUTO) 14 % (12-44); MEAN CORPUSCULAR HEMOGLOBIN 28 PG (25-34); MEAN CORPUSCULAR HGB CONC 33 G/DL (32-36); MEAN CORPUSCULAR VOLUME 85 FL (80-99); MEAN PLATELET VOLUME 11.2 FL (7.4-10.4); MONOCYTES # (AUTO) 1.2 X 10^3 (0.0-1.0); MONOCYTES % (AUTO) 9 % (0-12); NEUTROPHILS # (AUTO) 9.4 X 10^3 (1.8-7.8); NEUTROPHILS % (AUTO) 73 % (42-75); PLATELET COUNT 168 10^3/uL (130-400); RED CELL DISTRIBUTION WIDTH 19.3 % (10.0-14.5); WHITE BLOOD COUNT 12.8 10^3/uL (4.3-11.0)
[2018-10-08 16:44] LABS: INR 1.4 (0.8-1.4); PROTHROMBIN TIME PATIENT 17.5 SEC (12.2-14.7)
[2018-10-08 16:54] LABS: ALBUMIN 3.9 GM/DL (3.2-4.5); BILIRUBIN,TOTAL 0.4 MG/DL (0.1-1.0); CALCIUM 9.2 MG/DL (8.5-10.1); CREATININE SERUM 5.16 MG/DL (0.60-1.30); POTASSIUM 5.6 MMOL/L (3.6-5.0); TOTAL PROTEIN 6.8 GM/DL (6.4-8.2)
[2018-10-08] MEDS ORDERED: DEXTROSE 50% 50 ML (IMS) SYR ONE (16:55)
[2018-10-08] MEDS ORDERED: DEXTROSE 50% 50 ML (IMS) SYR IV ONE ×2 (17:00→18:00)
--- NOTE | 2018-10-08 17:27 | Progress Note-Post Operative ---
Post-Operative Progess Note Surgeon (s)/Corporate Strategy Associate (s) Surgeon MARTINE RUSSELL DO Corporate Strategy Associate: none Pre-Operative Diagnosis venous Insufficiency, CHF exacerabation Post-Operative Diagnosis same Procedure & Operative Findings Date of Procedure 10/08/18 Procedure Performed/Findings Right IJ central line placement with US guidance Anesthesia Type local lidocaine Estimated Blood Loss Estimated blood loss (mL): less than 3ml Specimens/Packing Specimens Removed none MARTINE RUSSELL DO Oct 08, 2018 17:27
--- NOTE | 2018-10-08 17:45 | ED General ---
General Chief Complaint: Cardiac/General Problems Stated Complaint: SOB Nursing Triage Note: PT PRESENTS TO ED WITH COMPLAINTS OF INCREASED LOWER EXTREMITY SWELLING THAT GOES UP TO HER ABDOMEN. PT ALSO REPORTS INCREASE IN LETHARGY, GENERALIZED WEAKNESS STARTING YESTERDAY. Nursing Sepsis Screen: No Definite Risk Source of Information: Patient Exam Limitations: No Limitations (CIRILO PAEZ MD) Source of Information: Patient Exam Limitations: No Limitations (MAIN VACA STUDENT) History of Present Illness Date Seen by Provider: Oct 08, 2018 Time Seen by Provider: 16:30 Initial Comments In further discussion with the patient, he does report fever yesterday of about 100. Also now admits to cough. States the swelling in his legs is gotten much worse. Timing/Duration: 2-3 Days Severity: Moderate, Severe Associated Systoms: Fever/Chills, Shortness of Air, Weakness (CIRILO PAEZ MD) Initial Comments 67 y/o M presented via EMS for swelling and hypotension. He has a history of CHF and CKD and was recently discharged from [facility] after a stay with pneumonia. He has chronic bilateral leg swelling; however, over the past couple of days, he has had more swelling that extends up above his knees and shortness of breath. Yesterday, he had diarrhea and incontinence throughout the day, which resolved last night; he also had some spotting and blurriness of his vision yesterday. He was feeling increasing fatigue and weakness today, so he called his daughter and had her come take his blood pressure. His pressure was 80s-90s systolic, so they called EMS. He denies cough, wheezing, and pain. He does have a sore over his tailbone that they have been treating at home. Timing/Duration: 2-3 Days Severity: Severe Associated Systoms: No Chest Pain, No Cough, No Fever/Chills; Headaches, Malaise; No Nausea/Vomiting; Shortness of Air, Weakness, Other (diarrhea yesterday) (MAIN VACA STUDENT) Allergies and Home Medications Allergies Coded Allergies: Qouccnm-Zjs-Jqq Reductase Inhibitor (Verified Allergy, Unknown, 10/15/17) codeine (Verified Allergy, Unknown, Takes Lortab at home, 05/28/18) fish oil (Verified Allergy, Unknown, 3/5/18) Home Medications Albuterol Sulfate 2.5 Mg/3 Ml Vial.neb, 2.5 MG NEB Q4H PRN for SHORTNESS OF BREATH, (Reported) Albuterol Sulfate 1 Puff Puff, 2 PUFF INH Q4H PRN for SHORTNESS OF BREATH, ( Reported) Aspirin 81 Mg Tab.chew, 81 MG PO DAILY, (Reported) Cetirizine HCl/Pseudoephedrine 1 Each Tab.er.12h, 1 TAB PO DAILY, (Reported) Diltiazem HCl 240 Mg Cap.er.deg, 240 MG PO DAILY, (Reported) Docusate Sodium 100 Mg Capsule, 500 MG PO DAILY PRN for CONSTIPATION-1ST LINE, ( Reported) Esomeprazole Magnesium 20 Mg Capsule.dr, 20 MG PO HS, (Reported) Finasteride 5 Mg Tablet, 5 MG PO DAILY, (Reported) Fluconazole 100 Mg Tablet, 100 MG PO DAILY Prescribed by: HCAO PAT on 08/21/18950 Fluticasone Propionate 16 Gm [place].susp, 2 SPRAYS NS HS, (Reported) Fluticasone/Salmeterol 1 Each Blst.w.dev, 1 PUFF IH BID, (Reported) Furosemide 80 Mg Tablet, 80 MG PO 1300, (Reported) Hydrocodone Bit/Acetaminophen 1 Each Tablet, 1 TAB PO Q6H PRN for PAIN-MODERATE, (Reported) Insulin Detemir 100 Unit/1 Ml Insuln.pen, 40 UNITS SC BID, (Reported) Insulin Lispro 100 Unit/1 Ml Insuln.pen, 50 UNITS SQ ACHS, (Reported) Lactulose 10 Gm/15 Ml Solution, 2 TBS PO Q4H PRN for CONSTIPATION-3RD LINE, ( Reported) Levothyroxine Sodium 25 Mcg Tablet, 25 MCG PO DAILY, (Reported) Lidocaine 1 Each Adh..patch, 1 PATCH TP DAILY PRN for KNEE/BACK PAIN, (Reported) 5% Meloxicam 15 Mg Tablet, 15 MG PO DAILY, (Reported) LAST FILLED #30 10-31-18 Methylprednisolone Sod Succ/Pf 40 Mg/1 Ml Vial, 40 MG IV Q12H Prescribed by: CHAO PAT on 08/21/18951 Metolazone 5 Mg Tablet, 5 MG PO 1300, (Reported) Metoprolol Succinate 50 Mg Tab.er.24h, 50 MG PO DAILY, (Reported) Montelukast Sodium 10 Mg Tablet, 10 MG PO HS, (Reported) Eehjdmufybyq-Ohid-Jrpmynlk,Iso 4.5 Gm/100 Ml Froz.piggy, 4.5 GM IV Q8H Prescribed by: CHAO PAT on 08/21/18 0952 Potassium Chloride 10 Meq Tablet.er, 20 MEQ PO BID, (Reported) TAKES 2 (10MEQ) TABLETS Rosuvastatin Calcium 5 Mg Tablet, 5 MG PO DAILY, (Reported) Sennosides 15 Mg Tablet, 1 TAB PO DAILY PRN for CONSTIPATION-5TH LINE, (Reported ) Spironolactone 25 Mg Tablet, 50 MG PO 1300, (Reported) TAKES 2 (25MG) TABLETS Sulfamethoxazole/Trimethoprim 1 Each Tablet, 0.5 TAB PO HS, (Reported) TAKES 1/2 TABLET Tamsulosin HCl 0.4 Mg Cap.er.24h, 0.4 MG PO DAILY, (Reported) Umeclidinium [place] 62.5 Mcg Blst.w.dev, 1 PUFF INH DAILY, (Reported) Patient Home Medication List Home Medication List Reviewed: Yes (CIRILO PAEZ MD) Home Medication List Reviewed: Yes (MAIN VACA STUDENT) Review of Systems Review of Systems Constitutional: No chills; dizziness; No fever; malaise, weakness EENTM: blurred vision; No double vision, No eye pain, No nose congestion Respiratory: No cough; orthopnea; No phlegm; short of breath; No wheezing Cardiovascular: No chest pain; edema; No syncope Gastrointestinal: No abdominal pain; diarrhea; No melena, No nausea, No vomiting Genitourinary: decreased output; No dysuria, No frequency Musculoskeletal: back pain Skin: lesions (decubitus ulcer on tailbone ); No rash Psychiatric/Neurological: Headache, Weakness (MAIN VACA STUDENT) All Other Systems Reviewed Negative Unless Noted: Yes (CIRILO PAEZ MD) Past Leniiaz-Bqyvsx-Uthlfz Hx Past Med/Social Hx: Reviewed Nursing Past Med/Soc Hx (CIRILO PAEZ MD) Past Med/Social Hx: Reviewed Nursing Past Med/Soc Hx (MAIN VACA STUDENT) Patient Social History Alcohol Use: Denies Use Number of Drinks Today: GG Alcohol Beverage of Choice: Whiskey Recreational Drug Use: No Type Used: Cigarettes Former Smoker, Quit: Aug 13, 1996 2nd Hand Smoke Exposure: No Recent Foreign Travel: No Contact w/Someone Who Travel: No Recent Infectious Disease Expo: No Recent Hopitalizations: No Physical Abuse: No Sexual Abuse: No Mistreated: No Fear: No (CIRILO PAEZ MD) Immunizations Up To Date Tetanus Booster (TDap): Unknown PED Vaccines UTD: No Date of Pneumonia Vaccine: May 13, 2017 Date of Influenza Vaccine: May 22, 2018 (CIRILO PAEZ MD) Seasonal Allergies Seasonal Allergies: Yes (CIRILO PAEZ MD) Past Medical History Surgeries: Yes Adenoidectomy, Cardiac, CABG, Coronary Stent, Gallbladder, Tonsillectomy, Transurethral Resection, Vasectomy Respiratory: Yes Asthma, Pneumonia, COPD Currently Using CPAP: Yes Currently Using BIPAP: No Cardiac: Yes (CHF) Atrial Fibrillation, Chronic Edema/Swelling, Coronary Artery Disease, Heart Attack, High Cholesterol, Hypertension Neurological: No Neuropathy Reproductive Disorders: No Sexually Transmitted Disease: No HIV/AIDS: No Genitourinary: Yes Prostate Problems, Bladder Infection, Renal Failure, UTI-Chronic Gastrointestinal: Yes Gastrointestinal Bleed, Chronic Constipation Musculoskeletal: Yes Arthritis, Chronic Back Pain Endocrine: Yes Diabetes, Insulin dep, Hypothyroidsim HEENT: Yes Cataract Loss of Vision: Denies Hearing Impairment: Denies Cancer: No Psychosocial: Yes Anxiety Integumentary: Yes Pruritis Blood Disorders: No Adverse Reaction/Blood Tranf: No (CIRILO PAEZ MD) Family Medical History Reviewed Nursing Family Hx (CIRILO PAEZ MD) Reviewed Nursing Family Hx (MAIN VACA) Cancer 03 FATHER Congestive heart failure 03 MOTHER Family history: Arthritis 03 MOTHER Family history: Asthma 03 MOTHER Family history: Cardiovascular disease 03 MOTHER Family history: Diabetes mellitus 09 BROTHER Family history: Gastrointestinal disease 03 FATHER History of drug abuse 09 BROTHER Asthma, Heart Disease, Hypertension (CIRILO PAEZ MD) Physical Exam Vital Signs Vital Signs - First Documented 10/08/18 16:20 Temp 95.8 Pulse 42 Resp 20 B/P (MAP) 81/42 (55) Pulse Ox 94 O2 Delivery Nasal Cannula O2 Flow Rate 4.00 (MAIN VACA STUDENT) Vital Signs Capillary Refill : Less Than 3 Seconds (CIRILO PAEZ MD) Height, Weight, BMI Height: 5'9.00" Weight: 400lbs. 0.0oz. 181.502030te; 58.5 BMI Method:Stated General Appearance: WD/WN, Chronically ill, Mild Distress, Obese HEENT: PERRL/EOMI, TMs Normal, Pharynx Normal Neck: Full Range of Motion, Normal Inspection, Supple Respiratory: Chest Non Tender, Crackles (bilateral bases), Wheezing Cardiovascular: Bradycardia, Irregularly Irregular, Other (hypotension) Back: Normal Inspection, No CVA Tenderness, No Vertebral Tenderness Extremity: Normal Capillary Refill, Normal Inspection, Normal Range of Motion, Pedal Edema (bilateral pedal edema that extends up to above his groin. 4+ throughout the legs) Neurologic/Psychiatric: Alert, Oriented x3, No Motor/Sensory Deficits, Normal Mood/Affect Skin: Normal Color, Warm/Dry (CIRILO PAEZ MD) General Appearance: WD/WN, Chronically ill, Mild Distress, Obese Eyes: Bilateral Eye Normal Inspection, Bilateral Eye PERRL, Bilateral Eye EOMI HEENT: PERRL/EOMI, TMs Normal, Normal ENT Inspection, Pharynx Normal Neck: Full Range of Motion, Normal Inspection, Supple Respiratory: Chest Non Tender, No Accessory Muscle Use, Crackles, Wheezing Cardiovascular: No JVD, No Murmur, Normal Peripheral Pulses, Bradycardia, Irregularly Irregular, Other (hypotension) Gastrointestinal: Normal Bowel Sounds, Non Tender, Soft Back: Normal Inspection, No CVA Tenderness, No Vertebral Tenderness Extremity: Normal Capillary Refill, Normal Inspection, Normal Range of Motion, Pedal Edema (bilateral pedal edema that extends up into his groin) Neurologic/Psychiatric: Alert, Oriented x3, No Motor/Sensory Deficits, Normal Mood/Affect (MAIN VACA STUDENT) Focused Exam Lactate Level 10/08/18 16:19: Lactic Acid Level 0.94 (MAIN VACA) Lactic Acid Level Laboratory Tests Test 10/08/18 16:19 Lactic Acid Level 0.94 MMOL/L (0.50-2.00) (MAIN VACA) Procedures/Interventions Suture Size: 4-0 (CIRILO PAEZ MD) Progress/Results/Core Measures Suspected Sepsis Recent Fever Within 48 Hours: No Infection Criteria Present: None New/Unexplained Altered Menta: Yes Sepsis Screen: No Definite Risk SIRS Temperature:95.8 Pulse: 42 Respiratory Rate: 20 Laboratory Tests 10/08/18 16:19: White Blood Count 12.8H Blood Pressure 81 /42 Mean: 55 10/08/18 16:19: Lactic Acid Level 0.94 Laboratory Tests 10/08/18 16:19: Creatinine 5.16H, INR Comment 1.4, Platelet Count 168, Total Bilirubin 0.4 (CIRILO PAEZ MD) Results/Orders Lab Results Laboratory Tests Test 10/08/18 16:19 10/08/18 17:48 10/08/18 18:15 Range/Units White Blood Count 12.8 H 4.3-11.0 10^3/uL Red Blood Count 3.24 L 4.35-5.85 10^6/uL Hemoglobin 8.9 L 13.3-17.7 G/DL Hematocrit 27 L 40-54 % Mean Corpuscular Volume 85 80-99 FL Mean Corpuscular Hemoglobin 28 25-34 PG Mean Corpuscular Hemoglobin Concent 33 32-36 G/DL Red Cell Distribution Width 19.3 H 10.0-14.5 % Platelet Count 168 130-400 10^3/uL Mean Platelet Volume 11.2 H 7.4-10.4 FL Neutrophils (%) (Auto) 73 42-75 % Lymphocytes (%) (Auto) 14 12-44 % Monocytes (%) (Auto) 9 0-12 % Eosinophils (%) (Auto) 3 0-10 % Basophils (%) (Auto) 0 0-10 % Neutrophils # (Auto) 9.4 H 1.8-7.8 X 10^3 Lymphocytes # (Auto) 1.8 1.0-4.0 X 10^3 Monocytes # (Auto) 1.2 H 0.0-1.0 X 10^3 Eosinophils # (Auto) 0.4 H 0.0-0.3 10^3/uL Basophils # (Auto) 0.0 0.0-0.1 10^3/uL Prothrombin Time 17.5 H 12.2-14.7 SEC INR Comment 1.4 0.8-1.4 Activated Partial Thromboplast Time 43 H 24-35 SEC Sodium Level 132 L 135-145 MMOL/L Potassium Level 5.6 H 3.6-5.0 MMOL/L Chloride Level 101 98-107 MMOL/L Carbon Dioxide Level 19 L 21-32 MMOL/L Anion Gap 12 5-14 MMOL/L Blood Urea Nitrogen 91 H 7-18 MG/DL Creatinine 5.16 H 0.60-1.30 MG/DL Estimat Glomerular Filtration Rate 11 BUN/Creatinine Ratio 18 Glucose Level 41 *L 70-105 MG/DL Lactic Acid Level 0.94 0.50-2.00 MMOL/L Calcium Level 9.2 8.5-10.1 MG/DL Corrected Calcium 9.3 8.5-10.1 MG/DL Total Bilirubin 0.4 0.1-1.0 MG/DL Aspartate Amino Transf (AST/SGOT) 19 5-34 U/L Alanine Aminotransferase (ALT/SGPT) 40 0-55 U/L Alkaline Phosphatase 96 40-136 U/L Troponin I 0.119 H <0.028 NG/ML Total Protein 6.8 6.4-8.2 GM/DL Albumin 3.9 3.2-4.5 GM/DL Glucometer 63 L 70-110 MG/DL Urine Color YELLOW Urine Clarity SLIGHTLY CLOUDY Urine pH 5 5-9 Urine Specific [place] 1.020 1.016-1.022 Urine Protein 3+ H NEGATIVE Urine Glucose (UA) NEGATIVE NEGATIVE Urine Ketones NEGATIVE NEGATIVE Urine Nitrite NEGATIVE NEGATIVE Urine Bilirubin NEGATIVE NEGATIVE Urine Urobilinogen NORMAL NORMAL MG/DL Urine Leukocyte Esterase 1+ H NEGATIVE Urine RBC (Auto) 1+ H NEGATIVE Urine RBC 0-2 /HPF Urine WBC 0-2 /HPF Urine Crystals NONE /LPF Urine Amorphous Sediment LARGE BERT URATES H /LPF Urine Bacteria FEW H /HPF Urine Casts NONE /LPF Urine Mucus NEGATIVE /LPF Urine Culture Indicated CULTURE PENDING (MAIN VACA STUDENT) Medications Given in ED Current Medications Medications Dose Ordered Sig/Jt Route Start Time Stop Time Status Last Admin Dose Admin Dextrose 50 ml ONCE ONCE IV 10/08/18 17:00 10/08/18 17:01 DC 10/08/18 16:49 50 ML Dextrose 50 ml ONCE ONCE IV 10/08/18 18:00 10/08/18 18:01 DC 10/08/18 17:59 50 ML (MAIN VACA STUDENT) Vital Signs/I&O 10/08/18 10/08/18 16:20 16:20 Temp 95.8 Pulse 42 Resp 20 B/P (MAP) 81/42 (55) Pulse Ox 94 95 O2 Delivery Nasal Cannula O2 Flow Rate 4.00 (MAIN VACA STUDENT) Vital Signs/I&O Capillary Refill : Less Than 3 Seconds (CIRILO PAEZ MD) Blood Pressure Mean: 55 Progress Note : Progress Note I have seen and evaluated the patient and agree with above except as indicated. Have directed the plan of care. Patient has chronic significant medical conditions including CHF and acute on chronic renal failure. Recently had pneumonia. IV, labs, blood cultures and lactic acid ordered. Chest x-ray and EKG ordered. We will hold on fluid at this point as patient has significant volume overload concerns with 4+ pedal edema. Due to his hypotension at home, central line will be placed. On-call surgeon, Dr. Yuan was available for line placement so we utilized him to place the line. This was done. Patient did have improvement of his blood pressure with out fluids or pressors. He was noted to be hypoglycemic and patient admitted to taking his lunchtime insulin without eating much. D50 was given at 1650 and repeated again later. Blood sugar increased from 44-65 and then 69 after D50. D10 drip initiated at 50 mL an hour. 1854: I have discussed the case with Chen Michelle animal awaiting callback from critical care specialists. 1917: I have talked to the critical care team at [facility] in [place]. I did discuss the case with Dr. MONTILLA and he accepts patient for transfer to their facility. We are currently awaiting bed. Blood pressure is 90s to 100s systolic over 50s. We will have Levophed available as needed. Patient did receive Lasix 80 mg IV and fentanyl 50 g IV for volume overload and pain respectively. Patient will go to their facility via EMS. The chest x-ray will be clouded to [facility] in [place]. This is been requested. Paperwork to go with patient. I did discuss all of this with the patient and family who agree to transfer. (CIRILO PAEZ MD) ECG Initial ECG Impression Date: Oct 08, 2018 Initial ECG Impression Time: 16:22 Initial ECG Rate: 41 Initial ECG Rhythm: A Fib/Flutter Comment Atrial fibrillation with bradycardia. Low voltage throughout. Leftward axis. No evidence of STEMI. Similar to EKG on 09/11/18. Interpreted by Dr. Paez. (MAIN VACA STUDENT) Diagnostic Imaging Diagonstic Imaging: Xray Plain Films/CT/US/NM/MRI: chest Comments NAME: JENNIFER GARCIA REC#: [id number] PT STATUS: REG ER : 1950 PHYSICIAN: ROSA ROSARIO ADMIT DATE: 10/08/18/ER Signed Date of Exam: 10/08/18 CHEST 1 VIEW, AP/PA ONLY CLINICAL INDICATION: Patient is post line placement. EXAM: Portable chest x-ray, upright view. COMPARISON: Portable chest x-ray, upright view dated 09/11/2018. FINDINGS: Stable cardiomegaly and pulmonary vascular congestion. Sternotomy wires are seen. Right IJ central line again seen with tip in the distal superior vena cava. There is no pleural effusion or pneumothorax. Bilateral lung airspace opacities are again seen. There are degenerative spurs involving the thoracic spine. IMPRESSION: 1: Stable chest x-ray exam with cardiomegaly and pulmonary vascular congestion which may be seen with congestive heart failure. 2: Bilateral lung airspace opacities which may be related to atelectasis versus infiltrate. Pulmonary congestion may be present as well. Dictated by: Dictated on workstation # [id number] Dict: 10/08/181740 Trans: 10/08/181758 Interpreted by: WENCESLAO AMES MD Electronically signed by: WENCESLAO AMES MD 10/08/181758 (MAIN VACA STUDENT) Departure Impression Primary Impression: Acute on chronic renal failure Qualified Codes: N17.9 - Acute kidney failure, unspecified; N18.9 - Chronic kidney disease, unspecified Additional Impressions: Congestive heart failure Qualified Codes: I50.9 - Heart failure, unspecified Hypoglycemia Hypotension Qualified Codes: I95.9 - Hypotension, unspecified Pneumonia Qualified Codes: J18.9 - Pneumonia, unspecified organism Disposition: [facility] Condition: Stable Transfer Time Spoke to Accepting Phy: 19:18 Transfer Time: 18:55 Transfer Facility: [place], [place], Dr. Montilla accepting Method of Transfer: EMS (CIRILO PAEZ MD) Departure-Patient Inst. Referrals: CHAO PAT DO (PCP/Family) Primary Care Physician CIRILO PAEZ MD Oct 08, 2018 17:45 MAIN VACA STUDENT Oct 08, 2018 17:52
[2018-10-08 18:23] LABS: BILIRUBIN,URINE NEGATIVE (NEGATIVE); CLARITY,URINE SLIGHTLY CLOUDY; COLOR,URINE YELLOW; GLUCOSE, URINE (UA) NEGATIVE (NEGATIVE); KETONES,URINE NEGATIVE (NEGATIVE); LEUKOCYTE ESTERASE ,URINE 1+ (NEGATIVE); NITRITE,URINE NEGATIVE (NEGATIVE); PH,URINE 5 (5-9); PROTEIN,URINE 3+ (NEGATIVE); UROBILINOGEN,URINE NORMAL (NORMAL)
[2018-10-08 18:28] LABS: AMORPHOUS SEDIMENT,UR LARGE AMOR URATES /LPF; BACTERIA,URINE FEW /HPF; RBC,URINE 0-2 /HPF; WBC,URINE 0-2 /HPF
[2018-10-08] MEDS ORDERED: FUROSEMIDE 40 MG/4 ML INJ (LASIX) IVP ONE ×2 (18:45→19:00)
[2018-10-08] MEDS ORDERED: fentaNYL INJECTION 100 MCG/2 ML AMP IVP STA (18:48)
[2018-10-08] MEDS ORDERED: DEXTROSE 10% IV SOLUTION 1,000 ML IV STA (18:48)
[2018-10-08] MEDS ORDERED: PIPERACILLIN SODIUM/TAZOBACTAM 4.5 GM in NS (IVPB) 100 ML IV ONE (19:00)
--- NOTE | 2018-10-08 19:00 | NUR ---
ASSUMED CARE OF PT @ THIS TIME.
[2018-10-08] MEDS ORDERED: NOREPINEPHRINE 4 MG in NS (IVPB) 250 ML IV SCH (19:30)
--- NOTE | 2018-10-08 20:00 | NUR ---
NOTIFIED CC BOBTAILER TO REQUEST PT TRANSFER TO [facility].
--- NOTE | 2018-10-08 20:04 | NUR ---
REPORT GIVEN TO POOJA VU FROM [facility]. ROOM #[id number]
[2018-10-08 21:42] VITALS: BP 93/54
--- NOTE | 2018-10-09 02:37 | OPERATIVE REPORT ---
DATE OF SERVICE: PREOPERATIVE DIAGNOSES: 1. Venous insufficiency. 2. Acute exacerbation of congestive heart failure. POSTOPERATIVE DIAGNOSES: 1. Venous insufficiency. 2. Acute exacerbation of congestive heart failure. PROCEDURE: Insertion of right IJ central line with ultrasound guidance. SURGEON: Sincere Yuan DO INSPECTOR [employer]CTS: None. ANESTHESIA: Local lidocaine. BLOOD LOSS: Less than 3 mL. SPECIMENS: None. FLUIDS: None. POSTOPERATIVE CONDITION: Stable. INDICATION FOR PROCEDURE: The patient is a 67-year-old male who has venous insufficiency. He is in acute exacerbation of CHF and needed a central line placed. FINDINGS: The patient had a central line placed right IJ without any difficulty. PROCEDURE NOTE: After informed consent was obtained, the patient in the ER bed was placed in the slight Trendelenburg position, sterilely prepped and draped in normal fashion. Local lidocaine was used to infiltrate the skin in the right neck. Then, using ultrasound, visualized the right IJ and then watched as the needle advanced into the right IJ. Good flash of blood, removed the syringe, placed a guidewire down the needle using Seldinger technique, it went in easily, checked with the ultrasound, was in good position in the middle of the vein. At this point, then removed the needle, made a stab incision along the guidewire with a #11 blade and then over the guidewire, placed a dilator using Seldinger technique, it went in easily. I then removed the dilator and then placed the triple lumen catheter over the dilator using the Seldinger technique, it went in easily, removed the guidewire, placed locking caps on all 3 ports and then easily aspirated and flushed. Got good flash of blood in each of them. They were then locked, suture the catheter in place with 3-0 silk suture and then placed a biodisc and an occlusive dressing. The patient tolerated the procedure. Sponge, instrument, needle count correct at the end of the case. Job ID: [id number] DocumentID: [id number] Dictated Date: 10/08/2018 17:30:20 Pulverizer Feeder Date: 10/09/2018 02:36:32 Dictated By: SINCERE YUAN DO
== END 2018-10-08 21:42 | disposition short-term general hospital (02) ==
LOC: EDUNIT# 16:07 → ER 16:08
DX: N17.9 Acute kidney failure, unspecified (principal); E11.22 Type 2 diabetes mellitus with diabetic chronic kidney disease; I13.0 Hypertensive heart and chronic kidney disease with heart failure and stage 1 through stage 4 chronic kidney disease, or unspecified chronic kidney disease; I50.9 Heart failure, unspecified; N18.9 Chronic kidney disease, unspecified; E11.649 Type 2 diabetes mellitus with hypoglycemia without coma; I95.9 Hypotension, unspecified; J18.9 Pneumonia, unspecified organism; E03.9 Hypothyroidism, unspecified; J44.9 Chronic obstructive pulmonary disease, unspecified; F41.9 Anxiety disorder, unspecified; I25.10 Atherosclerotic heart disease of native coronary artery without angina pectoris; E78.00 Pure hypercholesterolemia, unspecified; I48.91 Unspecified atrial fibrillation; Z88.5 Allergy status to narcotic agent; Z88.8 Allergy status to other drugs, medicaments and biological substances; Z82.49 Family history of ischemic heart disease and other diseases of the circulatory system; Z87.440 Personal history of urinary (tract) infections; Z87.448 Personal history of other diseases of urinary system; Z87.19 Personal history of other diseases of the digestive system; Z79.51 Long term (current) use of inhaled steroids; Z79.82 Long term (current) use of aspirin; Z79.4 Long term (current) use of insulin; Z87.891 Personal history of nicotine dependence; Z95.1 Presence of aortocoronary bypass graft; Z90.89 Acquired absence of other organs; Z95.5 Presence of coronary angioplasty implant and graft; Z98.52 Vasectomy status; Z87.01 Personal history of pneumonia (recurrent)
CPT/HCPCS: 36415; 51702; 71045; 80053; 81000; 82962; 83605; 83880; 84484; 85025; 85610; 85730; 87040; 87088; 93005

== ENCOUNTER → 2019-02-28 | Outpatient (CLI) | payer MEDICARE, OTHER | LOC: WOUNDCARE 09:11 | PROVIDERS: ATTEND Surgery | DX: E11.621 Type 2 diabetes mellitus with foot ulcer (principal); E11.42 Type 2 diabetes mellitus with diabetic polyneuropathy; E11.65 Type 2 diabetes mellitus with hyperglycemia; E11.52 Type 2 diabetes mellitus with diabetic peripheral angiopathy with gangrene; L97.211 Non-pressure chronic ulcer of right calf limited to breakdown of skin; I87.331 Chronic venous hypertension (idiopathic) with ulcer and inflammation of right lower extremity; I89.0 Lymphedema, not elsewhere classified; E66.01 Morbid (severe) obesity due to excess calories; I50.9 Heart failure, unspecified; I70.262 Atherosclerosis of native arteries of extremities with gangrene, left leg; L97.529 Non-pressure chronic ulcer of other part of left foot with unspecified severity | CPT/HCPCS: 99214 ==

== ENCOUNTER → 2019-03-05 | Outpatient (CLI) | payer MEDICARE, OTHER ==
[~2019-03-05] MED LIST changes: -BUME1TAB4 PO; +BUME1TAB8 PO; -ROSU5TAB12 PO; +ROSU5TAB13 PO
== END ==
LOC: WOUNDCARE 13:18
PROVIDERS: ATTEND Surgery
DX: E11.621 Type 2 diabetes mellitus with foot ulcer (principal); E11.42 Type 2 diabetes mellitus with diabetic polyneuropathy; E11.52 Type 2 diabetes mellitus with diabetic peripheral angiopathy with gangrene; E11.65 Type 2 diabetes mellitus with hyperglycemia; I96 Gangrene, not elsewhere classified; L97.512 Non-pressure chronic ulcer of other part of right foot with fat layer exposed; I89.0 Lymphedema, not elsewhere classified; L97.211 Non-pressure chronic ulcer of right calf limited to breakdown of skin; I87.331 Chronic venous hypertension (idiopathic) with ulcer and inflammation of right lower extremity; E66.01 Morbid (severe) obesity due to excess calories; I50.9 Heart failure, unspecified
CPT/HCPCS: 29581

== ENCOUNTER → 2019-03-13 | Outpatient (CLI) | payer MEDICARE, OTHER | LOC: WOUNDCARE 08:27 | PROVIDERS: ATTEND Surgery | DX: L97.512 Non-pressure chronic ulcer of other part of right foot with fat layer exposed (principal); I89.0 Lymphedema, not elsewhere classified; E11.621 Type 2 diabetes mellitus with foot ulcer; E11.42 Type 2 diabetes mellitus with diabetic polyneuropathy; E11.65 Type 2 diabetes mellitus with hyperglycemia; E66.01 Morbid (severe) obesity due to excess calories; I50.9 Heart failure, unspecified; I96 Gangrene, not elsewhere classified; R68.89 Other general symptoms and signs | CPT/HCPCS: 29581 ==

== ENCOUNTER → 2019-03-21 | Outpatient (CLI) | payer MEDICARE, OTHER | LOC: WOUNDCARE 09:25 | PROVIDERS: ATTEND Surgery | DX: L97.512 Non-pressure chronic ulcer of other part of right foot with fat layer exposed (principal); I89.0 Lymphedema, not elsewhere classified; E11.621 Type 2 diabetes mellitus with foot ulcer; E11.42 Type 2 diabetes mellitus with diabetic polyneuropathy; E11.65 Type 2 diabetes mellitus with hyperglycemia; E66.01 Morbid (severe) obesity due to excess calories; I50.9 Heart failure, unspecified; E11.52 Type 2 diabetes mellitus with diabetic peripheral angiopathy with gangrene; I96 Gangrene, not elsewhere classified; R68.89 Other general symptoms and signs | CPT/HCPCS: 99212 ==

== ENCOUNTER → 2019-03-28 | Outpatient (CLI) | payer MEDICARE, OTHER | LOC: WOUNDCARE 08:37 | PROVIDERS: ATTEND Surgery | DX: E11.621 Type 2 diabetes mellitus with foot ulcer (principal); E11.42 Type 2 diabetes mellitus with diabetic polyneuropathy; E11.65 Type 2 diabetes mellitus with hyperglycemia; E66.01 Morbid (severe) obesity due to excess calories; R68.89 Other general symptoms and signs; I50.9 Heart failure, unspecified; L97.512 Non-pressure chronic ulcer of other part of right foot with fat layer exposed; I89.0 Lymphedema, not elsewhere classified | CPT/HCPCS: 99212 ==

== ENCOUNTER → 2019-06-20 | Outpatient (CLI) | payer MEDICARE, OTHER ==
--- NOTE | 2019-06-20 11:40 | Diagnostic Imaging Report ---
EXAMINATION: Cervical spine at 11:11 a.m. INDICATION: Neck pain x3 months. TECHNIQUE: AP, lateral, odontoid, and both oblique views were obtained. COMPARISON: There are no prior studies available for comparison. FINDINGS: The lateral view shows fairly severe degenerative disc and bony disease at C3-C4, C4-C5, C5-C6, and C6-C7. Specifically, there is narrowing of the disc spaces at each of these levels with osteophyte formation. The oblique views also show bony foraminal encroachment bilaterally at these levels, particularly on the left. There is no fracture or acute bony abnormality appreciated. There is no sign of retropharyngeal edema. The lung apices are clear. IMPRESSION: 1. There is no evidence for an acute bony abnormality. 2. There is degenerative disc and bony disease involving the mid and lower cervical spine. 3. If there is clinical concern regarding spinal stenosis or nerve root encroachment, then MRI would be recommended for additional study. Dictated by: Dictated on workstation # [id number]
== END ==
LOC: RAD 10:41
PROVIDERS: ATTEND Internal Medicine
DX: M50.31 Other cervical disc degeneration, high cervical region (principal); M47.812 Spondylosis without myelopathy or radiculopathy, cervical region
CPT/HCPCS: 72050

== ENCOUNTER 2019-12-09 09:14 | Outpatient (RCR) | payer MEDICARE, OTHER ==
[2019-10-21 13:20] VITALS: BP 129/66
--- NOTE | 2019-10-21 14:35 | Diagnostic Imaging Report ---
INDICATION: PICC line placement. COMPARISON: 10/08/2018 FINDINGS: Single frontal radiographic view of the chest was obtained and demonstrates right upper extremity PICC line. Central tip of the catheter is heavily obscured secondary to patient body habitus, but the catheter extends at least into the SVC. Sternotomy wires are noted. Lung araiza are heavily obscured as well, but appear to be clear. No large effusion or pneumothorax is seen. Cardiac silhouette is moderately enlarged. Pulmonary vasculature may be slightly prominent as well. IMPRESSION: 1. Right upper extremity PICC line as above. 2. Cardiomegaly and pulmonary vascular congestion. Dictated by: Dictated on workstation # [id number]
[2019-10-28 11:32] VITALS: BP 146/68
[2019-10-28 12:32] LABS: CALCIUM 10.1 MG/DL (8.5-10.1); CREATININE SERUM 2.03 MG/DL (0.60-1.30); POTASSIUM 3.9 MMOL/L (3.6-5.0)
--- NOTE | 2019-10-28 12:40 | NUR ---
this rn called pt to inform him of critical glucose on bmp. pt voiced understanding. he will take insulin at home et recheck blood sugar. will notify dr toussaint if he is unable to control blood sugar.
[2019-11-04 13:04] VITALS: BP 169/78
[2019-11-11 11:07] VITALS: BP 123/69
[2019-11-18 09:35] VITALS: BP 125/80
[2019-11-25 09:05] VITALS: BP 147/83
[2019-12-02 10:40] VITALS: BP 129/65
[~2019-12-09] VITALS: Ht 175.3 cm; Wt 178.6 kg
[~2019-12-09 09:14] MED LIST changes: +BETA15CR14 TP; -BETA15CR37 TP; +FUROSEMIDE 40 MG/4 ML INJ (LASIX) IV NR; +FUROSEMIDE 40 MG/4 ML INJ (LASIX) IV ONE; +FUROSEMIDE 40 MG/4 ML INJ (LASIX) ONE; +MAGN400T8 PO; -METO-370 PO; +METO50TA7 PO; -MONT10TA24 PO; +MONT10TA26 PO; -TAMS0.4C98 PO; +TMSL.4C PO
[2019-12-09 09:30] VITALS: BP 143/75
== END 2019-12-09 09:30 | disposition home or self-care (01) ==
LOC: SDC 09:14
PROVIDERS: ATTEND Internal Medicine
DX: I51.7 Cardiomegaly (principal); R09.89 Other specified symptoms and signs involving the circulatory and respiratory systems
CPT/HCPCS: 36415; 36569; 71045; 76937; 80048; 96365; 96374; 99211

== ENCOUNTER 2020-09-05 19:49 | Inpatient (IN) | payer MEDICARE, OTHER ==
[~2020-09-05] VITALS: Ht 175.3 cm; Wt 160.3 kg
[~2020-09-05 19:49] MED LIST changes: -ASCO-262 PO; -CHOL10002 PO; -CYCL10TA9 PO; -DILT120C85 PO; -DM/P1CAP51 PO; -GUAI600T43 PO; -INSU100V31 SQ; -MAGN400C PO; -METO10TA7 PO; -OXYB10TA29 PO; -PHEN95TA30 PO; -POTA10CA43 PO; -SULF1TAB34 PO; -SULF1TAB35 PO; -[UNRECOGNIZED DRUG - OTHER] PO
[2020-09-05] MEDS ORDERED: LORazepam 0.5 MG (ATIVAN) TABLET PO PRN (20:00)
[2020-09-05] MEDS ORDERED: BISACODYL 10 MG SUPP (DULCOLAX) PR PRN (20:00)
[2020-09-05] MEDS ORDERED: ONDANSETRON 4 MG (ZOFRAN) ORAL DISSOLVE TAB PO PRN (20:00)
[2020-09-05] MEDS ORDERED: ANTACID SUSP 30 ML UDC (MYLANTA) PO PRN (20:00)
[2020-09-05] MEDS ORDERED: ONDANSETRON 4 MG/2 ML (SDV) Z0FRAN IV PRN (20:00)
[2020-09-05] MEDS ORDERED: polyethylene glycoL POWDER 17 GM (MIRALAX) PACK PO PRN (20:00)
[2020-09-05] MEDS ORDERED: MELATONIN 3 MG TABLET PO PRN (20:00)
[2020-09-05] MEDS ORDERED: hydrALAZINE (APESOLINE) 20 MG/ML VIAL IV PRN (20:00)
[2020-09-05] MEDS ORDERED: AZITHROMYCIN INJECTION 500 MG in NS (IVPB) 250 ML IV ONE (20:15)
--- NOTE | 2020-09-05 21:56 | NUR ---
JOSEJENNIFER Sanches admitted to room 426, with an admitting diagnosis of COVID+ and PNA, on 09/05/2020 from [facility] via EMS, accompanied by EMS.JENNIFER GARCIA introduced to surroundings, call light, bed controls, phone, TV, temperature control, lights, meal times, smoking policy, visitor policy, side rail policy, bathrooms and showers. Patient Rights given to patient in the handbook. JENNIFER GARCIA verbalizes understanding that [facility] is not responsible for the loss or damage to any personal effects or valuables that are kept in the patients posession during their hospitalization. JENNIFER GARCIA verbalizes understanding of Interdisciplinary Patient Education. Patient and/or family were informed about the Rapid Response Team and its purpose.
[2020-09-05] MEDS ORDERED: inSUlin ASPART (NovoLOG) 1 UNIT/0.01 ML (CHARGE PER UNIT) ONE (22:34)
[2020-09-05] MEDS: inSUlin ASPART (NovoLOG) 1 UNIT/0.01 ML (CHARGE PER UNIT) SC SCH (22:39)
--- NOTE | 2020-09-05 22:45 | NUR ---
Took pt blood sugar. Pt had no ID band yet. Pt BS = 418. Notified Dr. Rivera, given orders to give highest dose on sliding scale, give night dose of Levemir per emar, and to recheck blood sugar at 2 am and give sliding scale Novolog. Will follow orders.
[2020-09-05] MEDS: DOCUSATE SODIUM 100 MG (COLACE) CAP PO SCH (22:56)
[2020-09-05] MEDS: SENNOSIDES 8.6 MG (SENOKOT) TAB PO SCH (22:56)
[2020-09-05] MEDS ORDERED: WATER (STERILE) FOR INJECTION 20 ML ONE (23:32)
[2020-09-05] MEDS ORDERED: cefTRIAXone 2 GM/20 ML for IV (ROCEPHIN) ONE (23:32)
[2020-09-05] MEDS ORDERED: NS (IVPB) 250 ML ONE (23:46)
[2020-09-05] MEDS ORDERED: AZITHROMYCIN INJECTION 500 MG/5 ML VIAL ONE (23:46)
[2020-09-06] VITALS (9 sets, daily range): BP systolic 120–157; BP diastolic 60–78
[2020-09-06] MEDS: cefTRIAXone FOR IV USE 2,000 MG in WATER (STERILE) FOR INJECTION 20 ML IV SCH ×2 (00:08→21:10)
[2020-09-06] MEDS ORDERED: RT-ALBUTEROL INHALER HFA (VENTOLIN HFA) 18 GM IH PRN (02:15)
--- NOTE | 2020-09-06 02:51 | NUR ---
Took pt blood sugar. Upon scanning pt ID band, error. Addendum: 09/06/20 at 0254 by SIM CONNOLLY RN Took pt blood sugar. Upon scanning pt ID band, error when scanning, ID band invalid. Notified registration. BS = 382. Will give sliding scale per Dr. Rivera's order.
[2020-09-06] MEDS: inSUlin ASPART (NovoLOG) 1 UNIT/0.01 ML (CHARGE PER UNIT) SC SCH ×9 (03:09→21:12)
--- NOTE | 2020-09-06 05:56 | Pulmonary Consultation ---
History of Present Illness History of Present Illness Date Seen by Provider: Sep 06, 2020 Time Seen by Provider: 05:41 Date of Admission History of Present Illness 69yo [place] [facility] [place] dx of COVID and hypoxia. Pt maggwengrupo on BiPAP. Allergies and Home Medications Allergies Coded Allergies: Mntmaap-Ejz-Ayw Reductase Inhibitor (Verified Allergy, Unknown, 10/15/17) codeine (Verified Allergy, Unknown, Takes Lortab at home, 05/28/18) fish oil (Verified Allergy, Unknown, 10/15/17) Home Medications Albuterol Sulfate 2.5 Mg/3 Ml Vial.neb, 2.5 MG NEB Q4H PRN for SHORTNESS OF BREATH, (Reported) Albuterol Sulfate 1 Puff Puff, 2 PUFF INH Q4H PRN for SHORTNESS OF BREATH, (Reported) Aspirin 81 Mg Tab.chew, 81 MG PO DAILY, (Reported) Cetirizine HCl/Pseudoephedrine 1 Each Tab.er.12h, 1 TAB PO DAILY, (Reported) Diltiazem HCl 240 Mg Cap.er.deg, 240 MG PO DAILY, (Reported) Docusate Sodium 100 Mg Capsule, 500 MG PO DAILY PRN for CONSTIPATION-1ST LINE, (Reported) Esomeprazole Magnesium 20 Mg Capsule.dr, 20 MG PO HS, (Reported) Finasteride 5 Mg Tablet, 5 MG PO DAILY, (Reported) Fluconazole 100 Mg Tablet, 100 MG PO DAILY Prescribed by: CHAO PAT on 08/21/18 0951 Fluticasone Propionate 16 Gm [place].susp, 2 SPRAYS NS HS, (Reported) Fluticasone/Salmeterol 1 Each Blst.w.dev, 1 PUFF IH BID, (Reported) Furosemide 80 Mg Tablet, 80 MG PO 1300, (Reported) Hydrocodone Bit/Acetaminophen 1 Each Tablet, 1 TAB PO Q6H PRN for PAIN-MODERATE, (Reported) Insulin Detemir 100 Unit/1 Ml Insuln.pen, 40 UNITS SC BID, (Reported) Insulin Lispro 100 Unit/1 Ml Insuln.pen, 50 UNITS SQ ACHS, (Reported) Lactulose 10 Gm/15 Ml Solution, 2 TBS PO Q4H PRN for CONSTIPATION-3RD LINE, (Reported) Levothyroxine Sodium 25 Mcg Tablet, 25 MCG PO DAILY, (Reported) Lidocaine 1 Each Adh..patch, 1 PATCH TP DAILY PRN for KNEE/BACK PAIN, (Reported) 5% Meloxicam 15 Mg Tablet, 15 MG PO DAILY, (Reported) LAST FILLED #30 --18 Methylprednisolone Sod Succ/Pf 40 Mg/1 Ml Vial, 40 MG IV Q12H Prescribed by: CHAO PAT on 08/21/18951 Metolazone 5 Mg Tablet, 5 MG PO 1300, (Reported) Metoprolol Succinate 50 Mg Tab.er.24h, 50 MG PO DAILY, (Reported) Montelukast Sodium 10 Mg Tablet, 10 MG PO HS, (Reported) Gwmmmmiaspwk-Gzoc-Odyurmdx,Iso 4.5 Gm/100 Ml Froz.piggy, 4.5 GM IV Q8H Prescribed by: CHAO PAT on 08/21/18951 Potassium Chloride 10 Meq Tablet.er, 20 MEQ PO BID, (Reported) TAKES 2 (10MEQ) TABLETS Rosuvastatin Calcium 5 Mg Tablet, 5 MG PO DAILY, (Reported) Sennosides 15 Mg Tablet, 1 TAB PO DAILY PRN for CONSTIPATION-5TH LINE, (Reported) Spironolactone 25 Mg Tablet, 50 MG PO 1300, (Reported) TAKES 2 (25MG) TABLETS Sulfamethoxazole/Trimethoprim 1 Each Tablet, 0.5 TAB PO HS, (Reported) TAKES 1/2 TABLET Tamsulosin HCl 0.4 Mg Cap.er.24h, 0.4 MG PO DAILY, (Reported) Umeclidinium [place] 62.5 Mcg Blst.w.dev, 1 PUFF INH DAILY, (Reported) Past Kvjgltu-Pccsat-Zbyhmy Hx Patient Social History Alcohol Beverage of Choice: Lifesumey Smoking Status: Former Smoker Type Used: Cigarettes Former Smoker, Quit: Aug 13, 1996 2nd Hand Smoke Exposure: No Recent Hopitalizations: No Have you traveled recently?: No Alcohol Use?: Yes Immunizations Up To Date Tetanus Booster (TDap): Unknown PED Vaccines UTD: No Date of Pneumonia Vaccine: May 13, 2017 Date of Influenza Vaccine: Jun 09, 2020 Seasonal Allergies Seasonal Allergies: Yes Past Medical History Surgeries: Yes Adenoidectomy, Cardiac, CABG, Coronary Stent, Gallbladder, Tonsillectomy, Transurethral Resection, Vasectomy Respiratory: Yes Asthma, Pneumonia, COPD Currently Using CPAP: Yes Currently Using BIPAP: No Cardiac: Yes (CHF) Atrial Fibrillation, Chronic Edema/Swelling, Coronary Artery Disease, Heart Attack, High Cholesterol, Hypertension Neurological: No Neuropathy Reproductive Disorders: No Sexually Transmitted Disease: No HIV/AIDS: No Genitourinary: Yes Prostate Problems, Bladder Infection, Renal Failure, UTI-Chronic Gastrointestinal: Yes Gastrointestinal Bleed, Chronic Constipation Musculoskeletal: Yes Arthritis, Chronic Back Pain Endocrine: Yes Diabetes, Insulin dep, Hypothyroidsim HEENT: Yes Cataract Loss of Vision: Denies Hearing Impairment: Denies Cancer: No Psychosocial: Yes Anxiety Integumentary: Yes Pruritis Blood Disorders: No Adverse Reaction/Blood Tranf: No Family Medical History Cancer 03 FATHER Congestive heart failure 03 MOTHER Family history: Arthritis 03 MOTHER Family history: Asthma 03 MOTHER Family history: Cardiovascular disease 03 MOTHER Family history: Diabetes mellitus 09 BROTHER Family history: Gastrointestinal disease 03 FATHER History of drug abuse 09 BROTHER Asthma, Heart Disease, Hypertension Review of Systems Time Seen by Provider: 05:59 Sepsis Event Evaluation Height, Weight, BMI Height: 5'9.00" Weight: 400lbs. 0.0oz. 181.390087fg; 53.85 BMI Method:Stated Exam Exam Vital Signs Date Time Temp Pulse Resp B/P (MAP) Pulse Ox O2 Delivery O2 Flow Rate FiO2 09/06/20 04:00 36.2 68 27 138/67 (90) 97 NIV Bilevel 09/06/20 02:47 40 45.00 09/06/20 02:41 Nasal Cannula 4.00 09/06/20 01:56 36.3 67 92 36 09/06/20 01:56 Nasal Cannula 4.00 09/06/20 01:00 66 09/06/20 00:00 36.3 67 20 120/66 (84) 92 Nasal Cannula 3.00 09/05/20 22:30 Nasal Cannula 3.00 09/05/20 22:23 70 I & O 09/06/20 07:00 Intake Total 250 ml Balance 250 ml Height & Weight Height: 5'9.00" Weight: 400lbs. 0.0oz. 181.542002fk; 53.85 BMI Method:Stated Assessment/Plan Assessment/Plan Acute on chronic respiratory failure -Currenlty requiring BiPAP -Check ABG COVID 19 PNA -Oxygen -Dx 09/05 -Bipap PRN -Decadron -Check labs and CXR COPDAE -oxygen -SVNs hx of diastolic CHF IDDM Morbid obesity with JOSE MANUEL -Home CPAP Chronic Afib and CAD -Cardiology following Acute on CKD hx of Cellulitis and abscess of foot RAIMUNDO MATTHEWS DO Sep 06, 2020 05:56
[2020-09-06 05:59] LABS: BASOPHILS % (AUTO) 0 % (0-10); EOSINOPHILS % (AUTO) 0 % (0-10); HEMATOCRIT 34 % (40-54); LYMPHOCYTES # (AUTO) 0.6 10^3/uL (1.0-4.0); LYMPHOCYTES % (AUTO) 8 % (12-44); MEAN CORPUSCULAR HEMOGLOBIN 29 pg (25-34); MEAN CORPUSCULAR HGB CONC 33 g/dL (32-36); MEAN CORPUSCULAR VOLUME 89 fL (80-99); MEAN PLATELET VOLUME 9.9 fL (9.0-12.2); MONOCYTES # (AUTO) 0.5 10^3/uL (0.0-1.0); MONOCYTES % (AUTO) 7 % (0-12); NEUTROPHILS # (AUTO) 5.8 10^3/uL (1.8-7.8); NEUTROPHILS % (AUTO) 84 % (42-75); PLATELET COUNT 273 10^3/uL (130-400); WHITE BLOOD COUNT 6.9 10^3/uL (4.3-11.0)
--- NOTE | 2020-09-06 06:06 | NUR ---
Error when using glucometer and scanning pt armband - "is not a valid pt id". Proceed with glucometer test. BS = [id number].
[2020-09-06] MEDS: dexAMETHasone 6 MG TAB (DECADRON) PO SCH (06:09)
[2020-09-06 06:17] LABS: ALBUMIN 3.6 GM/DL (3.2-4.5); POTASSIUM 4.1 MMOL/L (3.6-5.0)
[2020-09-06 06:18] LABS: CALCIUM 9.2 MG/DL (8.5-10.1)
[2020-09-06 06:19] LABS: TOTAL PROTEIN 7.8 GM/DL (6.4-8.2)
[2020-09-06 06:21] LABS: BILIRUBIN,TOTAL 0.3 MG/DL (0.1-1.0)
[2020-09-06 06:23] LABS: CREATININE SERUM 1.73 MG/DL (0.60-1.30); PHOSPHORUS 3.5 MG/DL (2.3-4.7)
[2020-09-06 06:26] LABS: MAGNESIUM 2.3 MG/DL (1.6-2.4)
--- NOTE | 2020-09-06 07:14 | Diagnostic Imaging Report ---
INDICATION: Hypoxia, coronary artery disease. COMPARISON: 10/21/2019 FINDINGS: Single view of the chest demonstrates cardiac enlargement with mild bilateral pulmonary edema and infiltrate. There is no pneumothorax or large effusion. Osseous structures are stable. IMPRESSION: Cardiac enlargement with pulmonary edema and bilateral pulmonary infiltrates. Pneumonia not excluded. Followup recommended. Dictated by: Dictated on workstation # [id number]
[2020-09-06] MEDS: RT-ALBUTEROL INHALER HFA (VENTOLIN HFA) 18 GM IH SCH ×5 (07:55→21:22)
[2020-09-06] MEDS: ADVAIR HFA 115/21 MCG INHALER 8 GM IH SCH ×2 (07:55→18:48)
[2020-09-06] MEDS: UMECLIDINIUM BROMIDE (INCRUSE ELLIPTA) 7'S IH SCH (07:55)
[2020-09-06] MEDS ORDERED: inSUlin ASPART (NovoLOG) 1 UNIT/0.01 ML (CHARGE PER UNIT) SC SCH ×2 (08:00→18:00)
[2020-09-06] MEDS: ENOXAPARIN 60 MG/0.6 ML (LOVENOX) SYR SC SCH ×2 (08:41→21:11)
[2020-09-06] MEDS: DOCUSATE SODIUM 100 MG (COLACE) CAP PO SCH ×2 (08:43→21:11)
[2020-09-06] MEDS: SENNOSIDES 8.6 MG (SENOKOT) TAB PO SCH ×2 (08:43→21:11)
[2020-09-06] MEDS ORDERED: PANTOPRAZOLE 40 MG (PROTONIX) VIAL IV ONE (09:45)
[2020-09-06] MEDS ORDERED: SUCRALFATE 1 GM (CARAFATE) TAB PO SCH (09:45)
--- NOTE | 2020-09-06 10:49 | History & Physical-Hospitalist ---
History of Present Illness HPI/Chief Complaint CC: Dyspnea due to Covid-19 HPI: This is a 69yoWM clinic pt of [facility] for the past 16 years with a hx of morbid obesity, JOSE MANUEL on BiPAP, Severe COPD from previous smoking, coronary artery bypass graft, AF on chronic oral anticoagulants, and DM out of control with HTN and HLP with chronic renal insufficiency who presents to the [facility] with dyspnea. Wanted to be transferred to [facility], beds, so he willingly was admitt ed to [facility]. Dr. Whitney has been consulted, he sees Dr. Colby pulmonology. We are in the midst of getting BiPAP set up for his use and his symptoms began on Sunday. Source: patient Exam Limitations: no limitations Date Seen 09/06/20 Time Seen by a Provider: 09:30 Attending Physician Ashli Rivera MD PCP America Pat DO Referring Physician Date of Admission Sep 05, 2020 at 21:50 Home Medications & Allergies Home Medications Reviewed patient Home Medication Reconciliation performed by pharmacy medication reconciliations natural gas technician and/or nursing. Patients Allergies have been reviewed. Allergies Allergies Coded Allergies Wmglhxd-Yuq-Sip Reductase Inhibitor (Verified Allergy, Unknown, 10/15/17) codeine (Verified Allergy, Unknown, Takes Lortab at home, 05/28/18) fish oil (Verified Allergy, Unknown, 10/15/17) Past Izfwmsr-Ifslnu-Wlrvjz Hx Past Med/Social Hx: Reviewed Nursing Past Med/Soc Hx, Reviewed and Corrections made Patient Social History Marrital Status: Employed/Student: retired Alcohol Use: Denies Use Alcohol Beverage of Choice: Whiskey Smoking Status: Former Smoker Former Smoker, Quit: Aug 13, 1996 Type Used: Cigarettes 2nd Hand Smoke Exposure: No Recent Hopitalizations: No Immunizations Up To Date Tetanus Booster (TDap): Unknown Pediatric: No Date of Pneumonia Vaccine: May 13, 2017 Date of Influenza Vaccine: Jun 09, 2020 Seasonal Allergies Seasonal Allergies: Yes Past Medical History Surgeries: Adenoidectomy, Cardiac, CABG, Coronary Stent, Gallbladder, Tonsillectomy, Transurethral Resection, Vasectomy Respiratory: Chronic Bronchitis, COPD, Pneumonia, Sleep Apnea Currently Using CPAP: Yes Currently Using BIPAP: No Cardiac: Atrial Fibrillation, Chronic Edema/Swelling, Coronary Artery Disease, Heart Attack, High Cholesterol, Hypertension Neurological: Neuropathy Reproductive: No Sexually Transmitted Disease: No HIV/AIDS: No Genitourinary: Prostate Problems, Bladder Infection, Renal Failure, UTI-Chronic Gastrointestinal: Gastrointestinal Bleed, Chronic Constipation Musculoskeletal: Degenerate Disk Disease, Arthritis, Chronic Back Pain Endocrine: Diabetes, Insulin dep, Hypothyroidsim HEENT: Cataract Loss of Vision: Denies Hearing Impairment: Denies Psychosocial: Anxiety Skin/Integumentary: Pruritis History of Blood Disorders: No Adverse Reaction to Blood Leal: No Family History Cancer 03 FATHER Congestive heart failure 03 MOTHER Family history: Arthritis 03 MOTHER Family history: Asthma 03 MOTHER Family history: Cardiovascular disease 03 MOTHER Family history: Diabetes mellitus 09 BROTHER Family history: Gastrointestinal disease 03 FATHER History of drug abuse 09 BROTHER Asthma, Heart Disease, Hypertension Review of Systems Constitutional: see HPI, dizziness, fever, weakness Respiratory: dyspnea on exertion, short of breath Physical Exam Physical Exam Vital Signs Vital Signs - First Documented 09/05/20 09/05/20 09/06/20 09/06/20 22:23 22:30 00:00 01:56 Temp 36.3 Pulse 70 Resp 20 B/P (MAP) 120/66 (84) Pulse Ox 92 O2 Delivery Nasal Cannula O2 Flow Rate 3.00 FiO2 36 Capillary Refill : Height, Weight, BMI Height: 5'9.00" Weight: 400lbs. 0.0oz. 181.831141ct; 53.85 BMI Method:Stated General Appearance: No Apparent Distress, Chronically ill, Obese Eyes: Right Eye Normal Inspection, Right Eye PERRL HEENT: PERRL/EOMI, Normal ENT Inspection, Pharynx Normal, Moist Mucous Membr anes Neck: Full Range of Motion, Normal Inspection, Non Tender Respiratory: Chest Non Tender, Normal Breath Sounds, No Accessory Muscle Use, No Respiratory Distress, Decreased Breath Sounds Cardiovascular: No Edema, No Gallop, No JVD, No Murmur, Normal Peripheral Pulses, Irregularly Irregular Gastrointestinal: Normal Bowel Sounds, No Organomegaly, No Pulsatile Mass, Non Tender, Soft Back: Normal Inspection, No CVA Tenderness, No Vertebral Tenderness Extremity: Normal Capillary Refill, Normal Inspection, Normal Range of Motion, Non Tender, No Calf Tenderness, No Pedal Edema Neurologic/Psychiatric: Alert, Oriented x3, No Motor/Sensory Deficits, Normal Mood/Affect, perinatal nurse II-XII Norm as Tested Skin: Normal Color, Warm/Dry Lymphatic: No Adenopathy Results Results/Procedures Labs Laboratory Tests 09/06/20 05:35 Patient resulted labs reviewed. Assessment/Plan Admission Diagnosis Assessment: COVID-19 PNA Acute hypoxic respiratory failure OHS Hypoxia Chronic respiratory failure maintained on 3L/min O2 at home Severe obesity Severe COPD FOrmer smoker Diastolic dysfunction Chronic AF OAC maintained CRI baseline creat 1.8 DM insulin dependent poor control HTN HLP BPH Chronic UTI Chronic cellulitis of lower extremities Anxiety Severe hypokalemia on large amounts of supplement Hypothyroidism Plan: Pulmo consult Cardiology consult Monitor diabetes Supportive care Admission Status: Inpatient Order (span 2 midnights) Reason for Inpatient Admission: COVID 19 Diagnosis/Problems Diagnosis/Problems (1) Acute respiratory failure due to COVID-19 (2) COPD (chronic obstructive pulmonary disease) with acute bronchitis Status: Acute (3) Congestive heart failure with preserved LV function, NYHA class 3 Status: Acute (4) Obesity hypoventilation syndrome Status: Chronic (5) Chronic atrial fibrillation Status: Chronic (6) JOSE MANUEL (obstructive sleep apnea) Status: Chronic (7) Chronic kidney disease Status: Chronic (8) Essential (primary) hypertension Status: Chronic (9) CAD (coronary artery disease) Status: Chronic (10) Anemia Status: Acute (11) Diabetes mellitus Status: Chronic (12) Hypothyroidism Status: Chronic AMERICA PAT DO Sep 06, 2020 10:49
--- NOTE | 2020-09-06 14:03 | Physical Therapy Evaluation ---
PT Evaluation-General Medical Diagnosis Admission Date Sep 05, 2020 at 21:50 Medical Diagnosis: Covid (+) Onset Date: Sep 05, 2020 Therapy Diagnosis Therapy Diagnosis: debility Height/Weight Height (Feet): 5 Height (Inches): 9.00 Weight (Pounds): 400 Weight (Ounces): 0.0 Precautions Precautions/Isolations: Contact Isolation, Droplet Isolation, Fall Prevention Referral Physician: Miguel Reason for Referral: Evaluation/Treatment Medical History Pertinent Medical History: Atrial Fib, CABG, COPD, DM, Heart Failure, Hypothroidism [place] [facility] [place] (+) Reviewed History: Yes Social History Home: Single Level Entry Into Home: Ramp power chair for mobility Prior Prior Level of Function SCALE: Activities may be completed with or without assistive devices. 8-Qytvgzrgfd-akoksmu completes the activity by him/herself with no assistance from a helper. 5-Set-up or Clean-up Assistance-helper sets up or cleans up; patient completes activity. [place] assists only prior to or following the activity. 4-Supervision or Touching Assistance-helper provides verbal cues and/or touching/steadying and/or contact guard assistance as patient completes activity. Assistance may be provided throughout the activity or intermittently. 3-Partial/Moderate Assistance-helper does LESS THAN HALF the effort. [place] lifts, holds or supports trunk or limbs, but provides less than half the effort. 2-Substantial/Maximal Assistance-helper does MORE THAN HALF the effort. [place] lifts or holds trunk or limbs and provides more than half the effort. 5-Rltbmwdit-ssmxrf does ALL the effort. Patient does none of the effort to complete the activity. Or, the assistance of 2 or more helpers is required for the patient to complete the activity. If activity was not attempted, code reason: 7-Patient Refused. 9-Not Applicable-not attempted and the patient did not perform the activity before the current illness, exacerbation or injury. 10-Not Attempted due to Environmental Limitations-(lack of equipment, weather restraints, etc.). 88-Not Attempted due to Medical Conditions or Safety Concerns. Bed Mobility: 5 Transfers (B,C,W/C): 5 Gait: 5 Stairs: 9 Wheelchair Mobility: 5 Indoor Mobility (Ambulation): Independent (short distances) Stairs: Not Applicalbe Prior Devices Use: Motorized scooter, Walker utilized scooter in and out of home PT Evaluation-Current Subjective Patient reports he is up without difficulty with the platform in place. Objective Patient Orientation: Normal For Age Attachments: Oxygen ROM/Strength ROM Lower Extremities bilateral LE WFL Strength Lower Extremities 4/5 grossly bilateral LE Integumentary/Posture Integumentary refer to nursing notes Bowel Incontinence: No Bladder Incontinence: No Posture trunk flexed posture Neuromuscular (Tone, Coordination, Reflexes) grossly intact Sensory Vision: Wears Glasses Hearing: Functional Transfers Lying to Sitting/Side of Bed(Q: 5 Sit to Stand (QC): 5 Toilet Transfer (QC): 5 Gait Does the Patient Walk?: Yes Mode of Locomotion: Both Anticipated Mode of Locomotion: Both Walk 10 feet (QC): 5 Walk 50 ft with 2 Turns(QC): 9 Walk 150 ft (QC): 9 Gait Assistive Device: FWW Comments/Gait Description functional gait sequence Wheelchair Training Does the Pt Use a Wheelchair?: Yes Stairs 1 Step (curb) (QC): 5 (platform) 4 Steps (QC): 9 12 Steps (QC): 9 Balance Sitting Static: Normal Sitting Dynamic: Normal Standing Static: Normal Standing Dynamic: Normal Assessment/Needs 69 y.o. male, is currently at [facility] with all gross motor skills and does not require skilled therapy intervention. Patient is up with and without nursing staff in room. Rehab Potential: Fair PT Plan Treatment/Plan Treatment Plan: Discontinue PT, goals met Treatment Duration: Sep 06, 2020 Frequency: 1 time per week Estimated Hrs Per Day: .25 hour per day Patient and/or Family Agrees t: Yes Discharge Recommendations Therapy Discharge Recommendati: Home & Family Time/GCodes Time In: 1305 Time Out: 1322 Total Billed Treatment Time: 17 Total Billed Treatment 1 visit EVMod 17 min RIO REYNOLDS PT Sep 06, 2020 14:03
[2020-09-06 15:07] LABS: ABG BASE EXCESS 1.8 MMOL/L (-2.5-2.5); ABG OXYGEN SATURATION 92 % (94-100); ABG PCO2 37 MMHG (35-45); ABG PH 7.45 (7.37-7.43); ABG PO2 58 MMHG (79-93); ABG TCO2 26.8 MMOL/L (21.0-31.0)
[2020-09-06 15:09] LABS: ALLENS TEST YES-POS; INSPIRED O2 4.51L
[2020-09-06 15:10] LABS: PATIENT TEMP 36.4; VENTILATOR NO
[2020-09-06] MEDS ORDERED: DILT120C85 PO (15:18)
[2020-09-06] MEDS ORDERED: POTA10CA43 PO (15:18)
[2020-09-06] MEDS ORDERED: CYCL10TA9 PO (15:18)
[2020-09-06] MEDS ORDERED: CETI1TAB61 PO (15:18)
[2020-09-06] MEDS ORDERED: TMSL.4C PO (15:18)
[2020-09-06] MEDS ORDERED: METO10TA7 PO (15:18)
[2020-09-06] MEDS ORDERED: GUAI600T43 PO (15:18)
[2020-09-06] MEDS ORDERED: OXYB10TA29 PO (15:18)
[2020-09-06] MEDS ORDERED: PHEN95TA30 PO (15:18)
[2020-09-06] MEDS ORDERED: MAGN400C PO (15:18)
[2020-09-06] MEDS ORDERED: SULF1TAB34 PO (15:18)
[2020-09-06] MEDS ORDERED: ASCO-262 PO (15:18)
[2020-09-06] MEDS ORDERED: CHOL10002 PO (15:18)
[2020-09-06] MEDS ORDERED: DM/P1CAP51 PO (15:18)
[2020-09-06] MEDS ORDERED: [UNRECOGNIZED DRUG - OTHER] PO (15:22)
[2020-09-06] MEDS ORDERED: INSU100V31 SQ (15:22)
[2020-09-06] MEDS ORDERED: SULF1TAB35 PO (15:22)
[2020-09-06] MEDS ORDERED: NS IV 500 ML 500 ML ONE (15:34)
--- NOTE | 2020-09-06 15:37 | NUR ---
I SPOKE WITH THE PATIENT'S , CALLED [facility], [facility] AND WENT THROUGH THE EXTERNAL MED HISTORY TO COMPLETE THIS MED REC. PATIENT TAKES HUMALOG, TOLD ME THAT HE GETS IT FROM [facility] AND I WAS UNABLE TO GET THROUGH TO THEM AT THIS TIME. FILL DATE FROM [facility]: ALBUTEROL HAYDEN 08/20/20 #360/30DS OTC: AZO VITAMIN C AIRBORNE ELDERBERRY ASPIRIN MUCINEX ZYRTEC AMI SELTZER MAGNESIUM VITAMIN D3
--- NOTE | 2020-09-06 15:48 | Occupational Therapy Eval ---
OT Evaluation-General/PLF Medical Diagnosis Admission Date Sep 05, 2020 at 21:50 Medical Diagnosis: Covid (+) Onset Date: Sep 05, 2020 Therapy Diagnosis Therapy Diagnosis: Weakness Height/Weight Height (Feet): 5 Height (Inches): 9.00 Weight (Pounds): 400 Weight (Ounces): 0.0 Precautions Precautions/Isolations: Contact Isolation, Droplet Isolation, Fall Prevention Weight Bear Status Weight Bearing Restriction: Weight Bearing/Tolerated Referral Physician: Miguel Referral Reason: Activity Tolerance, Self Care, Evaluation/Treatment, Strengthening/ROM Medical History Pertinent Medical History: Atrial Fib, CABG, CAD, COPD, DM, Heart Failure, HTN, Hypothroidism Additional Medical History Cellulitis, Coronary stent, vasectomy, pneumonia Current History Pt. currently admitted with diagnosis of Covid-19, hypoxia, respiratory failure. Reviewed History: Yes Social History Home: Single Level Current Living Status: Spouse Entry Into Home: [facility] ADL-Prior Level of Function SCALE: Activities may be completed with or without assistive devices. 4-Bbixheuyxc-dnkmins completes the activity by him/herself with no assistance from a helper. 5-Set-up or Clean-up Assistance-helper sets up or cleans up; patient completes activity. [place] assists only prior to or following the activity. 4-Supervision or Touching Assistance-helper provides verbal cues and/or touchi ng/steadying and/or contact guard assistance as patient completes activity. Assistance may be provided throughout the activity or intermittently. 3-Partial/Moderate Assistance-helper does LESS THAN HALF the effort. [place] lifts, holds or supports trunk or limbs, but provides less than half the effort. 2-Substantial/Maximal Assistance-helper does MORE THAN HALF the effort. [place] lifts or holds trunk or limbs and provides more than half the effort. 4-Zjwsohzjn-linbeb does ALL the effort. Patient does none of the effort to complete the activity. Or, the assistance of 2 or more helpers is required for the patient to complete the activity. If activity was not attempted, code reason: 7-Patient Refused. 9-Not Applicable-not attempted and the patient did not perform the activity before the current illness, exacerbation or injury. 10-Not Attempted due to Environmental Limitations-(lack of equipment, weather restraints, etc.). 88-Not Attempted due to Medical Conditions or Safety Concerns. ADL PLOF Comments Pt. lives in a fully handicap accessible home. He stands with grab bars on his own to transfer to and from surfaces, but uses a power chair. He does not ambulate in the home. His spouse assists him with bathing and dressing. Self Care: Needed Some Help Functional Cognition: Independent DME/Equipment: Grab Bars, Shower DME/Equipment Comments Pt. lives in handicap accessible home. OT Current Status Subjective Pt. states, "I just can't catch my breath" after transferring back to bed. Respiratory therapy coming into room, assessing pt. He was able to catch breath with rest. Pt. wearing 5L 02. Mental Status/Objective Patient Orientation: Person, Place, Time, Situation Attachments: IV, Oxygen Current Glasses/Contacts: Yes Hand Dominance: Right Upper Extremity ROM Pt. is able to flex bilateral shoulders to approximately 90 degrees. He states, "this isn't new." Upper Extremity Strength 2+/5 bilateral shoulders 3+/5 distally in bilateral UE ADL-Treatment On/Off Footwear (QC): 2 Other Treatments Pt. sitting on side of bed when OT entered room. Pt. requests to get back to bed. Pt. is able to get feet into bed with min assist, once bed is positioned appropriately for him. After this, pt. is encouraged to bend his knees, while OT blocks feet in bed. Pt. then is able to scoot up in bed by pushing with his feet while they are blocked. Pt. has difficulty catching breath, until he rests approximately 3-5minutes. He is able to slow his breathing and participate in UE ROM/strength testing. Pt. states that his spouse assists him at home, but pt. would benefit from endurance training with OT while in hospital setting. All needs met in room and RT in to assess pt. Education OT Patient Education: Correct positioning, Modified ADL techniques, Progress toward Goal/Update tx plan, Purpose of tx/functional activities, Reviewed precautions, Rehab process, Transfer techniques Teaching Recipient: Patient Teaching Methods: Demonstration, Discussion Response to Teaching: Verbalize Understanding, Return Demonstration OT [facility] Goals Mineral Mixer Goals Time Frame: Sep 20, 2020 Eating (QC): 5 Oral Hygiene (QC): 5 Toileting Hygiene (QC): 4 Additional Goals: 1-Demonstrate ADL Tasks, 2-Verbalize Understanding, 3- ImproveStrength/Rl 1=Demonstrate adherence to instructed precautions during ADL tasks. 2=Patient will verbalize/demonstrate understanding of assistive devices/modifications for ADL. 3=Patient will improve strength/tolerance for activity to enable patient to perform ADL's. Pt. will be able to complete 5 minute activity without need for rest break. OT Education/Plan Problem List/Assessment Assessment: Decreased Activ Tolerance, Decreased UE Strength, Dependent Transfers, Impaired Bed Mobility, Impaired Funct Balance, Impaired I ADL's, Impaired Self-Care Skills, Restricted Funct UE ROM Discharge Recommendations Plan/Recommendations: Continue POC Therapy Discharge Recommendati: Home & Family, Post Acute OT Treatment Plan/Plan of Care Treatment,Training & Education: Yes Patient would benefit from OT for education, treatment and training to promote independence in ADL's, mobility, safety and/or upper extremity function for ADL's. Plan of Care: ADL Retraining, Functional Mobility, UE Funct Exercise/Act Treatment Duration: Sep 20, 2020 Frequency: 5 times per week Estimated Hrs Per Day: .25 hour per day Agreement: Yes Rehab Potential: Fair Time/GCodes Start Time: 14:30 Stop Time: 14:50 Total Time Billed (hr/min): 20 Billed Treatment Time 1, DORITA HERMOSILLO OT Sep 06, 2020 15:47
[2020-09-06] MEDS ORDERED: CYCLOBENZAPRINE 10 MG (FLEXERIL) TAB PO PRN (16:00)
[2020-09-06] MEDS ORDERED: LACTULOSE SYRUP 10GM/15ML (ENULOSE) 30ML UDC PO PRN (16:00)
[2020-09-06] MEDS ORDERED: LACTULOSE 10 GM/15 ML 30 ML POUR BOTTLE FOR ENEMA PO PRN (16:00)
[2020-09-06] MEDS: FUROSEMIDE 40 MG (LASIX) TAB PO SCH (16:25)
[2020-09-06] MEDS: MAGNESIUM OXIDE (MAG-OX)400 MG TAB PO SCH (16:26)
[2020-09-06] MEDS: KCL 10 MEQ TAB (MICRO K) PO SCH ×2 (16:42→21:11)
[2020-09-06] MEDS ORDERED: PHENAZOPYRIDINE 100 MG (PYRIDIUM) TABLET PO PRN (16:45)
[2020-09-06] MEDS ORDERED: POTASSIUM CHLORIDE 50 MEQ PO SCH (17:00)
[2020-09-06] MEDS ORDERED: INSULIN LISPRO 50 UNIT SQ SCH (18:00)
[2020-09-06] MEDS ORDERED: NON-FORMULARY MEDICATION 1 EA EA (Insulin Detemir (Levemir Flextouch) 40 UNITS) SC SCH (21:00)
[2020-09-06] MEDS ORDERED: PHENAZOPYRIDINE HCL PO SCH (21:00)
[2020-09-06] MEDS ORDERED: NON-FORMULARY MEDICATION 1 EA EA (Magnesium Oxide (Magnesium) 400 MG) PO SCH (21:00)
[2020-09-06] MEDS ORDERED: NON-FORMULARY MEDICATION 1 EA EA (Furosemide 80 MG) PO SCH (21:00)
[2020-09-06] MEDS: inSUlin (REGULAR) HUMAN 1 UNIT/0.01 ML (CHARGE PER UNIT) SC SCH (21:11)
[2020-09-06] MEDS: AZITHROMYCIN 250 MG TAB (ZITHROMAX) PO SCH (21:11)
[2020-09-06] MEDS: SPIRONOLACTONE 25 MG (ALDACTONE) TAB PO SCH (21:11)
[2020-09-06] MEDS: MONTELUKAST 10 MG (SINGULAIR) TAB PO SCH (21:11)
[2020-09-06] MEDS: ROSUVASTATIN 5 MG (CRESTOR) TABLET PO SCH (21:11)
[2020-09-06] MEDS: TRIM/SULFAMETH 160/800 (SEPTRA DS) TAB PO SCH (22:22)
[2020-09-07] VITALS (11 sets, daily range): BP systolic 117–166; BP diastolic 64–93
[2020-09-07] MEDS: RT-ALBUTEROL INHALER HFA (VENTOLIN HFA) 18 GM IH SCH ×6 (01:46→23:12)
[2020-09-07] MEDS: LEVOTHYROXINE 25 MCG (LEVOTHROID) TAB PO SCH (06:15)
[2020-09-07] MEDS: inSUlin ASPART (NovoLOG) 1 UNIT/0.01 ML (CHARGE PER UNIT) SC SCH ×7 (06:15→19:49)
[2020-09-07] MEDS: FUROSEMIDE 40 MG (LASIX) TAB PO SCH ×2 (06:15→16:28)
[2020-09-07] MEDS: dexAMETHasone 6 MG TAB (DECADRON) PO SCH (06:15)
[2020-09-07 06:23] LABS: BASOPHILS % (AUTO) 0 % (0-10); EOSINOPHILS % (AUTO) 0 % (0-10); HEMATOCRIT 36 % (40-54); HEMOGLOBIN 11.8 g/dL (13.3-17.7); LYMPHOCYTES # (AUTO) 0.7 10^3/uL (1.0-4.0); LYMPHOCYTES % (AUTO) 5 % (12-44); MEAN CORPUSCULAR HEMOGLOBIN 29 pg (25-34); MEAN CORPUSCULAR HGB CONC 32 g/dL (32-36); MEAN CORPUSCULAR VOLUME 90 fL (80-99); MEAN PLATELET VOLUME 9.9 fL (9.0-12.2); MONOCYTES # (AUTO) 0.9 10^3/uL (0.0-1.0); MONOCYTES % (AUTO) 7 % (0-12); NEUTROPHILS # (AUTO) 11.7 10^3/uL (1.8-7.8); NEUTROPHILS % (AUTO) 87 % (42-75); PLATELET COUNT 292 10^3/uL (130-400); WHITE BLOOD COUNT 13.4 10^3/uL (4.3-11.0)
[2020-09-07] MEDS: UMECLIDINIUM BROMIDE (INCRUSE ELLIPTA) 7'S IH SCH (06:29)
[2020-09-07] MEDS: ADVAIR HFA 115/21 MCG INHALER 8 GM IH SCH ×2 (06:30→18:23)
[2020-09-07 06:35] LABS: ALBUMIN 3.8 GM/DL (3.2-4.5)
[2020-09-07 06:36] LABS: POTASSIUM 3.6 MMOL/L (3.6-5.0)
[2020-09-07 06:37] LABS: CALCIUM 9.2 MG/DL (8.5-10.1)
[2020-09-07 06:38] LABS: TOTAL PROTEIN 8.1 GM/DL (6.4-8.2)
[2020-09-07 06:40] LABS: BILIRUBIN,TOTAL 0.2 MG/DL (0.1-1.0)
[2020-09-07 06:41] LABS: PHOSPHORUS 3.7 MG/DL (2.3-4.7)
[2020-09-07 06:42] LABS: CREATININE SERUM 1.45 MG/DL (0.60-1.30)
[2020-09-07 06:45] LABS: MAGNESIUM 2.2 MG/DL (1.6-2.4)
[2020-09-07 06:51] LABS: BAND NEUTROPHILS 13 %; LYMPHOCYTES % (MANUAL) 9 %; MONOCYTES % (MANUAL) 4 %; NEUTROPHILS % (MANUAL) 74 %; RBC MORPH NORMAL
--- NOTE | 2020-09-07 07:25 | Pulmonary Progress Note ---
Subjective Time Seen by a Provider: 07:22 Subjective/Events-last exam Pt continues to be hypoxic and requiring oxygen. Sepsis Event Evaluation Height, Weight, BMI Height: 5'9.00" Weight: 400lbs. 0.0oz. 181.987615rf; 53.85 BMI Method:Stated Exam Exam Vital Signs Date Time Temp Pulse Resp B/P (MAP) Pulse Ox O2 Delivery O2 Flow Rate FiO2 09/07/20 06:31 89 Nasal Cannula 5.00 09/07/20 01:49 34 45.00 09/07/20 01:47 100 NIV CPAP 45 09/07/20 01:00 52 09/07/20 00:01 36.4 58 21 135/72 (93) 98 High Flow N/C 3.50 09/06/20 22:42 36.4 67 22 131/78 (95) 97 High Flow N/C 3.50 09/06/20 21:24 32 45.00 09/06/20 21:23 90 Nasal Cannula 7.00 09/06/20 21:05 36.4 67 22 131/71 92 High Flow N/C 3.50 09/06/20 20:00 Nasal Cannula 3.00 09/06/20 19:00 76 09/06/20 18:52 90 Nasal Cannula 3.00 09/06/20 18:50 90 Nasal Cannula 3.00 09/06/20 16:15 36.5 70 20 141/75 (97) 97 High Flow N/C 3.50 09/06/20 16:15 36.2 70 20 141/75 97 High Flow N/C 3.50 09/06/20 15:45 36.2 66 20 127/60 90 Nasal Cannula 5.00 09/06/20 14:59 90 Nasal Cannula 4.00 09/06/20 12:19 73 09/06/20 11:34 92 Nasal Cannula 4.00 09/06/20 11:11 36.5 81 20 157/75 (102) 91 Nasal Cannula 4.50 09/06/20 08:45 36.4 66 18 138/72 (94) 94 Nasal Cannula 4.50 09/06/20 08:00 Nasal Cannula 3.00 09/06/20 07:55 92 Nasal Cannula 4.00 I & O 09/07/20 07:00 Intake Total 1980 ml Output Total 2450 ml Balance -470 ml Height & Weight Height: 5'9.00" Weight: 400lbs. 0.0oz. 181.993227pd; 53.85 BMI Method:Stated General Appearance: No Apparent Distress, Chronically ill, Obese HEENT: PERRL/EOMI, Normal ENT Inspection, Pharynx Normal, Moist Mucous Membranes Neck: Full Range of Motion, Normal Inspection, Non Tender Respiratory: Chest Non Tender, Normal Breath Sounds, No Accessory Muscle Use, No Respiratory Distress, Decreased Breath Sounds Cardiovascular: No Edema, No Gallop, No JVD, No Murmur, Normal Peripheral Pulses, Irregularly Irregular Extremity: Normal Capillary Refill, Normal Inspection, Normal Range of Motion, Non Tender, No Calf Tenderness, No Pedal Edema Neurologic/Psychiatric: Alert, Oriented x3, No Motor/Sensory Deficits, Normal Mood/Affect, ware tester II-XII Norm as Tested Skin: Normal Color, Warm/Dry Lymphatic: No Adenopathy Results Lab Laboratory Tests 09/06/20 05:35 09/07/20 05:58 Assessment/Plan Assessment/Plan Acute on chronic respiratory failure -PRN BiPAP -Check ABG COVID 19 PNA -Oxygen -Dx 09/05 -Bipap PRN -Decadron -Continue Rocephin and Azithromycin COPDAE -oxygen -SVNs hx of diastolic CHF IDDM Morbid obesity with JOSE MANUEL -Home CPAP Chronic Afib and CAD -Cardiology following Acute on CKD hx of Cellulitis and abscess of foot RAIMUNDO MATTHEWS DO Sep 07, 2020 07:25
[2020-09-07] MEDS: TAMSULOSIN 0.4 MG (FLOMAX) CAP PO SCH (08:27)
[2020-09-07] MEDS: dilTIAZem120 MG (CARDIZEM CD) CAP PO SCH (08:27)
[2020-09-07] MEDS: VITAMIN D3 25 MCG (1,000 UNITS) TABLET PO SCH (08:27)
[2020-09-07] MEDS: ASPIRIN 81 MG CHEW (CHILDREN'S ASA) PO SCH (08:27)
[2020-09-07] MEDS: guaiFENesin (MUCINEX) 600 MG TAB PO SCH (08:27)
[2020-09-07] MEDS: METOLAZONE 5 MG (ZAROXOLYN) TAB PO SCH (08:28)
[2020-09-07] MEDS: FINASTERIDE (PROSCAR) 5 MG TAB PO SCH (08:28)
[2020-09-07] MEDS: DOCUSATE SODIUM 100 MG (COLACE) CAP PO SCH ×2 (08:28→19:40)
[2020-09-07] MEDS: KCL 10 MEQ TAB (MICRO K) PO SCH ×4 (08:28→20:21)
[2020-09-07] MEDS: SENNOSIDES 8.6 MG (SENOKOT) TAB PO SCH ×2 (08:28→19:40)
[2020-09-07] MEDS: SPIRONOLACTONE 25 MG (ALDACTONE) TAB PO SCH ×2 (08:28→20:21)
[2020-09-07] MEDS: MAGNESIUM OXIDE (MAG-OX)400 MG TAB PO SCH ×2 (08:32→18:45)
[2020-09-07] MEDS: inSUlin (REGULAR) HUMAN 1 UNIT/0.01 ML (CHARGE PER UNIT) SC SCH ×2 (08:32→19:49)
[2020-09-07] MEDS: ENOXAPARIN 60 MG/0.6 ML (LOVENOX) SYR SC SCH ×2 (08:32→20:22)
--- NOTE | 2020-09-07 08:47 | Consultation-Cardiology ---
HPI-Cardiology Cardiology Consultation Date of Consultation 09/07/20 Date of Admission Time Seen by Provider: 07:22 Indication: Hx CAD, afib HPI Patient is a 69 y/o male with hx of CAD, CHF, chronic afib. Transfer [place] [facility] COVID-19 pneumonia and hypoxemia. Patient having increased dyspnea. Denies any chest pain or dizziness. Home Medications & Allergies Allergies: Coded Allergies: Fish Containing Products (Verified Allergy, Intermediate, 09/07/20) fish oil (Verified Allergy, Intermediate, 09/07/20) Rvparfu-Tbs-Fnh Reductase Inhibitor (Verified Allergy, Unknown, 10/15/17) codeine (Verified Allergy, Unknown, Takes Lortab at home, 05/28/18) Home Medication List Reviewed: Yes TMB-[id number]-Wpowpl Hx Patient Social History Marital Status: Employed/Student: retired Smoking Status: Former Smoker Former smoker/When Quit: Aug 13, 2006 Type Used: Cigarettes 2nd Hand Smoke Exposure: No Recent Hopitalizations: No Have you traveled recently?: No Alcohol Use?: Yes Immunizations Up To Date Tetanus Booster (TDap): Unknown Date of Pneumonia Vaccine: May 13, 2017 Date of Influenza Vaccine: Jun 09, 2020 Past Medical History CAD, CHF, AFib, HTN Family Medical History Significant Family History: Asthma, Heart Disease, Hypertension Family History: Cancer 03 FATHER Congestive heart failure 03 MOTHER Family history: Arthritis 03 MOTHER Family history: Asthma 03 MOTHER Family history: Cardiovascular disease 03 MOTHER Family history: Diabetes mellitus 09 BROTHER Family history: Gastrointestinal disease 03 FATHER History of drug abuse 09 BROTHER Review of Systems-General Review of Systems Constitutional: see HPI, fever, malaise, weakness EENTM: see HPI; No blurred vision, No double vision Respiratory: see HPI, cough, dyspnea on exertion, phlegm, short of breath Cardiovascular: see HPI; No chest pain; Hx of Intervention; No palpitations, No syncope; vascular heart diseas Gastrointestinal: No abdominal pain, No constipation Musculoskeletal: No back pain, No joint pain Psychiatric/Neurological: Denies Anxiety, Denies Depressed Reviewed Test Results Reviewed Test Results Lab Laboratory Tests 09/06/20 10:36: Glucometer 359H 09/06/20 14:54: Blood Gas Puncture Site LR, Blood Gas Patient Temperature 36.4, Arterial Blood pH 7.45H, Arterial Blood Partial Pressure CO2 37, Arterial Blood Partial Pressure O2 58L, Arterial Blood HCO3 26, Arterial Blood Total CO2 26.8, Arterial Blood Oxygen Saturation 92L, Arterial Blood Base Excess 1.8, Michael Test YES-POS, Blood Gas Ventilator Setting NO, Blood Gas Inspired Oxygen 4.51L 09/06/20 15:53: Glucometer 372H 09/06/20 20:53: Glucometer 278H 09/07/20 05:56: Glucometer 271H 09/07/20 05:58: White Blood Count 13.4H, Red Blood Count 4.04L, Hemoglobin 11.8L, Hematocrit 36L , Mean Corpuscular Volume 90, Mean Corpuscular Hemoglobin 29, Mean Corpuscular Hemoglobin Concent 32, Red Cell Distribution Width 13.4, Platelet Count 292, Mean Platelet Volume 9.9, Immature Granulocyte % (Auto) 0, Neutrophils (%) (Auto) 87H, Lymphocytes (%) (Auto) 5L, Monocytes (%) (Auto) 7, Eosinophils (%) (Auto) 0, Basophils (%) (Auto) 0, Neutrophils # (Auto) 11.7H, Lymphocytes # (Auto) 0.7L, Monocytes # (Auto) 0.9, Eosinophils # (Auto) 0.0, Basophils # (Auto) 0.0, Immature Granulocyte # (Auto) 0.1, Neutrophils % (Manual) 74, Lymphocytes % (Manual) 9, Monocytes % (Manual) 4, Band Neutrophils 13, Blood Morphology Comment NORMAL, Sodium Level 132L, Potassium Level 3.6, Chloride Level 92L, Carbon Dioxide Level 25, Anion Gap 15H, Blood Urea Nitrogen 38H, Creatinine 1.45H, Estimat Glomerular Filtration Rate 48, BUN/Creatinine Ratio 26, Glucose Level 270H, Calcium Level 9.2, Corrected Calcium 9.4, Phosphorus Level 3.7, Magnesium Level 2.2, Total Bilirubin 0.2, Aspartate Amino Transf (AST/SGOT) 31, Alanine Aminotransferase (ALT/SGPT) 19, Alkaline Phosphatase 110, Total Protein 8.1, Albumin 3.8 09/07/20 08:45: Blood Gas Puncture Site L RAD, Blood Gas Patient Temperature 36.2, Arterial Blood pH 7.50H, Arterial Blood Partial Pressure CO2 34L, Arterial Blood Partial Pressure O2 59L, Arterial Blood HCO3 27, Arterial Blood Total CO2 27.7, Arterial Blood Oxygen Saturation 91L, Arterial Blood Base Excess 3.3H, Michael Test YES- POS, Blood Gas Ventilator Setting NO, Blood Gas Inspired Oxygen 45.00% Microbiology 09/05/20 Blood Culture - Preliminary, Resulted No growth ECG Impression ECG Initial ECG Impression: Atrial Fibrillation Physical Exam Physical Exam Vital Signs Vital Signs - First Documented 09/07/20 09/07/20 00:01 01:47 Temp 36.4 Pulse 58 Resp 21 B/P (MAP) 135/72 (93) Pulse Ox 98 O2 Delivery High Flow N/C O2 Flow Rate 3.50 FiO2 45 Capillary Refill : Height, Weight, BMI Height: 5'9.00" Weight: 400lbs. 0.0oz. 181.546188fo; 53.85 BMI Method:Stated General Appearance: Chronically ill, Mild Distress, Obese Eyes: Right Eye Normal Inspection, Right Eye PERRL HEENT: PERRL/EOMI, Normal ENT Inspection, Pharynx Normal, Moist Mucous Membranes Neck: Full Range of Motion, Normal Inspection, Non Tender Respiratory: Chest Non Tender, Normal Breath Sounds, No Accessory Muscle Use, No Respiratory Distress, Decreased Breath Sounds Cardiovascular: No Edema, No Gallop, No JVD, No Murmur, Normal Peripheral Pulses, Irregularly Irregular Gastrointestinal: Normal Bowel Sounds, No Organomegaly, No Pulsatile Mass, Non Tender, Soft Back: Normal Inspection, No CVA Tenderness, No Vertebral Tenderness Extremity: Normal Capillary Refill, Normal Inspection, Normal Range of Motion, Non Tender, No Calf Tenderness, No Pedal Edema Neurologic/Psychiatric: Alert, Oriented x3, No Motor/Sensory Deficits, Normal Mood/Affect, shearing machine feeder II-XII Norm as Tested Skin: Normal Color, Warm/Dry Lymphatic: No Adenopathy A/P-Cardiology Admission Diagnosis COVID-19 Bilateral pneumonia CAD Chronic afib Assessment/Plan COVID-19 with bilateral pneumonia, management per Dr. Whitney and Dr. Hutton, currently on Vapotherm. Congestive heart failure,chronic diastolic heart failure and cor pulmonale with right-sided heart failure probably secondary to severe COPD. Most recent 2D Echo done Aug 2018 showing mild to moderate TR, PA 40mmHg. Difficult study, unable to visualize endocardium Chronic permanent atrial fibrillation, diagnosed in 2016, rate controlled. Has been unable to tolerate OAC in the past secondary to hx of GI bleed requiring blood transfusion. CAD with a h/o CABG in 2006 at [facility] [place]. On cardiac cath of 11-11-15: Multivessel coronary disease including multiple more than 90% stenosis of the proximal and mid left anterior descending artery. The mid to distal left anterior descending artery is protected with a widely patent left internal mammary artery graft. The left circumflex artery had 99% ostial/proximal stenosis to which successful stenting was carried out with Promus Premier 3.5 x 20 mm stent with a reduction of stenosis to 0% residual. The distal left circumflex and its obtuse marginal branches have diffuse moderate to moderately severe disease which were not intervened on. The right coronary artery is dominant and had 90% proximal stenosis to which successful stenting was carried out with Promus Premier 2.75 x 28 mm stent with reduction of stenosis to 0% residual. The distal right coronary artery has multiple stenoses of 50 to 60%, which were not intervened on. Cardiac cath of 11-11-15 showed well preserved global left ventricular systolic function and ejection fraction of 55 to 60%. Elevated left ventricular end- diastolic pressure which was measured at approximately 20 mmHg. No significant mitral regurgitation. Chronic kidney disease stage 3-4, continue to monitor renal function. Chronic bilat leg swelling, likely due to venous insuff, no evidence of DVT on on venous duplex of 09/13/17, ABIs on 01/13/16 at [place], [place]: 1.1 on both sides Hypertension, restart home medications and continue to monitor. Asthma - follows with Dr. Cadet Quit smoking in early DM II, followed and managed by primary care physician Sleep apnea syndrome - CPAP therapy - managed by Dr. Paris and Dr. Cadet Thank you for allowing us to participate in the management of Mr. Ferraro. This is Pee Mohan PA-C, as a scribe for Dr. Kinsey. Patient was seen and evaluated with Pee, discussed the management plan and agree with the current consult and scribed note PEE LIZAMA Sep 07, 2020 08:47 CEM KINSEY MD Sep 13, 2020 10:06
[2020-09-07 08:52] LABS: ABG BASE EXCESS 3.3 MMOL/L (-2.5-2.5); ABG OXYGEN SATURATION 91 % (94-100); ABG PCO2 34 MMHG (35-45); ABG PO2 59 MMHG (79-93); ABG TCO2 27.7 MMOL/L (21.0-31.0)
[2020-09-07 08:53] LABS: ALLENS TEST YES-POS; INSPIRED O2 45.00%; PATIENT TEMP 36.2; VENTILATOR NO
[2020-09-07] MEDS ORDERED: NON-FORMULARY MEDICATION 1 EA EA (Diltiazem HCl (Diltiazem ER) 120 MG) PO SCH (09:00)
[2020-09-07] MEDS ORDERED: PANTOPRAZOLE 40 MG (PROTONIX) VIAL IV SCH (09:00)
[2020-09-07] MEDS ORDERED: METOLAZONE 10 MG PO SCH (09:00)
--- NOTE | 2020-09-07 09:56 | Progress Note - Hospitalist ---
Subjective HPI/CC On Admission Date Seen by Provider: Sep 07, 2020 Time Seen by Provider: 09:45 CC: Dyspnea due to Covid-19 HPI: This is a 69[facility]WM clinic pt of [facility] for the past 16 years with a hx of morbid obesity, JOSE MANUEL on BiPAP, Severe COPD from previous smoking, coronary artery bypass graft, AF on chronic oral anticoagulants, and DM out of control with HTN and HLP with chronic renal insufficiency who presents to the [place] ER with dyspnea. Wanted to be transferred to [facility], no beds, so he willingly was admitted to [facility]. Dr. Whitney has been consulted, he sees Dr. Colby pulmonology. We are in the midst of getting BiPAP set up for his use and his symptoms began on Sunday. Subjective/Events-last exam Pt now on BiPAP Indwelling catheter placed Pt having a hard time breathing Now on Vapotherm Very difficult situation, he is very high risk for complete decompensation Review of Systems Pulmonary: Dyspnea Objective Exam Vital Signs Vital Signs Date Time Temp Pulse Resp B/P (MAP) Pulse Ox O2 Delivery O2 Flow Rate FiO2 09/08/20 05:00 64 145/76 (99) 91 NIV Bilevel 50.00 09/08/20 02:11 50 09/08/20 02:00 17 09/07/20 21:46 37.2 Capillary Refill : General Appearance: No Apparent Distress, WD/WN, Anxious, Chronically ill, Obese Respiratory: Accessory Muscle Use, Decreased Breath Sounds Cardiovascular: Regular Rate, Rhythm Neurologic/Psychiatric: Alert, Oriented x3, No Motor/Sensory Deficits, Normal Mood/Affect Results/Procedures Lab Laboratory Tests 09/07/20 05:58 09/08/20 02:53 Patient resulted labs reviewed. Assessment/Plan Assessment and Plan Assess & Plan/Chief Complaint Assessment: COVID-19 PNA Acute hypoxic respiratory failure [facility] Hypoxia Chronic respiratory failure maintained on 3L/min O2 at home Severe obesity Severe COPD FOrmer smoker Diastolic dysfunction Chronic AF OAC maintained CRI baseline creat 1.8 DM insulin dependent poor control HTN HLP BPH Chronic UTI Chronic cellulitis of lower extremities Anxiety Severe hypokalemia on large amounts of supplement Hypothyroidism Plan: Pulmo consult Cardiology consult Monitor diabetes Supportive care 09/07/20: biPAP Vapotherm Monitor kidney function Decrease insulin due to hypoglycemia Diagnosis/Problems Diagnosis/Problems (1) Acute respiratory failure due to COVID-19 (2) COPD (chronic obstructive pulmonary disease) with acute bronchitis Status: Acute (3) Congestive heart failure with preserved LV function, NYHA class 3 Status: Acute (4) Obesity hypoventilation syndrome Status: Chronic (5) Chronic atrial fibrillation Status: Chronic (6) JOSE MANUEL (obstructive sleep apnea) Status: Chronic (7) Chronic kidney disease Status: Chronic (8) Essential (primary) hypertension Status: Chronic (9) CAD (coronary artery disease) Status: Chronic (10) Anemia Status: Acute (11) Diabetes mellitus Status: Chronic (12) Hypothyroidism Status: Chronic CHAO PAT DO Sep 07, 2020 09:56
--- NOTE | 2020-09-07 14:08 | Occupational Ther Daily Note ---
OT Current Status-Daily Note Subjective Pt alert, lying in bed. Pt on Vapotherm. Pt agrees to therapy. Mental Status/Objective Patient Orientation: Person, Place, Time, Situation ADL-Treatment Therapy Code Descriptions/Definitions Functional [place] Measure: 0=Not Assessed/NA 4=Minimal Assistance 1=Total Assistance 5=Supervision or Setup 2=Maximal Assistance 6=Modified [place] 3=Moderate Assistance 7=Complete IndependenceSCALE: Activities may be completed with or without assistive devices. 3-Yrefqeigdw-oyqfidn completes the activity by him/herself with no assistance from a helper. 5-Set-up or Clean-up Assistance-helper sets up or cleans up; patient completes activity. [place] assists only prior to or following the activity. 4-Supervision or Touching Assistance-helper provides verbal cues and/or touching/steadying and/or contact guard assistance as patient completes activity. Assistance may be provided throughout the activity or intermittently. 3-Partial/Moderate Assistance-helper does LESS THAN HALF the effort. [place] lifts, holds or supports trunk or limbs, but provides less than half the effort. 2-Substantial/Maximal Assistance-helper does MORE THAN HALF the effort. [place] lifts or holds trunk or limbs and provides more than half the effort. 6-Dpsltrrpn-hwvqdf does ALL the effort. Patient does none of the effort to complete the activity. Or, the assistance of 2 or more helpers is required for the patient to complete the activity. If activity was not attempted, code reason: 7-Patient Refused. 9-Not Applicable-not attempted and the patient did not perform the activity before the current illness, exacerbation or injury. 10-Not Attempted due to Environmental Limitations-(lack of equipment, weather restraints, etc.). 88-Not Attempted due to Medical Conditions or Safety Concerns. Other Treatment Pt completed 3 UE exercises using medium resistance theraband to increase strength and activity tolerance. Pt fatigued easily and required recovery breaks between each set. Pt completed 2 sets 10 reps of each. Pt stated that he was tired after finishing. After session, pt lying in bed with call light/phone in reach. All needs met in room. OT Nursing Home Goals Commutator Presser Goals Time Frame: Sep 20, 2020 Eating (QC): 5 Oral Hygiene (QC): 5 Toileting Hygiene (QC): 4 Additional Goals: 1-Demonstrate ADL Tasks, 2-Verbalize Understanding, 3- ImproveStrength/Rl 1=Demonstrate adherence to instructed precautions during ADL tasks. 2=Patient will verbalize/demonstrate understanding of assistive devices/modifications for ADL. 3=Patient will improve strength/tolerance for activity to enable patient to perform ADL's. OT Education/Plan Problem List/Assessment Assessment: Decreased Activ Tolerance, Decreased UE Strength Discharge Recommendations Plan/Recommendations: Continue POC Treatment Plan/Plan of Care Patient would benefit from OT for education, treatment and training to promote independence in ADL's, mobility, safety and/or upper extremity function for ADL' s. Plan of Care: ADL Retraining, Functional Mobility, UE Funct Exercise/Act Treatment Duration: Sep 20, 2020 Frequency: 5 times per week Estimated Hrs Per Day: .25 hour per day Agreement: Yes Rehab Potential: Fair Time/GCodes Start Time: 13:35 Stop Time: 13:49 Total Time Billed (hr/min): 14 Billed Treatment Time 1 visit-EX 1 (14 min) CONNER GUEVARA Sep 07, 2020 14:07
--- NOTE | 2020-09-07 15:40 | NUR ---
"RD ASSESSMENT PMHx: pneumonia; COPD; afib; CAD; hypercholesterolemia; HTN; renal failure; chronic UTI; DM; hypothyroidism; GERD; chronic constipation; PT INTERACTION: Received dietary consult for MST score. Note pt is currently in COVID isolation per chart review. Note all diet information for consult is per Valerie PATTON or per chart review. Valerie states current appetite is good. Note avg PO intake 75% x1d, per chart review. Valerie states no issues with n/v/c/d that she is aware of. Note last BM was 09/04, and pt currently on bowel regimen of colace BID, and senna BID, per chart review. Note recent 29# wt loss x9mon, per chart review. This is not significant wt loss at 7.3% x9mon. Note unable to determine current level of DM management, and unable to determine recent HBA1c, per chart review. Given wt hx, and PO intake, pt does not meet criteria for malnutrition per ASPEN guidelines. Est. kcal needs: 1816-3426 kcal | 25-30 kcal/kg IBW, based on IBW of 65.9 kg (145#) Est. Pro needs: 53-66 g Pro | 0.8-1.0 g Pro/kg IBW PES STATEMENT: Given current PO intake, no nutrition diagnosis at this time (NO-1.1). INTERVENTION: Continue with current diet order of CHO 60g/m 3snack diet. Did not offer diet education on DM management d/t isolation precautions. Will continue to follow and reassess as pt needs, intake, and status change. Akira CAMPUZANO, MS RD LD [phone] cell"
[2020-09-07] MEDS ORDERED: LORazepam INJ 2 MG/ML (ATIVAN) VIAL ONE (16:00)
[2020-09-07] MEDS: LORazepam INJ 2 MG/ML (ATIVAN) VIAL IVP PRN (16:07)
[2020-09-07] MEDS ORDERED: DEXTROSE 50% 50 ML (IMS) SYR ONE (18:30)
[2020-09-07] MEDS ORDERED: DEXTROSE 50% 50 ML (IMS) SYR IV PRN (18:30)
--- NOTE | 2020-09-07 20:00 | NUR ---
UPON ASSESSMENT PT RESPIRATIONS ARE 40-50. O2SAT IS 88% ON BIPAP. PT IS ALERT AND ORIENTED BUT FATIGUED. RT MICHAEL CALLED AT THIS TIME TO ASSESS PT. RT MICHAEL MADE NO CHANGES TO PT BIPAP. DR. REYNA CALLED AND INFORMED OF PT STATUS. ORDER TO SEND TO ICU. HOUSE SUP NOTIFIED.
[2020-09-07] MEDS: ROSUVASTATIN 5 MG (CRESTOR) TABLET PO SCH (20:21)
[2020-09-07] MEDS: OXYBUTYNIN (DITROPAN) 5 MG TAB PO SCH (20:21)
[2020-09-07] MEDS: MONTELUKAST 10 MG (SINGULAIR) TAB PO SCH (20:21)
[2020-09-07] MEDS: TRIM/SULFAMETH 160/800 (SEPTRA DS) TAB PO SCH (20:21)
[2020-09-07] MEDS: AZITHROMYCIN 250 MG TAB (ZITHROMAX) PO SCH (20:21)
[2020-09-07] MEDS: cefTRIAXone FOR IV USE 2,000 MG in WATER (STERILE) FOR INJECTION 20 ML IV SCH (20:21)
--- NOTE | 2020-09-07 21:50 | NUR ---
PT BEVERLEY CALLED AND UPDATED ON PT STATUS AND INFORMED HE IS ICU 7. STATES UNDERSTANDING.
[2020-09-07 22:01] LABS: ABG OXYGEN SATURATION 92 % (94-100); ABG PCO2 38 MMHG (35-45); ABG PH 7.49 (7.37-7.43); ABG PO2 66 MMHG (79-93); ABG TCO2 29.5 MMOL/L (21.0-31.0)
[2020-09-07 22:05] LABS: ALLENS TEST YES-POS; INSPIRED O2 50%; PATIENT TEMP 37.2; VENTILATOR NO
[2020-09-07] MEDS: ACETAMINOPHEN 325 MG TABLET PO PRN (22:19)
[2020-09-08] VITALS (24 sets, daily range): BP systolic 120–170; BP diastolic 65–102
[2020-09-08] MEDS: RT-ALBUTEROL INHALER HFA (VENTOLIN HFA) 18 GM IH SCH ×6 (01:39→23:02)
[2020-09-08 03:08] LABS: BASOPHILS % (AUTO) 0 % (0-10); EOSINOPHILS % (AUTO) 0 % (0-10); HEMATOCRIT 37 % (40-54); HEMOGLOBIN 12.1 g/dL (13.3-17.7); LYMPHOCYTES # (AUTO) 0.8 10^3/uL (1.0-4.0); LYMPHOCYTES % (AUTO) 6 % (12-44); MEAN CORPUSCULAR HEMOGLOBIN 29 pg (25-34); MEAN CORPUSCULAR HGB CONC 33 g/dL (32-36); MEAN CORPUSCULAR VOLUME 90 fL (80-99); MEAN PLATELET VOLUME 9.6 fL (9.0-12.2); MONOCYTES # (AUTO) 0.7 10^3/uL (0.0-1.0); MONOCYTES % (AUTO) 5 % (0-12); NEUTROPHILS # (AUTO) 11.4 10^3/uL (1.8-7.8); NEUTROPHILS % (AUTO) 88 % (42-75); PLATELET COUNT 294 10^3/uL (130-400); WHITE BLOOD COUNT 12.9 10^3/uL (4.3-11.0)
[2020-09-08 03:25] LABS: POTASSIUM 4.5 MMOL/L (3.6-5.0)
[2020-09-08 03:26] LABS: CALCIUM 9.1 MG/DL (8.5-10.1)
[2020-09-08 03:30] LABS: PHOSPHORUS 3.4 MG/DL (2.3-4.7)
[2020-09-08 03:31] LABS: CREATININE SERUM 1.42 MG/DL (0.60-1.30)
[2020-09-08 03:33] LABS: MAGNESIUM 2.1 MG/DL (1.6-2.4)
[2020-09-08 03:41] LABS: ABG BASE EXCESS 3.9 MMOL/L (-2.5-2.5); ABG OXYGEN SATURATION 91 % (94-100); ABG PCO2 36 MMHG (35-45); ABG PH 7.49 (7.37-7.43); ABG PO2 65 MMHG (79-93); ABG TCO2 28.4 MMOL/L (21.0-31.0); ALLENS TEST YES-POS; INSPIRED O2 50%; PATIENT TEMP 36.9; VENTILATOR NO
--- NOTE | 2020-09-08 04:25 | Pulmonary Progress Note ---
Subjective Time Seen by a Provider: 04:20 Subjective/Events-last exam Pt transferred from 4th floor to ICU last night secondary to worsening resp iratory failure and requiring more oxygen. Sepsis Event Evaluation Height, Weight, BMI Height: 5'9.00" Weight: 400lbs. 0.0oz. 181.557938im; 53.85 BMI Method:Stated Exam Exam Vital Signs Date Time Temp Pulse Resp B/P (MAP) Pulse Ox O2 Delivery O2 Flow Rate FiO2 09/08/20 03:00 74 142/80 (100) 92 NIV Bilevel 50.00 09/08/20 02:11 88 NIV Bilevel 50 09/08/20 02:00 78 17 140/69 (92) 89 NIV Bilevel 50.00 09/08/20 01:39 65 28 92 50.00 09/08/20 01:00 72 24 144/77 (99) 93 NIV Bilevel 50.00 09/08/20 01:00 72 09/08/20 00:00 66 28 128/65 (86) 91 NIV Bilevel 50.00 09/07/20 23:15 70 31 128/78 (95) 92 NIV Bilevel 50.00 09/07/20 23:12 71 32 92 50.00 09/07/20 23:00 65 37 158/82 (107) 91 NIV Bilevel 50.00 09/07/20 22:45 70 32 146/84 (104) 88 NIV Bilevel 50.00 09/07/20 22:30 76 153/93 (113) 91 NIV Bilevel 50.00 09/07/20 22:15 75 12 144/73 (96) 92 NIV Bilevel 50.00 09/07/20 22:00 75 22 157/92 (113) 95 NIV Bilevel 50.00 09/07/20 21:46 37.2 75 25 166/92 (116) 93 NIV Bilevel 50.00 09/07/20 20:00 88 NIV Bilevel 09/07/20 19:00 72 09/07/20 18:41 91 NIV Bilevel 50 09/07/20 18:28 88 38 91 50.00 09/07/20 15:59 36.2 77 32 117/64 (81) 94 NIV Bilevel 50.00 09/07/20 14:30 36.2 83 93 50 09/07/20 13:24 34 50.00 09/07/20 12:15 84 09/07/20 09:59 93 Vapotherm 40.00 70 09/07/20 08:06 36.2 83 42 121/76 (91) 97 NIV Bilevel 09/07/20 08:00 92 Vapotherm 40.00 70 09/07/20 06:34 52 09/07/20 06:31 89 Nasal Cannula 5.00 I & O 09/08/20 07:00 Intake Total 1020 ml Output Total 3650 ml Balance -2630 ml Height & Weight Height: 5'9.00" Weight: 400lbs. 0.0oz. 181.025351ob; 53.85 BMI Method:Stated General Appearance: Chronically ill, Mild Distress, Obese HEENT: PERRL/EOMI, Normal ENT Inspection, Pharynx Normal, Moist Mucous Membranes Neck: Full Range of Motion, Normal Inspection, Non Tender Respiratory: Chest Non Tender, Normal Breath Sounds, No Accessory Muscle Use, No Respiratory Distress, Decreased Breath Sounds Cardiovascular: No Edema, No Gallop, No JVD, No Murmur, Normal Peripheral Pulses, Irregularly Irregular Extremity: Normal Capillary Refill, Normal Inspection, Normal Range of Motion, Non Tender, No Calf Tenderness, No Pedal Edema Neurologic/Psychiatric: Alert, Oriented x3, No Motor/Sensory Deficits, Normal Mood/Affect, supervisor gate services II-XII Norm as Tested Skin: Normal Color, Warm/Dry Lymphatic: No Adenopathy Results Lab Laboratory Tests 09/06/20 05:35 09/07/20 05:58 09/08/20 02:53 Assessment/Plan Assessment/Plan Acute on chronic respiratory failure -PRN BiPAP - currently requiring at 50% COVID 19 PNA -Oxygen -Dx 09/05 -Bipap PRN -Decadron -Rocephin and Azithromycin COPDAE -oxygen -SVNs Acute renal failure -Monitor hx of diastolic CHF -Lasix 80mg BID -Spironolactone IDDM Morbid obesity with JOSE MANUEL -Home CPAP Chronic Afib and CAD -Cardiology following Acute on CKD hx of Cellulitis and abscess of foot GI/DVT ppx -Lovenox 60mg BID -Add PepRAIMUNDO Ramon DO Sep 08, 2020 04:25
[2020-09-08] MEDS: LEVOTHYROXINE 25 MCG (LEVOTHROID) TAB PO SCH (05:54)
[2020-09-08] MEDS: inSUlin ASPART (NovoLOG) 1 UNIT/0.01 ML (CHARGE PER UNIT) SC SCH ×5 (05:54→20:06)
[2020-09-08] MEDS: FUROSEMIDE 40 MG (LASIX) TAB PO SCH ×2 (05:54→18:05)
[2020-09-08] MEDS: dexAMETHasone 6 MG TAB (DECADRON) PO SCH (05:54)
[2020-09-08] MEDS: LORazepam INJ 2 MG/ML (ATIVAN) VIAL IVP PRN (05:58)
--- NOTE | 2020-09-08 06:49 | Occ Therapy Progress Note ---
Therapy Progress Note Due to decrease in pt's medical status, discharge from OT. New orders will be needed when pt is medically stable to tolerate OT. CONNER GUEVARA Sep 08, 2020 06:49
--- NOTE | 2020-09-08 08:24 | Diagnostic Imaging Report ---
INDICATION: Respiratory distress FINDINGS: Progressive and severe 5 lobe infiltrates. Displaced fractured sternal wire fragments unchanged. There is enlargement of the cardiac silhouette unchanged. IMPRESSION: Worsened severe 5 lobe infiltrates. Displaced sternal wire fragments and enlargement of the cardiac silhouette appeared unchanged. Dictated by: Dictated on workstation # [id number]
[2020-09-08] MEDS: ASPIRIN 81 MG CHEW (CHILDREN'S ASA) PO SCH (08:37)
[2020-09-08] MEDS: MAGNESIUM OXIDE (MAG-OX)400 MG TAB PO SCH ×2 (08:37→18:05)
[2020-09-08] MEDS: dilTIAZem120 MG (CARDIZEM CD) CAP PO SCH (08:37)
[2020-09-08] MEDS: FAMOTIDINE 20MG/2ML IV (PEPCID) IV SCH ×2 (08:37→20:05)
[2020-09-08] MEDS: VITAMIN D3 25 MCG (1,000 UNITS) TABLET PO SCH (08:38)
[2020-09-08] MEDS: SENNOSIDES 8.6 MG (SENOKOT) TAB PO SCH ×2 (08:38→20:13)
[2020-09-08] MEDS: FINASTERIDE (PROSCAR) 5 MG TAB PO SCH (08:38)
[2020-09-08] MEDS: TAMSULOSIN 0.4 MG (FLOMAX) CAP PO SCH (08:38)
[2020-09-08] MEDS: SPIRONOLACTONE 25 MG (ALDACTONE) TAB PO SCH ×2 (08:38→20:04)
[2020-09-08] MEDS: METOLAZONE 5 MG (ZAROXOLYN) TAB PO SCH (08:38)
[2020-09-08] MEDS: guaiFENesin (MUCINEX) 600 MG TAB PO SCH (08:38)
[2020-09-08] MEDS: ENOXAPARIN 60 MG/0.6 ML (LOVENOX) SYR SC SCH ×2 (08:38→20:04)
[2020-09-08] MEDS: DOCUSATE SODIUM 100 MG (COLACE) CAP PO SCH ×2 (08:38→20:04)
[2020-09-08] MEDS: KCL 10 MEQ TAB (MICRO K) PO SCH ×4 (08:38→20:05)
--- NOTE | 2020-09-08 12:02 | Progress Note - Hospitalist ---
Subjective HPI/CC On Admission Date Seen by Provider: Sep 08, 2020 Time Seen by Provider: 11:30 CC: Dyspnea due to Covid-19 HPI: This is a 69yoWM clinic pt of [facility] for the past 16 years with a hx of morbid obesity, JOSE MANUEL on BiPAP, Severe COPD from previous smoking, coronary artery bypass graft, AF on chronic oral anticoagulants, and DM out of control with HTN and HLP with chronic renal insufficiency who presents to the [place] [facility] with dyspnea. Wanted to be transferred to [facility], no beds, so he willingly was admitted to [facility]. Dr. Whitney has been consulted, he sees Dr. Colby pulmonology. We are in the midst of getting BiPAP set up for his use and his symptoms began on Sunday. Subjective/Events-last exam Pt having some real difficulties Maintain on BiPAP at 50% Overall doing pretty well otherwise but I told him to try to take is time and not get anxious Checked meds and labs Overall stable Review of Systems General: Fatigue, Malaise Objective Exam Vital Signs Vital Signs Date Time Temp Pulse Resp B/P (MAP) Pulse Ox O2 Delivery O2 Flow Rate FiO2 09/09/20 04:00 82 93 NIV Bilevel 90.00 09/09/20 02:53 100 09/09/20 02:00 29 09/08/20 20:02 36.8 Capillary Refill : General Appearance: No Apparent Distress, WD/WN, Chronically ill Respiratory: Lungs Clear Cardiovascular: Regular Rate, Rhythm Neurologic/Psychiatric: Alert, Oriented x3, No Motor/Sensory Deficits, Normal Mood/Affect Results/Procedures Lab Laboratory Tests 09/09/20 03:33 Patient resulted labs reviewed. Assessment/Plan Assessment and Plan Assess & Plan/Chief Complaint Assessment: COVID-19 PNA Acute hypoxic respiratory failure OHS Hypoxia Chronic respiratory failure maintained on 3L/min O2 at home Severe obesity Severe COPD FOrmer smoker Diastolic dysfunction Chronic AF OAC maintained CRI baseline creat 1.8 DM insulin dependent poor control HTN HLP BPH Chronic UTI Chronic cellulitis of lower extremities Anxiety Severe hypokalemia on large amounts of supplement Hypothyroidism Plan: Pulmo consult Cardiology consult Monitor diabetes Supportive care 09/07/20: biPAP Vapotherm Monitor kidney function Decrease insulin due to hypoglycemia 09/08/20: Monitor closely May need intubation Diagnosis/Problems Diagnosis/Problems (1) Acute respiratory failure due to COVID-19 (2) COPD (chronic obstructive pulmonary disease) with acute bronchitis Status: Acute (3) Congestive heart failure with preserved LV function, NYHA class 3 Status: Acute (4) Obesity hypoventilation syndrome Status: Chronic (5) Chronic atrial fibrillation Status: Chronic (6) JOSE MANUEL (obstructive sleep apnea) Status: Chronic (7) Chronic kidney disease Status: Chronic (8) Essential (primary) hypertension Status: Chronic (9) CAD (coronary artery disease) Status: Chronic (10) Anemia Status: Acute (11) Diabetes mellitus Status: Chronic (12) Hypothyroidism Status: Chronic CHAO PAT DO Sep 08, 2020 12:02
--- NOTE | 2020-09-08 14:22 | Cardiology Progress Note ---
Subjective Date Seen by Provider: Sep 08, 2020 Time Seen by Provider: 14:21 Subjective/Events-last exam c/o dyspnea Objective-Cardiology Exam Last Set of Vital Signs Vital Signs 09/08/20 09/08/20 09/08/20 14:28 15:00 15:29 Temp 36.8 Pulse 84 Resp 48 B/P (MAP) 142/69 (93) Pulse Ox 92 O2 Delivery NIV Bilevel O2 Flow Rate 70.00 FiO2 100 Capillary Refill : I&O Intake and Output 09/08/20 00:00 Intake Total 1620 ml Output Total 4050 ml Balance -2430 ml Intake Oral 1620 ml Output Urine Total 4050 ml # Bowel Movements 3 General: Alert, Mild Distress HEENT: Atraumatic Heart: Other (irregularly irregular) Results Lab Laboratory Tests 09/08/20 02:53 A/P-Cardiology Admission Diagnosis COVID-19 Bilateral pneumonia CAD Chronic afib Assessment/Plan COVID-19 with bilateral pneumonia, management per Dr. Whitney and Dr. Hutton, currently on Vapotherm. Congestive heart failure,chronic diastolic heart failure and cor pulmonale with right-sided heart failure probably secondary to severe COPD. Most recent 2D Echo done Aug 2018 showing mild to moderate TR, PA 40mmHg. Difficult study, u nable to visualize endocardium Chronic permanent atrial fibrillation, diagnosed in 2016, rate controlled. Has been unable to tolerate OAC in the past secondary to hx of GI bleed requiring blood transfusion. Currently on Lovenox and ASA CAD with a h/o CABG in 2006 at [facility] in [place], [place]. On cardiac cath of 11-11-15: Multivessel coronary disease including multiple more than 90% stenosis of the proximal and mid left anterior descending artery. The mid to distal left anterior descending artery is protected with a widely patent left internal mammary artery graft. The left circumflex artery had 99% ostial/proximal stenosis to which successful stenting was carried out with Promus Premier 3.5 x 20 mm stent with a reduction of stenosis to 0% residual. The distal left circumflex and its obtuse marginal branches have diffuse moderate to moderately severe disease which were not intervened on. The right coronary artery is dominant and had 90% proximal stenosis to which successful stenting was carried out with Promus Premier 2.75 x 28 mm stent with reduction of stenosis to 0% residual. The distal right coronary artery has multiple st enoses of 50 to 60%, which were not intervened on. Cardiac cath of 11-11-15 showed well preserved global left ventricular systolic function and ejection fraction of 55 to 60%. Elevated left ventricular end- diastolic pressure which was measured at approximately 20 mmHg. No significant mitral regurgitation. Chronic kidney disease stage 3-4, continue to monitor renal function. Chronic bilat leg swelling, likely due to venous insuff, no evidence of DVT on on venous duplex of 09/13/17, ABIs on 01/13/16 at [facility], [place]: 1.1 on both sides Hypertension, restart home medications and continue to monitor. Asthma - follows with Dr. Cadet as outpatient Quit smoking in early DM II, followed and managed by primary care physician Sleep apnea syndrome - CPAP therapy - managed by Dr. Paris and Dr. Cadet Patient was seen and evaluated with Gwen, examination performed, management plan was discussed, agree with the current scribed note, I made few changes to the note using Italic font Patient was seen at bedside, interrogated today and transferred to the intensive care unit Maintained on BiPAP No arrhythmia was detected, continue to monitor heart rate and blood pressure COVID-19 pneumonia and managed with the dairy equipment mechanic GWEN LIZAMA Sep 08, 2020 2:22 pm CEM COMBS MD Sep 08, 2020 5:07 pm
[2020-09-08] MEDS: ADVAIR HFA 115/21 MCG INHALER 8 GM IH SCH ×2 (14:27→18:43)
[2020-09-08] MEDS: UMECLIDINIUM BROMIDE (INCRUSE ELLIPTA) 7'S IH SCH (14:28)
[2020-09-08] MEDS ORDERED: cefTRIAXone 2 GM/20 ML for IV (ROCEPHIN) ONE (19:28)
[2020-09-08] MEDS ORDERED: WATER (STERILE) FOR INJECTION 20 ML ONE (19:28)
[2020-09-08] MEDS: cefTRIAXone FOR IV USE 2,000 MG in WATER (STERILE) FOR INJECTION 20 ML IV SCH (20:03)
[2020-09-08] MEDS: MONTELUKAST 10 MG (SINGULAIR) TAB PO SCH (20:04)
[2020-09-08] MEDS: OXYBUTYNIN (DITROPAN) 5 MG TAB PO SCH (20:04)
[2020-09-08] MEDS: ROSUVASTATIN 5 MG (CRESTOR) TABLET PO SCH (20:04)
[2020-09-08] MEDS: AZITHROMYCIN 250 MG TAB (ZITHROMAX) PO SCH (20:04)
[2020-09-09] VITALS (28 sets, daily range): BP systolic 121–165; BP diastolic 61–101
[2020-09-09] MEDS: RT-ALBUTEROL INHALER HFA (VENTOLIN HFA) 18 GM IH SCH ×6 (02:53→21:57)
[2020-09-09 03:47] LABS: ABG BASE EXCESS 4.3 MMOL/L (-2.5-2.5); ABG OXYGEN SATURATION 96 % (94-100); ABG PCO2 39 MMHG (35-45); ABG PH 7.47 (7.37-7.43); ABG PO2 83 MMHG (79-93); ABG TCO2 29.2 MMOL/L (21.0-31.0)
[2020-09-09 03:49] LABS: ALLENS TEST YES-POS; INSPIRED O2 100% BIPAP; PATIENT TEMP 36.6; VENTILATOR NO
[2020-09-09] MEDS: LORazepam INJ 2 MG/ML (ATIVAN) VIAL IVP PRN (04:00)
--- NOTE | 2020-09-09 04:24 | Pulmonary Progress Note ---
Subjective Time Seen by a Provider: 04:16 Subjective/Events-last exam Pt appears worse today. He is requiring 100% oxygen via BIPAP. Sepsis Event Evaluation Height, Weight, BMI Height: 5'9.00" Weight: 400lbs. 0.0oz. 181.887143iw; 53.85 BMI Method:Stated Exam Exam Vital Signs Date Time Temp Pulse Resp B/P (MAP) Pulse Ox O2 Delivery O2 Flow Rate FiO2 09/09/20 02:53 90 NIV Bilevel 100 09/09/20 01:00 80 09/08/20 23:02 92 NIV Bilevel 90 09/08/20 23:00 80 32 155/98 (117) 92 NIV Bilevel 90.00 09/08/20 22:34 NIV Bilevel 90.00 09/08/20 22:00 78 28 155/86 (109) 93 NIV Bilevel 70.00 09/08/20 21:00 80 26 163/99 (120) 92 NIV Bilevel 70.00 09/08/20 20:46 92 NIV Bilevel 80 09/08/20 20:02 36.8 84 30 156/87 (110) 90 NIV Bilevel 70.00 09/08/20 19:00 86 46 131/85 (100) 91 NIV Bilevel 70.00 09/08/20 19:00 85 09/08/20 18:43 90 NIV Bilevel 40.00 70 09/08/20 18:00 100 51 157/102 (120) 88 NIV Bilevel 70.00 09/08/20 17:00 71 155/73 (100) 90 NIV Bilevel 70.00 09/08/20 16:00 79 142/84 (103) 88 NIV Bilevel 70.00 09/08/20 15:29 36.8 09/08/20 15:00 84 48 142/69 (93) 92 NIV Bilevel 70.00 09/08/20 14:28 82 Vapotherm 40.00 100 09/08/20 14:00 87 170/93 (118) 90 NIV Bilevel 70.00 09/08/20 13:00 82 23 126/74 (91) 91 NIV Bilevel 70.00 09/08/20 12:49 84 09/08/20 12:00 40 90 09/08/20 12:00 93 120/96 (104) 81 NIV Bilevel 70.00 09/08/20 11:35 36.7 09/08/20 11:00 76 151/93 (112) 93 NIV Bilevel 70.00 09/08/20 10:37 91 45 95 70.00 09/08/20 10:00 77 51 133/69 (90) 92 NIV Bilevel 70.00 09/08/20 09:00 76 162/93 (116) 92 NIV Bilevel 70.00 09/08/20 08:00 36.6 73 40 142/69 (93) 94 NIV Bilevel 70.00 09/08/20 08:00 93 NIV Bilevel 70 09/08/20 07:11 79 52 92 70.00 09/08/20 07:00 81 30 135/72 (93) 87 NIV Bilevel 50.00 09/08/20 06:52 69 09/08/20 06:00 69 147/80 (102) 90 NIV Bilevel 50.00 09/08/20 05:00 64 145/76 (99) 91 NIV Bilevel 50.00 I & O 09/09/20 07:00 Intake Total 570 ml Output Total 3975 ml Balance -3405 ml Height & Weight Height: 5'9.00" Weight: 400lbs. 0.0oz. 181.102180fe; 53.85 BMI Method:Stated General Appearance: WD/WN, Anxious, Chronically ill, Moderate Distress, Obese HEENT: PERRL/EOMI, Normal ENT Inspection, Pharynx Normal, Moist Mucous Membranes Neck: Full Range of Motion, Normal Inspection, Non Tender Respiratory: Accessory Muscle Use, Decreased Breath Sounds Cardiovascular: Regular Rate, Rhythm Extremity: Normal Capillary Refill, Normal Inspection, Normal Range of Motion, Non Tender, No Calf Tenderness, No Pedal Edema Neurologic/Psychiatric: Alert, Oriented x3, No Motor/Sensory Deficits, Normal Mood/Affect Skin: Normal Color, Warm/Dry Lymphatic: No Adenopathy Results Lab Laboratory Tests 09/07/20 05:58 09/08/20 02:53 Assessment/Plan Assessment/Plan Acute on chronic respiratory failure -PRN BiPAP - currently requiring at 100% -Pt will most likely need intubation -CXR appears worse. -Labs reviewed COVID 19 PNA -Oxygen -Dx 09/05 -Bipap PRN -Decadron Secondary bacterial PNA -Change Abx to Merrem x 7-10days and zyvox until MRSA returns -MRSA swab is pending COPDAE -oxygen -SVNs Acute renal failure -Monitor hx of diastolic CHF -Lasix 80mg BID -Spironolactone -Cardiology is following IDDM Morbid obesity with JOSE MANUEL -Home CPAP Chronic Afib and CAD -Cardiology following Acute on CKD hx of Cellulitis and abscess of foot GI/DVT ppx -Lovenox 60mg BID -Add Pepcid I called and discussed with family pt's current condition and prognosis. I answered all questions to the best of my ability. RAIMUNDO MATTHEWS DO Sep 09, 2020 04:24
[2020-09-09 04:25] LABS: BASOPHILS % (AUTO) 0 % (0-10); EOSINOPHILS % (AUTO) 0 % (0-10); HEMATOCRIT 42 % (40-54); HEMOGLOBIN 13.5 g/dL (13.3-17.7); LYMPHOCYTES # (AUTO) 0.8 10^3/uL (1.0-4.0); LYMPHOCYTES % (AUTO) 6 % (12-44); MEAN CORPUSCULAR HEMOGLOBIN 29 pg (25-34); MEAN CORPUSCULAR HGB CONC 32 g/dL (32-36); MEAN CORPUSCULAR VOLUME 91 fL (80-99); MONOCYTES # (AUTO) 0.8 10^3/uL (0.0-1.0); MONOCYTES % (AUTO) 6 % (0-12); NEUTROPHILS # (AUTO) 11.7 10^3/uL (1.8-7.8); NEUTROPHILS % (AUTO) 87 % (42-75); PLATELET COUNT 328 10^3/uL (130-400); WHITE BLOOD COUNT 13.4 10^3/uL (4.3-11.0)
[2020-09-09 04:48] LABS: CREATININE SERUM 1.65 MG/DL (0.60-1.30); MAGNESIUM 2.6 MG/DL (1.6-2.4); PHOSPHORUS 2.8 MG/DL (2.3-4.7); POTASSIUM 4.7 MMOL/L (3.6-5.0)
[2020-09-09] MEDS: MEROPENEM 500 MG in WATER (STERILE) FOR INJECTION 10 ML IV SCH ×4 (06:19→20:14)
[2020-09-09] MEDS: inSUlin ASPART (NovoLOG) 1 UNIT/0.01 ML (CHARGE PER UNIT) SC SCH ×4 (06:19→23:34)
[2020-09-09] MEDS: LEVOTHYROXINE 25 MCG (LEVOTHROID) TAB PO SCH ×2 (06:29→09:13)
[2020-09-09 06:31] LABS: BILIRUBIN,URINE NEGATIVE (NEGATIVE); CLARITY,URINE CLEAR; COLOR,URINE YELLOW; GLUCOSE, URINE (UA) NEGATIVE (NEGATIVE); KETONES,URINE NEGATIVE (NEGATIVE); LEUKOCYTE ESTERASE ,URINE NEGATIVE (NEGATIVE); NITRITE,URINE NEGATIVE (NEGATIVE); PH,URINE 6.5 (5-9); PROTEIN,URINE 2+ (NEGATIVE)
[2020-09-09] MEDS: FUROSEMIDE 40 MG/4 ML INJ (LASIX) IVP SCH ×2 (06:45→17:14)
[2020-09-09 06:47] LABS: BACTERIA,URINE NEGATIVE /HPF; HYALINE CASTS, URINE 25-50 /LPF; SQUAMOUS EPITHELIAL CELL,UR 0-2 /HPF
[2020-09-09] MEDS: ADVAIR HFA 115/21 MCG INHALER 8 GM IH SCH ×2 (07:01→19:28)
[2020-09-09] MEDS: UMECLIDINIUM BROMIDE (INCRUSE ELLIPTA) 7'S IH SCH (07:02)
--- NOTE | 2020-09-09 07:02 | Diagnostic Imaging Report ---
INDICATION: COVID positive. Time of exam 1:40 AM Correlation is made with prior chest 1 day earlier. Extensive bilateral pulmonary infiltrates persist. Heart is enlarged. There are changes of median sternotomy. No effusion or pneumothorax is detected. IMPRESSION: Continued extensive bilateral pulmonary infiltrates consistent with pneumonia. Dictated by: Dictated on workstation # [id number]
[2020-09-09] MEDS ORDERED: PROPOFOL DRIP (ICU) 100 ML IV ONE (08:05)
[2020-09-09] MEDS ORDERED: proPOfol 200 MG/20 ML (DIPRIVAN) VIAL IV ONE (08:05)
--- NOTE | 2020-09-09 08:16 | Pulmonary Progress Note ---
Standard Progress Note Progress Notes Date Seen by Provider: Sep 09, 2020 Time Seen by Provider: 08:11 Called to bedside secondary to worsening SOB and agitation. Pt is pulling at BiPAP and trying to crawl out of bed. Pt is currently requiring BiPAP with 100% Fi02. Assessment & Plan Acute on chronic respiratory failure -Will proceed with intubation. Pt is a full code currently per family. -PRN BiPAP - currently requiring at 100% -Pt will most likely need intubation -CXR appears worse. -Labs reviewed COVID 19 PNA -Oxygen -Dx 09/05 -Bipap PRN -Decadron Secondary bacterial PNA -Change Abx to Merrem x 7-10days and zyvox until MRSA returns -MRSA swab is pending COPDAE -oxygen -SVNs Acute renal failure -Monitor hx of diastolic CHF -Lasix 80mg BID -Spironolactone -Cardiology is following IDDM Morbid obesity with JOSE MANUEL -Home CPAP Chronic Afib and CAD -Cardiology following Acute on CKD hx of Cellulitis and abscess of foot GI/DVT ppx -Lovenox 60mg BID -Add Pepcid I called family again to give them an update. They agree with intubation. I answered all of their questions to the best of by ability. Critical Care: Critically Ill Patient Time spent with patient (mins): 60 RAIMUNDO MATTHEWS DO Sep 09, 2020 08:16
[2020-09-09] MEDS ORDERED: fentaNYL DRIP PRE-MIX 250 ML IV ONE (08:28)
--- NOTE | 2020-09-09 08:34 | Pulmonary Procedures ---
Pulmonary Procedures Date of Procedure Date of Service: Sep 09, 2020 Reason for Intubation: Acute worsening respiratory failure Time of Intubation: 08:34 Intubation Method: orotracheal Tube Size: 8 Medications: Propofol, Rocuronium, Versed Positive End Tide CO2: Yes Breath Sounds after Intubation: bilateral-equal Intubation Complications: no complications Post Intubation Xray: Yes RAIMUNDO MATTHEWS DO Sep 09, 2020 08:34
--- NOTE | 2020-09-09 08:50 | Cardiology Progress Note ---
Subjective Date Seen by Provider: Sep 09, 2020 Time Seen by Provider: 08:48 Subjective/Events-last exam Patient is in bed, worsening dyspnea, possible intubation today Objective-Cardiology Exam Last Set of Vital Signs Vital Signs 09/08/20 09/09/20 09/09/20 09/09/20 20:02 02:53 06:00 07:01 Temp 36.8 Pulse 77 Resp 40 B/P (MAP) 146/72 (96) Pulse Ox 95 O2 Delivery NIV Bilevel O2 Flow Rate 100.00 FiO2 100 Capillary Refill : I&O Intake and Output 09/09/20 00:00 Intake Total 720 ml Output Total 5300 ml Balance -4580 ml Intake Oral 720 ml Output Urine Total 5300 ml General: Alert, Mild Distress HEENT: Atraumatic Heart: Other (controlled rate) Extremities: No Clubbing Skin: No Rashes Results Lab Laboratory Tests 09/09/20 03:33 A/P-Cardiology Admission Diagnosis COVID-19 Bilateral pneumonia CAD Chronic afib Assessment/Plan COVID-19 with bilateral pneumonia, worsening dyspnea today, possible intubation Congestive heart failure,chronic diastolic heart failure and cor pulmonale with right-sided heart failure probably secondary to severe COPD. Most recent 2D Echo done Aug 2018 showing mild to moderate TR, PA 40mmHg. Difficult study, unable to visualize endocardium Chronic permanent atrial fibrillation, diagnosed in 2016, rate controlled. Has been unable to tolerate OAC in the past secondary to hx of GI bleed requiring b lood transfusion. Currently on Lovenox and ASA CAD with a h/o CABG in 2006 at [facility] in [place], [place]. On cardiac cath of 11-11-15: Multivessel coronary disease including multiple more than 90% stenosis of the proximal and mid left anterior descending artery. The mid to distal left anterior descending artery is protected with a widely patent left internal mammary artery graft. The left circumflex artery had 99% ostial/proximal stenosis to which successful stenting was carried out with Promus Premier 3.5 x 20 mm stent with a reduction of stenosis to 0% residual. The distal left circumflex and its obtuse marginal branches have diffuse mo derate to moderately severe disease which were not intervened on. The right coronary artery is dominant and had 90% proximal stenosis to which successful stenting was carried out with Promus Premier 2.75 x 28 mm stent with reduction of stenosis to 0% residual. The distal right coronary artery has multiple stenoses of 50 to 60%, which were not intervened on. Cardiac cath of 11-11-15 showed well preserved global left ventricular systolic function and ejection fraction of 55 to 60%. Elevated left ventricular end- diastolic pressure which was measured at approximately 20 mmHg. No significant mitral regurgitation. Chronic kidney disease stage 3-4, continue to monitor renal function. Chronic bilat leg swelling, likely due to venous insuff, no evidence of DVT on on venous duplex of 09/13/17, ABIs on 01/13/16 at [facility], Hypertension, monitor blood pressure Asthma - follows with Dr. Cadet as outpatient Quit smoking in early DM II, followed and managed by primary care physician Sleep apnea syndrome - CPAP therapy - managed by Dr. Paris and CEM Campoverde MD Sep 09, 2020 08:50
[2020-09-09] MEDS: PROPOFOL DRIP (ICU) 100 ML IV SCH ×6 (08:53→23:35)
[2020-09-09] MEDS: fentaNYL DRIP PRE-MIX 250 ML IV SCH ×2 (08:54→20:37)
[2020-09-09] MEDS ORDERED: LINEZOLID IVPB 300 ML IV SCH (09:00)
--- NOTE | 2020-09-09 09:00 | NUR ---
0800 DR MATTHEWS HERE TO INTUBATE PT. [address] THIS [address] RT AND DR MATTHEWS IN THE ROOM, 4MG IV VERSED GIVEN PER DR MATTHEWS. 0825 100MG PROPOFOL AND 50MG KAUSHAL GIVEN PT INTUBATED BY DR MATTHEWS AT 0826, SIZE 8 ET TUBE, COLOR CHANGE ON CO2 DETECTOR 24 AT THE LIP. NG PLACED AT 0841 XRAY TAKEN AT 0842
[2020-09-09] MEDS: ASPIRIN 81 MG CHEW (CHILDREN'S ASA) PO SCH (09:11)
[2020-09-09] MEDS: guaiFENesin (MUCINEX) 600 MG TAB PO SCH (09:11)
[2020-09-09] MEDS: VITAMIN D3 25 MCG (1,000 UNITS) TABLET PO SCH (09:11)
[2020-09-09] MEDS: MAGNESIUM OXIDE (MAG-OX)400 MG TAB PO SCH ×2 (09:11→17:18)
[2020-09-09] MEDS: KCL 10 MEQ TAB (MICRO K) PO SCH (09:12)
[2020-09-09] MEDS: METOLAZONE 5 MG (ZAROXOLYN) TAB PO SCH (09:12)
[2020-09-09] MEDS: SENNOSIDES 8.6 MG (SENOKOT) TAB PO SCH ×2 (09:12→20:14)
[2020-09-09] MEDS: SPIRONOLACTONE 25 MG (ALDACTONE) TAB PO SCH ×2 (09:12→20:15)
[2020-09-09] MEDS: TAMSULOSIN 0.4 MG (FLOMAX) CAP PO SCH (09:12)
[2020-09-09] MEDS: dilTIAZem120 MG (CARDIZEM CD) CAP PO SCH (09:12)
[2020-09-09] MEDS: DOCUSATE SODIUM 100 MG (COLACE) CAP PO SCH ×2 (09:12→20:15)
[2020-09-09] MEDS: FINASTERIDE (PROSCAR) 5 MG TAB PO SCH (09:13)
[2020-09-09] MEDS: ENOXAPARIN 60 MG/0.6 ML (LOVENOX) SYR SC SCH ×2 (09:14→20:14)
[2020-09-09] MEDS: FAMOTIDINE 20MG/2ML IV (PEPCID) IV SCH ×2 (09:15→20:14)
--- NOTE | 2020-09-09 09:38 | Diagnostic Imaging Report ---
EXAM: CHEST 1 VIEW, AP/PA ONLY INDICATION: Tube placement. COMPARISON: Chest radiograph 09/09/2020 at 1:40 AM.. FINDINGS: New ETT tip between the level of the clavicles and azeem. Diffuse interstitial and airspace opacities are similar to the prior exam. Cardiomegaly. No large pleural effusion or pneumothorax. NG tube tip just below the diaphragm with the side-port in the distal esophagus. This should be advanced. Postoperative changes overlying the mediastinum. IMPRESSION: 1. New ETT tip between the level of the clavicles and azeem. 2. New NG tube tip just below the diaphragm side-port in the distal esophagus. This should be advanced. 3. Stable cardiomegaly and diffuse interstitial and airspace opacities. Dictated by: Dictated on workstation # [id number]
--- NOTE | 2020-09-09 10:05 | NUR ---
NG TUBE ADVANCED PER XRAY REPORT RECOMMENDATIONS.
--- NOTE | 2020-09-09 10:21 | Diagnostic Imaging Report ---
Indication: PICC line placement. Time of exam: 10:10 AM Correlation is made with prior chest from earlier same day. ET tube with tip above the azeem. Changes of median sternotomy. Right upper extremity PICC line has tip overlying SVC right atrial junction. NG tube appears to pass below the diaphragm. Extensive bilateral infiltrates persist and show no real change. There is no effusion or pneumothorax IMPRESSION: Stable bilateral infiltrates since exam earlier same day. Dictated by: Dictated on workstation # [id number]
[2020-09-09 10:46] LABS: ABG OXYGEN SATURATION 97 % (94-100); ABG PCO2 49 MMHG (35-45); ABG PH 7.37 (7.37-7.43); ABG PO2 89 MMHG (79-93); ABG TCO2 29.7 MMOL/L (21.0-31.0)
[2020-09-09 10:48] LABS: ALLENS TEST YES-POS; INSPIRED O2 100%; PATIENT TEMP 96.2; VENTILATOR YES
[2020-09-09] MEDS ORDERED: MIDAZOLAM 5 MG/5 ML (VERSED) VIAL IJ ONE (13:24)
[2020-09-09] MEDS ORDERED: fentaNYL INJECTION 100 MCG/2 ML AMP IV ONE (13:24)
[2020-09-09] MEDS ORDERED: ROCURONIUM 10 MG/ML 5 ML SYRINGE IV ONE (13:26)
[2020-09-09] MEDS: POTASSIUM BICARB 20 MEQ (EFFER-K) TABLET PO SCH ×3 (13:49→20:14)
--- NOTE | 2020-09-09 16:57 | NUR ---
Note pt was intubated earlier today. If pt is to remain NPO for more than 3days, would recommend initiation of TF of Pulmocare via 60ml bolus feeds q4h with 30ml free water flushes before/after each bolus. Recommend increase TF by 30ml q8h as tolerated toward goal of 200ml bolus feeds q4h. Will continue to follow and reassess as pt needs, intake, and status change. Bryce Rasheed, MS RD LD [phone] cell
[2020-09-09] MEDS: OXYBUTYNIN (DITROPAN) 5 MG TAB PO SCH (20:14)
[2020-09-09] MEDS: ROSUVASTATIN 5 MG (CRESTOR) TABLET PO SCH (20:14)
[2020-09-09] MEDS: MONTELUKAST 10 MG (SINGULAIR) TAB PO SCH (20:15)
[2020-09-09] MEDS: guaiFENesin SYRUP 100 MG/5 ML 10 ML (ROBITUSSIN SF) PO SCH (20:15)
[2020-09-10] VITALS (30 sets, daily range): BP systolic 111–156; BP diastolic 73–105
[2020-09-10] MEDS: PROPOFOL DRIP (ICU) 100 ML IV SCH ×8 (01:37→23:39)
[2020-09-10] MEDS: RT-ALBUTEROL INHALER HFA (VENTOLIN HFA) 18 GM IH SCH ×6 (02:15→21:26)
[2020-09-10 02:51] LABS: BASOPHILS % (AUTO) 0 % (0-10); EOSINOPHILS % (AUTO) 0 % (0-10); HEMATOCRIT 42 % (40-54); HEMOGLOBIN 13.2 g/dL (13.3-17.7); LYMPHOCYTES # (AUTO) 0.7 10^3/uL (1.0-4.0); LYMPHOCYTES % (AUTO) 6 % (12-44); MEAN CORPUSCULAR HEMOGLOBIN 29 pg (25-34); MEAN CORPUSCULAR HGB CONC 32 g/dL (32-36); MEAN CORPUSCULAR VOLUME 91 fL (80-99); MEAN PLATELET VOLUME 10.1 fL (9.0-12.2); MONOCYTES # (AUTO) 0.8 10^3/uL (0.0-1.0); MONOCYTES % (AUTO) 7 % (0-12); NEUTROPHILS # (AUTO) 9.7 10^3/uL (1.8-7.8); NEUTROPHILS % (AUTO) 86 % (42-75); PLATELET COUNT 321 10^3/uL (130-400); WHITE BLOOD COUNT 11.2 10^3/uL (4.3-11.0)
[2020-09-10 02:52] LABS: ABG BASE EXCESS 3.7 MMOL/L (-2.5-2.5); ABG OXYGEN SATURATION 78 % (94-100); ABG PCO2 60 MMHG (35-45); ABG PO2 54 MMHG (79-93); ABG TCO2 31.5 MMOL/L (21.0-31.0); ALLENS TEST POSITIVE; INSPIRED O2 100; PATIENT TEMP 36.4; VENTILATOR YES
[2020-09-10 02:53] LABS: ABG PH 7.31 (7.37-7.43)
[2020-09-10 03:20] LABS: POTASSIUM 4.4 MMOL/L (3.6-5.0)
[2020-09-10 03:21] LABS: CALCIUM 9.5 MG/DL (8.5-10.1)
[2020-09-10 03:25] LABS: CREATININE SERUM 1.82 MG/DL (0.60-1.30); PHOSPHORUS 5.6 MG/DL (2.3-4.7)
[2020-09-10 03:27] LABS: MAGNESIUM 2.6 MG/DL (1.6-2.4)
--- NOTE | 2020-09-10 05:11 | Pulmonary Progress Note ---
Subjective Time Seen by a Provider: 05:06 Subjective/Events-last exam Pt is sedated on vent. Sepsis Event Evaluation Height, Weight, BMI Height: 5'9.00" Weight: 400lbs. 0.0oz. 181.776443sw; 53.85 BMI Method:Stated Exam Exam Vital Signs Date Time Temp Pulse Resp B/P (MAP) Pulse Ox O2 Delivery O2 Flow Rate FiO2 09/10/20 04:51 61 09/10/20 04:00 61 32 122/78 (93) 94 Mechanical Ventilator 100.00 09/10/20 03:00 68 32 124/79 (94) 93 Mechanical Ventilator 100.00 09/10/20 02:16 65 24 91 100 09/10/20 02:00 62 18 121/74 (90) 95 Mechanical Ventilator 100.00 09/10/20 02:00 100.00 09/10/20 01:37 64 09/10/20 01:00 69 27 122/77 (92) 92 Mechanical Ventilator 75.00 09/10/20 01:00 70 09/10/20 00:00 71 16 123/78 (93) 92 Mechanical Ventilator 75.00 09/09/20 23:38 36.4 Mechanical Ventilator 75.00 09/09/20 23:35 72 09/09/20 23:00 68 16 124/82 (96) 92 Mechanical Ventilator 80.00 09/09/20 22:00 67 18 128/84 (99) 95 Mechanical Ventilator 80.00 09/09/20 21:57 75 28 93 80 09/09/20 21:00 70 17 126/75 (92) 92 Mechanical Ventilator 80.00 09/09/20 20:15 92 Mechanical Ventilator 80 09/09/20 20:12 73 09/09/20 20:00 35.8 Mechanical Ventilator 80.00 09/09/20 20:00 66 11 126/84 (98) 92 Mechanical Ventilator 80.00 09/09/20 19:31 67 27 96 80 09/09/20 19:28 68 30 95 100 09/09/20 19:00 70 123/79 (94) 96 Mechanical Ventilator 100.00 09/09/20 19:00 77 09/09/20 18:00 68 24 121/78 (92) 95 Mechanical Ventilator 100.00 09/09/20 17:14 123/74 09/09/20 17:00 73 127/79 (95) 95 Mechanical Ventilator 100.00 09/09/20 16:00 36.0 09/09/20 16:00 71 125/78 (94) 96 Mechanical Ventilator 100.00 09/09/20 15:00 68 122/83 (96) 95 Mechanical Ventilator 100.00 09/09/20 14:48 68 32 90 100 09/09/20 14:00 66 126/82 (97) 96 Mechanical Ventilator 100.00 09/09/20 13:55 126/78 09/09/20 13:00 61 123/79 (94) 96 Mechanical Ventilator 100.00 09/09/20 12:40 63 09/09/20 12:00 66 126/81 (96) 94 Mechanical Ventilator 100.00 09/09/20 12:00 35.0 09/09/20 11:51 62 126/85 09/09/20 11:00 66 128/84 (99) 86 Mechanical Ventilator 100.00 09/09/20 10:41 66 34 93 100 09/09/20 10:00 71 128/86 (100) 95 Mechanical Ventilator 100.00 09/09/20 09:00 80 137/86 (103) 95 Mechanical Ventilator 100.00 09/09/20 08:53 147/93 09/09/20 08:26 Mechanical Ventilator 100.00 09/09/20 08:00 87 45 165/76 (105) NIV Bilevel 90.00 09/09/20 08:00 90 NIV Bilevel 100 09/09/20 07:01 77 40 95 100.00 09/09/20 07:00 64 138/101 (113) 93 NIV Bilevel 90.00 09/09/20 06:43 85 09/09/20 06:00 71 146/72 (96) 91 NIV Bilevel 90.00 I & O 09/10/20 07:00 Intake Total 1110 ml Output Total 1750 ml Balance -640 ml Height & Weight Height: 5'9.00" Weight: 400lbs. 0.0oz. 181.189597xe; 53.85 BMI Method:Stated General Appearance: No Apparent Distress, WD/WN, Chronically ill HEENT: PERRL/EOMI, Normal ENT Inspection, Pharynx Normal, Moist Mucous Membranes Neck: Full Range of Motion, Normal Inspection, Non Tender Respiratory: Lungs Clear Cardiovascular: Regular Rate, Rhythm Extremity: Normal Capillary Refill, Normal Inspection, Normal Range of Motion, Non Tender, No Calf Tenderness, No Pedal Edema Neurologic/Psychiatric: No Motor/Sensory Deficits, Normal Mood/Affect Skin: Normal Color, Warm/Dry Lymphatic: No Adenopathy Results Lab Laboratory Tests 09/09/20 03:33 09/10/20 02:30 Assessment/Plan Assessment/Plan Acute on chronic respiratory failure with ARDS secondary to COVID -PRN BiPAP - currently requiring at 100% -Propofol 40, Fentanyl 150 -450/24/12/ 100% -CXR appears worse. -Labs reviewed -Continue proning COVID 19 PNA -Continue Merrem -Oxygen -Dx 09/05 -Bipap PRN -Decadron Hyperglycemia -Increase Levemir to 42 Units BID -Continue SSI C -Increase Accu Checks to Q 4 Secondary bacterial PNA -Change Abx to Merrem x 7-10days and zyvox until MRSA returns -MRSA swab is pending COPDAE -oxygen -SVNs Acute renal failure - Worsening with hyperphos -Start PHOSLO -Hold Lasix -Monitor hx of diastolic CHF -Lasix 80mg BID -- Hold Lasix -Spironolactone -- Hold -Cardiology is following IDDM Morbid obesity with JOSE MANUEL -Home CPAP Chronic Afib and CAD -Cardiology following Acute on CKD hx of Cellulitis and abscess of foot GI/DVT ppx -Lovenox 60mg BID -Add Pepcid Pt's prognosis is very poor. RAIMUNDO MATTHEWS DO Sep 10, 2020 05:11
[2020-09-10] MEDS: MEROPENEM 500 MG in WATER (STERILE) FOR INJECTION 10 ML IV SCH ×4 (05:54→22:21)
[2020-09-10] MEDS: inSUlin ASPART (NovoLOG) 1 UNIT/0.01 ML (CHARGE PER UNIT) SC SCH ×6 (05:54→23:30)
[2020-09-10] MEDS: LEVOTHYROXINE 25 MCG (LEVOTHROID) TAB PO SCH (05:54)
[2020-09-10] MEDS: fentaNYL DRIP PRE-MIX 250 ML IV SCH ×3 (06:00→21:02)
[2020-09-10] MEDS: LACTATED RINGERS 1,000 ML IV SCH ×2 (06:00→21:02)
--- NOTE | 2020-09-10 06:12 | Diagnostic Imaging Report ---
Portable erect AP chest at 137 hours. INDICATION: Respiratory distress, Covid. FINDINGS: The cardiomegaly and the sternal wires and surgical clips noted on the prior exam of 09/09/2020 are again evident and no different. There is a poor inspiratory effort on this exam compared to the prior study. However, even allowing for this technical factor, the appearance of the chest has worsened as there does appear to be greater involvement of the right mid lung and right upper lobe by pneumonia/atelectasis. The left lower lobe pneumonia/atelectasis seen previously may also be somewhat greater. The mediastinum is not widened. The osseous structures are intact. The supportive tubes and lines seem to be similar in position. IMPRESSION: The appearance of the chest has worsened since the prior exam as there is greater involvement of the right lung and to a lesser extent the left lung base by pneumonia/atelectasis. A follow-up exam would be recommended for continued evaluation. Dictated by: Dictated on workstation # [id number]
[2020-09-10] MEDS: ADVAIR HFA 115/21 MCG INHALER 8 GM IH SCH ×2 (07:23→21:26)
[2020-09-10] MEDS: UMECLIDINIUM BROMIDE (INCRUSE ELLIPTA) 7'S IH SCH (07:23)
[2020-09-10 07:37] LABS: ABG BASE EXCESS 2.4 MMOL/L (-2.5-2.5); ABG OXYGEN SATURATION 100 % (94-100); ABG PCO2 56 MMHG (35-45); ABG PO2 220 MMHG (79-93)
[2020-09-10 07:39] LABS: ABG PH 7.32 (7.37-7.43); ALLENS TEST YES-POS
[2020-09-10 07:40] LABS: INSPIRED O2 100%; PATIENT TEMP 36.2; VENTILATOR YES
[2020-09-10] MEDS: DOCUSATE SODIUM 100 MG (COLACE) CAP PO SCH ×2 (08:26→20:04)
[2020-09-10] MEDS: FINASTERIDE (PROSCAR) 5 MG TAB PO SCH (08:26)
[2020-09-10] MEDS: TAMSULOSIN 0.4 MG (FLOMAX) CAP PO SCH (08:26)
[2020-09-10] MEDS: SENNOSIDES 8.6 MG (SENOKOT) TAB PO SCH ×2 (08:26→20:03)
[2020-09-10] MEDS: CALCIUM ACETATE 667 MG CAP (PHOSLO) PO SCH ×3 (08:26→17:16)
[2020-09-10] MEDS: guaiFENesin SYRUP 100 MG/5 ML 10 ML (ROBITUSSIN SF) PO SCH ×2 (08:26→20:04)
[2020-09-10] MEDS: ENOXAPARIN 60 MG/0.6 ML (LOVENOX) SYR SC SCH ×2 (08:26→20:03)
[2020-09-10] MEDS: FAMOTIDINE 20MG/2ML IV (PEPCID) IV SCH ×2 (08:26→20:03)
[2020-09-10] MEDS: VITAMIN D3 25 MCG (1,000 UNITS) TABLET PO SCH (08:26)
[2020-09-10] MEDS: MAGNESIUM OXIDE (MAG-OX)400 MG TAB PO SCH ×2 (08:26→17:16)
[2020-09-10] MEDS: ASPIRIN 81 MG CHEW (CHILDREN'S ASA) PO SCH (08:26)
[2020-09-10] MEDS: dilTIAZem120 MG (CARDIZEM CD) CAP PO SCH (08:27)
[2020-09-10] MEDS: POTASSIUM BICARB 20 MEQ (EFFER-K) TABLET PO SCH (08:27)
--- NOTE | 2020-09-10 10:14 | Cardiology Progress Note ---
Subjective Date Seen by Provider: Sep 10, 2020 Time Seen by Provider: 10:12 Subjective/Events-last exam Patient is intubated and sedated Review of Systems General: Other (unable to provide review of systems) Objective-Cardiology Exam Last Set of Vital Signs Vital Signs 09/10/20 09/10/20 09/10/20 08:00 08:57 09:00 Temp 36.4 Pulse 50 Resp 38 B/P (MAP) 120/77 (91) Pulse Ox 98 O2 Delivery Mechanical Ventilator O2 Flow Rate 100.00 FiO2 100 Capillary Refill : I&O Intake and Output 09/10/20 00:00 Intake Total 910 ml Output Total 2250 ml Balance -1340 ml Intake Oral 0 ml IV Total 550 ml Other 360 ml Output Urine Total 2150 ml Gastric Drainage Total 100 ml General: Mild Distress, Other (sedated and intubated) HEENT: Atraumatic Heart: Other (controlled rate) Extremities: No Clubbing Skin: No Rashes Neuro: Other (sedated and intubated) Psych/Mental Status: Other (sedated and intubated) Results Lab Laboratory Tests 09/10/20 02:30 A/P-Cardiology Admission Diagnosis COVID-19 Bilateral pneumonia CAD Chronic afib Assessment/Plan Acute respiratory failure, COVID-19 pneumonia, deteriorated, currently intubated and ventilator dependent, managed by primary care team Congestive heart failure,chronic diastolic heart failure and cor pulmonale with right-sided heart failure probably secondary to severe COPD. Most recent 2D Echo done Aug 2018 showing mild to moderate TR, PA 40mmHg. Difficult study, unable to visualize endocardium Chronic permanent atrial fibrillation, diagnosed in 2016, rate controlled. Has been unable to tolerate OAC in the past secondary to hx of GI bleed requiring blood transfusion. Currently on Lovenox and ASA CAD with a h/o CABG in 2006 at [facility] in [place], [place]. On cardiac cath of 11-11-15: Multivessel coronary disease including multiple more than 90% stenosis of the proximal and mid left anterior descending artery. The mid to distal left anterior descending artery is protected with a widely patent left internal mammary artery graft. The left circumflex artery had 99% ostial/proximal stenosis to which successful stenting was carried out with Promus Premier 3.5 x 20 mm stent with a reduction of stenosis to 0% residual. The distal left circumflex and its obtuse marginal branches have diffuse moderate to moderately severe disease which were not intervened on. The right coronary artery is dominant and had 90% proximal stenosis to which successful stenting was carried out with Promus Premier 2.75 x 28 mm stent with reduction of stenosis to 0% residual. The distal right coronary artery has multiple stenoses of 50 to 60%, which were not intervened on. Cardiac cath of 11-11-15 showed well preserved global left ventricular systolic f unction and ejection fraction of 55 to 60%. Elevated left ventricular end- diastolic pressure which was measured at approximately 20 mmHg. No significant mitral regurgitation. Chronic kidney disease stage 3-4, continue to monitor renal function. Chronic bilat leg swelling, likely due to venous insuff, no evidence of DVT on on venous duplex of 09/13/17, ABIs on 01/13/16 at [facility], Hypertension, monitor blood pressure Asthma - follows with Dr. Cadet as outpatient Quit smoking in early DM II, followed and managed by primary care physician Sleep apnea syndrome - CPAP therapy - managed by Dr. Paris and CEM Campoverde MD Sep 10, 2020 10:14
[2020-09-10] MEDS: MONTELUKAST 10 MG (SINGULAIR) TAB PO SCH (20:03)
[2020-09-10] MEDS: OXYBUTYNIN (DITROPAN) 5 MG TAB PO SCH (20:04)
[2020-09-11] VITALS (31 sets, daily range): BP systolic 123–156; BP diastolic 73–91
[2020-09-11] MEDS: RT-ALBUTEROL INHALER HFA (VENTOLIN HFA) 18 GM IH SCH ×6 (01:04→21:49)
[2020-09-11 01:49] LABS: BASOPHILS % (AUTO) 0 % (0-10); EOSINOPHILS % (AUTO) 0 % (0-10); HEMATOCRIT 39 % (40-54); HEMOGLOBIN 12.8 g/dL (13.3-17.7); LYMPHOCYTES % (AUTO) 8 % (12-44); MEAN CORPUSCULAR HEMOGLOBIN 30 pg (25-34); MEAN CORPUSCULAR HGB CONC 33 g/dL (32-36); MEAN CORPUSCULAR VOLUME 91 fL (80-99); MEAN PLATELET VOLUME 10.4 fL (9.0-12.2); MONOCYTES # (AUTO) 0.8 10^3/uL (0.0-1.0); MONOCYTES % (AUTO) 7 % (0-12); NEUTROPHILS # (AUTO) 10.5 10^3/uL (1.8-7.8); NEUTROPHILS % (AUTO) 84 % (42-75); PLATELET COUNT 339 10^3/uL (130-400); WHITE BLOOD COUNT 12.5 10^3/uL (4.3-11.0)
[2020-09-11 02:03] LABS: ABG OXYGEN SATURATION 97 % (94-100); ABG PCO2 55 MMHG (35-45); ABG PO2 87 MMHG (79-93); ABG TCO2 31.3 MMOL/L (21.0-31.0)
[2020-09-11 02:04] LABS: ALLENS TEST POSITIVE; INSPIRED O2 60; PATIENT TEMP 36; VENTILATOR YES
[2020-09-11 02:05] LABS: ABG PH 7.34 (7.37-7.43)
[2020-09-11 02:09] LABS: CALCIUM 8.2 MG/DL (8.5-10.1)
[2020-09-11 02:13] LABS: CREATININE SERUM 1.49 MG/DL (0.60-1.30); PHOSPHORUS 3.9 MG/DL (2.3-4.7)
[2020-09-11 02:16] LABS: MAGNESIUM 2.7 MG/DL (1.6-2.4)
[2020-09-11] MEDS: inSUlin ASPART (NovoLOG) 1 UNIT/0.01 ML (CHARGE PER UNIT) SC SCH ×6 (03:44→23:32)
[2020-09-11] MEDS: PROPOFOL DRIP (ICU) 100 ML IV SCH (03:45)
[2020-09-11] MEDS: LEVOTHYROXINE 25 MCG (LEVOTHROID) TAB PO SCH (03:45)
[2020-09-11] MEDS: MEROPENEM 500 MG in WATER (STERILE) FOR INJECTION 10 ML IV SCH ×4 (03:45→22:39)
--- NOTE | 2020-09-11 04:45 | Pulmonary Progress Note ---
Subjective Time Seen by a Provider: 04:39 Subjective/Events-last exam Pt is sedated on vent. Sepsis Event Evaluation Height, Weight, BMI Height: 5'9.00" Weight: 400lbs. 0.0oz. 181.875349sp; 53.85 BMI Method:Stated Exam Exam Vital Signs Date Time Temp Pulse Resp B/P (MAP) Pulse Ox O2 Delivery O2 Flow Rate FiO2 09/11/20 03:50 35.1 Mechanical Ventilator 50.00 09/11/20 03:45 64 123/83 09/11/20 01:04 71 28 96 60 09/10/20 23:39 60 135/84 09/10/20 23:08 35.9 09/10/20 23:00 64 27 133/86 (102) 96 Mechanical Ventilator 60.00 09/10/20 22:00 65 28 132/87 (102) 95 Mechanical Ventilator 60.00 09/10/20 21:27 66 28 94 60 09/10/20 21:01 64 139/93 09/10/20 21:00 68 28 135/90 (105) 95 Mechanical Ventilator 60.00 09/10/20 20:00 59 28 139/90 (106) 94 Mechanical Ventilator 60.00 09/10/20 19:40 95 Mechanical Ventilator 60 09/10/20 19:35 Mechanical Ventilator 60.00 09/10/20 19:22 35.9 09/10/20 19:06 58 28 95 80 09/10/20 19:00 62 27 137/94 (108) 95 Mechanical Ventilator 60.00 09/10/20 19:00 65 09/10/20 18:00 63 27 137/87 (104) 93 Mechanical Ventilator 60.00 09/10/20 17:17 60 133/85 09/10/20 17:00 60 28 133/85 (101) 95 Mechanical Ventilator 60.00 09/10/20 16:00 65 21 133/91 (105) 91 Mechanical Ventilator 60.00 09/10/20 15:25 35.5 09/10/20 15:00 62 8 134/86 (102) 92 Mechanical Ventilator 60.00 09/10/20 14:57 Mechanical Ventilator 60.00 09/10/20 14:50 60 28 98 80 09/10/20 14:30 55 126/84 09/10/20 14:00 55 28 126/84 (98) 98 Mechanical Ventilator 80.00 09/10/20 13:00 54 09/10/20 13:00 58 28 131/85 (100) 98 Mechanical Ventilator 80.00 09/10/20 12:31 55 154/103 09/10/20 12:00 55 28 154/103 (120) 98 Mechanical Ventilator 80.00 09/10/20 11:00 57 27 156/105 (122) 98 Mechanical Ventilator 80.00 09/10/20 10:30 61 128/87 09/10/20 10:29 Mechanical Ventilator 80.00 09/10/20 10:14 61 28 98 100 09/10/20 10:00 52 117/78 (91) 98 Mechanical Ventilator 100.00 09/10/20 09:00 50 120/77 (91) 98 Mechanical Ventilator 100.00 09/10/20 08:57 36.4 09/10/20 08:00 60 38 123/81 (95) 98 Mechanical Ventilator 100.00 09/10/20 08:00 94 Mechanical Ventilator 100 09/10/20 07:23 54 28 98 100 09/10/20 07:00 60 38 111/78 (89) 98 Mechanical Ventilator 100.00 09/10/20 07:00 58 09/10/20 06:00 54 28 120/74 (89) 97 Mechanical Ventilator 100.00 09/10/20 05:47 36.2 Mechanical Ventilator 100.00 09/10/20 05:00 65 26 116/78 (91) 94 Mechanical Ventilator 100.00 09/10/20 04:51 61 I & O 09/11/20 07:00 Intake Total 2380 ml Output Total 1000 ml Balance 1380 ml Height & Weight Height: 5'9.00" Weight: 400lbs. 0.0oz. 181.380989mi; 53.85 BMI Method:Stated General Appearance: No Apparent Distress, WD/WN, Chronically ill HEENT: PERRL/EOMI, Normal ENT Inspection, Pharynx Normal, Moist Mucous Membranes Neck: Full Range of Motion, Normal Inspection, Non Tender Respiratory: Lungs Clear Cardiovascular: Regular Rate, Rhythm Extremity: Normal Capillary Refill, Normal Inspection, Normal Range of Motion, Non Tender, No Calf Tenderness, No Pedal Edema Neurologic/Psychiatric: No Motor/Sensory Deficits, Normal Mood/Affect Skin: Normal Color, Warm/Dry Lymphatic: No Adenopathy Results Lab Laboratory Tests 09/10/20 02:30 09/11/20 01:20 Assessment/Plan Assessment/Plan Acute on chronic respiratory failure with ARDS secondary to COVID -PRN BiPAP - currently requiring at 100% -Propofol 40, Fentanyl 150 -450/24/12/ 100% -CXR appears worse. -Labs reviewed -Continue proning Hypertryglycerides -D/C propofol and add Versed COVID 19 PNA -Continue Merrem -Oxygen -Dx 09/05 -Bipap PRN -Decadron Hyperglycemia -Increase Levemir to 42 Units BID -Continue SSI C -Increase Accu Checks to Q 4 Secondary bacterial PNA -Change Abx to Merrem x 7-10days and zyvox until MRSA returns -MRSA swab is pending COPDAE -oxygen -SVNs Acute renal failure - Worsening with hyperphos -Start PHOSLO -Hold Lasix -Monitor hx of diastolic CHF -Lasix 80mg BID -- Hold Lasix -Spironolactone -- Hold -Cardiology is following IDDM Morbid obesity with JOSE MANUEL -Home CPAP Chronic Afib and CAD -Cardiology following Acute on CKD hx of Cellulitis and abscess of foot GI/DVT ppx -Lovenox 60mg BID -Add Pepcid Pt's prognosis is very poor. RAIMUNDO MATTHEWS DO Sep 11, 2020 04:45
[2020-09-11] MEDS: MIDAZOLAM DRIP PRE-MIX 100 ML IV SCH ×2 (05:37→22:40)
[2020-09-11] MEDS: fentaNYL DRIP PRE-MIX 250 ML IV SCH ×4 (06:14→22:40)
[2020-09-11] MEDS: ADVAIR HFA 115/21 MCG INHALER 8 GM IH SCH ×2 (07:21→18:38)
--- NOTE | 2020-09-11 07:37 | Diagnostic Imaging Report ---
EXAMINATION: Chest 1 view HISTORY: Covid 19 COMPARISON: 09/10/2020 FINDINGS: Endotracheal tube tip terminates 6 cm above the azeem. Gastric tube tip terminates below the field of view. Median sternotomy wires are fractured and malaligned suggestive of sternal dehiscence. Heart size is enlarged. There are moderate severe bilateral interstitial and airspace opacities. No pneumothorax. No pleural effusion. IMPRESSION: 1. Moderate to severe bilateral interstitial and airspace opacities consistent with Covid 19. 2. Fractured and malaligned median sternotomy wires suggestive of sternal dehiscence. Dictated by: Dictated on workstation # [id number]
[2020-09-11] MEDS: CALCIUM ACETATE 667 MG CAP (PHOSLO) PO SCH ×3 (08:58→17:55)
[2020-09-11] MEDS: MAGNESIUM OXIDE (MAG-OX)400 MG TAB PO SCH ×2 (08:58→17:55)
[2020-09-11] MEDS: FINASTERIDE (PROSCAR) 5 MG TAB PO SCH (08:59)
[2020-09-11] MEDS: VITAMIN D3 25 MCG (1,000 UNITS) TABLET PO SCH (08:59)
[2020-09-11] MEDS: ASPIRIN 81 MG CHEW (CHILDREN'S ASA) PO SCH (08:59)
[2020-09-11] MEDS: TAMSULOSIN 0.4 MG (FLOMAX) CAP PO SCH (08:59)
[2020-09-11] MEDS: SENNOSIDES 8.6 MG (SENOKOT) TAB PO SCH ×2 (08:59→20:03)
[2020-09-11] MEDS: FAMOTIDINE 20MG/2ML IV (PEPCID) IV SCH ×2 (08:59→20:03)
[2020-09-11] MEDS: guaiFENesin SYRUP 100 MG/5 ML 10 ML (ROBITUSSIN SF) PO SCH ×2 (08:59→20:03)
[2020-09-11] MEDS: DOCUSATE SODIUM 100 MG (COLACE) CAP PO SCH ×2 (08:59→20:03)
[2020-09-11] MEDS: ENOXAPARIN 60 MG/0.6 ML (LOVENOX) SYR SC SCH ×2 (08:59→20:03)
[2020-09-11] MEDS: dilTIAZem120 MG (CARDIZEM CD) CAP PO SCH (09:00)
--- NOTE | 2020-09-11 10:43 | Cardiology Progress Note ---
Subjective Date Seen by Provider: Sep 11, 2020 Time Seen by Provider: 10:42 Subjective/Events-last exam Patient was seen at bedside, laying down, sedated and intubated Review of Systems General: Other (unable to provide review of systems) Objective-Cardiology Exam Last Set of Vital Signs Vital Signs 09/11/20 09/11/20 09/11/20 08:55 09:00 09:03 Temp 36.2 Pulse 80 Resp 31 B/P (MAP) 139/81 (100) Pulse Ox 91 O2 Delivery Mechanical Ventilator O2 Flow Rate 50.00 FiO2 50 Capillary Refill : I&O Intake and Output 09/11/20 00:00 Intake Total 2790 ml Output Total 1425 ml Balance 1365 ml Intake Oral 0 ml IV Total 2550 ml Other 240 ml Output Urine Total 925 ml Gastric Drainage Total 500 ml General: Mild Distress, Other (sedated and intubated) HEENT: Atraumatic Heart: Other (controlled rate) Extremities: No Clubbing Skin: No Rashes Neuro: Other (sedated and intubated) Psych/Mental Status: Other (sedated and intubated) Results Lab Laboratory Tests 09/11/20 01:20 A/P-Cardiology Admission Diagnosis COVID-19 Bilateral pneumonia CAD Chronic afib Assessment/Plan Acute respiratory failure, COVID-19 pneumonia, deteriorated, currently intubated and ventilator dependent, managed by primary care team Congestive heart failure,chronic diastolic heart failure and cor pulmonale with right-sided heart failure probably secondary to severe COPD. Most recent 2D E cho done Aug 2018 showing mild to moderate TR, PA 40mmHg. Difficult study, unable to visualize endocardium Chronic permanent atrial fibrillation, diagnosed in 2016, rate controlled. Has been unable to tolerate OAC in the past secondary to hx of GI bleed requiring blood transfusion. Currently on Lovenox and ASA CAD with a h/o CABG in 2006 at [facility] in [place], [place]. On cardiac cath of 11-11-15: Multivessel coronary disease including multiple more than 90% stenosis of the proximal and mid left anterior descending artery. The mid to distal left anterior descending artery is protected with a widely patent left internal mammary artery graft. The left circumflex artery had 99% ostial/proximal stenosis to which successful stenting was carried out with Promus Premier 3.5 x 20 mm stent with a reduction of stenosis to 0% residual. The distal left circumflex and its obtuse marginal branches have diffuse moderate to moderately severe disease which were not intervened on. The right coronary artery is dominant and had 90% proximal stenosis to which successful stenting was carried out with Promus Premier 2.75 x 28 mm stent with reduction of stenosis to 0% residual. The distal right coronary artery has multiple stenoses of 50 to 60%, which were not intervened on. Cardiac cath of 11-11-15 showed well preserved global left ventricular systolic function and ejection fraction of 55 to 60%. Elevated left ventricular end- diastolic pressure which was measured at approximately 20 mmHg. No significant mitral regurgitation. Chronic kidney disease stage 3-4, continue to monitor renal function. Chronic bilat leg swelling, likely due to venous insuff, no evidence of DVT on on venous duplex of 09/13/17, ABIs on 01/13/16 at [facility], Hypertension, monitor blood pressure Asthma - follows with Dr. Cadet as outpatient Quit smoking in early DM II, followed and managed by primary care physician Sleep apnea syndrome - CPAP therapy - managed by Dr. Paris and Dr. Cadet Overall poor prognosis CEM COMBS MD Sep 11, 2020 10:42
[2020-09-11] MEDS: UMECLIDINIUM BROMIDE (INCRUSE ELLIPTA) 7'S IH SCH (10:56)
[2020-09-11] MEDS: MONTELUKAST 10 MG (SINGULAIR) TAB PO SCH (20:03)
[2020-09-11] MEDS: OXYBUTYNIN (DITROPAN) 5 MG TAB PO SCH (20:04)
[2020-09-11] MEDS: LACTATED RINGERS 1,000 ML IV SCH (20:12)
[2020-09-12] VITALS (30 sets, daily range): BP systolic 106–155; BP diastolic 50–90
[2020-09-12] MEDS: RT-ALBUTEROL INHALER HFA (VENTOLIN HFA) 18 GM IH SCH ×6 (00:59→21:51)
[2020-09-12 03:24] LABS: ABG BASE EXCESS 5.2 MMOL/L (-2.5-2.5); ABG OXYGEN SATURATION 99 % (94-100); ABG PCO2 53 MMHG (35-45); ABG PH 7.37 (7.37-7.43); ABG PO2 110 MMHG (79-93); ABG TCO2 31.9 MMOL/L (21.0-31.0); BASOPHILS % (AUTO) 0 % (0-10); EOSINOPHILS % (AUTO) 0 % (0-10); HEMATOCRIT 40 % (40-54); HEMOGLOBIN 12.6 g/dL (13.3-17.7); LYMPHOCYTES # (AUTO) 1.3 10^3/uL (1.0-4.0); LYMPHOCYTES % (AUTO) 10 % (12-44); MEAN CORPUSCULAR HEMOGLOBIN 29 pg (25-34); MEAN CORPUSCULAR HGB CONC 31 g/dL (32-36); MEAN CORPUSCULAR VOLUME 92 fL (80-99); MEAN PLATELET VOLUME 10.4 fL (9.0-12.2); MONOCYTES # (AUTO) 1.2 10^3/uL (0.0-1.0); MONOCYTES % (AUTO) 9 % (0-12); NEUTROPHILS # (AUTO) 10.1 10^3/uL (1.8-7.8); NEUTROPHILS % (AUTO) 79 % (42-75); PLATELET COUNT 330 10^3/uL (130-400); WHITE BLOOD COUNT 12.8 10^3/uL (4.3-11.0)
[2020-09-12 03:27] LABS: ALLENS TEST POSITIVE; INSPIRED O2 50; PATIENT TEMP 36.3; VENTILATOR YES
[2020-09-12 03:41] LABS: POTASSIUM 4.2 MMOL/L (3.6-5.0)
[2020-09-12 03:42] LABS: CALCIUM 8.8 MG/DL (8.5-10.1)
[2020-09-12 03:47] LABS: CREATININE SERUM 1.51 MG/DL (0.60-1.30); PHOSPHORUS 2.9 MG/DL (2.3-4.7)
[2020-09-12 03:49] LABS: MAGNESIUM 3.3 MG/DL (1.6-2.4)
[2020-09-12] MEDS: MEROPENEM 500 MG in WATER (STERILE) FOR INJECTION 10 ML IV SCH ×4 (04:18→21:38)
[2020-09-12] MEDS: inSUlin ASPART (NovoLOG) 1 UNIT/0.01 ML (CHARGE PER UNIT) SC SCH ×6 (04:18→23:29)
--- NOTE | 2020-09-12 04:52 | Pulmonary Progress Note ---
Subjective Time Seen by a Provider: 04:48 Subjective/Events-last exam Sedated on vent. Sepsis Event Evaluation Height, Weight, BMI Height: 5'9.00" Weight: 400lbs. 0.0oz. 181.210112uj; 53.85 BMI Method:Stated Exam Exam Vital Signs Date Time Temp Pulse Resp B/P (MAP) Pulse Ox O2 Delivery O2 Flow Rate FiO2 09/12/20 01:21 67 28 93 50 09/12/20 00:59 67 28 93 50 09/11/20 23:32 36.7 09/11/20 23:00 66 27 135/83 (100) 95 Mechanical Ventilator 50.00 09/11/20 22:40 135/82 09/11/20 22:00 65 28 143/83 (103) 94 Mechanical Ventilator 50.00 09/11/20 21:49 72 28 94 50 09/11/20 21:00 68 27 138/83 (101) 95 Mechanical Ventilator 50.00 09/11/20 20:01 36.8 71 28 143/85 (104) 94 Mechanical Ventilator 50.00 09/11/20 20:00 95 Mechanical Ventilator 50 09/11/20 20:00 63 27 143/81 (101) 95 Mechanical Ventilator 50.00 09/11/20 19:00 66 27 144/86 (105) 94 Mechanical Ventilator 50.00 09/11/20 19:00 62 09/11/20 18:38 71 28 94 50 09/11/20 18:00 70 28 152/83 (106) 94 Mechanical Ventilator 50.00 09/11/20 17:00 65 27 149/86 (107) 94 Mechanical Ventilator 50.00 09/11/20 16:34 36.6 09/11/20 16:00 66 27 146/83 (104) 93 Mechanical Ventilator 50.00 09/11/20 15:15 66 28 94 50 09/11/20 15:00 66 28 145/88 (107) 94 Mechanical Ventilator 50.00 09/11/20 14:00 69 28 153/84 (107) 93 Mechanical Ventilator 50.00 09/11/20 13:00 66 30 156/90 (112) 93 Mechanical Ventilator 50.00 09/11/20 12:44 70 09/11/20 12:00 70 27 141/87 (105) 92 Mechanical Ventilator 50.00 09/11/20 11:51 36.2 1/30/21 11:00 68 132/84 (100) 91 Mechanical Ventilator 50.00 09/11/20 10:56 68 28 91 50 09/11/20 10:00 75 32 138/83 (101) 92 Mechanical Ventilator 50.00 09/11/20 09:03 36.2 09/11/20 09:00 80 31 139/81 (100) 91 Mechanical Ventilator 50.00 09/11/20 08:55 91 Mechanical Ventilator 50 09/11/20 08:00 71 31 131/75 (93) 91 Mechanical Ventilator 50.00 09/11/20 07:22 69 28 91 50 09/11/20 07:00 67 30 128/73 (91) 91 Mechanical Ventilator 50.00 09/11/20 07:00 68 09/11/20 06:00 67 30 128/82 (97) 93 Mechanical Ventilator 50.00 09/11/20 05:42 35.3 09/11/20 05:37 65 28 128/87 09/11/20 05:00 70 20 128/80 (96) 93 Mechanical Ventilator 50.00 I & O 09/12/20 07:00 Intake Total 620 ml Output Total 1650 ml Balance -1030 ml Height & Weight Height: 5'9.00" Weight: 400lbs. 0.0oz. 181.268705ub; 53.85 BMI Method:Stated General Appearance: No Apparent Distress, WD/WN, Chronically ill HEENT: PERRL/EOMI, Normal ENT Inspection, Pharynx Normal, Moist Mucous Membranes Neck: Full Range of Motion, Normal Inspection, Non Tender Respiratory: Lungs Clear Cardiovascular: Regular Rate, Rhythm Extremity: Normal Capillary Refill, Normal Inspection, Normal Range of Motion, Non Tender, No Calf Tenderness, No Pedal Edema Neurologic/Psychiatric: No Motor/Sensory Deficits, Normal Mood/Affect Skin: Normal Color, Warm/Dry Lymphatic: No Adenopathy Results Lab Laboratory Tests 09/11/20 01:20 09/12/20 03:15 Assessment/Plan Assessment/Plan Acute on chronic respiratory failure with ARDS secondary to COVID -PRN BiPAP - currently requiring at 100% -Versed 6, Fentanyl 250 -TF -450/24/12/ 100% -CXR appears worse. -Labs reviewed -Continue proning Hypertryglycerides -D/C propofol COVID 19 PNA -Continue Merrem -Oxygen -Dx 09/05 -Decadron Hyperglycemia -Increase Levemir to 42 Units BID -Continue SSI C -Increase Accu Checks to Q 4 Secondary bacterial PNA -Change Abx to Merrem x 7-10days and zyvox until MRSA returns -MRSA swab is pending COPDAE -oxygen -SVNs Acute renal failure - Worsening with hyperphos -PHOSLO -Hold Lasix -Monitor hx of diastolic CHF -Lasix 80mg BID -- Hold Lasix -Spironolactone -- Hold -Cardiology is following IDDM Morbid obesity with JOSE MANUEL -Home CPAP Chronic Afib and CAD -Cardiology following Acute on CKD hx of Cellulitis and abscess of foot GI/DVT ppx -Lovenox 60mg BID -Add Pepcid Pt's prognosis is very poor. RAIMUNDO MATTHEWS DO Sep 12, 2020 04:52
[2020-09-12] MEDS: fentaNYL DRIP PRE-MIX 250 ML IV SCH ×5 (04:58→22:53)
[2020-09-12] MEDS: LEVOTHYROXINE 25 MCG (LEVOTHROID) TAB PO SCH (05:44)
[2020-09-12] MEDS: ADVAIR HFA 115/21 MCG INHALER 8 GM IH SCH ×2 (06:59→18:11)
[2020-09-12] MEDS: UMECLIDINIUM BROMIDE (INCRUSE ELLIPTA) 7'S IH SCH (06:59)
[2020-09-12] MEDS: DOCUSATE SODIUM 100 MG (COLACE) CAP PO SCH ×2 (08:07→20:50)
[2020-09-12] MEDS: FINASTERIDE (PROSCAR) 5 MG TAB PO SCH (08:07)
[2020-09-12] MEDS: SENNOSIDES 8.6 MG (SENOKOT) TAB PO SCH ×2 (08:07→20:50)
[2020-09-12] MEDS: VITAMIN D3 25 MCG (1,000 UNITS) TABLET PO SCH (08:07)
[2020-09-12] MEDS: ENOXAPARIN 60 MG/0.6 ML (LOVENOX) SYR SC SCH ×2 (08:07→20:51)
[2020-09-12] MEDS: guaiFENesin SYRUP 100 MG/5 ML 10 ML (ROBITUSSIN SF) PO SCH ×2 (08:07→20:51)
[2020-09-12] MEDS: TAMSULOSIN 0.4 MG (FLOMAX) CAP PO SCH (08:07)
[2020-09-12] MEDS: MAGNESIUM OXIDE (MAG-OX)400 MG TAB PO SCH ×2 (08:07→17:19)
[2020-09-12] MEDS: CALCIUM ACETATE 667 MG CAP (PHOSLO) PO SCH ×3 (08:07→17:19)
[2020-09-12] MEDS: ASPIRIN 81 MG CHEW (CHILDREN'S ASA) PO SCH (08:07)
[2020-09-12] MEDS: dilTIAZem120 MG (CARDIZEM CD) CAP PO SCH (08:08)
[2020-09-12] MEDS: FAMOTIDINE 20MG/2ML IV (PEPCID) IV SCH ×2 (08:10→20:50)
[2020-09-12] MEDS: ARTIFICIAL TEARS OINT (LACRI-LUBE) 3.5 GM TUBE OU SCH ×4 (08:38→23:29)
--- NOTE | 2020-09-12 08:48 | Diagnostic Imaging Report ---
EXAMINATION: Chest 1 view HISTORY: Covid 19 COMPARISON: 09/11/2020 FINDINGS: Endotracheal tube tip terminates 6 cm above the azeem. Gastric tube tip terminates below the field of view. Median sternotomy wires are fractured or malaligned. There is stable moderate interstitial and airspace opacities in both lungs. Heart size is enlarged but unchanged. No pleural effusion or pneumothorax. IMPRESSION: 1. Stable moderate interstitial and airspace opacities consistent with history of Covid 19. Dictated by: Dictated on workstation # [id number]
--- NOTE | 2020-09-12 10:48 | Cardiology Progress Note ---
Subjective Date Seen by Provider: Sep 12, 2020 Time Seen by Provider: 10:47 Subjective/Events-last exam Patient was in pronate position, intubated Review of Systems General: Other (unable to provide review of systems) Objective-Cardiology Exam Last Set of Vital Signs Vital Signs 09/12/20 09/12/20 09/12/20 08:50 10:00 10:20 Temp 36.3 Pulse 62 Resp 30 B/P (MAP) 136/86 (103) Pulse Ox 93 O2 Delivery Mechanical Ventilator O2 Flow Rate 50.00 FiO2 50 Capillary Refill : I&O Intake and Output 09/12/20 00:00 Intake Total 1000 ml Output Total 1875 ml Balance -875 ml Intake Oral 0 ml IV Total 850 ml Other 150 ml Output Urine Total 1675 ml Gastric Drainage Total 200 ml General: Mild Distress, Other (sedated and intubated) HEENT: Atraumatic Heart: Other (controlled rate) Extremities: No Clubbing Skin: No Rashes Neuro: Other (sedated and intubated) Psych/Mental Status: Other (sedated and intubated) Results Lab Laboratory Tests 09/12/20 03:15 A/P-Cardiology Admission Diagnosis COVID-19 Bilateral pneumonia CAD Chronic afib Assessment/Plan Acute respiratory failure, COVID-19 pneumonia, deteriorated, currently intubated and ventilator dependent, pronating physician today, managed by Dr. Whitney Congestive heart failure,chronic diastolic heart failure and cor pulmonale with right-sided heart failure probably secondary to severe COPD. Most recent 2D Ech o done Aug 2018 showing mild to moderate TR, PA 40mmHg. Difficult study, unable to visualize endocardium Chronic permanent atrial fibrillation, diagnosed in 2016, rate controlled. Has been unable to tolerate OAC in the past secondary to hx of GI bleed requiring blood transfusion. Currently on Lovenox and ASA CAD with a h/o CABG in 2006 at [facility] in [place], [place]. On cardiac cath of 11-11-15: Multivessel coronary disease including multiple more than 90% stenosis of the proximal and mid left anterior descending artery. The mid to distal left anterior descending artery is protected with a widely patent left internal mammary artery graft. The left circumflex artery had 99% ostial/proximal stenosis to which successful stenting was carried out with Promus Premier 3.5 x 20 mm stent with a reduction of stenosis to 0% residual. The distal left circumflex and its obtuse marginal branches have diffuse moderate to moderately severe disease which were not intervened on. The right coronary artery is dominant and had 90% proximal stenosis to which successful stenting was carried out with Promus Premier 2.75 x 28 mm stent with reduction of stenosis to 0% residual. The distal right coronary artery has multiple stenoses of 50 to 60%, which were not intervened on. Cardiac cath of 11-11-15 showed well preserved global left ventricular systolic function and ejection fraction of 55 to 60%. Elevated left ventricular end- diastolic pressure which was measured at approximately 20 mmHg. No significant mitral regurgitation. Chronic kidney disease stage 3-4, continue to monitor renal function. Chronic bilat leg swelling, likely due to venous insuff, no evidence of DVT on on venous duplex of 09/13/17, ABIs on 01/13/16 at [facility], Hypertension, monitor blood pressure Asthma - follows with Dr. Cadet as outpatient Quit smoking in early DM II, followed and managed by primary care physician Sleep apnea syndrome - CPAP therapy - managed by Dr. Paris and Dr. Cadet Overall poor prognosis CEM COMBS MD Sep 12, 2020 10:48
[2020-09-12] MEDS: MIDAZOLAM DRIP PRE-MIX 100 ML IV SCH (13:51)
[2020-09-12] MEDS: LACTATED RINGERS 1,000 ML IV SCH (17:20)
[2020-09-12] MEDS: MONTELUKAST 10 MG (SINGULAIR) TAB PO SCH (20:50)
[2020-09-12] MEDS: OXYBUTYNIN (DITROPAN) 5 MG TAB PO SCH (20:51)
[2020-09-13] VITALS (30 sets, daily range): BP systolic 115–156; BP diastolic 45–84
[2020-09-13] MEDS: RT-ALBUTEROL INHALER HFA (VENTOLIN HFA) 18 GM IH SCH ×6 (01:04→22:04)
[2020-09-13 03:02] LABS: BASOPHILS # (AUTO) 0.1 10^3/uL (0.0-0.1); BASOPHILS % (AUTO) 0 % (0-10); EOSINOPHILS % (AUTO) 0 % (0-10); HEMATOCRIT 40 % (40-54); HEMOGLOBIN 12.1 g/dL (13.3-17.7); LYMPHOCYTES # (AUTO) 1.2 10^3/uL (1.0-4.0); LYMPHOCYTES % (AUTO) 10 % (12-44); MEAN CORPUSCULAR HEMOGLOBIN 29 pg (25-34); MEAN CORPUSCULAR HGB CONC 30 g/dL (32-36); MEAN CORPUSCULAR VOLUME 96 fL (80-99); MEAN PLATELET VOLUME 10.5 fL (9.0-12.2); MONOCYTES # (AUTO) 1.5 10^3/uL (0.0-1.0); MONOCYTES % (AUTO) 12 % (0-12); NEUTROPHILS # (AUTO) 9.5 10^3/uL (1.8-7.8); NEUTROPHILS % (AUTO) 76 % (42-75); PLATELET COUNT 317 10^3/uL (130-400); WHITE BLOOD COUNT 12.5 10^3/uL (4.3-11.0)
[2020-09-13 03:21] LABS: POTASSIUM 4.2 MMOL/L (3.6-5.0)
[2020-09-13 03:22] LABS: CALCIUM 8.8 MG/DL (8.5-10.1)
[2020-09-13 03:27] LABS: CREATININE SERUM 1.37 MG/DL (0.60-1.30); PHOSPHORUS 2.3 MG/DL (2.3-4.7)
[2020-09-13 03:29] LABS: MAGNESIUM 3.7 MG/DL (1.6-2.4)
[2020-09-13] MEDS: inSUlin ASPART (NovoLOG) 1 UNIT/0.01 ML (CHARGE PER UNIT) SC SCH ×6 (04:09→23:26)
[2020-09-13] MEDS: MEROPENEM 500 MG in WATER (STERILE) FOR INJECTION 10 ML IV SCH ×4 (04:09→22:45)
[2020-09-13] MEDS: fentaNYL DRIP PRE-MIX 250 ML IV SCH ×5 (04:11→22:47)
[2020-09-13] MEDS: MIDAZOLAM DRIP PRE-MIX 100 ML IV SCH ×2 (04:52→18:21)
[2020-09-13] MEDS: ARTIFICIAL TEARS OINT (LACRI-LUBE) 3.5 GM TUBE OU SCH ×4 (04:52→20:34)
[2020-09-13] MEDS: LEVOTHYROXINE 25 MCG (LEVOTHROID) TAB PO SCH (04:53)
--- NOTE | 2020-09-13 05:37 | Pulmonary Progress Note ---
Subjective Time Seen by a Provider: 05:33 Subjective/Events-last exam Pt is sedated on vent. Sepsis Event Evaluation Height, Weight, BMI Height: 5'9.00" Weight: 400lbs. 0.0oz. 181.263386rn; 53.85 BMI Method:Stated Exam Exam Vital Signs Date Time Temp Pulse Resp B/P (MAP) Pulse Ox O2 Delivery O2 Flow Rate FiO2 09/13/20 05:00 71 21 146/81 (102) 94 Mechanical Ventilator 45.00 09/13/20 04:52 75 28 130/72 09/13/20 04:00 36.9 Mechanical Ventilator 45.00 09/13/20 04:00 66 37 147/83 (104) 94 Mechanical Ventilator 45.00 09/13/20 03:00 75 38 150/84 (106) 94 Mechanical Ventilator 40.00 09/13/20 02:00 74 36 146/80 (102) 94 Mechanical Ventilator 40.00 09/13/20 01:05 75 28 93 45 09/13/20 01:00 70 27 141/83 (102) 93 Mechanical Ventilator 40.00 09/13/20 01:00 70 09/13/20 00:00 74 27 141/77 (98) 93 Mechanical Ventilator 40.00 09/12/20 23:30 37.2 Mechanical Ventilator 40.00 09/12/20 23:29 37.1 09/12/20 23:00 74 24 137/78 (97) 93 Mechanical Ventilator 40.00 09/12/20 22:00 72 24 140/85 (103) 93 Mechanical Ventilator 40.00 09/12/20 22:00 Mechanical Ventilator 45.00 09/12/20 21:53 74 32 95 50 09/12/20 21:00 68 31 149/79 (102) 94 Mechanical Ventilator 50.00 09/12/20 20:00 77 28 138/75 (96) 94 Mechanical Ventilator 50.00 09/12/20 19:41 95 Mechanical Ventilator 50 09/12/20 19:30 36.8 77 28 143/81 (101) 94 Mechanical Ventilator 50.00 09/12/20 19:00 66 145/76 (99) 94 Mechanical Ventilator 50.00 09/12/20 19:00 74 09/12/20 18:11 67 28 94 50 09/12/20 18:00 66 35 155/82 (106) 94 Mechanical Ventilator 50.00 09/12/20 17:00 71 21 146/81 (102) 94 Mechanical Ventilator 50.00 09/12/20 16:22 36.5 09/12/20 15:00 75 38 147/76 (99) 94 Mechanical Ventilator 50.00 09/12/20 14:00 74 36 146/80 (102) 94 Mechanical Ventilator 50.00 09/12/20 13:51 68 28 152/84 09/12/20 13:47 68 28 97 50 09/12/20 13:00 62 09/12/20 13:00 70 38 145/79 (101) 95 Mechanical Ventilator 50.00 09/12/20 12:56 36.0 09/12/20 12:00 70 29 135/78 (97) 94 Mechanical Ventilator 50.00 09/12/20 11:00 61 15 134/81 (98) 91 Mechanical Ventilator 50.00 09/12/20 10:20 62 30 93 50 09/12/20 10:00 58 28 136/86 (103) 93 Mechanical Ventilator 50.00 09/12/20 09:00 65 28 117/74 (88) 93 Mechanical Ventilator 50.00 09/12/20 08:50 36.3 09/12/20 08:00 63 28 120/74 (89) 92 Mechanical Ventilator 50.00 09/12/20 07:53 92 Mechanical Ventilator 50 09/12/20 07:00 70 09/12/20 07:00 70 28 90 50 09/12/20 07:00 65 28 113/72 (86) 93 Mechanical Ventilator 50.00 09/12/20 06:00 73 28 113/72 (86) 93 Mechanical Ventilator 50.00 I & O 09/13/20 07:00 Intake Total 3350 ml Output Total 2300 ml Balance 1050 ml Height & Weight Height: 5'9.00" Weight: 400lbs. 0.0oz. 181.503098gt; 53.85 BMI Method:Stated General Appearance: No Apparent Distress, WD/WN, Chronically ill HEENT: PERRL/EOMI, Normal ENT Inspection, Pharynx Normal, Moist Mucous Membranes Neck: Full Range of Motion, Normal Inspection, Non Tender Respiratory: Lungs Clear Cardiovascular: Regular Rate, Rhythm Extremity: Normal Capillary Refill, Normal Inspection, Normal Range of Motion, Non Tender, No Calf Tenderness, No Pedal Edema Neurologic/Psychiatric: No Motor/Sensory Deficits, Normal Mood/Affect Skin: Normal Color, Warm/Dry Lymphatic: No Adenopathy Results Lab Laboratory Tests 09/12/20 03:15 09/13/20 02:10 Assessment/Plan Assessment/Plan Acute on chronic respiratory failure with ARDS secondary to COVID -Intubated 09/09 -Versed 6, Fentanyl 250 -TF -450/24/12/ 100% -CXR appears worse. -Labs reviewed -Continue proning Hypertryglycerides -D/C propofol COVID 19 PNA - Merrem -Oxygen -Dx 09/05 -Decadron Hyperglycemia -Increase Levemir to 42 Units BID -Increase to 50 units BID -Continue SSI C -Increase Accu Checks to Q 4 Secondary bacterial PNA -Change Abx to Merrem x 7-10days and zyvox until MRSA returns -MRSA swab is pending COPDAE -oxygen -SVNs Acute renal failure - Worsening with hyperphos -PHOSLO -Hold Lasix -Monitor hx of diastolic CHF -Lasix 80mg BID -- Hold Lasix -Spironolactone -- Hold -Cardiology is following IDDM Morbid obesity with JOSE MANUEL -Home CPAP Chronic Afib and CAD -Cardiology following Acute on CKD hx of Cellulitis and abscess of foot GI/DVT ppx -Lovenox 60mg BID -Add Pepcid Pt's prognosis is very poor. RAIMUNDO MATTHEWS DO Sep 13, 2020 05:37
[2020-09-13 05:39] LABS: ABG BASE EXCESS 5.8 MMOL/L (-2.5-2.5); ABG OXYGEN SATURATION 97 % (94-100); ABG PCO2 51 MMHG (35-45); ABG PH 7.39 (7.37-7.43); ABG PO2 82 MMHG (79-93); ABG TCO2 32.4 MMOL/L (21.0-31.0)
[2020-09-13 05:41] LABS: ALLENS TEST POSITIVE; INSPIRED O2 45; PATIENT TEMP 37; VENTILATOR YES
[2020-09-13] MEDS: 1/2 NS IV SOLUTION 1,000 ML IV SCH (06:07)
[2020-09-13] MEDS: ADVAIR HFA 115/21 MCG INHALER 8 GM IH SCH ×2 (06:24→18:36)
--- NOTE | 2020-09-13 07:31 | Diagnostic Imaging Report ---
INDICATION: Ventilator support, respiratory distress. Time of exam: 1:24 AM Correlation is made with prior chest from one day earlier. ET tube remains above the azeem. NG tube passes below the diaphragm. Changes of median sternotomy are noted. Bilateral infiltrates show no significant change apart from some questionable improved aeration to the left upper lobe since yesterday. No effusion is identified. IMPRESSION: Overall improved aeration left mid and upper lung field when compared with exam one day earlier. Dictated by: Dictated on workstation # [id number]
[2020-09-13] MEDS: TAMSULOSIN 0.4 MG (FLOMAX) CAP PO SCH (09:01)
[2020-09-13] MEDS: NYSTATIN ORAL SUSP 5 ML UDC PO SCH ×3 (09:01→18:20)
[2020-09-13] MEDS: VITAMIN D3 25 MCG (1,000 UNITS) TABLET PO SCH (09:01)
[2020-09-13] MEDS: SENNOSIDES 8.6 MG (SENOKOT) TAB PO SCH ×2 (09:01→20:35)
[2020-09-13] MEDS: DOCUSATE SODIUM 100 MG (COLACE) CAP PO SCH ×2 (09:01→20:35)
[2020-09-13] MEDS: CALCIUM ACETATE 667 MG CAP (PHOSLO) PO SCH ×3 (09:01→18:20)
[2020-09-13] MEDS: FAMOTIDINE 20MG/2ML IV (PEPCID) IV SCH ×2 (09:01→20:28)
[2020-09-13] MEDS: ENOXAPARIN 60 MG/0.6 ML (LOVENOX) SYR SC SCH (09:01)
[2020-09-13] MEDS: FINASTERIDE (PROSCAR) 5 MG TAB PO SCH (09:02)
[2020-09-13] MEDS: MAGNESIUM OXIDE (MAG-OX)400 MG TAB PO SCH ×2 (09:02→18:09)
[2020-09-13] MEDS: ASPIRIN 81 MG CHEW (CHILDREN'S ASA) PO SCH (09:02)
[2020-09-13] MEDS: dilTIAZem120 MG (CARDIZEM CD) CAP PO SCH (09:02)
[2020-09-13] MEDS: guaiFENesin SYRUP 100 MG/5 ML 10 ML (ROBITUSSIN SF) PO SCH ×2 (09:02→22:45)
--- NOTE | 2020-09-13 09:39 | Progress Note ---
Subjective Date Seen by a Provider: Sep 13, 2020 Time Seen by a Provider: 09:30 Subjective/Events-last exam Pt still intubated Remains on the prone schedule for 16 hours Updated Danielle his PEEP is down to 12 from 14 FiO2 is doing good at 40% Creatinine 1.37 Blood sugar is adequate Objective Exam Last Set of Vital Signs Vital Signs Date Time Temp Pulse Resp B/P (MAP) Pulse Ox O2 Delivery O2 Flow Rate FiO2 09/13/20 08:55 36.8 09/13/20 06:41 76 09/13/20 06:25 28 92 45 09/13/20 06:00 127/76 (93) Mechanical Ventilator 45.00 Capillary Refill : I&O Intake and Output 09/13/20 00:00 Intake Total 2760 ml Output Total 2200 ml Balance 560 ml Intake Oral 0 ml IV Total 2100 ml Tube Feeding 300 ml Other 360 ml Output Urine Total 1600 ml Gastric Drainage Total 600 ml General: Alert, No Acute Distress, Other (intubated, sedated) Lungs: Clear to Auscultation, Normal Air Movement Results Lab Laboratory Tests 09/12/20 11:14: Glucometer 227H 09/12/20 15:59: Glucometer 269H 09/12/20 19:30: Glucometer 264H 09/12/20 23:16: Glucometer 270H 09/13/20 02:10: White Blood Count 12.5H, Red Blood Count 4.18L, Hemoglobin 12.1L, Hematocrit 40, Mean Corpuscular Volume 96, Mean Corpuscular Hemoglobin 29, Mean Corpuscular Hemoglobin Concent 30L, Red Cell Distribution Width 13.3, Platelet Count 317, Mean Platelet Volume 10.5, Immature Granulocyte % (Auto) 3, Neutrophils (%) (Auto) 76H, Lymphocytes (%) (Auto) 10L, Monocytes (%) (Auto) 12, Eosinophils (%) (Auto) 0, Basophils (%) (Auto) 0, Neutrophils # (Auto) 9.5H, Lymphocytes # (Auto) 1.2, Monocytes # (Auto) 1.5H, Eosinophils # (Auto) 0.0, Basophils # (Auto) 0.1, Immature Granulocyte # (Auto) 0.3H, Sodium Level 150H, Potassium Level 4.2, Chloride Level 110H, Carbon Dioxide Level 28, Anion Gap 12, Blood Urea Nitrogen 85H, Creatinine 1.37H, Estimat Glomerular Filtration Rate 51, BUN/Creatinine Ratio 62, Glucose Level 262H, Calcium Level 8.8, Phosphorus Level 2.3, Magnesium Level 3.7H, Triglycerides Level 264H 09/13/20 05:00: Blood Gas Puncture Site RIGHT RADIAL, Blood Gas Patient Temperature 37, Arterial Blood pH 7.39, Arterial Blood Partial Pressure CO2 51H, Arterial Blood Partial Pressure O2 82, Arterial Blood HCO3 31H, Arterial Blood Total CO2 32.4H, Arterial Blood Oxygen Saturation 97, Arterial Blood Base Excess 5.8H, Michael Test POSITIVE, Blood Gas Ventilator Setting YES, Blood Gas Inspired Oxygen 45 09/13/20 08:59: Glucometer 173H Microbiology 09/09/20 Gram Stain - Final, Complete 09/09/20 Sputum Culture - Final, Complete Usual upper respiratory swetha 09/05/20 Blood Culture - Final, Complete No growth Assessment/Plan Assessment/Plan Assess & Plan/Chief Complaint Assessment: COVID-19 PNA Acute hypoxic respiratory failure requiring intubation 09/09/20 OHS Hypoxia Chronic respiratory failure maintained on 3L/min O2 at home Severe obesity Severe COPD FOrmer smoker Diastolic dysfunction Chronic AF OAC maintained CRI baseline creat 1.8 DM insulin dependent poor control HTN HLP BPH Chronic UTI Chronic cellulitis of lower extremities Anxiety Severe hypokalemia on large amounts of supplement Hypothyroidism Plan: Pulmo consult Cardiology consult Monitor diabetes Supportive care 09/07/20: biPAP Vapotherm Monitor kidney function Decrease insulin due to hypoglycemia 09/08/20: Monitor closely May need intubation 09/13/11: Intubated Day # 5 Prone positioning to continue PEEP 12 Updated Diagnosis/Problems Diagnosis/Problems (1) Acute respiratory failure due to COVID-19 (2) COPD (chronic obstructive pulmonary disease) with acute bronchitis Status: Acute (3) Congestive heart failure with preserved LV function, NYHA class 3 Status: Acute (4) Obesity hypoventilation syndrome Status: Chronic (5) Chronic atrial fibrillation Status: Chronic (6) JOSE MANUEL (obstructive sleep apnea) Status: Chronic (7) Chronic kidney disease Status: Chronic (8) Essential (primary) hypertension Status: Chronic (9) CAD (coronary artery disease) Status: Chronic (10) Anemia Status: Acute (11) Diabetes mellitus Status: Chronic (12) Hypothyroidism Status: Chronic CHAO PAT DO Sep 13, 2020 09:39
--- NOTE | 2020-09-13 10:07 | Cardiology Progress Note ---
Subjective Date Seen by Provider: Sep 13, 2020 Time Seen by Provider: 10:06 Subjective/Events-last exam Patient is sedated and intubated Review of Systems General: Other (unable to provide review of systems) Objective-Cardiology Exam Last Set of Vital Signs Vital Signs 09/13/20 09/13/20 09/13/20 09/13/20 06:00 06:25 06:41 08:55 Temp 36.8 Pulse 76 Resp 28 B/P (MAP) 127/76 (93) Pulse Ox 92 O2 Delivery Mechanical Ventilator O2 Flow Rate 45.00 FiO2 45 Capillary Refill : I&O Intake and Output 09/13/20 00:00 Intake Total 2760 ml Output Total 2200 ml Balance 560 ml Intake Oral 0 ml IV Total 2100 ml Tube Feeding 300 ml Other 360 ml Output Urine Total 1600 ml Gastric Drainage Total 600 ml General: Mild Distress, Other (sedated and intubated) HEENT: Atraumatic Heart: Other (controlled rate) Extremities: No Clubbing Skin: No Rashes Neuro: Other (sedated and intubated) Psych/Mental Status: Other (sedated and intubated) Results Lab Laboratory Tests 09/13/20 02:10 A/P-Cardiology Admission Diagnosis COVID-19 Bilateral pneumonia CAD Chronic afib Assessment/Plan Acute respiratory failure, COVID-19 pneumonia, deteriorated, currently intubated and ventilator dependent, pronating physician today, managed by Dr. Whitney Congestive heart failure,chronic diastolic heart failure and cor pulmonale with right-sided heart failure probably secondary to severe COPD. Most recent 2D Echo done Aug 2018 showing mild to moderate TR, PA 40mmHg. Difficult study, u nable to visualize endocardium Chronic permanent atrial fibrillation, diagnosed in 2016, rate controlled. Has been unable to tolerate OAC in the past secondary to hx of GI bleed requiring blood transfusion. Currently on Lovenox and ASA CAD with a h/o CABG in [address] [facility] in [place], [place]. On cardiac cath of 11-11-15: Multivessel coronary disease including multiple more than 90% stenosis of the proximal and mid left anterior descending artery. The mid to distal left anterior descending artery is protected with a widely patent left internal mammary artery graft. The left circumflex artery had 99% ostial/proximal stenosis to which successful stenting was carried out with Promus Premier 3.5 x 20 mm stent with a reduction of stenosis to 0% residual. The distal left circumflex and its obtuse marginal branches have diffuse moderate to moderately severe disease which were not intervened on. The right coronary artery is dominant and had 90% proximal stenosis to which successful stenting was carried out with Promus Premier 2.75 x 28 mm stent with reduction of stenosis to 0% residual. The distal right coronary artery has multiple st enoses of 50 to 60%, which were not intervened on. Cardiac cath of 11-11-15 showed well preserved global left ventricular systolic function and ejection fraction of 55 to 60%. Elevated left ventricular end- diastolic pressure which was measured at approximately 20 mmHg. No significant mitral regurgitation. Chronic kidney disease stage 3-4, continue to monitor renal function. Chronic bilat leg swelling, likely due to venous insuff, no evidence of DVT on on venous duplex of 09/13/17, ABIs on 01/13/16 at [facility], Hypertension, monitor blood pressure Asthma - follows with Dr. Cadet as outpatient Quit smoking in early DM II, followed and managed by primary care physician Sleep apnea syndrome - CPAP therapy - managed by Dr. Paris and Dr. Cadet Overall poor prognosis CEM COMBS MD Sep 13, 2020 10:07 am
[2020-09-13] MEDS: UMECLIDINIUM BROMIDE (INCRUSE ELLIPTA) 7'S IH SCH (10:27)
--- NOTE | 2020-09-13 15:49 | NUR ---
Note pt currently receiving TF of Pulmocare via 120ml bolus feeds q4h with 30ml free water flushes before/after each bolus. Continue to increase TF by 30ml q8h as tolerated toward goal of 200ml bolus feed q4h. Will continue to follow and reassess as pt needs, intake, ands status change. Bryce Rasheed, MS RD LD [phone] cell
[2020-09-13] MEDS ORDERED: MICONAZOLE 2% POWDER (DESENEX AF) 90 GM TOP PRN (19:15)
[2020-09-13] MEDS: ENOXAPARIN 40 MG/0.4 ML (LOVENOX) SYR SC SCH (20:27)
[2020-09-13] MEDS: MONTELUKAST 10 MG (SINGULAIR) TAB PO SCH (20:28)
[2020-09-13] MEDS: OXYBUTYNIN (DITROPAN) 5 MG TAB PO SCH (20:28)
[2020-09-14] VITALS (31 sets, daily range): BP systolic 127–150; BP diastolic 69–87
[2020-09-14] MEDS: RT-ALBUTEROL INHALER HFA (VENTOLIN HFA) 18 GM IH SCH ×6 (02:35→22:58)
[2020-09-14 03:18] LABS: ABG BASE EXCESS 5.9 MMOL/L (-2.5-2.5); ABG OXYGEN SATURATION 96 % (94-100); ABG PCO2 51 MMHG (35-45); ABG PH 7.39 (7.37-7.43); ABG PO2 81 MMHG (79-93); ABG TCO2 32.5 MMOL/L (21.0-31.0); BASOPHILS % (AUTO) 0 % (0-10); EOSINOPHILS % (AUTO) 0 % (0-10); HEMATOCRIT 40 % (40-54); HEMOGLOBIN 12.2 g/dL (13.3-17.7); LYMPHOCYTES # (AUTO) 1.2 10^3/uL (1.0-4.0); LYMPHOCYTES % (AUTO) 9 % (12-44); MEAN CORPUSCULAR HEMOGLOBIN 30 pg (25-34); MEAN CORPUSCULAR HGB CONC 31 g/dL (32-36); MEAN CORPUSCULAR VOLUME 96 fL (80-99); MEAN PLATELET VOLUME 10.5 fL (9.0-12.2); MONOCYTES # (AUTO) 1.5 10^3/uL (0.0-1.0); MONOCYTES % (AUTO) 11 % (0-12); NEUTROPHILS # (AUTO) 10.2 10^3/uL (1.8-7.8); NEUTROPHILS % (AUTO) 77 % (42-75); PLATELET COUNT 310 10^3/uL (130-400); WHITE BLOOD COUNT 13.2 10^3/uL (4.3-11.0)
[2020-09-14 03:19] LABS: ALLENS TEST POSITIVE; INSPIRED O2 45; PATIENT TEMP 36.3; VENTILATOR YES
[2020-09-14 03:32] LABS: POTASSIUM 4.3 MMOL/L (3.6-5.0)
[2020-09-14 03:34] LABS: CALCIUM 8.7 MG/DL (8.5-10.1)
[2020-09-14 03:38] LABS: CREATININE SERUM 1.27 MG/DL (0.60-1.30)
[2020-09-14 03:40] LABS: MAGNESIUM 3.9 MG/DL (1.6-2.4)
[2020-09-14] MEDS: MEROPENEM 500 MG in WATER (STERILE) FOR INJECTION 10 ML IV SCH ×4 (03:44→22:28)
[2020-09-14] MEDS: inSUlin ASPART (NovoLOG) 1 UNIT/0.01 ML (CHARGE PER UNIT) SC SCH ×6 (03:44→23:23)
--- NOTE | 2020-09-14 03:58 | Pulmonary Progress Note ---
Subjective Time Seen by a Provider: 03:53 Subjective/Events-last exam Pt is sedated on vent. Sepsis Event Evaluation Height, Weight, BMI Height: 5'9.00" Weight: 400lbs. 0.0oz. 181.624640ry; 53.85 BMI Method:Stated Exam Exam Vital Signs Date Time Temp Pulse Resp B/P (MAP) Pulse Ox O2 Delivery O2 Flow Rate FiO2 09/14/20 03:00 57 28 130/77 (94) 93 Mechanical Ventilator 35.00 09/14/20 02:36 56 28 93 35 09/14/20 02:00 64 37 136/76 (96) 94 Mechanical Ventilator 35.00 09/14/20 01:00 51 28 148/85 (106) 93 Mechanical Ventilator 35.00 09/14/20 00:44 53 09/14/20 00:00 52 28 127/75 (92) 93 Mechanical Ventilator 35.00 09/13/20 23:00 57 28 133/72 (92) 93 Mechanical Ventilator 35.00 09/13/20 22:04 60 28 93 35 09/13/20 22:00 56 27 134/77 (96) 93 Mechanical Ventilator 35.00 09/13/20 21:00 61 28 135/71 (92) 93 Mechanical Ventilator 35.00 09/13/20 20:23 36.8 09/13/20 20:00 56 27 134/74 (94) 92 Mechanical Ventilator 35.00 09/13/20 20:00 94 Mechanical Ventilator 35 09/13/20 19:00 63 09/13/20 19:00 56 28 136/70 (92) 100 Mechanical Ventilator 35.00 09/13/20 18:39 59 28 94 35 09/13/20 18:21 59 134/71 09/13/20 18:00 57 28 134/71 (92) 93 Mechanical Ventilator 35.00 09/13/20 17:00 56 27 128/75 (92) 93 Mechanical Ventilator 35.00 09/13/20 16:23 37.0 09/13/20 16:11 36.8 09/13/20 16:00 56 28 129/71 (90) 93 Mechanical Ventilator 35.00 09/13/20 15:00 62 37 135/73 (93) 91 Mechanical Ventilator 35.00 09/13/20 14:58 35.00 09/13/20 14:30 65 28 91 35 09/13/20 14:00 64 27 131/71 (91) 92 Mechanical Ventilator 45.00 09/13/20 13:00 60 27 130/74 (92) 96 Mechanical Ventilator 45.00 09/13/20 12:44 64 09/13/20 12:00 65 28 130/72 (91) 96 Mechanical Ventilator 45.00 09/13/20 11:00 65 27 129/73 (91) 95 Mechanical Ventilator 45.00 09/13/20 10:28 64 28 94 45 09/13/20 10:00 65 28 133/73 (93) 94 Mechanical Ventilator 45.00 09/13/20 09:00 60 27 129/74 (92) 93 Mechanical Ventilator 45.00 09/13/20 08:55 36.8 09/13/20 08:45 96 Mechanical Ventilator 45 09/13/20 08:00 61 27 126/69 (88) 93 Mechanical Ventilator 45.00 09/13/20 07:00 67 27 134/68 (90) 92 Mechanical Ventilator 45.00 09/13/20 06:41 76 09/13/20 06:25 61 28 92 45 09/13/20 06:00 67 27 127/76 (93) 94 Mechanical Ventilator 45.00 09/13/20 05:00 71 21 146/81 (102) 94 Mechanical Ventilator 45.00 09/13/20 04:52 75 28 130/72 09/13/20 04:00 36.9 Mechanical Ventilator 45.00 09/13/20 04:00 66 37 147/83 (104) 94 Mechanical Ventilator 45.00 I & O 09/14/20 07:00 Intake Total 1980 ml Output Total 1425 ml Balance 555 ml Height & Weight Height: 5'9.00" Weight: 400lbs. 0.0oz. 181.125987lq; 53.85 BMI Method:Stated General Appearance: Chronically ill, Mild Distress, Obese HEENT: PERRL/EOMI, Normal ENT Inspection, Pharynx Normal, Moist Mucous Membranes Neck: Full Range of Motion, Normal Inspection, Non Tender Respiratory: Chest Non Tender, Normal Breath Sounds, No Accessory Muscle Use, No Respiratory Distress, Decreased Breath Sounds Cardiovascular: No Edema, No Gallop, No JVD, No Murmur, Normal Peripheral Pulses, Irregularly Irregular Extremity: Normal Capillary Refill, Normal Inspection, Normal Range of Motion, Non Tender, No Calf Tenderness, No Pedal Edema Neurologic/Psychiatric: Alert, Oriented x3, No Motor/Sensory Deficits, Normal Mood/Affect, shell maker lockstitch II-XII Norm as Tested Skin: Normal Color, Warm/Dry Lymphatic: No Adenopathy Results Lab Laboratory Tests 09/13/20 02:10 09/14/20 03:00 Assessment/Plan Assessment/Plan Acute on chronic respiratory failure with ARDS secondary to COVID -Intubated 09/09 -Versed 6, Fentanyl 250 -TF -450//12/ 45% --Decrease PEEP to 10 -Labs reviewed -Continue proning Hypertryglycerides -D/C propofol COVID 19 PNA - Merrem -Oxygen -Dx 09/05 -Decadron Hyperglycemia -Increase Levemir 50 units BID -Continue SSI C -Increase Accu Checks to Q 4 Secondary bacterial PNA -Change Abx to Merrem x 7-10days and zyvox until MRSA returns -MRSA swab is pending COPDAE -oxygen -SVNs Acute renal failure - Worsening with hyperphos -PHOSLO -Hold Lasix -Monitor hx of diastolic CHF -Lasix 80mg BID -- Hold Lasix -Spironolactone -- Hold -Cardiology is following IDDM Morbid obesity with JOSE MANUEL -Home CPAP Chronic Afib and CAD -Cardiology following Acute on CKD hx of Cellulitis and abscess of foot GI/DVT ppx -Lovenox 60mg BID -Add RAIMUNDO Graay DO Sep 14, 2020 03:58
[2020-09-14] MEDS ORDERED: SODIUM PHOSPHATE INJ 30 MM in NS (IVPB) 250 ML INJ ONE (04:00)
[2020-09-14] MEDS: fentaNYL DRIP PRE-MIX 250 ML IV SCH ×4 (04:19→22:28)
[2020-09-14 05:10] LABS: BILIRUBIN,URINE NEGATIVE (NEGATIVE); CLARITY,URINE CLEAR; COLOR,URINE YELLOW; GLUCOSE, URINE (UA) NEGATIVE (NEGATIVE); KETONES,URINE NEGATIVE (NEGATIVE); LEUKOCYTE ESTERASE ,URINE NEGATIVE (NEGATIVE); NITRITE,URINE NEGATIVE (NEGATIVE); PROTEIN,URINE NEGATIVE (NEGATIVE)
[2020-09-14] MEDS: NYSTATIN ORAL SUSP 5 ML UDC PO SCH ×5 (05:23→23:54)
[2020-09-14 05:27] LABS: BACTERIA,URINE TRACE /HPF; RBC,URINE 25-50 /HPF; SQUAMOUS EPITHELIAL CELL,UR 0-2 /HPF; WBC,URINE 0-2 /HPF
[2020-09-14 05:28] LABS: HYALINE CASTS, URINE 0-2 /LPF
[2020-09-14] MEDS: LEVOTHYROXINE 25 MCG (LEVOTHROID) TAB PO SCH (05:34)
[2020-09-14] MEDS: ARTIFICIAL TEARS OINT (LACRI-LUBE) 3.5 GM TUBE OU SCH ×4 (05:46→23:23)
[2020-09-14] MEDS: 1/2 NS IV SOLUTION 1,000 ML IV SCH ×2 (05:46→17:59)
[2020-09-14] MEDS: ADVAIR HFA 115/21 MCG INHALER 8 GM IH SCH ×2 (06:05→18:14)
--- NOTE | 2020-09-14 06:48 | Diagnostic Imaging Report ---
INDICATION: ET tube placement. COMPARISON: 09/14/2020 at 1:35 a.m. FINDINGS: Single view of the chest demonstrates ET tube in the mid trachea. There is partial visualization of midline NG tube. The heart is enlarged with central vascular congestion. There is no pneumothorax. IMPRESSION: 1. Well-positioned ET tube. 2. Well-positioned right entering PICC line. On the reprocessed images the NG tube is well within the stomach Dictated by: Dictated on workstation # [id number]
--- NOTE | 2020-09-14 07:15 | Diagnostic Imaging Report ---
Indication: Pneumonia, intubated Comparison: 09/13/2020 Findings: Single view of the chest demonstrates cardiac enlargement with persistent but slightly decreased bilateral pulmonary infiltrates. There is no pneumothorax. Support devices are stable. Impression: Slightly improved aeration. Dictated by: Dictated on workstation # [id number]
[2020-09-14] MEDS: MIDAZOLAM DRIP PRE-MIX 100 ML IV SCH (08:07)
[2020-09-14] MEDS: TAMSULOSIN 0.4 MG (FLOMAX) CAP PO SCH (08:07)
[2020-09-14] MEDS: VITAMIN D3 25 MCG (1,000 UNITS) TABLET PO SCH (08:10)
[2020-09-14] MEDS: ENOXAPARIN 40 MG/0.4 ML (LOVENOX) SYR SC SCH ×2 (08:10→19:37)
[2020-09-14] MEDS: guaiFENesin SYRUP 100 MG/5 ML 10 ML (ROBITUSSIN SF) PO SCH ×2 (08:10→19:36)
[2020-09-14] MEDS: FAMOTIDINE 20MG/2ML IV (PEPCID) IV SCH ×2 (08:10→19:37)
[2020-09-14] MEDS: ASPIRIN 81 MG CHEW (CHILDREN'S ASA) PO SCH (08:10)
[2020-09-14] MEDS: FINASTERIDE (PROSCAR) 5 MG TAB PO SCH (08:10)
[2020-09-14] MEDS: SENNOSIDES 8.6 MG (SENOKOT) TAB PO SCH ×2 (08:11→19:36)
[2020-09-14] MEDS: MAGNESIUM OXIDE (MAG-OX)400 MG TAB PO SCH ×2 (08:11→17:58)
[2020-09-14] MEDS: CALCIUM ACETATE 667 MG CAP (PHOSLO) PO SCH ×3 (08:12→17:58)
[2020-09-14] MEDS: dilTIAZem120 MG (CARDIZEM CD) CAP PO SCH (08:12)
[2020-09-14] MEDS: DOCUSATE SODIUM 100 MG (COLACE) CAP PO SCH ×2 (08:12→19:16)
--- NOTE | 2020-09-14 09:10 | NUR ---
FAMILY ALLOWED TO FACETIME WITH PATIENT. ALL QUESTIONS ANSWERED.
[2020-09-14] MEDS: UMECLIDINIUM BROMIDE (INCRUSE ELLIPTA) 7'S IH SCH (10:26)
--- NOTE | 2020-09-14 10:34 | Cardiology Progress Note ---
Subjective Date Seen by Provider: Sep 14, 2020 Time Seen by Provider: 10:32 Subjective/Events-last exam patient is sedated and intubated Review of Systems General: Other (sedated and intubated) Objective-Cardiology Exam Last Set of Vital Signs Vital Signs 09/14/20 09/14/20 09/14/20 07:47 08:10 10:00 Temp 36.6 Pulse 52 Resp 27 B/P (MAP) 129/75 (93) Pulse Ox 93 O2 Delivery Mechanical Ventilator O2 Flow Rate 50.00 FiO2 50 Capillary Refill : I&O Intake and Output 09/14/20 00:00 Intake Total 2420 ml Output Total 1850 ml Balance 570 ml Intake Oral 0 ml IV Total 1220 ml Tube Feeding 720 ml Other 480 ml Output Urine Total 1850 ml General: Alert, No Acute Distress, Other (intubated, sedated) HEENT: Atraumatic Lungs: Clear to Auscultation, Normal Air Movement Heart: Other (bradycardia) Extremities: No Clubbing Skin: No Rashes Neuro: Other (sedated and intubated) Psych/Mental Status: Other (sedated and intubated) Results Lab Laboratory Tests 09/14/20 03:00 A/P-Cardiology Admission Diagnosis COVID-19 Bilateral pneumonia CAD Chronic afib Assessment/Plan Acute respiratory failure, COVID-19 pneumonia, deteriorated, currently intubated and ventilator dependent, pronating physician today, managed by Dr. Lindsay Bradycardia, has been worsening recently. Probably secondary to treatment and hypoxemia, diltiazem is on hold. I will start theophylline and evaluate tolerance and response. Congestive heart failure,chronic diastolic heart failure and cor pulmonale with right-sided heart failure probably secondary to severe COPD. Most recent 2D Echo done Aug 2018 showing mild to moderate TR, PA 40mmHg. Difficult study, unable to visualize endocardium Chronic permanent atrial fibrillation, diagnosed in 2016, rate controlled. Has been unable to tolerate OAC in the past secondary to hx of GI bleed requiring blood transfusion. Currently on Lovenox and ASA CAD with a h/o CABG in [address] [facility] in [place], [place]. On cardiac cath of 11-11-15: Multivessel coronary disease including multiple more than 90% stenosis of the proximal and mid left anterior descending artery. The mid to distal left anterior descending artery is protected with a widely patent left internal mammary artery graft. The left circumflex artery had 99% ostial/proximal stenosis to which successful stenting was carried out with Promus Premier 3.5 x 20 mm stent with a reduction of stenosis to 0% residual. The distal left circumflex and its obtuse marginal branches have diffuse moderate to moderately severe disease which were not intervened on. The right coronary artery is dominant and had 90% proximal stenosis to which successful stenting was carried out with Promus Premier 2.75 x 28 mm stent with reduction of stenosis to 0% residual. The distal right coronary artery has multiple stenoses of 50 to 60%, which were not intervened on. Cardiac cath of 11-11-15 showed well preserved global left ventricular systolic function and ejection fraction of 55 to 60%. Elevated left ventricular end- diastolic pressure which was measured at approximately 20 mmHg. No significant mitral regurgitation. Chronic kidney disease stage 3-4, continue to monitor renal function. Chronic bilat leg swelling, likely due to venous insuff, no evidence of DVT on on venous duplex of 09/13/17, ABIs on 01/13/16 at [facility], Hypertension, monitor blood pressure Asthma - follows with Dr. Cadet as outpatient Quit smoking in early DM II, followed and managed by primary care physician Sleep apnea syndrome - CPAP therapy - managed by Dr. Paris and Dr. Cadet Overall poor prognosis CEM COMBS MD Sep 14, 2020 10:34
--- NOTE | 2020-09-14 10:38 | Progress Note ---
Subjective Date Seen by a Provider: Sep 14, 2020 Time Seen by a Provider: 09:30 Subjective/Events-last exam Remains intubated No significant change except PEEP at 10 FiO2 at 50% now Labs reviewed Imaging reviewed Objective Exam Last Set of Vital Signs Vital Signs Date Time Temp Pulse Resp B/P (MAP) Pulse Ox O2 Delivery O2 Flow Rate FiO2 09/14/20 10:29 65 28 95 40 09/14/20 10:00 129/75 (93) Mechanical Ventilator 50.00 09/14/20 07:47 36.6 Capillary Refill : I&O Intake and Output 09/14/20 00:00 Intake Total 2420 ml Output Total 1850 ml Balance 570 ml Intake Oral 0 ml IV Total 1220 ml Tube Feeding 720 ml Other 480 ml Output Urine Total 1850 ml General: Alert, Oriented X3, Cooperative, No Acute Distress Lungs: Clear to Auscultation, Other (intubated) Heart: Regular Rate Results Lab Laboratory Tests 09/13/20 11:53: Glucometer 251H 09/13/20 15:34: Glucometer 266H 09/13/20 19:31: Glucometer 253H 09/13/20 23:24: Glucometer 234H 09/14/20 03:00: White Blood Count 13.2H, Red Blood Count 4.14L, Hemoglobin 12.2L, Hematocrit 40, Mean Corpuscular Volume 96, Mean Corpuscular Hemoglobin 30, Mean Corpuscular Hemoglobin Concent 31L, Red Cell Distribution Width 13.5, Platelet Count 310, Mean Platelet Volume 10.5, Immature Granulocyte % (Auto) 3, Neutrophils (%) (Auto) 77H, Lymphocytes (%) (Auto) 9L, Monocytes (%) (Auto) 11, Eosinophils (%) (Auto) 0, Basophils (%) (Auto) 0, Neutrophils # (Auto) 10.2H, Lymphocytes # (Auto) 1.2, Monocytes # (Auto) 1.5H, Eosinophils # (Auto) 0.0, Basophils # (Auto) 0.0, Immature Granulocyte # (Auto) 0.3H, Blood Gas Puncture Site RIGHT RADIAL, Blood Gas Patient Temperature 36.3, Arterial Blood pH 7.39, Arterial Blood Partial Pressure CO2 51H, Arterial Blood Partial Pressure O2 81, Arterial Blood HCO3 31H, Arterial Blood Total CO2 32.5H, Arterial Blood Oxygen Saturation 96, Arterial Blood Base Excess 5.9H, Michael Test POSITIVE, Blood Gas Ventilator Setting YES, Blood Gas Inspired Oxygen 45, Sodium Level 151H, Potassium Level 4 .3, Chloride Level 113H, Carbon Dioxide Level 28, Anion Gap 10, Blood Urea Nitrogen 81H, Creatinine 1.27, Estimat Glomerular Filtration Rate 56, BUN/Creatinine Ratio 64, Glucose Level 255H, Calcium Level 8.7, Phosphorus Level 2.0L, Magnesium Level 3.9H, Procalcitonin 0.09 09/14/20 04:25: Urine Color YELLOW, Urine Clarity CLEAR, Urine pH 6.0, Urine Specific [place] 1.010L, Urine Protein NEGATIVE, Urine Glucose (UA) NEGATIVE, Urine Ketones NEGATIVE, Urine Nitrite NEGATIVE, Urine Bilirubin NEGATIVE, Urine Urobilinogen 0.2, Urine Leukocyte Esterase NEGATIVE, Urine RBC (Auto) 3+H, Urine RBC 25-50H, Urine WBC 0-2, Urine Squamous Epithelial Cells 0-2, Urine Crystals PRESENTH, Urine Bacteria TRACE, Urine Casts PRESENT, Urine Hyaline Casts 0-2H, Urine Mucus SMALLH, Urine Culture Indicated NO 09/14/20 07:50: Glucometer 217H Microbiology 09/09/20 Gram Stain - Final, Complete 09/09/20 Sputum Culture - Final, Complete Usual upper respiratory swetha 09/05/20 Blood Culture - Final, Complete No growth Assessment/Plan Assessment/Plan Assess & Plan/Chief Complaint Assessment: COVID-19 PNA Acute hypoxic respiratory failure requiring intubation 09/09/20 OHS Hypoxia Chronic respiratory failure maintained on 3L/min O2 at home Severe obesity Severe COPD FOrmer smoker Diastolic dysfunction Chronic AF OAC maintained CRI baseline creat 1.8 DM insulin dependent poor control HTN HLP BPH Chronic UTI Chronic cellulitis of lower extremities Anxiety Severe hypokalemia on large amounts of supplement Hypothyroidism Plan: Pulmo consult Cardiology consult Monitor diabetes Supportive care 09/07/20: biPAP Vapotherm Monitor kidney function Decrease insulin due to hypoglycemia 09/08/20: Monitor closely May need intubation 09/13/11: Intubated Day # 5 Prone positioning to continue PEEP 12 Updated 09/14/20: Remains intubated Monitor labs Diagnosis/Problems Diagnosis/Problems (1) Acute respiratory failure due to COVID-19 (2) COPD (chronic obstructive pulmonary disease) with acute bronchitis Status: Acute (3) Congestive heart failure with preserved LV function, NYHA class 3 Status: Acute (4) Obesity hypoventilation syndrome Status: Chronic (5) Chronic atrial fibrillation Status: Chronic (6) JOSE MANUEL (obstructive sleep apnea) Status: Chronic (7) Chronic kidney disease Status: Chronic (8) Essential (primary) hypertension Status: Chronic (9) CAD (coronary artery disease) Status: Chronic (10) Anemia Status: Acute (11) Diabetes mellitus Status: Chronic (12) Hypothyroidism Status: Chronic CHAO PAT DO Sep 14, 2020 10:38
[2020-09-14] MEDS ORDERED: THEOPHYLLINE ER 400 MG TAB (THEO-24) PO SCH (11:00)
--- NOTE | 2020-09-14 13:40 | NUR ---
Note pt currently receiving TF of Pulmocare via 150ml bolus feeds q4h with 30ml free water flushes before/after each bolus. Continue to increase TF by 30ml q8h as tolerated toward goal of 200ml bolus feed q4h. Will continue to follow and reassess as pt needs, intake, ands status change. Bryce Rasheed, MS RD LD [phone] cell
--- NOTE | 2020-09-14 14:58 | NUR ---
CM/SS: Per [facility] (Cinthya) she has requested that referral be sent to [facility]. Dr Whitney has requested that [facility] review for possible placement.
[2020-09-14] MEDS: MONTELUKAST 10 MG (SINGULAIR) TAB PO SCH (19:36)
[2020-09-14] MEDS: OXYBUTYNIN (DITROPAN) 5 MG TAB PO SCH (19:37)
[2020-09-15] VITALS (30 sets, daily range): BP systolic 95–153; BP diastolic 68–95
[2020-09-15] MEDS: RT-ALBUTEROL INHALER HFA (VENTOLIN HFA) 18 GM IH SCH ×6 (01:52→21:52)
[2020-09-15 03:12] LABS: ABG BASE EXCESS 5.3 MMOL/L (-2.5-2.5); ABG OXYGEN SATURATION 94 % (94-100); ABG PCO2 48 MMHG (35-45); ABG PH 7.41 (7.37-7.43); ABG PO2 67 MMHG (79-93); ABG TCO2 31.6 MMOL/L (21.0-31.0); ALLENS TEST POSITIVE; INSPIRED O2 45; PATIENT TEMP 35.9; VENTILATOR YES
[2020-09-15 03:13] LABS: BASOPHILS % (AUTO) 0 % (0-10); EOSINOPHILS % (AUTO) 0 % (0-10); HEMATOCRIT 41 % (40-54); HEMOGLOBIN 12.5 g/dL (13.3-17.7); LYMPHOCYTES % (AUTO) 7 % (12-44); MEAN CORPUSCULAR HEMOGLOBIN 29 pg (25-34); MEAN CORPUSCULAR HGB CONC 30 g/dL (32-36); MEAN CORPUSCULAR VOLUME 97 fL (80-99); MEAN PLATELET VOLUME 10.7 fL (9.0-12.2); MONOCYTES # (AUTO) 1.4 10^3/uL (0.0-1.0); MONOCYTES % (AUTO) 10 % (0-12); NEUTROPHILS % (AUTO) 81 % (42-75); PLATELET COUNT 301 10^3/uL (130-400); WHITE BLOOD COUNT 13.6 10^3/uL (4.3-11.0)
[2020-09-15 03:27] LABS: CHLORIDE 116 MMOL/L (98-107); POTASSIUM 4.4 MMOL/L (3.6-5.0); SODIUM 153 MMOL/L (135-145)
[2020-09-15 03:29] LABS: CALCIUM 8.6 MG/DL (8.5-10.1); GLUCOSE 296 MG/DL (70-105); TRIGLYCERIDES 226 MG/DL (<150)
[2020-09-15 03:31] LABS: CARBON DIOXIDE 28 MMOL/L (21-32)
[2020-09-15 03:33] LABS: CREATININE SERUM 1.09 MG/DL (0.60-1.30); GFR ESTIMATED > 60; PHOSPHORUS 2.3 MG/DL (2.3-4.7)
[2020-09-15 03:34] LABS: BUN/CREATININE RATIO 64
[2020-09-15 03:35] LABS: MAGNESIUM 3.8 MG/DL (1.6-2.4)
[2020-09-15] MEDS: MEROPENEM 500 MG in WATER (STERILE) FOR INJECTION 10 ML IV SCH ×4 (03:46→22:22)
[2020-09-15] MEDS: inSUlin ASPART (NovoLOG) 1 UNIT/0.01 ML (CHARGE PER UNIT) SC SCH ×6 (03:47→23:39)
[2020-09-15] MEDS: fentaNYL DRIP PRE-MIX 250 ML IV SCH ×4 (04:13→19:54)
[2020-09-15] MEDS ORDERED: FUROSEMIDE 40 MG/4 ML INJ (LASIX) IVP ONE (05:00)
--- NOTE | 2020-09-15 05:00 | Pulmonary Progress Note ---
Subjective Time Seen by a Provider: 04:53 Subjective/Events-last exam No complications noted. Sepsis Event Evaluation Height, Weight, BMI Height: 5'9.00" Weight: 400lbs. 0.0oz. 181.629734ro; 53.85 BMI Method:Stated Exam Exam Vital Signs Date Time Temp Pulse Resp B/P (MAP) Pulse Ox O2 Delivery O2 Flow Rate FiO2 09/15/20 04:12 Mechanical Ventilator 55.00 09/15/20 03:15 Mechanical Ventilator 45.00 09/15/20 03:00 54 21 95/84 (88) 91 Mechanical Ventilator 35.00 09/15/20 02:00 57 27 143/79 (100) 90 Mechanical Ventilator 35.00 09/15/20 01:52 57 28 96 45 09/15/20 01:00 56 28 138/82 (100) 93 Mechanical Ventilator 35.00 09/15/20 01:00 56 09/15/20 00:00 52 27 145/78 (100) 93 Mechanical Ventilator 35.00 09/14/20 23:00 62 32 135/78 (97) 92 Mechanical Ventilator 35.00 09/14/20 22:58 60 29 92 35 09/14/20 22:00 60 37 146/78 (100) 93 Mechanical Ventilator 35.00 09/14/20 21:00 62 27 150/77 (101) 92 Mechanical Ventilator 35.00 09/14/20 20:27 93 Mechanical Ventilator 35 09/14/20 20:00 60 27 145/77 (99) 91 Mechanical Ventilator 35.00 09/14/20 19:33 36.6 59 28 144/81 (102) 93 Mechanical Ventilator 35.00 09/14/20 19:00 65 28 142/76 (98) 95 Mechanical Ventilator 40.00 09/14/20 19:00 65 09/14/20 18:14 56 28 95 40 09/14/20 18:00 54 28 139/78 (98) 95 Mechanical Ventilator 40.00 09/14/20 17:00 61 28 144/83 (103) 95 Mechanical Ventilator 40.00 09/14/20 16:11 40.00 09/14/20 16:00 58 28 136/81 (99) 94 Mechanical Ventilator 50.00 09/14/20 15:28 36.7 09/14/20 15:18 36.4 66 93 40 09/14/20 15:00 62 28 150/79 (102) 94 Mechanical Ventilator 50.00 09/14/20 14:00 60 28 144/73 (96) 94 Mechanical Ventilator 50.00 09/14/20 14:00 61 30 93 40 09/14/20 13:00 67 09/14/20 13:00 61 27 145/79 (101) 94 Mechanical Ventilator 50.00 09/14/20 12:00 64 27 147/79 (101) 94 Mechanical Ventilator 50.00 09/14/20 11:21 36.4 09/14/20 11:00 77 36 148/79 (102) 92 Mechanical Ventilator 50.00 09/14/20 10:29 65 28 95 40 09/14/20 10:00 52 27 129/75 (93) 93 Mechanical Ventilator 50.00 09/14/20 09:00 50 27 130/77 (94) 93 Mechanical Ventilator 50.00 09/14/20 08:10 93 Mechanical Ventilator 50 09/14/20 08:07 50 27 137/69 09/14/20 08:00 53 27 137/69 (91) 92 Mechanical Ventilator 50.00 09/14/20 07:56 54 09/14/20 07:47 36.6 09/14/20 07:00 56 27 132/72 (92) 93 Mechanical Ventilator 50.00 09/14/20 06:05 61 28 90 45 09/14/20 06:00 59 29 132/71 (91) 89 Mechanical Ventilator 50.00 09/14/20 05:50 Mechanical Ventilator 45.00 09/14/20 05:00 55 27 131/72 (91) 92 Mechanical Ventilator 35.00 I & O0 09/15/20 07:00 Intake Total 2900 ml Output Total 1950 ml Balance 950 ml Height & Weight Height: 5'9.00" Weight: 400lbs. 0.0oz. 181.235498cr; 53.85 BMI Method:Stated General Appearance: Chronically ill, Mild Distress, Obese HEENT: PERRL/EOMI, Normal ENT Inspection, Pharynx Normal, Moist Mucous Membranes Neck: Full Range of Motion, Normal Inspection, Non Tender Respiratory: Chest Non Tender, Normal Breath Sounds, No Accessory Muscle Use, No Respiratory Distress, Decreased Breath Sounds Cardiovascular: No Edema, No Gallop, No JVD, No Murmur, Normal Peripheral Pulses, Irregularly Irregular Extremity: Normal Capillary Refill, Normal Inspection, Normal Range of Motion, Non Tender, No Calf Tenderness, No Pedal Edema Neurologic/Psychiatric: Alert, Oriented x3, No Motor/Sensory Deficits, Normal Mood/Affect, 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 Norm as Tested Skin: Normal Color, Warm/Dry Lymphatic: No Adenopathy Results Lab Laboratory Tests 09/14/20 03:00 09/15/20 03:00 Assessment/Plan Assessment/Plan Acute on chronic respiratory failure with ARDS secondary to COVID -Intubated 09/09 -Versed 6, Fentanyl 250 -TF -450/// 55% --Increase PEEP to 12 -Labs reviewed -Continue proning Hypertryglycerides -D/C propofol COVID 19 PNA - Merrem -Oxygen -Dx 09/05 -Decadron Hyperglycemia -Increase Levemir 52 units BID -Continue SSI C -Increase Accu Checks to Q 4 Hypernatremia -Continue 08/14 NS Secondary bacterial PNA - Merrem x 7-10days -MRSA swab is pending COPDAE -oxygen -SVNs Acute renal failure - Worsening with hyperphos -PHOSLO -Hold Lasix -Monitor hx of diastolic CHF -Lasix 80mg BID -- Hold Lasix -Spironolactone -- Hold -Cardiology is following IDDM Morbid obesity with JOSE MANUEL -Home CPAP Chronic Afib and CAD -Cardiology following Acute on CKD hx of Cellulitis and abscess of foot GI/DVT ppx -Lovenox 60mg BID -Add RAIMUNDO Garay DO Sep 15, 2020 05:00
[2020-09-15] MEDS: LEVOTHYROXINE 25 MCG (LEVOTHROID) TAB PO SCH (05:47)
[2020-09-15] MEDS: NYSTATIN ORAL SUSP 5 ML UDC PO SCH ×3 (06:10→17:36)
[2020-09-15] MEDS: ARTIFICIAL TEARS OINT (LACRI-LUBE) 3.5 GM TUBE OU SCH ×3 (06:10→17:36)
[2020-09-15] MEDS: ADVAIR HFA 115/21 MCG INHALER 8 GM IH SCH ×2 (06:36→18:54)
[2020-09-15] MEDS: FAMOTIDINE 20MG/2ML IV (PEPCID) IV SCH ×2 (07:53→19:54)
[2020-09-15] MEDS: guaiFENesin SYRUP 100 MG/5 ML 10 ML (ROBITUSSIN SF) PO SCH ×2 (07:53→19:54)
[2020-09-15] MEDS: VITAMIN D3 25 MCG (1,000 UNITS) TABLET PO SCH (07:54)
[2020-09-15] MEDS: ENOXAPARIN 40 MG/0.4 ML (LOVENOX) SYR SC SCH ×2 (07:54→19:55)
[2020-09-15] MEDS: ASPIRIN 81 MG CHEW (CHILDREN'S ASA) PO SCH (07:54)
[2020-09-15] MEDS: TAMSULOSIN 0.4 MG (FLOMAX) CAP PO SCH (07:54)
[2020-09-15] MEDS: FINASTERIDE (PROSCAR) 5 MG TAB PO SCH (07:54)
[2020-09-15] MEDS: DOCUSATE SODIUM 100 MG (COLACE) CAP PO SCH ×2 (07:54→21:31)
[2020-09-15] MEDS: SENNOSIDES 8.6 MG (SENOKOT) TAB PO SCH ×2 (07:54→19:54)
--- NOTE | 2020-09-15 08:01 | Diagnostic Imaging Report ---
INDICATION: Positive for COVID. Hypoxia Portable chest is somewhat limited due to portable technique and large body habitus. There is cardiomegaly with normal vascularity. There is patchy left perihilar airspace disease evident. There is no effusion or pneumothorax. The ET tube is in good position. An OG tube is present. IMPRESSION: There appears to be a left perihilar infiltrate with more opacification at this site compared to the 09/14/2020 study. Dictated by: Dictated on workstation # [id number]
[2020-09-15] MEDS ORDERED: THEOPHYLLINE ANHYDROUS 80 MG/15 ML FEEDING SCH (10:00)
[2020-09-15] MEDS: UMECLIDINIUM BROMIDE (INCRUSE ELLIPTA) 7'S IH SCH (11:47)
--- NOTE | 2020-09-15 12:35 | Cardiology Progress Note ---
Subjective Date Seen by Provider: Sep 15, 2020 Time Seen by Provider: 12:34 Subjective/Events-last exam Patient is sedated and intubated, in prone position Review of Systems General: Other (unable to provide review of systems) Objective-Cardiology Exam Last Set of Vital Signs Vital Signs 09/15/20 09/15/20 09/15/20 09:00 10:36 11:32 Temp 35.8 Pulse 55 Resp 28 B/P (MAP) 128/68 (88) Pulse Ox 98 O2 Delivery Mechanical Ventilator O2 Flow Rate 55.00 FiO2 55 Capillary Refill : I&O Intake and Output 09/15/20 00:00 Intake Total 3060 ml Output Total 2800 ml Balance 260 ml Intake Oral 0 ml IV Total 1980 ml Tube Feeding 660 ml Other 420 ml Output Urine Total 2800 ml General: Other (sedated and intubated) HEENT: Atraumatic Lungs: Other (intubated) Heart: Regular Rate Extremities: No Clubbing Skin: No Rashes Neuro: Other (sedated and intubated) Psych/Mental Status: Other (sedated and intubated) Results Lab Laboratory Tests 09/15/20 03:00 A/P-Cardiology Admission Diagnosis COVID-19 Bilateral pneumonia CAD Chronic afib Assessment/Plan Acute respiratory failure, COVID-19 pneumonia, deteriorated, currently intubated and ventilator dependent, pronating physician today, managed by Dr. Whitney Bradycardia, has been worsening recently. Probably secondary to treatment and hypoxemia, diltiazem is on hold. Started theophylline today. Continue to monitor heart rate Congestive heart failure,chronic diastolic heart failure and cor pulmonale with right-sided heart failure probably secondary to severe COPD. Most recent 2D Echo done Aug 2018 showing mild to moderate TR, PA 40mmHg. Difficult study, unable to visualize endocardium Chronic permanent atrial fibrillation, diagnosed in 2016, rate controlled. Has been unable to tolerate OAC in the past secondary to hx of GI bleed requiring blood transfusion. Currently on Lovenox and ASA CAD with a h/o CABG in 2006 at [facility] in [place], [place]. On cardiac cath of 11-11-15: Multivessel coronary disease including multiple more than 90% stenosis of the proximal and mid left anterior descending artery. The mid to distal left anterior descending artery is protected with a widely patent left internal mammary artery graft. The left circumflex artery had 99% ostial/proximal stenosis to which successful stenting was carried out with P romus Premier 3.5 x 20 mm stent with a reduction of stenosis to 0% residual. The distal left circumflex and its obtuse marginal branches have diffuse moderate to moderately severe disease which were not intervened on. The right coronary artery is dominant and had 90% proximal stenosis to which successful stenting was carried out with Promus Premier 2.75 x 28 mm stent with reduction of stenosis to 0% residual. The distal right coronary artery has multiple stenoses of 50 to 60%, which were not intervened on. Cardiac cath of 11-11-15 showed well preserved global left ventricular systolic function and ejection fraction of 55 to 60%. Elevated left ventricular end- diastolic pressure which was measured at approximately 20 mmHg. No significant mitral regurgitation. Chronic kidney disease stage 3-4, continue to monitor renal function. Chronic bilat leg swelling, likely due to venous insuff, no evidence of DVT on on venous duplex of 09/13/17, ABIs on 01/13/16 at [facility], Hypertension, monitor blood pressure Asthma - follows with Dr. Cadet as outpatient Quit smoking in early DM II, followed and managed by primary care physician Sleep apnea syndrome - CPAP therapy - managed by Dr. Paris and Dr. Cadet Overall poor prognosis CEM COMBS MD Sep 15, 2020 12:35
--- NOTE | 2020-09-15 13:38 | NUR ---
SPOKE WITH PATIENT AFTER VERIFYING [employer]. UPDATED ON PATIENT CONDITION. ANSWERED ALL QUESTIONS. STATED SHE WOULD LET US KNOW THE NEXT TIME THEY ARE AVAILABLE TO [employer].
--- NOTE | 2020-09-15 13:48 | NUR ---
Note pt currently receiving TF of [employer] via 200ml bolus feeds q4h with 30ml free water flushes before/after each bolus. Note pt is currently at goal for TF. Will continue to follow and reassess as pt needs, intake, ands status change. Bryce Rasheed, MS RD LD [phone] cell
[2020-09-15] MEDS: MIDAZOLAM DRIP PRE-MIX 100 ML IV SCH (14:32)
--- NOTE | 2020-09-15 15:37 | Progress Note ---
Subjective Date Seen by a Provider: Sep 15, 2020 Time Seen by a Provider: 09:15 Subjective/Events-last exam PEEP had to be increased to 12 Chest X-ray shows no change Has been intubated for one week Guarded prognosis Objective Exam Last Set of Vital Signs Vital Signs Date Time Temp Pulse Resp B/P (MAP) Pulse Ox O2 Delivery O2 Flow Rate FiO2 09/15/20 15:00 69 21 135/83 (100) 97 Mechanical Ventilator 40.00 09/15/20 14:52 40 09/15/20 11:32 35.8 Capillary Refill : I&O Intake and Output 09/15/20 00:00 Intake Total 3060 ml Output Total 2800 ml Balance 260 ml Intake Oral 0 ml IV Total 1980 ml Tube Feeding 660 ml Other 420 ml Output Urine Total 2800 ml General: Other (intubated) Lungs: Clear to Auscultation Heart: Regular Rate Results Lab Laboratory Tests 09/14/20 19:31: Glucometer 282H 09/14/20 23:19: Glucometer 279H 09/15/20 02:00: B-Type Natriuretic Peptide 216.9H 09/15/20 03:00: White Blood Count 13.6H, Red Blood Count 4.27L, Hemoglobin 12.5L, Hematocrit 41, Mean Corpuscular Volume 97, Mean Corpuscular Hemoglobin 29, Mean Corpuscular Hemoglobin Concent 30L, Red Cell Distribution Width 13.8, Platelet Count 301, Mean Platelet Volume 10.7, Immature Granulocyte % (Auto) 2, Neutrophils (%) (Auto) 81H, Lymphocytes (%) (Auto) 7L, Monocytes (%) (Auto) 10, Eosinophils (%) (Auto) 0, Basophils (%) (Auto) 0, Neutrophils # (Auto) 11.0H, Lymphocytes # (Auto) 1.0, Monocytes # (Auto) 1.4H, Eosinophils # (Auto) 0.0, Basophils # (Auto) 0.0, Immature Granulocyte # (Auto) 0.3H, Blood Gas Puncture Site RIGHT RADIAL, Blood Gas Patient Temperature 35.9, Arterial Blood pH 7.41, Arterial Blood Partial Pressure CO2 48H, Arterial Blood Partial Pressure O2 67L, Arterial Blood HCO3 30H, Arterial Blood Total CO2 31.6H, Arterial Blood Oxygen Saturation 94, Arterial Blood Base Excess 5.3H, Michael Test POSITIVE, Blood Gas Ventilator Setting YES, Blood Gas Inspired Oxygen 45, Sodium Level 153H, Potassium Level 4.4, Chloride Level 116H, Carbon Dioxide Level 28, Anion Gap 9, Blood Urea Nitrogen 70H, Creatinine 1.09, Estimat Glomerular Filtration Rate > 60, BUN/Creatinine Ratio 64, Glucose Level 296H, Calcium Level 8.6, Phosphorus Level 2.3, Magnesium Level 3.8H, Triglycerides Level 226H 09/15/20 07:51: Glucometer 253H 09/15/20 10:54: Glucometer 226H Microbiology 09/14/20 Blood Culture - Preliminary, Resulted No growth 09/09/20 Gram Stain - Final, Complete 09/09/20 Sputum Culture - Final, Complete Usual upper respiratory swetha Assessment/Plan Assessment/Plan Assess & Plan/Chief Complaint Assessment: COVID-19 PNA Acute hypoxic respiratory failure requiring intubation 09/09/20 OHS Hypoxia Chronic respiratory failure maintained on 3L/min O2 at home Severe obesity Severe COPD FOrmer smoker Diastolic dysfunction Chronic AF OAC maintained CRI baseline creat 1.8 DM insulin dependent poor control HTN HLP BPH Chronic UTI Chronic cellulitis of lower extremities Anxiety Severe hypokalemia on large amounts of supplement Hypothyroidism Plan: Pulmo consult Cardiology consult Monitor diabetes Supportive care 09/07/20: biPAP Vapotherm Monitor kidney function Decrease insulin due to hypoglycemia 09/08/20: Monitor closely May need intubation 09/13/11: Intubated Day # 5 Prone positioning to continue PEEP 12 Updated 09/14/20: Remains intubated Monitor labs 09/15/20: Intubation continues Monitor PEEP Diagnosis/Problems Diagnosis/Problems (1) Acute respiratory failure due to COVID-19 (2) COPD (chronic obstructive pulmonary disease) with acute bronchitis Status: Acute (3) Congestive heart failure with preserved LV function, NYHA class 3 Status: Acute (4) Obesity hypoventilation syndrome Status: Chronic (5) Chronic atrial fibrillation Status: Chronic (6) JOSE MANUEL (obstructive sleep apnea) Status: Chronic (7) Chronic kidney disease Status: Chronic (8) Essential (primary) hypertension Status: Chronic (9) CAD (coronary artery disease) Status: Chronic (10) Anemia Status: Acute (11) Diabetes mellitus Status: Chronic (12) Hypothyroidism Status: Chronic CHAO PAT DO Sep 15, 2020 15:37
[2020-09-15] MEDS: OXYBUTYNIN (DITROPAN) 5 MG TAB PO SCH (19:55)
[2020-09-15] MEDS: MONTELUKAST 10 MG (SINGULAIR) TAB PO SCH (19:55)
[2020-09-15] MEDS: THEOPHYLLINE ANHYDROUS 80 MG/15 ML FEEDING SCH (19:55)
[2020-09-16] VITALS (30 sets, daily range): BP systolic 110–174; BP diastolic 70–97
[2020-09-16] MEDS: ARTIFICIAL TEARS OINT (LACRI-LUBE) 3.5 GM TUBE OU SCH ×5 (00:44→23:38)
[2020-09-16] MEDS: NYSTATIN ORAL SUSP 5 ML UDC PO SCH ×5 (00:44→23:33)
[2020-09-16] MEDS: fentaNYL DRIP PRE-MIX 250 ML IV SCH ×6 (01:00→20:32)
[2020-09-16] MEDS: MIDAZOLAM DRIP PRE-MIX 100 ML IV SCH ×3 (01:01→20:36)
[2020-09-16] MEDS: RT-ALBUTEROL INHALER HFA (VENTOLIN HFA) 18 GM IH SCH ×7 (01:03→22:16)
[2020-09-16] MEDS: LORazepam INJ 2 MG/ML (ATIVAN) VIAL IVP PRN ×2 (01:46→03:28)
[2020-09-16] MEDS: 1/2 NS IV SOLUTION 1,000 ML IV SCH (02:54)
[2020-09-16 03:27] LABS: BASOPHILS # (AUTO) 0.1 10^3/uL (0.0-0.1); BASOPHILS % (AUTO) 0 % (0-10); EOSINOPHILS # (AUTO) 0.2 10^3/uL (0.0-0.3); EOSINOPHILS % (AUTO) 1 % (0-10); HEMATOCRIT 41 % (40-54); HEMOGLOBIN 12.2 g/dL (13.3-17.7); LYMPHOCYTES % (AUTO) 7 % (12-44); MEAN CORPUSCULAR HEMOGLOBIN 29 pg (25-34); MEAN CORPUSCULAR HGB CONC 30 g/dL (32-36); MEAN CORPUSCULAR VOLUME 98 fL (80-99); MEAN PLATELET VOLUME 10.4 fL (9.0-12.2); MONOCYTES # (AUTO) 0.9 10^3/uL (0.0-1.0); MONOCYTES % (AUTO) 6 % (0-12); NEUTROPHILS # (AUTO) 12.2 10^3/uL (1.8-7.8); NEUTROPHILS % (AUTO) 84 % (42-75); PLATELET COUNT 298 10^3/uL (130-400); WHITE BLOOD COUNT 14.5 10^3/uL (4.3-11.0)
[2020-09-16 03:27] LABS: ABG BASE EXCESS 6.7 MMOL/L (-2.5-2.5); ABG OXYGEN SATURATION 92 % (94-100); ABG PCO2 58 MMHG (35-45); ABG PH 7.36 (7.37-7.43); ABG PO2 73 MMHG (79-93); ABG TCO2 33.5 MMOL/L (21.0-31.0)
[2020-09-16 03:31] LABS: ALLENS TEST POSITIVE; INSPIRED O2 100%; PATIENT TEMP 37.8; VENTILATOR YES
[2020-09-16 03:51] LABS: BUN/CREATININE RATIO 63; CALCIUM 7.6 MG/DL (8.5-10.1); CARBON DIOXIDE 26 MMOL/L (21-32); CHLORIDE 120 MMOL/L (98-107); CREATININE SERUM 0.82 MG/DL (0.60-1.30); GFR ESTIMATED > 60; GLUCOSE 158 MG/DL (70-105); MAGNESIUM 2.9 MG/DL (1.6-2.4); POTASSIUM 3.7 MMOL/L (3.6-5.0); SODIUM 156 MMOL/L (135-145)
[2020-09-16 04:19] LABS: EOSINOPHILS % (MANUAL) 1 %; LYMPHOCYTES % (MANUAL) 7 %; MONOCYTES % (MANUAL) 3 %; NEUTROPHILS % (MANUAL) 87 %; RBC MORPH NORMAL; REACTIVE LYMPHOCYTES 2 %
[2020-09-16] MEDS: inSUlin ASPART (NovoLOG) 1 UNIT/0.01 ML (CHARGE PER UNIT) SC SCH ×6 (04:42→23:33)
[2020-09-16] MEDS: THEOPHYLLINE ANHYDROUS 80 MG/15 ML FEEDING SCH (04:48)
[2020-09-16] MEDS: MEROPENEM 500 MG in WATER (STERILE) FOR INJECTION 10 ML IV SCH ×4 (04:48→23:33)
[2020-09-16] MEDS ORDERED: PHARMACY TO DOSE IV SCH (05:30)
--- NOTE | 2020-09-16 05:31 | Pulmonary Progress Note ---
Subjective Time Seen by a Provider: 05:27 Subjective/Events-last exam Sedated on vent Sepsis Event Evaluation Height, Weight, BMI Height: 5'9.00" Weight: 400lbs. 0.0oz. 181.038367wx; 53.85 BMI Method:Stated Exam Exam Vital Signs Date Time Temp Pulse Resp B/P (MAP) Pulse Ox O2 Delivery O2 Flow Rate FiO2 09/16/20 04:55 38.0 09/16/20 04:00 96 31 167/97 (120) 93 Mechanical Ventilator 45.00 09/16/20 03:00 107 173/92 (119) 95 Mechanical Ventilator 45.00 09/16/20 02:00 102 37 174/91 (118) 95 Mechanical Ventilator 45.00 09/16/20 01:05 79 30 96 40 09/16/20 01:01 148/87 09/16/20 01:00 88 28 148/87 (107) 92 Mechanical Ventilator 45.00 09/16/20 01:00 91 09/16/20 00:00 81 28 150/85 (106) 93 Mechanical Ventilator 45.00 09/15/20 23:40 37.3 Mechanical Ventilator 45.00 09/15/20 23:00 76 28 146/87 (106) 92 Mechanical Ventilator 35.00 09/15/20 22:00 76 27 147/84 (105) 95 Mechanical Ventilator 35.00 09/15/20 21:52 79 30 93 40 09/15/20 21:00 73 27 145/85 (105) 94 Mechanical Ventilator 35.00 09/15/20 20:00 93 Mechanical Ventilator 45 09/15/20 19:52 79 28 143/95 (111) 92 Mechanical Ventilator 35.00 09/15/20 19:05 36.3 09/15/20 19:00 80 09/15/20 19:00 82 20 134/83 (100) 92 Mechanical Ventilator 35.00 09/15/20 18:54 72 30 94 35 09/15/20 18:15 35.00 09/15/20 18:00 72 28 137/88 (104) 92 Mechanical Ventilator 40.00 09/15/20 17:00 63 27 129/79 (96) 95 Mechanical Ventilator 40.00 09/15/20 16:00 75 28 132/74 (93) 94 Mechanical Ventilator 40.00 09/15/20 15:44 36.0 09/15/20 15:00 69 21 135/83 (100) 97 Mechanical Ventilator 40.00 09/15/20 14:52 64 28 94 40 09/15/20 14:33 Mechanical Ventilator 40.00 09/15/20 14:32 55 28 123/83 09/15/20 14:00 72 28 139/83 (101) 96 Mechanical Ventilator 55.00 09/15/20 13:00 62 28 135/86 (102) 95 Mechanical Ventilator 55.00 09/15/20 12:52 64 09/15/20 12:00 69 28 136/79 (98) 94 Mechanical Ventilator 55.00 09/15/20 11:32 35.8 09/15/20 11:00 64 27 134/79 (97) 94 Mechanical Ventilator 55.00 09/15/20 10:36 55 28 98 55 09/15/20 10:00 55 28 132/84 (100) 97 Mechanical Ventilator 55.00 09/15/20 09:00 53 28 128/68 (88) 93 Mechanical Ventilator 55.00 09/15/20 08:04 36.1 09/15/20 08:00 58 22 133/77 (95) 92 Mechanical Ventilator 55.00 09/15/20 08:00 93 Mechanical Ventilator 50 09/15/20 07:00 53 27 132/72 (92) 92 Mechanical Ventilator 55.00 09/15/20 06:49 57 09/15/20 06:36 52 28 93 55 09/15/20 06:00 50 28 130/77 (94) 92 Mechanical Ventilator 55.00 09/15/20 05:47 35.6 I & O 09/16/20 07:00 Intake Total 900 ml Output Total 3025 ml Balance -2125 ml Height & Weight Height: 5'9.00" Weight: 400lbs. 0.0oz. 181.729800ig; 53.85 BMI Method:Stated General Appearance: Chronically ill, Mild Distress, Obese HEENT: PERRL/EOMI, Normal ENT Inspection, Pharynx Normal, Moist Mucous Membranes Neck: Full Range of Motion, Normal Inspection, Non Tender Respiratory: Chest Non Tender, Normal Breath Sounds, No Accessory Muscle Use, No Respiratory Distress, Decreased Breath Sounds Cardiovascular: No Edema, No Gallop, No JVD, No Murmur, Normal Peripheral Pulses, Irregularly Irregular Extremity: Normal Capillary Refill, Normal Inspection, Normal Range of Motion, Non Tender, No Calf Tenderness, No Pedal Edema Neurologic/Psychiatric: Alert, Oriented x3, No Motor/Sensory Deficits, Normal 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, 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 Norm as Tested Skin: Normal Color, Warm/Dry Lymphatic: No Adenopathy Results Lab Laboratory Tests 09/15/20 03:00 09/16/20 03:15 Assessment/Plan Assessment/Plan Acute on chronic respiratory failure with ARDS secondary to COVID -Intubated 09/09 -Versed 8, Fentanyl 300 -TF -450/// 55% -- currently requiring 100% secondary to acute respiratory distress --Increase PEEP to 12 -Worsening leukocytosis and fever -Will add Vancomycin to Merrem -Labs reviewed -Continue proning Hypertryglycerides -D/C propofol COVID 19 PNA - Merrem -Oxygen -Dx 09/05 -Decadron Hyperglycemia -Increase Levemir 52 units BID -Continue SSI C -Increase Accu Checks to Q 4 Hypernatremia -Continue 1/2 NS at 30 -Add 150 of free water to OG tube Q 4 hrs Secondary bacterial PNA - Merrem x 7-10days -MRSA swab is pending -Add Vanco 2/4 COPDAE -oxygen -SVNs Acute renal failure - Worsening with hyperphos -PHOSLO -Hold Lasix -Monitor hx of diastolic CHF -Lasix 80mg BID -- Hold Lasix -Spironolactone -- Hold -Cardiology is following IDDM Morbid obesity with JOSE MANUEL -Home CPAP Chronic Afib and CAD -Cardiology following Acute on CKD hx of Cellulitis and abscess of foot RAIMUNDO MATTHEWS DO Sep 16, 2020 05:31
[2020-09-16] MEDS ORDERED: NS (IVPB) 250 ML ONE (06:00)
[2020-09-16] MEDS ORDERED: VANCOMYCIN 1 GM/NS 250 ML IVPB IV SCH ×2 (06:00)
[2020-09-16] MEDS ORDERED: VANCOMYCIN 1000 MG/VIAL ONE ×2 (06:00→06:39)
[2020-09-16] MEDS: LEVOTHYROXINE 25 MCG (LEVOTHROID) TAB PO SCH (06:14)
[2020-09-16] MEDS: ACETAMINOPHEN 325 MG TABLET PO PRN (06:15)
[2020-09-16] MEDS ORDERED: VANCOMYCIN 500 MG/VIAL IV ONE (06:39)
[2020-09-16] MEDS ORDERED: NS IV 500 ML 500 ML ONE (06:40)
[2020-09-16] MEDS ORDERED: VANCOMYCIN 1500 MG/NS 500 ML IVPB IV SCH ×2 (07:00)
--- NOTE | 2020-09-16 07:17 | Diagnostic Imaging Report ---
EXAM: CHEST 1 VIEW, AP/PA ONLY INDICATION: COVID positive. Respiratory failure. COMPARISON: Chest radiograph 09/15/2020. FINDINGS: ETT terminates between the level of the clavicles and azeem. Cardiomegaly. Dense airspace opacities throughout both lungs. No pneumothorax. IMPRESSION: 1. Persistent dense airspace opacities throughout both lungs. 2. ETT tip between the level of the clavicles and azeem. Dictated by: Dictated on workstation # [id number]
[2020-09-16] MEDS: ASPIRIN 81 MG CHEW (CHILDREN'S ASA) PO SCH (08:30)
[2020-09-16] MEDS: DOCUSATE SODIUM 100 MG (COLACE) CAP PO SCH (08:30)
[2020-09-16] MEDS: FAMOTIDINE 20MG/2ML IV (PEPCID) IV SCH ×2 (08:30→20:33)
[2020-09-16] MEDS: TAMSULOSIN 0.4 MG (FLOMAX) CAP PO SCH (08:30)
[2020-09-16] MEDS: guaiFENesin SYRUP 100 MG/5 ML 10 ML (ROBITUSSIN SF) PO SCH ×2 (08:31→20:33)
[2020-09-16] MEDS: FINASTERIDE (PROSCAR) 5 MG TAB PO SCH (08:31)
[2020-09-16] MEDS: ENOXAPARIN 40 MG/0.4 ML (LOVENOX) SYR SC SCH ×2 (08:31→20:33)
[2020-09-16] MEDS: SENNOSIDES 8.6 MG (SENOKOT) TAB PO SCH ×2 (08:31→20:33)
[2020-09-16] MEDS: VITAMIN D3 25 MCG (1,000 UNITS) TABLET PO SCH (08:31)
--- NOTE | 2020-09-16 09:02 | Cardiology Progress Note ---
Subjective Date Seen by Provider: Sep 16, 2020 Time Seen by Provider: 09:01 Subjective/Events-last exam patient is sedated and intubated Review of Systems General: Other (unable to provide review of systems) Objective-Cardiology Exam Last Set of Vital Signs Vital Signs 09/16/20 09/16/20 09/16/20 09/16/20 06:55 07:00 07:50 08:46 Temp 37.4 Pulse 99 Resp 24 B/P (MAP) 123/77 (92) Pulse Ox 94 O2 Delivery Mechanical Ventilator O2 Flow Rate 80.00 FiO2 65 Capillary Refill : I&O Intake and Output 09/16/20 00:00 Intake Total 1420 ml Output Total 3150 ml Balance -1730 ml Intake Oral 0 ml Tube Feeding 1000 ml Other 420 ml Output Urine Total 3150 ml General: Other (intubated) HEENT: Atraumatic Lungs: Clear to Auscultation Heart: Regular Rate Extremities: No Clubbing Skin: No Rashes Neuro: Other (sedated and intubated) Psych/Mental Status: Other (sedated and intubated) Results Lab Laboratory Tests 09/16/20 03:15 A/P-Cardiology Admission Diagnosis COVID-19 Bilateral pneumonia CAD Chronic afib Assessment/Plan Acute respiratory failure, COVID-19 pneumonia, deteriorated, currently intubated and ventilator dependent, pronating physician today, managed by Dr. Whitney Bradycardia, back to tachycardia at this time, discontinue theophylline and resume diltiazem and adjust doses as needed Congestive heart failure,chronic diastolic heart failure and cor pulmonale with right-sided heart failure probably secondary to severe COPD. Most recent 2D Echo done Aug 2018 showing mild to moderate TR, PA 40mmHg. Difficult study, unable to visualize endocardium Chronic permanent atrial fibrillation, diagnosed in 2016, rate controlled. Has been unable to tolerate OAC in the past secondary to hx of GI bleed requiring blood transfusion. Currently on Lovenox and ASA CAD with a h/o CABG in 2006 at [facility] in [place], [place]. On cardiac cath of 11-11-15: Multivessel coronary disease including multiple more than 90% stenosis of the proximal and mid left anterior descending artery. The mid to distal left anterior descending artery is protected with a widely patent left internal mammary artery graft. The left circumflex artery had 99% ostial/proximal stenosis to which successful stenting was carried out with Promus Premier 3.5 x 20 mm stent with a reduction of stenosis to 0% residual. The distal left circumflex and its obtuse marginal branches have diffuse moderate to moderately severe disease which were not intervened on. The right coronary artery is dominant and had 90% proximal stenosis to which successful stenting was carried out with Promus Premier 2.75 x 28 mm stent with reduction of stenosis to 0% residual. The distal right coronary artery has multiple stenoses of 50 to 60%, which were not intervened on. Cardiac cath of 11-11-15 showed well preserved global left ventricular systolic function and ejection fraction of 55 to 60%. Elevated left ventricular end- diastolic pressure which was measured at approximately 20 mmHg. No significant mitral regurgitation. Chronic kidney disease stage 3-4, continue to monitor renal function. Chronic bilat leg swelling, likely due to venous insuff, no evidence of DVT on on venous duplex of 09/13/17, ABIs on 01/13/16 at [facility], Hypertension, monitor blood pressure Asthma - follows with Dr. Cadet as outpatient Quit smoking in early DM II, followed and managed by primary care physician Sleep apnea syndrome - CPAP therapy - managed by Dr. Paris and Dr. Cadet Overall poor prognosis CEM COMBS MD Sep 16, 2020 09:02
[2020-09-16] MEDS: ADVAIR HFA 115/21 MCG INHALER 8 GM IH SCH ×2 (09:30→18:24)
[2020-09-16] MEDS: UMECLIDINIUM BROMIDE (INCRUSE ELLIPTA) 7'S IH SCH (09:31)
--- NOTE | 2020-09-16 12:18 | Progress Note ---
Subjective Date Seen by a Provider: Sep 16, 2020 Time Seen by a Provider: 12:00 Subjective/Events-last exam Still intubated Updated has COVID now Noted increase in PEEP and FiO2 at 80% Objective Exam Last Set of Vital Signs Vital Signs Date Time Temp Pulse Resp B/P (MAP) Pulse Ox O2 Delivery O2 Flow Rate FiO2 09/16/20 12:11 36.7 Mechanical Ventilator 60.00 09/16/20 11:24 90 28 110/70 09/16/20 11:00 96 09/16/20 09:31 65 Capillary Refill : I&O Intake and Output 09/16/20 00:00 Intake Total 1420 ml Output Total 3150 ml Balance -1730 ml Intake Oral 0 ml Tube Feeding 1000 ml Other 420 ml Output Urine Total 3150 ml General: Other (intubated) Lungs: Clear to Auscultation Heart: Regular Rate Results Lab Laboratory Tests 09/15/20 17:34: Glucometer 196H 09/15/20 19:51: Glucometer 205H 09/16/20 03:10: Blood Gas Puncture Site RIGHT RADIAL, Blood Gas Patient Temperature 37.8, Arterial Blood pH 7.36L, Arterial Blood Partial Pressure CO2 58H, Arterial Blood Partial Pressure O2 73L, Arterial Blood HCO3 32H, Arterial Blood Total CO2 33.5H , Arterial Blood Oxygen Saturation 92L, Arterial Blood Base Excess 6.7H, Michael Test POSITIVE, Blood Gas Ventilator Setting YES, Blood Gas Inspired Oxygen 100% 09/16/20 03:15: White Blood Count 14.5H, Red Blood Count 4.21L, Hemoglobin 12.2L, Hematocrit 41, Mean Corpuscular Volume 98, Mean Corpuscular Hemoglobin 29, Mean Corpuscular Hemoglobin Concent 30L, Red Cell Distribution Width 14.1, Platelet Count 298, Mean Platelet Volume 10.4, Immature Granulocyte % (Auto) 2, Neutrophils (%) (Auto) 84H, Lymphocytes (%) (Auto) 7L, Monocytes (%) (Auto) 6, Eosinophils (%) (Auto) 1, Basophils (%) (Auto) 0, Neutrophils # (Auto) 12.2H, Lymphocytes # (Auto) 1.0, Monocytes # (Auto) 0.9, Eosinophils # (Auto) 0.2, Basophils # (Auto) 0.1, Immature Granulocyte # (Auto) 0.2H, Neutrophils % (Manual) 87, Lymphocytes % (Manual) 7, Monocytes % (Manual) 3, Eosinophils % (Manual) 1, Reactive Lymphocytes 2, Blood Morphology Comment NORMAL, Sodium Level 156H, Potassium Level 3.7, Chloride Level 120H, Carbon Dioxide Level 26, Anion Gap 10, Blood Urea Nitrogen 52H, Creatinine 0.82, Estimat Glomerular Filtration Rate > 60, BUN/Creatinine Ratio 63, Glucose Level 158H, Calcium Level 7.6L, Phosphorus Level 2.0L, Magnesium Level 2.9H 09/16/20 07:52: Glucometer 131H 09/16/20 11:01: Glucometer 156H Microbiology 09/14/20 Blood Culture - Preliminary, Resulted No growth 09/09/20 Gram Stain - Final, Complete 09/09/20 Sputum Culture - Final, Complete Usual upper respiratory swteha Assessment/Plan Assessment/Plan Assess & Plan/Chief Complaint Assessment: COVID-19 PNA Acute hypoxic respiratory failure requiring intubation 09/09/20 OHS Hypoxia Chronic respiratory failure maintained on 3L/min O2 at home Severe obesity Severe COPD FOrmer smoker Diastolic dysfunction Chronic AF OAC maintained CRI baseline creat 1.8 DM insulin dependent poor control HTN HLP BPH Chronic UTI Chronic cellulitis of lower extremities Anxiety Severe hypokalemia on large amounts of supplement Hypothyroidism Plan: Pulmo consult Cardiology consult Monitor diabetes Supportive care 09/07/20: biPAP Vapotherm Monitor kidney function Decrease insulin due to hypoglycemia 09/08/20: Monitor closely May need intubation 09/13/11: Intubated Day # 5 Prone positioning to continue PEEP 12 Updated 09/14/20: Remains intubated Monitor labs 09/15/20: Intubation continues Monitor PEEP 09/16/20: Updated PEEP weaning FiO2 wean Diagnosis/Problems Diagnosis/Problems (1) Acute respiratory failure due to COVID-19 (2) COPD (chronic obstructive pulmonary disease) with acute bronchitis Status: Acute (3) Congestive heart failure with preserved LV function, NYHA class 3 Status: Acute (4) Obesity hypoventilation syndrome Status: Chronic (5) Chronic atrial fibrillation Status: Chronic (6) JOSE MANUEL (obstructive sleep apnea) Status: Chronic (7) Chronic kidney disease Status: Chronic (8) Essential (primary) hypertension Status: Chronic (9) CAD (coronary artery disease) Status: Chronic (10) Anemia Status: Acute (11) Diabetes mellitus Status: Chronic (12) Hypothyroidism Status: Chronic CHAO PAT DO Sep 16, 2020 12:18
--- NOTE | 2020-09-16 12:46 | NUR ---
PTS UPDATED BY DR PAT.
--- NOTE | 2020-09-16 14:46 | NUR ---
Note pt currently receiving Pulmocare via 200ml bolus feeds q4h. Note pt is tolerating well, and is at goal for TF. Will continue to follow and reassess as pt needs, intake, and status change. MS JAROD Echavarria [phone] cell Addendum: 09/16/20 at [address] Note pt currently receiving 75ml free water flushes before/after bolus feeds. MS JAROD Alford
[2020-09-16] MEDS: VANCOMYCIN 1250 MG/NS 250 ML IVPB IV SCH ×2 (17:21)
[2020-09-16] MEDS: OXYBUTYNIN (DITROPAN) 5 MG TAB PO SCH (20:33)
[2020-09-16] MEDS: MONTELUKAST 10 MG (SINGULAIR) TAB PO SCH (20:33)
[2020-09-16] MEDS: DOCUSATE SODIUM 10 MG/ML 10 ML UDC (COLACE) GT SCH (20:34)
[2020-09-17] VITALS (29 sets, daily range): BP systolic 90–158; BP diastolic 57–99
[2020-09-17] MEDS: fentaNYL DRIP PRE-MIX 250 ML IV SCH ×9 (00:05→23:34)
[2020-09-17] MEDS: RT-ALBUTEROL INHALER HFA (VENTOLIN HFA) 18 GM IH SCH ×6 (01:38→22:39)
[2020-09-17 02:19] LABS: ABG BASE EXCESS 3.2 MMOL/L (-2.5-2.5); ABG OXYGEN SATURATION 94 % (94-100); ABG PCO2 56 MMHG (35-45); ABG PO2 80 MMHG (79-93); ABG TCO2 30.2 MMOL/L (21.0-31.0); BASOPHILS % (AUTO) 0 % (0-10); EOSINOPHILS # (AUTO) 0.3 10^3/uL (0.0-0.3); EOSINOPHILS % (AUTO) 2 % (0-10); HEMATOCRIT 39 % (40-54); HEMOGLOBIN 11.1 g/dL (13.3-17.7); LYMPHOCYTES # (AUTO) 1.7 10^3/uL (1.0-4.0); LYMPHOCYTES % (AUTO) 11 % (12-44); MEAN CORPUSCULAR HEMOGLOBIN 29 pg (25-34); MEAN CORPUSCULAR HGB CONC 29 g/dL (32-36); MEAN CORPUSCULAR VOLUME 100 fL (80-99); MEAN PLATELET VOLUME 11.3 fL (9.0-12.2); MONOCYTES # (AUTO) 0.8 10^3/uL (0.0-1.0); MONOCYTES % (AUTO) 5 % (0-12); NEUTROPHILS % (AUTO) 81 % (42-75); PLATELET COUNT 235 10^3/uL (130-400)
[2020-09-17 02:20] LABS: ALLENS TEST YES-POS; INSPIRED O2 80%; PATIENT TEMP 37.3; VENTILATOR YES
[2020-09-17 02:22] LABS: ABG PH 7.33 (7.37-7.43)
[2020-09-17 02:29] LABS: POTASSIUM 4.4 MMOL/L (3.6-5.0)
[2020-09-17 02:30] LABS: CALCIUM 7.4 MG/DL (8.5-10.1)
[2020-09-17 02:35] LABS: CREATININE SERUM 1.27 MG/DL (0.60-1.30); PHOSPHORUS 2.7 MG/DL (2.3-4.7)
[2020-09-17 02:37] LABS: MAGNESIUM 3.2 MG/DL (1.6-2.4)
[2020-09-17] MEDS: inSUlin ASPART (NovoLOG) 1 UNIT/0.01 ML (CHARGE PER UNIT) SC SCH ×6 (03:45→23:06)
[2020-09-17] MEDS: MEROPENEM 500 MG in WATER (STERILE) FOR INJECTION 10 ML IV SCH ×4 (03:46→23:03)
--- NOTE | 2020-09-17 04:23 | Pulmonary Progress Note ---
Subjective Time Seen by a Provider: 04:23 Subjective/Events-last exam Sedated on vent. Sepsis Event Evaluation Height, Weight, BMI Height: 5'9.00" Weight: 400lbs. 0.0oz. 181.022505lk; 53.85 BMI Method:Stated Exam Exam Vital Signs Date Time Temp Pulse Resp B/P (MAP) Pulse Ox O2 Delivery O2 Flow Rate FiO2 09/17/20 03:46 Mechanical Ventilator 70.00 09/17/20 01:53 37.3 Mechanical Ventilator 80.00 09/17/20 01:26 Mechanical Ventilator 90.00 09/17/20 01:23 Mechanical Ventilator 100.00 09/17/20 01:22 Mechanical Ventilator 70.00 09/17/20 01:04 85 28 94 60 09/17/20 01:00 89 09/16/20 23:37 36.6 Mechanical Ventilator 55.00 09/16/20 23:00 92 27 125/72 (89) 95 Mechanical Ventilator 60.00 09/16/20 22:16 83 28 94 60 09/16/20 22:00 82 27 114/72 (86) 95 Mechanical Ventilator 60.00 09/16/20 21:00 91 27 121/72 (88) 94 Mechanical Ventilator 60.00 09/16/20 20:00 94 22 121/71 (88) 95 Mechanical Ventilator 60.00 09/16/20 20:00 94 Mechanical Ventilator 40 09/16/20 19:00 Mechanical Ventilator 60.00 09/16/20 19:00 93 09/16/20 19:00 90 28 125/78 (94) 94 Mechanical Ventilator 60.00 09/16/20 18:23 88 28 93 60 09/16/20 18:00 90 27 118/70 (86) 94 Mechanical Ventilator 80.00 09/16/20 17:00 92 24 116/74 (88) 94 Mechanical Ventilator 80.00 09/16/20 16:00 94 24 125/71 (89) 93 Mechanical Ventilator 80.00 09/16/20 15:33 37.3 09/16/20 15:00 94 18 118/81 (93) 93 Mechanical Ventilator 80.00 09/16/20 14:27 92 28 93 60 09/16/20 14:00 93 21 117/72 (87) 93 Mechanical Ventilator 80.00 09/16/20 13:00 96 09/16/20 13:00 96 28 123/89 (100) 93 Mechanical Ventilator 80.00 09/16/20 12:11 36.7 Mechanical Ventilator 60.00 09/16/20 12:00 96 22 133/79 (97) 93 Mechanical Ventilator 80.00 09/16/20 11:24 90 28 110/70 09/16/20 11:00 92 21 128/90 (103) 96 Mechanical Ventilator 80.00 09/16/20 10:00 106 29 130/79 (96) 91 Mechanical Ventilator 80.00 09/16/20 09:31 90 28 94 65 09/16/20 09:00 92 22 124/82 (96) 95 Mechanical Ventilator 80.00 09/16/20 08:46 Mechanical Ventilator 80.00 09/16/20 08:00 99 20 118/77 (91) 95 Mechanical Ventilator 45.00 09/16/20 08:00 94 Mechanical Ventilator 80 09/16/20 07:50 37.4 09/16/20 07:00 99 24 123/77 (92) 94 Mechanical Ventilator 45.00 09/16/20 07:00 89 09/16/20 06:55 112 28 94 65 09/16/20 06:00 96 25 136/82 (100) 98 Mechanical Ventilator 45.00 09/16/20 05:00 89 24 138/83 (101) 98 Mechanical Ventilator 45.00 09/16/20 04:55 38.0 I & O 09/17/20 07:00 Intake Total 4777.5 ml Output Total 1000 ml Balance 3777.5 ml Height & Weight Height: 5'9.00" Weight: 400lbs. 0.0oz. [id number]; 53.85 BMI Method:Stated General Appearance: Chronically ill, Mild Distress, Obese HEENT: PERRL/EOMI, Normal ENT Inspection, Pharynx Normal, Moist Mucous Membranes Neck: Full Range of Motion, Normal Inspection, Non Tender Respiratory: Chest Non Tender, Normal Breath Sounds, No Accessory Muscle Use, No Respiratory Distress, Decreased Breath Sounds Cardiovascular: No Edema, No Gallop, No JVD, No Murmur, Normal Peripheral Pulses, Irregularly Irregular Extremity: Normal Capillary Refill, Normal Inspection, Normal Range of Motion, Non Tender, No Calf Tenderness, No Pedal Edema Neurologic/Psychiatric: Alert, Oriented x3, No Motor/Sensory Deficits, Normal 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, 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 Norm as Tested Skin: Normal Color, Warm/Dry Lymphatic: No Adenopathy Results Lab Laboratory Tests 09/16/20 03:15 09/17/20 01:50 Assessment/Plan Assessment/Plan Acute on chronic respiratory failure with ARDS secondary to COVID -Intubated 09/09 -Versed 10, Fentanyl 300 -TF - continue -/ 70% -- currently requiring 100% secondary to acute respiratory distress -increase PEEP to 16 - Vancomycin to Merrem -Labs reviewed -Continue proning Hypertryglycerides -D/C propofol COVID 19 PNA - Merrem -Oxygen -Dx 09/05 -Decadron Hyperglycemia -Increase Levemir 52 units BID -Continue SSI C -Increase Accu Checks to Q 4 Hypernatremia -Continue 08/14 NS at 30 -Add 150 of free water to OG tube Q 4 hrs Secondary bacterial PNA - Merrem x 7-10days -MRSA swab is pending -Add Vanco 2/4 COPDAE -oxygen -SVNs Acute renal failure - -PHOSLO -Hold Lasix -Monitor hx of diastolic CHF -Lasix 80mg BID -- Hold Lasix -Spironolactone -- Hold -Cardiology is following IDDM Morbid obesity with JOSE MANUEL -Home CPAP Chronic Afib and CAD -Cardiology following Acute on CKD hx of Cellulitis and abscess of foot RAIMUNDO MATTHEWS DO Sep 17, 2020 04:23
[2020-09-17] MEDS: 1/2 NS IV SOLUTION 1,000 ML IV SCH (06:25)
[2020-09-17] MEDS: NYSTATIN ORAL SUSP 5 ML UDC PO SCH ×4 (06:26→23:03)
[2020-09-17] MEDS: ARTIFICIAL TEARS OINT (LACRI-LUBE) 3.5 GM TUBE OU SCH ×4 (06:26→23:03)
[2020-09-17] MEDS: LEVOTHYROXINE 25 MCG (LEVOTHROID) TAB PO SCH (06:26)
[2020-09-17] MEDS: VANCOMYCIN 1250 MG/NS 250 ML IVPB IV SCH ×4 (06:26→18:05)
[2020-09-17] MEDS: MIDAZOLAM DRIP PRE-MIX 100 ML IV SCH ×2 (06:27→15:27)
[2020-09-17] MEDS: ADVAIR HFA 115/21 MCG INHALER 8 GM IH SCH ×2 (07:04→18:54)
[2020-09-17] MEDS ORDERED: ROCURONIUM 10 MG/ML 5 ML SYRINGE IV NR (07:30)
--- NOTE | 2020-09-17 07:31 | Diagnostic Imaging Report ---
INDICATION: Respiratory distress, Covid positive. TECHNIQUE: Single view chest 1:17 AM. CORRELATION STUDY: 09/16/2020 FINDINGS: Poststernotomy changes. Several sternal wires are fragmented and disrupted. Endotracheal tube projects over the trachea just below the clavicles. Right-sided central line tip over the SVC but is limited in evaluation. Extensive bilateral pulmonary opacities are persisting. Stable to perhaps minimally improved. Remains most consolidated left lung base. Heart size and mediastinum are largely obscured but appear to be enlarged. Vasculature is not well assessed. IMPRESSION: 1. Extensive bilateral pulmonary opacities persisting. Overall severity appears to be slightly improved from prior. Likely underlying infiltrate and/or edema. Dictated by: Dictated on workstation # [id number]
[2020-09-17] MEDS: VITAMIN D3 25 MCG (1,000 UNITS) TABLET PO SCH (07:46)
[2020-09-17] MEDS: FINASTERIDE (PROSCAR) 5 MG TAB PO SCH (07:46)
[2020-09-17] MEDS: TAMSULOSIN 0.4 MG (FLOMAX) CAP PO SCH (07:46)
[2020-09-17] MEDS: ENOXAPARIN 40 MG/0.4 ML (LOVENOX) SYR SC SCH ×2 (07:47→20:42)
[2020-09-17] MEDS: ASPIRIN 81 MG CHEW (CHILDREN'S ASA) PO SCH (07:47)
[2020-09-17] MEDS: FAMOTIDINE 20MG/2ML IV (PEPCID) IV SCH ×2 (07:47→20:43)
[2020-09-17] MEDS: DOCUSATE SODIUM 10 MG/ML 10 ML UDC (COLACE) GT SCH ×2 (07:47→20:42)
[2020-09-17] MEDS: SENNOSIDES 8.6 MG (SENOKOT) TAB PO SCH ×2 (07:50→20:42)
[2020-09-17] MEDS: guaiFENesin SYRUP 100 MG/5 ML 10 ML (ROBITUSSIN SF) PO SCH ×2 (07:50→20:42)
--- NOTE | 2020-09-17 08:49 | NUR ---
0714-DR. PAT CALLED AND UPDATED ON PT HAVING LABORED BELLY BREATHING. TELEPHONE ORDERS RECEIVED TO GIVE KAUSHAL 50MG IV ONE TIME NOW.
--- NOTE | 2020-09-17 10:46 | Progress Note ---
Subjective Date Seen by a Provider: Sep 17, 2020 Time Seen by a Provider: 10:00 Subjective/Events-last exam Patient the same Requiring more PEEP Less UOP noted Updated and had a long conversation with her and we decided to make him DNR Continued care will continue for now Likely patient will require terminal extubation Objective Exam Last Set of Vital Signs Vital Signs Date Time Temp Pulse Resp B/P (MAP) Pulse Ox O2 Delivery O2 Flow Rate FiO2 09/17/20 10:00 89 24 104/70 (81) 94 Mechanical Ventilator 80.00 09/17/20 09:58 80 09/17/20 07:24 37.0 Capillary Refill : I&O Intake and Output 09/17/20 00:00 Intake Total 4177.5 ml Output Total 1600 ml Balance 2577.5 ml Intake Oral 0 ml IV Total 2257.5 ml Tube Feeding 1000 ml Other 920 ml Output Urine Total 1600 ml General: Other (intubated) Results Lab Laboratory Tests 09/16/20 11:01: Glucometer 156H 09/16/20 15:36: Glucometer 180H 09/16/20 19:34: Glucometer 174H 09/16/20 22:32: Glucometer 219H 09/17/20 01:50: White Blood Count 16.0H, Red Blood Count 3.85L, Hemoglobin 11.1L, Hematocrit 39L , Mean Corpuscular Volume 100H, Mean Corpuscular Hemoglobin 29, Mean Corpuscular Hemoglobin Concent 29L, Red Cell Distribution Width 14.1, Platelet Count 235, Mean Platelet Volume 11.3, Immature Granulocyte % (Auto) 1, Neutrophils (%) (Auto) 81H, Lymphocytes (%) (Auto) 11L, Monocytes (%) (Auto) 5, Eosinophils (%) (Auto) 2, Basophils (%) (Auto) 0, Neutrophils # (Auto) 13.0H, Lymphocytes # (Auto) 1.7, Monocytes # (Auto) 0.8, Eosinophils # (Auto) 0.3, Basophils # (Auto) 0.0, Immature Granulocyte # (Auto) 0.2H, Blood Gas Puncture Site LEFT RADIAL, Blood Gas Patient Temperature 37.3, Arterial Blood pH 7.33*L, Arterial Blood Pa rtial Pressure CO2 56H, Arterial Blood Partial Pressure O2 80, Arterial Blood HCO3 29H, Arterial Blood Total CO2 30.2, Arterial Blood Oxygen Saturation 94, Arterial Blood Base Excess 3.2H, Michael Test YES-POS, Blood Gas Ventilator Setting YES, Blood Gas Inspired Oxygen 80%, Sodium Level 149H, Potassium Level 4.4, Chloride Level 115H, Carbon Dioxide Level 26, Anion Gap 8, Blood Urea Nitrogen 65H, Creatinine 1.27, Estimat Glomerular Filtration Rate 56, BUN/Creatinine Ratio 51, Glucose Level 270H, Calcium Level 7.4L, Phosphorus Level 2.7, Magnesium Level 3.2H, Triglycerides Level 99 09/17/20 07:42: Glucometer 190H Microbiology 09/14/20 Blood Culture - Preliminary, Resulted No growth 09/09/20 Gram Stain - Final, Complete 09/09/20 Sputum Culture - Final, Complete Usual upper respiratory swetha Assessment/Plan Assessment/Plan Assess & Plan/Chief Complaint Assessment: COVID-19 PNA Acute hypoxic respiratory failure requiring intubation 09/09/20 OHS Hypoxia Chronic respiratory failure maintained on 3L/min O2 at home Severe obesity Severe COPD FOrmer smoker Diastolic dysfunction Chronic AF OAC maintained CRI baseline creat 1.8 DM insulin dependent poor control HTN HLP BPH Chronic UTI Chronic cellulitis of lower extremities Anxiety Severe hypokalemia on large amounts of supplement Hypothyroidism Plan: Pulmo consult Cardiology consult Monitor diabetes Supportive care 09/07/20: biPAP Vapotherm Monitor kidney function Decrease insulin due to hypoglycemia 09/08/20: Monitor closely May need intubation 09/13/11: Intubated Day # 5 Prone positioning to continue PEEP 12 Updated 09/14/20: Remains intubated Monitor labs 09/15/20: Intubation continues Monitor PEEP 09/16/20: Updated PEEP weaning FiO2 wean 09/17/20: Patient worse DNR obtained May need terminal extubation if worsens Diagnosis/Problems Diagnosis/Problems (1) Acute respiratory failure due to COVID-19 (2) COPD (chronic obstructive pulmonary disease) with acute bronchitis Status: Acute (3) Congestive heart failure with preserved LV function, NYHA class 3 Status: Acute (4) Obesity hypoventilation syndrome Status: Chronic (5) Chronic atrial fibrillation Status: Chronic (6) JOSE MANUEL (obstructive sleep apnea) Status: Chronic (7) Chronic kidney disease Status: Chronic (8) Essential (primary) hypertension Status: Chronic (9) CAD (coronary artery disease) Status: Chronic (10) Anemia Status: Acute (11) Diabetes mellitus Status: Chronic (12) Hypothyroidism Status: Chronic CHAO PAT DO Sep 17, 2020 10:46
--- NOTE | 2020-09-17 11:42 | NUR ---
1140-DR. PAT CALLED PT AND UPDATED.
--- NOTE | 2020-09-17 14:12 | NUR ---
1410-DR. PAT NOTIFIED OF PT DECREASED URINE OUTPUT. DR. PAT STATED SHE WOULD PUT ORDERS IN FOR LASIX.
--- NOTE | 2020-09-17 14:33 | NUR ---
Note pt currently receiving Pulmocare via 200ml bolus feeds q4h, with 75ml free water flushes before/after each bolus. Note pt is tolerating well, and is at goal for TF. Will continue to follow and reassess as pt needs, intake, and status change. Bryce Rasheed, MS RD LD [phone] cell
[2020-09-17] MEDS ORDERED: FUROSEMIDE 40 MG/4 ML INJ (LASIX) IVP ONE (15:00)
[2020-09-17] MEDS ORDERED: TROUGH ORDER-PHARMACY XX NR (17:00)
--- NOTE | 2020-09-17 17:56 | Cardiology Progress Note ---
Cardiology SOAP Progress Note Subjective: intubated/ventilated Objective: I&O/Vital Signs 09/18/20 09/18/20 09/18/20 09/18/20 05:00 06:00 07:00 07:00 Pulse 46 39 42 41 Resp 22 20 B/P (MAP) 86/53 (64) 82/47 (59) 72/43 (53) Pulse Ox 95 96 95 O2 Delivery Mechanical Ventilator Mechanical Ventilator Mechanical Ventilator O2 Flow Rate 80.00 80.00 80.00 09/18/20 09/18/20 09/18/20 09/18/20 07:12 07:17 07:50 08:00 Temp 35.7 Pulse 43 43 46 Resp 39 39 B/P (MAP) 81/43 (56) Pulse Ox 88 88 93 O2 Delivery Mechanical Ventilator O2 Flow Rate 80.00 FiO2 75 75 09/18/20 09/18/20 09/18/20 09/18/20 08:00 09:00 10:00 11:00 Pulse 38 43 43 B/P (MAP) 77/48 (58) 83/46 (58) 83/39 (54) Pulse Ox 90 89 92 91 O2 Delivery Mechanical Ventilator Mechanical Ventilator Mechanical Ventilator Mechanical Ventilator O2 Flow Rate 80.00 80.00 80.00 FiO2 70 09/18/20 12:00 Pulse 42 B/P (MAP) 86/72 (77) Pulse Ox 92 O2 Delivery Mechanical Ventilator O2 Flow Rate 80.00 09/18/20 00:00 Intake Total 2060 ml Output Total 200 ml Balance 1860 ml Weight (Pounds): 400 Weight (Ounces): 0.0 Weight (Calculated Kilograms): 181.850711 Respiratory: other (intubated/ventilated.) Cardiovascular: irregularly irregular Results/Procedures: Labs Laboratory Tests 09/17/20 17:09: Vancomycin Level Trough 28.8*H 09/17/20 20:38: Glucometer 220H 09/17/20 23:06: Glucometer 229H 09/18/20 04:05: White Blood Count 14.8H, Red Blood Count 3.32L, Hemoglobin 9.6L, Hematocrit 34L, Mean Corpuscular Volume 102H, Mean Corpuscular Hemoglobin 29, Mean Corpuscular Hemoglobin Concent 28L, Red Cell Distribution Width 14.5, Platelet Count 179, Mean Platelet Volume 11.6, Immature Granulocyte % (Auto) 1, Neutrophils (%) (Auto) 88H, Lymphocytes (%) (Auto) 5L, Monocytes (%) (Auto) 4, Eosinophils (%) (Auto) 2, Basophils (%) (Auto) 0, Neutrophils # (Auto) 13.0H, Lymphocytes # (Auto) 0.7L, Monocytes # (Auto) 0.6, Eosinophils # (Auto) 0.4H, Basophils # (Auto) 0.0, Immature Granulocyte # (Auto) 0.1, Sodium Level 151H, Potassium Level 5.4H, Chloride Level 115H, Carbon Dioxide Level 26, Anion Gap 10, Blood Urea Nitrogen 91H, Creatinine 2.32H, Estimat Glomerular Filtration Rate 28, BUN/Creatinine Ratio 39, Glucose Level 239H, Calcium Level 8.0L, Phosphorus Level 5.5H, Magnesium Level 3.6H 09/18/20 07:13: Blood Gas Puncture Site RT RAD, Blood Gas Patient Temperature 95, Arterial Blood pH 7.30*L, Arterial Blood Partial Pressure CO2 50H, Arterial Blood Partial Pressure O2 58L, Arterial Blood HCO3 24, Arterial Blood Total CO2 26.0, Arterial Blood Oxygen Saturation 92L, Arterial Blood Base Excess -1.6, Michael Test YES- POS, Blood Gas Ventilator Setting YES, Blood Gas Inspired Oxygen 75% 09/18/20 07:50: Glucometer 208H 09/18/20 08:06: Vancomycin Level Trough 20.5H Microbiology 09/14/20 Blood Culture - Preliminary, Resulted No growth 09/09/20 Gram Stain - Final, Complete 09/09/20 Sputum Culture - Final, Complete Usual upper respiratory swetha A/P: Assessment/Dx: COVID-19 Bilateral pneumonia CAD Chronic afib Plan: Acute respiratory failure, COVID-19 pneumonia, deteriorated, currently intubated and ventilator dependent, pronating physician today, managed by Dr. Whitney Bradycardia, back to tachycardia at this time, discontinue theophylline and resume diltiazem and adjust doses as needed Congestive heart failure,chronic diastolic heart failure and cor pulmonale with right-sided heart failure probably secondary to severe COPD. Most recent 2D Echo done Aug 2018 showing mild to moderate TR, PA 40mmHg. Difficult study, unable to visualize endocardium Chronic permanent atrial fibrillation, diagnosed in 2015, rate controlled. Has been unable to tolerate OAC in the past secondary to hx of GI bleed requiring blood transfusion. Currently on Lovenox and ASA CAD with a h/o CABG in 2006 at [facility] in [place], [place]. On cardiac cath of 11-11-15: Multivessel coronary disease including multiple more than 90% stenosis of the proximal and mid left anterior descending artery. The mid to distal left anterior descending artery is protected with a widely patent left internal mammary artery graft. The left circumflex artery had 99% ostial/proximal stenosis to which successful stenting was carried out with Promus Premier 3.5 x 20 mm stent with a reduction of stenosis to 0% residual. The distal left circumflex and its obtuse marginal branches have diffuse moderate to moderately severe disease which were not intervened on. The right coronary artery is dominant and had 90% proximal stenosis to which successful stenting was carried out with Promus Premier 2.75 x 28 mm stent with reduction of stenosis to 0% residual. The distal right coronary artery has multiple stenoses of 50 to 60%, which were not intervened on. Cardiac cath of 11-11-15 showed well preserved global left ventricular systolic function and ejection fraction of 55 to 60%. Elevated left ventricular end- diastolic pressure which was measured at approximately 20 mmHg. No significant mitral regurgitation. Chronic kidney disease stage 3-4, continue to monitor renal function. Chronic bilat leg swelling, likely due to venous insuff, no evidence of DVT on on venous duplex of 09/13/17, ABIs on 01/13/16 at [facility], Hypertension, monitor blood pressure Asthma - follows with Dr. Cadet as outpatient Quit smoking in early DM II, followed and managed by primary care physician Sleep apnea syndrome - CPAP therapy - managed by Dr. Paris and Dr. Cadet Overall poor prognosis Thank you for your consultation. Please call me if you have any questions. Symone Costello MD, FACP, FACC, FSCAI, FHRS, CCDS Interventional Cardiology Cardiac Electrophysiology Vascular Medicine and Endovascular Interventions Patricia COSTELLO MD Sep 17, 2020 17:56
--- NOTE | 2020-09-17 18:18 | NUR ---
1817-TELE ICU NOTIFIED OF PT DECREASED URINE OUTPUT OF 50ML TOTALLING 100ML IN THE LAST 8HOURS. NEW ORDERS RECEIVED.
--- NOTE | 2020-09-17 18:22 | NUR ---
VANCOMYCIN TROUGH 28.8 ON 09/17 @ 1719. RECHECK VANCOMYCIN LEVEL 09/18 @ 0700.
[2020-09-17] MEDS: MONTELUKAST 10 MG (SINGULAIR) TAB PO SCH (20:42)
[2020-09-17] MEDS: ALBUMIN 25% 25 GM/100 ML 50 ML IV SCH ×2 (20:42→23:03)
[2020-09-17] MEDS: OXYBUTYNIN (DITROPAN) 5 MG TAB PO SCH (20:42)
[2020-09-18] VITALS (16 sets, daily range): BP systolic 72–149; BP diastolic 39–78
[2020-09-18] MEDS: MIDAZOLAM DRIP PRE-MIX 100 ML IV SCH (01:42)
[2020-09-18] MEDS: RT-ALBUTEROL INHALER HFA (VENTOLIN HFA) 18 GM IH SCH ×2 (01:51→07:11)
[2020-09-18] MEDS: LORazepam INJ 2 MG/ML (ATIVAN) VIAL IVP PRN ×2 (02:01→12:42)
[2020-09-18] MEDS: fentaNYL DRIP PRE-MIX 250 ML IV SCH ×2 (02:41→06:22)
[2020-09-18] MEDS ORDERED: DexMEDEtomidine 250 ML DRIP 250 ML IV SCH (03:00)
[2020-09-18] MEDS ORDERED: DexMEDEtomidine PRE MIX 100 ML IV ONE (03:03)
[2020-09-18] MEDS ORDERED: DexMEDEtomidine PRE MIX 100 ML IV SCH (03:15)
[2020-09-18] MEDS: MEROPENEM 500 MG in WATER (STERILE) FOR INJECTION 10 ML IV SCH ×2 (03:53→08:00)
[2020-09-18 04:18] LABS: BASOPHILS % (AUTO) 0 % (0-10); EOSINOPHILS # (AUTO) 0.4 10^3/uL (0.0-0.3); EOSINOPHILS % (AUTO) 2 % (0-10); HEMATOCRIT 34 % (40-54); HEMOGLOBIN 9.6 g/dL (13.3-17.7); LYMPHOCYTES # (AUTO) 0.7 10^3/uL (1.0-4.0); LYMPHOCYTES % (AUTO) 5 % (12-44); MEAN CORPUSCULAR HEMOGLOBIN 29 pg (25-34); MEAN CORPUSCULAR HGB CONC 28 g/dL (32-36); MEAN CORPUSCULAR VOLUME 102 fL (80-99); MEAN PLATELET VOLUME 11.6 fL (9.0-12.2); MONOCYTES # (AUTO) 0.6 10^3/uL (0.0-1.0); MONOCYTES % (AUTO) 4 % (0-12); NEUTROPHILS % (AUTO) 88 % (42-75); PLATELET COUNT 179 10^3/uL (130-400); WHITE BLOOD COUNT 14.8 10^3/uL (4.3-11.0)
[2020-09-18 04:31] LABS: POTASSIUM 5.4 MMOL/L (3.6-5.0)
[2020-09-18 04:36] LABS: CREATININE SERUM 2.32 MG/DL (0.60-1.30); PHOSPHORUS 5.5 MG/DL (2.3-4.7)
[2020-09-18 04:38] LABS: MAGNESIUM 3.6 MG/DL (1.6-2.4)
--- NOTE | 2020-09-18 05:40 | Progress Note ---
Subjective Date Seen by a Provider: Sep 18, 2020 Objective Exam Last Set of Vital Signs Vital Signs Date Time Temp Pulse Resp B/P (MAP) Pulse Ox O2 Delivery O2 Flow Rate FiO2 09/18/20 03:13 75 26 152/85 09/18/20 01:51 92 75 09/18/20 01:30 Mechanical Ventilator 80.00 09/17/20 23:30 35.9 Capillary Refill : I&O Intake and Output 09/18/20 00:00 Intake Total 5112.5 ml Output Total 675 ml Balance 4437.5 ml Intake Oral 0 ml IV Total 2712.5 ml Tube Feeding 1200 ml Other 1200 ml Output Urine Total 675 ml Results Lab Laboratory Tests 09/17/20 07:42: Glucometer 190H 09/17/20 12:48: Glucometer 170H 09/17/20 15:28: Glucometer 191H 09/17/20 17:09: Vancomycin Level Trough 28.8*H 09/17/20 20:38: Glucometer 220H 09/17/20 23:06: Glucometer 229H 09/18/20 04:05: White Blood Count 14.8H, Red Blood Count 3.32L, Hemoglobin 9.6L, Hematocrit 34L, Mean Corpuscular Volume 102H, Mean Corpuscular Hemoglobin 29, Mean Corpuscular Hemoglobin Concent 28L, Red Cell Distribution Width 14.5, Platelet Count 179, Mean Platelet Volume 11.6, Immature Granulocyte % (Auto) 1, Neutrophils (%) (Auto) 88H, Lymphocytes (%) (Auto) 5L, Monocytes (%) (Auto) 4, Eosinophils (%) (Auto) 2, Basophils (%) (Auto) 0, Neutrophils # (Auto) 13.0H, Lymphocytes # (Auto) 0.7L, Monocytes # (Auto) 0.6, Eosinophils # (Auto) 0.4H, Basophils # (Auto) 0.0, Immature Granulocyte # (Auto) 0.1, Sodium Level 151H, Potassium Level 5.4H, Chloride Level 115H, Carbon Dioxide Level 26, Anion Gap 10, Blood Urea Nitrogen 91H, Creatinine 2.32H, Estimat Glomerular Filtration Rate 28, BUN/Creatinine Ratio 39, Glucose Level 239H, Calcium Level 8.0L, Phosphorus Level 5.5H, Magnesium Level 3.6H Microbiology 09/14/20 Blood Culture - Preliminary, Resulted No growth 09/09/20 Gram Stain - Final, Complete 09/09/20 Sputum Culture - Final, Complete Usual upper respiratory swetha Assessment/Plan Assessment/Plan Assess & Plan/Chief Complaint Assessment: COVID-19 PNA Acute hypoxic respiratory failure requiring intubation 09/09/20 OHS Hypoxia Chronic respiratory failure maintained on 3L/min O2 at home Severe obesity Severe COPD FOrmer smoker Diastolic dysfunction Chronic AF OAC maintained CRI baseline creat 1.8 DM insulin dependent poor control HTN HLP BPH Chronic UTI Chronic cellulitis of lower extremities Anxiety Severe hypokalemia on large amounts of supplement Hypothyroidism Plan: Pulmo consult Cardiology consult Monitor diabetes Supportive care 09/07/20: biPAP Vapotherm Monitor kidney function Decrease insulin due to hypoglycemia 09/08/20: Monitor closely May need intubation 09/13/11: Intubated Day # 5 Prone positioning to continue PEEP 12 Updated 09/14/20: Remains intubated Monitor labs 09/15/20: Intubation continues Monitor PEEP 09/16/20: Updated PEEP weaning FiO2 wean 09/17/20: Patient worse DNR obtained May need terminal extubation if worsens Diagnosis/Problems Diagnosis/Problems (1) Acute respiratory failure due to COVID-19 (2) COPD (chronic obstructive pulmonary disease) with acute bronchitis Status: Acute (3) Congestive heart failure with preserved LV function, NYHA class 3 Status: Acute (4) Obesity hypoventilation syndrome Status: Chronic (5) Chronic atrial fibrillation Status: Chronic (6) JOSE MANUEL (obstructive sleep apnea) Status: Chronic (7) Chronic kidney disease Status: Chronic (8) Essential (primary) hypertension Status: Chronic (9) CAD (coronary artery disease) Status: Chronic (10) Anemia Status: Acute (11) Diabetes mellitus Status: Chronic (12) Hypothyroidism Status: Chronic CHAO PAT DO Sep 18, 2020 05:40
[2020-09-18] MEDS: 1/2 NS IV SOLUTION 1,000 ML IV SCH (05:51)
[2020-09-18] MEDS: LEVOTHYROXINE 25 MCG (LEVOTHROID) TAB PO SCH (06:22)
[2020-09-18] MEDS: inSUlin ASPART (NovoLOG) 1 UNIT/0.01 ML (CHARGE PER UNIT) SC SCH ×3 (06:22→13:41)
[2020-09-18] MEDS: NYSTATIN ORAL SUSP 5 ML UDC PO SCH ×2 (06:22→13:41)
[2020-09-18] MEDS: ARTIFICIAL TEARS OINT (LACRI-LUBE) 3.5 GM TUBE OU SCH ×2 (06:22→13:41)
[2020-09-18] MEDS ORDERED: NS IV 1000 ML 1,000 ML ONE (06:47)
[2020-09-18] MEDS ORDERED: TROUGH ORDER-PHARMACY XX NR (07:00)
[2020-09-18] MEDS ORDERED: ALBUMIN 25% 25 GM/100 ML 100 ML IV ONE (07:00)
--- NOTE | 2020-09-18 07:03 | NUR ---
E-ICU NOTIFIED OF PATIENTS LOW BLOOD PRESSURE. NEW ORDER RECEIVED FOR ALBUMIN AT THIS TIME.
[2020-09-18] MEDS: ADVAIR HFA 115/21 MCG INHALER 8 GM IH SCH (07:11)
[2020-09-18 07:16] LABS: ABG BASE EXCESS -1.6 MMOL/L (-2.5-2.5); ABG OXYGEN SATURATION 92 % (94-100); ABG PCO2 50 MMHG (35-45); ABG PO2 58 MMHG (79-93)
[2020-09-18 07:22] LABS: ALLENS TEST YES-POS; INSPIRED O2 75%; PATIENT TEMP 95; VENTILATOR YES
[2020-09-18] MEDS: ENOXAPARIN 40 MG/0.4 ML (LOVENOX) SYR SC SCH (07:59)
[2020-09-18] MEDS: FINASTERIDE (PROSCAR) 5 MG TAB PO SCH (08:00)
[2020-09-18] MEDS: SENNOSIDES 8.6 MG (SENOKOT) TAB PO SCH (08:00)
[2020-09-18] MEDS: FAMOTIDINE 20MG/2ML IV (PEPCID) IV SCH (08:00)
[2020-09-18] MEDS: DOCUSATE SODIUM 10 MG/ML 10 ML UDC (COLACE) GT SCH (08:00)
[2020-09-18] MEDS: guaiFENesin SYRUP 100 MG/5 ML 10 ML (ROBITUSSIN SF) PO SCH (08:00)
[2020-09-18] MEDS: ASPIRIN 81 MG CHEW (CHILDREN'S ASA) PO SCH (08:00)
[2020-09-18] MEDS: TAMSULOSIN 0.4 MG (FLOMAX) CAP PO SCH (08:00)
[2020-09-18] MEDS: VITAMIN D3 25 MCG (1,000 UNITS) TABLET PO SCH (08:00)
[2020-09-18] MEDS ORDERED: NOREPINEPHRINE 4 MG/250 ML 0 ML IV ONE (08:09)
--- NOTE | 2020-09-18 08:42 | NUR ---
Dr. Hutton notified of pt's decrease in HR and BP at this time. Dr. Hutton spoke with family, Danielle(), via phone at this time regarding pt's poor prognosis. No new orders received.
--- NOTE | 2020-09-18 09:00 | NUR ---
Family able to facetime with pt at this time. This RN spoke with , Danielle, who wishes to come up and see pt at this time. Will make arrangements for to be at bedside during comfort care process.
--- NOTE | 2020-09-18 09:35 | Diagnostic Imaging Report ---
INDICATION: Hypoxia, Covid positive, ventilator support FINDINGS: Frontal view of the chest demonstrates an endotracheal tube and right arm PICC line remain in place. Previous sternotomy changes are present. Cardiomegaly is stable. Bilateral pulmonary infiltrates have slightly improved. IMPRESSION: Improvement of the diffuse bilateral pulmonary infiltrates. Dictated by: Dictated on workstation # [id number]
--- NOTE | 2020-09-18 10:23 | NUR ---
, Danielle, at bedside at this time. Dr. Hutton notified of family arrival at this time. Dr. Hutton to speak with family once she arrives at facility. Education provided to family at bedside during this time by this RN. Pt's children remain on facetime at bedside during education.
[2020-09-18] MEDS ORDERED: morphine INJ 10 MG/ML 1ML (SYR OR VIAL) ONE (12:32)
[2020-09-18] MEDS ORDERED: GLYCOPYRROLATE 0.2 MG/ML (ROBINUL) 2 ML VIAL IV PRN (12:45)
[2020-09-18] MEDS ORDERED: ONDANSETRON 4 MG/2 ML (SDV) Z0FRAN IVP PRN (12:45)
[2020-09-18] MEDS ORDERED: LORazepam INJ 2 MG/ML (ATIVAN) VIAL IVP PRN (12:45)
[2020-09-18] MEDS ORDERED: SALIVA STIMULANT MOUTH SPRAY (BIOTENE) 1.5 OZ MM PRN (12:45)
[2020-09-18] MEDS ORDERED: ARTIFICAL TEARS 0.4 ML UNIT DOSE (REFRESH PLUS) OU PRN (12:45)
[2020-09-18] MEDS ORDERED: ATROPINE 1% OPHTHALMIC SOLN 5 ML SL PRN (12:45)
[2020-09-18] MEDS ORDERED: morphine INJ 4 MG/ML 1 ML (VIAL/SYRINGE) IV PRN (12:45)
[2020-09-18] MEDS ORDERED: ACETAMINOPHEN 650 MG SUPP (TYLENOL) PR PRN (12:45)
[2020-09-18] MEDS ORDERED: RT-ALBUTEROL/IPRATROPIUM 3 ML (DUONEB) VIAL INH PRN (12:45)
--- NOTE | 2020-09-18 12:55 | NUR ---
Pt terminally extubated at this time. Beka RT at bedside during extubation.
[2020-09-18] MEDS ORDERED: SCOPOLAMINE 1.5 MG (TRANSDERM-SCOP) PATCH TOP SCH (13:00)
--- NOTE | 2020-09-18 13:15 | NUR ---
FERNANDO Dalton and this RN noted cessation of respirations and heart tones at this time. Time of pronounced at 1315. 1323 Dr. Hutton notified of pt's passing. Amilcar Huitron with pastoral care at bedside at this time. Family to call at a later time with home information.
--- NOTE | 2020-09-18 13:26 | Discharge Summary ---
Diagnosis/Chief Complaint Date of Admission Sep 05, 2020 at 21:50 Date of Discharge Discharge Diagnosis Respiratory failure COVID-19 PNA Discharge Summary Discharge Physical Examination Allergies: Coded Allergies: Fish Containing Products (Verified Allergy, Intermediate, 09/07/20) fish oil (Verified Allergy, Intermediate, 09/07/20) [id number] Reductase Inhibitor (Verified Allergy, Unknown, 10/15/17) codeine (Verified Allergy, Unknown, Takes Lortab at home, 05/28/18) Vitals & I&Os Vital Signs Date Time Temp Pulse Resp B/P (MAP) Pulse Ox O2 Delivery O2 Flow Rate FiO2 09/18/20 12:00 42 86/72 (77) 92 Mechanical Ventilator 80.00 09/18/20 08:00 70 09/18/20 07:50 35.7 09/18/20 07:17 39 Hospital Course Long course after admitted for dyspnea and fever and COVID-19 dx. Patient had long standing O2 dependent COPD and diastolic CHF at baseline. Patient was admitted to 4th floor then quickly moved up to ICU and ultimately failed biPAP and requiring intubation for 8 days until ARF occurred along with multi-system organ failure. Decision to order DNR was made the day before. Patient was terminally extubated after speaking to I had called to the bedside during obvious process and patient at 1315. Labs (last 24 hrs) Laboratory Tests 09/05/20 21:50: Lab Scanned Report Referred Lab Report 09/05/20 22:40: D-Dimer 1.09H, Procalcitonin 0.25H 09/06/20 05:35: White Blood Count 6.9, Red Blood Count 3.77L, Hemoglobin 11.0L, Hematocrit 34L, Mean Corpuscular Volume 89, Mean Corpuscular Hemoglobin 29, Mean Corpuscular Hemoglobin Concent 33, Red Cell Distribution Width 13.4, Platelet Count 273, Mean Platelet Volume 9.9, Immature Granulocyte % (Auto) 0, Neutrophils (%) (Aut o) 84H, Lymphocytes (%) (Auto) 8L, Monocytes (%) (Auto) 7, Eosinophils (%) (Auto) 0, Basophils (%) (Auto) 0, Neutrophils # (Auto) 5.8, Lymphocytes # (Auto) 0.6L, Monocytes # (Auto) 0.5, Eosinophils # (Auto) 0.0, Basophils # (Auto) 0.0, Immature Granulocyte # (Auto) 0.0, Sodium Level 131L, Potassium Level 4.1, Chloride Level 93L, Carbon Dioxide Level 24, Anion Gap 14, Blood Urea Nitrogen 36H, Creatinine 1.73H, Estimat Glomerular Filtration Rate 39, BUN/Creatinine Ratio 21, Glucose Level 377H, Calcium Level 9.2, Corrected Calcium 9.5, Phosphorus Level 3.5, Magnesium Level 2.3, Total Bilirubin 0.3, Aspartate Amino Transf (AST/SGOT) 27, Alanine Aminotransferase (ALT/SGPT) 20, Alkaline Phosphatase 112, B-Type Natriuretic Peptide 203.1H, Total Protein 7.8, Albumin 3.6 09/06/20 06:07: Glucometer 343H 09/06/20 10:36: Glucometer 359H 09/06/20 14:54: Blood Gas Puncture Site LR, Blood Gas Patient Temperature 36.4, Arterial Blood pH 7.45H, Arterial Blood Partial Pressure CO2 37, Arterial Blood Partial Pressure O2 58L, Arterial Blood HCO3 26, Arterial Blood Total CO2 26.8, Arterial Blood Oxygen Saturation 92L, Arterial Blood Base Excess 1.8, Michael Test YES-POS, Blood Gas Ventilator Setting NO, Blood Gas Inspired Oxygen 4.51L 09/06/20 15:53: Glucometer 372H 09/06/20 20:53: Glucometer 278H 09/07/20 05:56: Glucometer 271H 09/07/20 05:58: White Blood Count 13.4H, Red Blood Count 4.04L, Hemoglobin 11.8L, Hematocrit 36L , Mean Corpuscular Volume 90, Mean Corpuscular Hemoglobin 29, Mean Corpuscular Hemoglobin Concent 32, Red Cell Distribution Width 13.4, Platelet Count 292, Mean Platelet Volume 9.9, Immature Granulocyte % (Auto) 0, Neutrophils (%) (Auto) 87H, Lymphocytes (%) (Auto) 5L, Monocytes (%) (Auto) 7, Eosinophils (%) (Auto) 0, Basophils (%) (Auto) 0, Neutrophils # (Auto) 11.7H, Lymphocytes # (Auto) 0.7L, Monocytes # (Auto) 0.9, Eosinophils # (Auto) 0.0, Basophils # (Auto) 0.0, Immature Granulocyte # (Auto) 0.1, Neutrophils % (Manual) 74, Lymphocytes % (Manual) 9, Monocytes % (Manual) 4, Band Neutrophils 13, Blood Morphology Comment NORMAL, Sodium Level 132L, Potassium Level 3.6, Chloride Level 92L, Carbon Dioxide Level 25, Anion Gap 15H, Blood Urea Nitrogen 38H, Creatinine 1.45H, Estimat Glomerular Filtration Rate 48, BUN/Creatinine Ratio 26, Glucose Level 270H, Calcium Level 9.2, Corrected Calcium 9.4, Phosphorus Level 3.7, Magnesium Level 2.2, Total Bilirubin 0.2, Aspartate Amino Transf (AST/SGOT) 31, Alanine Aminotransferase (ALT/SGPT) 19, Alkaline Phosphatase 110, Total Protein 8.1, Albumin 3.8 09/07/20 08:45: Blood Gas Puncture Site L RAD, Blood Gas Patient Temperature 36.2, Arterial Blood pH 7.50H, Arterial Blood Partial Pressure CO2 34L, Arterial Blood Partial Pressure O2 59L, Arterial Blood HCO3 27, Arterial Blood Total CO2 27.7, Arterial Blood Oxygen Saturation 91L, Arterial Blood Base Excess 3.3H, Michael Test YES- POS, Blood Gas Ventilator Setting NO, Blood Gas Inspired Oxygen 45.00% 09/07/20 11:14: Glucometer 170H 09/07/20 16:08: Glucometer 77 09/07/20 18:28: Glucometer 57*L 09/07/20 19:43: Glucometer 129H 09/07/20 21:50: Blood Gas Puncture Site RIGHT RADIAL, Blood Gas Patient Temperature 37.2, Arterial Blood pH 7.49H, Arterial Blood Partial Pressure CO2 38, Arterial Blood Partial Pressure O2 66L, Arterial Blood HCO3 28H, Arterial Blood Total CO2 29.5, Arterial Blood Oxygen Saturation 92L, Arterial Blood Base Excess 5.0H, Michael Test YES-POS, Blood Gas Ventilator Setting NO, Blood Gas Inspired Oxygen 50% 09/07/20 23:40: Glucometer 170H 09/08/20 02:53: White Blood Count 12.9H, Red Blood Count 4.11L, Hemoglobin 12.1L, Hematocrit 37L , Mean Corpuscular Volume 90, Mean Corpuscular Hemoglobin 29, Mean Corpuscular Hemoglobin Concent 33, Red Cell Distribution Width 13.4, Platelet Count 294, Mean Platelet Volume 9.6, Immature Granulocyte % (Auto) 1, Neutrophils (%) (Auto) 88H, Lymphocytes (%) (Auto) 6L, Monocytes (%) (Auto) 5, Eosinophils (%) (Auto) 0, Basophils (%) (Auto) 0, Neutrophils # (Auto) 11.4H, Lymphocytes # (Auto) 0.8L, Monocytes # (Auto) 0.7, Eosinophils # (Auto) 0.0, Basophils # (Auto) 0.0, Immature Granulocyte # (Auto) 0.1, D-Dimer 1.09H, Sodium Level 133L, Potassium Level 4.5, Chloride Level 94L, Carbon Dioxide Level 24, Anion Gap 15H, Blood Urea Nitrogen 38H, Creatinine 1.42H, Estimat Glomerular Filtration Rate 49, BUN/Creatinine Ratio 27, Glucose Level 217H, Calcium Level 9.1, Phosphorus Level 3.4, Magnesium Level 2.1, Procalcitonin 0.23H 09/08/20 03:35: Blood Gas Puncture Site RIGHT RADIAL, Blood Gas Patient Temperature 36.9, Arterial Blood pH 7.49H, Arterial Blood Partial Pressure CO2 36, Arterial Blood Partial Pressure O2 65L, Arterial Blood HCO3 27, Arterial Blood Total CO2 28.4, Arterial Blood Oxygen Saturation 91L, Arterial Blood Base Excess 3.9H, Michael Test YES-POS, Blood Gas Ventilator Setting NO, Blood Gas Inspired Oxygen 50% 09/08/20 11:36: Glucometer 275H 09/08/20 14:21: Lab Scanned Report Transfusion Reaction Form 09/08/20 17:06: Glucometer 320H 09/08/20 19:57: Glucometer 331H 09/09/20 03:33: White Blood Count 13.4H, Red Blood Count 4.62, Hemoglobin 13.5, Hematocrit 42, Mean Corpuscular Volume 91, Mean Corpuscular Hemoglobin 29, Mean Corpuscular Hemoglobin Concent 32, Red Cell Distribution Width 13.3, Platelet Count 328, Mean Platelet Volume 10.0, Immature Granulocyte % (Auto) 1, Neutrophils (%) (Auto) 87H, Lymphocytes (%) (Auto) 6L, Monocytes (%) (Auto) 6, Eosinophils (%) (Auto) 0, Basophils (%) (Auto) 0, Neutrophils # (Auto) 11.7H, Lymphocytes # (Auto) 0.8L, Monocytes # (Auto) 0.8, Eosinophils # (Auto) 0.0, Basophils # (Auto) 0.0, Immature Granulocyte # (Auto) 0.1, Sodium Level 137, Potassium Level 4.7, Chloride Level 96L, Carbon Dioxide Level 25, Anion Gap 16H, Blood Urea Nitrogen 47H, Creatinine 1.65H, Estimat Glomerular Filtration Rate 41, BUN/Creatinine Ratio 28, Glucose Level 242H, Calcium Level 10.0, Phosphorus Level 2.8, Magnesium Level 2.6H 09/09/20 03:37: Blood Gas Puncture Site RT RAD, Blood Gas Patient Temperature 36.6, Arterial Blood pH 7.47H, Arterial Blood Partial Pressure CO2 39, Arterial Blood Partial Pressure O2 83, Arterial Blood HCO3 28H, Arterial Blood Total CO2 29.2, Arterial Blood Oxygen Saturation 96, Arterial Blood Base Excess 4.3H, Michael Test YES-POS, Blood Gas Ventilator Setting NO, Blood Gas Inspired Oxygen 100% BIPAP 09/09/20 06:25: Urine Color YELLOW, Urine Clarity CLEAR, Urine pH 6.5, Urine Specific [place] 1.015L, Urine Protein 2+H, Urine Glucose (UA) NEGATIVE, Urine Ketones NEGATIVE, Urine Nitrite NEGATIVE, Urine Bilirubin NEGATIVE, Urine Urobilinogen 0.2, Urine Leukocyte Esterase NEGATIVE, Urine RBC (Auto) TRACE-I, Urine RBC 2-5H, Urine WBC 2-5, Urine Squamous Epithelial Cells 0-2, Urine Crystals NONE, Urine Bacteria NEGATIVE, Urine Casts PRESENT, Urine Hyaline Casts 25-50H, Urine Mucus NEGATIVE, Urine Culture Indicated NO 09/09/20 09:09: Triglycerides Level 183H 09/09/20 10:08: Blood Gas Puncture Site RT RAD, Blood Gas Patient Temperature 96.2, Arterial Blood pH 7.37, Arterial Blood Partial Pressure CO2 49H, Arterial Blood Partial Pressure O2 89, Arterial Blood HCO3 28H, Arterial Blood Total CO2 29.7, Arterial Blood Oxygen Saturation 97, Arterial Blood Base Excess 3.0H, Michael Test YES-POS, Blood Gas Ventilator Setting YES, Blood Gas Inspired Oxygen 100% 09/09/20 12:16: Glucometer 321H 09/09/20 17:28: Glucometer 340H 09/09/20 20:10: Glucometer 349H 09/09/20 23:33: Glucometer 308H 09/10/20 02:30: White Blood Count 11.2H, Red Blood Count 4.58, Hemoglobin 13.2L, Hematocrit 42, Mean Corpuscular Volume 91, Mean Corpuscular Hemoglobin 29, Mean Corpuscular Hemoglobin Concent 32, Red Cell Distribution Width 13.1, Platelet Count 321, Mean Platelet Volume 10.1, Immature Granulocyte % (Auto) 1, Neutrophils (%) (Auto) 86H, Lymphocytes (%) (Auto) 6L, Monocytes (%) (Auto) 7, Eosinophils (%) (Auto) 0, Basophils (%) (Auto) 0, Neutrophils # (Auto) 9.7H, Lymphocytes # (Auto) 0.7L, Monocytes # (Auto) 0.8, Eosinophils # (Auto) 0.0, Basophils # (Auto) 0.0, Immature Granulocyte # (Auto) 0.1, Blood Gas Puncture Site LEFT RADIAL, Blood Gas Patient Temperature 36.4, Arterial Blood pH 7.31*L, Arterial Blood Partial Pressure CO2 60H, Arterial Blood Partial Pressure O2 54L, Arterial Blood HCO3 30H, Arterial Blood Total CO2 31.5H, Arterial Blood Oxygen Saturation 78L, Arterial Blood Base Excess 3.7H, Michael Test POSITIVE, Blood Gas Ventilator Setting YES, Blood Gas Inspired Oxygen 100, Sodium Level 137, Potassium Level 4.4, Chloride Level 95L, Carbon Dioxide Level 23, Anion Gap 19H, Blood Urea Nitrogen 74H, Creatinine 1.82H, Estimat Glomerular Filtration Rate 37, BUN/Creatinine Ratio 41, Glucose Level 331H, Calcium Level 9.5, Phosphorus Level 5.6H, Magnesium Level 2.6H 09/10/20 07:30: Blood Gas Puncture Site LR, Blood Gas Patient Temperature 36.2, Arterial Blood pH 7.32*L, Arterial Blood Partial Pressure CO2 56H, Arterial Blood Partial Pressure O2 220H, Arterial Blood HCO3 28H, Arterial Blood Total CO2 30.0, A rterial Blood Oxygen Saturation 100, Arterial Blood Base Excess 2.4, Michael Test YES-POS, Blood Gas Ventilator Setting YES, Blood Gas Inspired Oxygen 100% 09/10/20 08:21: Glucometer 290H 09/10/20 11:04: Glucometer 287H 09/10/20 15:25: Glucometer 258H 09/10/20 19:22: Glucometer 242H 09/10/20 23:08: Glucometer 197H 09/11/20 01:20: White Blood Count 12.5H, Red Blood Count 4.27L, Hemoglobin 12.8L, Hematocrit 39L , Mean Corpuscular Volume 91, Mean Corpuscular Hemoglobin 30, Mean Corpuscular Hemoglobin Concent 33, Red Cell Distribution Width 13.0, Platelet Count 339, Mean Platelet Volume 10.4, Immature Granulocyte % (Auto) 1, Neutrophils (%) (Auto) 84H, Lymphocytes (%) (Auto) 8L, Monocytes (%) (Auto) 7, Eosinophils (%) (Auto) 0, Basophils (%) (Auto) 0, Neutrophils # (Auto) 10.5H, Lymphocytes # (Auto) 1.0, Monocytes # (Auto) 0.8, Eosinophils # (Auto) 0.0, Basophils # (Auto) 0.0, Immature Granulocyte # (Auto) 0.2H, Sodium Level 135, Potassium Level 4.0, Chloride Level 97L, Carbon Dioxide Level 23, Anion Gap 15H, Blood Urea Nitrogen 82H, Creatinine 1.49H, Estimat Glomerular Filtration Rate 47, BUN/Creatinine Ratio 55, Glucose Level 164H, Calcium Level 8.2L, Phosphorus Level 3.9, Magnesium Level 2.7H, Triglycerides Level 1592H 09/11/20 01:53: Blood Gas Puncture Site LEFT RADIAL, Blood Gas Patient Temperature 36, Arterial Blood pH 7.34*L, Arterial Blood Partial Pressure CO2 55H, Arterial Blood Partial Pressure O2 87, Arterial Blood HCO3 30H, Arterial Blood Total CO2 31.3H, Arterial Blood Oxygen Saturation 97, Arterial Blood Base Excess 4.0H, Michael Test POSITIVE, Blood Gas Ventilator Setting YES, Blood Gas Inspired Oxygen 60 09/11/20 03:42: Glucometer 134H 09/11/20 08:56: Glucometer 183H 09/11/20 11:50: Glucometer 218H 09/11/20 16:30: Glucometer 217H 09/11/20 19:59: Glucometer 208H 09/11/20 23:30: Glucometer 197H 09/12/20 03:15: White Blood Count 12.8H, Red Blood Count 4.36, Hemoglobin 12.6L, Hematocrit 40, Mean Corpuscular Volume 92, Mean Corpuscular Hemoglobin 29, Mean Corpuscular Hemoglobin Concent 31L, Red Cell Distribution Width 13.2, Platelet Count 330, Mean Platelet Volume 10.4, Immature Granulocyte % (Auto) 2, Neutrophils (%) (Auto) 79H, Lymphocytes (%) (Auto) 10L, Monocytes (%) (Auto) 9, Eosinophils (%) (Auto) 0, Basophils (%) (Auto) 0, Neutrophils # (Auto) 10.1H, Lymphocytes # (Auto) 1.3, Monocytes # (Auto) 1.2H, Eosinophils # (Auto) 0.0, Basophils # (Auto) 0.0, Immature Granulocyte # (Auto) 0.2H, Blood Gas Puncture Site RIGHT RADIAL, Blood Gas Patient Temperature 36.3, Arterial Blood pH 7.37, Arterial Blood Partial Pressure CO2 53H, Arterial Blood Partial Pressure O2 110H, Arterial Blood HCO3 30H, Arterial Blood Total CO2 31.9H, Arterial Blood Oxygen Saturation 99, Arterial Blood Base Excess 5.2H, Michael Test POSITIVE, Blood Gas Ventilator Setting YES, Blood Gas Inspired Oxygen 50, Sodium Level 145, Potassium Level 4.2, Chloride Level 105, Carbon Dioxide Level 27, Anion Gap 13, Blood Urea Nitrogen 92H, Creatinine 1.51H, Estimat Glomerular Filtration Rate 46, BUN/Creatinine Ratio 61, Glucose Level 192H, Calcium Level 8.8, Phosphorus Level 2.9, Magnesium Level 3.3H 09/12/20 07:50: Glucometer 166H 09/12/20 11:14: Glucometer 227H 09/12/20 15:59: Glucometer 269H 09/12/20 19:30: Glucometer 264H 09/12/20 23:16: Glucometer 270H 09/13/20 02:10: White Blood Count 12.5H, Red Blood Count 4.18L, Hemoglobin 12.1L, Hematocrit 40, Mean Corpuscular Volume 96, Mean Corpuscular Hemoglobin 29, Mean Corpuscular Hemoglobin Concent 30L, Red Cell Distribution Width 13.3, Platelet Count 317, Mean Platelet Volume 10.5, Immature Granulocyte % (Auto) 3, Neutrophils (%) (Auto) 76H, Lymphocytes (%) (Auto) 10L, Monocytes (%) (Auto) 12, Eosinophils (%) (Auto) 0, Basophils (%) (Auto) 0, Neutrophils # (Auto) 9.5H, Lymphocytes # (Auto) 1.2, Monocytes # (Auto) 1.5H, Eosinophils # (Auto) 0.0, Basophils # (Auto) 0.1, Immature Granulocyte # (Auto) 0.3H, Sodium Level 150H, Potassium Level 4.2, Chloride Level 110H, Carbon Dioxide Level 28, Anion Gap 12, Blood U lang Nitrogen 85H, Creatinine 1.37H, Estimat Glomerular Filtration Rate 51, BUN/Creatinine Ratio 62, Glucose Level 262H, Calcium Level 8.8, Phosphorus Level 2.3, Magnesium Level 3.7H, Triglycerides Level 264H 09/13/20 05:00: Blood Gas Puncture Site RIGHT RADIAL, Blood Gas Patient Temperature 37, Arterial Blood pH 7.39, Arterial Blood Partial Pressure CO2 51H, Arterial Blood Partial Pressure O2 82, Arterial Blood HCO3 31H, Arterial Blood Total CO2 32.4H, Arterial Blood Oxygen Saturation 97, Arterial Blood Base Excess 5.8H, Michael Test POSITIVE, Blood Gas Ventilator Setting YES, Blood Gas Inspired Oxygen 45 09/13/20 08:59: Glucometer 173H 09/13/20 11:53: Glucometer 251H 09/13/20 15:34: Glucometer 266H 09/13/20 19:31: Glucometer 253H 09/13/20 23:24: Glucometer 234H 09/14/20 03:00: White Blood Count 13.2H, Red Blood Count 4.14L, Hemoglobin 12.2L, Hematocrit 40, Mean Corpuscular Volume 96, Mean Corpuscular Hemoglobin 30, Mean Corpuscular Hemoglobin Concent 31L, Red Cell Distribution Width 13.5, Platelet Count 310, Mean Platelet Volume 10.5, Immature Granulocyte % (Auto) 3, Neutrophils (%) (Auto) 77H, Lymphocytes (%) (Auto) 9L, Monocytes (%) (Auto) 11, Eosinophils (%) (Auto) 0, Basophils (%) (Auto) 0, Neutrophils # (Auto) 10.2H, Lymphocytes # (Auto) 1.2, Monocytes # (Auto) 1.5H, Eosinophils # (Auto) 0.0, Basophils # (Auto) 0.0, Immature Granulocyte # (Auto) 0.3H, Blood Gas Puncture Site RIGHT RADIAL, Blood Gas Patient Temperature 36.3, Arterial Blood pH 7.39, Arterial Blood Partial Pressure CO2 51H, Arterial Blood Partial Pressure O2 81, Arterial Blood HCO3 31H, Arterial Blood Total CO2 32.5H, Arterial Blood Oxygen Saturation 96, Arterial Blood Base Excess 5.9H, Michael Test POSITIVE, Blood Gas Ventilator Setting YES, Blood Gas Inspired Oxygen 45, Sodium Level 151H, Potassium Level 4.3, Chloride Level 113H, Carbon Dioxide Level 28, Anion Gap 10, Blood Urea Nitrogen 81H, Creatinine 1.27, Estimat Glomerular Filtration Rate 56, BUN/Creatinine Ratio 64, Glucose Level 255H, Calcium Level 8.7, Phosphorus Level 2.0L, Magnesium Level 3.9H, Procalcitonin 0.09 09/14/20 04:25: Urine Color YELLOW, Urine Clarity CLEAR, Urine pH 6.0, Urine Specific [place] 1.010L, Urine Protein NEGATIVE, Urine Glucose (UA) NEGATIVE, Urine Ketones NEGATIVE, Urine Nitrite NEGATIVE, Urine Bilirubin NEGATIVE, Urine Urobilinogen 0.2, Urine Leukocyte Esterase NEGATIVE, Urine RBC (Auto) 3+H, Urine RBC 25-50H, Urine WBC 0-2, Urine Squamous Epithelial Cells 0-2, Urine Crystals PRESENTH, Urine Bacteria TRACE, Urine Casts PRESENT, Urine Hyaline Casts 0-2H, Urine Mucus SMALLH, Urine Culture Indicated NO 09/14/20 07:50: Glucometer 217H 09/14/20 11:21: Glucometer 256H 09/14/20 15:28: Glucometer 273H 09/14/20 19:31: Glucometer 282H 09/14/20 23:19: Glucometer 279H 09/15/20 02:00: B-Type Natriuretic Peptide 216.9H 09/15/20 03:00: White Blood Count 13.6H, Red Blood Count 4.27L, Hemoglobin 12.5L, Hematocrit 41, Mean Corpuscular Volume 97, Mean Corpuscular Hemoglobin 29, Mean Corpuscular Hemoglobin Concent 30L, Red Cell Distribution Width 13.8, Platelet Count 301, Mean Platelet Volume 10.7, Immature Granulocyte % (Auto) 2, Neutrophils (%) (Auto) 81H, Lymphocytes (%) (Auto) 7L, Monocytes (%) (Auto) 10, Eosinophils (%) (Auto) 0, Basophils (%) (Auto) 0, Neutrophils # (Auto) 11.0H, Lymphocytes # (Auto) 1.0, Monocytes # (Auto) 1.4H, Eosinophils # (Auto) 0.0, Basophils # (Auto) 0.0, Immature Granulocyte # (Auto) 0.3H, Blood Gas Puncture Site RIGHT RADIAL, Blood Gas Patient Temperature 35.9, Arterial Blood pH 7.41, Arterial Blood Partial Pressure CO2 48H, Arterial Blood Partial Pressure O2 67L, Arterial Blood HCO3 30H, Arterial Blood Total CO2 31.6H, Arterial Blood Oxygen Saturation 94, Arterial Blood Base Excess 5.3H, Michael Test POSITIVE, Blood Gas Ventilator Setting YES, Blood Gas Inspired Oxygen 45, Sodium Level 153H, Potassium Level 4.4, Chloride Level 116H, Carbon Dioxide Level 28, Anion Gap 9, Blood Urea Nitrogen 70H, Creatinine 1.09, Estimat Glomerular Filtration Rate > 60, BUN/Creatinine Ratio 64, Glucose Level 296H, Calcium Level 8.6, Phosphorus Level 2.3, Magnesium Level 3.8H, Triglycerides Level 226H 09/15/20 07:51: Glucometer 253H 09/15/20 10:54: Glucometer 226H 09/15/20 17:34: Glucometer 196H 09/15/20 19:51: Glucometer 205H 09/16/20 03:10: Blood Gas Puncture Site RIGHT RADIAL, Blood Gas Patient Temperature 37.8, Arterial Blood pH 7.36L, Arterial Blood Partial Pressure CO2 58H, Arterial Blood Partial Pressure O2 73L, Arterial Blood HCO3 32H, Arterial Blood Total CO2 33.5H , Arterial Blood Oxygen Saturation 92L, Arterial Blood Base Excess 6.7H, Michael Test POSITIVE, Blood Gas Ventilator Setting YES, Blood Gas Inspired Oxygen 100% 09/16/20 03:15: White Blood Count 14.5H, Red Blood Count 4.21L, Hemoglobin 12.2L, Hematocrit 41, Mean Corpuscular Volume 98, Mean Corpuscular Hemoglobin 29, Mean Corpuscular Hemoglobin Concent 30L, Red Cell Distribution Width 14.1, Platelet Count 298, Mean Platelet Volume 10.4, Immature Granulocyte % (Auto) 2, Neutrophils (%) (Auto) 84H, Lymphocytes (%) (Auto) 7L, Monocytes (%) (Auto) 6, Eosinophils (%) (Auto) 1, Basophils (%) (Auto) 0, Neutrophils # (Auto) 12.2H, Lymphocytes # (Auto) 1.0, Monocytes # (Auto) 0.9, Eosinophils # (Auto) 0.2, Basophils # (Auto) 0.1, Immature Granulocyte # (Auto) 0.2H, Neutrophils % (Manual) 87, Lymphocytes % (Manual) 7, Monocytes % (Manual) 3, Eosinophils % (Manual) 1, Reactive Lymphocytes 2, Blood Morphology Comment NORMAL, Sodium Level 156H, Potassium Level 3.7, Chloride Level 120H, Carbon Dioxide Level 26, Anion Gap 10, Blood Urea Nitrogen 52H, Creatinine 0.82, Estimat Glomerular Filtration Rate > 60, BUN/Creatinine Ratio 63, Glucose Level 158H, Calcium Level 7.6L, Phosphorus Level 2.0L, Magnesium Level 2.9H 09/16/20 07:52: Glucometer 131H 09/16/20 11:01: Glucometer 156H 09/16/20 15:36: Glucometer 180H 09/16/20 19:34: Glucometer 174H 09/16/20 22:32: Glucometer 219H 09/17/20 01:50: White Blood Count 16.0H, Red Blood Count 3.85L, Hemoglobin 11.1L, Hematocrit 39L , Mean Corpuscular Volume 100H, Mean Corpuscular Hemoglobin 29, Mean Corpuscular Hemoglobin Concent 29L, Red Cell Distribution Width 14.1, Platelet Count 235, Mean Platelet Volume 11.3, Immature Granulocyte % (Auto) 1, Neutrophils (%) (Auto) 81H, Lymphocytes (%) (Auto) 11L, Monocytes (%) (Auto) 5, Eosinophils (%) (Auto) 2, Basophils (%) (Auto) 0, Neutrophils # (Auto) 13.0H, Lymphocytes # (Auto) 1.7, Monocytes # (Auto) 0.8, Eosinophils # (Auto) 0.3, Basophils # (Auto) 0.0, Immature Granulocyte # (Auto) 0.2H, Blood Gas Puncture Site LEFT RADIAL, Blood Gas Patient Temperature 37.3, Arterial Blood pH 7.33*L, Arterial Blood Partial Pressure CO2 56H, Arterial Blood Partial Pressure O2 80, Arterial Blood HCO3 29H, Arterial Blood Total CO2 30.2, Arterial Blood Oxygen Saturation 94, Arterial Blood Base Excess 3.2H, Michael Test YES-POS, Blood Gas Ventilator Setting YES, Blood Gas Inspired Oxygen 80%, Sodium Level 149H, Potassium Level 4.4, Chloride Level 115H, Carbon Dioxide Level 26, Anion Gap 8, Blood Urea Nitrogen 65H, Creatinine 1.27, Estimat Glomerular Filtration Rate 56, BUN/Creati nine Ratio 51, Glucose Level 270H, Calcium Level 7.4L, Phosphorus Level 2.7, Magnesium Level 3.2H, Triglycerides Level 99 09/17/20 07:42: Glucometer 190H 09/17/20 12:48: Glucometer 170H 09/17/20 15:28: Glucometer 191H 09/17/20 17:09: Vancomycin Level Trough 28.8*H 09/17/20 20:38: Glucometer 220H 09/17/20 23:06: Glucometer 229H 09/18/20 04:05: White Blood Count 14.8H, Red Blood Count 3.32L, Hemoglobin 9.6L, Hematocrit 34L, Mean Corpuscular Volume 102H, Mean Corpuscular Hemoglobin 29, Mean Corpuscular Hemoglobin Concent 28L, Red Cell Distribution Width 14.5, Platelet Count 179, Mean Platelet Volume 11.6, Immature Granulocyte % (Auto) 1, Neutrophils (%) (Auto) 88H, Lymphocytes (%) (Auto) 5L, Monocytes (%) (Auto) 4, Eosinophils (%) (Auto) 2, Basophils (%) (Auto) 0, Neutrophils # (Auto) 13.0H, Lymphocytes # (Auto) 0.7L, Monocytes # (Auto) 0.6, Eosinophils # (Auto) 0.4H, Basophils # (Auto) 0.0, Immature Granulocyte # (Auto) 0.1, Sodium Level 151H, Potassium L evel 5.4H, Chloride Level 115H, Carbon Dioxide Level 26, Anion Gap 10, Blood Urea Nitrogen 91H, Creatinine 2.32H, Estimat Glomerular Filtration Rate 28, BUN/Creatinine Ratio 39, Glucose Level 239H, Calcium Level 8.0L, Phosphorus Level 5.5H, Magnesium Level 3.6H 09/18/20 07:13: Blood Gas Puncture Site RT RAD, Blood Gas Patient Temperature 95, Arterial Blood pH 7.30*L, Arterial Blood Partial Pressure CO2 50H, Arterial Blood Partial Pressure O2 58L, Arterial Blood HCO3 24, Arterial Blood Total CO2 26.0, Arterial Blood Oxygen Saturation 92L, Arterial Blood Base Excess -1.6, Michael Test YES- POS, Blood Gas Ventilator Setting YES, Blood Gas Inspired Oxygen 75% 09/18/20 07:50: Glucometer 208H 09/18/20 08:06: Vancomycin Level Trough 20.5H Microbiology 09/14/20 Blood Culture - Preliminary, Resulted No growth 09/09/20 Gram Stain - Final, Complete 09/09/20 Sputum Culture - Final, Complete Usual upper respiratory swetha Pending Labs Microbiology Date/Time Source Procedure Growth Status 09/14/20 04:30 Peripheral Left Wrist Blood Culture - Preliminary No growth Resulted 09/14/20 04:29 Port Picc Blood Culture - Preliminary Staph, Coag Neg ([employer]) See Comments Resulted 09/14/20 04:25 Peripheral Lt Hand Blood Culture - Preliminary No growth Resulted 09/09/20 08:35 Sputum Endotracheal Gram Stain - Final Complete 09/09/20 08:35 Sputum Culture - Final Usual upper respiratory swetha Complete 09/07/20 21:50 Nasal MRSA Screen - Final MRSA not isolated Complete 09/05/20 22:45 Peripheral Rt Hand Blood Culture - Final No growth Complete 09/05/20 22:40 Peripheral Rt Ac Blood Culture - Final No growth Complete Laboratory Tests 09/05/20 21:50: Lab Scanned Report Referred Lab Report 09/05/20 22:40: D-Dimer 1.09, Procalcitonin 0.25 09/06/20 05:35: White Blood Count 6.9, Red Blood Count 3.77, Hemoglobin 11.0, Hematocrit 34, Mean Corpuscular Volume 89, Mean Corpuscular Hemoglobin 29, Mean Corpuscular Hemoglobin Concent 33, Red Cell Distribution Width 13.4, Platelet Count 273, Mean Platelet Volume 9.9, Immature Granulocyte % (Auto) 0, Neutrophils (%) (Auto) 84, Lymphocytes (%) (Auto) 8, Monocytes (%) (Auto) 7, Eosinophils (%) (Auto) 0, Basophils (%) (Auto) 0, Neutrophils # (Auto) 5.8, Lymphocytes # (Auto) 0.6, Monocytes # (Auto) 0.5, Eosinophils # (Auto) 0.0, Basophils # (Auto) 0.0, Immature Granulocyte # (Auto) 0.0, Sodium Level 131, Potassium Level 4.1, Chloride Level 93, Carbon Dioxide Level 24, Anion Gap 14, Blood Urea Nitrogen 36, Creatinine 1.73, Estimat Glomerular Filtration Rate 39, BUN/Creatinine Ratio 21, Glucose Level 377, Calcium Level 9.2, Corrected Calcium 9.5, Phosphorus Level 3.5, Magnesium Level 2.3, Total Bilirubin 0.3, Aspartate Amino Transf (AST/SGOT) 27, Alanine Aminotransferase (ALT/SGPT) 20, Alkaline Phosphatase 112, B-Type Natriuretic Peptide 203.1, Total Protein 7.8, Albumin 3.6 09/06/20 06:07: Glucometer 343 09/06/20 10:36: Glucometer 359 09/06/20 14:54: Blood Gas Puncture Site LR, Blood Gas Patient Temperature 36.4, Arterial Blood pH 7.45, Arterial Blood Partial Pressure CO2 37, Arterial Blood Partial Pressure O2 58, Arterial Blood HCO3 26, Arterial Blood Total CO2 26.8, Arterial Blood Oxygen Saturation 92, Arterial Blood Base Excess 1.8, Michael Test YES-POS, Blood Gas Ventilator Setting NO, Blood Gas Inspired Oxygen 4.51L 09/06/20 15:53: Glucometer 372 09/06/20 20:53: Glucometer 278 09/07/20 05:56: Glucometer 271 09/07/20 05:58: White Blood Count 13.4, Red Blood Count 4.04, Hemoglobin 11.8, Hematocrit 36, Mean Corpuscular Volume 90, Mean Corpuscular Hemoglobin 29, Mean Corpuscular Hemoglobin Concent 32, Red Cell Distribution Width 13.4, Platelet Count 292, Mean Platelet Volume 9.9, Immature Granulocyte % (Auto) 0, Neutrophils (%) (Auto) 87, Lymphocytes (%) (Auto) 5, Monocytes (%) (Auto) 7, Eosinophils (%) (Auto) 0, Basophils (%) (Auto) 0, Neutrophils # (Auto) 11.7, Lymphocytes # (Auto) 0.7, Monocytes # (Auto) 0.9, Eosinophils # (Auto) 0.0, Basophils # (Auto) 0.0, Immature Granulocyte # (Auto) 0.1, Neutrophils % (Manual) 74, Lymphocytes % (Manual) 9, Monocytes % (Manual) 4, Band Neutrophils 13, Blood Morphology Comment NORMAL, Sodium Level 132, Potassium Level 3.6, Chloride Level 92, Carbon Dioxide Level 25, Anion Gap 15, Blood Urea Nitrogen 38, Creatinine 1.45, Estimat Glomerular Filtration Rate 48, BUN/Creatinine Ratio 26, Glucose Level 270, Calcium Level 9.2, Corrected Calcium 9.4, Phosphorus Level 3.7, Magnesium Level 2.2, Total Bilirubin 0.2, Aspartate Amino Transf (AST/SGOT) 31, Alanine Aminotransferase (ALT/SGPT) 19, Alkaline Phosphatase 110, Total Protein 8.1, Albumin 3.8 09/07/20 08:45: Blood Gas Puncture Site L RAD, Blood Gas Patient Temperature 36.2, Arterial Blood pH 7.50, Arterial Blood Partial Pressure CO2 34, Arterial Blood Partial Pressure O2 59, Arterial Blood HCO3 27, Arterial Blood Total CO2 27.7, Arterial Blood Oxygen Saturation 91, Arterial Blood Base Excess 3.3, Michael Test YES-POS, Blood Gas Ventilator Setting NO, Blood Gas Inspired Oxygen 45.00% 09/07/20 11:14: Glucometer 170 09/07/20 16:08: Glucometer 77 09/07/20 18:28: Glucometer 57 09/07/20 19:43: Glucometer 129 09/07/20 21:50: Blood Gas Puncture Site RIGHT RADIAL, Blood Gas Patient Temperature 37.2, Arterial Blood pH 7.49, Arterial Blood Partial Pressure CO2 38, Arterial Blood Partial Pressure O2 66, Arterial Blood HCO3 28, Arterial Blood Total CO2 29.5, Arterial Blood Oxygen Saturation 92, Arterial Blood Base Excess 5.0, Michael Test YES-POS, Blood Gas Ventilator Setting NO, Blood Gas Inspired Oxygen 50% 09/07/20 23:40: Glucometer 170 09/08/20 02:53: White Blood Count 12.9, Red Blood Count 4.11, Hemoglobin 12.1, Hematocrit 37, Mean Corpuscular Volume 90, Mean Corpuscular Hemoglobin 29, Mean Corpuscular Hemoglobin Concent 33, Red Cell Distribution Width 13.4, Platelet Count 294, Mean Platelet Volume 9.6, Immature Granulocyte % (Auto) 1, Neutrophils (%) (Auto) 88, Lymphocytes (%) (Auto) 6, Monocytes (%) (Auto) 5, Eosinophils (%) (Auto) 0, Basophils (%) (Auto) 0, Neutrophils # (Auto) 11.4, Lymphocytes # (Auto) 0.8, Monocytes # (Auto) 0.7, Eosinophils # (Auto) 0.0, Basophils # (Auto) 0.0, Immature Granulocyte # (Auto) 0.1, D-Dimer 1.09, Sodium Level 133, Potassium Level 4.5, Chloride Level 94, Carbon Dioxide Level 24, Anion Gap 15, Blood Urea Nitrogen 38, Creatinine 1.42, Estimat Glomerular Filtration Rate 49, BUN/Creatinine Ratio 27, Glucose Level 217, Calcium Level 9.1, Phosphorus Level 3.4, Magnesium Level 2.1, Procalcitonin 0.23 09/08/20 03:35: Blood Gas Puncture Site RIGHT RADIAL, Blood Gas Patient Temperature 36.9, Arterial Blood pH 7.49, Arterial Blood Partial Pressure CO2 36, Arterial Blood Partial Pressure O2 65, Arterial Blood HCO3 27, Arterial Blood Total CO2 28.4, Arterial Blood Oxygen Saturation 91, Arterial Blood Base Excess 3.9, Michael Test YES-POS, Blood Gas Ventilator Setting NO, Blood Gas Inspired Oxygen 50% 09/08/20 11:36: Glucometer 275 09/08/20 14:21: Lab Scanned Report Transfusion Reaction Form 09/08/20 17:06: Glucometer 320 09/08/20 19:57: Glucometer 331 09/09/20 03:33: White Blood Count 13.4, Red Blood Count 4.62, Hemoglobin 13.5, Hematocrit 42, Mean Corpuscular Volume 91, Mean Corpuscular Hemoglobin 29, Mean Corpuscular Hemoglobin Concent 32, Red Cell Distribution Width 13.3, Platelet Count 328, Mean Platelet Volume 10.0, Immature Granulocyte % (Auto) 1, Neutrophils (%) (Auto) 87, Lymphocytes (%) (Auto) 6, Monocytes (%) (Auto) 6, Eosinophils (%) (Auto) 0, Basophils (%) (Auto) 0, Neutrophils # (Auto) 11.7, Lymphocytes # (Auto) 0.8, Monocytes # (Auto) 0.8, Eosinophils # (Auto) 0.0, Basophils # (Auto) 0.0, Immature Granulocyte # (Auto) 0.1, Sodium Level 137, Potassium Level 4.7, Chloride Level 96, Carbon Dioxide Level 25, Anion Gap 16, Blood Urea Nitrogen 47, Creatinine 1.65, Estimat Glomerular Filtration Rate 41, BUN/Creatinine Ratio 28, Glucose Level 242, Calcium Level 10.0, Phosphorus Level 2.8, Magnesium Level 2.6 09/09/20 03:37: Blood Gas Puncture Site RT RAD, Blood Gas Patient Temperature 36.6, Arterial Blood pH 7.47, Arterial Blood Partial Pressure CO2 39, Arterial Blood Partial Pressure O2 83, Arterial Blood HCO3 28, Arterial Blood Total CO2 29.2, Arterial Blood Oxygen Saturation 96, Arterial Blood Base Excess 4.3, Michael Test YES-POS, Blood Gas Ventilator Setting NO, Blood Gas Inspired Oxygen 100% BIPAP 09/09/20 06:25: Urine Color YELLOW, Urine Clarity CLEAR, Urine pH 6.5, Urine Specific [place] 1.015, Urine Protein 2+, Urine Glucose (UA) NEGATIVE, Urine Ketones NEGATIVE, Urine Nitrite NEGATIVE, Urine Bilirubin NEGATIVE, Urine Urobilinogen 0.2, Urine Leukocyte Esterase NEGATIVE, Urine RBC (Auto) TRACE-I, Urine RBC 2-5, Urine WBC 2-5, Urine Squamous Epithelial Cells 0-2, Urine Crystals NONE, Urine Bacteria NEGATIVE, Urine Casts PRESENT, Urine Hyaline Casts 25-50, Urine Mucus NEGATIVE, Urine Culture Indicated NO 09/09/20 09:09: Triglycerides Level 183 09/09/20 10:08: Blood Gas Puncture Site RT RAD, Blood Gas Patient Temperature 96.2, Arterial Blood pH 7.37, Arterial Blood Partial Pressure CO2 49, Arterial Blood Partial Pressure O2 89, Arterial Blood HCO3 28, Arterial Blood Total CO2 29.7, Arterial Blood Oxygen Saturation 97, Arterial Blood Base Excess 3.0, Michael Test YES-POS, Blood Gas Ventilator Setting YES, Blood Gas Inspired Oxygen 100% 09/09/20 12:16: Glucometer 321 09/09/20 17:28: Glucometer 340 09/09/20 20:10: Glucometer 349 09/09/20 23:33: Glucometer 308 09/10/20 02:30: White Blood Count 11.2, Red Blood Count 4.58, Hemoglobin 13.2, Hematocrit 42, Mean Corpuscular Volume 91, Mean Corpuscular Hemoglobin 29, Mean Corpuscular Hemoglobin Concent 32, Red Cell Distribution Width 13.1, Platelet Count 321, Mean Platelet Volume 10.1, Immature Granulocyte % (Auto) 1, Neutrophils (%) (Auto) 86, Lymphocytes (%) (Auto) 6, Monocytes (%) (Auto) 7, Eosinophils (%) (Auto) 0, Basophils (%) (Auto) 0, Neutrophils # (Auto) 9.7, Lymphocytes # (Auto) 0.7, Monocytes # (Auto) 0.8, Eosinophils # (Auto) 0.0, Basophils # (Auto) 0.0, Immature Granulocyte # (Auto) 0.1, Blood Gas Puncture Site LEFT RADIAL, Blood Gas Patient Temperature 36.4, Arterial Blood pH 7.31, Arterial Blood Partial Pressure CO2 60, Arterial Blood Partial Pressure O2 54, Arterial Blood HCO3 30, Arterial Blood Total CO2 31.5, Arterial Blood Oxygen Saturation 78, Arterial Blood Base Excess 3.7, Michael Test POSITIVE, Blood Gas Ventilator Setting YES, Blood Gas Inspired Oxygen 100, Sodium Level 137, Potassium Level 4.4, Chloride Level 95, Carbon Dioxide Level 23, Anion Gap 19, Blood Urea Nitrogen 74, Creatinine 1.82, Estimat Glomerular Filtration Rate 37, BUN/Creatinine Ratio 41, Glucose Level 331, Calcium Level 9.5, Phosphorus Level 5.6, Magnesium Level 2.6 09/10/20 07:30: Blood Gas Puncture Site LR, Blood Gas Patient Temperature 36.2, Arterial Blood pH 7.32, Arterial Blood Partial Pressure CO2 56, Arterial Blood Partial Pressure O2 220, Arterial Blood HCO3 28, Arterial Blood Total CO2 30.0, Arterial Blood Ox ygen Saturation 100, Arterial Blood Base Excess 2.4, Michael Test YES-POS, Blood Gas Ventilator Setting YES, Blood Gas Inspired Oxygen 100% 09/10/20 08:21: Glucometer 290 09/10/20 11:04: Glucometer 287 09/10/20 15:25: Glucometer 258 09/10/20 19:22: Glucometer 242 09/10/20 23:08: Glucometer 197 09/11/20 01:20: White Blood Count 12.5, Red Blood Count 4.27, Hemoglobin 12.8, Hematocrit 39, Mean Corpuscular Volume 91, Mean Corpuscular Hemoglobin 30, Mean Corpuscular Hemoglobin Concent 33, Red Cell Distribution Width 13.0, Platelet Count 339, Mean Platelet Volume 10.4, Immature Granulocyte % (Auto) 1, Neutrophils (%) (Auto) 84, Lymphocytes (%) (Auto) 8, Monocytes (%) (Auto) 7, Eosinophils (%) (Auto) 0, Basophils (%) (Auto) 0, Neutrophils # (Auto) 10.5, Lymphocytes # (Auto) 1.0, Monocytes # (Auto) 0.8, Eosinophils # (Auto) 0.0, Basophils # (Auto) 0.0, Immature Granulocyte # (Auto) 0.2, Sodium Level 135, Potassium Level 4.0, Chloride Level 97, Carbon Dioxide Level 23, Anion Gap 15, Blood Urea Nitrogen 82, Creatinine 1.49, Estimat Glomerular Filtration Rate 47, BUN/Creatinine Ratio 55, Glucose Level 164, Calcium Level 8.2, Phosphorus Level 3.9, Magnesium Level 2.7, Triglycerides Level 1592 09/11/20 01:53: Blood Gas Puncture Site LEFT RADIAL, Blood Gas Patient Temperature 36, Arterial Blood pH 7.34, Arterial Blood Partial Pressure CO2 55, Arterial Blood Partial Pressure O2 87, Arterial Blood HCO3 30, Arterial Blood Total CO2 31.3, Arterial Blood Oxygen Saturation 97, Arterial Blood Base Excess 4.0, Michael Test POSITIVE, Blood Gas Ventilator Setting YES, Blood Gas Inspired Oxygen 60 09/11/20 03:42: Glucometer 134 09/11/20 08:56: Glucometer 183 09/11/20 11:50: Glucometer 218 09/11/20 16:30: Glucometer 217 09/11/20 19:59: Glucometer 208 09/11/20 23:30: Glucometer 197 09/12/20 03:15: White Blood Count 12.8, Red Blood Count 4.36, Hemoglobin 12.6, Hematocrit 40, Mean Corpuscular Volume 92, Mean Corpuscular Hemoglobin 29, Mean Corpuscular Hemoglobin Concent 31, Red Cell Distribution Width 13.2, Platelet Count 330, Mean Platelet Volume 10.4, Immature Granulocyte % (Auto) 2, Neutrophils (%) (Auto) 79, Lymphocytes (%) (Auto) 10, Monocytes (%) (Auto) 9, Eosinophils (%) (Auto) 0, Basophils (%) (Auto) 0, Neutrophils # (Auto) 10.1, Lymphocytes # (Auto) 1.3, Monocytes # (Auto) 1.2, Eosinophils # (Auto) 0.0, Basophils # (Auto) 0.0, Immature Granulocyte # (Auto) 0.2, Blood Gas Puncture Site RIGHT RADIAL, Blood Gas Patient Temperature 36.3, Arterial Blood pH 7.37, Arterial Blood Partial Pressure CO2 53, Arterial Blood Partial Pressure O2 110, Arterial Blood HCO3 30, Arterial Blood Total CO2 31.9, Arterial Blood Oxygen Saturation 99, Arterial Blood Base Excess 5.2, Michael Test POSITIVE, Blood Gas Ventilator Setting YES, Blood Gas Inspired Oxygen 50, Sodium Level 145, Potassium Level 4.2, Chloride Level 105, Carbon Dioxide Level 27, Anion Gap 13, Blood Urea Nitrogen 92, Creatinine 1.51, Estimat Glomerular Filtration Rate 46, BUN/Creatinine Ratio 61, Glucose Level 192, Calcium Level 8.8, Phosphorus Level 2.9, Magnesium Level 3.3 09/12/20 07:50: Glucometer 166 09/12/20 11:14: Glucometer 227 09/12/20 15:59: Glucometer 269 09/12/20 19:30: Glucometer 264 09/12/20 23:16: Glucometer 270 09/13/20 02:10: White Blood Count 12.5, Red Blood Count 4.18, Hemoglobin 12.1, Hematocrit 40, Mean Corpuscular Volume 96, Mean Corpuscular Hemoglobin 29, Mean Corpuscular Hemoglobin Concent 30, Red Cell Distribution Width 13.3, Platelet Count 317, Mean Platelet Volume 10.5, Immature Granulocyte % (Auto) 3, Neutrophils (%) (Auto) 76, Lymphocytes (%) (Auto) 10, Monocytes (%) (Auto) 12, Eosinophils (%) (Auto) 0, Basophils (%) (Auto) 0, Neutrophils # (Auto) 9.5, Lymphocytes # (Auto) 1.2, Monocytes # (Auto) 1.5, Eosinophils # (Auto) 0.0, Basophils # (Auto) 0.1, Immature Granulocyte # (Auto) 0.3, Sodium Level 150, Potassium Level 4.2, Chloride Level 110, Carbon Dioxide Level 28, Anion Gap 12, Blood Urea Nitrogen 85, Creatinine 1.37, Estimat Glomerular Filtration Rate 51, BUN/Creatinine Ratio 62, Glucose Level 262, Calcium Level 8.8, Phosphorus Level 2.3, Magnesium Level 3.7, Triglycerides Level 264 09/13/20 05:00: Blood Gas Puncture Site RIGHT RADIAL, Blood Gas Patient Temperature 37, Arterial Blood pH 7.39, Arterial Blood Partial Pressure CO2 51, Arterial Blood Partial Pressure O2 82, Arterial Blood HCO3 31, Arterial Blood Total CO2 32.4, Arterial Blood Oxygen Saturation 97, Arterial Blood Base Excess 5.8, Michael Test POSITIVE, Blood Gas Ventilator Setting YES, Blood Gas Inspired Oxygen 45 09/13/20 08:59: Glucometer 173 09/13/20 11:53: Glucometer 251 09/13/20 15:34: Glucometer 266 09/13/20 19:31: Glucometer 253 09/13/20 23:24: Glucometer 234 09/14/20 03:00: White Blood Count 13.2, Red Blood Count 4.14, Hemoglobin 12.2, Hematocrit 40, Mean Corpuscular Volume 96, Mean Corpuscular Hemoglobin 30, Mean Corpuscular He moglobin Concent 31, Red Cell Distribution Width 13.5, Platelet Count 310, Mean Platelet Volume 10.5, Immature Granulocyte % (Auto) 3, Neutrophils (%) (Auto) 77, Lymphocytes (%) (Auto) 9, Monocytes (%) (Auto) 11, Eosinophils (%) (Auto) 0, Basophils (%) (Auto) 0, Neutrophils # (Auto) 10.2, Lymphocytes # (Auto) 1.2, Monocytes # (Auto) 1.5, Eosinophils # (Auto) 0.0, Basophils # (Auto) 0.0, Immature Granulocyte # (Auto) 0.3, Blood Gas Puncture Site RIGHT RADIAL, Blood Gas Patient Temperature 36.3, Arterial Blood pH 7.39, Arterial Blood Partial Pressure CO2 51, Arterial Blood Partial Pressure O2 81, Arterial Blood HCO3 31, Arterial Blood Total CO2 32.5, Arterial Blood Oxygen Saturation 96, Arterial Blood Base Excess 5.9, Michael Test POSITIVE, Blood Gas Ventilator Setting YES, Blood Gas Inspired Oxygen 45, Sodium Level 151, Potassium Level 4.3, Chloride Level 113, Carbon Dioxide Level 28, Anion Gap 10, Blood Urea Nitrogen 81, Creatinine 1.27, Estimat Glomerular Filtration Rate 56, BUN/Creatinine Ratio 64, Glucose Level 255, Calcium Level 8.7, Phosphorus Level 2.0, Magnesium Level 3.9, Procalcitonin 0.09 09/14/20 04:25: Urine Color YELLOW, Urine Clarity CLEAR, Urine pH 6.0, Urine Specific [place] 1.010, Urine Protein NEGATIVE, Urine Glucose (UA) NEGATIVE, Urine Ketones NEGATIVE, Urine Nitrite NEGATIVE, Urine Bilirubin NEGATIVE, Urine Urobilinogen 0.2, Urine Leukocyte Esterase NEGATIVE, Urine RBC (Auto) 3+, Urine RBC 25-50, Urine WBC 0-2, Urine Squamous Epithelial Cells 0-2, Urine Crystals PRESENT, U rine Bacteria TRACE, Urine Casts PRESENT, Urine Hyaline Casts 0-2, Urine Mucus SMALL, Urine Culture Indicated NO 09/14/20 07:50: Glucometer 217 09/14/20 11:21: Glucometer 256 09/14/20 15:28: Glucometer 273 09/14/20 19:31: Glucometer 282 09/14/20 23:19: Glucometer 279 09/15/20 02:00: B-Type Natriuretic Peptide 216.9 09/15/20 03:00: White Blood Count 13.6, Red Blood Count 4.27, Hemoglobin 12.5, Hematocrit 41, Mean Corpuscular Volume 97, Mean Corpuscular Hemoglobin 29, Mean Corpuscular Hemoglobin Concent 30, Red Cell Distribution Width 13.8, Platelet Count 301, Mean Platelet Volume 10.7, Immature Granulocyte % (Auto) 2, Neutrophils (%) (Auto) 81, Lymphocytes (%) (Auto) 7, Monocytes (%) (Auto) 10, Eosinophils (%) (Auto) 0, Basophils (%) (Auto) 0, Neutrophils # (Auto) 11.0, Lymphocytes # (Auto) 1.0, Monocytes # (Auto) 1.4, Eosinophils # (Auto) 0.0, Basophils # (Auto) 0.0, Immature Granulocyte # (Auto) 0.3, Blood Gas Puncture Site RIGHT RADIAL, Blood Gas Patient Temperature 35.9, Arterial Blood pH 7.41, Arterial Blood Partial Pressure CO2 48, Arterial Blood Partial Pressure O2 67, Arterial Blood HCO3 30, Arterial Blood Total CO2 31.6, Arterial Blood Oxygen Saturation 94, Arterial Blood Base Excess 5.3, Michael Test POSITIVE, Blood Gas Ventilator Setting YES, Blood Gas Inspired Oxygen 45, Sodium Level 153, Potassium Level 4.4, Chloride Level 116, Carbon Dioxide Level 28, Anion Gap 9, Blood Urea Nitrogen 70, Creatinine 1.09, Estimat Glomerular Filtration Rate > 60, BUN/Creatinine Ratio 64, Glucose Level 296, Calcium Level 8.6, Phosphorus Level 2.3, Magnesium Level 3.8, Triglycerides Level 226 09/15/20 07:51: Glucometer 253 09/15/20 10:54: Glucometer 226 09/15/20 17:34: Glucometer 196 09/15/20 19:51: Glucometer 205 09/16/20 03:10: Blood Gas Puncture Site RIGHT RADIAL, Blood Gas Patient Temperature 37.8, Arterial Blood pH 7.36, Arterial Blood Partial Pressure CO2 58, Arterial Blood Partial Pressure O2 73, Arterial Blood HCO3 32, Arterial Blood Total CO2 33.5, Arterial Blood Oxygen Saturation 92, Arterial Blood Base Excess 6.7, Michael Test POSITIVE, Blood Gas Ventilator Setting YES, Blood Gas Inspired Oxygen 100% 09/16/20 03:15: White Blood Count 14.5, Red Blood Count 4.21, Hemoglobin 12.2, Hematocrit 41, Mean Corpuscular Volume 98, Mean Corpuscular Hemoglobin 29, Mean Corpuscular He moglobin Concent 30, Red Cell Distribution Width 14.1, Platelet Count 298, Mean Platelet Volume 10.4, Immature Granulocyte % (Auto) 2, Neutrophils (%) (Auto) 84, Lymphocytes (%) (Auto) 7, Monocytes (%) (Auto) 6, Eosinophils (%) (Auto) 1, Basophils (%) (Auto) 0, Neutrophils # (Auto) 12.2, Lymphocytes # (Auto) 1.0, Monocytes # (Auto) 0.9, Eosinophils # (Auto) 0.2, Basophils # (Auto) 0.1, Immature Granulocyte # (Auto) 0.2, Neutrophils % (Manual) 87, Lymphocytes % (Manual) 7, Monocytes % (Manual) 3, Eosinophils % (Manual) 1, Reactive Lymphocytes 2, Blood Morphology Comment NORMAL, Sodium Level 156, Potassium Level 3.7, Chloride Level 120, Carbon Dioxide Level 26, Anion Gap 10, Blood Urea Nitrogen 52, Creatinine 0.82, Estimat Glomerular Filtration Rate > 60, BUN/ Creatinine Ratio 63, Glucose Level 158, Calcium Level 7.6, Phosphorus Level 2.0, Magnesium Level 2.9 09/16/20 07:52: Glucometer 131 09/16/20 11:01: Glucometer 156 09/16/20 15:36: Glucometer 180 09/16/20 19:34: Glucometer 174 09/16/20 22:32: Glucometer 219 09/17/20 01:50: White Blood Count 16.0, Red Blood Count 3.85, Hemoglobin 11.1, Hematocrit 39, Mean Corpuscular Volume 100, Mean Corpuscular Hemoglobin 29, Mean Corpuscular Hemoglobin Concent 29, Red Cell Distribution Width 14.1, Platelet Count 235, Mean Platelet Volume 11.3, Immature Granulocyte % (Auto) 1, Neutrophils (%) (Auto) 81, Lymphocytes (%) (Auto) 11, Monocytes (%) (Auto) 5, Eosinophils (%) (Auto) 2, Basophils (%) (Auto) 0, Neutrophils # (Auto) 13.0, Lymphocytes # (Auto) 1.7, Monocytes # (Auto) 0.8, Eosinophils # (Auto) 0.3, Basophils # (Auto) 0.0, Immature Granulocyte # (Auto) 0.2, Blood Gas Puncture Site LEFT RADIAL, Blood Gas Patient Temperature 37.3, Arterial Blood pH 7.33, Arterial Blood Partial Pressure CO2 56, Arterial Blood Partial Pressure O2 80, Arterial Blood HCO3 29, Arterial Blood Total CO2 30.2, Arterial Blood Oxygen Saturation 94, Arterial Blood Base Excess 3.2, Micahel Test YES-POS, Blood Gas Ventilator Setting YES, Blood Gas Inspired Oxygen 80%, Sodium Level 149, Potassium Level 4.4, Chloride Level 115, Carbon Dioxide Level 26, Anion Gap 8, Blood Urea Nitrogen 65, Creatinine 1.27, Estimat Glomerular Filtration Rate 56, BUN/Creatinine Ratio 51, Glucose Level 270, Calcium Level 7.4, Phosphorus Level 2.7, Magnesium Level 3.2, Triglycerides Level 99 09/17/20 07:42: Glucometer 190 09/17/20 12:48: Glucometer 170 09/17/20 15:28: Glucometer 191 09/17/20 17:09: Vancomycin Level Trough 28.8 09/17/20 20:38: Glucometer 220 09/17/20 23:06: Glucometer 229 09/18/20 04:05: White Blood Count 14.8, Red Blood Count 3.32, Hemoglobin 9.6, Hematocrit 34, Mean Corpuscular Volume 102, Mean Corpuscular Hemoglobin 29, Mean Corpuscular Hemoglobin Concent 28, Red Cell Distribution Width 14.5, Platelet Count 179, Mean Platelet Volume 11.6, Immature Granulocyte % (Auto) 1, Neutrophils (%) (Auto) 88, Lymphocytes (%) (Auto) 5, Monocytes (%) (Auto) 4, Eosinophils (%) (Auto) 2, Basophils (%) (Auto) 0, Neutrophils # (Auto) 13.0, Lymphocytes # (Auto) 0.7, Monocytes # (Auto) 0.6, Eosinophils # (Auto) 0.4, Basophils # (Auto) 0.0, Immature Granulocyte # (Auto) 0.1, Sodium Level 151, Potassium Level 5.4, Chloride Level 115, Carbon Dioxide Level 26, Anion Gap 10, Blood Urea Nitrogen 91, Creatinine 2.32, Estimat Glomerular Filtration Rate 28, BUN/Creatinine Ratio 39, Glucose Level 239, Calcium Level 8.0, Phosphorus Level 5.5, Magnesium Level 3.6 09/18/20 07:13: Blood Gas Puncture Site RT RAD, Blood Gas Patient Temperature 95, Arterial Blood pH 7.30, Arterial Blood Partial Pressure CO2 50, Arterial Blood Partial Pressure O2 58, Arterial Blood HCO3 24, Arterial Blood Total CO2 26.0, Arterial Blood Oxygen Saturation 92, Arterial Blood Base Excess -1.6, Michael Test YES-POS, Blood Gas Ventilator Setting YES, Blood Gas Inspired Oxygen 75% 09/18/20 07:50: Glucometer 208 09/18/20 08:06: Vancomycin Level Trough 20.5 Discharge Home Medications: Active Scripts Active Reported [Airborne Elderberry] 2 Each PO DAILY Bactrim Ds Tablet (Sulfamethoxazole/Trimethoprim) 1 Each Tablet 1 Each PO HS Novolin R (Insulin Regular, Human) 100 Unit/1 Ml Vial 15 Unit SQ BID [place] Plus Night Cap (Dm/PE/Acetaminophen/Doxylamine) 1 Each Capsule 2 Each PO HS Mucinex (Guaifenesin) 600 Mg Tab.er.12h 1,200 Mg PO DAILY TAKES 2 (600MG) TABLETS Zyrtec-D Tablet (Cetirizine HCl/Pseudoephedrine) 1 Each Tab.er.12h 1 Each PO DAILY Vitamin D3 (Cholecalciferol (Vitamin D3)) 25 Mcg Tablet 25 Mcg PO DAILY Magnesium (Magnesium Oxide) 400 Mg Capsule 400 Mg PO BID Cyclobenzaprine HCl 10 Mg Tablet 10 Mg PO HS PRN Flomax (Tamsulosin HCl) 0.4 Mg Cap 0.4 Mg PO DAILY Oxybutynin Chloride ER (Oxybutynin Chloride) 10 Mg Tab.er.24 10 Mg PO HS Diltiazem ER (Diltiazem HCl) 120 Mg Capsule.er 120 Mg PO DAILY Metolazone 10 Mg Tablet 10 Mg PO DAILY Potassium Chloride 10 Meq Capsule.er 50 Meq PO QID TAKES 5 (10MEQ) TABLETS Vitamin C (Ascorbate Calcium) 500 Mg Tablet 500 Mg PO DAILY Azo Standard (Phenazopyridine HCl) 95 Mg Tablet 190 Mg PO BID TAKES 2 (95MG) TABLETS Aspirin 81 Mg Tab.chew 81 Mg PO DAILY Furosemide 80 Mg Tablet 80 Mg PO BID Proair Hfa (Albuterol Sulfate) 1 Puff Puff 2 Puff INH Q4H PRN Lactulose 10 Gm/15 Ml Solution 15 Ml PO DAILY PRN Finasteride 5 Mg Tablet 5 Mg PO DAILY Levemir Flextouch (Insulin Detemir) 100 Unit/1 Ml Insuln.pen 40 Units SC BID Spironolactone 25 Mg Tablet 25 Mg PO BID Humalog Kwikpen (Insulin Lispro) 100 Unit/1 Ml Insuln.pen 50 Units SQ TIDWM Montelukast Sodium 10 Mg Tablet 10 Mg PO HS Rosuvastatin Calcium 5 Mg Tablet 5 Mg PO HS Albuterol Sulfate 2.5 Mg/3 Ml Vial.neb 2.5 Mg NEB Q4H PRN Levothyroxine Sodium 25 Mcg Tablet 25 Mcg PO DAILY Instructions to patient/family Please see electronic discharge instructions given to patient. Diagnosis/Problems Diagnosis/Problems (1) Acute respiratory failure due to COVID-19 (2) COPD (chronic obstructive pulmonary disease) with acute bronchitis Status: Acute (3) Congestive heart failure with preserved LV function, NYHA class 3 Status: Acute (4) Obesity hypoventilation syndrome Status: Chronic (5) Chronic atrial fibrillation Status: Chronic (6) JOSE MANUEL (obstructive sleep apnea) Status: Chronic (7) Chronic kidney disease Status: Chronic (8) Essential (primary) hypertension Status: Chronic (9) CAD (coronary artery disease) Status: Chronic (10) Anemia Status: Acute (11) Diabetes mellitus Status: Chronic (12) Hypothyroidism Status: Chronic CHAO APT DO Sep 18, 2020 13:26
--- NOTE | 2020-09-18 14:11 | NUR ---
Post mortem care provided at this time by this RN and NIKO Luong.
--- NOTE | 2020-09-18 15:45 | NUR ---
[facility] Body released to [facility] staff at this time. Facesheet given to staff. Personal belongings with family at this time.
== END 2020-09-18 17:51 | disposition expired | DRG 207 ==
LOC: 4TH 21:50 → ICU 09-07 21:29
PROVIDERS: ADMIT Internal Medicine; ATTEND Internal Medicine
PROC: 5A09457 Assistance with Respiratory Ventilation, 24-96 Consecutive Hours, Continuous Positive Airway Pressure (ICD-10-PCS; 2020-09-06)
PROC: XW13325 Transfusion of Convalescent Plasma (Nonautologous) into Peripheral Vein, Percutaneous Approach, New Technology Group 5 (ICD-10-PCS; 2020-09-06)
PROC: 5A1955Z Respiratory Ventilation, Greater than 96 Consecutive Hours (ICD-10-PCS; principal; 2020-09-09)
PROC: 0BH17EZ Insertion of Endotracheal Airway into Trachea, Via Natural or Artificial Opening (ICD-10-PCS; 2020-09-09)
DX: U07.1 COVID-19 (principal); J12.82 Pneumonia due to coronavirus disease 2019; J80 Acute respiratory distress syndrome; J15.9 Unspecified bacterial pneumonia; J44.1 Chronic obstructive pulmonary disease with (acute) exacerbation; J44.0 Chronic obstructive pulmonary disease with (acute) lower respiratory infection; I13.0 Hypertensive heart and chronic kidney disease with heart failure and stage 1 through stage 4 chronic kidney disease, or unspecified chronic kidney disease; N17.9 Acute kidney failure, unspecified; I50.32 Chronic diastolic (congestive) heart failure; I48.21 Permanent atrial fibrillation; E87.0 Hyperosmolality and hypernatremia; E66.2 Morbid (severe) obesity with alveolar hypoventilation; Z68.43 Body mass index [BMI] 50.0-59.9, adult; L03.116 Cellulitis of left lower limb; L03.115 Cellulitis of right lower limb; N39.0 Urinary tract infection, site not specified; Z51.5 Encounter for palliative care; Z66 Do not resuscitate; J20.9 Acute bronchitis, unspecified; E11.22 Type 2 diabetes mellitus with diabetic chronic kidney disease; E11.65 Type 2 diabetes mellitus with hyperglycemia; N18.30 Chronic kidney disease, stage 3 unspecified; E11.40 Type 2 diabetes mellitus with diabetic neuropathy, unspecified; I27.81 Cor pulmonale (chronic); E03.9 Hypothyroidism, unspecified; M19.91 Primary osteoarthritis, unspecified site; E78.00 Pure hypercholesterolemia, unspecified; E83.39 Other disorders of phosphorus metabolism; E78.1 Pure hyperglyceridemia; N40.0 Benign prostatic hyperplasia without lower urinary tract symptoms; I25.10 Atherosclerotic heart disease of native coronary artery without angina pectoris; E87.6 Hypokalemia; I07.1 Rheumatic tricuspid insufficiency; I87.2 Venous insufficiency (chronic) (peripheral); I25.2 Old myocardial infarction; Z79.4 Long term (current) use of insulin; Z95.1 Presence of aortocoronary bypass graft; Z95.5 Presence of coronary angioplasty implant and graft; Z87.891 Personal history of nicotine dependence; Z87.01 Personal history of pneumonia (recurrent); Z79.82 Long term (current) use of aspirin; Z79.891 Long term (current) use of opiate analgesic; Z79.52 Long term (current) use of systemic steroids; Z88.6 Allergy status to analgesic agent; Z82.49 Family history of ischemic heart disease and other diseases of the circulatory system; Z83.3 Family history of diabetes mellitus; Z82.5 Family history of asthma and other chronic lower respiratory diseases; Z73.0 Burn-out
CPT/HCPCS: 36415; 36569; 36600; 71045; 76937; 80048; 80053; 80202; 81000; 82805; 82962; 83735; 83880; 84100; 84145; 84478; 85007; 85025; 85027; 85379; 86900; 86901; 87040; 87070; 87081; 87205; 94002; 94003; 94640; 94660; 94760; 94799

== ENCOUNTER → 2020-09-05 | Outpatient (CLI) | payer OTHER, MEDICARE ==
[~2020-09-05] MED LIST changes: +ASCO-262 PO; +ASPI-1238 PO; -ASPI-983 PO; +CHOL10002 PO; -CLIN150C17 PO; +CLIN150C18 PO; +CYCL10TA9 PO; +DILT120C85 PO; +DM/P1CAP51 PO; -FUROSEMIDE 40 MG/4 ML INJ (LASIX) IV NR; -FUROSEMIDE 40 MG/4 ML INJ (LASIX) IV ONE; -FUROSEMIDE 40 MG/4 ML INJ (LASIX) ONE; +GUAI600T43 PO; +INSU100V31 SQ; +MAGN400C PO; +METO10TA7 PO; -MONT10TA26 PO; +MONT10TA97 PO; +OXYB10TA29 PO; -PANT40TA3 PO; +PANT40TA52 PO; +PHEN95TA30 PO; +POTA10CA43 PO; +SULF1TAB34 PO; +SULF1TAB35 PO; +[UNRECOGNIZED DRUG - OTHER] PO
== END ==
LOC: LABNPT 17:35
PROVIDERS: ATTEND Nurse Practitioner Psychiatric/Mental Health
DX: U07.1 COVID-19 (principal)
CPT/HCPCS: 87635